=== PATIENT | female | born 1960 | race Caucasian/White ===

== ENCOUNTER 2022-08-25 07:00 | Outpatient (OUT) | payer MEDICARE, OTHER, SELFPAY ==
--- NOTE | 2022-08-25 07:06 | MR_ITS ---
The [address] [address] Patient Name: FEROZ DUTTA MRN: [id number] date: 1960 Sex: F Assigned Patient Location: MRI Current Patient Location: MRI Accession/Order Number: [id number] Exam Date: 08/25/2022 07:15 Report Date: 08/25/2022 12:49 At the request of: EZEKIEL DERAS Procedure: MR hip LT wo/w con HISTORY: Left hip pain since a fall on 07/29/2022. MRI left hip without and with contrast 08/25/2022. COMPARISON: Radiographs of the left hip 07/29/2022, CT scan left hip 07/31/2022 and whole-body bone scan 08/09/2022. TECHNIQUE: Multiple planar, multisequence MR images of the pelvis and left hip were obtained prior to and following the intravenous administration of gadolinium. FINDINGS: The bone marrow signal intensity is age appropriate. There is no MRI evidence of avascular necrosis or fracture of the right hip. The uterus is not visualized compatible with prior hysterectomy. There is a large serpiginous area of abnormal decreased T1 and increased STIR signal intensity within the subchondral bone of the majority of the anterosuperior and superior aspect of the left femoral head and this involves 100% of the weightbearing portion of the left femoral head. There is a large amount of diffuse bone marrow edema-like signal throughout the left femoral head/neck and heterogeneous enhancement in these regions. No significant collapse of the articular surface of the femoral head is seen. There appears to be a probable small nondisplaced tear of the anterior labrum of the left hip. However, no significant chondromalacia of the left hip is seen. There is a small joint effusion of the left hip and there is an enhancing synovitis of this joint effusion. There is a small amount of soft tissue edema and enhancement along the lateral aspect of the left greater trochanter. However, no significant gluteal tendinopathy is seen. No iliopsoas bursitis is identified. IMPRESSION: 1. 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 These findings account for the abnormalities seen on the prior CT scan of the left hip and the recent bone scan of 08/09/2022. However, no significant collapse of the articular surface of the femoral head is seen and there is no significant degenerative change of the left hip joint identified at this time. 2. Possible mild left greater trochanteric bursitis without evidence of significant gluteal tendinopathy. 3. There is no MRI evidence of avascular necrosis or fracture of the right hip. This report was placed in the wet read folder to be faxed and called to the referring clinician's office (Ezekiel Deras) on the afternoon of 08/25/2022 shortly after the study was presented for interpretation. Electronically authenticated by: EZEKIEL DAVIDSON Date: 08/25/2022 12:49
== END 2022-08-25 07:01 ==
LOC: MRI 07:01
PROVIDERS: PCP Family Medicine; Visit Provider Family Medicine
DX: M25.552 Pain in left hip (principal); M87.9 Osteonecrosis, unspecified
CPT/HCPCS: 73723; A9575

== ENCOUNTER 2022-08-29 18:23 | Outpatient (RCR) | payer MEDICARE, OTHER, SELFPAY | END 2022-09-22 23:59 | disposition home or self-care (01) | LOC: MM 18:23 | PROVIDERS: PCP Internal Medicine; Visit Provider Internal Medicine | DX: Z51.81 Encounter for therapeutic drug level monitoring (principal); Z79.01 Long term (current) use of anticoagulants; I82.409 Acute embolism and thrombosis of unspecified deep veins of unspecified lower extremity ==

== ENCOUNTER 2022-09-21 09:21 | Emergency (ER) | payer MEDICARE, OTHER, SELFPAY ==
[2022-09-21 09:24] VITALS: BP 135/91; PULSE 78; RESP 17; TEMP 36.7; O2SAT 98; BMI 21.9
[2022-09-21 09:25] VITALS: BP 135/91; O2SAT 98
--- NOTE | 2022-09-21 10:02 | CT_ITS ---
[address] [address] Patient Name: FEROZ DUTTA MRN: [id number] date: 1960 Sex: F Assigned Patient Location: ER Current Patient Location: ER Accession/Order Number: [id number] Exam Date: 09/21/2022 11:00 Report Date: 09/21/2022 11:37 At the request of: RENATO DOMINGUEZ Procedure: CT cervical spine wo con EXAM: CT cervical spine wo con HISTORY: neck pain, cervical radiculopathy COMPARISON: 02/21/2022 TECHNIQUE: Axial CT images were obtained of the cervical spine without intravenous contrast. Multiplanar reconstructions were performed. FINDINGS: No acute fracture. There is a slight retrolisthesis of C4 on C5, which is stable from the prior exam. Postoperative changes of an anterior cervical fusion present spanning C5-C7. There is severe bilateral neural foraminal stenosis at C5-C6 due to uncovertebral hypertrophy. There is moderate degenerative disc disease at C4-5 with bilateral uncovertebral hypertrophy causing moderate left and mild right neural foraminal stenosis. Unremarkable appearance of the paraspinal soft tissues. IMPRESSION: 1. No acute abnormality. 2. Chronic postoperative changes of an anterior cervical fusion spanning C5-C7. 3. Stable retrolisthesis of C4 on C5. 4. Severe bilateral neural foraminal stenosis at C5-C6, and moderate left and mild right neural foraminal stenosis at C4-C5. Electronically authenticated by: DEBBIE WATTS Date: 09/21/2022 11:37
--- NOTE | 2022-09-21 10:02 | XR_ITS ---
The [address] [address] Patient Name: FEROZ DUTTA MRN: [id number] date: 1960 Sex: F Assigned Patient Location: ER Current Patient Location: ER Accession/Order Number: [id number] Exam Date: 09/21/2022 11:00 Report Date: 09/21/2022 11:34 At the request of: RENATO DOMINGUEZ Procedure: XR acute abdomen series EXAMINATION: XR acute abdomen series 09/21/2022 8:30 AM PDT HISTORY: vomiting COMPARISONS: None. FINDINGS: Chest findings: Lines/tubes/other: None. Heart and mediastinum: Within expected limits. Bones: No acute osseous abnormality. Lungs: Small benign calcified granuloma in the right base. No pulmonary edema or evidence of pneumonia. Pleura: There is no significant pleural effusion or pneumothorax. Other: None. Abdominal findings: Nonobstructive bowel gas pattern. No pneumoperitoneum, pneumatosis, or portal venous gas. There are a view calcifications project over the abdomen. A left upper quadrant calcification may represent a small kidney stone. Stool burden is average. An IVC filter is present. Bilateral iliac stents. There are surgical clips in the right upper quadrant. IMPRESSION: No acute abnormality in the chest or abdomen. Electronically authenticated by: YA ROBLEDO Date: 09/21/2022 11:34
--- NOTE | 2022-09-21 10:40 | ED_ITS ---
HPI - General Adult General Chief complaint: Neck Pain/Injury Stated complaint: neck pain Time Seen by Provider: 09/21/22 09:33 Source: patient Mode of arrival: Wheelchair Limitations: no limitations History of Present Illness HPI narrative: patient complains of both neck/left trapezius pain and my gastroenteritis is acting up . She has chronic neck pain and underwent cervical spine fusion in the past. She had an acute flare and saw Dr viramontes in the office. He gave her IM Toradol and IM Solumedrol and she initially felt better but now the pain is back. She localizes it to the left posterolateral neck and into the left trapezius. No recent injury. No fever, chills or cough. She also complained that she developed nausea, vomiting and diarrhea last night. She said this happens a lot to me . No known ill exposures. No urinary symptoms. No blood in urine or stool. She ate toast this morning and was able to keep it down . Related Data Previous Rx's Medication Instructions Recorded methylprednisolone 4 mg tablets in 4 mg PO DAILY #21 ea 09/21/22 a dose pack (Medrol (Franco)) ondansetron 4 mg disintegrating 4 mg PO Q6H PRN nausea and 09/21/22 tablet vomiting #20 tabs orphenadrine citrate 100 mg 100 mg PO Q12H PRN neck pain #20 09/21/22 tablet,extended release tabs Allergies Allergy/AdvReac Type Severity Reaction Status Date / Time prochlorperazine Allergy Intermediate Unknown Verified 09/21/22 09:32 [From Compazine] ivp Allergy Severe Rash Uncoded 09/21/22 09:[facility] History Smoking status: Never smoker Exam Narrative Exam Narrative: Nurses notes and vital signs reviewed and patient is not hypoxic. afebrile General: Well-appearing and in no apparent distress. Skin: Warm, dry, no pallor noted. No rash. Head: Normocephalic, atraumatic. Neck: Supple, no lymphadenopathy. Diffuse tenderness throughout the left posterolateral neck and left trapezius. Eye: Pupils are equal, round and EOMI. No scleral icterus. Cardiovascular: Regular Rate and Rhythm without murmur, gallop or rub. Respiratory: No accessory muscle use or respiratory distress. Lungs are clear to auscultation, no wheezing, rales or rhonchi Back: No midline thoracic or lumbar vertebral tenderness. Musculoskeletal: normal ROM, no calf or popliteal tenderness, no lower extr emity edema/swelling. Ecchymosis without tenderness noted to the medial right ankle GI: Abdomen is soft, non-distended. Normal bowel sounds. Diffuse tenderness to palpation. No rebound, guarding, or rigidity noted. Neurological: A&O x4. No cranial nerve dysfunction observed. No truncal ataxia. Moves all extremities. Sensation intact. Psychiatric: Cooperative and interactive. Normal mood and affect. Constitutional Vital Signs - 24 hr 09/21/22 09:24 Temperature 98.0 F Pulse Rate [Monitor] 78 Respiratory Rate 17 Blood Pressure [Right Arm] 135/91 H Pulse Oximetry 98 Oxygen Delivery Method Room Air Course Vital Signs Vital signs: Vital Signs Temperature 98.0 F 09/21/22 09:24 Pulse Rate 78 09/21/22 09:24 Respiratory Rate 17 09/21/22 09:24 Blood Pressure 135/91 H 09/21/22 09:24 Pulse Oximetry 98 09/21/22 09:24 Oxygen Delivery Method Room Air 09/21/22 09:24 Temperature 98.0 F 09/21/22 09:24 Pulse Rate 78 09/21/22 09:24 Respiratory Rate 17 09/21/22 09:24 Blood Pressure 135/91 H 09/21/22 09:24 Pulse Oximetry 98 09/21/22 09:24 Oxygen Delivery Method Room Air 09/21/22 09:24 Medical Decision Making MDM Narrative Medical decision making narrative: Patient ordered to undergo CT scan of the cervical spine alone with xrays of the abdomen and chest. Blood and urine testing was also ordered. We got a urine sample but were unable to establish a peripheral IV. She was sent for CT cervical spine and xrays of the abdomen and chest. Phlebotomy once again tried to get blood samples for testing, including INR because of the ankle eccymosis. She received IM Toradol, IM Solu-medrol and ODT Zofran. CT revealed chronic changes and continued foraminal stenosis. Abd XRays were unremarkable. CBC normal. Urine negative. I spoke with Dr viramontes about his patient. He asked that we discharge the patient home and she can come to the office tomorrow if she needs more pain meds. Patient will be prescribed zofran, norflex and medrol dose pack. Discussed clear liquid diet until nausea and abdominal pain resolves. Close follow up with Dr Viramontes discussed. Lab Data Lab results reviewed: Yes I reviewed the patient's lab results Labs: Lab Results 09/21/22 Range/Units 11:34 WBC 8.9 (4.0-11.0) 10^3/uL RBC 3.63 L (4.20-5.40) 10^6/uL Hgb 11.8 L (12.0-16.0) g/dL Hct 35.4 L (36.0-48.0) % MCV 97.5 (81.0-99.0) fL MCH 32.5 (26.7-34.0) pg MCHC 33.3 (29.9-35.2) g/dL RDW 17.7 H (11.0-15.0) % Plt Count 252 (150-450) 10^3/uL MPV 10.8 (9.5-13.5) fL Neut % (Auto) 77.3 H (43.0-75.0) % Lymph % (Auto) 12.4 L (20.5-60.0) % [place] % (Auto) 8.9 (1.7-12.0) % Eos % (Auto) 0.3 L (0.9-7.0) % Baso % (Auto) 0.8 (0.2-2.0) % Neut # (Auto) 6.9 H (1.4-6.5) 10^3/uL Lymph # (Auto) 1.1 L (1.2-3.8) 10^3/uL [place] # (Auto) 0.8 (0.3-0.8) 10^3/uL Eos # (Auto) 0.0 (0.0-0.7) 10^3/uL Baso # (Auto) 0.1 (0.0-0.1) 10^3/uL Abs Immat Gran (auto) 0.03 (0.00-0.03) 10^3/uL Imm/Tot Granulo (auto) 0.3 (0.0-0.5) % PT 16.1 H (9.0-11.6) sec INR 1.56 Sodium 139 (136-145) mmol/L Potassium 4.0 (3.5-5.1) mmol/L Chloride 104 (98-107) mmol/L Carbon Dioxide 26.7 (21.0-32.0) mmol/L Anion Gap 12.3 BUN 22.0 H (7.0-18.0) mg/dL Creatinine 0.75 (0.55-1.02) mg/dL Est GFR ( Amer) >60 (>=60) Est GFR (Non-Af Amer) >60 (>=60) BUN/Creatinine Ratio 29.3 Glucose 85 (74-106) mg/dL Calcium 8.5 (8.5-10.1) mg/dL Total Bilirubin 0.2 (0.2-1.0) mg/dL AST 33 (15-37) U/L ALT 32 (14-59) U/L Alkaline Phosphatase 137 H (46-116) U/L Total Protein 7.2 (6.4-8.2) g/dL Albumin 3.1 L (3.4-5.0) g/dL Globulin 4.1 g/dL Albumin/Globulin Ratio 0.8 Lipase 249.0 (73.0-393.0) U/L Urine Color Lt. yellow (YELLOW) Urine Clarity Clear (CLEAR) Urine pH 6.5 (5.0-9.0) Ur Specific [place] <=1.005 A (1.005-1.025) Urine Protein Negative (NEG/TRACE) mg/dL Urine Glucose (UA) Negative (NEGATIVE) mg/dL Urine Ketones Negative (NEGATIVE) mg/dL Urine Occult Blood Negative (NEGATIVE) Urine Nitrite Negative (NEGATIVE) Urine Bilirubin Negative (NEGATIVE) Urine Urobilinogen 0.2 (0.2-1.0) EU/dL Ur Leukocyte Esterase Negative (NEGATIVE) Imaging Data Abdominal x-ray: Radiologist's impression: Patient Name: FEROZ DUTTA MRN: [id number] date: 1960 Sex: F Assigned Patient Location: ER Current Patient Location: ER Accession/Order Number: [id number] Exam Date: 09/21/2022 11:00 Report Date: 09/21/2022 11:34 At the request of: RENATO DOMINGUEZ Procedure: XR acute abdomen series EXAMINATION: XR acute abdomen series 09/21/2022 8:30 AM PDT HISTORY: vomiting COMPARISONS: None. FINDINGS: Chest findings: Lines/tubes/other: None. Heart and mediastinum: Within expected limits. Bones: No acute osseous abnormality. Lungs: Small benign calcified granuloma in the right base. No pulmonary edema or evidence of pneumonia. Pleura: There is no significant pleural effusion or pneumothorax. Other: None. Abdominal findings: Nonobstructive bowel gas pattern. No pneumoperitoneum, pneumatosis, or portal venous gas. There are a view calcifications project over the abdomen. A left upper quadrant calcification may represent a small kidney stone. Stool burden is average. An IVC filter is present. Bilateral iliac stents. There are surgical clips in the right upper quadrant. IMPRESSION: No acute abnormality in the chest or abdomen. Electronically authenticated by: YA ROBLEDO Date: 09/21/2022 11:34 ct cervical spine: Radiologist's impression: Patient Name: FEROZ DUTTA MRN: [facility]:[id number] date: 1960 Sex: F Assigned Patient Location: ER Current Patient Location: ER Accession/Order Number: [id number] Exam Date: 09/21/2022 11:00 Report Date: 09/21/2022 11:37 At the request of: RENATO DOMINGUEZ Procedure: CT cervical spine wo con EXAM: CT cervical spine wo con HISTORY: neck pain, cervical radiculopathy COMPARISON: 02/21/2022 TECHNIQUE: Axial CT images were obtained of the cervical spine without intravenous contrast. Multiplanar reconstructions were performed. FINDINGS: No acute fracture. There is a slight retrolisthesis of C4 on C5, which is stable from the prior exam. Postoperative changes of an anterior cervical fusion present spanning C5-C7. There is severe bilateral neural foraminal stenosis at C5-C6 due to uncovertebral hypertrophy. There is moderate degenerative disc disease at C4-5 with bilateral uncovertebral hypertrophy causing moderate left and mild right neural foraminal stenosis. Unremarkable appearance of the paraspinal soft tissues. IMPRESSION: 1. No acute abnormality. 2. Chronic postoperative changes of an anterior cervical fusion spanning C5-C7. 3. Stable retrolisthesis of C4 on C5. 4. Severe bilateral neural foraminal stenosis at C5-C6, and moderate left and mild right neural foraminal stenosis at C4-C5. Electronically authenticated by: DEBBIE WATTS Date: 09/21/2022 11:37 Discharge Plan Discharge Chief Complaint: Neck Pain/Injury Clinical Impression: Cervical radiculopathy, Neck pain, Nausea & vomiting Patient Disposition: Home, Self-Care Time of Disposition Decision: 13:01 Prescriptions / Home Meds: New ondansetron 4 mg tablet,disintegrating 4 mg PO Q6H PRN (Reason: nausea and vomiting) Qty: 20 0RF orphenadrine citrate 100 mg tablet extended release 100 mg PO Q12H PRN (Reason: neck pain) Qty: 20 0RF methylprednisolone [Medrol (Franco)] 4 mg tablets,dose pack 4 mg PO DAILY Qty: 21 0RF Rx Instructions: follow directions on the package regarding dosing Instructions: Acute Nausea and Vomiting (ED), Cervical Radiculopathy (ED), Neck Pain (ED) Stand Alone Forms: Portal Instructions Referrals: Travis Viramontes MD [Primary Care Provider] - 1 week
[2022-09-21 11:43] LABS: Basophils Absolute Auto 0.1 10^3/uL (0.0-0.1); Basophils Percent Auto 0.8 % (0.2-2.0); Bilirubin Urine NEGATIVE (NEGATIVE); Blood Urine NEGATIVE (NEGATIVE); Clarity Urine CLEAR (CLEAR); Color Urine LT. YELLOW (YELLOW); Eosinophils Percent Auto 0.3 % (0.9-7.0); Glucose Urine UA NEGATIVE (NEGATIVE); Hematocrit 35.4 % (36.0-48.0); Hemoglobin 11.8 g/dL (12.0-16.0); Immature Granulocytes Abs Auto 0.03 10^3/uL (0.00-0.03); Immature Granulocytes Pct Auto 0.3 % (0.0-0.5); Ketones Urine NEGATIVE (NEGATIVE); Leukocyte Esterase Urine NEGATIVE (NEGATIVE); Lymphocytes Absolute Auto 1.1 10^3/uL (1.2-3.8); Lymphocytes Percent Auto 12.4 % (20.5-60.0); Mean Corpuscular HGB Conc 33.3 g/dL (29.9-35.2); Mean Corpuscular Hemoglobin 32.5 pg (26.7-34.0); Mean Corpuscular Volume 97.5 fL (81.0-99.0); Mean Platelet Volume 10.8 fL (9.5-13.5); Monocytes Absolute Auto 0.8 10^3/uL (0.3-0.8); Monocytes Percent Auto 8.9 % (1.7-12.0); Neutrophils Absolute Auto 6.9 10^3/uL (1.4-6.5); Neutrophils Percent Auto 77.3 % (43.0-75.0); Nitrite Urine NEGATIVE (NEGATIVE); Platelet Count 252 10^3/uL (150-450); Protein Urine NEGATIVE (NEG/TRACE); Red Blood Count 3.63 10^6/uL (4.20-5.40); Red Cell Distribution Width 17.7 % (11.0-15.0); Specific Gravity Urine <=1.005 (1.005-1.025); Urobilinogen Urine 0.2 EU/dL (0.2-1.0); White Blood Count 8.9 10^3/uL (4.0-11.0); pH Urine 6.5 (5.0-9.0)
[2022-09-21 11:44] LABS: Urine Microscopic Indicated NO
[2022-09-21] MEDS: KETOROLAC TROMETHAMINE 60 MG/2 ML VIAL IM (11:48)
[2022-09-21] MEDS: METHYLPREDNISOLONE SOD SUCC PF 125 MG/2 ML VIAL IVP (11:48)
[2022-09-21] MEDS: ONDANSETRON 4 MG RAPDIS TABLET SL (11:48)
[2022-09-21 11:59] LABS: Alanine Aminotransferase 32 U/L (14-59); Albumin Globulin Ratio 0.8; Albumin Level 3.1 g/dL (3.4-5.0); Alkaline Phosphatase 137 U/L (46-116); Anion Gap 12.3; Aspartate Amino Transferase 33 U/L (15-37); BUN Creatinine Ratio 29.3; Bilirubin Total 0.2 mg/dL (0.2-1.0); Calcium 8.5 mg/dL (8.5-10.1); Carbon Dioxide 26.7 mmol/L (21.0-32.0); Chloride 104 mmol/L (98-107); Estimated GFR (African America >60 (>=60); Estimated GFR (Non-African Ame >60 (>=60); Globulin 4.1 g/dL; Glucose 85 mg/dL (74-106); Sodium 139 mmol/L (136-145); Total Protein 7.2 g/dL (6.4-8.2)
[2022-09-21 12:07] LABS: INR 1.56; Prothrombin Time 16.1 sec (9.0-11.6)
[2022-09-21 12:55] VITALS: BP 138/90; O2SAT 100
[2022-09-21] MEDS: HYDROMORPHONE HCL 1 MG/ML CARTRIDGE IM (12:55)
== END 2022-09-21 13:05 | disposition home or self-care (01) ==
PROVIDERS: Emergency Provider Emergency Medicine; PCP Family Medicine
DX: M54.12 Radiculopathy, cervical region (principal); M54.2 Cervicalgia; R11.2 Nausea with vomiting, unspecified; M48.02 Spinal stenosis, cervical region; R53.1 Weakness
CPT/HCPCS: 36415; 72125; 74022; 80053; 81003; 83690; 85025; 85610; 96374; 96375; 99285; J1170; J2930

== ENCOUNTER 2022-09-28 09:22 | Outpatient (RCR) | payer MEDICARE, OTHER, SELFPAY | END 2022-10-23 17:03 | disposition home or self-care (01) | LOC: MM 09:22 | PROVIDERS: PCP Internal Medicine; Visit Provider Internal Medicine | DX: Z51.81 Encounter for therapeutic drug level monitoring (principal); Z79.01 Long term (current) use of anticoagulants ==

== ENCOUNTER 2022-10-09 02:04 | Outpatient (REF) | payer MEDICARE, OTHER, SELFPAY ==
[2022-10-09 08:23] LABS: Estimated GFR (African America >60 (>=60); Estimated GFR (Non-African Ame >60 (>=60)
[2022-10-09 08:54] LABS: INR 1.87; Prothrombin Time 19.1 sec (9.0-11.6)
== END 2022-10-09 02:05 | disposition home or self-care (01) ==
LOC: LAB 02:04
PROVIDERS: PCP Internal Medicine; Visit Provider Family Medicine
DX: I82.409 Acute embolism and thrombosis of unspecified deep veins of unspecified lower extremity (principal); B99.9 Unspecified infectious disease
CPT/HCPCS: 36415; 82565; 84520; 85610

== ENCOUNTER 2022-10-11 01:35 | Outpatient (REF) | payer MEDICARE, OTHER, SELFPAY ==
[2022-10-11 08:13] LABS: INR 2.73; Prothrombin Time 27.3 sec (9.0-11.6)
== END 2022-10-11 01:36 | disposition home or self-care (01) ==
LOC: LAB 01:35
PROVIDERS: PCP Internal Medicine; Visit Provider Family Medicine
DX: I82.409 Acute embolism and thrombosis of unspecified deep veins of unspecified lower extremity (principal)
CPT/HCPCS: 36415; 85610

== ENCOUNTER 2022-10-13 03:32 | Outpatient (REF) | payer MEDICARE, OTHER, SELFPAY ==
[2022-10-13 09:14] LABS: INR 2.11; Prothrombin Time 21.4 sec (9.0-11.6)
== END 2022-10-13 03:33 | disposition home or self-care (01) ==
LOC: LAB 03:32
PROVIDERS: PCP Internal Medicine; Visit Provider Family Medicine
DX: I82.409 Acute embolism and thrombosis of unspecified deep veins of unspecified lower extremity (principal)
CPT/HCPCS: 36415; 85610

== ENCOUNTER 2022-10-16 02:23 | Outpatient (REF) | payer MEDICARE, OTHER, SELFPAY ==
[2022-10-16 11:23] LABS: INR 2.38
== END 2022-10-16 02:24 | disposition home or self-care (01) ==
LOC: LAB 02:23
PROVIDERS: PCP Internal Medicine; Visit Provider Family Medicine
DX: I82.409 Acute embolism and thrombosis of unspecified deep veins of unspecified lower extremity (principal)
CPT/HCPCS: 36415; 85610

== ENCOUNTER 2022-10-17 07:37 | Outpatient (REF) | payer MEDICARE, OTHER, SELFPAY ==
[2022-10-17 09:01] LABS: Basophils Absolute Auto 0.1 10^3/uL (0.0-0.1); Basophils Percent Auto 1.7 % (0.2-2.0); Eosinophils Absolute Auto 0.1 10^3/uL (0.0-0.7); Hematocrit 37.4 % (36.0-48.0); Hemoglobin 12.2 g/dL (12.0-16.0); Immature Granulocytes Abs Auto 0.02 10^3/uL (0.00-0.03); Immature Granulocytes Pct Auto 0.4 % (0.0-0.5); Lymphocytes Absolute Auto 1.6 10^3/uL (1.2-3.8); Lymphocytes Percent Auto 30.4 % (20.5-60.0); Mean Corpuscular HGB Conc 32.6 g/dL (29.9-35.2); Mean Corpuscular Hemoglobin 32.7 pg (26.7-34.0); Mean Corpuscular Volume 100.3 fL (81.0-99.0); Mean Platelet Volume 10.7 fL (9.5-13.5); Monocytes Absolute Auto 0.6 10^3/uL (0.3-0.8); Monocytes Percent Auto 11.9 % (1.7-12.0); Neutrophils Absolute Auto 2.9 10^3/uL (1.4-6.5); Neutrophils Percent Auto 53.6 % (43.0-75.0); Platelet Count 349 10^3/uL (150-450); Red Blood Count 3.73 10^6/uL (4.20-5.40); Red Cell Distribution Width 16.3 % (11.0-15.0); White Blood Count 5.4 10^3/uL (4.0-11.0)
[2022-10-17 11:59] LABS: Estimated GFR (African America >60 (>=60); Estimated GFR (Non-African Ame >60 (>=60)
== END 2022-10-17 07:38 | disposition home or self-care (01) ==
LOC: LAB 07:37
PROVIDERS: PCP Internal Medicine; Visit Provider Family Medicine
DX: B99.9 Unspecified infectious disease (principal)
CPT/HCPCS: 36415; 82565; 84520; 85025

== ENCOUNTER 2022-10-19 07:05 | Outpatient (OUT) | payer MEDICARE, OTHER, SELFPAY ==
[2022-10-19 07:40] LABS: INR 3.27; Prothrombin Time 32.4 sec (9.0-11.6)
== END 2022-10-19 07:06 | disposition home or self-care (01) ==
LOC: LAB 10-20 08:00
PROVIDERS: Visit Provider Family Medicine
DX: I82.409 Acute embolism and thrombosis of unspecified deep veins of unspecified lower extremity (principal)
CPT/HCPCS: 36415; 85610

== ENCOUNTER 2022-10-24 09:30 | Outpatient (RCR) | payer MEDICARE, OTHER, SELFPAY | END 2022-11-23 17:38 | disposition home or self-care (01) | LOC: MM 09:30 | PROVIDERS: Visit Provider Internal Medicine | DX: Z51.81 Encounter for therapeutic drug level monitoring (principal); Z79.01 Long term (current) use of anticoagulants ==

== ENCOUNTER 2022-11-13 11:22 | Outpatient (REF) | payer MEDICARE, OTHER, SELFPAY ==
[2022-11-13 12:20] LABS: Basophils Absolute Auto 0.1 10^3/uL (0.0-0.1); Basophils Percent Auto 0.9 % (0.2-2.0); Eosinophils Absolute Auto 0.5 10^3/uL (0.0-0.7); Eosinophils Percent Auto 7.2 % (0.9-7.0); Hematocrit 30.9 % (36.0-48.0); Hemoglobin 9.7 g/dL (12.0-16.0); Immature Granulocytes Abs Auto 0.04 10^3/uL (0.00-0.03); Immature Granulocytes Pct Auto 0.6 % (0.0-0.5); Lymphocytes Absolute Auto 1.4 10^3/uL (1.2-3.8); Lymphocytes Percent Auto 22.5 % (20.5-60.0); Mean Corpuscular HGB Conc 31.4 g/dL (29.9-35.2); Mean Corpuscular Hemoglobin 32.6 pg (26.7-34.0); Mean Corpuscular Volume 103.7 fL (81.0-99.0); Mean Platelet Volume 10.4 fL (9.5-13.5); Monocytes Absolute Auto 0.6 10^3/uL (0.3-0.8); Monocytes Percent Auto 9.4 % (1.7-12.0); Neutrophils Absolute Auto 3.8 10^3/uL (1.4-6.5); Neutrophils Percent Auto 59.4 % (43.0-75.0); Platelet Count 418 10^3/uL (150-450); Red Blood Count 2.98 10^6/uL (4.20-5.40); Red Cell Distribution Width 15.4 % (11.0-15.0); White Blood Count 6.4 10^3/uL (4.0-11.0)
[2022-11-13 12:24] LABS: INR 1.24
[2022-11-13 12:40] LABS: Alanine Aminotransferase 58 U/L (14-59); Albumin Globulin Ratio 0.5; Albumin Level 2.4 g/dL (3.4-5.0); Alkaline Phosphatase 282 U/L (46-116); Anion Gap 12.8; Aspartate Amino Transferase 31 U/L (15-37); BUN Creatinine Ratio 16.9; Bilirubin Total 0.2 mg/dL (0.2-1.0); Calcium 9.2 mg/dL (8.5-10.1); Carbon Dioxide 22.8 mmol/L (21.0-32.0); Chloride 104 mmol/L (98-107); Estimated GFR (African America >60 (>=60); Estimated GFR (Non-African Ame >60 (>=60); Globulin 4.4 g/dL; Glucose 93 mg/dL (74-106); Potassium 3.6 mmol/L (3.5-5.1); Sodium 136 mmol/L (136-145); Total Protein 6.8 g/dL (6.4-8.2)
== END 2022-11-13 11:23 | disposition home or self-care (01) ==
LOC: LAB 11:22
PROVIDERS: Visit Provider Family Medicine
DX: Z79.01 Long term (current) use of anticoagulants (principal)
CPT/HCPCS: 36415; 80053; 85025; 85610

== ENCOUNTER 2022-11-17 04:18 | Outpatient (REF) | payer MEDICARE, OTHER, SELFPAY ==
[2022-11-17 13:56] LABS: C Reactive Protein 0.9 mg/dL (<=1.0)
[2022-11-17 14:00] LABS: INR 2.62; Prothrombin Time 26.3 sec (9.0-11.6)
== END 2022-11-17 04:19 | disposition home or self-care (01) ==
LOC: LAB 04:18
PROVIDERS: Visit Provider Family Medicine
DX: Z79.01 Long term (current) use of anticoagulants (principal)
CPT/HCPCS: 36415; 85610; 86140

== ENCOUNTER 2022-11-20 09:35 | Outpatient (REF) | payer MEDICARE, OTHER, SELFPAY ==
[2022-11-20 12:14] LABS: Erythrocyte Sedimentation Rate 107 mm/hr (<=30)
== END 2022-11-20 09:36 | disposition home or self-care (01) ==
LOC: LAB 09:35
PROVIDERS: Visit Provider Family Medicine
DX: Z79.01 Long term (current) use of anticoagulants (principal)
CPT/HCPCS: 36415; 85652

== ENCOUNTER 2022-11-22 09:37 | Outpatient (REF) | payer MEDICARE, OTHER, SELFPAY ==
[2022-11-22 10:32] LABS: Erythrocyte Sedimentation Rate 80 mm/hr (<=30)
[2022-11-22 13:05] LABS: C Reactive Protein <0.2 mg/dL (<=1.0)
== END 2022-11-22 09:38 | disposition home or self-care (01) ==
LOC: LAB 09:37
PROVIDERS: Visit Provider Family Medicine
DX: M48.02 Spinal stenosis, cervical region (principal); Z47.89 Encounter for other orthopedic aftercare
CPT/HCPCS: 36415; 85652; 86140

== ENCOUNTER 2022-11-24 10:29 | Outpatient (RCR) | payer MEDICARE, OTHER, SELFPAY | END 2022-12-22 16:56 | disposition home or self-care (01) | LOC: MM 10:29 | PROVIDERS: Visit Provider Internal Medicine | DX: Z51.81 Encounter for therapeutic drug level monitoring (principal); Z79.01 Long term (current) use of anticoagulants ==

== ENCOUNTER 2022-12-14 10:11 | Inpatient (IN) | payer MEDICARE, OTHER, SELFPAY ==
[2022-12-14 11:00] VITALS: BP 146/85; PULSE 89; RESP 18; TEMP 36.8; O2SAT 98; BMI 20.2
[2022-12-14] MEDS: MEPERIDINE HCL/PF 25 MG/ML VIAL 12.5 MG IVP ×3 (12:17→22:08)
[2022-12-14] MEDS: ONDANSETRON PF 4 MG/2 ML VIAL IV ×3 (12:17→22:08)
--- NOTE | 2022-12-14 12:30 | CT_ITS ---
[address] [address] Patient Name: FEORZ DUTTA MRN: [id number] date: 1960 Sex: F Assigned Patient Location: Current Patient Location: Accession/Order Number: [id number] Exam Date: 12/14/2022 12:26 Report Date: 12/14/2022 12:52 At the request of: EZEKIEL CHENEY Procedure: CT abdomen pelvis wo con EXAM: CT abdomen pelvis wo con; [id number] REASON FOR EXAM: flank pain TECHNIQUE: Helical CT images of the abdomen and pelvis were obtained without IV contrast. Multiplanar reformats were generated at the scanner. Dose reduction technique used: Automated exposure control and/or adjustment of the mA and/or kV according to patient size and/or use of iterative reconstruction technique. COMPARISON: CT abdomen/pelvis 06/26/2022 and 05/30/2022. FINDINGS: Note: Compared with a contrast-enhanced CT exam, noncontrast images are relatively insensitive for detection of solid organ and vascular abnormalities. Visualized Chest: No pleural effusion or any significant pulmonary findings. Abdomen: Liver: Within normal limits. Gallbladder: Resected. Bile Ducts: Within expected limits given patient's age and postcholecystectomy Pancreas: No ductal dilatation or inflammatory changes. Spleen: No splenomegaly. Adrenals: No nodules. Kidneys: -Single nonobstructing 4 mm stone in the lower pole of the left kidney. -No right-sided stones or hydronephrosis. Vascular: -An infrarenal IVC filter is present. -IVC/bilateral common iliac vein stent is present. The stent has a similar appearance compared with 05/30/2022. -No aortic aneurysm. Lymph Nodes: No adenopathy. Abdominal Wall: No hernia or mass. Pelvis: No mass or adenopathy. Bowel/Peritoneal Cavity/Mesentery: -No bowel obstruction or significant ileus. -No acute inflammatory changes. -No free air or free fluid. Musculoskeletal: No acute fracture or suspicious osseous lesion. CT/CT abdomen pelvis wo con IMPRESSION: 1. No acute intra-abdominal abnormality demonstrated. 2. Nonobstructing 4 mm stone in the left kidney. Electronically authenticated by: YA ROBLEDO Date: 12/14/2022 12:52
[2022-12-14] MEDS: LACTATED RINGER'S SOLUTION 1,000 ML 100 ML IV (12:58)
[2022-12-14] MEDS: AMPICILLIN SODIUM/SULBACTAM NA 1.5 GM in 0.9 % SODIUM CHLORIDE 50 ML IV ×2 (12:59→19:40)
[2022-12-14 14:34] LABS: Basophils Absolute Auto 0.1 10^3/uL (0.0-0.1); Eosinophils Absolute Auto 0.1 10^3/uL (0.0-0.7); Eosinophils Percent Auto 1.3 % (0.9-7.0); Hematocrit 42.5 % (36.0-48.0); Hemoglobin 13.3 g/dL (12.0-16.0); Immature Granulocytes Abs Auto 0.03 10^3/uL (0.00-0.03); Immature Granulocytes Pct Auto 0.4 % (0.0-0.5); Lymphocytes Absolute Auto 1.6 10^3/uL (1.2-3.8); Lymphocytes Percent Auto 23.4 % (20.5-60.0); Mean Corpuscular HGB Conc 31.3 g/dL (29.9-35.2); Mean Corpuscular Hemoglobin 31.7 pg (26.7-34.0); Mean Corpuscular Volume 101.4 fL (81.0-99.0); Mean Platelet Volume 11.5 fL (9.5-13.5); Monocytes Absolute Auto 0.4 10^3/uL (0.3-0.8); Monocytes Percent Auto 6.2 % (1.7-12.0); Neutrophils Absolute Auto 4.7 10^3/uL (1.4-6.5); Neutrophils Percent Auto 67.7 % (43.0-75.0); Platelet Count 210 10^3/uL (150-450); Red Blood Count 4.19 10^6/uL (4.20-5.40); Red Cell Distribution Width 13.6 % (11.0-15.0); White Blood Count 6.9 10^3/uL (4.0-11.0)
[2022-12-14 14:38] LABS: Ammonia 27 umol/L (11-32)
[2022-12-14 14:56] LABS: INR 1.89; Partial Thromboplastin Time 34.7 sec (22.3-36.2); Prothrombin Time 19.3 sec (9.0-11.6)
[2022-12-14 14:58] LABS: Alanine Aminotransferase 20 U/L (14-59); Albumin Globulin Ratio 0.9; Albumin Level 3.6 g/dL (3.4-5.0); Alkaline Phosphatase 180 U/L (46-116); Amylase 48 U/L (25-115); Anion Gap 14.4; Aspartate Amino Transferase 26 U/L (15-37); BUN Creatinine Ratio 15.2; Bilirubin Total 0.4 mg/dL (0.2-1.0); Carbon Dioxide 24.9 mmol/L (21.0-32.0); Chloride 103 mmol/L (98-107); Estimated GFR (African America >60 (>=60); Estimated GFR (Non-African Ame >60 (>=60); Globulin 3.9 g/dL; Glucose 77 mg/dL (74-106); Potassium 3.3 mmol/L (3.5-5.1); Sodium 139 mmol/L (136-145); Total Protein 7.5 g/dL (6.4-8.2)
[2022-12-14 15:06] LABS: Magnesium 1.5 mg/dL (1.8-2.4)
[2022-12-14 15:42] VITALS: BP 153/93; PULSE 83; RESP 15; TEMP 36.9; O2SAT 96
[2022-12-14] MEDS: HYOSCYAMINE SULFATE 0.125 MG TAB.SUBL SL (16:39)
[2022-12-14 16:47] VITALS: O2SAT 96
[2022-12-14 16:48] VITALS: BP 133/86
[2022-12-14 19:39] LABS: Bilirubin Urine NEGATIVE (NEGATIVE); Blood Urine NEGATIVE (NEGATIVE); Clarity Urine CLEAR (CLEAR); Color Urine LT. YELLOW (YELLOW); Glucose Urine UA NEGATIVE (NEGATIVE); Ketones Urine TRACE mg/dL (NEGATIVE); Leukocyte Esterase Urine NEGATIVE (NEGATIVE); Nitrite Urine NEGATIVE (NEGATIVE); Protein Urine NEGATIVE (NEG/TRACE); Specific Gravity Urine 1.015 (1.005-1.025); Urobilinogen Urine 0.2 EU/dL (0.2-1.0); pH Urine 7.5 (5.0-9.0)
[2022-12-14 19:52] LABS: Bacteria Urine NONE SEEN #/HPF (NONE SEEN); Cast Seen? NONE SEEN #/LPF (NONE SEEN); Crystals Seen? None Seen #/HPF (None Seen); Mucus Urine NONE SEEN (NONE SEEN); RBC Urine 0-2 #/HPF (0-2); Squamous Epithelial Cell Urine RARE #/LPF (NONE/RARE); Urine Culture Indicated NO; WBC Urine NONE SEEN #/HPF (NONE SEEN)
[2022-12-14] MEDS: WARFARIN SODIUM 5 MG TABLET PO (19:54)
[2022-12-14 20:41] VITALS: O2SAT 96
[2022-12-14 20:48] VITALS: BP 137/83; PULSE 80; RESP 18; TEMP 36.7; O2SAT 99
[2022-12-14] MEDS: HYDROXYZINE PAMOATE 25 MG CAPSULE PO (21:05)
[2022-12-14] MEDS: GABAPENTIN 400 MG CAPSULE PO (21:05)
[2022-12-14] MEDS: TEMAZEPAM 15 MG CAPSULE 30 MG PO (21:05)
[2022-12-14] MEDS: CYCLOBENZAPRINE HCL 10 MG TABLET PO (21:06)
[2022-12-14] MEDS: L. ACIDOPHILUS/L.BULGARICUS 1 PACKET GRAN.PACK PO (21:06)
[2022-12-15] VITALS (11 sets, daily range): BP systolic 125–144; BP diastolic 82–86; PULSE 82–91; RESP 18–20; TEMP 36.4–36.8; O2SAT 94–99
[2022-12-15] MEDS: AMPICILLIN SODIUM/SULBACTAM NA 1.5 GM in 0.9 % SODIUM CHLORIDE 50 ML IV ×5 (00:15→23:27)
[2022-12-15] MEDS: LACTATED RINGER'S SOLUTION 1,000 ML 100 ML IV ×3 (00:24→21:38)
[2022-12-15] MEDS: MEPERIDINE HCL/PF 25 MG/ML VIAL 12.5 MG IVP ×5 (03:10→21:10)
[2022-12-15] MEDS: ONDANSETRON PF 4 MG/2 ML VIAL IV ×5 (03:10→21:10)
[2022-12-15 04:49] LABS: Basophils Absolute Auto 0.1 10^3/uL (0.0-0.1); Basophils Percent Auto 1.2 % (0.2-2.0); Eosinophils Absolute Auto 0.2 10^3/uL (0.0-0.7); Eosinophils Percent Auto 2.9 % (0.9-7.0); Hematocrit 37.5 % (36.0-48.0); Hemoglobin 12.1 g/dL (12.0-16.0); Immature Granulocytes Abs Auto 0.01 10^3/uL (0.00-0.03); Immature Granulocytes Pct Auto 0.2 % (0.0-0.5); Lymphocytes Absolute Auto 1.7 10^3/uL (1.2-3.8); Lymphocytes Percent Auto 28.2 % (20.5-60.0); Mean Corpuscular HGB Conc 32.3 g/dL (29.9-35.2); Mean Corpuscular Hemoglobin 31.8 pg (26.7-34.0); Mean Corpuscular Volume 98.7 fL (81.0-99.0); Mean Platelet Volume 11.3 fL (9.5-13.5); Monocytes Absolute Auto 0.7 10^3/uL (0.3-0.8); Monocytes Percent Auto 11.4 % (1.7-12.0); Neutrophils Absolute Auto 3.3 10^3/uL (1.4-6.5); Neutrophils Percent Auto 56.1 % (43.0-75.0); Platelet Count 205 10^3/uL (150-450); Red Cell Distribution Width 13.5 % (11.0-15.0)
[2022-12-15 05:00] LABS: Anion Gap 8.9; BUN Creatinine Ratio 11.5; Calcium 8.1 mg/dL (8.5-10.1); Carbon Dioxide 27.7 mmol/L (21.0-32.0); Chloride 107 mmol/L (98-107); Estimated GFR (African America >60 (>=60); Estimated GFR (Non-African Ame >60 (>=60); Glucose 89 mg/dL (74-106); Potassium 3.6 mmol/L (3.5-5.1); Sodium 140 mmol/L (136-145)
[2022-12-15] MEDS: CYCLOBENZAPRINE HCL 10 MG TABLET PO ×3 (05:26→21:12)
[2022-12-15] MEDS: HYOSCYAMINE SULFATE 0.125 MG TAB.SUBL SL ×3 (07:48→16:46)
[2022-12-15] MEDS: ORPHENADRINE CITRATE 100 MG TABLET.ER PO ×2 (07:48→21:12)
[2022-12-15] MEDS: HYDROXYZINE PAMOATE 25 MG CAPSULE PO ×3 (07:49→21:12)
--- NOTE | 2022-12-15 08:16 | P.PN_ITS ---
Progress Note: Subjective Subjective Interval history: Patient with a history of recurrent diverticulitis. Bow increasing abdominal pain. Hyperemesis at home. Unable to controlled medications. In office yesterday exam consistent with acute diverticulitis. Patient admitted for work- up and treatment of same. Pain persisting today, not progressed but not improved Exam Constitutional Vital Signs, click to edit/add: Last Vital Signs Temp 97.5 F L 12/15/22 05:29 Pulse 82 12/15/22 05:29 Resp 20 12/15/22 05:29 BP 125/82 12/15/22 05:29 Pulse Ox 94 L 12/15/22 07:55 O2 Del Method Room Air 12/15/22 05:29 Common normals: apparent distress Respiratory Common normals: normal respiratory effort Cardio Common normals: regular rate, regular rhythm and no murmurs GI Common normals: soft to palpation and no masses; tender Palpation: tender Progress Note: Objective Labs Labs: Short CBC 12/14/22 12/15/22 Range/Units 14:04 04:39 WBC 6.9 6.0 (4.0-11.0) 10^3/uL Hgb 13.3 12.1 (12.0-16.0) g/dL Hct 42.5 37.5 (36.0-48.0) % Plt Count 210 205 (150-450) 10^3/uL BMP 12/14/22 12/15/22 14:04 04:39 Sodium 139 140 Potassium 3.3 L 3.6 Chloride 103 107 Carbon Dioxide 24.9 27.7 BUN 10.0 7.0 Creatinine 0.66 0.61 Glucose 77 89 Calcium 9.0 8.1 L Liver Function 12/14/22 Range/Units 14:04 Total Bilirubin 0.4 (0.2-1.0) mg/dL AST 26 (15-37) U/L ALT 20 (14-59) U/L Alkaline Phosphatase 180 H (46-116) U/L Albumin 3.6 (3.4-5.0) g/dL Urine 12/14/22 Range/Units 19:30 Urine Color Lt. yellow (YELLOW) Urine Clarity Clear (CLEAR) Urine pH 7.5 (5.0-9.0) Ur Specific [place] 1.015 (1.005-1.025) Urine Protein Negative (NEG/TRACE) mg/dL Urine Glucose (UA) Negative (NEGATIVE) mg/dL Progress Note: A&P Assessment and Plan (1) Diverticulitis: (2) Gastroenteritis: (3) Protein S deficiency: Plan Acute vent diverticulitis with increasing abdominal pain and failed outpatient treatment. Not noted on CT scan but unable to do with contrast secondary to contrast allergy. With significant abdominal tenderness continue with patient on IV antibiotics. If stable between today and tomorrow possible discharge to home tomorrow. Protein S deficiency-monitor INR Recent cervical disc surgery-improved Hypokalemia-improved Hypocalcemia-supplement Hypomagnesemia-supplement Unable to improve abdominal pain and continuing IV antibiotics and adjustment in medications we will change patient to inpatient status
[2022-12-15] MEDS: GABAPENTIN 100 MG CAPSULE PO (08:34)
[2022-12-15] MEDS: GABAPENTIN 400 MG CAPSULE PO ×2 (08:34→21:11)
[2022-12-15] MEDS: MAGNESIUM OXIDE 400 MG TABLET PO ×2 (08:34→21:12)
[2022-12-15] MEDS: L. ACIDOPHILUS/L.BULGARICUS 1 PACKET GRAN.PACK PO ×2 (08:34→21:11)
[2022-12-15 08:53] LABS: INR 1.71; Prothrombin Time 17.6 sec (9.0-11.6)
--- NOTE | 2022-12-15 09:12 | SWNOTE1 ---
Pt has [facility].
--- NOTE | 2022-12-15 11:37 | PT.DAILY ---
Physical Therapy Daily Note PT Daily Note/Assess Start: 12/15/22 11:32 Freq: Status: Active Protocol: Document 12/15/22 11:32 JASON (Rec: 12/15/22 11:34 JASON [id number]) Visit Not Completed Visit Not Completed Visit Not Completed Due to: Other Other Reason Visit Not Completed Pt pleasantly declines PT at this time. Has been up ad miguel ángel in room and halls. Declines any skilled needs at this time . Physical Therapy Daily Note/Assessment Time In/Time Out Time In 10:53 Time Out 10:55 GG. Functional Abilities and Goals-Complete for Swing Bed Patients Only [id number]. Self-Care [id number]. Mobility
--- NOTE | 2022-12-15 12:26 | CM.NOTE ---
Important Message From Medicare discussed with pt, pt verbalizes understanding and signs paper. Original given to pt and copy placed on pt's chart.
[2022-12-15] MEDS: CALCIUM CARBONATE 500 MG (200MG ELEMENTAL) TAB CHEW PO ×2 (14:33→21:12)
[2022-12-15] MEDS: AMLODIPINE BESYLATE 5 MG TABLET PO (14:33)
[2022-12-15] MEDS: WARFARIN SODIUM 5 MG TABLET PO (17:57)
--- NOTE | 2022-12-15 18:34 | DIETREC ---
Recommend 237 mL Ensure HP BID d/t weight loss, reduced PO intakes x >1 week.
[2022-12-15] MEDS: TEMAZEPAM 15 MG CAPSULE 30 MG PO (21:11)
[2022-12-16] VITALS (13 sets, daily range): BP systolic 123–139; BP diastolic 80–91; PULSE 79–87; RESP 16–20; TEMP 36.6–36.8; O2SAT 92–99
[2022-12-16] MEDS: ONDANSETRON PF 4 MG/2 ML VIAL IV ×4 (04:29→19:56)
[2022-12-16] MEDS: MEPERIDINE HCL/PF 25 MG/ML VIAL 12.5 MG IVP ×2 (04:29→08:44)
[2022-12-16] MEDS: AMPICILLIN SODIUM/SULBACTAM NA 1.5 GM in 0.9 % SODIUM CHLORIDE 50 ML IV ×4 (05:42→23:59)
[2022-12-16] MEDS: CALCIUM CARBONATE 500 MG (200MG ELEMENTAL) TAB CHEW PO ×3 (05:42→22:51)
[2022-12-16] MEDS: CYCLOBENZAPRINE HCL 10 MG TABLET PO ×3 (05:42→22:51)
[2022-12-16 05:57] LABS: Basophils Absolute Auto 0.1 10^3/uL (0.0-0.1); Eosinophils Absolute Auto 0.2 10^3/uL (0.0-0.7); Eosinophils Percent Auto 3.8 % (0.9-7.0); Hematocrit 37.5 % (36.0-48.0); Hemoglobin 11.8 g/dL (12.0-16.0); Immature Granulocytes Abs Auto 0.01 10^3/uL (0.00-0.03); Immature Granulocytes Pct Auto 0.2 % (0.0-0.5); Lymphocytes Absolute Auto 1.6 10^3/uL (1.2-3.8); Lymphocytes Percent Auto 27.4 % (20.5-60.0); Mean Corpuscular HGB Conc 31.5 g/dL (29.9-35.2); Mean Corpuscular Hemoglobin 31.7 pg (26.7-34.0); Mean Corpuscular Volume 100.8 fL (81.0-99.0); Mean Platelet Volume 11.4 fL (9.5-13.5); Monocytes Absolute Auto 0.7 10^3/uL (0.3-0.8); Monocytes Percent Auto 12.4 % (1.7-12.0); Neutrophils Absolute Auto 3.2 10^3/uL (1.4-6.5); Neutrophils Percent Auto 55.2 % (43.0-75.0); Platelet Count 199 10^3/uL (150-450); Red Blood Count 3.72 10^6/uL (4.20-5.40); Red Cell Distribution Width 13.4 % (11.0-15.0); White Blood Count 5.7 10^3/uL (4.0-11.0)
[2022-12-16 06:00] LABS: Anion Gap 8.8; Calcium 8.7 mg/dL (8.5-10.1); Carbon Dioxide 29.8 mmol/L (21.0-32.0); Chloride 106 mmol/L (98-107); Estimated GFR (African America >60 (>=60); Estimated GFR (Non-African Ame >60 (>=60); Glucose 86 mg/dL (74-106); Potassium 3.6 mmol/L (3.5-5.1); Sodium 141 mmol/L (136-145)
[2022-12-16 06:10] LABS: INR 1.84; Prothrombin Time 18.8 sec (9.0-11.6)
[2022-12-16] MEDS: LACTATED RINGER'S SOLUTION 1,000 ML 100 ML IV ×2 (08:43→21:41)
[2022-12-16] MEDS: AMLODIPINE BESYLATE 5 MG TABLET PO (08:44)
[2022-12-16] MEDS: GABAPENTIN 400 MG CAPSULE PO ×2 (08:44→22:15)
[2022-12-16] MEDS: HYOSCYAMINE SULFATE 0.125 MG TAB.SUBL SL ×3 (08:44→17:11)
[2022-12-16] MEDS: L. ACIDOPHILUS/L.BULGARICUS 1 PACKET GRAN.PACK PO ×2 (08:44→22:15)
[2022-12-16] MEDS: MAGNESIUM OXIDE 400 MG TABLET PO ×2 (08:44→22:15)
[2022-12-16] MEDS: GABAPENTIN 100 MG CAPSULE PO (08:44)
[2022-12-16] MEDS: HYDROXYZINE PAMOATE 25 MG CAPSULE PO ×3 (08:49→23:59)
--- NOTE | 2022-12-16 11:34 | PM.PN ---
Progress Note: Subjective Subjective Interval history: Patient with a history of recurrent diverticulitis, protein S deficiency. No overnight events. Pain persisting today, not progressed but not improved. Belching and passing gas, had loose BM yesterday. No vomiting. Exam Narrative Exam Narrative: General: Patient is alert, and oriented to person, place and time with normal affect, proper hygiene Head: atraumatic, acephalic Heart: Normal rate and rhythm, no murmurs/rubs/gallops Lungs: no audible wheezes, crackles and normal breath sounds all lung vickers Abdomen: hyperactive bowel sounds, mild distension, No palpable masses, no organomegaly, no rebound/guarding/ or rigidity Musculoskeletal: ROM is limited due to being in hospital bed, no swelling bilateral lower extremities Neuro: CN II-X grossly intact, normal sensation upper and lower extremities Constitutional Vital Signs, click to edit/add: Last Vital Signs Temp 98.0 F 12/16/22 05:46 Pulse 84 12/16/22 05:46 Resp 16 12/16/22 05:46 BP 123/85 12/16/22 05:46 Pulse Ox 98 12/16/22 08:31 O2 Del Method Room Air 12/16/22 05:46 Progress Note: Objective Labs Labs: Short CBC 12/16/22 Range/Units 05:10 WBC 5.7 (4.0-11.0) 10^3/uL Hgb 11.8 L (12.0-16.0) g/dL Hct 37.5 (36.0-48.0) % Plt Count 199 (150-450) 10^3/uL BMP 12/16/22 05:10 Sodium 141 Potassium 3.6 Chloride 106 Carbon Dioxide 29.8 BUN 7.0 Creatinine 0.70 Glucose 86 Calcium 8.7 Progress Note: A&P Assessment and Plan (1) Diverticulitis: Assessment and Plan: continue pain control, IV zosyn, bland diet, advance as tolerated (2) Gastroenteritis: Assessment and Plan: add Protonix 40mg IV daily (3) Protein S deficiency: Assessment and Plan: monitor INR daily, continue coumadin Plan full code continue coumadin likely discharge home tomorrow on oral antibiotics.
[2022-12-16] MEDS: PANTOPRAZOLE SODIUM 40 MG VIAL IV (11:58)
[2022-12-16] MEDS: MEPERIDINE HCL/PF 25 MG/ML VIAL IVP ×2 (12:46→19:56)
[2022-12-16] MEDS: WARFARIN SODIUM 5 MG TABLET PO (17:11)
[2022-12-16] MEDS: TEMAZEPAM 15 MG CAPSULE 30 MG PO (22:51)
[2022-12-17] VITALS: O2SAT 96
[2022-12-17 02:00] VITALS: PULSE 87; O2SAT 96
[2022-12-17 04:45] VITALS: O2SAT 97
[2022-12-17 05:10] LABS: Basophils Absolute Auto 0.1 10^3/uL (0.0-0.1); Basophils Percent Auto 1.1 % (0.2-2.0); Eosinophils Absolute Auto 0.3 10^3/uL (0.0-0.7); Eosinophils Percent Auto 4.3 % (0.9-7.0); Hematocrit 37.7 % (36.0-48.0); Hemoglobin 12.2 g/dL (12.0-16.0); Immature Granulocytes Abs Auto 0.02 10^3/uL (0.00-0.03); Immature Granulocytes Pct Auto 0.3 % (0.0-0.5); Lymphocytes Absolute Auto 1.8 10^3/uL (1.2-3.8); Lymphocytes Percent Auto 27.3 % (20.5-60.0); Mean Corpuscular HGB Conc 32.4 g/dL (29.9-35.2); Mean Corpuscular Hemoglobin 32.4 pg (26.7-34.0); Mean Corpuscular Volume 100.3 fL (81.0-99.0); Mean Platelet Volume 11.2 fL (9.5-13.5); Monocytes Absolute Auto 0.7 10^3/uL (0.3-0.8); Monocytes Percent Auto 10.3 % (1.7-12.0); Neutrophils Absolute Auto 3.7 10^3/uL (1.4-6.5); Neutrophils Percent Auto 56.7 % (43.0-75.0); Platelet Count 249 10^3/uL (150-450); Red Blood Count 3.76 10^6/uL (4.20-5.40); Red Cell Distribution Width 13.5 % (11.0-15.0); White Blood Count 6.5 10^3/uL (4.0-11.0)
[2022-12-17 05:20] LABS: Anion Gap 11.1; BUN Creatinine Ratio 13.7; Calcium 8.8 mg/dL (8.5-10.1); Chloride 104 mmol/L (98-107); Estimated GFR (African America >60 (>=60); Estimated GFR (Non-African Ame >60 (>=60); Glucose 93 mg/dL (74-106); Potassium 4.1 mmol/L (3.5-5.1); Sodium 141 mmol/L (136-145)
[2022-12-17 05:27] LABS: INR 2.02; Prothrombin Time 20.6 sec (9.0-11.6)
[2022-12-17] MEDS: AMPICILLIN SODIUM/SULBACTAM NA 1.5 GM in 0.9 % SODIUM CHLORIDE 50 ML IV (05:34)
[2022-12-17] MEDS: MEPERIDINE HCL/PF 25 MG/ML VIAL IVP (05:34)
[2022-12-17] MEDS: ONDANSETRON PF 4 MG/2 ML VIAL IV (05:34)
[2022-12-17] MEDS: CYCLOBENZAPRINE HCL 10 MG TABLET PO (05:35)
[2022-12-17] MEDS: CALCIUM CARBONATE 500 MG (200MG ELEMENTAL) TAB CHEW PO (05:35)
[2022-12-17 06:00] VITALS: BP 122/83; PULSE 83; RESP 20; TEMP 36.8; O2SAT 92; O2SAT 95
--- NOTE | 2022-12-17 08:21 | P.DS_ITS ---
DS: Providers Provider Date of admission: 12/15/22 08:31 Primary care physician: Travis Deras MD Admitting clinician: Travis Deras Consults: 12/14/22 Consult to Dietitian Routine Reason For Exam: poor nutrition Reason for consultation: poor nutrition 12/14/22 11:52 Physical Therapy Eval and Treat Routine Reason for consultation: strength Has provider been notified: No Attending physician on discharge: Nikki Zhao DS: Diagnosis Discharge Diagnosis (1) Diverticulitis: (2) Gastroenteritis: (3) Protein S deficiency: DS: Summary Hospital Course Hospital Course: Patient was admitted for pain control and antibiotics. She seemed to improve on Zosyn and fluids, Protonix. At the time of discharge she had no vomiting or diarrhea and was tolerating a normal diet. She was still having some belching but discussed with patient going home and moving. She will be discharged home on cipro, omeprazole and has ultram to take at home for pain. She will have close follow up with Dr. Deras and will get INR check this week since cipro has interaction with coumadin. No other changes to home meds. Time spent discussing smoking cessation with patient: more than 10 minutes Status at Discharge Functional status at discharge: independent ambulation Time Spent with Patient Time attestation: Total time spent providing and/or coordinating discharge services: Time spent: greater than 30 minutes Exam Narrative Exam Narrative: General: Patient is alert, and oriented to person, place and time with normal affect, proper hygiene Skin: no visible rashes, or ulcers Head: atraumatic, acephalic Heart: Normal rate and rhythm, no murmurs/rubs/gallops Lungs: no audible wheezes, crackles and normal breath sounds all lung vickers Abdomen:hyperactive/ audible bowel sounds, no distension, No palpable masses, no organomegaly, no rebound/guarding/ or rigidity Musculoskeletal: muscle atrophy noted, ROM is limited due to being in hospital bed, no swelling bilateral lower extremities Vascular: Normal carotid, radial, femoral, posterior tibial, and dorsalis pedis pulses Lymph: no supraclavicular, axillary, or anterior/posterior cervical adenopathy Neuro: CN II-X grossly intact, normal sensation upper and lower extremities Constitutional Vital Signs, click to edit/add: Last Vital Signs Temp 98.2 F 12/17/22 06:00 Pulse 83 12/17/22 06:00 Resp 20 12/17/22 06:00 BP 122/83 12/17/22 06:00 Pulse Ox 92 L 12/17/22 06:00 O2 Del Method Room Air 12/17/22 06:00 DS: Data Data Completed and Pending Labs on day of discharge: Labs from last 24 hours 12/17/22 04:55 WBC 6.5 RBC 3.76 L Hgb 12.2 Hct 37.7 MCV 100.3 H MCH 32.4 MCHC 32.4 RDW 13.5 Plt Count 249 MPV 11.2 Neut % (Auto) 56.7 Lymph % (Auto) 27.3 [place] % (Auto) 10.3 Eos % (Auto) 4.3 Baso % (Auto) 1.1 Neut # (Auto) 3.7 Lymph # (Auto) 1.8 [place] # (Auto) 0.7 Eos # (Auto) 0.3 Baso # (Auto) 0.1 Abs Immat Gran (auto) 0.02 Imm/Tot Granulo (auto) 0.3 PT 20.6 H INR 2.02 Sodium 141 Potassium 4.1 Chloride 104 Carbon Dioxide 30.0 Anion Gap 11.1 BUN 10.0 Creatinine 0.73 Est GFR ( Amer) >60 Est GFR (Non-Af Amer) >60 BUN/Creatinine Ratio 13.7 Glucose 93 Calcium 8.8 Preliminary micro results at discharge 12/14/22 14:04 - Preliminary Blood NO GROWTH AT 36-48 HOURS. FINAL TO FOLLOW. 12/14/22 13:52 Blood Culture Result 1 - Preliminary Blood NO GROWTH AT 36-48 HOURS. FINAL TO FOLLOW. Discharge Plan Discharge Disposition: Home Health Service Discharge Medications: New ciprofloxacin HCl 500 mg Tablet 500 mg PO BID 7 Days Qty: 14 0RF omeprazole 40 mg Capsule,Delayed Release(Dr/Ec) 40 mg PO QD 30 Days Qty: 30 0RF Continued ondansetron 4 mg tablet,disintegrating 4 mg PO Q6H PRN (Reason: nausea and vomiting) Qty: 20 0RF orphenadrine citrate 100 mg tablet extended release 100 mg PO Q12H PRN (Reason: neck pain) Qty: 20 0RF amlodipine 5 mg tablet 5 mg PO DAILY cyclobenzaprine 10 mg tablet 10 mg PO TID doxepin 10 mg capsule 10 mg PO DAILY gabapentin 100 mg capsule 400 mg PO BID gabapentin 400 mg capsule 100 mg PO DAILY hydrocodone-acetaminophen 5-325 mg tablet 1 tab PO Q8H PRN (Reason: pain) hydroxyzine HCl 25 mg tablet 25 mg PO Q6H PRN (Reason: anxiety) hyoscyamine sulfate 0.125 mg tablet, sublingual 0.125 mg sublingual Q6H PRN (Reason: dyspepsia) lidocaine 5 % adhesive patch,medicated 1 patch topical Q24H PRN (Reason: pain) promethazine 25 mg tablet 25 mg PO Q12H PRN (Reason: nausea and vomiting) temazepam 30 mg capsule 30 mg PO DAILY tramadol 50 mg tablet 100 mg PO Q6H PRN (Reason: pain) valacyclovir 1 gram tablet 1,000 mg PO Q12H PRN (Reason: sore) warfarin 5 mg tablet 5 mg PO DAILY Qty: 0 0RF Rx Instructions: 10mg on sunday, 5mg daily on all other days Discontinued warfarin 10 mg tablet 4 mg PO DAILY COUMADIN 5 mg tablet See Rx Instructions .ROUTE .COMPLEX Rx Instructions: PT TAKES 10MG ON SUNDAY; warfarin 5 mg tablet 5 mg PO QWEEK Patient Comments: Pt takes 10mg on Sunday Activity: increase activity as tolerated Diet: other Diet Detail: bland diet and advance as tolerated Patient Instructions: Acute Abdominal Pain (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
[2022-12-17] MEDS: HYDROXYZINE PAMOATE 25 MG CAPSULE PO (09:02)
[2022-12-17] MEDS: AMLODIPINE BESYLATE 5 MG TABLET PO (09:02)
[2022-12-17] MEDS: GABAPENTIN 100 MG CAPSULE PO (09:02)
[2022-12-17] MEDS: HYOSCYAMINE SULFATE 0.125 MG TAB.SUBL SL ×2 (09:02→11:48)
[2022-12-17] MEDS: GABAPENTIN 400 MG CAPSULE PO (09:02)
[2022-12-17] MEDS: L. ACIDOPHILUS/L.BULGARICUS 1 PACKET GRAN.PACK PO (09:02)
[2022-12-17] MEDS: MAGNESIUM OXIDE 400 MG TABLET PO (09:02)
[2022-12-17 11:15] VITALS: O2SAT 97
[2022-12-17] MEDS: TRAMADOL HCL 50 MG TABLET PO (11:48)
[2022-12-17] MEDS: ACETAMINOPHEN 500 MG TABLET 1000 MG PO (11:49)
--- NOTE | 2022-12-19 15:05 | CM.DCFOLLOWU ---
Person spoke with: Kathleen How are you feeling? Much better How is your pain? No pain Did you understand your discharge instructions? Yes Do you have any questions about your discharge instructions? No Were you given any prescriptions at discharge? Yes Were you able to get your prescriptions filled? Yes Do you understand how to take your medications as ordered? Yes Do you have any questions about your follow up appointment and do you plan to keep your follow up appointment? I will call to schedule today. will draw my INR on Is there anything else that you would like to discuss? No Questions/Comments/Concerns/Other:
== END 2022-12-17 12:25 | disposition home health service (06) | DRG 392 ==
PROVIDERS: Admitting Provider Family Medicine; PCP Family Medicine; Visit Provider Family Medicine
DX: K57.92 Diverticulitis of intestine, part unspecified, without perforation or abscess without bleeding (principal); D68.59 Other primary thrombophilia; K52.9 Noninfective gastroenteritis and colitis, unspecified; E87.6 Hypokalemia; E83.51 Hypocalcemia; E83.42 Hypomagnesemia; I10 Essential (primary) hypertension; K21.9 Gastro-esophageal reflux disease without esophagitis; J44.9 Chronic obstructive pulmonary disease, unspecified; G47.33 Obstructive sleep apnea (adult) (pediatric); M54.12 Radiculopathy, cervical region; Z88.5 Allergy status to narcotic agent; Z88.8 Allergy status to other drugs, medicaments and biological substances; Z79.01 Long term (current) use of anticoagulants; Z79.891 Long term (current) use of opiate analgesic; Z79.899 Other long term (current) drug therapy; Z84.1 Family history of disorders of kidney and ureter; Z80.3 Family history of malignant neoplasm of breast
CPT/HCPCS: 36415; 74176; 80048; 80053; 81001; 82140; 82150; 83605; 83690; 83735; 85025; 85610; 85730; 87040; 87086; 87493; 87507; 94667; 94668; 94761; 96365; 96366; 96375; 96376; 97161; G0378

== ENCOUNTER 2022-12-24 09:08 | Inpatient (IN) | payer MEDICARE, OTHER, SELFPAY ==
[2022-12-22 09:29] VITALS: BP 133/92; PULSE 106; RESP 18; TEMP 36.7; O2SAT 98; BMI 19.8
--- NOTE | 2022-12-22 12:20 | SWNOTE1 ---
[facility]
--- NOTE | 2022-12-22 12:46 | CT_ITS ---
The [address] [address] Patient Name: FEROZ DUTTA MRN: [id number] date: 1960 Sex: F Assigned Patient Location: Current Patient Location: Accession/Order Number: [id number] Exam Date: 12/22/2022 16:00 Report Date: 12/22/2022 16:21 At the request of: EZEKIEL CHENEY Procedure: CT abdomen pelvis wo con CT abdomen pelvis wo con, 12/22/2022 4:00 PM EDT, OH001 INDICATION: Abd Pain COMPARISON: CT from 12/14/2022. TECHNIQUE: Helical images were obtained without intravenous contrast. Coronal and sagittal reconstructions were also generated. Dose reduction techniques were achieved by using automated exposure control and/or adjustment of mA and/or kV according to patient size and/or use of iterative reconstruction technique. Oral contrast: Given FINDINGS: The visualized portions of the lower thorax appear unremarkable. The liver is normal in size and attenuation. The gallbladder has been removed. The pancreas is within normal limits. The spleen appears unremarkable. The adrenal glands appear unremarkable. 4 mm nonobstructing calculus is again seen in the inferior pole of the left kidney. No hydronephrosis or perinephric process is noted. Filter is again seen in the infrarenal IVC. Stents are again noted in the common iliac veins bilaterally. There is no pathologic retroperitoneal adenopathy. The urinary bladder appears unremarkable. No pelvic mass is identified. There is no evidence of pathologic pelvic adenopathy. There is no evidence of free air or free fluid. The bowel loops appear unremarkable. The appendix is not definitely visualized. No significant hernia is identified. The osseous structures appear unremarkable. CT/CT abdomen pelvis wo con IMPRESSION: There is no evidence of obstruction, free air or other acute intra-abdominal process. 4 mm nonobstructing left renal calculus is again noted. Electronically authenticated by: IAN VALE Date: 12/22/2022 16:21
[2022-12-22 13:07] VITALS: BP 150/98; PULSE 99; RESP 18; TEMP 37; O2SAT 97
--- NOTE | 2022-12-22 13:56 | SWNOTE1 ---
SW met with pt to discuss dc needs. Pt was having trouble sleeping and pain in her stomach. Pt is independent at home but does have walker if needed. Pt does have [facility] and the nurse did come in to see her this week. Pt's plan is to resume HH at discharge. Physical therapy from will start coming in as well. SW to leave packet on floor for nursing to send dc orders if she is dc over the weekend. SW reviewed [employer] form with pt, pt voiced understanding and did not have any questions at this time. Pt signed form, original given to pt and copy placed on chart.
[2022-12-22 13:59] LABS: Basophils Absolute Auto 0.1 10^3/uL (0.0-0.1); Eosinophils Absolute Auto 0.1 10^3/uL (0.0-0.7); Eosinophils Percent Auto 1.1 % (0.9-7.0); Hematocrit 41.6 % (36.0-48.0); Hemoglobin 13.6 g/dL (12.0-16.0); Immature Granulocytes Abs Auto 0.02 10^3/uL (0.00-0.03); Immature Granulocytes Pct Auto 0.3 % (0.0-0.5); Lymphocytes Absolute Auto 1.7 10^3/uL (1.2-3.8); Lymphocytes Percent Auto 23.8 % (20.5-60.0); Mean Corpuscular HGB Conc 32.7 g/dL (29.9-35.2); Mean Corpuscular Hemoglobin 31.3 pg (26.7-34.0); Mean Corpuscular Volume 95.9 fL (81.0-99.0); Mean Platelet Volume 11.5 fL (9.5-13.5); Monocytes Absolute Auto 0.7 10^3/uL (0.3-0.8); Monocytes Percent Auto 10.3 % (1.7-12.0); Neutrophils Absolute Auto 4.5 10^3/uL (1.4-6.5); Neutrophils Percent Auto 63.5 % (43.0-75.0); Platelet Count 291 10^3/uL (150-450); Red Blood Count 4.34 10^6/uL (4.20-5.40); Red Cell Distribution Width 13.3 % (11.0-15.0); White Blood Count 7.1 10^3/uL (4.0-11.0)
[2022-12-22] MEDS: PROMETHAZINE HCL 25 MG/ML VIAL IM (14:14)
[2022-12-22] MEDS: MEPERIDINE HCL/PF 25 MG/ML VIAL 12.5 MG IM (14:14)
[2022-12-22 14:18] LABS: Alanine Aminotransferase 26 U/L (14-59); Albumin Globulin Ratio 0.9; Albumin Level 3.6 g/dL (3.4-5.0); Alkaline Phosphatase 179 U/L (46-116); Amylase 50 U/L (25-115); Aspartate Amino Transferase 32 U/L (15-37); BUN Creatinine Ratio 24.1; Bilirubin Total 0.4 mg/dL (0.2-1.0); Calcium 9.1 mg/dL (8.5-10.1); Carbon Dioxide 24.3 mmol/L (21.0-32.0); Chloride 103 mmol/L (98-107); Estimated GFR (African America >60 (>=60); Estimated GFR (Non-African Ame >60 (>=60); Glucose 94 mg/dL (74-106); Magnesium 1.7 mg/dL (1.8-2.4); Potassium 3.3 mmol/L (3.5-5.1); Sodium 140 mmol/L (136-145); Total Protein 7.6 g/dL (6.4-8.2)
[2022-12-22] MEDS: GABAPENTIN 100 MG CAPSULE PO (14:33)
[2022-12-22] MEDS: GABAPENTIN 400 MG CAPSULE PO ×2 (14:33→21:30)
[2022-12-22] MEDS: CYCLOBENZAPRINE HCL 10 MG TABLET PO ×2 (14:33→21:30)
[2022-12-22] MEDS: DOXEPIN HCL 10 MG CAPSULE PO (14:33)
[2022-12-22 14:50] LABS: INR 1.74; Prothrombin Time 17.9 sec (9.0-11.6)
[2022-12-22 16:10] VITALS: O2SAT 93
[2022-12-22] MEDS: HYOSCYAMINE SULFATE 0.125 MG TAB.SUBL SL (17:31)
[2022-12-22] MEDS: WARFARIN SODIUM 5 MG TABLET PO (17:31)
[2022-12-22 20:00] VITALS: PULSE 94; O2SAT 98
[2022-12-22] MEDS: ONDANSETRON PF 4 MG/2 ML VIAL IV (20:08)
[2022-12-22] MEDS: MEPERIDINE HCL/PF 25 MG/ML VIAL 12.5 MG IVP (20:08)
[2022-12-22] MEDS: LACTATED RINGER'S SOLUTION 1,000 ML 100 ML IV (20:09)
[2022-12-22 20:40] VITALS: O2SAT 97
[2022-12-22] MEDS: L. ACIDOPHILUS/L.BULGARICUS 1 PACKET GRAN.PACK PO (21:30)
[2022-12-22] MEDS: CEFTAZIDIME 2,000 MG in 0.9 % SODIUM CHLORIDE 100 ML 200 MG IV (21:30)
[2022-12-22] MEDS: PANTOPRAZOLE SODIUM 40 MG VIAL IV (21:30)
[2022-12-22] MEDS: TEMAZEPAM 15 MG CAPSULE 30 MG PO (21:30)
[2022-12-22 22:00] VITALS: BP 115/73; PULSE 92; RESP 20; TEMP 36.6; O2SAT 97
[2022-12-22 22:04] LABS: Adenovirus F 40/41 NOT DETECTED (NOT DETECTE); Astrovirus NOT DETECTED (NOT DETECTE); Campylobacter NOT DETECTED (NOT DETECTE); Cryptosporidium NOT DETECTED (NOT DETECTE); Cyclospora cayetanensis NOT DETECTED (NOT DETECTE); Entamoeba histolytica NOT DETECTED (NOT DETECTE); Enteroaggregative E.coli NOT DETECTED (NOT DETECTE); Enteropathogenic E.coli NOT DETECTED (NOT DETECTE); Enterotoxigenic E. coli NOT DETECTED (NOT DETECTE); Giardia lamblia NOT DETECTED (NOT DETECTE); Norovirus GI/GII NOT DETECTED (NOT DETECTE); Plesiomonas shigelloides NOT DETECTED (NOT DETECTE); Rotavirus A NOT DETECTED (NOT DETECTE); Salmonella NOT DETECTED (NOT DETECTE); Sapovirus NOT DETECTED (NOT DETECTE); Shiga-like toxin-producing E.C NOT DETECTED (NOT DETECTE); Shigella/Enteroinvasive E.coli NOT DETECTED (NOT DETECTE); Vibrio NOT DETECTED (NOT DETECTE); Vibrio cholerae NOT DETECTED (NOT DETECTE); Yersinia enterocolitica NOT DETECTED (NOT DETECTE)
[2022-12-22] MEDS: CLINDAMYCIN PHOSPHATE/D5W 600 MG/50 ML PIGGYBACK 100 MG IV (22:11)
[2022-12-23] VITALS (10 sets, daily range): BP systolic 109–123; BP diastolic 73–82; PULSE 78–97; RESP 16–20; TEMP 36.4–36.8; O2SAT 95–99
[2022-12-23] MEDS: ONDANSETRON PF 4 MG/2 ML VIAL IV ×3 (03:18→20:59)
[2022-12-23] MEDS: CLINDAMYCIN PHOSPHATE/D5W 600 MG/50 ML PIGGYBACK 100 MG IV ×3 (03:18→21:19)
[2022-12-23] MEDS: MEPERIDINE HCL/PF 25 MG/ML VIAL 12.5 MG IVP ×4 (03:19→20:59)
[2022-12-23] MEDS: CEFTAZIDIME 2,000 MG in 0.9 % SODIUM CHLORIDE 100 ML 200 MG IV (03:58)
[2022-12-23 04:50] LABS: Basophils Absolute Auto 0.1 10^3/uL (0.0-0.1); Basophils Percent Auto 1.3 % (0.2-2.0); Eosinophils Absolute Auto 0.1 10^3/uL (0.0-0.7); Eosinophils Percent Auto 2.1 % (0.9-7.0); Hemoglobin 11.5 g/dL (12.0-16.0); Immature Granulocytes Abs Auto 0.01 10^3/uL (0.00-0.03); Immature Granulocytes Pct Auto 0.2 % (0.0-0.5); Lymphocytes Absolute Auto 1.4 10^3/uL (1.2-3.8); Lymphocytes Percent Auto 25.7 % (20.5-60.0); Mean Corpuscular HGB Conc 31.9 g/dL (29.9-35.2); Mean Corpuscular Hemoglobin 31.3 pg (26.7-34.0); Mean Corpuscular Volume 97.8 fL (81.0-99.0); Mean Platelet Volume 11.4 fL (9.5-13.5); Monocytes Absolute Auto 0.7 10^3/uL (0.3-0.8); Neutrophils Percent Auto 57.7 % (43.0-75.0); Platelet Count 239 10^3/uL (150-450); Red Blood Count 3.68 10^6/uL (4.20-5.40); Red Cell Distribution Width 13.2 % (11.0-15.0); White Blood Count 5.3 10^3/uL (4.0-11.0)
[2022-12-23 05:02] LABS: INR 1.89; Prothrombin Time 19.3 sec (9.0-11.6)
[2022-12-23 05:03] LABS: Anion Gap 13.4; BUN Creatinine Ratio 13.2; Calcium 7.9 mg/dL (8.5-10.1); Carbon Dioxide 26.5 mmol/L (21.0-32.0); Chloride 104 mmol/L (98-107); Estimated GFR (African America >60 (>=60); Estimated GFR (Non-African Ame >60 (>=60); Glucose 95 mg/dL (74-106); Sodium 141 mmol/L (136-145)
[2022-12-23] MEDS: CYCLOBENZAPRINE HCL 10 MG TABLET PO ×3 (05:50→21:16)
[2022-12-23 05:59] LABS: Potassium 2.9 mmol/L (3.5-5.1)
[2022-12-23 06:27] LABS: Bilirubin Urine NEGATIVE (NEGATIVE); Blood Urine NEGATIVE (NEGATIVE); Clarity Urine CLEAR (CLEAR); Color Urine LT. YELLOW (YELLOW); Glucose Urine UA NEGATIVE (NEGATIVE); Ketones Urine NEGATIVE (NEGATIVE); Leukocyte Esterase Urine NEGATIVE (NEGATIVE); Nitrite Urine NEGATIVE (NEGATIVE); Protein Urine NEGATIVE (NEG/TRACE); Urobilinogen Urine 0.2 EU/dL (0.2-1.0); pH Urine 5.5 (5.0-9.0)
[2022-12-23 06:45] LABS: Bacteria Urine NONE SEEN #/HPF (NONE SEEN); Cast Seen? SEEN #/LPF (NONE SEEN); Crystals Seen? None Seen #/HPF (None Seen); Hyaline Casts Urine RARE; Mucus Urine NONE SEEN (NONE SEEN); RBC Urine 0-2 #/HPF (0-2); Squamous Epithelial Cell Urine NONE SEEN #/LPF (NONE/RARE); Urine Culture Indicated NO; WBC Urine 0-2 #/HPF (NONE SEEN)
[2022-12-23] MEDS: LACTATED RINGER'S SOLUTION 1,000 ML 100 ML IV ×2 (08:13→21:00)
--- NOTE | 2022-12-23 08:14 | P.PN_ITS ---
Progress Note: Subjective Subjective Interval history: Patient readmitted from the office, she was pain-free for 2 days after discharge, but then her lower abdominal pain recurred. No other change in diet. Does have some looser stools. Stool for C. difficile negative Exam Constitutional Vital Signs, click to edit/add: Last Vital Signs Temp 97.6 F 12/23/22 06:00 Pulse 78 12/23/22 06:00 Resp 20 12/23/22 06:00 BP 123/82 12/23/22 06:00 Pulse Ox 96 12/23/22 08:12 O2 Del Method Room Air 12/23/22 06:00 Common normals: apparent distress Respiratory Common normals: normal respiratory effort Cardio Common normals: regular rate, regular rhythm and no murmurs GI Common normals: soft to palpation and no masses; tender Palpation: tender Progress Note: Objective Labs Labs: Short CBC 12/22/22 12/23/22 Range/Units 13:15 04:33 WBC 7.1 5.3 (4.0-11.0) 10^3/uL Hgb 13.6 11.5 L (12.0-16.0) g/dL Hct 41.6 36.0 (36.0-48.0) % Plt Count 291 239 (150-450) 10^3/uL BMP 12/22/22 12/23/22 13:15 04:33 Sodium 140 141 Potassium 3.3 L 2.9 L* Chloride 103 104 Carbon Dioxide 24.3 26.5 BUN 14.0 10.0 Creatinine 0.58 0.76 Glucose 94 95 Calcium 9.1 7.9 L Liver Function 12/22/22 Range/Units 13:15 Total Bilirubin 0.4 (0.2-1.0) mg/dL AST 32 (15-37) U/L ALT 26 (14-59) U/L Alkaline Phosphatase 179 H (46-116) U/L Albumin 3.6 (3.4-5.0) g/dL Urine 12/22/22 Range/Units 06:00 Urine Color Lt. yellow (YELLOW) Urine Clarity Clear (CLEAR) Urine pH 5.5 (5.0-9.0) Ur Specific [place] 1.010 (1.005-1.025) Urine Protein Negative (NEG/TRACE) mg/dL Urine Glucose (UA) Negative (NEGATIVE) mg/dL Progress Note: A&P Assessment and Plan (1) Diverticulitis: (2) Fibromyalgia syndrome: (3) Gastroenteritis: (4) Protein S deficiency: (5) Stroke: Plan Sinus tachycardia, uncontrolled blood pressure secondary to acute abdominal pain, this has been related to diverticulitis in the past. CT scan with oral contrast only secondary to contrast allergy did not reveal diverticulitis but she is always responded to antibiotics after 2 to 3-day hospital stay. Maintain current antibiotic regiment. Stool test were negative. Acute anemia-possibly related to fluid resuscitation but she did not receive any boluses, check stool for occult blood. Possible acute upper gastrointestinal blood loss anemia versus diverticular bleeding Acute abdominal pain on top of chronic abdominal pain. Will review colonoscopy, need to consider MRA of abdomen to rule out mesenteric ischemia Hypokalemia-supplement Protein S deficiency-INR slightly low on admission but is back to low baseline today. Monitor daily. Hypertension-improved Cervical radiculopathy status post surgical intervention-PT to work with patient Fibromyalgia-continue current medications
[2022-12-23] MEDS: DOXEPIN HCL 10 MG CAPSULE PO (08:15)
[2022-12-23] MEDS: GABAPENTIN 100 MG CAPSULE PO (08:15)
[2022-12-23] MEDS: GABAPENTIN 400 MG CAPSULE PO ×2 (08:15→21:16)
[2022-12-23] MEDS: L. ACIDOPHILUS/L.BULGARICUS 1 PACKET GRAN.PACK PO ×2 (08:15→21:16)
[2022-12-23] MEDS: HYDROXYZINE HCL 25 MG TABLET PO (08:21)
[2022-12-23] MEDS: POTASSIUM CHLORIDE 40 MEQ in 0.9 % SODIUM CHLORIDE 250 ML 67.5 MEQ IV (08:22)
[2022-12-23] MEDS: HYOSCYAMINE SULFATE 0.125 MG TAB.SUBL SL ×3 (08:24→17:14)
[2022-12-23] MEDS: POTASSIUM CHLORIDE 10 MEQ ER TABLET 20 MEQ PO ×2 (08:24→21:16)
[2022-12-23] MEDS: CEFTAZIDIME 2,000 MG in 0.9 % SODIUM CHLORIDE 100 ML 100 MG IV (12:34)
[2022-12-23 13:25] LABS: Potassium 4.6 mmol/L (3.5-5.1)
[2022-12-23] MEDS: AMLODIPINE BESYLATE 5 MG TABLET PO (14:19)
[2022-12-23] MEDS: WARFARIN SODIUM 5 MG TABLET PO (17:15)
[2022-12-23] MEDS: PANTOPRAZOLE SODIUM 40 MG VIAL IV (20:58)
[2022-12-23] MEDS: TEMAZEPAM 15 MG CAPSULE 30 MG PO (21:16)
[2022-12-24] VITALS (12 sets, daily range): BP systolic 104–122; BP diastolic 70–77; PULSE 78–91; RESP 16–18; TEMP 36.6–36.8; O2SAT 93–98
[2022-12-24 00:24] LABS: Occult Blood Negative
[2022-12-24] MEDS: CEFTAZIDIME 2,000 MG in 0.9 % SODIUM CHLORIDE 100 ML 200 MG IV (00:57)
[2022-12-24] MEDS: ONDANSETRON PF 4 MG/2 ML VIAL IV ×6 (01:07→22:37)
[2022-12-24] MEDS: MEPERIDINE HCL/PF 25 MG/ML VIAL 12.5 MG IVP ×6 (01:07→22:37)
[2022-12-24] MEDS: CLINDAMYCIN PHOSPHATE/D5W 600 MG/50 ML PIGGYBACK 100 MG IV ×4 (03:05→21:12)
[2022-12-24 04:36] LABS: Basophils Absolute Auto 0.1 10^3/uL (0.0-0.1); Eosinophils Absolute Auto 0.1 10^3/uL (0.0-0.7); Eosinophils Percent Auto 2.3 % (0.9-7.0); Hematocrit 31.5 % (36.0-48.0); Immature Granulocytes Abs Auto 0.02 10^3/uL (0.00-0.03); Immature Granulocytes Pct Auto 0.4 % (0.0-0.5); Lymphocytes Absolute Auto 1.3 10^3/uL (1.2-3.8); Lymphocytes Percent Auto 27.6 % (20.5-60.0); Mean Corpuscular HGB Conc 31.7 g/dL (29.9-35.2); Mean Corpuscular Hemoglobin 31.6 pg (26.7-34.0); Mean Corpuscular Volume 99.7 fL (81.0-99.0); Mean Platelet Volume 11.5 fL (9.5-13.5); Monocytes Absolute Auto 0.6 10^3/uL (0.3-0.8); Monocytes Percent Auto 12.2 % (1.7-12.0); Neutrophils Absolute Auto 2.7 10^3/uL (1.4-6.5); Neutrophils Percent Auto 56.5 % (43.0-75.0); Platelet Count 217 10^3/uL (150-450); Red Blood Count 3.16 10^6/uL (4.20-5.40); Red Cell Distribution Width 13.5 % (11.0-15.0); White Blood Count 4.8 10^3/uL (4.0-11.0)
[2022-12-24 04:50] LABS: Anion Gap 7.4; BUN Creatinine Ratio 14.7; Calcium 7.5 mg/dL (8.5-10.1); Carbon Dioxide 30.7 mmol/L (21.0-32.0); Chloride 107 mmol/L (98-107); Estimated GFR (African America >60 (>=60); Estimated GFR (Non-African Ame >60 (>=60); Glucose 109 mg/dL (74-106); Potassium 4.1 mmol/L (3.5-5.1); Sodium 141 mmol/L (136-145)
[2022-12-24] MEDS: CYCLOBENZAPRINE HCL 10 MG TABLET PO ×3 (05:59→21:12)
[2022-12-24 07:23] LABS: INR 2.61; Prothrombin Time 26.2 sec (9.0-11.6)
[2022-12-24] MEDS: LACTATED RINGER'S SOLUTION 1,000 ML 100 ML IV ×2 (08:21→21:11)
[2022-12-24] MEDS: HYOSCYAMINE SULFATE 0.125 MG TAB.SUBL SL ×3 (08:24→15:55)
--- NOTE | 2022-12-24 08:58 | P.PN_ITS ---
Progress Note: Subjective Subjective Interval history: Patient states pain is slightly improved today. No fevers. Ambulating better. Nausea better. Exam Constitutional Vital Signs, click to edit/add: Last Vital Signs Temp 97.9 F 12/24/22 05:14 Pulse 78 12/24/22 05:14 Resp 16 12/24/22 08:00 BP 104/70 12/24/22 05:14 Pulse Ox 95 12/24/22 07:53 O2 Del Method Room Air 12/24/22 05:14 Common normals: apparent distress Respiratory Common normals: normal respiratory effort Cardio Common normals: regular rate, regular rhythm and no murmurs GI Common normals: soft to palpation and no masses; tender Palpation: tender Progress Note: Objective Labs Labs: Short CBC 12/24/22 Range/Units 04:09 WBC 4.8 (4.0-11.0) 10^3/uL Hgb 10.0 L (12.0-16.0) g/dL Hct 31.5 L (36.0-48.0) % Plt Count 217 (150-450) 10^3/uL BMP 12/23/22 12/24/22 13:12 04:09 Sodium 141 Potassium 4.6 4.1 Chloride 107 Carbon Dioxide 30.7 BUN 11.0 Creatinine 0.75 Glucose 109 H Calcium 7.5 L Progress Note: A&P Assessment and Plan (1) Diverticulitis: (2) Fibromyalgia syndrome: (3) Gastroenteritis: (4) Protein S deficiency: (5) Stroke: Plan Sinus tachycardia, uncontrolled blood pressure secondary to acute abdominal pain, this has been related to diverticulitis in the past. CT findings again did not confirm the diverticulitis. With her pain out of proportion to physical findings, her pain is slightly better as her INR has improved, history of iliac stents, concern for mesenteric ischemia. We will check MRA tomorrow. Acute anemia-possibly related to fluid resuscitation but she did not receive any boluses, check stool for occult blood. Occult blood is negative Acute abdominal pain on top of chronic abdominal pain. Previous colonoscopy from 3 years ago was unremarkable Hypokalemia-return to normal Protein S deficiency-INR slightly low on admission but is back to low baseline today. Better today Hypertension-improved Cervical radiculopathy status post surgical intervention-PT to work with patient Fibromyalgia-continue current medications Hypocalcemia-supplement Hypomagnesemia-supplement With pain persisting and pain out of proportion to physical findings concerning for intestinal ischemia we will maintain patient as an inpatient status. MRI tomorrow.
[2022-12-24] MEDS: GABAPENTIN 100 MG CAPSULE PO (09:36)
[2022-12-24] MEDS: POTASSIUM CHLORIDE 10 MEQ ER TABLET 20 MEQ PO ×2 (09:36→21:12)
[2022-12-24] MEDS: AMLODIPINE BESYLATE 5 MG TABLET PO (09:36)
[2022-12-24] MEDS: GABAPENTIN 400 MG CAPSULE PO ×2 (09:38→21:12)
[2022-12-24] MEDS: L. ACIDOPHILUS/L.BULGARICUS 1 PACKET GRAN.PACK PO ×2 (09:38→21:12)
[2022-12-24] MEDS: CALCIUM CARBONATE 600 MG TABLET PO ×3 (09:38→21:12)
[2022-12-24] MEDS: HYDROXYZINE HCL 25 MG TABLET PO (09:39)
[2022-12-24] MEDS: DOXEPIN HCL 10 MG CAPSULE PO (09:39)
[2022-12-24] MEDS: MAGNESIUM OXIDE 400 MG TABLET PO ×2 (09:39→21:12)
[2022-12-24] MEDS: CEFTAZIDIME 2,000 MG in 0.9 % SODIUM CHLORIDE 100 ML 100 MG IV (12:18)
[2022-12-24] MEDS: WARFARIN SODIUM 5 MG TABLET PO (16:00)
[2022-12-24] MEDS: TEMAZEPAM 15 MG CAPSULE 30 MG PO (21:12)
[2022-12-24] MEDS: PANTOPRAZOLE SODIUM 40 MG VIAL IV (21:12)
[2022-12-25] VITALS (13 sets, daily range): BP systolic 110–128; BP diastolic 68–77; PULSE 76–95; RESP 16–18; TEMP 36.3–36.6; O2SAT 92–99
[2022-12-25] MEDS: CEFTAZIDIME 2,000 MG in 0.9 % SODIUM CHLORIDE 100 ML 200 MG IV ×2 (00:10→11:07)
[2022-12-25] MEDS: CLINDAMYCIN PHOSPHATE/D5W 600 MG/50 ML PIGGYBACK 100 MG IV ×4 (02:12→21:23)
[2022-12-25] MEDS: ONDANSETRON PF 4 MG/2 ML VIAL IV ×6 (02:57→23:58)
[2022-12-25] MEDS: MEPERIDINE HCL/PF 25 MG/ML VIAL 12.5 MG IVP ×6 (02:57→23:58)
[2022-12-25] MEDS: CALCIUM CARBONATE 600 MG TABLET PO ×3 (05:03→21:23)
[2022-12-25] MEDS: CYCLOBENZAPRINE HCL 10 MG TABLET PO ×3 (05:03→21:23)
[2022-12-25 06:10] LABS: Basophils Absolute Auto 0.1 10^3/uL (0.0-0.1); Basophils Percent Auto 1.3 % (0.2-2.0); Eosinophils Absolute Auto 0.2 10^3/uL (0.0-0.7); Eosinophils Percent Auto 3.4 % (0.9-7.0); Hematocrit 35.9 % (36.0-48.0); Immature Granulocytes Abs Auto 0.01 10^3/uL (0.00-0.03); Immature Granulocytes Pct Auto 0.2 % (0.0-0.5); Lymphocytes Absolute Auto 1.5 10^3/uL (1.2-3.8); Lymphocytes Percent Auto 30.8 % (20.5-60.0); Mean Corpuscular HGB Conc 30.6 g/dL (29.9-35.2); Mean Corpuscular Hemoglobin 31.1 pg (26.7-34.0); Mean Corpuscular Volume 101.4 fL (81.0-99.0); Mean Platelet Volume 11.7 fL (9.5-13.5); Monocytes Absolute Auto 0.7 10^3/uL (0.3-0.8); Monocytes Percent Auto 14.2 % (1.7-12.0); Neutrophils Absolute Auto 2.4 10^3/uL (1.4-6.5); Neutrophils Percent Auto 50.1 % (43.0-75.0); Platelet Count 211 10^3/uL (150-450); Red Blood Count 3.54 10^6/uL (4.20-5.40); Red Cell Distribution Width 13.4 % (11.0-15.0); White Blood Count 4.7 10^3/uL (4.0-11.0)
[2022-12-25 06:27] LABS: Anion Gap 6.9; BUN Creatinine Ratio 10.8; Calcium 8.5 mg/dL (8.5-10.1); Carbon Dioxide 31.6 mmol/L (21.0-32.0); Chloride 105 mmol/L (98-107); Estimated GFR (African America >60 (>=60); Estimated GFR (Non-African Ame >60 (>=60); Glucose 97 mg/dL (74-106); Potassium 4.5 mmol/L (3.5-5.1); Sodium 139 mmol/L (136-145)
[2022-12-25 06:42] LABS: INR 3.38; Prothrombin Time 33.4 sec (9.0-11.6)
[2022-12-25] MEDS: HYOSCYAMINE SULFATE 0.125 MG TAB.SUBL SL ×3 (07:44→16:22)
[2022-12-25] MEDS: LACTATED RINGER'S SOLUTION 1,000 ML 100 ML IV ×2 (07:45→20:10)
--- NOTE | 2022-12-25 08:16 | P.PN_ITS ---
Progress Note: Subjective Subjective Interval history: Is persisting the patient does state it is slightly better today. This is in coordination with her INR being improved Exam Constitutional Vital Signs, click to edit/add: Last Vital Signs Temp 97.9 F 12/25/22 07:00 Pulse 82 12/25/22 07:00 Resp 16 12/25/22 07:00 BP 115/73 12/25/22 07:00 Pulse Ox 95 12/25/22 07:00 O2 Del Method Room Air 12/25/22 07:00 Common normals: apparent distress Respiratory Common normals: normal respiratory effort Cardio Common normals: regular rate, regular rhythm and no murmurs GI Common normals: soft to palpation and no masses; tender Palpation: tender Progress Note: Objective Labs Labs: Short CBC 12/25/22 Range/Units 04:45 WBC 4.7 (4.0-11.0) 10^3/uL Hgb 11.0 L (12.0-16.0) g/dL Hct 35.9 L (36.0-48.0) % Plt Count 211 (150-450) 10^3/uL BMP 12/25/22 04:45 Sodium 139 Potassium 4.5 Chloride 105 Carbon Dioxide 31.6 BUN 8.0 Creatinine 0.74 Glucose 97 Calcium 8.5 Progress Note: A&P Assessment and Plan (1) Diverticulitis: (2) Fibromyalgia syndrome: (3) Gastroenteritis: (4) Protein S deficiency: (5) Stroke: Plan Sinus tachycardia, uncontrolled blood pressure secondary to acute abdominal pain, this has been related to diverticulitis in the past. CT findings again did not confirm the diverticulitis. With her pain out of proportion to physical findings, her pain is slightly better as her INR has improved, history of iliac stents, concern for mesenteric ischemia. MRI planned for today, if that shows no evidence for ischemic pathology, continue antibiotics 1 more day and discharge tomorrow Acute anemia-possibly related to fluid resuscitation but she did not receive any boluses, check stool for occult blood. Improved Acute abdominal pain on top of chronic abdominal pain. Previous colonoscopy from 3 years ago was unremarkable Hypokalemia-return to normal Protein S deficiency-INR slightly low on admission but is back to low baseline today. On high side of normal today Hypertension-improved Cervical radiculopathy status post surgical fusion Fibromyalgia-continue current medications Hypocalcemia-supplement Hypomagnesemia-supplement With pain persisting and pain out of proportion to physical findings concerning for intestinal ischemia we will maintain patient as an inpatient status. MRI today
--- NOTE | 2022-12-25 09:00 | MR_ITS ---
The [address] [address] Patient Name: FEROZ DUTTA MRN: [id number] date: 1960 Sex: F Assigned Patient Location: [place] Current Patient Location: [place] Accession/Order Number: [id number] Exam Date: 12/25/2022 07:30 Report Date: 12/25/2022 10:23 At the request of: EZEKIEL CHENEY Procedure: MR angio abdomen wo con EXAMINATION: MR angio abdomen wo con HISTORY: hx of stents in lower ext, pain out of proportion COMPARISON: No relevant comparison available. TECHNIQUE: A comprehensive examination was performed of the kidneys utilizing a variety of imaging planes and imaging parameters to optimize visualization of suspected pathology. In addition, magnetic resonance imaging of the aorta, renal arteries and renal veins was also performed. FINDINGS: LIVER: No enlargement, atrophy, abnormal density, or significant focal lesion. 1.2 cm area of increased T2 signal inferior right hepatic lobe possibly a small cyst BILIARY: Gallbladder is not definitively seen PANCREAS: No lesion, fluid collection, ductal dilatation, or atrophy. SPLEEN: No enlargement or focal lesion. KIDNEYS: No mass or obstruction. Celiac: No flow significant stenosis occlusion or aneurysm SMA: No flow significant stenosis occlusion or aneurysm SONJA: No flow significant stenosis occlusion or aneurysm IVC: No occlusion observed. Artifact likely representing an IVC filter RENAL ARTERIES: No significant stenosis. Other: Susceptibility artifact consistent with known iliac vein stents MR/MR angio abdomen wo con IMPRESSION: No arterial occlusion, stenosis or aneurysm observed Electronically authenticated by: TATIANA NOBLE Date: 12/25/2022 10:23
[2022-12-25] MEDS: AMLODIPINE BESYLATE 5 MG TABLET PO (10:05)
[2022-12-25] MEDS: POTASSIUM CHLORIDE 10 MEQ ER TABLET 20 MEQ PO ×2 (10:05→21:23)
[2022-12-25] MEDS: GABAPENTIN 100 MG CAPSULE PO (10:06)
[2022-12-25] MEDS: L. ACIDOPHILUS/L.BULGARICUS 1 PACKET GRAN.PACK PO ×2 (10:06→21:23)
[2022-12-25] MEDS: DOXEPIN HCL 10 MG CAPSULE PO (10:06)
[2022-12-25] MEDS: MAGNESIUM OXIDE 400 MG TABLET PO ×2 (10:06→21:23)
[2022-12-25] MEDS: GABAPENTIN 400 MG CAPSULE PO ×2 (10:06→21:23)
[2022-12-25] MEDS: HYDROXYZINE HCL 25 MG TABLET PO (10:20)
--- NOTE | 2022-12-25 10:22 | PC.NURSE ---
pt requested atarax, denies itching, states it is for her mood.
--- NOTE | 2022-12-25 12:45 | SWNOTE1 ---
Pt was switched to inpatient, SW reviewed Important Message from [employer] with pt. She voiced understanding, no questions. Pt signed form, original given to pt and copy placed on chart.
[2022-12-25] MEDS: WARFARIN SODIUM 5 MG TABLET PO (16:22)
[2022-12-25] MEDS: PANTOPRAZOLE SODIUM 40 MG VIAL IV (21:23)
[2022-12-25] MEDS: TEMAZEPAM 15 MG CAPSULE 30 MG PO (21:23)
[2022-12-26] VITALS (9 sets, daily range): BP systolic 114–132; BP diastolic 64–75; PULSE 78–84; RESP 16–18; TEMP 36.7; O2SAT 92–97
[2022-12-26] MEDS: CLINDAMYCIN PHOSPHATE/D5W 600 MG/50 ML PIGGYBACK 100 MG IV ×2 (03:15→09:51)
[2022-12-26] MEDS: ONDANSETRON PF 4 MG/2 ML VIAL IV ×3 (05:11→13:23)
[2022-12-26] MEDS: MEPERIDINE HCL/PF 25 MG/ML VIAL 12.5 MG IVP ×3 (05:11→13:23)
[2022-12-26 06:01] LABS: Basophils Absolute Auto 0.1 10^3/uL (0.0-0.1); Basophils Percent Auto 1.1 % (0.2-2.0); Eosinophils Absolute Auto 0.2 10^3/uL (0.0-0.7); Eosinophils Percent Auto 4.1 % (0.9-7.0); Hematocrit 33.9 % (36.0-48.0); Hemoglobin 10.5 g/dL (12.0-16.0); Immature Granulocytes Abs Auto 0.01 10^3/uL (0.00-0.03); Immature Granulocytes Pct Auto 0.2 % (0.0-0.5); Lymphocytes Absolute Auto 1.5 10^3/uL (1.2-3.8); Lymphocytes Percent Auto 28.4 % (20.5-60.0); Mean Corpuscular Hemoglobin 31.3 pg (26.7-34.0); Mean Corpuscular Volume 100.9 fL (81.0-99.0); Mean Platelet Volume 11.4 fL (9.5-13.5); Monocytes Absolute Auto 0.6 10^3/uL (0.3-0.8); Monocytes Percent Auto 11.8 % (1.7-12.0); Neutrophils Percent Auto 54.4 % (43.0-75.0); Platelet Count 238 10^3/uL (150-450); Red Blood Count 3.36 10^6/uL (4.20-5.40); Red Cell Distribution Width 13.6 % (11.0-15.0); White Blood Count 5.4 10^3/uL (4.0-11.0)
[2022-12-26 06:13] LABS: Anion Gap 9.7; BUN Creatinine Ratio 12.7; Calcium 8.8 mg/dL (8.5-10.1); Carbon Dioxide 28.6 mmol/L (21.0-32.0); Chloride 103 mmol/L (98-107); Estimated GFR (African America >60 (>=60); Estimated GFR (Non-African Ame >60 (>=60); Glucose 96 mg/dL (74-106); Potassium 4.3 mmol/L (3.5-5.1); Sodium 137 mmol/L (136-145)
[2022-12-26] MEDS: LACTATED RINGER'S SOLUTION 1,000 ML 100 ML IV (06:19)
[2022-12-26] MEDS: CALCIUM CARBONATE 600 MG TABLET PO ×2 (06:19→13:23)
[2022-12-26] MEDS: CYCLOBENZAPRINE HCL 10 MG TABLET PO ×2 (06:19→13:23)
[2022-12-26 07:12] LABS: Prothrombin Time 29.9 sec (9.0-11.6)
[2022-12-26] MEDS: HYOSCYAMINE SULFATE 0.125 MG TAB.SUBL SL ×2 (07:28→12:52)
--- NOTE | 2022-12-26 08:39 | P.DS_ITS ---
DS: Providers Provider Date of admission: 12/24/22 09:08 Primary care physician: Travis Deras MD Consults: 12/22/22 12:41 Consult to PICC Line RN Routine Consulting Provider: Travis Deras Reason for consultation: picc or midline Has provider been notified: No 12/22/22 12:42 Physical Therapy Eval and Treat Routine Reason for consultation: rehab Has provider been notified: No DS: Diagnosis Discharge Diagnosis (1) Diverticulitis: (2) Fibromyalgia syndrome: (3) Gastroenteritis: (4) Protein S deficiency: (5) Stroke: Plan Sinus tachycardia, uncontrolled blood pressure secondary to acute abdominal pain, this has been related to diverticulitis in the past. Acute anemia- Acute abdominal pain on top of chronic abdominal pain Hypokalemia Protein S deficiency Hypertension Cervical radiculopathy status post surgical fusion Fibromyalgia Hypocalcemia Hypomagnesemia DS: Summary Hospital Course Hospital Course: Patient with chronic pain recurring episodes of what had been diverticulitis in the past presented to the office with increasing abdominal pain. He was good for about 2 to 3 days after previous discharge and having increasing pain. In hospital evaluation by blood cell count remain normal CT scan with oral contrast did not show any acute process. She did have a history of peripheral artery disease. So MRI a of the abdomen was completed to look for any mesenteric ischemia since pain is out of proportion to physical findings. MRA was unremarkable. Pain is improving. At this point discharge patient to home in improving condition. Medications see list. Follow-up with me in the office more as needed. She has recurrent follow-up as already scheduled Time Spent with Patient Time attestation: Total time spent providing and/or coordinating discharge services: Exam Constitutional Vital Signs, click to edit/add: Last Vital Signs Temp 98.1 F 12/26/22 05:12 Pulse 83 12/26/22 05:12 Resp 16 12/26/22 08:00 BP 114/64 12/26/22 05:12 Pulse Ox 97 12/26/22 05:14 O2 Del Method Room Air 12/26/22 05:14 Common normals: apparent distress Respiratory Common normals: normal respiratory effort Cardio Common normals: regular rate, regular rhythm and no murmurs GI Common normals: soft to palpation and no masses; tender Palpation: tender DS: Data Data Completed and Pending Labs on day of discharge: Labs from last 24 hours 12/26/22 04:59 WBC 5.4 RBC 3.36 L Hgb 10.5 L Hct 33.9 L MCV 100.9 H MCH 31.3 MCHC 31.0 RDW 13.6 Plt Count 238 MPV 11.4 Neut % (Auto) 54.4 Lymph % (Auto) 28.4 [place] % (Auto) 11.8 Eos % (Auto) 4.1 Baso % (Auto) 1.1 Neut # (Auto) 3.0 Lymph # (Auto) 1.5 [place] # (Auto) 0.6 Eos # (Auto) 0.2 Baso # (Auto) 0.1 Abs Immat Gran (auto) 0.01 Imm/Tot Granulo (auto) 0.2 PT 29.9 H INR 3.00 Sodium 137 Potassium 4.3 Chloride 103 Carbon Dioxide 28.6 Anion Gap 9.7 BUN 9.0 Creatinine 0.71 Est GFR ( Amer) >60 Est GFR (Non-Af Amer) >60 BUN/Creatinine Ratio 12.7 Glucose 96 Calcium 8.8 Preliminary micro results at discharge 12/22/22 13:35 - Preliminary Blood NO GROWTH AT 36-48 HOURS. FINAL TO FOLLOW. 12/22/22 13:15 Blood Culture Result 1 - Preliminary Blood NO GROWTH AT 36-48 HOURS. FINAL TO FOLLOW. Discharge Plan Discharge Disposition: Home, Self-Care Discharge Medications: New cefdinir 300 mg capsule 600 mg PO DAILY 10 Days Qty: 20 0RF metronidazole 500 mg tablet 500 mg PO Q6H 10 Days Qty: 40 0RF Continued ondansetron 4 mg tablet,disintegrating 4 mg PO Q6H PRN (Reason: nausea and vomiting) Qty: 20 0RF amlodipine 5 mg tablet 5 mg PO DAILY cyclobenzaprine 10 mg tablet 10 mg PO TID doxepin 10 mg capsule 10 mg PO DAILY gabapentin 100 mg capsule 400 mg PO BID gabapentin 400 mg capsule 100 mg PO DAILY hydroxyzine HCl 25 mg tablet 25 mg PO Q6H PRN (Reason: anxiety) hyoscyamine sulfate 0.125 mg tablet, sublingual 0.125 mg sublingual Q6H PRN (Reason: dyspepsia) lidocaine 5 % adhesive patch,medicated 1 patch topical Q24H PRN (Reason: pain) promethazine 25 mg tablet 25 mg PO Q12H PRN (Reason: nausea and vomiting) temazepam 30 mg capsule 30 mg PO DAILY omeprazole 40 mg Capsule,Delayed Release(Dr/Ec) 40 mg PO QD 30 Days Qty: 30 0RF warfarin 5 mg tablet 5 mg PO DAILY Qty: 0 0RF Rx Instructions: 10mg on sunday, 5mg daily on all other days Discontinued valacyclovir 1 gram tablet 1,000 mg PO Q12H PRN (Reason: sore) Hold Instructions: Only when has a break out ciprofloxacin HCl 500 mg Tablet 500 mg PO BID 7 Days Qty: 14 0RF 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 Deras, patient does not need a follow up appt. regarding this hospital stay. Patient is to continue with previously scheduled appts. with him.
[2022-12-26] MEDS: AMLODIPINE BESYLATE 5 MG TABLET PO (09:38)
[2022-12-26] MEDS: GABAPENTIN 100 MG CAPSULE PO (09:38)
[2022-12-26] MEDS: L. ACIDOPHILUS/L.BULGARICUS 1 PACKET GRAN.PACK PO (09:46)
[2022-12-26] MEDS: POTASSIUM CHLORIDE 10 MEQ ER TABLET 20 MEQ PO (09:46)
[2022-12-26] MEDS: GABAPENTIN 400 MG CAPSULE PO (09:46)
[2022-12-26] MEDS: DOXEPIN HCL 10 MG CAPSULE PO (09:46)
[2022-12-26] MEDS: MAGNESIUM OXIDE 400 MG TABLET PO (09:46)
[2022-12-26] MEDS: HYDROXYZINE HCL 25 MG TABLET PO (09:55)
--- NOTE | 2022-12-26 10:27 | SWNOTE1 ---
Pt is being discharged today. SW sent dc orders to [facility].
[2022-12-26] MEDS: CEFTAZIDIME 2,000 MG in 0.9 % SODIUM CHLORIDE 100 ML 200 MG IV ×2 (12:54)
--- NOTE | 2022-12-27 14:31 | CM.DCFOLLOWU ---
Person spoke with: Kathleen How are you feeling? feeling fine. How is your pain? no complaints Did you understand your discharge instructions? yes I did Do you have any questions about your discharge instructions? No questions. Were you given any prescriptions at discharge? yes a new antibiotic Were you able to get your prescriptions filled? yes I did Do you understand how to take your medications as ordered? yes Do you have any questions about your follow up appointment and do you plan to keep your follow up appointment? Dr. Deras did not think I needed a follow up. Just call if not improving. Is there anything else that you would like to discuss? no. Questions/Comments/Concerns/Other:
== END 2022-12-26 14:03 | disposition home or self-care (01) | DRG 392 ==
PROVIDERS: Admitting Provider Family Medicine; PCP Family Medicine; Visit Provider Family Medicine
DX: R10.9 Unspecified abdominal pain (principal); K57.32 Diverticulitis of large intestine without perforation or abscess without bleeding; D68.59 Other primary thrombophilia; I10 Essential (primary) hypertension; R00.0 Tachycardia, unspecified; D64.9 Anemia, unspecified; G89.29 Other chronic pain; E87.6 Hypokalemia; M79.7 Fibromyalgia; E83.51 Hypocalcemia; E83.42 Hypomagnesemia; M54.12 Radiculopathy, cervical region; J44.9 Chronic obstructive pulmonary disease, unspecified; G47.33 Obstructive sleep apnea (adult) (pediatric); G47.10 Hypersomnia, unspecified; Z88.5 Allergy status to narcotic agent; Z79.01 Long term (current) use of anticoagulants; Z79.899 Other long term (current) drug therapy; Z95.828 Presence of other vascular implants and grafts; Z90.49 Acquired absence of other specified parts of digestive tract; Z90.710 Acquired absence of both cervix and uterus; Z84.1 Family history of disorders of kidney and ureter; Z80.3 Family history of malignant neoplasm of breast
CPT/HCPCS: 36410; 36415; 74176; 80048; 80053; 81001; 82150; 83605; 83690; 83735; 84132; 85025; 85610; 87040; 87086; 87493; 87507; 94761; 96361; 96365; 96366; 96367; 96368; 96372; 96375; 96376; C8901; G0328; G0378; J3480

== ENCOUNTER 2022-12-25 02:48 | Outpatient (RCR) | payer MEDICARE, OTHER, SELFPAY | END 2023-01-23 17:43 | disposition home or self-care (01) | LOC: MM 02:48 | PROVIDERS: PCP Family Medicine; Visit Provider Internal Medicine | DX: Z51.81 Encounter for therapeutic drug level monitoring (principal); Z79.01 Long term (current) use of anticoagulants ==

== ENCOUNTER 2023-01-17 15:49 | Observation (INO) | payer MEDICARE, OTHER, SELFPAY ==
[2023-01-17 16:55] VITALS: BP 154/92; PULSE 94; RESP 20; TEMP 36.8; O2SAT 94; BMI 21.2
--- NOTE | 2023-01-17 18:01 | XR_ITS ---
The [address] [address] Patient Name: FEROZ DUTTA MRN: [id number] date: 1960 Sex: F Assigned Patient Location: MS Current Patient Location: MS Accession/Order Number: [id number] Exam Date: 01/17/2023 19:20 Report Date: 01/17/2023 20:16 At the request of: EZEKIEL CHENEY Procedure: XR acute abdomen series EXAM: XR acute abdomen series , 01/17/2023 HISTORY: Abd Pain COMPARISON: Previous x-ray from 09/21/2022 TECHNIQUE: Acute abdominal x-ray series including chest frontal view, upright and supine views of the abdomen and pelvis. FINDINGS: No dilated bowel loops, air-fluid levels or free air under the diaphragm is seen to suggest bowel obstruction or perforation. Ida filter in the inferior vena cava. Postcholecystectomy clips. Bilateral iliac venous stents. Cardiac silhouette within normal limits. No hilar or mediastinal enlargement. The lungs and costophrenic angles are clear. Calcified granuloma right lower lobe. Fixation hardware in the lower cervical spine. XR/XR acute abdomen series IMPRESSION: No acute findings in the chest, abdomen or pelvis. Electronically authenticated by: ARY OGDEN Date: 01/17/2023 20:16
[2023-01-17] MEDS: ONDANSETRON PF 4 MG/2 ML VIAL IV (18:42)
[2023-01-17] MEDS: LACTATED RINGER'S SOLUTION 1,000 ML 100 ML IV (18:42)
[2023-01-17 19:08] LABS: Basophils Absolute Auto 0.1 10^3/uL (0.0-0.1); Basophils Percent Auto 0.8 % (0.2-2.0); Eosinophils Percent Auto 0.5 % (0.9-7.0); Hematocrit 38.4 % (36.0-48.0); Hemoglobin 12.6 g/dL (12.0-16.0); Immature Granulocytes Abs Auto 0.03 10^3/uL (0.00-0.03); Immature Granulocytes Pct Auto 0.3 % (0.0-0.5); Lymphocytes Absolute Auto 1.7 10^3/uL (1.2-3.8); Lymphocytes Percent Auto 19.3 % (20.5-60.0); Mean Corpuscular HGB Conc 32.8 g/dL (29.9-35.2); Mean Corpuscular Hemoglobin 31.3 pg (26.7-34.0); Mean Corpuscular Volume 95.5 fL (81.0-99.0); Mean Platelet Volume 10.6 fL (9.5-13.5); Monocytes Absolute Auto 0.8 10^3/uL (0.3-0.8); Monocytes Percent Auto 9.7 % (1.7-12.0); Neutrophils Percent Auto 69.4 % (43.0-75.0); Platelet Count 299 10^3/uL (150-450); Red Blood Count 4.02 10^6/uL (4.20-5.40); White Blood Count 8.6 10^3/uL (4.0-11.0)
[2023-01-17 19:24] LABS: Alanine Aminotransferase 36 U/L (14-59); Albumin Globulin Ratio 0.9; Albumin Level 3.5 g/dL (3.4-5.0); Alkaline Phosphatase 189 U/L (46-116); Anion Gap 15.8; Aspartate Amino Transferase 30 U/L (15-37); BUN Creatinine Ratio 23.4; Bilirubin Total 0.2 mg/dL (0.2-1.0); Carbon Dioxide 24.6 mmol/L (21.0-32.0); Chloride 101 mmol/L (98-107); Estimated GFR (African America >60 (>=60); Estimated GFR (Non-African Ame >60 (>=60); Glucose 98 mg/dL (74-106); Potassium 3.4 mmol/L (3.5-5.1); Sodium 138 mmol/L (136-145); Total Protein 7.5 g/dL (6.4-8.2)
[2023-01-17 19:27] LABS: C Reactive Protein <0.2 mg/dL (<=1.0)
[2023-01-17 19:37] LABS: INR 2.83; Prothrombin Time 28.3 sec (9.0-11.6)
[2023-01-17] MEDS: MEPERIDINE HCL/PF 25 MG/ML VIAL 12.5 MG IVP (20:07)
[2023-01-17] MEDS: OMEPRAZOLE 40 MG CAPSULE.DR PO (20:07)
[2023-01-17] MEDS: HYOSCYAMINE SULFATE 0.125 MG TAB.SUBL SL (20:07)
[2023-01-17] MEDS: PROSTAT 15 GM PROTEIN/100 CAL 30 ML LIQUID PACKET PO (20:07)
[2023-01-17] MEDS: AMPICILLIN SODIUM/SULBACTAM NA 1.5 GM in 0.9 % SODIUM CHLORIDE 50 ML IV (20:08)
[2023-01-17 20:09] LABS: Amylase 88 U/L (25-115)
[2023-01-17 20:42] VITALS: BP 143/82; PULSE 91; RESP 18; TEMP 36.8; O2SAT 96
[2023-01-17 20:45] VITALS: O2SAT 96
[2023-01-17] MEDS: TEMAZEPAM 15 MG CAPSULE 30 MG PO (21:09)
[2023-01-17] MEDS: CYCLOBENZAPRINE HCL 10 MG TABLET 20 MG PO (21:10)
[2023-01-17] MEDS: HYDROXYZINE PAMOATE 25 MG CAPSULE PO (21:10)
[2023-01-17] MEDS: GABAPENTIN 100 MG CAPSULE PO (21:49)
[2023-01-17] MEDS: GABAPENTIN 400 MG CAPSULE PO (21:49)
[2023-01-17 21:54] LABS: Bilirubin Urine NEGATIVE (NEGATIVE); Blood Urine NEGATIVE (NEGATIVE); Clarity Urine CLEAR (CLEAR); Color Urine LT. YELLOW (YELLOW); Glucose Urine UA NEGATIVE (NEGATIVE); Ketones Urine NEGATIVE (NEGATIVE); Leukocyte Esterase Urine NEGATIVE (NEGATIVE); Nitrite Urine NEGATIVE (NEGATIVE); Protein Urine NEGATIVE (NEG/TRACE); Urobilinogen Urine 0.2 EU/dL (0.2-1.0); pH Urine 6.5 (5.0-9.0)
[2023-01-18] VITALS (8 sets, daily range): BP systolic 105–143; BP diastolic 64–82; PULSE 73–91; RESP 14–18; TEMP 36.6–37.1; O2SAT 93–98
[2023-01-18] MEDS: AMPICILLIN SODIUM/SULBACTAM NA 1.5 GM in 0.9 % SODIUM CHLORIDE 50 ML IV ×4 (01:37→20:00)
[2023-01-18] MEDS: ONDANSETRON PF 4 MG/2 ML VIAL IV ×6 (01:40→23:52)
[2023-01-18] MEDS: MEPERIDINE HCL/PF 25 MG/ML VIAL 12.5 MG IVP ×6 (01:41→23:53)
[2023-01-18] MEDS: LACTATED RINGER'S SOLUTION 1,000 ML 100 ML IV ×2 (05:17→15:56)
[2023-01-18 05:47] LABS: INR 2.51; Prothrombin Time 25.3 sec (9.0-11.6)
[2023-01-18 05:51] LABS: Alanine Aminotransferase 31 U/L (14-59); Albumin Globulin Ratio 0.8; Albumin Level 2.7 g/dL (3.4-5.0); Alkaline Phosphatase 150 U/L (46-116); Anion Gap 13.1; Aspartate Amino Transferase 24 U/L (15-37); Bilirubin Total 0.3 mg/dL (0.2-1.0); Calcium 8.1 mg/dL (8.5-10.1); Carbon Dioxide 28.7 mmol/L (21.0-32.0); Chloride 104 mmol/L (98-107); Estimated GFR (African America >60 (>=60); Estimated GFR (Non-African Ame >60 (>=60); Globulin 3.3 g/dL; Glucose 89 mg/dL (74-106); Potassium 3.8 mmol/L (3.5-5.1); Sodium 142 mmol/L (136-145)
[2023-01-18] MEDS: HYOSCYAMINE SULFATE 0.125 MG TAB.SUBL SL ×3 (07:43→16:00)
[2023-01-18 08:02] LABS: Bacteria Urine NONE SEEN #/HPF (NONE SEEN); Mucus Urine NONE SEEN (NONE SEEN); RBC Urine NONE SEEN #/HPF (0-2); Squamous Epithelial Cell Urine RARE #/LPF (NONE/RARE); WBC Urine NONE SEEN #/HPF (NONE SEEN)
--- NOTE | 2023-01-18 08:17 | P.PN_ITS ---
Progress Note: Subjective Subjective Interval history: Patient with current upper left lower quadrant pain. She has been unable to complete an outpatient colonoscopy. In the past year she responded well to IV antibiotics. She has had multiple CAT scans we did hold off at this time. She has a severe contrast allergy. Nausea vomiting is improved. Pain persisting. Exam Constitutional Vital Signs, click to edit/add: Last Vital Signs Temp 97.8 F 01/18/23 05:20 Pulse 73 01/18/23 05:20 Resp 18 01/18/23 05:20 BP 106/64 01/18/23 05:20 Pulse Ox 93 L 01/18/23 05:20 O2 Del Method Room Air 01/18/23 05:20 Common normals: apparent distress Respiratory Common normals: normal respiratory effort Cardio Common normals: regular rate, regular rhythm and no murmurs GI Common normals: soft to palpation and no masses; tender Palpation: tender Progress Note: Objective Labs Labs: Short CBC 01/17/23 Range/Units 18:50 WBC 8.6 (4.0-11.0) 10^3/uL Hgb 12.6 (12.0-16.0) g/dL Hct 38.4 (36.0-48.0) % Plt Count 299 (150-450) 10^3/uL BMP 01/17/23 01/18/23 18:50 04:23 Sodium 138 142 Potassium 3.4 L 3.8 Chloride 101 104 Carbon Dioxide 24.6 28.7 BUN 15.0 17.0 Creatinine 0.64 0.68 Glucose 98 89 Calcium 9.0 8.1 L Liver Function 01/17/23 01/18/23 Range/Units 18:50 04:23 Total Bilirubin 0.2 0.3 (0.2-1.0) mg/dL AST 30 24 (15-37) U/L ALT 36 31 (14-59) U/L Alkaline Phosphatase 189 H 150 H (46-116) U/L Albumin 3.5 2.7 L (3.4-5.0) g/dL Urine 01/17/23 Range/Units 21:40 Urine Color Lt. yellow (YELLOW) Urine Clarity Clear (CLEAR) Urine pH 6.5 (5.0-9.0) Ur Specific [place] 1.020 (1.005-1.025) Urine Protein Negative (NEG/TRACE) mg/dL Urine Glucose (UA) Negative (NEGATIVE) mg/dL Progress Note: A&P Assessment and Plan (1) Diverticulitis: (2) Fibromyalgia syndrome: (3) Gastroenteritis: (4) Protein S deficiency: (5) Stroke: Plan Rectal: Recurrent nausea vomiting and significant left lower quadrant pain. Been persisting for the last week and a half. Not improving at home despite oral medications. Admitted for IV antibiotics which have been effective in the past. She is supposed to have an outpatient colonoscopy but this has not been arranged. Recurrent diverticulitis based on previous evaluations. Continue with antibiotics 1 more day. Nausea vomiting is improved. Laboratory evaluation so far is unremarkable. Acute anemia-monitor daily Protein S deficiency-INR slightly low on admission but is back to low baseline today. On high side of normal today Hypertension-improved Cervical radiculopathy status post surgical fusion Fibromyalgia-continue current medications Maintain patient observation 1 additional day. Likely discharge to home tomorrow did need to adjust pain medication frequency this morning.
--- NOTE | 2023-01-18 08:25 | CM.NOTE ---
Rounding with Dr. Deras. Pt. states to Dr. Deras can you change my Demerol from q6 hours to q 4hours? Dr. Deras said he would. Dr. Deras encouraged patient to ambulate. PT eval pending. Continue to follow patient for any anticipated discharge needs.
[2023-01-18] MEDS: GABAPENTIN 400 MG CAPSULE PO ×2 (08:56→21:09)
[2023-01-18] MEDS: OMEPRAZOLE 40 MG CAPSULE.DR PO ×2 (08:56→21:09)
[2023-01-18] MEDS: PROSTAT 15 GM PROTEIN/100 CAL 30 ML LIQUID PACKET PO ×2 (08:56→21:09)
[2023-01-18] MEDS: HYDROXYZINE PAMOATE 25 MG CAPSULE PO ×2 (08:59→21:09)
--- NOTE | 2023-01-18 11:17 | SWNOTE1 ---
SW met with pt to discuss dc needs. Pt lives at home and her son helps her as needed. Pt does have a walker and cane at home and uses as needed as well. Pt is current with [facility] and will resume at discharge. Pt has no other discharge needs at this time. SW to follow as needed. SW reviewed MEDRANO form with pt. Pt voiced understanding and did not have any questions/concerns at this time. Original given to pt and copy placed on chart.
--- NOTE | 2023-01-18 12:06 | SWNOTE1 ---
ROGELIO sent updates to [employer] .
[2023-01-18] MEDS: WARFARIN SODIUM 5 MG TABLET PO (20:00)
[2023-01-18] MEDS: GABAPENTIN 100 MG CAPSULE PO (21:09)
[2023-01-18] MEDS: TEMAZEPAM 15 MG CAPSULE 30 MG PO (21:09)
[2023-01-18] MEDS: CYCLOBENZAPRINE HCL 10 MG TABLET 20 MG PO (21:10)
[2023-01-19] MEDS: LACTATED RINGER'S SOLUTION 1,000 ML 100 ML IV (02:11)
[2023-01-19] MEDS: AMPICILLIN SODIUM/SULBACTAM NA 1.5 GM in 0.9 % SODIUM CHLORIDE 50 ML IV ×2 (02:15→08:51)
[2023-01-19 04:45] VITALS: O2SAT 93
[2023-01-19 05:36] LABS: INR 1.71; Prothrombin Time 17.6 sec (9.0-11.6)
[2023-01-19 05:38] LABS: Alanine Aminotransferase 25 U/L (14-59); Albumin Globulin Ratio 0.8; Albumin Level 2.5 g/dL (3.4-5.0); Alkaline Phosphatase 133 U/L (46-116); Aspartate Amino Transferase 23 U/L (15-37); BUN Creatinine Ratio 19.4; Bilirubin Total 0.2 mg/dL (0.2-1.0); Calcium 8.1 mg/dL (8.5-10.1); Carbon Dioxide 27.8 mmol/L (21.0-32.0); Chloride 104 mmol/L (98-107); Estimated GFR (African America >60 (>=60); Estimated GFR (Non-African Ame >60 (>=60); Globulin 3.1 g/dL; Glucose 96 mg/dL (74-106); Potassium 3.8 mmol/L (3.5-5.1); Sodium 139 mmol/L (136-145); Total Protein 5.6 g/dL (6.4-8.2)
[2023-01-19 05:41] VITALS: BP 130/75; PULSE 89; RESP 18; TEMP 36.4; O2SAT 98
[2023-01-19] MEDS: ONDANSETRON PF 4 MG/2 ML VIAL IV ×2 (05:59→09:56)
[2023-01-19] MEDS: MEPERIDINE HCL/PF 25 MG/ML VIAL 12.5 MG IVP ×2 (06:00→09:56)
[2023-01-19 07:11] LABS: Hematocrit 33.9 % (36.0-48.0); Hemoglobin 10.6 g/dL (12.0-16.0); Mean Corpuscular HGB Conc 31.3 g/dL (29.9-35.2); Mean Corpuscular Hemoglobin 30.7 pg (26.7-34.0); Mean Corpuscular Volume 98.3 fL (81.0-99.0); Mean Platelet Volume 10.7 fL (9.5-13.5); Platelet Count 229 10^3/uL (150-450); Red Blood Count 3.45 10^6/uL (4.20-5.40); White Blood Count 5.5 10^3/uL (4.0-11.0)
[2023-01-19 07:51] LABS: Red Cell Distribution Width 13.8 % (11.0-15.0)
[2023-01-19 08:35] LABS: Lymphocytes Absolute Manual 1.81 10^3/uL (1.20-3.80); Monocytes Absolute Manual 0.44 10^3/uL (0.30-0.80); Segmented Neut Absolute Manual 3.24 10^3/uL (1.4-6.5)
--- NOTE | 2023-01-19 08:45 | CM.NOTE ---
Rounds made with kathe Duong for discharge to home. Pt is current with [facility].
--- NOTE | 2023-01-19 08:46 | PM.DS1 ---
DS: Providers Provider Date of admission: 01/17/23 15:49 Primary care physician: Travis Deras MD Consults: 01/17/23 17:59 Physical Therapy Eval and Treat Routine Reason for consultation: weakness Has provider been notified: No DS: Diagnosis Discharge Diagnosis (1) Diverticulitis: (2) Fibromyalgia syndrome: (3) Gastroenteritis: (4) Protein S deficiency: (5) Stroke: DS: Summary Hospital Course Hospital Course: Patient had been treated as an outpatient for left lower quadrant pain. She has had the same minimally. She was completely resolved after discharge. Positive for about 10 days and the pain gradually started coming back. Extensive work-up done previously. Held off on CT scan due to multiple CT scans. Patient was placed on IV antibiotics. Pain improved slowly. Nausea vomiting resolved at the time of discharge. With dehydration resolved and pain improving she will be discharged to home in improving condition. Medications see list. Follow-up with me next week. Needs set up a colonoscopy. Time Spent with Patient Time attestation: Total time spent providing and/or coordinating discharge services: Exam Constitutional Vital Signs, click to edit/add: Last Vital Signs Temp 97.6 F 01/19/23 05:41 Pulse 89 01/19/23 05:41 Resp 18 01/19/23 05:41 BP 130/75 01/19/23 05:41 Pulse Ox 98 01/19/23 05:41 O2 Del Method Room Air 01/19/23 05:41 Common normals: apparent distress Respiratory Common normals: normal respiratory effort Cardio Common normals: regular rate, regular rhythm and no murmurs GI Common normals: soft to palpation and no masses; tender Palpation: tender DS: Data Data Completed and Pending Labs on day of discharge: Labs from last 24 hours 01/19/23 03:57 WBC 5.5 RBC 3.45 L Hgb 10.6 L Hct 33.9 L MCV 98.3 MCH 30.7 MCHC 31.3 RDW 13.8 Plt Count 229 MPV 10.7 Seg Neuts % (Manual) 59.0 Lymphocytes % (Manual) 33.0 Monocytes % (Manual) 8.0 Eosinophils % (Manual) 0.0 L Basophils % (Manual) 0.0 L Neutrophils # (Manual) 3.24 Lymphocytes # (Manual) 1.81 Monocytes # (Manual) 0.44 Eosinophils # (Manual) 0.00 Basophils # (Manual) 0.00 PT 17.6 H INR 1.71 Sodium 139 Potassium 3.8 Chloride 104 Carbon Dioxide 27.8 Anion Gap 11.0 BUN 14.0 Creatinine 0.72 Est GFR ( Amer) >60 Est GFR (Non-Af Amer) >60 BUN/Creatinine Ratio 19.4 Glucose 96 Calcium 8.1 L Total Bilirubin 0.2 AST 23 ALT 25 Alkaline Phosphatase 133 H Total Protein 5.6 L Albumin 2.5 L Globulin 3.1 Albumin/Globulin Ratio 0.8 Discharge Plan Discharge Disposition: Home, Self-Care Discharge Medications: New amoxicillin-pot clavulanate 875-125 mg tablet 1 tab PO Q12H Qty: 20 0RF ondansetron 4 mg tablet,disintegrating 4 mg PO Q6H PRN (Reason: nausea) Qty: 30 12RF promethazine 25 mg tablet 25 mg PO Q6H PRN (Reason: nausea) Qty: 30 12RF Continued hydroxyzine pamoate [Vistaril] 25 mg capsule 25 mg PO Q6H PRN (Reason: anxiety) cyclobenzaprine 10 mg tablet 20 mg PO BEDTIME hyoscyamine sulfate 0.125 mg tablet, sublingual 0.125 mg sublingual Q6H PRN (Reason: dyspepsia) lidocaine 5 % adhesive patch,medicated 1 patch topical Q24H PRN (Reason: pain) temazepam 30 mg capsule 30 mg PO BEDTIME omeprazole 40 mg Capsule,Delayed Release(Dr/Ec) 40 mg PO QD 30 Days Qty: 30 0RF Activity: resume usual activities as tolerated Diet: advance to your usual diet Patient Instructions: Promethazine (By mouth) (Phenergan, Promacot), Amoxicillin/Clavulanate Potassium (By mouth), Ondansetron (By mouth, Into the mouth), Diverticulitis (DC) Global Marketing Manager/Refrigeration Service Technician Instructions: Resume [facility], phone number is [phone] Forms: Portal Instructions Follow Up Appointments: Follow up appt. with Dr. Deras on Sun. Jan.26 @ 11:15am Office #: [phone] Discharge Date/Time: 01/19/23 10:38
[2023-01-19] MEDS: GABAPENTIN 400 MG CAPSULE PO (08:51)
[2023-01-19] MEDS: HYOSCYAMINE SULFATE 0.125 MG TAB.SUBL SL (08:51)
[2023-01-19] MEDS: PROSTAT 15 GM PROTEIN/100 CAL 30 ML LIQUID PACKET PO (08:52)
[2023-01-19] MEDS: OMEPRAZOLE 40 MG CAPSULE.DR PO (08:52)
--- NOTE | 2023-01-19 10:07 | SWNOTE1 ---
ROGELIO received call from nursing and pt does not have a ride until 7:30pm. ROGELIO called and set up trips and they will be here between 10:00-10:30am. ROGELIO let nursing know. ROGELIO to resume [facility].
[2023-01-19 11:56] LABS: Adenovirus F 40/41 NOT DETECTED (NOT DETECTE); Astrovirus NOT DETECTED (NOT DETECTE); Campylobacter NOT DETECTED (NOT DETECTE); Cryptosporidium NOT DETECTED (NOT DETECTE); Cyclospora cayetanensis NOT DETECTED (NOT DETECTE); Entamoeba histolytica NOT DETECTED (NOT DETECTE); Enteroaggregative E.coli NOT DETECTED (NOT DETECTE); Enteropathogenic E.coli NOT DETECTED (NOT DETECTE); Enterotoxigenic E. coli NOT DETECTED (NOT DETECTE); Giardia lamblia NOT DETECTED (NOT DETECTE); Norovirus GI/GII NOT DETECTED (NOT DETECTE); Plesiomonas shigelloides NOT DETECTED (NOT DETECTE); Rotavirus A NOT DETECTED (NOT DETECTE); Salmonella NOT DETECTED (NOT DETECTE); Sapovirus NOT DETECTED (NOT DETECTE); Shiga-like toxin-producing E.C NOT DETECTED (NOT DETECTE); Shigella/Enteroinvasive E.coli NOT DETECTED (NOT DETECTE); Vibrio NOT DETECTED (NOT DETECTE); Vibrio cholerae NOT DETECTED (NOT DETECTE); Yersinia enterocolitica NOT DETECTED (NOT DETECTE)
[2023-01-19 13:17] LABS: C. Difficile PCR NEGATIVE (NEGATIVE)
--- NOTE | 2023-01-22 13:16 | CM.DCFOLLOWU ---
Person spoke with: Kathleen How are you feeling? Better How is your pain? No pain Did you understand your discharge instructions? Yes Do you have any questions about your discharge instructions? No Were you given any prescriptions at discharge? Yes Were you able to get your prescriptions filled? Yes Do you understand how to take your medications as ordered? Yes Do you have any questions about your follow up appointment and do you plan to keep your follow up appointment? Nov with Dr. Deras Is there anything else that you would like to discuss? No Questions/Comments/Concerns/Other:
== END 2023-01-19 10:38 | disposition home or self-care (01) ==
PROVIDERS: Admitting Provider Family Medicine; PCP Family Medicine; Visit Provider Family Medicine
DX: K57.32 Diverticulitis of large intestine without perforation or abscess without bleeding (principal); D62 Acute posthemorrhagic anemia; D68.59 Other primary thrombophilia; I10 Essential (primary) hypertension; M54.12 Radiculopathy, cervical region; M79.7 Fibromyalgia; K52.9 Noninfective gastroenteritis and colitis, unspecified; E86.0 Dehydration; J44.9 Chronic obstructive pulmonary disease, unspecified; G47.33 Obstructive sleep apnea (adult) (pediatric); R19.7 Diarrhea, unspecified; Z90.710 Acquired absence of both cervix and uterus; Z90.49 Acquired absence of other specified parts of digestive tract; Z79.01 Long term (current) use of anticoagulants; Z79.899 Other long term (current) drug therapy; Z86.73 Personal history of transient ischemic attack (TIA), and cerebral infarction without residual deficits; Z98.1 Arthrodesis status
CPT/HCPCS: 36410; 36415; 36592; 74022; 80053; 81001; 82150; 83605; 83690; 83735; 85025; 85027; 85610; 86140; 87040; 87086; 87493; 87507; 94761; 96361; 96365; 96366; 96375; 96376; 97161; C1887; G0378; G0379

== ENCOUNTER 2023-01-24 00:43 | Outpatient (RCR) | payer MEDICARE, OTHER, SELFPAY | END 2023-02-22 16:50 | disposition home or self-care (01) | LOC: MM 00:43 | PROVIDERS: PCP Family Medicine; Visit Provider Internal Medicine | DX: Z51.81 Encounter for therapeutic drug level monitoring (principal); Z79.01 Long term (current) use of anticoagulants ==

== ENCOUNTER 2023-02-28 10:57 | Emergency (ER) | payer MEDICARE, OTHER, SELFPAY ==
[2023-02-28] VITALS (47 sets, daily range): BP systolic 147–185; BP diastolic 84–107; PULSE 102–121; RESP 15–34; TEMP 37.5; O2SAT 98; BMI 22.1
--- NOTE | 2023-02-28 11:09 | ECG_ITS ---
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
--- NOTE | 2023-02-28 11:10 | CT_ITS ---
The [address] [address] Patient Name: FEROZ DUTTA MRN: [id number] date: 1960 Sex: F Assigned Patient Location: ER Current Patient Location: ER Accession/Order Number: [id number] Exam Date: 02/28/2023 11:46 Report Date: 02/28/2023 12:03 At the request of: JENNIFER BROWN Procedure: CT head/brain wo con CT head/brain wo con, 02/28/2023 11:46 AM EST INDICATION: Headache on coumadin and hx of ICH COMPARISON: Noncontrast CT of the head 01/25/2022, 10/31/2021 TECHNIQUE: Axial CT images of the brain from skull base to vertex, including portions of the face and sinuses, were obtained without contrast. Multiplanar reformatted images were generated and reviewed as needed. FINDINGS: No intracranial mass, hydrocephalus, midline shift or acute hemorrhage. No extra-axial collection. Sadnoval-white matter differentiation is preserved. No sinus or mastoid fluid Orbits are within normal limits. No acute skull fracture. CT/CT head/brain wo con IMPRESSION: No acute intracranial abnormality. Electronically authenticated by: FANY MCKEON Date: 02/28/2023 12:03
--- NOTE | 2023-02-28 11:15 | ED_ITS ---
HPI - General Adult General Chief complaint: Headache Stated complaint: HYPERTENSION Time Seen by Provider: 02/28/23 11:09 Source: patient Mode of arrival: walk-in History of Present Illness HPI narrative: The patient history of intracranial breathing as well as migraine coming to us from the primary care office with a headache that started yesterday causing photosensitivity as well as blurry vision in both eyes, the patient mentioned t hat she has a history of factor V Leyden and she is supposed to take Coumadin daily, the patient also had a history of intracranial bleeding according to her with coiling The patient denies any abdominal pain or chest pain but she did mention having nausea and vomiting and the headache is mostly frontal associated with blurry vision she mentioned that she usually gets blurry vision with her headache but not as bad at this time The patient does not have any fever or chills , she mentioned having chronic left neck pain that sometimes radiates to her left arm Related Data Home Medications Medication Instructions Recorded Confirmed cyclobenzaprine 10 mg tablet 20 mg PO BEDTIME 12/14/22 02/28/23 temazepam 30 mg capsule 30 mg PO BEDTIME 12/14/22 02/28/23 hydroxyzine pamoate 25 mg capsule 25 mg PO Q6H PRN anxiety 01/17/23 02/28/23 (Vistaril) Previous Rx's Medication Instructions Recorded omeprazole 40 mg capsule,delayed 40 mg PO QD 30 days #30 caps 12/17/22 release Allergies Allergy/AdvReac Type Severity Reaction Status Date / Time prochlorperazine Allergy Intermediate Unknown Verified 09/21/22 09:32 [From Compazine] Iodinated Contrast Media AdvReac Severe Verified 02/28/23 13:01 ivp Allergy Severe Rash Uncoded 09/21/22 09:32 Review of Systems ROS Status of ROS 10 or more systems reviewed and unremark able except as noted in history and below [facility] Medical History (Updated 02/28/23 @ 16:57 by Jade Shine MD) [place] filter in place ?Z95.828 - Presence of other vascular implants and grafts (ICD-10) Diverticulitis ?K57.92 - Diverticulitis of intestine, part unspecified, without perforation or abscess without bleeding (ICD-10) Gastroenteritis ?K52.9 - Noninfective gastroenteritis and colitis, unspecified (ICD-10) Stroke ?I63.9 - Cerebral infarction, unspecified (ICD-10) Migraine ?G43.909 - Migraine, unspecified, not intractable, without status migrainosus (ICD-10) Fibromyalgia syndrome ?M79.7 - Fibromyalgia (ICD-10) Thoracic outlet syndrome ?G54.0 - Brachial plexus disorders (ICD-10) Protein S deficiency ?D68.59 - Other primary thrombophilia (ICD-10) Surgical History (Updated 12/14/22 @ 10:46 by Vangie Mason) H/O neck surgery ?Z98.890 - Other specified postprocedural states (ICD-10) H/O: hysterectomy ?Z90.710 - Acquired absence of both cervix and uterus (ICD-10) H/O knee surgery ?Z98.890 - Other specified postprocedural states (ICD-10) History of ankle surgery ?Z98.890 - Other specified postprocedural states (ICD-10) Hx of appendectomy ?Z90.49 - Acquired absence of other specified parts of digestive tract (ICD- 10) Family History (Updated 12/14/22 @ 10:47 by Vangie Mason) Father Family history of cancer Mother Family history of cancer Sister Family history of cancer Brother Family history of diabetes mellitus Social History (Updated 12/14/22 @ 10:49 by Vangie Mason) Within the past year, how often did you have a drink containing alcohol: never Within the past year, how many standard drinks containing alcohol did you have on a typical day: 1 or 2 Within the past year, how often did you have six or more drinks on one occasion: never Total score: 0 Score interpretation: A score less than 3 is consistent with normal alcohol consumption. Smoking status: Never smoker Non-prescribed substance use: denies use Previous occupational history: disabled Highest level of school completed/degree received: high school graduate Are you now , , , , never or living with a partner: In a typical week, how many times do you talk on the telephone with family, friends, or neighbors: twice per week How often do you get together with friends or relatives: once per week How often do you attend protestant or zoroastrian services: 4 or more times per year Do you belong to any clubs or organizations such as protestant groups unions, [employer] or athletic groups, or school groups: no Total score: 2 Score interpretation: A score of greater than or equal to 2 indicates the lowest level of social isolation. Little interest or pleasure in doing things: not at all Feeling down, depressed, or hopeless: not at all Feel stressed/tense/nervous/anxious/difficulty sleeping: only a little Gender Identity: female Exam Narrative Exam Narrative: Nurses notes and vital signs reviewed and patient is not hypoxic. General: Well-appearing and in no apparent distress. Skin: Warm, dry, no pallor noted. No rash. Head: Normocephalic, atraumatic. Neck: Supple, non-tender. Eye: Pupils are equal, round and EOMI. No scleral icterus. Ears, Nose, Mouth, and Throat: TM are clear, no nasal mucosal hypertrophy. Oral mucosa is moist, no posterior oropharynx erythema, uvula is mid-line Cardiovascular: Regular Rate and Rhythm without murmur, gallop or rub. Respiratory: No accessory muscle use or respiratory distress. Lungs are clear to auscultation, no wheezing, rales or rhonchi Chest Wall: no tenderness Back: No midline thoracic or lumbar vertebral tenderness. No CVA tenderness Musculoskeletal: normal ROM, no calf or popliteal tenderness, no lower extremity edema/swelling GI: Abdomen is soft, non-distended. Normal bowel sounds. No masses appreciated. No tenderness to palpation. No rebound, guarding, or rigidity noted. Neurological: A&O x4. No cranial nerve dysfunction observed. No truncal ataxia. Moves all extremities. Sensation intact. Psychiatric: Cooperative and interactive. Normal mood and affect. Constitutional Vital Signs, click to edit/add: Last Vital Signs Temp 99.5 F 02/28/23 11:00 Pulse 108 H 02/28/23 16:45 Resp 17 02/28/23 16:45 BP 179/105 H 02/28/23 16:45 Pulse Ox 98 02/28/23 11:00 Course Vital Signs Vital signs: Vital Signs Temperature 99.5 F 02/28/23 11:00 Pulse Rate 110 H 02/28/23 11:00 Respiratory Rate 20 02/28/23 11:00 Blood Pressure 156/93 H 02/28/23 11:00 Pulse Oximetry 98 02/28/23 11:00 Temperature 99.5 F 02/28/23 11:00 Pulse Rate 108 H 02/28/23 16:45 Respiratory Rate 17 02/28/23 16:45 Blood Pressure 179/105 H 02/28/23 16:45 Pulse Oximetry 98 02/28/23 11:00 Medical Decision Making [facility] Narrative Medical decision making narrative: The patient EKG in the ER was showing sinus rhythm with a heart rate of [address] elevation or depression The patient CT head showed no acute significant pathology CBC and chemistry were within normal The patient was treated already with Phenergan as well as Norflex before arrival in addition to being treated in the ER with morphine Toradol and Solu-Medrol with no effect on her headache With a history of the patient of factor V Leyden and the fact that her INR 0.9 and she is stopped her therapeutic the patient would need CT angio of the head and neck but she have contrast allergy with anaphylaxis The patient case was discussed with Dr. Espinal and teleneurology and she agreed that the patient need in person evaluation by neurology the patient will be transferred to [facility] ER Dr. Beltran accepted the pt Lab Data Labs: Lab Results 02/28/23 Range/Units 11:30 WBC 7.7 (4.0-11.0) 10^3/uL RBC 4.11 L (4.20-5.40) 10^6/uL Hgb 12.5 (12.0-16.0) g/dL Hct 39.3 (36.0-48.0) % MCV 95.6 (81.0-99.0) fL MCH 30.4 (26.7-34.0) pg MCHC 31.8 (29.9-35.2) g/dL RDW 15.1 H (11.0-15.0) % Plt Count 287 (150-450) 10^3/uL MPV 10.4 (9.5-13.5) fL Seg Neuts % (Manual) 82.0 Lymphocytes % (Manual) 4.0 L (20.5-60.0) % Monocytes % (Manual) 14.0 H (1.7-12.0) % Eosinophils % (Manual) 0.0 L (0.9-7.0) % Basophils % (Manual) 0.0 L (0.2-2.0) % Neutrophils # (Manual) 6.31 (1.4-6.5) 10^3/uL Lymphocytes # (Manual) 0.30 L (1.20-3.80) 10^3/uL Monocytes # (Manual) 1.07 H (0.30-0.80) 10^3/uL Eosinophils # (Manual) 0.00 (0.00-0.70) 10^3/uL Basophils # (Manual) 0.00 (0.00-0.10) 10^3/uL PT 10.4 (9.0-11.6) sec INR 0.98 Sodium 136 (136-145) mmol/L Potassium 3.9 (3.5-5.1) mmol/L Chloride 99 (98-107) mmol/L Carbon Dioxide 26.7 (21.0-32.0) mmol/L Anion Gap 14.2 BUN 14.0 (7.0-18.0) mg/dL Creatinine 0.74 (0.55-1.02) mg/dL Est GFR ( Amer) >60 (>=60) Est GFR (Non-Af Amer) >60 (>=60) BUN/Creatinine Ratio 18.9 Glucose 88 (74-106) mg/dL Calcium 9.1 (8.5-10.1) mg/dL Total Bilirubin 0.2 (0.2-1.0) mg/dL AST 44 H (15-37) U/L ALT 54 (14-59) U/L Alkaline Phosphatase 223 H (46-116) U/L Troponin I High Sens 4.6 (4.0-51.3) pg/mL Total Protein 8.0 (6.4-8.2) g/dL Albumin 3.7 (3.4-5.0) g/dL Globulin 4.3 g/dL Albumin/Globulin Ratio 0.9 Discharge Plan Discharge Chief Complaint: Headache Clinical Impression: Subtherapeutic anticoagulation Acute intractable headache Qualifiers: Headache type: unspecified Qualified Code(s): R51.9 - Headache, unspecified Patient Disposition: [facility] Time of Disposition Decision: 16:56 Discharge Location: [facility]
[2023-02-28 11:44] LABS: Hematocrit 39.3 % (36.0-48.0); Hemoglobin 12.5 g/dL (12.0-16.0); Mean Corpuscular HGB Conc 31.8 g/dL (29.9-35.2); Mean Corpuscular Hemoglobin 30.4 pg (26.7-34.0); Mean Corpuscular Volume 95.6 fL (81.0-99.0); Mean Platelet Volume 10.4 fL (9.5-13.5); Platelet Count 287 10^3/uL (150-450); Red Blood Count 4.11 10^6/uL (4.20-5.40); Red Cell Distribution Width 15.1 % (11.0-15.0); White Blood Count 7.7 10^3/uL (4.0-11.0)
[2023-02-28] MEDS: MORPHINE SULFATE 2 MG/ML SYRINGE IV (11:59)
[2023-02-28 12:02] LABS: Alanine Aminotransferase 54 U/L (14-59); Albumin Globulin Ratio 0.9; Albumin Level 3.7 g/dL (3.4-5.0); Alkaline Phosphatase 223 U/L (46-116); Anion Gap 14.2; Aspartate Amino Transferase 44 U/L (15-37); BUN Creatinine Ratio 18.9; Bilirubin Total 0.2 mg/dL (0.2-1.0); Calcium 9.1 mg/dL (8.5-10.1); Carbon Dioxide 26.7 mmol/L (21.0-32.0); Chloride 99 mmol/L (98-107); Estimated GFR (African America >60 (>=60); Estimated GFR (Non-African Ame >60 (>=60); Globulin 4.3 g/dL; Glucose 88 mg/dL (74-106); Potassium 3.9 mmol/L (3.5-5.1); Sodium 136 mmol/L (136-145)
[2023-02-28 12:04] LABS: Troponin I High Sensitivity 4.6 pg/mL (4.0-51.3)
[2023-02-28 12:05] LABS: INR 0.98; Prothrombin Time 10.4 sec (9.0-11.6)
[2023-02-28 12:34] LABS: Segmented Neut Absolute Manual 6.31 10^3/uL (1.4-6.5)
[2023-02-28 12:35] LABS: Monocytes Absolute Manual 1.07 10^3/uL (0.30-0.80)
[2023-02-28] MEDS: METHYLPREDNISOLONE SOD SUCC PF 40 MG/ML VIAL IVP (13:02)
[2023-02-28] MEDS: FAMOTIDINE/PF 20 MG/2 ML VIAL IV (13:02)
[2023-02-28] MEDS: KETOROLAC TROMETHAMINE 30 MG/ML VIAL 15 MG IVP (13:03)
[2023-02-28] MEDS: ONDANSETRON PF 4 MG/2 ML VIAL IV ×2 (15:06→18:08)
[2023-02-28] MEDS: DIPHENHYDRAMINE HCL 50 MG/ML (1ML) VIAL 25 MG IV (16:24)
[2023-02-28] MEDS: HYDRALAZINE HCL 20 MG/ML VIAL 5 MG IVP (17:04)
== END 2023-02-28 18:09 | disposition short-term general hospital (02) ==
PROVIDERS: Emergency Provider Emergency Medicine; PCP Family Medicine
DX: R51.9 Headache, unspecified (principal); R79.1 Abnormal coagulation profile; M79.7 Fibromyalgia; D68.59 Other primary thrombophilia; Z90.710 Acquired absence of both cervix and uterus; Z79.899 Other long term (current) drug therapy; Z95.828 Presence of other vascular implants and grafts; Z86.73 Personal history of transient ischemic attack (TIA), and cerebral infarction without residual deficits; Z98.890 Other specified postprocedural states; Z90.49 Acquired absence of other specified parts of digestive tract
CPT/HCPCS: 36415; 70450; 80053; 84484; 85027; 85610; 93005; 96374; 96375; 96376; 99285; J2920

== ENCOUNTER 2023-04-18 09:40 | Observation (INO) | payer MEDICARE, OTHER, SELFPAY ==
[2023-04-18] VITALS (7 sets, daily range): BP systolic 155–181; BP diastolic 86–108; PULSE 87–95; RESP 16–18; TEMP 36.6–37; O2SAT 94–100; BMI 21.8; BMI 22.4
--- NOTE | 2023-04-18 09:53 | ECG_ITS ---
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
--- NOTE | 2023-04-18 09:54 | CT_ITS ---
[address] [address] Patient Name: FEROZ DUTTA MRN: [id number] date: 1960 Sex: F Assigned Patient Location: ER Current Patient Location: ER Accession/Order Number: [id number] Exam Date: 04/18/2023 10:35 Report Date: 04/18/2023 10:52 At the request of: JENNIFER BROWN Procedure: CT abdomen pelvis wo con EXAMINATION: CT abdomen pelvis wo con HISTORY: abd pain COMPARISON: 12/22/2022 TECHNIQUE: Axial, Coronal, and Sagittal images were created without IV contrast. Dose reduction techniques were achieved by using automated exposure control and/or adjustment of mA and/or kV according to patient size and/or use of iterative reconstruction technique. FINDINGS: LUNG BASES: No visible pulmonary or pleural disease. LIVER: Hyperdensity inferior right hepatic lobe axial image #49, nonspecific but stable BILIARY: Surgical clips from cholecystectomy PANCREAS: No lesion, fluid collection, ductal dilatation, or atrophy. SPLEEN: No enlargement or focal lesion. ADRENALS: No mass or enlargement. KIDNEYS: Nonobstructing 4 mm left nephrolith. No hydronephrosis or hydroureter. Nonobstructing stones BOWEL/MESENTERY: No visible mass, obstruction, or bowel wall thickening. AORTA/VASCULAR: IVC filter. Bilateral common iliac vein stents RETROPERITONEUM: No mass or adenopathy. LYMPH NODES: No adenopathy. URINARY BLADDER: No visible focal wall thickening, lesion, or calculus. PELVIC ORGANS: Hysterectomy ABDOMINAL WALL: No mass or hernia. BONES: No bony lesion or fracture. Left femoral head avascular necrosis OTHER: Negative. CT/CT abdomen pelvis wo con IMPRESSION: No acute intraperitoneal abnormality No obstructive uropathy Electronically authenticated by: TATIANA NOBLE Date: 04/18/2023 10:52
[2023-04-18] MEDS: ONDANSETRON PF 4 MG/2 ML VIAL IV ×2 (10:19→16:54)
[2023-04-18] MEDS: 0.9 % SODIUM CHLORIDE 1,000 ML 1000 ML IV (10:19)
[2023-04-18] MEDS: MORPHINE SULFATE 2 MG/ML SYRINGE IV (10:19)
--- OUTSIDE RECORDS SUMMARY | 2023-04-18 10:24 | XMS_ITS | CCD ---
Author Name Unknown Address [address] [place] [address] Organization [facility] Care Team Providers Care Director Bioinformatics Name Role Phone SHAD, ABDULAZIM Unavailable Unavailable SHAD, ABDULAZIM Unavailable Unavailable HOY, EZEKIEL Unavailable Unavailable HOY, EZEKIEL Unavailable Unavailable OR Unavailable Unavailable SHAD, ABDULAZIM Unavailable Unavailable OR Unavailable Unavailable AGUSTO RON Unavailable Unavailable SHAD, ABDULAZIM Unavailable Unavailable SHAD, ABDULAZIM Unavailable Unavailable SHAD, ABDULAZIM Unavailable Unavailable HOY, EZEKIEL Unavailable Unavailable NAWRAS, ALI T Unavailable Unavailable NAWRAS, ALI T Unavailable Unavailable HOY, EZEKIEL Unavailable Unavailable HOY, EZEKIEL Unavailable Unavailable OR Unavailable Unavailable NAWRAS, ALI T Unavailable Unavailable OR Unavailable Unavailable AGUSTO RON Unavailable Unavailable Ezekiel Deras Primary Care Physician DR EZEKIEL TELLO Attending Unavailable HOY Ciro, DR FALCON Admitting Unavailable DR EZEKIEL TELLO Primary Care Unavailable KOBE CHOUDHARY Attending Unavailable KOBE CHOUDHARY Admitting Unavailable MARLON ARREOLA Consulting Unavailable DR EZEKIEL TELLO Primary Care Unavailable KOBE CHOUDHARY Consulting Unavailable DR BRUCE HILL Consulting Unavailable ZECHARIAH MCDONALD Admitting Unavailable ZECHARIAH MCDONALD Attending Unavailable DR EZEKIEL TELLO Primary Care Unavailable DR RENATO CANO Consulting Unavailable JANNETH, DR SARAH Doyle Admitting UnavailDR SARAH Solis Attending UnavailDR EZEKIEL Crawford Primary Care Unavailable JENIFER SAPP Attending Unavailable JENIFER SAPP Admitting Unavailable JENIFER SAPP Consulting Unavailable DR EZEKIEL TELLO Primary Care Unavailable STEVE BENÍTEZ Consulting Unavailable DR EZEKIEL TELLO Attending Unavailable DR EZEKIEL TELLO Primary Care Unavailable DR EZEKIEL TELLO Admitting Unavailable HOY ., DR FALCON Consulting Unavailable JANNETH, DR SARAH Doyle Consulting Unavailrom HILL, DR BRUCE Lr Consulting Unavailable EZEKIEL DAVIDSON Consulting Unavailable UNLU, SOLO Consulting Unavailable JANIE QUIJANO Consulting Unavailable HOY ., DR FALCON Attending Unavailable HOY ., DR FALCON Admomar Unavailable HOY ., DR FALCON Primary Care Unavailable HOY ., DR FALCON Consulting Unavailable WEST, DR TATIANA Mcdonough Consulting Unavailable RODRICK AYOUB Consulting Unavailable HOY ., DR FALCON Admomar Unavailable HOY ., DR FALCON Attending Unavailable HAY ., DR GROSS Procedure Practitioner Unavailab le HOY ., DR FALCON Consulting Unavailable HOY ., DR FALCON Primary Care Unavailable WEST, DR TATIANA Mcdonough Consulting Unavailable HAY ., DR GROSS Consulting Unavailable NEFCY, STEPHANIE Consulting Unavailable HOY ., DR FALCON Attending Unavailable HOY ., DR FALCON Admomar Unavailable HOY ., DR FALCON Primary Care Unavailable HOY ., DR FALCON Consulting Unavailable WEST, DR TATIANA Mcdonough Consulting Unavailable HOY ., DR FALCON Procedure Practitioner Unavail able SERGIO, DR BRUCE Lr Consulting Unavailable PAY ., DR WHITAKER Consulting Unavailable VICK ., ALICIA Consulting Unavailable JOHN, MARGARITA Consulting Unavailable FILIPPONE, KALEY Consulting Unavailable DARAMOLA, FEROZ Consulting Unavailable HOY ., DR FALCON Attending Unavailable HOY ., DR FALCON Admomar Unavailable HOY ., DR FALCON Primary Care Unavailable HOY ., DR FALCON Consulting Unavailable HAY ., DR GROSS Consulting Unavailable KNABE, STEPHANIE Consulting Unavailable HOY ., DR FALCON Admomar Unavailable HOY ., DR FALCON Attending Unavailable ZAFAR, DR JARVIS Lr Consulting Unavailable HOY ., DR FALCON Primary Care Unavailable HOY ., DR FALCON Consulting Unavailable GONZÁLES ., DR BEVERLY Jain Consulting Unavailable WEST, DR TATIANA Mcdonough Consulting Unavailable PAY ., DR WHITAKER Consulting Unavailable DERROW, TERESA Consulting Unavailable MALCOLM ., DR FELIX Rahman Admitting Unavailable MALCOLM ., DR FELIX Rahman Attending Unavailable MALCOLM ., DR FELIX Rahman Consulting Unavailable HOY ., DR FALCON Primary Care Unavailable HOY ., DR FALCON Attending Unavailable HOY ., DR EZEKIEL Kim Unavailable HOY ., DR FLACON Primary Care Unavailable HOY ., DR FALCON Admomar Unavailable HOY ., DR FALCON Attending Unavailable HOY ., DR FALCON Primary Care Unavailable HOY ., DR FALCON Consulting Unavailable HOY ., DR FLACON Admitting Unavailable HOY ., DR FALCON Attending Unavailable HOY ., DR FALCON Consulting Unavailable HOY ., DR FALCON Primary Care Unavailable WEST, DR TATIANA Mcdonough Consulting Unavailable MALCOLM ., DR FELIX Rahman Admitting Unavailable MALCOLM ., DR FELIX Rahman Attending Unavailable HOY ., DR FALCON Primary Care Unavailable HOY ., DR FALCON Consulting Unavailable MALCOLM ., DR FELIX Rahman Consulting Unavailable NUNES ., REBECCA Consulting Unavailable MALCOLM ., DR FELIX Rahman Admitting Unavailable MALCOLM ., DR FELIX Rahman Attending Unavailable HOY ., DR FALCON Primary Care Unavailable HOY ., DR FALCON Consulting Unavailable MALCOLM ., DR FELIX Rahman Consulting Unavailable KARENA MILLS Consulting Unavailable NUNES ., REBECCA Consulting Unavailable MALCOLM ., DR FELIX Rahman Admitting Unavailable MALCOLM ., DR FELIX Rahman Attending Unavailable HOY ., DR FALCON Primary Care Unavailable MALCOLM ., DR FELIX Rahman Attending Unavailable MALCOLM ., DR FELIX Rahman Admitting Unavailable MALCOLM ., DR FELIX Rahman Consulting Unavailable HOY ., DR FALCON Primary Care Unavailable CESIA JAIME Consulting Unavailable HOY ., DR FALCON Primary Care Unavailable MALCOLM ., DR FELIX Rahman Attending Unavailable MALCOLM ., DR FELIX Rahman Admitting Unavailable MALCOLM ., DR FELIX Rahman Consulting Unavailable POOLE MOSES Consulting Unavailable MALCOLM ., DR FELIX Rahman Attending Unavailable MALCOLM ., DR FELIX Rahman Admitting Unavailable MALCOLM ., DR FELIX Rahman Consulting Unavailable HOY ., DR FALCON Primary Care Unavailable ELVIN RAMON Consulting Unavailable NUNES ., REBECCA Consulting Unavailable MALCOLM ., DR FELIX Rahman Attending Unavailable MALCOLM ., DR FELIX Rahman Admitting Unavailable HOY ., DR FALCON Primary Care Unavailable LAKSHMIPATHY ., NARENDRANATH Admitting Tawny vailable LAKSHMIPATHY ., NARENDRANATH Consulting Tawny vailable LAKSHMIPATHY ., NARENDCASSANDRAATH Attending Tawny vailable HOY ., DR FALCON Primary Care Unavailable LAKSHMIPATHY ., NARENDRANATH Admitting Tawny vailable LAKSHMIPATHY ., NARKERAATH Attending Tawny vailable HOY ., DR FALCON Primary Care Unavailable NUNES ., REBECCA Consulting Unavailable MALCOLM ., DR FELIX Rahman Attending Unavailable MALCOLM ., DR FELIX Rahman Admitting Unavailable HOY ., DR FALCON Primary Care Unavailable FAWWAD, BLANCAS H Admitting Unavailable FAWWAD, BLANCAS H Attending Unavailable HOY ., DR FALCON Primary Care Unavailable FAWWAD, BLANCAS H Attending Unavailable FAWWAD, BLANCAS H Admitting Unavailable HOY ., DR FALCON Primary Care Unavailable FAWWAD, BLANCAS H Admitting Unavailable FAWWAD, BLANCAS H Attending Unavailable HOY ., DR FALCON Primary Care Unavailable FAWWAD, BLANCAS H Attending Unavailable FAWWAD, BLANCAS H Admitting Unavailable HOY ., DR FALCON Primary Care Unavailable FAWWAD, BLANCAS H Attending Unavailable FAWWAD, BLANCAS H Admitting Unavailable HOY ., DR FALCON Primary Care Unavailable FAWWAD, BLANCAS H Attending Unavailable FAWWAD, BLANCAS H Admitting Unavailable HOY ., DR FALCON Primary Care Unavailable FAWWAD, BLANCAS H Attending Unavailable FAWWAD, BLANCAS H Admitting Unavailable HOY ., DR FALCON Primary Care Unavailable FAWWAD, BLANCAS H Admitting Unavailable FAWWAD, BLANCAS H Attending Unavailable HOY ., DR FALCON Primary Care Unavailable FAWWAD, BLANCAS H Attending Unavailable HOY ., DR FALCON Primary Care Unavailable FAWWAD, BLANCAS H Admitting Unavailable FAWWAD, BLANCAS H Attending Unavailable HOY ., DR FALCON Primary Care Unavailable FAWWAD, BLANCAS H Admitting Unavailable MARLON ARREOLA Consulting Unavailable EASTON ., KOBE Attending Unavailable EASTON ., KOBE Admitting Unavailable HOY ., DR FALCON Primary Care Unavailable MARGARITA LOPEZ Consulting Unavailable ARLENE HATCH Consulting Unavailable HAY ., DR GROSS Consulting Unavailable HAY ., DR GROSS Attending Unavailable HAY ., DR GROSS Admitting Unavailable HOY ., DR FALCON Primary Care Unavailable HOY ., DR FALCON Attending Unavailable HOY ., DR FALCON Primary Care Unavailable HOY ., DR FALCON Admitting Unavailable HOY ., DR FALCON Consulting Unavailable ZITERRENCE, DR BRUCE Lr Consulting Unavailable REBECCA FARMER Consulting Unavailable YUN ., DR FELIX Rahman Attending Unavailable MALCOLM ., DR FELIX Rahman Admitting Unavailable HOY ., DR FALCON Primary Care Unavailable MALCOLM ., DR FELIX Rahman Attending Unavailable MALCOLM ., DR FELIX Rahman Admitting Unavailable MALCOLM ., DR FELIX Rahman Consulting Unavailable HOY ., DR FALCON Primary Care Unavailable MARKER ., DR FARNSWORTH Attending Unavailable MARKER ., DR FARNSWORTH Admitting Unavailable HOY ., DR FALCON Primary Care Unavailable MARKER ., DR FARNSWORTH Consulting Unavailable NEWATIA, LISA Consulting Unavailable HOY ., DR FALCON Attending Unavailable HOY ., DR FALCON Admitting Unavailable HOY ., DR FALCON Primary Care Unavailable HOY ., DR FALCON Consulting Unavailable ZIEBER, DR BRUCE Lr Consulting Unavailable FAWWAD, BLANCAS H Consulting Unavailable FAWWAD, BLANCAS H Admitting Unavailable FAWWAD, BLANCAS H Attending Unavailable HOY ., DR FALCON Primary Care Unavailable LAKSHMIPATHY ., NARENDRANATH Consulting Tawny vailable LAKSHMIPATHY ., NARFREDRICK Attending Tawny vailable HOY ., DR FALCON Primary Care Unavailable LAKSHMIPATHY ., NARFREDRICK Admitting Tawny vailable HOY ., DR FALCON Primary Care Unavailable MALCOLM ., DR FELIX Rahman Attending Unavailable MALCOLM ., DR FELIX Rahman Admitting Unavailable MALCOLM ., DR FELIX Rahman Consulting Unavailable MALCOLM ., DR FELIX Rahman Admitting Unavailable MALCOLM ., DR FELIX Rahman Attending Unavailable MALCOLM ., DR FELIX Rahman Consulting Unavailable HOY ., DR FALCON Primary Care Unavailable TENNILLE LARA Referring Unavailable Allergies Allergy Classification Reported Allergen(s) Allergy Type Date of Onset Reaction(s) Facility (4 sources) morphine; Translations: [MORPHINE] Drug Allergy 08-05-19 18 Anaphylaxis (disorder) [facility] (4 sources) prochlorperazine Drug Allergy 02-04-20 [facility] (4 sources) Iodinated Contrast Media - IV Dye Drug allergy (disorder) 02-04-20 [facility] (1 source) Baclofen; Translations: [baclofen] Drug Allergy Anaphylaxis (disorder) [facility] (1 source) cefdinir; Translations: [cefdinir] Drug Allergy Weal (disorder) [facility] (1 source) Contrast media; Translations: [contrast media (iodine-based)] Drug allergy Anaphylaxis (disorder) [facility] (1 source) Prochlorperazine; Translations: [prochlorperazine] Drug Allergy Weal (disorder) [facility] (2 sources) Clindamycin Drug Allergy 10-05-19 17 [facility] (2 sources) Dihydroergotamine Drug Allergy 07-13-19 21 [facility] (1 source) HYDROmorphone Drug Allergy 05-11-19 22 [facility] (1 source) Valproate Drug Allergy [facility] (1 source) ALLERGIES NOT ON FILE; Translations: [ALLERGIES NOT ON FILE] Propensity to adverse reactions (disorder) [facility] Medications Current Medications Medication Drug Class(es) Dates Sig (Normalized) Sig (Original) albuterol 0.83 mg/ml inhalation solution (1 source) beta2-Adrenergic Agonist Start: 09-23-2021 take 2.5 mg by inhalation four times daily albuterol 0.083% Inh Elvira 3 mL 2.5 mg, 3 mL, NEB, QID, Refill(s) 0 Start Date: 09/23/21 Status: Ordered amylase [id number] unt / lipase [id number] unt / protease [id number] unt delayed release oral capsule (1 source) Start: 09-23-2021 take 1 capsule by mouth three times daily Creon 24,000 units oral delayed release capsule = 1 cap(s), Oral, TID, Refills(s) 0 Start Date: 09/23/21 Status: Ordered celecoxib 200 mg oral capsule (1 source) Nonsteroidal Anti-inflammatory Drug Start: 09-23-2021 take 1 capsule by mouth twice daily CeleBREX 200 mg Cap 200 mg = 1 cap(s), Oral, BID, Refills(s) 0 Start Date: 09/23/21 Status: Ordered cyproheptadine hydrochloride 4 mg oral tablet (1 source) Start: 09-23-2021 take 1 tablet by mouth at bedtime cyproheptadine 4 mg Tab 4 mg = 1 tab(s), Oral, Bedtime, Refills(s) 0 Start Date: 09/23/21 Status: Ordered dicyclomine hydrochloride 20 mg oral tablet (1 source) Anticholinergic Start: 09-23-2021 take 1 tablet by mouth three times daily dicyclomine 20 mg Tab 20 mg = 1 tab(s), Oral, TID, Refills(s) 0 Start Date: 09/23/21 Status: Ordered ferrous sulfate 325 mg delayed release oral tablet (1 source) Start: 09-23-2021 take 1 tablet by mouth three times daily ferrous sulfate 325 mg oral enteric coated tablet 325 mg = 1 tab(s), Oral, TID, Refills(s) 0 Start Date: 09/23/21 Status: Ordered gabapentin 100 mg oral capsule (1 source) Anti-epileptic Agent Start: 09-23-2021 take 5 capsules by mouth three times daily gabapentin 100 mg Cap 500 mg = 5 cap(s), Oral, TID, Refills(s) 0 Start Date: 09/23/21 Status: Ordered hydrOXYzine pamoate 25 mg oral capsule (1 source) Antihistamine Start: 09-23-2021 take 1 capsule by mouth four times daily hydrOXYzine pamoate 25 mg Cap 25 mg = 1 cap(s), Oral, QID, Refills(s) 0 Start Date: 09/23/21 Status: Ordered melatonin 10 mg oral capsule (1 source) Start: 09-23-2021 take 1 capsule by mouth once daily at bedtime Melatonin 10 mg oral capsule 10 mg = 1 cap(s), Oral, Once a day (at bedtime), Refills(s) 0 Start Date: 09/23/21 Status: Ordered ondansetron 4 mg disintegrating oral tablet (1 source) Serotonin-3 Receptor Antagonist Start: 09-23-2021 take 1 tablet by mouth four times daily ondansetron 4 mg Dis Tab 4 mg = 1 tab(s), Oral, QID, Refills(s) 0 Start Date: 09/23/21 Status: Ordered Miralax (1 source) Osmotic Laxative Start: 09-23-2021 take 17 g by mouth once daily MiraLax 17 gm, Oral, Daily, Refill(s) 0 Start Date: 09/23/21 Status: Ordered sucralfate 1000 mg oral tablet (1 source) Aluminum Complex Start: 09-23-2021 sucralfate 1 g Tab 1 gm = 1 tab(s), Oral, QIDACHS, Refills(s) 0 Start Date: 09/23/21 Status: Ordered temazepam 30 mg oral capsule (1 source) Benzodiazepine Start: 09-23-2021 take 1 capsule by mouth once daily at bedtime as needed for sleep temazepam 30 mg Cap 30 mg = 1 cap(s), Oral, Once a day (at bedtime), PRN for sleep, Refills(s) 0 Start Date: 09/23/21 Status: Ordered tiZANidine 4 mg oral tablet (1 source) Central alpha-2 Adrenergic Agonist Start: 09-23-2021 take 2 tablets by mouth at bedtime tiZANidine 4 mg Tab 8 mg = 2 tab(s), Oral, Bedtime, Refills(s) 0 Start Date: 09/23/21 Status: Ordered traZODone hydrochloride 50 mg oral tablet (1 source) Serotonin Reuptake Inhibitor Start: 09-23-2021 take 1 tablet by mouth once daily at bedtime traZODONE 50 mg Tab 50 mg = 1 tab(s), Oral, Once a day (at bedtime), Refills(s) 0 Start Date: 09/23/21 Status: Ordered warfarin sodium 5 mg oral tablet (1 source) Vitamin K Antagonist Start: 09-23-2021 warfarin 5 mg Tab as directed, Refills(s) 0 Start Date: 09/23/21 Status: Ordered Completed/Discontinued Medications Medication Drug Class(es) Dates Sig (Normalized) Sig (Original) potassium chloride 20 meq extended release oral tablet (1 source) Start: 09-23-2021 take 1 tablet by mouth three times daily potassium chloride 20 mEq ER Tab 20 mEq = 1 tab(s), Oral, TID, Refills(s) 0 Start Date: 09/23/21 Status: Ordered Problems Active Problems Problem Classification Problem Date Documented Da te Episodic/Chronic Abdominal hernia (1 source) Diaphragmatic hernia without obstruction or gangrene; Translations: [DIAPH HERNIA W/O OBST/GANGRENE] Onset: 3 Episodic Abdominal pain (4 sources) Generalized abdominal pain; Translations: [Unspecified abdominal pain] Onset: 3 Episodic Acute and unspecified renal failure (1 source) Acute kidney failure, unspecified; Translations: [ACUTE KIDNEY FAILURE UNSPECIFIED] Onset: 3 Episodic Acute posthemorrhagic anemia (5 sources) Acute posthemorrhagic anemia; Translations: [ACUTE POSTHEMORRHAGIC ANEMIA] Onset: 2 Episodic Anxiety disorders (1 source) Other specified anxiety disorders; Translations: [OTHER SPECIFIED ANXIETY DISORDERS] Onset: 3 Chronic Asthma (1 source) Unspecified asthma, uncomplicated; Translations: [UNSPECIFIED ASTHMA UNCOMPLICATED] Onset: 3 Chronic Biliary tract disease (1 source) Other specified diseases of biliary tract; Translations: [OTHER SPECIFIED DISEASES OF BILIARY TRACT] Onset: 8 Chronic Calculus of urinary tract (2 sources) History of calculus of kidney; Translations: [Personal history of urinary calculi] Onset: 3 09-23-2021 Episodic Cardiac dysrhythmias (3 sources) Sinus tachycardia; Translations: [Tachycardia, unspecified] Onset: 2 09-23-2021 Episodic Chronic obstructive pulmonary disease and bronchiectasis (1 source) Chronic obstructive lung disease 09-23-2021 Chronic Coagulation and hemorrhagic disorders (2 sources) Protein S deficiency disease; Translations: [Other primary thrombophilia] Onset: 3 09-23-2021 Chronic Coronary atherosclerosis and other heart disease (3 sources) Atherosclerotic heart disease of [place] coronary artery without angina pectoris; Translations: [Coronary atherosclerosis] Onset: 8 09-23-2021 Chronic Deficiency and other anemia (1 source) Iron deficiency anemia 09-23-2021 Episodic Deficiency and other anemia (1 source) Iron deficiency anemia, unspecified; Translations: [IRON DEFICIENCY ANEMIA UNSPECIFIED] Onset: 3 Episodic Diverticulosis and diverticulitis (6 sources) Diverticulitis of large intestine without perforation or abscess without bleeding; Translations: [Diverticulitis of large intestine without perforation or abscess with bleeding] Onset: 2 Chronic E Codes: Fall (1 source) Unspecified fall, initial encounter; Translations: [UNSPECIFIED FALL INITIAL ENCOUNTER] Onset: 3 Episodic Epilepsy; convulsions (1 source) Seizure disorder 09-23-2021 Episodic Esophageal disorders (2 sources) Gastroesophageal reflux disease; Translations: [Gastro-esophageal reflux disease without esophagitis] Onset: 3 09-23-2021 Chronic Essential hypertension (5 sources) Essential (primary) hypertension; Translations: [ESSENTIAL PRIMARY HYPERTENSION] Onset: 2 Chronic Fever of unknown origin (1 source) Fever, unspecified; Translations: [FEVER UNSPECIFIED] Onset: 3 Episodic Fluid and electrolyte disorders (3 sources) Hypo-osmolality and hyponatremia; Translations: [Hypokalemia] Onset: 3 Episodic Genitourinary congenital anomalies (1 source) Polycystic kidney, unspecified; Translations: [POLYCYSTIC KIDNEY UNSPECIFIED] Onset: 3 Chronic Genitourinary symptoms and ill-defined conditions (1 source) Personal history of urinary (tract) infections; Translations: [PERS HX URINARY TRACT INFECTIONS] Onset: 3 Episodic Headache; including migraine (2 sources) Migraine; Translations: [Migraine, unspecified, not intractable, without status migrainosus] Onset: 3 09-23-2021 Chronic Headache; including migraine (5 sources) Headache; including migraine; Translations: [HEADACHE UNSPECIFIED] Onset: 2 Noninfectious gastroenteritis (1 source) Noninfective gastroenteritis and colitis, unspecified; Translations: [NONINFECTIVE GE AND COLITIS UNS] Onset: 3 Episodic Osteoarthritis (1 source) Unspecified osteoarthritis, unspecified site; Translations: [UNSPECIFIED OSTEOARTHRITIS UNS SITE] Onset: 3 Chronic Osteoporosis (3 sources) Age-related osteoporosis without current pathological fracture; Translations: [Osteoporosis] Onset: 8 09-23-2021 Chronic Other aftercare (1 source) Other residential (current) drug therapy; Translations: [OTH CEMETERY MANAGER CURRENT DRUG THERAPY] Onset: 3 Episodic Other aftercare (1 source) nursing home (current) use of anticoagulants; Translations: [CEMETERY MANAGER CURRNT USE ANTICOAGULANTS] Onset: 3 Episodic Other aftercare (5 sources) Encounter for therapeutic drug level monitoring; Translations: [ENC THERAPEUTC DRUG LEVL MONITORING] Onset: 3 Episodic Other circulatory disease (2 sources) Personal history of transient ischemic attack (TIA), and cerebral infarction without residual deficits; Translations: [PRSNL HX OF TIA (TIA), AND CEREB INFRC W/O RESID DEFICITS] Onset: 8 Episodic Other circulatory disease (1 source) Orthostatic hypotension 09-23-2021 Episodic Other connective tissue disease (2 sources) Fibromyalgia; Translations: [FIBROMYALGIA] Onset: 8 Episodic Other gastrointestinal disorders (1 source) Irritable bowel syndrome 09-23-2021 Chronic Other gastrointestinal disorders (1 source) Irritable bowel syndrome without diarrhea; Translations: [IRRITABLE BOWEL SYND W/O DIARRHEA] Onset: 3 Chronic Other gastrointestinal disorders (1 source) History of pancreatitis 09-23-2021 Episodic Other infections; including parasitic (1 source) History of bacterial infection 09-23-2021 Episodic Other infections; including parasitic (1 source) History of viral hepatitis 09-23-2021 Episodic Other lower respiratory disease (1 source) Personal history of pneumonia (recurrent); Translations: [PERSONAL HX OF PNEUMONIA RECURRENT] Onset: 3 Episodic Other nervous system disorders (1 source) Brachial plexus disorders; Translations: [BRACHIAL PLEXUS DISORDERS] Onset: 8 Chronic Other nervous system disorders (1 source) Difficulty in walking, not elsewhere classified; Translations: [DIFFICULTY IN WALKING NEC] Onset: 3 Chronic Other nervous system disorders (1 source) Other chronic pain; Translations: [OTHER CHRONIC PAIN] Onset: 3 Chronic Other nervous system disorders (4 sources) Other specified mononeuropathies; Translations: [OTHER SPECIFIED MONONEUROPATHIES] Onset: 3 Chronic Other non-traumatic joint disorders (3 sources) Pain in left knee; Translations: [PAIN IN LEFT KNEE] Onset: 3 Episodic Other nutritional; endocrine; and metabolic disorders (1 source) Hypocalcemia; Translations: [HYPOCALCEMIA] Onset: 3 Chronic Other screening for suspected conditions (not mental disorders or infectious disease) (1 source) Other specified abnormal findings of blood chemistry; Translations: [OTH SPEC ABNORMAL FINDINGS BLD CHEM] Onset: 3 Episodic Other skin disorders (4 sources) Localized swelling, mass and lump, trunk; Translations: [LOCALIZD SWELLING MASS AND LUMP TRUNK] Onset: 3 Episodic Pancreatic disorders (4 sources) Other chronic pancreatitis; Translations: [OTHER CHRONIC PANCREATITIS] Onset: 8 Chronic Pathological fracture (1 source) Pathological fracture, right hand, initial encounter for fracture; Translations: [PATH FX RT HAND INITIAL ENCOUNTER] Onset: 3 Episodic Peripheral and visceral atherosclerosis (2 sources) Peripheral vascular disease, unspecified; Translations: [Peripheral vascular disease] Onset: 3 09-23-2021 Chronic Phlebitis; thrombophlebitis and thromboembolism (7 sources) H/O: Deep vein thrombosis; Translations: [Personal history of other venous thrombosis and embolism] Onset: 3 09-23-2021 Episodic Residual codes; unclassified (1 source) Obstructive sleep apnea syndrome 09-23-2021 Chronic Residual codes; unclassified (1 source) Insomnia 09-23-2021 Episodic Residual codes; unclassified (1 source) Acquired absence of other specified parts of digestive tract; Translations: [ACQ ABSENCE OTH PART DIGESTV TRACT] Onset: 3 Episodic Residual codes; unclassified (1 source) Acquired absence of both cervix and uterus; Translations: [ACQUIRED ABSENCE BOTH CERVIX AND UTERUS] Onset: 3 Episodic Spondylosis; intervertebral disc disorders; other back problems (13 sources) Cervical spondylosis; Translations: [Spondylosis without myelopathy or radiculopathy, lumbar region] Onset: 2 09-23-2021 Chronic Spondylosis; intervertebral disc disorders; other back problems (17 sources) Cervical radiculopathy; Translations: [Lumbar radiculopathy] Onset: 2 09-23-2021 Episodic Superficial injury; contusion (1 source) Contusion of left hip, initial encounter; Translations: [CONTUSION LEFT HIP INITIAL ENC] Onset: 3 Episodic Unclassified (2 sources) Unknown / UNK(Unknown) Onset: 8 Unclassified (1 source) Body mass index 20-24 - normal 09-27-2021 Unclassified (1 source) Drug therapy finding 09-23-2021 Unclassified (1 source) CONTACT W/AND (SUSP) EXPOS COVID-19; Translations: [CONTACT W/AND (SUSP) EXPOS COVID-19] Onset: 3 Unclassified (4 sources) LOW BACK PAIN, UNSPECIFIED; Translations: [LOW BACK PAIN, UNSPECIFIED] Onset: 2 Varicose veins of lower extremity (1 source) Varicose veins of lower extremity 09-23-2021 Episodic Past or Other Problems Problem Classification Problem Date Documented Da te Episodic/Chronic Conditions associated with dizziness or vertigo (1 source) Dizziness and giddiness; Translations: [DIZZINESS AND GIDDINESS] Onset: 2 Episodic Deficiency and other anemia (4 sources) Anemia, unspecified; Translations: [ANEMIA UNSPECIFIED] Onset: 2 Episodic E Codes: Overexertion (1 source) Slipping, tripping and stumbling without falling due to stepping into hole or opening, initial encounter; Translations: [SLIP STUMBL NO FALL STEP HOLE INIT] Onset: 3 Episodic Gastrointestinal hemorrhage (1 source) Gastrointestinal hemorrhage, unspecified; Translations: [GASTROINTESTINAL HEMORRHAGE UNS] Onset: 2 Episodic Nausea and vomiting (5 sources) Nausea with vomiting, unspecified; Translations: [Vomiting, unspecified] Onset: 2 Episodic Nonspecific chest pain (5 sources) Other chest pain; Translations: [Chest pain, unspecified] Onset: 2 Episodic Other circulatory disease (1 source) Hypotension, unspecified; Translations: [HYPOTENSION UNSPECIFIED] Onset: 2 Episodic Other connective tissue disease (3 sources) Other enthesopathies, not elsewhere classified; Translations: [OTHER ENTHESOPATHIES, NOT ELSEWHERE CLASSIFIED] Onset: 8 Episodic Other connective tissue disease (1 source) Other muscle spasm; Translations: [OTHER MUSCLE SPASM] Onset: 3 Episodic Other connective tissue disease (1 source) Arthrodesis status; Translations: [ARTHRODESIS STATUS] Onset: 2 Episodic Other injuries and conditions due to external causes (4 sources) Unspecified injury of right ankle, initial encounter; Translations: [UNSPECIFIED INJURY RT ANKLE INITIAL] Onset: 3 Episodic Other injuries and conditions due to external causes (1 source) History of falling; Translations: [HISTORY OF FALLING] Onset: 2 Episodic Other lower respiratory disease (1 source) Hyperventilation; Translations: [HYPERVENTILATION] Onset: 3 Episodic Other non-traumatic joint disorders (4 sources) Other instability, left wrist; Translations: [OTHER INSTABILITY, LEFT WRIST] Onset: 8 Episodic Other non-traumatic joint disorders (4 sources) Pain in left hip; Translations: [PAIN IN LEFT HIP] Onset: 2 Episodic Residual codes; unclassified (1 source) Personal history of other specified conditions; Translations: [PERSONAL HISTORY OTH SPEC CONDITION] Onset: 2 Episodic Residual codes; unclassified (4 sources) Procedure and treatment not carried out due to patient leaving prior to being seen by health care provider; Translations: [PROC AND TX NOT CARRIED OUT PT LEAVE] Onset: 2 Episodic Residual codes; unclassified (5 sources) Localized edema; Translations: [LOCALIZED EDEMA] Onset: 2 Episodic Unclassified (1 source) LOW BACK PAIN, UNSPECIFIED; Translations: [LOW BACK PAIN, UNSPECIFIED] Onset: 2 Results Test Name Value Interpretation Reference Range Facility 36on 10-26-2022 36 Call to [place] rené martin pt status and was told she had DC to home 10/19. Couldn't confirm that her line was removed. Call to pt and she verified IV was removed upon discharge from [place]. Normal [facility] 36on 10-10-2022 36 Opat received. Order s confirmed with Analilia at [facility] for meds, labs and EOT. Transferred to [facility] for a follow appt to be scheduled. Normal [facility] CT CHEST WO CONon 08-09-2022 CT CHEST WO CON Normal [facility] NM BONE SC WH BODYon 023 NM BONE SC WH BODY Normal The [facility] CBC AUTO DIFFon 07-31-2022 BASO # 0.1 103/ul Normal 0.0-0.1 The [facility] Comment on above: Performed By: #### C BC ####[facility] [address]xqettw[address] [place] [address]DrCiro Hemphill Basophils/100 WBC (Bld) 1.3 % Normal 0.2-2.0 The [facility] Comment on above: Performed By: #### C BC ####[facility] Vrbulfkczk[address] [place] [address]Dr. Lizandro Hemphill EO # 0.2 103/ul Normal 0.0-0.7 The [facility] Comment on above: Performed By: #### C BC ####[facility] Zyiyjmbnjl6230 [place] [address]Dr. Lizandro Hemphill Eosinophils/100 WBC (Bld) 2.4 % Normal 0.9-7.0 [facility] Comment on above: Performed By: #### C BC ####[facility] Gjopomrhpv[address] [place], [place] [address]Dr. Lizandro Hemphill Erythrocyte distribution width (RBC) [Ratio] 19.4 % Critically high 11.0-15.0 [facility] Comment on above: Performed By: #### C BC ####[facility] Lyxsrwoiyi[address] [place], [place] [address]Dr. Lizandro Hemphill Hematocrit (Bld) [Volume fraction] 39.6 % Normal 36.0-48.0 [facility] Comment on above: Performed By: #### C BC ####[facility] Xdybgunvzn[address] [place], [place] [address]Dr. Lizandro Hemphill Hemoglobin (Bld) [Mass/Vol] 12.4 g/dL Normal 12.0-16.0 The [facility] Comment on above: Performed By: #### C BC ####[facility] Xpuyiwntdx[address] [place], [place] [address]Dr. Lizandro Hemphill IG # 0.02 10e3/ul Normal 0.00-0.03 The [facility] Comment on above: Performed By: #### C BC ####[facility] Dlvsceewwp[address] [place], [place] [address]Dr. Shanikaannie Hemphill IG % 0.3 % Normal 0.0-0.5 The [facility] Comment on above: Performed By: #### C BC ####[facility] Incdfsixhb[address] [place], [place] [address]DrCiro Hemphill LYMPH # 1.1 103/ul Critically low 1.2-3.8 The [facility] Comment on above: Performed By: #### C BC ####[facility] Kgtbuprefi[address] [place] [address]Dr. Lizandro Hemphill Lymphocytes/100 WBC (Bld) 15.3 % Critically low 20.5-60.0 [facility] Comment on above: Performed By: #### C BC ####[facility] Xginlzlnsl[address] [place] [address]DrCiro Hemphill MANUAL DIFF REQ NO Normal [facility] Comment on above: Performed By: #### C BC ####[facility] Ocpzqnbizl[address] [place] [id number]. Lizandro Hemphill MCH (RBC) [Entitic mass] 28.6 pg Normal 26.7-34.0 The [facility] Comment on above: Performed By: #### C BC ####[facility] Onjuxfuwqf[address] [place], [place] [address]Dr. Lizandro Hemphill MCHC (RBC) [Mass/Vol] 31.3 g/dL Normal 29.9-35.2 The [facility] Comment on above: Performed By: #### C BC ####[facility] Bdrktwleza[address] [place], [place] [address]DrCiro Hemphill MCV (RBC) [Entitic vol] 91.5 fL Normal 81.0-99.0 The [facility] Comment on above: Performed By: #### C BC ####[facility] Oietiaqflm8[address] [place] [address]Dr. Lizandro Hemphill MONO # 0.7 103/ul Normal 0.3-0.8 The [facility] Comment on above: Performed By: #### C BC ####[facility] Sdrkbdvemu[address] [place], [place] [id number] Hemphill Monocytes/100 WBC (Bld) 10.5 % Normal 1.7-12.0 The [facility] Comment on above: Performed By: #### C BC ####[facility] Xkjtpbdnls[address] [place], [place] [id number] Hemphill NEUT # 5.0 103/ul Normal 1.4-6.5 [facility] Comment on above: Performed By: #### C BC ####[facility] Kitvliwufe9372 [place] [address]Dr. Lizandro Hemphill Neutrophils/100 WBC (Bld) 70.2 % Normal 43.0-75.0 [facility] Comment on above: Performed By: #### C BC ####[facility] Nhbnefrgzj[address] [place] [id number]. Lizandro Hemphill Platelet mean volume (Bld) [Entitic vol] 10.5 fL Normal 9.5-13.5 [facility] Comment on above: Performed By: #### C BC ####[facility] Ulthuzzqbx6764 [place] [address]Dr. Lizandro Joby PLT 294 103/ul Normal 150-450 The [facility] Comment on above: Performed By: #### C BC ####[facility] Tmxbgfyvhe4030 [place] [address]Dr. Lizandro Hemphill RBC 4.33 106/ul Normal 4.20-5.40 The [facility] Comment on above: Performed By: #### C BC ####[facility] Nzgiyhwktx[address] [place], [place] [id number]. Lizandro Hemphill WBC 7.1 103/ul Normal 4.0-11.0 The [facility] Comment on above: Performed By: #### C BC ####[facility] Luhkfjchfl[address] [place], [place] [id number]. Lizandro Joby CT HIP LT WO CONon 3 CT HIP LT WO CON Normal The [facility] CT KNEE LT WO CONon 08-01-[address] KNEE LT WO CON Normal [facility] PROF 14(COMP METB)on 023 Albumin [Mass/Vol] 3.0 g/dL Critically low 3.4-5.0 Th e [facility] Comment on above: Performed By: #### C MP ####[facility] Beedfbgxav30[address] [place] [address]Dr. Shanikaannie Hemphill Albumin/Globulin [Mass ratio] 0.8 {ratio} Normal The [facility] Comment on above: Performed By: #### C MP ####[facility] Hwsqsxzico6422 [place] [address]Dr. Lizandro Hemphill ALP [Catalytic activity/Vol] 163 U/L Critically high 46-116 [facility] Comment on above: Performed By: #### C MP ####[facility] Tujzvovsqh[address] [place] [address]Dr. Lizandro Hemphill ALT [Catalytic activity/Vol] 76 U/L Critically high 14-59 [facility] Comment on above: Performed By: #### C MP ####[facility] Ryoqrqrmey3993 [place] [address]Dr. Lizandro Hemphill Anion gap [Moles/Vol] 10.8 mmol/L Normal [facility] Comment on above: Performed By: #### C MP ####[facility] Jxtrfcblkd9447 [place] [address]Dr. Lizandro Hemphill AST [Catalytic activity/Vol] 79 U/L Critically high 15-37 [facility] Comment on above: Performed By: #### C MP ####[facility] Egbeogfajm5751 [place] [address]Dr. Lizandro Hemphill Bilirubin [Mass/Vol] 0.1 mg/dL Critically low 0.2-1.0 [facility] Comment on above: Performed By: #### C MP ####[facility] Onpcizypbb9476 [place] [address]Dr. Lizandro Hemphill Calcium [Mass/Vol] 9.2 mg/dL Normal 8.5-10.1 [facility] Comment on above: Performed By: #### C MP ####[facility] Icjkmsifmf1909 [place] [address]Dr. Lizandro Hemphill Chloride [Moles/Vol] 105 mmol/L Normal 98-107 [facility] Comment on above: Performed By: #### C MP ####[facility] Hvysxwsjzy[address] [place], [place] [address]Dr. Lizandro Hemphill CO2 [Moles/Vol] 29.1 mmol/L Normal 21.0-32.0 [facility] Comment on above: Performed By: #### C MP ####[facility] Zkigbdzyep9886 [place] [address]Dr. Lizandro Hemphill Creatinine [Mass/Vol] 0.74 mg/dL Normal 0.55-1.02 The [facility] Comment on above: Performed By: #### C MP ####[facility] Lljwjclmbo9208 [place] [id number]. Lizandro Hemphill EGFR-AF CHADIAN >60 Normal >=60 The [facility] Comment on above: Performed By: #### C MP ####[facility] Qttovefsyr9719 [place] [address]Dr. Lizandro Hemphill EGFR-NON AF CHADIAN >60 Normal >=60 The [facility] Comment on above: Performed By: #### C MP ####[facility] Dnrjecorhw5695 [place] [address]Dr. Lizandro Hemphill Globulin (S) [Mass/Vol] 3.9 g/dL Normal The [facility] Comment on above: Performed By: #### C MP ####[facility] Cxwspevaui[address] [place], [place] [address]Dr. Lizandro Hemphill Glucose [Mass/Vol] 96 mg/dL Normal 74-106 [facility] Comment on above: Performed By: #### C MP ####[facility] Qjhfhpmcbo[address] [place], [place] [address]Dr. Lizandro Hemphill Potassium [Moles/Vol] 3.9 mmol/L Normal 3.5-5.1 The [facility] Comment on above: Performed By: #### C MP ####[facility] Ckgzhciamm[address] [place], [place] [address]Dr. Lizandro Hemphill Protein [Mass/Vol] 6.9 g/dL Normal 6.4-8.2 The [facility] Comment on above: Performed By: #### C MP ####[facility] Fivciasjlh4[address] [place], [place] [address]Dr. Lizandro Hemphill Sodium [Moles/Vol] 141 mmol/L Normal 136-145 The [facility] Comment on above: Performed By: #### C MP ####[facility] Gfwvfwbsty64[address] [place], [place] [address]Dr. Lizandro Hemphill Urea nitrogen [Mass/Vol] 13.0 mg/dL Normal 7.0-18.0 The [facility] Comment on above: Performed By: #### C MP ####[facility] Rgqbanywrm25[address] [place], [place] [address]Dr. Shanikaannie Hemphill Urea nitrogen/Creatinin e [Mass ratio] 17.6 mg/mg Normal The [facility] Comment on above: Performed By: #### C MP ####[facility] Bbyjqkxnuu[address] [place], [place] [address]Dr. Lizandro Hemphill PROTIMEon 07-31-2022 INR Coag (PPP) [Relative time] 1.56 {INR} Normal The [facility] Comment on above: Performed By: #### P T, PTT ####[facility] Ipbjpeidni08[address] [place], [place] [address]Dr. Lizandro Hemphill INR GUIDELINES SEE BELOW Normal [facility] Comment on above: Result Comment: GUEVARA RED INR: 2.0 - 3.0 CONDITIONS NOT LISTED BELOW 2.5 - 3.5 FOR PROSTHETIC HEART VALVE REPLACEMENT 2.5 - 3.5 RECURRENT THROMBOSIS Performed By: #### P T, PTT ####[facility] Qcyhukycij[address] [place], [place] [address]Dr. Lizandro Hemphill PT Coag (PPP) [Time] 16.1 s Critically high 9.0-11.6 The [facility] Comment on above: Performed By: #### P T, PTT ####[facility] Vvzquqqyda[address] [place], [place] [address]Dr. Lizandro Hemphill PTTon 07-31-2022 aPTT Coag (Bld) [Time] 30.4 s Normal 22.3-36.2 The [facility] Comment on above: Performed By: #### P T, PTT ####[facility] Gjqdhjzvpe[address] [place], [place] [address]Dr. Lizandro Hemphill CBC AUTO DIFFon 07-30-2022 BASO # 0.1 103/ul Normal 0.0-0.1 The [facility] Comment on above: Performed By: #### C BC ####[facility] Otlnktxoxd[address] [place] [address]Dr. Lizandro Hemphill Basophils/100 WBC (Bld) 1.1 % Normal 0.2-2.0 The [facility] Comment on above: Performed By: #### C BC ####[facility] Kjxhcnkmue6369 [place] [address]Dr. Lizandro Hemphill EO # 0.1 103/ul Normal 0.0-0.7 The [facility] Comment on above: Performed By: #### C BC ####[facility] Yzkqsedkpl[address] [place], [place] [address]Dr. Lizandro Hemphill Eosinophils/100 WBC (Bld) 2.7 % Normal 0.9-7.0 The [facility] Comment on above: Performed By: #### C BC ####[facility] Tfutmgagjw[address] [place], [place] [address]Dr. Lizandro Hemphill Erythrocyte distribution width (RBC) [Ratio] 19.5 % Critically high 11.0-15.0 The [facility] Comment on above: Performed By: #### C BC ####[facility] Nnwhcatyqs[address] [place], [place] [address]Dr. Lizandro Hemphill Hematocrit (Bld) [Volume fraction] 34.5 % Critically low 36.0-48.0 The [facility] Comment on above: Performed By: #### C BC ####[facility] Ydlayzomug[address] [place], [place] [address]Dr. Lizandro Hemphill Hemoglobin (Bld) [Mass/Vol] 10.8 g/dL Critically low 12.0-16.0 The [facility] Comment on above: Performed By: #### C BC ####[facility] Ciwhdrycwn[address] [place], [place] [address]Dr. Lizandro Hemphill IG # 0.02 10e3/ul Normal 0.00-0.03 The [facility] Comment on above: Performed By: #### C BC ####[facility] Yratrywfqi[address] [place], [place] [address]Dr. Lizandro Hemphill IG % 0.4 % Normal 0.0-0.5 The [facility] Comment on above: Performed By: #### C BC ####[facility] [address]ksah[address] [place], [place] [address]Ab. Lizandro Joby LYMPH # 1.0 103/ul Critically low 1.2-3.8 The [facility] Comment on above: Performed By: #### C BC ####[facility] Fl[address]jlpsfer[address] [place], [place] [address]Nv. Lizandro Joby Lymphocytes/100 WBC (Bld) 19.2 % Critically low 20.5-60.0 The [facility] Comment on above: Performed By: #### C BC ####[facility] Vijxeutxcj[address] [place] [id number]. Shanikaannie Hemphill MANUAL DIFF REQ NO Normal [facility] Comment on above: Performed By: #### C BC ####[facility] Qmyodqcltk0500 [place] [phone]. Lizandro Joby MCH (RBC) [Entitic mass] 28.5 pg Normal 26.7-34.0 The [facility] Comment on above: Performed By: #### C BC ####[facility] Wyoztutpgj8974 [place] [phone]. Lizandro Joby MCHC (RBC) [Mass/Vol] 31.3 g/dL Normal 29.9-35.2 The [facility] Comment on above: Performed By: #### C BC ####[facility] Imahmvfxme6790 [place] [phone]. Lizanrdo Hemphill MCV (RBC) [Entitic vol] 91.0 fL Normal 81.0-99.0 The [facility] Comment on above: Performed By: #### C BC ####[facility] Beeyxxhvra3626 [place] [phone]. Lizandro Hemphill MONO # 0.7 103/ul Normal 0.3-0.8 The [facility] Comment on above: Performed By: #### C BC ####[facility] Umsoannfei4344 [place] [id number]. Lizandro Hemphill Monocytes/100 WBC (Bld) 12.5 % Critically high 1.7-12.0 The [facility] Comment on above: Performed By: #### C BC ####[facility] Yascgmgvdm0819 [place] [phone]. Lizandro Hemphill NEUT # 3.4 103/ul Normal 1.4-6.5 The [facility] Comment on above: Performed By: #### C BC ####[facility] Bhikzgtpkd[address] [place], [place] [address]Db. Lizandro Hemphill Neutrophils/100 WBC (Bld) 64.1 % Normal 43.0-75.0 [facility] Comment on above: Performed By: #### C BC ####[facility] Pikvnttqtn37[address] [place] [phone]. Lizandro Hemphill Platelet mean volume (Bld) [Entitic vol] 10.9 fL Normal 9.5-13.5 [facility] Comment on above: Performed By: #### C BC ####[facility] Bqzcpdliyn75[address] [place] [phone]. Lizandro Hemphill PLT 284 103/ul Normal 150-450 The [facility] Comment on above: Performed By: #### C BC ####[facility] Gqmqwrevgx77[address] [place] [phone]. Lizandro Hemphill RBC 3.79 106/ul Critically low 4.20-5.40 [facility] Comment on above: Performed By: #### C BC ####[facility] Mzpvwbtjfu7373 [place] [phone]. Lizandro Hemphill WBC 5.3 103/ul Normal 4.0-11.0 [facility] Comment on above: Performed By: #### C BC ####[facility] Ksgudrfwps5619 [place] [phone]. Lizandro Hemphill LIVER PROFILEon 07-30-2022 Albumin [Mass/Vol] 2.9 g/dL Critically low 3.4-5.0 [facility] Comment on above: Performed By: #### L IVER ####[facility] Ircprzibph0626 [place] [phone]. Lizandro Hemphill Albumin/Globulin [Mass ratio] 0.8 {ratio} Normal [facility] Comment on above: Performed By: #### L IVER ####[facility] Gjtrstlgsk5676 [place] [phone]. Shanikaannie Joby ALP [Catalytic activity/Vol] 164 U/L Critically high 46-116 [facility] Comment on above: Performed By: #### L IVER ####[facility] Gegytvpmdh9372 [place] [phone]. Lizandro Hemphill ALT [Catalytic activity/Vol] 91 U/L Critically high 14-59 [facility] Comment on above: Performed By: #### L IVER ####[facility] Gfnuaskxnc6661 [place] [phone]. Lizandro Hemphill AST [Catalytic activity/Vol] 113 U/L Critically high 15-37 [facility] Comment on above: Performed By: #### L IVER ####[facility] Rojekqgkaf[address] [place] [id number]. Lizandro Hemphill BILI, CONJUGATED 0.1 mg/dL Normal 0.0-0.2 [facility] Comment on above: Performed By: #### L IVER ####[facility] Ajvbrfiien0635 [place] [id number]. Lizandro Hemphill Bilirubin [Mass/Vol] 0.2 mg/dL Normal 0.2-1.0 [facility] Comment on above: Performed By: #### L IVER ####[facility] Otghsevlgm28[address] [place] [id number]. Lizandro Hemphill Globulin (S) [Mass/Vol] 3.7 g/dL Normal [facility] Comment on above: Performed By: #### L IVER ####[facility] Rumopyafxv3205 [place] [id number]. Lizandro Hemphill Protein [Mass/Vol] 6.6 g/dL Normal 6.4-8.2 [facility] Comment on above: Performed By: #### L IVER ####[facility] Zddphowamx49[address] [place] [id number]. Lizandro Hemphill PROF 14(COMP METB)on 023 Albumin [Mass/Vol] 2.8 g/dL Critically low 3.4-5.0 Th [facility] Comment on above: Performed By: #### C MP ####[facility] Utcpqdcrkt[address] [place] [address]Dr. Lizandro Joby Albumin/Globulin [Mass ratio] 0.8 {ratio} Normal [facility] Comment on above: Performed By: #### C MP ####[facility] Lgybtsdnld57[address] [place] [address]Dr. Lizandro Joby ALP [Catalytic activity/Vol] 157 U/L Critically high 46-116 [facility] Comment on above: Performed By: #### C MP ####[facility] Yavcozrvwo[address] [place], [place] [address]Dr. Lizandro Hemphill ALT [Catalytic activity/Vol] 106 U/L Critically high 14-59 [facility] Comment on above: Performed By: #### C MP ####[facility] Oqgjimvfqg[address] [place], [place] [address]Dr. Lizandro Hemphill Anion gap [Moles/Vol] 10.4 mmol/L Normal [facility] Comment on above: Performed By: #### C MP ####[facility] Trxttsuvww23[address] [place], [place] [address]Dr. Lizandro Joby AST [Catalytic activity/Vol] 171 U/L Critically high 15-37 [facility] Comment on above: Performed By: #### C MP ####[facility] Zkjhodgfkt[address] [place], [place] [address]Dr. Lizandro Hemphill Bilirubin [Mass/Vol] 0.3 mg/dL Normal 0.2-1.0 [facility] Comment on above: Performed By: #### C MP ####[facility] Edzvzgvuim55[address] [place], [place] [address]Dr. Lizandro Hemphill Calcium [Mass/Vol] 8.2 mg/dL Critically low 8.5-10.1 Th [facility] Comment on above: Performed By: #### C MP ####[facility] Wqrebbnpxs8890[address] [place], [place] [address]Dr. Lizandro Hemphill Chloride [Moles/Vol] 107 mmol/L Normal 98-107 [facility] Comment on above: Performed By: #### C MP ####[facility] Zwubalmaay01[address] [place] [address]Dr. Lizandro Hemphill CO2 [Moles/Vol] 27.4 mmol/L Normal 21.0-32.0 [facility] Comment on above: Performed By: #### C MP ####[facility] Chcvyhsmhi77[address] [place] [address]Dr. Lizandro Hemphill Creatinine [Mass/Vol] 0.74 mg/dL Normal 0.55-1.02 [facility] Comment on above: Performed By: #### C MP ####[facility] Iiqkzbtrpj77[address] [place], [place] [address]Dr. Lizandro Hemphill EGFR-AF CHADIAN >60 Normal >=60 [facility] Comment on above: Performed By: #### C MP ####[facility] Vvmebxates2454[address] [place], [place] [address]Dr. Lizandro Hemphill EGFR-NON AF CHADIAN >60 Normal >=60 [facility] Comment on above: Performed By: #### C MP ####[facility] Vozwiwijxw4[address] [place], [place] [address]Dr. Lizandro Hemphill Globulin (S) [Mass/Vol] 3.4 g/dL Normal [facility] Comment on above: Performed By: #### C MP ####[facility] Bqeeslnidx2428[address] [place], [place] [address]Dr. Lizandro Hemphill Glucose [Mass/Vol] 123 mg/dL Critically high 74-106 [facility] Comment on above: Performed By: #### C MP ####[facility] Hggdkrmebi220[address] [place], [place] [address]Dr. Lizandro Hemphill Potassium [Moles/Vol] 3.8 mmol/L Normal 3.5-5.1 The [facility] Comment on above: Performed By: #### C MP ####[facility] Chgvlwjhmh5[address] [place], [place] [address]Dr. Lizandro Hemphill Protein [Mass/Vol] 6.2 g/dL Critically low 6.4-8.2 Th [facility] Comment on above: Performed By: #### C MP ####[facility] Qioorbsmdl18[address] [place] [address]Dr. Lizandro Hemphill Sodium [Moles/Vol] 141 mmol/L Normal 136-145 [facility] Comment on above: Performed By: #### C MP ####[facility] Veiudszaao5497 [place] [address]Dr. Lizandro Hemphill Urea nitrogen [Mass/Vol] 14.0 mg/dL Normal 7.0-18.0 [facility] Comment on above: Performed By: #### C MP ####[facility] Kyvbracxqt26[address] [place], [place] [address]Dr. Lizandro Hemphill Urea nitrogen/Creatinin e [Mass ratio] 18.9 mg/mg Normal The [facility] Comment on above: Performed By: #### C MP ####[facility] Bgaubduvdu8376[address] [place], [place] [address]Dr. Lizandro Hemphill PROTIMEon 07-30-2022 INR Coag (PPP) [Relative time] 1.08 {INR} Normal [facility] Comment on above: Performed By: #### P T, PTT ####[facility] Dtvvwltyci[address] [place], [place] [address]Dr. Lizandro Hemphill INR GUIDELINES SEE BELOW Normal The [facility] Comment on above: Result Comment: GUEVARA RED INR: 2.0 - 3.0 CONDITIONS NOT LISTED BELOW 2.5 - 3.5 FOR PROSTHETIC HEART VALVE REPLACEMENT 2.5 - 3.5 RECURRENT THROMBOSIS Performed By: #### P T, PTT ####[facility] Rtbjwqakfc28[address] [place], [place] [address]Dr. Lizandro Hemphill PT Coag (PPP) [Time] 11.4 s Normal 9.0-11.6 The [facility] Comment on above: Performed By: #### P T, PTT ####[facility] Iezoebifql8157[address] [place], [place] [address]Dr. Lizandro Hemphill PTTon 07-30-2022 aPTT Coag (Bld) [Time] 29.3 s Normal 22.3-36.2 The [facility] Comment on above: Performed By: #### P T, PTT ####[facility] Wqzswrmmta[address] [place], [place] [address]Dr. Lizandro Hemphill UA RANDOM W/MICROSCOPICon BACTERIA NONE SEEN Normal NONE SEEN The [facility] Comment on above: Performed By: #### U AMIC ####[facility] Zybfbtqmxk029[address] [place], [place] [address]Dr. Lizandro Hemphill Bilirubin Ql (U) Negative Normal NEGATIVE The [facility] Comment on above: Performed By: #### U AMIC ####[facility] Lebfztappl04[address] [place], [place] [address]Dr. Lizandro Hemphill CAST NONE SEEN Normal NONE SEEN The [facility] Comment on above: Performed By: #### U AMIC ####[facility] Soboawxdfg[address] [place], [place] [address]Dr. Lizandro Hemphill Clarity (U) CLEAR Normal CLEAR The [facility] Comment on above: Performed By: #### U AMIC ####[facility] Uuhvmenjmj527[address] [place], [place] [address]Dr. Lizandro Hemphill Color (U) LT. YELLOW Normal YELLOW The [facility] Comment on above: Performed By: #### U AMIC ####[facility] Hrtfdlssej1630[address] [place], [place] [address]Dr. Lizandro Hemphill Crystals LM Nom (Urine sed) NONE SEEN Normal NONE SEEN The [facility] Comment on above: Performed By: #### U AMIC ####[facility] Gxlcsvobrl68[address] [place] [address]Dr. Lizandro Hemphill Epithelial cells LM Ql (Urine sed) NONE SEEN Normal NONE SEEN /RARE The [facility] Comment on above: Performed By: #### U AMIC ####[facility] Ooqjtacsuq[address] [place] [address]Dr. Lizandro Hemphill Glucose Ql (U) 100 mg/dl Abnormal NEGATIVE The [facility] Comment on above: Performed By: #### U AMIC ####[facility] Rpvofnsega6460[address] [place], [place] [address]Dr. Lizandro Hemphill Hemoglobin Ql (U) Negative Normal NEGATIVE The [facility] Comment on above: Performed By: #### U AMIC ####[facility] Ippbakzouy215[address] [place], [place] [id number]. Lizandro Hemphill Ketones Ql (U) TRACE Abnormal NEGATIVE The [facility] Comment on above: Performed By: #### U AMIC ####[facility] Juzueievhn378[address] [place], [place] [address]Dr. Lizandro Hemphill LEUKOCYTES Negative Normal NEGATIVE The [facility] Comment on above: Performed By: #### U AMIC ####[facility] Kpyygxcxki[address] [place] [address]Dr. Lizandro Hemphill MUCOUS NONE SEEN Normal NONE SEEN The [facility] Comment on above: Performed By: #### U AMIC ####[facility] Zpiekfgrbv1167[address] [place], [place] [address]Dr. Lizandro Hemphill Nitrite Ql (U) Negative Normal NEGATIVE The [facility] Comment on above: Performed By: #### U AMIC ####[facility] Rxsjmknthz2717[address] [place], [place] [address]Dr. Lizandro Joby pH (U) 7.0 [pH] Normal 5-9 The [facility] Comment on above: Performed By: #### U AMIC ####[facility] Viuonumoix0925[address] [place], [place] [address]Dr. Lizandro Hemphill RBC NONE SEEN Abnormal 0-2 The [facility] Comment on above: Performed By: #### U AMIC ####[facility] Ohapbftria01[address] [place], [place] [address]Dr. Lizandro Hemphill SPEC GRAVITY 1.015 Normal 1.005-<=1.025 [facility] Comment on above: Performed By: #### U AMIC ####[facility] Epwxajvnew4980[address] [place], [place] [address]Dr. Lizandro Hemphill UA PROTEIN Negative Normal NEGATIVE/ TRACE The [facility] Comment on above: Performed By: #### U AMIC ####[facility] Euxhpcjdrj65[address] [place], [place] [address]Dr. Lizandro Joby Urobilinogen Qn (U) 0.2 {Cassy'U}/dL Normal 0.2 - 1.0 The [facility] Comment on above: Performed By: #### U AMIC ####[facility] Xzjhjvnkip5[address] [place] [id number]. Lizandro Hemphill WBC NONE SEEN Normal NONE SEEN The [facility] Comment on above: Performed By: #### U AMIC ####[facility] Oqukqwsiyf[address] [place] [id number]. Lizandro Hemphill CBC AUTO DIFFon 07-29-2022 BASO # 0.1 103/ul Normal 0.0-0.1 The [facility] Comment on above: Performed By: #### C BC ####[facility] Sqpmjgzvqg[address] [place], [place] [address]Dr. Lizandro Hemphill Basophils/100 WBC (Bld) 0.8 % Normal 0.2-2.0 The [facility] Comment on above: Performed By: #### C BC ####[facility] Bpaphsrzmx1023 [place] [address]Dr. Lizandro Hemphill EO # 0.0 103/ul Normal 0.0-0.7 The [facility] Comment on above: Performed By: #### C BC ####[facility] Rdnywwnbpt16[address] [place], [place] [address]Dr. Lizandro Hemphill Eosinophils/100 WBC (Bld) 0.5 % Critically low 0.9-7.0 The [facility] Comment on above: Performed By: #### C BC ####[facility] Dhhqgulvlm[address] [place], [place] [address]Dr. Lizandro Hemphill Erythrocyte distribution width (RBC) [Ratio] 19.2 % Critically high 11.0-15.0 The [facility] Comment on above: Performed By: #### C BC ####[facility] Kyjwfbljed506[address] [place], [place] [address]Dr. Lizandro Hemphill Hematocrit (Bld) [Volume fraction] 40.4 % Normal 36.0-48.0 The [facility] Comment on above: Performed By: #### C BC ####[facility] Wlciizygur[address] [place], [place] [address]Dr. Lizandro Hemphill Hemoglobin (Bld) [Mass/Vol] 12.3 g/dL Normal 12.0-16.0 The [facility] Comment on above: Performed By: #### C BC ####[facility] Dvhihtpvmx8101 [place] [id number]. Lizandro Hemphill IG # 0.02 10e3/ul Normal 0.00-0.03 The [facility] Comment on above: Performed By: #### C BC ####[facility] Bnbckzdrqh49[address] [place] [id number]. iLzandro Hemphill IG % 0.2 % Normal 0.0-0.5 The [facility] Comment on above: Performed By: #### C BC ####[facility] Nnpkkvshzv3410 [place] [id number]. Lizandro Hemphill LYMPH # 1.3 103/ul Normal 1.2-3.8 The [facility] Comment on above: Performed By: #### C BC ####[facility] Ltufnbnjqy7498 [place] [address]Dr. Shanikaannie Hemphill Lymphocytes/100 WBC (Bld) 14.9 % Critically low 20.5-60.0 The [facility] Comment on above: Performed By: #### C BC ####[facility] Qilbjrqrgo13[address] [place] [address]Dr. Lizandro Hemphill MANUAL DIFF REQ NO Normal [facility] Comment on above: Performed By: #### C BC ####[facility] Xmjhecsapl5814 [place] [address]Dr. Lizandro Hemphill MCH (RBC) [Entitic mass] 28.1 pg Normal 26.7-34.0 The [facility] Comment on above: Performed By: #### C BC ####[facility] Cvwpxtcjkk9794 [place] [address]Dr. Lizandro Hemphill MCHC (RBC) [Mass/Vol] 30.4 g/dL Normal 29.9-35.2 The [facility] Comment on above: Performed By: #### C BC ####[facility] Faevtjobcd86[address] [place] [address]Dr. Lizandro Hemphill MCV (RBC) [Entitic vol] 92.2 fL Normal 81.0-99.0 The [facility] Comment on above: Performed By: #### C BC ####[facility] Ugwggqyilc9746 [place] [id number]. Lizandro Hemphill MONO # 0.7 103/ul Normal 0.3-0.8 The [facility] Comment on above: Performed By: #### C BC ####[facility] Wrarqwqqnh6860 [place] [id number]. Lizandro Hemphill Monocytes/100 WBC (Bld) 8.2 % Normal 1.7-12.0 The [facility] Comment on above: Performed By: #### C BC ####[facility] Meanyczpdp2609 [place] [id number]. Lizandro Hemphill NEUT # 6.6 103/ul Critically high 1.4-6.5 [facility] Comment on above: Performed By: #### C BC ####[facility] Rribuusbcc6858 [place] [id number]. Lizandro Hemphill Neutrophils/100 WBC (Bld) 75.4 % Critically high 43.0-75.0 The [facility] Comment on above: Performed By: #### C BC ####[facility] Gonlizkoxx3605 [place] [id number]. Lizandro Hemphill Platelet mean volume (Bld) [Entitic vol] 10.4 fL Normal 9.5-13.5 The [facility] Comment on above: Performed By: #### C BC ####[facility] Rkytlirdlk4742 [place] [id number]. Lizandro Hemphill PLT 316 103/ul Normal 150-450 The [facility] Comment on above: Performed By: #### C BC ####[facility] Tsovieofpi0884 [place] [id number]. Lizandro Hemphill RBC 4.38 106/ul Normal 4.20-5.40 The [facility] Comment on above: Performed By: #### C BC ####[facility] Ycudsptrnz9393 [place] [id number]. Lizandro Hemphill WBC 8.8 103/ul Normal 4.0-11.0 The [facility] Comment on above: Performed By: #### C BC ####[facility] Jajvcjcugs[address] [place], [place] [address]Dr. Lizandro Hemphill LACTATE/LACTIC ACIDon 2022 Lactate [Moles/Vol] 1.0 mmol/L Normal 0.4-2.0 [facility] Comment on above: Performed By: #### L ACT ####[facility] Prrjtbyrzn9850 [place] [address]Dr. Lizandro Hemphill PROF 14(COMP METB)on 023 Albumin [Mass/Vol] 3.6 g/dL Normal 3.4-5.0 [facility] Comment on above: Performed By: #### C MP ####[facility] Jhccblqyem4043 [place] [address]Dr. Lizandro Hemphill Albumin/Globulin [Mass ratio] 0.9 {ratio} Normal [facility] Comment on above: Performed By: #### C MP ####[facility] Qvgfuicbrb8578 [place] [address]Dr. Lizandro Hemphill ALP [Catalytic activity/Vol] 132 U/L Critically high 46-116 [facility] Comment on above: Performed By: #### C MP ####[facility] Tgrpvthztt6193 [place] [address]Dr. Lizandro Hemphill ALT [Catalytic activity/Vol] 26 U/L Normal 14-59 [facility] Comment on above: Performed By: #### C MP ####[facility] Qugowhpetz4398 [place] [address]Dr. Lizandro Hemphill Anion gap [Moles/Vol] 17.7 mmol/L Normal [facility] Comment on above: Performed By: #### C MP ####[facility] Mvzyutupfg4493 [place] [address]Dr. Lizandro Hemphill AST [Catalytic activity/Vol] 36 U/L Normal 15-37 [facility] Comment on above: Performed By: #### C MP ####[facility] Mqvqgqycbb9984 [place] [address]Dr. Lizandro Hemphill Bilirubin [Mass/Vol] 0.4 mg/dL Normal 0.2-1.0 [facility] Comment on above: Performed By: #### C MP ####[facility] Qlkmwkictg0379 [place] [id number]. Lizandro Hemphill Calcium [Mass/Vol] 9.2 mg/dL Normal 8.5-10.1 [facility] Comment on above: Performed By: #### C MP ####[facility] Rxpbdchspz0995 [place] [id number]. Lizandro Hemphill Chloride [Moles/Vol] 102 mmol/L Normal 98-107 The [facility] Comment on above: Performed By: #### C MP ####[facility] Ejxdsrsnzj4413 [place] [address]Dr. Lizandro Hemphill CO2 [Moles/Vol] 20.1 mmol/L Critically low 21.0-32.0 The [facility] Comment on above: Performed By: #### C MP ####[facility] Kwpdhhbeee9967 [place] [address]Dr. Lizandro Hemphill Creatinine [Mass/Vol] 1.00 mg/dL Normal 0.55-1.02 The [facility] Comment on above: Performed By: #### C MP ####[facility] Mgtpvyjfns6977 [place] [address]Dr. Lizandro Hemphill EGFR-AF CHADIAN >60 Normal >=60 The [facility] Comment on above: Performed By: #### C MP ####[facility] Nfnwfzdmqd172[address] [place], [place] [address]Dr. Lizandro Hemphill EGFR-NON AF CHADIAN 57 mL/min/1.73m2 Critically low >=60 The [facility] Comment on above: Performed By: #### C MP ####[facility] Yxtcphongn84[address] [place], [place] [address]Dr. Lizandro Hemphill Globulin (S) [Mass/Vol] 4.1 g/dL Normal The [facility] Comment on above: Performed By: #### C MP ####[facility] Vaplhonxyv5315 [place] [address]Dr. Lizandro Hemphill Glucose [Mass/Vol] 79 mg/dL Normal 74-106 [facility] Comment on above: Performed By: #### C MP ####[facility] Ubrmbghkob50[address] [place], [place] [address]Dr. Lizandro Hemphill Potassium [Moles/Vol] 2.6 mmol/L Critically low 3.5-5.1 [facility] Comment on above: Performed By: #### C MP ####[facility] Tlhxvdmnng7[address] [place], [place] [address]Dr. Lizandro Hemphill Protein [Mass/Vol] 7.7 g/dL Normal 6.4-8.2 [facility] Comment on above: Performed By: #### C MP ####[facility] Pizmpitsxg5[address] [place], [place] [address]Dr. Lizandro Hemphill Sodium [Moles/Vol] 126 mmol/L Critically low 136-145 Th [facility] Comment on above: Performed By: #### C MP ####[facility] Sluwtnoskg[address] [place], [place] [address]Dr. Lizandro Hemphill Urea nitrogen [Mass/Vol] 15.0 mg/dL Normal 7.0-18.0 [facility] Comment on above: Performed By: #### C MP ####[facility] Kdsuagwmji229[address] [place], [place] [address]Dr. Lizandro Hemphill Urea nitrogen/Creatinin e [Mass ratio] 15.0 mg/mg Normal [facility] Comment on above: Performed By: #### C MP ####[facility] Qxxehujots54[address] [place], [place] [address]Dr. Lizandro Hemphill PROTIMEon 07-29-2022 INR Coag (PPP) [Relative time] 0.99 {INR} Normal [facility] Comment on above: Performed By: #### P T, PTT ####[facility] Vavzzhkjct[address] [place], [place] [address]Dr. Lizandro Hemphill INR GUIDELINES SEE BELOW Normal [facility] Comment on above: Result Comment: GUEVARA RED INR: 2.0 - 3.0 CONDITIONS NOT LISTED BELOW 2.5 - 3.5 FOR PROSTHETIC HEART VALVE REPLACEMENT 2.5 - 3.5 RECURRENT THROMBOSIS Performed By: #### P T, PTT ####[facility] Ejbthmlfrn375[address] [place], [place] [address]Dr. Lizandro Hemphill PT Coag (PPP) [Time] 10.5 s Normal 9.0-11.6 The [facility] Comment on above: Performed By: #### P T, PTT ####[facility] Rnltamykze2635[address] [place], [place] [address]Dr. Lizandro Hemphill PTTon 07-29-2022 aPTT Coag (Bld) [Time] 29.1 s Normal 22.3-36.2 The [facility] Comment on above: Performed By: #### P T, PTT ####[facility] Uwrhswgpue34[address] [place], [place] [address]Dr. Lizandro Hemphill XR KNEE LT 4V or >on 023 XR KNEE LT 4V or > Normal The [facility] XR PELVIS 1_2 VIEWSon 2022 XR PELVIS 1_2 VIEWS Normal The [facility] CBC AUTO DIFFon 06-28-2022 BASO # 0.0 103/ul Normal 0.0-0.1 The [facility] Comment on above: Performed By: #### C BC ####[facility] Xqgekjtrge7155[address] [place], [place] [address]Dr. Lizandro Hemphill Basophils/100 WBC (Bld) 0.2 % Normal 0.2-2.0 The [facility] Comment on above: Performed By: #### C BC ####[facility] Qepavnjlqg2530[address] [place], [place] [address]Dr. Lizandro Hemphill EO # 0.0 103/ul Normal 0.0-0.7 The [facility] Comment on above: Performed By: #### C BC ####[facility] Xokkrtajoa2584[address] [place], [place] [address]Dr. Lizandro Hemphill Eosinophils/100 WBC (Bld) 0.0 % Critically low 0.9-7.0 The [facility] Comment on above: Performed By: #### C BC ####[facility] Iwgjhgjhhy6877[address] [place], [place] [address]Dr. Lizandro Hemphill Erythrocyte distribution width (RBC) [Ratio] 19.2 % Critically high 11.0-15.0 The [facility] Comment on above: Performed By: #### C BC ####[facility] Rcnwedbabl[address] [place] [address]Dr. Lizandro Hemphill Hematocrit (Bld) [Volume fraction] 34.1 % Critically low 36.0-48.0 [facility] Comment on above: Performed By: #### C BC ####[facility] Auotjumrnh[address] [place] [address]Dr. Lizandro Hemphill Hemoglobin (Bld) [Mass/Vol] 10.7 g/dL Critically low 12.0-16.0 [facility] Comment on above: Performed By: #### C BC ####[facility] Vaqsqmhkrs07[address] [place] [address]Dr. Lizandro Hemphill IG # 0.02 10e3/ul Normal 0.00-0.03 [facility] Comment on above: Performed By: #### C BC ####[facility] Wwvxxhjafv98[address] [place], [place] [address]Dr. Lizandro Hemphill IG % 0.3 % Normal 0.0-0.5 [facility] Comment on above: Performed By: #### C BC ####[facility] Lystkhytzj9832[address] [place], [place] [address]Dr. Lizandro Hemphill LYMPH # 0.4 103/ul Critically low 1.2-3.8 [facility] Comment on above: Performed By: #### C BC ####[facility] Tvxpvmekbc3513[address] [place], [place] [address]Dr. Lizandro Hemphill Lymphocytes/100 WBC (Bld) 6.5 % Critically low 20.5-60.0 [facility] Comment on above: Performed By: #### C BC ####[facility] Mchgbquido5047[address] [place], [place] [address]Dr. Lizandro Hemphill MANUAL DIFF REQ YES Normal [facility] Comment on above: Result Comment: Prev iously reported as: NO On 06/28/2022 05:01 By KD3 Performed By: #### C BC ####[facility] Shbjtcjznp9357[address] [place], [place] [address]Dr. Lizandro Hemphill MCH (RBC) [Entitic mass] 27.2 pg Normal 26.7-34.0 [facility] Comment on above: Performed By: #### C BC ####[facility] Dzcrqydoyr5[address] [place] [id number]. Lizandro Joby MCHC (RBC) [Mass/Vol] 31.4 g/dL Normal 29.9-35.2 The [facility] Comment on above: Performed By: #### C BC ####[facility] Sczfxxvqjk98[address] [place] [id number] Hemphill MCV (RBC) [Entitic vol] 86.8 fL Normal 81.0-99.0 The [facility] Comment on above: Performed By: #### C BC ####[facility] Xwanlqiaae2[address] [place] [address]DrCiro Hemphill MONO # 0.0 103/ul Critically low 0.3-0.8 [facility] Comment on above: Performed By: #### C BC ####[facility] Hwzelargmy5410[address] [place], [place] [address]DrCiro Hemphill Monocytes/100 WBC (Bld) 0.5 % Critically low 1.7-12.0 The [facility] Comment on above: Performed By: #### C BC ####[facility] Xkqpzuhcvh3432[address] [place], [place] [address]Dr. Lizandro Hemphill NEUT # 5.6 103/ul Normal 1.4-6.5 The [facility] Comment on above: Performed By: #### C BC ####[facility] Dgrtakofnv[address] [place], [place] [address]DrCiro Hemphill Neutrophils/100 WBC (Bld) 92.5 % Critically high 43.0-75.0 The [facility] Comment on above: Performed By: #### C BC ####[facility] Jlysejfspa4098[address] [place], [place] [address]DrCiro Hemphill Platelet mean volume (Bld) [Entitic vol] 10.5 fL Normal 9.5-13.5 The [facility] Comment on above: Performed By: #### C BC ####[facility] Wislumacmv774[address] [place], [place] [address]Dr. Lizandro Hemphill PLT 213 103/ul Normal 150-450 The [facility] Comment on above: Performed By: #### C BC ####[facility] Jtxqsjvqqt0359 [place] [address]Dr. Lizandro Hemphill RBC 3.93 106/ul Critically low 4.20-5.40 [facility] Comment on above: Performed By: #### C BC ####[facility] Ktlseqvjfa0677 [place] [address]Dr. Lizandro Hemphill WBC 6.0 103/ul Normal 4.0-11.0 The [facility] Comment on above: Performed By: #### C BC ####[facility] Galpompvhu[address] [place], [place] [address]Dr. Lizandro Hemphill CBC W MANUAL DIFFon 06-29-19 23 ATYPICAL LYMPH # Normal The [facility] Comment on above: Performed By: #### C BCMAN ####[facility] Twsucaonsc7225[address] [place], [place] [address]Dr. Lizandro Hemphill ATYPICAL LYMPH % Normal The [facility] Comment on above: Performed By: #### C BCMAN ####[facility] Wrbtwwffxn[address] [place], [place] [address]Dr. Lizandro Hemphill BAND # 0.0 103/ul Normal 0.0-0.3 The [facility] Comment on above: Performed By: #### C BCMAN ####[facility] Pojsknalom4[address] [place], [place] [address]Dr. Lizandro Hemphill BAND % 0 % Normal 0-5 The [facility] Comment on above: Performed By: #### C BCMAN ####[facility] Yhcgswarwy4[address] [place] [address]Dr. Lizandro Hemphill BASOM # 0.00 103/ul Normal 0.00-0.10 The [facility] Comment on above: Performed By: #### C BCMAN ####[facility] Sffikfpmjh9259[address] [place], [place] [address]Dr. Lizandro Hemphill BASOM % 0.0 % Critically low 0.2-2.0 The [facility] Comment on above: Performed By: #### C BCMAN ####[facility] Mcuzidbnly33[address] [place] [id number]. Lizandro Hemphill BLAST # Normal [facility] Comment on above: Performed By: #### C BCMARÍA ####[facility] Egquhverwg1420 [place] [id number]. Lizandro Hemphill BLAST % Normal The [facility] Comment on above: Performed By: #### C BCMARÍA ####[facility] Twxqpumamz2432 [place] [address]Dr. Lizandro Hemphill CORRECTED WBC Normal 4.0-11.0 [facility] Comment on above: Performed By: #### C BCMARÍA ####[facility] Ymnctjpkam8824 [place] [address]Dr. Lizandro Hemphill EOS # 0.00 103/ul Normal 0.00-0.70 [facility] Comment on above: Performed By: #### C DERRELL ####[facility] Olochpcgmq[address] [place], [place] [address]Dr. Lizandro Hemphill EOS% 0.0 % Critically low 0.9-7.0 [facility] Comment on above: Performed By: #### C BCMARÍA ####[facility] Tmvfbifnss4812[address] [place], [place] [address]Dr. Lizandro Hemphill HCT 34.1 % Critically low 36.0-48.0 [facility] Comment on above: Performed By: #### C BCMARÍA ####[facility] Khwrpkrqfl16[address] [place] [address]Dr. Lizandro Hemphill HGB 10.7 g/dl Critically low 12.0-16.0 [facility] Comment on above: Performed By: #### C BCMARÍA ####[facility] Mavwpmjfqx0454 [place] [address]Dr. Lizandro Hemphill LYMPHM # 0.54 103/ul Critically low 1.20-3.80 [facility] Comment on above: Performed By: #### C BCMAN ####[facility] Vcfvujndmt6213 [place] [id number]. Lizandro Hemphill LYMPHM% 9.0 % Critically low 20.5-60.0 [facility] Comment on above: Performed By: #### C DERRELL ####[facility] Lvbwwygizy4206 [place] [id number]. Lizandro Hemphill MCH 27.2 pg Normal 26.7-34.0 The [facility] Comment on above: Performed By: #### C DERRELL ####[facility] Jgwtrttbas9924 [place] [id number]. Lizandro Hemphill MCHC 31.4 g/dl Normal 29.9-35.2 The [facility] Comment on above: Performed By: #### C DERRELL ####[facility] Dlxroxajyf1188 [place] [id number]. Lizandro Hemphill MCV 86.8 fL Normal 81.0-99.0 The [facility] Comment on above: Performed By: #### C DERRELL ####[facility] Ykyrbmkmux5597 [place] [address]Dr. Lizandro Hemphill METAMYELOCYTE # Normal [facility] Comment on above: Performed By: #### C DERRELL ####[facility] Tffwrljfsl0521 [place] [id number]. Lizandro Hemphill METAMYELOCYTE % Normal [facility] Comment on above: Performed By: #### C DERRELL ####[facility] Osefwsvroe95[address] [place], [place] [address]Dr. Lizandro Hemphill MONOM# 0.12 103/ul Critically low 0.30-0.80 [facility] Comment on above: Performed By: #### C DERRELL ####[facility] Utxehxnxef[address] [place], [place] [address]Dr. Lizandro Hemphill MONOM% 2.0 % Normal 1.7-12.0 The [facility] Comment on above: Performed By: #### C DERRELL ####[facility] Piytdzbeei67[address] [place], [place] [address]Dr. Lizandro Hemphill MPV 10.5 fL Normal 9.5-13.5 The [facility] Comment on above: Performed By: #### C DERRELL ####[facility] Suwhalclma[address] [place], [place] [address]Dr. Lizandro Hemphill MYELOCYTE # Normal The [facility] Comment on above: Performed By: #### C DERRELL ####[facility] Osecclptat9413 [place] [id number]. Lizandro Hemphill MYELOCYTE % Normal The [facility] Comment on above: Performed By: #### C DERRELL ####[facility] Mgqtctgktl2189 [place], [place] [address]Ep. Lizandro Hemphill NRBC Normal The [facility] Comment on above: Performed By: #### C DERRELL ####[facility] Zhayaxxkfc4724 [place] [phone]. Lizandro Hemphill PLT 213 103/ul Normal 150-450 The [facility] Comment on above: Performed By: #### C DERRELL ####[facility] Ixtdfdyyfp8427 [place] [phone]. Lizandro Hemphill RBC 3.93 106/ul Critically low 4.20-5.40 [facility] Comment on above: Performed By: #### C DERRELL ####[facility] Dbhxfhajku7481 [place] [phone]. Lizandro Hemphill RDW 19.2 % Critically high 11.0-15.0 [facility] Comment on above: Performed By: #### C DERRELL ####[facility] Vbfrvxjtxc7352 [place] [phone]. Lizandro Hemphill SEG # 5.34 103/ul Normal 1.40-6.50 The [facility] Comment on above: Performed By: #### C DERRELL ####[facility] Kybkdxopat8499 [place] [id number]. Lizandro Hemphill SEG % 89.0 % Critically high 43.0-75.0 [facility] Comment on above: Performed By: #### C DERRELL ####[facility] Iisehgrava8432 [place] [phone]. Lizandro Hemphill WBC 6.0 103/ul Normal 4.0-11.0 The [facility] Comment on above: Performed By: #### C DERRELL ####[facility] Jsuazjmyic7996 [place] [phone]. Lizandro Hemphill CRPon 06-28-2022 CRP 0.1 mg/dL Normal <=1.0 [facility] Comment on above: Performed By: #### C RP, CMP ####[facility] Dttsixawmo[address] [place], [place] [address]Dr. Lizandro Hemphill PROF 14(COMP METB)on 023 Albumin [Mass/Vol] 2.8 g/dL Critically low 3.4-5.0 Th e [facility] Comment on above: Performed By: #### C RP, CMP ####[facility] Saoqhihiik[address] [place] [address]Dr. Lizandro Hemphill Albumin/Globulin [Mass ratio] 0.8 {ratio} Normal [facility] Comment on above: Performed By: #### C RP, CMP ####[facility] Ihcyhqcmfg55[address] [place], [place] [address]Dr. Lizandro Hemphill ALP [Catalytic activity/Vol] 129 U/L Critically high 46-116 [facility] Comment on above: Performed By: #### C RP, CMP ####[facility] Khuyjegdok9[address] [place] [address]Dr. Lizandro Hemphill ALT [Catalytic activity/Vol] 47 U/L Normal 14-59 [facility] Comment on above: Performed By: #### C RP, CMP ####[facility] Wcfiqurtoh6566[address] [place], [place] [address]Dr. Lizandro Hemphill Anion gap [Moles/Vol] 11.7 mmol/L Normal [facility] Comment on above: Performed By: #### C RP, CMP ####[facility] Uspcfzirvj12[address] [place], [place] [address]Dr. Lizandro Hemphill AST [Catalytic activity/Vol] 13 U/L Critically low 15-37 [facility] Comment on above: Performed By: #### C RP, CMP ####[facility] Fvyefjuobx6725[address] [place], [place] [address]Dr. Lizandro Hemphill Bilirubin [Mass/Vol] 0.1 mg/dL Critically low 0.2-1.0 [facility] Comment on above: Performed By: #### C RP, CMP ####[facility] Cihwkgcunh1171 [place] [phone]. Lizandro Hemphill Calcium [Mass/Vol] 8.3 mg/dL Critically low 8.5-10.1 Th [facility] Comment on above: Performed By: #### C RP, CMP ####[facility] Ybiusdszby9189 [place] [phone]. Lizandro Hemphill Chloride [Moles/Vol] 106 mmol/L Normal 98-107 The [facility] Comment on above: Performed By: #### C RP, CMP ####[facility] Hrbyraxhbw4258 [place] [address]Dr. Lizandro Hemphill CO2 [Moles/Vol] 26.0 mmol/L Normal 21.0-32.0 [facility] Comment on above: Performed By: #### C RP, CMP ####[facility] Xtunradcvu24[address] [place], [place] [address]Dr. Lizandro Hemphill Creatinine [Mass/Vol] 0.80 mg/dL Normal 0.55-1.02 [facility] Comment on above: Performed By: #### C RP, CMP ####[facility] Zdtwcpmoma3907[address] [place], [place] [address]Dr. Lizandro Hemphill EGFR-AF CHADIAN >60 Normal >=60 [facility] Comment on above: Performed By: #### C RP, CMP ####[facility] Jgmvdrqxvy9[address] [place], [place] [address]Dr. Lizandro Hemphill EGFR-NON AF CHADIAN >60 Normal >=60 [facility] Comment on above: Performed By: #### C RP, CMP ####[facility] Kifhafcnji[address] [place], [place] [address]Dr. Lizandro Hemphill Globulin (S) [Mass/Vol] 3.4 g/dL Normal [facility] Comment on above: Performed By: #### C RP, CMP ####[facility] Eylarygztw1861 [place] [address]Dr. Lizandro Hemphill Glucose [Mass/Vol] 164 mg/dL Critically high 74-106 [facility] Comment on above: Performed By: #### C RP, CMP ####[facility] Dqqwqrdxpk3449 [place] [address]Dr. Lizandro Hemphill Potassium [Moles/Vol] 3.5 mmol/L Normal 3.5-5.1 [facility] Comment on above: Performed By: #### C RP, CMP ####[facility] Wluyvkbygj2505 [place] [address]Dr. Lizandro Hemphill Protein [Mass/Vol] 6.2 g/dL Critically low 6.4-8.2 Th [facility] Comment on above: Performed By: #### C RP, CMP ####[facility] Fmjrliwebg4286 [place] [address]Dr. Lizandro Hemphill Sodium [Moles/Vol] 140 mmol/L Normal 136-145 [facility] Comment on above: Performed By: #### C RP, CMP ####[facility] Xyhfjokcov400[address] [place], [place] [address]Dr. Lizandro Hemphill Urea nitrogen [Mass/Vol] 13.0 mg/dL Normal 7.0-18.0 [facility] Comment on above: Performed By: #### C RP, CMP ####[facility] Ighycdkrcu5648[address] [place], [place] [address]Dr. Lizandro Hemphill Urea nitrogen/Creatinin e [Mass ratio] 16.2 mg/mg Normal [facility] Comment on above: Performed By: #### C RP, CMP ####[facility] Lbbjgzfkle[address] [place], [place] [address]Dr. Lizandro Hemphill PROTIMEon 06-28-2022 INR Coag (PPP) [Relative time] 1.39 {INR} Normal [facility] Comment on above: Performed By: #### P T ####[facility] Pfroavgxvt002[address] [place], [place] [address]Dr. Lizandro Hemphill INR GUIDELINES SEE BELOW Normal [facility] Comment on above: Result Comment: GUEVARA RED INR: 2.0 - 3.0 CONDITIONS NOT LISTED BELOW 2.5 - 3.5 FOR PROSTHETIC HEART VALVE REPLACEMENT 2.5 - 3.5 RECURRENT THROMBOSIS Performed By: #### P T ####[facility] Megaqhrxcr56[address] [place], [place] [address]Dr. Lizandro Hemphill PT Coag (PPP) [Time] 14.5 s Critically high 9.0-11.6 The [facility] Comment on above: Performed By: #### P T ####[facility] Kgaqjygdlb2[address] [place], [place] [address]Dr. Lizandro Hemphill CBC AUTO DIFFon 06-27-2022 BASO # 0.1 103/ul Normal 0.0-0.1 The [facility] Comment on above: Performed By: #### C BC ####[facility] Npkohkqzam026[address] [place], [place] [address]Dr. Lizandro Hemphill Basophils/100 WBC (Bld) 1.1 % Normal 0.2-2.0 The [facility] Comment on above: Performed By: #### C BC ####[facility] Dhzkuqbeyr[address] [place], [place] [address]Dr. Lizandro Hemphill EO # 0.1 103/ul Normal 0.0-0.7 The [facility] Comment on above: Performed By: #### C BC ####[facility] Qibddsaaid4218[address] [place], [place] [address]Dr. Lizandro Hemphill Eosinophils/100 WBC (Bld) 1.3 % Normal 0.9-7.0 The [facility] Comment on above: Performed By: #### C BC ####[facility] Rzanimrcfy85[address] [place], [place] [address]Dr. Lizandro Hemphill Erythrocyte distribution width (RBC) [Ratio] 19.8 % Critically high 11.0-15.0 The [facility] Comment on above: Performed By: #### C BC ####[facility] Tldcicvuke[address] [place], [place] [address]Dr. Lizandro Hemphill Hematocrit (Bld) [Volume fraction] 34.4 % Critically low 36.0-48.0 [facility] Comment on above: Performed By: #### C BC ####[facility] Qjpvbpazre[address] [place], [place] [address]Dr. Lizandro Hemphill Hemoglobin (Bld) [Mass/Vol] 11.1 g/dL Critically low 12.0-16.0 [facility] Comment on above: Performed By: #### C BC ####[facility] [address]dkwoyfdjf49[address] [place] [id number]. Lizandro Hemphill IG # 0.01 10e3/ul Normal 0.00-0.03 [facility] Comment on above: Performed By: #### C BC ####[facility] Ynvajrzqju6793 [place] [id number]. Lizandro Hemphill IG % 0.2 % Normal 0.0-0.5 [facility] Comment on above: Performed By: #### C BC ####[facility] Ilbbsfcidx[address] [place] [address]Dr. Lizandro Hemphill LYMPH # 1.3 103/ul Normal 1.2-3.8 [facility] Comment on above: Performed By: #### C BC ####[facility] Ubnviabeeg6098 [place] [address]Dr. Shanikaannie Hemphill Lymphocytes/100 WBC (Bld) 24.6 % Normal 20.5-60.0 [facility] Comment on above: Performed By: #### C BC ####[facility] Slxjwwzwsz5[address] [place] [address]Dr. Lizandro Hemphill MANUAL DIFF REQ NO Normal [facility] Comment on above: Performed By: #### C BC ####[facility] Ybmbcbqqov2168 [place] [id number]. Lizandro Hemphill MCH (RBC) [Entitic mass] 27.4 pg Normal 26.7-34.0 [facility] Comment on above: Performed By: #### C BC ####[facility] Oroqkdueit[address] [place], [place] [id number]. Lizandro Hemphill MCHC (RBC) [Mass/Vol] 32.3 g/dL Normal 29.9-35.2 [facility] Comment on above: Performed By: #### C BC ####[facility] Habjdlzpti0636 [place] [id number]. Lizandro Hemphill MCV (RBC) [Entitic vol] 84.9 fL Normal 81.0-99.0 The [facility] Comment on above: Performed By: #### C BC ####[facility] Dpbrfyepvs9387 [place] [id number]. Lizandro Hemphill MONO # 0.8 103/ul Normal 0.3-0.8 [facility] Comment on above: Performed By: #### C BC ####[facility] Bbasiqfbkh7297 [place] [id number]. Lizandro Hemphill Monocytes/100 WBC (Bld) 13.9 % Critically high 1.7-12.0 The [facility] Comment on above: Performed By: #### C BC ####[facility] Raxuxrweol3929 [place] [id number]. Lizandro Hemphill NEUT # 3.2 103/ul Normal 1.4-6.5 The [facility] Comment on above: Performed By: #### C BC ####[facility] Jwvjfxcvie[address] [place], [place] [address]Dr. Lizandro Hemphill Neutrophils/100 WBC (Bld) 58.9 % Normal 43.0-75.0 The [facility] Comment on above: Performed By: #### C BC ####[facility] Yjooezknvg7272 [place] [id number]. Lizandro Hemphill Platelet mean volume (Bld) [Entitic vol] 10.6 fL Normal 9.5-13.5 [facility] Comment on above: Performed By: #### C BC ####[facility] Mbnrskkulx3583 [place] [id number]. Lizandro Hemphill PLT 228 103/ul Normal 150-450 [facility] Comment on above: Performed By: #### C BC ####[facility] Mzjvhfmhgm[address] [place], [place] [address]Dr. Lizandro Hemphill RBC 4.05 106/ul Critically low 4.20-5.40 [facility] Comment on above: Performed By: #### C BC ####[facility] Mkopplxpte3536 [place] [id number]. Lizandro Hemphill WBC 5.4 103/ul Normal 4.0-11.0 The [facility] Comment on above: Performed By: #### C BC ####[facility] Hempxzfekg5084 [place] [address]Dr. Lizandro Hemphill CRPon 06-27-2022 CRP [Mass/Vol] mg/L Normal <=1.0 [facility] Comment on above: Performed By: #### C RP, CMP ####[facility] Ycjhaqxxkr3580 [place] [address]Dr. Lizandro Hemphill PROF 14(COMP METB)on 023 Albumin [Mass/Vol] 2.9 g/dL Critically low 3.4-5.0 Th [facility] Comment on above: Performed By: #### C RP, CMP ####[facility] Dibbilacnh8729 [place] [address]Dr. Lizandro Hemphill Albumin/Globulin [Mass ratio] 0.9 {ratio} Normal [facility] Comment on above: Performed By: #### C RP, CMP ####[facility] Tenzohupnk[address] [place], [place] [address]Dr. Lizandro Hemphill ALP [Catalytic activity/Vol] 144 U/L Critically high 46-116 [facility] Comment on above: Performed By: #### C RP, CMP ####[facility] Dmyhpiwzqy6249 [place] [address]Dr. Lizandro Hemphill ALT [Catalytic activity/Vol] 52 U/L Normal 14-59 [facility] Comment on above: Performed By: #### C RP, CMP ####[facility] Wwyotstlaw5450 [place] [address]Dr. Lizandro Hemphill Anion gap [Moles/Vol] 11.5 mmol/L Normal [facility] Comment on above: Performed By: #### C RP, CMP ####[facility] Ezeytpjwqb6300 [place] [address]Dr. Lizandro Hemphill AST [Catalytic activity/Vol] 26 U/L Normal 15-37 [facility] Comment on above: Performed By: #### C RP, CMP ####[facility] Gpfzfnoddp[address] [place], [place] [address]Dr. Lizandro Hemphill Bilirubin [Mass/Vol] 0.3 mg/dL Normal 0.2-1.0 [facility] Comment on above: Performed By: #### C RP, CMP ####[facility] Xjygmnimxq8516 [place] [address]Dr. Lizandro Hemphill Calcium [Mass/Vol] 8.4 mg/dL Critically low 8.5-10.1 Th e [facility] Comment on above: Performed By: #### C RP, CMP ####[facility] Qrmhunozzv5488 [place] [address]Dr. Lizandro Hemphill Chloride [Moles/Vol] 106 mmol/L Normal 98-107 [facility] Comment on above: Performed By: #### C RP, CMP ####[facility] Rlhmmjzmer99[address] [place], [place] [address]Dr. Lizandro Hemphill CO2 [Moles/Vol] 28.2 mmol/L Normal 21.0-32.0 The [facility] Comment on above: Performed By: #### C RP, CMP ####[facility] Jbgaeshyfa[address] [place], [place] [address]Dr. Lizandro Hemphill Creatinine [Mass/Vol] 0.72 mg/dL Normal 0.55-1.02 [facility] Comment on above: Performed By: #### C RP, CMP ####[facility] Cpkbbzcxvj7[address] [place], [place] [address]Dr. Lizandro Hemphill EGFR-AF CHADIAN >60 Normal >=60 [facility] Comment on above: Performed By: #### C RP, CMP ####[facility] Vvjnperzph3174 [place] [address]Dr. Lizandro Hemphill EGFR-NON AF CHADIAN >60 Normal >=60 [facility] Comment on above: Performed By: #### C RP, CMP ####[facility] Zqvsyzwkzd[address] [place], [place] [address]Dr. Lizandro Hemphill Globulin (S) [Mass/Vol] 3.3 g/dL Normal [facility] Comment on above: Performed By: #### C RP, CMP ####[facility] Alsbvgnzbx2687 [place] [address]Dr. Lizandro Hemphill Glucose [Mass/Vol] 89 mg/dL Normal 74-106 [facility] Comment on above: Performed By: #### C RP, CMP ####[facility] Isbwxrbhwd27[address] [place], [place] [address]Dr. Lizandro Hemphill Potassium [Moles/Vol] 3.7 mmol/L Normal 3.5-5.1 [facility] Comment on above: Performed By: #### C RP, CMP ####[facility] Jfkiixxpgl18[address] [place], [place] [address]Dr. Lizandro Hemphill Protein [Mass/Vol] 6.2 g/dL Critically low 6.4-8.2 Th [facility] Comment on above: Performed By: #### C RP, CMP ####[facility] Yrddjdswxc524[address] [place], [place] [address]Dr. Lizandro Hemphill Sodium [Moles/Vol] 142 mmol/L Normal 136-145 [facility] Comment on above: Performed By: #### C RP, CMP ####[facility] Mymwtxsuek[address] [place], [place] [address]Dr. Lizandro Hemphill Urea nitrogen [Mass/Vol] 13.0 mg/dL Normal 7.0-18.0 [facility] Comment on above: Performed By: #### C RP, CMP ####[facility] Bnhrucjggj[address] [place], [place] [address]Dr. Lizandro Hemphill Urea nitrogen/Creatinin e [Mass ratio] 18.1 mg/mg Normal [facility] Comment on above: Performed By: #### C RP, CMP ####[facility] Zuesyhazmm16[address] [place], [place] [address]Dr. Lizandro Hemphill PROTIMEon 06-27-2022 INR Coag (PPP) [Relative time] 1.20 {INR} Normal [facility] Comment on above: Performed By: #### P T ####[facility] Qrnzbnhcok02[address] [place], [place] [address]Dr. Lizandro Hemphill INR GUIDELINES SEE BELOW Normal [facility] Comment on above: Result Comment: GUEVARA RED INR: 2.0 - 3.0 CONDITIONS NOT LISTED BELOW 2.5 - 3.5 FOR PROSTHETIC HEART VALVE REPLACEMENT 2.5 - 3.5 RECURRENT THROMBOSIS Performed By: #### P T ####[facility] Wtssinvpbg5825 [place] [address]Dr. Lizandro Hemphill PT Coag (PPP) [Time] 12.6 s Critically high 9.0-11.6 The [facility] Comment on above: Performed By: #### P T ####[facility] Aovojoubjy[address] [place], [place] [address]Dr. Lizandro Hemphill AMYLASEon 06-26-2022 Amylase [Catalytic activity/Vol] 73 U/L Normal 25-115 [facility] Comment on above: Performed By: #### C MP, ALICIA, LIPA ####[facility] Voiqzwogsq82[address] [place], [place] [address]Dr. Lizandro Hemphill CBC AUTO DIFFon 06-26-2022 BASO # 0.1 103/ul Normal 0.0-0.1 [facility] Comment on above: Performed By: #### C BC ####[facility] Llffixlgux686[address] [place], [place] [address]Dr. Lizandro Hemphill Basophils/100 WBC (Bld) 0.9 % Normal 0.2-2.0 [facility] Comment on above: Performed By: #### C BC ####[facility] Svczaoopws72[address] [place], [place] [address]Dr. Lizandro Hemphill EO # 0.0 103/ul Normal 0.0-0.7 [facility] Comment on above: Performed By: #### C BC ####[facility] Qmsxzkorze37[address] [place], [place] [address]Dr. Lizandro Hemphill Eosinophils/100 WBC (Bld) 0.1 % Critically low 0.9-7.0 [facility] Comment on above: Performed By: #### C BC ####[facility] Xatufrocit[address] [place], [place] [address]Dr. Lizandro Hemphill Erythrocyte distribution width (RBC) [Ratio] 19.8 % Critically high 11.0-15.0 [facility] Comment on above: Performed By: #### C BC ####[facility] Qqhxdfcvrk363[address] [place], [place] [address]Dr. Lizandro Hemphill Hematocrit (Bld) [Volume fraction] 39.1 % Normal 36.0-48.0 [facility] Comment on above: Performed By: #### C BC ####[facility] Zkbareennj3653 [place] [address]DrCiro Hemphill Hemoglobin (Bld) [Mass/Vol] 12.6 g/dL Normal 12.0-16.0 [facility] Comment on above: Performed By: #### C BC ####[facility] Bmvaycihse8188 [place] [address]DrCiro Hemphill IG # 0.04 10e3/ul Critically high 0.00-0.03 [facility] Comment on above: Performed By: #### C BC ####[facility] Gyugyrjqsx0659 [place] [address]DrCiro Hemphill IG % 0.5 % Normal 0.0-0.5 [facility] Comment on above: Performed By: #### C BC ####[facility] Zqvzmnjatk[address] [place], [place] [address]DrCiro Hemphill LYMPH # 1.0 103/ul Critically low 1.2-3.8 [facility] Comment on above: Performed By: #### C BC ####[facility] Nkrwyjkphc6137 [place] [address]DrCiro Hemphill Lymphocytes/100 WBC (Bld) 12.9 % Critically low 20.5-60.0 [facility] Comment on above: Performed By: #### C BC ####[facility] Ffqyyppduq3728 [place] [address]DrCiro Hemphill MANUAL DIFF REQ NO Normal [facility] Comment on above: Performed By: #### C BC ####[facility] Scmrowxjqu0107 [place] [address]DrCiro Hemphill MCH (RBC) [Entitic mass] 27.2 pg Normal 26.7-34.0 [facility] Comment on above: Performed By: #### C BC ####[facility] Uhruzdviym3317 [place] [address]DrCiro Hemphill MCHC (RBC) [Mass/Vol] 32.2 g/dL Normal 29.9-35.2 [facility] Comment on above: Performed By: #### C BC ####[facility] Umoaabgylg6069 [place] [address]DrCiro Hemphill MCV (RBC) [Entitic vol] 84.3 fL Normal 81.0-99.0 [facility] Comment on above: Performed By: #### C BC ####[facility] Bvaejszcpb6745 [place] [address]DrCiro Hemphill MONO # 0.8 103/ul Normal 0.3-0.8 [facility] Comment on above: Performed By: #### C BC ####[facility] Hhcnufsypd6843 [place] [address]DrCiro Hemphill Monocytes/100 WBC (Bld) 10.2 % Normal 1.7-12.0 [facility] Comment on above: Performed By: #### C BC ####[facility] Fmhyxypdho[address] [place], [place] [address]DrCiro Hemphill NEUT # 5.9 103/ul Normal 1.4-6.5 [facility] Comment on above: Performed By: #### C BC ####[facility] Hrbccxbjpc[address] [place], [place] [address]DrCiro Hemphill Neutrophils/100 WBC (Bld) 75.4 % Critically high 43.0-75.0 [facility] Comment on above: Performed By: #### C BC ####[facility] Uoiilnhqvg418[address] [place], [place] [address]DrCiro Hemphill Platelet mean volume (Bld) [Entitic vol] 10.2 fL Normal 9.5-13.5 [facility] Comment on above: Performed By: #### C BC ####[facility] Tizixufaho[address] [place], [place] [address]DrCiro Hemphill PLT 253 103/ul Normal 150-450 [facility] Comment on above: Performed By: #### C BC ####[facility] Cppvmrahir[address] [place], [place] [address]DrCiro Hemphill RBC 4.64 106/ul Normal 4.20-5.40 [facility] Comment on above: Performed By: #### C BC ####[facility] Fjkfrreopm83[address] [place], [place] [address]Jc. Lizandro Hemphill WBC 7.8 103/ul Normal 4.0-11.0 [facility] Comment on above: Performed By: #### C BC ####[facility] Aemrxkgrit[address] [place], [place] [address]Qo. Liz[address] Hem[address] CT ABD/PELVIS WO CONon 06-26 CT ABD/PELVIS WO CON Normal [facility] Covid-19 PCR (CVDTBH)on SARS-CoV-2 (COVID-19) RNA VERITO+probe Ql (Unsp spec) Not detected Normal NOT DETECTED [facility] Comment on above: Result Comment: When diagnostic testing is negative, the possibility of a false negative should be considered inthe context of a patient's recent exposures and the presence of clinical signs and symptomsconsistent with SARS-CoV-2.This test is not yet approved or cleared by the [place] FDA. When there are no FDA-approved or cleared tests available, and other criteria are met, FDA can make tests available under an emergency access mechanism called an Emergency Use Authorization (EUA). The EUA for this test is supported by the Street Vendor of Health and Human Service's declaration that circumstances exist to justify the emergency use of in vitro diagnostics for the detection and/or diagnosis of the virus that causes COVID-19. This EUA will remain in effect for the duration of the COVID-19 declaration justifying emergency of IVDs, unless it is terminated or revoked by the FDA (after which the test may no longer be used). Performed By: #### C VDTBH ####[facility] Fgdnstdkxe4[address] [place], [place] [address]Uq. Lizandro Hemphill ER URINE PROFILEon 3 Bilirubin Ql (U) Negative Normal NEGATIVE The [facility] Comment on above: Performed By: #### E RUR ####[facility] Qwlffwxdjg8608 [place], [place] [address]Ht. Lizandro Hemphill Clarity (U) CLEAR Normal CLEAR [facility] Comment on above: Performed By: #### E RUR ####[facility] Xhlyfwfaww[address] [place], [place] [address]Dr. Shanikaannie Hemphill Color (U) LT. YELLOW Normal YELLOW [facility] Comment on above: Performed By: #### E RUR ####[facility] Kxzlvdpbpc84[address] [place], [place] [address]Dr. Lizandro Hemphill ERUAHD A micrscopic examina tion will be performed if indicated. Normal [facility] Comment on above: Performed By: #### E RUR ####[facility] Jxdzjvnbbs360[address] [place], [place] [address]Dr. Shanikaannie Joby Glucose Ql (U) Negative Normal NEGATIVE [facility] Comment on above: Performed By: #### E RUR ####[facility] Vusrbcicqf2510[address] [place], [place] [address]Dr. Lizandro Hemphill Hemoglobin Ql (U) Negative Normal NEGATIVE [facility] Comment on above: Performed By: #### E RUR ####[facility] Puqgzqthnu911[address] [place], [place] [address]Dr. Lizandro Hemphill Ketones Ql (U) Negative Normal NEGATIVE [facility] Comment on above: Performed By: #### E RUR ####[facility] Zkxsfvzehh027[address] [place], [place] [address]Dr. Lizandro Hemphill LEUKOCYTES Negative Normal NEGATIVE [facility] Comment on above: Performed By: #### E RUR ####[facility] Ihiesvqgap919[address] [place], [place] [address]Dr. Lizandro Hemphill Nitrite Ql (U) Negative Normal NEGATIVE [facility] Comment on above: Performed By: #### E RUR ####[facility] Psmggkwzbs8638[address] [place], [place] [address]Dr. Lizandro Hemphill pH (U) 7.5 [pH] Normal 5-9 [facility] Comment on above: Performed By: #### E RUR ####[facility] Gykeyickhb5226[address] [place], [place] [address]Dr. Lizandro Hemphill SPEC GRAVITY 1.010 Normal 1.005-<=1.025 [facility] Comment on above: Performed By: #### E RUR ####[facility] Avrdnmhfyn4217 [place] [address]Dr. Lizandro Hemphill UA PROTEIN Negative Normal NEGATIVE/ TRACE [facility] Comment on above: Performed By: #### E RUR ####[facility] Dbpcabzaif3804 [place] [address]Dr. Lizandro Hemphill UR MICRO IND NOT INDICATED Normal [facility] Comment on above: Performed By: #### E RUR ####[facility] Csihxodohx2169 [place] [address]Dr. Lizandro Hemphill Urobilinogen Qn (U) 0.2 {Cassy'U}/dL Normal 0.2 - 1.0 [facility] Comment on above: Performed By: #### E RUR ####[facility] Fwcobrocxz5[address] [place], [place] [address]Dr. Liznadro Hemphill LACTATE/LACTIC ACIDon 2022 Lactate [Moles/Vol] 1.3 mmol/L Normal 0.4-2.0 [facility] Comment on above: Performed By: #### L ACT ####[facility] Pvdhvfgxom[address] [place], [place] [address]Dr. Lizandro Hemphill LIPASEon 06-26-2022 Lipase [Catalytic activity/Vol] 161.0 U/L Normal 73.0-393.0 [facility] Comment on above: Performed By: #### C MARGARITA ALICIA, LIPA ####[facility] Rxuylikgeo458[address] [place], [place] [address]Dr. Lizandro Hemphill PROF 14(COMP METB)on 023 Albumin [Mass/Vol] 3.9 g/dL Normal 3.4-5.0 [facility] Comment on above: Performed By: #### C MP ALICIA, LIPA ####[facility] Rccvptrmfn[address] [place], [place] [address]Dr. Lizandro Hemphill Albumin/Globulin [Mass ratio] 1.0 {ratio} Normal [facility] Comment on above: Performed By: #### C MP ALICIA, LIPA ####[facility] Txkcgkxqjd1765 [place] [address]Dr. Lizandro Hemphill ALP [Catalytic activity/Vol] 177 U/L Critically high 46-116 [facility] Comment on above: Performed By: #### C ALICIA AVILA, LIPA ####[facility] Uxfjzmqgng3231 [place] [address]Dr. Lizandro Hemphill ALT [Catalytic activity/Vol] 83 U/L Critically high 14-59 [facility] [facility] Comment on above: Performed By: #### C MARGARITA ALICIA, LIPA ####[facility] Riijwbwndd[address] [place], [place] [address]Dr. Lizandro Hmephill Anion gap [Moles/Vol] 10.7 mmol/L Normal [facility] Comment on above: Performed By: #### C MARGARITA ALICIA, LIPA ####[facility] Sbyqbxkmxp18[address] [place], [place] [address]Dr. Lizandro Hemphill AST [Catalytic activity/Vol] 53 U/L Critically high 15-37 [facility] Comment on above: Performed By: #### C MARGARITA ALICIA, LIPA ####[facility] Zzrpdqiynf37[address] [place], [place] [address]Dr. Lizandro Hemphill Bilirubin [Mass/Vol] 0.4 mg/dL Normal 0.2-1.0 [facility] Comment on above: Performed By: #### C MARGARITA ALICIA, LIPA ####[facility] Myzeucgthz7[address] [place], [place] [address]Dr. Lizandro Hemphill Calcium [Mass/Vol] 11.2 mg/dL Critically high 8.5-10.1 [facility] Comment on above: Performed By: #### C MARGARITA ALICIA, LIPA ####[facility] Optfuivbbs[address] [place] [address]Dr. Lizandro Hemphill Chloride [Moles/Vol] 101 mmol/L Normal 98-107 [facility] Comment on above: Performed By: #### C MP, ALICIA, LIPA ####[facility] Xfssihxyqi[address] [place] [address]Dr. Lizandro Hemphill CO2 [Moles/Vol] 29.5 mmol/L Normal 21.0-32.0 The [facility] Comment on above: Performed By: #### C MP, ALICIA, LIPA ####[facility] Kxjgpkxezq05[address] [place] [address]Dr. Lizandro Hemphill Creatinine [Mass/Vol] 0.79 mg/dL Normal 0.55-1.02 [facility] Comment on above: Performed By: #### C MP, ALICIA, LIPA ####[facility] Xnwkrddybq80[address] [place] [address]Dr. Lizandro Hemphill EGFR-AF CHADIAN >60 Normal >=60 The [facility] Comment on above: Performed By: #### C MP, ALICIA, LIPA ####[facility] Xnitmdrnqd[address] [place], [place] [address]Dr. Lizandro Hemphill EGFR-NON AF CHADIAN >60 Normal >=60 [facility] Comment on above: Performed By: #### C MP, ALICIA, LIPA ####[facility] Sryorqgkui3812[address] [place], [place] [address]Dr. Lizandro Hemphill Globulin (S) [Mass/Vol] 4.0 g/dL Normal [facility] Comment on above: Performed By: #### C MP, ALICIA, LIPA ####[facility] Daqmaahfda08[address] [place], [place] [address]Dr. Lizandro Hemphill Glucose [Mass/Vol] 96 mg/dL Normal 74-106 [facility] Comment on above: Performed By: #### C MP, LAICIA, LIPA ####[facility] Nrrblsiyxo05[address] [place], [place] [address]Dr. Lizandro Hemphill Potassium [Moles/Vol] 4.2 mmol/L Normal 3.5-5.1 [facility] Comment on above: Performed By: #### C MP, ALICIA, LIPA ####[facility] Gqeqndbafv5365[address] [place], [place] [address]Dr. Lizandro Hemphill Protein [Mass/Vol] 7.9 g/dL Normal 6.4-8.2 [facility] Comment on above: Performed By: #### C MP, ALICIA, LIPA ####[facility] Ilvvhvooph6426[address] [place], [place] [address]Dr. Lizandro Hemphill Sodium [Moles/Vol] 137 mmol/L Normal 136-145 [facility] Comment on above: Performed By: #### C ALICIA AVILA LIPA ####[facility] Wwqhjgjawr[address] [place] [address]Dr. Lizandro Hemphill Urea nitrogen [Mass/Vol] 27.0 mg/dL Critically high 7.0-18.0 [facility] Comment on above: Performed By: #### C ALICIA AVILA LIPA ####[facility] Ijygemnscr0975[address] [place], [place] [address]Dr. Lizandro Hemphill Urea nitrogen/Creatinin e [Mass ratio] 34.2 mg/mg Normal [facility] Comment on above: Performed By: #### C ALICIA AVILA LIPA ####[facility] Pqoxxqwypl9384[address] [place], [place] [address]Dr. Lizandro Hemphill PROTIMEon 06-26-2022 INR Coag (PPP) [Relative time] 1.07 {INR} Normal [facility] Comment on above: Performed By: #### P T ####[facility] Zcqadrklpk286[address] [place], [place] [address]Dr. Lizandro Hemphill INR GUIDELINES SEE BELOW Normal [facility] Comment on above: Result Comment: GUEVARA RED INR: 2.0 - 3.0 CONDITIONS NOT LISTED BELOW 2.5 - 3.5 FOR PROSTHETIC HEART VALVE REPLACEMENT 2.5 - 3.5 RECURRENT THROMBOSIS Performed By: #### P T ####[facility] Tnmynckpxi3754[address] [place], [place] [address]Dr. Lizandro Hemphill PT Coag (PPP) [Time] 11.3 s Normal 9.0-11.6 [facility] Comment on above: Performed By: #### P T ####[facility] Cwreipijgu[address]19[address] [place], [place] [address]Dr. Lizandro Hemphill INR Coag (PPP) [Relative time] 0.96 {INR} Normal [facility] Comment on above: Performed By: #### P T ####[facility] Uvkhndfgiu398[address] [place], [place] [address]DrCiro Hemphill INR GUIDELINES SEE BELOW Normal [facility] Comment on above: Result Comment: GUEVARA RED INR: 2.0 - 3.0 CONDITIONS NOT LISTED BELOW 2.5 - 3.5 FOR PROSTHETIC HEART VALVE REPLACEMENT 2.5 - 3.5 RECURRENT THROMBOSIS Performed By: #### P T ####[facility] Urqvccoaqx36[address] [place] [address]Dr. Lizandro Hemphill PT Coag (PPP) [Time] 10.2 s Normal 9.0-11.6 [facility] Comment on above: Performed By: #### P T ####[facility] Nmugiwxeet1870[address] [place], [place] [address]Dr. Lizandro Hemphill C. DIFF PCRon 05-31-2022 C. DIFFICILE PCR Negative Normal NEGATIVE The [facility] Comment on above: Performed By: #### C DIFPOC ####[facility] Iisdgrnlka5994[address] [place], [place] [address]Dr. Lizandro Hemphill CBC AUTO DIFFon 05-31-2022 BASO # 0.0 103/ul Normal 0.0-0.1 [facility] Comment on above: Performed By: #### C BC ####[facility] Pgardzaovb9254[address] [place], [place] [address]Dr. Lizandro Hemphill Basophils/100 WBC (Bld) 0.2 % Normal 0.2-2.0 [facility] Comment on above: Performed By: #### C BC ####[facility] Lbilxsucxa7277[address] [place], [place] [address]Dr. Lizandro Hemphill EO # 0.0 103/ul Normal 0.0-0.7 [facility] Comment on above: Performed By: #### C BC ####[facility] Mjpltwargg7848[address] [place], [place] [address]Dr. Lizandro Hemphill Eosinophils/100 WBC (Bld) 0.1 % Critically low 0.9-7.0 [facility] Comment on above: Performed By: #### C BC ####[facility] Mdtjbztldk6806[address] [place], [place] [address]Dr. Lizandro Hemphill Erythrocyte distribution width (RBC) [Ratio] 19.2 % Critically high 11.0-15.0 [facility] Comment on above: Performed By: #### C BC ####[facility] Anansrqwvi7[address] [place] [address]Dr. Lizandro Hemphill Hematocrit (Bld) [Volume fraction] 31.1 % Critically low 36.0-48.0 [facility] Comment on above: Performed By: #### C BC ####[facility] Xkrlrlonja53[address] [place] [address]Dr. Lizandro Hemphill Hemoglobin (Bld) [Mass/Vol] 10.1 g/dL Critically low 12.0-16.0 [facility] Comment on above: Performed By: #### C BC ####[facility] Jjxuivdsii52[address] [place] [address]Dr. Lizandro Hemphill IG # 0.07 10e3/ul Critically high 0.00-0.03 [facility] Comment on above: Performed By: #### C BC ####[facility] Yqhpbgmreq48[address] [place] [address]Dr. Lizandro Hemphill IG % 0.6 % Critically high 0.0-0.5 [facility] Comment on above: Performed By: #### C BC ####[facility] Emqbxzlxbn6880[address] [place], [place] [address]DrCiro Lizandro Hemphill LYMPH # 0.6 103/ul Critically low 1.2-3.8 [facility] Comment on above: Performed By: #### C BC ####[facility] Saqublhlvu38[address] [place] [address]DrCiro Lizandro Joby Lymphocytes/100 WBC (Bld) 5.1 % Critically low 20.5-60.0 [facility] Comment on above: Performed By: #### C BC ####[facility] Oelwinfizj8[address] [place] [address]DrCiro Shanikaannie Hemphill MANUAL DIFF REQ NO Normal [facility] Comment on above: Performed By: #### C BC ####[facility] Clskbdfcci2885[address] [place], [place] [address]DrCiro Shanikaannie Hemphill MCH (RBC) [Entitic mass] 27.8 pg Normal 26.7-34.0 [facility] Comment on above: Performed By: #### C BC ####[facility] [address]oxqliclg[address] [place] [id number]. Lizandro Hemphill MCHC (RBC) [Mass/Vol] 32.5 g/dL Normal 29.9-35.2 [facility] Comment on above: Performed By: #### C BC ####[facility] Qfueobwwqy1837 [place] [id number] Lizandro Joby MCV (RBC) [Entitic vol] 85.7 fL Normal 81.0-99.0 [facility] Comment on above: Performed By: #### C BC ####[facility] Cvakdseesm[address] [place] [id number] Vossannie Joby MONO # 0.9 103/ul Critically high 0.3-0.8 [facility] Comment on above: Performed By: #### C BC ####[facility] Streqzxtra[address] [place] [address]Dr. Lizandro Hemphill Monocytes/100 WBC (Bld) 7.4 % Normal 1.7-12.0 [facility] Comment on above: Performed By: #### C BC ####[facility] Obbxpplzwx[address] [place], [place] [address]Dr. Lizandro Hemphill NEUT # 10.5 103/ul Critically high 1.4-6.5 The [facility] Comment on above: Performed By: #### C BC ####[facility] Zjltuhewqa75[address] [place] [id number]. Lizandro Hemphill Neutrophils/100 WBC (Bld) 86.6 % Critically high 43.0-75.0 [facility] Comment on above: Performed By: #### C BC ####[facility] Uvftievtwg[address] [place], [place] [id number] Hemphill Platelet mean volume (Bld) [Entitic vol] 10.9 fL Normal 9.5-13.5 [facility] Comment on above: Performed By: #### C BC ####[facility] Pqsuufathm86[address] [place] [id number] Hemphill PLT 230 103/ul Normal 150-450 [facility] Comment on above: Performed By: #### C BC ####[facility] Fbaitwrcnn2735 [place] [id number]. Lizandro Hemphill RBC 3.63 106/ul Critically low 4.20-5.40 [facility] Comment on above: Performed By: #### C BC ####[facility] Zhxtsmurcu3854 [place] [id number]. Lizandro Hemphill WBC 12.1 103/ul Critically high 4.0-11.0 [facility] Comment on above: Performed By: #### C BC ####[facility] Iqdfdafohd47[address] [place] [id number]. Lizandro Hemphill GI PANEL (PCR)on 05-31-2022 Adenovirus F 40/41 Not detected Normal NOT DETECTED [facility] Comment on above: Performed By: #### G IPANEL ####[facility] Davokvvjmq1726[address] [place], [place] [address]Dr. Lizandro Hemphill Astrovirus Not detected Normal NOT DETECTED [facility] Comment on above: Performed By: #### G IPANEL ####[facility] Awxzclsvba54[address] [place] [address]Dr. iLzandro Hemphill C. Diff toxin A/B Not detected Normal NOT DETECTED [facility] Comment on above: Performed By: #### G IPANEL ####[facility] Mtrcutgbpf9[address] [place] [address]Dr. Lizandro Hemphill Campylobacter Not detected Normal NOT DETECTED [facility] Comment on above: Performed By: #### G IPANEL ####[facility] Gdqsqqktln7[address] [place] [address]Dr. Lizandro Hemphill Cryptosporidium Not detected Normal NOT DETECTED [facility] Comment on above: Performed By: #### G IPANEL ####[facility] Ccgoeplula12[address] [place], [place] [address]Dr. Lizandro Hemphill Cyclos. Cayetanensis Not detected Normal NOT DETECTED [facility] Comment on above: Performed By: #### G IPANEL ####[facility] Imebrcxmyx184[address] [place], [place] [address]Dr. Lizandro Hemphill E. Coli O157 Not Applicable Normal Not Applicable [facility] Comment on above: Performed By: #### G IPANEL ####[facility] Xhlphbcciz4[address] [place], [place] [address]Dr. Lizandro Hemphill E. histolytica Not detected Normal NOT DETECTED [facility] Comment on above: Performed By: #### G IPANEL ####[facility] Nikkboxmpp0569[address] [place], [place] [address]Dr. Shanikaannie Hemphill EAEC Not detected Normal NOT DETECTED [facility] Comment on above: Performed By: #### G IPANEL ####[facility] Uacxkrecss4356[address] [place], [place] [address]Dr. [facility] Not detected Normal NOT DETECTED [facility] Comment on above: Performed By: #### G IPANEL ####[facility] Fwtjfmiehi5924[address] [place], [place] [address]Dr. [facility] EPEC Not detected Normal NOT DETECTED [facility] Comment on above: Performed By: #### G IPANEL ####[facility] Jqixfgyxiw499[address] [place], [place] [address]Dr. Lizandro Hemphill ETEC Not detected Normal NOT DETECTED [facility] Comment on above: Performed By: #### G IPANEL ####[facility] Uuzuqmulsm[address] [place], [place] [address]Dr. Shanikaannie Hemphill G. Lamblia Not detected Normal NOT DETECTED [facility] Comment on above: Performed By: #### G IPANEL ####[facility] Pwmdqruyyi6318[address] [place], [place] [address]Dr. Lizandro Hemphill GIPANEL CONTROLS PASSED Normal The [facility] Comment on above: Performed By: #### G IPANEL ####[facility] Hqowrpzfgy2270[address] [place], [place] [address]Dr. Lizandro LEHMANNL CARIE HEADER GI PANEL BACTERIA Normal [facility] Comment on above: Performed By: #### G IPANEL ####[facility] Bdppbahrrm4524[address] [place], [place] [address]Dr. Lizandro LEHMANNLHD ECOLI GI PANEL DIARRHEAGEN IC E.COLI / SHIGELLA Normal [facility] Comment on above: Performed By: #### G IPANEL ####[facility] Oqjyqvdwcl[address] [place], [place] [address]Dr. Lizandro Joby GIPNLHD INFO SEE BELOW Normal [facility] Comment on above: Result Comment: EAEC - Enteroaggregative E. Coli EPEC- Enteropathogenic E. Coli ETEC- Enterotoxigenic E. Coli lt/st STEC- Shigella-like toxin-producing E. Coli stx1/stx2 EIEC- Shigella/Enteroinvasive E. Coli Performed By: #### G IPANEL ####[facility] Wmajgtfura0139[address] [place], [place] [address]Dr. Lizandro Hemphill GIPNLHD PARASITES GI PANEL PARASITES Normal [facility] Comment on above: Performed By: #### G IPANEL ####[facility] Ivwdyxuuwf9847[address] [place], [place] [address]Dr. Lizandro Hemphill GIPNICOLE VIRUS GI PANEL VIRUSES Normal [facility] Comment on above: Performed By: #### G IPANEL ####[facility] Aniuoarlui[address] [place], [place] [address]Dr. Lizandro Hemphill Norovirus GI/GII Not detected Normal NOT DETECTED [facility] Comment on above: Performed By: #### G IPANEL ####[facility] Eidwyfwhje089[address] [place], [place] [address]Dr. Lizandro Hemphill P. Shigelloides Not detected Normal NOT DETECTED [facility] Comment on above: Performed By: #### G IPANEL ####[facility] Ihntqzdhey[address] [place], [place] [address]Dr. Lizandro Hemphill Rotavirus A Not detected Normal NOT DETECTED [facility] Comment on above: Performed By: #### G IPANEL ####[facility] Iwpsfgsfcr7[address] [place], [place] [address]Dr. Lizandro Hemphill Salmonella Not detected Normal NOT DETECTED [facility] Comment on above: Performed By: #### G IPANEL ####[facility] Swadoxmxrx247[address] [place], [place] [address]Dr. Lizandro Hemphill Sapovirus Not detected Normal NOT DETECTED [facility] Comment on above: Performed By: #### G IPANEL ####[facility] Arbpkztvhj8[address] [place] [address]Dr. Lizandro Hemphill STEC Not detected Normal NOT DETECTED [facility] Comment on above: Performed By: #### G IPANEL ####[facility] Kgxeavbtyk7[address] [place] [address]Dr. Lizandro Hemphill Vibrio Not detected Normal NOT DETECTED [facility] Comment on above: Performed By: #### G IPANEL ####[facility] Naaqvhnvmx7976[address] [place], [place] [address]Dr. Lizandro Hemphill Vibrio Cholera Not detected Normal NOT DETECTED The [facility] Comment on above: Performed By: #### G IPANEL ####[facility] Zbvsunhwns[address] [place], [place] [address]Dr. Lizandro Hemphill Y. Enterocolitica Not detected Normal NOT DETECTED [facility] Comment on above: Performed By: #### G IPANEL ####[facility] Tcdmzmnivt0038[address] [place], [place] [address]Dr. Lizandro Hemphill PROF 14(COMP METB)on 023 Albumin [Mass/Vol] 2.4 g/dL Critically low 3.4-5.0 Th [facility] Comment on above: Performed By: #### C MP ####[facility] Bufkjxtxwv6[address] [place], [place] [address]Dr. Lizandro Hemphill Albumin/Globulin [Mass ratio] 0.9 {ratio} Normal [facility] Comment on above: Performed By: #### C MP ####[facility] Ciohbdlmfi3095[address] [place], [place] [address]Dr. Lizandro Hemphill ALP [Catalytic activity/Vol] 77 U/L Normal 46-116 The [facility] Comment on above: Performed By: #### C MP ####[facility] Kwtcigdsxr4696[address] [place], [place] [address]Dr. Lizandro Hemphill ALT [Catalytic activity/Vol] 20 U/L Normal 14-59 [facility] Comment on above: Performed By: #### C MP ####[facility] Vggyekfojm5934[address] [place], [place] [address]Dr. Lizandro Hemphill Anion gap [Moles/Vol] 10.9 mmol/L Normal [facility] Comment on above: Performed By: #### C MP ####[facility] Qwoqjtwjqa4688[address] [place], [place] [address]Dr. Lizandro Hemphill AST [Catalytic activity/Vol] 15 U/L Normal 15-37 [facility] Comment on above: Performed By: #### C MP ####[facility] Wwelrynfuy8154[address] [place], [place] [address]Dr. Lizandro Joby Bilirubin [Mass/Vol] 0.2 mg/dL Normal 0.2-1.0 The [facility] Comment on above: Performed By: #### C MP ####[facility] Cljkvgsvfl9708[address] [place], [place] [address]Dr. Shanikaannie Joby Calcium [Mass/Vol] 7.8 mg/dL Critically low 8.5-10.1 Th [facility] Comment on above: Performed By: #### C MP ####[facility] Fgvfxrgsfg399[address] [place], [place] [address]Dr. Lizandro Hemphill Chloride [Moles/Vol] 106 mmol/L Normal 98-107 The [facility] Comment on above: Performed By: #### C MP ####[facility] Kphxbskzof9[address] [place], [place] [address]Dr. Lizandro Joby CO2 [Moles/Vol] 25.3 mmol/L Normal 21.0-32.0 The [facility] Comment on above: Performed By: #### C MP ####[facility] Lwdofzuphr[address] [place], [place] [address]Dr. Lizandro Joby Creatinine [Mass/Vol] 1.07 mg/dL Critically high 0.55-1.02 [facility] Comment on above: Performed By: #### C MP ####[facility] Dtwjsddceu8[address] [place], [place] [address]Dr. Shanikaannie Joby EGFR-AF CHADIAN >60 Normal >=60 The [facility] Comment on above: Performed By: #### C MP ####[facility] Abhfifyith7456[address] [place], [place] [address]Dr. Lizandro Hemphill EGFR-NON AF CHADIAN 52 mL/min/1.73m2 Critically low >=60 [facility] Comment on above: Performed By: #### C MP ####[facility] Jdjmjrclsd[address] [place] [address]Dr. Shanikaannie Joby Globulin (S) [Mass/Vol] 2.8 g/dL Normal [facility] Comment on above: Performed By: #### C MP ####[facility] Asbkumrwbv30[address] [place] [address]Dr. Lizandro Hemphill Glucose [Mass/Vol] 254 mg/dL Critically high 74-106 [facility] Comment on above: Performed By: #### C MP ####[facility] Uylvqqknmj152[address] [place], [place] [address]Dr. Lizandro Hemphill Potassium [Moles/Vol] 3.2 mmol/L Critically low 3.5-5.1 [facility] Comment on above: Performed By: #### C MP ####[facility] Dablwpaeqg13[address] [place], [place] [address]Dr. Lizandro Hemphill Protein [Mass/Vol] 5.2 g/dL Critically low 6.4-8.2 [facility] Comment on above: Performed By: #### C MP ####[facility] Uivycvlcib738[address] [place], [place] [address]Dr. Lizandro Hemphill Sodium [Moles/Vol] 139 mmol/L Normal 136-145 [facility] Comment on above: Performed By: #### C MP ####[facility] Rsfwjxenyh[address] [place], [place] [address]Dr. Lizandro Hemphill Urea nitrogen [Mass/Vol] 9.0 mg/dL Normal 7.0-18.0 [facility] Comment on above: Performed By: #### C MP ####[facility] Lucuogtmio595[address] [place], [place] [address]Dr. Lizandro Hemphill Urea nitrogen/Creatinin e [Mass ratio] 8.4 mg/mg Normal [facility] Comment on above: Performed By: #### C MP ####[facility] Ckgiwrewqa8050[address] [place], [place] [address]Dr. Lizandro Hemphill PROTIMEon 05-31-2022 INR Coag (PPP) [Relative time] 1.94 {INR} Normal [facility] Comment on above: Performed By: #### P T ####[facility] Jpdmzryqrg14[address] [place], [place] [address]DrCiro Lizandro Hemphill INR GUIDELINES SEE BELOW Normal [facility] Comment on above: Result Comment: GUEVARA RED INR: 2.0 - 3.0 CONDITIONS NOT LISTED BELOW 2.5 - 3.5 FOR PROSTHETIC HEART VALVE REPLACEMENT 2.5 - 3.5 RECURRENT THROMBOSIS Performed By: #### P T ####[facility] Asxjhtibga3878[address] [place], [place] [address]Dr. Lizandro Hemphill PT Coag (PPP) [Time] 19.8 s Critically high 9.0-11.6 [facility] Comment on above: Performed By: #### P T ####[facility] Rbnljqzqvl216[address] [place], [place] [address]Dr. Lizandro Hemphill CBC AUTO DIFFon 05-30-2022 BASO # 0.0 103/ul Normal 0.0-0.1 [facility] Comment on above: Performed By: #### C BC ####[facility] Ihabucslsd6787[address] [place], [place] [address]Dr. Lizandro Hemphill Basophils/100 WBC (Bld) 0.3 % Normal 0.2-2.0 [facility] Comment on above: Performed By: #### C BC ####[facility] Wvhrjtsjad175[address] [place], [place] [address]DrCiro Hemphill EO # 0.0 103/ul Normal 0.0-0.7 [facility] Comment on above: Performed By: #### C BC ####[facility] Qptgkcxvgw000[address] [place], [place] [address]DrCiro Hemphill Eosinophils/100 WBC (Bld) 0.0 % Critically low 0.9-7.0 [facility] Comment on above: Performed By: #### C BC ####[facility] Crptuwwzkf6857[address] [place], [place] [address]DrCiro Hemphill Erythrocyte distribution width (RBC) [Ratio] 19.2 % Critically high 11.0-15.0 [facility] Comment on above: Performed By: #### C BC ####[facility] Ijuiedhrrw6[address] [place] [address]Dr. Lizandro Hemphill Hematocrit (Bld) [Volume fraction] 35.5 % Critically low 36.0-48.0 [facility] Comment on above: Performed By: #### C BC ####[facility] Tznvzcphop50[address] [place] [address]Dr. Lizandro Hemphill Hemoglobin (Bld) [Mass/Vol] 11.3 g/dL Critically low 12.0-16.0 [facility] Comment on above: Performed By: #### C BC ####[facility] Gaiagskjto8625[address] [place], [place] [address]Dr. Lizandro Hemphill IG # 0.03 10e3/ul Normal 0.00-0.03 [facility] Comment on above: Performed By: #### C BC ####[facility] Zfmcmdaqbz3357[address] [place], [place] [address]Dr. Lizandro Hemphill IG % 0.4 % Normal 0.0-0.5 [facility] Comment on above: Performed By: #### C BC ####[facility] Swerxmpggs1045[address] [place], [place] [address]DrCiro Hemphill LYMPH # 0.3 103/ul Critically low 1.2-3.8 [facility] Comment on above: Performed By: #### C BC ####[facility] Pwkjwbruym1967[address] [place], [place] [address]Dr. Lizandro Hemphill Lymphocytes/100 WBC (Bld) 3.9 % Critically low 20.5-60.0 [facility] Comment on above: Performed By: #### C BC ####[facility] Rtikeomqom4974[address] [place], [place] [address]DrCiro Hemphill MANUAL DIFF REQ NO Normal [facility] Comment on above: Performed By: #### C BC ####[facility] Hmaiqotsry353[address] [place], [place] [address]Dr. Lizandro Hemphill MCH (RBC) [Entitic mass] 26.9 pg Normal 26.7-34.0 [facility] Comment on above: Performed By: #### C BC ####[facility] Eudhuyaonw6[address] [place] [address]Dr. Lizandro Hemphill MCHC (RBC) [Mass/Vol] 31.8 g/dL Normal 29.9-35.2 [facility] Comment on above: Performed By: #### C BC ####[facility] Slgrgdzhln9[address] [place] [address]DrCiro Hemphill MCV (RBC) [Entitic vol] 84.5 fL Normal 81.0-99.0 [facility] Comment on above: Performed By: #### C BC ####[facility] Nwsszvkjmb075[address] [place], [place] [address]DrCiro Hemphill MONO # 0.1 103/ul Critically low 0.3-0.8 [facility] Comment on above: Performed By: #### C BC ####[facility] Dfmzwbtaae3048[address] [place], [place] [address]Dr. Lizandro Hemphill Monocytes/100 WBC (Bld) 1.0 % Critically low 1.7-12.0 The [facility] Comment on above: Performed By: #### C BC ####[facility] Udvigbadpc3174[address] [place], [place] [address]DrCiro Hemphill NEUT # 6.5 103/ul Normal 1.4-6.5 [facility] Comment on above: Performed By: #### C BC ####[facility] Nrvktlbrhm12[address] [place], [place] [address]DrCiro Hemphill Neutrophils/100 WBC (Bld) 94.4 % Critically high 43.0-75.0 [facility] Comment on above: Performed By: #### C BC ####[facility] Dhaoougwtw536[address] [place], [place] [address]DrCiro Hemphill Platelet mean volume (Bld) [Entitic vol] 10.3 fL Normal 9.5-13.5 [facility] Comment on above: Performed By: #### C BC ####[facility] Turuluiokt2859[address] [place], [place] [address]Dr. Lizandro Hemphill PLT 248 103/ul Normal 150-450 [facility] Comment on above: Performed By: #### C BC ####[facility] Omdjokcnhx[address] [place] [address]Dr. Lizandro Hemphill RBC 4.20 106/ul Normal 4.20-5.40 [facility] Comment on above: Performed By: #### C BC ####[facility] Szuhvcnsst[address] [place] [id number]. Shanikaannie Joby WBC 6.9 103/ul Normal 4.0-11.0 [facility] Comment on above: Performed By: #### C BC ####[facility] Xzpgxgkghc[address] [place] [address]Dr. Lizandro Hemphill CT ABD/PELV W CONon 05-31-19 CT ABD/PELV W CON Normal [facility] PRBC LEUKOREDUCEDon 05-31-19 23 PRBC LEUKOREDUCED Normal [facility] Comment on above: Performed By: #### P RBC ####[facility] Fqcbzsinux5332[address] [place], [place] [address]Dr. Lizandro Hemphill PROF 14(COMP METB)on 023 Albumin [Mass/Vol] 2.8 g/dL Critically low 3.4-5.0 Th [facility] Comment on above: Performed By: #### C MP ####[facility] Czbndxrexi80[address] [place] [address]Dr. Lizandro Hemphill Albumin/Globulin [Mass ratio] 0.8 {ratio} Normal [facility] Comment on above: Performed By: #### C MP ####[facility] Tjdgwldrcn[address] [place] [address]Dr. Lizandro Hemphill ALP [Catalytic activity/Vol] 100 U/L Normal 46-116 [facility] Comment on above: Performed By: #### C MP ####[facility] Ojocghzzov7[address] [place] [address]Dr. Lizanrdo Hemphill ALT [Catalytic activity/Vol] 28 U/L Normal 14-59 [facility] Comment on above: Performed By: #### C MP ####[facility] Kgtxvncxrh9[address] [place] [address]Dr. Lizandro Hemphill Anion gap [Moles/Vol] 11.5 mmol/L Normal [facility] Comment on above: Performed By: #### C MP ####[facility] Jssrtrzrns1808[address] [place], [place] [address]Dr. Lizandro Hemphill AST [Catalytic activity/Vol] 23 U/L Normal 15-37 [facility] Comment on above: Performed By: #### C MP ####[facility] Kbdorrtwyi8289[address] [place], [place] [address]Dr. Lizandro Joby Bilirubin [Mass/Vol] 0.3 mg/dL Normal 0.2-1.0 [facility] Comment on above: Performed By: #### C MP ####[facility] Kcizzpredd4385[address] [place], [place] [address]Dr. Lizandro Hemphill Calcium [Mass/Vol] 8.4 mg/dL Critically low 8.5-10.1 [facility] Comment on above: Performed By: #### C MP ####[facility] Aeilrxenna36232[address] [place], [place] [address]Dr. Lizandro Joby Chloride [Moles/Vol] 105 mmol/L Normal 98-107 [facility] Comment on above: Performed By: #### C MP ####[facility] Xfstassoft0459[address] [place], [place] [address]Dr. Lizandro Joby CO2 [Moles/Vol] 30.5 mmol/L Normal 21.0-32.0 The [facility] Comment on above: Performed By: #### C MP ####[facility] Lzxjvhnrqw4027[address] [place], [place] [address]Dr. Shanikaannie Joby Creatinine [Mass/Vol] 0.93 mg/dL Normal 0.55-1.02 The [facility] Comment on above: Performed By: #### C MP ####[facility] Ldnwjrgdkp7928[address] [place], [place] [address]Dr. Shanikaannie Joby EGFR-AF CHADIAN >60 Normal >=60 The [facility] Comment on above: Performed By: #### C MP ####[facility] Ivtzoounye5812[address] [place], [place] [address]Dr. Lizandro Joby EGFR-NON AF CHADIAN >60 Normal >=60 [facility] Comment on above: Performed By: #### C MP ####[facility] Ozgpczcnen85[address] [place] [address]Dr. Lizandro Joby Globulin (S) [Mass/Vol] 3.4 g/dL Normal [facility] Comment on above: Performed By: #### C MP ####[facility] Ptyrkpwbhl3966 [place] [address]Dr. Shanikaannie Joby Glucose [Mass/Vol] 177 mg/dL Critically high 74-106 [facility] Comment on above: Performed By: #### C MP ####[facility] Vmntjkxdfd6469[address] [place], [place] [address]Dr. Lizandro Hemphill Potassium [Moles/Vol] 4.0 mmol/L Normal 3.5-5.1 [facility] Comment on above: Performed By: #### C MP ####[facility] Ogfgllpgue4378[address] [place], [place] [address]Dr. Shanikaannie Hemphill Protein [Mass/Vol] 6.2 g/dL Critically low 6.4-8.2 Th [facility] Comment on above: Performed By: #### C MP ####[facility] Jfuiipjwsq2484[address] [place], [place] [address]Dr. Lizandro Hemphill Sodium [Moles/Vol] 143 mmol/L Normal 136-145 [facility] Comment on above: Performed By: #### C MP ####[facility] Zdxxsngtyl8109[address] [place], [place] [address]Dr. Lizandro Hemphill Urea nitrogen [Mass/Vol] 10.0 mg/dL Normal 7.0-18.0 [facility] Comment on above: Performed By: #### C MP ####[facility] Qtqzmdqogo2816[address] [place], [place] [address]Dr. Lizandro Hemphill Urea nitrogen/Creatinin e [Mass ratio] 10.8 mg/mg Normal [facility] Comment on above: Performed By: #### C MP ####[facility] Lkzqmkmhmt9838[address] [place], [place] [address]Dr. Lizandro Hemphill PROTIMEon 05-30-2022 INR Coag (PPP) [Relative time] 1.24 {INR} Normal [facility] Comment on above: Performed By: #### P T ####[facility] Hnfnwftaxu5464[address] [place], [place] [address]Dr. Lizandro Hemphill INR GUIDELINES SEE BELOW Normal [facility] Comment on above: Result Comment: GUEVARA RED INR: 2.0 - 3.0 CONDITIONS NOT LISTED BELOW 2.5 - 3.5 FOR PROSTHETIC HEART VALVE REPLACEMENT 2.5 - 3.5 RECURRENT THROMBOSIS Performed By: #### P T ####[facility] Szhjgxjnek8625[address] [place], [place] [address]Dr. Lizandro Hemphill PT Coag (PPP) [Time] 13.0 s Critically high 9.0-11.6 [facility] Comment on above: Performed By: #### P T ####[facility] Jhvwzalzxd2267[address] [place], [place] [address]Dr. Lizandro Hemphill CBC AUTO DIFFon 05-29-2022 BASO # 0.0 103/ul Normal 0.0-0.1 [facility] Comment on above: Performed By: #### C BC ####[facility] Tqbqsqksan8030[address] [place], [place] [address]Dr. Lizandro Hemphill Basophils/100 WBC (Bld) 0.3 % Normal 0.2-2.0 [facility] Comment on above: Performed By: #### C BC ####[facility] Xhfkjtnwls9187[address] [place], [place] [address]Dr. Lizandro Hemphill EO # 0.1 103/ul Normal 0.0-0.7 [facility] Comment on above: Performed By: #### C BC ####[facility] Whgjuosydt07232[address] [place], [place] [address]DrCiro Hemphill Eosinophils/100 WBC (Bld) 0.6 % Critically low 0.9-7.0 [facility] Comment on above: Performed By: #### C BC ####[facility] Mtsirnaitq0768[address] [place], [place] [address]Dr. Lizandro Hemphill Erythrocyte distribution width (RBC) [Ratio] 19.1 % Critically high 11.0-15.0 [facility] Comment on above: Performed By: #### C BC ####[facility] Vifzowaywo230[address] [place] [address]DrCiro Hemphill Hematocrit (Bld) [Volume fraction] 34.1 % Critically low 36.0-48.0 [facility] Comment on above: Performed By: #### C BC ####[facility] Declltgakn9598 [place] [address]DrCiro Hemphill Hemoglobin (Bld) [Mass/Vol] 10.9 g/dL Critically low 12.0-16.0 [facility] Comment on above: Performed By: #### C BC ####[facility] Nlgecwsijb9550[address] [place], [place] [address]DrCiro Hemphill IG # 0.04 10e3/ul Critically high 0.00-0.03 [facility] Comment on above: Performed By: #### C BC ####[facility] Jyhmotbapg3869[address] [place], [place] [address]DrCiro Hemphill IG % 0.5 % Normal 0.0-0.5 [facility] Comment on above: Performed By: #### C BC ####[facility] Cguvhphnds4844[address] [place], [place] [address]DrCiro Hemphill LYMPH # 0.9 103/ul Critically low 1.2-3.8 [facility] Comment on above: Performed By: #### C BC ####[facility] Ztkygaonxj6644[address] [place], [place] [address]DrCiro Hemphill Lymphocytes/100 WBC (Bld) 10.5 % Critically low 20.5-60.0 [facility] Comment on above: Performed By: #### C BC ####[facility] Ialyxuoiou6479[address] [place], [place] [address]DrCiro Hemphill MANUAL DIFF REQ NO Normal [facility] Comment on above: Performed By: #### C BC ####[facility] Nocdtkdoig6093 [place] [address]DrCiro Hemphill MCH (RBC) [Entitic mass] 26.7 pg Normal 26.7-34.0 [facility] Comment on above: Performed By: #### C BC ####[facility] Cepfztvlzl[address] [place] [address]DrCiro Hemphill MCHC (RBC) [Mass/Vol] 32.0 g/dL Normal 29.9-35.2 [facility] Comment on above: Performed By: #### C BC ####[facility] Ztpiobpdrn7813 [place] [address]DrCiro Hemphill MCV (RBC) [Entitic vol] 83.6 fL Normal 81.0-99.0 [facility] Comment on above: Performed By: #### C BC ####[facility] Nwcrxhkvyl20[address] [place], [place] [address]DrCiro Hemphill MONO # 0.9 103/ul Critically high 0.3-0.8 [facility] Comment on above: Performed By: #### C BC ####[facility] Yzvveaimah3458[address] [place], [place] [address]DrCiro Hemphill Monocytes/100 WBC (Bld) 10.1 % Normal 1.7-12.0 [facility] Comment on above: Performed By: #### C BC ####[facility] Wanzbbvfwg20[address] [place], [place] [address]DrCiro Hemphill NEUT # 6.9 103/ul Critically high 1.4-6.5 [facility] Comment on above: Performed By: #### C BC ####[facility] Jbezgcdtjr115[address] [place], [place] [address]DrCiro Hemphill Neutrophils/100 WBC (Bld) 78.0 % Critically high 43.0-75.0 [facility] Comment on above: Performed By: #### C BC ####[facility] Mupxjvmqzp[address] [place], [place] [address]DrCiro Hemphill Platelet mean volume (Bld) [Entitic vol] 11.3 fL Normal 9.5-13.5 [facility] Comment on above: Performed By: #### C BC ####[facility] Pglbrqouih183[address] [place], [place] [address]DrCiro Hemphill PLT 196 103/ul Normal 150-450 [facility] Comment on above: Performed By: #### C BC ####[facility] Galbbpvuxk[address] [place] [id number]. Lizandro Hemphill RBC 4.08 106/ul Critically low 4.20-5.40 [facility] Comment on above: Performed By: #### C BC ####[facility] Mzclimgrlm25[address] [place] [id number]. Lizandro Hemphill WBC 8.8 103/ul Normal 4.0-11.0 [facility] Comment on above: Performed By: #### C BC ####[facility] Ajecyeoqfq6[address] [place] [id number]. Lizandro Joby CT ABD/PELVIS WO CONon 05-29 CT ABD/PELVIS WO CON Normal [facility] CULTURE URINEon 05-29-2022 CULTURE URINE Culture Observations : NO GROWTH. Normal [facility] Comment on above: Performed By: #### U RCX ####[facility] Wcfivbfsfg[address] [place] [address]Dr. Shanikaannie Joby PROF 14(COMP METB)on 023 Albumin [Mass/Vol] 2.8 g/dL Critically low 3.4-5.0 [facility] Comment on above: Performed By: #### C MP ####[facility] Zirxhcvexc044[address] [place] [address]Dr. Lizandro Hemphill Albumin/Globulin [Mass ratio] 0.9 {ratio} Normal [facility] Comment on above: Performed By: #### C MP ####[facility] Yxcqwfmmhw4942 [place] [id number]. Lizandro Hemphill ALP [Catalytic activity/Vol] 97 U/L Normal 46-116 [facility] Comment on above: Performed By: #### C MP ####[facility] Bbiarpvmei[address] [place] [id number]. Lizandro Hemphill ALT [Catalytic activity/Vol] 32 U/L Normal 14-59 [facility] Comment on above: Performed By: #### C MP ####[facility] Biskwcoioa15[address] [place] [id number]. Lizandro Hemphill Anion gap [Moles/Vol] 10.6 mmol/L Normal [facility] Comment on above: Performed By: #### C MP ####[facility] Njonkqgjeu020[address] [place] [address]Dr. Lizandro Hemphill AST [Catalytic activity/Vol] 32 U/L Normal 15-37 [facility] Comment on above: Performed By: #### C MP ####[facility] Yscjifjylu38[address] [place] [address]Dr. Lizandro Hemphill Bilirubin [Mass/Vol] 0.4 mg/dL Normal 0.2-1.0 [facility] Comment on above: Performed By: #### C MP ####[facility] Oqmthxejaj7[address] [place] [address]Dr. Lizandro Hemphill Calcium [Mass/Vol] 8.3 mg/dL Critically low 8.5-10.1 Th [facility] Comment on above: Performed By: #### C MP ####[facility] Gnxnzllosb40[address] [place], [place] [address]Dr. Lizandro Hemphill Chloride [Moles/Vol] 103 mmol/L Normal 98-107 [facility] Comment on above: Performed By: #### C MP ####[facility] Upaabsdiwu[address] [place], [place] [address]Dr. Lizandro Hemphill CO2 [Moles/Vol] 31.5 mmol/L Normal 21.0-32.0 The [facility] Comment on above: Performed By: #### C MP ####[facility] Btiszwtqae9[address] [place], [place] [address]Dr. Lizandro Joby Creatinine [Mass/Vol] 0.83 mg/dL Normal 0.55-1.02 [facility] Comment on above: Performed By: #### C MP ####[facility] Twupskuusu9[address] [place], [place] [address]Dr. Shanikaannie Joby EGFR-AF CHADIAN >60 Normal >=60 The [facility] Comment on above: Performed By: #### C MP ####[facility] Xegvjjnsjz07[address] [place], [place] [address]Dr. Lizandro Hemphill EGFR-NON AF CHADIAN >60 Normal >=60 [facility] Comment on above: Performed By: #### C MP ####[facility] [address]cgbdtt[address] [place] [address]Dr. Lizandro Hemphill Globulin (S) [Mass/Vol] 3.2 g/dL Normal [facility] Comment on above: Performed By: #### C MP ####[facility] Cyroycxaow[address] [place], [place] [address]Dr. Lizandro Hemphill Glucose [Mass/Vol] 120 mg/dL Critically high 74-106 [facility] Comment on above: Performed By: #### C MP ####[facility] Dzwljghwnc[address] [place], [place] [address]Dr. Lizandro Hemphill Potassium [Moles/Vol] 3.1 mmol/L Critically low 3.5-5.1 [facility] Comment on above: Performed By: #### C MP ####[facility] Izvglicyvg6398[address] [place], [place] [address]Dr. Lizandro Hemphill Protein [Mass/Vol] 6.0 g/dL Critically low 6.4-8.2 Th [facility] Comment on above: Performed By: #### C MP ####[facility] Qxhtixefve6822[address] [place], [place] [address]Dr. Lizandro Hemphill Sodium [Moles/Vol] 142 mmol/L Normal 136-145 [facility] Comment on above: Performed By: #### C MP ####[facility] Ymxxgwafoz4330[address] [place], [place] [address]Dr. Lizandro Hemphill Urea nitrogen [Mass/Vol] 8.0 mg/dL Normal 7.0-18.0 [facility] Comment on above: Performed By: #### C MP ####[facility] Kphtsbdagf2037[address] [place], [place] [address]Dr. Lizandro Hemphill Urea nitrogen/Creatinin e [Mass ratio] 9.6 mg/mg Normal [facility] Comment on above: Performed By: #### C MP ####[facility] Ujyhasexdq27[address] [place], [place] [address]DrCiro Hemphill PROTIMEon 05-29-2022 INR Coag (PPP) [Relative time] 1.11 {INR} Normal [facility] Comment on above: Performed By: #### P T ####[facility] Stfavabsym20[address] [place] [address]Dr. Lizandro Hemphill INR GUIDELINES SEE BELOW Normal The [facility] Comment on above: Result Comment: GUEVARA RED INR: 2.0 - 3.0 CONDITIONS NOT LISTED BELOW 2.5 - 3.5 FOR PROSTHETIC HEART VALVE REPLACEMENT 2.5 - 3.5 RECURRENT THROMBOSIS Performed By: #### P T ####[facility] Dmxeqcvuoq1524[address] [place], [place] [address]DrCiro Hemphill PT Coag (PPP) [Time] 11.7 s Critically high 9.0-11.6 [facility] Comment on above: Performed By: #### P T ####[facility] Kvpkqyskjw5125[address] [place], [place] [address]DrCiro Hemphill UA RANDOM W/MICROSCOPICon BACTERIA NONE SEEN Normal NONE SEEN [facility] Comment on above: Performed By: #### U AMIC ####[facility] Xxnynpwjzu4378[address] [place], [place] [address]DrCiro Hemphill Bilirubin Ql (U) Negative Normal NEGATIVE The [facility] Comment on above: Performed By: #### U AMIC ####[facility] Gfypbnqbhl[address] [place], [place] [address]DrCiro Hemphill CAST NONE SEEN Normal NONE SEEN [facility] Comment on above: Performed By: #### U AMIC ####[facility] Adkhepdwfc7440[address] [place], [place] [address]DrCiro Hemphill Clarity (U) CLEAR Normal CLEAR [facility] Comment on above: Performed By: #### U AMIC ####[facility] Irnrdclnfh27[address] [place], [place] [address]DrCiro Hemphill Color (U) LT. YELLOW Normal YELLOW The [facility] Comment on above: Performed By: #### U AMIC ####[facility] Gtkqprudos3199[address] [place], [place] [address]DrCiro Hemphill Crystals LM Nom (Urine sed) NONE SEEN Normal NONE SEEN The [facility] Comment on above: Performed By: #### U AMIC ####[facility] Rfvsrsniex9[address] [place] [id number]. Lizandro Hemphill Epithelial cells LM Ql (Urine sed) NONE SEEN Normal NONE SEEN /RARE [facility] Comment on above: Performed By: #### U AMIC ####[facility] Tpijwbvqzh9978 [place] [id number]. Lizandro Hemphill Glucose Ql (U) Negative Normal NEGATIVE [facility] Comment on above: Performed By: #### U AMIC ####[facility] Wqfrvgqwvp2389 [place] [id number]. Lizandro Hemphill Hemoglobin Ql (U) Negative Normal NEGATIVE [facility] Comment on above: Performed By: #### U AMIC ####[facility] Cvieotftbv6384 [place] [phone]. Lizandro Hemphill Ketones Ql (U) Negative Normal NEGATIVE [facility] Comment on above: Performed By: #### U AMIC ####[facility] Irtiqjoaat2163 [place] [id number]. Lizandro Hemphill LEUKOCYTES Negative Normal NEGATIVE The [facility] Comment on above: Performed By: #### U AMIC ####[facility] Iypbinrkra1879 [place] [phone]. Lizandro Hemphill MUCOUS NONE SEEN Normal NONE SEEN The [facility] Comment on above: Performed By: #### U AMIC ####[facility] Tjgeqmskoa0969 [place] [phone]. Lizandro Hemphill Nitrite Ql (U) Negative Normal NEGATIVE The [facility] Comment on above: Performed By: #### U AMIC ####[facility] Xoxsyeeivv8517 [place] [id number]. Lizandro Hemphill pH (U) 7.5 [pH] Normal 5-9 [facility] Comment on above: Performed By: #### U AMIC ####[facility] Urstqtibbl1201 [place] [phone]. Lizandro Hemphill RBC NONE SEEN Abnormal 0-2 [facility] Comment on above: Performed By: #### U AMIC ####[facility] Hmuyaweobu7756 [place] [phone]. Lizandro Hemphill SPEC GRAVITY 1.010 Normal 1.005-<=1.025 [facility] Comment on above: Performed By: #### U AMIC ####[facility] Agulkpgpjh2917 [place] [phone]. Lizandro Hemphill UA PROTEIN Negative Normal NEGATIVE/ TRACE The [facility] Comment on above: Performed By: #### U AMIC ####[facility] Pauvyvlkrb0277 [place] [phone]. Lizandro Hemphill Urobilinogen Qn (U) 0.2 {Cassy'U}/dL Normal 0.2 - 1.0 [facility] Comment on above: Performed By: #### U AMIC ####[facility] Augqdzvkjt5376[address] [place], [place] [address]Dr. Lizandro Hemphill WBC NONE SEEN Normal NONE SEEN The [facility] Comment on above: Performed By: #### U AMIC ####[facility] Nhlvrtbado7126 [place] [phone]. Lizandro Joby CBC AUTO DIFFon 05-28-2022 BASO # 0.0 103/ul Normal 0.0-0.1 [facility] Comment on above: Performed By: #### C BC ####[facility] Ohplbifrwe4845[address] [place], [place] [address]Dr. Lizandro Hemphill Basophils/100 WBC (Bld) 0.6 % Normal 0.2-2.0 [facility] Comment on above: Performed By: #### C BC ####[facility] Qidgantdrz8821 [place] [id number]. Lizandro Hemphill EO # 0.0 103/ul Normal 0.0-0.7 [facility] Comment on above: Performed By: #### C BC ####[facility] Nrejfudobp[address] [place] [address]Dr. Lizandro Hemphill Eosinophils/100 WBC (Bld) 0.6 % Critically low 0.9-7.0 [facility] Comment on above: Performed By: #### C BC ####[facility] Vweisgeepf[address] [place] [address]Dr. Lizandro Hemphill Erythrocyte distribution width (RBC) [Ratio] 18.6 % Critically high 11.0-15.0 [facility] Comment on above: Performed By: #### C BC ####[facility] Xzrtyqfdab9034 [place] [address]Dr. Lizandro Hemphill Hematocrit (Bld) [Volume fraction] 31.6 % Critically low 36.0-48.0 [facility] Comment on above: Performed By: #### C BC ####[facility] Egtgmklcsu9839[address] [place], [place] [address]Dr. Lizandro Hemphill Hemoglobin (Bld) [Mass/Vol] 10.2 g/dL Critically low 12.0-16.0 [facility] Comment on above: Performed By: #### C BC ####[facility] Blwwyeriha7508[address] [place], [place] [address]Dr. Lizandro Hemphill IG # 0.03 10e3/ul Normal 0.00-0.03 [facility] Comment on above: Performed By: #### C BC ####[facility] Uwjbcrffum7426[address] [place], [place] [address]DrCiro Lizandro Hemphill IG % 0.4 % Normal 0.0-0.5 [facility] Comment on above: Performed By: #### C BC ####[facility] Tlmqijixhc6839[address] [place], [place] [address]DrCiro Lizandro Hemphill LYMPH # 0.9 103/ul Critically low 1.2-3.8 [facility] Comment on above: Performed By: #### C BC ####[facility] Naugvewbuq8546[address] [place], [place] [address]DrCiro Lizandro Hemphill Lymphocytes/100 WBC (Bld) 12.6 % Critically low 20.5-60.0 [facility] Comment on above: Performed By: #### C BC ####[facility] Caryogqeck0717[address] [place], [place] [address]Dr. Lizandro Joby MANUAL DIFF REQ NO Normal [facility] Comment on above: Performed By: #### C BC ####[facility] Jlqxnzlfth6858 [place] [phone]. Lizandro Joby MCH (RBC) [Entitic mass] 26.7 pg Normal 26.7-34.0 [facility] Comment on above: Performed By: #### C BC ####[facility] Qlztksvpbb2553 [place] [address]Dr. Lizandro Joby MCHC (RBC) [Mass/Vol] 32.3 g/dL Normal 29.9-35.2 [facility] Comment on above: Performed By: #### C BC ####[facility] Vlhyjibpel5766 [place] [address]Dr. Lizandro Hemphill MCV (RBC) [Entitic vol] 82.7 fL Normal 81.0-99.0 [facility] Comment on above: Performed By: #### C BC ####[facility] Hxxrcvhlyl1516[address] [place], [place] [address]Dr. Lizandro Hemphill MONO # 0.7 103/ul Normal 0.3-0.8 [facility] Comment on above: Performed By: #### C BC ####[facility] Ezpkbagqsc8116[address] [place], [place] [address]Dr. Lizandro Hemphill Monocytes/100 WBC (Bld) 10.2 % Normal 1.7-12.0 [facility] Comment on above: Performed By: #### C BC ####[facility] Ooicxtcmiz4237[address] [place], [place] [address]DrCiro Hemphill NEUT # 5.4 103/ul Normal 1.4-6.5 [facility] Comment on above: Performed By: #### C BC ####[facility] Hmqqzoggzt6777[address] [place], [place] [address]DrCiro Hemphill Neutrophils/100 WBC (Bld) 75.6 % Critically high 43.0-75.0 [facility] Comment on above: Performed By: #### C BC ####[facility] Tqlcgqddgi4650[address] [place], [place] [address]DrCiro Hemphill Platelet mean volume (Bld) [Entitic vol] 10.4 fL Normal 9.5-13.5 [facility] Comment on above: Performed By: #### C BC ####[facility] Wwkcxasitz5293 [place] [address]Dr. Lizandro Hemphill PLT 260 103/ul Normal 150-450 [facility] Comment on above: Performed By: #### C BC ####[facility] Yctbcsudrk0399 [place] [address]Dr. Lizandro Hemphill RBC 3.82 106/ul Critically low 4.20-5.40 [facility] Comment on above: Performed By: #### C BC ####[facility] Ajfichbwnl4120 [place] [address]Dr. Lizandro Hemphill WBC 7.2 103/ul Normal 4.0-11.0 [facility] Comment on above: Performed By: #### C BC ####[facility] Zymftiwncz3410[address] [place], [place] [address]Dr. Lizandro Hemphill ER URINE PROFILEon 3 Bilirubin Ql (U) Negative Normal NEGATIVE [facility] Comment on above: Performed By: #### E RUR ####[facility] Cyytnnfayd9726[address] [place], [place] [address]Dr. Lizandro Hemphill Clarity (U) CLEAR Normal CLEAR [facility] Comment on above: Performed By: #### E RUR ####[facility] Jcsaatymqj507[address] [place], [place] [address]Dr. Lizandro Hemphill Color (U) LT. YELLOW Normal YELLOW [facility] Comment on above: Performed By: #### E RUR ####[facility] Mifdwwarkk[address] [place], [place] [id number]. Lizandro Hemphill ERUAHD A micrscopic examina tion will be performed if indicated. Normal The [facility] Comment on above: Performed By: #### E RUR ####[facility] Uzwitnbfji8526 [place] [address]Dr. Lizandro Hemphill Glucose Ql (U) Negative Normal NEGATIVE [facility] Comment on above: Performed By: #### E RUR ####[facility] Gstnezhhtg2358 [place] [address]Dr. Lizandro Hemphill Hemoglobin Ql (U) Negative Normal NEGATIVE [facility] Comment on above: Performed By: #### E RUR ####[facility] Kluyhlgtae8580[address] [place], [place] [address]Dr. Lizandro Hemphill Ketones Ql (U) Negative Normal NEGATIVE [facility] Comment on above: Performed By: #### E RUR ####[facility] Ljktizcufw7[address] [place], [place] [address]Dr. Lizandro Hemphill LEUKOCYTES Negative Normal NEGATIVE The [facility] Comment on above: Performed By: #### E RUR ####[facility] Krrsiktukq177[address] [place], [place] [address]Dr. Lizandro Hemphill Nitrite Ql (U) Negative Normal NEGATIVE [facility] Comment on above: Performed By: #### E RUR ####[facility] Uyyuidlkdu758[address] [place], [place] [address]Dr. Lizandro Hemphill pH (U) 6.5 [pH] Normal 5-9 [facility] Comment on above: Performed By: #### E RUR ####[facility] Ktqharmahm2316[address] [place], [place] [address]Dr. Lizandro Hemphill SPEC GRAVITY <=1.005 Abnormal 1.005-<=1.025 [facility] Comment on above: Performed By: #### E RUR ####[facility] Roqbzrbnst104[address] [place], [place] [address]Dr. Lizandro Joby UA PROTEIN Negative Normal NEGATIVE/ TRACE The [facility] Comment on above: Performed By: #### E RUR ####[facility] Anoxzwnylk0132[address] [place], [place] [address]Dr. Lizandro Joby UR MICRO IND NOT INDICATED Normal [facility] Comment on above: Performed By: #### E RUR ####[facility] Zltltcsdru0[address] [place], [place] [address]Dr. Lizandro Joby Urobilinogen Qn (U) 0.2 {Cassy'U}/dL Normal 0.2 - 1.0 [facility] Comment on above: Performed By: #### E RUR ####[facility] Evqtdepytc3[address] [place] [address]Dr. Shanikaannie Hemphill GI PANEL (PCR)on 05-28-2022 Adenovirus F 40/41 Not detected Normal NOT DETECTED [facility] Comment on above: Performed By: #### G IPANEL ####[facility] Chpexyqckz13[address] [place] [address]Dr. Lizandro Hemphill Astrovirus Not detected Normal NOT DETECTED [facility] Comment on above: Performed By: #### G IPANEL ####[facility] Vtcikoxcpx401[address] [place], [place] [address]Dr. Lizandro Hemphill C. Diff toxin A/B Not detected Normal NOT DETECTED [facility] Comment on above: Performed By: #### G IPANEL ####[facility] Dcugidjowj3397[address] [place], [place] [address]Dr. Lizandro Hemphill Campylobacter Not detected Normal NOT DETECTED [facility] Comment on above: Performed By: #### G IPANEL ####[facility] Wtxeeuthsa1057[address] [place], [place] [address]Dr. Lizandro Hemphill Cryptosporidium Not detected Normal NOT DETECTED [facility] Comment on above: Performed By: #### G IPANEL ####[facility] Qmvrkccdca9857[address] [place], [place] [address]Dr. Shanikaannie Joby Cyclos. Cayetanensis Not detected Normal NOT DETECTED [facility] Comment on above: Performed By: #### G IPANEL ####[facility] Xjdwopjfhc68[address] [place], [place] [address]Dr. Lizandro Hemphill E. Coli O157 Not Applicable Normal Not Applicable [facility] Comment on above: Performed By: #### G IPANEL ####[facility] Rgcdyanyxz7384[address] [place], [place] [address]Dr. Lizandro Hemphill E. histolytica Not detected Normal NOT DETECTED The [facility] Comment on above: Performed By: #### G IPANEL ####[facility] Pkdwpzewbx8876[address] [place], [place] [address]Dr. Lizandro Hemphill EAEC Not detected Normal NOT DETECTED [facility] Comment on above: Performed By: #### G IPANEL ####[facility] Iarunfnxqe5155 [place] [id number]. Lizandro Hemphill EIEC Not detected Normal NOT DETECTED [facility] Comment on above: Performed By: #### G IPANEL ####[facility] Ivwyorgytq8637 [place] [address]Dr. Lizandro Hemphill EPEC Not detected Normal NOT DETECTED [facility] Comment on above: Performed By: #### G IPANEL ####[facility] Vwtyfrfldu3146 [place] [address]Dr. Lizandro Hemphill ETEC Not detected Normal NOT DETECTED [facility] Comment on above: Performed By: #### G IPANEL ####[facility] Ritddrckvz5016[address] [place], [place] [address]Dr. Lizandro Hemphill G. Lamblia Not detected Normal NOT DETECTED [facility] Comment on above: Performed By: #### G IPANEL ####[facility] Dpfhocnosv4446[address] [place], [place] [address]Dr. Shanikaannie [facility] Normal The [facility] Comment on above: Performed By: #### G IPANEL ####[facility] Bmbzsbljhw0256[address] [place], [place] [address]Dr. Lizandro [facility] HEADER GI PANEL BACTERIA Normal [facility] Comment on above: Performed By: #### G IPANEL ####[facility] Hecdzfdmte327[address] [place], [place] [address]Dr. Lizandro [facility] ECOLI GI PANEL DIARRHEAGEN IC E.COLI / SHIGELLA Normal [facility] Comment on above: Performed By: #### G IPANEL ####[facility] Syostkskyb620[address] [place], [place] [address]Dr. [facility]NL[facility] INFO SEE BELOW Normal The [facility] Comment on above: Result Comment: EAEC - Enteroaggregative E. Coli EPEC- Enteropathogenic E. Coli ETEC- Enterotoxigenic E. Coli lt/st STEC- Shigella-like toxin-producing E. Coli stx1/stx2 EIEC- Shigella/Enteroinvasive E. Coli Performed By: #### G IPANEL ####[facility] Vzjmgxxvsj5969 [place] [address]Dr. Lizandro Hemphill GIPNLHD PARASITES GI PANEL PARASITES Normal [facility] Comment on above: Performed By: #### G IPANEL ####[facility] Dsxlxmsdwt7809[address] [place], [place] [address]Dr. Shanikaannie Hemphill GIPNLHD VIRUS GI PANEL VIRUSES Normal The [facility] Comment on above: Performed By: #### G IPANEL ####[facility] Pqzvofeyac40[address] [place], [place] [address]Dr. Lizandro Hemphill Norovirus GI/GII Not detected Normal NOT DETECTED [facility] Comment on above: Performed By: #### G IPANEL ####[facility] Ytsbquehwh8[address] [place], [place] [address]Dr. Lizandro Hemphill P. Shigelloides Not detected Normal NOT DETECTED The [facility] Comment on above: Performed By: #### G IPANEL ####[facility] Yxxgxsdsqi4566[address] [place], [place] [address]Dr. Lizandro Hemphill Rotavirus A Not detected Normal NOT DETECTED [facility] Comment on above: Performed By: #### G IPANEL ####[facility] Lasgplwrxv5814[address] [place], [place] [address]Dr. Lizandro Hemphill Salmonella Not detected Normal NOT DETECTED The [facility] Comment on above: Performed By: #### G IPANEL ####[facility] Vlamiizvcs8387[address] [place], [place] [address]Dr. Lizandro Hemphill Sapovirus Not detected Normal NOT DETECTED [facility] Comment on above: Performed By: #### G IPANEL ####[facility] Ofsakiznlb9334[address] [place], [place] [address]Dr. Lizandro Hemphill STEC Not detected Normal NOT DETECTED [facility] Comment on above: Performed By: #### G IPANEL ####[facility] Nqggbmnjpw374[address] [place], [place] [address]Dr. Lizandro Hemphill Vibrio Not detected Normal NOT DETECTED [facility] Comment on above: Performed By: #### G IPANEL ####[facility] Hoeidxpdrd0057[address] [place], [place] [address]Dr. Lizandro Hemphill Vibrio Cholera Not detected Normal NOT DETECTED The [facility] Comment on above: Performed By: #### G IPANEL ####[facility] Pdccnndgyb[address] [place] [address]Dr. Lizandro Hemphill Y. Enterocolitica Not detected Normal NOT DETECTED [facility] Comment on above: Performed By: #### G IPANEL ####[facility] Magcxyrlzs569[address] [place], [place] [address]Dr. Lizandro Hemphill OCC BLD IMMUNOASSAYon 2022 OCCULT BLOOD Negative Normal NEGATIVE [facility] Comment on above: Performed By: #### O GREGORIO ####[facility] Bexfdgsxgx396[address] [place], [place] [address]DrCiro Hemphill PROF 14(COMP METB)on 023 Albumin [Mass/Vol] 2.7 g/dL Critically low 3.4-5.0 Th [facility] Comment on above: Performed By: #### C MP ####[facility] Oruiaejfnj8798[address] [place], [place] [address]Dr. Lizandro Hemphill Albumin/Globulin [Mass ratio] 1.0 {ratio} Normal [facility] Comment on above: Performed By: #### C MP ####[facility] Syhwnmyznz9480[address] [place], [place] [address]Dr. Lizandro Hemphill ALP [Catalytic activity/Vol] 93 U/L Normal 46-116 [facility] Comment on above: Performed By: #### C MP ####[facility] Dxszilvvik9579[address] [place], [place] [address]Dr. Lizandro Hemphill ALT [Catalytic activity/Vol] 38 U/L Normal 14-59 [facility] Comment on above: Performed By: #### C MP ####[facility] Uqibpyemnv529[address] [place], [place] [address]Dr. Lizandro Hemphill Anion gap [Moles/Vol] 10.9 mmol/L Normal [facility] Comment on above: Performed By: #### C MP ####[facility] Ucrlqkhmrg1436[address] [place], [place] [address]Dr. Lizandro Hemphill AST [Catalytic activity/Vol] 44 U/L Critically high 15-37 [facility] Comment on above: Performed By: #### C MP ####[facility] Xhuyumwmhg1040 [place] [address]Dr. Lizandro Hemphill Bilirubin [Mass/Vol] 0.2 mg/dL Normal 0.2-1.0 [facility] Comment on above: Performed By: #### C MP ####[facility] Vmjvlusugc4959 [place] [address]Dr. Lizandro Hemphill Calcium [Mass/Vol] 8.0 mg/dL Critically low 8.5-10.1 Th e [facility] Comment on above: Performed By: #### C MP ####[facility] Cnivoxqqpt785[address] [place], [place] [address]Dr. Lizandro Hemphill Chloride [Moles/Vol] 107 mmol/L Normal 98-107 [facility] Comment on above: Performed By: #### C MP ####[facility] Ctshiakgne6830[address] [place], [place] [address]Dr. Lizandro Hemphill CO2 [Moles/Vol] 27.4 mmol/L Normal 21.0-32.0 [facility] Comment on above: Performed By: #### C MP ####[facility] Fcdjqgyeub9694[address] [place], [place] [address]Dr. Lizandro Hemphill Creatinine [Mass/Vol] 0.90 mg/dL Normal 0.55-1.02 [facility] Comment on above: Performed By: #### C MP ####[facility] Bnxbgltljk2915[address] [place], [place] [address]Dr. Lizandro Hemphill EGFR-AF CHADIAN >60 Normal >=60 The [facility] Comment on above: Performed By: #### C MP ####[facility] Oumzzcezbf4208[address] [place], [place] [address]Dr. Lizandro Joby EGFR-NON AF CHADIAN >60 Normal >=60 [facility] Comment on above: Performed By: #### C MP ####[facility] Lcagsrqihr228[address] [place], [place] [address]Dr. Shanikaannie Joby Globulin (S) [Mass/Vol] 2.6 g/dL Normal [facility] Comment on above: Performed By: #### C MP ####[facility] Slzwihweex[address] [place] [address]Dr. Lizandro Hemphill Glucose [Mass/Vol] 131 mg/dL Critically high 74-106 [facility] Comment on above: Performed By: #### C MP ####[facility] Rqmqhsmfsx5011 [place] [address]Dr. Lizandro Hemphill Potassium [Moles/Vol] 3.3 mmol/L Critically low 3.5-5.1 [facility] Comment on above: Performed By: #### C MP ####[facility] Ltgdpnotrh9438 [place] [address]Dr. Lizandro Hemphill Protein [Mass/Vol] 5.3 g/dL Critically low 6.4-8.2 [facility] Comment on above: Performed By: #### C MP ####[facility] Nkrmqloarl8277[address] [place], [place] [address]Dr. Lizandro Hemphill Sodium [Moles/Vol] 142 mmol/L Normal 136-145 [facility] Comment on above: Performed By: #### C MP ####[facility] Jdrelrzqqq0769[address] [place], [place] [address]Dr. Lizandro Joby Urea nitrogen [Mass/Vol] 12.0 mg/dL Normal 7.0-18.0 [facility] Comment on above: Performed By: #### C MP ####[facility] Txxopwjbwz4406[address] [place], [place] [address]Dr. Shanikaannie Joby Urea nitrogen/Creatinin e [Mass ratio] 13.3 mg/mg Normal [facility] Comment on above: Performed By: #### C MP ####[facility] Hwccojhici5332[address] [place], [place] [address]Dr. Lizandro Joby PROTIMEon 05-28-2022 INR Coag (PPP) [Relative time] 1.10 {INR} Normal [facility] Comment on above: Performed By: #### P T ####[facility] Yidgouvees[address] [place] [address]Dr. Lizandro Hemphill INR GUIDELINES SEE BELOW Normal [facility] Comment on above: Result Comment: GUEVARA RED INR: 2.0 - 3.0 CONDITIONS NOT LISTED BELOW 2.5 - 3.5 FOR PROSTHETIC HEART VALVE REPLACEMENT 2.5 - 3.5 RECURRENT THROMBOSIS Performed By: #### P T ####[facility] Supeuqdrtk3357[address] [place], [place] [address]Dr. Lizandro Hemphill PT Coag (PPP) [Time] 11.6 s Normal 9.0-11.6 [facility] Comment on above: Performed By: #### P T ####[facility] Iynvitpdmt8367[address] [place], [place] [address]Dr. Lizandro Hemphill XR ABD FLAT UP_PA Allen 05-28 XR ABD FLAT UP_PA CH Normal [facility] CBC AUTO DIFFon 05-27-2022 BASO # 0.1 103/ul Normal 0.0-0.1 [facility] Comment on above: Performed By: #### C BC ####[facility] Yrjfdstjiq1009[address] [place], [place] [address]Dr. Lizandro Hemphill Basophils/100 WBC (Bld) 0.9 % Normal 0.2-2.0 [facility] Comment on above: Performed By: #### C BC ####[facility] Fnigavdvtf4139[address] [place], [place] [address]DrCiro Hemphill EO # 0.0 103/ul Normal 0.0-0.7 [facility] Comment on above: Performed By: #### C BC ####[facility] Rdtqiplyvn594[address] [place], [place] [address]DrCiro Hemphill Eosinophils/100 WBC (Bld) 0.8 % Critically low 0.9-7.0 [facility] Comment on above: Performed By: #### C BC ####[facility] Pbjomeidpd1954[address] [place], [place] [address]DrCiro Hemphill Erythrocyte distribution width (RBC) [Ratio] 18.6 % Critically high 11.0-15.0 [facility] Comment on above: Performed By: #### C BC ####[facility] Crbwyobpgw7868[address] [place], [place] [address]DrCiro Hemphill Hematocrit (Bld) [Volume fraction] 33.0 % Critically low 36.0-48.0 [facility] Comment on above: Performed By: #### C BC ####[facility] Bmsukdionv3505 [place] [address]DrCiro Hemphill Hemoglobin (Bld) [Mass/Vol] 10.8 g/dL Critically low 12.0-16.0 [facility] Comment on above: Performed By: #### C BC ####[facility] Axxecdzpwv3725 [place] [address]DrCiro Hemphill IG # 0.01 10e3/ul Normal 0.00-0.03 [facility] Comment on above: Performed By: #### C BC ####[facility] Kbgoscesug5136[address] [place], [place] [address]DrCiro Hemphill IG % 0.2 % Normal 0.0-0.5 [facility] Comment on above: Performed By: #### C BC ####[facility] Skzzdjeoeh947[address] [place], [place] [address]DrCiro Hemphill LYMPH # 0.9 103/ul Critically low 1.2-3.8 [facility] Comment on above: Performed By: #### C BC ####[facility] Xdtfzaklef5477[address] [place], [place] [address]DrCiro Hemphill Lymphocytes/100 WBC (Bld) 16.5 % Critically low 20.5-60.0 [facility] Comment on above: Performed By: #### C BC ####[facility] Swtnxdmojv1272 [place] [address]DrCiro Hemphill MANUAL DIFF REQ NO Normal [facility] Comment on above: Performed By: #### C BC ####[facility] Ifuwcoijmk3920 [place] [address]DrCiro Hemphill MCH (RBC) [Entitic mass] 27.3 pg Normal 26.7-34.0 [facility] Comment on above: Performed By: #### C BC ####[facility] Tafvekbgrd9857 [place] [address]DrCiro Hemphill MCHC (RBC) [Mass/Vol] 32.7 g/dL Normal 29.9-35.2 [facility] Comment on above: Performed By: #### C BC ####[facility] Kbnexiswki7933 [place] [address]DrCiro Hemphill MCV (RBC) [Entitic vol] 83.5 fL Normal 81.0-99.0 [facility] Comment on above: Performed By: #### C BC ####[facility] Hsylhvyxcf2763 [place] [address]DrCiro Hemphill MONO # 0.7 103/ul Normal 0.3-0.8 [facility] Comment on above: Performed By: #### C BC ####[facility] Zywxypumdl6954 [place] [address]DrCiro Hemphill Monocytes/100 WBC (Bld) 13.7 % Critically high 1.7-12.0 [facility] Comment on above: Performed By: #### C BC ####[facility] Lvnsqyjfze3824[address] [place], [place] [address]DrCiro Hemphill NEUT # 3.6 103/ul Normal 1.4-6.5 [facility] Comment on above: Performed By: #### C BC ####[facility] Erqwtumunm4859[address] [place], [place] [address]DrCiro Hemphill Neutrophils/100 WBC (Bld) 67.9 % Normal 43.0-75.0 [facility] Comment on above: Performed By: #### C BC ####[facility] Wrlagokltt3675[address] [place], [place] [address]DrCiro Hemphill Platelet mean volume (Bld) [Entitic vol] 10.4 fL Normal 9.5-13.5 [facility] Comment on above: Performed By: #### C BC ####[facility] Mhauahlqgv639[address] [place], [place] [address]DrCiro Hemphill PLT 270 103/ul Normal 150-450 [facility] Comment on above: Performed By: #### C BC ####[facility] Htjumvmcai97[address] [place], [place] [address]DrCiro Hemphill RBC 3.95 106/ul Critically low 4.20-5.40 [facility] Comment on above: Performed By: #### C BC ####[facility] Vflspirxjt1726 [place] [id number]. Lizandro Hemphill WBC 5.3 103/ul Normal 4.0-11.0 [facility] Comment on above: Performed By: #### C BC ####[facility] Fcsjmqtgkk2077 [place] [address]Dr. Lizandro Hemphill BASO # 0.1 103/ul Normal 0.0-0.1 [facility] Comment on above: Performed By: #### C BC ####[facility] Qgudygdzad6542 [place] [id number]. Lizandro Hemphill Basophils/100 WBC (Bld) 1.0 % Normal 0.2-2.0 [facility] Comment on above: Performed By: #### C BC ####[facility] Qtthmpkgwt7930[address] [place], [place] [address]Dr. Lizandro Hemphill EO # 0.1 103/ul Normal 0.0-0.7 [facility] Comment on above: Performed By: #### C BC ####[facility] Hcwpsrjull87[address] [place], [place] [address]Dr. Lizandro Hemphill Eosinophils/100 WBC (Bld) 1.0 % Normal 0.9-7.0 [facility] Comment on above: Performed By: #### C BC ####[facility] Yncexqgwyt038[address] [place], [place] [address]Dr. Lizandro Hemphill Erythrocyte distribution width (RBC) [Ratio] 20.0 % Critically high 11.0-15.0 [facility] Comment on above: Performed By: #### C BC ####[facility] Zqxndhsleg27[address] [place], [place] [address]Dr. Lizandro Hemphill Hematocrit (Bld) [Volume fraction] 24.0 % Critically low 36.0-48.0 [facility] Comment on above: Performed By: #### C BC ####[facility] Gdpjvmvuwb2510[address] [place], [place] [address]Dr. Lizandro Hemphill Hemoglobin (Bld) [Mass/Vol] 7.4 g/dL Critically low 12.0-16.0 [facility] Comment on above: Performed By: #### C BC ####[facility] Byhuhbvlua3836 [place] [address]DrCiro Hemphill IG # 0.01 10e3/ul Normal 0.00-0.03 [facility] Comment on above: Performed By: #### C BC ####[facility] Zvriztvvuw7167 [place] [address]DrCiro Hemphill IG % 0.2 % Normal 0.0-0.5 [facility] Comment on above: Performed By: #### C BC ####[facility] Dzaybnzzsm5709 [place] [address]DrCiro Hemphill LYMPH # 1.0 103/ul Critically low 1.2-3.8 [facility] Comment on above: Performed By: #### C BC ####[facility] Thlndombld4825 [place] [address]DrCiro Hemphill Lymphocytes/100 WBC (Bld) 20.3 % Critically low 20.5-60.0 [facility] Comment on above: Performed By: #### C BC ####[facility] Mgfdnbyivz9464 [place] [address]DrCiro Hemphill MANUAL DIFF REQ NO Normal [facility] Comment on above: Performed By: #### C BC ####[facility] Hqrngpebeg8767 [place] [address]DrCiro Hemphill MCH (RBC) [Entitic mass] 25.3 pg Critically low 26.7-34.0 [facility] Comment on above: Performed By: #### C BC ####[facility] Htujvsatwn3146 [place] [address]DrCiro Hemphill MCHC (RBC) [Mass/Vol] 30.8 g/dL Normal 29.9-35.2 [facility] Comment on above: Performed By: #### C BC ####[facility] Zetnwllmyt0248 [place] [address]DrCiro Hemphill MCV (RBC) [Entitic vol] 81.9 fL Normal 81.0-99.0 [facility] Comment on above: Performed By: #### C BC ####[facility] Duuoylpbze8260 [place] [address]DrCiro Lizandro Hemphill MONO # 0.6 103/ul Normal 0.3-0.8 [facility] Comment on above: Performed By: #### C BC ####[facility] Npcovglwqv2814 [place] [address]DrCiro Lizandro Joby Monocytes/100 WBC (Bld) 12.8 % Critically high 1.7-12.0 [facility] Comment on above: Performed By: #### C BC ####[facility] Qcyiafzkez146[address] [place], [place] [address]DrCiro Lizandro Hemphill NEUT # 3.2 103/ul Normal 1.4-6.5 [facility] Comment on above: Performed By: #### C BC ####[facility] Ruhsqveoai1724 [place] [address]Dr. Lizandro Joby Neutrophils/100 WBC (Bld) 64.7 % Normal 43.0-75.0 [facility] Comment on above: Performed By: #### C BC ####[facility] Hnivmalojf2201[address] [place], [place] [address]DrCiro Lizandro Joby Platelet mean volume (Bld) [Entitic vol] 10.2 fL Normal 9.5-13.5 [facility] Comment on above: Performed By: #### C BC ####[facility] Glzypgnhkw5475[address] [place], [place] [address]Dr. Lizandro Joby PLT 301 103/ul Normal 150-450 [facility] Comment on above: Performed By: #### C BC ####[facility] Cgutdatwlt2436 [place] [id number] Hemphill RBC 2.93 106/ul Critically low 4.20-5.40 [facility] Comment on above: Performed By: #### C BC ####[facility] Qvhicefwrt9410 [place] [id number] Hemphill WBC 4.9 103/ul Normal 4.0-11.0 [facility] Comment on above: Performed By: #### C BC ####[facility] Wrqbeacbdg1661 [place] [address]Dr. Lizandro Hemphill BASO # 0.0 103/ul Normal 0.0-0.1 [facility] Comment on above: Performed By: #### C BC ####[facility] Exzlzeflrw4674[address] [place], [place] [address]Dr. Lizandro Hemphill Basophils/100 WBC (Bld) 0.9 % Normal 0.2-2.0 [facility] Comment on above: Performed By: #### C BC ####[facility] Aawmfatpsw7904[address] [place], [place] [address]Dr. Lizandro Hemphill EO # 0.0 103/ul Normal 0.0-0.7 [facility] Comment on above: Performed By: #### C BC ####[facility] Fthegnazrj697[address] [place], [place] [address]Dr. Lizandro Hemphill Eosinophils/100 WBC (Bld) 0.7 % Critically low 0.9-7.0 [facility] Comment on above: Performed By: #### C BC ####[facility] Vukguqdjmm3195[address] [place], [place] [address]Dr. Lizandro Hemphill Erythrocyte distribution width (RBC) [Ratio] 20.1 % Critically high 11.0-15.0 [facility] Comment on above: Performed By: #### C BC ####[facility] Kcdrusvacm2987[address] [place], [place] [address]Dr. Lizandro Hemphill Hematocrit (Bld) [Volume fraction] 23.6 % Critically low 36.0-48.0 [facility] Comment on above: Performed By: #### C BC ####[facility] Vpyaciscil760[address] [place], [place] [address]Dr. Lizandro Hemphill Hemoglobin (Bld) [Mass/Vol] 7.3 g/dL Critically low 12.0-16.0 [facility] Comment on above: Result Comment: Flui ds given Performed By: #### C BC ####[facility] Eajsamqiov3695[address] [place], [place] [address]DrCiro Hemphill IG # 0.01 10e3/ul Normal 0.00-0.03 [facility] Comment on above: Performed By: #### C BC ####[facility] Fkkkpehdnk7130 [place] [address]DrCiro Hemphill IG % 0.2 % Normal 0.0-0.5 [facility] Comment on above: Performed By: #### C BC ####[facility] Yenynrwsfu3581 [place] [address]DrCiro Hemphill LYMPH # 1.0 103/ul Critically low 1.2-3.8 [facility] Comment on above: Performed By: #### C BC ####[facility] Fhwfspjuom1490 [place] [address]DrCiro Hemphill Lymphocytes/100 WBC (Bld) 22.8 % Normal 20.5-60.0 [facility] Comment on above: Performed By: #### C BC ####[facility] Lmdhfbkrak[address] [place], [place] [address]DrCiro Hemphill MANUAL DIFF REQ NO Normal [facility] Comment on above: Performed By: #### C BC ####[facility] Rdeumrfzxo2566 [place] [address]DrCiro Hemphill MCH (RBC) [Entitic mass] 25.3 pg Critically low 26.7-34.0 [facility] Comment on above: Performed By: #### C BC ####[facility] Fraaxusvyk[address] [place] [address]DrCiro Hemphill MCHC (RBC) [Mass/Vol] 30.9 g/dL Normal 29.9-35.2 [facility] Comment on above: Performed By: #### C BC ####[facility] Tmrnrptgpl[address] [place], [place] [address]DrCiro Hemphill MCV (RBC) [Entitic vol] 81.9 fL Normal 81.0-99.0 [facility] Comment on above: Performed By: #### C BC ####[facility] Imwggsqmzf[address] [place], [place] [address]DrCiro Hemphill MONO # 0.6 103/ul Normal 0.3-0.8 [facility] Comment on above: Performed By: #### C BC ####[facility] Xprsxqnnin8[address] [place] [address]Dr. Lizandro Hemphill Monocytes/100 WBC (Bld) 12.3 % Critically high 1.7-12.0 [facility] Comment on above: Performed By: #### C BC ####[facility] Vulzviqevb[address] [place] [address]Dr. Lizandro Hemphill NEUT # 2.9 103/ul Normal 1.4-6.5 [facility] Comment on above: Performed By: #### C BC ####[facility] Fdkjhsczim4[address] [place] [address]Dr. Lizandro Hemphill Neutrophils/100 WBC (Bld) 63.1 % Normal 43.0-75.0 [facility] Comment on above: Performed By: #### C BC ####[facility] Zmlxigpoon54[address] [place], [place] [address]Dr. Lizandro Hemphill Platelet mean volume (Bld) [Entitic vol] 10.6 fL Normal 9.5-13.5 [facility] Comment on above: Performed By: #### C BC ####[facility] Fxhezmomqf96[address] [place], [place] [address]Dr. Lizandro Hemphill PLT 305 103/ul Normal 150-450 [facility] Comment on above: Performed By: #### C BC ####[facility] Jqirccjryy4[address] [place], [place] [address]Dr. Lizandro Hemphill RBC 2.88 106/ul Critically low 4.20-5.40 [facility] Comment on above: Performed By: #### C BC ####[facility] Fizokxrxep027[address] [place], [place] [address]Dr. Lizandro Hemphill WBC 4.6 103/ul Normal 4.0-11.0 [facility] Comment on above: Performed By: #### C BC ####[facility] Rzbumlbeun22[address] [place], [place] [address]DrCiro Lizandro Joby PROF 14(COMP METB)on 023 Albumin [Mass/Vol] 2.7 g/dL Critically low 3.4-5.0 [facility] Comment on above: Performed By: #### C MP ####[facility] Beeusohwso65[address] [place] [address]Dr. Lizandro Hemphill Albumin/Globulin [Mass ratio] 1.0 {ratio} Normal [facility] Comment on above: Performed By: #### C MP ####[facility] Vwjrblnhng67[address] [place] [address]Dr. Lizandro Hemphill ALP [Catalytic activity/Vol] 75 U/L Normal 46-116 [facility] Comment on above: Performed By: #### C MP ####[facility] Kgrprfelqj35[address] [place], [place] [address]Dr. Lizandro Hemphill ALT [Catalytic activity/Vol] 11 U/L Critically low 14-59 [facility] Comment on above: Performed By: #### C MP ####[facility] Tocqjauhdr3527[address] [place], [place] [address]Dr. Lizandro Hemphill Anion gap [Moles/Vol] 13.9 mmol/L Normal [facility] Comment on above: Performed By: #### C MP ####[facility] Cwxbcrlvai9[address] [place], [place] [address]Dr. Lizandro Hemphill AST [Catalytic activity/Vol] 23 U/L Normal 15-37 [facility] Comment on above: Performed By: #### C MP ####[facility] Ekwmpmxnui3120[address] [place], [place] [address]Dr. Lizandro Hemphill Bilirubin [Mass/Vol] 0.5 mg/dL Normal 0.2-1.0 [facility] Comment on above: Performed By: #### C MP ####[facility] Znevvlaami6213[address] [place], [place] [address]Dr. Lizandro Hemphill Calcium [Mass/Vol] 8.3 mg/dL Critically low 8.5-10.1 Th [facility] Comment on above: Performed By: #### C MP ####[facility] Ijhjfzqujj2007[address] [place], [place] [address]Dr. Lizandro Hemphill Chloride [Moles/Vol] 107 mmol/L Normal 98-107 [facility] Comment on above: Performed By: #### C MP ####[facility] Ilmslxqhsm0334 [place] [address]Dr. Lizandro Hemphill CO2 [Moles/Vol] 26.4 mmol/L Normal 21.0-32.0 [facility] Comment on above: Performed By: #### C MP ####[facility] Hnsecagjro5506 [place] [address]Dr. Lizandro Hemphill Creatinine [Mass/Vol] 1.47 mg/dL Critically high 0.55-1.02 [facility] Comment on above: Performed By: #### C MP ####[facility] Bqstkchlgo7835[address] [place], [place] [address]Dr. Lizandro Hemphill EGFR-AF CHADIAN 44 mL/min/1.73m2 Critically low >=60 [facility] Comment on above: Performed By: #### C MP ####[facility] Bucnfcixjc6426[address] [place], [place] [address]Dr. Lizandro Hemphill EGFR-NON AF CHADIAN 36 mL/min/1.73m2 Critically low >=60 [facility] Comment on above: Performed By: #### C MP ####[facility] Ibanestkkr2950[address] [place], [place] [address]Dr. Lizandro Hemphill Globulin (S) [Mass/Vol] 2.8 g/dL Normal [facility] Comment on above: Performed By: #### C MP ####[facility] Vynyeyrgex5[address] [place] [address]Dr. Lizandro Hemphill Glucose [Mass/Vol] 122 mg/dL Critically high 74-106 [facility] Comment on above: Performed By: #### C MP ####[facility] Kztzybjadd3487[address] [place], [place] [address]Dr. Lizandro Hemphill Potassium [Moles/Vol] 3.3 mmol/L Critically low 3.5-5.1 [facility] Comment on above: Performed By: #### C MP ####[facility] Booitnhvzj364[address] [place], [place] [address]Dr. Lizandro Hemphill Protein [Mass/Vol] 5.5 g/dL Critically low 6.4-8.2 Th e [facility] Comment on above: Performed By: #### C MP ####[facility] Jvjtuaytst8814 [place] [address]Dr. Lizandro Hemphill Sodium [Moles/Vol] 144 mmol/L Normal 136-145 [facility] Comment on above: Performed By: #### C MP ####[facility] Wajqospmgd1006[address] [place], [place] [address]Dr. Lizandro Hemphill Urea nitrogen [Mass/Vol] 19.0 mg/dL Critically high 7.0-18.0 [facility] Comment on above: Performed By: #### C MP ####[facility] Zqztvpncfm1864[address] [place], [place] [address]Dr. Lizandro Hemphill Urea nitrogen/Creatinin e [Mass ratio] 12.9 mg/mg Normal [facility] Comment on above: Performed By: #### C MP ####[facility] Ujzxwamebg6[address] [place], [place] [address]Dr. Lizandro Hemphill PROTIMEon 05-27-2022 INR Coag (PPP) [Relative time] 1.18 {INR} Normal [facility] Comment on above: Performed By: #### P T ####[facility] Slppmrdhwe550[address] [place], [place] [address]Dr. Lizandro Hemphill INR GUIDELINES SEE BELOW Normal [facility] Comment on above: Result Comment: GUEVARA RED INR: 2.0 - 3.0 CONDITIONS NOT LISTED BELOW 2.5 - 3.5 FOR PROSTHETIC HEART VALVE REPLACEMENT 2.5 - 3.5 RECURRENT THROMBOSIS Performed By: #### P T ####[facility] Vcuayqrxwy1734[address] [place], [place] [address]Dr. Lizandro Hemphill PT Coag (PPP) [Time] 12.4 s Critically high 9.0-11.6 [facility] Comment on above: Performed By: #### P T ####[facility] Htpbzrjbzc6[address] [place], [place] [address]Dr. Lizandro Hemphill TYPE AND SCREENon 05-27-2022 TYPE AND SCREEN Negative Normal [facility] Comment on above: Performed By: #### T NS ####[facility] Cfmkgnsivg9958 [place] [address]Dr. Lizandro Joby CBC AUTO DIFFon 05-26-2022 BASO # 0.1 103/ul Normal 0.0-0.1 [facility] Comment on above: Performed By: #### C BC ####[facility] Uzkrwyvgew15[address] [place] [address]Dr. Shanikaannie Hemphill Basophils/100 WBC (Bld) 0.6 % Normal 0.2-2.0 [facility] Comment on above: Performed By: #### C BC ####[facility] Xvfridmaxb3525[address] [place], [place] [address]Dr. Shanikaannie Hemphill EO # 0.0 103/ul Normal 0.0-0.7 The [facility] Comment on above: Performed By: #### C BC ####[facility] Jjqtgwefif8128[address] [place], [place] [address]Dr. Shanikaannie Hemphill Eosinophils/100 WBC (Bld) 0.2 % Critically low 0.9-7.0 [facility] Comment on above: Performed By: #### C BC ####[facility] Swktbtzmjw969[address] [place], [place] [address]Dr. Lizandro Joby Erythrocyte distribution width (RBC) [Ratio] 20.1 % Critically high 11.0-15.0 [facility] Comment on above: Performed By: #### C BC ####[facility] Efksxghfth[address] [place], [place] [address]Dr. Lizandro Joby Hematocrit (Bld) [Volume fraction] 31.2 % Critically low 36.0-48.0 The [facility] Comment on above: Performed By: #### C BC ####[facility] Uhmztqsybs[address] [place], [place] [address]Dr. Shanikaannie Hemphill Hemoglobin (Bld) [Mass/Vol] 9.8 g/dL Critically low 12.0-16.0 [facility] Comment on above: Performed By: #### C BC ####[facility] Vcquwsvejf232[address] [place], [place] [address]Dr. Lizandro Hemphill IG # 0.03 10e3/ul Normal 0.00-0.03 [facility] Comment on above: Performed By: #### C BC ####[facility] Nszvchnkzc5455 [place] [address]DrCiro Lizandro Hemphill IG % 0.3 % Normal 0.0-0.5 [facility] Comment on above: Performed By: #### C BC ####[facility] Ymveitvkvy7048 [place] [address]DrCiro Lizandro Joby LYMPH # 1.4 103/ul Normal 1.2-3.8 [facility] Comment on above: Performed By: #### C BC ####[facility] Xctqlcjmob5431 [place] [address]DrCiro Shanikaannie Hemphill Lymphocytes/100 WBC (Bld) 15.1 % Critically low 20.5-60.0 [facility] Comment on above: Performed By: #### C BC ####[facility] Xfiwrptumh6[address] [place] [address]DrCiro Shanikaannie Hemphill MANUAL DIFF REQ NO Normal [facility] Comment on above: Performed By: #### C BC ####[facility] Viylonoqyb2213 [place] [address]DrCiro Lizandro Joby MCH (RBC) [Entitic mass] 25.1 pg Critically low 26.7-34.0 [facility] Comment on above: Performed By: #### C BC ####[facility] Qhnwevupmf4725 [place] [address]DrCiro Lizandro Joby MCHC (RBC) [Mass/Vol] 31.4 g/dL Normal 29.9-35.2 [facility] Comment on above: Performed By: #### C BC ####[facility] Rjmmuoeaqb7[address] [place] [id number] Lizandro Joby MCV (RBC) [Entitic vol] 79.8 fL Critically low 81.0-99.0 [facility] Comment on above: Performed By: #### C BC ####[facility] Ofkdjqahrw3650 [place] [address]DrCiro Hemphill MONO # 1.0 103/ul Critically high 0.3-0.8 [facility] Comment on above: Performed By: #### C BC ####[facility] Qvshjokxed3703 [place] [address]Dr. Lizandro Hemphill Monocytes/100 WBC (Bld) 11.5 % Normal 1.7-12.0 [facility] Comment on above: Performed By: #### C BC ####[facility] Xgwjlxudtr7989 [place] [address]Dr. Lizandro Hemphill NEUT # 6.5 103/ul Normal 1.4-6.5 [facility] Comment on above: Performed By: #### C BC ####[facility] Uqmqiiuxvz0805 [place] [address]Dr. Lizandro Hemphill Neutrophils/100 WBC (Bld) 72.3 % Normal 43.0-75.0 [facility] Comment on above: Performed By: #### C BC ####[facility] Jibgdcypqd7555 [place] [address]Dr. Lizandro Hemphill Platelet mean volume (Bld) [Entitic vol] 10.2 fL Normal 9.5-13.5 [facility] Comment on above: Performed By: #### C BC ####[facility] Myfomzsaqe27[address] [place] [address]Dr. Lizandro Hemphill PLT 395 103/ul Normal 150-450 [facility] Comment on above: Performed By: #### C BC ####[facility] Cspkyoljus4987 [place] [address]Dr. Lizandro Hemphill RBC 3.91 106/ul Critically low 4.20-5.40 [facility] Comment on above: Performed By: #### C BC ####[facility] Ckayclmziv7991 [place] [id number]. Lizandro Hemphill WBC 9.0 103/ul Normal 4.0-11.0 [facility] Comment on above: Performed By: #### C BC ####[facility] S[address]kvhfir[address] [place] [id number]. Lizandro Hemphill CPKon 05-26-2022 CK [Catalytic activity/Vol] 260 U/L Critically high 26-192 [facility] Comment on above: Performed By: #### L IPA, CMP, CK, HSTROPN ####[facility] Acglpzfokn[address] [place] [id number]. Lizandro Hemphill [facility]on SARS-CoV-2 (COVID-19) RNA VERITO+probe Ql (Unsp spec) Not detected Normal NOT DETECTED [facility] Comment on above: Result Comment: When diagnostic testing is negative, the possibility of a false negative should be considered inthe context of a patient's recent exposures and the presence of clinical signs and symptomsconsistent with SARS-CoV-2.This test is not yet approved or cleared by the [place] FDA. When there are no FDA-approved or cleared tests available, and other criteria are met, FDA can make tests available under an emergency access mechanism called an Emergency Use Authorization (EUA). The EUA for this test is supported by the Street Vendor of Health and Human Service's declaration that circumstances exist to justify the emergency use of in vitro diagnostics for the detection and/or diagnosis of the virus that causes COVID-19. This EUA will remain in effect for the duration of the COVID-19 declaration justifying emergency of IVDs, unless it is terminated or revoked by the FDA (after which the test may no longer be used). Performed By: #### C VDTBH ####[facility] Jcgxhjbxyw025[address] [place] [address]Dr. Lizandro Hemphill LIPASEon 05-26-2022 Lipase [Catalytic activity/Vol] 258.0 U/L Normal 73.0-393.0 [facility] Comment on above: Performed By: #### L IPA, CMP, CK, HSTROPN ####[facility] Sfcbknptyi1706 [place] [id number]. Lizandro Hemphill PH VENOUS BLOODon 05-26-2022 PCO2 VENOUS 28.2 mmHg Critically low 40.0-52.0 [facility] Comment on above: Performed By: #### P HVEN ####[facility] Atgsypztfw4[address] [place] [address]Dr. Yilan Hemphill pH VENOUS 7.554 Critically high 7.330-7.430 The [facility] Comment on above: Performed By: #### P HVEN ####[facility] Ajwhmtadib0721 [place] [address]Dr. Lizandro Hemphill PROF 14(COMP METB)on 023 Albumin [Mass/Vol] 3.8 g/dL Normal 3.4-5.0 [facility] Comment on above: Performed By: #### L IPA, CMP, CK, HSTROPN ####[facility] Yhvzwcgzfh8234 [place] [address]Dr. Lizandro Hemphill Albumin/Globulin [Mass ratio] 1.0 {ratio} Normal [facility] Comment on above: Performed By: #### L IPA, CMP, CK, HSTROPN ####[facility] Ssdgteuxpt[address] [place] [address]Dr. Lizandro Hemphill ALP [Catalytic activity/Vol] 115 U/L Normal 46-116 [facility] Comment on above: Performed By: #### L IPA, CMP, CK, HSTROPN ####[facility] Avgsskkvme85[address] [place] [address]Dr. Lizandro Hemphill ALT [Catalytic activity/Vol] 36 U/L Normal 14-59 [facility] Comment on above: Performed By: #### L IPA, CMP, CK, HSTROPN ####[facility] Dhracvtgdj9032 [place] [address]Dr. Lizandro Hemphill Anion gap [Moles/Vol] 15.9 mmol/L Normal [facility] Comment on above: Performed By: #### L IPA, CMP, CK, HSTROPN ####[facility] Ltvufsxhci9425 [place] [address]Dr. Lizandro Hemphlil AST [Catalytic activity/Vol] 46 U/L Critically high 15-37 The [facility] Comment on above: Performed By: #### L IPA, CMP, CK, HSTROPN ####[facility] Uyhooijthc7770 [place] [address]Dr. Lizandro Hemphill Bilirubin [Mass/Vol] 0.4 mg/dL Normal 0.2-1.0 [facility] Comment on above: Performed By: #### L IPA, CMP, CK, HSTROPN ####[facility] Fguaxodmwg7057 [place] [address]Dr. Lizandro Hemphill Calcium [Mass/Vol] 9.5 mg/dL Normal 8.5-10.1 [facility] Comment on above: Performed By: #### L IPA, CMP, CK, HSTROPN ####[facility] Rmnmkmdhye6[address] [place] [address]Dr. Lizandro Hemphill Chloride [Moles/Vol] 104 mmol/L Normal 98-107 [facility] Comment on above: Performed By: #### L IPA, CMP, CK, HSTROPN ####[facility] Qpilokdfia50[address] [place], [place] [address]Dr. Lizandro Hemphill CO2 [Moles/Vol] 24.7 mmol/L Normal 21.0-32.0 [facility] Comment on above: Performed By: #### L IPA, CMP, CK, HSTROPN ####[facility] Uikachfwic[address] [place], [place] [address]Dr. Lizandro Hemphill Creatinine [Mass/Vol] 1.12 mg/dL Critically high 0.55-1.02 [facility] Comment on above: Performed By: #### L IPA, CMP, CK, HSTROPN ####[facility] Zepuvkaihi30[address] [place] [address]Dr. Lizandro Hemphill EGFR-AF CHADIAN 60 mL/min/1.73m2 Normal >=60 [facility] Comment on above: Performed By: #### L IPA, CMP, CK, HSTROPN ####[facility] Zehpgjpfsr4476 [place] [address]Dr. Lizandro Hemphill EGFR-NON AF CHADIAN 50 mL/min/1.73m2 Critically low >=60 [facility] Comment on above: Performed By: #### L IPA, CMP, CK, HSTROPN ####[facility] Vtrkavlhaz2024 [place] [address]Dr. Lizandro Hemphill Globulin (S) [Mass/Vol] 3.8 g/dL Normal [facility] Comment on above: Performed By: #### L IPA, CMP, CK, HSTROPN ####[facility] Yzfnbaswog4843 [place] [address]Dr. Lizandro Hemphill Glucose [Mass/Vol] 92 mg/dL Normal 74-106 [facility] Comment on above: Performed By: #### L IPA, CMP, CK, HSTROPN ####[facility] Ijbarohdcp3179 [place] [address]Dr. Lizandro Hemphill Potassium [Moles/Vol] 3.6 mmol/L Normal 3.5-5.1 [facility] Comment on above: Performed By: #### L IPA, CMP, CK, HSTROPN ####[facility] Nvcljrvaze[address] [place], [place] [address]Dr. Lizandro Hemphill Protein [Mass/Vol] 7.6 g/dL Normal 6.4-8.2 [facility] Comment on above: Performed By: #### L IPA, CMP, CK, HSTROPN ####[facility] Dlmzqqyhzx6[address] [place], [place] [address]Dr. Lizandro Hemphill Sodium [Moles/Vol] 141 mmol/L Normal 136-145 [facility] Comment on above: Performed By: #### L IPA, CMP, CK, HSTROPN ####[facility] Sayrfohrqu[address]3 [place] [address]Dr. Lizandro Hemphill Urea nitrogen [Mass/Vol] 22.0 mg/dL Critically high 7.0-18.0 [facility] Comment on above: Performed By: #### L IPA, CMP, CK, HSTROPN ####[facility] Vdaihdpemp3096 [place] [address]Dr. Lizandro Hemphill Urea nitrogen/Creatinin e [Mass ratio] 19.6 mg/mg Normal [facility] Comment on above: Performed By: #### L IPA, CMP, CK, HSTROPN ####[facility] Irxhoemzba64[address] [place], [place] [address]Dr. Lizandro Hemphill TROPONIN, HIGH SENSITIVITYon 05-26-2022 HSTROP 8.9 pg/mL Normal 4.0-51.3 [facility] Comment on above: Result Comment: CUT- OFF POINTS HAVE BEEN ESTABLISHED BASED ON THE FOURTH UNIVERSAL DEFINITIONS OF MYOCARDIALINFARCTION. THE UPPER REFERENCE LIMIT (URL) OF TROPONIN, DEFINED THE 99TH PERCENTILE OFcTnI DISTRIBUTION IN A REFERENCE POPULATION, HAS BEEN CONFIRMED THE DECISION THRESHOLDFOR [place] DIAGNOSIS. Performed By: #### L IPA, CMP, CK, HSTROPN ####[facility] Kmeacsjgcw[address] [place] [address]Dr. Lizandro Hemphill XR CHEST 1 Von 05-26-2022 XR CHEST 1 V Normal [facility] TROPONIN, HIGH SENSITIVITYon 05-23-2022 HSTROP 9.8 pg/mL Normal 4.0-51.3 [facility] Comment on above: Result Comment: CUT- OFF POINTS HAVE BEEN ESTABLISHED BASED ON THE FOURTH UNIVERSAL DEFINITIONS OF MYOCARDIALINFARCTION. THE UPPER REFERENCE LIMIT (URL) OF TROPONIN, DEFINED THE 99TH PERCENTILE OFcTnI DISTRIBUTION IN A REFERENCE POPULATION, HAS BEEN CONFIRMED THE DECISION THRESHOLDFOR [place] DIAGNOSIS. Performed By: #### H STROPN ####[facility] Znfgcjgtwf[address] [place] [address]Dr. Lizandro Hemphill CBC AUTO DIFFon 05-22-2022 BASO # 0.1 103/ul Normal 0.0-0.1 [facility] Comment on above: Performed By: #### C BC ####[facility] Jcmktbvudh36[address] [place] [address]Dr. Shanikaannie Hemphill Basophils/100 WBC (Bld) 0.9 % Normal 0.2-2.0 [facility] Comment on above: Performed By: #### C BC ####[facility] Vhovutfoas[address] [place] [id number]. Lizandro Hemphill EO # 0.0 103/ul Normal 0.0-0.7 [facility] Comment on above: Performed By: #### C BC ####[facility] Dhczydyzke4[address] [place] [address]Dr. Lizandro Joby Eosinophils/100 WBC (Bld) 0.1 % Critically low 0.9-7.0 [facility] Comment on above: Performed By: #### C BC ####[facility] Xhfslmohit[address] [place] [address]Dr. Lizandro Hemphill Erythrocyte distribution width (RBC) [Ratio] 19.3 % Critically high 11.0-15.0 [facility] Comment on above: Performed By: #### C BC ####[facility] Auewffjhbj5[address] [place] [address]Dr. Lizandro Hemphill Hematocrit (Bld) [Volume fraction] 31.1 % Critically low 36.0-48.0 [facility] Comment on above: Performed By: #### C BC ####[facility] R[address]fqhffgj[address] [place], [place] [address]Dr. Lizandro Hemphill Hemoglobin (Bld) [Mass/Vol] 9.8 g/dL Critically low 12.0-16.0 [facility] Comment on above: Performed By: #### C BC ####[facility] Wrpbuqihbq[address] [place], [place] [address]DrCiro Lizandro Hemphill IG # 0.04 10e3/ul Critically high 0.00-0.03 [facility] Comment on above: Performed By: #### C BC ####[facility] Nphvtgwyty[address] [place], [place] [address]DrCiro Lizandro Hemphill IG % 0.4 % Normal 0.0-0.5 [facility] Comment on above: Performed By: #### C BC ####[facility] Lvtbkzkiys[address] [place], [place] [address]DrCiro Lizandro Hemphill LYMPH # 1.5 103/ul Normal 1.2-3.8 [facility] Comment on above: Performed By: #### C BC ####[facility] Zmdktjkzuw[address] [place], [place] [address]DrCiro Lizandro Hemphill Lymphocytes/100 WBC (Bld) 15.1 % Critically low 20.5-60.0 [facility] Comment on above: Performed By: #### C BC ####[facility] Owhrgowjgu[address] [place], [place] [address]DrCiro Lizandro Joby MANUAL DIFF REQ NO Normal [facility] Comment on above: Performed By: #### C BC ####[facility] Hveoxkvitf0266 [place] [address]Dr. Lizandro Hemphill MCH (RBC) [Entitic mass] 24.7 pg Critically low 26.7-34.0 [facility] Comment on above: Performed By: #### C BC ####[facility] Kfxpyfppce9326 [place] [address]Dr. Lizandro Hemphill MCHC (RBC) [Mass/Vol] 31.5 g/dL Normal 29.9-35.2 [facility] Comment on above: Performed By: #### C BC ####[facility] Grcptywszx3786 [place] [address]DrCiro Hemphill MCV (RBC) [Entitic vol] 78.3 fL Critically low 81.0-99.0 [facility] Comment on above: Performed By: #### C BC ####[facility] Tcgkptiwuk[address] [place], [place] [address]DrCiro Hemphill MONO # 1.1 103/ul Critically high 0.3-0.8 [facility] Comment on above: Performed By: #### C BC ####[facility] Xgzfvrqtwn[address] [place], [place] [address]DrCiro Hemphill Monocytes/100 WBC (Bld) 11.4 % Normal 1.7-12.0 [facility] Comment on above: Performed By: #### C BC ####[facility] Xjzutkhvtu[address] [place], [place] [address]DrCiro Hemphill NEUT # 7.1 103/ul Critically high 1.4-6.5 [facility] Comment on above: Performed By: #### C BC ####[facility] Rnyxorteqn14[address] [place], [place] [address]DrCiro Hemphill Neutrophils/100 WBC (Bld) 72.1 % Normal 43.0-75.0 [facility] Comment on above: Performed By: #### C BC ####[facility] Snjchtdjks[address] [place], [place] [address]DrCiro Hemphill Platelet mean volume (Bld) [Entitic vol] 10.3 fL Normal 9.5-13.5 [facility] Comment on above: Performed By: #### C BC ####[facility] Mvofoamtuj16[address] [place] [address]Dr. Lizandro Hemphill PLT 491 103/ul Critically high 150-450 [facility] Comment on above: Performed By: #### C BC ####[facility] Bvhxrlyykv5[address] [place] [id number]. Lizandro Hemphill RBC 3.97 106/ul Critically low 4.20-5.40 [facility] Comment on above: Performed By: #### C BC ####[facility] Lylyecairh38[address] [place] [address]Dr. Lizandro Hemphill WBC 9.8 103/ul Normal 4.0-11.0 [facility] Comment on above: Performed By: #### C BC ####[facility] Gnwkkzfhfe2732 [place] [address]Dr. Lizandro Hemphill D-DIMERon 05-22-2022 D-DIMER 0.37 mg/L FEU Normal <=0.59 [facility] Comment on above: Performed By: #### D DIM ####[facility] Newfhejxzk76[address] [place] [address]Dr. Lizandro Hemphill D-DIMER COMMENTS SEE BELOW Normal [facility] Comment on above: Result Comment: Incr eases in D-Dimer concentration observed with thromboembolic events can be variable due to localization, size, and age of the thrombus. Therefore, a thromboembolic event cannot be diagnosed with certainty on the basis of the reference range. D-Dimers may also be elevated for a variety of disorders including: advanced age, , coronary disease, cancer, liver disease, infection, inflammation, hematoma, DIC, trauma, post-surgery, diabetes, thrombolytic or anticoagulant therapy, stress, and generalized hospitalization. Performed By: #### D DIM ####[facility] Ojoglzvdaj14[address] [place] [address]Dr. Lizandro Hemphill LACTATE/LACTIC ACIDon 2022 Lactate [Moles/Vol] 2.7 mmol/L Critically high 0.4-1.9 [facility] Comment on above: Performed By: #### L ACT ####[facility] Mvldfkyquy9[address] [place] [address]Dr. Lizandro Hemphill PROF 14(COMP METB)on 023 Albumin [Mass/Vol] 4.1 g/dL Normal 3.4-5.0 [facility] Comment on above: Performed By: #### C MARGARITA HSTROPN ####[facility] Irrxgrdlns30[address] [place] [address]Dr. Lizandro Hemphill Albumin/Globulin [Mass ratio] 1.1 {ratio} Normal [facility] Comment on above: Performed By: #### C MARGARITA HSTROPN ####[facility] Emqjlvwbtp[address] [place], [place] [address]Dr. Lizandro Hemphill ALP [Catalytic activity/Vol] 142 U/L Critically high 46-116 [facility] Comment on above: Performed By: #### C MARGARITA HSTROPN ####[facility] Uvzdfwucaj[address] [place], [place] [address]Dr. Lizandro Hemphill ALT [Catalytic activity/Vol] 37 U/L Normal 14-59 [facility] Comment on above: Performed By: #### C MARGARITA HSTROPN ####[facility] Wobfgdxwqe635[address] [place], [place] [address]Dr. Lizandro Hemphill Anion gap [Moles/Vol] 20.2 mmol/L Normal [facility] Comment on above: Performed By: #### C MARGARITA HSTROPN ####[facility] Ayzrqzhukg90[address] [place] [address]Dr. Lizandro Hemphill AST [Catalytic activity/Vol] 38 U/L Critically high 15-37 [facility] Comment on above: Performed By: #### C MARGARITA HSTROPN ####[facility] Rezpmeeuze[address] [place], [place] [address]Dr. Lizandro Hemphill Bilirubin [Mass/Vol] 0.5 mg/dL Normal 0.2-1.0 [facility] Comment on above: Performed By: #### C MARGARITA HSTROPN ####[facility] Aidxbqwmde1631 [place] [address]Dr. Lizandro Hemphill Calcium [Mass/Vol] 10.0 mg/dL Normal 8.5-10.1 [facility] Comment on above: Performed By: #### C MP, HSTROPN ####[facility] Nwpzwzwegw[address]109 [place] [address]Dr. Lizandro Hemphill Chloride [Moles/Vol] 99 mmol/L Normal 98-107 [facility] Comment on above: Performed By: #### C MP, HSTROPN ####[facility] Hpyzpvnhkp6768 [place] [address]Dr. Lizandro Hemphill CO2 [Moles/Vol] 21.8 mmol/L Normal 21.0-32.0 [facility] Comment on above: Performed By: #### C MP, HSTROPN ####[facility] Hvuidtwhha[address] [place], [place] [address]Dr. Lizandro Hemphill Creatinine [Mass/Vol] 1.19 mg/dL Critically high 0.55-1.02 [facility] Comment on above: Performed By: #### C MP, HSTROPN ####[facility] Oceerqsynl8326 [place] [address]Dr. Lizandro Hemphill EGFR-AF CHADIAN 56 mL/min/1.73m2 Critically low >=60 [facility] Comment on above: Performed By: #### C MP, HSTROPN ####[facility] Klgpbnwqit49[address] [place], [place] [address]Dr. Lizandro Hemphill EGFR-NON AF CHADIAN 46 mL/min/1.73m2 Critically low >=60 [facility] Comment on above: Performed By: #### C MP, HSTROPN ####[facility] Xtwfumreen1771 [place] [address]Dr. Lizandro Hemphill Globulin (S) [Mass/Vol] 3.8 g/dL Normal [facility] Comment on above: Performed By: #### C MP, HSTROPN ####[facility] Wzdkdndtyg6[address] [place] [address]Dr. Lizandro Hemphill Glucose [Mass/Vol] 107 mg/dL Critically high 74-106 [facility] Comment on above: Performed By: #### C MARGARITA, HSTROPN ####[facility] Qihajgvumf1267 [place] [address]Dr. Lizandro Hemphill Potassium [Moles/Vol] 4.0 mmol/L Normal 3.5-5.1 [facility] Comment on above: Performed By: #### C MARGARITA, HSTROPN ####[facility] Zznnleuduv8374 [place] [address]Dr. Lizandro Hemphill Protein [Mass/Vol] 7.9 g/dL Normal 6.4-8.2 [facility] Comment on above: Performed By: #### C MARGARITA, HSTROPN ####[facility] Bcnfvueljp8[address] [place], [place] [address]Dr. Lizandro Hemphill Sodium [Moles/Vol] 137 mmol/L Normal 136-145 [facility] Comment on above: Performed By: #### C MARGARITA, HSTROPN ####[facility] Mnfskxtfvq7[address] [place], [place] [address]Dr. Lizandro Hemphill Urea nitrogen [Mass/Vol] 20.0 mg/dL Critically high 7.0-18.0 [facility] Comment on above: Performed By: #### C MARGARITA, HSTROPN ####[facility] Otcnccvmyh12[address] [place], [place] [address]Dr. Lizandro Hemphill Urea nitrogen/Creatinin e [Mass ratio] 16.8 mg/mg Normal [facility] Comment on above: Performed By: #### C MARGARITA, HSTROPN ####[facility] Nrmvfihiwe02[address] [place], [place] [address]Dr. Lizandro Hemphill TROPONIN, HIGH SENSITIVITYon 05-22-2022 HSTROP 10.2 pg/mL Normal 4.0-51.3 [facility] Comment on above: Result Comment: CUT- OFF POINTS HAVE BEEN ESTABLISHED BASED ON THE FOURTH UNIVERSAL DEFINITIONS OF MYOCARDIALINFARCTION. THE UPPER REFERENCE LIMIT (URL) OF TROPONIN, DEFINED THE 99TH PERCENTILE OFcTnI DISTRIBUTION IN A REFERENCE POPULATION, HAS BEEN CONFIRMED THE DECISION THRESHOLDFOR [place] DIAGNOSIS. Performed By: #### C MP, HSTROPN ####[facility] Btuygagguu[address] [place] [address]Dr. Lizandro Hemphill XR CHEST 1 Von 05-22-2022 XR CHEST 1 V Normal [facility] CBC AUTO DIFFon 05-06-2022 BASO # 0.1 103/ul Normal 0.0-0.1 [facility] Comment on above: Performed By: #### C BC ####[facility] Zewflsrefs4[address] [place] [address]Dr. Lizandro Joby Basophils/100 WBC (Bld) 0.9 % Normal 0.2-2.0 [facility] Comment on above: Performed By: #### C BC ####[facility] Vvwzhrqltg[address] [place], [place] [address]Dr. Lizandro Joby EO # 0.1 103/ul Normal 0.0-0.7 [facility] Comment on above: Performed By: #### C BC ####[facility] Ueyfpcyyxa512[address] [place], [place] [address]Dr. Lizandro Joyb Eosinophils/100 WBC (Bld) 0.9 % Normal 0.9-7.0 [facility] Comment on above: Performed By: #### C BC ####[facility] Rccicqncal[address] [place], [place] [address]Dr. Lizandro Hemphill Erythrocyte distribution width (RBC) [Ratio] 18.9 % Critically high 11.0-15.0 [facility] Comment on above: Performed By: #### C BC ####[facility] Bywdpjdluz[address] [place], [place] [address]Dr. Lizandro Hemphill Hematocrit (Bld) [Volume fraction] 27.0 % Critically low 36.0-48.0 [facility] Comment on above: Performed By: #### C BC ####[facility] Iqzepthynj[address] [place], [place] [address]Dr. Lizandro Hemphill Hemoglobin (Bld) [Mass/Vol] 8.2 g/dL Critically low 12.0-16.0 [facility] Comment on above: Performed By: #### C BC ####[facility] Dkwulmdnrh[address] [place], [place] [address]DrCiro Vossannie Joby IG # 0.01 10e3/ul Normal 0.00-0.03 [facility] Comment on above: Performed By: #### C BC ####[facility] Rwxbmytkgz2636 [place] [address]DrCiro Lizandro Joby IG % 0.2 % Normal 0.0-0.5 [facility] Comment on above: Performed By: #### C BC ####[facility] Ilxmaqowtj6675 [place] [address]DrCiro Hemphill LYMPH # 1.1 103/ul Critically low 1.2-3.8 [facility] Comment on above: Performed By: #### C BC ####[facility] Fdshhisiyb0822 [place] [address]DrCiro Hemphill Lymphocytes/100 WBC (Bld) 17.0 % Critically low 20.5-60.0 [facility] Comment on above: Performed By: #### C BC ####[facility] Vjoegvonsc[address] [place] [address]DrCiro Shanikaannie Hemphill MANUAL DIFF REQ NO Normal [facility] Comment on above: Performed By: #### C BC ####[facility] Ycvmkczpnv6859 [place] [address]DrCiro Lizandro Joby MCH (RBC) [Entitic mass] 25.8 pg Critically low 26.7-34.0 [facility] Comment on above: Performed By: #### C BC ####[facility] Lceqyudilp6914 [place] [address]DrCiro Lizandro Joby MCHC (RBC) [Mass/Vol] 30.4 g/dL Normal 29.9-35.2 [facility] Comment on above: Performed By: #### C BC ####[facility] Wwfhomvdcd2295 [place] [address]DrCiro Hemphill MCV (RBC) [Entitic vol] 84.9 fL Normal 81.0-99.0 [facility] Comment on above: Performed By: #### C BC ####[facility] Wphkrvmdim7941 [place] [address]Dr. Lizandro Hemphill MONO # 0.7 103/ul Normal 0.3-0.8 [facility] Comment on above: Performed By: #### C BC ####[facility] Whteeyxpnp7319 [place] [address]Dr. Lizandro Hemphill Monocytes/100 WBC (Bld) 11.6 % Normal 1.7-12.0 [facility] Comment on above: Performed By: #### C BC ####[facility] Genyvwsfbe0730 [place] [address]Dr. Lizandro Hemphill NEUT # 4.4 103/ul Normal 1.4-6.5 [facility] Comment on above: Performed By: #### C BC ####[facility] Doxairypcb2465 [place] [address]Dr. Lizandro Hemphill Neutrophils/100 WBC (Bld) 69.4 % Normal 43.0-75.0 [facility] Comment on above: Performed By: #### C BC ####[facility] Wuzgdjprzr7252 [place] [address]Dr. Lizandro Hemphill Platelet mean volume (Bld) [Entitic vol] 10.8 fL Normal 9.5-13.5 [facility] Comment on above: Performed By: #### C BC ####[facility] Xkuaibezaj3581 [place] [address]Dr. Lizandro Hemphill PLT 291 103/ul Normal 150-450 [facility] Comment on above: Performed By: #### C BC ####[facility] Yeittftgmo8779 [place] [address]Dr. Lizandro Hemphill RBC 3.18 106/ul Critically low 4.20-5.40 [facility] Comment on above: Performed By: #### C BC ####[facility] Mhlgwfthgk5033 [place] [address]Dr. Lizandro Joby WBC 6.4 103/ul Normal 4.0-11.0 [facility] Comment on above: Performed By: #### C BC ####[facility] Rqbrzvfsuo1908 [place] [address]DrCiro Hemphill PROF 14(COMP METB)on 023 Albumin [Mass/Vol] 2.4 g/dL Critically low 3.4-5.0 [facility] Comment on above: Performed By: #### C MP ####[facility] Grophdhmij100[address] [place], [place] [address]Dr. Lizandro Hemphill Albumin/Globulin [Mass ratio] 0.8 {ratio} Normal [facility] Comment on above: Performed By: #### C MP ####[facility] Zrosaubszr782[address] [place], [place] [address]Dr. Lizandro Hmephill ALP [Catalytic activity/Vol] 121 U/L Critically high 46-116 [facility] Comment on above: Performed By: #### C MP ####[facility] Zceehlhepp[address] [place], [place] [address]Dr. Lizandro Hemphill ALT [Catalytic activity/Vol] 17 U/L Normal 14-59 [facility] Comment on above: Performed By: #### C MP ####[facility] Csaqfyihse3[address] [place], [place] [address]Dr. Lizandro Hemphill Anion gap [Moles/Vol] 10.9 mmol/L Normal [facility] Comment on above: Performed By: #### C MP ####[facility] Hwqjdwrpgc[address] [place], [place] [address]Dr. Lizandro Hemphill AST [Catalytic activity/Vol] 23 U/L Normal 15-37 [facility] Comment on above: Performed By: #### C MP ####[facility] Cgfcqxwzon55[address] [place], [place] [address]Dr. Lizandro Hemphill Bilirubin [Mass/Vol] 0.2 mg/dL Normal 0.2-1.0 [facility] Comment on above: Performed By: #### C MP ####[facility] Wuuujokjzz35[address] [place], [place] [address]Dr. Lizandro Hemphill Calcium [Mass/Vol] 8.3 mg/dL Critically low 8.5-10.1 [facility] Comment on above: Performed By: #### C MP ####[facility] Jcsykloglq1825[address] [place], [place] [address]Dr. Lizandro Hemphill Chloride [Moles/Vol] 106 mmol/L Normal 98-107 [facility] Comment on above: Performed By: #### C MP ####[facility] Omtgsyjcox4163 [place] [address]Dr. Lizandro Hemphill CO2 [Moles/Vol] 26.7 mmol/L Normal 21.0-32.0 [facility] Comment on above: Performed By: #### C MP ####[facility] Sbupwrtorv6822 [place] [address]Dr. Lizandro Hemphill Creatinine [Mass/Vol] 0.88 mg/dL Normal 0.55-1.02 [facility] Comment on above: Performed By: #### C MP ####[facility] Zdozqzoazh4[address] [place], [place] [address]Dr. Lizandro Joby EGFR-AF CHADIAN >60 Normal >=60 [facility] Comment on above: Performed By: #### C MP ####[facility] Mdybmorcjc01[address] [place], [place] [address]Dr. Lizandro Joby EGFR-NON AF CHADIAN >60 Normal >=60 [facility] Comment on above: Performed By: #### C MP ####[facility] Dhcotsmspn38[address] [place], [place] [address]Dr. Lizandro Joby Globulin (S) [Mass/Vol] 3.0 g/dL Normal [facility] Comment on above: Performed By: #### C MP ####[facility] Ppqyebvdlk9714 [place] [address]Dr. Lizandro Joby Glucose [Mass/Vol] 101 mg/dL Normal 74-106 [facility] Comment on above: Performed By: #### C MP ####[facility] Kzyytzcmha[address] [id number]. Lizandro Joby Potassium [Moles/Vol] 3.6 mmol/L Normal 3.5-5.1 [facility] Comment on above: Performed By: #### C MP ####[facility] Wgjsanehow[address] [place] [address]Dr. Lizandro Hemphill Protein [Mass/Vol] 5.4 g/dL Critically low 6.4-8.2 Th e [facility] Comment on above: Performed By: #### C MP ####[facility] Onrybeybhd[address] [place] [address]Dr. Lizandro Hemphill Sodium [Moles/Vol] 140 mmol/L Normal 136-145 [facility] Comment on above: Performed By: #### C MP ####[facility] Epxzolxdsu2[address] [place] [address]Dr. Lizandro Hemphill Urea nitrogen [Mass/Vol] 11.0 mg/dL Normal 7.0-18.0 [facility] Comment on above: Performed By: #### C MP ####[facility] Xgvgtqfnuk[address] [place], [place] [address]Dr. Lizandro Hemphill Urea nitrogen/Creatinin e [Mass ratio] 12.5 mg/mg Normal [facility] Comment on above: Performed By: #### C MP ####[facility] Hktbwmsxag[address] [place], [place] [address]Dr. Lizandro Hemphill PROTIMEon 05-06-2022 INR Coag (PPP) [Relative time] 1.49 {INR} Normal [facility] Comment on above: Performed By: #### P T ####[facility] Cmddkjybrn[address] [place], [place] [address]Dr. Lizandro Hemphill INR GUIDELINES SEE BELOW Normal [facility] Comment on above: Result Comment: GUEVARA RED INR: 2.0 - 3.0 CONDITIONS NOT LISTED BELOW 2.5 - 3.5 FOR PROSTHETIC HEART VALVE REPLACEMENT 2.5 - 3.5 RECURRENT THROMBOSIS Performed By: #### P T ####[facility] Yormoimman[address] [place], [place] [address]Dr. Lizandro Hemphill PT Coag (PPP) [Time] 15.4 s Critically high 9.0-11.6 [facility] Comment on above: Performed By: #### P T ####[facility] Jizxrrgxyw90[address] [place], [place] [address]Dr. Lizandro Hemphill CBC AUTO DIFFon 05-05-2022 BASO # 0.0 103/ul Normal 0.0-0.1 [facility] Comment on above: Performed By: #### C BC ####[facility] Vfqgnxwkut5[address] [place] [id number]. Lizandro Hemphill Basophils/100 WBC (Bld) 0.6 % Normal 0.2-2.0 The [facility] Comment on above: Performed By: #### C BC ####[facility] Jtsxebyaro5[address] [place] [id number]. Lizandro Hemphill EO # 0.0 103/ul Normal 0.0-0.7 The [facility] Comment on above: Performed By: #### C BC ####[facility] Osextvdslf17[address] [place] [id number]. Lizandro Hemphill Eosinophils/100 WBC (Bld) 0.6 % Critically low 0.9-7.0 [facility] Comment on above: Performed By: #### C BC ####[facility] Ztsvsxzvnm7[address] [place], [place] [address]Dr. Lizandro Hemphill Erythrocyte distribution width (RBC) [Ratio] 19.1 % Critically high 11.0-15.0 [facility] Comment on above: Performed By: #### C BC ####[facility] Wmkzaprwdq9[address] [place], [place] [address]Dr. Lizandro Hemphill Hematocrit (Bld) [Volume fraction] 29.6 % Critically low 36.0-48.0 [facility] Comment on above: Performed By: #### C BC ####[facility] Uhnzhridjw[address] [place], [place] [id number]. Lizandro Hemphill Hemoglobin (Bld) [Mass/Vol] 9.1 g/dL Critically low 12.0-16.0 [facility] Comment on above: Performed By: #### C BC ####[facility] Hbopgodvvp7301[address] [place], [place] [address]Dr. Lizandro Hemphill IG # 0.04 10e3/ul Critically high 0.00-0.03 [facility] Comment on above: Performed By: #### C BC ####[facility] Exszfctvsg27[address] [place], [place] [id number]. Lizandro Hemphill IG % 0.6 % Critically high 0.0-0.5 [facility] Comment on above: Performed By: #### C BC ####[facility] Qknhpppcef90[address] [place] [id number]. Lizandro Hemphill LYMPH # 1.1 103/ul Critically low 1.2-3.8 [facility] Comment on above: Performed By: #### C BC ####[facility] Lzmneaayqc549[address] [place] [id number]. Lizandro Hemphill Lymphocytes/100 WBC (Bld) 17.8 % Critically low 20.5-60.0 [facility] Comment on above: Performed By: #### C BC ####[facility] Rxxjflymhx58[address] [place] [id number]. Lizandro Hemphill MANUAL DIFF REQ NO Normal [facility] Comment on above: Performed By: #### C BC ####[facility] Vroixjixws9[address] [place] [phone]. Lizandro Hemphill MCH (RBC) [Entitic mass] 26.7 pg Normal 26.7-34.0 [facility] Comment on above: Performed By: #### C BC ####[facility] Fbblzmxgrf66[address] [place] [phone]. Lizandro Hemphill MCHC (RBC) [Mass/Vol] 30.7 g/dL Normal 29.9-35.2 The [facility] Comment on above: Performed By: #### C BC ####[facility] Oshhndcuxl[address] [place] [phone]. Lizandro Hemphill MCV (RBC) [Entitic vol] 86.8 fL Normal 81.0-99.0 The [facility] Comment on above: Performed By: #### C BC ####[facility] Uevpknydvy8[address] [place] [id number]. Lizandro Hemphill MONO # 0.8 103/ul Normal 0.3-0.8 The [facility] Comment on above: Performed By: #### C BC ####[facility] Smxujobcec59[address] [place] [id number]. Lizandro Hemphill Monocytes/100 WBC (Bld) 12.2 % Critically high 1.7-12.0 The [facility] Comment on above: Performed By: #### C BC ####[facility] Vqtkkfqxrv8426 [place] [phone]. Lizandro Hemphill NEUT # 4.3 103/ul Normal 1.4-6.5 [facility] Comment on above: Performed By: #### C BC ####[facility] Eifdiqzyvb6024 [place] [phone]. Lizandro Hemphill Neutrophils/100 WBC (Bld) 68.2 % Normal 43.0-75.0 [facility] Comment on above: Performed By: #### C BC ####[facility] Usxepnbthu37[address] [place] [phone]. Lizandro Hemphill Platelet mean volume (Bld) [Entitic vol] 10.2 fL Normal 9.5-13.5 [facility] Comment on above: Performed By: #### C BC ####[facility] Timcanoofl1781 [place] [phone]. Lizandro Hemphill PLT 305 103/ul Normal 150-450 [facility] Comment on above: Performed By: #### C BC ####[facility] Otdmljfxgv2670 [place] [phone]. Lizandro Hemphill RBC 3.41 106/ul Critically low 4.20-5.40 [facility] Comment on above: Performed By: #### C BC ####[facility] Ziccvtgfxr0943 [place] [phone]. Lizandro Hemphill WBC 6.3 103/ul Normal 4.0-11.0 [facility] Comment on above: Performed By: #### C BC ####[facility] Pjhrhpfxec[address] [place] [phone] Hemphill PROF 14(COMP METB)on 023 Albumin [Mass/Vol] 2.3 g/dL Critically low 3.4-5.0 [facility] Comment on above: Performed By: #### C MP ####[facility] Irrllwprzl74[address] [place] [phone] Hemphill Albumin/Globulin [Mass ratio] 0.8 {ratio} Normal [facility] Comment on above: Performed By: #### C MP ####[facility] Ahxiyotxdv6[address] [place] [address]Dr. Lizandro Hemphill ALP [Catalytic activity/Vol] 121 U/L Critically high 46-116 [facility] Comment on above: Performed By: #### C MP ####[facility] Edysdqovmq90[address] [place] [address]Dr. Lizandro Joby ALT [Catalytic activity/Vol] 19 U/L Normal 14-59 [facility] Comment on above: Performed By: #### C MP ####[facility] Lqlonqxebr19[address] [place] [address]Dr. Lizandro Joby Anion gap [Moles/Vol] 13.4 mmol/L Normal [facility] Comment on above: Performed By: #### C MP ####[facility] Wjqzldsdvg[address] [place], [place] [address]Dr. Shanikaannie Hemphill AST [Catalytic activity/Vol] 30 U/L Normal 15-37 [facility] Comment on above: Performed By: #### C MP ####[facility] Xnmmbcvmcz39[address] [place], [place] [address]Dr. Shanikaannie Joby Bilirubin [Mass/Vol] 0.1 mg/dL Critically low 0.2-1.0 [facility] Comment on above: Performed By: #### C MP ####[facility] Htbujhvfdz[address] [place], [place] [address]Dr. Shanikaannie Joby Calcium [Mass/Vol] 7.9 mg/dL Critically low 8.5-10.1 Th [facility] Comment on above: Performed By: #### C MP ####[facility] Ygfjxwjebp45[address] [place] [address]Dr. Lizandro Hemphill Chloride [Moles/Vol] 107 mmol/L Normal 98-107 [facility] Comment on above: Performed By: #### C MP ####[facility] Xwfwljxtff1116 [place] [address]Dr. Lizandro Hemphill CO2 [Moles/Vol] 22.7 mmol/L Normal 21.0-32.0 [facility] Comment on above: Performed By: #### C MP ####[facility] Kiwujtnjei[address] [place] [phone]. Lizandro Hemphill Creatinine [Mass/Vol] 1.37 mg/dL Critically high 0.55-1.02 [facility] Comment on above: Performed By: #### C MP ####[facility] Bkdlpfyuwr6956 [place] [phone]. Lizandro Hemphill EGFR-AF CHADIAN 48 mL/min/1.73m2 Critically low >=60 [facility] Comment on above: Performed By: #### C MP ####[facility] Qajvxifnwd0207 [place] [phone]. Lizandro Joby EGFR-NON AF CHADIAN 39 mL/min/1.73m2 Critically low >=60 [facility] Comment on above: Performed By: #### C MP ####[facility] Dyrlbjwlev7271 [place] [phone]. Lizandro Joby Globulin (S) [Mass/Vol] 2.9 g/dL Normal [facility] Comment on above: Performed By: #### C MP ####[facility] Tskpstsuld1984 [place] [phone]. Lizandro Hemphill Glucose [Mass/Vol] 120 mg/dL Critically high 74-106 [facility] Comment on above: Performed By: #### C MP ####[facility] Fiqcrcsbpj0400 [place] [phone]. Lizandro Joby Potassium [Moles/Vol] 4.1 mmol/L Normal 3.5-5.1 [facility] Comment on above: Performed By: #### C MP ####[facility] Ndvtbbbvwg3982 [place] [phone]. Lizandro Hemphill Protein [Mass/Vol] 5.2 g/dL Critically low 6.4-8.2 Th [facility] Comment on above: Performed By: #### C MP ####[facility] Zhrypwowee9200 [place] [phone]. Lizandro Joby Sodium [Moles/Vol] 139 mmol/L Normal 136-145 [facility] Comment on above: Performed By: #### C MP ####[facility] Jldrncryie4[address] [place] [address]Dr. Lizandro Hemphill Urea nitrogen [Mass/Vol] 19.0 mg/dL Critically high 7.0-18.0 [facility] Comment on above: Performed By: #### C MP ####[facility] Auzcksbdgt27[address] [place], [place] [address]Dr. Lizandro Hemphill Urea nitrogen/Creatinin e [Mass ratio] 13.9 mg/mg Normal The [facility] Comment on above: Performed By: #### C MP ####[facility] Flvihuwtuk[address] [place], [place] [address]Dr. Liznadro Hemphill PROTIMEon 05-05-2022 INR Coag (PPP) [Relative time] 1.07 {INR} Normal [facility] Comment on above: Performed By: #### P T ####[facility] Zncsexedts58[address] [place], [place] [address]Dr. Lizandro Hemphill INR GUIDELINES SEE BELOW Normal [facility] Comment on above: Result Comment: GUEVARA RED INR: 2.0 - 3.0 CONDITIONS NOT LISTED BELOW 2.5 - 3.5 FOR PROSTHETIC HEART VALVE REPLACEMENT 2.5 - 3.5 RECURRENT THROMBOSIS Performed By: #### P T ####[facility] Eikkeebkwr01[address] [place], [place] [address]Dr. Lizandro Hemphill PT Coag (PPP) [Time] 11.3 s Normal 9.0-11.6 The [facility] Comment on above: Performed By: #### P T ####[facility] Bqhfjqoxpi[address] [place], [place] [address]Dr. Lizandro Hemphill CBC AUTO DIFFon 05-04-2022 BASO # 0.1 103/ul Normal 0.0-0.1 [facility] Comment on above: Performed By: #### C BC ####[facility] Ixivhqewdt63[address] [place], [place] [address]DrCiro Hemphill Basophils/100 WBC (Bld) 1.2 % Normal 0.2-2.0 [facility] Comment on above: Performed By: #### C BC ####[facility] Oopplojcfs8855 [place] [id number]. Lizandro Hemphill EO # 0.0 103/ul Normal 0.0-0.7 The [facility] Comment on above: Performed By: #### C BC ####[facility] Wtxqyfpvoa1287 [place] [id number]. Lizandro Hemphill Eosinophils/100 WBC (Bld) 0.5 % Critically low 0.9-7.0 The [facility] Comment on above: Performed By: #### C BC ####[facility] Uorbivssts0[address] [place], [place] [address]Dr. Lizandro Hemphill Erythrocyte distribution width (RBC) [Ratio] 18.8 % Critically high 11.0-15.0 [facility] Comment on above: Performed By: #### C BC ####[facility] Nlfvxhmghl2636[address] [place], [place] [address]Dr. Lizandro Hemphill Hematocrit (Bld) [Volume fraction] 26.6 % Critically low 36.0-48.0 [facility] Comment on above: Performed By: #### C BC ####[facility] Jxxmcopeei7899[address] [place], [place] [address]Dr. Lizandro Hemphill Hemoglobin (Bld) [Mass/Vol] 8.2 g/dL Critically low 12.0-16.0 [facility] Comment on above: Performed By: #### C BC ####[facility] Rqnkflcuvo3047[address] [place], [place] [address]Dr. Lizandro Hemphill IG # 0.02 10e3/ul Normal 0.00-0.03 [facility] Comment on above: Performed By: #### C BC ####[facility] Cazgqdzqvp60[address] [place], [place] [address]Dr. Lizandro Hemphill IG % 0.4 % Normal 0.0-0.5 The [facility] Comment on above: Performed By: #### C BC ####[facility] Ixtmtbvpxa877[address] [place], [place] [address]Dr. Lizandro Hemphill LYMPH # 1.4 103/ul Normal 1.2-3.8 The [facility] Comment on above: Performed By: #### C BC ####[facility] Uaazifqrux6405 [place] [id number]. Lizandro Hemphill Lymphocytes/100 WBC (Bld) 24.5 % Normal 20.5-60.0 The [facility] Comment on above: Performed By: #### C BC ####[facility] Pnyicanbtc9578 [place] [phone]. Shanikaannie Hemphill MANUAL DIFF REQ NO Normal [facility] Comment on above: Performed By: #### C BC ####[facility] Ikckupomth5377 [place] [phone]. Lizandro Joby MCH (RBC) [Entitic mass] 26.4 pg Critically low 26.7-34.0 [facility] Comment on above: Performed By: #### C BC ####[facility] Brxoqflgxr70[address] [place], [place] [address]Dr. Lizandro Joby MCHC (RBC) [Mass/Vol] 30.8 g/dL Normal 29.9-35.2 The [facility] Comment on above: Performed By: #### C BC ####[facility] Vqhlhwfzgk4465[address] [place], [place] [address]Dr. Lizandro Hemphill MCV (RBC) [Entitic vol] 85.5 fL Normal 81.0-99.0 The [facility] Comment on above: Performed By: #### C BC ####[facility] Kbrmcqpali475[address] [place], [place] [address]Dr. Shanikaannie Joby MONO # 0.7 103/ul Normal 0.3-0.8 The [facility] Comment on above: Performed By: #### C BC ####[facility] Nzrikluknf1225[address] [place], [place] [address]Dr. Lizandro Joby Monocytes/100 WBC (Bld) 12.1 % Critically high 1.7-12.0 The [facility] Comment on above: Performed By: #### C BC ####[facility] Ojpxopvpkd8224[address] [place], [place] [address]Dr. Lizandro Hemphill NEUT # 3.5 103/ul Normal 1.4-6.5 The [facility] Comment on above: Performed By: #### C BC ####[facility] Qlojucdchw6859 [place] [id number]. Lizandro Hemphill Neutrophils/100 WBC (Bld) 61.3 % Normal 43.0-75.0 [facility] Comment on above: Performed By: #### C BC ####[facility] Lwlhceqbsv6537 [place] [phone]. Lizandro Hemphill Platelet mean volume (Bld) [Entitic vol] 10.8 fL Normal 9.5-13.5 [facility] Comment on above: Performed By: #### C BC ####[facility] Oukagmtcbt9418 [place] [id number]. Lizandro Hemphill PLT 309 103/ul Normal 150-450 [facility] Comment on above: Performed By: #### C BC ####[facility] Pifecshqsu9484 [place] [address]Dr. Lizandro Hemphill RBC 3.11 106/ul Critically low 4.20-5.40 [facility] Comment on above: Performed By: #### C BC ####[facility] Umturokewv[address] [place], [place] [address]Dr. Lizandro Hemphill WBC 5.6 103/ul Normal 4.0-11.0 [facility] Comment on above: Performed By: #### C BC ####[facility] Vwrdtgjimg2955[address] [place], [place] [address]Dr. Lizandro Hemphill CT ABD/PELVIS WO CONon 05-04 CT ABD/PELVIS WO CON Normal [facility] PROF 14(COMP METB)on 023 Albumin [Mass/Vol] 2.7 g/dL Critically low 3.4-5.0 [facility] Comment on above: Performed By: #### C MP ####[facility] Jvzthiydlq01[address] [place], [place] [address]Dr. Lizandro Hemphill Albumin/Globulin [Mass ratio] 0.9 {ratio} Normal [facility] Comment on above: Performed By: #### C MP ####[facility] Pjlbxcubix351[address] [place], [place] [address]Dr. Lizandro Hemphill ALP [Catalytic activity/Vol] 122 U/L Critically high 46-116 [facility] Comment on above: Performed By: #### C MP ####[facility] Uviltkcpof2558 [place] [address]Dr. Lizandro Hemphill ALT [Catalytic activity/Vol] 23 U/L Normal 14-59 [facility] Comment on above: Performed By: #### C MP ####[facility] Jmsyykruog7618[address] [place], [place] [address]Dr. Lizandro Hemphill Anion gap [Moles/Vol] 11.9 mmol/L Normal [facility] Comment on above: Performed By: #### C MP ####[facility] R[address]zpbdrbwz74[address] [place], [place] [address]Dr. Lizandro Hemphill AST [Catalytic activity/Vol] 26 U/L Normal 15-37 [facility] Comment on above: Performed By: #### C MP ####[facility] Gsydfzjhrf[address] [place], [place] [address]Dr. Lizandro Hemphill Bilirubin [Mass/Vol] 0.3 mg/dL Normal 0.2-1.0 [facility] Comment on above: Performed By: #### C MP ####[facility] Ujqnnxsaxh7532[address] [place], [place] [address]Dr. Lizandro Hemphill Calcium [Mass/Vol] 8.4 mg/dL Critically low 8.5-10.1 Th [facility] Comment on above: Performed By: #### C MP ####[facility] Sfqjmfrygk[address] [place], [place] [address]Dr. Lizandro Hemphill Chloride [Moles/Vol] 106 mmol/L Normal 98-107 [facility] Comment on above: Performed By: #### C MP ####[facility] Mrgbzrnavv59[address] [place], [place] [address]Dr. Lizandro Hemphill CO2 [Moles/Vol] 26.2 mmol/L Normal 21.0-32.0 The [facility] Comment on above: Performed By: #### C MP ####[facility] Becdshskok47[address] [place], [place] [address]Dr. Lizandro Hemphill Creatinine [Mass/Vol] 1.43 mg/dL Critically high 0.55-1.02 [facility] Comment on above: Performed By: #### C MP ####[facility] Botrkhxmux9384 [place] [address]Dr. Shanikaannie Joby EGFR-AF CHADIAN 45 mL/min/1.73m2 Critically low >=60 [facility] Comment on above: Performed By: #### C MP ####[facility] Nhjluedtry3090 [place] [address]Dr. Shanikaannie Joby EGFR-NON AF CHADIAN 37 mL/min/1.73m2 Critically low >=60 [facility] Comment on above: Performed By: #### C MP ####[facility] Zoltxjdhfq4088 [place] [address]Dr. Lizandro Hemphill Globulin (S) [Mass/Vol] 2.9 g/dL Normal [facility] Comment on above: Performed By: #### C MP ####[facility] Xfkhdnwayu0057 [place] [address]Dr. Lizandro Hemphill Glucose [Mass/Vol] 101 mg/dL Normal 74-106 [facility] Comment on above: Performed By: #### C MP ####[facility] Jxhbrvzljk[address] [place], [place] [address]Dr. Lizandro Hemphill Protein [Mass/Vol] 5.6 g/dL Critically low 6.4-8.2 Th [facility] Comment on above: Performed By: #### C MP ####[facility] Fpyzpwuljr0326 [place] [address]Dr. Lizandro Hemphill Sodium [Moles/Vol] 140 mmol/L Normal 136-145 [facility] Comment on above: Performed By: #### C MP ####[facility] Mzevpqmkhw87[address] [place], [place] [address]Dr. Lizandro Hemphill Urea nitrogen [Mass/Vol] 14.0 mg/dL Normal 7.0-18.0 [facility] Comment on above: Performed By: #### C MP ####[facility] Bqyuxwdwfa54[address] [place], [place] [address]Dr. Lizandro Hemphill Urea nitrogen/Creatinin e [Mass ratio] 9.8 mg/mg Normal [facility] Comment on above: Performed By: #### C MP ####[facility] Cszhokisnu05[address] [place], [place] [address]Dr. Shanikaannie Hemphill PROTIMEon 05-04-2022 INR Coag (PPP) [Relative time] 1.01 {INR} Normal [facility] Comment on above: Performed By: #### P T ####[facility] Pmopvlltir47[address] [place], [place] [address]Dr. Lizandro Hemphill INR GUIDELINES SEE BELOW Normal [facility] Comment on above: Result Comment: GUEVARA RED INR: 2.0 - 3.0 CONDITIONS NOT LISTED BELOW 2.5 - 3.5 FOR PROSTHETIC HEART VALVE REPLACEMENT 2.5 - 3.5 RECURRENT THROMBOSIS Performed By: #### P T ####[facility] Mdybapbtwg758[address] [place], [place] [address]Dr. Lizandro Hemphill PT Coag (PPP) [Time] 10.7 s Normal 9.0-11.6 The [facility] Comment on above: Performed By: #### P T ####[facility] Vmoxxfbsec7387[address] [place], [place] [address]Dr. Lizandro Hemphill AMMONIAon 05-03-2022 Ammonia (P) [Moles/Vol] 27 umol/L Normal 11-32 The [facility] Comment on above: Performed By: #### A MM ####[facility] Zytwhaggik3337[address] [place], [place] [address]Dr. Lizandro Hemphill AMYLASEon 05-03-2022 Amylase [Catalytic activity/Vol] 68 U/L Normal 25-115 The [facility] Comment on above: Performed By: #### M G, CMP, ALICIA, LIPA ####[facility] Pkensmykzv3834[address] [place], [place] [address]Dr. Lizandro Hemphill CBC AUTO DIFFon 05-03-2022 BASO # 0.1 103/ul Normal 0.0-0.1 [facility] Comment on above: Performed By: #### C BC ####[facility] Fbitvzdtff3694[address] [place], [place] [address]Dr. Lizandro Hemphill Basophils/100 WBC (Bld) 1.1 % Normal 0.2-2.0 The [facility] Comment on above: Performed By: #### C BC ####[facility] Ybnlopqzqp774[address] [place], [place] [address]Dr. Lizandro Hemphill EO # 0.0 103/ul Normal 0.0-0.7 The [facility] Comment on above: Performed By: #### C BC ####[facility] Dbbwqjejfs045[address] [place], [place] [address]Dr. Lizandro Hemphill Eosinophils/100 WBC (Bld) 0.4 % Critically low 0.9-7.0 The [facility] Comment on above: Performed By: #### C BC ####[facility] Yhxgacsmxe036[address] [place], [place] [address]Dr. Lizandro Hemphill Erythrocyte distribution width (RBC) [Ratio] 18.7 % Critically high 11.0-15.0 [facility] Comment on above: Performed By: #### C BC ####[facility] Cbpnsnfrls4916[address] [place], [place] [address]Dr. Lizandro Hemphill Hematocrit (Bld) [Volume fraction] 31.0 % Critically low 36.0-48.0 [facility] Comment on above: Performed By: #### C BC ####[facility] Dieloomzad3280[address] [place], [place] [address]Dr. Lizandro Hemphill Hemoglobin (Bld) [Mass/Vol] 9.4 g/dL Critically low 12.0-16.0 The [facility] Comment on above: Performed By: #### C BC ####[facility] Dgijazanli4448[address] [place], [place] [address]Dr. Lizandro Hemphill IG # 0.02 10e3/ul Normal 0.00-0.03 The [facility] Comment on above: Performed By: #### C BC ####[facility] Mkkgiczlyi1074[address] [place], [place] [address]Dr. Lizandro Hemphill IG % 0.3 % Normal 0.0-0.5 The [facility] Comment on above: Performed By: #### C BC ####[facility] Cxqolgwxrb3440[address] [place], [place] [address]Dr. Lizandro Hemphill LYMPH # 1.6 103/ul Normal 1.2-3.8 The [facility] Comment on above: Performed By: #### C BC ####[facility] Nfvvzkfumg3693 [place] [address]DrCiro Hemphill Lymphocytes/100 WBC (Bld) 21.2 % Normal 20.5-60.0 [facility] Comment on above: Performed By: #### C BC ####[facility] Gihajhkwsd6[address] [place], [place] [address]DrCiro Hemphill MANUAL DIFF REQ NO Normal [facility] Comment on above: Performed By: #### C BC ####[facility] Mkuzzmnigi1476 [place] [address]DrCiro Hemphill MCH (RBC) [Entitic mass] 26.0 pg Critically low 26.7-34.0 [facility] Comment on above: Performed By: #### C BC ####[facility] Vgkqgrgagz8158[address] [place], [place] [address]DrCiro Hemphill MCHC (RBC) [Mass/Vol] 30.3 g/dL Normal 29.9-35.2 The [facility] Comment on above: Performed By: #### C BC ####[facility] Luwxjqhrym350[address] [place], [place] [address]DrCiro Hemphill MCV (RBC) [Entitic vol] 85.9 fL Normal 81.0-99.0 The [facility] Comment on above: Performed By: #### C BC ####[facility] Gezuqhtueo2098[address] [place], [place] [address]DrCiro Hemphill MONO # 0.7 103/ul Normal 0.3-0.8 The [facility] Comment on above: Performed By: #### C BC ####[facility] Neipwcfofc186[address] [place], [place] [address]DrCiro Hemphill Monocytes/100 WBC (Bld) 9.5 % Normal 1.7-12.0 The [facility] Comment on above: Performed By: #### C BC ####[facility] Ajnevkqslw3149[address] [place], [place] [address]DrCiro Hemphill NEUT # 5.1 103/ul Normal 1.4-6.5 The [facility] Comment on above: Performed By: #### C BC ####[facility] Cvcezwaklq3088 [place] [address]Dr. Lizandro Hemphill Neutrophils/100 WBC (Bld) 67.5 % Normal 43.0-75.0 [facility] Comment on above: Performed By: #### C BC ####[facility] Impyndqynu1722 [place] [address]Dr. Lizandro Hemphill Platelet mean volume (Bld) [Entitic vol] 10.1 fL Normal 9.5-13.5 The [facility] Comment on above: Performed By: #### C BC ####[facility] Boebnveusw2919[address] [place], [place] [address]Dr. Lizandro Hemphill PLT 404 103/ul Normal 150-450 The [facility] Comment on above: Performed By: #### C BC ####[facility] Ddtjqznnvh097[address] [place], [place] [address]Dr. Lizandro Hemphill RBC 3.61 106/ul Critically low 4.20-5.40 [facility] Comment on above: Performed By: #### C BC ####[facility] Dfuamggqeg226[address] [place], [place] [address]Dr. Lizandro Hemphill WBC 7.6 103/ul Normal 4.0-11.0 The [facility] Comment on above: Performed By: #### C BC ####[facility] Fqeqalaxuy8134[address] [place], [place] [address]Dr. Lizandro Hemphill CULTURE BLOODon 05-03-2022 Microscopic examination of blood, culture Culture Observations: NO GROWTH AT 5 DAYS. Normal The [facility] Comment on above: Performed By: #### B LDCX2 ####[facility] Zspkrcannm713[address] [place], [place] [address]Dr. Lizandro Hemphill Microscopic examination of blood, culture Culture Observations: NO GROWTH AT 5 DAYS. Normal [facility] Comment on above: Performed By: #### B LDCX1 ####[facility] Rgvwziatup450[address] [place], [place] [address]Dr. Lizandro Hemphill CULTURE URINEon 05-03-2022 CULTURE URINE Culture Observations : NO GROWTH. Normal The [facility] Comment on above: Performed By: #### U RCX ####[facility] Nejqchikck4630[address] [place], [place] [address]Dr. Lizandro Hemphill [facility]on SARS-CoV-2 (COVID-19) RNA VERITO+probe Ql (Unsp spec) Not detected Normal NOT DETECTED The [facility] Comment on above: Result Comment: When diagnostic testing is negative, the possibility of a false negative should be considered inthe context of a patient's recent exposures and the presence of clinical signs and symptomsconsistent with SARS-CoV-2.This test is not yet approved or cleared by the [place] FDA. When there are no FDA-approved or cleared tests available, and other criteria are met, FDA can make tests available under an emergency access mechanism called an Emergency Use Authorization (EUA). The EUA for this test is supported by the Street Vendor of Health and Human Service's declaration that circumstances exist to justify the emergency use of in vitro diagnostics for the detection and/or diagnosis of the virus that causes COVID-19. This EUA will remain in effect for the duration of the COVID-19 declaration justifying emergency of IVDs, unless it is terminated or revoked by the FDA (after which the test may no longer be used). Performed By: #### C VDTBH ####[facility] Lcgtnufoex8565[address] [place], [place] [address]Dr. Lizandro Hemphill LACTATE/LACTIC ACIDon 2022 Lactate [Moles/Vol] 0.9 mmol/L Normal 0.4-1.9 [facility] Comment on above: Performed By: #### L ACT ####[facility] Mtvjalqiid9475[address] [place], [place] [address]Dr. Lizandro Hemphill LIPASEon 05-03-2022 Lipase [Catalytic activity/Vol] 105.0 U/L Normal 73.0-393.0 [facility] Comment on above: Performed By: #### M G, CMP, ALICIA, LIPA ####[facility] Vyminqqvdj4455[address] [place], [place] [address]Dr. Lizandro Hemphill MAGNESIUMon 05-03-2022 Magnesium [Mass/Vol] 1.8 mg/dL Normal 1.8-2.4 [facility] Comment on above: Performed By: #### M G, CMP, ALICIA, LIPA ####[facility] Zzjoaqfkze5061 [place] [address]Dr. Lizandro Hemphill PROF 14(COMP METB)on 023 Albumin [Mass/Vol] 3.4 g/dL Normal 3.4-5.0 [facility] Comment on above: Performed By: #### M G, CMP, ALICIA, LIPA ####[facility] Xfomoqgklh7629 [place] [address]Dr. Lizandro Hemphill Albumin/Globulin [Mass ratio] 1.0 {ratio} Normal [facility] Comment on above: Performed By: #### M G, CMP, ALICIA, LIPA ####[facility] Edxanrsiid4867 [place] [address]Dr. Lizandro Hemphill ALP [Catalytic activity/Vol] 154 U/L Critically high 46-116 [facility] Comment on above: Performed By: #### M G, CMP, ALICIA, LIPA ####[facility] Etmoqefhga3848[address] [place], [place] [address]Dr. Lizandro Hemphill ALT [Catalytic activity/Vol] 25 U/L Normal 14-59 [facility] Comment on above: Performed By: #### M G, CMP, ALICIA, LIPA ####[facility] Rnerbegqjn5088 [place] [address]Dr. Lizandro Hemphill Anion gap [Moles/Vol] 13.2 mmol/L Normal [facility] Comment on above: Performed By: #### M G, CMP, ALICIA, LIPA ####[facility] Cwstjxcvbh3633 [place] [address]Dr. Lizandro Hemphill AST [Catalytic activity/Vol] 28 U/L Normal 15-37 [facility] Comment on above: Performed By: #### M G, CMP, ALICIA, LIPA ####[facility] Heamdqogjp7241 [place] [address]Dr. Lizandro Hemphill Bilirubin [Mass/Vol] 0.4 mg/dL Normal 0.2-1.0 The [facility] Comment on above: Performed By: #### M G, CMP, ALICIA, LIPA ####[facility] Cpuhzsaeux3253 [place] [address]Dr. Lizandro Hemphill Calcium [Mass/Vol] 9.0 mg/dL Normal 8.5-10.1 [facility] Comment on above: Performed By: #### M G, CMP, ALICIA, LIPA ####[facility] Hgkxqteqxr8829 [place] [address]Dr. Lizandro Hemphill Chloride [Moles/Vol] 104 mmol/L Normal 98-107 The [facility] Comment on above: Performed By: #### M G, CMP, ALICIA, LIPA ####[facility] Qvhgjuyybd9[address] [place], [place] [address]Dr. Lizandro Hemphill CO2 [Moles/Vol] 26.3 mmol/L Normal 21.0-32.0 The [facility] Comment on above: Performed By: #### M G, CMP, ALICIA, LIPA ####[facility] Dhvcoaprrd1807[address] [place], [place] [address]Dr. Lizandro Hemphill Creatinine [Mass/Vol] 0.73 mg/dL Normal 0.55-1.02 [facility] Comment on above: Performed By: #### M G, CMP, ALICIA, LIPA ####[facility] Gcjyyytscp6458 [place] [address]Dr. Lizandro Hemphill EGFR-AF CHADIAN >60 Normal >=60 The [facility] Comment on above: Performed By: #### M G, CMP, ALICIA, LIPA ####[facility] Gesuniwoat4117 [place] [address]Dr. Lizandro Hemphill EGFR-NON AF CHADIAN >60 Normal >=60 The [facility] Comment on above: Performed By: #### M G, CMP, ALICIA, LIPA ####[facility] Iavztktatz8643 [place] [address]Dr. Lizandro Hemphill Globulin (S) [Mass/Vol] 3.5 g/dL Normal [facility] Comment on above: Performed By: #### M G, CMP, ALICIA, LIPA ####[facility] Zyvacgyeue9070 [place] [address]Dr. Lizandro Hemphill Glucose [Mass/Vol] 87 mg/dL Normal 74-106 [facility] Comment on above: Performed By: #### M G, CMP, ALICIA, LIPA ####[facility] Fvtntlrsrb7022 [place] [address]Dr. Lizandro Hemphill Potassium [Moles/Vol] 3.5 mmol/L Normal 3.5-5.1 The [facility] Comment on above: Performed By: #### M G, CMP, ALICIA, LIPA ####[facility] Brewssehtc4511 [place] [address]Dr. Lizandro Hemphill Protein [Mass/Vol] 6.9 g/dL Normal 6.4-8.2 [facility] Comment on above: Performed By: #### M G, CMP, ALICIA, LIPA ####[facility] Iwizcgqtgl2704[address] [place], [place] [address]Dr. Lizandro Hemphill Sodium [Moles/Vol] 140 mmol/L Normal 136-145 [facility] Comment on above: Performed By: #### M G, CMP, ALIICA, LIPA ####[facility] Rpxmyaajmc9026 [place] [address]Dr. Lizandro Hemphill Urea nitrogen [Mass/Vol] 12.0 mg/dL Normal 7.0-18.0 The [facility] Comment on above: Performed By: #### M G, CMP, ALICIA, LIPA ####[facility] Jtfcazxjpl1475[address] [place], [place] [address]Dr. Lizandro Hemphill Urea nitrogen/Creatinin e [Mass ratio] 16.4 mg/mg Normal The [facility] Comment on above: Performed By: #### M G, CMP, ALICIA, LIPA ####[facility] Wnbjkkkohj5543 [place] [address]Dr. Lizandro Hemphill PROTIMEon 05-03-2022 INR Coag (PPP) [Relative time] 0.97 {INR} Normal The [facility] Comment on above: Performed By: #### P TT, PT ####[facility] Ntdudcbllw8176[address] [place], [place] [address]Dr. Lizandro Hemphill INR GUIDELINES SEE BELOW Normal [facility] Comment on above: Result Comment: GUEVARA RED INR: 2.0 - 3.0 CONDITIONS NOT LISTED BELOW 2.5 - 3.5 FOR PROSTHETIC HEART VALVE REPLACEMENT 2.5 - 3.5 RECURRENT THROMBOSIS Performed By: #### P TT, PT ####[facility] Pdmpwrehgx4465[address] [place], [place] [address]Dr. Lizandro Hemphill PT Coag (PPP) [Time] 10.3 s Normal 9.0-11.6 The [facility] Comment on above: Performed By: #### P TT, PT ####[facility] Yummmqnyka5045[address] [place], [place] [address]Dr. Lizandro Hemphill PTTon 05-03-2022 aPTT Coag (Bld) [Time] 27.1 s Normal 22.3-36.2 The [facility] Comment on above: Performed By: #### P TT, PT ####[facility] Qzxjcudfzi4656[address] [place], [place] [address]Dr. Lizandro Hemphill UA RANDOM W/MICROSCOPICon BACTERIA NONE SEEN Normal NONE SEEN The [facility] Comment on above: Performed By: #### U AMIC ####[facility] Tagltwqpmg8067[address] [place], [place] [address]Dr. Lizandro Hemphill Bilirubin Ql (U) Negative Normal NEGATIVE The [facility] Comment on above: Performed By: #### U AMIC ####[facility] Yddetqvzcs[address] [place], [place] [address]Dr. Lizandro Hemphill CAST NONE SEEN Normal NONE SEEN The [facility] Comment on above: Performed By: #### U AMIC ####[facility] Ztivphifym7196[address] [place], [place] [address]Dr. Lizandro Hemphill Clarity (U) CLEAR Normal CLEAR The [facility] Comment on above: Performed By: #### U AMIC ####[facility] Wqewihddsi677[address] [place], [place] [address]Dr. Lizandro Hemphill Color (U) LT. YELLOW Normal YELLOW The [facility] Comment on above: Performed By: #### U AMIC ####[facility] Abewnozppt1122 [place] [address]Dr. Lizandro Hemphill Crystals LM Nom (Urine sed) NONE SEEN Normal NONE SEEN [facility] Comment on above: Performed By: #### U AMIC ####[facility] Jthmgbigjf6364 [place] [id number]. Lizandro Hemphill Epithelial cells LM Ql (Urine sed) NONE SEEN Normal NONE SEEN /RARE The [facility] Comment on above: Performed By: #### U AMIC ####[facility] Yaljicbcsz2917 [place] [address]Dr. Lizandro Hemphill Glucose Ql (U) Negative Normal NEGATIVE [facility] Comment on above: Performed By: #### U AMIC ####[facility] Gbiiydzxyd2628 [place] [address]Dr. Lizandro Hemphill Hemoglobin Ql (U) Negative Normal NEGATIVE The [facility] Comment on above: Performed By: #### U AMIC ####[facility] Sixifmlrpz534[address] [place], [place] [address]Dr. Lizandro Hemphill Ketones Ql (U) 15 mg/dl Abnormal NEGATIVE [facility] Comment on above: Performed By: #### U AMIC ####[facility] Ehepxtwtfq[address] [place], [place] [address]Dr. Yilan Hemphill LEUKOCYTES Negative Normal NEGATIVE The [facility] Comment on above: Performed By: #### U AMIC ####[facility] Vvascdcibr9528 [place] [address]Dr. Yilan Hemphill MUCOUS NONE SEEN Normal NONE SEEN The [facility] Comment on above: Performed By: #### U AMIC ####[facility] Sqxhiinbjb4922 [place] [address]Dr. Lizandro Hemphill Nitrite Ql (U) Negative Normal NEGATIVE [facility] Comment on above: Performed By: #### U AMIC ####[facility] Ecrczdmsuq8160 [place] [address]Dr. Lizandro Hemphill pH (U) 7.0 [pH] Normal 5-9 The [facility] Comment on above: Performed By: #### U AMIC ####[facility] Iovtlwoqdu1125 [place] [id number]. Lizandro Hemphill RBC 0-2 Normal 0-2 The [facility] Comment on above: Performed By: #### U AMIC ####[facility] Aphfstivmh7180 [place] [id number]. Shanikaannie Hemphill SPEC GRAVITY 1.010 Normal 1.005-<=1.025 [facility] Comment on above: Performed By: #### U AMIC ####[facility] Gxehkjsqmu6424 [place] [address]Dr. Lizandro Hemphill UA PROTEIN Negative Normal NEGATIVE/ TRACE The [facility] Comment on above: Performed By: #### U AMIC ####[facility] Mcvnogvwci1042 [place] [address]Dr. Lizandro Hemphill Urobilinogen Qn (U) 0.2 {Cassy'U}/dL Normal 0.2 - 1.0 [facility] Comment on above: Performed By: #### U AMIC ####[facility] Tjuwnergdz[address] [place], [place] [address]Dr. Lizandro Hemphill WBC NONE SEEN Normal NONE SEEN [facility] Comment on above: Performed By: #### U AMIC ####[facility] Ksylbgvzjd[address] [place] [address]Dr. Lizandro Hemphill XR ABD FLAT UP_PA Allen 05-03 XR ABD FLAT UP_PA CH Normal [facility] CBC AUTO DIFFon 04-13-2022 BASO # 0.1 103/ul Normal 0.0-0.1 [facility] Comment on above: Performed By: #### C BC ####[facility] Fhwfinpuol0417 [place] [address]Dr. Lizandro Hemphill Basophils/100 WBC (Bld) 0.7 % Normal 0.2-2.0 [facility] Comment on above: Performed By: #### C BC ####[facility] Qspslvtnhs14[address] [place], [place] [address]Dr. Lizandro Hemphill EO # 0.0 103/ul Normal 0.0-0.7 [facility] Comment on above: Performed By: #### C BC ####[facility] Oxnxneoweo06[address] [place] [address]Dr. Lizandro Hemphill Eosinophils/100 WBC (Bld) 0.3 % Critically low 0.9-7.0 [facility] Comment on above: Performed By: #### C BC ####[facility] Chjbojwoam[address] [place], [place] [address]Dr. Lizandro Hemphill Erythrocyte distribution width (RBC) [Ratio] 18.2 % Critically high 11.0-15.0 [facility] Comment on above: Performed By: #### C BC ####[facility] Twtfaidtwk[address] [place], [place] [address]Dr. Lizandro Hemphill Hematocrit (Bld) [Volume fraction] 32.1 % Critically low 36.0-48.0 [facility] Comment on above: Performed By: #### C BC ####[facility] Atakehrkxb1164[address] [place], [place] [address]Dr. Lizandro Hemphill Hemoglobin (Bld) [Mass/Vol] 10.2 g/dL Critically low 12.0-16.0 [facility] Comment on above: Performed By: #### C BC ####[facility] Qjhylphjow9[address] [place], [place] [address]Dr. Lizandro Hemphill IG # 0.03 10e3/ul Normal 0.00-0.03 [facility] Comment on above: Performed By: #### C BC ####[facility] Akiefsqzvr4784[address] [place], [place] [address]Dr. Lizandro Hemphill IG % 0.3 % Normal 0.0-0.5 [facility] Comment on above: Performed By: #### C BC ####[facility] Qlhpxdighs12[address] [place], [place] [address]Dr. Lizandro Hemphill LYMPH # 1.2 103/ul Normal 1.2-3.8 [facility] Comment on above: Performed By: #### C BC ####[facility] Mhgxcefgxz7136[address] [place], [place] [address]Dr. Lizandro Hemphill Lymphocytes/100 WBC (Bld) 10.4 % Critically low 20.5-60.0 [facility] Comment on above: Performed By: #### C BC ####[facility] Fgttiocylb3922 [place] [address]DrCiro Hemphill MANUAL DIFF REQ NO Normal [facility] Comment on above: Performed By: #### C BC ####[facility] Afhdzregzu[address] [place] [id number]. Lizandro Hemphill MCH (RBC) [Entitic mass] 26.4 pg Critically low 26.7-34.0 [facility] Comment on above: Performed By: #### C BC ####[facility] Vnktkjfvzh0340 [place] [address]Dr. Lizandro Hemphill MCHC (RBC) [Mass/Vol] 31.8 g/dL Normal 29.9-35.2 [facility] Comment on above: Performed By: #### C BC ####[facility] Xpolftvrva23[address] [place], [place] [address]DrCiro Hemphill MCV (RBC) [Entitic vol] 83.2 fL Normal 81.0-99.0 [facility] Comment on above: Performed By: #### C BC ####[facility] Zaxqtgchlf[address] [place], [place] [address]Dr. Lizandro Hemphill MONO # 1.0 103/ul Critically high 0.3-0.8 [facility] Comment on above: Performed By: #### C BC ####[facility] Eoxoawifqs8435 [place] [address]Dr. Lizandro Hemphill Monocytes/100 WBC (Bld) 9.0 % Normal 1.7-12.0 [facility] Comment on above: Performed By: #### C BC ####[facility] Iovtfvkkor4[address] [place], [place] [address]DrCiro Hemphill NEUT # 9.0 103/ul Critically high 1.4-6.5 [facility] Comment on above: Performed By: #### C BC ####[facility] Bydxbilyja[address] [place], [place] [address]DrCiro Hemphill Neutrophils/100 WBC (Bld) 79.3 % Critically high 43.0-75.0 [facility] Comment on above: Performed By: #### C BC ####[facility] Yjvkxrugne1755 [place] [address]Dr. Shanikaannie Joby Platelet mean volume (Bld) [Entitic vol] 10.8 fL Normal 9.5-13.5 [facility] Comment on above: Performed By: #### C BC ####[facility] Yyqdzebhgq3967 [place] [address]Dr. Lizandro Hemphill PLT 364 103/ul Normal 150-450 [facility] Comment on above: Performed By: #### C BC ####[facility] Dkvpiuatnq3054 [place] [address]Dr. Lizandro Hemphill RBC 3.86 106/ul Critically low 4.20-5.40 [facility] Comment on above: Performed By: #### C BC ####[facility] Yrhemxavko7852 [place] [address]Dr. Lizandro Hemphill WBC 11.4 103/ul Critically high 4.0-11.0 [facility] Comment on above: Performed By: #### C BC ####[facility] Jkqfeibvho6[address] [place] [address]Dr. Lizandro Hemphill CT ABD/PELVIS WO CONon 04-13 CT ABD/PELVIS WO CON Normal [facility] PROF CHEM 8 (BAS METB)on Anion gap [Moles/Vol] 12.4 mmol/L Normal [facility] Comment on above: Performed By: #### B MP ####[facility] Dkenymtgmh8[address] [place] [id number]. Lizandro Hemphill Calcium [Mass/Vol] 9.1 mg/dL Normal 8.5-10.1 [facility] Comment on above: Performed By: #### B MP ####[facility] Fbkvebfwqx8639 [place] [address]Dr. Lizandro Hemphill Chloride [Moles/Vol] 103 mmol/L Normal 98-107 [facility] Comment on above: Performed By: #### B MP ####[facility] Biybgsvnln1757 [place] [id number]. Lizandro Hemphill CO2 [Moles/Vol] 28.1 mmol/L Normal 21.0-32.0 [facility] Comment on above: Performed By: #### B MP ####[facility] Cssgrogthu3786 [place] [id number]. Lizandro Hemphill Creatinine [Mass/Vol] 1.08 mg/dL Critically high 0.55-1.02 [facility] Comment on above: Performed By: #### B MP ####[facility] Uvilqsjiho0464 [place] [id number]. Lizandro Hemphill EGFR-AF CHADIAN >60 Normal >=60 [facility] Comment on above: Performed By: #### B MP ####[facility] Kabyqqevff[address] [place] [address]Dr. Lizandro Joby EGFR-NON AF CHADIAN 52 mL/min/1.73m2 Critically low >=60 [facility] Comment on above: Performed By: #### B MP ####[facility] Nhfoheexqx2181 [place] [address]Dr. Lizandro Hemphill Glucose [Mass/Vol] 120 mg/dL Critically high 74-106 [facility] Comment on above: Performed By: #### B MP ####[facility] Lrjyyixshv3279 [place] [address]Dr. Lizandro Hemphill Potassium [Moles/Vol] 3.5 mmol/L Normal 3.5-5.1 [facility] Comment on above: Performed By: #### B MP ####[facility] Cuwahfnhdd0564 [place] [address]Dr. Lizandro Hemphill Sodium [Moles/Vol] 140 mmol/L Normal 136-145 [facility] Comment on above: Performed By: #### B MP ####[facility] Byhxpkxvgs9174 [place] [address]Dr. Lizandro Hemphill Urea nitrogen [Mass/Vol] 24.0 mg/dL Critically high 7.0-18.0 [facility] Comment on above: Performed By: #### B MP ####[facility] Eiaezkdwza7077 [place] [address]Dr. Lizandro Hemphill Urea nitrogen/Creatinin e [Mass ratio] 22.2 mg/mg Normal [facility] Comment on above: Performed By: #### B MP ####[facility] Ditbnjulxf[address] [place], [place] [address]Dr. Lizandro Hemphill XR ANKLE RT MIN 3 VIEWSon XR ANKLE RT MIN 3 VIEWS Normal [facility] PRBC LEUKOREDUCEDon 03-23-20 PRBC LEUKOREDUCED Normal [facility] Comment on above: Performed By: #### P RBC ####[facility] Rxgtocoeur0413[address] [place], [place] [address]Dr. Lizandro Hemphill CBC AUTO DIFFon 03-07-2022 BASO # 0.1 103/ul Normal 0.0-0.1 [facility] Comment on above: Performed By: #### C BC ####[facility] Xvqxnvfryg9890[address] [place], [place] [address]Dr. Lizandro Hemphill Basophils/100 WBC (Bld) 1.1 % Normal 0.2-2.0 [facility] Comment on above: Performed By: #### C BC ####[facility] Igbumpdsrs813[address] [place], [place] [address]Dr. Lizandro Hemphill EO # 0.1 103/ul Normal 0.0-0.7 [facility] Comment on above: Performed By: #### C BC ####[facility] Hizkqmiuuz056[address] [place], [place] [address]Dr. Lizandro Hemphill Eosinophils/100 WBC (Bld) 0.8 % Critically low 0.9-7.0 [facility] Comment on above: Performed By: #### C BC ####[facility] Lunhhzkdaq4327[address] [place], [place] [address]Dr. Lizandro Hemphill Erythrocyte distribution width (RBC) [Ratio] 15.9 % Critically high 11.0-15.0 [facility] Comment on above: Performed By: #### C BC ####[facility] Zjmhxkjdhj8006[address] [place], [place] [address]Dr. Lizandro Hemphill Hematocrit (Bld) [Volume fraction] 31.0 % Critically low 36.0-48.0 [facility] Comment on above: Performed By: #### C BC ####[facility] Kzdtqqzzul5611 [place] [address]DrCiro Hemphill Hemoglobin (Bld) [Mass/Vol] 10.1 g/dL Critically low 12.0-16.0 [facility] Comment on above: Performed By: #### C BC ####[facility] Fzzcxqnvmo8[address] [place], [place] [address]DrCiro Hemphill IG # 0.04 10e3/ul Critically high 0.00-0.03 [facility] Comment on above: Performed By: #### C BC ####[facility] Xgfmlexcsj3515[address] [place], [place] [address]DrCiro Hemphill IG % 0.4 % Normal 0.0-0.5 [facility] Comment on above: Performed By: #### C BC ####[facility] Ndgjzhqfxe9357[address] [place], [place] [address]DrCiro Hemphill LYMPH # 1.3 103/ul Normal 1.2-3.8 [facility] Comment on above: Performed By: #### C BC ####[facility] Xhncnxdfps[address] [place], [place] [address]DrCiro Hemphill Lymphocytes/100 WBC (Bld) 13.7 % Critically low 20.5-60.0 [facility] Comment on above: Performed By: #### C BC ####[facility] Sqwwcksydh5646[address] [place], [place] [address]DrCiro Hemphill MANUAL DIFF REQ NO Normal [facility] Comment on above: Performed By: #### C BC ####[facility] Jqdoeznlzy8377 [place] [address]DrCiro Hemphill MCH (RBC) [Entitic mass] 28.6 pg Normal 26.7-34.0 [facility] Comment on above: Performed By: #### C BC ####[facility] Vefvgvinwc7756[address] [place], [place] [address]DrCiro Hemphill MCHC (RBC) [Mass/Vol] 32.6 g/dL Normal 29.9-35.2 [facility] Comment on above: Performed By: #### C BC ####[facility] Uneumywgbt4350 [place] [address]DrCiro Hemphill MCV (RBC) [Entitic vol] 87.8 fL Normal 81.0-99.0 [facility] Comment on above: Performed By: #### C BC ####[facility] Wbtnymysaz1617 [place] [address]DrCiro Hemphill MONO # 0.7 103/ul Normal 0.3-0.8 [facility] Comment on above: Performed By: #### C BC ####[facility] Vidrdwwwiu5121 [place] [address]DrCiro Hemphill Monocytes/100 WBC (Bld) 7.7 % Normal 1.7-12.0 [facility] Comment on above: Performed By: #### C BC ####[facility] Qabjhhjuev3734[address] [place], [place] [address]DrCiro Hemphill NEUT # 7.2 103/ul Critically high 1.4-6.5 [facility] Comment on above: Performed By: #### C BC ####[facility] Kcynwzposz8034[address] [place], [place] [address]DrCiro Hemphill Neutrophils/100 WBC (Bld) 76.3 % Critically high 43.0-75.0 [facility] Comment on above: Performed By: #### C BC ####[facility] Dyzhzndymg7128[address] [place], [place] [address]DrCiro Hemphill Platelet mean volume (Bld) [Entitic vol] 10.3 fL Normal 9.5-13.5 [facility] Comment on above: Performed By: #### C BC ####[facility] Rgagawwcps[address] [place], [place] [id number] Hemphill PLT 382 103/ul Normal 150-450 [facility] Comment on above: Performed By: #### C BC ####[facility] Ktcxxfjhhc[address] [place], [place] [id number] Hemphill RBC 3.53 106/ul Critically low 4.20-5.40 [facility] Comment on above: Performed By: #### C BC ####[facility] Zfpgiollcq5491 [place] [address]Dr. Lizandro Hemphill WBC 9.4 103/ul Normal 4.0-11.0 [facility] Comment on above: Performed By: #### C BC ####[facility] Panivargiw8152 [place] [address]Dr. Lizandro Hemphill LIVER PROFILEon 03-07-2022 Albumin [Mass/Vol] 2.8 g/dL Critically low 3.4-5.0 [facility] Comment on above: Performed By: #### B MP, LIVER ####[facility] Ttwwknckzm6[address] [place], [place] [address]Dr. Lizandro Hemphill Albumin/Globulin [Mass ratio] 0.8 {ratio} Normal [facility] Comment on above: Performed By: #### B MP, LIVER ####[facility] Rrhrhaspjv4822[address] [place], [place] [address]Dr. Lizandro Hemphill ALP [Catalytic activity/Vol] 108 U/L Normal 46-116 [facility] Comment on above: Performed By: #### B MP, LIVER ####[facility] Mlsaxnykln4220[address] [place], [place] [address]Dr. Lizandro Hemphill ALT [Catalytic activity/Vol] 36 U/L Normal 14-59 [facility] Comment on above: Performed By: #### B MP, LIVER ####[facility] Oaaltayzqi4[address] [place], [place] [address]Dr. Lizandro Hemphill AST [Catalytic activity/Vol] 29 U/L Normal 15-37 [facility] Comment on above: Performed By: #### B MP, LIVER ####[facility] Ijzhnkzksd046[address] [place], [place] [address]Dr. Lizandro Hemphill BILI, CONJUGATED 0.1 mg/dL Normal 0.0-0.2 [facility] Comment on above: Performed By: #### B MP, LIVER ####[facility] Qeablpuykc686[address] [place], [place] [address]Dr. Lizandro Hemphill Bilirubin [Mass/Vol] 0.2 mg/dL Normal 0.2-1.0 [facility] Comment on above: Performed By: #### B MP, LIVER ####[facility] Mezcfslmqv9983 [place] [address]Dr. Lizandro Hemphill Globulin (S) [Mass/Vol] 3.6 g/dL Normal [facility] Comment on above: Performed By: #### B MP, LIVER ####[facility] Whnslqwfdn332[address] [place], [place] [address]Dr. Lizandro Hemphill Protein [Mass/Vol] 6.4 g/dL Normal 6.4-8.2 [facility] Comment on above: Performed By: #### B MP, LIVER ####[facility] Grzquauesb4[address] [place], [place] [address]Dr. Lizandro Hemphill PROF CHEM 8 (BAS METB)on Anion gap [Moles/Vol] 10.2 mmol/L Normal [facility] Comment on above: Performed By: #### B MP, LIVER ####[facility] Dgamjgsisw94[address] [place], [place] [address]Dr. Lizandro Hemphill Calcium [Mass/Vol] 8.7 mg/dL Normal 8.5-10.1 [facility] Comment on above: Performed By: #### B MP, LIVER ####[facility] Ginwaetoit7[address] [place], [place] [address]Dr. Lizandro Hemphill Chloride [Moles/Vol] 104 mmol/L Normal 98-107 [facility] Comment on above: Performed By: #### B MP, LIVER ####[facility] Ykfjzmmngy64[address] [place], [place] [address]Dr. Lizandro Hemphill CO2 [Moles/Vol] 27.8 mmol/L Normal 21.0-32.0 [facility] Comment on above: Performed By: #### B MP, LIVER ####[facility] Gftitaqsje2544 [place] [address]Dr. Lizandro Hemphill Creatinine [Mass/Vol] 0.72 mg/dL Normal 0.55-1.02 [facility] Comment on above: Performed By: #### B MP, LIVER ####[facility] Ngviqetwxq7859 [place] [id number]. Lizandro Hemphill EGFR-AF CHADIAN >60 Normal >=60 [facility] Comment on above: Performed By: #### B MP, LIVER ####[facility] Gipncxwjsa9206 [place] [id number]. Lizandro Hemphill EGFR-NON AF CHADIAN >60 Normal >=60 [facility] Comment on above: Performed By: #### B MP, LIVER ####[facility] Rsbgqvlxiw7010 [place] [id number]. Lizandro Hemphill Glucose [Mass/Vol] 97 mg/dL Normal 74-106 [facility] Comment on above: Performed By: #### B MP, LIVER ####[facility] Oluoophcve3272 [place] [address]Dr. Lizandro Hemphill Potassium [Moles/Vol] 4.0 mmol/L Normal 3.5-5.1 [facility] Comment on above: Performed By: #### B MP, LIVER ####[facility] Qvcjbcduoa6092 [place] [address]Dr. Lizandro Hemphill Sodium [Moles/Vol] 138 mmol/L Normal 136-145 [facility] Comment on above: Performed By: #### B MP, LIVER ####[facility] Ofbxmwxanc3096 [place] [id number]. Lizandro Hemphill Urea nitrogen [Mass/Vol] 13.0 mg/dL Normal 7.0-18.0 [facility] Comment on above: Performed By: #### B MP, LIVER ####[facility] Ssxtxjyvge4797 [place] [id number]. Lizandro Hemphill Urea nitrogen/Creatinin e [Mass ratio] 18.1 mg/mg Normal [facility] Comment on above: Performed By: #### B MP, LIVER ####[facility] V[address]fzvfzhx10[address] [place], [place] [address]Dr. Lizandro Hemphill PROTIMEon 03-07-2022 INR Coag (PPP) [Relative time] 0.94 {INR} Normal [facility] Comment on above: Performed By: #### P T ####[facility] Eudwyvjnom5548 [place] [address]Dr. Lizandro Hemphill INR GUIDELINES SEE BELOW Normal [facility] Comment on above: Result Comment: GUEVARA RED INR: 2.0 - 3.0 CONDITIONS NOT LISTED BELOW 2.5 - 3.5 FOR PROSTHETIC HEART VALVE REPLACEMENT 2.5 - 3.5 RECURRENT THROMBOSIS Performed By: #### P T ####[facility] Jtgmtmxkry455[address] [place], [place] [address]Dr. Lizandro Hemphill PT Coag (PPP) [Time] 10.2 s Normal 9.0-11.6 [facility] Comment on above: Performed By: #### P T ####[facility] Amcfqjhdat65[address] [place], [place] [address]Dr. Lizandro Hemphill CBC AUTO DIFFon 03-06-2022 BASO # 0.1 103/ul Normal 0.0-0.1 [facility] Comment on above: Performed By: #### C BC ####[facility] Perlpdenqx4460[address] [place], [place] [address]Dr. Lizandro Hemphill Basophils/100 WBC (Bld) 0.6 % Normal 0.2-2.0 [facility] Comment on above: Performed By: #### C BC ####[facility] Slqunanipv7140[address] [place], [place] [address]Dr. Lizandro Hemphill EO # 0.2 103/ul Normal 0.0-0.7 [facility] Comment on above: Performed By: #### C BC ####[facility] Fzcwbovowl[address] [place], [place] [address]Dr. Lizandro eHmphill Eosinophils/100 WBC (Bld) 1.4 % Normal 0.9-7.0 [facility] Comment on above: Performed By: #### C BC ####[facility] [facility] C[address]tysxljzw[address] [place], [place] [address]Dr. Lizandro Hemphill Erythrocyte distribution width (RBC) [Ratio] 16.1 % Critically high 11.0-15.0 [facility] Comment on above: Performed By: #### C BC ####[facility] Lizngzcclk[address] [place] [address]Dr. Lizandro Hemphill Hematocrit (Bld) [Volume fraction] 28.7 % Critically low 36.0-48.0 [facility] Comment on above: Performed By: #### C BC ####[facility] Grgmhlrpgp32[address] [place] [address]Dr. Lizandro Hemphill Hemoglobin (Bld) [Mass/Vol] 9.3 g/dL Critically low 12.0-16.0 [facility] Comment on above: Performed By: #### C BC ####[facility] Bggwxcugob[address] [place], [place] [address]Dr. Lizandro Joby IG # 0.03 10e3/ul Normal 0.00-0.03 [facility] Comment on above: Performed By: #### C BC ####[facility] Sfitduhfej[address] [place], [place] [address]Dr. Lizandro Hemphill IG % 0.3 % Normal 0.0-0.5 [facility] Comment on above: Performed By: #### C BC ####[facility] Xknofdnpow[address] [place], [place] [address]Dr. Lizandro Joby LYMPH # 1.5 103/ul Normal 1.2-3.8 [facility] Comment on above: Performed By: #### C BC ####[facility] Lmnmgtooqz7[address] [place], [place] [address]DrCiro Lizandro Joby Lymphocytes/100 WBC (Bld) 13.4 % Critically low 20.5-60.0 [facility] Comment on above: Performed By: #### C BC ####[facility] Gtjewqzwyw7[address] [place] [address]DrCiro Shanikaannie Hemphill MANUAL DIFF REQ NO Normal [facility] Comment on above: Performed By: #### C BC ####[facility] Jxyyjhirbe[address] [place], [place] [address]DrCiro Lizandro Joby MCH (RBC) [Entitic mass] 28.5 pg Normal 26.7-34.0 [facility] Comment on above: Performed By: #### C BC ####[facility] Otdsfyydup[address] [place], [place] [address]Dr. Lizandro Hemphill MCHC (RBC) [Mass/Vol] 32.4 g/dL Normal 29.9-35.2 [facility] Comment on above: Performed By: #### C BC ####[facility] Rnzsppotih2[address] [place] [id number]. Lizandro Hemphill MCV (RBC) [Entitic vol] 88.0 fL Normal 81.0-99.0 [facility] Comment on above: Performed By: #### C BC ####[facility] Ukvzrijrje79[address] [place] [id number]. Lizandro Hemphill MONO # 0.9 103/ul Critically high 0.3-0.8 [facility] Comment on above: Performed By: #### C BC ####[facility] Gqwytawusl58[address] [place] [address]Dr. Shanikaannie Hemphill Monocytes/100 WBC (Bld) 8.7 % Normal 1.7-12.0 [facility] Comment on above: Performed By: #### C BC ####[facility] Lycuvpfhmr5[address] [place] [address]Dr. Lizandro Joby NEUT # 8.2 103/ul Critically high 1.4-6.5 [facility] Comment on above: Performed By: #### C BC ####[facility] Vlodnekdcx8035 [place] [address]Dr. Lizandro Hemphill Neutrophils/100 WBC (Bld) 75.6 % Critically high 43.0-75.0 [facility] Comment on above: Performed By: #### C BC ####[facility] Fnvutnoifo4914 [place] [id number]. Lizandro Hemphill Platelet mean volume (Bld) [Entitic vol] 10.4 fL Normal 9.5-13.5 [facility] Comment on above: Performed By: #### C BC ####[facility] Baqkoogfzd74[address] [place] [phone]. Lizandro Joby PLT 351 103/ul Normal 150-450 [facility] Comment on above: Performed By: #### C BC ####[facility] Vfhvqxspui5655 [place] [id number]. Shanikaannie Joby RBC 3.26 106/ul Critically low 4.20-5.40 [facility] Comment on above: Performed By: #### C BC ####[facility] Stmkkzzzdl37[address] [place] [id number]. Shanikaannie Joby WBC 10.9 103/ul Normal 4.0-11.0 [facility] Comment on above: Performed By: #### C BC ####[facility] Iidezmfoam[address] [place] [address]Dr. Shanikaannie Joby CT HIP LT WO CONon CT HIP LT WO CON Normal The [facility] LIVER PROFILEon 03-06-2022 Albumin [Mass/Vol] 2.6 g/dL Critically low 3.4-5.0 [facility] Comment on above: Performed By: #### L ROXANA BMP ####[facility] Rzxfcafkgg[address] [place], [place] [address]Dr. Lizandro Hemphill Albumin/Globulin [Mass ratio] 0.8 {ratio} Normal [facility] Comment on above: Performed By: #### L ROXANA BMP ####[facility] Vqqqxrlsfr0153 [place] [address]Dr. Lizandro Hemphill ALP [Catalytic activity/Vol] 99 U/L Normal 46-116 [facility] Comment on above: Performed By: #### L ROXANA BMP ####[facility] Svupjuxyqo31[address] [place] [address]Dr. Lizandro Hemphill ALT [Catalytic activity/Vol] 36 U/L Normal 14-59 [facility] Comment on above: Performed By: #### L IVRAUL, BMP ####[facility] Hesqosihjf74[address] [place] [address]Dr. Lizandro Hemphill AST [Catalytic activity/Vol] 38 U/L Critically high 15-37 [facility] Comment on above: Performed By: #### L IVRAUL, BMP ####[facility] Zohlfioihv0633 [place] [address]Dr. Lizandro Hemphill BILI, CONJUGATED 0.0 mg/dL Normal 0.0-0.2 [facility] Comment on above: Performed By: #### L IVER, BMP ####[facility] Hgssyigizi[address] [place], [place] [address]Dr. Lizandro Hemphill Bilirubin [Mass/Vol] 0.1 mg/dL Critically low 0.2-1.0 [facility] Comment on above: Performed By: #### L IVER, BMP ####[facility] Ezlgdvyihv50[address] [place], [place] [address]Dr. Lizandro Hemphill Globulin (S) [Mass/Vol] 3.4 g/dL Normal [facility] Comment on above: Performed By: #### L IVER, BMP ####[facility] Gbstknpbdf[address] [place], [place] [address]Dr. Lizandro Hemphill Protein [Mass/Vol] 6.0 g/dL Critically low 6.4-8.2 [facility] Comment on above: Performed By: #### L IVRAUL, BMP ####[facility] Neqhhhhrge[address] [place], [place] [address]Dr. Lizandro Hemphill PROF CHEM 8 (BAS METB)on Anion gap [Moles/Vol] 11.1 mmol/L Normal [facility] Comment on above: Performed By: #### L IVRAUL, BMP ####[facility] Qekggtiyiw[address] [place], [place] [address]Dr. Lizandro Hemphill Calcium [Mass/Vol] 8.4 mg/dL Critically low 8.5-10.1 [facility] Comment on above: Performed By: #### L IVER, BMP ####[facility] Nhmogomzpf[address] [place], [place] [address]Dr. Lizandro Hemphill Chloride [Moles/Vol] 105 mmol/L Normal 98-107 [facility] Comment on above: Performed By: #### L IVER, BMP ####[facility] Rkevhvowvf[address] [place], [place] [address]Dr. Lizandro Hemphill CO2 [Moles/Vol] 26.6 mmol/L Normal 21.0-32.0 [facility] Comment on above: Performed By: #### L IVER, BMP ####[facility] Xlmigragud4606 [place] [phone]. Lizandro Hemphill Creatinine [Mass/Vol] 0.74 mg/dL Normal 0.55-1.02 [facility] Comment on above: Performed By: #### Diana SCHMIDT, BMP ####[facility] Lzfuhycsoy5583 [place] [phone]. Lizandro Hemphill EGFR-AF CHADIAN >60 Normal >=60 [facility] Comment on above: Performed By: #### Diana SCHMIDT, BMP ####[facility] Sacuivhhzg15[address] [place] [phone]. Lizandro Hemphill EGFR-NON AF CHADIAN >60 Normal >=60 [facility] Comment on above: Performed By: #### Diana SCHMIDT BMP ####[facility] Wkovjxzchp5617 [place] [phone]. Lizandro Hemphill Glucose [Mass/Vol] 104 mg/dL Normal 74-106 [facility] Comment on above: Performed By: #### Diana SCHMIDT BMP ####[facility] Tdksaukkcc0673 [place] [phone]. Lizandro Hemphill Potassium [Moles/Vol] 3.7 mmol/L Normal 3.5-5.1 [facility] Comment on above: Performed By: #### Diana SCHMIDT BMP ####[facility] Ffxcfxcjbl9943 [place] [phone]. Lizandro Hemphill Sodium [Moles/Vol] 139 mmol/L Normal 136-145 [facility] Comment on above: Performed By: #### Diana SCHMIDT, BMP ####[facility] Jpifrrjwkf4458 [place] [phone]. Lizandro Hemphill Urea nitrogen [Mass/Vol] 13.0 mg/dL Normal 7.0-18.0 [facility] Comment on above: Performed By: #### Diana SCHMIDT BMP ####[facility] Xhlcvleirx9218 [place] [phone]. Lizandro Hemphill Urea nitrogen/Creatinin e [Mass ratio] 17.6 mg/mg Normal [facility] Comment on above: Performed By: #### ELSA VERA ####[facility] Tqkiefotau[address] [place], [place] [address]Dr. Lizandro Hemphill PROTIMEon 03-06-2022 INR Coag (PPP) [Relative time] {INR} Normal [facility] Comment on above: Performed By: #### P T ####[facility] Hwkywbabtx[address] [place], [place] [address]Dr. Lizandro Hemphill INR GUIDELINES SEE BELOW Normal [facility] Comment on above: Result Comment: GUEVARA RED INR: 2.0 - 3.0 CONDITIONS NOT LISTED BELOW 2.5 - 3.5 FOR PROSTHETIC HEART VALVE REPLACEMENT 2.5 - 3.5 RECURRENT THROMBOSIS Performed By: #### P T ####[facility] Ozqcdvirzv689[address] [place], [place] [address]Dr. Lizandro Joby PT Coag (PPP) [Time] 9.7 s Normal 9.0-11.6 [facility] Comment on above: Performed By: #### P T ####[facility] Mbksqlspnz8460[address] [place], [place] [address]Dr. Lizandro Joby CBC AUTO DIFFon 03-05-2022 BASO # 0.1 103/ul Normal 0.0-0.1 [facility] Comment on above: Performed By: #### C BC ####[facility] Dugxhhbvhz4[address] [place], [place] [address]Dr. Lizandro Hemphill Basophils/100 WBC (Bld) 0.8 % Normal 0.2-2.0 [facility] Comment on above: Performed By: #### C BC ####[facility] Mdgagvpumi[address] [place], [place] [address]Dr. Lizandro Hemphill EO # 0.1 103/ul Normal 0.0-0.7 [facility] Comment on above: Performed By: #### C BC ####[facility] Wjisfvzdly[address] [place], [place] [address]Dr. Lizandro Hemphill Eosinophils/100 WBC (Bld) 1.1 % Normal 0.9-7.0 [facility] Comment on above: Performed By: #### C BC ####[facility] Qfyxjmyolf4926 [place] [address]Dr. Lizandro Hemphill Erythrocyte distribution width (RBC) [Ratio] 15.8 % Critically high 11.0-15.0 [facility] Comment on above: Performed By: #### C BC ####[facility] Sfgszsrhli8[address] [place], [place] [address]Dr. Lizandro Hemphill Hematocrit (Bld) [Volume fraction] 25.6 % Critically low 36.0-48.0 [facility] Comment on above: Performed By: #### C BC ####[facility] Fwaatisdvx73[address] [place], [place] [address]Dr. Shanikaannie Hemphill Hemoglobin (Bld) [Mass/Vol] 8.6 g/dL Critically low 12.0-16.0 [facility] Comment on above: Performed By: #### C BC ####[facility] Zlhbjsfqdz67[address] [place], [place] [address]Dr. Lizandro Hemphill IG # 0.05 10e3/ul Critically high 0.00-0.03 [facility] Comment on above: Performed By: #### C BC ####[facility] Aprwunfszj4339[address] [place], [place] [address]Dr. Lizandro Hemphill IG % 0.6 % Critically high 0.0-0.5 [facility] Comment on above: Performed By: #### C BC ####[facility] Pjmovvdbkc[address] [place], [place] [address]Dr. Lizandro Hemphill LYMPH # 1.2 103/ul Normal 1.2-3.8 [facility] Comment on above: Performed By: #### C BC ####[facility] Ftwqyrjwcq[address] [place], [place] [address]Dr. Lizandro Hemphill Lymphocytes/100 WBC (Bld) 14.4 % Critically low 20.5-60.0 [facility] Comment on above: Performed By: #### C BC ####[facility] Sqzhiidded8[address] [place], [place] [address]Dr. Lizandro Hemphill MANUAL DIFF REQ NO Normal [facility] Comment on above: Performed By: #### C BC ####[facility] Pqqtlaecoi[address] [place], [place] [address]Dr. Lizandro Hemphill MCH (RBC) [Entitic mass] 29.1 pg Normal 26.7-34.0 [facility] Comment on above: Performed By: #### C BC ####[facility] Vpleyztmvo72[address] [place] [address]Dr. Lizandro Hemphill MCHC (RBC) [Mass/Vol] 33.6 g/dL Normal 29.9-35.2 [facility] Comment on above: Performed By: #### C BC ####[facility] Bwxhelcjox0624 [place] [address]Dr. Lizandro Hemphill MCV (RBC) [Entitic vol] 86.5 fL Normal 81.0-99.0 [facility] Comment on above: Performed By: #### C BC ####[facility] Yywqfwqcbw[address] [place], [place] [address]Dr. Lizandro Joby MONO # 0.7 103/ul Normal 0.3-0.8 [facility] Comment on above: Performed By: #### C BC ####[facility] Hwuafukhrj[address] [place], [place] [address]Dr. Shanikaannie Hemphill Monocytes/100 WBC (Bld) 8.2 % Normal 1.7-12.0 [facility] Comment on above: Performed By: #### C BC ####[facility] Ffxpfmilef87[address] [place], [place] [address]Dr. Lizandro Hemphill NEUT # 6.3 103/ul Normal 1.4-6.5 [facility] Comment on above: Performed By: #### C BC ####[facility] Trsmwrsxie9[address] [place], [place] [address]Dr. Shanikaannie Hemphill Neutrophils/100 WBC (Bld) 74.9 % Normal 43.0-75.0 [facility] Comment on above: Performed By: #### C BC ####[facility] Nhhhehkzrq18[address] [place], [place] [address]Dr. Lizandro Joby Platelet mean volume (Bld) [Entitic vol] 9.8 fL Normal 9.5-13.5 [facility] Comment on above: Performed By: #### C BC ####[facility] Ntoufkzpst50[address] [place], [place] [address]Xe. Lizandro Hemphill PLT 331 103/ul Normal 150-450 [facility] Comment on above: Performed By: #### C BC ####[facility] Lkzrxkubbe5659 [place] [id number]. Lizandro Hemphill RBC 2.96 106/ul Critically low 4.20-5.40 [facility] Comment on above: Performed By: #### C BC ####[facility] Juxsvsjyaz9019 [place] [phone]. Lizandro Hemphill WBC 8.5 103/ul Normal 4.0-11.0 [facility] Comment on above: Performed By: #### C BC ####[facility] Syviwotdio26[address] [place] [phone]. Lizandro Hemphill LIVER PROFILEon 03-05-2022 Albumin [Mass/Vol] 2.4 g/dL Critically low 3.4-5.0 [facility] Comment on above: Performed By: #### Diana SCHMIDT BMP ####[facility] Cwmvkrfagj6698 [place] [phone]. Lizandro Hemphill Albumin/Globulin [Mass ratio] 0.8 {ratio} Normal [facility] Comment on above: Performed By: #### Diana SCHMIDT BMP ####[facility] Uemnjarfdi0072 [place] [phone]. Lizandro Hemphill ALP [Catalytic activity/Vol] 88 U/L Normal 46-116 [facility] Comment on above: Performed By: #### Diana SCHMIDT BMP ####[facility] Xdcxanltfh9565 [place] [phone]. Lizandro Hemphill ALT [Catalytic activity/Vol] 35 U/L Normal 14-59 [facility] Comment on above: Performed By: #### Diana SCHMIDT BMP ####[facility] Assydkhtvp2491 [place] [phone]. Lizandro Hemphill AST [Catalytic activity/Vol] 41 U/L Critically high 15-37 [facility] Comment on above: Performed By: #### L IVER, BMP ####[facility] Ujrdwzdkuq20[address] [place] [address]Dr. Lizandro Hemphill BILI, CONJUGATED 0.1 mg/dL Normal 0.0-0.2 [facility] Comment on above: Performed By: #### L IVER, BMP ####[facility] Zrimmncpgp0346 [place] [address]Dr. Lizandro Hemphill Bilirubin [Mass/Vol] 0.1 mg/dL Critically low 0.2-1.0 [facility] Comment on above: Performed By: #### L IVER, BMP ####[facility] Nkybztpfvn8358 [place] [address]Dr. Lizandro Hemphill Globulin (S) [Mass/Vol] 3.1 g/dL Normal [facility] Comment on above: Performed By: #### L IVRAUL, BMP ####[facility] Moraoziodw[address] [place], [place] [address]Dr. Lizandro Hemphill Protein [Mass/Vol] 5.5 g/dL Critically low 6.4-8.2 [facility] Comment on above: Performed By: #### L IVRAUL, BMP ####[facility] Xwqnspzrbk[address] [place], [place] [address]Dr. Lizandro Hemphill OCC BLD IMMUNOASSAYon 2021 OCCULT BLOOD Positive Abnormal NEGATIVE [facility] Comment on above: Performed By: #### O GREGORIO ####[facility] Djpsvmeswa[address] [place], [place] [address]Dr. Lizandro Hemphill PROF CHEM 8 (BAS METB)on Anion gap [Moles/Vol] 11.2 mmol/L Normal [facility] Comment on above: Performed By: #### L IVER, BMP ####[facility] Kfskdilpou4[address] [place], [place] [address]Dr. Lizandro Hemphill Calcium [Mass/Vol] 7.7 mg/dL Critically low 8.5-10.1 Th [facility] Comment on above: Performed By: #### L IVER, BMP ####[facility] Jgnnjemokc13[address] [place], [place] [address]Dr. Lizandro Hemphill Chloride [Moles/Vol] 108 mmol/L Critically high 98-107 [facility] Comment on above: Performed By: #### Diana SCHMIDT, BMP ####[facility] Drmvfhyfvw1868 [place] [address]Dr. Lizandro Hemphill CO2 [Moles/Vol] 25.4 mmol/L Normal 21.0-32.0 [facility] Comment on above: Performed By: #### Diana SCHMIDT, BMP ####[facility] Tznmkjzrpp1462 [place] [address]Dr. Lizandro Hemphill Creatinine [Mass/Vol] 0.62 mg/dL Normal 0.55-1.02 [facility] Comment on above: Performed By: #### Diana SCHMIDT BMP ####[facility] Hpmyobwrrz26[address] [place] [address]Dr. Lizandro Hemphill EGFR-AF CHADIAN >60 Normal >=60 [facility] Comment on above: Performed By: #### Diana SCHMIDT BMP ####[facility] H[address]nbcyjhqe[address] [place], [place] [address]Dr. Lizandro Hemphill EGFR-NON AF CHADIAN >60 Normal >=60 [facility] Comment on above: Performed By: #### Diana SCHMIDT BMP ####[facility] Omlddhnbyv[address] [place], [place] [address]Dr. Lizandro Hemphill Glucose [Mass/Vol] 115 mg/dL Critically high 74-106 [facility] Comment on above: Performed By: #### Diana SCHMIDT BMP ####[facility] Eldtjozsil60[address] [place], [place] [address]Dr. Lizandro Hemphill Potassium [Moles/Vol] 3.6 mmol/L Normal 3.5-5.1 [facility] Comment on above: Performed By: #### L ROXANA, BMP ####[facility] Berkugjvzx40[address] [place] [address]Dr. Lizandro Hemphill Sodium [Moles/Vol] 141 mmol/L Normal 136-145 [facility] Comment on above: Performed By: #### L ROXANA BMP ####[facility] Xwxuybokki8937 [place] [address]Dr. Lizandro Hemphill Urea nitrogen [Mass/Vol] 9.0 mg/dL Normal 7.0-18.0 [facility] Comment on above: Performed By: #### L ELSA SCHMIDT ####[facility] Fllulvkgcr08[address] [place] [address]Dr. Lizandro Hemphill Urea nitrogen/Creatinin e [Mass ratio] 14.5 mg/mg Normal [facility] Comment on above: Performed By: #### L ELSA SCHMIDT ####[facility] [facility] Twbukpnbdb[address] [place] [address]DrCiro Hemphill PROTIMEon 03-05-2022 INR Coag (PPP) [Relative time] 0.93 {INR} Normal [facility] Comment on above: Performed By: #### P T ####[facility] Qepoivqzoz[address] [place], [place] [address]DrCiro Hemphill INR GUIDELINES SEE BELOW Normal [facility] Comment on above: Result Comment: GUEVARA RED INR: 2.0 - 3.0 CONDITIONS NOT LISTED BELOW 2.5 - 3.5 FOR PROSTHETIC HEART VALVE REPLACEMENT 2.5 - 3.5 RECURRENT THROMBOSIS Performed By: #### P T ####[facility] Gzjfoucavg92[address] [place], [place] [address]DrCiro Hemphill PT Coag (PPP) [Time] 10.1 s Normal 9.0-11.6 [facility] Comment on above: Performed By: #### P T ####[facility] Jxpigokduq104[address] [place], [place] [address]DrCiro Hemphill CBC AUTO DIFFon 03-04-2022 BASO # 0.1 103/ul Normal 0.0-0.1 [facility] Comment on above: Performed By: #### C BC ####[facility] Qjmltxgujs5636[address] [place], [place] [address]DrCiro Hemphill Basophils/100 WBC (Bld) 0.8 % Normal 0.2-2.0 [facility] Comment on above: Performed By: #### C BC ####[facility] Xzvrndrxhn653[address] [place], [place] [address]DrCiro Hemphill EO # 0.1 103/ul Normal 0.0-0.7 [facility] Comment on above: Performed By: #### C BC ####[facility] Fjfttrzdfy24[address] [place] [address]Dr. Shanikaannie Hemphill Eosinophils/100 WBC (Bld) 0.6 % Critically low 0.9-7.0 [facility] Comment on above: Performed By: #### C BC ####[facility] Fiancnoxyz398[address] [place], [place] [address]Dr. Lizandro Hemphill Erythrocyte distribution width (RBC) [Ratio] 15.3 % Critically high 11.0-15.0 [facility] Comment on above: Performed By: #### C BC ####[facility] Iixbnlmdzg4355[address] [place], [place] [address]Dr. Lizandro Hemphill Hematocrit (Bld) [Volume fraction] 30.5 % Critically low 36.0-48.0 [facility] Comment on above: Performed By: #### C BC ####[facility] Bebmuwzkgu3388[address] [place], [place] [address]Dr. Lizandro Hemphill Hemoglobin (Bld) [Mass/Vol] 10.3 g/dL Critically low 12.0-16.0 [facility] Comment on above: Performed By: #### C BC ####[facility] Zwezkdoyhs2790[address] [place], [place] [address]Dr. Lizandro Hemphill IG # 0.05 10e3/ul Critically high 0.00-0.03 [facility] Comment on above: Performed By: #### C BC ####[facility] Lyqzlxamnt1868[address] [place], [place] [address]Dr. Lizandro Hemphill IG % 0.5 % Normal 0.0-0.5 [facility] Comment on above: Performed By: #### C BC ####[facility] Jtflidyjtq9125[address] [place], [place] [address]Dr. Lizandro Hemphill LYMPH # 1.7 103/ul Normal 1.2-3.8 [facility] Comment on above: Performed By: #### C BC ####[facility] Wxjboilxnk8689[address] [place], [place] [address]DrCiro Hemphill Lymphocytes/100 WBC (Bld) 16.1 % Critically low 20.5-60.0 [facility] Comment on above: Performed By: #### C BC ####[facility] Wssxfmltii6261 [place] [address]DrCiro Hemphill MANUAL DIFF REQ NO Normal [facility] Comment on above: Performed By: #### C BC ####[facility] Cuxxaodrqm9274 [place] [address]DrCiro Hemphill MCH (RBC) [Entitic mass] 28.5 pg Normal 26.7-34.0 [facility] Comment on above: Performed By: #### C BC ####[facility] Nilqwdmqhp8207 [place] [address]DrCiro Hemphill MCHC (RBC) [Mass/Vol] 33.8 g/dL Normal 29.9-35.2 [facility] Comment on above: Performed By: #### C BC ####[facility] Fmhasjbfzl326[address] [place], [place] [address]DrCiro Hemphill MCV (RBC) [Entitic vol] 84.5 fL Normal 81.0-99.0 [facility] Comment on above: Performed By: #### C BC ####[facility] Hpcaykacks7058[address] [place], [place] [address]DrCiro Hemphill MONO # 0.7 103/ul Normal 0.3-0.8 [facility] Comment on above: Performed By: #### C BC ####[facility] Cimfvjlzye1218 [place] [address]DrCiro Hemphill Monocytes/100 WBC (Bld) 7.1 % Normal 1.7-12.0 The [facility] Comment on above: Performed By: #### C BC ####[facility] Vwdghztvig9229[address] [place], [place] [address]DrCiro Hemphill NEUT # 7.8 103/ul Critically high 1.4-6.5 [facility] Comment on above: Performed By: #### C BC ####[facility] Ujzcayjhum2332[address] [place], [place] [address]DrCiro Hemphill Neutrophils/100 WBC (Bld) 74.9 % Normal 43.0-75.0 [facility] Comment on above: Performed By: #### C BC ####[facility] [address]ragwdk[address] [place] [id number]. Lizandro Hemphill Platelet mean volume (Bld) [Entitic vol] 9.6 fL Normal 9.5-13.5 [facility] Comment on above: Performed By: #### C BC ####[facility] Ehrtanzmlg5959 [place] [address]Dr. Lizandro Hemphill PLT 374 103/ul Normal 150-450 [facility] Comment on above: Performed By: #### C BC ####[facility] Bwajcalyig7912[address] [place], [place] [address]Dr. Lizandro Hemphill RBC 3.61 106/ul Critically low 4.20-5.40 [facility] Comment on above: Performed By: #### C BC ####[facility] Fnsnwrhlqg451[address] [place], [place] [address]Dr. Lizandro Hemphill WBC 10.4 103/ul Normal 4.0-11.0 The [facility] Comment on above: Performed By: #### C BC ####[facility] Ibqhnivkpy7575[address] [place], [place] [address]Dr. Lizandro Hemphill BASO # 0.1 103/ul Normal 0.0-0.1 The [facility] Comment on above: Performed By: #### C BC ####[facility] Olxpyxqmbm301[address] [place], [place] [id number]. Lizandro Hemphill Basophils/100 WBC (Bld) 0.8 % Normal 0.2-2.0 The [facility] Comment on above: Performed By: #### C BC ####[facility] Vbsptntppq600[address] [place], [place] [id number]. Lizandro Hemphill EO # 0.1 103/ul Normal 0.0-0.7 The [facility] Comment on above: Performed By: #### C BC ####[facility] Deyezibqgj16[address] [place], [place] [id number]. Lizandro Hemphill Eosinophils/100 WBC (Bld) 0.6 % Critically low 0.9-7.0 The [facility] Comment on above: Performed By: #### C BC ####[facility] Otrbdailxa0843 [place] [address]Dr. Lizandro Hemphill Erythrocyte distribution width (RBC) [Ratio] 15.1 % Critically high 11.0-15.0 The [facility] Comment on above: Performed By: #### C BC ####[facility] Rmfgcmxcfq261[address] [place], [place] [address]Dr. Lizandro Hemphill Hematocrit (Bld) [Volume fraction] 25.7 % Critically low 36.0-48.0 The [facility] Comment on above: Performed By: #### C BC ####[facility] Rcxayspukf996[address] [place], [place] [address]Dr. Shanikaannie Joby Hemoglobin (Bld) [Mass/Vol] 8.4 g/dL Critically low 12.0-16.0 The [facility] Comment on above: Result Comment: aurora mcclendon given Performed By: #### C BC ####[facility] Wpdxttavaj7616[address] [place], [place] [address]Dr. Shanikaannie Joby IG # 0.07 10e3/ul Critically high 0.00-0.03 [facility] Comment on above: Performed By: #### C BC ####[facility] Xdlaboocnx135128 [address] [place], [place] [address]Dr. Shanikaannie Joby IG % 0.6 % Critically high 0.0-0.5 [facility] Comment on above: Performed By: #### C BC ####[facility] Tstwswyogw2158[address] [place], [place] [address]Dr. Lizandro Hemphill LYMPH # 1.5 103/ul Normal 1.2-3.8 The [facility] Comment on above: Performed By: #### C BC ####[facility] Ujrcredtdb8807[address] [place], [place] [address]Dr. Shanikaannie Joby Lymphocytes/100 WBC (Bld) 13.3 % Critically low 20.5-60.0 The [facility] Comment on above: Performed By: #### C BC ####[facility] Vysztjmiyr933[address] [place], [place] [address]Dr. Shanikaannie Hemphill MANUAL DIFF REQ NO Normal [facility] Comment on above: Performed By: #### C BC ####[facility] Indhatvcgy9476 [place] [address]Dr. Lizandro Hemphill MCH (RBC) [Entitic mass] 28.4 pg Normal 26.7-34.0 The [facility] Comment on above: Performed By: #### C BC ####[facility] Gvuhryhkgz5558[address] [place], [place] [address]Dr. Lizandro Joby MCHC (RBC) [Mass/Vol] 32.7 g/dL Normal 29.9-35.2 The [facility] Comment on above: Performed By: #### C BC ####[facility] Xitvtkqiyy7114[address] [place], [place] [address]Dr. Lizandro Joby MCV (RBC) [Entitic vol] 86.8 fL Normal 81.0-99.0 The [facility] Comment on above: Performed By: #### C BC ####[facility] Hwwicztxaz128[address] [place], [place] [address]Dr. Lizandro Joby MONO # 0.9 103/ul Critically high 0.3-0.8 [facility] Comment on above: Performed By: #### C BC ####[facility] Baurprtxcd253[address] [place], [place] [address]Dr. Lizandro Hemphill Monocytes/100 WBC (Bld) 8.2 % Normal 1.7-12.0 The [facility] Comment on above: Performed By: #### C BC ####[facility] Xzmfvqyjit1469[address] [place], [place] [address]Dr. Shanikaannie Joby NEUT # 8.7 103/ul Critically high 1.4-6.5 [facility] Comment on above: Performed By: #### C BC ####[facility] Kqnufhvmii6479[address] [place], [place] [address]Dr. Lizandro Hemphill Neutrophils/100 WBC (Bld) 76.5 % Critically high 43.0-75.0 The [facility] Comment on above: Performed By: #### C BC ####[facility] Otonplspcm9683 [place] [address]Dr. Lizandro Hemphill Platelet mean volume (Bld) [Entitic vol] 10.2 fL Normal 9.5-13.5 The [facility] Comment on above: Performed By: #### C BC ####[facility] Rbskrntaol5024 [place] [address]Dr. Shanikaannie Joby PLT 287 103/ul Normal 150-450 The [facility] Comment on above: Performed By: #### C BC ####[facility] Tdgtjwnxgh2519 [place] [address]Dr. Lizandro Hemphill RBC 2.96 106/ul Critically low 4.20-5.40 [facility] Comment on above: Performed By: #### C BC ####[facility] Bbjqxdbzvc7030[address] [place], [place] [address]Dr. Lizandro Hemphill WBC 11.4 103/ul Critically high 4.0-11.0 The [facility] Comment on above: Performed By: #### C BC ####[facility] Uqwoukkyko469[address] [place], [place] [address]Dr. Lizandro Hemphill CT ABD/PELVIS WO CONon 03-04 CT ABD/PELVIS WO CON Normal [facility] PROF CHEM 8 (BAS METB)on Anion gap [Moles/Vol] 12.4 mmol/L Normal The [facility] Comment on above: Performed By: #### B MP ####[facility] Lqdpphhhmw504[address] [place], [place] [address]Dr. Lizandro Hemphill Calcium [Mass/Vol] 8.0 mg/dL Critically low 8.5-10.1 Th [facility] Comment on above: Performed By: #### B MP ####[facility] Lkztfkxkcx4040 [place] [address]Dr. Lizandro Hemphill Chloride [Moles/Vol] 106 mmol/L Normal 98-107 The [facility] Comment on above: Performed By: #### B MP ####[facility] Piuzphfopn7377[address] [place], [place] [address]Dr. Lizandro Hemphill CO2 [Moles/Vol] 24.3 mmol/L Normal 21.0-32.0 The [facility] Comment on above: Performed By: #### B MP ####[facility] Lwpocrzgak4061 [place] [address]Dr. Lizandro Hemphill Creatinine [Mass/Vol] 0.85 mg/dL Normal 0.55-1.02 [facility] Comment on above: Performed By: #### B MP ####[facility] Zbfpwezwfx8243 [place] [address]Dr. Lizandro Hemphill EGFR-AF CHADIAN >60 Normal >=60 The [facility] Comment on above: Performed By: #### B MP ####[facility] Luhjamodzy6723 [place] [address]Dr. Lizandro Hemphill EGFR-NON AF CHADIAN >60 Normal >=60 [facility] Comment on above: Performed By: #### B MP ####[facility] Zjklasgzax214[address] [place], [place] [address]Dr. Lizandro Hemphill Glucose [Mass/Vol] 91 mg/dL Normal 74-106 [facility] Comment on above: Performed By: #### B MP ####[facility] Zjxeoxyblf3096[address] [place], [place] [address]Dr. Lizandro Hemphill Potassium [Moles/Vol] 3.7 mmol/L Normal 3.5-5.1 The [facility] Comment on above: Performed By: #### B MP ####[facility] Zfnrbrtkob6272 [place] [address]Dr. Lizandro Joby Sodium [Moles/Vol] 139 mmol/L Normal 136-145 [facility] Comment on above: Performed By: #### B MP ####[facility] Bcoemlnpuw0921 [place] [address]Dr. Lizandro Hemphill Urea nitrogen [Mass/Vol] 24.0 mg/dL Critically high 7.0-18.0 The [facility] Comment on above: Performed By: #### B MP ####[facility] Dpnzskjtgy7711 [place] [address]Dr. Shanikaannie Joby Urea nitrogen/Creatinin e [Mass ratio] 28.2 mg/mg Normal The [facility] Comment on above: Performed By: #### B MP ####[facility] Myzktaiigo9940 [place] [address]Dr. Lizandro Hemphill PROTIMEon 03-04-2022 INR Coag (PPP) [Relative time] 1.08 {INR} Normal The [facility] Comment on above: Performed By: #### P T ####[facility] Vuolmyiorq8543 [place] [address]Dr. Lizandro Hemphill INR GUIDELINES SEE BELOW Normal [facility] Comment on above: Result Comment: GUEVARA RED INR: 2.0 - 3.0 CONDITIONS NOT LISTED BELOW 2.5 - 3.5 FOR PROSTHETIC HEART VALVE REPLACEMENT 2.5 - 3.5 RECURRENT THROMBOSIS Performed By: #### P T ####[facility] Djrcrgdjwf5736[address] [place], [place] [address]Dr. Lizandro Hemphill PT Coag (PPP) [Time] 11.6 s Normal 9.0-11.6 The [facility] Comment on above: Performed By: #### P T ####[facility] Eegdpoymnv1601[address] [place], [place] [address]Dr. Shanikaannie Hemphill BNPon 03-03-2022 Natriuretic peptide B (Bld) [Mass/Vol] 71.0 pg/mL Normal <=900.0 The [facility] Comment on above: Performed By: #### H STROPN, LIPA, BNP, CMP ####[facility] Yxctgrprtp961[address] [place], [place] [address]Dr. Lizandro Hemphill CBC AUTO DIFFon 03-03-2022 BASO # 0.1 103/ul Normal 0.0-0.1 The [facility] Comment on above: Performed By: #### C BC ####[facility] Qzalpyuxop3210[address] [place], [place] [address]Dr. Lizandro Hemphill Basophils/100 WBC (Bld) 0.7 % Normal 0.2-2.0 The [facility] Comment on above: Performed By: #### C BC ####[facility] Zlrqerjlsx176[address] [place], [place] [address]Dr. Lizandro Hemphill EO # 0.0 103/ul Normal 0.0-0.7 The [facility] Comment on above: Performed By: #### C BC ####[facility] Azvbnauzai1081 [place] [address]Dr. Lizandro Hemphill Eosinophils/100 WBC (Bld) 0.2 % Critically low 0.9-7.0 [facility] Comment on above: Performed By: #### C BC ####[facility] Hgpcpbjsdm3809 [place] [address]Dr. Lizandro Hemphill Erythrocyte distribution width (RBC) [Ratio] 16.3 % Critically high 11.0-15.0 [facility] Comment on above: Performed By: #### C BC ####[facility] Xpcjsfjqtr660[address] [place], [place] [address]Dr. Lizandro Hemphill Hematocrit (Bld) [Volume fraction] 17.3 % Critically low 36.0-48.0 [facility] Comment on above: Performed By: #### C BC ####[facility] Ntrfsltaso4627[address] [place], [place] [address]Dr. Lizandro Hemphill Hemoglobin (Bld) [Mass/Vol] 6.2 g/dL Critically low 12.0-16.0 [facility] Comment on above: Performed By: #### C BC ####[facility] Tlhllkmbwv3964[address] [place], [place] [address]Dr. Lizandro Hemphill IG # 0.09 10e3/ul Critically high 0.00-0.03 [facility] Comment on above: Performed By: #### C BC ####[facility] Dxeqrfvnim5925[address] [place], [place] [address]Dr. Lizandro Hemphill IG % 0.7 % Critically high 0.0-0.5 [facility] Comment on above: Performed By: #### C BC ####[facility] Exgcrdskrq9248[address] [place], [place] [address]Dr. Lizandro Hemphill LYMPH # 2.2 103/ul Normal 1.2-3.8 The [facility] Comment on above: Performed By: #### C BC ####[facility] Tumttfphfr0470[address] [place], [place] [address]Dr. Lizandro Hemphill Lymphocytes/100 WBC (Bld) 16.1 % Critically low 20.5-60.0 [facility] Comment on above: Performed By: #### C BC ####[facility] Edukbhcyti4[address] [place] [address]Dr. Lizandro Hemphill MANUAL DIFF REQ NO Normal [facility] Comment on above: Performed By: #### C BC ####[facility] Wnzjfmigjh8509 [place] [id number]. Lizandro Hemphill MCH (RBC) [Entitic mass] 30.0 pg Normal 26.7-34.0 The [facility] Comment on above: Performed By: #### C BC ####[facility] Rxpnzcynjl4118 [place] [address]Dr. Lizandro Hemphill MCHC (RBC) [Mass/Vol] 35.8 g/dL Critically high 29.9-35.2 The [facility] Comment on above: Performed By: #### C BC ####[facility] Nnrjzxxfkl930[address] [place], [place] [address]Dr. Lizandro Hemphill MCV (RBC) [Entitic vol] 83.6 fL Normal 81.0-99.0 [facility] Comment on above: Performed By: #### C BC ####[facility] Ieywqnvgiy9034[address] [place], [place] [address]Dr. Lizandro Hemphill MONO # 1.0 103/ul Critically high 0.3-0.8 [facility] Comment on above: Performed By: #### C BC ####[facility] Cxgflxopcw1586[address] [place], [place] [address]Dr. Lizandro Hemphill Monocytes/100 WBC (Bld) 7.2 % Normal 1.7-12.0 The [facility] Comment on above: Performed By: #### C BC ####[facility] Gkklktghat59[address] [place], [place] [address]DrCiro Hemphill NEUT # 10.3 103/ul Critically high 1.4-6.5 The [facility] Comment on above: Performed By: #### C BC ####[facility] Kxjlbjpfdw714[address] [place], [place] [address]DrCiro Hemphill Neutrophils/100 WBC (Bld) 75.1 % Critically high 43.0-75.0 [facility] Comment on above: Performed By: #### C BC ####[facility] Uccqgzmsdr2930 [place] [id number]. Lizandro Hemphill Platelet mean volume (Bld) [Entitic vol] 10.0 fL Normal 9.5-13.5 [facility] Comment on above: Performed By: #### C BC ####[facility] Pjdcovxpcb9256 [place] [address]Dr. Lizandro Hemphill PLT 412 103/ul Normal 150-450 The [facility] Comment on above: Performed By: #### C BC ####[facility] Jynsjkfzfg6375 [place] [id number]. Lizandro Hemphill RBC 2.07 106/ul Critically low 4.20-5.40 [facility] Comment on above: Performed By: #### C BC ####[facility] Bcvyzburaz7136 [place] [address]Dr. Lizandro Hemphill WBC 13.7 103/ul Critically high 4.0-11.0 The [facility] Comment on above: Performed By: #### C BC ####[facility] Xxxadgcwlz4136 [place] [address]Dr. Lizandro Hemphill BASO # 0.1 103/ul Normal 0.0-0.1 The [facility] Comment on above: Performed By: #### C BC ####[facility] [address]lxowndwq7[address] [place] [address]Dr. Lizandro Hemphill Basophils/100 WBC (Bld) 0.6 % Normal 0.2-2.0 [facility] Comment on above: Performed By: #### C BC ####[facility] Uutmtokkta0592 [place] [id number]. Lizandro Hemphill EO # 0.0 103/ul Normal 0.0-0.7 [facility] Comment on above: Performed By: #### C BC ####[facility] Lxseiorhmj9914 [place] [id number]. Lizandro Hemphill Eosinophils/100 WBC (Bld) 0.2 % Critically low 0.9-7.0 [facility] Comment on above: Performed By: #### C BC ####[facility] Hilvyytauy2295 [place] [address]Dr. Lizandro Hemphill Erythrocyte distribution width (RBC) [Ratio] 16.4 % Critically high 11.0-15.0 [facility] Comment on above: Performed By: #### C BC ####[facility] Kgjzpkxjkv3125 [place] [address]Dr. Lizandro Hemphill Hematocrit (Bld) [Volume fraction] 19.1 % Critically low 36.0-48.0 [facility] Comment on above: Performed By: #### C BC ####[facility] Omrwbmzggy[address] [place], [place] [address]Dr. Lizandro Hemphill Hemoglobin (Bld) [Mass/Vol] 6.3 g/dL Critically low 12.0-16.0 [facility] Comment on above: Performed By: #### C BC ####[facility] Vwsglgvpkz26[address] [place], [place] [address]Dr. Lizandro Hemphill IG # 0.09 10e3/ul Critically high 0.00-0.03 [facility] Comment on above: Performed By: #### C BC ####[facility] Zzxwnclldp[address] [place], [place] [address]Dr. Lizandro Hemphill IG % 0.6 % Critically high 0.0-0.5 [facility] Comment on above: Performed By: #### C BC ####[facility] Pektplseqm[address] [place], [place] [address]DrCiro Lizandro Hemphill LYMPH # 1.7 103/ul Normal 1.2-3.8 [facility] Comment on above: Performed By: #### C BC ####[facility] Tldgvzouyv[address] [place], [place] [address]DrCiro Lizandro Hemphill Lymphocytes/100 WBC (Bld) 11.9 % Critically low 20.5-60.0 [facility] Comment on above: Performed By: #### C BC ####[facility] Kcaeupxtwj00[address] [place], [place] [address]DrCiro Lizandro Hemphill MANUAL DIFF REQ NO Normal [facility] Comment on above: Performed By: #### C BC ####[facility] Jdkfwfqqvn0280 [place] [id number]. Lizandro Joby MCH (RBC) [Entitic mass] 28.4 pg Normal 26.7-34.0 [facility] Comment on above: Performed By: #### C BC ####[facility] Cjkfatpvub2369 [place] [address]Dr. Shanikaannie Joby MCHC (RBC) [Mass/Vol] 33.0 g/dL Normal 29.9-35.2 [facility] Comment on above: Performed By: #### C BC ####[facility] Fwrlqqdyhe2380 [place] [address]Dr. Lizandro Hemphill MCV (RBC) [Entitic vol] 86.0 fL Normal 81.0-99.0 [facility] Comment on above: Performed By: #### C BC ####[facility] Njnuyhxcvv[address] [place], [place] [address]Dr. Lizandro Hemphill MONO # 0.9 103/ul Critically high 0.3-0.8 [facility] Comment on above: Performed By: #### C BC ####[facility] Lmrwrccuef2[address] [place], [place] [address]Dr. Lizandro Hemphill Monocytes/100 WBC (Bld) 6.1 % Normal 1.7-12.0 [facility] Comment on above: Performed By: #### C BC ####[facility] Xqxtbvujeq0940[address] [place], [place] [address]Dr. Lizandro Hemphill NEUT # 11.7 103/ul Critically high 1.4-6.5 [facility] Comment on above: Performed By: #### C BC ####[facility] Echxsgjiag[address] [place], [place] [id number] Hemphill Neutrophils/100 WBC (Bld) 80.6 % Critically high 43.0-75.0 [facility] Comment on above: Performed By: #### C BC ####[facility] Ieldzczrwj33[address] [place], [place] [address]DrCiro Hemphill Platelet mean volume (Bld) [Entitic vol] 10.1 fL Normal 9.5-13.5 [facility] Comment on above: Performed By: #### C BC ####[facility] Cypsmghjfx[address] [place], [place] [address]Fu. Lizandro Hemphill PLT 449 103/ul Normal 150-450 [facility] Comment on above: Performed By: #### C BC ####[facility] Mwoyawgsya0522 [place], [place] [address]Xb. Lizandro Hemphill RBC 2.22 106/ul Critically low 4.20-5.40 [facility] Comment on above: Performed By: #### C BC ####[facility] Iixskoimge6867 [place], [place] [address]Lb. Lizandro Hemphill WBC 14.6 103/ul Critically high 4.0-11.0 [facility] Comment on above: Performed By: #### C BC ####[facility] Trzvgwdrsa9586 [place], [place] [address]Jk. Lizandro Hemphill Covid-19 PCR (CVDTB)on SARS-CoV-2 (COVID-19) RNA VERIOT+probe Ql (Unsp spec) Not detected Normal NOT DETECTED [facility] Comment on above: Result Comment: When diagnostic testing is negative, the possibility of a false negative should be considered inthe context of a patient's recent exposures and the presence of clinical signs and symptomsconsistent with SARS-CoV-2.This test is not yet approved or cleared by the [place] FDA. When there are no FDA-approved or cleared tests available, and other criteria are met, FDA can make tests available under an emergency access mechanism called an Emergency Use Authorization (EUA). The EUA for this test is supported by the Street Vendor of Health and Human Service's declaration that circumstances exist to justify the emergency use of in vitro diagnostics for the detection and/or diagnosis of the virus that causes COVID-19. This EUA will remain in effect for the duration of the COVID-19 declaration justifying emergency of IVDs, unless it is terminated or revoked by the FDA (after which the test may no longer be used). Performed By: #### C VDTBH ####[facility] Chuqyejexx57[address] [place] [address]Dr. Lizandro Hemphill LACTATE/LACTIC ACIDon 2021 Lactate [Moles/Vol] 1.4 mmol/L Normal 0.4-1.9 [facility] Comment on above: Performed By: #### L ACT ####[facility] Ewuatdxybj6516 [place] [address]Dr. Lizandro Hemphill Lactate [Moles/Vol] 2.0 mmol/L Critically high 0.4-1.9 [facility] Comment on above: Performed By: #### L ACT ####[facility] Mgywmnllzl7373 [place] [address]Dr. Lizandro Hemphill LIPASEon 03-03-2022 Lipase [Catalytic activity/Vol] 135.0 U/L Normal 73.0-393.0 [facility] Comment on above: Performed By: #### H STROPN, LIPA, BNP, CMP ####[facility] Grprbpjhgw7579 [place] [address]Dr. Lizandro Hemphill PROF 14(COMP METB)on 022 Albumin [Mass/Vol] 2.8 g/dL Critically low 3.4-5.0 [facility] Comment on above: Performed By: #### H STROPN, LIPA, BNP, CMP ####[facility] Qfdnbbfcju2047 [place] [address]Dr. Lizandro Hemphill Albumin/Globulin [Mass ratio] 0.9 {ratio} Normal [facility] Comment on above: Performed By: #### H STROPN, LIPA, BNP, CMP ####[facility] Jzlpkncvzv3615 [place] [address]Dr. Lizandro Hemphill ALP [Catalytic activity/Vol] 96 U/L Normal 46-116 [facility] Comment on above: Performed By: #### H STROPN, LIPA, BNP, CMP ####[facility] Juebwapnbv3406 [place] [address]Dr. Lizandro Hemphill ALT [Catalytic activity/Vol] 44 U/L Normal 14-59 [facility] Comment on above: Performed By: #### H STROPN, LIPA, BNP, CMP ####[facility] Knffkqqhro5010 [place] [address]Dr. Lizandro Hemphill Anion gap [Moles/Vol] 14.6 mmol/L Normal [facility] Comment on above: Performed By: #### H STROPN, LIPA, BNP, CMP ####[facility] Uckqnipivo4850 [place] [address]Dr. Lizandro Hemphill AST [Catalytic activity/Vol] 46 U/L Critically high 15-37 [facility] Comment on above: Performed By: #### H STROPN, LIPA, BNP, CMP ####[facility] Eeqpapkood5499 [place] [address]Dr. Lizandro Hemphill Bilirubin [Mass/Vol] 0.2 mg/dL Normal 0.2-1.0 [facility] Comment on above: Performed By: #### H STROPN, LIPA, BNP, CMP ####[facility] Owkjpjbvom[address] [place], [place] [address]Dr. Lizandro Hemphill Calcium [Mass/Vol] 8.8 mg/dL Normal 8.5-10.1 [facility] Comment on above: Performed By: #### H STROPN, LIPA, BNP, CMP ####[facility] Hdhhozmpch[address] [place], [place] [address]Dr. Lizandro Hemphill Chloride [Moles/Vol] 105 mmol/L Normal 98-107 [facility] Comment on above: Performed By: #### H STROPN, LIPA, BNP, CMP ####[facility] Zeoxvsjljj[address] [place], [place] [address]Dr. Lizandro Hemphill CO2 [Moles/Vol] 22.9 mmol/L Normal 21.0-32.0 [facility] Comment on above: Performed By: #### H STROPN, LIPA, BNP, CMP ####[facility] Xwtusmuzje9[address] [place], [place] [address]Dr. Lizandro Hemphill Creatinine [Mass/Vol] 1.07 mg/dL Critically high 0.55-1.02 [facility] Comment on above: Performed By: #### H STROPN, LIPA, BNP, CMP ####[facility] Fidcjygceo59[address] [place] [address]Dr. Lizandro Hemphill EGFR-AF CHADIAN 63 mL/min/1.73m2 Normal >=60 Th [facility] Comment on above: Performed By: #### H STROPN, LIPA, BNP, CMP ####[facility] Azsppkppcd0930 [place] [address]Dr. Lizandro Hemphill EGFR-NON AF CHADIAN 52 mL/min/1.73m2 Critically low >=60 [facility] Comment on above: Performed By: #### H STROPN, LIPA, BNP, CMP ####[facility] Dxlahwzvle6372 [place] [address]Dr. Lizandro Hemphill Globulin (S) [Mass/Vol] 3.1 g/dL Normal [facility] Comment on above: Performed By: #### H STROPN, LIPA, BNP, CMP ####[facility] Ydozfdpfeo1208 [place] [address]Dr. Lizandro Hemphill Glucose [Mass/Vol] 123 mg/dL Critically high 74-106 [facility] Comment on above: Performed By: #### H STROPN, LIPA, BNP, CMP ####[facility] Dmnavtcqly4799 [place] [address]Dr. Lizandro Hemphill Potassium [Moles/Vol] 3.5 mmol/L Normal 3.5-5.1 [facility] Comment on above: Performed By: #### H STROPN, LIPA, BNP, CMP ####[facility] Yjedzmwcls6451 [place] [address]Dr. Lizandro Hemphill Protein [Mass/Vol] 5.9 g/dL Critically low 6.4-8.2 Th [facility] Comment on above: Performed By: #### H STROPN, LIPA, BNP, CMP ####[facility] Akoljtdimr4318 [place] [address]Dr. Lizandro Hemphill Sodium [Moles/Vol] 139 mmol/L Normal 136-145 [facility] Comment on above: Result Comment: kennedy sly lipemic sample Performed By: #### H STROPN, LIPA, BNP, CMP ####[facility] Addkomhxic4887 [place] [address]Dr. Lizandro Hemphill Urea nitrogen [Mass/Vol] 37.0 mg/dL Critically high 7.0-18.0 [facility] Comment on above: Performed By: #### H STROPN, LIPA, BNP, CMP ####[facility] Ndlfohonmm3427 [place] [address]Dr. Lizandro Hemphill Urea nitrogen/Creatinin e [Mass ratio] 34.6 mg/mg Normal [facility] Comment on above: Performed By: #### H STROPN, LIPA, BNP, CMP ####[facility] Iaxqzrxtvn[address] [place], [place] [address]Dr. Lizandro Hemphill PROTIMEon 03-03-2022 INR Coag (PPP) [Relative time] 1.18 {INR} Normal [facility] Comment on above: Performed By: #### P T ####[facility] Uaexiattxy47[address] [place], [place] [address]Dr. Lizandro Hemphill INR GUIDELINES SEE BELOW Normal [facility] Comment on above: Result Comment: GUEVARA RED INR: 2.0 - 3.0 CONDITIONS NOT LISTED BELOW 2.5 - 3.5 FOR PROSTHETIC HEART VALVE REPLACEMENT 2.5 - 3.5 RECURRENT THROMBOSIS Performed By: #### P T ####[facility] Uaqqzldqcy16[address] [place], [place] [address]Dr. Lizandro Hemphill PT Coag (PPP) [Time] 12.6 s Critically high 9.0-11.6 [facility] Comment on above: Performed By: #### P T ####[facility] Ptgxdxjnxi4[address] [place], [place] [address]Dr. Lizandro Hemphill INR Coag (PPP) [Relative time] 1.22 {INR} Normal [facility] Comment on above: Performed By: #### P T, PTT ####[facility] Mbzhxtagme7[address] [place], [place] [address]Dr. Lizandro Hemphill INR GUIDELINES SEE BELOW Normal [facility] Comment on above: Result Comment: GUEVARA RED INR: 2.0 - 3.0 CONDITIONS NOT LISTED BELOW 2.5 - 3.5 FOR PROSTHETIC HEART VALVE REPLACEMENT 2.5 - 3.5 RECURRENT THROMBOSIS Performed By: #### P T, PTT ####[facility] Czxgurinzn2091 [place] [id number]. Lizandro Hemphill PT Coag (PPP) [Time] 13.0 s Critically high 9.0-11.6 [facility] Comment on above: Performed By: #### P T, PTT ####[facility] Pctesafgas8200 [place] [id number]. Lizandro Hemphill PTTon 03-03-2022 aPTT Coag (Bld) [Time] 23.1 s Normal 22.3-36.2 [facility] Comment on above: Performed By: #### P T, PTT ####[facility] Qpdbwgqqev8386 [place] [address]Dr. Lizandro Hemphill TROPONIN, HIGH SENSITIVITYon 03-03-2022 HSTROP 7.5 pg/mL Normal 4.0-51.3 [facility] Comment on above: Result Comment: CUT- OFF POINTS HAVE BEEN ESTABLISHED BASED ON THE FOURTH UNIVERSAL DEFINITIONS OF MYOCARDIALINFARCTION. THE UPPER REFERENCE LIMIT (URL) OF TROPONIN, DEFINED THE 99TH PERCENTILE OFcTnI DISTRIBUTION IN A REFERENCE POPULATION, HAS BEEN CONFIRMED THE DECISION THRESHOLDFOR [place] DIAGNOSIS. Performed By: #### H STROPN, LIPA, BNP, CMP ####[facility] Riexqgbhxm7076 [place] [address]Dr. Lizandro Hemphill TYPE AND SCREENon 03-03-2022 TYPE AND SCREEN Negative Normal [facility] Comment on above: Performed By: #### T NS ####[facility] Xykyvjxjxf8961 [place] [address]Dr. Lizandro Hemphill CT HIP LT WO CONon 2 CT HIP LT WO CON Normal [facility] XR HIP LT 2 3V W PELVISon XR HIP LT 2 3V W PELVIS Normal [facility] CT CSPINE WO CONon 2 CT CSPINE WO CON Normal [facility] PRBC LEUKOREDUCEDon 02-03-20 22 PRBC LEUKOREDUCED Normal [facility] Comment on above: Performed By: #### P RBC ####[facility] Tzfkdcqckj2641 [place] [id number]. Lizandro Hemphill US VENOUS DOPPLER L Monty US VENOUS DOPPLER L ARM Normal [facility] CBC AUTO DIFFon 01-27-2022 BASO # 0.1 103/ul Normal 0.0-0.1 [facility] Comment on above: Performed By: #### C BC ####[facility] Rlcbakxlns5421 [place] [address]Dr. Lizandro Hemphill Basophils/100 WBC (Bld) 0.5 % Normal 0.2-2.0 [facility] Comment on above: Performed By: #### C BC ####[facility] Mjbgsvodxh[address] [place], [place] [address]Dr. Lizandro Hemphill EO # 0.1 103/ul Normal 0.0-0.7 [facility] Comment on above: Performed By: #### C BC ####[facility] Aedngrznuh050[address] [place], [place] [address]Dr. Lizandro Hemphill Eosinophils/100 WBC (Bld) 1.1 % Normal 0.9-7.0 [facility] Comment on above: Performed By: #### C BC ####[facility] Yquzewrfev[address] [place], [place] [address]Dr. Lizandro Hemphill Erythrocyte distribution width (RBC) [Ratio] 16.9 % Critically high 11.0-15.0 [facility] Comment on above: Performed By: #### C BC ####[facility] Vuowmkbxog7[address] [place], [place] [address]Dr. Lizandro Hemphill Hematocrit (Bld) [Volume fraction] 27.9 % Critically low 36.0-48.0 [facility] Comment on above: Performed By: #### C BC ####[facility] Qanxiveait2819[address] [place], [place] [address]Dr. Lizandro Hemphill Hemoglobin (Bld) [Mass/Vol] 9.1 g/dL Critically low 12.0-16.0 [facility] Comment on above: Performed By: #### C BC ####[facility] Rhkrlxrojk27[address] [place], [place] [address]DrCiro Hemphill IG # 0.05 10e3/ul Critically high 0.00-0.03 [facility] Comment on above: Performed By: #### C BC ####[facility] Bqcraknxje4445 [place] [address]DrCiro Hemphill IG % 0.5 % Normal 0.0-0.5 [facility] Comment on above: Performed By: #### C BC ####[facility] Tzdtcdylpc0566 [place] [address]DrCiro Hemphill LYMPH # 1.9 103/ul Normal 1.2-3.8 [facility] Comment on above: Performed By: #### C BC ####[facility] Dlhwfmwhrq8055 [place] [address]DrCiro Hemphill Lymphocytes/100 WBC (Bld) 20.2 % Critically low 20.5-60.0 [facility] Comment on above: Performed By: #### C BC ####[facility] Swrwmxiihe[address] [place], [place] [address]DrCiro Hemphill MANUAL DIFF REQ NO Normal [facility] Comment on above: Performed By: #### C BC ####[facility] Vyvrbjeeiz5[address] [place], [place] [address]DrCiro Hemphill MCH (RBC) [Entitic mass] 29.7 pg Normal 26.7-34.0 [facility] Comment on above: Performed By: #### C BC ####[facility] Uznfqqwfka23[address] [place], [place] [address]DrCiro Hemphill MCHC (RBC) [Mass/Vol] 32.6 g/dL Normal 29.9-35.2 [facility] Comment on above: Performed By: #### C BC ####[facility] Ofqyxkzyop267[address] [place], [place] [address]DrCiro Hemphill MCV (RBC) [Entitic vol] 91.2 fL Normal 81.0-99.0 [facility] Comment on above: Performed By: #### C BC ####[facility] Gbsfqcuogp[address]01[address] [place], [place] [address]DrCiro Hemphill MONO # 1.0 103/ul Critically high 0.3-0.8 [facility] Comment on above: Performed By: #### C BC ####[facility] Gpistnlvgi7860 [place] [id number]. Lizandro Hemphill Monocytes/100 WBC (Bld) 10.9 % Normal 1.7-12.0 [facility] Comment on above: Performed By: #### C BC ####[facility] Gxaoottqxo1609 [place] [address]Dr. Lizandro Hemphill NEUT # 6.2 103/ul Normal 1.4-6.5 [facility] Comment on above: Performed By: #### C BC ####[facility] Rpjledhbiq6338 [place] [address]DrCiro Lizandro Hemphill Neutrophils/100 WBC (Bld) 66.8 % Normal 43.0-75.0 [facility] Comment on above: Performed By: #### C BC ####[facility] Pskspvojou989[address] [place], [place] [address]Dr. Lizandro Hemphill Platelet mean volume (Bld) [Entitic vol] 11.0 fL Normal 9.5-13.5 [facility] Comment on above: Performed By: #### C BC ####[facility] Mpixcvrkqk[address] [place], [place] [address]Dr. Lizandro Hemphill PLT 189 103/ul Normal 150-450 [facility] Comment on above: Performed By: #### C BC ####[facility] Fquvhszojx8833 [place] [id number]. Lizandro Hemphill RBC 3.06 106/ul Critically low 4.20-5.40 [facility] Comment on above: Performed By: #### C BC ####[facility] Ucssyymxqi4228 [place] [id number] Lizandro Hemphill WBC 9.3 103/ul Normal 4.0-11.0 [facility] Comment on above: Performed By: #### C BC ####[facility] Slnuwpeqna[address] [place], [place] [address]DrCiro Hemphill PROF 14(COMP METB)on 022 Albumin [Mass/Vol] 2.7 g/dL Critically low 3.4-5.0 [facility] Comment on above: Performed By: #### C MP ####[facility] Viucolcwke9037 [place] [address]Dr. Lizandro Hemphill Albumin/Globulin [Mass ratio] 0.9 {ratio} Normal [facility] Comment on above: Performed By: #### C MP ####[facility] Fmthvtgqwq8[address] [place], [place] [address]Dr. Lizandro Hemphill ALP [Catalytic activity/Vol] 63 U/L Normal 46-116 [facility] Comment on above: Performed By: #### C MP ####[facility] Avtaxoarwm33[address] [place], [place] [address]Dr. Lizandro Hemphill ALT [Catalytic activity/Vol] 27 U/L Normal 14-59 [facility] Comment on above: Performed By: #### C MP ####[facility] Bivwceexyc[address] [place], [place] [address]Dr. Lizandro Hemphill Anion gap [Moles/Vol] 8.5 mmol/L Normal [facility] Comment on above: Performed By: #### C MP ####[facility] Inecghbbqi2139[address] [place], [place] [address]Dr. Lizandro Hemphill AST [Catalytic activity/Vol] 33 U/L Normal 15-37 [facility] Comment on above: Performed By: #### C MP ####[facility] Bbbjwkohlm[address] [place], [place] [address]Dr. Lizandro Hemphill Bilirubin [Mass/Vol] 0.2 mg/dL Normal 0.2-1.0 [facility] Comment on above: Performed By: #### C MP ####[facility] Iylmgcdhxz59[address] [place], [place] [address]Dr. Lizandro Hemphill Calcium [Mass/Vol] 7.9 mg/dL Critically low 8.5-10.1 Th [facility] Comment on above: Performed By: #### C MP ####[facility] Ahpzdjezbu37[address] [place], [place] [address]Dr. Lizandro Hemphill Chloride [Moles/Vol] 102 mmol/L Normal 98-107 The [facility] Comment on above: Performed By: #### C MP ####[facility] Kgosbysvze[address] [place] [address]Dr. Lizandro Hemphill CO2 [Moles/Vol] 26.5 mmol/L Normal 21.0-32.0 [facility] Comment on above: Performed By: #### C MP ####[facility] Zdmfhlblpq0391 [place] [address]Dr. Lizandro Joby Creatinine [Mass/Vol] 0.99 mg/dL Normal 0.55-1.02 [facility] Comment on above: Performed By: #### C MP ####[facility] Qwxvdfqiwp2012 [place] [address]Dr. Lizandro Joby EGFR-AF CHADIAN >60 Normal >=60 [facility] Comment on above: Performed By: #### C MP ####[facility] Kgxohwndph6563 [place] [address]Dr. Lizandro Joby EGFR-NON AF CHADIAN 57 mL/min/1.73m2 Critically low >=60 [facility] Comment on above: Performed By: #### C MP ####[facility] Drzawijlxy1207 [place] [address]Dr. Lizandro Joby Globulin (S) [Mass/Vol] 2.9 g/dL Normal [facility] Comment on above: Performed By: #### C MP ####[facility] Oeuqvutbvr80[address] [place] [id number]. Lizandro Joby Glucose [Mass/Vol] 86 mg/dL Normal 74-106 [facility] Comment on above: Performed By: #### C MP ####[facility] Oorjetbkri6745 [place] [id number]. Lizandro Joby Potassium [Moles/Vol] 4.0 mmol/L Normal 3.5-5.1 The [facility] Comment on above: Performed By: #### C MP ####[facility] Lenzxccvbv2979 [place] [id number]. Shanikaannie Hemphill Protein [Mass/Vol] 5.6 g/dL Critically low 6.4-8.2 Th [facility] Comment on above: Performed By: #### C MP ####[facility] Uhhnrdjtcp907[address] [place], [place] [address]Dr. Lizandro Hemphill Sodium [Moles/Vol] 133 mmol/L Critically low 136-145 Th [facility] Comment on above: Performed By: #### C MP ####[facility] Xlvmojzjfm669[address] [place], [place] [address]Dr. Lizandro Hemphill Urea nitrogen [Mass/Vol] 23.0 mg/dL Critically high 7.0-18.0 [facility] Comment on above: Performed By: #### C MP ####[facility] Uhtqiwnaqi5545[address] [place], [place] [address]Dr. Lizandro Hemphill Urea nitrogen/Creatinin e [Mass ratio] 23.2 mg/mg Normal The [facility] Comment on above: Performed By: #### C MP ####[facility] Jzkzsfaxqx5717[address] [place], [place] [address]Dr. Lizandro Hemphill PROTIMEon 01-27-2022 INR Coag (PPP) [Relative time] 1.23 {INR} Normal The [facility] Comment on above: Performed By: #### P T, PTT ####[facility] Isopddkxxk9836[address] [place], [place] [address]Dr. Lizandro Hemphill INR GUIDELINES SEE BELOW Normal The [facility] Comment on above: Result Comment: GUEVARA RED INR: 2.0 - 3.0 CONDITIONS NOT LISTED BELOW 2.5 - 3.5 FOR PROSTHETIC HEART VALVE REPLACEMENT 2.5 - 3.5 RECURRENT THROMBOSIS Performed By: #### P T, PTT ####[facility] Qntlnkwalj5465[address] [place], [place] [address]Dr. Lizandro Hemphill PT Coag (PPP) [Time] 13.1 s Critically high 9.0-11.6 The [facility] Comment on above: Performed By: #### P T, PTT ####[facility] Pnorkrhhlc[address] [place], [place] [address]Dr. Lizandro Hemphill PTTon 01-27-2022 aPTT Coag (Bld) [Time] 22.9 s Normal 22.3-36.2 The [facility] Comment on above: Performed By: #### P T, PTT ####[facility] Wuskvfochn3569[address] [place], [place] [address]Dr. Lizandro Hemphill CBC AUTO DIFFon 01-26-2022 BASO # 0.1 103/ul Normal 0.0-0.1 The [facility] Comment on above: Performed By: #### C BC ####[facility] Febvtqjxej480[address] [place], [place] [address]Dr. Lizandro Joby Basophils/100 WBC (Bld) 0.4 % Normal 0.2-2.0 The [facility] Comment on above: Performed By: #### C BC ####[facility] Fuevtiqvpf7875[address] [place], [place] [address]Dr. Lizandro Hemphill EO # 0.0 103/ul Normal 0.0-0.7 The [facility] Comment on above: Performed By: #### C BC ####[facility] Errweoyian1047[address] [place], [place] [address]Dr. Lizandro Joby Eosinophils/100 WBC (Bld) 0.2 % Critically low 0.9-7.0 The [facility] Comment on above: Performed By: #### C BC ####[facility] Mbnhugxxpa044[address] [place], [place] [address]Dr. Lizandro Hemphill Erythrocyte distribution width (RBC) [Ratio] 16.7 % Critically high 11.0-15.0 The [facility] Comment on above: Performed By: #### C BC ####[facility] Julpofqdpf032[address] [place], [place] [address]Dr. Lizandro Joby Hematocrit (Bld) [Volume fraction] 28.9 % Critically low 36.0-48.0 The [facility] Comment on above: Performed By: #### C BC ####[facility] Hvwhwvnqto764[address] [place], [place] [address]Dr. Lizandro Joby Hemoglobin (Bld) [Mass/Vol] 9.5 g/dL Critically low 12.0-16.0 The [facility] Comment on above: Performed By: #### C BC ####[facility] Czfjwcvohd75[address] [place], [place] [address]Dr. Lizandro Hemphill IG # 0.06 10e3/ul Critically high 0.00-0.03 [facility] Comment on above: Performed By: #### C BC ####[facility] Rcngkacjqg9409 [place] [address]Dr. Lizandro Hemphill IG % 0.5 % Normal 0.0-0.5 [facility] Comment on above: Performed By: #### C BC ####[facility] Hwyzplfpyl6161 [place] [address]DrCiro Hemphill LYMPH # 1.7 103/ul Normal 1.2-3.8 The [facility] Comment on above: Performed By: #### C BC ####[facility] Cnyherlhmz0866 [place] [address]DrCiro Hemphill Lymphocytes/100 WBC (Bld) 13.4 % Critically low 20.5-60.0 [facility] Comment on above: Performed By: #### C BC ####[facility] Jyngazsvyq6629 [place] [address]DrCiro Hemphill MANUAL DIFF REQ NO Normal [facility] Comment on above: Performed By: #### C BC ####[facility] Skelkkdwio7557 [place] [address]DrCiro Hemphill MCH (RBC) [Entitic mass] 29.5 pg Normal 26.7-34.0 The [facility] Comment on above: Performed By: #### C BC ####[facility] Shuxvhtfuz4019 [place] [address]DrCiro Hemphill MCHC (RBC) [Mass/Vol] 32.9 g/dL Normal 29.9-35.2 The [facility] Comment on above: Performed By: #### C BC ####[facility] Fnsszbwsua8672 [place] [address]DrCiro Hemphill MCV (RBC) [Entitic vol] 89.8 fL Normal 81.0-99.0 The [facility] Comment on above: Performed By: #### C BC ####[facility] Arifjalasa8261 [place] [address]DrCiro Hemphill MONO # 1.3 103/ul Critically high 0.3-0.8 [facility] Comment on above: Performed By: #### C BC ####[facility] Agflvjetum3355 [place] [address]Dr. Lizandro Hemphill Monocytes/100 WBC (Bld) 10.5 % Normal 1.7-12.0 The [facility] Comment on above: Performed By: #### C BC ####[facility] Nhnzhkynvj8794 [place] [address]Dr. Lizandro Hemphill NEUT # 9.4 103/ul Critically high 1.4-6.5 [facility] Comment on above: Performed By: #### C BC ####[facility] Jwhxcxwtxx147[address] [place], [place] [address]Dr. Lizandro Hemphill Neutrophils/100 WBC (Bld) 75.0 % Normal 43.0-75.0 The [facility] Comment on above: Performed By: #### C BC ####[facility] Ujqjhtkqyd224[address] [place], [place] [address]Dr. Lizandro Hemphill Platelet mean volume (Bld) [Entitic vol] 10.4 fL Normal 9.5-13.5 The [facility] Comment on above: Performed By: #### C BC ####[facility] Mcgsnoxrsb3153 [place] [address]Dr. Lizandro Hemphill PLT 211 103/ul Normal 150-450 The [facility] Comment on above: Performed By: #### C BC ####[facility] Vfzibujdvd303[address] [place], [place] [address]Dr. Lizandro Hemphill RBC 3.22 106/ul Critically low 4.20-5.40 [facility] Comment on above: Performed By: #### C BC ####[facility] Ryvdakxrzj733[address] [place], [place] [address]Dr. Lizandro Hemphill WBC 12.5 103/ul Critically high 4.0-11.0 The [facility] Comment on above: Performed By: #### C BC ####[facility] Klgozqhoni24[address] [place], [place] [address]Dr. Lizandro Hempihll BASO # 0.0 103/ul Normal 0.0-0.1 [facility] Comment on above: Performed By: #### C BC ####[facility] Humsfsbbal3617 [place] [address]Dr. Lizandro Hemphill Basophils/100 WBC (Bld) 0.2 % Normal 0.2-2.0 The [facility] Comment on above: Performed By: #### C BC ####[facility] Rletjdbfzq269[address] [place], [place] [address]Dr. Lizandro Hemphill EO # 0.0 103/ul Normal 0.0-0.7 The [facility] Comment on above: Performed By: #### C BC ####[facility] Rcubvlcmez0520[address] [place], [place] [address]Dr. Shanikaannie Hemphill Eosinophils/100 WBC (Bld) 0.0 % Critically low 0.9-7.0 [facility] Comment on above: Performed By: #### C BC ####[facility] Fuvyabkdhb4413[address] [place], [place] [address]Dr. Lizandro Hemphill Erythrocyte distribution width (RBC) [Ratio] 16.2 % Critically high 11.0-15.0 [facility] Comment on above: Performed By: #### C BC ####[facility] Ehfknyuexq3469[address] [place], [place] [address]Dr. Lizandro Hemphill Hematocrit (Bld) [Volume fraction] 26.3 % Critically low 36.0-48.0 [facility] Comment on above: Performed By: #### C BC ####[facility] Gmguiokmdp5919[address] [place], [place] [address]Dr. Lizandro Hemphill Hemoglobin (Bld) [Mass/Vol] 8.9 g/dL Critically low 12.0-16.0 The [facility] Comment on above: Performed By: #### C BC ####[facility] Ntyilazofc9645[address] [place], [place] [address]Dr. Lizandro Hemphill IG # 0.08 10e3/ul Critically high 0.00-0.03 [facility] Comment on above: Performed By: #### C BC ####[facility] Vinkvjihca[address] [place], [place] [address]Dr. Lizandro Hemphill IG % 0.8 % Critically high 0.0-0.5 [facility] Comment on above: Performed By: #### C BC ####[facility] Mmznkrkmjl9520 [place] [address]Dr. Lizandro Hemphill LYMPH # 0.9 103/ul Critically low 1.2-3.8 The [facility] Comment on above: Performed By: #### C BC ####[facility] Jligzdaifr9293 [place] [address]Dr. Lizandro Hemphill Lymphocytes/100 WBC (Bld) 8.8 % Critically low 20.5-60.0 The [facility] Comment on above: Performed By: #### C BC ####[facility] Yopghzofnq0652 [place] [address]Dr. Lizandro Hemphill MANUAL DIFF REQ NO Normal [facility] Comment on above: Performed By: #### C BC ####[facility] Yrsdpeohgl3862 [place] [address]Dr. Lizandro Joby MCH (RBC) [Entitic mass] 30.1 pg Normal 26.7-34.0 The [facility] Comment on above: Performed By: #### C BC ####[facility] Tztkkcbjej3707[address] [place], [place] [address]Dr. Lizandro Joby MCHC (RBC) [Mass/Vol] 33.8 g/dL Normal 29.9-35.2 The [facility] Comment on above: Performed By: #### C BC ####[facility] Qqetxunhji5636 [place] [address]Dr. Lizandro Hemphill MCV (RBC) [Entitic vol] 88.9 fL Normal 81.0-99.0 The [facility] Comment on above: Performed By: #### C BC ####[facility] Kzklmpfzmu40[address] [place], [place] [address]Dr. Lizandro Hemphill MONO # 1.0 103/ul Critically high 0.3-0.8 [facility] Comment on above: Performed By: #### C BC ####[facility] Xjuukpxsxf4227[address] [place], [place] [address]Dr. Lizandro Hemphill Monocytes/100 WBC (Bld) 10.1 % Normal 1.7-12.0 The [facility] Comment on above: Performed By: #### C BC ####[facility] Wxpodtnroh9262 [place] [address]Dr. Lizandro Hemphill NEUT # 8.1 103/ul Critically high 1.4-6.5 [facility] Comment on above: Performed By: #### C BC ####[facility] Cbqqnxzfwu6564 [place] [address]Dr. Lizandro Hemphill Neutrophils/100 WBC (Bld) 80.1 % Critically high 43.0-75.0 [facility] Comment on above: Performed By: #### C BC ####[facility] Woarrsahdv4873 [place] [address]Dr. Lizandro Hemphill Platelet mean volume (Bld) [Entitic vol] 10.5 fL Normal 9.5-13.5 The [facility] Comment on above: Performed By: #### C BC ####[facility] Hqezjlvdbq1236 [place] [address]Dr. Lizandro Hemphill PLT 189 103/ul Normal 150-450 [facility] Comment on above: Performed By: #### C BC ####[facility] Jcvrknlfwu1450 [place] [address]Dr. Lizandro Hemphill RBC 2.96 106/ul Critically low 4.20-5.40 [facility] Comment on above: Performed By: #### C BC ####[facility] Aantfezivg5252 [place] [address]Dr. Lizandro Hemphill WBC 10.1 103/ul Normal 4.0-11.0 [facility] Comment on above: Performed By: #### C BC ####[facility] Ztsehhpvbs5300 [place] [address]Dr. Lizandro Joby PROF 14(COMP METB)on 022 Albumin [Mass/Vol] 2.6 g/dL Critically low 3.4-5.0 Th [facility] Comment on above: Performed By: #### C MP ####[facility] Ngatnmbuad4835 [place] [address]Dr. Lizandro Joby Albumin/Globulin [Mass ratio] 0.9 {ratio} Normal [facility] Comment on above: Performed By: #### C MP ####[facility] Jihffujebh2967 [place] [address]Dr. Lizandro Joby ALP [Catalytic activity/Vol] 62 U/L Normal 46-116 [facility] Comment on above: Performed By: #### C MP ####[facility] Bdgwmsrtuv19[address] [place], [place] [address]Dr. Lizandro Joby ALT [Catalytic activity/Vol] 22 U/L Normal 14-59 [facility] Comment on above: Performed By: #### C MP ####[facility] Wonkjbbulv0213[address] [place], [place] [address]Dr. Lizandro Hemphill Anion gap [Moles/Vol] 10.7 mmol/L Normal [facility] Comment on above: Performed By: #### C MP ####[facility] Uozukhllud7648[address] [place], [place] [address]Dr. Shanikaannie Hemphill AST [Catalytic activity/Vol] 26 U/L Normal 15-37 The [facility] Comment on above: Performed By: #### C MP ####[facility] Ltjigbqrxm437[address] [place], [place] [address]Dr. Lizandro Hemphill Bilirubin [Mass/Vol] 0.2 mg/dL Normal 0.2-1.0 [facility] Comment on above: Performed By: #### C MP ####[facility] Inhdeahlmm750[address] [place], [place] [address]Dr. Lizandro Hemphill Calcium [Mass/Vol] 7.6 mg/dL Critically low 8.5-10.1 Th e [facility] Comment on above: Performed By: #### C MP ####[facility] Wcskpjozlb9208[address] [place], [place] [address]Dr. Lizandro Hemphill Chloride [Moles/Vol] 109 mmol/L Critically high 98-107 The [facility] Comment on above: Performed By: #### C MP ####[facility] Crrarqlhij7440[address] [place], [place] [address]Dr. Lizandro Hemphill CO2 [Moles/Vol] 25.0 mmol/L Normal 21.0-32.0 [facility] Comment on above: Performed By: #### C MP ####[facility] Czilkydtwr7976 [place] [address]Dr. Lizandro Hemphill Creatinine [Mass/Vol] 0.75 mg/dL Normal 0.55-1.02 [facility] Comment on above: Performed By: #### C MP ####[facility] Oouhxpvzrg0131 [place] [address]Dr. Lizandro Joby EGFR-AF CHADIAN >60 Normal >=60 [facility] Comment on above: Performed By: #### C MP ####[facility] Dpnpwgywmv5615 [place] [address]Dr. Lizandro Hemphill EGFR-NON AF CHADIAN >60 Normal >=60 [facility] Comment on above: Performed By: #### C MP ####[facility] Lalgyijeaq6215[address] [place], [place] [address]Dr. Lizandro Hemphill Globulin (S) [Mass/Vol] 2.8 g/dL Normal [facility] Comment on above: Performed By: #### C MP ####[facility] Axjcztgfdj9530[address] [place], [place] [address]Dr. Lizandro Hemphill Glucose [Mass/Vol] 121 mg/dL Critically high 74-106 [facility] Comment on above: Performed By: #### C MP ####[facility] Vrlylhymax8068[address] [place], [place] [address]Dr. Lizandro Hemphill Potassium [Moles/Vol] 3.7 mmol/L Normal 3.5-5.1 [facility] Comment on above: Performed By: #### C MP ####[facility] Bgxinssmvv354[address] [place], [place] [address]Dr. Lizandro Hemphill Protein [Mass/Vol] 5.4 g/dL Critically low 6.4-8.2 Th e [facility] Comment on above: Performed By: #### C MP ####[facility] Ezocbrlxtp0194[address] [place], [place] [address]Dr. Lizandro Hemphill Sodium [Moles/Vol] 141 mmol/L Normal 136-145 [facility] Comment on above: Performed By: #### C MP ####[facility] Trvhifqejx1169[address] [place], [place] [address]Dr. Lizandro Hemphill Urea nitrogen [Mass/Vol] 18.0 mg/dL Normal 7.0-18.0 [facility] Comment on above: Performed By: #### C MP ####[facility] Vukobeyesn866[address] [place], [place] [address]Dr. Lizandro Hemphill Urea nitrogen/Creatinin e [Mass ratio] 24.0 mg/mg Normal [facility] Comment on above: Performed By: #### C MP ####[facility] Ylcikawiga7[address] [place], [place] [address]Dr. Lizandro Hemphill PROTIMEon 01-26-2022 INR Coag (PPP) [Relative time] 1.91 {INR} Normal [facility] Comment on above: Performed By: #### P TT, PT ####[facility] Ilhdevbpwi722[address] [place], [place] [address]Dr. Lizandro Hemphill INR GUIDELINES SEE BELOW Normal [facility] Comment on above: Result Comment: GUEVARA RED INR: 2.0 - 3.0 CONDITIONS NOT LISTED BELOW 2.5 - 3.5 FOR PROSTHETIC HEART VALVE REPLACEMENT 2.5 - 3.5 RECURRENT THROMBOSIS Performed By: #### P TT, PT ####[facility] Etaxebagpt[address] [place], [place] [address]Dr. Lizandro Hemphill PT Coag (PPP) [Time] 19.8 s Critically high 9.0-11.6 [facility] [facility] Comment on above: Performed By: #### P TT, PT ####[facility] Dqqsxhnnwl[address] [place], [place] [address]Dr. Lizandro Hemphill PTTon 01-26-2022 aPTT Coag (Bld) [Time] 27.9 s Normal 22.3-36.2 [facility] Comment on above: Performed By: #### P TT, PT ####[facility] Bdhmktnuhc88[address] [place], [place] [address]Dr. Lizandro Hemphill AMYLASEon 01-25-2022 Amylase [Catalytic activity/Vol] 82 U/L Normal 25-115 [facility] Comment on above: Performed By: #### A MY, LIPA, BNP, HSTROPN, CMP ####[facility] Tzckhznfav[address] [place], [place] [address]Dr. Lizandro Hemphill BNPon 01-25-2022 Natriuretic peptide B (Bld) [Mass/Vol] 152.0 pg/mL Normal <=900.0 [facility] Comment on above: Performed By: #### A MY, LIPA, BNP, HSTROPN, CMP ####[facility] Siegvyheoh[address] [place], [place] [address]Dr. Lizandro Hemphill CBC AUTO DIFFon 01-25-2022 BASO # 0.0 103/ul Normal 0.0-0.1 [facility] Comment on above: Performed By: #### C BC ####[facility] Zuddgdvxql14[address] [place], [place] [address]Dr. Lizandro Hemphill Basophils/100 WBC (Bld) 0.3 % Normal 0.2-2.0 [facility] Comment on above: Performed By: #### C BC ####[facility] Tyzeiuplgh[address] [place], [place] [address]Dr. Lizandro Hemphill EO # 0.0 103/ul Normal 0.0-0.7 [facility] Comment on above: Performed By: #### C BC ####[facility] Annhaqtnsj[address] [place], [place] [address]Dr. Lizandro Hemphill Eosinophils/100 WBC (Bld) 0.0 % Critically low 0.9-7.0 [facility] Comment on above: Performed By: #### C BC ####[facility] Rfgjsqttpz5[address] [place], [place] [address]Dr. Lizandro Hemphill Erythrocyte distribution width (RBC) [Ratio] 17.6 % Critically high 11.0-15.0 [facility] Comment on above: Performed By: #### C BC ####[facility] Muovssqjlf[address] [place], [place] [address]Dr. Lizandro Hemphill Hematocrit (Bld) [Volume fraction] 16.8 % Critically low 36.0-48.0 [facility] Comment on above: Performed By: #### C BC ####[facility] Xnchhwewvp[address] [place] [address]DrCiro Lizandro Hemphill Hemoglobin (Bld) [Mass/Vol] 5.7 g/dL Critically low 12.0-16.0 [facility] Comment on above: Performed By: #### C BC ####[facility] Hy[address]hdhsps[address] [place] [address]DrCiro Lizandro Hemphill IG # 0.11 10e3/ul Critically high 0.00-0.03 [facility] Comment on above: Performed By: #### C BC ####[facility] Fmufikorgp9494 [place] [address]DrCiro Lizandro Joby IG % 0.9 % Critically high 0.0-0.5 [facility] Comment on above: Performed By: #### C BC ####[facility] Ijocaxppce9906 [place] [address]DrCiro Vossannie Joby LYMPH # 0.7 103/ul Critically low 1.2-3.8 [facility] Comment on above: Performed By: #### C BC ####[facility] Fiywvxkkfc0327 [place] [address]DrCiro Lizandro Joby Lymphocytes/100 WBC (Bld) 5.7 % Critically low 20.5-60.0 [facility] Comment on above: Performed By: #### C BC ####[facility] Bpzhfmiopw26[address] [place] [address]DrCiro Shanikaannie Hemphill MANUAL DIFF REQ NO Normal [facility] Comment on above: Performed By: #### C BC ####[facility] Etclrbaqqo2439 [place] [id number] Lizandro Joby MCH (RBC) [Entitic mass] 29.5 pg Normal 26.7-34.0 [facility] Comment on above: Performed By: #### C BC ####[facility] Myopkpmoxh9261 [place] [phone] Lizandro Joby MCHC (RBC) [Mass/Vol] 33.9 g/dL Normal 29.9-35.2 [facility] Comment on above: Performed By: #### C BC ####[facility] Wwoxpvaimy9986 [place] [phone] Lizandro Joby MCV (RBC) [Entitic vol] 87.0 fL Normal 81.0-99.0 [facility] Comment on above: Performed By: #### C BC ####[facility] Jcaoksgksb7210 [place] [id number] Hemphill MONO # 0.1 103/ul Critically low 0.3-0.8 [facility] Comment on above: Performed By: #### C BC ####[facility] Ejqpgkyagv5813 [place] [address]DrCiro Hemphill Monocytes/100 WBC (Bld) 0.9 % Critically low 1.7-12.0 [facility] Comment on above: Performed By: #### C BC ####[facility] Ocurbmshqy[address] [place], [place] [address]DrCiro Hemphill NEUT # 10.7 103/ul Critically high 1.4-6.5 The [facility] Comment on above: Performed By: #### C BC ####[facility] Ibrwwvsrpm4[address] [place], [place] [address]DrCiro Hemphill Neutrophils/100 WBC (Bld) 92.2 % Critically high 43.0-75.0 The [facility] Comment on above: Performed By: #### C BC ####[facility] Cxfwsafime1135[address] [place], [place] [address]DrCiro Hemphill Platelet mean volume (Bld) [Entitic vol] 10.7 fL Normal 9.5-13.5 [facility] Comment on above: Performed By: #### C BC ####[facility] Lihuactizd09[address] [place], [place] [address]DrCiro Hemphill PLT 217 103/ul Normal 150-450 [facility] Comment on above: Performed By: #### C BC ####[facility] Mnlfkvkwoq[address] [place], [place] [id number] Hemphill RBC 1.93 106/ul Critically low 4.20-5.40 [facility] Comment on above: Performed By: #### C BC ####[facility] Cwmpoaejfe0798 [place] [phone]. Lizandro Hemphill WBC 11.6 103/ul Critically high 4.0-11.0 The [facility] Comment on above: Performed By: #### C BC ####[facility] Obnafiyvni0778 [place] [phone]. Lizandro Hemphill BASO # 0.1 103/ul Normal 0.0-0.1 [facility] Comment on above: Performed By: #### C BC ####[facility] Erdagqezga2396 [place] [phone]. Lizandro Hemphill Basophils/100 WBC (Bld) 0.6 % Normal 0.2-2.0 [facility] Comment on above: Performed By: #### C BC ####[facility] Whobemfcak69[address] [place], [place] [address]Dr. Lizandro Hemphill EO # 0.0 103/ul Normal 0.0-0.7 [facility] Comment on above: Performed By: #### C BC ####[facility] Tcfyxwbpap189[address] [place], [place] [id number]. Lizandro Hemphill Eosinophils/100 WBC (Bld) 0.3 % Critically low 0.9-7.0 [facility] Comment on above: Performed By: #### C BC ####[facility] Huatkvoaoo6349 [place] [phone]. Lizandro Hemphill Erythrocyte distribution width (RBC) [Ratio] 17.4 % Critically high 11.0-15.0 [facility] Comment on above: Performed By: #### C BC ####[facility] Ujripmqwnt[address] [place], [place] [id number]. Lizandro Hemphill Hematocrit (Bld) [Volume fraction] 17.1 % Critically low 36.0-48.0 [facility] Comment on above: Performed By: #### C BC ####[facility] Nzsfuswdan74[address] [place], [place] [phone]. Lizandro Hemphill Hemoglobin (Bld) [Mass/Vol] 5.7 g/dL Critically low 12.0-16.0 [facility] Comment on above: Performed By: #### C BC ####[facility] Jhghidpeso8799 [place] [address]DrCiro Hemphill IG # 0.10 10e3/ul Critically high 0.00-0.03 [facility] Comment on above: Performed By: #### C BC ####[facility] Prprpyfuwz9842 [place] [address]DrCiro Hemphill IG % 0.9 % Critically high 0.0-0.5 [facility] Comment on above: Performed By: #### C BC ####[facility] Rbvusipjeu7[address] [place], [place] [address]DrCiro Hemphill LYMPH # 1.6 103/ul Normal 1.2-3.8 [facility] Comment on above: Performed By: #### C BC ####[facility] Yuxgitqqww7[address] [place], [place] [address]DrCiro Hemphill Lymphocytes/100 WBC (Bld) 14.4 % Critically low 20.5-60.0 [facility] Comment on above: Performed By: #### C BC ####[facility] Zdsvudfhkk5528 [place] [address]DrCiro Hemphill MANUAL DIFF REQ NO Normal [facility] Comment on above: Performed By: #### C BC ####[facility] Tbijoxpoxb6016 [place] [address]DrCiro Hemphill MCH (RBC) [Entitic mass] 29.2 pg Normal 26.7-34.0 [facility] Comment on above: Performed By: #### C BC ####[facility] Xonmzmdegh7837 [place] [address]DrCiro Hemphill MCHC (RBC) [Mass/Vol] 33.3 g/dL Normal 29.9-35.2 [facility] Comment on above: Performed By: #### C BC ####[facility] Ivjurwqjge2809 [place] [address]DrCiro Hemphill MCV (RBC) [Entitic vol] 87.7 fL Normal 81.0-99.0 [facility] Comment on above: Performed By: #### C BC ####[facility] Ipblgduxkx9794 [place] [phone] Hemphill MONO # 0.9 103/ul Critically high 0.3-0.8 [facility] Comment on above: Performed By: #### C BC ####[facility] Vnzjswqams9192 [place] [address]DrCiro Hemphill Monocytes/100 WBC (Bld) 8.1 % Normal 1.7-12.0 [facility] Comment on above: Performed By: #### C BC ####[facility] Xecfcsoabk[address] [place], [place] [address]Dr. Lizandro Hemphill NEUT # 8.5 103/ul Critically high 1.4-6.5 [facility] Comment on above: Performed By: #### C BC ####[facility] Hrgmphactb4[address] [place], [place] [address]Dr. Lizandro Hemphill Neutrophils/100 WBC (Bld) 75.7 % Critically high 43.0-75.0 The [facility] Comment on above: Performed By: #### C BC ####[facility] Xyyjnieuqg[address] [place], [place] [address]DrCiro Hemphill Platelet mean volume (Bld) [Entitic vol] 10.9 fL Normal 9.5-13.5 [facility] Comment on above: Performed By: #### C BC ####[facility] Aptgrpmirp1864 [place] [phone]. Lizandro Hemphill PLT 232 103/ul Normal 150-450 [facility] Comment on above: Performed By: #### C BC ####[facility] Nxavxlvyrc7663 [place] [phone] Hemphill RBC 1.95 106/ul Critically low 4.20-5.40 [facility] Comment on above: Performed By: #### C BC ####[facility] Kgwjhxixnj3172 [place] [phone] Hemphill WBC 11.3 103/ul Critically high 4.0-11.0 The [facility] Comment on above: Performed By: #### C BC ####[facility] Rvvtrjtkgg6637 [place] [address]Dr. Lizandro Hemphill CBC W MANUAL DIFFon 01-26-20 22 ANISOCYTOSIS SLIGHT Normal [facility] Comment on above: Performed By: #### C BCMAN ####[facility] Bfxovojdjv4595 [place] [address]Dr. Yiannie Hemphill ATYPICAL LYMPH # Normal [facility] Comment on above: Performed By: #### C BCMAN ####[facility] Uucfczlfwy[address] [place], [place] [address]Dr. Lizandro Hemphill ATYPICAL LYMPH % Normal [facility] Comment on above: Performed By: #### C BCMAN ####[facility] Tulnhdbkwl3[address] [place], [place] [address]Dr. Lizandro Hemphill BAND # 0.1 103/ul Normal 0.0-0.3 [facility] Comment on above: Performed By: #### C BCMAN ####[facility] Krwtzhovdq3984[address] [place], [place] [address]Dr. Lizandro Hemphill BAND % 1 % Normal 0-5 [facility] Comment on above: Performed By: #### C BCMAN ####[facility] Gkenffcjgr[address] [place], [place] [address]Dr. Lizandro Hemphill BASOM # 0.00 103/ul Normal 0.00-0.10 [facility] Comment on above: Performed By: #### C BCMAN ####[facility] Maqzfzcymn[address] [place], [place] [address]Dr. Lizandro Hemphill BASOM % 0.0 % Critically low 0.2-2.0 [facility] Comment on above: Performed By: #### C BCMAN ####[facility] Nfffdgcqpx[address] [place], [place] [address]Dr. Shanikalan Hemphill BLAST # Normal [facility] Comment on above: Performed By: #### C BCMAN ####[facility] Jkkhnzhybe26[address] [place], [place] [address]Dr. Yilan Hemphill BLAST % Normal [facility] Comment on above: Performed By: #### C DERRELL ####[facility] Jmkopphkur4385 [place] [phone]. Lizandro Hemphill CORRECTED WBC Normal 4.0-11.0 [facility] Comment on above: Performed By: #### C DERRELL ####[facility] Fuxnxkofwy7700 [place] [phone]. Lizandro Hemphill EOS # 0.00 103/ul Normal 0.00-0.70 [facility] Comment on above: Performed By: #### C DERRELL ####[facility] Nqmpczirvl4826 [place] [phone]. Lizandro Hemphill EOS% 0.0 % Critically low 0.9-7.0 [facility] Comment on above: Performed By: #### C DERRELL ####[facility] Fleuochbyj6569 [place] [phone]. Lizandro Hemphill HCT 28.0 % Critically low 36.0-48.0 [facility] Comment on above: Performed By: #### C DERRELL ####[facility] Egizfddcjh6973 [place] [phone]. Lizandro Hemphill HGB 9.6 g/dl Critically low 12.0-16.0 [facility] Comment on above: Performed By: #### C DERRELL ####[facility] Upbcfcvhdc8578 [place] [phone]. Lizandro Hemphill LYMPHM # 0.77 103/ul Critically low 1.20-3.80 [facility] Comment on above: Performed By: #### C DERRELL ####[facility] Lrsmouydkc6396 [place] [phone]. Lizandro Hemphill LYMPHM% 8.0 % Critically low 20.5-60.0 [facility] Comment on above: Performed By: #### C DERRELL ####[facility] Jjhojkbome0218 [place] [phone]. Lizandro Hemphill MCH 30.3 pg Normal 26.7-34.0 The [facility] Comment on above: Performed By: #### C DERRELL ####[facility] Cflwtvctoa4509 [place] [phone]. Lizandro Hemphill MCHC 34.3 g/dl Normal 29.9-35.2 The [facility] Comment on above: Performed By: #### C DERRELL ####[facility] Cogmgqyykz7129 [place] [phone]. Lizandro Hemphill MCV 88.3 fL Normal 81.0-99.0 The [facility] Comment on above: Performed By: #### C DERRELL ####[facility] Vzjpvqrnxm7367 [place] [phone]. Lizandro Hemphill METAMYELOCYTE # Normal [facility] Comment on above: Performed By: #### C DERRELL ####[facility] Exankhntgh3424[address] [place], [place] [address]Dr. Lizandro Hemphill METAMYELOCYTE % Normal [facility] Comment on above: Performed By: #### Tracy DOVE ####[facility] Twievxgnat[address] [place], [place] [address]Dr. Lizandro Hemphill MONOM# 0.10 103/ul Critically low 0.30-0.80 [facility] Comment on above: Performed By: #### C DERRELL ####[facility] Lxwiczfzdo69[address] [place], [place] [address]Dr. Lizandro Hemphill MONOM% 1.0 % Critically low 1.7-12.0 [facility] Comment on above: Performed By: #### C DERRELL ####[facility] Gvrmkdgeof[address] [place], [place] [address]Dr. Lizandro Hemphill MPV 10.7 fL Normal 9.5-13.5 The [facility] Comment on above: Performed By: #### C DERRELL ####[facility] Nokevqzcfj[address] [place], [place] [address]Dr. Lizandro Hemphill MYELOCYTE # Normal [facility] Comment on above: Performed By: #### C DERRELL ####[facility] Eqevdaeltp30[address] [place], [place] [address]Dr. Lizandro Hemphill MYELOCYTE % Normal [facility] Comment on above: Performed By: #### C BCMAN ####[facility] Qhqjmkihgk5590 [place] [phone]. Lizandro Hemphill NRBC Normal [facility] Comment on above: Performed By: #### Tracy DOVE ####[facility] Rqecbefjwr0240 [place] [phone]. Lizandro Hemphill PLT 196 103/ul Normal 150-450 [facility] Comment on above: Performed By: #### Tracy DOVE ####[facility] Cidfdgxxsh5079 [place] [phone]. Lizandro Hemphill RBC 3.17 106/ul Critically low 4.20-5.40 [facility] Comment on above: Performed By: #### Tracy DOVE ####[facility] Uflwwhgzsb0266 [place] [phone]. Lizandro Hemphill RDW 16.0 % Critically high 11.0-15.0 [facility] Comment on above: Performed By: #### Tracy DOVE ####[facility] Uriwfkfdic2672 [place] [phone]. Lizandro Hemphill SEG # 8.64 103/ul Critically high 1.40-6.50 [facility] Comment on above: Performed By: #### Tracy DOVE ####[facility] Flyrhnvxvd8388 [place] [phone]. Lizandro Hemphill SEG % 90.0 % Critically high 43.0-75.0 [facility] Comment on above: Performed By: #### Tracy DOVE ####[facility] Uedyhcfhfa6258 [place] [phone]. Lizandro Hemphill WBC 9.6 103/ul Normal 4.0-11.0 The [facility] Comment on above: Performed By: #### Tracy DOVE ####[facility] Xrksehvosz8568 [place] [phone]. Lizandro Hemphill CT HEAD WO CONon 01-25-2022 CT HEAD WO CON Normal [facility] CULTURE URINEon 01-25-2022 CULTURE URINE Culture Observations : NO GROWTH. Normal The [facility] Comment on above: Performed By: #### U RCX ####[facility] Iomslptehi9412 [place] [phone]. Lizandro Hemphill Covid-19 PCR (CVDTBH)on SARS-CoV-2 (COVID-19) RNA VERITO+probe Ql (Unsp spec) Not detected Normal NOT DETECTED The [facility] Comment on above: Result Comment: When diagnostic testing is negative, the possibility of a false negative should be considered inthe context of a patient's recent exposures and the presence of clinical signs and symptomsconsistent with SARS-CoV-2.This test is not yet approved or cleared by the [place] FDA. When there are no FDA-approved or cleared tests available, and other criteria are met, FDA can make tests available under an emergency access mechanism called an Emergency Use Authorization (EUA). The EUA for this test is supported by the Street Vendor of Health and Human Service's declaration that circumstances exist to justify the emergency use of in vitro diagnostics for the detection and/or diagnosis of the virus that causes COVID-19. This EUA will remain in effect for the duration of the COVID-19 declaration justifying emergency of IVDs, unless it is terminated or revoked by the FDA (after which the test may no longer be used). Performed By: #### C VDTBH ####[facility] Iafjmyqaeb[address] [place] [address]Dr. Lizandro Hemphill FERRITINon 01-25-2022 Ferritin [Mass/Vol] 26.0 ng/mL Normal 8.0-252.0 [facility] Comment on above: Performed By: #### F ETIBC, FERR, B12FOL ####[facility] Vfilpiytlb6639 [place] [phone]. Lizandro Hemphill IRON AND TIBCon 01-25-2022 % SATURATION 2.5 % Normal The [facility] Comment on above: Performed By: #### F ETIBC, FERR, B12FOL ####[facility] Wpamaszrnk4091 [place] [phone]. Lizandro Hemphill Iron [Mass/Vol] 9.0 ug/dL Critically low 50.0-170.0 [facility] Comment on above: Performed By: #### F ETIBC, FERR, B12FOL ####[facility] Oddspsgual2368 [place] [phone]. Lizandro Hemphill TIBC DIRECT 356.0 ug/dL Normal 250.0-450.0 [facility] Comment on above: Performed By: #### F ETIBC, FERR, B12FOL ####[facility] Drqremyrcq6546 [place] [phone]. Lizandro Hemphill LIPASEon 01-25-2022 Lipase [Catalytic activity/Vol] 129.0 U/L Normal 73.0-393.0 [facility] Comment on above: Performed By: #### A MY, LIPA, BNP, HSTROPN, CMP ####[facility] Cyeyssjmir[address] [place] [address]Dr. Lizandro Hemphill PROF 14(COMP METB)on 022 Albumin [Mass/Vol] 3.1 g/dL Critically low 3.4-5.0 [facility] Comment on above: Performed By: #### A MY, LIPA, BNP, HSTROPN, CMP ####[facility] Hpcpneelrb[address] [place] [address]Dr. Lizandro Hemphill Albumin/Globulin [Mass ratio] 1.1 {ratio} Normal [facility] Comment on above: Performed By: #### A MY, LIPA, BNP, HSTROPN, CMP ####[facility] Ozlzrtwbju[address] [place] [address]Dr. Lizandro Hemphill ALP [Catalytic activity/Vol] 69 U/L Normal 46-116 [facility] Comment on above: Performed By: #### A MY, LIPA, BNP, HSTROPN, CMP ####[facility] Mvfjkakyto[address] [place] [address]Dr. Lizandro Hemphill ALT [Catalytic activity/Vol] 24 U/L Normal 14-59 [facility] Comment on above: Performed By: #### A MY, LIPA, BNP, HSTROPN, CMP ####[facility] Xbjipreznd80[address] [place] [address]Dr. Lizandro Hemphill Anion gap [Moles/Vol] 15.6 mmol/L Normal [facility] Comment on above: Performed By: #### A MY, LIPA, BNP, HSTROPN, CMP ####[facility] Yjjezcjtej[address] [place] [address]Dr. Lizandro Hemphill AST [Catalytic activity/Vol] 23 U/L Normal 15-37 [facility] Comment on above: Performed By: #### A MY, LIPA, BNP, HSTROPN, CMP ####[facility] Awfyrfyddo[address] [place] [address]Dr. Lizandro Hemphill Bilirubin [Mass/Vol] 0.2 mg/dL Normal 0.2-1.0 [facility] Comment on above: Performed By: #### A MY, LIPA, BNP, HSTROPN, CMP ####[facility] X[address]tjtkok[address] [place], [place] [address]Dr. Lizandro Hemphill Calcium [Mass/Vol] 9.2 mg/dL Normal 8.5-10.1 [facility] Comment on above: Performed By: #### A MY, LIPA, BNP, HSTROPN, CMP ####[facility] Fuydmdcvsz05[address] [place] [address]Dr. Lizandro Hemphill Chloride [Moles/Vol] 104 mmol/L Normal 98-107 [facility] Comment on above: Performed By: #### A MY, LIPA, BNP, HSTROPN, CMP ####[facility] Jtompdcopw0444 [place] [address]Dr. Lizandro Hemphill CO2 [Moles/Vol] 22.9 mmol/L Normal 21.0-32.0 [facility] Comment on above: Performed By: #### A MY, LIPA, BNP, HSTROPN, CMP ####[facility] Wmmcnakfcz2585 [place] [address]Dr. Lizandro Hemphill Creatinine [Mass/Vol] 1.09 mg/dL Critically high 0.55-1.02 [facility] Comment on above: Performed By: #### A MY, LIPA, BNP, HSTROPN, CMP ####[facility] Sadbfzjngj[address] [place], [place] [address]Dr. Lizandro Hemphill EGFR-AF CHADIAN >60 Normal >=60 [facility] Comment on above: Performed By: #### A MY, LIPA, BNP, HSTROPN, CMP ####[facility] Mlhcfajpuy32[address] [place] [address]Dr. Lizandro Hemphill EGFR-NON AF CHADIAN 51 mL/min/1.73m2 Critically low >=60 [facility] Comment on above: Performed By: #### A MY, LIPA, BNP, HSTROPN, CMP ####[facility] Hrncbbuxfx3369 [place] [address]Dr. Lizandro Hemphill Globulin (S) [Mass/Vol] 2.9 g/dL Normal [facility] Comment on above: Performed By: #### A MY, LIPA, BNP, HSTROPN, CMP ####[facility] Ifnbxhizzi6911 [place] [address]Dr. Lizandro Hemphill Glucose [Mass/Vol] 112 mg/dL Critically high 74-106 [facility] Comment on above: Performed By: #### A MY, LIPA, BNP, HSTROPN, CMP ####[facility] Zdzcjsnahj0092 [place] [address]Dr. Lizandro Hemphill Potassium [Moles/Vol] 3.5 mmol/L Normal 3.5-5.1 [facility] Comment on above: Performed By: #### A MY, LIPA, BNP, HSTROPN, CMP ####[facility] Xqfgzalpdg5902 [place] [address]Dr. Lizandro Hemphill Protein [Mass/Vol] 6.0 g/dL Critically low 6.4-8.2 [facility] Comment on above: Performed By: #### A MY, LIPA, BNP, HSTROPN, CMP ####[facility] Whktsyvlbe4026 [place] [address]Dr. Lizandro Hemphill Sodium [Moles/Vol] 139 mmol/L Normal 136-145 [facility] Comment on above: Performed By: #### A MY, LIPA, BNP, HSTROPN, CMP ####[facility] Vbffqwkjle7[address] [place] [address]Dr. Lizandro Hemphill Urea nitrogen [Mass/Vol] 30.0 mg/dL Critically high 7.0-18.0 [facility] Comment on above: Performed By: #### A MY, LIPA, BNP, HSTROPN, CMP ####[facility] Xaeflsiesv[address] [place], [place] [address]Dr. Lizandro Hemphill Urea nitrogen/Creatinin e [Mass ratio] 27.5 mg/mg Normal The [facility] Comment on above: Performed By: #### A MY, LIPA, BNP, HSTROPN, CMP ####[facility] Weuathoifz[address] [place], [place] [address]Dr. Lizandro Hemphill PROTIMEon 01-25-2022 INR Coag (PPP) [Relative time] 1.48 {INR} Normal The [facility] Comment on above: Performed By: #### P TT, PT ####[facility] Ftnahuadcx[address] [place], [place] [address]Dr. Lizandro Hemphill INR GUIDELINES SEE BELOW Normal [facility] Comment on above: Result Comment: GUEVARA RED INR: 2.0 - 3.0 CONDITIONS NOT LISTED BELOW 2.5 - 3.5 FOR PROSTHETIC HEART VALVE REPLACEMENT 2.5 - 3.5 RECURRENT THROMBOSIS Performed By: #### P TT, PT ####[facility] Kqcnttxfsw[address] [place], [place] [address]Dr. Lizandro Hemphill PT Coag (PPP) [Time] 15.6 s Critically high 9.0-11.6 The [facility] Comment on above: Performed By: #### P TT, PT ####[facility] Ngiardsroi[address] [place], [place] [address]Dr. Lizandro Hemphill PTTon 01-25-2022 aPTT Coag (Bld) [Time] 24.9 s Normal 22.3-36.2 [facility] Comment on above: Performed By: #### P TT, PT ####[facility] Pactcdiwsj[address] [place], [place] [address]Dr. Lizandro Hemphill TROPONIN, HIGH SENSITIVITYon 01-25-2022 HSTROP 8.4 pg/mL Normal 4.0-51.3 The [facility] Comment on above: Result Comment: CUT- OFF POINTS HAVE BEEN ESTABLISHED BASED ON THE FOURTH UNIVERSAL DEFINITIONS OF MYOCARDIALINFARCTION. THE UPPER REFERENCE LIMIT (URL) OF TROPONIN, DEFINED THE 99TH PERCENTILE OFcTnI DISTRIBUTION IN A REFERENCE POPULATION, HAS BEEN CONFIRMED THE DECISION THRESHOLDFOR [place] DIAGNOSIS. Performed By: #### A MY, LIPA, BNP, HSTROPN, CMP ####[facility] Mnouejrgox[address] [place] [address]Dr. Lizandro Hemphill TYPE AND SCREENon 01-25-2022 TYPE AND SCREEN Negative Normal [facility] Comment on above: Performed By: #### T NS ####[facility] Nkqorwlcrd0475 [place] [address]Dr. Lizandro Hemphill VIT B12 AND FOLATEon 022 Cobalamin (Vitamin B12) [Mass/Vol] 394.0 pg/mL Normal 193.0-986.0 [facility] Comment on above: Performed By: #### F ETIBC, FERR, B12FOL ####[facility] Prhigcqenv9713 [place] [address]Dr. annie Hemphill FOLATE 18.00 ng/mL Normal 8.60-58.90 The [facility] Comment on above: Performed By: #### F ETIBC, FERR, B12FOL ####[facility] Befwyvzcdq34[address] [place] [address]Dr. Lizandro Hemphill XR CHEST 1 Von 01-25-2022 XR CHEST 1 V Normal [facility] PROTIMEon 01-17-2022 INR Coag (PPP) [Relative time] {INR} Normal The [facility] Comment on above: Performed By: #### P T ####[facility] Xtmecjxfez33[address] [place] [address]Dr. Lizandro Hemphill INR GUIDELINES SEE BELOW Normal [facility] Comment on above: Result Comment: GUEVARA RED INR: 2.0 - 3.0 CONDITIONS NOT LISTED BELOW 2.5 - 3.5 FOR PROSTHETIC HEART VALVE REPLACEMENT 2.5 - 3.5 RECURRENT THROMBOSIS Performed By: #### P T ####[facility] Syhxewaoor[address] [place] [id number]. Lizandro Hemphill PT Coag (PPP) [Time] 9.6 s Normal 9.0-11.6 [facility] Comment on above: Performed By: #### P T ####[facility] Irshdnekzm6[address] [place] [id number]. Lizandro Hemphill Covid-19 PCR ([facility])on 12-25 SARS-CoV-2 (COVID-19) RNA VERITO+probe Ql (Unsp spec) Not detected Normal NOT DETECTED The [facility] Comment on above: Result Comment: This test is not yet approved or cleared by the [place] FDA. When there are no FDA-approved or cleared tests available, and other criteria are met, FDA can make tests available under an emergency access mechanism called an Emergency Use Authorization (EUA). The EUA for this test is supported by the [employer] of Health and Human Service's (HHS's) declaration that circumstances exist to justify the emergency use of in vitro diagnostics for the detection and/or diagnosis of the virus that causes COVID-19. This EUA will remain in effect (meaning this test can be used) for the duration of the COVID-19 declaration justifying emergency of IVDs, unless it is terminated or revoked by FDA (after which the test may no longer be used).When diagnostic testing is negative, the possibility of a false negative should be considered inthe context of a patient's recent exposures and the presence of clinical signs and symptomsconsistent with SARS-CoV-2. Performed By: #### C VDTB ####[facility] Mvowrkajbj[address]146 [place] [address]DrCiro Lizandro Hemphill PROTIMEon 12-06-2021 INR Coag (PPP) [Relative time] {INR} Normal The [facility] Comment on above: Performed By: #### P T ####[facility] Izcvhrsqnx0783 [place] [id number] Lizandro Hemphill INR GUIDELINES SEE BELOW Normal [facility] Comment on above: Result Comment: GUEVARA RED INR: 2.0 - 3.0 CONDITIONS NOT LISTED BELOW 2.5 - 3.5 FOR PROSTHETIC HEART VALVE REPLACEMENT 2.5 - 3.5 RECURRENT THROMBOSIS Performed By: #### P T ####[facility] Rfr[address]dlqjf[address] [place], [place] [address]Ea. Lizandro Hemphill PT Coag (PPP) [Time] 9.5 s Normal 9.0-11.6 [facility] Comment on above: Performed By: #### P T ####[facility] Wywmyspghs[address] [place], [place] [address]Qh. Lizandro Hemphill [facility]on SARS-CoV-2 (COVID-19) RNA VERITO+probe Ql (Unsp spec) Not detected Normal NOT DETECTED The [facility] Comment on above: Result Comment: This test is not yet approved or cleared by the [place] FDA. When there are no FDA-approved or cleared tests available, and other criteria are met, FDA can make tests available under an emergency access mechanism called an Emergency Use Authorization (EUA). The EUA for this test is supported by the [place] of Health and Human Service's (HHS's) declaration that circumstances exist to justify the emergency use of in vitro diagnostics for the detection and/or diagnosis of the virus that causes COVID-19. This EUA will remain in effect (meaning this test can be used) for the duration of the COVID-19 declaration justifying emergency of IVDs, unless it is terminated or revoked by FDA (after which the test may no longer be used).When diagnostic testing is negative, the possibility of a false negative should be considered inthe context of a patient's recent exposures and the presence of clinical signs and symptomsconsistent with SARS-CoV-2. Performed By: #### C VDTB ####[facility] Njexfbcgxf[address] [place], [place] [address]Ga. Lizandro Hemphill CBC AUTO DIFFon 10-31-2021 BASO # 0.1 103/ul Normal 0.0-0.1 [facility] Comment on above: Performed By: #### C BC ####[facility] Cnekrhlmuu8[address] [place], [place] [address]Rn. Lizandro Hemphill Basophils/100 WBC (Bld) 0.7 % Normal 0.2-2.0 The [facility] Comment on above: Performed By: #### C BC ####[facility] Xycslweqdo4013 [place] [id number]. Lizandro Hemphill EO # 0.1 103/ul Normal 0.0-0.7 [facility] Comment on above: Performed By: #### C BC ####[facility] Vsnqzyatov9878 [place] [address]Dr. Lizandro Hemphill Eosinophils/100 WBC (Bld) 0.7 % Critically low 0.9-7.0 [facility] Comment on above: Performed By: #### C BC ####[facility] Nuqacqgbzl[address] [place], [place] [address]Dr. Lizandro Hemphill Erythrocyte distribution width (RBC) [Ratio] 17.5 % Critically high 11.0-15.0 [facility] Comment on above: Performed By: #### C BC ####[facility] Jtxjfvxkbe[address] [place], [place] [address]Dr. Lizandro Hemphill Hematocrit (Bld) [Volume fraction] 39.6 % Normal 36.0-48.0 [facility] Comment on above: Performed By: #### C BC ####[facility] Yeppafvehp[address] [place], [place] [address]Dr. Lizandro Hemphill Hemoglobin (Bld) [Mass/Vol] 12.6 g/dL Normal 12.0-16.0 [facility] Comment on above: Performed By: #### C BC ####[facility] Wievmvofcq[address] [place], [place] [address]Dr. Lizandro Hemphill IG # 0.04 10e3/ul Critically high 0.00-0.03 [facility] Comment on above: Performed By: #### C BC ####[facility] Hkddfogezx2[address] [place], [place] [address]Dr. Lizandro Hemphill IG % 0.4 % Normal 0.0-0.5 [facility] Comment on above: Performed By: #### C BC ####[facility] Gxcogykwaf4[address] [place], [place] [address]Dr. Lizandro Hemphill LYMPH # 1.8 103/ul Normal 1.2-3.8 The [facility] Comment on above: Performed By: #### C BC ####[facility] Bocjcixffi12[address] [place] [id number]. Shanikaannie Hemphill Lymphocytes/100 WBC (Bld) 17.4 % Critically low 20.5-60.0 [facility] Comment on above: Performed By: #### C BC ####[facility] Bnbyogwkvf3155 [place] [phone]. Lizandro Hemphill MANUAL DIFF REQ NO Normal [facility] Comment on above: Performed By: #### C BC ####[facility] Awoejizlst9590 [place] [phone]. Lizandro Hemphill MCH (RBC) [Entitic mass] 26.9 pg Normal 26.7-34.0 [facility] Comment on above: Performed By: #### C BC ####[facility] Z[address]zjgublp[address] [place], [place] [address]Dr. Lizandro Hemphill MCHC (RBC) [Mass/Vol] 31.8 g/dL Normal 29.9-35.2 [facility] Comment on above: Performed By: #### C BC ####[facility] Bfdrtltxjd[address] [place], [place] [address]Dr. Lizandro Hemphill MCV (RBC) [Entitic vol] 84.6 fL Normal 81.0-99.0 [facility] Comment on above: Performed By: #### C BC ####[facility] Tqvnddltvm[address] [place], [place] [address]Dr. Lizandro Hemphill MONO # 0.9 103/ul Critically high 0.3-0.8 [facility] Comment on above: Performed By: #### C BC ####[facility] Itnvvoyntb[address] [place], [place] [address]Dr. Lizandro Hemphill Monocytes/100 WBC (Bld) 8.5 % Normal 1.7-12.0 The [facility] Comment on above: Performed By: #### C BC ####[facility] Vcgefjeouj[address] [place], [place] [address]Dr. Lizandro Hemphill NEUT # 7.5 103/ul Critically high 1.4-6.5 [facility] Comment on above: Performed By: #### C BC ####[facility] Muvkyogibf3334 [place] [id number]. Lizandro Hemphill Neutrophils/100 WBC (Bld) 72.3 % Normal 43.0-75.0 [facility] Comment on above: Performed By: #### C BC ####[facility] Clytzdkaix3983 [place] [phone]. Lizandro Hemphill Platelet mean volume (Bld) [Entitic vol] 10.6 fL Normal 9.5-13.5 [facility] Comment on above: Performed By: #### C BC ####[facility] Mxujuiuvlj6760 [place] [id number]. Lizandro Hemphill PLT 356 103/ul Normal 150-450 [facility] Comment on above: Performed By: #### C BC ####[facility] Lwvvcpsviv5602 [place] [address]Dr. Lizandro Joby RBC 4.68 106/ul Normal 4.20-5.40 [facility] Comment on above: Performed By: #### C BC ####[facility] Nawkqxoztn6759 [place] [phone]. Lizandro Hemphill WBC 10.4 103/ul Normal 4.0-11.0 The [facility] Comment on above: Performed By: #### C BC ####[facility] Olmhzinevq[address]99 [place] [phone]. Lizandro Joby CT HEAD WO CONon 10-31-2021 CT HEAD WO CON Normal [facility] PROF CHEM 8 (BAS METB)on Anion gap [Moles/Vol] 13.0 mmol/L Normal [facility] Comment on above: Performed By: #### H RICARDO, BMP ####[facility] Spgglmsong[address] [place] [phone]. Lizandro Joby Calcium [Mass/Vol] 9.4 mg/dL Normal 8.5-10.1 [facility] Comment on above: Performed By: #### H RICARDO, BMP ####[facility] Rf[address]yojsysc[address] [place], [place] [address]Dr. Lizandro Hemphill Chloride [Moles/Vol] 104 mmol/L Normal 98-107 [facility] Comment on above: Performed By: #### Alistair SILVA, BMP ####[facility] Sfhoxzmakh1454 [place] [address]Dr. Lizandro Hemphill CO2 [Moles/Vol] 25.7 mmol/L Normal 21.0-32.0 [facility] Comment on above: Performed By: #### Alistair SILVA, BMP ####[facility] Jejdefolzt9916 [place] [address]Dr. Lizandro Hemphill Creatinine [Mass/Vol] 0.82 mg/dL Normal 0.55-1.02 The [facility] Comment on above: Performed By: #### Alistair SILVA, BMP ####[facility] Kzqqsdwmsl3158 [place] [address]Dr. Lizandro Hemphill EGFR-AF CHADIAN >60 Normal >=60 [facility] Comment on above: Performed By: #### Alistair SILVA, BMP ####[facility] Flljiqnnyw5765 [place] [address]Dr. Lizandro Hemphill EGFR-NON AF CHADIAN >60 Normal >=60 The [facility] Comment on above: Performed By: #### Alistair SILVA, BMP ####[facility] [address]mxviocajh[address] [place], [place] [address]Dr. Lizandro Hemphill Glucose [Mass/Vol] 105 mg/dL Normal 74-106 [facility] Comment on above: Performed By: #### Alistair SILVA, BMP ####[facility] Przebepnmj72[address] [place] [address]Dr. Lizandro Hemphill Potassium [Moles/Vol] 3.7 mmol/L Normal 3.5-5.1 The [facility] Comment on above: Performed By: #### Alistair SILVA, BMP ####[facility] Eqkulikxmo4267 [place] [address]Dr. Lizandro Hemphill Sodium [Moles/Vol] 139 mmol/L Normal 136-145 [facility] Comment on above: Performed By: #### Alistair SILVA, BMP ####[facility] Wnqxosfwyx5357 [place] [address]Dr. Lizandro Hemphill Urea nitrogen [Mass/Vol] 15.0 mg/dL Normal 7.0-18.0 The [facility] Comment on above: Performed By: #### H ELSA SILVA ####[facility] Xxpqgaecia2529 [place] [address]Dr. Lizandro Hemphill Urea nitrogen/Creatinin e [Mass ratio] 18.3 mg/mg Normal [facility] Comment on above: Performed By: #### H RICARDO, ELSA ####[facility] Adnsdhyqzr[address] [place] [address]Dr. Lizandro Hemphill PROTIMEon 10-31-2021 INR Coag (PPP) [Relative time] 1.35 {INR} Normal [facility] Comment on above: Performed By: #### P T ####[facility] [address]zmjotbf[address] [place], [place] [address]Dr. Lizandro Hemphill INR GUIDELINES SEE BELOW Normal [facility] Comment on above: Result Comment: GUEVARA RED INR: 2.0 - 3.0 CONDITIONS NOT LISTED BELOW 2.5 - 3.5 FOR PROSTHETIC HEART VALVE REPLACEMENT 2.5 - 3.5 RECURRENT THROMBOSIS Performed By: #### P T ####[facility] Arfpwbjhvw[address] [place], [place] [address]Dr. Lizandro Hemphill PT Coag (PPP) [Time] 14.3 s Critically high 9.0-11.6 The [facility] Comment on above: Performed By: #### P T ####[facility] Nmtohofmef[address] [place], [place] [address]Dr. Lizandro Hemphill TROPONIN, HIGH SENSITIVITYon 10-31-2021 HSTROP 4.9 pg/mL Normal 4.0-51.3 The [facility] Comment on above: Result Comment: CUT- OFF POINTS HAVE BEEN ESTABLISHED BASED ON THE FOURTH UNIVERSAL DEFINITIONS OF MYOCARDIALINFARCTION. THE UPPER REFERENCE LIMIT (URL) OF TROPONIN, DEFINED THE 99TH PERCENTILE OFcTnI DISTRIBUTION IN A REFERENCE POPULATION, HAS BEEN CONFIRMED THE DECISION THRESHOLDFOR [place] DIAGNOSIS. Performed By: #### H RICARDO, ELSA ####[facility] Ejwltdmxqc4[address] [place], [place] [address]Dr. Lizandro Hemphill CBC AUTO DIFFon 10-30-2021 BASO # 0.1 103/ul Normal 0.0-0.1 [facility] Comment on above: Performed By: #### C BC ####[facility] Wkvycqhchu[address] [place] [address]Dr. Lizandro Hemphill Basophils/100 WBC (Bld) 0.8 % Normal 0.2-2.0 The [facility] Comment on above: Performed By: #### C BC ####[facility] Icykwmshqc9245 [place] [address]Dr. Lizandro Hemphill EO # 0.0 103/ul Normal 0.0-0.7 [facility] Comment on above: Performed By: #### C BC ####[facility] Gtbfljotlo[address] [place], [place] [address]Dr. Lizandro Hemphill Eosinophils/100 WBC (Bld) 0.4 % Critically low 0.9-7.0 The [facility] Comment on above: Performed By: #### C BC ####[facility] Ricdocowdr8[address] [place], [place] [address]Dr. Lizandro Hempihll Erythrocyte distribution width (RBC) [Ratio] 17.4 % Critically high 11.0-15.0 The [facility] Comment on above: Performed By: #### C BC ####[facility] Jflrvnljgb68[address] [place], [place] [address]Dr. Lizandro Hemphill Hematocrit (Bld) [Volume fraction] 39.7 % Normal 36.0-48.0 The [facility] Comment on above: Performed By: #### C BC ####[facility] Ivxexprkhm8046[address] [place], [place] [address]Dr. Lizandro Hemphill Hemoglobin (Bld) [Mass/Vol] 12.7 g/dL Normal 12.0-16.0 The [facility] Comment on above: Performed By: #### C BC ####[facility] Xyaghbdcsk237[address] [place], [place] [address]Dr. Lizandro Joby IG # 0.06 10e3/ul Critically high 0.00-0.03 [facility] Comment on above: Performed By: #### C BC ####[facility] Wamxyknyav7[address] [place] [id number]. Lizandro Hemphill IG % 0.5 % Normal 0.0-0.5 The [facility] Comment on above: Performed By: #### C BC ####[facility] Skvwrxbrpn9874 [place] [id number]. Lizandro Hemphill LYMPH # 1.8 103/ul Normal 1.2-3.8 The [facility] Comment on above: Performed By: #### C BC ####[facility] Adbbwqkjoi4380 [place] [id number]. Lizandro Joby Lymphocytes/100 WBC (Bld) 16.1 % Critically low 20.5-60.0 The [facility] Comment on above: Performed By: #### C BC ####[facility] Jbayewmadv[address] [place] [id number]. Lizandro Joby MANUAL DIFF REQ NO Normal [facility] Comment on above: Performed By: #### C BC ####[facility] Cdgztydyjr8925 [place] [id number]. Lizandro Joby MCH (RBC) [Entitic mass] 27.3 pg Normal 26.7-34.0 The [facility] Comment on above: Performed By: #### C BC ####[facility] Fftbennoey4323 [place] [id number]. Lizandro Hemphill MCHC (RBC) [Mass/Vol] 32.0 g/dL Normal 29.9-35.2 The [facility] Comment on above: Performed By: #### C BC ####[facility] Fhodsfamza3472 [place] [id number]. Lizandro Hemphill MCV (RBC) [Entitic vol] 85.4 fL Normal 81.0-99.0 The [facility] Comment on above: Performed By: #### C BC ####[facility] Zzzmwvgcyy3383 [place] [id number]. Shanikaannie Hemphill MONO # 1.2 103/ul Critically high 0.3-0.8 [facility] Comment on above: Performed By: #### C BC ####[facility] Qsjylwsqfe1432 [place] [id number]. Lizandro Hemphill Monocytes/100 WBC (Bld) 10.9 % Normal 1.7-12.0 The [facility] Comment on above: Performed By: #### C BC ####[facility] Xivuozblke9058 [place] [phone]. Lizandro Hemphill NEUT # 7.8 103/ul Critically high 1.4-6.5 [facility] Comment on above: Performed By: #### C BC ####[facility] Nhhswilcjx8094 [place] [id number]. Lizandro Hemphill Neutrophils/100 WBC (Bld) 71.3 % Normal 43.0-75.0 The [facility] Comment on above: Performed By: #### C BC ####[facility] Lsjupslooo0838 [place] [address]Dr. Lizandro Hemphill Platelet mean volume (Bld) [Entitic vol] 10.4 fL Normal 9.5-13.5 The [facility] Comment on above: Performed By: #### C BC ####[facility] Rahyplbrcl8508 [place] [phone]. Lizandro Hemphill PLT 324 103/ul Normal 150-450 The [facility] Comment on above: Performed By: #### C BC ####[facility] Cadychmohn3712 [place] [phone]. Lizandro Hemphill RBC 4.65 106/ul Normal 4.20-5.40 The [facility] Comment on above: Performed By: #### C BC ####[facility] Zvbkxnowxv5066 [place] [id number]. Lizandro Hemphill WBC 11.0 103/ul Normal 4.0-11.0 The [facility] Comment on above: Performed By: #### C BC ####[facility] Clxdldqixx72[address] [place] [address]Dr. Lizandro Hemphill PROF CHEM 8 (BAS METB)on Anion gap [Moles/Vol] 14.3 mmol/L Normal The [facility] Comment on above: Performed By: #### B MP ####[facility] Qiqggymbaq0077 [place] [phone]. Lizandro Hemphill Calcium [Mass/Vol] 9.1 mg/dL Normal 8.5-10.1 The [facility] Comment on above: Performed By: #### B MP ####[facility] Bdqufuvfan6420 [place] [phone]. Lizandro Hemphill Chloride [Moles/Vol] 104 mmol/L Normal 98-107 [facility] Comment on above: Performed By: #### B MP ####[facility] Cdbtccvpvw3842 [place] [phone]. Lizandro Hemphill CO2 [Moles/Vol] 26.7 mmol/L Normal 21.0-32.0 The [facility] Comment on above: Performed By: #### B MP ####[facility] Xlwahzxagz[address] [place], [place] [address]Dr. Lizandro Hemphill Creatinine [Mass/Vol] 0.91 mg/dL Normal 0.55-1.02 [facility] Comment on above: Performed By: #### B MP ####[facility] Mifrnlyzoq8257 [place] [address]Dr. Lizandro Hemphill EGFR-AF CHADIAN >60 Normal >=60 The [facility] Comment on above: Performed By: #### B MP ####[facility] Eoisdcrctc2718[address] [place], [place] [address]Dr. Lizandro Hemphill EGFR-NON AF CHADIAN >60 Normal >=60 [facility] Comment on above: Performed By: #### B MP ####[facility] Syqzaraepf0334 [place] [address]Dr. Lizandro Hemphill Glucose [Mass/Vol] 119 mg/dL Critically high 74-106 [facility] Comment on above: Performed By: #### B MP ####[facility] Bnzdqskigd7567[address] [place], [place] [address]Dr. Lizandro Hemphill Potassium [Moles/Vol] 4.0 mmol/L Normal 3.5-5.1 The [facility] Comment on above: Performed By: #### B MP ####[facility] Sgsofjpvlh21[address] [place], [place] [address]Dr. Lizandro Hemphill Sodium [Moles/Vol] 141 mmol/L Normal 136-145 [facility] Comment on above: Performed By: #### B MP ####[facility] Ymsexodnfv2692 [place] [address]Dr. Lizandro Hemphill Urea nitrogen [Mass/Vol] 18.0 mg/dL Normal 7.0-18.0 [facility] Comment on above: Performed By: #### B MP ####[facility] Amqdjhuinz6937[address] [place], [place] [address]Dr. Lizandro Hemphill Urea nitrogen/Creatinin e [Mass ratio] 19.8 mg/mg Normal [facility] Comment on above: Performed By: #### B MP ####[facility] Okmlxeoctm120[address] [place], [place] [address]Dr. Lizandro Hemphill CULTURE URINEon 10-27-2021 CULTURE URINE Normal [facility] Comment on above: Performed By: #### U RCX ####[facility] Ylfyvtuarw[address] [place], [place] [address]Dr. Lizandro Hemphill PROTIMEon 10-25-2021 INR Coag (PPP) [Relative time] 1.09 {INR} Normal The [facility] Comment on above: Performed By: #### P T ####[facility] Ipcimnhqdn35[address] [place], [place] [address]Dr. Lizandro Hemphill INR GUIDELINES SEE BELOW Normal [facility] Comment on above: Result Comment: GUEVARA RED INR: 2.0 - 3.0 CONDITIONS NOT LISTED BELOW 2.5 - 3.5 FOR PROSTHETIC HEART VALVE REPLACEMENT 2.5 - 3.5 RECURRENT THROMBOSIS Performed By: #### P T ####[facility] Kyqzjucekq8617[address] [place], [place] [address]Dr. Lizandro Hemphill PT Coag (PPP) [Time] 11.7 s Critically high 9.0-11.6 The [facility] Comment on above: Performed By: #### P T ####[facility] Aqleaisxgz5937[address] [place], [place] [address]Dr. Lizandro Hemphill CBC AUTO DIFFon 10-21-2021 BASO # 0.1 103/ul Normal 0.0-0.1 [facility] Comment on above: Performed By: #### C BC ####[facility] Nohjohmaep4[address] [place], [place] [address]Dr. Lizandro Hemphill Basophils/100 WBC (Bld) 1.2 % Normal 0.2-2.0 The [facility] Comment on above: Performed By: #### C BC ####[facility] Svvjzqesdz029[address] [place], [place] [address]Dr. Lizandro Hemphill EO # 0.2 103/ul Normal 0.0-0.7 The [facility] Comment on above: Performed By: #### C BC ####[facility] Kvrfomgrip0034[address] [place], [place] [address]Dr. Lizandro Hemphill Eosinophils/100 WBC (Bld) 4.5 % Normal 0.9-7.0 The [facility] Comment on above: Performed By: #### C BC ####[facility] Hozwruwdmr2047[address] [place], [place] [address]Dr. Lizandro Hemphill Erythrocyte distribution width (RBC) [Ratio] 17.0 % Critically high 11.0-15.0 The [facility] Comment on above: Performed By: #### C BC ####[facility] Ymyrhryjyt20[address] [place], [place] [address]Dr. Lizandro Hemphill Hematocrit (Bld) [Volume fraction] 34.8 % Critically low 36.0-48.0 The [facility] Comment on above: Performed By: #### C BC ####[facility] Nlkczgftcy66[address] [place], [place] [address]Dr. Lizandro Hemphill Hemoglobin (Bld) [Mass/Vol] 11.3 g/dL Critically low 12.0-16.0 The [facility] Comment on above: Performed By: #### C BC ####[facility] Jqopqkokmf7964[address] [place], [place] [address]Dr. Lizandro Hemphill IG # 0.01 10e3/ul Normal 0.00-0.03 The [facility] Comment on above: Performed By: #### C BC ####[facility] Ajsmmsczoj7375[address] [place], [place] [address]Dr. Lizandro Hemphill IG % 0.2 % Normal 0.0-0.5 [facility] Comment on above: Performed By: #### C BC ####[facility] Xhrtawqwsu5923 [place] [address]DrCiro Shanikaannie Hemphill LYMPH # 1.6 103/ul Normal 1.2-3.8 The [facility] Comment on above: Performed By: #### C BC ####[facility] Syjzwwanks7746 [place] [address]DrCiro Hemphill Lymphocytes/100 WBC (Bld) 33.1 % Normal 20.5-60.0 [facility] Comment on above: Performed By: #### C BC ####[facility] Jbycevyukx260[address] [place], [place] [address]DrCiro Hemphill MANUAL DIFF REQ NO Normal [facility] Comment on above: Performed By: #### C BC ####[facility] Xstcmrxtpa6[address] [place], [place] [address]Dr. Shanikaannie Hemphill MCH (RBC) [Entitic mass] 28.0 pg Normal 26.7-34.0 [facility] Comment on above: Performed By: #### C BC ####[facility] Kfusmptqkk[address] [place], [place] [address]Dr. Lizandro Joby MCHC (RBC) [Mass/Vol] 32.5 g/dL Normal 29.9-35.2 The [facility] Comment on above: Performed By: #### C BC ####[facility] Qbxeuxmcwd3836[address] [place], [place] [address]DrCiro Hemphill MCV (RBC) [Entitic vol] 86.4 fL Normal 81.0-99.0 The [facility] Comment on above: Performed By: #### C BC ####[facility] Ctbfegfykh[address] [place], [place] [address]DrCiro Hemphill MONO # 0.7 103/ul Normal 0.3-0.8 The [facility] Comment on above: Performed By: #### C BC ####[facility] Xmalslfzhe[address] [place], [place] [id number] Hemphill Monocytes/100 WBC (Bld) 14.3 % Critically high 1.7-12.0 The [facility] Comment on above: Performed By: #### C BC ####[facility] Usjrmitkxy37[address] [place] [address]Dr. Lizandro Hemphill NEUT # 2.3 103/ul Normal 1.4-6.5 The [facility] Comment on above: Performed By: #### C BC ####[facility] Bhxrurfaip8738 [place] [address]Dr. Lizandro Hemphill Neutrophils/100 WBC (Bld) 46.7 % Normal 43.0-75.0 The [facility] Comment on above: Performed By: #### C BC ####[facility] Sqverqtiio5671 [place] [address]Dr. Lizandro Hemphill Platelet mean volume (Bld) [Entitic vol] 10.9 fL Normal 9.5-13.5 The [facility] Comment on above: Performed By: #### C BC ####[facility] Aqtauvrxox0976 [place] [address]Dr. Lizandro Hemphill PLT 213 103/ul Normal 150-450 The [facility] Comment on above: Performed By: #### C BC ####[facility] Jxqztunyqa725[address] [place], [place] [address]Dr. Lizandro Hemphill RBC 4.03 106/ul Critically low 4.20-5.40 [facility] Comment on above: Performed By: #### C BC ####[facility] Ctfqeshkzy1809 [place] [address]Dr. Lizandro Hemphill WBC 4.9 103/ul Normal 4.0-11.0 The [facility] Comment on above: Performed By: #### C BC ####[facility] Ztyjetfqmq6467 [place] [id number]. Lizandro Hemphill CRPon 10-21-2021 CRP [Mass/Vol] mg/L Normal <=1.0 [facility] Comment on above: Performed By: #### C RP, CMP ####[facility] Rmxarjthcr4166 [place] [address]Dr. Lizandro Joby Covid-19 PCR (CVDTBH)on 09-24 SARS-CoV-2 (COVID-19) RNA VERITO+probe Ql (Unsp spec) Not detected Normal NOT DETECTED The [facility] Comment on above: Result Comment: This test is not yet approved or cleared by the [place] FDA. When there are no FDA-approved or cleared tests available, and other criteria are met, FDA can make tests available under an emergency access mechanism called an Emergency Use Authorization (EUA). The EUA for this test is supported by the [place] of Health and Human Service's (HHS's) declaration that circumstances exist to justify the emergency use of in vitro diagnostics for the detection and/or diagnosis of the virus that causes COVID-19. This EUA will remain in effect (meaning this test can be used) for the duration of the COVID-19 declaration justifying emergency of IVDs, unless it is terminated or revoked by FDA (after which the test may no longer be used).When diagnostic testing is negative, the possibility of a false negative should be considered inthe context of a patient's recent exposures and the presence of clinical signs and symptomsconsistent with SARS-CoV-2. Performed By: #### C VDTBH ####[facility] Jlamwmugpg[address] [place], [place] [address]Dr. Lizandro Hemphill PROF 14(COMP METB)on 022 Albumin [Mass/Vol] 2.7 g/dL Critically low 3.4-5.0 Th [facility] Comment on above: Performed By: #### C RP, CMP ####[facility] Jqxtfwkyad5917[address] [place], [place] [address]DrCiro Hemphill Albumin/Globulin [Mass ratio] 0.8 {ratio} Normal [facility] Comment on above: Performed By: #### C RP, CMP ####[facility] Lxzbudralv33[address] [place], [place] [address]Dr. Lizandro Hemphill ALP [Catalytic activity/Vol] 86 U/L Normal 46-116 [facility] Comment on above: Performed By: #### C RP, CMP ####[facility] Gfilqicjxc937[address] [place], [place] [address]Dr. Lizandro Hemphill ALT [Catalytic activity/Vol] 23 U/L Normal 14-59 [facility] Comment on above: Performed By: #### C RP, CMP ####[facility] Bhbdyeysxe2289 [place] [address]Dr. Lizandro Hemphill Anion gap [Moles/Vol] 10.8 mmol/L Normal [facility] Comment on above: Performed By: #### C RP, CMP ####[facility] Pibmnvikmm6119 [place] [address]Dr. Lizandro Joby AST [Catalytic activity/Vol] 25 U/L Normal 15-37 [facility] Comment on above: Performed By: #### C RP, CMP ####[facility] Iluzuoxibu7025[address] [place], [place] [address]Dr. Lizandro Hemphill Bilirubin [Mass/Vol] 0.1 mg/dL Critically low 0.2-1.0 [facility] Comment on above: Performed By: #### C RP, CMP ####[facility] Ymrjxxzrfr2745[address] [place], [place] [address]Dr. Lizandro Hemphill Calcium [Mass/Vol] 8.0 mg/dL Critically low 8.5-10.1 [facility] Comment on above: Performed By: #### C RP, CMP ####[facility] Oetzjnowwv33[address] [place], [place] [address]Dr. Lizandro Hemphill Chloride [Moles/Vol] 107 mmol/L Normal 98-107 [facility] Comment on above: Performed By: #### C RP, CMP ####[facility] Nnofnvsybg021[address] [place], [place] [address]Dr. Lizandro Hemphill CO2 [Moles/Vol] 26.7 mmol/L Normal 21.0-32.0 The [facility] Comment on above: Performed By: #### C RP, CMP ####[facility] Jmyybphjsg80[address] [place], [place] [address]Dr. Lizandro Hemphill Creatinine [Mass/Vol] 0.80 mg/dL Normal 0.55-1.02 [facility] Comment on above: Performed By: #### C RP, CMP ####[facility] Bemfmgtuem3576[address] [place], [place] [address]Dr. Lizandro Hemphill EGFR-AF CHADIAN >60 Normal >=60 [facility] Comment on above: Performed By: #### C RP, CMP ####[facility] Tpoytleipn3785 [place] [id number]. Lizandro Hemphill EGFR-NON AF CHADIAN >60 Normal >=60 [facility] Comment on above: Performed By: #### C RP, CMP ####[facility] Onzrtvzxfk4392 [place] [id number]. Lizandro Hemphill Globulin (S) [Mass/Vol] 3.2 g/dL Normal [facility] Comment on above: Performed By: #### C RP, CMP ####[facility] Zuhykqfaov12[address] [place], [place] [address]Dr. Lizandro Joby Glucose [Mass/Vol] 108 mg/dL Critically high 74-106 [facility] Comment on above: Performed By: #### C RP, CMP ####[facility] Ydzqyypzzc0343 [place] [address]Dr. Lizandro Hemphill Potassium [Moles/Vol] 3.5 mmol/L Normal 3.5-5.1 [facility] Comment on above: Performed By: #### C RP, CMP ####[facility] Iwdpgzfwax7164[address] [place], [place] [address]Dr. Lizandro Joby Protein [Mass/Vol] 5.9 g/dL Critically low 6.4-8.2 Th [facility] Comment on above: Performed By: #### C RP, CMP ####[facility] Mvwltxxdee08[address] [place], [place] [address]Dr. Lizandro Hemphill Sodium [Moles/Vol] 141 mmol/L Normal 136-145 [facility] Comment on above: Performed By: #### C RP, CMP ####[facility] Atwhvaehzk1722[address] [place], [place] [address]Dr. Lizandro Hemphill Urea nitrogen [Mass/Vol] 9.0 mg/dL Normal 7.0-18.0 [facility] Comment on above: Performed By: #### C RP, CMP ####[facility] Avctemotos[address] [place], [place] [address]DrCiro Hemphill Urea nitrogen/Creatinin e [Mass ratio] 11.2 mg/mg Normal [facility] Comment on above: Performed By: #### C RP, CMP ####[facility] Frotrwswmn[address] [place], [place] [address]DrCiro Lizandro Hemphill PROTIMEon 10-21-2021 INR Coag (PPP) [Relative time] 2.13 {INR} Normal [facility] Comment on above: Performed By: #### P T ####[facility] Lxbdvpzhvi[address] [place], [place] [address]DrCiro Hemphill INR GUIDELINES SEE BELOW Normal [facility] Comment on above: Result Comment: GUEVARA RED INR: 2.0 - 3.0 CONDITIONS NOT LISTED BELOW 2.5 - 3.5 FOR PROSTHETIC HEART VALVE REPLACEMENT 2.5 - 3.5 RECURRENT THROMBOSIS Performed By: #### P T ####[facility] Vnfviksehm[address] [place], [place] [address]DrCiro Hemphill PT Coag (PPP) [Time] 21.9 s Critically high 9.0-11.6 [facility] Comment on above: Performed By: #### P T ####[facility] Fzgdmgidzu[address] [place], [place] [address]DrCiro Hemphill CBC AUTO DIFFon 10-20-2021 BASO # 0.1 103/ul Normal 0.0-0.1 [facility] Comment on above: Performed By: #### C BC ####[facility] Tcsgmjheln[address] [place], [place] [address]DrCiro Hemphill Basophils/100 WBC (Bld) 1.3 % Normal 0.2-2.0 The [facility] Comment on above: Performed By: #### C BC ####[facility] Udoxydhpgp[address] [place], [place] [address]DrCiro Hemphill EO # 0.2 103/ul Normal 0.0-0.7 The [facility] Comment on above: Performed By: #### C BC ####[facility] Voskepxhrf[address] [place], [place] [address]DrCiro Hemphill Eosinophils/100 WBC (Bld) 3.3 % Normal 0.9-7.0 The [facility] Comment on above: Performed By: #### C BC ####[facility] Vpjrabmakh0890[address] [place], [place] [address]Dr. Lizandro Hemphill Erythrocyte distribution width (RBC) [Ratio] 17.1 % Critically high 11.0-15.0 [facility] Comment on above: Performed By: #### C BC ####[facility] Obpxyfizaw488[address] [place], [place] [address]Dr. Lizandro Hemphill Hematocrit (Bld) [Volume fraction] 35.4 % Critically low 36.0-48.0 [facility] Comment on above: Performed By: #### C BC ####[facility] Pcpjfbkmje3738[address] [place], [place] [address]DrCiro Lizandro Joby Hemoglobin (Bld) [Mass/Vol] 11.1 g/dL Critically low 12.0-16.0 [facility] Comment on above: Result Comment: Repe ated to verify result Performed By: #### C BC ####[facility] Gfolulhyir836[address] [place], [place] [address]Dr. Lizandro Hemphill IG # 0.01 10e3/ul Normal 0.00-0.03 [facility] Comment on above: Performed By: #### C BC ####[facility] Kezyznjtpf9318[address] [place], [place] [address]Dr. Lizandro Hemphill IG % 0.2 % Normal 0.0-0.5 The [facility] Comment on above: Performed By: #### C BC ####[facility] Cxcrorivtk[address] [place], [place] [address]DrCiro Hemphill LYMPH # 1.1 103/ul Critically low 1.2-3.8 [facility] Comment on above: Performed By: #### C BC ####[facility] Bcvrdlkeou234[address] [place], [place] [address]DrCiro Hemphill Lymphocytes/100 WBC (Bld) 25.1 % Normal 20.5-60.0 The [facility] Comment on above: Performed By: #### C BC ####[facility] Sykhxzpigq1610[address] [place], [place] [address]Dr. Lizandro Hemphill MANUAL DIFF REQ NO Normal [facility] Comment on above: Performed By: #### C BC ####[facility] Pwvpgaivla[address] [place] [address]Dr. Lizandro Joby MCH (RBC) [Entitic mass] 27.3 pg Normal 26.7-34.0 The [facility] Comment on above: Performed By: #### C BC ####[facility] Xpgpdahfeo2918[address] [place], [place] [address]Dr. Lizandro Joby MCHC (RBC) [Mass/Vol] 31.4 g/dL Normal 29.9-35.2 The [facility] Comment on above: Performed By: #### C BC ####[facility] Arxvtzghub097[address] [place], [place] [address]Dr. Lizandro Hemphill MCV (RBC) [Entitic vol] 87.0 fL Normal 81.0-99.0 The [facility] Comment on above: Performed By: #### C BC ####[facility] Qscslpiaha6286[address] [place], [place] [address]Dr. Lizandro Hemphill MONO # 0.7 103/ul Normal 0.3-0.8 The [facility] Comment on above: Performed By: #### C BC ####[facility] Dwihqpsrvk8506[address] [place], [place] [address]Dr. Lizandro Hemphill Monocytes/100 WBC (Bld) 16.0 % Critically high 1.7-12.0 The [facility] Comment on above: Performed By: #### C BC ####[facility] Eqxexmetcr0145[address] [place], [place] [address]DrCiro Hemphill NEUT # 2.4 103/ul Normal 1.4-6.5 The [facility] Comment on above: Performed By: #### C BC ####[facility] Nozccxconm50[address] [place], [place] [address]DrCiro Hemphill Neutrophils/100 WBC (Bld) 54.1 % Normal 43.0-75.0 The [facility] Comment on above: Performed By: #### C BC ####[facility] Wlebhnpwax240[address] [place], [place] [address]Dr. Lizandro Hemphill Platelet mean volume (Bld) [Entitic vol] 10.4 fL Normal 9.5-13.5 The [facility] Comment on above: Performed By: #### C BC ####[facility] Dzpiwkzbhn64[address] [place] [address]Dr. Lizandro Hemphill PLT 202 103/ul Normal 150-450 The [facility] Comment on above: Performed By: #### C BC ####[facility] Nhxhxsotpt6[address] [place] [address]Dr. Lizandro Hemphill RBC 4.07 106/ul Critically low 4.20-5.40 [facility] Comment on above: Performed By: #### C BC ####[facility] Xtdtukrfda37[address] [place], [place] [address]Dr. Lizandro Hemphill WBC 4.5 103/ul Normal 4.0-11.0 The [facility] Comment on above: Performed By: #### C BC ####[facility] Diycismwif9169[address] [place], [place] [address]Dr. Lizandro Hemphill BASO # 0.1 103/ul Normal 0.0-0.1 The [facility] Comment on above: Performed By: #### C BC ####[facility] Nlfhaxuitc9740[address] [place], [place] [address]Dr. Lizandro Joby Basophils/100 WBC (Bld) 1.3 % Normal 0.2-2.0 The [facility] Comment on above: Performed By: #### C BC ####[facility] Vmpelwfvie6106[address] [place], [place] [address]Dr. Lizandro Hemphill EO # 0.1 103/ul Normal 0.0-0.7 The [facility] Comment on above: Performed By: #### C BC ####[facility] Ufvkeaxqjy1557[address] [place], [place] [address]Dr. Lizandro Joby Eosinophils/100 WBC (Bld) 2.6 % Normal 0.9-7.0 The [facility] Comment on above: Performed By: #### C BC ####[facility] Mbkfxylmph5164[address] [place], [place] [address]Dr. Lizandro Joby Erythrocyte distribution width (RBC) [Ratio] 17.1 % Critically high 11.0-15.0 The [facility] Comment on above: Performed By: #### C BC ####[facility] Rznzwsrtsd6[address] [place] [address]Dr. Lizandro Hemphill Hematocrit (Bld) [Volume fraction] 27.6 % Critically low 36.0-48.0 The [facility] Comment on above: Performed By: #### C BC ####[facility] Rgibcqlhvp0360[address] [place], [place] [address]Dr. Lizandro Hemphill Hemoglobin (Bld) [Mass/Vol] 8.9 g/dL Critically low 12.0-16.0 The [facility] Comment on above: Result Comment: joann carrizales notified Performed By: #### C BC ####[facility] Tynryjornb[address] [place], [place] [address]Dr. Lizandro Hemphill IG # 0.01 10e3/ul Normal 0.00-0.03 The [facility] Comment on above: Performed By: #### C BC ####[facility] Saugffkzal4538[address] [place], [place] [address]Dr. Lizandro Hemphill IG % 0.2 % Normal 0.0-0.5 The [facility] Comment on above: Performed By: #### C BC ####[facility] Jstffrvfmz9249[address] [place], [place] [address]Dr. Lizandro Hemphill LYMPH # 1.8 103/ul Normal 1.2-3.8 The [facility] Comment on above: Performed By: #### C BC ####[facility] Wqakdeukxc2635[address] [place], [place] [address]Dr. Lizandro Hemphill Lymphocytes/100 WBC (Bld) 32.2 % Normal 20.5-60.0 The [facility] Comment on above: Performed By: #### C BC ####[facility] Retvuxkzeq264[address] [place], [place] [address]DrCiro Hemphill MANUAL DIFF REQ NO Normal [facility] Comment on above: Performed By: #### C BC ####[facility] Jfcyaoclbd2927[address] [place], [place] [address]DrCiro Hemphill MCH (RBC) [Entitic mass] 27.8 pg Normal 26.7-34.0 The [facility] Comment on above: Performed By: #### C BC ####[facility] Nf[address]zlrtgj18[address] [place] [address]Dr. Lizandro Hemphill MCHC (RBC) [Mass/Vol] 32.2 g/dL Normal 29.9-35.2 The [facility] Comment on above: Performed By: #### C BC ####[facility] Gspdfuppav[address] [place] [address]Dr. Lizandro Hemphill MCV (RBC) [Entitic vol] 86.3 fL Normal 81.0-99.0 The [facility] Comment on above: Performed By: #### C BC ####[facility] Xjhuzmhawv9524[address] [place], [place] [address]Dr. Lizandro Joby MONO # 0.7 103/ul Normal 0.3-0.8 The [facility] Comment on above: Performed By: #### C BC ####[facility] Wcskaqhnba267[address] [place], [place] [address]Dr. Lizandro Joby Monocytes/100 WBC (Bld) 13.0 % Critically high 1.7-12.0 The [facility] Comment on above: Performed By: #### C BC ####[facility] Sslhjactjr014[address] [place], [place] [address]Dr. Lizandro Hemphill NEUT # 2.8 103/ul Normal 1.4-6.5 The [facility] Comment on above: Performed By: #### C BC ####[facility] Gtuxnjzmeh74[address] [place], [place] [address]Dr. Shanikaannie Hemphill Neutrophils/100 WBC (Bld) 50.7 % Normal 43.0-75.0 The [facility] Comment on above: Performed By: #### C BC ####[facility] Gmsxuqvjub48[address] [place], [place] [address]Dr. Lizandro Hemphill Platelet mean volume (Bld) [Entitic vol] 11.0 fL Normal 9.5-13.5 The [facility] Comment on above: Performed By: #### C BC ####[facility] Kxiwbojdoe[address] [place] [id number]. Lizandro Hemphill PLT 241 103/ul Normal 150-450 The [facility] Comment on above: Performed By: #### C BC ####[facility] Tidoucvqec27[address] [place] [id number]. Lizandro Hemphill RBC 3.20 106/ul Critically low 4.20-5.40 [facility] Comment on above: Performed By: #### C BC ####[facility] Ucojofrpaa5[address] [place] [id number]. Lizandro Hemphill WBC 5.5 103/ul Normal 4.0-11.0 [facility] Comment on above: Performed By: #### C BC ####[facility] Hfdqgfcufg8[address] [place] [address]Dr. Lizandro Hemphill CRPon 10-20-2021 CRP [Mass/Vol] mg/L Normal <=1.0 [facility] Comment on above: Performed By: #### C RP, CMP ####[facility] Guwxidhwvz67[address] [place] [address]Dr. Lizandro Joby PROF 14(COMP METB)on 022 Albumin [Mass/Vol] 2.5 g/dL Critically low 3.4-5.0 [facility] Comment on above: Performed By: #### C RP, CMP ####[facility] Asjglahtfn[address] [place] [address]Dr. Lizandro Hemphill Albumin/Globulin [Mass ratio] 0.9 {ratio} Normal [facility] Comment on above: Performed By: #### C RP, CMP ####[facility] Gxokbhzega[address] [place] [address]Dr. Lizandro Joby ALP [Catalytic activity/Vol] 85 U/L Normal 46-116 The [facility] Comment on above: Performed By: #### C RP, CMP ####[facility] Tlbonoozrw68[address] [place] [address]Dr. Lizandro Hemphill ALT [Catalytic activity/Vol] 26 U/L Normal 14-59 [facility] Comment on above: Performed By: #### C RP, CMP ####[facility] Xuigeiusdg0321 [place] [id number]. Lizandro Hemphill Anion gap [Moles/Vol] 10.8 mmol/L Normal [facility] Comment on above: Performed By: #### C RP, CMP ####[facility] Rztqleohsi6797[address] [place], [place] [address]Dr. Lizandro Hemphill AST [Catalytic activity/Vol] 39 U/L Critically high 15-37 The [facility] Comment on above: Performed By: #### C RP, CMP ####[facility] Rbucdchuuv0256[address] [place], [place] [address]Dr. Lizandro Hemphill Bilirubin [Mass/Vol] 0.2 mg/dL Normal 0.2-1.0 The [facility] Comment on above: Performed By: #### C RP, CMP ####[facility] Zymuskaemm717[address] [place], [place] [address]Dr. Lizandro Hemphill Calcium [Mass/Vol] 7.6 mg/dL Critically low 8.5-10.1 Th [facility] Comment on above: Performed By: #### C RP, CMP ####[facility] Anqmehqqas2689[address] [place], [place] [address]Dr. Lizandro Hemphill Chloride [Moles/Vol] 111 mmol/L Critically high 98-107 [facility] Comment on above: Performed By: #### C RP, CMP ####[facility] Uivvdcxwpo1719[address] [place], [place] [address]Dr. Lizandro Hemphill CO2 [Moles/Vol] 24.6 mmol/L Normal 21.0-32.0 The [facility] Comment on above: Performed By: #### C RP, CMP ####[facility] Ohslcyrcey1264[address] [place], [place] [address]Dr. Lizandro Hemphill Creatinine [Mass/Vol] 0.72 mg/dL Normal 0.55-1.02 The [facility] Comment on above: Performed By: #### C RP, CMP ####[facility] Wrtguamwar5436[address] [place], [place] [address]Dr. Lizandro Joby EGFR-AF CHADIAN >60 Normal >=60 The [facility] Comment on above: Performed By: #### C RP, CMP ####[facility] Hvoqpestul64[address] [place] [address]Dr. Lizandro Hemphill EGFR-NON AF CHADIAN >60 Normal >=60 [facility] Comment on above: Performed By: #### C RP, CMP ####[facility] Qjgcqsqzde8451 [place] [address]Dr. Lizandro Hemphill Globulin (S) [Mass/Vol] 2.9 g/dL Normal [facility] Comment on above: Performed By: #### C RP, CMP ####[facility] Kczbzhifny879[address] [place], [place] [address]Dr. Lizandro Hemphill Glucose [Mass/Vol] 99 mg/dL Normal 74-106 [facility] Comment on above: Performed By: #### C RP, CMP ####[facility] Zgpsbkkxfd9[address] [place], [place] [address]Dr. Lizandro Hemphill Potassium [Moles/Vol] 3.4 mmol/L Critically low 3.5-5.1 [facility] Comment on above: Performed By: #### C RP, CMP ####[facility] Zkzltnyxaf9974[address] [place], [place] [address]Dr. Lizandro Hemphill Protein [Mass/Vol] 5.4 g/dL Critically low 6.4-8.2 Th [facility] Comment on above: Performed By: #### C RP, CMP ####[facility] Lphnkfvxhz7622[address] [place], [place] [address]Dr. Lizandro Hemphill Sodium [Moles/Vol] 143 mmol/L Normal 136-145 [facility] Comment on above: Performed By: #### C RP, CMP ####[facility] Nbykrigcwt5606 [place] [address]Dr. Lizandro Hemphill Urea nitrogen [Mass/Vol] 9.0 mg/dL Normal 7.0-18.0 [facility] Comment on above: Performed By: #### C RP, CMP ####[facility] Otaeducpla0730[address] [place], [place] [address]Dr. Lizandro Hemphill Urea nitrogen/Creatinin e [Mass ratio] 12.5 mg/mg Normal [facility] Comment on above: Performed By: #### C RP, CMP ####[facility] Pgfguumfmv18[address] [place] [id number]. Lizandro Hemphill PROTIMEon 10-20-2021 INR Coag (PPP) [Relative time] 1.94 {INR} Normal [facility] Comment on above: Performed By: #### P T ####[facility] Cjhtyzivhv[address] [place] [address]Dr. Lizandro Hemphill INR GUIDELINES SEE BELOW Normal [facility] Comment on above: Result Comment: GUEVARA RED INR: 2.0 - 3.0 CONDITIONS NOT LISTED BELOW 2.5 - 3.5 FOR PROSTHETIC HEART VALVE REPLACEMENT 2.5 - 3.5 RECURRENT THROMBOSIS Performed By: #### P T ####[facility] Ldbxowonyt3778[address] [place], [place] [address]Dr. Lizandro Hemphill PT Coag (PPP) [Time] 20.1 s Critically high 9.0-11.6 The [facility] Comment on above: Performed By: #### P T ####[facility] Odoyefvvjh6027[address] [place], [place] [address]Dr. Lizandro Hemphill US NEEL DOP LEG BILon 022 US NEEL DOP LEG CROW Normal The [facility] CBC AUTO DIFFon 10-19-2021 BASO # 0.1 103/ul Normal 0.0-0.1 The [facility] Comment on above: Performed By: #### C BC ####[facility] Yebrbbrrli067[address] [place], [place] [address]Dr. Lizandro Hemphill Basophils/100 WBC (Bld) 1.4 % Normal 0.2-2.0 The [facility] Comment on above: Performed By: #### C BC ####[facility] Jssyopjrop8436[address] [place], [place] [address]DrCiro Hemphill EO # 0.2 103/ul Normal 0.0-0.7 The [facility] Comment on above: Performed By: #### C BC ####[facility] Oipxgyxohb1465[address] [place], [place] [address]DrCiro Hemphill Eosinophils/100 WBC (Bld) 3.3 % Normal 0.9-7.0 [facility] Comment on above: Performed By: #### C BC ####[facility] Thqrkngkbe[address] [place] [address]Dr. Lizandro Hemphill Erythrocyte distribution width (RBC) [Ratio] 17.0 % Critically high 11.0-15.0 [facility] Comment on above: Performed By: #### C BC ####[facility] Kiminfjwwm2530[address] [place], [place] [address]Dr. Lizandro Hemphill Hematocrit (Bld) [Volume fraction] 38.2 % Normal 36.0-48.0 [facility] Comment on above: Performed By: #### C BC ####[facility] Adyhvovhfm2148[address] [place], [place] [address]Dr. Lizandro Hemphill Hemoglobin (Bld) [Mass/Vol] 12.2 g/dL Normal 12.0-16.0 [facility] Comment on above: Performed By: #### C BC ####[facility] Zitncvejgt7018[address] [place], [place] [address]Dr. Lizandro Hemphill IG # 0.01 10e3/ul Normal 0.00-0.03 The [facility] Comment on above: Performed By: #### C BC ####[facility] Priditbgxy9495[address] [place], [place] [address]Dr. Lizandro Hemphill IG % 0.2 % Normal 0.0-0.5 [facility] Comment on above: Performed By: #### C BC ####[facility] Cyedqopvcc8665[address] [place], [place] [address]Dr. Lizandro Hemphill LYMPH # 1.7 103/ul Normal 1.2-3.8 The [facility] Comment on above: Performed By: #### C BC ####[facility] Xepreqypjo0729[address] [place], [place] [address]Dr. Lizandro Hemphill Lymphocytes/100 WBC (Bld) 32.2 % Normal 20.5-60.0 [facility] Comment on above: Performed By: #### C BC ####[facility] Ookxvphmuo7988[address] [place], [place] [address]Dr. Lizandro Hemphill MANUAL DIFF REQ NO Normal [facility] Comment on above: Performed By: #### C BC ####[facility] Ynhixisyzd[address] [place] [id number]. Lizandro Joby MCH (RBC) [Entitic mass] 27.4 pg Normal 26.7-34.0 [facility] Comment on above: Performed By: #### C BC ####[facility] Icqnychblr9688 [place] [id number]. Lizandro Joby MCHC (RBC) [Mass/Vol] 31.9 g/dL Normal 29.9-35.2 The [facility] Comment on above: Performed By: #### C BC ####[facility] Pqqzdmioiv0983 [place] [address]Dr. Lizandro Hemphill MCV (RBC) [Entitic vol] 85.7 fL Normal 81.0-99.0 [facility] Comment on above: Performed By: #### C BC ####[facility] L[address]pjxizjr[address] [place], [place] [address]Dr. Lizandro Hemphill MONO # 0.6 103/ul Normal 0.3-0.8 The [facility] Comment on above: Performed By: #### C BC ####[facility] [facility] Edswbzyxvl[address] [place], [place] [address]Dr. Lizandro Hemphill Monocytes/100 WBC (Bld) 12.5 % Critically high 1.7-12.0 [facility] Comment on above: Performed By: #### C BC ####[facility] Rehkxzexjz[address] [place], [place] [address]Dr. Lizandro Hemphill NEUT # 2.6 103/ul Normal 1.4-6.5 [facility] Comment on above: Performed By: #### C BC ####[facility] C[address] [place], [place] [id number] Hemphill Neutrophils/100 WBC (Bld) 50.4 % Normal 43.0-75.0 [facility] Comment on above: Performed By: #### C BC ####[facility] Jmfdlvqode[address] [place], [place] [id number] Hemphill Platelet mean volume (Bld) [Entitic vol] 10.4 fL Normal 9.5-13.5 [facility] Comment on above: Performed By: #### C BC ####[facility] Clqclaafeg[address] [place] [address]Dr. Lizandro Hemphill PLT 238 103/ul Normal 150-450 [facility] Comment on above: Performed By: #### C BC ####[facility] Cghzxelayq9[address] [place] [id number]. Lizandro Hemphill RBC 4.46 106/ul Normal 4.20-5.40 [facility] Comment on above: Performed By: #### C BC ####[facility] Mhohcjvsju84[address] [place] [address]Dr. Lizandro Hemphill WBC 5.1 103/ul Normal 4.0-11.0 [facility] Comment on above: Performed By: #### C BC ####[facility] Lefucacqrs7[address] [place] [address]Dr. Lizandro Hemphill CRPon 10-19-2021 CRP [Mass/Vol] mg/L Normal <=1.0 [facility] Comment on above: Performed By: #### C MP, CRP ####[facility] Auppmtwwxp[address] [place], [place] [address]Dr. Lizandro Hemphill H PYLORI ANTIBODY IGGon 09-24 H. PYLORI IGG ABS 0.24 Index Value Normal 0.00-0.79 [facility] Comment on above: Result Comment: Nega tive <0.80 Equivocal 0.80 - 0.89 Positive >0.89 Performed By: #### H PYLLC ####[facility] Vmkikzrezr64[address] [place] [address]DrCiro Hemphill PROF 14(COMP METB)on 022 Albumin [Mass/Vol] 2.9 g/dL Critically low 3.4-5.0 [facility] Comment on above: Performed By: #### C MP, CRP ####[facility] Whngsdwsgw2546 [place] [address]Dr. Lizandro Hemphill Albumin/Globulin [Mass ratio] 0.9 {ratio} Normal [facility] Comment on above: Performed By: #### C MP, CRP ####[facility] Bwuomgoesc[address] [place] [address]Dr. Lizandro Hemphill ALP [Catalytic activity/Vol] 100 U/L Normal 46-116 [facility] Comment on above: Performed By: #### C MP, CRP ####[facility] Zldmpkpojw7954 [place] [address]Dr. Lizandro Hemphill ALT [Catalytic activity/Vol] 24 U/L Normal 14-59 [facility] Comment on above: Performed By: #### C MP, CRP ####[facility] Medioltpsx3243 [place] [address]Dr. Shanikaannie Joby Anion gap [Moles/Vol] 11.6 mmol/L Normal [facility] Comment on above: Performed By: #### C MP, CRP ####[facility] Opwrxvrsac2549 [place] [address]Dr. Lizandro Hemphill AST [Catalytic activity/Vol] 29 U/L Normal 15-37 [facility] Comment on above: Performed By: #### C MP, CRP ####[facility] Syggwmffvy6[address] [place] [address]Dr. Lizandro Hemphill Bilirubin [Mass/Vol] 0.3 mg/dL Normal 0.2-1.0 [facility] Comment on above: Performed By: #### C MP, CRP ####[facility] Jjuowzrcpp0458 [place] [address]Dr. Lizandro Hemphill Calcium [Mass/Vol] 8.0 mg/dL Critically low 8.5-10.1 Th [facility] Comment on above: Performed By: #### C MP, CRP ####[facility] Ycylusgbun9482 [place] [address]Dr. Lizandro Hemphill Chloride [Moles/Vol] 107 mmol/L Normal 98-107 [facility] Comment on above: Performed By: #### C MP, CRP ####[facility] Pjjntbnagl4266 [place] [address]Dr. Lizandro Hemphill CO2 [Moles/Vol] 22.9 mmol/L Normal 21.0-32.0 [facility] Comment on above: Performed By: #### C MP, CRP ####[facility] Xvwpotjkcn7059 [place] [id number]. Lizandro Hemphill Creatinine [Mass/Vol] 0.65 mg/dL Normal 0.55-1.02 [facility] Comment on above: Performed By: #### C MP, CRP ####[facility] Rutkuxekpr8057 [place] [id number]. Lizandro Hemphill EGFR-AF CHADIAN >60 Normal >=60 [facility] Comment on above: Performed By: #### C MP, CRP ####[facility] Entwknhvak2268 [place] [phone]. Lizandro Hemphill EGFR-NON AF CHADIAN >60 Normal >=60 [facility] Comment on above: Performed By: #### C MP, CRP ####[facility] Xzkkxsippj7032 [place] [address]Dr. Lizandro Joby Globulin (S) [Mass/Vol] 3.4 g/dL Normal [facility] Comment on above: Performed By: #### C MP, CRP ####[facility] Gngcbybedi3375 [place] [id number]. Lizandro Hemphill Glucose [Mass/Vol] 93 mg/dL Normal 74-106 [facility] Comment on above: Performed By: #### C MP, CRP ####[facility] Vyngutvbgf4658 [place] [phone]. Lizandro Hemphill Potassium [Moles/Vol] 3.5 mmol/L Normal 3.5-5.1 [facility] Comment on above: Performed By: #### C MP, CRP ####[facility] Pfnaoearwp2852 [place] [phone]. Lizandro Hemphill Protein [Mass/Vol] 6.3 g/dL Critically low 6.4-8.2 Th [facility] Comment on above: Performed By: #### C MP, CRP ####[facility] Etqrrppxhr8941 [place] [address]Dr. Shanikaannie Hemphill Sodium [Moles/Vol] 138 mmol/L Normal 136-145 [facility] Comment on above: Performed By: #### C MP, CRP ####[facility] Nrfinjgzha2297 [place] [address]Dr. Lizandro Hemphill Urea nitrogen [Mass/Vol] 10.0 mg/dL Normal 7.0-18.0 [facility] Comment on above: Performed By: #### C MP, CRP ####[facility] Pteklxlrnf8968 [place] [address]Dr. Lizandro Hemphill Urea nitrogen/Creatinin e [Mass ratio] 15.4 mg/mg Normal [facility] Comment on above: Performed By: #### C MP, CRP ####[facility] Wgrqoqgivx[address] [place], [place] [address]Dr. Lizandro Hemphill PROTIMEon 10-19-2021 INR Coag (PPP) [Relative time] 2.03 {INR} Normal [facility] Comment on above: Performed By: #### P T ####[facility] Ayqvasvmqk[address] [place], [place] [address]Dr. Lizandro Hemphill INR GUIDELINES SEE BELOW Normal [facility] Comment on above: Result Comment: GUEVARA RED INR: 2.0 - 3.0 CONDITIONS NOT LISTED BELOW 2.5 - 3.5 FOR PROSTHETIC HEART VALVE REPLACEMENT 2.5 - 3.5 RECURRENT THROMBOSIS Performed By: #### P T ####[facility] Fvjcfefugm[address] [place], [place] [address]Dr. Lizandro Hemphill PT Coag (PPP) [Time] 20.9 s Critically high 9.0-11.6 [facility] Comment on above: Performed By: #### P T ####[facility] Olzkxhqmbt[address] [place], [place] [address]Dr. Lizandro Hemphill AMMONIAon 10-18-2021 Ammonia (P) [Moles/Vol] 21 umol/L Normal 11-32 [facility] Comment on above: Performed By: #### A MM ####[facility] Fcehrfvkpn[address] [place], [place] [address]Dr. Lizandro Hemphill AMYLASEon 10-18-2021 Amylase [Catalytic activity/Vol] 86 U/L Normal 25-115 [facility] Comment on above: Performed By: #### A MY, CMP, LIPA, BNP, CRP ####[facility] Pmtqzmccxu0116 [place] [address]Dr. Lizandro Hemphill BNPon 10-18-2021 Natriuretic peptide B (Bld) [Mass/Vol] 157.0 pg/mL Normal <=900.0 [facility] Comment on above: Performed By: #### A MY, CMP, LIPA, BNP, CRP ####[facility] Ajkafvbwzx2060 [place] [address]Dr. Lizandro Joby CBC AUTO DIFFon 10-18-2021 BASO # 0.1 103/ul Normal 0.0-0.1 [facility] Comment on above: Performed By: #### C BC ####[facility] Eibngqkyqp[address] [place], [place] [address]Dr. Lizandro Hemphill Basophils/100 WBC (Bld) 1.0 % Normal 0.2-2.0 [facility] Comment on above: Performed By: #### C BC ####[facility] Vfqpzpnxyu[address] [place], [place] [address]Dr. Lizandro Hemphill EO # 0.1 103/ul Normal 0.0-0.7 [facility] Comment on above: Performed By: #### C BC ####[facility] Wfpeeprmhg[address] [place], [place] [address]Dr. Lizandro Hemphill Eosinophils/100 WBC (Bld) 1.0 % Normal 0.9-7.0 [facility] Comment on above: Performed By: #### C BC ####[facility] Qgfjqxyqzz9978 [place] [address]Dr. Lizandro Hemphill Erythrocyte distribution width (RBC) [Ratio] 16.8 % Critically high 11.0-15.0 [facility] Comment on above: Performed By: #### C BC ####[facility] Rukrprutla[address] [place], [place] [address]Dr. Lizandro Hemphill Hematocrit (Bld) [Volume fraction] 42.3 % Normal 36.0-48.0 [facility] Comment on above: Performed By: #### C BC ####[facility] Nxamqstlwn3950 [place] [id number]. Lizandro Hemphill Hemoglobin (Bld) [Mass/Vol] 13.4 g/dL Normal 12.0-16.0 [facility] Comment on above: Performed By: #### C BC ####[facility] Gzmiixvija2412 [place] [id number]. Lizandro Hemphill IG # 0.02 10e3/ul Normal 0.00-0.03 [facility] Comment on above: Performed By: #### C BC ####[facility] Ifospbydka0048 [place] [address]Dr. Lizandro Hemphill IG % 0.3 % Normal 0.0-0.5 [facility] Comment on above: Performed By: #### C BC ####[facility] Hulrrvcpxd6653 [place] [address]Dr. Lizandro Hemphill LYMPH # 1.5 103/ul Normal 1.2-3.8 [facility] Comment on above: Performed By: #### C BC ####[facility] Lbrsfdnzvg[address] [place], [place] [address]Dr. Lizandro Hemphill Lymphocytes/100 WBC (Bld) 19.0 % Critically low 20.5-60.0 [facility] Comment on above: Performed By: #### C BC ####[facility] Vjzcyulpvd7928 [place] [address]Dr. Lizandro Hemphill MANUAL DIFF REQ NO Normal [facility] Comment on above: Performed By: #### C BC ####[facility] Svptbxqiax9059 [place] [address]Dr. Lizandro Hemphill MCH (RBC) [Entitic mass] 27.2 pg Normal 26.7-34.0 [facility] Comment on above: Performed By: #### C BC ####[facility] Vachfawkbc[address] [place], [place] [address]Dr. Lizandro Hemphill MCHC (RBC) [Mass/Vol] 31.7 g/dL Normal 29.9-35.2 [facility] Comment on above: Performed By: #### C BC ####[facility] Khubaihaal3563 [place] [phone]. Lizandro Hemphill MCV (RBC) [Entitic vol] 85.8 fL Normal 81.0-99.0 [facility] Comment on above: Performed By: #### C BC ####[facility] Fbvxshbjkx3341 [place] [id number]. Lizandro Hemphill MONO # 0.8 103/ul Normal 0.3-0.8 [facility] Comment on above: Performed By: #### C BC ####[facility] Ydfxddendn2905 [place] [id number]. Lizandro Hemphill Monocytes/100 WBC (Bld) 9.9 % Normal 1.7-12.0 [facility] Comment on above: Performed By: #### C BC ####[facility] Ishrhfvpbx8833 [place] [phone]. Lizandro Hemphill NEUT # 5.4 103/ul Normal 1.4-6.5 [facility] Comment on above: Performed By: #### C BC ####[facility] Jijycnbhoq6164 [place] [id number]. Lizandro Hemphill Neutrophils/100 WBC (Bld) 68.8 % Normal 43.0-75.0 [facility] Comment on above: Performed By: #### C BC ####[facility] Mjfsvmyzhw3367 [place] [phone]. Lizandro Hemphill Platelet mean volume (Bld) [Entitic vol] 10.5 fL Normal 9.5-13.5 [facility] Comment on above: Performed By: #### C BC ####[facility] Vsweedlqwh5093 [place] [phone]. Lizandro Hemphill PLT 254 103/ul Normal 150-450 [facility] Comment on above: Performed By: #### C BC ####[facility] Yeiahepnnw3966 [place] [phone]. Lizandro Hemphill RBC 4.93 106/ul Normal 4.20-5.40 [facility] Comment on above: Performed By: #### C BC ####[facility] Ptbrbeldnp[address] [place], [place] [address]Dr. Lizandro Hemphill WBC 7.8 103/ul Normal 4.0-11.0 [facility] Comment on above: Performed By: #### C BC ####[facility] Vdnwpqpkyc9906 [place] [address]Dr. Lizandro Hemphill CRPon 10-18-2021 CRP [Mass/Vol] mg/L Normal <=1.0 [facility] Comment on above: Performed By: #### A MY, CMP, LIPA, BNP, CRP ####[facility] Fyhbimecxj3489 [place] [phone]. Lizandro Hemphill CT ABD/PELVIS WO CONon 10-18 CT ABD/PELVIS WO CON Normal [facility] CULTURE BLOODon 10-18-2021 Microscopic examination of blood, culture Culture Observations: NO GROWTH AT 5 DAYS. Normal [facility] Comment on above: Performed By: #### B LDCX2 ####[facility] Azaztobidr1781 [place] [address]Dr. Lizandro Hemphill Microscopic examination of blood, culture Culture Observations: NO GROWTH AT 5 DAYS. Normal The [facility] Comment on above: Performed By: #### B LDCX1 ####[facility] Yqffgitwcc2617 [place] [address]Dr. Lizandro Hemphill Covid-19 PCR (CVDTB)on 09-24 SARS-CoV-2 (COVID-19) RNA VERITO+probe Ql (Unsp spec) Not detected Normal NOT DETECTED The [facility] Comment on above: Result Comment: When diagnostic testing is negative, the possibility of a false negative should be considered inthe context of a patient's recent exposures and the presence of clinical signs and symptomsconsistent with SARS-CoV-2.This test is not yet approved or cleared by the [place] FDA. When there are no FDA-approved or cleared tests available, and other criteria are met, FDA can make tests available under an emergency access mechanism called an Emergency Use Authorization (EUA). The EUA for this test is supported by the Street Vendor of Health and Human Service's declaration that circumstances exist to justify the emergency use of in vitro diagnostics for the detection and/or diagnosis of the virus that causes COVID-19. This EUA will remain in effect for the duration of the COVID-19 declaration justifying emergency of IVDs, unless it is terminated or revoked by the FDA (after which the test may no longer be used). Performed By: #### C VDTBH ####[facility] Hpmkdzxlgn[address] [place], [place] [address]Dr. Lizandro Hemphill GI PANEL (PCR)on 10-18-2021 Adenovirus F 40/41 Not detected Normal NOT DETECTED [facility] Comment on above: Performed By: #### G IPANEL ####[facility] Qcjkbtflep[address] [place], [place] [address]Dr. Lizandro Hemphill Astrovirus Not detected Normal NOT DETECTED [facility] Comment on above: Performed By: #### G IPANEL ####[facility] Tnrmcxmmlj[address] [place], [place] [address]Dr. Lizandro Hemphill C. Diff toxin A/B Not detected Normal NOT DETECTED [facility] Comment on above: Performed By: #### G IPANEL ####[facility] Ifwuojaadq68[address] [place], [place] [address]Dr. Lizandro Hemphill Campylobacter Not detected Normal NOT DETECTED [facility] Comment on above: Performed By: #### G IPANEL ####[facility] Qlnuihrhiu5664[address] [place], [place] [address]Dr. Lizandro Hemphill Cryptosporidium Not detected Normal NOT DETECTED [facility] Comment on above: Performed By: #### G IPANEL ####[facility] Qrkwarwlvk059[address] [place], [place] [address]Dr. Lizandro Hemphill Cyclos. Cayetanensis Not detected Normal NOT DETECTED The [facility] Comment on above: Performed By: #### G IPANEL ####[facility] Ejjciagloe2007[address] [place], [place] [address]Dr. Lizandro Hemphill E. Coli O157 Not Applicable Normal Not Applicable [facility] Comment on above: Performed By: #### G IPANEL ####[facility] Ajuczmjszb7458[address] [place], [place] [address]Dr. Lizandro Hemphill E. histolytica Not detected Normal NOT DETECTED [facility] Comment on above: Performed By: #### G IPANEL ####[facility] Zrlexyvnpm4567 [place] [address]Dr. Lizandro Hemphill EAEC Not detected Normal NOT DETECTED [facility] Comment on above: Performed By: #### G IPANEL ####[facility] Ivskitlxib6433 [place] [address]Dr. Lizandro Hemphill EIEC Not detected Normal NOT DETECTED [facility] Comment on above: Performed By: #### G IPANEL ####[facility] Rnedugddxi9[address] [place], [place] [address]Dr. Lizandro Hemphill EPEC Not detected Normal NOT DETECTED [facility] Comment on above: Performed By: #### G IPANEL ####[facility] Jaxopliahx716[address] [place], [place] [address]Dr. Lizandro Hemphill ETEC Not detected Normal NOT DETECTED [facility] Comment on above: Performed By: #### G IPANEL ####[facility] Jqvpsokkfh7[address] [place], [place] [address]Dr. Shanikaannie Joby G. Lamblia Not detected Normal NOT DETECTED [facility] Comment on above: Performed By: #### G IPANEL ####[facility] Oulpwuetoy[address] [place], [place] [address]Dr. Lizandro Hemphill GIPANEL CONTROLS PASSED Normal The [facility] Comment on above: Performed By: #### G IPANEL ####[facility] Wxfdvvrzqs4406[address] [place], [place] [address]Dr. Lizandro LEHMANNL CARIE HEADER GI PANEL BACTERIA Normal [facility] Comment on above: Performed By: #### G IPANEL ####[facility] Wmomjmdojp7764 [place] [address]Dr. Lizandro LEHMANNLHD ECOLI GI PANEL DIARRHEAGEN IC E.COLI / SHIGELLA Normal [facility] Comment on above: Performed By: #### G IPANEL ####[facility] Kkspxzoxhh287[address] [place], [place] [address]Dr. Lizandro LEHMANNLHD INFO SEE BELOW Normal [facility] Comment on above: Result Comment: EAEC - Enteroaggregative E. Coli EPEC- Enteropathogenic E. Coli ETEC- Enterotoxigenic E. Coli lt/st STEC- Shigella-like toxin-producing E. Coli stx1/stx2 EIEC- Shigella/Enteroinvasive E. Coli Performed By: #### G IPANEL ####[facility] Anttdcvjkj[address] [place], [place] [address]Dr. Shanikaannie Hemphill GIPNLHD PARASITES GI PANEL PARASITES Normal [facility] Comment on above: Performed By: #### G IPANEL ####[facility] Ttalzfytxq374[address] [place], [place] [address]Dr. Shanikaannie Hemphill GIPNLHD VIRUS GI PANEL VIRUSES Normal [facility] [place] Comment on above: Performed By: #### G IPANEL ####[facility] Patrnumqdk[address] [place], [place] [address]Dr. Shanikaannie Hemphill Norovirus GI/GII Not detected Normal NOT DETECTED [facility] Comment on above: Performed By: #### G IPANEL ####[facility] Tailumhcnv3[address] [place], [place] [address]Dr. Lizandro Hemphill P. Shigelloides Not detected Normal NOT DETECTED [facility] [place] Comment on above: Performed By: #### G IPANEL ####[facility] Aecwdvfasm01[address] [place], [place] [address]Dr. Lizandro Hemphill Rotavirus A Not detected Normal NOT DETECTED [facility] Comment on above: Performed By: #### G IPANEL ####[facility] Wtpuxspdgx69[address] [place], [place] [address]Dr. Lizandro Hemphill Salmonella Not detected Normal NOT DETECTED [facility] Comment on above: Performed By: #### G IPANEL ####[facility] Krsykqitqi[address] [place], [place] [address]Dr. Lizandro Hemphill Sapovirus Not detected Normal NOT DETECTED [facility] Comment on above: Performed By: #### G IPANEL ####[facility] Gnsxunolvh[address] [place], [place] [address]Dr. Lizandro Hemphill STEC Not detected Normal NOT DETECTED [facility] Comment on above: Performed By: #### G IPANEL ####[facility] Sodpfqqtua[address] [place], [place] [address]Dr. Lizandro Hemphill Vibrio Not detected Normal NOT DETECTED [facility] Comment on above: Performed By: #### G IPANEL ####[facility] Ohwxzaroaj06[address] [place], [place] [address]Dr. Lizandro Hemphill Vibrio Cholera Not detected Normal NOT DETECTED [facility] Comment on above: Performed By: #### G IPANEL ####[facility] Hsuxrlsykh[address] [place], [place] [address]Dr. Lizandro Hemphill Y. Enterocolitica Not detected Normal NOT DETECTED The [facility] Comment on above: Performed By: #### G IPANEL ####[facility] Vnjkftax[address] [place], [place] [address]Dr. Lizandro Hemphill LACTATE/LACTIC ACIDon 2021 Lactate [Moles/Vol] 1.1 mmol/L Normal 0.4-1.9 The [facility] Comment on above: Performed By: #### L ACT ####[facility] Mghbuwnfxd[address] [place], [place] [address]Dr. Lizandro Hemphill LIPASEon 10-18-2021 Lipase [Catalytic activity/Vol] 151.0 U/L Normal 73.0-393.0 The [facility] Comment on above: Performed By: #### A MY, CMP, LIPA, BNP, CRP ####[facility] Tozcavzgtb[address] [place], [place] [address]Dr. Lizandro Hemphill PROF 14(COMP METB)on 022 Albumin [Mass/Vol] 3.7 g/dL Normal 3.4-5.0 [facility] Comment on above: Performed By: #### A MY, CMP, LIPA, BNP, CRP ####[facility] Tbuxtdhveh[address] [place], [place] [address]Dr. Lizandro Hemphill Albumin/Globulin [Mass ratio] 0.9 {ratio} Normal The [facility] Comment on above: Performed By: #### A MY, CMP, LIPA, BNP, CRP ####[facility] Fkulhuinwy[address] [place], [place] [address]Dr. Lizandro Hemphill ALP [Catalytic activity/Vol] 114 U/L Normal 46-116 [facility] Comment on above: Performed By: #### A MY, CMP, LIPA, BNP, CRP ####[facility] [address] [place] [address]Dr. Lizandro Hemphill ALT [Catalytic activity/Vol] 26 U/L Normal 14-59 [facility] Comment on above: Performed By: #### A MY, CMP, LIPA, BNP, CRP ####[facility] [address] [place] [address]Dr. Lizandro Hemphill Anion gap [Moles/Vol] 13.7 mmol/L Normal [facility] Comment on above: Performed By: #### A MY, CMP, LIPA, BNP, CRP ####[facility] Awaasiurna[address] [place], [place] [address]Dr. Lizandro Hemphill AST [Catalytic activity/Vol] 30 U/L Normal 15-37 The [facility] Comment on above: Performed By: #### A MY, CMP, LIPA, BNP, CRP ####[facility] Sexhawpdqj[address] [place], [place] [address]Dr. Lizandro Hemphill Bilirubin [Mass/Vol] 0.3 mg/dL Normal 0.2-1.0 [facility] Comment on above: Performed By: #### A MY, CMP, LIPA, BNP, CRP ####[facility] [address] [place] [address]Dr. Lizandro Hemphill Calcium [Mass/Vol] 9.1 mg/dL Normal 8.5-10.1 [facility] Comment on above: Performed By: #### A MY, CMP, LIPA, BNP, CRP ####[facility] [address]stl[address] [place] [address]Dr. Lizandro Hemphill Chloride [Moles/Vol] 102 mmol/L Normal 98-107 The [facility] Comment on above: Performed By: #### A MY, CMP, LIPA, BNP, CRP ####[facility] R[address]vkemahl[address] [place] [address]Dr. Lizandro Hemphill CO2 [Moles/Vol] 26.9 mmol/L Normal 21.0-32.0 The [facility] Comment on above: Performed By: #### A MY, CMP, LIPA, BNP, CRP ####[facility] [address] [place] [address]Dr. Lizandro Hemphill Creatinine [Mass/Vol] 0.79 mg/dL Normal 0.55-1.02 The [facility] Comment on above: Performed By: #### A MY, CMP, LIPA, BNP, CRP ####[facility] Exuwrrpyty[address] [place], [place] [address]Dr. Lizandro Hemphill EGFR-AF CHADIAN >60 Normal >=60 The [facility] Comment on above: Performed By: #### A MY, CMP, LIPA, BNP, CRP ####[facility] Hutqwlqvkj[address] [place], [place] [address]Dr. Lizandro Hemphill EGFR-NON AF CHADIAN >60 Normal >=60 The [facility] Comment on above: Performed By: #### A MY, CMP, LIPA, BNP, CRP ####[facility] Grzogkrlha[address] [place], [place] [address]Dr. Lizandro Hemphill Globulin (S) [Mass/Vol] 4.0 g/dL Normal The [facility] Comment on above: Performed By: #### A MY, CMP, LIPA, BNP, CRP ####[facility] Ttahuzuhqj[address] [place], [place] [address]Dr. Shanikaannie Hemphill Glucose [Mass/Vol] 96 mg/dL Normal 74-106 [facility] Comment on above: Performed By: #### A MY, CMP, LIPA, BNP, CRP ####[facility] [address]xwhd[address] [place] [address]Dr. Lizandro Hemphill Potassium [Moles/Vol] 3.6 mmol/L Normal 3.5-5.1 The [facility] Comment on above: Performed By: #### A MY, CMP, LIPA, BNP, CRP ####[facility] [address]dedk[address] [place] [address]Dr. Shanikaannie Hemphill Protein [Mass/Vol] 7.7 g/dL Normal 6.4-8.2 [facility] Comment on above: Performed By: #### A MY, CMP, LIPA, BNP, CRP ####[facility] Er[address]kblo[address] [place] [address]Dr. Lizandro Hemphill Sodium [Moles/Vol] 139 mmol/L Normal 136-145 [facility] Comment on above: Performed By: #### A MY, CMP, LIPA, BNP, CRP ####[facility] S[address]jty[address] [place] [address]Dr. Lizandro Hmephill Urea nitrogen [Mass/Vol] 15.0 mg/dL Normal 7.0-18.0 [facility] Comment on above: Performed By: #### A MY, CMP, LIPA, BNP, CRP ####[facility] [address]jcewl[address] [place] [address]Dr. Lizandro Hemphill Urea nitrogen/Creatinin e [Mass ratio] 19.0 mg/mg Normal [facility] Comment on above: Performed By: #### A MY, CMP, LIPA, BNP, CRP ####[facility] Spemevezze[address] [place], [place] [address]Dr. Lizandro Hemphill PROTIMEon 10-18-2021 INR Coag (PPP) [Relative time] 1.66 {INR} Normal [facility] Comment on above: Performed By: #### P T, PTT ####[facility] Hajfnyvzxd[address] [place], [place] [address]Dr. Lizandro Hemphill INR GUIDELINES SEE BELOW Normal [facility] Comment on above: Result Comment: GUEVARA RED INR: 2.0 - 3.0 CONDITIONS NOT LISTED BELOW 2.5 - 3.5 FOR PROSTHETIC HEART VALVE REPLACEMENT 2.5 - 3.5 RECURRENT THROMBOSIS Performed By: #### P T, PTT ####[facility] Nwomxgnvvz[address] [place], [place] [address]Dr. Lizandro Hemphill PT Coag (PPP) [Time] 17.3 s Critically high 9.0-11.6 [facility] Comment on above: Performed By: #### P T, PTT ####[facility] Cmxiolsgeb25[address] [place], [place] [address]Dr. Lizandro Hemphill PTTon 10-18-2021 aPTT Coag (Bld) [Time] 38.3 s Critically high 22.3-36.2 The [facility] Comment on above: Performed By: #### P T, PTT ####[facility] Flkvoaotaz[address] [place], [place] [address]Dr. Lizandro Hemphill UA RANDOM W/MICROSCOPICon BACTERIA TRACE Abnormal NONE SEEN The [facility] Comment on above: Performed By: #### U AMIC ####[facility] Fksqvzhlyx85[address] [place], [place] [address]Dr. Lizandro Hemphill Bilirubin Ql (U) Negative Normal NEGATIVE The [facility] Comment on above: Performed By: #### U AMIC ####[facility] Yytejvibjn[address] [place], [place] [address]Dr. Lizandro Hemphill CAST NONE SEEN Normal NONE SEEN The [facility] Comment on above: Performed By: #### U AMIC ####[facility] Agbqdzpwpb8[address] [place], [place] [address]Dr. Lizandro Hemphill Clarity (U) CLEAR Normal CLEAR The [facility] Comment on above: Performed By: #### U AMIC ####[facility] Otrmrxjqxl1787[address] [place], [place] [address]Dr. Lizandro Hemphill Color (U) LT. YELLOW Normal YELLOW The [facility] Comment on above: Performed By: #### U AMIC ####[facility] Gwrkzcjpjp[address] [place], [place] [address]Dr. Lizandro Hemphill Crystals LM Nom (Urine sed) NONE SEEN Normal NONE SEEN The [facility] Comment on above: Performed By: #### U AMIC ####[facility] Dtdyghdlqz[address] [place], [place] [address]Dr. Lizandro Hemphill Epithelial cells LM Ql (Urine sed) RARE Normal NONE SEEN /RARE The [facility] Comment on above: Performed By: #### U AMIC ####[facility] Icptnuglgd[address] [place], [place] [address]Dr. Lizandro Hemphill Glucose Ql (U) Negative Normal NEGATIVE [facility] Comment on above: Performed By: #### U AMIC ####[facility] Dqrmrcszto[address] [place], [place] [address]Dr. Lizandro Hemphill Hemoglobin Ql (U) Negative Normal NEGATIVE [facility] Comment on above: Performed By: #### U AMIC ####[facility] [address]vyhcdt[address] [place] [address]Dr. Lizandro Hemphill Ketones Ql (U) Negative Normal NEGATIVE [facility] Comment on above: Performed By: #### U AMIC ####[facility] Ozucinxahj[address] [place], [place] [address]Dr. Lizandro Joby LEUKOCYTES Negative Normal NEGATIVE The [facility] Comment on above: Performed By: #### U AMIC ####[facility] Qkpkzbdrfe[address] [place] [address]Dr. Lizandro Hemphill MUCOUS NONE SEEN Normal NONE SEEN The [facility] Comment on above: Performed By: #### U AMIC ####[facility] Isurdxlsyk6399[address] [place], [place] [address]Dr. Lizandro Hemphill Nitrite Ql (U) Negative Normal NEGATIVE [facility] Comment on above: Performed By: #### U AMIC ####[facility] Mwxqjhphdd13[address] [place], [place] [address]Dr. Lizandro Hemphill pH (U) 6.5 [pH] Normal 5-9 The [facility] Comment on above: Performed By: #### U AMIC ####[facility] K[address]ewpjlxp[address] [place], [place] [address]Dr. Lizandro Hemphill RBC NONE SEEN Abnormal 0-2 The [facility] Comment on above: Performed By: #### U AMIC ####[facility] Odenexsfav[address] [place], [place] [address]Dr. Lizandro Hemphill SPEC GRAVITY <=1.005 Abnormal 1.005-<=1.025 [facility] Comment on above: Performed By: #### U AMIC ####[facility] Yhhflyqrhu[address] [place], [place] [address]Dr. Lizandro Hemphill UA PROTEIN Negative Normal NEGATIVE/ TRACE The [facility] Comment on above: Performed By: #### U AMIC ####[facility] Gxogscaosn[address] [place], [place] [address]Dr. Lizandro Hemphill Urobilinogen Qn (U) 0.2 {Cassy'U}/dL Normal 0.2 - 1.0 The [facility] Comment on above: Performed By: #### U AMIC ####[facility] [address] [place], [place] [address]DbCiro Hemphill WBC 0-2 Abnormal NONE SEEN The [facility] Comment on above: Performed By: #### U AMIC ####[facility] [address] [place], [place] [address]Qp. Lizandro Hemphill Ambulatory Visit Summaryon 0 09-27-2021 Ambulatory Visit Summary FEROZ POWER :1960 Visit Date:09/27/2021 Ambulatory Visit Instructions Your Care Team Attending Physician - KARYN COE, Isael Lr Primary Care Physician - Braeden COE, Ezekiel This Is Your Medications List albuterol (albuterol 0.083% Inh Elvira 3 mL) celecoxib (CeleBREX 200 mg Cap) cyproheptadine (cyproheptadine 4 mg Tab) dicyclomine (dicyclomine 20 mg Tab) ferrous sulfate (ferrous sulfate 325 mg oral enteric coated tablet) gabapentin (gabapentin 100 mg Cap) hydrOXYzine (hydrOXYzine pamoate 25 mg Cap) melatonin (Melatonin 10 mg oral capsule) ondansetron (ondansetron 4 mg Dis Tab) pancrelipase (Creon 24,000 units oral delayed release capsule) polyethylene glycol 3350 (MiraLax) potassium chloride (potassium chloride 20 mEq ER Tab) sucralfate (sucralfate 1 g Tab) temazepam (temazepam 30 mg Cap) tizanidine (tiZANidine 4 mg Tab) trazodone (traZODONE 50 mg Tab) warfarin (warfarin 5 mg Tab) Procedures Performed Appendectomy, Cervical spinal fusion, Cholecystectomy, History of knee surgery, Ligament of ankle joint, SUGAR BSO - Total abdominal hysterectomy and bilateral salpingo-oophorectomy. Discharge Vitals Heart Rate (Peripheral) 68 Respiratory Rate 16 Blood Pressure 116/76 Height 157.5 cm Height 157.48 cm Weight 53.7 kg Weight 53.7 kg BMI 21.65 Medications What How Much When Instructions Unchanged albuterol (albuterol 0.083% Inh Elvira 3 mL) 3 Milliliter Nebulized inhalation (aerosol) 4 times a day Unchanged celecoxib (CeleBREX 200 mg Cap) 1 Capsules By Mouth 2 times a day Unchanged cyproheptadine (cyproheptadine 4 mg Tab) 1 Tablets By Mouth At bedtime Unchanged dicyclomine (dicyclomine 20 mg Tab) 1 Tablets By Mouth 3 times a day Unchanged ferrous sulfate (ferrous sulfate 325 mg oral enteric coated tablet) 1 Tablets By Mouth 3 times a day Unchanged gabapentin (gabapentin 100 mg Cap) 5 Capsules By Mouth 3 times a day Unchanged hydrOXYzine (hydrOXYzine pamoate 25 mg Cap) 1 Capsules By Mouth 4 times a day Unchanged melatonin (Melatonin 10 mg oral capsule) 1 Capsules By Mouth Once a day (at bedtime) Unchanged ondansetron (ondansetron 4 mg Dis Tab) 1 Tablets By Mouth 4 times a day Unchanged pancrelipase (Creon 24,000 units oral delayed release capsule) 1 Capsules By Mouth 3 times a day Unchanged polyethylene glycol 3350 (MiraLax) 17 Gram By Mouth Every day Unchanged potassium chloride (potassium chloride 20 mEq ER Tab) 1 Tablets By Mouth 3 times a day Unchanged sucralfate (sucralfate 1 g Tab) 1 Tablets By Mouth Four times a day (before meals and at bedtime) Unchanged temazepam (temazepam 30 mg Cap) 1 Capsules By Mouth Once a day (at bedtime) as needed for for sleep Unchanged tizanidine (tiZANidine 4 mg Tab) 2 Tablets By Mouth At bedtime Unchanged trazodone (traZODONE 50 mg Tab) 1 Tablets By Mouth Once a day (at bedtime) Unchanged warfarin (warfarin 5 mg Tab) as directed Allergies Compazine (Hives) baclofen (Anaphylaxis) cefdinir (Hives) contrast media (iodine-based) (Anaphylaxis) morphine (Anaphylaxis) Problems Ongoing - Any problem that you are currently receiving treatment for. Anticoagulated Atherosclerotic heart disease BMI 21.0-21.9, adult Cervical radiculopathy Cervical spondylosis with myelopathy Chronic obstructive pulmonary disease GERD (gastroesophageal reflux disease) History of Clostridium difficile infection History of DVT (deep vein thrombosis) History of nephrolithiasis History of pancreatitis History of viral hepatitis IBS (irritable bowel syndrome) Insomnia Iron deficiency anemia Lumbar radiculopathy Migraines Orthostatic hypotension GUILLERMO (obstructive sleep apnea) Osteoporosis Peripheral vascular disease Protein S deficiency Seizure disorder Sinus tachycardia Varicose veins of legs Normal [facility] PROTIMEon 09-20-2021 INR Coag (PPP) [Relative time] {INR} Normal The [facility] Comment on above: Performed By: #### P T ####[facility] [address] [place] [id number] Lizandro Hemphill INR GUIDELINES SEE BELOW Normal [facility] Comment on above: Result Comment: GUEVARA RED INR: 2.0 - 3.0 CONDITIONS NOT LISTED BELOW 2.5 - 3.5 FOR PROSTHETIC HEART VALVE REPLACEMENT 2.5 - 3.5 RECURRENT THROMBOSIS Performed By: #### P T ####[facility] [address] [place] [address]DrCiro Hemphill PT Coag (PPP) [Time] 9.7 s Normal 9.0-11.6 The [facility] Comment on above: Performed By: #### P T ####[facility] [address] [place] [address]DrCiro Hemphill Covid-19 PCR (CVDTB)on 08-25 SARS-CoV-2 (COVID-19) RNA VERITO+probe Ql (Unsp spec) Not detected Normal NOT DETECTED The [facility] Comment on above: Result Comment: When diagnostic testing is negative, the possibility of a false negative should be considered inthe context of a patient's recent exposures and the presence of clinical signs and symptomsconsistent with SARS-CoV-2.This test is not yet approved or cleared by the [place] FDA. When there are no FDA-approved or cleared tests available, and other criteria are met, FDA can make tests available under an emergency access mechanism called an Emergency Use Authorization (EUA). The EUA for this test is supported by the [place] of Health and Human Service's declaration that circumstances exist to justify the emergency use of in vitro diagnostics for the detection and/or diagnosis of the virus that causes COVID-19. This EUA will remain in effect for the duration of the COVID-19 declaration justifying emergency of IVDs, unless it is terminated or revoked by the FDA (after which the test may no longer be used). Performed By: #### C VDTBH ####[facility] [address] [place], [place] [address]Ca. Liznadro Hemphill Physician Referralon 022 Physician Referral [phone] [id number] Normal [facility] GI Letteron 12-31-2017 GI Letter [facility] Academic [facility] Academic Fax:Division of [phone] gy Clinic Phone:[facility] [phone] [facility] Fax:[place] [phone] [place], [place] [address]OW: Patient Name: Feroz Power MR #: [id number] Date of : 1960 Date of Service:12/28/2017Tatiana Murphy Jr, D.O.[id number] Dr. Murphy:I had the pleasure of seeing your patient, Feroz Power in our endoscopyunit for history of recurrent pancreatitis and history of epigastricabdominal pain.PROCEDURE PERFORMEDEndoscopic ultrasound with biopsy.INDICATIONSDilated common bile duct with history of pancreatitis, rule out common bileduct stone, rule out malignancy.MEDICATIONSGene ral anesthesia administered by Anesthesia team.PROCEDURE PERFORMEDEndoscopic ultrasound with biopsy.PROCEDURE IN DETAILAfter obtaining the informed consent, which include the risks, benefits,alternatives, and complications, complications include bleeding,perforation, and reaction to medications, the patient was placed in theleft lateral decubitus position. After receiving general anesthesiaadministered by Anesthesia team after which the Olympus video GIF-180gastroscope was introduced through the mouth down to the esophagus,stomach, then to the 1st and 2nd part of the duodenum with no difficulties.The examination of the esophagus looked unremarkable as well as theexamination of the stomach. The examination of the duodenum lookedunremarkable. Biopsies were obtained to rule out the celiac disease. Otherbiopsies were obtained from the stomach to rule out H. pylori infection.The gastroscope was then withdrawn and the Olympus video radialechoendoscope was introduced through the mouth down to the esophagus,stomach, then to the 1st and 2nd part of the duodenum with no difficulties.The endosonographic examination of the abdominal aorta and the celiac axiswas unremarkable. No celiac lymphadenopathy was noted.The examination of the pancreatic parenchyma at the body and the tail ofthe pancreas was unremarkable. No pancreatic masses were identified. Thepancreatic duct measured 2.7 mm and 1.6 mm at the body and the tail of thepancreas respectively. The examination of the head of the pancreas wasunremarkable and the pancreatic duct measured 3.1 mm in size. A significantamount of bile was noted retained within the stomach and duodenum. Thecommon bile duct was examined and was noted to be dilated, measured to 9.6mm in size. No choledocholithiasis was noted. The major papilla lookedsmall, but unremarkable.IMPRESSION 1. A significant amount of bile noted within the stomach, likely causing bile reflux gastropathy. Biopsies were obtained to rule out H. pylori infection and to rule out chemical gastropathy. 2. Unremarkable examination of the duodenum. Biopsies were obtained to rule out celiac disease. 3. Unremarkable examination of the pancreas. 4. A dilated common bile duct with no choledocholithiasis noted. No pancreatic head mass was identified.The patient's symptoms could be related to bile reflux gastropathy due tolarge amount of bile noted retained within the stomach, which has likelyoccurred after performing a cholecystectomy. The patient had no recurrentepisodes of pancreatitis since she had cholecystectomy.PLAN 1. Continue Reglan 10 mg before meals and at bedtime. 2. Take Carafate three times a day between meals. 3. Follow biopsy results. 4. If the patient develops any new episodes of pancreatitis, consider ERCP with biliary sphincterotomy. The ERCP with biliary sphincterotomy was not done at this time due to the presence of large amount of bile noted within the stomach, which could be worsened by sphincterotomy.Thank you very much, Dr. Murphy for allowing me to participate in the careof this very pleasant patient.Sincerely,Electron ically Signed by:Christopher Valencia M.D. 01/11/2018 04:41 P Christopher Valencia M.D.Date Dict: 12/29/2017/02:03 P/Christopher Valencia M.D.Date Trans: 12/30/2017 04:04 A/mmoRevised: 12/31/2017 07:52 A/paCcyril/rachelDN_[id number]: Ezekiel Deras M.D. [address] [facility] [place] [address] Tatiana Murphy Jr, D.O. [address] [address] [facility] Operative Reporton 8 Operative Report MR#: [id number] [facility] Pt. Name: Feroz Power Room #: 0C Discharge Date: Birthdate: 1960 OPERATIVE REPORTDATE OF SURGERY: 09/17/2017SURGEON: Jermaine Hernández M.D.FOUNDRY TENDER: Sussy Prince M.D.PREOPERATIVE DIAGNOSIS: Left wrist extensor carpi ulnaris (ECU)instability.POSTOPERA TIVE DIAGNOSIS: Left wrist extensor carpi ulnaris (ECU)instability.OPERATIVE PROCEDURE:1. Left wrist arthrotomy.2. Left ECU stabilization.OPERATIVE PROCEDURE IN DETAIL: Under regional anesthetic, the patient'sleft upper extremity was prepped and draped for the proposed procedure.Tourniquet applied to left proximal humerus was inflated 250 mmHg followingexsanguination of the limb by application of an Esmarch bandage. Acurvilinear incision was made along the ulnar aspect of the left wrist.Dissection performed under 3.5 times loupe magnification. The dorsal ulnarsensory nerve was identified and preserved throughout the operativeprocedure.At this time, intraoperative findings revealed that there was no grosssubluxation of the extensor carpi ulnaris tendon. However, was that therewas essentially no ulnar sulcus or groove for the tendon. The tendonitself also once it was visualized did not appear to have any inflammationor tearing within the subsheath. Evaluation of the joint revealed that theTFCC was preserved.At this time, a radial based retinacular flap was created. Once this hadbeen elevated, the subsheath of the ECU was incised allowing the ECU to beretracted. Arthrotomy performed whereby the TFCC was visualized and notedto be intact. As documented above, there was no significant groove orosseous ridge. Once the periosteum was incised, the residual ridge wasdebrided with a rongeur and then co-planed with a rasp.Wound irrigated with normal saline solution and the overlying periosteumrepaired with a 3-0 Vicryl thus serving as a base for the tendon. Theretinaculum was then placed deep to the ECU and secured to the sheath ofthe EDM, repaired with a 3-0 and 2-0 Vicryl. The wrist was placed througha gentle range of motion noting that there was no restriction with regardto its gliding and noted as well was that the tendon was well stabilized.Wound irrigated with normal saline solution. The arthrotomy closed with3-0 Vicryl. Overlying subcutaneous tissues repaired with 3-0 Vicrylfollowed by closure of the skin with a 4-0 Novafil established in amattress fashion.A sterile bulky hand dressing was applied and the wrist was protected withapplication of a sugar-tong splint. There were no complications. Thepatient was sent to recovery room in stable condition.Electronically Signed by:Jermaine Hernández M.D. 09/18/2017 09:03 A Jermaine Hernández M.D.Date Dict: 09/17/2017/10:36 Ruiz/Jermaine Hernández M.D.Date Trans: 09/17/2017 01:02 P/Devante_JN:[id number] c: Ezeikel Deras M.D. [facility] [address] [facility] [place] [address] Normal [facility] POC GLUCOSE LABon 09-17-2017 Glucose mass conc 74 mg/dL Normal 70-100 [facility] Comment on above: Performed By: #### [id number] ####[facility], [place] [id number] [place] [address] Vital Signs Date Time Vital Sign Value Performing Clinician Ghazal cardona 09-27-2021 15:12-0400 Blood Pressure Location [employer] [place] 09-27-2021 15:12-0400 Diastolic blood pressure 76 mm[Hg] Isael NILL [facility] [place] 09-27-2021 15:12-0400 Heart rate 68 /min Isael NILL [facility] [place] 09-27-2021 15:12-0400 Respiratory rate 16 /min Isael NILL [facility] [place] 09-27-2021 15:12-0400 Systolic blood pressure 116 mm[Hg] Isael NILL [facility] Encounters Encounter Date Encounter Type Care Provider Facility Start: 09-29-2022 End: 09-30-2022 ambulatory [facility] Start: 08-09-2022 End: 08-10-[address] EZEKIEL DERAS . Facility: Start: 07-30-2022 End: 07-31-2022 Evaluation and management of inpatient DR EZEKIEL DERAS . Facility:[facility]1 Start: 07-24-2022 End: 08-23-2022 ambulatory SHAIKH Alistair SINGH Facility:[facility]1 Start: 07-13-2022 ambulatory NARFREDRICK BRUNOMIPATHY . Facility:[facility]1 Start: 06-27-2022 End: 06-28-2022 Evaluation and management of inpatient DR EZEKIEL DERAS . Facility:[facility] Start: 06-27-2022 ambulatory NARFREDRICK BRUONMIPATHY . Facility:H1 Start: 06-26-2022 End: 07-21-2022 ambulatory SHAIKH Alistair SINGH Facility:[facility]1 Start: 06-13-2022 End: 06-14-2022 ambulatory NARENDRANATH LAKSHMIPATHY . Facility:[facility]1 Start: 05-29-2022 End: 05-31-2022 Evaluation and management of inpatient DR EZEKIEL DERAS . Facility:[facility]1 Start: 05-24-2022 End: 06-23-2022 ambulatory SHAIKH Alistair SINGH Facility:[facility]1 Start: 05-22-2022 End: 05-23-[address] DAJA GÓMEZ . Facility:[facility]1 Start: 05-03-2022 End: 05-06-[address] EZEKIEL DERAS . Facility:[facility] Start: 04-27-2022 ambulatory REBECCA NUNES . Facility:H 1 Start: 04-26-2022 End: 05-24-2022 ambulatory SHAIKH Alistair SINGH Facility:H1 Start: 04-13-2022 End: 04-13-2022 ambulatory MARLON ARREOLA Facility:[facility]1 Start: 03-27-2022 End: 04-26-2022 ambulatory SHAIKH Alistair SINGH Facility:[facility]1 Start: 03-09-2022 ambulatory REBECCA NUNES . Facility:H 1 Start: 03-03-2022 End: 03-07-[address] EZEKIEL DERAS . Facility:[facility]1 Start: 03-01-2022 End: 03-01-2022 ambulatory KOBE MCCORMACK . Facility:[facility]1 Start: 02-23-2022 End: 03-26-2022 ambulatory SHAIKH Alistair SINGH Facility:H1 Start: 02-21-2022 End: 02-21-[address] BRUCE HILL Facility:[facility]1 Start: 02-20-2022 End: 02-20-[address] SARAH LAGUNAS Facility:[facility]1 Start: 02-01-2022 End: 02-02-[address] EZEKIEL DERAS . Facility:[facility]1 Start: 01-25-2022 End: 01-27-2022 Evaluation and management of inpatient DR EZEKIEL DERAS . Facility:[facility]1 Start: 01-24-2022 End: 02-22-2022 ambulatory SHAIKH Alistair SINGH Facility:[facility]1 Start: 01-18-2022 Encounter for preprocedural laboratory examination DR FELIX MALCOLM . [facility] Start: 01-17-2022 End: 01-17-[address] FELIX MALCOLM . Facility:H1 Start: 01-13-2022 End: 01-14-[address] FELIX MALCOLM . Facility:[facility]1 Start: 01-13-2022 End: 01-14-2022 Encounter for preprocedural laboratory examination DR FELIX MALCOLM . Facility:[facility]1 Start: 01-05-2022 End: 01-06-[address] FELIX MALCOLM . Facility:[facility]1 Start: 12-25-2021 End: 01-23-2022 ambulatory SHAIKH Alistair SINGH Facility:H1 Start: 12-06-2021 End: 12-06-[address] FELIX MALCOLM . Facility:[facility]1 Start: 12-02-2021 End: 12-03-[address] FELIX MALCOLM . Facility:[facility]1 Start: 11-24-2021 End: 12-24-2021 ambulatory SHAIKH Alistair SINGH Facility:[facility]1 Start: 11-19-[address] EZEKIEL DERAS . Facili ty:H1 Start: 11-17-2021 End: 11-18-2021 ambulatory REBECCA NUNES . Facility:[facility]1 Start: 10-31-2021 End: 10-31-2021 ambulatory JENIFER SAPP Facility:H1 Start: 10-30-2021 End: 10-30-[address] RENATO DOMINGUEZ . Facility:[facility]1 Start: 10-26-2021 Encounter for preprocedural laboratory examination DR EZEKIEL DERAS . [facility] Start: 10-25-2021 End: 10-25-[address] FELIX MALCOLM . Facility:H1 Start: 10-24-2021 End: 11-23-2021 ambulatory SHAIKH Alistair SINGH Facility:H1 Start: 10-21-2021 End: 10-22-[address] FELIX MALCOLM . Facility:[facility]1 Start: 10-20-2021 End: 10-21-2021 Evaluation and management of inpatient DR EZEKIEL DERAS . Facility:[facility]1 Start: 10-06-2021 End: 10-07-2021 ambulatory REBECCA NUNES . Facility:[facility]1 Start: 09-27-2021 End: 09-27-2021 Patient encounter procedure Isael BOSS [facility] [place] Start: 09-23-2021 End: 10-21-2021 ambulatory SHAIKH Alistair ARORAFely Facility: Start: 09-20-2021 End: 09-20-[address] EZEKIEL DERAS . Facility: Start: 09-16-2021 End: 09-17-[address] EZEKIEL DERAS . Facility: Start: 09-15-[address] EZEKIEL DERAS . Facili ty:H1 Start: 12-28-2017 End: 12-29-2017 Patient encounter CHRISTOPHER VALENCIA Facility:[facility] Start: 10-25-2017 End: 11-24-2017 Patient encounter MICHAEL LANDA Facility:[facility] Start: 09-17-2017 End: 09-18-2017 Patient encounter MICHAEL HERNÁNDEZ Facility:[facility] Procedures Date Procedure Procedure Detail Performing Clinician Start: 05-29-2022 Insertion of Infusion Device into Upper Vein, Percutaneous Approach DR EZEKIEL DERAS . Start: 05-27-2022 Insertion of Infusion Device into Right Basilic Vein, Percutaneous Approach DR EZEKIEL DERAS . Start: 05-27-2022 Transfusion of Nonautologous Red Blood Cells into Central Vein, Percutaneous Approach DR EZEKIEL DERAS . Start: 01-25-2022 Transfusion of Nonautologous Red Blood Cells into Peripheral Vein, Percutaneous Approach DR EZEKIEL DERAS . Start: 12-28-2017 ANES UPR GI NDSC PX NOS AGUSTO RON Start: 12-28-2017 Esophagogastroduodenoscopy [EGD] with closed biopsy CHRISTOPHER VALENCIA Start: 09-17-2017 ANESTH LOWER ARM SURGERY AGUSTO RON Start: 09-17-2017 REPAIR FOREARM TENDON/MUSCLE ABDULAZIM M USTAPHA Appendectomy Isael ZoodlesL Cervical arthrodesis Isael NILL Comment on above: C5-C8 Cholecystectomy Isael NILL History of operative procedure on knee Isael NILL Structure of ligamen t of ankle joint (body structure) Isael NILL Total abdominal hyst erectomy with bilateral salpingo-oophorectomy Isael NILL Payers Date Payer Category Payer [facility] of [facility] ( and others) [id number] 1960 Unknown [id number] 2.16.840.1.735354.3.579.2.647 1960 Unknown [id number] 2.16.840.1.450360.3.579.2.647 1960 Unknown [id number] 2.16.840.1.682702.3.579.2.647 1960 Unknown [id number] 2.16.840.1.005911.3.579.2.593 1960 Unknown [id number] 2.16.840.1.277539.3.579.2.593 1961 Unknown [id number] 2.16.840.1.796453.3.579.2.593 1961 Unknown [id number] 2.16.840.1.268686.3.579.2.593 1961 Unknown [id number] 2.16.840.1.449524.3.579.2.593 1961 Unknown [id number] 2.16.840.1.121778.3.579.2.593 1961 Unknown [id number] 2.16.840.1.500774.3.579.2.593 1961 Unknown [id number] 2.16.840.1.280343.3.579.2.593 1961 Unknown [id number] 2.16.840.1.786341.3.579.2.593 1961 Unknown [id number] 2.16.840.1.221749.3.579.2.593 1961 Unknown [id number] 2.16.840.1.977294.3.579.2.593 1961 Unknown [id number] 2.16.840.1.184908.3.579.2.593 1961 Unknown [id number] 2.16.840.1.806351.3.579.2.593 1961 Unknown [id number] 2.16.840.1.595310.3.579.2.593 1961 Unknown [id number] 2.16.840.1.297346.3.579.2.593 1961 Unknown [id number] 2.16.840.1.163256.3.579.2.593 1961 Unknown [id number] 2.16.840.1.094006.3.579.2.593 1961 Unknown [id number] 2.16.840.1.423423.3.579.2.593 1961 Unknown [id number] 2.16.840.1.487837.3.579.2.593 1961 Unknown [id number] 2.16.840.1.052015.3.579.2.593 1961 Unknown [id number] 2.16.840.1.364769.3.579.2.593 1961 Unknown [id number] 2.16.840.1.143190.3.579.2.593 1961 Unknown [id number] 2.16.840.1.167443.3.579.2.593 1961 Unknown [id number] 2.16.840.1.298244.3.579.2.593 1961 Unknown [id number] 2.16.840.1.863670.3.579.2.593 1961 Unknown [id number] 2.16.840.1.514045.3.579.2.593 1961 Unknown [id number] 2.16.840.1.316511.3.579.2.593 1961 Unknown [id number] 2.16.840.1.261638.3.579.2.593 1961 Unknown [id number] 2.16.840.1.093505.3.579.2.593 1961 Unknown [id number] 2.16.840.1.703370.3.579.2.593 1961 Unknown [id number] 2.16.840.1.313894.3.579.2.593 1961 Unknown [id number] 2.16.840.1.621902.3.579.2.593 1961 Unknown [id number] 2.16.840.1.728917.3.579.2.593 1961 Unknown [id number] 2.16.840.1.807872.3.579.2.593 1961 Unknown [id number] 2.16.840.1.441553.3.579.2.593 1961 Unknown [id number] 2.16.840.1.850745.3.579.2.593 1961 Unknown [id number] 2.16.840.1.864922.3.579.2.593 1961 Unknown [id number] 2.16.840.1.576195.3.579.2.593 1961 Unknown [id number] 2.16.840.1.066188.3.579.2.593 1961 Unknown [id number] 2.16.840.1.397604.3.579.2.593 1961 Unknown [id number] 2.16.840.1.277081.3.579.2.593 1961 Unknown [id number] 2.16.840.1.335168.3.579.2.593 1961 Unknown [id number] 2.16.840.1.882179.3.579.2.593 1961 Unknown [id number] 2.16.840.1.258832.3.579.2.593 1961 Unknown [id number] 2.16.840.1.170092.3.579.2.593 1961 Unknown [id number] 2.16.840.1.765852.3.579.2.593 1958 [employer] ( and others) [id number] 1958 Medicare [id number] 1958 Self-pay [id number] Social History Date Type Detail Facility Start: 09-27-2021 Tobacco smoking status Never s moked tobacco (finding) [facility] [place] Tobacco smoking status Never [facility] Sex Assigned At Female Genera [facility] Functional Status Date Assessment Result Facility 09-27-2021 Functional Status N/A [facility] Clinical Note 09-29-2022 Note Date & Type Note Facility 09-29-2022 Note Called pt to schedul e consultation for Cervical Stenosis. Pt states that she was seen in the ED on 09/27 and is scheduled for surgery on 10/[address] Valenzuela. [facility] Consultation note 06-13-2022 Note Date & Type Note Facility 06-13-2022 Note [facility] Consultation note 01-05-2022 Note Date & Type Note Facility 01-05-2022 Note [facility] Consultation note 11-17-2021 Note Date & Type Note Facility 11-17-2021 Note [facility] Clinical Note 10-10-2021 Note Date & Type Note Facility 10-10-2021 Note Chief Complaint consultation for thigh mass HPI Staff 60 year old female presents on consultation from Dr. Deras for right thigh mass. Reports 6 month history of stated mass that significantly grew in a short period of time and continues to grow. States she has intermittent pain in this area. CT femur completed 08/25 without appreciable mass. History of Present Illness 60 yo female with h/o CAD, COPD, h/o DVT on Coumadin, seizure d/o, PVD, protein S deficiency, chronic back pain, referred for possible right thigh mass, patient reports 6 month h/o swelling in right lateral thigh, some intermittent soreness, no injury to area, no skin changes; recent ct scan of area wnl, no mass noted; images personally reviewed; small granuloma in subcutaneous fat noted, likely from old trauma/injection. Review of Systems PHQ Score Initial Depression Screen Score: 0 ROS - Provider Constitutional: no fever, no sweats, no weight loss. Eyes: yes glasses, no blurred vision, no visual loss. ENMT: no dentures, no hoarseness, no swallowing difficulties, no hearing loss, no ear infection(s), no nose bleeds. Cardiovascular: normal blood pressure, no chest pain, regular heartbeat, no heart murmur. Respiratory: no shortness of breath, no cough, no asthma, no wheezing. Gastrointestinal: no nausea, no vomiting, no diarrhea, no constipation, no blood in stool, no change in bowel habits, no abdominal pain, no hepatitis. Genitourinary: no kidney stones, no urine infection, no dysuria. Musculoskeletal: yes pain, yes weakness. Skin: no changing moles, no rash, yes skin lumps. Neurologic: no seizures, no epilepsy, no headache. Psychiatric: no emotional or psychiatric problem. Heme/Lymph: no bleeding problems, no anemia, no blood clots, no transfusions. Allergy/Immunologic: no swollen lymph nodes/glands, no IV drug abuse. Other: Additional ROS info: Except as noted in the above Review of Systems and in the History of Present Illness, all other systems have been reviewed and are negative or noncontributory. Physical Exam Vitals & Measurements HR: 68(Peripheral) RR: 16 BP: 116/76 HT: 157.5 cm HT: 157.48 cm WT: 53.7 kg WT: 53.7 kg BMI: 21.65 HEENT: normal conjunctiva, sclera clear, no scleral icterus, EOM intact, PERRLA, oral mucosa moist without lesions. Neck: trachea midline, no mass, symmetric, no thyromegaly or nodules, no adenopathy Lymphatic: no cervical adenopathy, Musculoskeletal: normal gait, digits and nails without infection, nodes, cyanosis, clubbing. Skin: no rashes, no lesions, no ulcers, asymmetry of subcutaneous fat right thigh more prominent that left side, nontender, no masses or nodules appreciated. Psychiatric/Neuro: oriented to time, place, person, judgement normal, affect appropriate for age, insight intact, no focal deficits. Tests: , x-rays reviewed, review of old records completed, Assessment/Plan 1. Lump of right thigh (R22.41: Localized swelling, mass and lump, right lower limb) asymmetry of subcutaneous fat and small granuloma;no indication for surgical intervention; call with problems/questions. Follow-up No qualifying data available Problem List/Past Medical History Ongoing Anticoagulated Atherosclerotic heart disease BMI 21.0-21.9, adult Cervical radiculopathy Cervical spondylosis with myelopathy Chronic obstructive pulmonary disease GERD (gastroesophageal reflux disease) History of Clostridium difficile infection History of DVT (deep vein thrombosis) History of nephrolithiasis History of pancreatitis History of viral hepatitis IBS (irritable bowel syndrome) Insomnia Iron deficiency anemia Lumbar radiculopathy Lump of right thigh Migraines Orthostatic hypotension GUILLERMO (obstructive sleep apnea) Osteoporosis Peripheral vascular disease Protein S deficiency Seizure disorder Sinus tachycardia Varicose veins of legs Historical No qualifying data Procedure/Surgical History Appendectomy, Cervical spinal fusion, Cholecystectomy, History of knee surgery, Ligament of ankle joint, SUGAR BSO - Total abdominal hysterectomy and bilateral salpingo-oophorectomy. Medications albuterol 0.083% Inh Elvira 3 mL, 2.5 mg= 3 mL, NEB, QID CeleBREX 200 mg Cap, 200 mg= 1 cap(s), Oral, BID Creon 24,000 units oral delayed release capsule, 1 cap(s), Oral, TID cyproheptadine 4 mg Tab, 4 mg= 1 tab(s), Oral, Bedtime dicyclomine 20 mg Tab, 20 mg= 1 tab(s), Oral, TID ferrous sulfate 325 mg oral enteric coated tablet, 325 mg= 1 tab(s), Oral, TID gabapentin 100 mg Cap, 500 mg= 5 cap(s), Oral, TID hydrOXYzine pamoate 25 mg Cap, 25 mg= 1 cap(s), Oral, QID Melatonin 10 mg oral capsule, 10 mg= 1 cap(s), Oral, Once a day (at bedtime) MiraLax, 17 gm, Oral, Daily ondansetron 4 mg Dis Tab, 4 mg= 1 tab(s), Oral, QID potassium chloride 20 mEq ER Tab, 20 mEq= 1 tab(s), Oral, TID sucralfate 1 g Tab, 1 gm= 1 tab(s), Oral, QIDACHS temazepam 30 mg Cap, 30 mg= 1 cap(s), Oral, Once a day (at bedtime), PRN (more content not included)... [facility] Comment on above: Result Comment: Elec tronically Signed By: KARYN COE, Isael Silverman\Date and Time Signed: 10/10/21 10:36 EDT Consultation note 10-06-2021 Note Date & Type Note Facility 10-06-2021 [facility] note Note Date & Type Note Facility Evaluation + Plan note No data available for this section [facility] Discharge instructions Note Date & Type Note Facility Hospital Discharge instructions No data available for this section [facility] [place] Progress note Note Date & Type Note Facility Progress note No data available for this section [facility] [place] Summary Purpose Family History No Family History Records FoundNo Family History Records FoundNo Family History Records FoundNo Family History Records Found Advance Directives No Advanced Directives Records FoundNo Advanced Directives Records FoundNo Advanced Directives Records FoundNo Advanced Directives Records Found Procedure Findings Note MR#: [id number] Pt. Name: Feroz Power Surgery Date: 12/28/2017 Room #: 0C Date of : 1960 PROCEDURE NOTEATTENDING: Christopher Valencia M.D.PROCEDURE PERFORMED: Endoscopic ultrasound with biopsy.INDICATIONS: Dilated common bile duct with history of pancreatitis, ruleout common bile duct stone, rule out malignancy.MEDICATIONS: General anesthesia administered by Anesthesia team.PROCEDURE PERFORMED: Endoscopic ultrasound with biopsy.PROCEDURE IN DETAIL: After obtaining the informed consent, which includethe risks, benefits, alternatives, and complications, complications includebleeding, perforation, and reaction to medications, the patient was placedin the left lateral decubitus position. After receiving general anesthesiaadministered by Anesthesia team after which the Olympus video GIF-180gastroscope was introduced through the mouth down to the esophagus,stomach, then to the 1st and 2nd part of the duodenum with no difficulties.The examination (more content not included)... Additional Source Comments INFORMATION SOURCE (unrecogn ized section and content) DATE CREATED AUTHOR 01/27/2018 [facility] DATE CREATED AUTHOR AUTHOR'S ORGANIZ ATION 10/14/2021 [facility] DATE CREATED AUTHOR AUTHOR'S ORGANIZ ATION 09/01/2022 [facility] DATE CREATED AUTHOR AUTHOR'S ORGANIZ ATION 10/27/2022 [facility] Care Team (unrecognized sect ion and content) Personnel Name: Ezekiel Deras MD Address: [address] [place] [address] FOR RECORDS PERTAINING TO PATIENTS WHO ARE OR HAVE BEEN ENROLLED IN A CHEMICAL DEPENDENCY/SUBSTANCEABUSE PROGRAM, SOME INFORMATION MAY BE OMITTED. This clinical summary was aggregated from multiple sources. Caution should be exercised in using it in the provision of clinical care. This summary normalizes information from multiple sources, and as a consequence, information in this document may materially change the coding, format and clinical context of patient data. In addition, data may be omitted in some cases. CLINICAL DECISIONS SHOULD BE BASED ON THE PRIMARY CLINICAL RECORDS. [facility]. provides no warranty or guarantee of the accuracy or completeness of information in this document.
[2023-04-18 10:30] LABS: Basophils Absolute Auto 0.1 10^3/uL (0.0-0.1); Basophils Percent Auto 0.9 % (0.2-2.0); Eosinophils Absolute Auto 0.1 10^3/uL (0.0-0.7); Eosinophils Percent Auto 1.5 % (0.9-7.0); Hematocrit 40.1 % (36.0-48.0); Hemoglobin 13.1 g/dL (12.0-16.0); Immature Granulocytes Abs Auto 0.03 10^3/uL (0.00-0.03); Immature Granulocytes Pct Auto 0.3 % (0.0-0.5); Lymphocytes Absolute Auto 1.3 10^3/uL (1.2-3.8); Lymphocytes Percent Auto 15.3 % (20.5-60.0); Mean Corpuscular HGB Conc 32.7 g/dL (29.9-35.2); Mean Corpuscular Hemoglobin 31.3 pg (26.7-34.0); Mean Corpuscular Volume 95.7 fL (81.0-99.0); Mean Platelet Volume 10.5 fL (9.5-13.5); Monocytes Absolute Auto 0.8 10^3/uL (0.3-0.8); Monocytes Percent Auto 8.6 % (1.7-12.0); Neutrophils Absolute Auto 6.4 10^3/uL (1.4-6.5); Neutrophils Percent Auto 73.4 % (43.0-75.0); Platelet Count 303 10^3/uL (150-450); Red Blood Count 4.19 10^6/uL (4.20-5.40); White Blood Count 8.7 10^3/uL (4.0-11.0)
[2023-04-18 10:40] LABS: Anion Gap 19.4; BUN Creatinine Ratio 31.8; Bilirubin Total 0.4 mg/dL (0.2-1.0); Calcium 9.3 mg/dL (8.5-10.1); Carbon Dioxide 27.2 mmol/L (21.0-32.0); Chloride 98 mmol/L (98-107); Estimated GFR (African America >60 (>=60); Estimated GFR (Non-African Ame >60 (>=60); Glucose 93 mg/dL (74-106); Potassium 3.6 mmol/L (3.5-5.1); Sodium 141 mmol/L (136-145)
[2023-04-18 10:41] LABS: Alanine Aminotransferase 95 U/L (14-59); Albumin Globulin Ratio 0.8; Albumin Level 3.7 g/dL (3.4-5.0); Alkaline Phosphatase 197 U/L (46-116); Aspartate Amino Transferase 98 U/L (15-37); Globulin 4.4 g/dL; Total Protein 8.1 g/dL (6.4-8.2); Troponin I High Sensitivity 6.9 pg/mL (4.0-51.3)
[2023-04-18] MEDS: FAMOTIDINE/PF 20 MG/2 ML VIAL IV (11:04)
[2023-04-18] MEDS: KETOROLAC TROMETHAMINE 30 MG/ML VIAL 15 MG IVP (11:04)
[2023-04-18 11:19] LABS: INR 1.67; Prothrombin Time 17.2 sec (9.0-11.6)
--- NOTE | 2023-04-18 12:20 | ED.ABDPAIN1 ---
HPI - Abdominal Pain General Chief Complaint: Abdominal Pain Stated Complaint: HIGH BLOOD PRESSURE/ ABDOMINAL PAIN Time Seen by Provider: 04/18/23 09:53 Source: patient Mode of arrival: walk-in Limitations: no limitations History of Present Illness HPI narrative: The patient presenting to us with 2 days history of right upper quadrant pain associated with nausea vomiting and not tolerating any p.o.. The patient sent to us from her primary care office and. she usually apparently get admitted for dehydration and the patient mentioned that she have diarrhea too. The patient right upper quadrant does not radiate associated with no other complaint other than the nausea and vomiting Related Data Home Medications Medication Instructions Recorded Confirmed cyclobenzaprine 10 mg tablet 20 mg PO BEDTIME 12/14/22 04/18/23 temazepam 30 mg capsule 30 mg PO BEDTIME 12/14/22 04/18/23 hydroxyzine pamoate 25 mg capsule 25 mg PO Q6H PRN anxiety 01/17/23 04/18/23 (Vistaril) gabapentin 400 mg capsule 400 mg PO Q8H 04/18/23 04/18/23 Previous Rx's Medication Instructions Recorded omeprazole 40 mg capsule,delayed 40 mg PO QD 30 days #30 caps 12/17/22 release Allergies Allergy/AdvReac Type Severity Reaction Status Date / Time prochlorperazine Allergy Intermediate Unknown Verified 09/21/22 09:32 [From Compazine] Iodinated Contrast Media AdvReac Severe Verified 02/28/23 13:01 ivp Allergy Severe Rash Uncoded 09/21/22 09:32 Review of Systems ROS Status of ROS 10 or more systems reviewed and unremarkable except as noted in history and below [facility] Medical History (Updated 04/18/23 @ 14:02 by Jade Shine MD) [place] filter in place ?Z95.828 - Presence of other vascular implants and grafts (ICD-10) Diverticulitis ?K57.92 - Diverticulitis of intestine, part unspecified, without perforation or abscess without bleeding (ICD-10) Gastroenteritis ?K52.9 - Noninfective gastroenteritis and colitis, unspecified (ICD-10) Stroke ?I63.9 - Cerebral infarction, unspecified (ICD-10) Migraine ?G43.909 - Migraine, unspecified, not intractable, without status migrainosus (ICD-10) Fibromyalgia syndrome ?M79.7 - Fibromyalgia (ICD-10) Thoracic outlet syndrome ?G54.0 - Brachial plexus disorders (ICD-10) Protein S deficiency ?D68.59 - Other primary thrombophilia (ICD-10) Surgical History (Updated 12/14/22 @ 10:46 by Vangie Mason) H/O neck surgery ?Z98.890 - Other specified postprocedural states (ICD-10) H/O: hysterectomy ?Z90.710 - Acquired absence of both cervix and uterus (ICD-10) H/O knee surgery ?Z98.890 - Other specified postprocedural states (ICD-10) History of ankle surgery ?Z98.890 - Other specified postprocedural states (ICD-10) Hx of appendectomy ?Z90.49 - Acquired absence of other specified parts of digestive tract (ICD-10) Family History (Updated 12/14/22 @ 10:47 by Vangie Mason) Father Family history of cancer Mother Family history of cancer Sister Family history of cancer Brother Family history of diabetes mellitus Social History (Updated 12/14/22 @ 10:49 by Vangie Mason) Within the past year, how often did you have a drink containing alcohol: never Within the past year, how many standard drinks containing alcohol did you have on a typical day: 1 or 2 Within the past year, how often did you have six or more drinks on one occasion: never Total score: 0 Score interpretation: A score less than 3 is consistent with normal alcohol consumption. Smoking status: Never smoker Non-prescribed substance use: denies use Previous occupational history: disabled Highest level of school completed/degree received: high school graduate Are you now , , , , never or living with a partner: In a typical week, how many times do you talk on the telephone with family, friends, or neighbors: twice per week How often do you get together with friends or relatives: once per week How often do you attend jewish or yarsani services: 4 or more times per year Do you belong to any clubs or organizations such as jewish groups unions, fraternal or athletic groups, or school groups: no Total score: 2 Score interpretation: A score of greater than or equal to 2 indicates the lowest level of social isolation. Little interest or pleasure in doing things: not at all Feeling down, depressed, or hopeless: not at all Feel stressed/tense/nervous/anxious/difficulty sleeping: only a little Gender Identity: female Exam Narrative Exam Narrative: Nurses notes and vital signs reviewed and patient is not hypoxic. General: Well-appearing and in no apparent distress. Skin: Warm, dry, no pallor noted. No rash. Head: Normocephalic, atraumatic. Neck: Supple, non-tender. Eye: Pupils are equal, round and EOMI. No scleral icterus. Ears, Nose, Mouth, and Throat: TM are clear, no nasal mucosal hypertrophy. Oral mucosa is moist, no posterior oropharynx erythema, uvula is mid-line Cardiovascular: Regular Rate and Rhythm without murmur, gallop or rub. Respiratory: No accessory muscle use or respiratory distress. Lungs are clear to auscultation, no wheezing, rales or rhonchi Chest Wall: no tenderness Back: No midline thoracic or lumbar vertebral tenderness. No CVA tenderness Musculoskeletal: normal ROM, no calf or popliteal tenderness, no lower extremity edema/swelling GI: Right upper quadrant tenderness negative Potter Neurological: A&O x4. No cranial nerve dysfunction observed. No truncal ataxia. Moves all extremities. Sensation intact. Psychiatric: Cooperative and interactive. Normal mood and affect. Constitutional Vital Signs, click to edit/add: Last Vital Signs Temp 97.8 F 04/18/23 09:49 Pulse 93 H 04/18/23 12:38 Resp 18 04/18/23 12:38 BP 178/105 H 04/18/23 12:38 Pulse Ox 99 04/18/23 12:38 O2 Del Method Room Air 04/18/23 09:49 Course Vital Signs Vital signs: Vital Signs Temperature 97.8 F 04/18/23 09:49 Pulse Rate 95 H 04/18/23 09:49 Respiratory Rate 18 04/18/23 09:49 Blood Pressure 181/108 H 04/18/23 09:49 Pulse Oximetry 100 04/18/23 09:49 Oxygen Delivery Method Room Air 04/18/23 09:49 Temperature 97.8 F 04/18/23 09:49 Pulse Rate 93 H 04/18/23 12:38 Respiratory Rate 18 04/18/23 12:38 Blood Pressure 178/105 H 04/18/23 12:38 Pulse Oximetry 99 04/18/23 12:38 Oxygen Delivery Method Room Air 04/18/23 09:49 MDM - Abdominal Pain MDM Narrative Medical decision making narrative: The patient EKG showing sinus rhythm with a heart rate of [address] elevation or depression CBC and chemistry showed no acute significant pathology CAT scan of the abdomen pelvis showed no acute significant pathology as well but the patient still have intractable nausea and vomiting and pain and should be admitted for observation Spoke with Dr. Deras who is the primary care doctor and he is agreeable with the plan Lab Data Labs: Lab Results 04/18/23 04/18/23 Range/Units 10:13 13:16 WBC 8.7 (4.0-11.0) 10^3/uL RBC 4.19 L (4.20-5.40) 10^6/uL Hgb 13.1 (12.0-16.0) g/dL Hct 40.1 (36.0-48.0) % MCV 95.7 (81.0-99.0) fL MCH 31.3 (26.7-34.0) pg MCHC 32.7 (29.9-35.2) g/dL RDW 15.0 (11.0-15.0) % Plt Count 303 (150-450) 10^3/uL MPV 10.5 (9.5-13.5) fL Neut % (Auto) 73.4 (43.0-75.0) % Lymph % (Auto) 15.3 L (20.5-60.0) % Rankin % (Auto) 8.6 (1.7-12.0) % Eos % (Auto) 1.5 (0.9-7.0) % Baso % (Auto) 0.9 (0.2-2.0) % Neut # (Auto) 6.4 (1.4-6.5) 10^3/uL Lymph # (Auto) 1.3 (1.2-3.8) 10^3/uL Rankin # (Auto) 0.8 (0.3-0.8) 10^3/uL Eos # (Auto) 0.1 (0.0-0.7) 10^3/uL Baso # (Auto) 0.1 (0.0-0.1) 10^3/uL Abs Immat Gran (auto) 0.03 (0.00-0.03) 10^3/uL Imm/Tot Granulo (auto) 0.3 (0.0-0.5) % PT 17.2 H (9.0-11.6) sec INR 1.67 Sodium 141 (136-145) mmol/L Potassium 3.6 (3.5-5.1) mmol/L Chloride 98 (98-107) mmol/L Carbon Dioxide 27.2 (21.0-32.0) mmol/L Anion Gap 19.4 BUN 21.0 H (7.0-18.0) mg/dL Creatinine 0.66 (0.55-1.02) mg/dL Est GFR ( Amer) >60 (>=60) Est GFR (Non-Af Amer) >60 (>=60) BUN/Creatinine Ratio 31.8 Glucose 93 (74-106) mg/dL Calcium 9.3 (8.5-10.1) mg/dL Total Bilirubin 0.4 (0.2-1.0) mg/dL AST 98 H (15-37) U/L ALT 95 H (14-59) U/L Alkaline Phosphatase 197 H (46-116) U/L Ammonia 18 (11-32) umol/L Troponin I High Sens 6.9 (4.0-51.3) pg/mL Total Protein 8.1 (6.4-8.2) g/dL Albumin 3.7 (3.4-5.0) g/dL Globulin 4.4 g/dL Albumin/Globulin Ratio 0.8 Discharge Plan Discharge Chief Complaint: Abdominal Pain Clinical Impression: Intractable abdominal pain Gastritis Qualifiers: Gastritis type: unspecified gastritis Chronicity: unspecified Gastritis bleeding: without bleeding Qualified Code(s): K29.70 - Gastritis, unspecified, without bleeding Patient Disposition: Admitted as Observation Time of Disposition Decision: 14:02
[2023-04-18] MEDS: MORPHINE SULFATE 2 MG/ML SYRINGE 1 MG IV (13:17)
[2023-04-18] MEDS: PANTOPRAZOLE SODIUM 40 MG VIAL IV (13:17)
[2023-04-18 13:33] LABS: Ammonia 18 umol/L (11-32)
[2023-04-18 13:37] LABS: Magnesium 1.8 mg/dL (1.8-2.4)
[2023-04-18 14:05] LABS: Amylase 401 U/L (25-115)
--- NOTE | 2023-04-18 14:40 | PC.NURSE ---
Patient refused OLIVER foley. Educated the importance. Patient agreed in understanding of Education. Continues to refuse
[2023-04-18] MEDS: ACETAMINOPHEN 500 MG TABLET 1000 MG PO (15:30)
[2023-04-18] MEDS: HYDROXYZINE PAMOATE 25 MG CAPSULE PO ×2 (15:30→21:57)
[2023-04-18] MEDS: GABAPENTIN 400 MG CAPSULE PO ×3 (15:30→22:42)
[2023-04-18] MEDS: HYOSCYAMINE SULFATE 0.125 MG TAB.SUBL 0.25 MG SL (16:10)
[2023-04-18] MEDS: MEPERIDINE HCL/PF 25 MG/ML VIAL 12.5 MG IVP ×2 (16:10→20:26)
[2023-04-18] MEDS: LACTATED RINGER'S SOLUTION 1,000 ML 100 ML IV (16:10)
[2023-04-18] MEDS: WARFARIN SODIUM 5 MG TABLET PO (16:54)
[2023-04-18 17:38] LABS: Bilirubin Urine NEGATIVE (NEGATIVE); Blood Urine NEGATIVE (NEGATIVE); Clarity Urine CLEAR (CLEAR); Color Urine YELLOW (YELLOW); Glucose Urine UA NEGATIVE (NEGATIVE); Ketones Urine NEGATIVE (NEGATIVE); Leukocyte Esterase Urine NEGATIVE (NEGATIVE); Nitrite Urine NEGATIVE (NEGATIVE); Protein Urine NEGATIVE (NEG/TRACE); Specific Gravity Urine 1.015 (1.005-1.025); Urobilinogen Urine 0.2 EU/dL (0.2-1.0); pH Urine 6.5 (5.0-9.0)
[2023-04-18 17:40] LABS: Urine Microscopic Indicated NO
[2023-04-18 17:55] LABS: Amylase 93 U/L (25-115)
[2023-04-18] MEDS: ERTAPENEM SODIUM 1 GM in 0.9 % SODIUM CHLORIDE 50 ML IV (20:25)
[2023-04-18] MEDS: CYCLOBENZAPRINE HCL 10 MG TABLET 20 MG PO (21:57)
[2023-04-18] MEDS: TEMAZEPAM 15 MG CAPSULE 30 MG PO (21:57)
[2023-04-19] MEDS: MEPERIDINE HCL/PF 25 MG/ML VIAL 12.5 MG IVP ×6 (02:22→21:00)
[2023-04-19] MEDS: LACTATED RINGER'S SOLUTION 1,000 ML 100 ML IV ×3 (02:22→22:25)
[2023-04-19 04:56] VITALS: BP 136/78; PULSE 92; RESP 16; TEMP 36.6; O2SAT 95
[2023-04-19] MEDS: HYOSCYAMINE SULFATE 0.125 MG TAB.SUBL 0.25 MG SL ×3 (06:30→16:35)
[2023-04-19] MEDS: GABAPENTIN 400 MG CAPSULE PO ×3 (06:30→22:25)
[2023-04-19] MEDS: ONDANSETRON PF 4 MG/2 ML VIAL IV ×4 (06:32→22:25)
[2023-04-19 07:17] LABS: Alanine Aminotransferase 189 U/L (14-59); Albumin Globulin Ratio 0.8; Albumin Level 3.1 g/dL (3.4-5.0); Alkaline Phosphatase 209 U/L (46-116); Amylase 109 U/L (25-115); Anion Gap 11.6; Aspartate Amino Transferase 188 U/L (15-37); BUN Creatinine Ratio 11.9; Bilirubin Total 0.4 mg/dL (0.2-1.0); Calcium 8.8 mg/dL (8.5-10.1); Carbon Dioxide 30.5 mmol/L (21.0-32.0); Chloride 103 mmol/L (98-107); Estimated GFR (African America >60 (>=60); Estimated GFR (Non-African Ame >60 (>=60); Glucose 79 mg/dL (74-106); Magnesium 1.9 mg/dL (1.8-2.4); Potassium 4.1 mmol/L (3.5-5.1); Sodium 141 mmol/L (136-145); Total Protein 7.1 g/dL (6.4-8.2)
[2023-04-19 07:30] LABS: Basophils Absolute Auto 0.1 10^3/uL (0.0-0.1); Basophils Percent Auto 1.7 % (0.2-2.0); Eosinophils Absolute Auto 0.3 10^3/uL (0.0-0.7); Eosinophils Percent Auto 4.6 % (0.9-7.0); Hematocrit 37.6 % (36.0-48.0); Hemoglobin 12.2 g/dL (12.0-16.0); Immature Granulocytes Abs Auto 0.01 10^3/uL (0.00-0.03); Immature Granulocytes Pct Auto 0.2 % (0.0-0.5); Lymphocytes Absolute Auto 1.6 10^3/uL (1.2-3.8); Lymphocytes Percent Auto 27.2 % (20.5-60.0); Mean Corpuscular HGB Conc 32.4 g/dL (29.9-35.2); Mean Corpuscular Hemoglobin 31.6 pg (26.7-34.0); Mean Corpuscular Volume 97.4 fL (81.0-99.0); Mean Platelet Volume 10.8 fL (9.5-13.5); Monocytes Absolute Auto 0.8 10^3/uL (0.3-0.8); Monocytes Percent Auto 14.3 % (1.7-12.0); Neutrophils Absolute Auto 3.1 10^3/uL (1.4-6.5); Platelet Count 265 10^3/uL (150-450); Red Blood Count 3.86 10^6/uL (4.20-5.40); Red Cell Distribution Width 15.4 % (11.0-15.0); White Blood Count 5.9 10^3/uL (4.0-11.0)
[2023-04-19 07:56] LABS: INR 2.21; Prothrombin Time 22.4 sec (9.0-11.6)
--- NOTE | 2023-04-19 08:05 | US_ITS ---
The [address] [address] Patient Name: FEROZ DUTTA MRN: [id number] date: 1960 Sex: F Assigned Patient Location: [place] Current Patient Location: Accession/Order Number: [id number] Exam Date: 04/19/2023 09:58 Report Date: 04/19/2023 10:33 At the request of: EZEKIEL CHENEY Procedure: US right upper quadrant EXAM: US right upper quadrant HISTORY: pancreatitis COMPARISON: 04/18/2023 CT exam. TECHNIQUE: Grayscale, color and Doppler ultrasound FINDINGS: The liver is normal in size, contour and echotexture. A 1.1 cm area of hyperechogenicity is identified in the right hepatic lobe, nonspecific. Possibly a hemangioma. Hepatopedal flow in the main portal vein. The gallbladder is surgically absent. Negative sonographic Potter sign. The common bile duct measures 1.8 mm, normal The visualized pancreas is normal. The right kidney measures 9.2 x 3.6 x 4.3 cm. Area of soft tissue echogenicity in the mid pole cortex measuring 1.3 x 1.3 x 1.4 cm is indeterminate. No ascites US/US right upper quadrant IMPRESSION: 1.4 cm right renal midpole cortical mass, even in retrospect not seen on the CT exam. Consider thin section pre and postcontrast CT for further evaluation Normal appearance of the pancreas Electronically authenticated by: TATIANA NOBLE Date: 04/19/2023 10:33
--- NOTE | 2023-04-19 08:05 | P.PN_ITS ---
Progress Note: Subjective Subjective Interval history: Patient with increasing abdominal pain at home and was admitted. Found to have acute pancreatitis. Place patient n.p.o. overnight. Labs are pending currently. Will also check ultrasound of abdomen for evaluation of gallbladder liver and pancreas Exam Constitutional Vital Signs, click to edit/add: Last Vital Signs Temp 97.8 F 04/19/23 04:56 Pulse 92 H 04/19/23 04:56 Resp 16 04/19/23 04:56 BP 136/78 04/19/23 04:56 Pulse Ox 95 04/19/23 04:56 O2 Del Method Room Air 04/19/23 04:56 Common normals: apparent distress Respiratory Common normals: normal respiratory effort Cardio Common normals: regular rate, regular rhythm and no murmurs GI Common normals: soft to palpation and no masses; tender Palpation: tender Progress Note: Objective Labs Labs: Short CBC 04/18/23 04/19/23 Range/Units 10:13 06:51 WBC 8.7 5.9 (4.0-11.0) 10^3/uL Hgb 13.1 12.2 (12.0-16.0) g/dL Hct 40.1 37.6 (36.0-48.0) % Plt Count 303 265 (150-450) 10^3/uL BMP 04/18/23 04/19/23 10:13 06:51 Sodium 141 141 Potassium 3.6 4.1 Chloride 98 103 Carbon Dioxide 27.2 30.5 BUN 21.0 H 8.0 Creatinine 0.66 0.67 Glucose 93 79 Calcium 9.3 8.8 Liver Function 04/18/23 04/19/23 Range/Units 10:13 06:51 Total Bilirubin 0.4 0.4 (0.2-1.0) mg/dL AST 98 H 188 H (15-37) U/L ALT 95 H 189 H (14-59) U/L Alkaline Phosphatase 197 H 209 H (46-116) U/L Albumin 3.7 3.1 L (3.4-5.0) g/dL Urine 04/18/23 Range/Units 10:45 Urine Color Yellow (YELLOW) Urine Clarity Clear (CLEAR) Urine pH 6.5 (5.0-9.0) Ur Specific [place] 1.015 (1.005-1.025) Urine Protein Negative (NEG/TRACE) mg/dL Urine Glucose (UA) Negative (NEGATIVE) mg/dL Progress Note: A&P Assessment and Plan (1) Acute pancreatitis: Qualifiers: Acute pancreatitis complication: unspecified Pancreatitis type: unspecified pancreatitis type Qualified Code(s): K85.90 - Acute pancreatitis without necrosis or infection, unspecified (2) Gastritis: Qualifiers: Chronicity: unspecified Gastritis bleeding: without bleeding Gastritis type: unspecified gastritis Qualified Code(s): K29.70 - Gastritis, unspecified, without bleeding Plan Uncontrolled hypertension, sinus tachycardia, elevated liver function test with elevated amylase and lipase consistent with pancreatitis. Continue with current antibiotic regiment, check ultrasound, continue with IV fluids. Pain control. Will advance diet if amylase and lipase have returned to normal Protein S deficiency-check INR GERD-continue with Protonix Will see how the day progresses today 50% chance she could go home later today. Likely to stay till tomorrow otherwise well. Will maintain observation status
[2023-04-19 11:37] VITALS: O2SAT 95
--- NOTE | 2023-04-19 12:49 | SWNOTE1 ---
ROGELIO met with pt to discuss dc needs. Pt lives at home and has help from her son. Pt has walker at home if needed, does not always use. Pt does not have home health at this time. Pt voices she does not anticipate discharge needs at this time. ROGELIO reviewed [facility] form with pt. Pt voiced understanding and had no questions at this time. Pt signed form, copy placed on chart and original given to pt.
[2023-04-19 14:32] VITALS: O2SAT 91
[2023-04-19] MEDS: HYDROXYZINE PAMOATE 25 MG CAPSULE PO (16:35)
[2023-04-19 16:56] VITALS: O2SAT 96
[2023-04-19] MEDS: WARFARIN SODIUM 5 MG TABLET PO (17:30)
[2023-04-19 20:40] VITALS: O2SAT 98
[2023-04-19] MEDS: ERTAPENEM SODIUM 1 GM in 0.9 % SODIUM CHLORIDE 50 ML IV (21:00)
[2023-04-19 21:11] VITALS: BP 155/91; PULSE 96; RESP 16; TEMP 36.8; O2SAT 95
[2023-04-19] MEDS: TEMAZEPAM 15 MG CAPSULE 30 MG PO (22:25)
[2023-04-19] MEDS: CYCLOBENZAPRINE HCL 10 MG TABLET 20 MG PO (22:25)
[2023-04-20] VITALS (7 sets, daily range): BP systolic 159; BP diastolic 94; PULSE 78–87; RESP 16–18; TEMP 36.6; O2SAT 85–98
[2023-04-20] MEDS: MEPERIDINE HCL/PF 25 MG/ML VIAL 12.5 MG IVP ×5 (00:28→14:55)
[2023-04-20] MEDS: ONDANSETRON PF 4 MG/2 ML VIAL IV ×3 (05:02→13:09)
[2023-04-20 05:51] LABS: Basophils Absolute Auto 0.1 10^3/uL (0.0-0.1); Basophils Percent Auto 1.1 % (0.2-2.0); Eosinophils Absolute Auto 0.3 10^3/uL (0.0-0.7); Eosinophils Percent Auto 5.1 % (0.9-7.0); Hematocrit 38.6 % (36.0-48.0); Hemoglobin 11.7 g/dL (12.0-16.0); Immature Granulocytes Abs Auto 0.01 10^3/uL (0.00-0.03); Immature Granulocytes Pct Auto 0.2 % (0.0-0.5); Lymphocytes Absolute Auto 1.6 10^3/uL (1.2-3.8); Lymphocytes Percent Auto 28.3 % (20.5-60.0); Mean Corpuscular HGB Conc 30.3 g/dL (29.9-35.2); Mean Corpuscular Hemoglobin 31.6 pg (26.7-34.0); Mean Corpuscular Volume 104.3 fL (81.0-99.0); Mean Platelet Volume 10.3 fL (9.5-13.5); Monocytes Absolute Auto 0.8 10^3/uL (0.3-0.8); Monocytes Percent Auto 14.1 % (1.7-12.0); Neutrophils Absolute Auto 2.9 10^3/uL (1.4-6.5); Neutrophils Percent Auto 51.2 % (43.0-75.0); Platelet Count 247 10^3/uL (150-450); Red Cell Distribution Width 15.3 % (11.0-15.0); White Blood Count 5.7 10^3/uL (4.0-11.0)
[2023-04-20 06:04] LABS: Alanine Aminotransferase 61 U/L (14-59); Albumin Globulin Ratio 0.7; Albumin Level 2.6 g/dL (3.4-5.0); Alkaline Phosphatase 185 U/L (46-116); Amylase 80 U/L (25-115); Anion Gap 10.2; Aspartate Amino Transferase 87 U/L (15-37); BUN Creatinine Ratio 12.9; Bilirubin Total 0.1 mg/dL (0.2-1.0); Calcium 8.4 mg/dL (8.5-10.1); Carbon Dioxide 24.8 mmol/L (21.0-32.0); Chloride 106 mmol/L (98-107); Estimated GFR (African America >60 (>=60); Estimated GFR (Non-African Ame >60 (>=60); Globulin 3.8 g/dL; Glucose 94 mg/dL (74-106); Magnesium 1.8 mg/dL (1.8-2.4); Sodium 137 mmol/L (136-145); Total Protein 6.4 g/dL (6.4-8.2)
[2023-04-20] MEDS: GABAPENTIN 400 MG CAPSULE PO ×2 (06:13→14:55)
[2023-04-20 06:24] LABS: INR 2.47; Prothrombin Time 24.9 sec (9.0-11.6)
--- NOTE | 2023-04-20 08:00 | P.DS_ITS ---
DS: Providers Provider Date of admission: 04/18/23 14:05 Primary care physician: Travis Deras MD Consults: 04/18/23 Consult to Dietitian Routine Reason For Exam: weight loss Reason for consultation: weight loss DS: Diagnosis Discharge Diagnosis (1) Acute pancreatitis: Qualifiers: Acute pancreatitis complication: unspecified Pancreatitis type: unspecified pancreatitis type Qualified Code(s): K85.90 - Acute pancreatitis without necrosis or infection, unspecified (2) Gastritis: Assessment and plan: Uncontrolled hypertension, sinus tachycardia, elevated liver function test with elevated amylase and lipase consistent with pancreatitis. Protein S deficiency GERD Qualifiers: Chronicity: unspecified Gastritis bleeding: without bleeding Gastritis type: unspecified gastritis Qualified Code(s): K29.70 - Gastritis, unspecified, without bleeding DS: Summary Hospital Course Hospital Course: Patient was seen and evaluated in the office with increasing abdominal pain. Tried multiple medications including nausea medication and Levsin, pain persisting. Nausea vomiting persisting. So patient was admitted. Patient found to have acute pancreatitis. He was placed n.p.o. overnight. Amylase and lipase improved. Patient has somewhat persistent pain. So she was kept an additional day to prevent her readmission. The following morning she did still have some slight pain. But overall is been eating the previous day. So she tolerates breakfast and lunch should be discharged home in improving condition. Medications see list. Follow-up with me in the office next week. Time Spent with Patient Time attestation: Total time spent providing and/or coordinating discharge services: Exam Constitutional Vital Signs, click to edit/add: Last Vital Signs Temp 97.8 F 04/20/23 05:08 Pulse 87 04/20/23 08:00 Resp 18 04/20/23 08:00 BP 159/94 H 04/20/23 05:08 Pulse Ox 93 L 04/20/23 12:19 O2 Del Method Room Air 04/20/23 11:21 O2 Flow Rate 2 04/20/23 01:22 Common normals: apparent distress Respiratory Common normals: normal respiratory effort Cardio Common normals: regular rate, regular rhythm and no murmurs GI Common normals: soft to palpation and no masses; tender Palpation: tender Discharge Plan Discharge Disposition: Home, Self-Care Condition: Good Discharge Medications: Continued hydroxyzine pamoate [Vistaril] 25 mg capsule 25 mg PO Q6H PRN (Reason: anxiety) cyclobenzaprine 10 mg tablet 20 mg PO BEDTIME temazepam 30 mg capsule 30 mg PO BEDTIME omeprazole 40 mg Capsule,Delayed Release(Dr/Ec) 40 mg PO QD 30 Days Qty: 30 0RF gabapentin 400 mg capsule 400 mg PO Q8H Patient Instructions: Pancreatitis (DC) Forms: Portal Instructions Follow Up Appointments: @ 9:[address] Deras [phone] Discharge Date/Time: 04/20/23 15:13
[2023-04-20] MEDS: HYOSCYAMINE SULFATE 0.125 MG TAB.SUBL 0.25 MG SL ×2 (08:55→12:02)
--- NOTE | 2023-04-20 12:02 | SWNOTE1 ---
Pt is discharging today, her ride could not get here until 6:30. SW spoke with pt and she is alright with SW setting up trips. SW called trips and they will be here between 3:00-3:30. Pt will not need wheelchair for transport. SW notified nursing of time.
--- NOTE | 2023-04-23 15:30 | CM.DCFOLLOWU ---
1st attempt. No answer
--- NOTE | 2023-04-24 15:58 | CM.DCFOLLOWU ---
Person spoke with: Kathleen How are you feeling? Much better How is your pain? Still having some abdominal pain- I went to f/u appt today with Dr. Deras Did you understand your discharge instructions? Yes Do you have any questions about your discharge instructions? No Were you given any prescriptions at discharge? no Were you able to get your prescriptions filled? N/A Do you understand how to take your medications as ordered? yes Do you have any questions about your follow up appointment and do you plan to keep your follow up appointment? No I had it today Is there anything else that you would like to discuss? No Questions/Comments/Concerns/Other:
== END 2023-04-20 15:13 | disposition home or self-care (01) ==
LOC: ER 14:02 → MS 14:10
PROVIDERS: Admitting Provider Family Medicine; Emergency Provider Emergency Medicine; PCP Family Medicine; Visit Provider Family Medicine
DX: K85.90 Acute pancreatitis without necrosis or infection, unspecified (principal); I10 Essential (primary) hypertension; R00.0 Tachycardia, unspecified; R79.89 Other specified abnormal findings of blood chemistry; D68.59 Other primary thrombophilia; K21.9 Gastro-esophageal reflux disease without esophagitis; K29.70 Gastritis, unspecified, without bleeding; Z90.710 Acquired absence of both cervix and uterus; M79.7 Fibromyalgia; Z98.890 Other specified postprocedural states; Z90.49 Acquired absence of other specified parts of digestive tract; Z79.899 Other long term (current) drug therapy; Z95.828 Presence of other vascular implants and grafts; Z86.73 Personal history of transient ischemic attack (TIA), and cerebral infarction without residual deficits
CPT/HCPCS: 36415; 74176; 76705; 80053; 81003; 82140; 82150; 83690; 83735; 84484; 85025; 85610; 93005; 94667; 94668; 94761; 96361; 96365; 96366; 96375; 96376; 99285; G0378; J1335; J1885; J2175; J2270; J2405; Q0177

== ENCOUNTER 2023-06-01 13:45 | Emergency (ER) | payer MEDICARE, OTHER, SELFPAY ==
[2023-06-01 13:49] VITALS: BP 174/107; PULSE 109; RESP 18; TEMP 36.8; O2SAT 98; BMI 22.1
--- NOTE | 2023-06-01 13:54 | ED_ITS ---
HPI - Abdominal Pain General Chief Complaint: Abdominal Pain Stated Complaint: ABDOMINAL PAIN Time Seen by Provider: 06/01/23 13:51 Source: patient Mode of arrival: walk-in Limitations: no limitations History of Present Illness HPI narrative: patient with chronic, recurrent abdominal pain presents with acute flare - complains of non focal abdominal pain. No fever, chills, diarrhea, flank pain or urinary symptoms. I got a call from her PCP, who she saw in the office. Dr Deras told me that he had offered direct admission and also offered out patient labs. They decided she would come to the ED for evaluation. She has previously undergone multiple CT scans, multiple endoscopic procedures and even MRI/MRA abdomen. No cause of her recurrent abdominal pain has been identified. Related Data Home Medications Medication Instructions Recorded Confirmed cyclobenzaprine 10 mg tablet 20 mg PO BEDTIME 12/14/22 06/01/23 temazepam 30 mg capsule 30 mg PO BEDTIME 12/14/22 06/01/23 hydroxyzine pamoate 25 mg capsule 25 mg PO Q6H PRN anxiety 01/17/23 06/01/23 (Vistaril) amlodipine 5 mg tablet 5 mg PO DAILY 06/01/23 06/01/23 warfarin 4 mg tablet 4 mg PO DAILY 06/01/23 06/01/23 Previous Rx's Medication Instructions Recorded omeprazole 40 mg capsule,delayed 40 mg PO QD 30 days #30 caps 12/17/22 release hyoscyamine sulfate 0.125 mg 0.125 mg PO Q6H PRN abdominal pain 06/01/23 sublingual tablet (Levsin/SL) #20 tabs nabumetone 750 mg tablet 750 mg PO BID PRN pain #8 tabs 06/01/23 promethazine 25 mg tablet 25 mg PO Q6H PRN nausea and 06/01/23 vomiting #14 tabs Allergies Allergy/AdvReac Type Severity Reaction Status Date / Time prochlorperazine Allergy Intermediate Unknown Verified 09/21/22 09:32 [From Compazine] Iodinated Contrast Media AdvReac Severe Verified 02/28/23 13:01 ivp Allergy Severe Rash Uncoded 09/21/22 09:32 [facility] Medical History (Updated 06/01/23 @ 16:02 by Reuben Briseno) Acute pancreatitis ?K85.90 - Acute pancreatitis without necrosis or infection, unspecified (ICD- 10) Gastritis ?K29.70 - Gastritis, unspecified, without bleeding (ICD-10) Intractable abdominal pain ?R10.9 - Unspecified abdominal pain (ICD-10) Starbuck filter in place ?Z95.828 - Presence of other vascular implants and grafts (ICD-10) Diverticulitis ?K57.92 - Diverticulitis of intestine, part unspecified, without perforation or abscess without bleeding (ICD-10) Gastroenteritis ?K52.9 - Noninfective gastroenteritis and colitis, unspecified (ICD-10) Stroke ?I63.9 - Cerebral infarction, unspecified (ICD-10) Migraine ?G43.909 - Migraine, unspecified, not intractable, without status migrainosus (ICD-10) Fibromyalgia syndrome ?M79.7 - Fibromyalgia (ICD-10) Thoracic outlet syndrome ?G54.0 - Brachial plexus disorders (ICD-10) Protein S deficiency ?D68.59 - Other primary thrombophilia (ICD-10) Surgical History (Updated 12/14/22 @ 10:46 by Vangie Mason) H/O neck surgery ?Z98.890 - Other specified postprocedural states (ICD-10) H/O: hysterectomy ?Z90.710 - Acquired absence of both cervix and uterus (ICD-10) H/O knee surgery ?Z98.890 - Other specified postprocedural states (ICD-10) History of ankle surgery ?Z98.890 - Other specified postprocedural states (ICD-10) Hx of appendectomy ?Z90.49 - Acquired absence of other specified parts of digestive tract (ICD- 10) Family History (Updated 12/14/22 @ 10:47 by Vangie Mason) Father Family history of cancer Mother Family history of cancer Sister Family history of cancer Brother Family history of diabetes mellitus Social History (Updated 12/14/22 @ 10:49 by Vangie Mason) Within the past year, how often did you have a drink containing alcohol: never Within the past year, how many standard drinks containing alcohol did you have on a typical day: 1 or 2 Within the past year, how often did you have six or more drinks on one occasion: never Total score: 0 Score interpretation: A score less than 3 is consistent with normal alcohol consumption. Smoking status: Never smoker Non-prescribed substance use: denies use Previous occupational history: disabled Highest level of school completed/degree received: Associate degree: occupational, technical, vocational program Are you now , , , , never or living with a partner: In a typical week, how many times do you talk on the telephone with family, friends, or neighbors: twice per week How often do you get together with friends or relatives: once per week How often do you attend latter-day or sabianism services: 4 or more times per year Do you belong to any clubs or organizations such as latter-day groups unions, [employer] or athletic groups, or school groups: no Total score: 2 Score interpretation: A score of greater than or equal to 2 indicates the lowest level of social isolation. Little interest or pleasure in doing things: not at all Feeling down, depressed, or hopeless: not at all Feel stressed/tense/nervous/anxious/difficulty sleeping: only a little Gender Identity: female Exam Constitutional Vital Signs, click to edit/add: Last Vital Signs Temp 98.2 F 06/01/23 13:49 Pulse 88 06/01/23 15:48 Resp 16 06/01/23 15:48 BP 141/92 H 06/01/23 15:27 Pulse Ox 98 06/01/23 15:48 O2 Del Method Room Air 06/01/23 14:27 Course Vital Signs Vital signs: Vital Signs Temperature 98.2 F 06/01/23 13:49 Pulse Rate 109 H 06/01/23 13:49 Respiratory Rate 18 06/01/23 13:49 Blood Pressure 174/107 H 06/01/23 13:49 Pulse Oximetry 98 06/01/23 13:49 Oxygen Delivery Method Room Air 06/01/23 13:49 Temperature 98.2 F 06/01/23 13:49 Pulse Rate 88 06/01/23 15:48 Respiratory Rate 16 06/01/23 15:48 Blood Pressure 141/92 H 06/01/23 15:27 Pulse Oximetry 98 06/01/23 15:48 Oxygen Delivery Method Room Air 06/01/23 14:27 MDM - Abdominal Pain MDM Narrative Medical decision making narrative: Peripheral IV established and blood drawn and sent for testing. She received NS IVF and IV Zofran. She also received ODT Levsin. Blood testing notable only for mild elevation in hepatic enzymes. Normal bilirubin. Abd xrays with findings suggesting ileus or gastroenteritis. No obsrtuction r free air. Patient no better after Ed treatment - risks and benefits of CT scan discussed especially in light of recent CT abd/pelvis 04/18/23. possible right renal mass noted on US 04/19/23 but not seen on CT 04/18/23. Patient given low dose morphine for pain. CT does not reveal any worrisome pathology. Results discussed with the patient. She requested phenergan, which I prescribed. She also was given prescriptions for Levsin. She can see Dr Deras for follow up. Lab Data Attestation: I reviewed the patient's lab results. Labs: Lab Results 06/01/23 06/01/23 Range/Units 14:19 15:07 WBC 5.5 (4.0-11.0) 10^3/uL RBC 4.02 L (4.20-5.40) 10^6/uL Hgb 12.4 (12.0-16.0) g/dL Hct 38.9 (36.0-48.0) % MCV 96.8 (81.0-99.0) fL MCH 30.8 (26.7-34.0) pg MCHC 31.9 (29.9-35.2) g/dL RDW 14.4 (11.0-15.0) % Plt Count 277 (150-450) 10^3/uL MPV 10.4 (9.5-13.5) fL Neut % (Auto) 63.0 (43.0-75.0) % Lymph % (Auto) 22.2 (20.5-60.0) % Bureau % (Auto) 13.4 H (1.7-12.0) % Eos % (Auto) 0.5 L (0.9-7.0) % Baso % (Auto) 0.7 (0.2-2.0) % Neut # (Auto) 3.5 (1.4-6.5) 10^3/uL Lymph # (Auto) 1.2 (1.2-3.8) 10^3/uL Bureau # (Auto) 0.7 (0.3-0.8) 10^3/uL Eos # (Auto) 0.0 (0.0-0.7) 10^3/uL Baso # (Auto) 0.0 (0.0-0.1) 10^3/uL Abs Immat Gran (auto) 0.01 (0.00-0.03) 10^3/uL Imm/Tot Granulo (auto) 0.2 (0.0-0.5) % Sodium 139 (136-145) mmol/L Potassium 3.6 (3.5-5.1) mmol/L Chloride 103 (98-107) mmol/L Carbon Dioxide 25.0 (21.0-32.0) mmol/L Anion Gap 14.6 BUN 19.0 H (7.0-18.0) mg/dL Creatinine 0.72 (0.55-1.02) mg/dL Est GFR ( Amer) >60 (>=60) Est GFR (Non-Af Amer) >60 (>=60) BUN/Creatinine Ratio 26.4 Glucose 96 (74-106) mg/dL Calcium 8.8 (8.5-10.1) mg/dL Total Bilirubin 0.3 (0.2-1.0) mg/dL AST 54 H (15-37) U/L ALT 73 H (14-59) U/L Alkaline Phosphatase 181 H (46-116) U/L Total Protein 7.6 (6.4-8.2) g/dL Albumin 3.4 (3.4-5.0) g/dL Globulin 4.2 g/dL Albumin/Globulin Ratio 0.8 Lipase 30.0 (16.0-77.0) U/L Urine Color Yellow (YELLOW) Urine Clarity Clear (CLEAR) Urine pH 5.5 (5.0-9.0) Ur Specific [place] 1.025 (1.005-1.025) Urine Protein Negative (NEG/TRACE) mg/dL Urine Glucose (UA) Negative (NEGATIVE) mg/dL Urine Ketones 15 A (NEGATIVE) mg/dL Urine Occult Blood Negative (NEGATIVE) Urine Nitrite Negative (NEGATIVE) Urine Bilirubin Negative (NEGATIVE) Urine Urobilinogen 0.2 (0.2-1.0) EU/dL Ur Leukocyte Esterase Negative (NEGATIVE) Imaging Data xr abd & ct abd/pelvis: Radiologist's impression: ITS Impressions Chest/Abdomen X-ray 06/01/23 14:41 IMPRESSION: No acute process seen in the chest. Consider mild ileus or gastroenteritis in the abdomen. No obvious bowel obstruction or free intraperitoneal air. Electronically authenticated by: LAMAR ANTHONY Date: 06/01/2023 14:59 Abdomen/Pelvis CT 06/01/23 15:05 IMPRESSION: No acute findings. 3 mm nonobstructive left renal calculus. Electronically authenticated by: JAX GAYTAN Date: 06/01/2023 15:44 Discharge Plan Discharge Stand Alone Forms: Portal Instructions Chief Complaint: Abdominal Pain Clinical Impression: Abdominal pain Patient Disposition: Home, Self-Care Time of Disposition Decision: 16:02 Prescriptions / Home Meds: New promethazine 25 mg tablet 25 mg PO Q6H PRN (Reason: nausea and vomiting) Qty: 14 0RF nabumetone 750 mg tablet 750 mg PO BID PRN (Reason: pain) Qty: 8 0RF hyoscyamine sulfate [Levsin/SL] 0.125 mg tablet, sublingual 0.125 mg PO Q6H PRN (Reason: abdominal pain) Qty: 20 0RF No Action hydroxyzine pamoate [Vistaril] 25 mg capsule 25 mg PO Q6H PRN (Reason: anxiety) amlodipine 5 mg tablet 5 mg PO DAILY warfarin 4 mg tablet 4 mg PO DAILY cyclobenzaprine 10 mg tablet 20 mg PO BEDTIME temazepam 30 mg capsule 30 mg PO BEDTIME omeprazole 40 mg Capsule,Delayed Release(Dr/Ec) 40 mg PO QD 30 Days Qty: 30 0RF Instructions: Abdominal Pain (ED) Referrals: Travis Deras MD [Primary Care Provider] - 1 week
[2023-06-01] MEDS: HYOSCYAMINE SULFATE 0.125 MG TAB.SUBL SL (14:07)
--- OUTSIDE RECORDS SUMMARY | 2023-06-01 14:07 | XMS_ITS | CCD ---
Author Name Unknown Address [address] [place] [address] Organization [facility] Care Team Providers Care Digital Content Producer Name Role Phone SHAD, ABDULAZIM Unavailable Unavailable SHAD, ABDULAZIM Unavailable Unavailable HOY, EZEKIEL Unavailable Unavailable HOY, EZEKIEL Unavailable Unavailable NE Unavailable Unavailable SHAD, ABDULAZIM Unavailable Unavailable NE Unavailable Unavailable AGUSTO RON Unavailable Unavailable SHAD, ABDULAZIM Unavailable Unavailable SHAD, ABDULAZIM Unavailable Unavailable SHAD, ABDULAZIM Unavailable Unavailable HOY, EZEKIEL Unavailable Unavailable NAWRAS, ALI T Unavailable Unavailable NAWRAS, ALI T Unavailable Unavailable HOY, EZEKIEL Unavailable Unavailable HOY, EZEKIEL Unavailable Unavailable NE Unavailable Unavailable NAWRAS, ALI T Unavailable Unavailable NE Unavailable Unavailable AGUSTO RON Unavailable Unavailable Ezekiel Deras Primary Care Physician [phone] DR EZEKIEL TELLO Attending Unavailable HOY Ciro, [...] Attending UnavailDR EZEKIEL Crawford Primary Care Unavailable EJNIFER SAPP Attending Unavailable JENIFER SAPP Admitting Unavailable [...] STEPHANIE Consulting Unavailable HOY ., DR FALCON Admoamr Unavailable HOY ., DR FALCON Attending Unavailable [...] DR EZEKIEL Kim Unavailable HOY ., DR FALCON Primary Care Unavailable HOY ., DR FALCON Admomar Unavailable HOY ., DR FALCON Attending Unavailable HOY ., DR FALCON Primary Care Unavailable HOY ., DR FALCON Consulting Unavailable HOY ., DR FALCON Admitting Unavailable HOY ., DR FALCON Attending [...] Drug Allergy 08-05-19 18 Anaphylaxis (disorder) [facility] Repository (4 sources) prochlorperazine Drug Allergy 02-04-20 AOF [facility] Repository (4 sources) Iodinated Contrast Media - IV Dye Drug allergy (disorder) 02-04-20 AOF [facility] Repository (1 source) Baclofen; Translations: [baclofen] Drug Allergy Anaphylaxis (disorder) [facility] [place] (1 source) cefdinir; Translations: [cefdinir] Drug Allergy Weal (disorder) [facility] [place] (1 source) Contrast media; Translations: [contrast media (iodine-based)] Drug allergy Anaphylaxis (disorder) [facility] [place] (1 source) Prochlorperazine; Translations: [prochlorperazine] Drug Allergy Weal (disorder) [facility] [place] (2 sources) Clindamycin Drug Allergy 10-05-19 17 [facility] Repository (2 sources) Dihydroergotamine Drug Allergy 07-13-19 21 [facility] Repository (1 source) HYDROmorphone Drug Allergy 05-11-19 22 [facility] Repository (1 source) Valproate Drug Allergy [facility] Repository (1 source) ALLERGIES NOT ON FILE; Translations: [ALLERGIES NOT ON FILE] Propensity to adverse reactions (disorder) 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 Couldn't confirm that her line was removed. Call to pt and she verified IV was removed upon discharge from [place]. Normal [facility] 36on 10-10-2022 36 Opat received. Order s confirmed with [facility] at [facility] for meds, labs and EOT. Transferred to [facility] for a follow appt to be scheduled. Normal [facility] CT CHEST WO CONon 08-09-2022 CT CHEST WO CON Normal The [facility] NM BONE SC WH BODYon 023 NM BONE SC WH BODY Normal The [facility] CBC AUTO DIFFon 07-31-2022 BASO # 0.1 103/ul Normal 0.0-0.1 [facility] Comment on above: Performed By: #### C BC ####[facility] [address] [place] [address]DrCiro Hemphill Basophils/100 WBC (Bld) 1.3 % Normal 0.2-2.0 [facility] Comment on above: Performed By: #### C BC ####[facility] Pxqurkytut[address] [place] [address]Dr. Lizandro Hemphill EO # 0.2 103/ul Normal 0.0-0.7 [facility] Comment on above: Performed By: #### C BC ####[facility] Iqfrfaqehe4286 [place] [address]Dr. Lizandro Hemphill Eosinophils/100 WBC (Bld) 2.4 % Normal 0.9-7.0 [facility] Comment on above: Performed By: #### C BC ####[facility] [address]vq[address] [place], [place] [address]Dr. Lizandro Hemphill Erythrocyte distribution width (RBC) [Ratio] 19.4 % Critically high 11.0-15.0 [facility] Comment on above: Performed By: #### C BC ####[facility] Ltspanwsxf[address] [place], [place] [address]Dr. Lizandro Hemphill Hematocrit (Bld) [Volume fraction] 39.6 % Normal 36.0-48.0 [facility] Comment on above: Performed By: #### C BC ####[facility] Siystmtoxw[address] [place], [place] [address]Dr. Lizandro Hemphill Hemoglobin (Bld) [Mass/Vol] 12.4 g/dL Normal 12.0-16.0 [facility] Comment on above: Performed By: #### C BC ####[facility] Dpwpzfrtng[address] [place], [place] [address]Dr. Lizandro Hemphill IG # 0.02 10e3/ul Normal 0.00-0.03 [facility] Comment on above: Performed By: #### C BC ####[facility] Qpeegpuwvq170[address] [place], [place] [address]Dr. Shanikaannie Hemphill IG % 0.3 % Normal 0.0-0.5 [facility] Comment on above: Performed By: #### C BC ####[facility] Qwevhgokgx32[address] [place], [place] [address]DrCiro Hemphill LYMPH # 1.1 103/ul Critically low 1.2-3.8 [facility] Comment on above: Performed By: #### C BC ####[facility] Clnlndfqwl7538 [place] [address]Dr. Lizandro Hemphill Lymphocytes/100 WBC (Bld) 15.3 % Critically low 20.5-60.0 [facility] Comment on above: Performed By: #### C BC ####[facility] Ghrvzgpdds9744 [place] [address]DrCiro Hemphill MANUAL DIFF REQ NO Normal [facility] Comment on above: Performed By: #### C BC ####[facility] Fnuqlkrcfr7316 [place] [id number]. Lizandro Hemphill MCH (RBC) [Entitic mass] 28.6 pg Normal 26.7-34.0 [facility] Comment on above: Performed By: #### C BC ####[facility] Bjddhcnzmb5[address] [place], [place] [address]Dr. Lizandro Hemphill MCHC (RBC) [Mass/Vol] 31.3 g/dL Normal 29.9-35.2 [facility] Comment on above: Performed By: #### C BC ####[facility] Aflhqhikwt[address] [place], [place] [address]DrCiro Hemphill MCV (RBC) [Entitic vol] 91.5 fL Normal 81.0-99.0 [facility] Comment on above: Performed By: #### C BC ####[facility] Rlouoipufj8983 [place] [address]Dr. Lizandro Hemphill MONO # 0.7 103/ul Normal 0.3-0.8 [facility] Comment on above: Performed By: #### C BC ####[facility] Welk[address]xdbd[address] [place], [place] [address]DrCiro Hemphill Monocytes/100 WBC (Bld) 10.5 % Normal 1.7-12.0 [facility] Comment on above: Performed By: #### C BC ####[facility] Sgemhklebu[address] [place], [place] [address]DrCiro Hemphill NEUT # 5.0 103/ul Normal 1.4-6.5 [facility] Comment on above: Performed By: #### C BC ####[facility] Gnctifhgbm3828 [place] [address]Dr. Lizandro Hemphill Neutrophils/100 WBC (Bld) 70.2 % Normal 43.0-75.0 [facility] Comment on above: Performed By: #### C BC ####[facility] Qjzgloxytd2032 [place] [phone]. Lizandro Hemphill Platelet mean volume (Bld) [Entitic vol] 10.5 fL Normal 9.5-13.5 [facility] Comment on above: Performed By: #### C BC ####[facility] Rfvbfwufir4587 [place] [address]Dr. Lizandro Joby PLT 294 103/ul Normal 150-450 [facility] Comment on above: Performed By: #### C BC ####[facility] Fhjpwvuyuo5391 [place] [address]Dr. Lizandro Hemphill RBC 4.33 106/ul Normal 4.20-5.40 [facility] Comment on above: Performed By: #### C BC ####[facility] Trnhg[address]au[address] [place], [place] [address]Dr. Lizandro Hemphill WBC 7.1 103/ul Normal 4.0-11.0 [facility] Comment on above: Performed By: #### C BC ####[facility] Aipjzptrnw[address] [place], [place] [address]Dr. Lizandro Joby CT HIP LT WO CONon 3 CT HIP LT WO CON Normal [facility] CT KNEE LT WO CONon 08-01-[address] KNEE LT WO CON Normal [facility] PROF 14(COMP METB)on 023 Albumin [Mass/Vol] 3.0 g/dL Critically low 3.4-5.0 Th e [facility] Comment on above: Performed By: #### C MP ####[facility] Xtrylfltcr8728 [place] [address]Dr. Shanikaannie Hemphill Albumin/Globulin [Mass ratio] 0.8 {ratio} Normal [facility] Comment on above: Performed By: #### C MP ####[facility] Fdoqzwaxfx0361 [place] [address]Dr. Lizandro Hemphill ALP [Catalytic activity/Vol] 163 U/L Critically high 46-116 [facility] Comment on above: Performed By: #### C MP ####[facility] Hkhxolhbma5478 [place] [address]Dr. Lizandro Hemphill ALT [Catalytic activity/Vol] 76 U/L Critically high 14-59 [facility] Comment on above: Performed By: #### C MP ####[facility] Jolgukmdop4541 [place] [address]Dr. Lizandro Hemphill Anion gap [Moles/Vol] 10.8 mmol/L Normal [facility] Comment on above: Performed By: #### C MP ####[facility] Mvxktnmbqb9745 [place] [address]Dr. Lizandro Hemphill AST [Catalytic activity/Vol] 79 U/L Critically high 15-37 [facility] Comment on above: Performed By: #### C MP ####[facility] Zmqxhkxldx1772 [place] [address]Dr. Lizandro Hemphill Bilirubin [Mass/Vol] 0.1 mg/dL Critically low 0.2-1.0 [facility] Comment on above: Performed By: #### C MP ####[facility] Grfvzzgags4064 [place] [address]Dr. Lizandro Hemphill Calcium [Mass/Vol] 9.2 mg/dL Normal 8.5-10.1 [facility] Comment on above: Performed By: #### C MP ####[facility] Kvyqolhjji1755 [place] [address]Dr. Lizandro Hemphill Chloride [Moles/Vol] 105 mmol/L Normal 98-107 [facility] Comment on above: Performed By: #### C MP ####[facility] Tdctinckxi[address] [place], [place] [address]Dr. Lizandro Hemphill CO2 [Moles/Vol] 29.1 mmol/L Normal 21.0-32.0 [facility] Comment on above: Performed By: #### C MP ####[facility] Jvtlwrbfrh2702 [place] [address]Dr. Lizandro Hemphill Creatinine [Mass/Vol] 0.74 mg/dL Normal 0.55-1.02 [facility] Comment on above: Performed By: #### C MP ####[facility] Lmujqvuman7363 [place] [phone]. Lizandro Hemphill EGFR-AF CYMRAES >60 Normal >=60 [facility] Comment on above: Performed By: #### C MP ####[facility] Osqesbttnc1517 [place] [address]Dr. Lizandro Hemphill EGFR-NON AF CYMRAES >60 Normal >=60 [facility] Comment on above: Performed By: #### C MP ####[facility] Uxzeposaes4733 [place] [address]Dr. Lizandro Hemphill Globulin (S) [Mass/Vol] 3.9 g/dL Normal [facility] Comment on above: Performed By: #### C MP ####[facility] Lljgbmyjcn9[address] [place], [place] [address]Dr. Lizandro Hemphill Glucose [Mass/Vol] 96 mg/dL Normal 74-106 [facility] Comment on above: Performed By: #### C MP ####[facility] Ndbvorgamh8[address] [place], [place] [address]Dr. Lizandro Hemphill Potassium [Moles/Vol] 3.9 mmol/L Normal 3.5-5.1 [facility] Comment on above: Performed By: #### C MP ####[facility] Jyqomsgeqm39[address] [place], [place] [address]Dr. Lizandro Hemphill Protein [Mass/Vol] 6.9 g/dL Normal 6.4-8.2 [facility] Comment on above: Performed By: #### C MP ####[facility] Akhjoikase298[address] [place], [place] [address]Dr. Lizandro Hemphill Sodium [Moles/Vol] 141 mmol/L Normal 136-145 [facility] Comment on above: Performed By: #### C MP ####[facility] Dxvmquuknx4837[address] [place], [place] [address]Dr. Lizandro Hemphill Urea nitrogen [Mass/Vol] 13.0 mg/dL Normal 7.0-18.0 [facility] Comment on above: Performed By: #### C MP ####[facility] Owvgbboesm[address] [place], [place] [address]Dr. Shanikaannie Hemphill Urea nitrogen/Creatinin e [Mass ratio] 17.6 mg/mg Normal [facility] Comment on above: Performed By: #### C MP ####[facility] Mbvevimohk4029[address] [place], [place] [address]Dr. Lizandro Hemphill PROTIMEon 07-31-2022 INR Coag (PPP) [Relative time] 1.56 {INR} Normal [facility] Comment on above: Performed By: #### P T, PTT ####[facility] Ednvhvkurb5[address] [place], [place] [address]Dr. Lizandro Hemphill INR GUIDELINES SEE BELOW Normal [facility] Comment on above: Result Comment: GUEVARA RED INR: 2.0 - 3.0 CONDITIONS NOT LISTED BELOW 2.5 - 3.5 FOR PROSTHETIC HEART VALVE REPLACEMENT 2.5 - 3.5 RECURRENT THROMBOSIS Performed By: #### P T, PTT ####[facility] Tylddhckcw7[address] [place], [place] [address]Dr. Lizandro Hemphill PT Coag (PPP) [Time] 16.1 s Critically high 9.0-11.6 [facility] Comment on above: Performed By: #### P T, PTT ####[facility] Gxncrrmrmu[address] [place], [place] [address]Dr. Lizandro Hemphill PTTon 07-31-2022 aPTT Coag (Bld) [Time] 30.4 s Normal 22.3-36.2 [facility] Comment on above: Performed By: #### P T, PTT ####[facility] Buxlvjhqht34[address] [place], [place] [address]Dr. Lizandro Hemphill CBC AUTO DIFFon 07-30-2022 BASO # 0.1 103/ul Normal 0.0-0.1 [facility] Comment on above: Performed By: #### C BC ####[facility] Qiuwnbzlyh1751 [place] [address]Dr. Lizandro Hemphill Basophils/100 WBC (Bld) 1.1 % Normal 0.2-2.0 [facility] Comment on above: Performed By: #### C BC ####[facility] Qkodkmhzoc7143 [place] [address]Dr. Lizandro Hemphill EO # 0.1 103/ul Normal 0.0-0.7 [facility] Comment on above: Performed By: #### C BC ####[facility] Xyykvratpw74[address] [place], [place] [address]Dr. Lizandro Hemphill Eosinophils/100 WBC (Bld) 2.7 % Normal 0.9-7.0 [facility] Comment on above: Performed By: #### C BC ####[facility] Nmfytafqfe[address] [place], [place] [address]Dr. Lizandro Hemphill Erythrocyte distribution width (RBC) [Ratio] 19.5 % Critically high 11.0-15.0 [facility] Comment on above: Performed By: #### C BC ####[facility] Skgjciiayh[address] [place], [place] [address]Dr. Lizandro Hemphill Hematocrit (Bld) [Volume fraction] 34.5 % Critically low 36.0-48.0 [facility] Comment on above: Performed By: #### C BC ####[facility] Yvtctcczuw[address] [place], [place] [address]Dr. Lizandro Hemphill Hemoglobin (Bld) [Mass/Vol] 10.8 g/dL Critically low 12.0-16.0 [facility] Comment on above: Performed By: #### C BC ####[facility] Ofrtgmtuie[address] [place], [place] [address]Dr. Lizandro Hemphill IG # 0.02 10e3/ul Normal 0.00-0.03 [facility] Comment on above: Performed By: #### C BC ####[facility] Aihlxlfiab18[address] [place], [place] [address]Dr. Lizandro Hemphill IG % 0.4 % Normal 0.0-0.5 [facility] Comment on above: Performed By: #### C BC ####[facility] T[address]xyzyzks80[address] [place], [place] [address]Qd. Lizandro Joby LYMPH # 1.0 103/ul Critically low 1.2-3.8 [facility] Comment on above: Performed By: #### C BC ####[facility] Faqcxchkee2380 [place], [place] [address]Re. Lizandro Joby Lymphocytes/100 WBC (Bld) 19.2 % Critically low 20.5-60.0 [facility] Comment on above: Performed By: #### C BC ####[facility] Uftzyfxjsn7480 [place] [id number]. Shanikaannie Hemphill MANUAL DIFF REQ NO Normal [facility] Comment on above: Performed By: #### C BC ####[facility] Xldzhlybki4270 [place] [id number]. Lizandro Joby MCH (RBC) [Entitic mass] 28.5 pg Normal 26.7-34.0 [facility] Comment on above: Performed By: #### C BC ####[facility] Yteiypiqvm5818 [place] [id number]. Lizandro Joby MCHC (RBC) [Mass/Vol] 31.3 g/dL Normal 29.9-35.2 [facility] Comment on above: Performed By: #### C BC ####[facility] Mourkahpij7703 [place] [id number]. Lizandro Hemphill MCV (RBC) [Entitic vol] 91.0 fL Normal 81.0-99.0 [facility] Comment on above: Performed By: #### C BC ####[facility] Dtsrtiwatq2401 [place] [id number]. Lizandro Hemphill MONO # 0.7 103/ul Normal 0.3-0.8 [facility] Comment on above: Performed By: #### C BC ####[facility] Hbzkztpmax0769 [place] [id number]. Lizandro Hemphill Monocytes/100 WBC (Bld) 12.5 % Critically high 1.7-12.0 [facility] Comment on above: Performed By: #### C BC ####[facility] Hctcyghrkv8822 [place] [id number]. Lizandro Hemphill NEUT # 3.4 103/ul Normal 1.4-6.5 [facility] Comment on above: Performed By: #### C BC ####[facility] Ew[address]hgkzl0606 [place], [place] [address]Wi. Lizandro Hemphill Neutrophils/100 WBC (Bld) 64.1 % Normal 43.0-75.0 [facility] Comment on above: Performed By: #### C BC ####[facility] Xuthnwwtky0792 [place] [id number]. Lizandro Hemphill Platelet mean volume (Bld) [Entitic vol] 10.9 fL Normal 9.5-13.5 [facility] Comment on above: Performed By: #### C BC ####[facility] Zsljvqyssl1997 [place] [id number]. Lizandro Hemphill PLT 284 103/ul Normal 150-450 [facility] Comment on above: Performed By: #### C BC ####[facility] Wuztaphkte8418 [place] [phone]. Lizandro Hemphill RBC 3.79 106/ul Critically low 4.20-5.40 [facility] Comment on above: Performed By: #### C BC ####[facility] Wahxmnejhc0754 [place] [phone]. Lizandro Hemphill WBC 5.3 103/ul Normal 4.0-11.0 [facility] Comment on above: Performed By: #### C BC ####[facility] Cikqjztanm8692 [place] [id number]. Lizandro Hemphill LIVER PROFILEon 07-30-2022 Albumin [Mass/Vol] 2.9 g/dL Critically low 3.4-5.0 [facility] Comment on above: Performed By: #### L IVER ####[facility] Deczebugvw3515 [place] [phone]. Lizandro Hemphill Albumin/Globulin [Mass ratio] 0.8 {ratio} Normal [facility] Comment on above: Performed By: #### L IVER ####[facility] Gvlrrczcik5038 [place] [phone]. Shanikaannie Joby ALP [Catalytic activity/Vol] 164 U/L Critically high 46-116 [facility] Comment on above: Performed By: #### L IVER ####[facility] Sgqcaocjgb0950 [place] [phone]. Lizandro Hemphill ALT [Catalytic activity/Vol] 91 U/L Critically high 14-59 [facility] Comment on above: Performed By: #### L IVER ####[facility] Iinwnswakm7001 [place] [phone]. Lizandro Hemphill AST [Catalytic activity/Vol] 113 U/L Critically high 15-37 [facility] Comment on above: Performed By: #### L IVER ####[facility] Aorewbrkxr3741 [place] [phone]. Lizandro Hemphill BILI, CONJUGATED 0.1 mg/dL Normal 0.0-0.2 [facility] Comment on above: Performed By: #### L IVER ####[facility] Fydkmtpibr0313 [place] [phone]. Lizandro Hemphill Bilirubin [Mass/Vol] 0.2 mg/dL Normal 0.2-1.0 [facility] Comment on above: Performed By: #### L IVER ####[facility] Jmpgbxaoiz6250 [place] [phone]. Lizandro Hemphill Globulin (S) [Mass/Vol] 3.7 g/dL Normal [facility] Comment on above: Performed By: #### L IVER ####[facility] Sgjfbjnyvr8949 [place] [phone]. Lizandro Hemphill Protein [Mass/Vol] 6.6 g/dL Normal 6.4-8.2 [facility] Comment on above: Performed By: #### L IVER ####[facility] Nizpcaaetx0210 [place] [phone]. Lizandro Hemphill PROF 14(COMP METB)on 023 Albumin [Mass/Vol] 2.8 g/dL Critically low 3.4-5.0 [facility] Comment on above: Performed By: #### C MP ####[facility] Vtbtpopnqx6592 [place] [address]Dr. Lizandro Joby Albumin/Globulin [Mass ratio] 0.8 {ratio} Normal [facility] Comment on above: Performed By: #### C MP ####[facility] Uvtismapws0876 [place] [address]Dr. Lizandro Joby ALP [Catalytic activity/Vol] 157 U/L Critically high 46-116 [facility] Comment on above: Performed By: #### C MP ####[facility] [address]fkmbulmvs[address] [place], [place] [address]Dr. Lizandro Hemphill ALT [Catalytic activity/Vol] 106 U/L Critically high 14-59 [facility] Comment on above: Performed By: #### C MP ####[facility] Qfxwwnutoq7[address] [place], [place] [address]Dr. Lizandro Hemphill Anion gap [Moles/Vol] 10.4 mmol/L Normal [facility] Comment on above: Performed By: #### C MP ####[facility] Lkbmyoztvm7[address] [place], [place] [address]Dr. Lizandro Joby AST [Catalytic activity/Vol] 171 U/L Critically high 15-37 [facility] Comment on above: Performed By: #### C MP ####[facility] Qwbsptfusj[address] [place], [place] [address]Dr. Lizandro Hemphill Bilirubin [Mass/Vol] 0.3 mg/dL Normal 0.2-1.0 [facility] Comment on above: Performed By: #### C MP ####[facility] Zcgvlbxyqq053[address] [place], [place] [address]Dr. Lizandro Hemphill Calcium [Mass/Vol] 8.2 mg/dL Critically low 8.5-10.1 [facility] Comment on above: Performed By: #### C MP ####[facility] Icqljjphnv[address] [place], [place] [address]Dr. Lizandro Hemphill Chloride [Moles/Vol] 107 mmol/L Normal 98-107 [facility] [facility] Comment on above: Performed By: #### C MP ####[facility] Fkpmsxxyxu[address] [place] [address]Dr. Lizandro Hemphill CO2 [Moles/Vol] 27.4 mmol/L Normal 21.0-32.0 [facility] Comment on above: Performed By: #### C MP ####[facility] Bzalykkmpw87[address] [place] [address]Dr. Lizandro Hemphill Creatinine [Mass/Vol] 0.74 mg/dL Normal 0.55-1.02 [facility] Comment on above: Performed By: #### C MP ####[facility] Krdrjmepsd4623[address] [place], [place] [address]Dr. Lizandro Hemphill EGFR-AF CYMRAES >60 Normal >=60 [facility] Comment on above: Performed By: #### C MP ####[facility] Qqlsufzekm0707[address] [place], [place] [address]Dr. Lizandro Hemphill EGFR-NON AF CYMRAES >60 Normal >=60 [facility] Comment on above: Performed By: #### C MP ####[facility] Pmufwwdxur7634[address] [place], [place] [address]Dr. Lizandro Hemphill Globulin (S) [Mass/Vol] 3.4 g/dL Normal [facility] Comment on above: Performed By: #### C MP ####[facility] Hujrhgghwn9[address] [place], [place] [address]Dr. Lizandro Hemphill Glucose [Mass/Vol] 123 mg/dL Critically high 74-106 T [facility] Comment on above: Performed By: #### C MP ####[facility] Pensvxpdwj130467 [address] [place], [place] [address]Dr. Lizandro Hemphill Potassium [Moles/Vol] 3.8 mmol/L Normal 3.5-5.1 [facility] Comment on above: Performed By: #### C MP ####[facility] Eprelcvrtb737967 [address] [place], [place] [address]Dr. Lizandro Hemphill Protein [Mass/Vol] 6.2 g/dL Critically low 6.4-8.2 [facility] Comment on above: Performed By: #### C MP ####[facility] Mqlixgraur[address] [place] [address]Dr. Lizandro Hemphill Sodium [Moles/Vol] 141 mmol/L Normal 136-145 [facility] Comment on above: Performed By: #### C MP ####[facility] Uaybtoipon9311 [place] [address]Dr. Lizandro Hemphill Urea nitrogen [Mass/Vol] 14.0 mg/dL Normal 7.0-18.0 [facility] Comment on above: Performed By: #### C MP ####[facility] Qiyhzlcald5[address] [place], [place] [address]Dr. Lizandro Hemphill Urea nitrogen/Creatinin e [Mass ratio] 18.9 mg/mg Normal [facility] Comment on above: Performed By: #### C MP ####[facility] Pgfjpfihep064267 [address] [place], [place] [address]Dr. Lizandro Hemphill PROTIMEon 07-30-2022 INR Coag (PPP) [Relative time] 1.08 {INR} Normal [facility] Comment on above: Performed By: #### P T, PTT ####[facility] Kcukvdzsor256[address] [place], [place] [address]Dr. Lizandro Hemphill INR GUIDELINES SEE BELOW Normal [facility] Comment on above: Result Comment: GUEVARA RED INR: 2.0 - 3.0 CONDITIONS NOT LISTED BELOW 2.5 - 3.5 FOR PROSTHETIC HEART VALVE REPLACEMENT 2.5 - 3.5 RECURRENT THROMBOSIS Performed By: #### P T, PTT ####[facility] Jrozucfdad1435[address] [place], [place] [address]Dr. Lizandro Hemphill PT Coag (PPP) [Time] 11.4 s Normal 9.0-11.6 [facility] Comment on above: Performed By: #### P T, PTT ####[facility] Kzwuduobzq154[address] [place], [place] [address]Dr. Lizandro Hemphill PTTon 07-30-2022 aPTT Coag (Bld) [Time] 29.3 s Normal 22.3-36.2 [facility] Comment on above: Performed By: #### P T, PTT ####[facility] Mipekchmwl[address] [place], [place] [address]Dr. Lizandro Hemphill UA RANDOM W/MICROSCOPICon BACTERIA NONE SEEN Normal NONE SEEN [facility] Comment on above: Performed By: #### U AMIC ####[facility] Tvrlalrmfg319367 [address] [place], [place] [address]Dr. Lizandro Hemphill Bilirubin Ql (U) Negative Normal NEGATIVE [facility] Comment on above: Performed By: #### U AMIC ####[facility] Jtbzhoarky935[address] [place], [place] [address]Dr. Lizandro Hemphill CAST NONE SEEN Normal NONE SEEN [facility] Comment on above: Performed By: #### U AMIC ####[facility] Mjqvwnabeh656867 [address] [place], [place] [address]Dr. Lizandro Hemphill Clarity (U) CLEAR Normal CLEAR [facility] Comment on above: Performed By: #### U AMIC ####[facility] Qvxjesnmht417367 [address] [place], [place] [address]Dr. Lizandro Hemphill Color (U) LT. YELLOW Normal YELLOW [facility] Comment on above: Performed By: #### U AMIC ####[facility] Fbigajzmyh647267 [address] [place], [place] [address]Dr. Lizandro Hemphill Crystals LM Nom (Urine sed) NONE SEEN Normal NONE SEEN [facility] Comment on above: Performed By: #### U AMIC ####[facility] Fuyvgjpkfh9[address] [place] [address]Dr. Lizandro Hemphill Epithelial cells LM Ql (Urine sed) NONE SEEN Normal NONE SEEN /RARE [facility] Comment on above: Performed By: #### U AMIC ####[facility] Jrzzmtpwde9634 [place] [address]Dr. Lizandro Hemphill Glucose Ql (U) 100 mg/dl Abnormal NEGATIVE [facility] Comment on above: Performed By: #### U AMIC ####[facility] Ropixfgckg865267 [address] [place], [place] [address]Dr. Lizandro Hemphill Hemoglobin Ql (U) Negative Normal NEGATIVE [facility] Comment on above: Performed By: #### U AMIC ####[facility] Fzwejedkuv47[address] [place], [place] [address]Dr. Lizandro Hemphill Ketones Ql (U) TRACE Abnormal NEGATIVE [facility] Comment on above: Performed By: #### U AMIC ####[facility] Dgmtnhezqt040867 [address] [place], [place] [address]Dr. Lizandro Hemphill LEUKOCYTES Negative Normal NEGATIVE [facility] Comment on above: Performed By: #### U AMIC ####[facility] Efcdshscig5[address] [place] [address]Dr. Lizandro Hemphill MUCOUS NONE SEEN Normal NONE SEEN [facility] Comment on above: Performed By: #### U AMIC ####[facility] Rrctnjcqlu492367 [address] [place], [place] [address]Dr. Lizandro Hemphill Nitrite Ql (U) Negative Normal NEGATIVE [facility] Comment on above: Performed By: #### U AMIC ####[facility] Iekcwguing288467 [address] [place], [place] [address]Dr. Lizandro Joby pH (U) 7.0 [pH] Normal 5-9 [facility] Comment on above: Performed By: #### U AMIC ####[facility] Wzhpjrcqsv205767 [address] [place], [place] [address]Dr. Lizandro Hemphill RBC NONE SEEN Abnormal 0-2 [facility] Comment on above: Performed By: #### U AMIC ####[facility] Samdmfrjxc102567 [address] [place], [place] [address]Dr. Lizandro Hemphill SPEC GRAVITY 1.015 Normal 1.005-<=1.025 [facility] Comment on above: Performed By: #### U AMIC ####[facility] Lquvsnmfnr288367 [address] [place], [place] [address]Dr. Lizandro Hemphill UA PROTEIN Negative Normal NEGATIVE/ TRACE [facility] Comment on above: Performed By: #### U AMIC ####[facility] Vrrzbtfhck444067 [address] [place], [place] [address]Dr. Lizandro Joby Urobilinogen Qn (U) 0.2 {Cassy'U}/dL Normal 0.2 - 1.0 [facility] Comment on above: Performed By: #### U AMIC ####[facility] Bvxpjnzgww[address] [place] [id number]. Lizandro Hemphill WBC NONE SEEN Normal NONE SEEN [facility] Comment on above: Performed By: #### U AMIC ####[facility] Asryftmwel0685 [place] [phone]. Lizandro Hemphill CBC AUTO DIFFon 07-29-2022 BASO # 0.1 103/ul Normal 0.0-0.1 [facility] Comment on above: Performed By: #### C BC ####[facility] Tnwuosewqn69[address] [place], [place] [address]Dr. Lizandro Hemphill Basophils/100 WBC (Bld) 0.8 % Normal 0.2-2.0 [facility] Comment on above: Performed By: #### C BC ####[facility] Swkcuponcb5[address] [place] [address]Dr. Lizandro Hemphill EO # 0.0 103/ul Normal 0.0-0.7 [facility] Comment on above: Performed By: #### C BC ####[facility] Flhygdnkji639867 [address] [place], [place] [address]Dr. Lizandro Hemphill Eosinophils/100 WBC (Bld) 0.5 % Critically low 0.9-7.0 [facility] Comment on above: Performed By: #### C BC ####[facility] Vpavdgurzq3899[address] [place], [place] [address]Dr. Lizandro Hemphill Erythrocyte distribution width (RBC) [Ratio] 19.2 % Critically high 11.0-15.0 [facility] Comment on above: Performed By: #### C BC ####[facility] Rkmjsflnvm627367 [address] [place], [place] [address]Dr. Lizandro Hemphill Hematocrit (Bld) [Volume fraction] 40.4 % Normal 36.0-48.0 [facility] Comment on above: Performed By: #### C BC ####[facility] Beioqjnqde564367 [address] [place], [place] [address]Dr. Lizandro Hemphill Hemoglobin (Bld) [Mass/Vol] 12.3 g/dL Normal 12.0-16.0 [facility] Comment on above: Performed By: #### C BC ####[facility] Ytglbtreid8[address] [place] [id number]. Lizandro Hemphill IG # 0.02 10e3/ul Normal 0.00-0.03 [facility] Comment on above: Performed By: #### C BC ####[facility] Zakafbnzem5415 [place] [id number]. Lizandro Hemphill IG % 0.2 % Normal 0.0-0.5 [facility] Comment on above: Performed By: #### C BC ####[facility] Wogflzmlwq8256 [place] [id number]. Lizandro Hemphill LYMPH # 1.3 103/ul Normal 1.2-3.8 [facility] Comment on above: Performed By: #### C BC ####[facility] Wswryfqfmb6303 [place] [address]Dr. Shanikaannie Hemphill Lymphocytes/100 WBC (Bld) 14.9 % Critically low 20.5-60.0 [facility] Comment on above: Performed By: #### C BC ####[facility] Pdqqjxnjkf9197 [place] [address]Dr. Lizandro Hemphill MANUAL DIFF REQ NO Normal [facility] Comment on above: Performed By: #### C BC ####[facility] Entnivlrzk6188 [place] [address]Dr. Lizandro Hemphill MCH (RBC) [Entitic mass] 28.1 pg Normal 26.7-34.0 [facility] Comment on above: Performed By: #### C BC ####[facility] Pjejryarss8108 [place] [address]Dr. Lizandro Hemphill MCHC (RBC) [Mass/Vol] 30.4 g/dL Normal 29.9-35.2 [facility] Comment on above: Performed By: #### C BC ####[facility] Kgfhzwvbrf7279 [place] [address]Dr. Lizandro Hemphill MCV (RBC) [Entitic vol] 92.2 fL Normal 81.0-99.0 [facility] Comment on above: Performed By: #### C BC ####[facility] Qqtuhjynhp5307 [place] [phone]. Lizandro Hemphill MONO # 0.7 103/ul Normal 0.3-0.8 [facility] Comment on above: Performed By: #### C BC ####[facility] Kieyqlgntc3815 [place] [phone]. Lizandro Hemphill Monocytes/100 WBC (Bld) 8.2 % Normal 1.7-12.0 [facility] Comment on above: Performed By: #### C BC ####[facility] Pcucsnggqt5237 [place] [phone]. Lizandro Hemphill NEUT # 6.6 103/ul Critically high 1.4-6.5 [facility] Comment on above: Performed By: #### C BC ####[facility] Aksuwekzkb4385 [place] [phone]. Lizandro Hemphill Neutrophils/100 WBC (Bld) 75.4 % Critically high 43.0-75.0 [facility] Comment on above: Performed By: #### C BC ####[facility] Fpkdgistxr4629 [place] [phone]. Lizandro Hemphill Platelet mean volume (Bld) [Entitic vol] 10.4 fL Normal 9.5-13.5 [facility] Comment on above: Performed By: #### C BC ####[facility] Cdjublpljt3250 [place] [phone]. Lizandro Hemphill PLT 316 103/ul Normal 150-450 [facility] Comment on above: Performed By: #### C BC ####[facility] Xbqwwjjmiv2862 [place] [phone]. Lizandro Hemphill RBC 4.38 106/ul Normal 4.20-5.40 [facility] Comment on above: Performed By: #### C BC ####[facility] Hriqsoazwp9080 [place] [phone]. Lizandro Hemphill WBC 8.8 103/ul Normal 4.0-11.0 [facility] Comment on above: Performed By: #### C BC ####[facility] Csumkqfbqc7357[address] [place], [place] [address]Dr. Lizandro Hemphill LACTATE/LACTIC ACIDon 2022 Lactate [Moles/Vol] 1.0 mmol/L Normal 0.4-2.0 [facility] Comment on above: Performed By: #### L ACT ####[facility] Garxfoyryx6038 [place] [address]Dr. Lizandro Hemphill PROF 14(COMP METB)on 023 Albumin [Mass/Vol] 3.6 g/dL Normal 3.4-5.0 [facility] Comment on above: Performed By: #### C MP ####[facility] Iwbanlyreo1547 [place] [address]Dr. Lizandro Hemphill Albumin/Globulin [Mass ratio] 0.9 {ratio} Normal [facility] Comment on above: Performed By: #### C MP ####[facility] Vfavnplpxa4787 [place] [address]Dr. Lizandro Hemphill ALP [Catalytic activity/Vol] 132 U/L Critically high 46-116 [facility] Comment on above: Performed By: #### C MP ####[facility] Dyteprtidy5669 [place] [address]Dr. Lizandro Hemphill ALT [Catalytic activity/Vol] 26 U/L Normal 14-59 [facility] Comment on above: Performed By: #### C MP ####[facility] Mkpexxclbr8743 [place] [address]Dr. Lizandro Hemphill Anion gap [Moles/Vol] 17.7 mmol/L Normal [facility] Comment on above: Performed By: #### C MP ####[facility] Rbnjefjwsc1933 [place] [address]Dr. Lizandro Hemphill AST [Catalytic activity/Vol] 36 U/L Normal 15-37 [facility] Comment on above: Performed By: #### C MP ####[facility] Uyokafitfj4230 [place] [address]Dr. Lizandro Hemphill Bilirubin [Mass/Vol] 0.4 mg/dL Normal 0.2-1.0 [facility] Comment on above: Performed By: #### C MP ####[facility] Gfwnbuqasp5638 [place] [phone]. Lizandro Hemphill Calcium [Mass/Vol] 9.2 mg/dL Normal 8.5-10.1 [facility] Comment on above: Performed By: #### C MP ####[facility] Pjrvmqddil5265 [place] [phone]. Lizandro Hemphill Chloride [Moles/Vol] 102 mmol/L Normal 98-107 [facility] Comment on above: Performed By: #### C MP ####[facility] Gfwgrtqkuk4880 [place] [address]Dr. Lizandro Hemphill CO2 [Moles/Vol] 20.1 mmol/L Critically low 21.0-32.0 [facility] Comment on above: Performed By: #### C MP ####[facility] Vtbslhqclz5016 [place] [address]Dr. Lizandro Hemphill Creatinine [Mass/Vol] 1.00 mg/dL Normal 0.55-1.02 [facility] Comment on above: Performed By: #### C MP ####[facility] Vinuhhzkne1832 [place] [address]Dr. Lizandro Hemphill EGFR-AF CYMRAES >60 Normal >=60 [facility] Comment on above: Performed By: #### C MP ####[facility] Plptlgppxg273567 [address] [place], [place] [address]Dr. Lizandro Hemphill EGFR-NON AF CYMRAES 57 mL/min/1.73m2 Critically low >=60 [facility] Comment on above: Performed By: #### C MP ####[facility] Dnfwpqucvy062367 [address] [place], [place] [address]Dr. Lizandro Hemphill Globulin (S) [Mass/Vol] 4.1 g/dL Normal [facility] Comment on above: Performed By: #### C MP ####[facility] Wixeihxzah0275 [place] [address]Dr. Lizandro Hemphill Glucose [Mass/Vol] 79 mg/dL Normal 74-106 [facility] Comment on above: Performed By: #### C MP ####[facility] Yluklizbzq648367 [address] [place], [place] [address]Dr. Lizandro Hemphill Potassium [Moles/Vol] 2.6 mmol/L Critically low 3.5-5.1 [facility] Comment on above: Performed By: #### C MP ####[facility] Toyxkorthk9626[address] [place], [place] [address]Dr. Lizandro Hemphill Protein [Mass/Vol] 7.7 g/dL Normal 6.4-8.2 [facility] Comment on above: Performed By: #### C MP ####[facility] Fdufgqvvah194[address] [place], [place] [address]Dr. Lizandro Hemphill Sodium [Moles/Vol] 126 mmol/L Critically low 136-145 [facility] Comment on above: Performed By: #### C MP ####[facility] Tsjnhscoxn239167 [address] [place], [place] [address]Dr. Lizandro Hemphill Urea nitrogen [Mass/Vol] 15.0 mg/dL Normal 7.0-18.0 [facility] Comment on above: Performed By: #### C MP ####[facility] Whivhgekyr2976[address] [place], [place] [address]Dr. Lizandro Hemphill Urea nitrogen/Creatinin e [Mass ratio] 15.0 mg/mg Normal [facility] Comment on above: Performed By: #### C MP ####[facility] Ivgkmrouui805367 [address] [place], [place] [address]Dr. Lizandro Hemphill PROTIMEon 07-29-2022 INR Coag (PPP) [Relative time] 0.99 {INR} Normal [facility] Comment on above: Performed By: #### P T, PTT ####[facility] Vnomippswc909567 [address] [place], [place] [address]Dr. Lizandro Hemphill INR GUIDELINES SEE BELOW Normal [facility] Comment on above: Result Comment: GUEVARA RED INR: 2.0 - 3.0 CONDITIONS NOT LISTED BELOW 2.5 - 3.5 FOR PROSTHETIC HEART VALVE REPLACEMENT 2.5 - 3.5 RECURRENT THROMBOSIS Performed By: #### P T, PTT ####[facility] Ecwjtnpdup6849[address] [place], [place] [address]Dr. Lizandro Hemphill PT Coag (PPP) [Time] 10.5 s Normal 9.0-11.6 [facility] Comment on above: Performed By: #### P T, PTT ####[facility] Gtnrlzjzos9014[address] [place], [place] [address]Dr. Lizandro Hemphill PTTon 07-29-2022 aPTT Coag (Bld) [Time] 29.1 s Normal 22.3-36.2 [facility] Comment on above: Performed By: #### P T, PTT ####[facility] Vmjhuyxhei1484[address] [place], [place] [address]Dr. Lizandro Hemphill XR KNEE LT 4V or >on 023 XR KNEE LT 4V or > Normal [facility] XR PELVIS 1_2 VIEWSon 2022 XR PELVIS 1_2 VIEWS Normal [facility] CBC AUTO DIFFon 06-28-2022 BASO # 0.0 103/ul Normal 0.0-0.1 [facility] Comment on above: Performed By: #### C BC ####[facility] Cvzqukguxo68[address] [place], [place] [address]Dr. Lizandro Hemphill Basophils/100 WBC (Bld) 0.2 % Normal 0.2-2.0 [facility] Comment on above: Performed By: #### C BC ####[facility] Kejnackuya324[address] [place], [place] [address]Dr. Lizandro Hemphill EO # 0.0 103/ul Normal 0.0-0.7 [facility] Comment on above: Performed By: #### C BC ####[facility] Anodcegtor654667 [address] [place], [place] [address]Dr. Lizandro Hemphill Eosinophils/100 WBC (Bld) 0.0 % Critically low 0.9-7.0 [facility] Comment on above: Performed By: #### C BC ####[facility] Syclgyugqq517167 [address] [place], [place] [address]Dr. Lizandro Hemphill Erythrocyte distribution width (RBC) [Ratio] 19.2 % Critically high 11.0-15.0 [facility] Comment on above: Performed By: #### C BC ####[facility] Owhqvfmyfr1852 [place] [address]Dr. Lizandro Hemphill Hematocrit (Bld) [Volume fraction] 34.1 % Critically low 36.0-48.0 [facility] Comment on above: Performed By: #### C BC ####[facility] Iboxmxopkk5482 [place] [address]Dr. Lizandro Hemphill Hemoglobin (Bld) [Mass/Vol] 10.7 g/dL Critically low 12.0-16.0 [facility] Comment on above: Performed By: #### C BC ####[facility] Rqirtwitse7928 [place] [address]Dr. Lizandro Hemphill IG # 0.02 10e3/ul Normal 0.00-0.03 [facility] Comment on above: Performed By: #### C BC ####[facility] Zffijbxpyy644167 [address] [place], [place] [address]Dr. Lizandro Hemphill IG % 0.3 % Normal 0.0-0.5 [facility] Comment on above: Performed By: #### C BC ####[facility] Kbucmjidqu[address] [place], [place] [address]Dr. Lizandro Hemphill LYMPH # 0.4 103/ul Critically low 1.2-3.8 [facility] Comment on above: Performed By: #### C BC ####[facility] Gqwdxejvlg1912[address] [place], [place] [address]Dr. Lizandro Hemphill Lymphocytes/100 WBC (Bld) 6.5 % Critically low 20.5-60.0 [facility] Comment on above: Performed By: #### C BC ####[facility] Mjpndnmtyo8570[address] [place], [place] [address]Dr. Lizandro Hemphill MANUAL DIFF REQ YES Normal [facility] Comment on above: Result Comment: Prev iously reported as: NO On 06/28/2022 05:01 By KD3 Performed By: #### C BC ####[facility] Ostuxjlpso0200[address] [place], [place] [address]Dr. Lizandro Hemphill MCH (RBC) [Entitic mass] 27.2 pg Normal 26.7-34.0 [facility] Comment on above: Performed By: #### C BC ####[facility] Hmrjamwqkl4488 [place] [phone]. Lizandro Joby MCHC (RBC) [Mass/Vol] 31.4 g/dL Normal 29.9-35.2 [facility] Comment on above: Performed By: #### C BC ####[facility] Myoxwlidmc4181 [place] [phone] Hemphill MCV (RBC) [Entitic vol] 86.8 fL Normal 81.0-99.0 [facility] Comment on above: Performed By: #### C BC ####[facility] Qlbfbytwbb0859 [place] [address]DrCiro Hemphill MONO # 0.0 103/ul Critically low 0.3-0.8 [facility] Comment on above: Performed By: #### C BC ####[facility] Mxvxppjjek9345[address] [place], [place] [address]DrCiro Hemphill Monocytes/100 WBC (Bld) 0.5 % Critically low 1.7-12.0 [facility] Comment on above: Performed By: #### C BC ####[facility] Hxbdlpirce4930[address] [place], [place] [address]Dr. Lizandro Hemphill NEUT # 5.6 103/ul Normal 1.4-6.5 [facility] Comment on above: Performed By: #### C BC ####[facility] Iyfzgirftk5394[address] [place], [place] [address]DrCiro Hemphill Neutrophils/100 WBC (Bld) 92.5 % Critically high 43.0-75.0 [facility] Comment on above: Performed By: #### C BC ####[facility] Pjyhetbiuo10[address] [place], [place] [address]DrCiro Hemphill Platelet mean volume (Bld) [Entitic vol] 10.5 fL Normal 9.5-13.5 [facility] Comment on above: Performed By: #### C BC ####[facility] Crsdijulbi480[address] [place], [place] [address]Dr. Lizandro Hemphill PLT 213 103/ul Normal 150-450 [facility] Comment on above: Performed By: #### C BC ####[facility] Ibicufkuhw5811 [place] [address]Dr. Lizandro Hemphill RBC 3.93 106/ul Critically low 4.20-5.40 [facility] Comment on above: Performed By: #### C BC ####[facility] Pcqusbcvkb4264 [place] [address]Dr. Lizandro Hemphill WBC 6.0 103/ul Normal 4.0-11.0 [facility] Comment on above: Performed By: #### C BC ####[facility] Gcsloafxjh1425[address] [place], [place] [address]Dr. Lizandro Hemphill CBC W MANUAL DIFFon 06-29-19 23 ATYPICAL LYMPH # Normal [facility] Comment on above: Performed By: #### C BCMAN ####[facility] Osthdvqdvo[address] [place], [place] [address]Dr. Lizandro Hemphill ATYPICAL LYMPH % Normal [facility] Comment on above: Performed By: #### C BCMAN ####[facility] Tukdmcsawv[address] [place], [place] [address]Dr. Lizandro Hemphill BAND # 0.0 103/ul Normal 0.0-0.3 [facility] Comment on above: Performed By: #### C BCMAN ####[facility] Chuqcvonno8[address] [place], [place] [address]Dr. Lizandro Hemphill BAND % 0 % Normal 0-5 [facility] Comment on above: Performed By: #### C BCMAN ####[facility] Kjvirdxiym[address] [place] [address]Dr. Lizandro Hemphill BASOM # 0.00 103/ul Normal 0.00-0.10 [facility] Comment on above: Performed By: #### C BCMAN ####[facility] Rpcwogsszh[address] [place], [place] [address]Dr. Lizandro Hemphill BASOM % 0.0 % Critically low 0.2-2.0 The [facility] Comment on above: Performed By: #### C BCMAN ####[facility] Vqarptpnfu3830 [place] [id number]. Lizandro Hemphill BLAST # Normal [facility] Comment on above: Performed By: #### C BCMARÍA ####[facility] Mpszvftwfr5911 [place] [phone]. Lizandro Hemphill BLAST % Normal [facility] Comment on above: Performed By: #### C BCMARÍA ####[facility] Ouftmvwcdc35[address] [place] [address]Dr. Lizandro Hemphill CORRECTED WBC Normal 4.0-11.0 [facility] Comment on above: Performed By: #### C BCMARÍA ####[facility] Ifkenrmcpx7680 [place] [address]Dr. Lizandro Hemphill EOS # 0.00 103/ul Normal 0.00-0.70 [facility] Comment on above: Performed By: #### C DERRELL ####[facility] Aebmnwmzof20[address] [place], [place] [address]Dr. Lizandro Hemphill EOS% 0.0 % Critically low 0.9-7.0 [facility] Comment on above: Performed By: #### C BCMARÍA ####[facility] Fqczkatuut7[address] [place], [place] [address]Dr. Lizandro Hemphill HCT 34.1 % Critically low 36.0-48.0 [facility] Comment on above: Performed By: #### C BCMARÍA ####[facility] Wgzjzjsaev3[address] [place] [address]Dr. Lizandro Hemphill HGB 10.7 g/dl Critically low 12.0-16.0 [facility] Comment on above: Performed By: #### C BCMARÍA ####[facility] Czbqegbmyw8936 [place] [address]Dr. Lizandro Hemphill LYMPHM # 0.54 103/ul Critically low 1.20-3.80 The [facility] Comment on above: Performed By: #### C BCMAN ####[facility] Twjczeuffh5578 [place] [id number]. Lizandro Hemphill LYMPHM% 9.0 % Critically low 20.5-60.0 [facility] Comment on above: Performed By: #### C DERRELL ####[facility] Eemvxkwvxa0143 [place] [phone]. Lizandro Hemphill MCH 27.2 pg Normal 26.7-34.0 [facility] Comment on above: Performed By: #### C DERRELL ####[facility] Bqiiyiexpl3372 [place] [phone]. Lizandro Hemphill MCHC 31.4 g/dl Normal 29.9-35.2 [facility] Comment on above: Performed By: #### C DERRELL ####[facility] Foxsxobebn7875 [place] [phone]. Lizandro Hemphill MCV 86.8 fL Normal 81.0-99.0 [facility] Comment on above: Performed By: #### C DERRELL ####[facility] Pjtrfnzhcu0892 [place] [address]Dr. Lizandro Hemphill METAMYELOCYTE # Normal The [facility] Comment on above: Performed By: #### C DERRELL ####[facility] Iiefcmcyum8852 [place] [phone]. Lizandro Hemphill METAMYELOCYTE % Normal [facility] Comment on above: Performed By: #### C DERRELL ####[facility] Mviinyulpb3832[address] [place], [place] [address]Dr. Lizandro Hemphill MONOM# 0.12 103/ul Critically low 0.30-0.80 The [facility] Comment on above: Performed By: #### C DERRELL ####[facility] P[address]qrqrlwu[address] [place], [place] [address]Dr. Lizandro Hemphill MONOM% 2.0 % Normal 1.7-12.0 [facility] Comment on above: Performed By: #### C DERRELL ####[facility] Ehmrxerboh44[address] [place], [place] [address]Dr. Lizandro Hemphill MPV 10.5 fL Normal 9.5-13.5 [facility] Comment on above: Performed By: #### C DERRELL ####[facility] Jiizqtuuhx8598[address] [place], [place] [address]Dr. Lizandro Hemphill MYELOCYTE # Normal [facility] Comment on above: Performed By: #### C DERRELL ####[facility] Ippcriovys1666 [place] [phone]. Lizandro Hemphill MYELOCYTE % Normal [facility] Comment on above: Performed By: #### C DERRELL ####[facility] Vegapkehnj6324 [place], [place] [address]Lk. Lizandro Hemphill NRBC Normal [facility] Comment on above: Performed By: #### C DERRELL ####[facility] Whrjyypaed3588 [place] [phone]. Lizandro Hemphill PLT 213 103/ul Normal 150-450 [facility] Comment on above: Performed By: #### C DERRELL ####[facility] Gfjeucejyb8377 [place] [phone]. Lizandro Hemphill RBC 3.93 106/ul Critically low 4.20-5.40 [facility] Comment on above: Performed By: #### C DERRELL ####[facility] Fzsjjlnjvu1952 [place] [phone]. Lizandro Hemphill RDW 19.2 % Critically high 11.0-15.0 The [facility] Comment on above: Performed By: #### C DERRELL ####[facility] Aornrwhtcd4138 [place] [phone]. Lizandro Hemphill SEG # 5.34 103/ul Normal 1.40-6.50 [facility] Comment on above: Performed By: #### C DERRELL ####[facility] Iyyssfjqex9942 [place] [phone]. Lizandro Hemphill SEG % 89.0 % Critically high 43.0-75.0 The [facility] Comment on above: Performed By: #### C DERRELL ####[facility] Jpbtokquew8317 [place] [phone]. Lizandro Hemphill WBC 6.0 103/ul Normal 4.0-11.0 [facility] Comment on above: Performed By: #### C DERRELL ####[facility] Relxmjygkb3412 [place] [phone]. Lizandro Hemphill CRPon 06-28-2022 CRP 0.1 mg/dL Normal <=1.0 [facility] Comment on above: Performed By: #### C RP, CMP ####[facility] Sthwseninb96[address] [place], [place] [address]Dr. Lizandro Hemphill PROF 14(COMP METB)on 023 Albumin [Mass/Vol] 2.8 g/dL Critically low 3.4-5.0 Th e [facility] Comment on above: Performed By: #### C RP, CMP ####[facility] Cdrqdncypb0609 [place] [address]Dr. Lizandro Hemphill Albumin/Globulin [Mass ratio] 0.8 {ratio} Normal [facility] Comment on above: Performed By: #### C RP, CMP ####[facility] Fmbeqtizwa1909[address] [place], [place] [address]Dr. Lizandro Hemphill ALP [Catalytic activity/Vol] 129 U/L Critically high 46-116 [facility] Comment on above: Performed By: #### C RP, CMP ####[facility] Oeednkcmei5076 [place] [address]Dr. Lizandro Hemphill ALT [Catalytic activity/Vol] 47 U/L Normal 14-59 [facility] Comment on above: Performed By: #### C RP, CMP ####[facility] Wiuignkbsq45[address] [place], [place] [address]Dr. Lizandro Hemphill Anion gap [Moles/Vol] 11.7 mmol/L Normal [facility] Comment on above: Performed By: #### C RP, CMP ####[facility] Cpnwezhlwb3433[address] [place], [place] [address]Dr. Lizandro Hemphill AST [Catalytic activity/Vol] 13 U/L Critically low 15-37 [facility] Comment on above: Performed By: #### C RP, CMP ####[facility] Aobvnshoro498967 [address] [place], [place] [address]Dr. Lizandro Hemphill Bilirubin [Mass/Vol] 0.1 mg/dL Critically low 0.2-1.0 [facility] Comment on above: Performed By: #### C RP, CMP ####[facility] Mlawbceaqh2719 [place] [phone]. Lizandro Hemphill Calcium [Mass/Vol] 8.3 mg/dL Critically low 8.5-10.1 [facility] Comment on above: Performed By: #### C RP, CMP ####[facility] Mjznrzgscc6825 [place] [phone]. Lizandro Hemphill Chloride [Moles/Vol] 106 mmol/L Normal 98-107 [facility] Comment on above: Performed By: #### C RP, CMP ####[facility] Ndhiznhcwm3384 [place] [address]Dr. Lizandro Hemphill CO2 [Moles/Vol] 26.0 mmol/L Normal 21.0-32.0 [facility] Comment on above: Performed By: #### C RP, CMP ####[facility] Dlkidbgsfu11[address] [place], [place] [address]Dr. Lizandro Hemphill Creatinine [Mass/Vol] 0.80 mg/dL Normal 0.55-1.02 [facility] Comment on above: Performed By: #### C RP, CMP ####[facility] Xwbhgzljns68[address] [place], [place] [address]Dr. Lizandro Hemphill EGFR-AF CYMRAES >60 Normal >=60 [facility] Comment on above: Performed By: #### C RP, CMP ####[facility] Pvooubqxrg7[address] [place], [place] [address]Dr. Lizandro Hemphill EGFR-NON AF CYMRAES >60 Normal >=60 [facility] Comment on above: Performed By: #### C RP, CMP ####[facility] Saughpxmns[address] [place], [place] [address]Dr. Lizandro Hemphill Globulin (S) [Mass/Vol] 3.4 g/dL Normal [facility] Comment on above: Performed By: #### C RP, CMP ####[facility] Vlrdwpvdec3054 [place] [address]Dr. Lizandro Hemphill Glucose [Mass/Vol] 164 mg/dL Critically high 74-106 [facility] Comment on above: Performed By: #### C RP, CMP ####[facility] Iyxvocvzbu8352 [place] [address]Dr. Lizandro Hemphill Potassium [Moles/Vol] 3.5 mmol/L Normal 3.5-5.1 [facility] Comment on above: Performed By: #### C RP, CMP ####[facility] Ssevvdrtfq4886 [place] [address]Dr. Lizandro Hemphill Protein [Mass/Vol] 6.2 g/dL Critically low 6.4-8.2 [facility] Comment on above: Performed By: #### C RP, CMP ####[facility] Zymfdxhnaq7129 [place] [address]Dr. Lizandro Hemphill Sodium [Moles/Vol] 140 mmol/L Normal 136-145 [facility] Comment on above: Performed By: #### C RP, CMP ####[facility] Xmydlcjgsk124[address] [place], [place] [address]Dr. Lizandro Hemphill Urea nitrogen [Mass/Vol] 13.0 mg/dL Normal 7.0-18.0 [facility] Comment on above: Performed By: #### C RP, CMP ####[facility] Tolixtmhek037[address] [place], [place] [address]Dr. iLzandro Hemphill Urea nitrogen/Creatinin e [Mass ratio] 16.2 mg/mg Normal [facility] Comment on above: Performed By: #### C RP, CMP ####[facility] Kahhnugbki7[address] [place], [place] [address]Dr. Lizandro Hemphill PROTIMEon 06-28-2022 INR Coag (PPP) [Relative time] 1.39 {INR} Normal [facility] Comment on above: Performed By: #### P T ####[facility] Ylxmtgajdb8277[address] [place], [place] [address]Dr. Lizandro Hemphill INR GUIDELINES SEE BELOW Normal [facility] Comment on above: Result Comment: GUEVARA RED INR: 2.0 - 3.0 CONDITIONS NOT LISTED BELOW 2.5 - 3.5 FOR PROSTHETIC HEART VALVE REPLACEMENT 2.5 - 3.5 RECURRENT THROMBOSIS Performed By: #### P T ####[facility] Blcoetpeaw[address] [place], [place] [address]Dr. Lizandro Hemphill PT Coag (PPP) [Time] 14.5 s Critically high 9.0-11.6 [facility] Comment on above: Performed By: #### P T ####[facility] Ofvzjqxsnf2146[address] [place], [place] [address]Dr. Lizandro Hemphill CBC AUTO DIFFon 06-27-2022 BASO # 0.1 103/ul Normal 0.0-0.1 [facility] Comment on above: Performed By: #### C BC ####[facility] Wasjiziztx[address] [place], [place] [address]Dr. Lizandro Hemphill Basophils/100 WBC (Bld) 1.1 % Normal 0.2-2.0 [facility] Comment on above: Performed By: #### C BC ####[facility] Gsvepoufyc[address] [place], [place] [address]Dr. Lizandro Hemphill EO # 0.1 103/ul Normal 0.0-0.7 [facility] Comment on above: Performed By: #### C BC ####[facility] Umfqfpvfrq55[address] [place], [place] [address]Dr. Lizandro Hemphill Eosinophils/100 WBC (Bld) 1.3 % Normal 0.9-7.0 [facility] Comment on above: Performed By: #### C BC ####[facility] [address]ziivjuky[address] [place], [place] [address]Dr. Lizandro Hemphill Erythrocyte distribution width (RBC) [Ratio] 19.8 % Critically high 11.0-15.0 [facility] Comment on above: Performed By: #### C BC ####[facility] Sfxctxwnkm6[address] [place], [place] [address]Dr. Lizandro Hemphill Hematocrit (Bld) [Volume fraction] 34.4 % Critically low 36.0-48.0 [facility] Comment on above: Performed By: #### C BC ####[facility] Znlezeyynd9[address] [place], [place] [address]Dr. Lizandro Hemphill Hemoglobin (Bld) [Mass/Vol] 11.1 g/dL Critically low 12.0-16.0 [facility] Comment on above: Performed By: #### C BC ####[facility] Amubfnrzdc9369 [place] [phone]. Lizandro Hemphill IG # 0.01 10e3/ul Normal 0.00-0.03 [facility] Comment on above: Performed By: #### C BC ####[facility] Qtznfgxlnr6542 [place] [phone]. Lizandro Hemphill IG % 0.2 % Normal 0.0-0.5 [facility] Comment on above: Performed By: #### C BC ####[facility] Xasfhlqgcu8625 [place] [address]Dr. Lizandro Hemphill LYMPH # 1.3 103/ul Normal 1.2-3.8 [facility] Comment on above: Performed By: #### C BC ####[facility] Cgqfmwyjyg9821 [place] [address]Dr. Shanikaannie Hemphill Lymphocytes/100 WBC (Bld) 24.6 % Normal 20.5-60.0 [facility] Comment on above: Performed By: #### C BC ####[facility] Huhxxhbzqy7224 [place] [address]Dr. Lizandro Hemphill MANUAL DIFF REQ NO Normal [facility] Comment on above: Performed By: #### C BC ####[facility] Eiizecfhwk0637 [place] [phone]. Lizandro Hemphill MCH (RBC) [Entitic mass] 27.4 pg Normal 26.7-34.0 [facility] Comment on above: Performed By: #### C BC ####[facility] Ieoblwvzgx[address] [place], [place] [address]Dr. Lizandro Hemphill MCHC (RBC) [Mass/Vol] 32.3 g/dL Normal 29.9-35.2 [facility] Comment on above: Performed By: #### C BC ####[facility] Xhlehbdcvc5228 [place] [phone]. Lizandro Hemphill MCV (RBC) [Entitic vol] 84.9 fL Normal 81.0-99.0 [facility] Comment on above: Performed By: #### C BC ####[facility] Gtcomuhlxj7932 [place] [phone]. Lizandro Hemphill MONO # 0.8 103/ul Normal 0.3-0.8 [facility] Comment on above: Performed By: #### C BC ####[facility] Qklncmrbha2286 [place] [phone]. Lizandro Hemphill Monocytes/100 WBC (Bld) 13.9 % Critically high 1.7-12.0 [facility] Comment on above: Performed By: #### C BC ####[facility] Uaetyxtoji1467 [place] [phone]. Lizandro Hemphill NEUT # 3.2 103/ul Normal 1.4-6.5 [facility] Comment on above: Performed By: #### C BC ####[facility] Mzvxcmyvkd[address] [place], [place] [address]Dr. Lizandro Hemphill Neutrophils/100 WBC (Bld) 58.9 % Normal 43.0-75.0 [facility] Comment on above: Performed By: #### C BC ####[facility] Ixyyasbkkh6943 [place] [phone]. Lizandro Hemphill Platelet mean volume (Bld) [Entitic vol] 10.6 fL Normal 9.5-13.5 [facility] Comment on above: Performed By: #### C BC ####[facility] Flohkkbdqd0714 [place] [phone]. Lizadnro Hemphill PLT 228 103/ul Normal 150-450 [facility] Comment on above: Performed By: #### C BC ####[facility] Rsjkdtaddf[address] [place], [place] [address]Dr. Lizandro Hemphill RBC 4.05 106/ul Critically low 4.20-5.40 [facility] Comment on above: Performed By: #### C BC ####[facility] Vwenflhfva2131 [place] [phone]. Lizandro Hemphill WBC 5.4 103/ul Normal 4.0-11.0 [facility] Comment on above: Performed By: #### C BC ####[facility] Lduvwccvtj2885 [place] [address]Dr. Lizandro Hemphill CRPon 06-27-2022 CRP [Mass/Vol] mg/L Normal <=1.0 [facility] Comment on above: Performed By: #### C RP, CMP ####[facility] Kvrsejfpck6526 [place] [address]Dr. Lizandro Hemphill PROF 14(COMP METB)on 023 Albumin [Mass/Vol] 2.9 g/dL Critically low 3.4-5.0 [facility] Comment on above: Performed By: #### C RP, CMP ####[facility] Mzserjcuje8475 [place] [address]Dr. Lizandro Hemphill Albumin/Globulin [Mass ratio] 0.9 {ratio} Normal [facility] Comment on above: Performed By: #### C RP, CMP ####[facility] Ekrlenyevf[address] [place], [place] [address]Dr. Lizandro Hemphill ALP [Catalytic activity/Vol] 144 U/L Critically high 46-116 [facility] Comment on above: Performed By: #### C RP, CMP ####[facility] Imvwgivibx6221 [place] [address]Dr. Lizandro Hemphill ALT [Catalytic activity/Vol] 52 U/L Normal 14-59 [facility] Comment on above: Performed By: #### C RP, CMP ####[facility] Rwyzesethf5769 [place] [address]Dr. Lizandro Hemphill Anion gap [Moles/Vol] 11.5 mmol/L Normal [facility] Comment on above: Performed By: #### C RP, CMP ####[facility] Josxsexvey5103 [place] [address]Dr. Lizandro Hemphill AST [Catalytic activity/Vol] 26 U/L Normal 15-37 [facility] Comment on above: Performed By: #### C RP, CMP ####[facility] Rxivikbfsg2417[address] [place], [place] [address]Dr. Lizandro Hemphill Bilirubin [Mass/Vol] 0.3 mg/dL Normal 0.2-1.0 [facility] Comment on above: Performed By: #### C RP, CMP ####[facility] Facexzfdki9849 [place] [address]Dr. Lizandro Hemphill Calcium [Mass/Vol] 8.4 mg/dL Critically low 8.5-10.1 Th [facility] Comment on above: Performed By: #### C RP, CMP ####[facility] Udrkdkohzg8587 [place] [address]Dr. Lizandro Hemphill Chloride [Moles/Vol] 106 mmol/L Normal 98-107 [facility] Comment on above: Performed By: #### C RP, CMP ####[facility] Dgsspwvoht12[address] [place], [place] [address]Dr. Lizandro Hemphill CO2 [Moles/Vol] 28.2 mmol/L Normal 21.0-32.0 [facility] Comment on above: Performed By: #### C RP, CMP ####[facility] Sstgcgkktt6[address] [place], [place] [address]Dr. Lizandro Hemphill Creatinine [Mass/Vol] 0.72 mg/dL Normal 0.55-1.02 [facility] Comment on above: Performed By: #### C RP, CMP ####[facility] Ubalgpxuyi8[address] [place], [place] [address]Dr. Lizandro Hemphill EGFR-AF CYMRAES >60 Normal >=60 [facility] Comment on above: Performed By: #### C RP, CMP ####[facility] Tbsxzmumpr6498 [place] [address]Dr. Lizandro Hemphill EGFR-NON AF CYMRAES >60 Normal >=60 [facility] Comment on above: Performed By: #### C RP, CMP ####[facility] Wvrvbletdf74[address] [place], [place] [address]Dr. Lizandro Hemphill Globulin (S) [Mass/Vol] 3.3 g/dL Normal [facility] Comment on above: Performed By: #### C RP, CMP ####[facility] Bytrgahnsn2471 [place] [address]Dr. Lizandro Hemphill Glucose [Mass/Vol] 89 mg/dL Normal 74-106 [facility] Comment on above: Performed By: #### C RP, CMP ####[facility] Rqhrrxrcks33[address] [place], [place] [address]Dr. Lizandro Hemphill Potassium [Moles/Vol] 3.7 mmol/L Normal 3.5-5.1 [facility] Comment on above: Performed By: #### C RP, CMP ####[facility] Itoygncppw05[address] [place], [place] [address]Dr. Lizandro Hemphill Protein [Mass/Vol] 6.2 g/dL Critically low 6.4-8.2 Th [facility] Comment on above: Performed By: #### C RP, CMP ####[facility] Uklkwhbhmi39[address] [place], [place] [address]Dr. Lizandro Hemphill Sodium [Moles/Vol] 142 mmol/L Normal 136-145 [facility] Comment on above: Performed By: #### C RP, CMP ####[facility] Gkpxwblzyz3[address] [place], [place] [address]Dr. Lizandro Hemphill Urea nitrogen [Mass/Vol] 13.0 mg/dL Normal 7.0-18.0 [facility] Comment on above: Performed By: #### C RP, CMP ####[facility] Ihkpyghlyx488[address] [place], [place] [address]Dr. Lizandro Hemphill Urea nitrogen/Creatinin e [Mass ratio] 18.1 mg/mg Normal [facility] Comment on above: Performed By: #### C RP, CMP ####[facility] Qalxrpydfg01[address] [place], [place] [address]Dr. Lizandro Hemphill PROTIMEon 06-27-2022 INR Coag (PPP) [Relative time] 1.20 {INR} Normal [facility] Comment on above: Performed By: #### P T ####[facility] Ffriacpjej[address] [place], [place] [address]Dr. Lizandro Hemphill INR GUIDELINES SEE BELOW Normal [facility] Comment on above: Result Comment: GUEVARA RED INR: 2.0 - 3.0 CONDITIONS NOT LISTED BELOW 2.5 - 3.5 FOR PROSTHETIC HEART VALVE REPLACEMENT 2.5 - 3.5 RECURRENT THROMBOSIS Performed By: #### P T ####[facility] Lxusijmqmt2905 [place] [address]Dr. Lizandro Hemphill PT Coag (PPP) [Time] 12.6 s Critically high 9.0-11.6 [facility] Comment on above: Performed By: #### P T ####[facility] Cwunydplga[address] [place], [place] [address]Dr. Lizandro Hemphill AMYLASEon 06-26-2022 Amylase [Catalytic activity/Vol] 73 U/L Normal 25-115 [facility] Comment on above: Performed By: #### C MP, ALICIA, LIPA ####[facility] Zjtswgfawj[address] [place], [place] [address]Dr. Lizandro Hemphlil CBC AUTO DIFFon 06-26-2022 BASO # 0.1 103/ul Normal 0.0-0.1 [facility] Comment on above: Performed By: #### C BC ####[facility] Npppyecwts[address] [place], [place] [address]Dr. Lizandro Hemphill Basophils/100 WBC (Bld) 0.9 % Normal 0.2-2.0 [facility] Comment on above: Performed By: #### C BC ####[facility] Gdzekoothk97[address] [place], [place] [address]Dr. Lizandro Hemphill EO # 0.0 103/ul Normal 0.0-0.7 [facility] Comment on above: Performed By: #### C BC ####[facility] Zprxbfefio12[address] [place], [place] [address]Dr. Lizandro Hemphill Eosinophils/100 WBC (Bld) 0.1 % Critically low 0.9-7.0 [facility] Comment on above: Performed By: #### C BC ####[facility] Cqtxbrxcgl83[address] [place], [place] [address]Dr. Lizandro Hemphill Erythrocyte distribution width (RBC) [Ratio] 19.8 % Critically high 11.0-15.0 [facility] Comment on above: Performed By: #### C BC ####[facility] Zshisogcse4[address] [place], [place] [address]Dr. Lizandro Hemphill Hematocrit (Bld) [Volume fraction] 39.1 % Normal 36.0-48.0 [facility] Comment on above: Performed By: #### C BC ####[facility] Hnagtdmnkw8[address] [place] [address]DrCiro Hemphill Hemoglobin (Bld) [Mass/Vol] 12.6 g/dL Normal 12.0-16.0 [facility] Comment on above: Performed By: #### C BC ####[facility] Ybqmphrygm2496 [place] [address]DrCiro Hemphill IG # 0.04 10e3/ul Critically high 0.00-0.03 [facility] Comment on above: Performed By: #### C BC ####[facility] Gyfjmycnru0557 [place] [address]DrCiro Hemphill IG % 0.5 % Normal 0.0-0.5 [facility] Comment on above: Performed By: #### C BC ####[facility] Vkhkorgyxy3433[address] [place], [place] [address]DrCiro Hemphill LYMPH # 1.0 103/ul Critically low 1.2-3.8 [facility] Comment on above: Performed By: #### C BC ####[facility] Ktrcnjpebh4689 [place] [address]DrCiro Hemphill Lymphocytes/100 WBC (Bld) 12.9 % Critically low 20.5-60.0 [facility] Comment on above: Performed By: #### C BC ####[facility] Grylqcuprp9212 [place] [address]DrCiro Hemphill MANUAL DIFF REQ NO Normal [facility] Comment on above: Performed By: #### C BC ####[facility] Gthzkfyaok4206 [place] [address]DrCiro Hemphill MCH (RBC) [Entitic mass] 27.2 pg Normal 26.7-34.0 [facility] Comment on above: Performed By: #### C BC ####[facility] Cpndxjzqxb3870 [place] [address]DrCiro Hemphill MCHC (RBC) [Mass/Vol] 32.2 g/dL Normal 29.9-35.2 [facility] Comment on above: Performed By: #### C BC ####[facility] Vxqkugqrky8942 [place] [address]DrCiro Hemphill MCV (RBC) [Entitic vol] 84.3 fL Normal 81.0-99.0 [facility] Comment on above: Performed By: #### C BC ####[facility] Jjnxhugpcm0206 [place] [address]DrCiro Hemphill MONO # 0.8 103/ul Normal 0.3-0.8 [facility] Comment on above: Performed By: #### C BC ####[facility] Pzkejjjctf7238 [place] [address]DrCiro Hemphill Monocytes/100 WBC (Bld) 10.2 % Normal 1.7-12.0 [facility] Comment on above: Performed By: #### C BC ####[facility] Ltchaduigh9677[address] [place], [place] [address]DrCiro Hemphill NEUT # 5.9 103/ul Normal 1.4-6.5 [facility] Comment on above: Performed By: #### C BC ####[facility] Bdyjzabgqg2586[address] [place], [place] [address]DrCiro Hemphill Neutrophils/100 WBC (Bld) 75.4 % Critically high 43.0-75.0 [facility] Comment on above: Performed By: #### C BC ####[facility] Qqnefojsrr328367 [address] [place], [place] [address]DrCiro Hemphill Platelet mean volume (Bld) [Entitic vol] 10.2 fL Normal 9.5-13.5 [facility] Comment on above: Performed By: #### C BC ####[facility] Yrtnncxzdu795067 [address] [place], [place] [address]DrCiro Hemphill PLT 253 103/ul Normal 150-450 [facility] Comment on above: Performed By: #### C BC ####[facility] Vvzymatssz[address] [place], [place] [address]DrCiro Hemphill RBC 4.64 106/ul Normal 4.20-5.40 [facility] Comment on above: Performed By: #### C BC ####[facility] Syuubeopdx0688 [place], [place] [address]Pj. Lizandro Hemphill WBC 7.8 103/ul Normal 4.0-11.0 [facility] Comment on above: Performed By: #### C BC ####[facility] Lnfnetiyke2132 [place], [place] [address]Fe. Lizandro Hemphill CT ABD/PELVIS WO CONon 06-26 CT ABD/PELVIS WO CON Normal [facility] Covid-19 PCR (CVDTBH)on SARS-CoV-2 (COVID-19) RNA VERITO+probe Ql (Unsp spec) Not detected Normal NOT DETECTED [facility] Comment on above: Result Comment: When [...] for this test is supported by the Editor In Chief of Health and Human Service's declaration that [...] be used). Performed By: #### C VDTBH ####[facility] Arjzkpwpan3826 [place], [place] [address]Ca. Lizandro Hemphill ER URINE PROFILEon 3 Bilirubin Ql (U) Negative Normal NEGATIVE [facility] Comment on above: Performed By: #### E RUR ####[facility] Gweombhysi7369 [place], [place] [address]Vx. Lizandro Hemphill Clarity (U) CLEAR Normal CLEAR [facility] Comment on above: Performed By: #### E RUR ####[facility] Mobexjcsku040267 [address] [place], [place] [address]Dr. Shanikaannie Hemphill Color (U) LT. YELLOW Normal YELLOW [facility] Comment on above: Performed By: #### E RUR ####[facility] Mwvymelekq9220[address] [place], [place] [address]Dr. Lizandro Hemphill ERUAHD A micrscopic examina tion will be performed if indicated. Normal [facility] Comment on above: Performed By: #### E RUR ####[facility] Tgylwreisn079067 [address] [place], [place] [address]Dr. Shanikaannie Joby Glucose Ql (U) Negative Normal NEGATIVE [facility] Comment on above: Performed By: #### E RUR ####[facility] Evilfmysll348067 [address] [place], [place] [address]Dr. Lizandro Hemphill Hemoglobin Ql (U) Negative Normal NEGATIVE [facility] Comment on above: Performed By: #### E RUR ####[facility] Qricxiqsfk251667 [address] [place], [place] [address]Dr. Lizandro Hemphill Ketones Ql (U) Negative Normal NEGATIVE [facility] Comment on above: Performed By: #### E RUR ####[facility] Sqwxqlznoy286267 [address] [place], [place] [address]Dr. Lizandro Hemphill LEUKOCYTES Negative Normal NEGATIVE [facility] Comment on above: Performed By: #### E RUR ####[facility] Hkleuawxbl174767 [address] [place], [place] [address]Dr. Lizandro Hemphill Nitrite Ql (U) Negative Normal NEGATIVE [facility] Comment on above: Performed By: #### E RUR ####[facility] Epqpiikjgn870667 [address] [place], [place] [address]Dr. Lizandro Hemphill pH (U) 7.5 [pH] Normal 5-9 [facility] Comment on above: Performed By: #### E RUR ####[facility] Qhnexabsdu126967 [address] [place], [place] [address]Dr. Lizandro Hemphill SPEC GRAVITY 1.010 Normal 1.005-<=1.025 [facility] Comment on above: Performed By: #### E RUR ####[facility] Pkjbzksynw2617 [place] [address]Dr. Lizandro Hemphill UA PROTEIN Negative Normal NEGATIVE/ TRACE [facility] Comment on above: Performed By: #### E RUR ####[facility] Ldvgggmyxf0138 [place] [address]Dr. Lizandro Hemphill UR MICRO IND NOT INDICATED Normal [facility] Comment on above: Performed By: #### E RUR ####[facility] Ucukjrncbf7187 [place] [address]Dr. Lizandro Hemphill Urobilinogen Qn (U) 0.2 {Cassy'U}/dL Normal 0.2 - 1.0 [facility] Comment on above: Performed By: #### E RUR ####[facility] Pvbvlfuqxq027067 [address] [place], [place] [address]Dr. Lizandro Hemphill LACTATE/LACTIC ACIDon 2022 Lactate [Moles/Vol] 1.3 mmol/L Normal 0.4-2.0 [facility] Comment on above: Performed By: #### L ACT ####[facility] Mhukclxfpq7[address] [place], [place] [address]Dr. Lizandro Hemphill LIPASEon 06-26-2022 Lipase [Catalytic activity/Vol] 161.0 U/L Normal 73.0-393.0 [facility] Comment on above: Performed By: #### C MARGARITA ALICIA, LIPA ####[facility] Ywxumgkjvo384[address] [place], [place] [address]Dr. Lizandro Hemphill PROF 14(COMP METB)on 023 Albumin [Mass/Vol] 3.9 g/dL Normal 3.4-5.0 [facility] Comment on above: Performed By: #### C MP ALICIA, LIPA ####[facility] Dlhpddckvg604367 [address] [place], [place] [address]Dr. Lizandro Hemphill Albumin/Globulin [Mass ratio] 1.0 {ratio} Normal [facility] Comment on above: Performed By: #### C MP ALICIA, LIPA ####[facility] Eylyadrizy2114 [place] [address]Dr. Lizandro Hemphill ALP [Catalytic activity/Vol] 177 U/L Critically high 46-116 [facility] Comment on above: Performed By: #### C ALICIA AVILA, LIPA ####[facility] Zuzxbhbmlv4560 [place] [address]Dr. Lizandro Hemphill ALT [Catalytic activity/Vol] 83 U/L Critically high 14-59 [facility] Comment on above: Performed By: #### C MARGARITA ALICIA, LIPA ####[facility] Zfgtchlalz199[address] [place], [place] [address]Dr. Lizandro Hemphill Anion gap [Moles/Vol] 10.7 mmol/L Normal [facility] Comment on above: Performed By: #### C MARGARITA ALICIA, LIPA ####[facility] Gpfltzsenf869967 [address] [place], [place] [address]Dr. Lizandro Hemphill AST [Catalytic activity/Vol] 53 U/L Critically high 15-37 [facility] Comment on above: Performed By: #### C MARGARITA ALICIA, LIPA ####[facility] Abhuhmufpd359067 [address] [place], [place] [address]Dr. Lizandro Hemphill Bilirubin [Mass/Vol] 0.4 mg/dL Normal 0.2-1.0 [facility] Comment on above: Performed By: #### C MARGARITA ALICIA, LIPA ####[facility] Omlsraokqe431167 [address] [place], [place] [address]Dr. Lizandro Hemphill Calcium [Mass/Vol] 11.2 mg/dL Critically high 8.5-10.1 [facility] Comment on above: Performed By: #### C MARGARITA ALICIA, LIPA ####[facility] Azzxxollgb7482 [place] [address]Dr. Lizandro Hemphill Chloride [Moles/Vol] 101 mmol/L Normal 98-107 [facility] Comment on above: Performed By: #### C MP, ALICIA, LIPA ####[facility] Pndsqwbmvf6640 [place] [address]Dr. Lizandro Hemphill CO2 [Moles/Vol] 29.5 mmol/L Normal 21.0-32.0 [facility] Comment on above: Performed By: #### C MP, ALICIA, LIPA ####[facility] Tlhuxdlrsj2173 [place] [address]Dr. Lizandro Hemphill Creatinine [Mass/Vol] 0.79 mg/dL Normal 0.55-1.02 [facility] Comment on above: Performed By: #### C MP, ALICIA, LIPA ####[facility] Uhgtgccqla0362 [place] [address]Dr. Lizandro Hemphill EGFR-AF CYMRAES >60 Normal >=60 [facility] Comment on above: Performed By: #### C MP, ALICIA, LIPA ####[facility] Iyzibynwfp202267 [address] [place], [place] [address]Dr. Lizandro Hemphill EGFR-NON AF CYMRAES >60 Normal >=60 [facility] Comment on above: Performed By: #### C MP, ALICIA, LIPA ####[facility] Oxpeotktvg631967 [address] [place], [place] [address]Dr. Lizandro Hemphill Globulin (S) [Mass/Vol] 4.0 g/dL Normal [facility] Comment on above: Performed By: #### C MP, ALICIA, LIPA ####[facility] Pppmdogmqp273967 [address] [place], [place] [address]Dr. Lizandro Hemphill Glucose [Mass/Vol] 96 mg/dL Normal 74-106 [facility] Comment on above: Performed By: #### C MP, ALICIA, LIPA ####[facility] Nzusiaxlat743967 [address] [place], [place] [address]Dr. Lizandro Hemphill Potassium [Moles/Vol] 4.2 mmol/L Normal 3.5-5.1 [facility] Comment on above: Performed By: #### C MP, ALICIA, LIPA ####[facility] Rqnypczfed050967 [address] [place], [place] [address]Dr. Lizandro Hemphill Protein [Mass/Vol] 7.9 g/dL Normal 6.4-8.2 [facility] Comment on above: Performed By: #### C MP, ALICIA, LIPA ####[facility] Upnwtfvsvz738967 [address] [place], [place] [address]Dr. Lizandro Hemphill Sodium [Moles/Vol] 137 mmol/L Normal 136-145 [facility] Comment on above: Performed By: #### C ALICIA AVILA LIPA ####[facility] Twedjhtgjh9038 [place] [address]Dr. Lizandro Hemphill Urea nitrogen [Mass/Vol] 27.0 mg/dL Critically high 7.0-18.0 [facility] Comment on above: Performed By: #### C ALICIA AVILA LIPA ####[facility] Ymgxcekqfx425367 [address] [place], [place] [address]Dr. Lizandro Hemphill Urea nitrogen/Creatinin e [Mass ratio] 34.2 mg/mg Normal [facility] Comment on above: Performed By: #### C ALICIA AVILA LIPA ####[facility] Zjpyaicryt368367 [address] [place], [place] [address]Dr. Lizandro Hemphill PROTIMEon 06-26-2022 INR Coag (PPP) [Relative time] 1.07 {INR} Normal [facility] Comment on above: Performed By: #### P T ####[facility] Cgneuuthqp220967 [address] [place], [place] [address]Dr. Lizandro Hemphill INR GUIDELINES SEE BELOW Normal [facility] Comment on above: Result Comment: GUEVARA RED INR: 2.0 - 3.0 CONDITIONS NOT LISTED BELOW 2.5 - 3.5 FOR PROSTHETIC HEART VALVE REPLACEMENT 2.5 - 3.5 RECURRENT THROMBOSIS Performed By: #### P T ####[facility] Hjzukyfgrn9[address] [place], [place] [address]Dr. Lizandro Hemphill PT Coag (PPP) [Time] 11.3 s Normal 9.0-11.6 [facility] Comment on above: Performed By: #### P T ####[facility] Gdejgzqzxz856267 [address] [place], [place] [address]Dr. Lizandro Hemphill INR Coag (PPP) [Relative time] 0.96 {INR} Normal [facility] Comment on above: Performed By: #### P T ####[facility] Pogevpgaqj583467 [address] [place], [place] [address]DrCiro Hemphill INR GUIDELINES SEE BELOW Normal [facility] Comment on above: Result Comment: GUEVARA RED INR: 2.0 - 3.0 CONDITIONS NOT LISTED BELOW 2.5 - 3.5 FOR PROSTHETIC HEART VALVE REPLACEMENT 2.5 - 3.5 RECURRENT THROMBOSIS Performed By: #### P T ####[facility] Nrwkpjafap7858 [place] [address]Dr. Lizandro Hemphill PT Coag (PPP) [Time] 10.2 s Normal 9.0-11.6 [facility] Comment on above: Performed By: #### P T ####[facility] Ttrpcnuegm877267 [address] [place], [place] [address]Dr. Lizandro Hemphill C. DIFF PCRon 05-31-2022 C. DIFFICILE PCR Negative Normal NEGATIVE [facility] Comment on above: Performed By: #### C DIFPOC ####[facility] Kfhjsxihrl197167 [address] [place], [place] [address]Dr. Lizandro Hemphill CBC AUTO DIFFon 05-31-2022 BASO # 0.0 103/ul Normal 0.0-0.1 [facility] Comment on above: Performed By: #### C BC ####[facility] Acifyeqloc907567 [address] [place], [place] [address]Dr. Lizandro Hemphill Basophils/100 WBC (Bld) 0.2 % Normal 0.2-2.0 [facility] Comment on above: Performed By: #### C BC ####[facility] Bpvdmzbzyu434167 [address] [place], [place] [address]Dr. Lizandro Hemphill EO # 0.0 103/ul Normal 0.0-0.7 [facility] Comment on above: Performed By: #### C BC ####[facility] Xaprzpzlnx997367 [address] [place], [place] [address]Dr. Lizandro Hemphill Eosinophils/100 WBC (Bld) 0.1 % Critically low 0.9-7.0 [facility] Comment on above: Performed By: #### C BC ####[facility] Ybedrrvhio912367 [address] [place], [place] [address]Dr. Lizandro Hemphill Erythrocyte distribution width (RBC) [Ratio] 19.2 % Critically high 11.0-15.0 [facility] Comment on above: Performed By: #### C BC ####[facility] Mvxbtxaiqw7505 [place] [address]Dr. Lizandro Hemphill Hematocrit (Bld) [Volume fraction] 31.1 % Critically low 36.0-48.0 [facility] Comment on above: Performed By: #### C BC ####[facility] Rhovktqavt8754 [place] [address]Dr. Lizandro Hemphill Hemoglobin (Bld) [Mass/Vol] 10.1 g/dL Critically low 12.0-16.0 [facility] Comment on above: Performed By: #### C BC ####[facility] Mipwxxhsmc9964 [place] [address]Dr. Lizandro Hemphill IG # 0.07 10e3/ul Critically high 0.00-0.03 [facility] Comment on above: Performed By: #### C BC ####[facility] Btpngejben0916 [place] [address]Dr. Lizandro Hemphill IG % 0.6 % Critically high 0.0-0.5 [facility] Comment on above: Performed By: #### C BC ####[facility] Hedxoqfimb893[address] [place], [place] [address]DrCiro Lizandro Hemphill LYMPH # 0.6 103/ul Critically low 1.2-3.8 [facility] Comment on above: Performed By: #### C BC ####[facility] Xvdqkglbsz0656 [place] [address]DrCiro Lizandro Joby Lymphocytes/100 WBC (Bld) 5.1 % Critically low 20.5-60.0 [facility] Comment on above: Performed By: #### C BC ####[facility] Ywvnjackxu7070 [place] [address]DrCiro Shanikaannie Hemphill MANUAL DIFF REQ NO Normal [facility] Comment on above: Performed By: #### C BC ####[facility] Elgnuamlxx383567 [address] [place], [place] [address]DrCiro Shanikaannie Hemphill MCH (RBC) [Entitic mass] 27.8 pg Normal 26.7-34.0 [facility] Comment on above: Performed By: #### C BC ####[facility] Lkalbgikwt8902 [place] [id number]. Lizandro Hemphill MCHC (RBC) [Mass/Vol] 32.5 g/dL Normal 29.9-35.2 [facility] Comment on above: Performed By: #### C BC ####[facility] Utligsscok5836 [place] [phone] Lizandro Joby MCV (RBC) [Entitic vol] 85.7 fL Normal 81.0-99.0 [facility] Comment on above: Performed By: #### C BC ####[facility] Etjjqoczgn7923 [place] [phone] Vossannie Joby MONO # 0.9 103/ul Critically high 0.3-0.8 [facility] Comment on above: Performed By: #### C BC ####[facility] Qiitbrkchr7971 [place] [address]Dr. Lizandro Hemphill Monocytes/100 WBC (Bld) 7.4 % Normal 1.7-12.0 [facility] Comment on above: Performed By: #### C BC ####[facility] Ofsufdkajj[address] [place], [place] [address]Dr. Lizandro Hemphill NEUT # 10.5 103/ul Critically high 1.4-6.5 [facility] Comment on above: Performed By: #### C BC ####[facility] Qunmkkpnjw0642 [place] [phone]. Lizandro Hemphill Neutrophils/100 WBC (Bld) 86.6 % Critically high 43.0-75.0 [facility] Comment on above: Performed By: #### C BC ####[facility] Lumzmvpwna638[address] [place], [place] [address]DrCiro Hemphill Platelet mean volume (Bld) [Entitic vol] 10.9 fL Normal 9.5-13.5 [facility] Comment on above: Performed By: #### C BC ####[facility] Padrlwxybv2931 [place] [phone] Hemphill PLT 230 103/ul Normal 150-450 [facility] Comment on above: Performed By: #### C BC ####[facility] Deuibyefpo7394 [place] [phone]. Lizandro Hemphill RBC 3.63 106/ul Critically low 4.20-5.40 [facility] Comment on above: Performed By: #### C BC ####[facility] Edabynehet5839 [place] [phone]. Lizandro Hemphill WBC 12.1 103/ul Critically high 4.0-11.0 [facility] Comment on above: Performed By: #### C BC ####[facility] Svzytznzma8911 [place] [phone]. Lizandro Hemphill GI PANEL (PCR)on 05-31-2022 Adenovirus F 40/41 Not detected Normal NOT DETECTED [facility] Comment on above: Performed By: #### G IPANEL ####[facility] Vmrgmlvulj1635[address] [place], [place] [address]Dr. Lizandro Hemphill Astrovirus Not detected Normal NOT DETECTED [facility] Comment on above: Performed By: #### G IPANEL ####[facility] Msymipqwhr7540 [place] [address]Dr. Lizandro Hemphill C. Diff toxin A/B Not detected Normal NOT DETECTED [facility] Comment on above: Performed By: #### G IPANEL ####[facility] Cffvnzzske8513 [place] [address]Dr. Lizandro Hemphill Campylobacter Not detected Normal NOT DETECTED [facility] Comment on above: Performed By: #### G IPANEL ####[facility] Ruehxnlovt6314 [place] [address]Dr. Lizandro Hemphill Cryptosporidium Not detected Normal NOT DETECTED [facility] Comment on above: Performed By: #### G IPANEL ####[facility] Eelfcuulll015267 [address] [place], [place] [address]Dr. Lizandro Hemphill Cyclos. Cayetanensis Not detected Normal NOT DETECTED [facility] Comment on above: Performed By: #### G IPANEL ####[facility] Qmuanqnenj319867 [address] [place], [place] [address]Dr. Lizandro Hemphill E. Coli O157 Not Applicable Normal Not Applicable [facility] Comment on above: Performed By: #### G IPANEL ####[facility] Fxaundaxeg132867 [address] [place], [place] [address]Dr. Lizandro Hemphill E. histolytica Not detected Normal NOT DETECTED [facility] Comment on above: Performed By: #### G IPANEL ####[facility] Jdlhvllzoh180767 [address] [place], [place] [address]Dr. Shanikaannie Hemphill EAEC Not detected Normal NOT DETECTED [facility] Comment on above: Performed By: #### G IPANEL ####[facility] Csbzdfnifg147267 [address] [place], [place] [address]Dr. [facility] EIEC Not detected Normal NOT DETECTED [facility] Comment on above: Performed By: #### G IPANEL ####[facility] Kakmeazxtk3422[address] [place], [place] [address]Dr. [facility] EPEC Not detected Normal NOT DETECTED [facility] Comment on above: Performed By: #### G IPANEL ####[facility] Acicamgifj221467 [address] [place], [place] [address]Dr. Lizandro Hemphill ETEC Not detected Normal NOT DETECTED [facility] Comment on above: Performed By: #### G IPANEL ####[facility] Kekutdrlav416[address] [place], [place] [address]Dr. Shanikaannie Hemphill G. Lamblia Not detected Normal NOT DETECTED [facility] Comment on above: Performed By: #### G IPANEL ####[facility] Vwvleemvyy0[address] [place], [place] [address]Dr. Lizandro Hemphill GIPANEL CONTROLS PASSED Normal [facility] Comment on above: Performed By: #### G IPANEL ####[facility] Ujaolxysvi69[address] [place], [place] [address]Dr. Lizandro LEHMANNL CARIE HEADER GI PANEL BACTERIA Normal [facility] Comment on above: Performed By: #### G IPANEL ####[facility] Jbfolzyzsj8426[address] [place], [place] [address]Dr. Lizandro LEHMANNLHD ECOLI GI PANEL DIARRHEAGEN IC E.COLI / SHIGELLA Normal [facility] Comment on above: Performed By: #### G IPANEL ####[facility] Rbhesbbelr7[address] [place], [place] [address]Dr. Lizandro Joby GIPNLHD INFO SEE BELOW Normal [facility] Comment on above: Result Comment: EAEC - Enteroaggregative E. Coli EPEC- Enteropathogenic E. Coli ETEC- Enterotoxigenic E. Coli lt/st STEC- Shigella-like toxin-producing E. Coli stx1/stx2 EIEC- Shigella/Enteroinvasive E. Coli Performed By: #### G IPANEL ####[facility] [id number] [place], [place] [address]Dr. Lizandro Hemphill GIPNLHD PARASITES GI PANEL PARASITES Normal [facility] Comment on above: Performed By: #### G IPANEL ####[facility] [id number] [place], [place] [address]Dr. Lizandro Hemphill GIPNICOLE VIRUS GI PANEL VIRUSES Normal [facility] Comment on above: Performed By: #### G IPANEL ####[facility] [id number] [address] [place], [place] [address]Dr. Lizandro Hemphill Norovirus GI/GII Not detected Normal NOT DETECTED [facility] Comment on above: Performed By: #### G IPANEL ####[facility] [id number] [address] [place], [place] [address]Dr. Lizandro Hemphill P. Shigelloides Not detected Normal NOT DETECTED [facility] Comment on above: Performed By: #### G IPANEL ####[facility] [id number] [address] [place], [place] [address]Dr. Lizandro Hemphill Rotavirus A Not detected Normal NOT DETECTED The [facility] Comment on above: Performed By: #### G IPANEL ####[facility] [id number] [address] [place], [place] [address]Dr. Lizandro Hemphill Salmonella Not detected Normal NOT DETECTED [facility] Comment on above: Performed By: #### G IPANEL ####[facility] [id number] [address] [place], [place] [address]Dr. Lizandro Hemphill Sapovirus Not detected Normal NOT DETECTED [facility] Comment on above: Performed By: #### G IPANEL ####[facility] [address]cfjy[address] [place] [address]Dr. Lizandro Hemphill STEC Not detected Normal NOT DETECTED [facility] Comment on above: Performed By: #### G IPANEL ####[facility] Bksarxqrkm9183 [place] [address]Dr. Lizandro Hemphill Vibrio Not detected Normal NOT DETECTED [facility] Comment on above: Performed By: #### G IPANEL ####[facility] [id number] [place], [place] [address]Dr. Lizandro Hemphill Vibrio Cholera Not detected Normal NOT DETECTED The [facility] Comment on above: Performed By: #### G IPANEL ####[facility] Eteszlfyxn524667 [address] [place], [place] [address]Dr. Lizandro Hemphill Y. Enterocolitica Not detected Normal NOT DETECTED [facility] Comment on above: Performed By: #### G IPANEL ####[facility] [id number] [address] [place], [place] [address]Dr. Lizandro Hemphill PROF 14(COMP METB)on 023 Albumin [Mass/Vol] 2.4 g/dL Critically low 3.4-5.0 [facility] Comment on above: Performed By: #### C MP ####[facility] Ofkhqqazhq083267 [address] [place], [place] [address]Dr. Lizandro Hemphill Albumin/Globulin [Mass ratio] 0.9 {ratio} Normal [facility] Comment on above: Performed By: #### C MP ####[facility] Oevnwdpwta478367 [address] [place], [place] [address]Dr. Lizandro Hemphill ALP [Catalytic activity/Vol] 77 U/L Normal 46-116 [facility] Comment on above: Performed By: #### C MP ####[facility] Kpclmpebku214867 [address] [place], [place] [address]Dr. Lizandro Hemphill ALT [Catalytic activity/Vol] 20 U/L Normal 14-59 [facility] Comment on above: Performed By: #### C MP ####[facility] Hixphckrnh773667 [address] [place], [place] [address]Dr. Lizandro Hemphill Anion gap [Moles/Vol] 10.9 mmol/L Normal [facility] Comment on above: Performed By: #### C MP ####[facility] Jcomnhdivb042767 [address] [place], [place] [address]Dr. Lizandro Hemphill AST [Catalytic activity/Vol] 15 U/L Normal 15-37 [facility] Comment on above: Performed By: #### C MP ####[facility] [id number] [address] [place], [place] [address]Dr. Lizandro Joby Bilirubin [Mass/Vol] 0.2 mg/dL Normal 0.2-1.0 [facility] Comment on above: Performed By: #### C MP ####[facility] Isifwsykpx053667 [address] [place], [place] [address]Dr. Shanikaannie Joby Calcium [Mass/Vol] 7.8 mg/dL Critically low 8.5-10.1 Th [facility] Comment on above: Performed By: #### C MP ####[facility] Wluxadkadv790967 [address] [place], [place] [address]Dr. Lizandro Hemphill Chloride [Moles/Vol] 106 mmol/L Normal 98-107 [facility] Comment on above: Performed By: #### C MP ####[facility] Zmrbyhhsfj472367 [address] [place], [place] [address]Dr. Lizandro Joby CO2 [Moles/Vol] 25.3 mmol/L Normal 21.0-32.0 [facility] Comment on above: Performed By: #### C MP ####[facility] Fqejxjnsvz710567 [address] [place], [place] [address]Dr. Lizandro Joby Creatinine [Mass/Vol] 1.07 mg/dL Critically high 0.55-1.02 [facility] Comment on above: Performed By: #### C MP ####[facility] Eulkroqocr183667 [address] [place], [place] [address]Dr. Shanikaannie Joby EGFR-AF CYMRAES >60 Normal >=60 [facility] Comment on above: Performed By: #### C MP ####[facility] Ftkubbdjlj568967 [address] [place], [place] [address]Dr. Lizandro Hemphill EGFR-NON AF CYMRAES 52 mL/min/1.73m2 Critically low >=60 [facility] Comment on above: Performed By: #### C MP ####[facility] Qhmmgxhqyf8164 [place] [address]Dr. Shanikaannie Joby Globulin (S) [Mass/Vol] 2.8 g/dL Normal [facility] Comment on above: Performed By: #### C MP ####[facility] Dnyoryswwu8818 [place] [address]Dr. Lizandro Hemphill Glucose [Mass/Vol] 254 mg/dL Critically high 74-106 T [facility] Comment on above: Performed By: #### C MP ####[facility] Ukkjhwvhgk409467 [address] [place], [place] [address]Dr. Lizandro Hemphill Potassium [Moles/Vol] 3.2 mmol/L Critically low 3.5-5.1 [facility] Comment on above: Performed By: #### C MP ####[facility] Mzxqtwuesg338067 [address] [place], [place] [address]Dr. Lizandro Hemphill Protein [Mass/Vol] 5.2 g/dL Critically low 6.4-8.2 [facility] Comment on above: Performed By: #### C MP ####[facility] Hkhzuexslz122267 [address] [place], [place] [address]Dr. Lizandro Hemphill Sodium [Moles/Vol] 139 mmol/L Normal 136-145 [facility] Comment on above: Performed By: #### C MP ####[facility] Osizrifrdt756667 [address] [place], [place] [address]Dr. Lizandro Hemphill Urea nitrogen [Mass/Vol] 9.0 mg/dL Normal 7.0-18.0 [facility] Comment on above: Performed By: #### C MP ####[facility] Bipqwmwhje500467 [address] [place], [place] [address]Dr. Lizandro Hemphill Urea nitrogen/Creatinin e [Mass ratio] 8.4 mg/mg Normal [facility] Comment on above: Performed By: #### C MP ####[facility] [id number] [place], [place] [address]Dr. Lizandro Hemphill PROTIMEon 05-31-2022 INR Coag (PPP) [Relative time] 1.94 {INR} Normal [facility] Comment on above: Performed By: #### P T ####[facility] Ahoyywfeix976167 [address] [place], [place] [address]DrCiro Lizandro Hemphill INR GUIDELINES SEE BELOW Normal [facility] Comment on above: Result Comment: GUEVARA RED INR: 2.0 - 3.0 CONDITIONS NOT LISTED BELOW 2.5 - 3.5 FOR PROSTHETIC HEART VALVE REPLACEMENT 2.5 - 3.5 RECURRENT THROMBOSIS Performed By: #### P T ####[facility] Mxuloswyxo457567 [address] [place], [place] [address]Dr. Lizandro Hemphill PT Coag (PPP) [Time] 19.8 s Critically high 9.0-11.6 [facility] Comment on above: Performed By: #### P T ####[facility] Hbphglovpy069267 [address] [place], [place] [address]Dr. Lizandro Hemphill CBC AUTO DIFFon 05-30-2022 BASO # 0.0 103/ul Normal 0.0-0.1 [facility] Comment on above: Performed By: #### C BC ####[facility] Vehnxjebsq039067 [address] [place], [place] [address]Dr. Lizandro Hemphill Basophils/100 WBC (Bld) 0.3 % Normal 0.2-2.0 [facility] Comment on above: Performed By: #### C BC ####[facility] Htlibqoiih6495[address] [place], [place] [address]DrCiro Hemphill EO # 0.0 103/ul Normal 0.0-0.7 [facility] Comment on above: Performed By: #### C BC ####[facility] Kwruoohqtc132367 [address] [place], [place] [address]DrCiro Hemphill Eosinophils/100 WBC (Bld) 0.0 % Critically low 0.9-7.0 [facility] Comment on above: Performed By: #### C BC ####[facility] Uaxigwxzln647467 [address] [place], [place] [address]DrCiro Hemphill Erythrocyte distribution width (RBC) [Ratio] 19.2 % Critically high 11.0-15.0 [facility] Comment on above: Performed By: #### C BC ####[facility] [address]ph[address]wqyo12[address] [place] [address]Dr. Lizandro Hemphill Hematocrit (Bld) [Volume fraction] 35.5 % Critically low 36.0-48.0 [facility] Comment on above: Performed By: #### C BC ####[facility] N[address]hqofler2383 [place] [address]Dr. Lizandro Hemphill Hemoglobin (Bld) [Mass/Vol] 11.3 g/dL Critically low 12.0-16.0 [facility] Comment on above: Performed By: #### C BC ####[facility] Lonkhovpft438967 [address] [place], [place] [address]Dr. Lizandro Hemphill IG # 0.03 10e3/ul Normal 0.00-0.03 [facility] Comment on above: Performed By: #### C BC ####[facility] Gkuqjzudgt250067 [address] [place], [place] [address]Dr. Lizandro Hemphill IG % 0.4 % Normal 0.0-0.5 [facility] Comment on above: Performed By: #### C BC ####[facility] Vlchbposhr589967 [address] [place], [place] [address]DrCiro Hemphill LYMPH # 0.3 103/ul Critically low 1.2-3.8 [facility] Comment on above: Performed By: #### C BC ####[facility] Uvinmffnsu857967 [address] [place], [place] [address]Dr. Lizandro Hemphill Lymphocytes/100 WBC (Bld) 3.9 % Critically low 20.5-60.0 [facility] Comment on above: Performed By: #### C BC ####[facility] Eoejmupjsq768367 [address] [place], [place] [address]DrCiro Hemphill MANUAL DIFF REQ NO Normal [facility] Comment on above: Performed By: #### C BC ####[facility] Ahfnaxvpru740067 [address] [place], [place] [address]Dr. Lizandro Hemphill MCH (RBC) [Entitic mass] 26.9 pg Normal 26.7-34.0 [facility] Comment on above: Performed By: #### C BC ####[facility] [address]zjnuutphq2288 [place] [address]Dr. Lizandro Hemphill MCHC (RBC) [Mass/Vol] 31.8 g/dL Normal 29.9-35.2 [facility] Comment on above: Performed By: #### C BC ####[facility] Vjvyvwantm0191 [place] [address]DrCiro Hemphill MCV (RBC) [Entitic vol] 84.5 fL Normal 81.0-99.0 [facility] Comment on above: Performed By: #### C BC ####[facility] Ibkierfrgy148167 [address] [place], [place] [address]DrCiro Hemphill MONO # 0.1 103/ul Critically low 0.3-0.8 [facility] Comment on above: Performed By: #### C BC ####[facility] Ygfrealhbl266667 [address] [place], [place] [address]Dr. Lizandro Hemphill Monocytes/100 WBC (Bld) 1.0 % Critically low 1.7-12.0 [facility] Comment on above: Performed By: #### C BC ####[facility] Qlwxaqxytr388167 [address] [place], [place] [address]DrCiro Hemphill NEUT # 6.5 103/ul Normal 1.4-6.5 [facility] Comment on above: Performed By: #### C BC ####[facility] Kxxyglbohk7827[address] [place], [place] [address]DrCiro Hemphill Neutrophils/100 WBC (Bld) 94.4 % Critically high 43.0-75.0 [facility] Comment on above: Performed By: #### C BC ####[facility] Trxxtcgyfd835867 [address] [place], [place] [address]DrCiro Hemphill Platelet mean volume (Bld) [Entitic vol] 10.3 fL Normal 9.5-13.5 [facility] Comment on above: Performed By: #### C BC ####[facility] Pvqukgeyxi885467 [address] [place], [place] [address]Dr. Lizandro Hemphill PLT 248 103/ul Normal 150-450 [facility] Comment on above: Performed By: #### C BC ####[facility] Ymeuhzlvbv2721 [place] [address]Dr. Lizandro Hemphill RBC 4.20 106/ul Normal 4.20-5.40 [facility] Comment on above: Performed By: #### C BC ####[facility] Vfqxfkrvlc8219 [place] [id number]. Shanikaannie Joby WBC 6.9 103/ul Normal 4.0-11.0 [facility] Comment on above: Performed By: #### C BC ####[facility] Akjqekaynr2[address] [place] [address]Dr. Lizandro Hemph[address] CT ABD/PELV W CONon 05-31-19 CT ABD/PELV W CON Normal [facility] PRBC LEUKOREDUCEDon 05-31-19 23 PRBC LEUKOREDUCED Normal [facility] Comment on above: Performed By: #### P RBC ####[facility] Swcwdymiet926567 [address] [place], [place] [address]Dr. Lizandro Hemphill PROF 14(COMP METB)on 023 Albumin [Mass/Vol] 2.8 g/dL Critically low 3.4-5.0 Th [facility] Comment on above: Performed By: #### C MP ####[facility] Oeeyyfhftr3641 [place] [address]Dr. Lizandro Hemphill Albumin/Globulin [Mass ratio] 0.8 {ratio} Normal [facility] Comment on above: Performed By: #### C MP ####[facility] Ofvmkabdkl7018 [place] [address]Dr. Lizandro Hemphill ALP [Catalytic activity/Vol] 100 U/L Normal 46-116 [facility] Comment on above: Performed By: #### C MP ####[facility] Yjnhysyyil2572 [place] [address]Dr. Lizandro Hemphill ALT [Catalytic activity/Vol] 28 U/L Normal 14-59 [facility] Comment on above: Performed By: #### C MP ####[facility] Ketfdcedlf2197 [place] [address]Dr. Lizandro Hemphill Anion gap [Moles/Vol] 11.5 mmol/L Normal [facility] Comment on above: Performed By: #### C MP ####[facility] Hylmfvkwty744[address] [place], [place] [address]Dr. Lizandro Hemphill AST [Catalytic activity/Vol] 23 U/L Normal 15-37 [facility] Comment on above: Performed By: #### C MP ####[facility] Iikrogfdrv321667 [address] [place], [place] [address]Dr. Lizandro Joby Bilirubin [Mass/Vol] 0.3 mg/dL Normal 0.2-1.0 [facility] Comment on above: Performed By: #### C MP ####[facility] Kthdohxjey610967 [address] [place], [place] [address]Dr. Lizandro Hemphill Calcium [Mass/Vol] 8.4 mg/dL Critically low 8.5-10.1 [facility] Comment on above: Performed By: #### C MP ####[facility] Hkciwciqvi368667 [address] [place], [place] [address]Dr. Lizandro Joby Chloride [Moles/Vol] 105 mmol/L Normal 98-107 [facility] Comment on above: Performed By: #### C MP ####[facility] Hvvgdqlbuh878567 [address] [place], [place] [address]Dr. Lizandro Joby CO2 [Moles/Vol] 30.5 mmol/L Normal 21.0-32.0 [facility] Comment on above: Performed By: #### C MP ####[facility] Kxnibuixmh869367 [address] [place], [place] [address]Dr. Shanikaannie Joby Creatinine [Mass/Vol] 0.93 mg/dL Normal 0.55-1.02 [facility] Comment on above: Performed By: #### C MP ####[facility] Huzocizgkx007167 [address] [place], [place] [address]Dr. Shanikaannie Joby EGFR-AF CYMRAES >60 Normal >=60 [facility] Comment on above: Performed By: #### C MP ####[facility] Tepprpcwit380267 [address] [place], [place] [address]Dr. Lizandro Joby EGFR-NON AF CYMRAES >60 Normal >=60 [facility] Comment on above: Performed By: #### C MP ####[facility] Qcwrviakbg5167 [place] [address]Dr. Lizandro Joby Globulin (S) [Mass/Vol] 3.4 g/dL Normal [facility] Comment on above: Performed By: #### C MP ####[facility] Izbnmzqmmb5000 [place] [address]Dr. Shanikaannie Joby Glucose [Mass/Vol] 177 mg/dL Critically high 74-106 T [facility] Comment on above: Performed By: #### C MP ####[facility] Oobnhjpyet633267 [address] [place], [place] [address]Dr. Lizandro Hemphill Potassium [Moles/Vol] 4.0 mmol/L Normal 3.5-5.1 [facility] Comment on above: Performed By: #### C MP ####[facility] Mweclxwjju833167 [address] [place], [place] [address]Dr. Shanikaannie Hemphill Protein [Mass/Vol] 6.2 g/dL Critically low 6.4-8.2 [facility] Comment on above: Performed By: #### C MP ####[facility] Wxlqbsrsqz677167 [address] [place], [place] [address]Dr. Lizandro Hemphill Sodium [Moles/Vol] 143 mmol/L Normal 136-145 [facility] Comment on above: Performed By: #### C MP ####[facility] Hehdndbqny961467 [address] [place], [place] [address]Dr. Lizandro Hemphill Urea nitrogen [Mass/Vol] 10.0 mg/dL Normal 7.0-18.0 [facility] Comment on above: Performed By: #### C MP ####[facility] Imcmqxepko3915[address] [place], [place] [address]Dr. Lizandro Hemphill Urea nitrogen/Creatinin e [Mass ratio] 10.8 mg/mg Normal [facility] Comment on above: Performed By: #### C MP ####[facility] Wgicfjkpnn155167 [address] [place], [place] [address]Dr. Lizandro Hemphill PROTIMEon 05-30-2022 INR Coag (PPP) [Relative time] 1.24 {INR} Normal [facility] Comment on above: Performed By: #### P T ####[facility] Rrkdipkgtt69036[address] [place], [place] [address]Dr. Lizandro Hemphill INR GUIDELINES SEE BELOW Normal [facility] Comment on above: Result Comment: GUEVARA RED INR: 2.0 - 3.0 CONDITIONS NOT LISTED BELOW 2.5 - 3.5 FOR PROSTHETIC HEART VALVE REPLACEMENT 2.5 - 3.5 RECURRENT THROMBOSIS Performed By: #### P T ####[facility] Xrblrpmysy758267 [address] [place], [place] [address]Dr. Lizandro Hemphill PT Coag (PPP) [Time] 13.0 s Critically high 9.0-11.6 [facility] Comment on above: Performed By: #### P T ####[facility] Xgixvfkcvv870867 [address] [place], [place] [address]Dr. Lizandro Hemphill CBC AUTO DIFFon 05-29-2022 BASO # 0.0 103/ul Normal 0.0-0.1 [facility] Comment on above: Performed By: #### C BC ####[facility] Rcyjvzhkhf6905[address] [place], [place] [address]Dr. Lizandro Hemphill Basophils/100 WBC (Bld) 0.3 % Normal 0.2-2.0 [facility] Comment on above: Performed By: #### C BC ####[facility] Rganuyslqa886067 [address] [place], [place] [address]Dr. Lizandro Hemphill EO # 0.1 103/ul Normal 0.0-0.7 [facility] Comment on above: Performed By: #### C BC ####[facility] Uqicfzaauz723[address] [place], [place] [address]DrCiro Hemphill Eosinophils/100 WBC (Bld) 0.6 % Critically low 0.9-7.0 [facility] Comment on above: Performed By: #### C BC ####[facility] Pgesanndno187267 [address] [place], [place] [address]Dr. Lizandro Hemphill Erythrocyte distribution width (RBC) [Ratio] 19.1 % Critically high 11.0-15.0 [facility] Comment on above: Performed By: #### C BC ####[facility] Gdaejbdkjg2738 [place] [address]DrCiro Hemphill Hematocrit (Bld) [Volume fraction] 34.1 % Critically low 36.0-48.0 [facility] Comment on above: Performed By: #### C BC ####[facility] Edhjjegoat6393 [place] [address]DrCiro Hemphill Hemoglobin (Bld) [Mass/Vol] 10.9 g/dL Critically low 12.0-16.0 [facility] Comment on above: Performed By: #### C BC ####[facility] Dowsvlvkwd831167 [address] [place], [place] [address]DrCiro Hemphill IG # 0.04 10e3/ul Critically high 0.00-0.03 [facility] Comment on above: Performed By: #### C BC ####[facility] Qfeqdgbufk357867 [address] [place], [place] [address]DrCiro Hemphill IG % 0.5 % Normal 0.0-0.5 [facility] Comment on above: Performed By: #### C BC ####[facility] Ebmojbegvc969767 [address] [place], [place] [address]DrCiro Hemphill LYMPH # 0.9 103/ul Critically low 1.2-3.8 [facility] Comment on above: Performed By: #### C BC ####[facility] Zubtfitydv641567 [address] [place], [place] [address]DrCiro Hemphill Lymphocytes/100 WBC (Bld) 10.5 % Critically low 20.5-60.0 [facility] Comment on above: Performed By: #### C BC ####[facility] Ookrutgqfj784[address] [place], [place] [address]DrCiro Hemphill MANUAL DIFF REQ NO Normal [facility] Comment on above: Performed By: #### C BC ####[facility] Nakeorsxgw0095 [place] [address]DrCiro Hemphill MCH (RBC) [Entitic mass] 26.7 pg Normal 26.7-34.0 [facility] Comment on above: Performed By: #### C BC ####[facility] Xkohfmydwp8923 [place] [address]DrCiro Hemphill MCHC (RBC) [Mass/Vol] 32.0 g/dL Normal 29.9-35.2 [facility] Comment on above: Performed By: #### C BC ####[facility] Neebahypoa3597 [place] [address]DrCiro Hemphill MCV (RBC) [Entitic vol] 83.6 fL Normal 81.0-99.0 [facility] Comment on above: Performed By: #### C BC ####[facility] Dmhsdzfxav109067 [address] [place], [place] [address]DrCiro Hemphill MONO # 0.9 103/ul Critically high 0.3-0.8 [facility] Comment on above: Performed By: #### C BC ####[facility] Vtjfwrwvvz3759[address] [place], [place] [address]DrCiro Hemphill Monocytes/100 WBC (Bld) 10.1 % Normal 1.7-12.0 [facility] Comment on above: Performed By: #### C BC ####[facility] Gxogkmexry7978[address] [place], [place] [address]DrCiro Hemphill NEUT # 6.9 103/ul Critically high 1.4-6.5 [facility] Comment on above: Performed By: #### C BC ####[facility] Bixxpdtypv753[address] [place], [place] [address]DrCiro Hemphill Neutrophils/100 WBC (Bld) 78.0 % Critically high 43.0-75.0 [facility] Comment on above: Performed By: #### C BC ####[facility] Jqtbtyljsn034[address] [place], [place] [address]DrCiro Hemphill Platelet mean volume (Bld) [Entitic vol] 11.3 fL Normal 9.5-13.5 [facility] Comment on above: Performed By: #### C BC ####[facility] Ktatoafgzz319[address] [place], [place] [address]DrCiro Hemphill PLT 196 103/ul Normal 150-450 [facility] Comment on above: Performed By: #### C BC ####[facility] Ordruudbxl7745 [place] [id number]. Lizandro Hemphill RBC 4.08 106/ul Critically low 4.20-5.40 [facility] Comment on above: Performed By: #### C BC ####[facility] Kjktdqfffi3346 [place] [id number]. Lizandro Hemphill WBC 8.8 103/ul Normal 4.0-11.0 [facility] Comment on above: Performed By: #### C BC ####[facility] Axwmmtqlyd3025 [place] [id number]. Lizandro Joby CT ABD/PELVIS WO CONon 05-29 CT ABD/PELVIS WO CON Normal [facility] CULTURE URINEon 05-29-2022 CULTURE URINE Culture Observations : NO GROWTH. Normal [facility] Comment on above: Performed By: #### U RCX ####[facility] Salcdtyqkr6[address] [place] [address]Dr. Shanikaannie Joby PROF 14(COMP METB)on 023 Albumin [Mass/Vol] 2.8 g/dL Critically low 3.4-5.0 [facility] Comment on above: Performed By: #### C MP ####[facility] Bqbdbfxdtp500[address] [place] [address]Dr. Lizandro Hemphill Albumin/Globulin [Mass ratio] 0.9 {ratio} Normal [facility] Comment on above: Performed By: #### C MP ####[facility] Tbpqlplmml0442 [place] [id number]. Lizandro Hemphill ALP [Catalytic activity/Vol] 97 U/L Normal 46-116 [facility] Comment on above: Performed By: #### C MP ####[facility] Dnmxqyncyy1182 [place] [id number]. Lizandro Hemphill ALT [Catalytic activity/Vol] 32 U/L Normal 14-59 [facility] Comment on above: Performed By: #### C MP ####[facility] Wdpaarxcoj6325 [place] [phone]. Lizandro Hemphill Anion gap [Moles/Vol] 10.6 mmol/L Normal [facility] Comment on above: Performed By: #### C MP ####[facility] Lafaplbsup0834 [place] [address]Dr. Lizandro Hemphill AST [Catalytic activity/Vol] 32 U/L Normal 15-37 [facility] Comment on above: Performed By: #### C MP ####[facility] Wpzxpveyhd5099 [place] [address]Dr. Lizandro Hemphill Bilirubin [Mass/Vol] 0.4 mg/dL Normal 0.2-1.0 [facility] Comment on above: Performed By: #### C MP ####[facility] Ascpmhcxzi1431 [place] [address]Dr. Lizandro Hemphill Calcium [Mass/Vol] 8.3 mg/dL Critically low 8.5-10.1 [facility] Comment on above: Performed By: #### C MP ####[facility] Zqeemthlnk59[address] [place], [place] [address]Dr. Lizandro Hemphill Chloride [Moles/Vol] 103 mmol/L Normal 98-107 [facility] Comment on above: Performed By: #### C MP ####[facility] Zzxgxkfqjj145167 [address] [place], [place] [address]Dr. Lizandro Hemphill CO2 [Moles/Vol] 31.5 mmol/L Normal 21.0-32.0 [facility] Comment on above: Performed By: #### C MP ####[facility] Xpdsdmasxs354[address] [place], [place] [address]Dr. Lizandro Joby Creatinine [Mass/Vol] 0.83 mg/dL Normal 0.55-1.02 [facility] Comment on above: Performed By: #### C MP ####[facility] Znnwhopmem464167 [address] [place], [place] [address]Dr. Shanikaannie Joby EGFR-AF CYMRAES >60 Normal >=60 [facility] Comment on above: Performed By: #### C MP ####[facility] Nckugnvyth727767 [address] [place], [place] [address]Dr. Lizandro Hemphill EGFR-NON AF CYMRAES >60 Normal >=60 [facility] Comment on above: Performed By: #### C MP ####[facility] Htbhuxjhua9969 [place] [address]Dr. Lizandro Hemphill Globulin (S) [Mass/Vol] 3.2 g/dL Normal [facility] Comment on above: Performed By: #### C MP ####[facility] Tbyutdrytm558167 [address] [place], [place] [address]Dr. Lizandro Hemphill Glucose [Mass/Vol] 120 mg/dL Critically high 74-106 [facility] Comment on above: Performed By: #### C MP ####[facility] Opgbyxdouj522467 [address] [place], [place] [address]Dr. Lizandro Hemphill Potassium [Moles/Vol] 3.1 mmol/L Critically low 3.5-5.1 [facility] Comment on above: Performed By: #### C MP ####[facility] Jbrzqprney712767 [address] [place], [place] [address]Dr. Lizandro Hemphill Protein [Mass/Vol] 6.0 g/dL Critically low 6.4-8.2 [facility] Comment on above: Performed By: #### C MP ####[facility] Gwzeexbiro080[address] [place], [place] [address]Dr. Lizandro Hemphill Sodium [Moles/Vol] 142 mmol/L Normal 136-145 [facility] Comment on above: Performed By: #### C MP ####[facility] Cnexotburo144667 [address] [place], [place] [address]Dr. Lizandro Hemphill Urea nitrogen [Mass/Vol] 8.0 mg/dL Normal 7.0-18.0 [facility] Comment on above: Performed By: #### C MP ####[facility] Cqygshuliz406567 [address] [place], [place] [address]Dr. Lizandro Hemphill Urea nitrogen/Creatinin e [Mass ratio] 9.6 mg/mg Normal [facility] Comment on above: Performed By: #### C MP ####[facility] Ebksnovzbx165567 [address] [place], [place] [address]DrCiro Hemphill PROTIMEon 05-29-2022 INR Coag (PPP) [Relative time] 1.11 {INR} Normal [facility] Comment on above: Performed By: #### P T ####[facility] Kmujwljqvk5919 [place] [address]Dr. Lizandro Hemphill INR GUIDELINES SEE BELOW Normal [facility] Comment on above: Result Comment: GUEVARA RED INR: 2.0 - 3.0 CONDITIONS NOT LISTED BELOW 2.5 - 3.5 FOR PROSTHETIC HEART VALVE REPLACEMENT 2.5 - 3.5 RECURRENT THROMBOSIS Performed By: #### P T ####[facility] Fvzgvafhky280[address] [place], [place] [address]DrCiro Hemphill PT Coag (PPP) [Time] 11.7 s Critically high 9.0-11.6 [facility] Comment on above: Performed By: #### P T ####[facility] Gloedvriai315867 [address] [place], [place] [address]DrCiro Hemphill UA RANDOM W/MICROSCOPICon BACTERIA NONE SEEN Normal NONE SEEN [facility] Comment on above: Performed By: #### U AMIC ####[facility] Rlhjpsedjk056167 [address] [place], [place] [address]DrCiro Hemphill Bilirubin Ql (U) Negative Normal NEGATIVE [facility] Comment on above: Performed By: #### U AMIC ####[facility] Msdftrubdg413167 [address] [place], [place] [address]DrCiro Hemphill CAST NONE SEEN Normal NONE SEEN [facility] Comment on above: Performed By: #### U AMIC ####[facility] Pwecwsiovo704467 [address] [place], [place] [address]DrCiro Hemphill Clarity (U) CLEAR Normal CLEAR [facility] Comment on above: Performed By: #### U AMIC ####[facility] Fxbdazfcmi491167 [address] [place], [place] [address]DrCiro Hemphill Color (U) LT. YELLOW Normal YELLOW [facility] Comment on above: Performed By: #### U AMIC ####[facility] Qrilbdgyrl323067 [address] [place], [place] [address]DrCiro Hemphill Crystals LM Nom (Urine sed) NONE SEEN Normal NONE SEEN [facility] Comment on above: Performed By: #### U AMIC ####[facility] Sqdmzpdewv7540 [place] [phone]. Lizandro Hemphill Epithelial cells LM Ql (Urine sed) NONE SEEN Normal NONE SEEN /RARE [facility] Comment on above: Performed By: #### U AMIC ####[facility] Wpqcajurba5582 [place] [phone]. Lizandro Hemphill Glucose Ql (U) Negative Normal NEGATIVE [facility] Comment on above: Performed By: #### U AMIC ####[facility] Nlqyveifuj9357 [place] [phone]. Lizandro Hemphill Hemoglobin Ql (U) Negative Normal NEGATIVE [facility] Comment on above: Performed By: #### U AMIC ####[facility] Xjpdetaqkb3238 [place] [phone]. Lizandro Hemphill Ketones Ql (U) Negative Normal NEGATIVE [facility] Comment on above: Performed By: #### U AMIC ####[facility] Stvynnvcxh1083 [place] [phone]. Lizandro Hemphill LEUKOCYTES Negative Normal NEGATIVE [facility] Comment on above: Performed By: #### U AMIC ####[facility] Wmuiavmltq6245 [place] [phone]. Lizandro Hemphill MUCOUS NONE SEEN Normal NONE SEEN [facility] Comment on above: Performed By: #### U AMIC ####[facility] Nxkfjxfzjm0886 [place] [phone]. Lizandro Hemphill Nitrite Ql (U) Negative Normal NEGATIVE [facility] Comment on above: Performed By: #### U AMIC ####[facility] Gskfmfegrj6440 [place] [phone]. Lizandro Hemphill pH (U) 7.5 [pH] Normal 5-9 [facility] Comment on above: Performed By: #### U AMIC ####[facility] Pytoaryokm4338 [place] [phone]. Lizandro Hemphill RBC NONE SEEN Abnormal 0-2 [facility] Comment on above: Performed By: #### U AMIC ####[facility] Llqevqxaei8241 [place] [phone]. Lizandro Hemphill SPEC GRAVITY 1.010 Normal 1.005-<=1.025 [facility] Comment on above: Performed By: #### U AMIC ####[facility] Zpayuwopco6410 [place] [phone]. Lizandro Hemphill UA PROTEIN Negative Normal NEGATIVE/ TRACE [facility] Comment on above: Performed By: #### U AMIC ####[facility] Beizpfugeg7709 [place] [phone]. Lizandro Hemphill Urobilinogen Qn (U) 0.2 {Cassy'U}/dL Normal 0.2 - 1.0 [facility] Comment on above: Performed By: #### U AMIC ####[facility] Qbbypqamri159767 [address] [place], [place] [address]Dr. Lizandro Hemphill WBC NONE SEEN Normal NONE SEEN [facility] Comment on above: Performed By: #### U AMIC ####[facility] Bkikwjkwki8633 [place] [phone]. Lizandro Joby CBC AUTO DIFFon 05-28-2022 BASO # 0.0 103/ul Normal 0.0-0.1 [facility] Comment on above: Performed By: #### C BC ####[facility] Udtbmwwkka547267 [address] [place], [place] [address]Dr. Lizandro Hemphill Basophils/100 WBC (Bld) 0.6 % Normal 0.2-2.0 [facility] Comment on above: Performed By: #### C BC ####[facility] Qdcdhxqybs7458 [place] [phone]. Lizandro Hemphill EO # 0.0 103/ul Normal 0.0-0.7 [facility] Comment on above: Performed By: #### C BC ####[facility] Lajfjvghbd5240 [place] [address]Dr. Lizandro Hemphill Eosinophils/100 WBC (Bld) 0.6 % Critically low 0.9-7.0 [facility] Comment on above: Performed By: #### C BC ####[facility] Guicrmlyin1130 [place] [address]Dr. Lizandro Hemphill Erythrocyte distribution width (RBC) [Ratio] 18.6 % Critically high 11.0-15.0 [facility] Comment on above: Performed By: #### C BC ####[facility] Ofpiejjmne5106 [place] [address]Dr. Lizandro Hemphill Hematocrit (Bld) [Volume fraction] 31.6 % Critically low 36.0-48.0 [facility] Comment on above: Performed By: #### C BC ####[facility] Tydighcrxj052567 [address] [place], [place] [address]Dr. Lizandro Hemphill Hemoglobin (Bld) [Mass/Vol] 10.2 g/dL Critically low 12.0-16.0 [facility] Comment on above: Performed By: #### C BC ####[facility] Psemhkhcpw984967 [address] [place], [place] [address]Dr. Lizandro Hemphill IG # 0.03 10e3/ul Normal 0.00-0.03 [facility] Comment on above: Performed By: #### C BC ####[facility] Xavndtkneo172767 [address] [place], [place] [address]DrCiro Lizandro Hemphill IG % 0.4 % Normal 0.0-0.5 [facility] Comment on above: Performed By: #### C BC ####[facility] Dptirpzrql713367 [address] [place], [place] [address]DrCiro Lizandro Hemphill LYMPH # 0.9 103/ul Critically low 1.2-3.8 [facility] Comment on above: Performed By: #### C BC ####[facility] Hdnrkmrfct2904[address] [place], [place] [address]DrCiro Lizandro Hemphill Lymphocytes/100 WBC (Bld) 12.6 % Critically low 20.5-60.0 [facility] Comment on above: Performed By: #### C BC ####[facility] Qleuvgcrug952367 [address] [place], [place] [address]Dr. Lizandro Joby MANUAL DIFF REQ NO Normal [facility] Comment on above: Performed By: #### C BC ####[facility] Bmfmzenubf2037 [place] [phone]. Lizandro Joby MCH (RBC) [Entitic mass] 26.7 pg Normal 26.7-34.0 [facility] Comment on above: Performed By: #### C BC ####[facility] Tasugynmez7003 [place] [address]Dr. Lizandro Joby MCHC (RBC) [Mass/Vol] 32.3 g/dL Normal 29.9-35.2 [facility] Comment on above: Performed By: #### C BC ####[facility] Wuglwwejdd1412 [place] [address]Dr. Lizandro Hemphill MCV (RBC) [Entitic vol] 82.7 fL Normal 81.0-99.0 [facility] Comment on above: Performed By: #### C BC ####[facility] Nckfrtroyh512567 [address] [place], [place] [address]Dr. Lizandro Hemphill MONO # 0.7 103/ul Normal 0.3-0.8 [facility] Comment on above: Performed By: #### C BC ####[facility] Pwwuytnepq6250[address] [place], [place] [address]Dr. Lizandro Hemphill Monocytes/100 WBC (Bld) 10.2 % Normal 1.7-12.0 [facility] Comment on above: Performed By: #### C BC ####[facility] Ksiplryztw522367 [address] [place], [place] [address]DrCiro Hemphill NEUT # 5.4 103/ul Normal 1.4-6.5 [facility] Comment on above: Performed By: #### C BC ####[facility] Xjlyxgouqm954767 [address] [place], [place] [address]DrCiro Hemphill Neutrophils/100 WBC (Bld) 75.6 % Critically high 43.0-75.0 [facility] Comment on above: Performed By: #### C BC ####[facility] Alrehsaaoc544967 [address] [place], [place] [address]DrCiro Hemphill Platelet mean volume (Bld) [Entitic vol] 10.4 fL Normal 9.5-13.5 [facility] Comment on above: Performed By: #### C BC ####[facility] Wordimuogq6066 [place] [address]Dr. Lizandro Hemphill PLT 260 103/ul Normal 150-450 [facility] Comment on above: Performed By: #### C BC ####[facility] Rdumkbhbne4087 [place] [address]Dr. Lizandro Hemphill RBC 3.82 106/ul Critically low 4.20-5.40 [facility] Comment on above: Performed By: #### C BC ####[facility] Twhwdlxaqw2548 [place] [address]Dr. Lizandro Hemphill WBC 7.2 103/ul Normal 4.0-11.0 [facility] Comment on above: Performed By: #### C BC ####[facility] Rzsisisygt774167 [address] [place], [place] [address]Dr. Lizandro Hemphill ER URINE PROFILEon 3 Bilirubin Ql (U) Negative Normal NEGATIVE [facility] Comment on above: Performed By: #### E RUR ####[facility] Qsgnvsfpgx414567 [address] [place], [place] [address]Dr. Lizandro Hemphill Clarity (U) CLEAR Normal CLEAR [facility] Comment on above: Performed By: #### E RUR ####[facility] Pvijqllyct364267 [address] [place], [place] [address]Dr. Lizandro Hemphill Color (U) LT. YELLOW Normal YELLOW [facility] Comment on above: Performed By: #### E RUR ####[facility] Nsxfypzroj24[address] [place], [place] [address]Dr. Lizandro Hemphill ERUAHD A micrscopic examina tion will be performed if indicated. Normal [facility] Comment on above: Performed By: #### E RUR ####[facility] Kggqirwqam3439 [place] [address]Dr. Lizandro Hemphill Glucose Ql (U) Negative Normal NEGATIVE [facility] Comment on above: Performed By: #### E RUR ####[facility] Payrzdvydb4430 [place] [address]Dr. Lizandro Hemphill Hemoglobin Ql (U) Negative Normal NEGATIVE [facility] Comment on above: Performed By: #### E RUR ####[facility] Xmbbrfoums957267 [address] [place], [place] [address]Dr. Lizandro Hemphill Ketones Ql (U) Negative Normal NEGATIVE [facility] Comment on above: Performed By: #### E RUR ####[facility] Tjmfvjfshq668267 [address] [place], [place] [address]Dr. Lizandro Hemphill LEUKOCYTES Negative Normal NEGATIVE [facility] Comment on above: Performed By: #### E RUR ####[facility] Acotqqqpch986967 [address] [place], [place] [address]Dr. Lizandro Hemphill Nitrite Ql (U) Negative Normal NEGATIVE [facility] Comment on above: Performed By: #### E RUR ####[facility] Dqtwqvgcfq037367 [address] [place], [place] [address]Dr. Lizandro Hemphill pH (U) 6.5 [pH] Normal 5-9 [facility] Comment on above: Performed By: #### E RUR ####[facility] Fleusxggqs283267 [address] [place], [place] [address]Dr. Lizandro Hemphill SPEC GRAVITY <=1.005 Abnormal 1.005-<=1.025 [facility] Comment on above: Performed By: #### E RUR ####[facility] Fmewoisffm705867 [address] [place], [place] [address]Dr. Lizandro Joby UA PROTEIN Negative Normal NEGATIVE/ TRACE [facility] Comment on above: Performed By: #### E RUR ####[facility] Barkpsrqeb263067 [address] [place], [place] [address]Dr. Lizandro Joby UR MICRO IND NOT INDICATED Normal [facility] Comment on above: Performed By: #### E RUR ####[facility] Rudhplboft2411[address] [place], [place] [address]Dr. Lizandro Joby Urobilinogen Qn (U) 0.2 {Cassy'U}/dL Normal 0.2 - 1.0 [facility] Comment on above: Performed By: #### E RUR ####[facility] Kjvizbffxk2450 [place] [address]Dr. Shanikaannie Hemphill GI PANEL (PCR)on 05-28-2022 Adenovirus F 40/41 Not detected Normal NOT DETECTED [facility] Comment on above: Performed By: #### G IPANEL ####[facility] Vnppwuiqgx6513 [place] [address]Dr. Lizandro Hemphill Astrovirus Not detected Normal NOT DETECTED [facility] Comment on above: Performed By: #### G IPANEL ####[facility] Lgxngiccof8637[address] [place], [place] [address]Dr. Lizandro Hemphill C. Diff toxin A/B Not detected Normal NOT DETECTED [facility] Comment on above: Performed By: #### G IPANEL ####[facility] Ljvknqpuzl5174[address] [place], [place] [address]Dr. Lizandro Hemphill Campylobacter Not detected Normal NOT DETECTED [facility] Comment on above: Performed By: #### G IPANEL ####[facility] Ngtkvpvgvr606167 [address] [place], [place] [address]Dr. Lizandro Hempihll Cryptosporidium Not detected Normal NOT DETECTED [facility] Comment on above: Performed By: #### G IPANEL ####[facility] Xcypevjizq409967 [address] [place], [place] [address]Dr. Shanikaannie Joby Cyclos. Cayetanensis Not detected Normal NOT DETECTED [facility] Comment on above: Performed By: #### G IPANEL ####[facility] Nixukorjpi858267 [address] [place], [place] [address]Dr. Lizandro Hemphill E. Coli O157 Not Applicable Normal Not Applicable [facility] Comment on above: Performed By: #### G IPANEL ####[facility] Lllhranqit704767 [address] [place], [place] [address]Dr. Lizandro Hemphill E. histolytica Not detected Normal NOT DETECTED [facility] Comment on above: Performed By: #### G IPANEL ####[facility] Pyszgivelh400467 [address] [place], [place] [address]Dr. Lizandro Hemphill EAEC Not detected Normal NOT DETECTED [facility] Comment on above: Performed By: #### G IPANEL ####[facility] Vicaloqtoe3560 [place] [phone]. Lizandro Hemphill EIEC Not detected Normal NOT DETECTED [facility] Comment on above: Performed By: #### G IPANEL ####[facility] Yykupsqofr2578 [place] [address]Dr. Lizandro Hemphill EPEC Not detected Normal NOT DETECTED [facility] Comment on above: Performed By: #### G IPANEL ####[facility] Nmdsumyovs8347 [place] [address]Dr. Lizandro Hemphill ETEC Not detected Normal NOT DETECTED [facility] Comment on above: Performed By: #### G IPANEL ####[facility] Icfyioxnio085467 [address] [place], [place] [address]Dr. Lizandro Hemphill G. Lamblia Not detected Normal NOT DETECTED [facility] Comment on above: Performed By: #### G IPANEL ####[facility] Scwzznjsps1887[address] [place], [place] [address]Dr. Shanikaannie [facility]ED Normal [facility] Comment on above: Performed By: #### G IPANEL ####[facility] Phtizolphe503167 [address] [place], [place] [address]Dr. Lizandro [facility] HEADER GI PANEL BACTERIA Normal T [facility] Comment on above: Performed By: #### G IPANEL ####[facility] Vozcdsisud6604[address] [place], [place] [address]Dr. Lizandro [facility] ECOLI GI PANEL DIARRHEAGEN IC E.COLI / SHIGELLA Normal [facility] Comment on above: Performed By: #### G IPANEL ####[facility] Yjvkhrekkb3237[address] [place], [place] [address]Dr. [facility] HospitalNLHD INFO SEE BELOW Normal [facility] Comment on above: Result Comment: EAEC - Enteroaggregative E. Coli EPEC- Enteropathogenic E. Coli ETEC- Enterotoxigenic E. Coli lt/st STEC- Shigella-like toxin-producing E. Coli stx1/stx2 EIEC- Shigella/Enteroinvasive E. Coli Performed By: #### G IPANEL ####[facility] Kwofrmwiuq7781 [place] [address]Dr. Lizandro Hemphill GIPNLHD PARASITES GI PANEL PARASITES Normal [facility] Comment on above: Performed By: #### G IPANEL ####[facility] Athmxazgyk401667 [address] [place], [place] [address]Dr. Shanikaannie Hemphill GIPNLHD VIRUS GI PANEL VIRUSES Normal [facility] Comment on above: Performed By: #### G IPANEL ####[facility] Kyyigyrnpt6107[address] [place], [place] [address]Dr. Lizandro Hemphill Norovirus GI/GII Not detected Normal NOT DETECTED [facility] Comment on above: Performed By: #### G IPANEL ####[facility] Dangzlgefe8105[address] [place], [place] [address]Dr. Lizandro Hemphill P. Shigelloides Not detected Normal NOT DETECTED [facility] Comment on above: Performed By: #### G IPANEL ####[facility] Vrqwmhwquc9855[address] [place], [place] [address]Dr. Lizandro Hemphill Rotavirus A Not detected Normal NOT DETECTED [facility] Comment on above: Performed By: #### G IPANEL ####[facility] Rpbvyfagtj008167 [address] [place], [place] [address]Dr. Lizandro Hemphill Salmonella Not detected Normal NOT DETECTED [facility] Comment on above: Performed By: #### G IPANEL ####[facility] Hnffbvzncq0527[address] [place], [place] [address]Dr. Lizandro Hemphill Sapovirus Not detected Normal NOT DETECTED [facility] Comment on above: Performed By: #### G IPANEL ####[facility] Wurgcslpuf4212[address] [place], [place] [address]Dr. Lizandro Hemphill STEC Not detected Normal NOT DETECTED [facility] Comment on above: Performed By: #### G IPANEL ####[facility] Cwcigppwne950[address] [place], [place] [address]Dr. Lizandro Hemphill Vibrio Not detected Normal NOT DETECTED [facility] Comment on above: Performed By: #### G IPANEL ####[facility] Caywlpnwld6600[address] [place], [place] [address]Dr. Lizandro Hemphill Vibrio Cholera Not detected Normal NOT DETECTED [facility] Comment on above: Performed By: #### G IPANEL ####[facility] Ncteikiblx1366 [place] [address]Dr. Lizandro Hemphill Y. Enterocolitica Not detected Normal NOT DETECTED [facility] Comment on above: Performed By: #### G IPANEL ####[facility] [id number] [place], [place] [address]Dr. Lizandro Hemphill OCC BLD IMMUNOASSAYon 2022 OCCULT BLOOD Negative Normal NEGATIVE [facility] Comment on above: Performed By: #### O GREGORIO ####[facility] Dbwamalyiz509[address] [place], [place] [address]DrCiro Hemphill PROF 14(COMP METB)on 023 Albumin [Mass/Vol] 2.7 g/dL Critically low 3.4-5.0 [facility] Comment on above: Performed By: #### C MP ####[facility] Nkkyemiyrf519[address] [place], [place] [address]Dr. Lizandro Hemphill Albumin/Globulin [Mass ratio] 1.0 {ratio} Normal [facility] Comment on above: Performed By: #### C MP ####[facility] Rwurgzrlws5522[address] [place], [place] [address]Dr. Lizandro Hemphill ALP [Catalytic activity/Vol] 93 U/L Normal 46-116 [facility] Comment on above: Performed By: #### C MP ####[facility] Gskhzvsztc094[address] [place], [place] [address]Dr. Lizandro Hemphill ALT [Catalytic activity/Vol] 38 U/L Normal 14-59 [facility] Comment on above: Performed By: #### C MP ####[facility] Axqhbsaule7760[address] [place], [place] [address]Dr. Lizandro Hemphill Anion gap [Moles/Vol] 10.9 mmol/L Normal [facility] Comment on above: Performed By: #### C MP ####[facility] Ryojblzioa5501[address] [place], [place] [address]Dr. Lizandro Hemphill AST [Catalytic activity/Vol] 44 U/L Critically high 15-37 [facility] Comment on above: Performed By: #### C MP ####[facility] [address]peychugw[address] [place] [address]Dr. Lizandro Hemphill Bilirubin [Mass/Vol] 0.2 mg/dL Normal 0.2-1.0 [facility] Comment on above: Performed By: #### C MP ####[facility] [address]purhj[address] [place] [address]Dr. Lizandro Hemphill Calcium [Mass/Vol] 8.0 mg/dL Critically low 8.5-10.1 Th e [facility] Comment on above: Performed By: #### C MP ####[facility] Qapcndywsn2420[address] [place], [place] [address]Dr. Lizandro Hemphill Chloride [Moles/Vol] 107 mmol/L Normal 98-107 [facility] Comment on above: Performed By: #### C MP ####[facility] Huwvncgjys612967 [address] [place], [place] [address]Dr. Lizandro Hemphill CO2 [Moles/Vol] 27.4 mmol/L Normal 21.0-32.0 [facility] Comment on above: Performed By: #### C MP ####[facility] Xlkwwxttfr667[address] [place], [place] [address]Dr. Lizandro Hemphill Creatinine [Mass/Vol] 0.90 mg/dL Normal 0.55-1.02 [facility] Comment on above: Performed By: #### C MP ####[facility] Vmdaubiljf0165[address] [place], [place] [address]Dr. Lizandro Hemphill EGFR-AF CYMRAES >60 Normal >=60 [facility] Comment on above: Performed By: #### C MP ####[facility] Fqncdqsbig400767 [address] [place], [place] [address]Dr. Lizandro Joby EGFR-NON AF CYMRAES >60 Normal >=60 [facility] Comment on above: Performed By: #### C MP ####[facility] Tapuuilvbg405367 [address] [place], [place] [address]Dr. Shanikaannie Joby Globulin (S) [Mass/Vol] 2.6 g/dL Normal [facility] Comment on above: Performed By: #### C MP ####[facility] Lzzyircpau6085 [place] [address]Dr. Lizandro Hemphill Glucose [Mass/Vol] 131 mg/dL Critically high 74-106 [facility] Comment on above: Performed By: #### C MP ####[facility] Ebtxbttekr0172 [place] [address]Dr. Lizandro Hemphill Potassium [Moles/Vol] 3.3 mmol/L Critically low 3.5-5.1 [facility] Comment on above: Performed By: #### C MP ####[facility] Zfchgbxiat9114 [place] [address]Dr. Lizandro Hemphill Protein [Mass/Vol] 5.3 g/dL Critically low 6.4-8.2 [facility] Comment on above: Performed By: #### C MP ####[facility] Gizkzpmpxy567067 [address] [place], [place] [address]Dr. Lizandro Hemphill Sodium [Moles/Vol] 142 mmol/L Normal 136-145 [facility] Comment on above: Performed By: #### C MP ####[facility] Grkmawhcvb065167 [address] [place], [place] [address]Dr. Lizandro Joby Urea nitrogen [Mass/Vol] 12.0 mg/dL Normal 7.0-18.0 [facility] Comment on above: Performed By: #### C MP ####[facility] Qpplhzqakn516667 [address] [place], [place] [address]Dr. Shanikaannie Joby Urea nitrogen/Creatinin e [Mass ratio] 13.3 mg/mg Normal [facility] Comment on above: Performed By: #### C MP ####[facility] Fogrizxgpm462367 [address] [place], [place] [address]Dr. Lizandro Joby PROTIMEon 05-28-2022 INR Coag (PPP) [Relative time] 1.10 {INR} Normal [facility] Comment on above: Performed By: #### P T ####[facility] Slzinvmtip[address] [place] [address]Dr. Lizandro Hemphill INR GUIDELINES SEE BELOW Normal [facility] Comment on above: Result Comment: GUEVARA RED INR: 2.0 - 3.0 CONDITIONS NOT LISTED BELOW 2.5 - 3.5 FOR PROSTHETIC HEART VALVE REPLACEMENT 2.5 - 3.5 RECURRENT THROMBOSIS Performed By: #### P T ####[facility] Pbhgqjlgcg779367 [address] [place], [place] [address]Dr. Lizandro Hemphill PT Coag (PPP) [Time] 11.6 s Normal 9.0-11.6 [facility] Comment on above: Performed By: #### P T ####[facility] Fmpoydtltd0837[address] [place], [place] [address]Dr. Lizandro Hemphill XR ABD FLAT UP_PA Allen 05-28 XR ABD FLAT UP_PA CH Normal [facility] CBC AUTO DIFFon 05-27-2022 BASO # 0.1 103/ul Normal 0.0-0.1 [facility] Comment on above: Performed By: #### C BC ####[facility] Yqervkvemy356567 [address] [place], [place] [address]Dr. Lizandro Hemphill Basophils/100 WBC (Bld) 0.9 % Normal 0.2-2.0 [facility] Comment on above: Performed By: #### C BC ####[facility] Gpvtahbaob126767 [address] [place], [place] [address]DrCiro Hemphill EO # 0.0 103/ul Normal 0.0-0.7 [facility] Comment on above: Performed By: #### C BC ####[facility] Djmeropaxi288467 [address] [place], [place] [address]DrCiro Hemphill Eosinophils/100 WBC (Bld) 0.8 % Critically low 0.9-7.0 [facility] Comment on above: Performed By: #### C BC ####[facility] Itghpyvhuw102967 [address] [place], [place] [address]DrCiro Hemphill Erythrocyte distribution width (RBC) [Ratio] 18.6 % Critically high 11.0-15.0 [facility] Comment on above: Performed By: #### C BC ####[facility] Tvpyyvokll142567 [address] [place], [place] [address]DrCiro Hemphill Hematocrit (Bld) [Volume fraction] 33.0 % Critically low 36.0-48.0 [facility] Comment on above: Performed By: #### C BC ####[facility] Ziwzswlwzc2518 [place] [address]DrCiro Hemphill Hemoglobin (Bld) [Mass/Vol] 10.8 g/dL Critically low 12.0-16.0 [facility] Comment on above: Performed By: #### C BC ####[facility] Xaiowwnfyv4293 [place] [address]DrCiro Hemphill IG # 0.01 10e3/ul Normal 0.00-0.03 [facility] Comment on above: Performed By: #### C BC ####[facility] Ougfkovlww0147[address] [place], [place] [address]DrCiro Hemphill IG % 0.2 % Normal 0.0-0.5 [facility] Comment on above: Performed By: #### C BC ####[facility] Dpwseeocff812367 [address] [place], [place] [address]DrCiro Hemphill LYMPH # 0.9 103/ul Critically low 1.2-3.8 [facility] Comment on above: Performed By: #### C BC ####[facility] Najcrdcbck183[address] [place], [place] [address]DrCiro Hemphill Lymphocytes/100 WBC (Bld) 16.5 % Critically low 20.5-60.0 [facility] Comment on above: Performed By: #### C BC ####[facility] Ji[address]wcckls[address] [place] [address]DrCiro Hemphill MANUAL DIFF REQ NO Normal [facility] Comment on above: Performed By: #### C BC ####[facility] Wixxubtsil16[address] [place] [address]DrCiro Hemphill MCH (RBC) [Entitic mass] 27.3 pg Normal 26.7-34.0 [facility] Comment on above: Performed By: #### C BC ####[facility] Siuimfnziy1158 [place] [address]DrCiro Hemphill MCHC (RBC) [Mass/Vol] 32.7 g/dL Normal 29.9-35.2 [facility] Comment on above: Performed By: #### C BC ####[facility] Wfjudoadpn9898 [place] [address]DrCiro Hemphill MCV (RBC) [Entitic vol] 83.5 fL Normal 81.0-99.0 [facility] Comment on above: Performed By: #### C BC ####[facility] Lpgqyvdurt0862 [place] [address]DrCiro Hemphill MONO # 0.7 103/ul Normal 0.3-0.8 [facility] Comment on above: Performed By: #### C BC ####[facility] Ykbcmjlihq0508 [place] [address]DrCiro Hemphill Monocytes/100 WBC (Bld) 13.7 % Critically high 1.7-12.0 [facility] Comment on above: Performed By: #### C BC ####[facility] Jnvqwhkoae026067 [address] [place], [place] [address]DrCiro Hemphill NEUT # 3.6 103/ul Normal 1.4-6.5 [facility] Comment on above: Performed By: #### C BC ####[facility] Vlnqqvqfyf096867 [address] [place], [place] [address]DrCiro Hemphill Neutrophils/100 WBC (Bld) 67.9 % Normal 43.0-75.0 [facility] Comment on above: Performed By: #### C BC ####[facility] Ucolislaef4576[address] [place], [place] [address]DrCiro Hemphill Platelet mean volume (Bld) [Entitic vol] 10.4 fL Normal 9.5-13.5 [facility] Comment on above: Performed By: #### C BC ####[facility] Ohvoisptst620667 [address] [place], [place] [address]DrCiro Hemphill PLT 270 103/ul Normal 150-450 [facility] Comment on above: Performed By: #### C BC ####[facility] Iznvsedeeh[address] [place], [place] [address]DrCiro Hemphill RBC 3.95 106/ul Critically low 4.20-5.40 [facility] Comment on above: Performed By: #### C BC ####[facility] Gksseuswog[address] [place] [id number]. Lizandro Hemphill WBC 5.3 103/ul Normal 4.0-11.0 [facility] Comment on above: Performed By: #### C BC ####[facility] Bkanhdzqra5434 [place] [id number]. Lizandro Hemphill BASO # 0.1 103/ul Normal 0.0-0.1 [facility] Comment on above: Performed By: #### C BC ####[facility] Lfdzvwynxx7249 [place] [id number]. Lizandro Hemphill Basophils/100 WBC (Bld) 1.0 % Normal 0.2-2.0 [facility] Comment on above: Performed By: #### C BC ####[facility] Eisconyavi7236[address] [place], [place] [address]Dr. Lizandro Hemphill EO # 0.1 103/ul Normal 0.0-0.7 [facility] Comment on above: Performed By: #### C BC ####[facility] Usyvvjgans[address] [place], [place] [address]Dr. Lizandro Hemphill Eosinophils/100 WBC (Bld) 1.0 % Normal 0.9-7.0 [facility] Comment on above: Performed By: #### C BC ####[facility] Eohewidtvh959[address] [place], [place] [address]Dr. Lizandro Hemphill Erythrocyte distribution width (RBC) [Ratio] 20.0 % Critically high 11.0-15.0 [facility] Comment on above: Performed By: #### C BC ####[facility] Iuoboazvci[address] [place], [place] [address]Dr. Lizandro Hemphill Hematocrit (Bld) [Volume fraction] 24.0 % Critically low 36.0-48.0 [facility] Comment on above: Performed By: #### C BC ####[facility] Xdfrkiobqr86[address] [place], [place] [address]Dr. Lizandro Hemphill Hemoglobin (Bld) [Mass/Vol] 7.4 g/dL Critically low 12.0-16.0 [facility] Comment on above: Performed By: #### C BC ####[facility] Uiutfifmka5236 [place] [address]DrCiro Hemphill IG # 0.01 10e3/ul Normal 0.00-0.03 [facility] Comment on above: Performed By: #### C BC ####[facility] Cegvlbreer9066 [place] [address]DrCiro Hemphill IG % 0.2 % Normal 0.0-0.5 [facility] Comment on above: Performed By: #### C BC ####[facility] Deffzyuwvk3918 [place] [address]DrCiro Hemphill LYMPH # 1.0 103/ul Critically low 1.2-3.8 [facility] Comment on above: Performed By: #### C BC ####[facility] Wijgnitdux8096 [place] [address]DrCiro Hemphill Lymphocytes/100 WBC (Bld) 20.3 % Critically low 20.5-60.0 [facility] Comment on above: Performed By: #### C BC ####[facility] Rxnuctltzp3333 [place] [address]DrCiro Hemphill MANUAL DIFF REQ NO Normal [facility] Comment on above: Performed By: #### C BC ####[facility] Igqakwpnwb8305 [place] [address]DrCiro Hemphill MCH (RBC) [Entitic mass] 25.3 pg Critically low 26.7-34.0 [facility] Comment on above: Performed By: #### C BC ####[facility] Xedmbwgfwd1917 [place] [address]DrCiro Hemphill MCHC (RBC) [Mass/Vol] 30.8 g/dL Normal 29.9-35.2 [facility] Comment on above: Performed By: #### C BC ####[facility] Asfvihxdio3139 [place] [address]DrCiro Hemphill MCV (RBC) [Entitic vol] 81.9 fL Normal 81.0-99.0 [facility] Comment on above: Performed By: #### C BC ####[facility] Xjnwhzmegn9540 [place] [address]DrCiro Lizandro Hemphill MONO # 0.6 103/ul Normal 0.3-0.8 [facility] Comment on above: Performed By: #### C BC ####[facility] Sebobqxevg0535 [place] [address]DrCiro Lizandro Joby Monocytes/100 WBC (Bld) 12.8 % Critically high 1.7-12.0 [facility] Comment on above: Performed By: #### C BC ####[facility] Kznvarixrm017167 [address] [place], [place] [address]DrCiro Lizandro Hemphill NEUT # 3.2 103/ul Normal 1.4-6.5 [facility] Comment on above: Performed By: #### C BC ####[facility] Jycdqugzft2989 [place] [address]Dr. Lizandro Joby Neutrophils/100 WBC (Bld) 64.7 % Normal 43.0-75.0 [facility] Comment on above: Performed By: #### C BC ####[facility] Eesxeewgwa889667 [address] [place], [place] [address]DrCiro Lizandro Joby Platelet mean volume (Bld) [Entitic vol] 10.2 fL Normal 9.5-13.5 [facility] Comment on above: Performed By: #### C BC ####[facility] Fbfkxqwneu418967 [address] [place], [place] [address]Dr. Lizandro Joby PLT 301 103/ul Normal 150-450 [facility] Comment on above: Performed By: #### C BC ####[facility] Wetcrkmrvc8275 [place] [phone] Hemphill RBC 2.93 106/ul Critically low 4.20-5.40 [facility] Comment on above: Performed By: #### C BC ####[facility] Synkxdbhar7382 [place] [phone] Hemphill WBC 4.9 103/ul Normal 4.0-11.0 [facility] Comment on above: Performed By: #### C BC ####[facility] Zhjyvlhfbb6671 [place] [address]Dr. Lizandro Hemphill BASO # 0.0 103/ul Normal 0.0-0.1 [facility] Comment on above: Performed By: #### C BC ####[facility] Ogxxoclqad063367 [address] [place], [place] [address]Dr. Lizandro Hemphill Basophils/100 WBC (Bld) 0.9 % Normal 0.2-2.0 [facility] Comment on above: Performed By: #### C BC ####[facility] Ymqfflshvl868367 [address] [place], [place] [address]Dr. Lizandro Hemphill EO # 0.0 103/ul Normal 0.0-0.7 [facility] Comment on above: Performed By: #### C BC ####[facility] Wqarirugiz8632[address] [place], [place] [address]Dr. Lizandro Hemphill Eosinophils/100 WBC (Bld) 0.7 % Critically low 0.9-7.0 [facility] Comment on above: Performed By: #### C BC ####[facility] Vdyvlvgwbm498267 [address] [place], [place] [address]Dr. Lizandro Hemphill Erythrocyte distribution width (RBC) [Ratio] 20.1 % Critically high 11.0-15.0 [facility] Comment on above: Performed By: #### C BC ####[facility] Pbvqgkeltd069267 [address] [place], [place] [address]Dr. Lizandro Hemphill Hematocrit (Bld) [Volume fraction] 23.6 % Critically low 36.0-48.0 [facility] Comment on above: Performed By: #### C BC ####[facility] Sanbqqmadt926367 [address] [place], [place] [address]Dr. Lizandro Hemphill Hemoglobin (Bld) [Mass/Vol] 7.3 g/dL Critically low 12.0-16.0 [facility] Comment on above: Result Comment: Flui ds given Performed By: #### C BC ####[facility] Vmjeirfkvz6548[address] [place], [place] [address]DrCiro Hemphill IG # 0.01 10e3/ul Normal 0.00-0.03 [facility] Comment on above: Performed By: #### C BC ####[facility] Fpllcsxyex0003 [place] [address]DrCiro Hemphill IG % 0.2 % Normal 0.0-0.5 [facility] Comment on above: Performed By: #### C BC ####[facility] Hseadzqiuc4887 [place] [address]DrCiro Hemphill LYMPH # 1.0 103/ul Critically low 1.2-3.8 [facility] Comment on above: Performed By: #### C BC ####[facility] Ffxhjcuher7264 [place] [address]DrCiro Hemphill Lymphocytes/100 WBC (Bld) 22.8 % Normal 20.5-60.0 [facility] Comment on above: Performed By: #### C BC ####[facility] Qontxahcex696867 [address] [place], [place] [address]DrCiro Hemphill MANUAL DIFF REQ NO Normal [facility] Comment on above: Performed By: #### C BC ####[facility] Xwsmpifjpa9690 [place] [address]DrCiro Hemphill MCH (RBC) [Entitic mass] 25.3 pg Critically low 26.7-34.0 [facility] Comment on above: Performed By: #### C BC ####[facility] Vsbqaszrgm5009 [place] [address]DrCiro Hemphill MCHC (RBC) [Mass/Vol] 30.9 g/dL Normal 29.9-35.2 [facility] Comment on above: Performed By: #### C BC ####[facility] Hiuyhyzeew213167 [address] [place], [place] [address]DrCiro Hemphill MCV (RBC) [Entitic vol] 81.9 fL Normal 81.0-99.0 [facility] Comment on above: Performed By: #### C BC ####[facility] Ynrxemilne407367 [address] [place], [place] [address]DrCiro Hemphill MONO # 0.6 103/ul Normal 0.3-0.8 [facility] Comment on above: Performed By: #### C BC ####[facility] Fkuqmftlwx1882 [place] [address]Dr. Lizandro Hemphill Monocytes/100 WBC (Bld) 12.3 % Critically high 1.7-12.0 [facility] Comment on above: Performed By: #### C BC ####[facility] Kaiscdrmai0866 [place] [address]Dr. Lizandro Hemphill NEUT # 2.9 103/ul Normal 1.4-6.5 [facility] Comment on above: Performed By: #### C BC ####[facility] Wufbnvjywm7306 [place] [address]Dr. Lizandro Hemphill Neutrophils/100 WBC (Bld) 63.1 % Normal 43.0-75.0 [facility] Comment on above: Performed By: #### C BC ####[facility] Wjikebseux3923[address] [place], [place] [address]Dr. Lizandro Hemphill Platelet mean volume (Bld) [Entitic vol] 10.6 fL Normal 9.5-13.5 [facility] Comment on above: Performed By: #### C BC ####[facility] Lktzdaqsyc9[address] [place], [place] [address]Dr. Lizandro Hemphill PLT 305 103/ul Normal 150-450 [facility] Comment on above: Performed By: #### C BC ####[facility] Kiunhkbibk495[address] [place], [place] [address]Dr. Lizandro Hemphill RBC 2.88 106/ul Critically low 4.20-5.40 [facility] Comment on above: Performed By: #### C BC ####[facility] Hedymeaplh001467 [address] [place], [place] [address]Dr. Lizandro Hemphill WBC 4.6 103/ul Normal 4.0-11.0 [facility] Comment on above: Performed By: #### C BC ####[facility] Uoqobtawdo3539[address] [place], [place] [address]DrCiro Lizandro Joby PROF 14(COMP METB)on 023 Albumin [Mass/Vol] 2.7 g/dL Critically low 3.4-5.0 [facility] Comment on above: Performed By: #### C MP ####[facility] Midgybklzf3161 [place] [address]Dr. Lizandro Hemphill Albumin/Globulin [Mass ratio] 1.0 {ratio} Normal [facility] Comment on above: Performed By: #### C MP ####[facility] Xrugaiosnp3588 [place] [address]Dr. Lizandro Hemphill ALP [Catalytic activity/Vol] 75 U/L Normal 46-116 [facility] Comment on above: Performed By: #### C MP ####[facility] Qlmxgacvqz1035[address] [place], [place] [address]Dr. Lizandro Hemphill ALT [Catalytic activity/Vol] 11 U/L Critically low 14-59 [facility] Comment on above: Performed By: #### C MP ####[facility] Clbwvyayuh588267 [address] [place], [place] [address]Dr. Lizandro Hemphill Anion gap [Moles/Vol] 13.9 mmol/L Normal [facility] Comment on above: Performed By: #### C MP ####[facility] Fjrgxgbgkm675367 [address] [place], [place] [address]Dr. Lizandro Hemphill AST [Catalytic activity/Vol] 23 U/L Normal 15-37 [facility] Comment on above: Performed By: #### C MP ####[facility] Lboxjgjcfg449[address] [place], [place] [address]Dr. Lizandro Hemphill Bilirubin [Mass/Vol] 0.5 mg/dL Normal 0.2-1.0 [facility] Comment on above: Performed By: #### C MP ####[facility] Qephbyonxy3277[address] [place], [place] [address]Dr. Lizandro Hemphill Calcium [Mass/Vol] 8.3 mg/dL Critically low 8.5-10.1 [facility] Comment on above: Performed By: #### C MP ####[facility] Nztqxvrzha083367 [address] [place], [place] [address]Dr. Lizandro Hemphill Chloride [Moles/Vol] 107 mmol/L Normal 98-107 [facility] Comment on above: Performed By: #### C MP ####[facility] Wxegrsmvpx0006 [place] [address]Dr. Lizandro Hemphill CO2 [Moles/Vol] 26.4 mmol/L Normal 21.0-32.0 [facility] Comment on above: Performed By: #### C MP ####[facility] Sczvjphshn2601 [place] [address]Dr. Lizandro Hemphill Creatinine [Mass/Vol] 1.47 mg/dL Critically high 0.55-1.02 [facility] Comment on above: Performed By: #### C MP ####[facility] Jgjenjbfsd836167 [address] [place], [place] [address]Dr. Lizandro Hemphill EGFR-AF CYMRAES 44 mL/min/1.73m2 Critically low >=60 [facility] Comment on above: Performed By: #### C MP ####[facility] Rosqqtppdh739[address] [place], [place] [address]Dr. Lizandro Hemphill EGFR-NON AF CYMRAES 36 mL/min/1.73m2 Critically low >=60 [facility] Comment on above: Performed By: #### C MP ####[facility] Nqylifoxqf050[address] [place], [place] [address]Dr. Lizandro Hemphill Globulin (S) [Mass/Vol] 2.8 g/dL Normal [facility] Comment on above: Performed By: #### C MP ####[facility] Pfmvvozgyh5180 [place] [address]Dr. Lizandro Hemphill Glucose [Mass/Vol] 122 mg/dL Critically high 74-106 [facility] Comment on above: Performed By: #### C MP ####[facility] Qksvkcweke6[address] [place], [place] [address]Dr. Lizandro Hemphill Potassium [Moles/Vol] 3.3 mmol/L Critically low 3.5-5.1 [facility] Comment on above: Performed By: #### C MP ####[facility] Mzezglflws9[address] [place], [place] [address]Dr. Lizandro Hemphill Protein [Mass/Vol] 5.5 g/dL Critically low 6.4-8.2 [facility] Comment on above: Performed By: #### C MP ####[facility] [address]uksjowxqo[address] [place] [address]Dr. Lizandro Hemphill Sodium [Moles/Vol] 144 mmol/L Normal 136-145 [facility] Comment on above: Performed By: #### C MP ####[facility] Vivbwznoea017[address] [place], [place] [address]Dr. Lizandro Hemphill Urea nitrogen [Mass/Vol] 19.0 mg/dL Critically high 7.0-18.0 [facility] Comment on above: Performed By: #### C MP ####[facility] Didlhmhrox675667 [address] [place], [place] [address]Dr. Lizandro Hemphill Urea nitrogen/Creatinin e [Mass ratio] 12.9 mg/mg Normal [facility] Comment on above: Performed By: #### C MP ####[facility] Zznflzndlh35[address] [place], [place] [address]Dr. Lizandro Hemphill PROTIMEon 05-27-2022 INR Coag (PPP) [Relative time] 1.18 {INR} Normal [facility] Comment on above: Performed By: #### P T ####[facility] Uvltsqkatv4[address] [place], [place] [address]Dr. Lizandro Hemphill INR GUIDELINES SEE BELOW Normal [facility] Comment on above: Result Comment: GUEVARA RED INR: 2.0 - 3.0 CONDITIONS NOT LISTED BELOW 2.5 - 3.5 FOR PROSTHETIC HEART VALVE REPLACEMENT 2.5 - 3.5 RECURRENT THROMBOSIS Performed By: #### P T ####[facility] Azrlmmkkye1054[address] [place], [place] [address]Dr. Lizandro Hemphill PT Coag (PPP) [Time] 12.4 s Critically high 9.0-11.6 [facility] Comment on above: Performed By: #### P T ####[facility] Okfvfypuqh769[address] [place], [place] [address]Dr. Lizandro Hemphill TYPE AND SCREENon 05-27-2022 TYPE AND SCREEN Negative Normal [facility] Comment on above: Performed By: #### T NS ####[facility] Subkckzgdg[address] [place] [address]Dr. Lizandro Joby CBC AUTO DIFFon 05-26-2022 BASO # 0.1 103/ul Normal 0.0-0.1 [facility] Comment on above: Performed By: #### C BC ####[facility] Vskpmpkqaq4711 [place] [address]Dr. Shanikaannie Hemphill Basophils/100 WBC (Bld) 0.6 % Normal 0.2-2.0 [facility] Comment on above: Performed By: #### C BC ####[facility] Hekmdirtkd923067 [address] [place], [place] [address]Dr. Shanikaannie Hemphill EO # 0.0 103/ul Normal 0.0-0.7 [facility] Comment on above: Performed By: #### C BC ####[facility] Lpnazcztks50[address] [place], [place] [address]Dr. Shanikaannie Hemphill Eosinophils/100 WBC (Bld) 0.2 % Critically low 0.9-7.0 [facility] Comment on above: Performed By: #### C BC ####[facility] Hdinjnlsnv037367 [address] [place], [place] [address]Dr. Lizandro Joby Erythrocyte distribution width (RBC) [Ratio] 20.1 % Critically high 11.0-15.0 [facility] Comment on above: Performed By: #### C BC ####[facility] Wawlhwjofp[address] [place], [place] [address]Dr. Lizandro Joby Hematocrit (Bld) [Volume fraction] 31.2 % Critically low 36.0-48.0 [facility] Comment on above: Performed By: #### C BC ####[facility] Rpzpskcjmh78[address] [place], [place] [address]Dr. Shanikaannie Hemphill Hemoglobin (Bld) [Mass/Vol] 9.8 g/dL Critically low 12.0-16.0 [facility] Comment on above: Performed By: #### C BC ####[facility] Imnplygzua4836[address] [place], [place] [address]Dr. Lizandro Hemphill IG # 0.03 10e3/ul Normal 0.00-0.03 [facility] Comment on above: Performed By: #### C BC ####[facility] Ffgujvygsn8345 [place] [address]DrCiro Lizandro Hemphill IG % 0.3 % Normal 0.0-0.5 [facility] Comment on above: Performed By: #### C BC ####[facility] Cxnxcyzony9700 [place] [address]DrCiro Lizandro Joby LYMPH # 1.4 103/ul Normal 1.2-3.8 [facility] Comment on above: Performed By: #### C BC ####[facility] Jaebazfnjz9614 [place] [address]DrCiro Shanikaannie Hemphill Lymphocytes/100 WBC (Bld) 15.1 % Critically low 20.5-60.0 [facility] Comment on above: Performed By: #### C BC ####[facility] Fpqwhiwbre0482 [place] [address]DrCiro Shanikaannie Hemphill MANUAL DIFF REQ NO Normal [facility] Comment on above: Performed By: #### C BC ####[facility] Besfqldrmn1374 [place] [address]DrCiro Lizandro Joby MCH (RBC) [Entitic mass] 25.1 pg Critically low 26.7-34.0 [facility] Comment on above: Performed By: #### C BC ####[facility] Ybbxykopop7520 [place] [address]DrCiro Lizandro Joby MCHC (RBC) [Mass/Vol] 31.4 g/dL Normal 29.9-35.2 [facility] Comment on above: Performed By: #### C BC ####[facility] Angwrgssti9507 [place] [id number] Lizandro Joby MCV (RBC) [Entitic vol] 79.8 fL Critically low 81.0-99.0 [facility] Comment on above: Performed By: #### C BC ####[facility] Xmkpcrupzo4406 [place] [address]DrCiro Hemphill MONO # 1.0 103/ul Critically high 0.3-0.8 [facility] Comment on above: Performed By: #### C BC ####[facility] Tublmhvoob0943 [place] [address]Dr. Lizandro Hemphill Monocytes/100 WBC (Bld) 11.5 % Normal 1.7-12.0 [facility] Comment on above: Performed By: #### C BC ####[facility] Veigaynqjp6264 [place] [address]Dr. Lizandro Hemphill NEUT # 6.5 103/ul Normal 1.4-6.5 [facility] Comment on above: Performed By: #### C BC ####[facility] Hqlfnnknuy8469 [place] [address]Dr. Lizandro Hemphill Neutrophils/100 WBC (Bld) 72.3 % Normal 43.0-75.0 [facility] Comment on above: Performed By: #### C BC ####[facility] Uirgpdfurp4105 [place] [address]Dr. iLzandro Hemphill Platelet mean volume (Bld) [Entitic vol] 10.2 fL Normal 9.5-13.5 [facility] Comment on above: Performed By: #### C BC ####[facility] Jtjeoqsets9026 [place] [address]Dr. Lizandro Hemphill PLT 395 103/ul Normal 150-450 [facility] Comment on above: Performed By: #### C BC ####[facility] Hpufhuyjjm5245 [place] [address]Dr. Lizandro Hemphill RBC 3.91 106/ul Critically low 4.20-5.40 [facility] Comment on above: Performed By: #### C BC ####[facility] Bsfgxspjgo6223 [place] [id number]. Lizandro Hemphill WBC 9.0 103/ul Normal 4.0-11.0 [facility] Comment on above: Performed By: #### C BC ####[facility] Jsnvshbxoi5530 [place] [phone]. Lizandro Hemphill CPKon 05-26-2022 CK [Catalytic activity/Vol] 260 U/L Critically high 26-192 [facility] Comment on above: Performed By: #### L IPA, CMP, CK, HSTROPN ####[facility] Cqlsabyeep3994 [place] [id number]. Lizandro Hemphill Covid-19 PCR ([facility])on SARS-CoV-2 (COVID-19) RNA VERITO+probe Ql (Unsp spec) Not detected Normal NOT DETECTED [facility] Comment on above: Result Comment: When [...] for this test is supported by the Editor In Chief of Health and Human Service's declaration that [...] be used). Performed By: #### C VDTBH ####[facility] Tmewkqyeql7[address] [place] [address]Dr. Lizandro Hemphill LIPASEon 05-26-2022 Lipase [Catalytic activity/Vol] 258.0 U/L Normal 73.0-393.0 [facility] Comment on above: Performed By: #### L IPA, CMP, CK, HSTROPN ####[facility] Zkjidcflvl2820 [place] [phone]. Lizandro Hemphill PH VENOUS BLOODon 05-26-2022 PCO2 VENOUS 28.2 mmHg Critically low 40.0-52.0 [facility] Comment on above: Performed By: #### P HVEN ####[facility] Lnzhzutmpb8996 [place] [address]Dr. Yilan Hemphill pH VENOUS 7.554 Critically high 7.330-7.430 [facility] Comment on above: Performed By: #### P HVEN ####[facility] Wkxkbnpxph3656 [place] [address]Dr. Lizandro Hemphill PROF 14(COMP METB)on 023 Albumin [Mass/Vol] 3.8 g/dL Normal 3.4-5.0 [facility] Comment on above: Performed By: #### L IPA, CMP, CK, HSTROPN ####[facility] Zkbgmxmowf5255 [place] [address]Dr. Lizandro Hemphill Albumin/Globulin [Mass ratio] 1.0 {ratio} Normal [facility] Comment on above: Performed By: #### L IPA, CMP, CK, HSTROPN ####[facility] Gfmrzhvvtt0169 [place] [address]Dr. Lizandro Hemphill ALP [Catalytic activity/Vol] 115 U/L Normal 46-116 [facility] Comment on above: Performed By: #### L IPA, CMP, CK, HSTROPN ####[facility] Baucfgohxx7229 [place] [address]Dr. Lizandro Hemphill ALT [Catalytic activity/Vol] 36 U/L Normal 14-59 [facility] Comment on above: Performed By: #### L IPA, CMP, CK, HSTROPN ####[facility] Ezmfcrrcsh0214 [place] [address]Dr. Lizandro Hemphill Anion gap [Moles/Vol] 15.9 mmol/L Normal [facility] Comment on above: Performed By: #### L IPA, CMP, CK, HSTROPN ####[facility] Dlukvzdjky5401 [place] [address]Dr. Lizandro Hemphill AST [Catalytic activity/Vol] 46 U/L Critically high 15-37 [facility] Comment on above: Performed By: #### L IPA, CMP, CK, HSTROPN ####[facility] Jjjuujigqy0258 [place] [address]Dr. Lizandro Hemphill Bilirubin [Mass/Vol] 0.4 mg/dL Normal 0.2-1.0 [facility] Comment on above: Performed By: #### L IPA, CMP, CK, HSTROPN ####[facility] Uarrqzmich6051 [place] [address]Dr. Lizandro Hemphill Calcium [Mass/Vol] 9.5 mg/dL Normal 8.5-10.1 [facility] Comment on above: Performed By: #### L IPA, CMP, CK, HSTROPN ####[facility] Doboitucfe2426 [place] [address]Dr. Lizandro Hemphill Chloride [Moles/Vol] 104 mmol/L Normal 98-107 [facility] Comment on above: Performed By: #### L IPA, CMP, CK, HSTROPN ####[facility] Ywaplttryx[address] [place], [place] [address]Dr. Lizandro Hemphill CO2 [Moles/Vol] 24.7 mmol/L Normal 21.0-32.0 [facility] Comment on above: Performed By: #### L IPA, CMP, CK, HSTROPN ####[facility] Mzgczmgtcr[address] [place], [place] [address]Dr. Lizandro Hemphill Creatinine [Mass/Vol] 1.12 mg/dL Critically high 0.55-1.02 [facility] Comment on above: Performed By: #### L IPA, CMP, CK, HSTROPN ####[facility] Kkwhmgxodg2502 [place] [address]Dr. Lizandro Hemphill EGFR-AF CYMRAES 60 mL/min/1.73m2 Normal >=60 [facility] Comment on above: Performed By: #### L IPA, CMP, CK, HSTROPN ####[facility] Spouykwjbx9425 [place] [address]Dr. Lizandro Hemphill EGFR-NON AF CYMRAES 50 mL/min/1.73m2 Critically low >=60 [facility] Comment on above: Performed By: #### L IPA, CMP, CK, HSTROPN ####[facility] Swpdfklidf9743 [place] [address]Dr. Lizandro Hemphill Globulin (S) [Mass/Vol] 3.8 g/dL Normal [facility] Comment on above: Performed By: #### L IPA, CMP, CK, HSTROPN ####[facility] Rmsuqtvwfm3591 [place] [address]Dr. Lizandro Hemphill Glucose [Mass/Vol] 92 mg/dL Normal 74-106 [facility] Comment on above: Performed By: #### L IPA, CMP, CK, HSTROPN ####[facility] Ylwjnrzfxu5220 [place] [address]Dr. Lizandro Hemphill Potassium [Moles/Vol] 3.6 mmol/L Normal 3.5-5.1 [facility] Comment on above: Performed By: #### L IPA, CMP, CK, HSTROPN ####[facility] Nfnelessmd70[address] [place], [place] [address]Dr. Lizandro Hemphill Protein [Mass/Vol] 7.6 g/dL Normal 6.4-8.2 [facility] Comment on above: Performed By: #### L IPA, CMP, CK, HSTROPN ####[facility] [address]fifyavqgd08[address] [place], [place] [address]Dr. Lizandro Hemphill Sodium [Moles/Vol] 141 mmol/L Normal 136-145 [facility] Comment on above: Performed By: #### L IPA, CMP, CK, HSTROPN ####[facility] Wicoyfftwy1026 [place] [address]Dr. Lizandro Hemphill Urea nitrogen [Mass/Vol] 22.0 mg/dL Critically high 7.0-18.0 [facility] Comment on above: Performed By: #### L IPA, CMP, CK, HSTROPN ####[facility] Xpleitxahz3684 [place] [address]Dr. Lizandro Hemphill Urea nitrogen/Creatinin e [Mass ratio] 19.6 mg/mg Normal [facility] Comment on above: Performed By: #### L IPA, CMP, CK, HSTROPN ####[facility] Sgnfoovajg74[address] [place], [place] [address]Dr. Lizandro Hemphill TROPONIN, HIGH SENSITIVITYon 05-26-2022 HSTROP 8.9 pg/mL Normal 4.0-51.3 [facility] Comment on above: Result Comment: CUT- OFF POINTS HAVE BEEN ESTABLISHED BASED ON THE FOURTH UNIVERSAL DEFINITIONS OF MYOCARDIALINFARCTION. THE UPPER REFERENCE LIMIT (URL) OF TROPONIN, DEFINED THE 99TH PERCENTILE OFcTnI DISTRIBUTION IN A REFERENCE POPULATION, HAS BEEN CONFIRMED THE DECISION THRESHOLDFOR ND DIAGNOSIS. Performed By: #### L IPA, CMP, CK, HSTROPN ####[facility] Vhitopggdh2962 [place] [address]Dr. Lizandro Hemphill XR CHEST 1 Von 05-26-2022 XR CHEST 1 V Normal [facility] TROPONIN, HIGH SENSITIVITYon 05-23-2022 HSTROP 9.8 pg/mL Normal 4.0-51.3 [facility] Comment on above: Result Comment: CUT- OFF POINTS HAVE BEEN ESTABLISHED BASED ON THE FOURTH UNIVERSAL DEFINITIONS OF MYOCARDIALINFARCTION. THE UPPER REFERENCE LIMIT (URL) OF TROPONIN, DEFINED THE 99TH PERCENTILE OFcTnI DISTRIBUTION IN A REFERENCE POPULATION, HAS BEEN CONFIRMED THE DECISION THRESHOLDFOR ND DIAGNOSIS. Performed By: #### H STROPN ####[facility] Xrcczydkst0652 [place] [address]Dr. Lizandro Hemphill CBC AUTO DIFFon 05-22-2022 BASO # 0.1 103/ul Normal 0.0-0.1 [facility] Comment on above: Performed By: #### C BC ####[facility] Riigxkrkmz4490 [place] [address]Dr. Shanikaannie Hemphill Basophils/100 WBC (Bld) 0.9 % Normal 0.2-2.0 [facility] Comment on above: Performed By: #### C BC ####[facility] Cslxfnkrma3765 [place] [phone]. Lizandro Hemphill EO # 0.0 103/ul Normal 0.0-0.7 [facility] Comment on above: Performed By: #### C BC ####[facility] Guirhhzdyy7553 [place] [address]Dr. Lizandro Joby Eosinophils/100 WBC (Bld) 0.1 % Critically low 0.9-7.0 [facility] Comment on above: Performed By: #### C BC ####[facility] Idnstfhhpc5133 [place] [address]Dr. Lizandro Hemphill Erythrocyte distribution width (RBC) [Ratio] 19.3 % Critically high 11.0-15.0 [facility] Comment on above: Performed By: #### C BC ####[facility] Kjatsmhjld1949 [place] [address]Dr. Lizandro Hemphill Hematocrit (Bld) [Volume fraction] 31.1 % Critically low 36.0-48.0 [facility] Comment on above: Performed By: #### C BC ####[facility] Dbpvibetpj60[address] [place], [place] [address]Dr. Lizandro Hemphill Hemoglobin (Bld) [Mass/Vol] 9.8 g/dL Critically low 12.0-16.0 [facility] Comment on above: Performed By: #### C BC ####[facility] Qgonucfczz001867 [address] [place], [place] [address]DrCiro Lizandro Hemphill IG # 0.04 10e3/ul Critically high 0.00-0.03 [facility] Comment on above: Performed By: #### C BC ####[facility] Unwfmibymj099[address] [place], [place] [address]DrCiro Lizandro Hemphill IG % 0.4 % Normal 0.0-0.5 [facility] Comment on above: Performed By: #### C BC ####[facility] Zlaozzrmvs48[address] [place], [place] [address]DrCiro Lizandro Hemphill LYMPH # 1.5 103/ul Normal 1.2-3.8 [facility] Comment on above: Performed By: #### C BC ####[facility] Gyzunwpbgq6274[address] [place], [place] [address]DrCiro Lizandro Hemphill Lymphocytes/100 WBC (Bld) 15.1 % Critically low 20.5-60.0 [facility] Comment on above: Performed By: #### C BC ####[facility] Txtexepzmy8723[address] [place], [place] [address]DrCiro Lizandro Joby MANUAL DIFF REQ NO Normal [facility] Comment on above: Performed By: #### C BC ####[facility] Drsoovwfgy0937 [place] [address]Dr. Lizandro Hemphill MCH (RBC) [Entitic mass] 24.7 pg Critically low 26.7-34.0 [facility] Comment on above: Performed By: #### C BC ####[facility] Goxzsbjiyh7820 [place] [address]Dr. Lizandro Hemphill MCHC (RBC) [Mass/Vol] 31.5 g/dL Normal 29.9-35.2 [facility] Comment on above: Performed By: #### C BC ####[facility] Ddgljernfj0633 [place] [address]DrCiro Hemphill MCV (RBC) [Entitic vol] 78.3 fL Critically low 81.0-99.0 [facility] Comment on above: Performed By: #### C BC ####[facility] Yzmgstmxvc740[address] [place], [place] [address]DrCiro Hemphill MONO # 1.1 103/ul Critically high 0.3-0.8 [facility] Comment on above: Performed By: #### C BC ####[facility] Rhmskoehia46[address] [place], [place] [address]DrCiro Hemphill Monocytes/100 WBC (Bld) 11.4 % Normal 1.7-12.0 [facility] Comment on above: Performed By: #### C BC ####[facility] Wciuaotqre5[address] [place], [place] [address]DrCiro Hemphill NEUT # 7.1 103/ul Critically high 1.4-6.5 [facility] Comment on above: Performed By: #### C BC ####[facility] Ohpjxaqxyx16[address] [place], [place] [address]DrCiro Hemphill Neutrophils/100 WBC (Bld) 72.1 % Normal 43.0-75.0 [facility] Comment on above: Performed By: #### C BC ####[facility] Mjzlogscyq1830[address] [place], [place] [address]DrCiro Hemphill Platelet mean volume (Bld) [Entitic vol] 10.3 fL Normal 9.5-13.5 [facility] Comment on above: Performed By: #### C BC ####[facility] Iycfvgxxhq7418 [place] [address]Dr. Lizandro Hemphill PLT 491 103/ul Critically high 150-450 [facility] Comment on above: Performed By: #### C BC ####[facility] Ibkgbipetg6196 [place] [phone]. Lizandro Hemphill RBC 3.97 106/ul Critically low 4.20-5.40 [facility] Comment on above: Performed By: #### C BC ####[facility] Frzqgpvuey4243 [place] [address]Dr. Lizandro Hemphill WBC 9.8 103/ul Normal 4.0-11.0 [facility] Comment on above: Performed By: #### C BC ####[facility] Dtptxlxkoo1420 [place] [address]Dr. Lizandro Hemphill D-DIMERon 05-22-2022 D-DIMER 0.37 mg/L FEU Normal <=0.59 [facility] Comment on above: Performed By: #### D DIM ####[facility] Gllpayjfrw9217 [place] [address]Dr. Lizandro Hemphill D-DIMER COMMENTS SEE BELOW Normal [facility] Comment on above: Result Comment: Incr eases [...] generalized hospitalization. Performed By: #### D DIM ####[facility] Ijczgmyisj4704 [place] [address]Dr. Lizandro Hemphill LACTATE/LACTIC ACIDon 2022 Lactate [Moles/Vol] 2.7 mmol/L Critically high 0.4-1.9 [facility] Comment on above: Performed By: #### L ACT ####[facility] Pirnlbwmcj7100 [place] [address]Dr. Lizandro Hemphill PROF 14(COMP METB)on 023 Albumin [Mass/Vol] 4.1 g/dL Normal 3.4-5.0 [facility] Comment on above: Performed By: #### C MARGARITA HSTROPN ####[facility] Bgkjzwlpbg0536 [place] [address]Dr. Lizandro Hemphill Albumin/Globulin [Mass ratio] 1.1 {ratio} Normal [facility] Comment on above: Performed By: #### C MARGARITA HSTROPN ####[facility] Gupnwzinas[address] [place], [place] [address]Dr. Lizandro Hemphill ALP [Catalytic activity/Vol] 142 U/L Critically high 46-116 [facility] Comment on above: Performed By: #### C MARGARITA HSTROPN ####[facility] Fkoiwtipxm257[address] [place], [place] [address]Dr. Lizandro Hemphill ALT [Catalytic activity/Vol] 37 U/L Normal 14-59 [facility] Comment on above: Performed By: #### C MARGARITA HSTROPN ####[facility] Ceifttfrpy[address] [place], [place] [address]Dr. Lizandro Hemphill Anion gap [Moles/Vol] 20.2 mmol/L Normal [facility] Comment on above: Performed By: #### C MARGARITA HSTROPN ####[facility] Qrjkmwyyhv5044 [place] [address]Dr. Lizandro Hemphill AST [Catalytic activity/Vol] 38 U/L Critically high 15-37 [facility] Comment on above: Performed By: #### C MARGARITA HSTROPN ####[facility] Armczisyea5[address] [place], [place] [address]Dr. Lizandro Hemphill Bilirubin [Mass/Vol] 0.5 mg/dL Normal 0.2-1.0 [facility] Comment on above: Performed By: #### C MARGARITA HSTROPN ####[facility] Gcbgmaabtt6647 [place] [address]Dr. Lizandro Hemphill Calcium [Mass/Vol] 10.0 mg/dL Normal 8.5-10.1 [facility] Comment on above: Performed By: #### C MP, HSTROPN ####[facility] Tmxzeyysvi9112 [place] [address]Dr. Lizandro Hemphill Chloride [Moles/Vol] 99 mmol/L Normal 98-107 [facility] Comment on above: Performed By: #### C MP, HSTROPN ####[facility] Uxhcgonggq6104 [place] [address]Dr. Lizandro Hemphill CO2 [Moles/Vol] 21.8 mmol/L Normal 21.0-32.0 [facility] Comment on above: Performed By: #### C MP, HSTROPN ####[facility] [address]qzdsbyu2[address] [place], [place] [address]Dr. Lizandro Hemphill Creatinine [Mass/Vol] 1.19 mg/dL Critically high 0.55-1.02 [facility] Comment on above: Performed By: #### C MP, HSTROPN ####[facility] Xckemfvnru9281 [place] [address]Dr. Lizandro Hemphill EGFR-AF CYMRAES 56 mL/min/1.73m2 Critically low >=60 [facility] Comment on above: Performed By: #### C MP, HSTROPN ####[facility] [address]qvwyyjkjt[address] [place], [place] [address]Dr. Lizandro Hemphill EGFR-NON AF CYMRAES 46 mL/min/1.73m2 Critically low >=60 [facility] Comment on above: Performed By: #### C MP, HSTROPN ####[facility] Qifdvmluta1109 [place] [address]Dr. Lizandro Hemphill Globulin (S) [Mass/Vol] 3.8 g/dL Normal [facility] Comment on above: Performed By: #### C MP, HSTROPN ####[facility] Efdlfzprdu4390 [place] [address]Dr. Lizandro Hemphill Glucose [Mass/Vol] 107 mg/dL Critically high 74-106 [facility] Comment on above: Performed By: #### C MARGARITA, HSTROPN ####[facility] [facility] [address]azgcbv[address] [place] [address]Dr. Lizandro Hemphill Potassium [Moles/Vol] 4.0 mmol/L Normal 3.5-5.1 [facility] Comment on above: Performed By: #### C MARGARITA, HSTROPN ####[facility] Qyirlmcrxi[address] [place] [address]Dr. Lizandro Hemphill Protein [Mass/Vol] 7.9 g/dL Normal 6.4-8.2 [facility] Comment on above: Performed By: #### C MARGARITA, HSTROPN ####[facility] [address]zq[address]jv[address] [place], [place] [address]Dr. Lizandro Hemphill Sodium [Moles/Vol] 137 mmol/L Normal 136-145 [facility] Comment on above: Performed By: #### C MARGARITA, HSTROPN ####[facility] Xmbkvafdyo9[address] [place], [place] [address]Dr. Lizandro Hemphill Urea nitrogen [Mass/Vol] 20.0 mg/dL Critically high 7.0-18.0 [facility] Comment on above: Performed By: #### C MARGARITA, HSTROPN ####[facility] [address]yypopvgye[address] [place], [place] [address]Dr. Lizandro Hemphill Urea nitrogen/Creatinin e [Mass ratio] 16.8 mg/mg Normal [facility] Comment on above: Performed By: #### C MARGARITA, HSTROPN ####[facility] Izivmqxvvp[address] [place], [place] [address]Dr. Lizandro Hemphill TROPONIN, HIGH SENSITIVITYon 05-22-2022 HSTROP 10.2 pg/mL Normal 4.0-51.3 [facility] Comment on above: Result Comment: CUT- OFF POINTS HAVE BEEN ESTABLISHED BASED ON THE FOURTH UNIVERSAL DEFINITIONS OF MYOCARDIALINFARCTION. THE UPPER REFERENCE LIMIT (URL) OF TROPONIN, DEFINED THE 99TH PERCENTILE OFcTnI DISTRIBUTION IN A REFERENCE POPULATION, HAS BEEN CONFIRMED THE DECISION THRESHOLDFOR ND DIAGNOSIS. Performed By: #### C MP, HSTROPN ####[facility] Tnprumqist[address] [place] [address]Dr. Lizandro Hemphill XR CHEST 1 Von 05-22-2022 XR CHEST 1 V Normal [facility] CBC AUTO DIFFon 05-06-2022 BASO # 0.1 103/ul Normal 0.0-0.1 [facility] Comment on above: Performed By: #### C BC ####[facility] Qgfodmzbjb16[address] [place] [address]Dr. Lizandro Joby Basophils/100 WBC (Bld) 0.9 % Normal 0.2-2.0 [facility] Comment on above: Performed By: #### C BC ####[facility] Cfxfykpxct2144[address] [place], [place] [address]Dr. Lizandro Joby EO # 0.1 103/ul Normal 0.0-0.7 [facility] Comment on above: Performed By: #### C BC ####[facility] Ujdaijmnii46[address] [place], [place] [address]Dr. Lizandro Joby Eosinophils/100 WBC (Bld) 0.9 % Normal 0.9-7.0 [facility] Comment on above: Performed By: #### C BC ####[facility] Edxxukhywt1415[address] [place], [place] [address]Dr. Lizandro Hemphill Erythrocyte distribution width (RBC) [Ratio] 18.9 % Critically high 11.0-15.0 [facility] Comment on above: Performed By: #### C BC ####[facility] Fdjsisbnow7[address] [place], [place] [address]Dr. Lizandro Hemphill Hematocrit (Bld) [Volume fraction] 27.0 % Critically low 36.0-48.0 [facility] Comment on above: Performed By: #### C BC ####[facility] Zamfndxpxa4030[address] [place], [place] [address]Dr. Lizandro Hemphill Hemoglobin (Bld) [Mass/Vol] 8.2 g/dL Critically low 12.0-16.0 [facility] Comment on above: Performed By: #### C BC ####[facility] Faaercecee6289[address] [place], [place] [address]DrCiro Vossannie Joby IG # 0.01 10e3/ul Normal 0.00-0.03 [facility] Comment on above: Performed By: #### C BC ####[facility] Otlmvhobym[address] [place] [address]DrCiro Lizandro Joby IG % 0.2 % Normal 0.0-0.5 [facility] Comment on above: Performed By: #### C BC ####[facility] Vkppnwmeej4136 [place] [address]DrCiro Hemphill LYMPH # 1.1 103/ul Critically low 1.2-3.8 The [facility] Comment on above: Performed By: #### C BC ####[facility] Ycjmpvidfe4399 [place] [address]DrCiro Hemphill Lymphocytes/100 WBC (Bld) 17.0 % Critically low 20.5-60.0 [facility] Comment on above: Performed By: #### C BC ####[facility] Cmnkmcthqt[address] [place] [address]DrCiro Shanikaannie Hemphill MANUAL DIFF REQ NO Normal [facility] Comment on above: Performed By: #### C BC ####[facility] Bihndcrdto8[address] [place] [address]DrCiro Lizandro Joby MCH (RBC) [Entitic mass] 25.8 pg Critically low 26.7-34.0 [facility] Comment on above: Performed By: #### C BC ####[facility] Sauzhipmqb5701 [place] [address]DrCiro Lizandro Joby MCHC (RBC) [Mass/Vol] 30.4 g/dL Normal 29.9-35.2 [facility] Comment on above: Performed By: #### C BC ####[facility] Unhidpeffo87[address] [place] [address]DrCiro Hemphill MCV (RBC) [Entitic vol] 84.9 fL Normal 81.0-99.0 [facility] Comment on above: Performed By: #### C BC ####[facility] Jqjkwqzipm20[address] [place] [address]Dr. Lizandro Hemphill MONO # 0.7 103/ul Normal 0.3-0.8 [facility] Comment on above: Performed By: #### C BC ####[facility] Omkszkofcq48[address] [place] [address]Dr. Lizandro Hemphill Monocytes/100 WBC (Bld) 11.6 % Normal 1.7-12.0 [facility] Comment on above: Performed By: #### C BC ####[facility] Mqjhduvrhy4874 [place] [address]Dr. Lizandro Hemphill NEUT # 4.4 103/ul Normal 1.4-6.5 [facility] Comment on above: Performed By: #### C BC ####[facility] Sdbonddtgm7626 [place] [address]Dr. Lizandro Hemphill Neutrophils/100 WBC (Bld) 69.4 % Normal 43.0-75.0 [facility] Comment on above: Performed By: #### C BC ####[facility] Kvyyelowyw1370 [place] [address]Dr. Lizandro Hemphill Platelet mean volume (Bld) [Entitic vol] 10.8 fL Normal 9.5-13.5 [facility] Comment on above: Performed By: #### C BC ####[facility] Llgyhuqmbj0442 [place] [address]Dr. Lizandro Hemphill PLT 291 103/ul Normal 150-450 [facility] Comment on above: Performed By: #### C BC ####[facility] Zioatlborr[address] [place] [address]Dr. Lizandro Hemphill RBC 3.18 106/ul Critically low 4.20-5.40 The [facility] Comment on above: Performed By: #### C BC ####[facility] Idltbkrjfk3065 [place] [address]Dr. Lizandro Joby WBC 6.4 103/ul Normal 4.0-11.0 [facility] Comment on above: Performed By: #### C BC ####[facility] Msxrkejumb7207 [place] [address]DrCiro Hemphill PROF 14(COMP METB)on 023 Albumin [Mass/Vol] 2.4 g/dL Critically low 3.4-5.0 [facility] Comment on above: Performed By: #### C MP ####[facility] Dtjvnkpryr18[address] [place], [place] [address]Dr. Lizandro Hemphill Albumin/Globulin [Mass ratio] 0.8 {ratio} Normal [facility] Comment on above: Performed By: #### C MP ####[facility] Gzvvkfwzaa811767 [address] [place], [place] [address]Dr. Lizandro Hemphill ALP [Catalytic activity/Vol] 121 U/L Critically high 46-116 [facility] Comment on above: Performed By: #### C MP ####[facility] Jxujdgynae613267 [address] [place], [place] [address]Dr. Lizandro Hemphill ALT [Catalytic activity/Vol] 17 U/L Normal 14-59 [facility] Comment on above: Performed By: #### C MP ####[facility] Rmqxoncwqe428967 [address] [place], [place] [address]Dr. Lizandro Hemphill Anion gap [Moles/Vol] 10.9 mmol/L Normal [facility] Comment on above: Performed By: #### C MP ####[facility] Pbefszsblq629067 [address] [place], [place] [address]Dr. Lizandro Hemphill AST [Catalytic activity/Vol] 23 U/L Normal 15-37 [facility] Comment on above: Performed By: #### C MP ####[facility] Ipwiiaodww647167 [address] [place], [place] [address]Dr. Lizandro Hemphill Bilirubin [Mass/Vol] 0.2 mg/dL Normal 0.2-1.0 [facility] Comment on above: Performed By: #### C MP ####[facility] Mvqhoqfgxu405567 [address] [place], [place] [address]Dr. Lizandro Hemphill Calcium [Mass/Vol] 8.3 mg/dL Critically low 8.5-10.1 [facility] Comment on above: Performed By: #### C MP ####[facility] Ijuuzdzhyh071367 [address] [place], [place] [address]Dr. Lizandro Hemphill Chloride [Moles/Vol] 106 mmol/L Normal 98-107 [facility] Comment on above: Performed By: #### C MP ####[facility] Vzoghvyrld8860 [place] [address]Dr. Lizandro Hemphill CO2 [Moles/Vol] 26.7 mmol/L Normal 21.0-32.0 [facility] Comment on above: Performed By: #### C MP ####[facility] Pqapugiqrv3566 [place] [address]Dr. Lizandro Hemphill Creatinine [Mass/Vol] 0.88 mg/dL Normal 0.55-1.02 [facility] Comment on above: Performed By: #### C MP ####[facility] Sytnxekhzo188467 [address] [place], [place] [address]Dr. Lizandro Joby EGFR-AF CYMRAES >60 Normal >=60 [facility] Comment on above: Performed By: #### C MP ####[facility] Qrfbqcnpsi783367 [address] [place], [place] [address]Dr. Lizandro Joby EGFR-NON AF CYMRAES >60 Normal >=60 [facility] Comment on above: Performed By: #### C MP ####[facility] Jlkqlqllxf341567 [address] [place], [place] [address]Dr. Lizandro Joby Globulin (S) [Mass/Vol] 3.0 g/dL Normal [facility] Comment on above: Performed By: #### C MP ####[facility] Srzoipaixt1283 [place] [address]Dr. Lizandro Joby Glucose [Mass/Vol] 101 mg/dL Normal 74-106 [facility] Comment on above: Performed By: #### C MP ####[facility] Wpeiatbjvd4476 [place] [id number]. Lizandro Joby Potassium [Moles/Vol] 3.6 mmol/L Normal 3.5-5.1 [facility] Comment on above: Performed By: #### C MP ####[facility] Bsqcbviwxb0507 [place] [address]Dr. Lizandro Hemphill Protein [Mass/Vol] 5.4 g/dL Critically low 6.4-8.2 Th e [facility] Comment on above: Performed By: #### C MP ####[facility] Kuxvpnfahw1233 [place] [address]Dr. Lizandro Hemphill Sodium [Moles/Vol] 140 mmol/L Normal 136-145 [facility] Comment on above: Performed By: #### C MP ####[facility] Pfmfeexqzw6032 [place] [address]Dr. Lizandro Hemphill Urea nitrogen [Mass/Vol] 11.0 mg/dL Normal 7.0-18.0 [facility] Comment on above: Performed By: #### C MP ####[facility] Xukhmsbqhi4[address] [place], [place] [address]Dr. Lizandro Hemphill Urea nitrogen/Creatinin e [Mass ratio] 12.5 mg/mg Normal [facility] Comment on above: Performed By: #### C MP ####[facility] Wvenjvoand621867 [address] [place], [place] [address]Dr. Lizandro Hemphill PROTIMEon 05-06-2022 INR Coag (PPP) [Relative time] 1.49 {INR} Normal [facility] Comment on above: Performed By: #### P T ####[facility] Kyejmqcpgj935467 [address] [place], [place] [address]Dr. Lizandro Hemphill INR GUIDELINES SEE BELOW Normal [facility] Comment on above: Result Comment: GUEVARA RED INR: 2.0 - 3.0 CONDITIONS NOT LISTED BELOW 2.5 - 3.5 FOR PROSTHETIC HEART VALVE REPLACEMENT 2.5 - 3.5 RECURRENT THROMBOSIS Performed By: #### P T ####[facility] Mioeihpkhd8035[address] [place], [place] [address]Dr. Lizandro Hemphill PT Coag (PPP) [Time] 15.4 s Critically high 9.0-11.6 [facility] Comment on above: Performed By: #### P T ####[facility] Ipqbusdfut775167 [address] [place], [place] [address]Dr. Lizandro Hemphill CBC AUTO DIFFon 05-05-2022 BASO # 0.0 103/ul Normal 0.0-0.1 [facility] Comment on above: Performed By: #### C BC ####[facility] Sleshgacvl8008 [place] [id number]. Lizandro Hemphill Basophils/100 WBC (Bld) 0.6 % Normal 0.2-2.0 [facility] Comment on above: Performed By: #### C BC ####[facility] Tueiqrgjea2295 [place] [id number]. Lizandro Hemphill EO # 0.0 103/ul Normal 0.0-0.7 [facility] Comment on above: Performed By: #### C BC ####[facility] Tuixublavl7709 [place] [phone]. Lizandro Hemphill Eosinophils/100 WBC (Bld) 0.6 % Critically low 0.9-7.0 [facility] Comment on above: Performed By: #### C BC ####[facility] Rxwxxruikw628[address] [place], [place] [address]Dr. Lizandro Hemphill Erythrocyte distribution width (RBC) [Ratio] 19.1 % Critically high 11.0-15.0 [facility] Comment on above: Performed By: #### C BC ####[facility] Fktkwnnomc05[address] [place], [place] [address]Dr. Lizandro Hemphill Hematocrit (Bld) [Volume fraction] 29.6 % Critically low 36.0-48.0 [facility] Comment on above: Performed By: #### C BC ####[facility] Cdwoaglrfc[address] [place], [place] [address]Dr. Lizandro Hemphill Hemoglobin (Bld) [Mass/Vol] 9.1 g/dL Critically low 12.0-16.0 [facility] Comment on above: Performed By: #### C BC ####[facility] Noqdctprur27[address] [place], [place] [address]Dr. Lizandro Hemphill IG # 0.04 10e3/ul Critically high 0.00-0.03 [facility] Comment on above: Performed By: #### C BC ####[facility] Jigsnuovkm[address] [place], [place] [address]Dr. Lizandro Hemphill IG % 0.6 % Critically high 0.0-0.5 [facility] Comment on above: Performed By: #### C BC ####[facility] Ccvnliepbm0495 [place] [phone]. Lizandro Hemphill LYMPH # 1.1 103/ul Critically low 1.2-3.8 [facility] Comment on above: Performed By: #### C BC ####[facility] Onyipbpmhr0166 [place] [phone]. Lizandro Hemphill Lymphocytes/100 WBC (Bld) 17.8 % Critically low 20.5-60.0 [facility] Comment on above: Performed By: #### C BC ####[facility] Igsafyrwku7426 [place] [phone]. Lizandro Hemphill MANUAL DIFF REQ NO Normal [facility] Comment on above: Performed By: #### C BC ####[facility] Asqgoifnti6263 [place] [phone]. Lizandro Hemphill MCH (RBC) [Entitic mass] 26.7 pg Normal 26.7-34.0 [facility] Comment on above: Performed By: #### C BC ####[facility] Dgqrplyzho9045 [place] [phone]. Lizandro Hemphill MCHC (RBC) [Mass/Vol] 30.7 g/dL Normal 29.9-35.2 [facility] Comment on above: Performed By: #### C BC ####[facility] Xaojsceqkp4258 [place] [phone]. Lizandro Hemphill MCV (RBC) [Entitic vol] 86.8 fL Normal 81.0-99.0 [facility] Comment on above: Performed By: #### C BC ####[facility] Cfgheicyve8839 [place] [phone]. Lizandro Hemphill MONO # 0.8 103/ul Normal 0.3-0.8 [facility] Comment on above: Performed By: #### C BC ####[facility] Etiqxcsldc4574 [place] [phone]. Lizandro Hemphill Monocytes/100 WBC (Bld) 12.2 % Critically high 1.7-12.0 [facility] Comment on above: Performed By: #### C BC ####[facility] Ufvubieckp5253 [place] [phone]. Lizandro Hemphill NEUT # 4.3 103/ul Normal 1.4-6.5 [facility] Comment on above: Performed By: #### C BC ####[facility] Ucnkoxsana5704 [place] [phone]. Lizandro Hemphill Neutrophils/100 WBC (Bld) 68.2 % Normal 43.0-75.0 [facility] Comment on above: Performed By: #### C BC ####[facility] Ddqpjlnwjf3918 [place] [phone]. Lizandro Hemphill Platelet mean volume (Bld) [Entitic vol] 10.2 fL Normal 9.5-13.5 [facility] Comment on above: Performed By: #### C BC ####[facility] Tlumbzutdl6655 [place] [phone]. Lizandro Hemphill PLT 305 103/ul Normal 150-450 [facility] Comment on above: Performed By: #### C BC ####[facility] Nlodvmfgpt9839 [place] [phone]. Lizandro Hemphill RBC 3.41 106/ul Critically low 4.20-5.40 [facility] Comment on above: Performed By: #### C BC ####[facility] Qznphcprdn7889 [place] [phone]. Lizandro Hemphill WBC 6.3 103/ul Normal 4.0-11.0 [facility] Comment on above: Performed By: #### C BC ####[facility] Wvsaepqfse8114 [place] [phone] Hemphill PROF 14(COMP METB)on 023 Albumin [Mass/Vol] 2.3 g/dL Critically low 3.4-5.0 [facility] Comment on above: Performed By: #### C MP ####[facility] Yeqtlyynrn7850 [place] [phone] Hemphill Albumin/Globulin [Mass ratio] 0.8 {ratio} Normal [facility] Comment on above: Performed By: #### C MP ####[facility] Olnhqambpg0810 [place] [address]Dr. Lizandro Hemphill ALP [Catalytic activity/Vol] 121 U/L Critically high 46-116 [facility] Comment on above: Performed By: #### C MP ####[facility] Nmhjbwbukw2765 [place] [address]Dr. Lizandro Joby ALT [Catalytic activity/Vol] 19 U/L Normal 14-59 [facility] Comment on above: Performed By: #### C MP ####[facility] Eltaibgjzm8941 [place] [address]Dr. Lizandro Joby Anion gap [Moles/Vol] 13.4 mmol/L Normal [facility] Comment on above: Performed By: #### C MP ####[facility] Svyaqraabh[address] [place], [place] [address]Dr. Shanikaannie Hemphill AST [Catalytic activity/Vol] 30 U/L Normal 15-37 [facility] Comment on above: Performed By: #### C MP ####[facility] Idllqtmsua48[address] [place], [place] [address]Dr. Shanikaannie Joby Bilirubin [Mass/Vol] 0.1 mg/dL Critically low 0.2-1.0 [facility] Comment on above: Performed By: #### C MP ####[facility] Mrswqoudha3785[address] [place], [place] [address]Dr. Shanikaannie Joby Calcium [Mass/Vol] 7.9 mg/dL Critically low 8.5-10.1 [facility] Comment on above: Performed By: #### C MP ####[facility] Htpuhdnxqr6532 [place] [address]Dr. Lizandro Hemphill Chloride [Moles/Vol] 107 mmol/L Normal 98-107 [facility] Comment on above: Performed By: #### C MP ####[facility] Ubrjuekxuy3652 [place] [address]Dr. Lizandro Hemphill CO2 [Moles/Vol] 22.7 mmol/L Normal 21.0-32.0 [facility] Comment on above: Performed By: #### C MP ####[facility] Cmcglpyxnw7240 [place] [phone]. Lizandro Hemphill Creatinine [Mass/Vol] 1.37 mg/dL Critically high 0.55-1.02 [facility] Comment on above: Performed By: #### C MP ####[facility] Nmqeuyywya0156 [place] [phone]. Lizandro Hemphill EGFR-AF CYMRAES 48 mL/min/1.73m2 Critically low >=60 [facility] Comment on above: Performed By: #### C MP ####[facility] Mjcgglswwz9939 [place] [phone]. Lizandro Joby EGFR-NON AF CYMRAES 39 mL/min/1.73m2 Critically low >=60 [facility] Comment on above: Performed By: #### C MP ####[facility] Rbqyylxeml9249 [place] [phone]. Lizandro Joby Globulin (S) [Mass/Vol] 2.9 g/dL Normal [facility] Comment on above: Performed By: #### C MP ####[facility] Fdolncfvgn8941 [place] [phone]. Lizandro Hemphill Glucose [Mass/Vol] 120 mg/dL Critically high 74-106 [facility] Comment on above: Performed By: #### C MP ####[facility] Alwzrjvuqd2458 [place] [phone]. Lizandro Joby Potassium [Moles/Vol] 4.1 mmol/L Normal 3.5-5.1 [facility] Comment on above: Performed By: #### C MP ####[facility] Tmjurukpmc1100 [place] [phone]. Lizandro Hemphill Protein [Mass/Vol] 5.2 g/dL Critically low 6.4-8.2 [facility] Comment on above: Performed By: #### C MP ####[facility] Vhrwhosfas6154 [place] [phone]. Lizandro Joby Sodium [Moles/Vol] 139 mmol/L Normal 136-145 [facility] Comment on above: Performed By: #### C MP ####[facility] Mczgykjjtk2772 [place] [address]Dr. Lizandro Hemphill Urea nitrogen [Mass/Vol] 19.0 mg/dL Critically high 7.0-18.0 [facility] Comment on above: Performed By: #### C MP ####[facility] Uojnyzwiju1240[address] [place], [place] [address]Dr. Lizandro Hemphill Urea nitrogen/Creatinin e [Mass ratio] 13.9 mg/mg Normal [facility] Comment on above: Performed By: #### C MP ####[facility] Njfivjldkl188[address] [place], [place] [address]Dr. Lizandro Hemphill PROTIMEon 05-05-2022 INR Coag (PPP) [Relative time] 1.07 {INR} Normal [facility] Comment on above: Performed By: #### P T ####[facility] Sgqgqgazho22[address] [place], [place] [address]Dr. Lizandro Hemphill INR GUIDELINES SEE BELOW Normal [facility] Comment on above: Result Comment: GUEVARA RED INR: 2.0 - 3.0 CONDITIONS NOT LISTED BELOW 2.5 - 3.5 FOR PROSTHETIC HEART VALVE REPLACEMENT 2.5 - 3.5 RECURRENT THROMBOSIS Performed By: #### P T ####[facility] Wzpjxflpqd9[address] [place], [place] [address]Dr. Lizandro Hemphill PT Coag (PPP) [Time] 11.3 s Normal 9.0-11.6 [facility] Comment on above: Performed By: #### P T ####[facility] Dwpmmhvorn8865[address] [place], [place] [address]Dr. Lizandro Hemphill CBC AUTO DIFFon 05-04-2022 BASO # 0.1 103/ul Normal 0.0-0.1 [facility] Comment on above: Performed By: #### C BC ####[facility] Xdjdobldnf[address] [place], [place] [address]DrCiro Hemphill Basophils/100 WBC (Bld) 1.2 % Normal 0.2-2.0 [facility] Comment on above: Performed By: #### C BC ####[facility] Pwcudgqxsm2302 [place] [phone]. Lizandro Hemphill EO # 0.0 103/ul Normal 0.0-0.7 [facility] Comment on above: Performed By: #### C BC ####[facility] Ibqumjyvff0959 [place] [phone]. Lizandro Hemphill Eosinophils/100 WBC (Bld) 0.5 % Critically low 0.9-7.0 [facility] Comment on above: Performed By: #### C BC ####[facility] [address]ujgefssvm[address] [place], [place] [address]Dr. Lizandro Hemphill Erythrocyte distribution width (RBC) [Ratio] 18.8 % Critically high 11.0-15.0 [facility] Comment on above: Performed By: #### C BC ####[facility] Bmdweyivef5[address] [place], [place] [address]Dr. Lizandro Hemphill Hematocrit (Bld) [Volume fraction] 26.6 % Critically low 36.0-48.0 [facility] Comment on above: Performed By: #### C BC ####[facility] Kevwnewsio30[address] [place], [place] [address]Dr. Lizandro Hemphill Hemoglobin (Bld) [Mass/Vol] 8.2 g/dL Critically low 12.0-16.0 [facility] Comment on above: Performed By: #### C BC ####[facility] Ezjplgitkv39[address] [place], [place] [address]Dr. Lizandro Hemphill IG # 0.02 10e3/ul Normal 0.00-0.03 [facility] Comment on above: Performed By: #### C BC ####[facility] Sswvcmcrin[address] [place], [place] [address]Dr. Lizandro Hemphill IG % 0.4 % Normal 0.0-0.5 [facility] Comment on above: Performed By: #### C BC ####[facility] Qnmzszpqvj27[address] [place], [place] [address]Dr. Lizandro Hemphill LYMPH # 1.4 103/ul Normal 1.2-3.8 [facility] Comment on above: Performed By: #### C BC ####[facility] Cfuvxrxzio[address] [place] [id number]. Lizandro Hemphill Lymphocytes/100 WBC (Bld) 24.5 % Normal 20.5-60.0 [facility] Comment on above: Performed By: #### C BC ####[facility] Auxoddzijl[address] [place] [id number]. Shanikaannie Hemphill MANUAL DIFF REQ NO Normal [facility] Comment on above: Performed By: #### C BC ####[facility] Fadmxkxkdk37[address] [place] [phone]. Lizandro Joby MCH (RBC) [Entitic mass] 26.4 pg Critically low 26.7-34.0 [facility] Comment on above: Performed By: #### C BC ####[facility] Jeakjwytfq[address] [place], [place] [address]Dr. Lizandro Joby MCHC (RBC) [Mass/Vol] 30.8 g/dL Normal 29.9-35.2 [facility] Comment on above: Performed By: #### C BC ####[facility] Zrsf[address]aivy[address] [place], [place] [address]Dr. Lizandro Hemphill MCV (RBC) [Entitic vol] 85.5 fL Normal 81.0-99.0 [facility] Comment on above: Performed By: #### C BC ####[facility] Hkovacnhkz05[address] [place], [place] [address]Dr. Shanikaannie Joby MONO # 0.7 103/ul Normal 0.3-0.8 [facility] Comment on above: Performed By: #### C BC ####[facility] Hidurotvfj3377[address] [place], [place] [address]Dr. Lizandro Joby Monocytes/100 WBC (Bld) 12.1 % Critically high 1.7-12.0 [facility] Comment on above: Performed By: #### C BC ####[facility] Wcnixiitaa7564[address] [place], [place] [address]Dr. Lizandro Hemphill NEUT # 3.5 103/ul Normal 1.4-6.5 [facility] Comment on above: Performed By: #### C BC ####[facility] Osftintinr24[address] [place] [phone]. Lizandro Hemphill Neutrophils/100 WBC (Bld) 61.3 % Normal 43.0-75.0 [facility] Comment on above: Performed By: #### C BC ####[facility] Ozswgwsjfu3[address] [place] [phone]. Lizandro Hemphill Platelet mean volume (Bld) [Entitic vol] 10.8 fL Normal 9.5-13.5 [facility] Comment on above: Performed By: #### C BC ####[facility] Jeafhbhmgy264[address] [place] [phone]. Lizandro Hemphill PLT 309 103/ul Normal 150-450 [facility] Comment on above: Performed By: #### C BC ####[facility] Vlzpjpmoes[address] [place] [address]Dr. Lizandro Hemphill RBC 3.11 106/ul Critically low 4.20-5.40 [facility] Comment on above: Performed By: #### C BC ####[facility] Jauicambof374[address] [place], [place] [address]Dr. Lizandro Hemphill WBC 5.6 103/ul Normal 4.0-11.0 [facility] Comment on above: Performed By: #### C BC ####[facility] Cwuhcviblo2159[address] [place], [place] [address]Dr. Lizandro Hemphill CT ABD/PELVIS WO CONon 05-04 CT ABD/PELVIS WO CON Normal [facility] PROF 14(COMP METB)on 023 Albumin [Mass/Vol] 2.7 g/dL Critically low 3.4-5.0 [facility] Comment on above: Performed By: #### C MP ####[facility] Yitrltmmfj7346[address] [place], [place] [address]Dr. Lizandro Hemphill Albumin/Globulin [Mass ratio] 0.9 {ratio} Normal [facility] Comment on above: Performed By: #### C MP ####[facility] Yfnbmhuujf413367 [address] [place], [place] [address]Dr. Lizandro Hemphill ALP [Catalytic activity/Vol] 122 U/L Critically high 46-116 [facility] Comment on above: Performed By: #### C MP ####[facility] Vhvzfgkylv7[address] [place] [address]Dr. Lizandro Hemhpill ALT [Catalytic activity/Vol] 23 U/L Normal 14-59 [facility] Comment on above: Performed By: #### C MP ####[facility] Xirfskqmdy5714[address] [place], [place] [address]Dr. Lizandro Hemphill Anion gap [Moles/Vol] 11.9 mmol/L Normal [facility] Comment on above: Performed By: #### C MP ####[facility] Cnmolkqlwu225367 [address] [place], [place] [address]Dr. Lizandro Hemphill AST [Catalytic activity/Vol] 26 U/L Normal 15-37 [facility] Comment on above: Performed By: #### C MP ####[facility] Ujdzivsjga474[address] [place], [place] [address]Dr. Lizandro Hemphill Bilirubin [Mass/Vol] 0.3 mg/dL Normal 0.2-1.0 [facility] Comment on above: Performed By: #### C MP ####[facility] Kvmmnhlpsn654[address] [place], [place] [address]Dr. Lizandro Hemphill Calcium [Mass/Vol] 8.4 mg/dL Critically low 8.5-10.1 [facility] Comment on above: Performed By: #### C MP ####[facility] Ztrrpsgfzw907[address] [place], [place] [address]Dr. Lizandro Hemphill Chloride [Moles/Vol] 106 mmol/L Normal 98-107 [facility] Comment on above: Performed By: #### C MP ####[facility] Okjnjjytza802867 [address] [place], [place] [address]Dr. Lizandro Hemphill CO2 [Moles/Vol] 26.2 mmol/L Normal 21.0-32.0 [facility] Comment on above: Performed By: #### C MP ####[facility] Vogfldxqnv2226[address] [place], [place] [address]Dr. Lizandro Hemphill Creatinine [Mass/Vol] 1.43 mg/dL Critically high 0.55-1.02 [facility] Comment on above: Performed By: #### C MP ####[facility] Mgpovmtdbx350[address] [place] [address]Dr. Shanikaannie Joby EGFR-AF CYMRAES 45 mL/min/1.73m2 Critically low >=60 [facility] Comment on above: Performed By: #### C MP ####[facility] Pspprdcmwy[address] [place] [address]Dr. Shanikaannie Joby EGFR-NON AF CYMRAES 37 mL/min/1.73m2 Critically low >=60 [facility] Comment on above: Performed By: #### C MP ####[facility] Nbarvryijj6739 [place] [address]Dr. Lizandro Hemphill Globulin (S) [Mass/Vol] 2.9 g/dL Normal [facility] Comment on above: Performed By: #### C MP ####[facility] Zbisrxnxor5981 [place] [address]Dr. Lizandro Hemphill Glucose [Mass/Vol] 101 mg/dL Normal 74-106 [facility] Comment on above: Performed By: #### C MP ####[facility] Ixnnifrvpr060367 [address] [place], [place] [address]Dr. Lizandro Hemphill Protein [Mass/Vol] 5.6 g/dL Critically low 6.4-8.2 [facility] Comment on above: Performed By: #### C MP ####[facility] Fqkjodnxxs2858 [place] [address]Dr. Lizandro Hemphill Sodium [Moles/Vol] 140 mmol/L Normal 136-145 [facility] Comment on above: Performed By: #### C MP ####[facility] Usjihrwfip149067 [address] [place], [place] [address]Dr. Lizandro Hemphill Urea nitrogen [Mass/Vol] 14.0 mg/dL Normal 7.0-18.0 [facility] Comment on above: Performed By: #### C MP ####[facility] Zovzfkngag3387[address] [place], [place] [address]Dr. Lizandro Hemphill Urea nitrogen/Creatinin e [Mass ratio] 9.8 mg/mg Normal [facility] Comment on above: Performed By: #### C MP ####[facility] Ijdyouaclh003567 [address] [place], [place] [address]Dr. Shanikaannie Hemphill PROTIMEon 05-04-2022 INR Coag (PPP) [Relative time] 1.01 {INR} Normal [facility] Comment on above: Performed By: #### P T ####[facility] Qsnvogeqms4475[address] [place], [place] [address]Dr. Lizandro Hemphill INR GUIDELINES SEE BELOW Normal [facility] Comment on above: Result Comment: GUEVARA RED INR: 2.0 - 3.0 CONDITIONS NOT LISTED BELOW 2.5 - 3.5 FOR PROSTHETIC HEART VALVE REPLACEMENT 2.5 - 3.5 RECURRENT THROMBOSIS Performed By: #### P T ####[facility] Axpfzfstyw455367 [address] [place], [place] [address]Dr. Lizandro Hemphill PT Coag (PPP) [Time] 10.7 s Normal 9.0-11.6 [facility] Comment on above: Performed By: #### P T ####[facility] Xqftnnwsjr246367 [address] [place], [place] [address]Dr. Lizandro Hemphill AMMONIAon 05-03-2022 Ammonia (P) [Moles/Vol] 27 umol/L Normal 11-32 [facility] Comment on above: Performed By: #### A MM ####[facility] Snvhqtglxa686767 [address] [place], [place] [address]Dr. Lizandro Hemphill AMYLASEon 05-03-2022 Amylase [Catalytic activity/Vol] 68 U/L Normal 25-115 [facility] Comment on above: Performed By: #### M G, CMP, ALICIA, LIPA ####[facility] Zkukzvggca77[address] [place], [place] [address]Dr. Lizandro Hemphill CBC AUTO DIFFon 05-03-2022 BASO # 0.1 103/ul Normal 0.0-0.1 [facility] Comment on above: Performed By: #### C BC ####[facility] Wvzcjmiayb9[address] [place], [place] [address]Dr. Lizandro Hemphill Basophils/100 WBC (Bld) 1.1 % Normal 0.2-2.0 [facility] Comment on above: Performed By: #### C BC ####[facility] Gylqwwiize3426[address] [place], [place] [address]Dr. Lizandro Hemphill EO # 0.0 103/ul Normal 0.0-0.7 [facility] Comment on above: Performed By: #### C BC ####[facility] Pvzjpxmolp5746[address] [place], [place] [address]Dr. Lizandro Hemphill Eosinophils/100 WBC (Bld) 0.4 % Critically low 0.9-7.0 [facility] Comment on above: Performed By: #### C BC ####[facility] Jiejzypgcb541867 [address] [place], [place] [address]Dr. Lizandro Hemphill Erythrocyte distribution width (RBC) [Ratio] 18.7 % Critically high 11.0-15.0 [facility] Comment on above: Performed By: #### C BC ####[facility] Rxvhrtymnh913067 [address] [place], [place] [address]Dr. Lizandro Hemphill Hematocrit (Bld) [Volume fraction] 31.0 % Critically low 36.0-48.0 [facility] Comment on above: Performed By: #### C BC ####[facility] Ighioiriea425267 [address] [place], [place] [address]Dr. Lizandro Hemphill Hemoglobin (Bld) [Mass/Vol] 9.4 g/dL Critically low 12.0-16.0 [facility] Comment on above: Performed By: #### C BC ####[facility] Rskqvclbga099867 [address] [place], [place] [address]Dr. Lizandro Hemphill IG # 0.02 10e3/ul Normal 0.00-0.03 [facility] Comment on above: Performed By: #### C BC ####[facility] Ndgjzxzdjr045[address] [place], [place] [address]Dr. Lizandro Hemphill IG % 0.3 % Normal 0.0-0.5 [facility] Comment on above: Performed By: #### C BC ####[facility] Ujyjpurvfs8967[address] [place], [place] [address]Dr. Lizandro Hemphill LYMPH # 1.6 103/ul Normal 1.2-3.8 [facility] Comment on above: Performed By: #### C BC ####[facility] Lqsxjisozw50[address] [place] [address]DrCiro Hemphill Lymphocytes/100 WBC (Bld) 21.2 % Normal 20.5-60.0 [facility] Comment on above: Performed By: #### C BC ####[facility] Xymemmrsnp425367 [address] [place], [place] [address]DrCiro Hemphill MANUAL DIFF REQ NO Normal [facility] Comment on above: Performed By: #### C BC ####[facility] Jdoknqrowi1976 [place] [address]DrCiro Hemphill MCH (RBC) [Entitic mass] 26.0 pg Critically low 26.7-34.0 [facility] Comment on above: Performed By: #### C BC ####[facility] Ldouhofqgr453067 [address] [place], [place] [address]DrCiro Hemphill MCHC (RBC) [Mass/Vol] 30.3 g/dL Normal 29.9-35.2 [facility] Comment on above: Performed By: #### C BC ####[facility] Vhyffmjozq8787[address] [place], [place] [address]DrCiro Hemphill MCV (RBC) [Entitic vol] 85.9 fL Normal 81.0-99.0 [facility] Comment on above: Performed By: #### C BC ####[facility] Caoffpzijj8365[address] [place], [place] [address]DrCiro Hemphill MONO # 0.7 103/ul Normal 0.3-0.8 [facility] Comment on above: Performed By: #### C BC ####[facility] Notuciwflg795867 [address] [place], [place] [address]DrCiro Hemphill Monocytes/100 WBC (Bld) 9.5 % Normal 1.7-12.0 [facility] Comment on above: Performed By: #### C BC ####[facility] Esqwsbwaup368367 [address] [place], [place] [address]DrCiro Hemphill NEUT # 5.1 103/ul Normal 1.4-6.5 [facility] Comment on above: Performed By: #### C BC ####[facility] Yircrvmklu33[address] [place] [address]Dr. Lizandro Hemphill Neutrophils/100 WBC (Bld) 67.5 % Normal 43.0-75.0 [facility] Comment on above: Performed By: #### C BC ####[facility] Zeiylztwus8[address] [place] [address]Dr. Lizandro Hemphill Platelet mean volume (Bld) [Entitic vol] 10.1 fL Normal 9.5-13.5 [facility] Comment on above: Performed By: #### C BC ####[facility] Krmaxlqclo524167 [address] [place], [place] [address]Dr. Lizandro Hemphill PLT 404 103/ul Normal 150-450 [facility] Comment on above: Performed By: #### C BC ####[facility] Rubgqrmyhi197267 [address] [place], [place] [address]Dr. Lizandro Hemphill RBC 3.61 106/ul Critically low 4.20-5.40 [facility] Comment on above: Performed By: #### C BC ####[facility] Ozqznxtsex411767 [address] [place], [place] [address]Dr. Lizandro Hemphill WBC 7.6 103/ul Normal 4.0-11.0 [facility] Comment on above: Performed By: #### C BC ####[facility] Fgofhdghcc22[address] [place], [place] [address]Dr. Lizandro Hemphill CULTURE BLOODon 05-03-2022 Microscopic examination of blood, culture Culture Observations: NO GROWTH AT 5 DAYS. Normal [facility] Comment on above: Performed By: #### B LDCX2 ####[facility] Yhfjzfuxqu[address] [place], [place] [address]Dr. Lizandro Hemphill Microscopic examination of blood, culture Culture Observations: NO GROWTH AT 5 DAYS. Normal [facility] Comment on above: Performed By: #### B LDCX1 ####[facility] Ihwwtssrrs436[address] [place], [place] [address]Dr. Lizandro Hemphill CULTURE URINEon 05-03-2022 CULTURE URINE Culture Observations : NO GROWTH. Normal [facility] Comment on above: Performed By: #### U RCX ####[facility] Tqgfwrqkbr5875[address] [place], [place] [address]Dr. Lizandro Hemphill Covid-19 PCR ([facility])on SARS-CoV-2 (COVID-19) RNA VERITO+probe Ql (Unsp spec) Not detected Normal NOT DETECTED [facility] Comment on above: Result Comment: When [...] for this test is supported by the Editor In Chief of Health and Human Service's declaration that [...] be used). Performed By: #### C VDTBH ####[facility] Awjdoadpaz8197[address] [place], [place] [address]Dr. Lizandro Hemphill LACTATE/LACTIC ACIDon 2022 Lactate [Moles/Vol] 0.9 mmol/L Normal 0.4-1.9 [facility] Comment on above: Performed By: #### L ACT ####[facility] Bijykexqer9475[address] [place], [place] [address]Dr. Lizandro Hemphill LIPASEon 05-03-2022 Lipase [Catalytic activity/Vol] 105.0 U/L Normal 73.0-393.0 [facility] Comment on above: Performed By: #### M G, CMP, ALICIA, LIPA ####[facility] Gvqsdbqxng832[address] [place], [place] [address]Dr. Lizandro Hemphill MAGNESIUMon 05-03-2022 Magnesium [Mass/Vol] 1.8 mg/dL Normal 1.8-2.4 [facility] Comment on above: Performed By: #### M G, CMP, ALICIA, LIPA ####[facility] Ncoicijaoz[address] [place] [address]Dr. Lizandro Hemphill PROF 14(COMP METB)on 023 Albumin [Mass/Vol] 3.4 g/dL Normal 3.4-5.0 [facility] Comment on above: Performed By: #### M G, CMP, ALICIA, LIPA ####[facility] Cdttoftklz7202 [place] [address]Dr. Lizandro Hemphill Albumin/Globulin [Mass ratio] 1.0 {ratio} Normal [facility] Comment on above: Performed By: #### M G, CMP, ALICIA, LIPA ####[facility] Jjpelcfrgk[address] [place] [address]Dr. Lizandro Hemphill ALP [Catalytic activity/Vol] 154 U/L Critically high 46-116 [facility] Comment on above: Performed By: #### M G, CMP, ALICIA, LIPA ####[facility] Pzlmrmgrdi16[address] [place], [place] [address]Dr. Lizandro Hemphill ALT [Catalytic activity/Vol] 25 U/L Normal 14-59 [facility] Comment on above: Performed By: #### M G, CMP, ALICIA, LIPA ####[facility] Ftmuqvsuso80[address] [place] [address]Dr. Lizandro Hemphill Anion gap [Moles/Vol] 13.2 mmol/L Normal [facility] Comment on above: Performed By: #### M G, CMP, ALICIA, LIPA ####[facility] Animctuken[address] [place] [address]Dr. Lizandro Hemphill AST [Catalytic activity/Vol] 28 U/L Normal 15-37 [facility] Comment on above: Performed By: #### M G, CMP, ALICIA, LIPA ####[facility] Qtbfxhrssk5[address] [place] [address]Dr. Lizandro Hemphill Bilirubin [Mass/Vol] 0.4 mg/dL Normal 0.2-1.0 [facility] Comment on above: Performed By: #### M G, CMP, ALICIA, LIPA ####[facility] Zgenrfipqp5614 [place] [address]Dr. Lizandro Hemphill Calcium [Mass/Vol] 9.0 mg/dL Normal 8.5-10.1 [facility] Comment on above: Performed By: #### M G, CMP, ALICIA, LIPA ####[facility] Pgoauewezu[address] [place] [address]Dr. Lizandro Hemphill Chloride [Moles/Vol] 104 mmol/L Normal 98-107 [facility] Comment on above: Performed By: #### M G, CMP, ALICIA, LIPA ####[facility] Lqkessurdj8[address] [place], [place] [address]Dr. Lizandro Hemphill CO2 [Moles/Vol] 26.3 mmol/L Normal 21.0-32.0 [facility] Comment on above: Performed By: #### M G, CMP, ALICIA, LIPA ####[facility] Fovcaignun9[address] [place], [place] [address]Dr. Lizandro Hemphill Creatinine [Mass/Vol] 0.73 mg/dL Normal 0.55-1.02 [facility] Comment on above: Performed By: #### M G, CMP, ALICIA, LIPA ####[facility] [address]qwbvttmfl15[address] [place] [address]Dr. Lizandro Hemphill EGFR-AF CYMRAES >60 Normal >=60 [facility] Comment on above: Performed By: #### M G, CMP, ALICIA, LIPA ####[facility] Rupcpkhhac[address] [place] [address]Dr. Lizandro Hemphill EGFR-NON AF CYMRAES >60 Normal >=60 [facility] Comment on above: Performed By: #### M G, CMP, ALICIA, LIPA ####[facility] Fnpuugfhim54[address] [place] [address]Dr. Lizandro Hemphill Globulin (S) [Mass/Vol] 3.5 g/dL Normal [facility] Comment on above: Performed By: #### M G, CMP, ALICIA, LIPA ####[facility] Nwyhwykevy[address] [place] [address]Dr. Lizandro Hemphill Glucose [Mass/Vol] 87 mg/dL Normal 74-106 [facility] Comment on above: Performed By: #### M G, CMP, ALICIA, LIPA ####[facility] Kaklhnkkaj7[address] [place] [address]Dr. Lizandro Hemphill Potassium [Moles/Vol] 3.5 mmol/L Normal 3.5-5.1 [facility] Comment on above: Performed By: #### M G, CMP, ALICIA, LIPA ####[facility] Ymxycqimzq1797 [place] [address]Dr. Lizandro Hemphill Protein [Mass/Vol] 6.9 g/dL Normal 6.4-8.2 [facility] Comment on above: Performed By: #### M G, CMP, ALICIA, LIPA ####[facility] Zdejcqtrzq76[address] [place], [place] [address]Dr. Lizandro Hemphill Sodium [Moles/Vol] 140 mmol/L Normal 136-145 [facility] Comment on above: Performed By: #### M G, CMP, ALICIA, LIPA ####[facility] Kzldnvbact1434 [place] [address]Dr. Lizandro Hemphill Urea nitrogen [Mass/Vol] 12.0 mg/dL Normal 7.0-18.0 [facility] Comment on above: Performed By: #### M G, CMP, ALICIA, LIPA ####[facility] Iqvqgenvol78[address] [place], [place] [address]Dr. Lizandro Hemphill Urea nitrogen/Creatinin e [Mass ratio] 16.4 mg/mg Normal [facility] Comment on above: Performed By: #### M G, CMP, ALICIA, LIPA ####[facility] Xjuqqddtsw3[address] [place] [address]Dr. Lizandro Hemphill PROTIMEon 05-03-2022 INR Coag (PPP) [Relative time] 0.97 {INR} Normal [facility] Comment on above: Performed By: #### P TT, PT ####[facility] Fbpbmzxsgf1275[address] [place], [place] [address]Dr. Lizandro Hemphill INR GUIDELINES SEE BELOW Normal [facility] Comment on above: Result Comment: GUEVARA RED INR: 2.0 - 3.0 CONDITIONS NOT LISTED BELOW 2.5 - 3.5 FOR PROSTHETIC HEART VALVE REPLACEMENT 2.5 - 3.5 RECURRENT THROMBOSIS Performed By: #### P TT, PT ####[facility] Espoxrngjd225[address] [place], [place] [address]Dr. Lizandro Hemphill PT Coag (PPP) [Time] 10.3 s Normal 9.0-11.6 [facility] Comment on above: Performed By: #### P TT, PT ####[facility] Ikgfifajkw435[address] [place], [place] [address]Dr. Lizandro Hemphill PTTon 05-03-2022 aPTT Coag (Bld) [Time] 27.1 s Normal 22.3-36.2 [facility] Comment on above: Performed By: #### P TT, PT ####[facility] Cnrghifesw8[address] [place], [place] [address]Dr. Lizandro Hemphill UA RANDOM W/MICROSCOPICon BACTERIA NONE SEEN Normal NONE SEEN [facility] Comment on above: Performed By: #### U AMIC ####[facility] Mcxulqezzs49[address] [place], [place] [address]Dr. Lizandro Hemphill Bilirubin Ql (U) Negative Normal NEGATIVE [facility] Comment on above: Performed By: #### U AMIC ####[facility] Rauumtymqz9[address] [place], [place] [address]Dr. Lizandro Hemphill CAST NONE SEEN Normal NONE SEEN [facility] Comment on above: Performed By: #### U AMIC ####[facility] Deoaxiljgt224[address] [place], [place] [address]Dr. Lizandro Hemphill Clarity (U) CLEAR Normal CLEAR [facility] Comment on above: Performed By: #### U AMIC ####[facility] [address]kwonyyvng16[address] [place], [place] [address]Dr. Lizandro Hemphill Color (U) LT. YELLOW Normal YELLOW [facility] Comment on above: Performed By: #### U AMIC ####[facility] Ohqddkysak[address] [place] [address]Dr. Lizandro Hemphill Crystals LM Nom (Urine sed) NONE SEEN Normal NONE SEEN [facility] Comment on above: Performed By: #### U AMIC ####[facility] Jfrpqfhtbt9[address] [place] [id number]. Lizandro Hemphill Epithelial cells LM Ql (Urine sed) NONE SEEN Normal NONE SEEN /RARE [facility] Comment on above: Performed By: #### U AMIC ####[facility] Eraawvgduh[address] [place] [address]Dr. Lizandro Hemphill Glucose Ql (U) Negative Normal NEGATIVE [facility] Comment on above: Performed By: #### U AMIC ####[facility] Esqldlpqbt28[address] [place] [address]Dr. Lizandro Hemphill Hemoglobin Ql (U) Negative Normal NEGATIVE [facility] Comment on above: Performed By: #### U AMIC ####[facility] [address]tjtvfeazd[address] [place], [place] [address]Dr. Lizandro Hemphill Ketones Ql (U) 15 mg/dl Abnormal NEGATIVE [facility] Comment on above: Performed By: #### U AMIC ####[facility] Exvibxuarq[address] [place], [place] [address]Dr. Yilan Hemphill LEUKOCYTES Negative Normal NEGATIVE [facility] Comment on above: Performed By: #### U AMIC ####[facility] Zglxurzouz[address] [place] [address]Dr. Yilan Hemphill MUCOUS NONE SEEN Normal NONE SEEN [facility] Comment on above: Performed By: #### U AMIC ####[facility] Yppcooycoo69[address] [place] [address]Dr. Lizandro Hemphill Nitrite Ql (U) Negative Normal NEGATIVE [facility] Comment on above: Performed By: #### U AMIC ####[facility] Ztbgqmgsxs5076 [place] [address]Dr. Lizandro Hemphill pH (U) 7.0 [pH] Normal 5-9 [facility] Comment on above: Performed By: #### U AMIC ####[facility] Vglryovnhh2288 [place] [id number]. Lizandro Hemphill RBC 0-2 Normal 0-2 [facility] Comment on above: Performed By: #### U AMIC ####[facility] Yztkwngqlu0027 [place] [id number]. Shanikaannie Hemphill SPEC GRAVITY 1.010 Normal 1.005-<=1.025 [facility] Comment on above: Performed By: #### U AMIC ####[facility] Mtgffepfyb1324 [place] [address]Dr. Lizandro Hemphill UA PROTEIN Negative Normal NEGATIVE/ TRACE [facility] Comment on above: Performed By: #### U AMIC ####[facility] Gyyvqkzuml3557 [place] [address]Dr. Lizandro Hemphill Urobilinogen Qn (U) 0.2 {Cassy'U}/dL Normal 0.2 - 1.0 [facility] Comment on above: Performed By: #### U AMIC ####[facility] Qalqrrhqpn95[address] [place], [place] [address]Dr. Lizandro Hemphill WBC NONE SEEN Normal NONE SEEN [facility] Comment on above: Performed By: #### U AMIC ####[facility] Aaffgisonb1566 [place] [address]Dr. Lizandro Hemphill XR ABD FLAT UP_PA Allen 05-03 XR ABD FLAT UP_PA CH Normal [facility] CBC AUTO DIFFon 04-13-2022 BASO # 0.1 103/ul Normal 0.0-0.1 [facility] Comment on above: Performed By: #### C BC ####[facility] Rftuqgyvwz5865 [place] [address]Dr. Lizandro Hemphill Basophils/100 WBC (Bld) 0.7 % Normal 0.2-2.0 [facility] Comment on above: Performed By: #### C BC ####[facility] Yxglreqcij[address] [place], [place] [address]Dr. Lizandro Hemphill EO # 0.0 103/ul Normal 0.0-0.7 [facility] Comment on above: Performed By: #### C BC ####[facility] Moogmyfspi5969 [place] [address]Dr. Lizandro Hemphill Eosinophils/100 WBC (Bld) 0.3 % Critically low 0.9-7.0 [facility] Comment on above: Performed By: #### C BC ####[facility] Kxfxpheegn05[address] [place], [place] [address]Dr. Lizandro Hemphill Erythrocyte distribution width (RBC) [Ratio] 18.2 % Critically high 11.0-15.0 [facility] Comment on above: Performed By: #### C BC ####[facility] Xlzekqyzxx694[address] [place], [place] [address]Dr. Lizandro Hemphill Hematocrit (Bld) [Volume fraction] 32.1 % Critically low 36.0-48.0 [facility] Comment on above: Performed By: #### C BC ####[facility] Cjbeozewdv12[address] [place], [place] [address]Dr. Lizandro Hemphill Hemoglobin (Bld) [Mass/Vol] 10.2 g/dL Critically low 12.0-16.0 [facility] Comment on above: Performed By: #### C BC ####[facility] Bleyykdpnv6539[address] [place], [place] [address]Dr. Lizandro Hemphill IG # 0.03 10e3/ul Normal 0.00-0.03 [facility] Comment on above: Performed By: #### C BC ####[facility] Vyfhvpobae95[address] [place], [place] [address]Dr. Lizandro Hemphill IG % 0.3 % Normal 0.0-0.5 [facility] Comment on above: Performed By: #### C BC ####[facility] Bycaegghnv652467 [address] [place], [place] [address]Dr. Lizandro Hemphill LYMPH # 1.2 103/ul Normal 1.2-3.8 [facility] Comment on above: Performed By: #### C BC ####[facility] Tdqivfmuoa993167 [address] [place], [place] [address]Dr. Lizandro Hemphill Lymphocytes/100 WBC (Bld) 10.4 % Critically low 20.5-60.0 [facility] Comment on above: Performed By: #### C BC ####[facility] Dswqwrcpsk8201 [place] [address]DrCiro Hemphill MANUAL DIFF REQ NO Normal [facility] Comment on above: Performed By: #### C BC ####[facility] Ndttplschn9981 [place] [phone]. Lizandro Hemphill MCH (RBC) [Entitic mass] 26.4 pg Critically low 26.7-34.0 [facility] Comment on above: Performed By: #### C BC ####[facility] Bmjuffrfkf3588 [place] [address]Dr. Lizandro Hemphill MCHC (RBC) [Mass/Vol] 31.8 g/dL Normal 29.9-35.2 [facility] Comment on above: Performed By: #### C BC ####[facility] Rjlnwdcwbr46[address] [place], [place] [address]DrCiro Hemphill MCV (RBC) [Entitic vol] 83.2 fL Normal 81.0-99.0 [facility] Comment on above: Performed By: #### C BC ####[facility] Szowodpzbu59[address] [place], [place] [address]Dr. Lizandro Hemphill MONO # 1.0 103/ul Critically high 0.3-0.8 [facility] Comment on above: Performed By: #### C BC ####[facility] Ogtviaeekh8690 [place] [address]Dr. Lizandro Hemphill Monocytes/100 WBC (Bld) 9.0 % Normal 1.7-12.0 [facility] Comment on above: Performed By: #### C BC ####[facility] Uomzllkaes717667 [address] [place], [place] [address]DrCiro Hemphill NEUT # 9.0 103/ul Critically high 1.4-6.5 [facility] Comment on above: Performed By: #### C BC ####[facility] Bbcddgdgtm5144[address] [place], [place] [address]DrCiro Hemphill Neutrophils/100 WBC (Bld) 79.3 % Critically high 43.0-75.0 [facility] Comment on above: Performed By: #### C BC ####[facility] Onanzgjjzg1098 [place] [address]Dr. Shanikaannie Joby Platelet mean volume (Bld) [Entitic vol] 10.8 fL Normal 9.5-13.5 [facility] Comment on above: Performed By: #### C BC ####[facility] Qzqvaewvko5394 [place] [address]Dr. Lizandro Hemphill PLT 364 103/ul Normal 150-450 [facility] Comment on above: Performed By: #### C BC ####[facility] Mvkvgprzet6711 [place] [address]Dr. Lizandro Hemphill RBC 3.86 106/ul Critically low 4.20-5.40 [facility] Comment on above: Performed By: #### C BC ####[facility] Kaiakvzyjn2577 [place] [address]Dr. Lizandro Hemphill WBC 11.4 103/ul Critically high 4.0-11.0 [facility] Comment on above: Performed By: #### C BC ####[facility] Igklxwobzp3531 [place] [address]Dr. Lizandro Hemphill CT ABD/PELVIS WO CONon 04-13 CT ABD/PELVIS WO CON Normal [facility] PROF CHEM 8 (BAS METB)on Anion gap [Moles/Vol] 12.4 mmol/L Normal [facility] Comment on above: Performed By: #### B MP ####[facility] Qlyrrxjpzp0286 [place] [phone]. Lizandro Hemphill Calcium [Mass/Vol] 9.1 mg/dL Normal 8.5-10.1 [facility] Comment on above: Performed By: #### B MP ####[facility] Xnkpmeqehq8269 [place] [address]Dr. Lizandro Hemphill Chloride [Moles/Vol] 103 mmol/L Normal 98-107 [facility] Comment on above: Performed By: #### B MP ####[facility] Uezadfmcvh4364 [place] [phone]. Lizandro Hemphill CO2 [Moles/Vol] 28.1 mmol/L Normal 21.0-32.0 [facility] Comment on above: Performed By: #### B MP ####[facility] Ngzhrofvuz8758 [place] [phone]. Lizandro Hemphill Creatinine [Mass/Vol] 1.08 mg/dL Critically high 0.55-1.02 [facility] Comment on above: Performed By: #### B MP ####[facility] Xhyeriyias7349 [place] [phone]. Lizandro Hemphill EGFR-AF CYMRAES >60 Normal >=60 [facility] Comment on above: Performed By: #### B MP ####[facility] Oedwdvwbdh2652 [place] [address]Dr. Lizandro Joby EGFR-NON AF CYMRAES 52 mL/min/1.73m2 Critically low >=60 [facility] Comment on above: Performed By: #### B MP ####[facility] Klbxskactq5638 [place] [address]Dr. Lizandro Hemphill Glucose [Mass/Vol] 120 mg/dL Critically high 74-106 [facility] Comment on above: Performed By: #### B MP ####[facility] Fecqygqwte8511 [place] [address]Dr. Lizandro Hemphill Potassium [Moles/Vol] 3.5 mmol/L Normal 3.5-5.1 [facility] Comment on above: Performed By: #### B MP ####[facility] Udfuubbdqa9497 [place] [address]Dr. Lizandro Hemphill Sodium [Moles/Vol] 140 mmol/L Normal 136-145 [facility] Comment on above: Performed By: #### B MP ####[facility] Qwhjxkpewb1708 [place] [address]Dr. Lizandro Hemphill Urea nitrogen [Mass/Vol] 24.0 mg/dL Critically high 7.0-18.0 [facility] Comment on above: Performed By: #### B MP ####[facility] Xucmkrrwes5322 [place] [address]Dr. Lizandro Hemphill Urea nitrogen/Creatinin e [Mass ratio] 22.2 mg/mg Normal [facility] Comment on above: Performed By: #### B MP ####[facility] Zkmbyzkdqr34[address] [place], [place] [address]Dr. Lizandro Hemphill XR ANKLE RT MIN 3 VIEWSon XR ANKLE RT MIN 3 VIEWS Normal [facility] PRBC LEUKOREDUCEDon 03-23-20 PRBC LEUKOREDUCED Normal [facility] Comment on above: Performed By: #### P RBC ####[facility] Abpzqioqsb4[address] [place], [place] [address]Dr. Lizandro Hemphill CBC AUTO DIFFon 03-07-2022 BASO # 0.1 103/ul Normal 0.0-0.1 [facility] Comment on above: Performed By: #### C BC ####[facility] Ibsoascrne997267 [address] [place], [place] [address]Dr. Lizandro Hemphill Basophils/100 WBC (Bld) 1.1 % Normal 0.2-2.0 [facility] Comment on above: Performed By: #### C BC ####[facility] Olasvtrbwj405367 [address] [place], [place] [address]Dr. Lizandro Hemphill EO # 0.1 103/ul Normal 0.0-0.7 [facility] Comment on above: Performed By: #### C BC ####[facility] Vzwyxgmiyb603267 [address] [place], [place] [address]Dr. Lizandro Hemphill Eosinophils/100 WBC (Bld) 0.8 % Critically low 0.9-7.0 [facility] Comment on above: Performed By: #### C BC ####[facility] Htyaomqiip5536[address] [place], [place] [address]Dr. Lizandro Hemphill Erythrocyte distribution width (RBC) [Ratio] 15.9 % Critically high 11.0-15.0 [facility] Comment on above: Performed By: #### C BC ####[facility] Mbuykmorlv907967 [address] [place], [place] [address]Dr. Lizandro Hemphill Hematocrit (Bld) [Volume fraction] 31.0 % Critically low 36.0-48.0 [facility] Comment on above: Performed By: #### C BC ####[facility] Spbtpvfhyk7951 [place] [address]DrCiro Hemphill Hemoglobin (Bld) [Mass/Vol] 10.1 g/dL Critically low 12.0-16.0 [facility] Comment on above: Performed By: #### C BC ####[facility] Rniusdkden0570[address] [place], [place] [address]DrCiro Hemphill IG # 0.04 10e3/ul Critically high 0.00-0.03 [facility] Comment on above: Performed By: #### C BC ####[facility] Ypcbzgdylo99216[address] [place], [place] [address]DrCiro Hemphill IG % 0.4 % Normal 0.0-0.5 [facility] Comment on above: Performed By: #### C BC ####[facility] Rtvkyrkjvx421667 [address] [place], [place] [address]DrCiro Hemphill LYMPH # 1.3 103/ul Normal 1.2-3.8 [facility] Comment on above: Performed By: #### C BC ####[facility] Kuxgtjkhkk8815[address] [place], [place] [address]DrCiro Hemphill Lymphocytes/100 WBC (Bld) 13.7 % Critically low 20.5-60.0 [facility] Comment on above: Performed By: #### C BC ####[facility] Rtludedtwx194767 [address] [place], [place] [address]DrCiro Hemphill MANUAL DIFF REQ NO Normal [facility] Comment on above: Performed By: #### C BC ####[facility] Eewhwilbnb7889 [place] [address]DrCiro Hemphill MCH (RBC) [Entitic mass] 28.6 pg Normal 26.7-34.0 [facility] Comment on above: Performed By: #### C BC ####[facility] Clvoewvgra453767 [address] [place], [place] [address]DrCiro Hemphill MCHC (RBC) [Mass/Vol] 32.6 g/dL Normal 29.9-35.2 [facility] Comment on above: Performed By: #### C BC ####[facility] Dkvmxgcgtx9679 [place] [address]DrCiro Hemphill MCV (RBC) [Entitic vol] 87.8 fL Normal 81.0-99.0 [facility] Comment on above: Performed By: #### C BC ####[facility] Xddktpljag6612 [place] [address]DrCiro Hemphill MONO # 0.7 103/ul Normal 0.3-0.8 [facility] Comment on above: Performed By: #### C BC ####[facility] Mrygshdkkw3496 [place] [address]DrCiro Hemphill Monocytes/100 WBC (Bld) 7.7 % Normal 1.7-12.0 [facility] Comment on above: Performed By: #### C BC ####[facility] Osrqnullwk884867 [address] [place], [place] [address]DrCiro Hemphill NEUT # 7.2 103/ul Critically high 1.4-6.5 [facility] Comment on above: Performed By: #### C BC ####[facility] Aeaxepbqsc1650[address] [place], [place] [address]DrCiro Hemphill Neutrophils/100 WBC (Bld) 76.3 % Critically high 43.0-75.0 [facility] Comment on above: Performed By: #### C BC ####[facility] Cxrgswkmbt400067 [address] [place], [place] [address]DrCiro Hemphill Platelet mean volume (Bld) [Entitic vol] 10.3 fL Normal 9.5-13.5 [facility] Comment on above: Performed By: #### C BC ####[facility] Tvgceyuuhw[address] [place], [place] [address]DrCiro Hemphill PLT 382 103/ul Normal 150-450 [facility] Comment on above: Performed By: #### C BC ####[facility] Ryjsgbxazl[address] [place], [place] [address]DrCiro Hemphill RBC 3.53 106/ul Critically low 4.20-5.40 [facility] Comment on above: Performed By: #### C BC ####[facility] Ypzwuilsch0587 [place] [address]Dr. Lizandro Hemphill WBC 9.4 103/ul Normal 4.0-11.0 [facility] Comment on above: Performed By: #### C BC ####[facility] Jaynlwagpf8381 [place] [address]Dr. Lizandro Hemphill LIVER PROFILEon 03-07-2022 Albumin [Mass/Vol] 2.8 g/dL Critically low 3.4-5.0 [facility] Comment on above: Performed By: #### B MP, LIVER ####[facility] Lqsjebgyky4[address] [place], [place] [address]Dr. Lizandro Hemphill Albumin/Globulin [Mass ratio] 0.8 {ratio} Normal [facility] Comment on above: Performed By: #### B MP, LIVER ####[facility] Znlfnjnwba676567 [address] [place], [place] [address]Dr. Lizandro Hemphill ALP [Catalytic activity/Vol] 108 U/L Normal 46-116 [facility] Comment on above: Performed By: #### B MP, LIVER ####[facility] Ynikkvcasr5390[address] [place], [place] [address]Dr. Lizandro Hemphill ALT [Catalytic activity/Vol] 36 U/L Normal 14-59 [facility] Comment on above: Performed By: #### B MP, LIVER ####[facility] Mhhbrljbzl9023[address] [place], [place] [address]Dr. Lizandro Hemphill AST [Catalytic activity/Vol] 29 U/L Normal 15-37 [facility] Comment on above: Performed By: #### B MP, LIVER ####[facility] Ufkraowsad019[address] [place], [place] [address]Dr. Lizandro Hemphill BILI, CONJUGATED 0.1 mg/dL Normal 0.0-0.2 [facility] Comment on above: Performed By: #### B MP, LIVER ####[facility] Wpuagrtxme134[address] [place], [place] [address]Dr. Lizandro Hemphill Bilirubin [Mass/Vol] 0.2 mg/dL Normal 0.2-1.0 [facility] Comment on above: Performed By: #### B MP, LIVER ####[facility] Shkqfnstxj2945 [place] [address]Dr. Lizandro Hemphill Globulin (S) [Mass/Vol] 3.6 g/dL Normal [facility] Comment on above: Performed By: #### B MP, LIVER ####[facility] Hveombygzq982767 [address] [place], [place] [address]Dr. Lizandro Hemphill Protein [Mass/Vol] 6.4 g/dL Normal 6.4-8.2 [facility] Comment on above: Performed By: #### B MP, LIVER ####[facility] Npeemdpvrs1187[address] [place], [place] [address]Dr. Lizandro Hemphill PROF CHEM 8 (BAS METB)on Anion gap [Moles/Vol] 10.2 mmol/L Normal [facility] Comment on above: Performed By: #### B MP, LIVER ####[facility] Hxhhyayekz7315[address] [place], [place] [address]Dr. Lizandro Hemphill Calcium [Mass/Vol] 8.7 mg/dL Normal 8.5-10.1 [facility] Comment on above: Performed By: #### B MP, LIVER ####[facility] Dxtaeeecca301[address] [place], [place] [address]Dr. Lizandro Hemphill Chloride [Moles/Vol] 104 mmol/L Normal 98-107 [facility] Comment on above: Performed By: #### B MP, LIVER ####[facility] Tjgzodmxjn040367 [address] [place], [place] [address]Dr. Lizandro Hemphill CO2 [Moles/Vol] 27.8 mmol/L Normal 21.0-32.0 [facility] Comment on above: Performed By: #### B MP, LIVER ####[facility] Wzekguzivi7554 [place] [address]Dr. Lizandro Hemphill Creatinine [Mass/Vol] 0.72 mg/dL Normal 0.55-1.02 [facility] Comment on above: Performed By: #### B MP, LIVER ####[facility] Pogxpvuhui6038 [place] [phone]. Lizandro Hemphill EGFR-AF CYMRAES >60 Normal >=60 [facility] Comment on above: Performed By: #### B MP, LIVER ####[facility] Awdlhsgnse8593 [place] [id number]. Lizandro Hemphill EGFR-NON AF CYMRAES >60 Normal >=60 [facility] Comment on above: Performed By: #### B MP, LIVER ####[facility] Zvcjlsdxlq4690 [place] [id number]. Lizandro Hemphill Glucose [Mass/Vol] 97 mg/dL Normal 74-106 [facility] Comment on above: Performed By: #### B MP, LIVER ####[facility] Eilgfhcoch3018 [place] [address]Dr. Lizandro Hemphill Potassium [Moles/Vol] 4.0 mmol/L Normal 3.5-5.1 [facility] Comment on above: Performed By: #### B MP, LIVER ####[facility] Qwxhplkwvl4117 [place] [address]Dr. Lizandro Hemphill Sodium [Moles/Vol] 138 mmol/L Normal 136-145 [facility] Comment on above: Performed By: #### B MP, LIVER ####[facility] Byygrajsps9942 [place] [id number]. Lizandro Hemphill Urea nitrogen [Mass/Vol] 13.0 mg/dL Normal 7.0-18.0 [facility] Comment on above: Performed By: #### B MP, LIVER ####[facility] Kwwmulkvoe7237 [place] [id number]. Lizandro Hemphill Urea nitrogen/Creatinin e [Mass ratio] 18.1 mg/mg Normal [facility] Comment on above: Performed By: #### B MP, LIVER ####[facility] Chwkvfrenb5334[address] [place], [place] [address]Dr. Lizandro Hemphill PROTIMEon 03-07-2022 INR Coag (PPP) [Relative time] 0.94 {INR} Normal [facility] Comment on above: Performed By: #### P T ####[facility] Oaeylaufty6643 [place] [address]Dr. Lizandro Hemphill INR GUIDELINES SEE BELOW Normal [facility] Comment on above: Result Comment: GUEVARA RED INR: 2.0 - 3.0 CONDITIONS NOT LISTED BELOW 2.5 - 3.5 FOR PROSTHETIC HEART VALVE REPLACEMENT 2.5 - 3.5 RECURRENT THROMBOSIS Performed By: #### P T ####[facility] Bryquzgqti9[address] [place], [place] [address]Dr. Lizandro Hemphill PT Coag (PPP) [Time] 10.2 s Normal 9.0-11.6 [facility] Comment on above: Performed By: #### P T ####[facility] Olmbgllncm77[address] [place], [place] [address]Dr. Lizandro Hemphill CBC AUTO DIFFon 03-06-2022 BASO # 0.1 103/ul Normal 0.0-0.1 [facility] Comment on above: Performed By: #### C BC ####[facility] Hxbpdgekyc4611[address] [place], [place] [address]Dr. Lizandro Hemphill Basophils/100 WBC (Bld) 0.6 % Normal 0.2-2.0 [facility] Comment on above: Performed By: #### C BC ####[facility] Iruwwpbhsk0380[address] [place], [place] [address]Dr. Lizandro Hemphill EO # 0.2 103/ul Normal 0.0-0.7 [facility] Comment on above: Performed By: #### C BC ####[facility] Lyskbsgohq8037[address] [place], [place] [address]Dr. Lizandro Hemphill Eosinophils/100 WBC (Bld) 1.4 % Normal 0.9-7.0 [facility] Comment on above: Performed By: #### C BC ####[facility] Hvomvbrebm5[address] [place], [place] [address]Dr. Lizandro Hemphill Erythrocyte distribution width (RBC) [Ratio] 16.1 % Critically high 11.0-15.0 [facility] Comment on above: Performed By: #### C BC ####[facility] Qpmaldhkvp6916 [place] [address]Dr. Lizandro Hemphill Hematocrit (Bld) [Volume fraction] 28.7 % Critically low 36.0-48.0 [facility] Comment on above: Performed By: #### C BC ####[facility] Kbganqskxm0896 [place] [address]Dr. Lizandro Hemphill Hemoglobin (Bld) [Mass/Vol] 9.3 g/dL Critically low 12.0-16.0 [facility] Comment on above: Performed By: #### C BC ####[facility] Lseqiyjhfz4549[address] [place], [place] [address]Dr. Lizandro Joby IG # 0.03 10e3/ul Normal 0.00-0.03 [facility] Comment on above: Performed By: #### C BC ####[facility] Ayznzejcpa657367 [address] [place], [place] [address]Dr. Lizandro Hemphill IG % 0.3 % Normal 0.0-0.5 [facility] Comment on above: Performed By: #### C BC ####[facility] Bcocouiegn080[address] [place], [place] [address]Dr. Lizandro Joby LYMPH # 1.5 103/ul Normal 1.2-3.8 [facility] Comment on above: Performed By: #### C BC ####[facility] Bycmlwuqzp180[address] [place], [place] [address]DrCiro Lizandro Joby Lymphocytes/100 WBC (Bld) 13.4 % Critically low 20.5-60.0 [facility] Comment on above: Performed By: #### C BC ####[facility] Ixydrzumaq6174 [place] [address]DrCiro Shanikaannie Hemphill MANUAL DIFF REQ NO Normal [facility] Comment on above: Performed By: #### C BC ####[facility] Pysxnelxmi14[address] [place], [place] [address]DrCiro Lizandro Joby MCH (RBC) [Entitic mass] 28.5 pg Normal 26.7-34.0 [facility] Comment on above: Performed By: #### C BC ####[facility] Bfuhqjxpjp0[address] [place], [place] [address]Dr. Lizandro Hemphill MCHC (RBC) [Mass/Vol] 32.4 g/dL Normal 29.9-35.2 [facility] Comment on above: Performed By: #### C BC ####[facility] Vvjihfjswu94[address] [place] [id number]. Lziandro Hemphill MCV (RBC) [Entitic vol] 88.0 fL Normal 81.0-99.0 [facility] Comment on above: Performed By: #### C BC ####[facility] Eprkgobsgd2465 [place] [phone]. Lizandro Hemphill MONO # 0.9 103/ul Critically high 0.3-0.8 [facility] Comment on above: Performed By: #### C BC ####[facility] Ijcharpiqt8[address] [place] [address]Dr. Shanikaannie Hemphill Monocytes/100 WBC (Bld) 8.7 % Normal 1.7-12.0 [facility] Comment on above: Performed By: #### C BC ####[facility] Fqnzdhprna17[address] [place] [address]Dr. Lizandro Joby NEUT # 8.2 103/ul Critically high 1.4-6.5 [facility] Comment on above: Performed By: #### C BC ####[facility] Kvyeqmrzud[address] [place] [address]Dr. Lizandro Hemphill Neutrophils/100 WBC (Bld) 75.6 % Critically high 43.0-75.0 [facility] Comment on above: Performed By: #### C BC ####[facility] Ymdoamezoc5810 [place] [phone]. Lizandro Hemphill Platelet mean volume (Bld) [Entitic vol] 10.4 fL Normal 9.5-13.5 [facility] Comment on above: Performed By: #### C BC ####[facility] Uvdjgxonlu2013 [place] [phone]. Lizandro Joby PLT 351 103/ul Normal 150-450 [facility] Comment on above: Performed By: #### C BC ####[facility] Focuvfsnja0676 [place] [phone]. Shanikaannie Joby RBC 3.26 106/ul Critically low 4.20-5.40 [facility] Comment on above: Performed By: #### C BC ####[facility] Ykshsmuszr1467 [place] [phone]. Shanikaannie Joby WBC 10.9 103/ul Normal 4.0-11.0 [facility] Comment on above: Performed By: #### C BC ####[facility] Ghaqmvitpv7[address] [place] [address]Dr. Shanikaannie Joby CT HIP LT WO CONon CT HIP LT WO CON Normal [facility] LIVER PROFILEon 03-06-2022 Albumin [Mass/Vol] 2.6 g/dL Critically low 3.4-5.0 [facility] Comment on above: Performed By: #### L ROXANA BMP ####[facility] Arxlgnkpb[address] [place], [place] [address]Dr. Lizandro Hemphill Albumin/Globulin [Mass ratio] 0.8 {ratio} Normal [facility] Comment on above: Performed By: #### L ROXANA BMP ####[facility] Vwmsfkudex24[address] [place] [address]Dr. Lizandro Hemphill ALP [Catalytic activity/Vol] 99 U/L Normal 46-116 [facility] Comment on above: Performed By: #### L ROXANA BMP ####[facility] Vipjphctat4009 [place] [address]Dr. Lizandro Hemphill ALT [Catalytic activity/Vol] 36 U/L Normal 14-59 [facility] Comment on above: Performed By: #### L IVRAUL, BMP ####[facility] Meuoacllck5[address] [place] [address]Dr. Lizandro Hemphill AST [Catalytic activity/Vol] 38 U/L Critically high 15-37 [facility] Comment on above: Performed By: #### L IVRAUL, BMP ####[facility] Ndtxroidmu7219 [place] [address]Dr. Lizandro Hemphill BILI, CONJUGATED 0.0 mg/dL Normal 0.0-0.2 [facility] Comment on above: Performed By: #### L IVER, BMP ####[facility] Wvwlukfdfc230[address] [place], [place] [address]Dr. Lizandro Hemphill Bilirubin [Mass/Vol] 0.1 mg/dL Critically low 0.2-1.0 [facility] Comment on above: Performed By: #### L IVER, BMP ####[facility] Zqtxksqykd727[address] [place], [place] [address]Dr. Lizandro Hemphill Globulin (S) [Mass/Vol] 3.4 g/dL Normal [facility] Comment on above: Performed By: #### L IVER, BMP ####[facility] Dopjdlnwvp7256[address] [place], [place] [address]Dr. Lizandro Hemphill Protein [Mass/Vol] 6.0 g/dL Critically low 6.4-8.2 [facility] Comment on above: Performed By: #### L IVRAUL, BMP ####[facility] Vopgzmtzqt732[address] [place], [place] [address]Dr. Lizandro Hemphill PROF CHEM 8 (BAS METB)on Anion gap [Moles/Vol] 11.1 mmol/L Normal [facility] Comment on above: Performed By: #### L IVRAUL, BMP ####[facility] Cepfrnzxzp212[address] [place], [place] [address]Dr. Lizandro Hemphill Calcium [Mass/Vol] 8.4 mg/dL Critically low 8.5-10.1 [facility] Comment on above: Performed By: #### L IVER, BMP ####[facility] Ayphqarqwn577[address] [place], [place] [address]Dr. Lizandro Hemphill Chloride [Moles/Vol] 105 mmol/L Normal 98-107 [facility] Comment on above: Performed By: #### L IVER, BMP ####[facility] Eryanhgsua326167 [address] [place], [place] [address]Dr. Lizandro Hemphill CO2 [Moles/Vol] 26.6 mmol/L Normal 21.0-32.0 [facility] Comment on above: Performed By: #### L IVER, BMP ####[facility] Phrfdjlbvq1585 [place] [phone]. Lizandro Hemphill Creatinine [Mass/Vol] 0.74 mg/dL Normal 0.55-1.02 [facility] Comment on above: Performed By: #### Diana SCHMIDT, BMP ####[facility] Onkrmdofol9337 [place] [phone]. Lizandro Hemphill EGFR-AF CYMRAES >60 Normal >=60 [facility] Comment on above: Performed By: #### Diana SCHMIDT, BMP ####[facility] Ibaxpovsxd2067 [place] [phone]. Lizandro Hemphill EGFR-NON AF CYMRAES >60 Normal >=60 [facility] Comment on above: Performed By: #### Diana SCHMIDT BMP ####[facility] Uodcwvxvxd2608 [place] [phone]. Lizandro Hemphill Glucose [Mass/Vol] 104 mg/dL Normal 74-106 [facility] Comment on above: Performed By: #### Diana SCHMIDT BMP ####[facility] Oijzhltqqa0889 [place] [phone]. Lizandro Hemphill Potassium [Moles/Vol] 3.7 mmol/L Normal 3.5-5.1 [facility] Comment on above: Performed By: #### Diana SCHMIDT BMP ####[facility] Qffynzunqr8516 [place] [phone]. Lizandro Hemphill Sodium [Moles/Vol] 139 mmol/L Normal 136-145 [facility] Comment on above: Performed By: #### Diana SCHMIDT, BMP ####[facility] Tgqgqtpgzy2986 [place] [phone]. Lizandro Hemphill Urea nitrogen [Mass/Vol] 13.0 mg/dL Normal 7.0-18.0 [facility] Comment on above: Performed By: #### Diana SCHMIDT BMP ####[facility] Mibocvqnpe2767 [place] [phone]. Lizandro Hemphill Urea nitrogen/Creatinin e [Mass ratio] 17.6 mg/mg Normal [facility] Comment on above: Performed By: #### ELSA VERA ####[facility] Jsmuedtitp07[address] [place], [place] [address]Dr. Lizandro Hemphill PROTIMEon 03-06-2022 INR Coag (PPP) [Relative time] {INR} Normal [facility] Comment on above: Performed By: #### P T ####[facility] Efboucpjfx0386[address] [place], [place] [address]Dr. Lizandro Hemphill INR GUIDELINES SEE BELOW Normal [facility] Comment on above: Result Comment: GUEVARA RED INR: 2.0 - 3.0 CONDITIONS NOT LISTED BELOW 2.5 - 3.5 FOR PROSTHETIC HEART VALVE REPLACEMENT 2.5 - 3.5 RECURRENT THROMBOSIS Performed By: #### P T ####[facility] Rkddhjdqvy16[address] [place], [place] [address]Dr. Lizandro Joby PT Coag (PPP) [Time] 9.7 s Normal 9.0-11.6 [facility] Comment on above: Performed By: #### P T ####[facility] Opmblmlcqm018367 [address] [place], [place] [address]Dr. Lizandro Joby CBC AUTO DIFFon 03-05-2022 BASO # 0.1 103/ul Normal 0.0-0.1 [facility] Comment on above: Performed By: #### C BC ####[facility] Basmcdezdu4046[address] [place], [place] [address]Dr. Lizandro Hemphill Basophils/100 WBC (Bld) 0.8 % Normal 0.2-2.0 [facility] Comment on above: Performed By: #### C BC ####[facility] Gqdyyvzrmk024[address] [place], [place] [address]Dr. Lizandro Hemphill EO # 0.1 103/ul Normal 0.0-0.7 [facility] Comment on above: Performed By: #### C BC ####[facility] Jjonkhfbpp287167 [address] [place], [place] [address]Dr. Lizandro Hemphill Eosinophils/100 WBC (Bld) 1.1 % Normal 0.9-7.0 [facility] Comment on above: Performed By: #### C BC ####[facility] Lvdkxsguag23[address] [place] [address]Dr. Lizandro Hemphill Erythrocyte distribution width (RBC) [Ratio] 15.8 % Critically high 11.0-15.0 [facility] Comment on above: Performed By: #### C BC ####[facility] Ybjutjajkw25[address] [place], [place] [address]Dr. Lizandro Hemphill Hematocrit (Bld) [Volume fraction] 25.6 % Critically low 36.0-48.0 [facility] Comment on above: Performed By: #### C BC ####[facility] Pjpfkjmhmm920767 [address] [place], [place] [address]Dr. Shanikaannie Hemphill Hemoglobin (Bld) [Mass/Vol] 8.6 g/dL Critically low 12.0-16.0 [facility] Comment on above: Performed By: #### C BC ####[facility] Suzqzxgtrs108367 [address] [place], [place] [address]Dr. Lizandro Hemphill IG # 0.05 10e3/ul Critically high 0.00-0.03 [facility] Comment on above: Performed By: #### C BC ####[facility] Erxxrbzaid470967 [address] [place], [place] [address]Dr. Lizandro Hemphill IG % 0.6 % Critically high 0.0-0.5 [facility] Comment on above: Performed By: #### C BC ####[facility] Ckzletneuv34[address] [place], [place] [address]Dr. Lizandro Hemphill LYMPH # 1.2 103/ul Normal 1.2-3.8 [facility] Comment on above: Performed By: #### C BC ####[facility] Danxlvencf282267 [address] [place], [place] [address]Dr. Lizandro Hemphill Lymphocytes/100 WBC (Bld) 14.4 % Critically low 20.5-60.0 [facility] Comment on above: Performed By: #### C BC ####[facility] Xjrdcpngnt489367 [address] [place], [place] [address]Dr. Lizandro Hemphill MANUAL DIFF REQ NO Normal [facility] Comment on above: Performed By: #### C BC ####[facility] Ofwntsfszk[address] [place], [place] [address]Dr. Lizandro Hemphill MCH (RBC) [Entitic mass] 29.1 pg Normal 26.7-34.0 [facility] Comment on above: Performed By: #### C BC ####[facility] Vxhaeeinfx4784 [place] [address]Dr. Lizandro Hemphill MCHC (RBC) [Mass/Vol] 33.6 g/dL Normal 29.9-35.2 [facility] Comment on above: Performed By: #### C BC ####[facility] Xlnrdxayap9660 [place] [address]Dr. Lizandro Hemphill MCV (RBC) [Entitic vol] 86.5 fL Normal 81.0-99.0 [facility] Comment on above: Performed By: #### C BC ####[facility] Uqllshzkfc107[address] [place], [place] [address]Dr. Lizandro Joby MONO # 0.7 103/ul Normal 0.3-0.8 [facility] Comment on above: Performed By: #### C BC ####[facility] Rpbqjayycd5[address] [place], [place] [address]Dr. Shanikaannie Hemphill Monocytes/100 WBC (Bld) 8.2 % Normal 1.7-12.0 [facility] Comment on above: Performed By: #### C BC ####[facility] Famgadbppx076[address] [place], [place] [address]Dr. Lizandro Hemphill NEUT # 6.3 103/ul Normal 1.4-6.5 [facility] Comment on above: Performed By: #### C BC ####[facility] Tjlvcsgkss9[address] [place], [place] [address]Dr. Shanikaannie Hemphill Neutrophils/100 WBC (Bld) 74.9 % Normal 43.0-75.0 [facility] Comment on above: Performed By: #### C BC ####[facility] Oemfegonny4[address] [place], [place] [address]Dr. Lizandro Joby Platelet mean volume (Bld) [Entitic vol] 9.8 fL Normal 9.5-13.5 [facility] Comment on above: Performed By: #### C BC ####[facility] Jxavyspzpj8[address] [place], [place] [address]Bh. Lizandro Hemphill PLT 331 103/ul Normal 150-450 [facility] Comment on above: Performed By: #### C BC ####[facility] Jstwsicfdj8718 [place] [phone]. Lizandro Hemphill RBC 2.96 106/ul Critically low 4.20-5.40 [facility] Comment on above: Performed By: #### C BC ####[facility] Sijsrgolva6954 [place] [phone]. Lizandro Hemphill WBC 8.5 103/ul Normal 4.0-11.0 [facility] Comment on above: Performed By: #### C BC ####[facility] Fbtkclmmza0908 [place] [phone]. Lizandro Hemphill LIVER PROFILEon 03-05-2022 Albumin [Mass/Vol] 2.4 g/dL Critically low 3.4-5.0 [facility] Comment on above: Performed By: #### Diana SCHMIDT BMP ####[facility] Kldtscsvtc0014 [place] [phone]. Lizandro Hemphill Albumin/Globulin [Mass ratio] 0.8 {ratio} Normal [facility] Comment on above: Performed By: #### Diana SCHMIDT BMP ####[facility] Nxkfnpupnx0770 [place] [phone]. Lizandro Hemphill ALP [Catalytic activity/Vol] 88 U/L Normal 46-116 [facility] Comment on above: Performed By: #### Diana SCHMIDT BMP ####[facility] Jaifpgxwtm3209 [place] [phone]. Lizandro Hemphill ALT [Catalytic activity/Vol] 35 U/L Normal 14-59 [facility] Comment on above: Performed By: #### Diana SCHMIDT BMP ####[facility] Igcgwaxdej8138 [place] [phone]. Lizandro Hemphill AST [Catalytic activity/Vol] 41 U/L Critically high 15-37 [facility] Comment on above: Performed By: #### L IVER, BMP ####[facility] Mmkwqzgaoe9820 [place] [address]Dr. Lizandro Hemphill BILI, CONJUGATED 0.1 mg/dL Normal 0.0-0.2 [facility] Comment on above: Performed By: #### L IVER, BMP ####[facility] Dquxytkqaf5672 [place] [address]Dr. Lizandro Hemphill Bilirubin [Mass/Vol] 0.1 mg/dL Critically low 0.2-1.0 [facility] Comment on above: Performed By: #### L IVER, BMP ####[facility] Ifyravsrsq8385 [place] [address]Dr. Lizandro Hemphill Globulin (S) [Mass/Vol] 3.1 g/dL Normal [facility] Comment on above: Performed By: #### L IVRAUL, BMP ####[facility] Ycimuatfts56[address] [place], [place] [address]Dr. Lizandro Hemphill Protein [Mass/Vol] 5.5 g/dL Critically low 6.4-8.2 [facility] Comment on above: Performed By: #### L IVRAUL, BMP ####[facility] Upulqrcbti5[address] [place], [place] [address]Dr. Lizandro Hemphill OCC BLD IMMUNOASSAYon 2021 OCCULT BLOOD Positive Abnormal NEGATIVE [facility] Comment on above: Performed By: #### O GREGORIO ####[facility] Aphmynjyec8[address] [place], [place] [address]Dr. Lizandro Hemphill PROF CHEM 8 (BAS METB)on Anion gap [Moles/Vol] 11.2 mmol/L Normal [facility] Comment on above: Performed By: #### L IVER, BMP ####[facility] Ovifuukotn06[address] [place], [place] [address]Dr. Lizandro Hemphill Calcium [Mass/Vol] 7.7 mg/dL Critically low 8.5-10.1 [facility] Comment on above: Performed By: #### L IVER, BMP ####[facility] Uafyyrzpzr024[address] [place], [place] [address]Dr. Lizandro Hemphill Chloride [Moles/Vol] 108 mmol/L Critically high 98-107 [facility] Comment on above: Performed By: #### Diana SCHMIDT, BMP ####[facility] Znzdhkuudr4494 [place] [address]Dr. Lizandro Hemphill CO2 [Moles/Vol] 25.4 mmol/L Normal 21.0-32.0 [facility] Comment on above: Performed By: #### Diana SCHMIDT, BMP ####[facility] Eqoxdslcyt6746 [place] [address]Dr. Lizandro Hemphill Creatinine [Mass/Vol] 0.62 mg/dL Normal 0.55-1.02 [facility] Comment on above: Performed By: #### Diana SCHMIDT BMP ####[facility] Jxgzthkexg3195 [place] [address]Dr. Lizandro Hemphill EGFR-AF CYMRAES >60 Normal >=60 [facility] Comment on above: Performed By: #### Diana SCHMIDT BMP ####[facility] Cvktkshylw23[address] [place], [place] [address]Dr. Lizandro Hemphill EGFR-NON AF CYMRAES >60 Normal >=60 [facility] Comment on above: Performed By: #### Diana SCHMIDT BMP ####[facility] Hqltyawnkl05[address] [place], [place] [address]Dr. Lizandro Hemphill Glucose [Mass/Vol] 115 mg/dL Critically high 74-106 [facility] Comment on above: Performed By: #### Diana SCHMIDT BMP ####[facility] Qkcpbjetiq6388[address] [place], [place] [address]Dr. Lizandro Hemphill Potassium [Moles/Vol] 3.6 mmol/L Normal 3.5-5.1 [facility] Comment on above: Performed By: #### L ROXANA, BMP ####[facility] Lahweufkhq3784 [place] [address]Dr. Lizandro Hemphill Sodium [Moles/Vol] 141 mmol/L Normal 136-145 [facility] Comment on above: Performed By: #### L ROXANA BMP ####[facility] Hmtganyuho8712 [place] [address]Dr. Lizandro Hemphill Urea nitrogen [Mass/Vol] 9.0 mg/dL Normal 7.0-18.0 [facility] Comment on above: Performed By: #### L ELSA SCHMIDT ####[facility] Busfjzbhpy4669 [place] [address]Dr. Lizandro Hemphill Urea nitrogen/Creatinin e [Mass ratio] 14.5 mg/mg Normal [facility] Comment on above: Performed By: #### L ELSA SCHMIDT ####[facility] Clgrzfwdcc3687 [place] [address]DrCiro Hemphill PROTIMEon 03-05-2022 INR Coag (PPP) [Relative time] 0.93 {INR} Normal [facility] Comment on above: Performed By: #### P T ####[facility] Vbanzvdfid9[address] [place], [place] [address]DrCiro Hemphill INR GUIDELINES SEE BELOW Normal [facility] Comment on above: Result Comment: GUEVARA RED INR: 2.0 - 3.0 CONDITIONS NOT LISTED BELOW 2.5 - 3.5 FOR PROSTHETIC HEART VALVE REPLACEMENT 2.5 - 3.5 RECURRENT THROMBOSIS Performed By: #### P T ####[facility] Cypcidereu7[address] [place], [place] [address]DrCiro Hemphill PT Coag (PPP) [Time] 10.1 s Normal 9.0-11.6 [facility] Comment on above: Performed By: #### P T ####[facility] Pevepfzxdb2165[address] [place], [place] [address]DrCiro Hemphill CBC AUTO DIFFon 03-04-2022 BASO # 0.1 103/ul Normal 0.0-0.1 [facility] Comment on above: Performed By: #### C BC ####[facility] Hxdmeksszx1970[address] [place], [place] [address]DrCiro Hemphill Basophils/100 WBC (Bld) 0.8 % Normal 0.2-2.0 [facility] Comment on above: Performed By: #### C BC ####[facility] Iosbnsmxue0[address] [place], [place] [address]DrCiro Hemphill EO # 0.1 103/ul Normal 0.0-0.7 [facility] Comment on above: Performed By: #### C BC ####[facility] Rugeujnrwt9160 [place] [address]Dr. Shanikaannie Hemphill Eosinophils/100 WBC (Bld) 0.6 % Critically low 0.9-7.0 [facility] Comment on above: Performed By: #### C BC ####[facility] Tuxyymaqhj5147[address] [place], [place] [address]Dr. Lizandro Hemphill Erythrocyte distribution width (RBC) [Ratio] 15.3 % Critically high 11.0-15.0 [facility] Comment on above: Performed By: #### C BC ####[facility] Nkrgnzffcp8299[address] [place], [place] [address]Dr. Lizandro Hemphill Hematocrit (Bld) [Volume fraction] 30.5 % Critically low 36.0-48.0 [facility] Comment on above: Performed By: #### C BC ####[facility] Tmosbztulq2598[address] [place], [place] [address]Dr. Lizandro Hemphill Hemoglobin (Bld) [Mass/Vol] 10.3 g/dL Critically low 12.0-16.0 [facility] Comment on above: Performed By: #### C BC ####[facility] Hnvvhhatsp594[address] [place], [place] [address]Dr. Lizandro Hemphill IG # 0.05 10e3/ul Critically high 0.00-0.03 [facility] Comment on above: Performed By: #### C BC ####[facility] Dwlydhcjpd129167 [address] [place], [place] [address]Dr. Lizandro Hemphill IG % 0.5 % Normal 0.0-0.5 [facility] Comment on above: Performed By: #### C BC ####[facility] Ezuhvovjyw265[address] [place], [place] [address]Dr. Lizandro Hemphill LYMPH # 1.7 103/ul Normal 1.2-3.8 [facility] Comment on above: Performed By: #### C BC ####[facility] Imfieeqopq637367 [address] [place], [place] [address]DrCiro Hemphill Lymphocytes/100 WBC (Bld) 16.1 % Critically low 20.5-60.0 [facility] Comment on above: Performed By: #### C BC ####[facility] Hszavvisyj2901 [place] [address]DrCiro Hemphill MANUAL DIFF REQ NO Normal [facility] Comment on above: Performed By: #### C BC ####[facility] Syawsfirkh5475 [place] [address]DrCiro Hemphill MCH (RBC) [Entitic mass] 28.5 pg Normal 26.7-34.0 [facility] Comment on above: Performed By: #### C BC ####[facility] Utguunlcam7713 [place] [address]DrCiro Hemphill MCHC (RBC) [Mass/Vol] 33.8 g/dL Normal 29.9-35.2 [facility] Comment on above: Performed By: #### C BC ####[facility] Tcyffdcnhi799[address] [place], [place] [address]DrCiro Hemphill MCV (RBC) [Entitic vol] 84.5 fL Normal 81.0-99.0 [facility] Comment on above: Performed By: #### C BC ####[facility] Wujejdcgnw05[address] [place], [place] [address]DrCiro Hemphill MONO # 0.7 103/ul Normal 0.3-0.8 [facility] Comment on above: Performed By: #### C BC ####[facility] Xtdhvosjqx9128 [place] [address]DrCiro Hemphill Monocytes/100 WBC (Bld) 7.1 % Normal 1.7-12.0 [facility] Comment on above: Performed By: #### C BC ####[facility] Midzlutgel15[address] [place], [place] [address]DrCiro Hemphill NEUT # 7.8 103/ul Critically high 1.4-6.5 [facility] Comment on above: Performed By: #### C BC ####[facility] Tmzhdmdirc07[address] [place], [place] [address]DrCiro Hemphill Neutrophils/100 WBC (Bld) 74.9 % Normal 43.0-75.0 [facility] Comment on above: Performed By: #### C BC ####[facility] Opgasfptov2662 [place] [id number]. Lizandro Hemphill Platelet mean volume (Bld) [Entitic vol] 9.6 fL Normal 9.5-13.5 [facility] Comment on above: Performed By: #### C BC ####[facility] Khfmkfogvt0341 [place] [address]Dr. Lizandro Hemphill PLT 374 103/ul Normal 150-450 [facility] Comment on above: Performed By: #### C BC ####[facility] Ttmzvzyadw7[address] [place], [place] [address]Dr. Lizandro Hemphill RBC 3.61 106/ul Critically low 4.20-5.40 [facility] Comment on above: Performed By: #### C BC ####[facility] Qxgwbsultm12[address] [place], [place] [address]Dr. Lizandro Hemphill WBC 10.4 103/ul Normal 4.0-11.0 [facility] Comment on above: Performed By: #### C BC ####[facility] Pxgbtrcwfz319[address] [place], [place] [address]Dr. Lizandro Hemphill BASO # 0.1 103/ul Normal 0.0-0.1 [facility] [facility] Comment on above: Performed By: #### C BC ####[facility] Dpggiygoyz[address] [place], [place] [id number]. Lizandro Hemphill Basophils/100 WBC (Bld) 0.8 % Normal 0.2-2.0 [facility] Comment on above: Performed By: #### C BC ####[facility] Jnioqybpzj[address] [place], [place] [address]Dr. Lizandro Hemphill EO # 0.1 103/ul Normal 0.0-0.7 [facility] Comment on above: Performed By: #### C BC ####[facility] Iwsufrmhap[address] [place], [place] [address]Dr. Lizandro Hemphill Eosinophils/100 WBC (Bld) 0.6 % Critically low 0.9-7.0 [facility] Comment on above: Performed By: #### C BC ####[facility] Lxzvqntzjn75[address] [place] [address]Dr. Lizandro Hemphill Erythrocyte distribution width (RBC) [Ratio] 15.1 % Critically high 11.0-15.0 [facility] Comment on above: Performed By: #### C BC ####[facility] Kgdyeejmhe[address] [place], [place] [address]Dr. Lizandro Hemphill Hematocrit (Bld) [Volume fraction] 25.7 % Critically low 36.0-48.0 [facility] Comment on above: Performed By: #### C BC ####[facility] Aptepaoqly07[address] [place], [place] [address]Dr. Shanikaannie Joby Hemoglobin (Bld) [Mass/Vol] 8.4 g/dL Critically low 12.0-16.0 [facility] Comment on above: Result Comment: aurora mcclendon given Performed By: #### C BC ####[facility] Gdhtalnqst26[address] [place], [place] [address]Dr. Shanikaannie Joby IG # 0.07 10e3/ul Critically high 0.00-0.03 [facility] Comment on above: Performed By: #### C BC ####[facility] Zxhykzmwcf[address] [place], [place] [address]Dr. Shanikaannie Joby IG % 0.6 % Critically high 0.0-0.5 [facility] Comment on above: Performed By: #### C BC ####[facility] Odiexbidir1116[address] [place], [place] [address]Dr. Lizandro Hemphill LYMPH # 1.5 103/ul Normal 1.2-3.8 [facility] Comment on above: Performed By: #### C BC ####[facility] Zqjfaklkui4[address] [place], [place] [address]Dr. Shanikaannie Joby Lymphocytes/100 WBC (Bld) 13.3 % Critically low 20.5-60.0 [facility] Comment on above: Performed By: #### C BC ####[facility] Jnowlizezz[address] [place], [place] [address]Dr. Shanikaannie Hemphill MANUAL DIFF REQ NO Normal [facility] Comment on above: Performed By: #### C BC ####[facility] Rvkmntlsan[address] [place] [address]Dr. Lizandro Hemphill MCH (RBC) [Entitic mass] 28.4 pg Normal 26.7-34.0 [facility] Comment on above: Performed By: #### C BC ####[facility] Aaeanstrux2476[address] [place], [place] [address]Dr. Lizandro Joby MCHC (RBC) [Mass/Vol] 32.7 g/dL Normal 29.9-35.2 [facility] Comment on above: Performed By: #### C BC ####[facility] Yhpaqkrlbf[address] [place], [place] [address]Dr. Lizandro Joby MCV (RBC) [Entitic vol] 86.8 fL Normal 81.0-99.0 [facility] Comment on above: Performed By: #### C BC ####[facility] Qpydvtycli5175[address] [place], [place] [address]Dr. Lizandro Joby MONO # 0.9 103/ul Critically high 0.3-0.8 [facility] Comment on above: Performed By: #### C BC ####[facility] Nwmussyswz8[address] [place], [place] [address]Dr. Lizandro Hemphill Monocytes/100 WBC (Bld) 8.2 % Normal 1.7-12.0 [facility] Comment on above: Performed By: #### C BC ####[facility] Fssjunrlot3[address] [place], [place] [address]Dr. Shanikaannie Joby NEUT # 8.7 103/ul Critically high 1.4-6.5 [facility] Comment on above: Performed By: #### C BC ####[facility] Wfhzcrwnhm194[address] [place], [place] [address]Dr. Lizandro Hemphill Neutrophils/100 WBC (Bld) 76.5 % Critically high 43.0-75.0 [facility] Comment on above: Performed By: #### C BC ####[facility] Nbhddfkxap84[address] [place] [address]Dr. Lizandro Hemphill Platelet mean volume (Bld) [Entitic vol] 10.2 fL Normal 9.5-13.5 [facility] Comment on above: Performed By: #### C BC ####[facility] Jahyavrgpj9649 [place] [address]Dr. Shanikaannie Joby PLT 287 103/ul Normal 150-450 [facility] Comment on above: Performed By: #### C BC ####[facility] Mittsivubi[address] [place] [address]Dr. Lizandro Hemphill RBC 2.96 106/ul Critically low 4.20-5.40 [facility] Comment on above: Performed By: #### C BC ####[facility] Gciuweloqy2035[address] [place], [place] [address]Dr. Lizandro Hemphill WBC 11.4 103/ul Critically high 4.0-11.0 [facility] Comment on above: Performed By: #### C BC ####[facility] Ozkusfogpg495[address] [place], [place] [address]Dr. Lizandro Hemphill CT ABD/PELVIS WO CONon 03-04 CT ABD/PELVIS WO CON Normal [facility] PROF CHEM 8 (BAS METB)on Anion gap [Moles/Vol] 12.4 mmol/L Normal [facility] Comment on above: Performed By: #### B MP ####[facility] Urbwmtlxew[address] [place], [place] [address]Dr. Lizandro Hemphill Calcium [Mass/Vol] 8.0 mg/dL Critically low 8.5-10.1 [facility] Comment on above: Performed By: #### B MP ####[facility] Alycyurdul4328 [place] [address]Dr. Lizandro Hemphill Chloride [Moles/Vol] 106 mmol/L Normal 98-107 [facility] Comment on above: Performed By: #### B MP ####[facility] Ziwyqmspwz706[address] [place], [place] [address]Dr. Lizandro Hemphill CO2 [Moles/Vol] 24.3 mmol/L Normal 21.0-32.0 [facility] Comment on above: Performed By: #### B MP ####[facility] Jbfshdzcgv4316 [place] [address]Dr. Lizandro Hemphill Creatinine [Mass/Vol] 0.85 mg/dL Normal 0.55-1.02 [facility] Comment on above: Performed By: #### B MP ####[facility] Yuarxrypib2644 [place] [address]Dr. Lizandro Hemphill EGFR-AF CYMRAES >60 Normal >=60 [facility] Comment on above: Performed By: #### B MP ####[facility] Tshgazvxle8[address] [place] [address]Dr. Lizandro Hemphill EGFR-NON AF CYMRAES >60 Normal >=60 [facility] Comment on above: Performed By: #### B MP ####[facility] Bidvbpftqp014367 [address] [place], [place] [address]Dr. Lizandro Hemphill Glucose [Mass/Vol] 91 mg/dL Normal 74-106 [facility] Comment on above: Performed By: #### B MP ####[facility] Ldpdkxwvah4401[address] [place], [place] [address]Dr. Lizandro Hemphill Potassium [Moles/Vol] 3.7 mmol/L Normal 3.5-5.1 [facility] Comment on above: Performed By: #### B MP ####[facility] Izvnwxusiw3610 [place] [address]Dr. Lizandro Joby Sodium [Moles/Vol] 139 mmol/L Normal 136-145 [facility] Comment on above: Performed By: #### B MP ####[facility] Iemxorrpba9263 [place] [address]Dr. Lizandro Hemphill Urea nitrogen [Mass/Vol] 24.0 mg/dL Critically high 7.0-18.0 [facility] Comment on above: Performed By: #### B MP ####[facility] Fqwnejcjuo0222 [place] [address]Dr. Shanikaannie Joby Urea nitrogen/Creatinin e [Mass ratio] 28.2 mg/mg Normal [facility] Comment on above: Performed By: #### B MP ####[facility] Esxgokgejx8357 [place] [address]Dr. Lizandro Hemphill PROTIMEon 03-04-2022 INR Coag (PPP) [Relative time] 1.08 {INR} Normal [facility] Comment on above: Performed By: #### P T ####[facility] Vnbisbeuln68[address] [place] [address]Dr. Lizandro Hemphill INR GUIDELINES SEE BELOW Normal [facility] Comment on above: Result Comment: GUEVARA RED INR: 2.0 - 3.0 CONDITIONS NOT LISTED BELOW 2.5 - 3.5 FOR PROSTHETIC HEART VALVE REPLACEMENT 2.5 - 3.5 RECURRENT THROMBOSIS Performed By: #### P T ####[facility] Zxavlnfwgy[address] [place], [place] [address]Dr. Lizandro Hemphill PT Coag (PPP) [Time] 11.6 s Normal 9.0-11.6 [facility] Comment on above: Performed By: #### P T ####[facility] Bvxgqpsylr039[address] [place], [place] [address]Dr. Shanikaannie Hemphill BNPon 03-03-2022 Natriuretic peptide B (Bld) [Mass/Vol] 71.0 pg/mL Normal <=900.0 [facility] Comment on above: Performed By: #### H STROPN, LIPA, BNP, CMP ####[facility] Hlnhxnlvgc85[address] [place], [place] [address]Dr. Lizandro Hemphill CBC AUTO DIFFon 03-03-2022 BASO # 0.1 103/ul Normal 0.0-0.1 [facility] Comment on above: Performed By: #### C BC ####[facility] Gkplklllmw[address] [place], [place] [address]Dr. Lizandro Hemphill Basophils/100 WBC (Bld) 0.7 % Normal 0.2-2.0 [facility] Comment on above: Performed By: #### C BC ####[facility] Wqzhjyrkcu698[address] [place], [place] [address]Dr. Lizandro Hemphill EO # 0.0 103/ul Normal 0.0-0.7 [facility] Comment on above: Performed By: #### C BC ####[facility] Xnshopbwhw0212 [place] [address]Dr. Lizandro Hemphill Eosinophils/100 WBC (Bld) 0.2 % Critically low 0.9-7.0 [facility] Comment on above: Performed By: #### C BC ####[facility] Keyyjoghff6121 [place] [address]Dr. Lizandro Hemphill Erythrocyte distribution width (RBC) [Ratio] 16.3 % Critically high 11.0-15.0 [facility] Comment on above: Performed By: #### C BC ####[facility] Poqyrwsaqd69[address] [place], [place] [address]Dr. Lizandro Hemphill Hematocrit (Bld) [Volume fraction] 17.3 % Critically low 36.0-48.0 [facility] Comment on above: Performed By: #### C BC ####[facility] Ltxqriiawt7622[address] [place], [place] [address]Dr. Lizandro Hemphill Hemoglobin (Bld) [Mass/Vol] 6.2 g/dL Critically low 12.0-16.0 [facility] Comment on above: Performed By: #### C BC ####[facility] Erhljictzg4939[address] [place], [place] [address]Dr. Lizandro Hemphill IG # 0.09 10e3/ul Critically high 0.00-0.03 [facility] Comment on above: Performed By: #### C BC ####[facility] Lgasrnmsji151267 [address] [place], [place] [address]Dr. Lizandro Hemphill IG % 0.7 % Critically high 0.0-0.5 [facility] Comment on above: Performed By: #### C BC ####[facility] Idzvlghdmz70[address] [place], [place] [address]Dr. Lizandro Hemphill LYMPH # 2.2 103/ul Normal 1.2-3.8 [facility] Comment on above: Performed By: #### C BC ####[facility] Jqlqmgezru1640[address] [place], [place] [address]Dr. Lizandro Hemphill Lymphocytes/100 WBC (Bld) 16.1 % Critically low 20.5-60.0 [facility] Comment on above: Performed By: #### C BC ####[facility] Lwecipumzb1638 [place] [address]Dr. Lizandro Hemphill MANUAL DIFF REQ NO Normal [facility] Comment on above: Performed By: #### C BC ####[facility] Xoqlmsbxov2828 [place] [id number]. Lizandro Hemphill MCH (RBC) [Entitic mass] 30.0 pg Normal 26.7-34.0 [facility] Comment on above: Performed By: #### C BC ####[facility] Fzwupzbfoh9515 [place] [address]Dr. Lizandro Hemphill MCHC (RBC) [Mass/Vol] 35.8 g/dL Critically high 29.9-35.2 [facility] Comment on above: Performed By: #### C BC ####[facility] Knueamiejx1714[address] [place], [place] [address]Dr. Lizandro Hemphill MCV (RBC) [Entitic vol] 83.6 fL Normal 81.0-99.0 [facility] Comment on above: Performed By: #### C BC ####[facility] Phzuioxkvt1146[address] [place], [place] [address]Dr. Lizandro Hemphill MONO # 1.0 103/ul Critically high 0.3-0.8 [facility] Comment on above: Performed By: #### C BC ####[facility] Wxnvnqvmqs8[address] [place], [place] [address]Dr. Lizandro Hemphill Monocytes/100 WBC (Bld) 7.2 % Normal 1.7-12.0 [facility] Comment on above: Performed By: #### C BC ####[facility] Ihvnbjlwhb[address] [place], [place] [address]DrCiro Hemphill NEUT # 10.3 103/ul Critically high 1.4-6.5 [facility] Comment on above: Performed By: #### C BC ####[facility] Tarosqzmvn7134[address] [place], [place] [address]DrCiro Hemphill Neutrophils/100 WBC (Bld) 75.1 % Critically high 43.0-75.0 [facility] Comment on above: Performed By: #### C BC ####[facility] Valtsfxksd1509 [place] [id number]. Lizandro Hemphill Platelet mean volume (Bld) [Entitic vol] 10.0 fL Normal 9.5-13.5 [facility] Comment on above: Performed By: #### C BC ####[facility] Jberaldkwu7535 [place] [address]Dr. Lizandro Hemphill PLT 412 103/ul Normal 150-450 [facility] Comment on above: Performed By: #### C BC ####[facility] Jncoixfmcv4274 [place] [id number]. Lizandro Hemphill RBC 2.07 106/ul Critically low 4.20-5.40 [facility] Comment on above: Performed By: #### C BC ####[facility] Vsbaoeouom6949 [place] [address]Dr. Lizandro Hemphill WBC 13.7 103/ul Critically high 4.0-11.0 [facility] Comment on above: Performed By: #### C BC ####[facility] Gfvphkovkf7961 [place] [address]Dr. Lizandro Hemphill BASO # 0.1 103/ul Normal 0.0-0.1 [facility] Comment on above: Performed By: #### C BC ####[facility] Xmcsuhfvuw7812 [place] [address]Dr. Lizandro Hemphill Basophils/100 WBC (Bld) 0.6 % Normal 0.2-2.0 [facility] Comment on above: Performed By: #### C BC ####[facility] Jxxgsulyaj5693 [place] [id number]. Lizandro Hemphill EO # 0.0 103/ul Normal 0.0-0.7 [facility] Comment on above: Performed By: #### C BC ####[facility] Winzjocrii3597 [place] [id number]. Lizandro Hemphill Eosinophils/100 WBC (Bld) 0.2 % Critically low 0.9-7.0 [facility] Comment on above: Performed By: #### C BC ####[facility] Rzyxwnmibe0767 [place] [address]Dr. Lizandro Hemphill Erythrocyte distribution width (RBC) [Ratio] 16.4 % Critically high 11.0-15.0 [facility] Comment on above: Performed By: #### C BC ####[facility] Brzdrctknw6362 [place] [address]Dr. Lizandro Hemphill Hematocrit (Bld) [Volume fraction] 19.1 % Critically low 36.0-48.0 [facility] Comment on above: Performed By: #### C BC ####[facility] Rlczhsrtjk6[address] [place], [place] [address]Dr. Lizandro Hemphill Hemoglobin (Bld) [Mass/Vol] 6.3 g/dL Critically low 12.0-16.0 [facility] Comment on above: Performed By: #### C BC ####[facility] Qqvrvkczmc698[address] [place], [place] [address]Dr. Lizandro Hemphill IG # 0.09 10e3/ul Critically high 0.00-0.03 [facility] Comment on above: Performed By: #### C BC ####[facility] Byzhxoalwd24[address] [place], [place] [address]Dr. Lizandro Hemphill IG % 0.6 % Critically high 0.0-0.5 [facility] Comment on above: Performed By: #### C BC ####[facility] Vsyxnqjovp[address] [place], [place] [address]DrCiro Lizandro Hemphill LYMPH # 1.7 103/ul Normal 1.2-3.8 [facility] Comment on above: Performed By: #### C BC ####[facility] Dzlyfsacqc2[address] [place], [place] [address]DrCiro Lizandro Hemphill Lymphocytes/100 WBC (Bld) 11.9 % Critically low 20.5-60.0 [facility] Comment on above: Performed By: #### C BC ####[facility] Twxkxgvaet287[address] [place], [place] [address]DrCiro Lizandro Hemphill MANUAL DIFF REQ NO Normal [facility] Comment on above: Performed By: #### C BC ####[facility] Yuiycmhbpp4489 [place] [phone]. Lizandro Joby MCH (RBC) [Entitic mass] 28.4 pg Normal 26.7-34.0 [facility] Comment on above: Performed By: #### C BC ####[facility] Tppparesab3667 [place] [address]Dr. Shanikaannie Joby MCHC (RBC) [Mass/Vol] 33.0 g/dL Normal 29.9-35.2 [facility] Comment on above: Performed By: #### C BC ####[facility] Edzcmgbyrg0951 [place] [address]Dr. Lizandro Hemphill MCV (RBC) [Entitic vol] 86.0 fL Normal 81.0-99.0 [facility] Comment on above: Performed By: #### C BC ####[facility] Dmjptggrbl7860[address] [place], [place] [address]Dr. Lizandro Hemphill MONO # 0.9 103/ul Critically high 0.3-0.8 [facility] Comment on above: Performed By: #### C BC ####[facility] Sxhoncenay2664[address] [place], [place] [address]Dr. Lizandro Hemphill Monocytes/100 WBC (Bld) 6.1 % Normal 1.7-12.0 [facility] Comment on above: Performed By: #### C BC ####[facility] Lbpmplslfs19[address] [place], [place] [address]Dr. Lizandro Hemphill NEUT # 11.7 103/ul Critically high 1.4-6.5 [facility] Comment on above: Performed By: #### C BC ####[facility] Deikgpsfcr64[address] [place], [place] [address]DrCiro Hemphill Neutrophils/100 WBC (Bld) 80.6 % Critically high 43.0-75.0 [facility] Comment on above: Performed By: #### C BC ####[facility] Zoqrbwdnrm[address] [place], [place] [address]DrCiro Hemphill Platelet mean volume (Bld) [Entitic vol] 10.1 fL Normal 9.5-13.5 [facility] Comment on above: Performed By: #### C BC ####[facility] Kpysf[address]cd[address] [place], [place] [address]Uu. Lizandro Hemphill PLT 449 103/ul Normal 150-450 [facility] Comment on above: Performed By: #### C BC ####[facility] Wrzqdwpizd5335 [place], [place] [address]Oe. Lizandro Hemphill RBC 2.22 106/ul Critically low 4.20-5.40 [facility] Comment on above: Performed By: #### C BC ####[facility] Qpxmrhwkma1074 [place], [place] [address]Bs. Lizandro Hemphill WBC 14.6 103/ul Critically high 4.0-11.0 [facility] Comment on above: Performed By: #### C BC ####[facility] Miavhepbbv4935 [place], [place] [address]Mz. Lizandro Hemphill Covid-19 PCR (CVDTB)on SARS-CoV-2 (COVID-19) RNA VERITO+probe Ql (Unsp spec) Not detected Normal NOT DETECTED [facility] Comment on above: Result Comment: When [...] for this test is supported by the Speed of Health and Human Service's declaration that [...] be used). Performed By: #### C VDTBH ####[facility] Uzzlgtmkez3343 [place] [address]Dr. Lizandro Hemphill LACTATE/LACTIC ACIDon 2021 Lactate [Moles/Vol] 1.4 mmol/L Normal 0.4-1.9 [facility] Comment on above: Performed By: #### L ACT ####[facility] Ocnlaausrq3534 [place] [address]Dr. Lizandro Hemphill Lactate [Moles/Vol] 2.0 mmol/L Critically high 0.4-1.9 [facility] Comment on above: Performed By: #### L ACT ####[facility] Tlujfgryey0787 [place] [address]Dr. Lizandro Hemphill LIPASEon 03-03-2022 Lipase [Catalytic activity/Vol] 135.0 U/L Normal 73.0-393.0 [facility] Comment on above: Performed By: #### H STROPN, LIPA, BNP, CMP ####[facility] Klxqpouvsh6228 [place] [address]Dr. Lizandro Hemphill PROF 14(COMP METB)on 022 Albumin [Mass/Vol] 2.8 g/dL Critically low 3.4-5.0 [facility] Comment on above: Performed By: #### H STROPN, LIPA, BNP, CMP ####[facility] Dsaumqomgm4947 [place] [address]Dr. Lizandro Hemphill Albumin/Globulin [Mass ratio] 0.9 {ratio} Normal [facility] Comment on above: Performed By: #### H STROPN, LIPA, BNP, CMP ####[facility] Hzovrqdsel5328 [place] [address]Dr. Lizandro Hemphill ALP [Catalytic activity/Vol] 96 U/L Normal 46-116 [facility] Comment on above: Performed By: #### H STROPN, LIPA, BNP, CMP ####[facility] Dwvhxxdrok9892 [place] [address]Dr. Lizandro Hemphill ALT [Catalytic activity/Vol] 44 U/L Normal 14-59 [facility] Comment on above: Performed By: #### H STROPN, LIPA, BNP, CMP ####[facility] Ycvbshkfjv8453 [place] [address]Dr. Lizandro Hemphill Anion gap [Moles/Vol] 14.6 mmol/L Normal [facility] Comment on above: Performed By: #### H STROPN, LIPA, BNP, CMP ####[facility] Dufvegezps5179 [place] [address]Dr. Lizandro Hemphill AST [Catalytic activity/Vol] 46 U/L Critically high 15-37 [facility] Comment on above: Performed By: #### H STROPN, LIPA, BNP, CMP ####[facility] Yhktxnmggg0417 [place] [address]Dr. Lizandro Hemphill Bilirubin [Mass/Vol] 0.2 mg/dL Normal 0.2-1.0 [facility] Comment on above: Performed By: #### H STROPN, LIPA, BNP, CMP ####[facility] Xnfvnwjnmg[address] [place], [place] [address]Dr. Lizandro Hemphill Calcium [Mass/Vol] 8.8 mg/dL Normal 8.5-10.1 [facility] Comment on above: Performed By: #### H STROPN, LIPA, BNP, CMP ####[facility] Ktglwogsrb[address] [place], [place] [address]Dr. Lizandro Hemphill Chloride [Moles/Vol] 105 mmol/L Normal 98-107 [facility] Comment on above: Performed By: #### H STROPN, LIPA, BNP, CMP ####[facility] [address]bftvmdeti08[address] [place], [place] [address]Dr. Lizandro Hemphill CO2 [Moles/Vol] 22.9 mmol/L Normal 21.0-32.0 [facility] Comment on above: Performed By: #### H STROPN, LIPA, BNP, CMP ####[facility] Heovnktbps20[address] [place], [place] [address]Dr. Lizandro Hemphill Creatinine [Mass/Vol] 1.07 mg/dL Critically high 0.55-1.02 [facility] Comment on above: Performed By: #### H STROPN, LIPA, BNP, CMP ####[facility] Asiyscmfds5448 [place] [address]Dr. Lizandro Hemphill EGFR-AF CYMRAES 63 mL/min/1.73m2 Normal >=60 [facility] Comment on above: Performed By: #### H STROPN, LIPA, BNP, CMP ####[facility] Rhnawoalzi1433 [place] [address]Dr. Lizandro Hemphill EGFR-NON AF CYMRAES 52 mL/min/1.73m2 Critically low >=60 [facility] Comment on above: Performed By: #### H STROPN, LIPA, BNP, CMP ####[facility] Oduqmcoxkb7624 [place] [address]Dr. Lizandro Hemphill Globulin (S) [Mass/Vol] 3.1 g/dL Normal [facility] Comment on above: Performed By: #### H STROPN, LIPA, BNP, CMP ####[facility] Mxarkbqmli0490 [place] [address]Dr. Lizandro Hemphill Glucose [Mass/Vol] 123 mg/dL Critically high 74-106 [facility] Comment on above: Performed By: #### H STROPN, LIPA, BNP, CMP ####[facility] Afvbzlykaj7178 [place] [address]Dr. Lizandro Hemphill Potassium [Moles/Vol] 3.5 mmol/L Normal 3.5-5.1 [facility] Comment on above: Performed By: #### H STROPN, LIPA, BNP, CMP ####[facility] [address] [place] [address]Dr. Lizandro Hemphill Protein [Mass/Vol] 5.9 g/dL Critically low 6.4-8.2 [facility] Comment on above: Performed By: #### H STROPN, LIPA, BNP, CMP ####[facility] Cijvprhfuz[address] [place] [address]Dr. Lizandro Hemphill Sodium [Moles/Vol] 139 mmol/L Normal 136-145 [facility] Comment on above: Result Comment: kennedy sly lipemic sample Performed By: #### H STROPN, LIPA, BNP, CMP ####[facility] Dcdqckjchy[address] [place] [address]Dr. Lizandro Hemphill Urea nitrogen [Mass/Vol] 37.0 mg/dL Critically high 7.0-18.0 [facility] Comment on above: Performed By: #### H STROPN, LIPA, BNP, CMP ####[facility] Gmfedflwwl4[address] [place] [address]Dr. Lizandro Hemphill Urea nitrogen/Creatinin e [Mass ratio] 34.6 mg/mg Normal [facility] Comment on above: Performed By: #### H STROPN, LIPA, BNP, CMP ####[facility] Orxcvhucsv[address] [place], [place] [address]Dr. Lizandro Hemphill PROTIMEon 03-03-2022 INR Coag (PPP) [Relative time] 1.18 {INR} Normal [facility] Comment on above: Performed By: #### P T ####[facility] Dbkdkxprfr169[address] [place], [place] [address]Dr. Lizandro Hemphill INR GUIDELINES SEE BELOW Normal [facility] Comment on above: Result Comment: GUEVARA RED INR: 2.0 - 3.0 CONDITIONS NOT LISTED BELOW 2.5 - 3.5 FOR PROSTHETIC HEART VALVE REPLACEMENT 2.5 - 3.5 RECURRENT THROMBOSIS Performed By: #### P T ####[facility] E[address]vqsmdnb23[address] [place], [place] [address]Dr. Lizandro Hemphill PT Coag (PPP) [Time] 12.6 s Critically high 9.0-11.6 [facility] Comment on above: Performed By: #### P T ####[facility] Tubxjxusdx[address] [place], [place] [address]Dr. Lizandro Hemphill INR Coag (PPP) [Relative time] 1.22 {INR} Normal [facility] Comment on above: Performed By: #### P T, PTT ####[facility] Sgvpifwxky34[address] [place], [place] [address]Dr. Lizandro Hemphill INR GUIDELINES SEE BELOW Normal [facility] Comment on above: Result Comment: GUEVARA RED INR: 2.0 - 3.0 CONDITIONS NOT LISTED BELOW 2.5 - 3.5 FOR PROSTHETIC HEART VALVE REPLACEMENT 2.5 - 3.5 RECURRENT THROMBOSIS Performed By: #### P T, PTT ####[facility] Ttcpxtuywc[address] [place] [phone]. Lizandro Hemphill PT Coag (PPP) [Time] 13.0 s Critically high 9.0-11.6 [facility] Comment on above: Performed By: #### P T, PTT ####[facility] Sggfivxghc[address] [place] [phone]. Lizandro Hemphill PTTon 03-03-2022 aPTT Coag (Bld) [Time] 23.1 s Normal 22.3-36.2 [facility] Comment on above: Performed By: #### P T, PTT ####[facility] Zsnmdsidea6[address] [place] [address]Dr. Lizandro Hemphill TROPONIN, HIGH SENSITIVITYon 03-03-2022 HSTROP 7.5 pg/mL Normal 4.0-51.3 [facility] Comment on above: Result Comment: CUT- OFF POINTS HAVE BEEN ESTABLISHED BASED ON THE FOURTH UNIVERSAL DEFINITIONS OF MYOCARDIALINFARCTION. THE UPPER REFERENCE LIMIT (URL) OF TROPONIN, DEFINED THE 99TH PERCENTILE OFcTnI DISTRIBUTION IN A REFERENCE POPULATION, HAS BEEN CONFIRMED THE DECISION THRESHOLDFOR ND DIAGNOSIS. Performed By: #### H STROPN, LIPA, BNP, CMP ####[facility] Tzl[address]qzowt[address] [place] [address]Dr. Lizandro Hemphill TYPE AND SCREENon 03-03-2022 TYPE AND SCREEN Negative Normal [facility] Comment on above: Performed By: #### T NS ####[facility] Crvqzmymba[address] [place] [address]Dr. Lizandro Hemphill CT HIP LT WO CONon 2 CT HIP LT WO CON Normal [facility] XR HIP LT 2 3V W PELVISon XR HIP LT 2 3V W PELVIS Normal [facility] CT CSPINE WO CONon 2 CT CSPINE WO CON Normal [facility] PRBC LEUKOREDUCEDon 02-03-20 22 PRBC LEUKOREDUCED Normal [facility] Comment on above: Performed By: #### P RBC ####[facility] Yltcuvirna[address] [place] [phone]. Lizandro Hemphill US VENOUS DOPPLER L Monty US VENOUS DOPPLER L ARM Normal [facility] CBC AUTO DIFFon 01-27-2022 BASO # 0.1 103/ul Normal 0.0-0.1 [facility] Comment on above: Performed By: #### C BC ####[facility] Hpwzgtlmke4[address] [place] [address]Dr. Lizandro Hemphill Basophils/100 WBC (Bld) 0.5 % Normal 0.2-2.0 [facility] Comment on above: Performed By: #### C BC ####[facility] Fdfakpbejv309[address] [place], [place] [address]Dr. Lizandro Hemphill EO # 0.1 103/ul Normal 0.0-0.7 [facility] Comment on above: Performed By: #### C BC ####[facility] Mreegqzoyf35[address] [place], [place] [address]Dr. Lizandro Hemphill Eosinophils/100 WBC (Bld) 1.1 % Normal 0.9-7.0 [facility] Comment on above: Performed By: #### C BC ####[facility] Qkcpthucnc35[address] [place], [place] [address]Dr. Lizandro Hemphill Erythrocyte distribution width (RBC) [Ratio] 16.9 % Critically high 11.0-15.0 [facility] Comment on above: Performed By: #### C BC ####[facility] Pzsjxjwrgx32[address] [place], [place] [address]Dr. Lizandro Hemphill Hematocrit (Bld) [Volume fraction] 27.9 % Critically low 36.0-48.0 [facility] Comment on above: Performed By: #### C BC ####[facility] Fpyqzolcno0[address] [place], [place] [address]Dr. Lizandro Hemphill Hemoglobin (Bld) [Mass/Vol] 9.1 g/dL Critically low 12.0-16.0 [facility] Comment on above: Performed By: #### C BC ####[facility] Dzhgldcqni750[address] [place], [place] [address]DrCiro Hemphill IG # 0.05 10e3/ul Critically high 0.00-0.03 [facility] Comment on above: Performed By: #### C BC ####[facility] Bvtmcobsnl14[address] [place] [address]DrCiro Hemphill IG % 0.5 % Normal 0.0-0.5 [facility] Comment on above: Performed By: #### C BC ####[facility] Jrwfurlhso2769 [place] [address]DrCiro Hemphill LYMPH # 1.9 103/ul Normal 1.2-3.8 [facility] Comment on above: Performed By: #### C BC ####[facility] Uiqjzryvht2785 [place] [address]DrCiro Hemphill Lymphocytes/100 WBC (Bld) 20.2 % Critically low 20.5-60.0 [facility] Comment on above: Performed By: #### C BC ####[facility] Kzenebiuui99[address] [place], [place] [address]DrCiro Hemphill MANUAL DIFF REQ NO Normal [facility] Comment on above: Performed By: #### C BC ####[facility] Kwjefbmnpx75[address] [place], [place] [address]DrCiro Hemphill MCH (RBC) [Entitic mass] 29.7 pg Normal 26.7-34.0 [facility] Comment on above: Performed By: #### C BC ####[facility] Godjxytgaz8[address] [place], [place] [address]DrCiro Hemphill MCHC (RBC) [Mass/Vol] 32.6 g/dL Normal 29.9-35.2 [facility] Comment on above: Performed By: #### C BC ####[facility] Jfhajnottc2276[address] [place], [place] [address]DrCiro Hemphill MCV (RBC) [Entitic vol] 91.2 fL Normal 81.0-99.0 [facility] Comment on above: Performed By: #### C BC ####[facility] Ogpnauoewb8[address] [place], [place] [address]DrCiro Hemphill MONO # 1.0 103/ul Critically high 0.3-0.8 [facility] Comment on above: Performed By: #### C BC ####[facility] Uhjogdgine9560 [place] [phone]. Lizandro Hemphill Monocytes/100 WBC (Bld) 10.9 % Normal 1.7-12.0 [facility] Comment on above: Performed By: #### C BC ####[facility] Kictsjvdwc7336 [place] [address]Dr. Lizandro Hemphill NEUT # 6.2 103/ul Normal 1.4-6.5 [facility] Comment on above: Performed By: #### C BC ####[facility] Ajhcwdphvr5371 [place] [address]DrCiro Lizandro Hemphill Neutrophils/100 WBC (Bld) 66.8 % Normal 43.0-75.0 [facility] Comment on above: Performed By: #### C BC ####[facility] Efnxjztlbr[address] [place], [place] [address]Dr. Lizandro Hemphill Platelet mean volume (Bld) [Entitic vol] 11.0 fL Normal 9.5-13.5 [facility] Comment on above: Performed By: #### C BC ####[facility] Xohlolieyw54[address] [place], [place] [address]Dr. Lizandro Hemphill PLT 189 103/ul Normal 150-450 [facility] Comment on above: Performed By: #### C BC ####[facility] Nnjavgtcrx0899 [place] [phone]. Lizandro Hemphill RBC 3.06 106/ul Critically low 4.20-5.40 [facility] Comment on above: Performed By: #### C BC ####[facility] Fmiqqwonmd4549 [place] [phone] Lizandro Hemphill WBC 9.3 103/ul Normal 4.0-11.0 [facility] Comment on above: Performed By: #### C BC ####[facility] Mdcadkotze9[address] [place], [place] [address]DrCiro Hemphill PROF 14(COMP METB)on 022 Albumin [Mass/Vol] 2.7 g/dL Critically low 3.4-5.0 [facility] Comment on above: Performed By: #### C MP ####[facility] Uypqwtluyf40[address] [place] [address]Dr. Lizandro Hemphill Albumin/Globulin [Mass ratio] 0.9 {ratio} Normal [facility] Comment on above: Performed By: #### C MP ####[facility] Zztnullfjq648167 [address] [place], [place] [address]Dr. Lizandro Hemphill ALP [Catalytic activity/Vol] 63 U/L Normal 46-116 [facility] Comment on above: Performed By: #### C MP ####[facility] Axefekhghl81[address] [place], [place] [address]Dr. Lizandro Hemphill ALT [Catalytic activity/Vol] 27 U/L Normal 14-59 [facility] Comment on above: Performed By: #### C MP ####[facility] Lscedwuqoc666[address] [place], [place] [address]Dr. Lizandro Hemphill Anion gap [Moles/Vol] 8.5 mmol/L Normal [facility] Comment on above: Performed By: #### C MP ####[facility] Gletneoibj236167 [address] [place], [place] [address]Dr. Lizandro Hemphill AST [Catalytic activity/Vol] 33 U/L Normal 15-37 [facility] Comment on above: Performed By: #### C MP ####[facility] Ixffluilyv4635[address] [place], [place] [address]Dr. Lizandro Hemphill Bilirubin [Mass/Vol] 0.2 mg/dL Normal 0.2-1.0 [facility] Comment on above: Performed By: #### C MP ####[facility] Hmjadddsnz2827[address] [place], [place] [address]Dr. Lizandro Hemphill Calcium [Mass/Vol] 7.9 mg/dL Critically low 8.5-10.1 [facility] Comment on above: Performed By: #### C MP ####[facility] Zpungafczl0124[address] [place], [place] [address]Dr. Lizandro Hemphill Chloride [Moles/Vol] 102 mmol/L Normal 98-107 [facility] Comment on above: Performed By: #### C MP ####[facility] Zelfzqfskt7[address] [place] [address]Dr. Lizandro Hemphill CO2 [Moles/Vol] 26.5 mmol/L Normal 21.0-32.0 [facility] Comment on above: Performed By: #### C MP ####[facility] Qkovccmgqj9507 [place] [address]Dr. Lizandro Joby Creatinine [Mass/Vol] 0.99 mg/dL Normal 0.55-1.02 [facility] Comment on above: Performed By: #### C MP ####[facility] Prrmdbxhwy3936 [place] [address]Dr. Lizandro Joby EGFR-AF CYMRAES >60 Normal >=60 [facility] Comment on above: Performed By: #### C MP ####[facility] Sfbplifukh0954 [place] [address]Dr. Lizandro Joby EGFR-NON AF CYMRAES 57 mL/min/1.73m2 Critically low >=60 [facility] Comment on above: Performed By: #### C MP ####[facility] Xhwrzwdrsd9123 [place] [address]Dr. Lizandro Joby Globulin (S) [Mass/Vol] 2.9 g/dL Normal [facility] Comment on above: Performed By: #### C MP ####[facility] Qssgfiefqg5444 [place] [phone]. Lizandro Joby Glucose [Mass/Vol] 86 mg/dL Normal 74-106 [facility] Comment on above: Performed By: #### C MP ####[facility] Rrpqhnlfuw3175 [place] [phone]. Lizandro Joby Potassium [Moles/Vol] 4.0 mmol/L Normal 3.5-5.1 [facility] Comment on above: Performed By: #### C MP ####[facility] Kuecxzvxgh9834 [place] [phone]. Shanikaannie Hemphill Protein [Mass/Vol] 5.6 g/dL Critically low 6.4-8.2 [facility] Comment on above: Performed By: #### C MP ####[facility] Oophatdnrw9[address] [place], [place] [address]Dr. Lizandro Hemphill Sodium [Moles/Vol] 133 mmol/L Critically low 136-145 [facility] Comment on above: Performed By: #### C MP ####[facility] Lhsnldurww1920[address] [place], [place] [address]Dr. Lizandro Hemphill Urea nitrogen [Mass/Vol] 23.0 mg/dL Critically high 7.0-18.0 [facility] Comment on above: Performed By: #### C MP ####[facility] Ahiyxzrdrk291267 [address] [place], [place] [address]Dr. Lizandro Hemphill Urea nitrogen/Creatinin e [Mass ratio] 23.2 mg/mg Normal [facility] Comment on above: Performed By: #### C MP ####[facility] Bklfzkrsdg2554[address] [place], [place] [address]Dr. Lizandro Hemphill PROTIMEon 01-27-2022 INR Coag (PPP) [Relative time] 1.23 {INR} Normal [facility] Comment on above: Performed By: #### P T, PTT ####[facility] Rjpwbluepg418967 [address] [place], [place] [address]Dr. Lizandro Hemphill INR GUIDELINES SEE BELOW Normal [facility] Comment on above: Result Comment: GUEVARA RED INR: 2.0 - 3.0 CONDITIONS NOT LISTED BELOW 2.5 - 3.5 FOR PROSTHETIC HEART VALVE REPLACEMENT 2.5 - 3.5 RECURRENT THROMBOSIS Performed By: #### P T, PTT ####[facility] Njlvdlgtyj7[address] [place], [place] [address]Dr. Lizandro Hemphill PT Coag (PPP) [Time] 13.1 s Critically high 9.0-11.6 [facility] Comment on above: Performed By: #### P T, PTT ####[facility] Blawdwvscr27[address] [place], [place] [address]Dr. Lizandro Hemphill PTTon 01-27-2022 aPTT Coag (Bld) [Time] 22.9 s Normal 22.3-36.2 [facility] Comment on above: Performed By: #### P T, PTT ####[facility] Bnootogmng4628[address] [place], [place] [address]Dr. Lizandro Hemphill CBC AUTO DIFFon 01-26-2022 BASO # 0.1 103/ul Normal 0.0-0.1 [facility] Comment on above: Performed By: #### C BC ####[facility] Eevevbxqya0316[address] [place], [place] [address]Dr. Lizandro Joby Basophils/100 WBC (Bld) 0.4 % Normal 0.2-2.0 [facility] Comment on above: Performed By: #### C BC ####[facility] Qewlhhauqk6[address] [place], [place] [address]Dr. Lizandro Hemphill EO # 0.0 103/ul Normal 0.0-0.7 [facility] Comment on above: Performed By: #### C BC ####[facility] Xbdbhvuwgl466[address] [place], [place] [address]Dr. Lizandro Joby Eosinophils/100 WBC (Bld) 0.2 % Critically low 0.9-7.0 [facility] Comment on above: Performed By: #### C BC ####[facility] Xyidszchmp65[address] [place], [place] [address]Dr. Lizandro Hemphill Erythrocyte distribution width (RBC) [Ratio] 16.7 % Critically high 11.0-15.0 [facility] Comment on above: Performed By: #### C BC ####[facility] Jmcqjkyuvb604[address] [place], [place] [address]Dr. Lizandro Joby Hematocrit (Bld) [Volume fraction] 28.9 % Critically low 36.0-48.0 [facility] Comment on above: Performed By: #### C BC ####[facility] Cfyyplstai2268[address] [place], [place] [address]Dr. Lizandro Joby Hemoglobin (Bld) [Mass/Vol] 9.5 g/dL Critically low 12.0-16.0 [facility] Comment on above: Performed By: #### C BC ####[facility] Bsmarjzhzo15[address] [place], [place] [address]Dr. Lizandro Hemphill IG # 0.06 10e3/ul Critically high 0.00-0.03 [facility] Comment on above: Performed By: #### C BC ####[facility] Ejqmlcyjlw43[address] [place] [address]Dr. Lizandro Hemphill IG % 0.5 % Normal 0.0-0.5 [facility] Comment on above: Performed By: #### C BC ####[facility] Ynjkltzeik3324 [place] [address]DrCiro Hemphill LYMPH # 1.7 103/ul Normal 1.2-3.8 [facility] Comment on above: Performed By: #### C BC ####[facility] Imzijyhcfr3404 [place] [address]DrCiro Hemphill Lymphocytes/100 WBC (Bld) 13.4 % Critically low 20.5-60.0 [facility] Comment on above: Performed By: #### C BC ####[facility] Egxqprvmbz9331 [place] [address]DrCiro Hemphill MANUAL DIFF REQ NO Normal [facility] Comment on above: Performed By: #### C BC ####[facility] Eylikklyrg7252 [place] [address]DrCiro Hemphill MCH (RBC) [Entitic mass] 29.5 pg Normal 26.7-34.0 [facility] Comment on above: Performed By: #### C BC ####[facility] Awyrsvyqht2721 [place] [address]DrCiro Hemphill MCHC (RBC) [Mass/Vol] 32.9 g/dL Normal 29.9-35.2 [facility] Comment on above: Performed By: #### C BC ####[facility] Ogvvhybhfg3641 [place] [address]DrCiro Hemphill MCV (RBC) [Entitic vol] 89.8 fL Normal 81.0-99.0 [facility] Comment on above: Performed By: #### C BC ####[facility] Hnlwugmwya6054 [place] [address]DrCiro Hemphill MONO # 1.3 103/ul Critically high 0.3-0.8 [facility] Comment on above: Performed By: #### C BC ####[facility] Wcrzndiycf2884 [place] [address]Dr. Lizandro Hemphill Monocytes/100 WBC (Bld) 10.5 % Normal 1.7-12.0 [facility] Comment on above: Performed By: #### C BC ####[facility] Eeemxetikq1241 [place] [address]Dr. Lizandro Hemphill NEUT # 9.4 103/ul Critically high 1.4-6.5 [facility] Comment on above: Performed By: #### C BC ####[facility] Fdtvgntxfu9[address] [place], [place] [address]Dr. Lizandro Hemphill Neutrophils/100 WBC (Bld) 75.0 % Normal 43.0-75.0 [facility] Comment on above: Performed By: #### C BC ####[facility] Bxqcwgeyvv256[address] [place], [place] [address]Dr. Lizandro Hemphill Platelet mean volume (Bld) [Entitic vol] 10.4 fL Normal 9.5-13.5 [facility] Comment on above: Performed By: #### C BC ####[facility] Zhfimszqxr1491 [place] [address]Dr. Lizandro Hemphill PLT 211 103/ul Normal 150-450 [facility] Comment on above: Performed By: #### C BC ####[facility] Vywuqxqwvi0996[address] [place], [place] [address]Dr. Lizandro Hemphill RBC 3.22 106/ul Critically low 4.20-5.40 [facility] Comment on above: Performed By: #### C BC ####[facility] Khtktpcqda755367 [address] [place], [place] [address]Dr. Lizandro Hemphill WBC 12.5 103/ul Critically high 4.0-11.0 [facility] Comment on above: Performed By: #### C BC ####[facility] Nivhqhwvsb[address] [place], [place] [address]Dr. Lizandro Hemphill BASO # 0.0 103/ul Normal 0.0-0.1 [facility] Comment on above: Performed By: #### C BC ####[facility] Ygamflolgi1286 [place] [address]Dr. Lizandro Hemphill Basophils/100 WBC (Bld) 0.2 % Normal 0.2-2.0 [facility] Comment on above: Performed By: #### C BC ####[facility] Nkuaovwbqa197167 [address] [place], [place] [address]Dr. Lizandro Hemphill EO # 0.0 103/ul Normal 0.0-0.7 [facility] Comment on above: Performed By: #### C BC ####[facility] Ibpkrphccy8275[address] [place], [place] [address]Dr. Shanikaannie Hemphill Eosinophils/100 WBC (Bld) 0.0 % Critically low 0.9-7.0 [facility] Comment on above: Performed By: #### C BC ####[facility] Kcpbeomvrk028[address] [place], [place] [address]Dr. Lizandro Hemphill Erythrocyte distribution width (RBC) [Ratio] 16.2 % Critically high 11.0-15.0 [facility] Comment on above: Performed By: #### C BC ####[facility] Sqcqmuvobi2374[address] [place], [place] [address]Dr. Lizandro Hemphill Hematocrit (Bld) [Volume fraction] 26.3 % Critically low 36.0-48.0 [facility] Comment on above: Performed By: #### C BC ####[facility] Wapxkbtbdw[address] [place], [place] [address]Dr. Lizandro Hemphill Hemoglobin (Bld) [Mass/Vol] 8.9 g/dL Critically low 12.0-16.0 [facility] Comment on above: Performed By: #### C BC ####[facility] Vocvhqsydr48[address] [place], [place] [address]Dr. Lizandro Hemphill IG # 0.08 10e3/ul Critically high 0.00-0.03 [facility] Comment on above: Performed By: #### C BC ####[facility] Nmufqxnydr[address] [place], [place] [address]Dr. Lizandro Hemphill IG % 0.8 % Critically high 0.0-0.5 [facility] Comment on above: Performed By: #### C BC ####[facility] Fljlcuhkhq1563 [place] [address]Dr. Lizandro Hemphill LYMPH # 0.9 103/ul Critically low 1.2-3.8 [facility] Comment on above: Performed By: #### C BC ####[facility] Izjafapjgf5426 [place] [address]Dr. Lizandro Hemphill Lymphocytes/100 WBC (Bld) 8.8 % Critically low 20.5-60.0 [facility] Comment on above: Performed By: #### C BC ####[facility] Apruqojkcu7645 [place] [address]Dr. Lizandro Hemphill MANUAL DIFF REQ NO Normal [facility] Comment on above: Performed By: #### C BC ####[facility] Uxrkvmfodd8476 [place] [address]Dr. Lizandro Joby MCH (RBC) [Entitic mass] 30.1 pg Normal 26.7-34.0 [facility] Comment on above: Performed By: #### C BC ####[facility] [address]nkpjwbssa0[address] [place], [place] [address]Dr. Lizandro Joby MCHC (RBC) [Mass/Vol] 33.8 g/dL Normal 29.9-35.2 [facility] Comment on above: Performed By: #### C BC ####[facility] Wybpdcxyqh4224 [place] [address]Dr. Lizandro Hemphill MCV (RBC) [Entitic vol] 88.9 fL Normal 81.0-99.0 [facility] Comment on above: Performed By: #### C BC ####[facility] W[address]xqgtwlin7[address] [place], [place] [address]Dr. Lizandro Hemphill MONO # 1.0 103/ul Critically high 0.3-0.8 [facility] Comment on above: Performed By: #### C BC ####[facility] Waabfqpcpr47[address] [place], [place] [address]Dr. Lizandro Hemphill Monocytes/100 WBC (Bld) 10.1 % Normal 1.7-12.0 [facility] Comment on above: Performed By: #### C BC ####[facility] Iqqwlyynyn9990 [place] [address]Dr. Lizandro Hemphill NEUT # 8.1 103/ul Critically high 1.4-6.5 [facility] Comment on above: Performed By: #### C BC ####[facility] Oxeygtueqv9332 [place] [address]Dr. Lizandro Hemphill Neutrophils/100 WBC (Bld) 80.1 % Critically high 43.0-75.0 [facility] [facility] Comment on above: Performed By: #### C BC ####[facility] Mdfnyjeshe[address] [place] [address]Dr. Lizandro Hemphill Platelet mean volume (Bld) [Entitic vol] 10.5 fL Normal 9.5-13.5 [facility] Comment on above: Performed By: #### C BC ####[facility] Vmlevnmlrg8[address] [place] [address]Dr. Lizandro Hemphill PLT 189 103/ul Normal 150-450 [facility] Comment on above: Performed By: #### C BC ####[facility] Igdxerzasc9[address] [place] [address]Dr. Lizandro Hemphill RBC 2.96 106/ul Critically low 4.20-5.40 [facility] Comment on above: Performed By: #### C BC ####[facility] Zevklrogmy9[address] [place] [address]Dr. Lizandro Hemphill WBC 10.1 103/ul Normal 4.0-11.0 [facility] Comment on above: Performed By: #### C BC ####[facility] Fitjvipqow34[address] [place] [address]Dr. Lizandro Joby PROF 14(COMP METB)on 022 Albumin [Mass/Vol] 2.6 g/dL Critically low 3.4-5.0 [facility] Comment on above: Performed By: #### C MP ####[facility] Afjspicomz8333 [place] [address]Dr. Lizandro Joby Albumin/Globulin [Mass ratio] 0.9 {ratio} Normal [facility] Comment on above: Performed By: #### C MP ####[facility] Dxhzawcdak89[address] [place] [address]Dr. Lizandro Joby ALP [Catalytic activity/Vol] 62 U/L Normal 46-116 [facility] Comment on above: Performed By: #### C MP ####[facility] Cexnznrcyx4820[address] [place], [place] [address]Dr. Lizandro Joby ALT [Catalytic activity/Vol] 22 U/L Normal 14-59 [facility] Comment on above: Performed By: #### C MP ####[facility] Xxzxcqnmtm364[address] [place], [place] [address]Dr. Lizandro Hemphill Anion gap [Moles/Vol] 10.7 mmol/L Normal [facility] Comment on above: Performed By: #### C MP ####[facility] Xlthmlppua856167 [address] [place], [place] [address]Dr. Shanikaannie Hemphill AST [Catalytic activity/Vol] 26 U/L Normal 15-37 [facility] Comment on above: Performed By: #### C MP ####[facility] Scfigkjekb912167 [address] [place], [place] [address]Dr. Lizandro Hemphill Bilirubin [Mass/Vol] 0.2 mg/dL Normal 0.2-1.0 [facility] Comment on above: Performed By: #### C MP ####[facility] Hyfimhpkmx277967 [address] [place], [place] [address]Dr. Lizandro Hemphill Calcium [Mass/Vol] 7.6 mg/dL Critically low 8.5-10.1 Th [facility] Comment on above: Performed By: #### C MP ####[facility] Doiqnzyfea9210[address] [place], [place] [address]Dr. Lizandro Hemphill Chloride [Moles/Vol] 109 mmol/L Critically high 98-107 [facility] Comment on above: Performed By: #### C MP ####[facility] Yhzggnmagy8423[address] [place], [place] [address]Dr. Lizandro Hemphill CO2 [Moles/Vol] 25.0 mmol/L Normal 21.0-32.0 [facility] Comment on above: Performed By: #### C MP ####[facility] Umvvdgaeus3846 [place] [address]Dr. Lizandro Hemphill Creatinine [Mass/Vol] 0.75 mg/dL Normal 0.55-1.02 [facility] Comment on above: Performed By: #### C MP ####[facility] Hsmacftgqo5006 [place] [address]Dr. Lizandro Joby EGFR-AF CYMRAES >60 Normal >=60 [facility] Comment on above: Performed By: #### C MP ####[facility] Hgvftdpcea9986 [place] [address]Dr. Lizandro Hemphill EGFR-NON AF CYMRAES >60 Normal >=60 [facility] Comment on above: Performed By: #### C MP ####[facility] Aqoqswoxqy7413[address] [place], [place] [address]Dr. Lizandro Hemphill Globulin (S) [Mass/Vol] 2.8 g/dL Normal [facility] Comment on above: Performed By: #### C MP ####[facility] Klfwhvchfl855267 [address] [place], [place] [address]Dr. Lizandro Hemphill Glucose [Mass/Vol] 121 mg/dL Critically high 74-106 T [facility] Comment on above: Performed By: #### C MP ####[facility] Rflfviasbw610967 [address] [place], [place] [address]Dr. Lizandro Hemphill Potassium [Moles/Vol] 3.7 mmol/L Normal 3.5-5.1 [facility] Comment on above: Performed By: #### C MP ####[facility] Dgsmoxbgty696967 [address] [place], [place] [address]Dr. Lizandro Hemphill Protein [Mass/Vol] 5.4 g/dL Critically low 6.4-8.2 Th e [facility] Comment on above: Performed By: #### C MP ####[facility] Ddkenbftmg016767 [address] [place], [place] [address]Dr. Lizandro Hemphill Sodium [Moles/Vol] 141 mmol/L Normal 136-145 [facility] Comment on above: Performed By: #### C MP ####[facility] Kkakuvfxqh934167 [address] [place], [place] [address]Dr. Lizandro Hemphill Urea nitrogen [Mass/Vol] 18.0 mg/dL Normal 7.0-18.0 [facility] Comment on above: Performed By: #### C MP ####[facility] Hnxqdukbfu179367 [address] [place], [place] [address]Dr. Lizandro Hemphill Urea nitrogen/Creatinin e [Mass ratio] 24.0 mg/mg Normal [facility] Comment on above: Performed By: #### C MP ####[facility] Elqvlxwlol066667 [address] [place], [place] [address]Dr. Lizandro Hemphill PROTIMEon 01-26-2022 INR Coag (PPP) [Relative time] 1.91 {INR} Normal [facility] Comment on above: Performed By: #### P TT, PT ####[facility] Ftcoolxgbn611767 [address] [place], [place] [address]Dr. Lizandro Hemphill INR GUIDELINES SEE BELOW Normal [facility] Comment on above: Result Comment: GUEVARA RED INR: 2.0 - 3.0 CONDITIONS NOT LISTED BELOW 2.5 - 3.5 FOR PROSTHETIC HEART VALVE REPLACEMENT 2.5 - 3.5 RECURRENT THROMBOSIS Performed By: #### P TT, PT ####[facility] Rjiftymtmp4487[address] [place], [place] [address]Dr. Lizandro Hemphill PT Coag (PPP) [Time] 19.8 s Critically high 9.0-11.6 [facility] Comment on above: Performed By: #### P TT, PT ####[facility] Feoznhdhwl4799[address] [place], [place] [address]Dr. Lizandro Hemphill PTTon 01-26-2022 aPTT Coag (Bld) [Time] 27.9 s Normal 22.3-36.2 [facility] Comment on above: Performed By: #### P TT, PT ####[facility] Guvlqefzbl446067 [address] [place], [place] [address]Dr. Lizandro Hemphill AMYLASEon 01-25-2022 Amylase [Catalytic activity/Vol] 82 U/L Normal 25-115 [facility] Comment on above: Performed By: #### A MY, LIPA, BNP, HSTROPN, CMP ####[facility] Wqqhuxsnjl399767 [address] [place], [place] [address]Dr. Lizandro Hemphill BNPon 01-25-2022 Natriuretic peptide B (Bld) [Mass/Vol] 152.0 pg/mL Normal <=900.0 [facility] Comment on above: Performed By: #### A MY, LIPA, BNP, HSTROPN, CMP ####[facility] Ybrzglpsqi2026[address] [place], [place] [address]Dr. Lizandro Hemphill CBC AUTO DIFFon 01-25-2022 BASO # 0.0 103/ul Normal 0.0-0.1 [facility] Comment on above: Performed By: #### C BC ####[facility] Azzjmundvb491067 [address] [place], [place] [address]Dr. Lizandro Hemphill Basophils/100 WBC (Bld) 0.3 % Normal 0.2-2.0 [facility] Comment on above: Performed By: #### C BC ####[facility] Zxzlfryfcd937267 [address] [place], [place] [address]Dr. Lizandro Hemphill EO # 0.0 103/ul Normal 0.0-0.7 [facility] Comment on above: Performed By: #### C BC ####[facility] Mxidjjhhzn524067 [address] [place], [place] [address]Dr. Lizandro Hemphill Eosinophils/100 WBC (Bld) 0.0 % Critically low 0.9-7.0 [facility] Comment on above: Performed By: #### C BC ####[facility] Jsoejeouvr7845[address] [place], [place] [address]Dr. Lizandro Hemphill Erythrocyte distribution width (RBC) [Ratio] 17.6 % Critically high 11.0-15.0 [facility] Comment on above: Performed By: #### C BC ####[facility] Paodgpppnx692767 [address] [place], [place] [address]Dr. Lizandro Hemphill Hematocrit (Bld) [Volume fraction] 16.8 % Critically low 36.0-48.0 [facility] Comment on above: Performed By: #### C BC ####[facility] Ivdupllvdi4367 [place] [address]DrCiro Lizandro Hemphill Hemoglobin (Bld) [Mass/Vol] 5.7 g/dL Critically low 12.0-16.0 [facility] Comment on above: Performed By: #### C BC ####[facility] Tispuhvqla8153 [place] [address]DrCiro Lizandro Hemphill IG # 0.11 10e3/ul Critically high 0.00-0.03 [facility] Comment on above: Performed By: #### C BC ####[facility] Ggabzaovpl0486 [place] [address]DrCiro Lizandro Joby IG % 0.9 % Critically high 0.0-0.5 [facility] Comment on above: Performed By: #### C BC ####[facility] Lgormswbkq7580 [place] [address]DrCiro Vossannie Joby LYMPH # 0.7 103/ul Critically low 1.2-3.8 [facility] Comment on above: Performed By: #### C BC ####[facility] Zwfjnaihtx0545 [place] [address]DrCiro Lizandro Joby Lymphocytes/100 WBC (Bld) 5.7 % Critically low 20.5-60.0 [facility] Comment on above: Performed By: #### C BC ####[facility] Ffscusssrv8068 [place] [address]DrCiro Shanikaannie Hemphill MANUAL DIFF REQ NO Normal [facility] Comment on above: Performed By: #### C BC ####[facility] Egjurhhycx8942 [place] [phone] Lizandro Joby MCH (RBC) [Entitic mass] 29.5 pg Normal 26.7-34.0 [facility] Comment on above: Performed By: #### C BC ####[facility] Ugphxfzndm8159 [place] [phone] Lizandro Joby MCHC (RBC) [Mass/Vol] 33.9 g/dL Normal 29.9-35.2 [facility] Comment on above: Performed By: #### C BC ####[facility] Lplvswybii5320 [place] [phone] Lizandro Joby MCV (RBC) [Entitic vol] 87.0 fL Normal 81.0-99.0 [facility] Comment on above: Performed By: #### C BC ####[facility] Dlgreiktfc7125 [place] [phone] Hemphill MONO # 0.1 103/ul Critically low 0.3-0.8 [facility] Comment on above: Performed By: #### C BC ####[facility] Buumzdtpjh0201 [place] [address]DrCiro Hemphill Monocytes/100 WBC (Bld) 0.9 % Critically low 1.7-12.0 [facility] Comment on above: Performed By: #### C BC ####[facility] Ldcynyxqgm7538[address] [place], [place] [address]DrCiro Hemphill NEUT # 10.7 103/ul Critically high 1.4-6.5 [facility] Comment on above: Performed By: #### C BC ####[facility] Amtkxhpyww750[address] [place], [place] [address]DrCiro Hemphill Neutrophils/100 WBC (Bld) 92.2 % Critically high 43.0-75.0 [facility] Comment on above: Performed By: #### C BC ####[facility] Ggevcnehpg706767 [address] [place], [place] [address]DrCiro Hemphill Platelet mean volume (Bld) [Entitic vol] 10.7 fL Normal 9.5-13.5 [facility] Comment on above: Performed By: #### C BC ####[facility] Rmzygwnkhx936067 [address] [place], [place] [address]DrCiro Hemphill PLT 217 103/ul Normal 150-450 [facility] Comment on above: Performed By: #### C BC ####[facility] Nfqdywasvx[address] [place], [place] [address]DrCiro Hemphill RBC 1.93 106/ul Critically low 4.20-5.40 [facility] Comment on above: Performed By: #### C BC ####[facility] Lumwibxfcc7748 [place] [phone]. Lizandro Hemphill WBC 11.6 103/ul Critically high 4.0-11.0 [facility] Comment on above: Performed By: #### C BC ####[facility] Szakqakzaz5606 [place] [phone]. Lizandro Hemphill BASO # 0.1 103/ul Normal 0.0-0.1 [facility] Comment on above: Performed By: #### C BC ####[facility] Lieosdvtad9493 [place] [phone]. Lizandro Hemphill Basophils/100 WBC (Bld) 0.6 % Normal 0.2-2.0 [facility] Comment on above: Performed By: #### C BC ####[facility] Lupybhpmxn4106[address] [place], [place] [address]Dr. Lizandro Hemphill EO # 0.0 103/ul Normal 0.0-0.7 [facility] Comment on above: Performed By: #### C BC ####[facility] Olvjznrpki22[address] [place], [place] [address]Dr. Lizandro Hemphill Eosinophils/100 WBC (Bld) 0.3 % Critically low 0.9-7.0 [facility] Comment on above: Performed By: #### C BC ####[facility] Mbjxecpuym0784 [place] [phone]. Lizandro Hemphill Erythrocyte distribution width (RBC) [Ratio] 17.4 % Critically high 11.0-15.0 [facility] Comment on above: Performed By: #### C BC ####[facility] Hqfobwuxxn1969[address] [place], [place] [address]Dr. Lizandro Hemphill Hematocrit (Bld) [Volume fraction] 17.1 % Critically low 36.0-48.0 [facility] Comment on above: Performed By: #### C BC ####[facility] Nimhcwekku753[address] [place], [place] [address]Dr. Lizandro Hemphill Hemoglobin (Bld) [Mass/Vol] 5.7 g/dL Critically low 12.0-16.0 [facility] Comment on above: Performed By: #### C BC ####[facility] Shppzmesrg7947 [place] [address]DrCiro Hemphill IG # 0.10 10e3/ul Critically high 0.00-0.03 [facility] Comment on above: Performed By: #### C BC ####[facility] Nooytrtrhb0061 [place] [address]DrCiro Hemphill IG % 0.9 % Critically high 0.0-0.5 [facility] Comment on above: Performed By: #### C BC ####[facility] Uecmtsyvdx9280[address] [place], [place] [address]DrCiro Hemphill LYMPH # 1.6 103/ul Normal 1.2-3.8 [facility] Comment on above: Performed By: #### C BC ####[facility] Kxuieziogy096467 [address] [place], [place] [address]DrCiro Hemphill Lymphocytes/100 WBC (Bld) 14.4 % Critically low 20.5-60.0 [facility] Comment on above: Performed By: #### C BC ####[facility] Pkizppspos6566 [place] [address]DrCiro Hemphill MANUAL DIFF REQ NO Normal [facility] Comment on above: Performed By: #### C BC ####[facility] Ucmfomcbjl1928 [place] [address]DrCiro Hemphill MCH (RBC) [Entitic mass] 29.2 pg Normal 26.7-34.0 [facility] Comment on above: Performed By: #### C BC ####[facility] Diqhnvdyyi1932 [place] [address]DrCiro Hemphill MCHC (RBC) [Mass/Vol] 33.3 g/dL Normal 29.9-35.2 [facility] Comment on above: Performed By: #### C BC ####[facility] Twdxfiwlaz3206 [place] [address]DrCiro Hemphill MCV (RBC) [Entitic vol] 87.7 fL Normal 81.0-99.0 [facility] Comment on above: Performed By: #### C BC ####[facility] Ljtcoodzwd4627 [place] [phone] Hemphill MONO # 0.9 103/ul Critically high 0.3-0.8 [facility] Comment on above: Performed By: #### C BC ####[facility] Mrdfcxkglb1306 [place] [address]DrCiro Hemphill Monocytes/100 WBC (Bld) 8.1 % Normal 1.7-12.0 [facility] Comment on above: Performed By: #### C BC ####[facility] Blawejrwtg5265[address] [place], [place] [address]Dr. Lizandro Hemphill NEUT # 8.5 103/ul Critically high 1.4-6.5 [facility] Comment on above: Performed By: #### C BC ####[facility] Kspcnnxwgc20[address] [place], [place] [address]Dr. Lizandro Hemphill Neutrophils/100 WBC (Bld) 75.7 % Critically high 43.0-75.0 [facility] Comment on above: Performed By: #### C BC ####[facility] Awkzmytdew4474[address] [place], [place] [address]DrCiro Hemphill Platelet mean volume (Bld) [Entitic vol] 10.9 fL Normal 9.5-13.5 [facility] Comment on above: Performed By: #### C BC ####[facility] Nuhsxiwmlu8772 [place] [phone]. Lizandro Hemphill PLT 232 103/ul Normal 150-450 [facility] Comment on above: Performed By: #### C BC ####[facility] Vawniwsmkg5091 [place] [phone] Hemphill RBC 1.95 106/ul Critically low 4.20-5.40 [facility] Comment on above: Performed By: #### C BC ####[facility] Qjthngdmqh9760 [place] [phone] Hemphill WBC 11.3 103/ul Critically high 4.0-11.0 [facility] Comment on above: Performed By: #### C BC ####[facility] Ovlgotqxvb9976 [place] [address]Dr. Lizandro Hemphill CBC W MANUAL DIFFon 01-26-20 22 ANISOCYTOSIS SLIGHT Normal [facility] Comment on above: Performed By: #### C BCMAN ####[facility] Ilsbwnkxgz2745 [place] [address]Dr. Yiannie Hemphill ATYPICAL LYMPH # Normal [facility] Comment on above: Performed By: #### C BCMAN ####[facility] Xueqaorikx8887[address] [place], [place] [address]Dr. Lizandro Hemphill ATYPICAL LYMPH % Normal [facility] Comment on above: Performed By: #### C BCMAN ####[facility] Seoxbjqxlg8227[address] [place], [place] [address]Dr. Lizandro Hemphill BAND # 0.1 103/ul Normal 0.0-0.3 [facility] Comment on above: Performed By: #### C BCMAN ####[facility] Amzuyvjstk8[address] [place], [place] [address]Dr. Lizandro Hemphill BAND % 1 % Normal 0-5 [facility] Comment on above: Performed By: #### C BCMAN ####[facility] Qcohdvnnct274167 [address] [place], [place] [address]Dr. Lizandro Hemphill BASOM # 0.00 103/ul Normal 0.00-0.10 [facility] Comment on above: Performed By: #### C BCMAN ####[facility] Upvjphtjxo6548[address] [place], [place] [address]Dr. Lizandro Hemphill BASOM % 0.0 % Critically low 0.2-2.0 [facility] Comment on above: Performed By: #### C BCMAN ####[facility] Zbquleduwt208167 [address] [place], [place] [address]Dr. Shanikalan Hemphill BLAST # Normal [facility] Comment on above: Performed By: #### C BCMAN ####[facility] Rcdyfrfiod8710[address] [place], [place] [address]Dr. Yilan Hemphill BLAST % Normal [facility] Comment on above: Performed By: #### C DERRELL ####[facility] Liyehlfefc0329 [place] [phone]. Lizandro Hemphill CORRECTED WBC Normal 4.0-11.0 [facility] Comment on above: Performed By: #### C DERRELL ####[facility] Cddbaoktra7577 [place] [phone]. Lizandro Hemphill EOS # 0.00 103/ul Normal 0.00-0.70 [facility] Comment on above: Performed By: #### C DERRELL ####[facility] Yuziakosui8656 [place] [phone]. Lizandro Hemphill EOS% 0.0 % Critically low 0.9-7.0 [facility] Comment on above: Performed By: #### C DERRELL ####[facility] Eiiuekmyhf5781 [place] [phone]. Lizandro Hemphill HCT 28.0 % Critically low 36.0-48.0 [facility] Comment on above: Performed By: #### C DERRELL ####[facility] Dlqbbzmmha7434 [place] [phone]. Lizandro Hemphill HGB 9.6 g/dl Critically low 12.0-16.0 [facility] Comment on above: Performed By: #### C DERRELL ####[facility] Zfurwidxjg6352 [place] [phone]. Lizandro Hemphill LYMPHM # 0.77 103/ul Critically low 1.20-3.80 [facility] Comment on above: Performed By: #### C DERRELL ####[facility] Csewdwtypx8007 [place] [phone]. Lizandro Hemphill LYMPHM% 8.0 % Critically low 20.5-60.0 [facility] Comment on above: Performed By: #### C DERRELL ####[facility] Dgtpsczill9265 [place] [phone]. Lizandro Hemphill MCH 30.3 pg Normal 26.7-34.0 [facility] Comment on above: Performed By: #### C DERRELL ####[facility] Idzuxfpvzw0104 [place] [phone]. Lizandro Hemphill MCHC 34.3 g/dl Normal 29.9-35.2 [facility] Comment on above: Performed By: #### C DERRELL ####[facility] Keeidgdolk7310 [place] [phone]. Lizandro Hemphill MCV 88.3 fL Normal 81.0-99.0 [facility] Comment on above: Performed By: #### C DERRELL ####[facility] Xqjsauzozu8651 [place] [phone]. Lizandro Hemphill METAMYELOCYTE # Normal [facility] Comment on above: Performed By: #### C DERRELL ####[facility] Yxivtjjudn[address] [place], [place] [address]Dr. Lizandro Hemphill METAMYELOCYTE % Normal [facility] Comment on above: Performed By: #### Tracy DOVE ####[facility] Ojssfjokqc48[address] [place], [place] [address]Dr. Lizandro Hemphill MONOM# 0.10 103/ul Critically low 0.30-0.80 [facility] Comment on above: Performed By: #### C DERRELL ####[facility] Qjdkgiodrk7289[address] [place], [place] [address]Dr. Lizandro Hemphill MONOM% 1.0 % Critically low 1.7-12.0 [facility] Comment on above: Performed By: #### C DERRELL ####[facility] Vwzrobuglg7[address] [place], [place] [address]Dr. Lizandro Hemphill MPV 10.7 fL Normal 9.5-13.5 [facility] Comment on above: Performed By: #### C DERRELL ####[facility] Mxvsecbfne357[address] [place], [place] [address]Dr. Lizandro Hemphill MYELOCYTE # Normal [facility] Comment on above: Performed By: #### C DERRELL ####[facility] Vmfvqurcwp83[address] [place], [place] [address]Dr. Lizandro Hemphill MYELOCYTE % Normal [facility] Comment on above: Performed By: #### C BCMAN ####[facility] Pczrpvifjc4358 [place] [phone]. Lizandro Hemphill NRBC Normal [facility] Comment on above: Performed By: #### Tracy DOVE ####[facility] Gksaffihxi1815 [place] [phone]. Lizandro Hemphill PLT 196 103/ul Normal 150-450 [facility] Comment on above: Performed By: #### Tracy DOVE ####[facility] Snyakklugs7915 [place] [phone]. Lizandro Hemphill RBC 3.17 106/ul Critically low 4.20-5.40 [facility] Comment on above: Performed By: #### Tracy DOVE ####[facility] Ovbhujhiln4993 [place] [phone]. Lizandro Hemphill RDW 16.0 % Critically high 11.0-15.0 [facility] Comment on above: Performed By: #### Tracy DOVE ####[facility] Omxqvesgce2430 [place] [phone]. Lizandro Hemphill SEG # 8.64 103/ul Critically high 1.40-6.50 [facility] Comment on above: Performed By: #### Tracy DOVE ####[facility] Joxzwgzinr3977 [place] [phone]. Lizandro Hemphill SEG % 90.0 % Critically high 43.0-75.0 [facility] Comment on above: Performed By: #### Tracy DOVE ####[facility] Dzfffmafpv6021 [place] [phone]. Lizandro Hemphill WBC 9.6 103/ul Normal 4.0-11.0 [facility] Comment on above: Performed By: #### Tracy DOVE ####[facility] Dvwaoextnz1524 [place] [phone]. Lizandro [place] CT HEAD WO CONon 01-25-2022 CT HEAD WO CON Normal [facility] CULTURE URINEon 01-25-2022 CULTURE URINE Culture Observations : NO GROWTH. Normal [facility] Comment on above: Performed By: #### U RCX ####[facility] Qstxmdkdbl9535 [place] [id number]. Lizandro Hemphill Covid-19 PCR (CVDTBH)on SARS-CoV-2 (COVID-19) RNA VERITO+probe Ql (Unsp spec) Not detected Normal NOT DETECTED [facility] Comment on above: Result Comment: When [...] for this test is supported by the Editor In Chief of Health and Human Service's declaration that [...] be used). Performed By: #### C VDTBH ####[facility] Ftsagskdhz[address] [place] [address]Dr. Lizandro Hemphill FERRITINon 01-25-2022 Ferritin [Mass/Vol] 26.0 ng/mL Normal 8.0-252.0 [facility] Comment on above: Performed By: #### F ETIBC, FERR, B12FOL ####[facility] Uwsazfpmti[address] [place] [id number]. Lizandro Hemphill IRON AND TIBCon 01-25-2022 % SATURATION 2.5 % Normal [facility] Comment on above: Performed By: #### F ETIBC, FERR, B12FOL ####[facility] Nygcirgcyv23[address] [place] [id number]. Lizandro Hemphill Iron [Mass/Vol] 9.0 ug/dL Critically low 50.0-170.0 [facility] Comment on above: Performed By: #### F ETIBC, FERR, B12FOL ####[facility] Lfvoremtqj7177 [place] [phone]. Lizandro Hemphill TIBC DIRECT 356.0 ug/dL Normal 250.0-450.0 [facility] Comment on above: Performed By: #### F ETIBC, FERR, B12FOL ####[facility] Tahmvrdvct[address] [place] [phone]. Lizandro Hemphill LIPASEon 01-25-2022 Lipase [Catalytic activity/Vol] 129.0 U/L Normal 73.0-393.0 [facility] Comment on above: Performed By: #### A MY, LIPA, BNP, HSTROPN, CMP ####[facility] Csfczidata[address] [place] [address]Dr. Lizandro Hemphill PROF 14(COMP METB)on 022 Albumin [Mass/Vol] 3.1 g/dL Critically low 3.4-5.0 [facility] Comment on above: Performed By: #### A MY, LIPA, BNP, HSTROPN, CMP ####[facility] Togagjurex[address] [place] [address]Dr. Lizandro Hemphill Albumin/Globulin [Mass ratio] 1.1 {ratio} Normal [facility] Comment on above: Performed By: #### A MY, LIPA, BNP, HSTROPN, CMP ####[facility] Hbgeearctz2493 [place] [address]Dr. Lizandro Hemphill ALP [Catalytic activity/Vol] 69 U/L Normal 46-116 [facility] Comment on above: Performed By: #### A MY, LIPA, BNP, HSTROPN, CMP ####[facility] Rvsbzhbeyi[address] [place] [address]Dr. Lizandro Hemphill ALT [Catalytic activity/Vol] 24 U/L Normal 14-59 [facility] Comment on above: Performed By: #### A MY, LIPA, BNP, HSTROPN, CMP ####[facility] Whywhulntt7366 [place] [address]Dr. Lizandro Hemphill Anion gap [Moles/Vol] 15.6 mmol/L Normal [facility] Comment on above: Performed By: #### A MY, LIPA, BNP, HSTROPN, CMP ####[facility] Oauoqrlhfm64[address] [place] [address]Dr. Lizandro Hemphill AST [Catalytic activity/Vol] 23 U/L Normal 15-37 [facility] Comment on above: Performed By: #### A MY, LIPA, BNP, HSTROPN, CMP ####[facility] Ighhyaricn8745 [place] [address]Dr. Lizandro Hemphill Bilirubin [Mass/Vol] 0.2 mg/dL Normal 0.2-1.0 [facility] Comment on above: Performed By: #### A MY, LIPA, BNP, HSTROPN, CMP ####[facility] Zgomnxkyes[address] [place], [place] [address]Dr. Lizandro Hemphill Calcium [Mass/Vol] 9.2 mg/dL Normal 8.5-10.1 [facility] Comment on above: Performed By: #### A MY, LIPA, BNP, HSTROPN, CMP ####[facility] Ddybqxukuj12[address] [place] [address]Dr. Lizandro Hemphill Chloride [Moles/Vol] 104 mmol/L Normal 98-107 [facility] Comment on above: Performed By: #### A MY, LIPA, BNP, HSTROPN, CMP ####[facility] Cfhgylrpbw7409 [place] [address]Dr. Lizandro Hemphill CO2 [Moles/Vol] 22.9 mmol/L Normal 21.0-32.0 [facility] Comment on above: Performed By: #### A MY, LIPA, BNP, HSTROPN, CMP ####[facility] Gisfclidmf6877 [place] [address]Dr. Lizandro Hemphill Creatinine [Mass/Vol] 1.09 mg/dL Critically high 0.55-1.02 [facility] Comment on above: Performed By: #### A MY, LIPA, BNP, HSTROPN, CMP ####[facility] Ybfflkjuvf[address] [place], [place] [address]Dr. Lizandro Hemphill EGFR-AF CYMRAES >60 Normal >=60 [facility] Comment on above: Performed By: #### A MY, LIPA, BNP, HSTROPN, CMP ####[facility] Tsxskcgyzk5572 [place] [address]Dr. Lizandro Hemphill EGFR-NON AF CYMRAES 51 mL/min/1.73m2 Critically low >=60 [facility] Comment on above: Performed By: #### A MY, LIPA, BNP, HSTROPN, CMP ####[facility] Yfrbahwnua8531 [place] [address]Dr. iLzandro Hemphill Globulin (S) [Mass/Vol] 2.9 g/dL Normal [facility] Comment on above: Performed By: #### A MY, LIPA, BNP, HSTROPN, CMP ####[facility] Hmkeiddttc8598 [place] [address]Dr. Lizandro Hemphill Glucose [Mass/Vol] 112 mg/dL Critically high 74-106 [facility] Comment on above: Performed By: #### A MY, LIPA, BNP, HSTROPN, CMP ####[facility] Nohgunzios[address] [place] [address]Dr. Lizandro Hemphill Potassium [Moles/Vol] 3.5 mmol/L Normal 3.5-5.1 [facility] Comment on above: Performed By: #### A MY, LIPA, BNP, HSTROPN, CMP ####[facility] Zfeukogffd8704 [place] [address]Dr. Lizandro Hemphill Protein [Mass/Vol] 6.0 g/dL Critically low 6.4-8.2 [facility] Comment on above: Performed By: #### A MY, LIPA, BNP, HSTROPN, CMP ####[facility] Owfianewpl7871 [place] [address]Dr. Lizandro Hemphill Sodium [Moles/Vol] 139 mmol/L Normal 136-145 [facility] Comment on above: Performed By: #### A MY, LIPA, BNP, HSTROPN, CMP ####[facility] Jysiauaakw6[address] [place] [address]Dr. Lizandro Hemphill Urea nitrogen [Mass/Vol] 30.0 mg/dL Critically high 7.0-18.0 [facility] Comment on above: Performed By: #### A MY, LIPA, BNP, HSTROPN, CMP ####[facility] Lxpznwrowd6[address] [place], [place] [address]Dr. Lizandro Hemphill Urea nitrogen/Creatinin e [Mass ratio] 27.5 mg/mg Normal [facility] Comment on above: Performed By: #### A MY, LIPA, BNP, HSTROPN, CMP ####[facility] Ucttkunzaa[address] [place], [place] [address]Dr. Lizandro Hemphill PROTIMEon 01-25-2022 INR Coag (PPP) [Relative time] 1.48 {INR} Normal [facility] Comment on above: Performed By: #### P TT, PT ####[facility] Offwlfqoid225[address] [place], [place] [address]Dr. Lizandro Hemphill INR GUIDELINES SEE BELOW Normal [facility] Comment on above: Result Comment: GUEVARA RED INR: 2.0 - 3.0 CONDITIONS NOT LISTED BELOW 2.5 - 3.5 FOR PROSTHETIC HEART VALVE REPLACEMENT 2.5 - 3.5 RECURRENT THROMBOSIS Performed By: #### P TT, PT ####[facility] Aofyepscat[address] [place], [place] [address]Dr. Lizandro Hemphill PT Coag (PPP) [Time] 15.6 s Critically high 9.0-11.6 [facility] Comment on above: Performed By: #### P TT, PT ####[facility] Wlygcbchro12[address] [place], [place] [address]Dr. Lizandro Hemphill PTTon 01-25-2022 aPTT Coag (Bld) [Time] 24.9 s Normal 22.3-36.2 [facility] Comment on above: Performed By: #### P TT, PT ####[facility] Bkivmf[address]zn[address] [place], [place] [address]Dr. Lizandro Hemphill TROPONIN, HIGH SENSITIVITYon 01-25-2022 HSTROP 8.4 pg/mL Normal 4.0-51.3 [facility] Comment on above: Result Comment: CUT- OFF POINTS HAVE BEEN ESTABLISHED BASED ON THE FOURTH UNIVERSAL DEFINITIONS OF MYOCARDIALINFARCTION. THE UPPER REFERENCE LIMIT (URL) OF TROPONIN, DEFINED THE 99TH PERCENTILE OFcTnI DISTRIBUTION IN A REFERENCE POPULATION, HAS BEEN CONFIRMED THE DECISION THRESHOLDFOR ND DIAGNOSIS. Performed By: #### A MY, LIPA, BNP, HSTROPN, CMP ####[facility] Ukqefvcker48[address] [place] [address]Dr. Lizandro Hemphill TYPE AND SCREENon 01-25-2022 TYPE AND SCREEN Negative Normal [facility] Comment on above: Performed By: #### T NS ####[facility] Urorpqdpsf6395 [place] [address]Dr. Lizandro Hemphill VIT B12 AND FOLATEon 022 Cobalamin (Vitamin B12) [Mass/Vol] 394.0 pg/mL Normal 193.0-986.0 [facility] Comment on above: Performed By: #### F ETIBC, FERR, B12FOL ####[facility] Ntrrktamhw4864 [place] [address]Dr. annie Hemphill FOLATE 18.00 ng/mL Normal 8.60-58.90 [facility] Comment on above: Performed By: #### F ETIBC, FERR, B12FOL ####[facility] Ynnvsnjvzh1782 [place] [address]Dr. Lizandro Hemphill XR CHEST 1 Von 01-25-2022 XR CHEST 1 V Normal [facility] PROTIMEon 01-17-2022 INR Coag (PPP) [Relative time] {INR} Normal [facility] Comment on above: Performed By: #### P T ####[facility] Efrgpafpbe48[address] [place] [address]Dr. Lizandro Hemphill INR GUIDELINES SEE BELOW Normal [facility] Comment on above: Result Comment: GUEVARA RED INR: 2.0 - 3.0 CONDITIONS NOT LISTED BELOW 2.5 - 3.5 FOR PROSTHETIC HEART VALVE REPLACEMENT 2.5 - 3.5 RECURRENT THROMBOSIS Performed By: #### P T ####[facility] Teaeombkyn[address] [place] [phone]. Lizandro Hemphill PT Coag (PPP) [Time] 9.6 s Normal 9.0-11.6 [facility] Comment on above: Performed By: #### P T ####[facility] Ciavpwlfpb6726 [place] [phone]. Lizandro Hmephill Covid-19 PCR ([facility])on 12-25 SARS-CoV-2 (COVID-19) RNA VERITO+probe Ql (Unsp spec) Not detected Normal NOT DETECTED [facility] Comment on above: Result Comment: This test is not yet approved or cleared by the [place] FDA. When there are no FDA-approved or cleared tests available, and other criteria are met, FDA can make tests available under an emergency access mechanism called an Emergency Use Authorization (EUA). The EUA for this test is supported by the Speed of Health and Human Service's (HHS's) declaration [...] with SARS-CoV-2. Performed By: #### C VDTB ####[facility] Enwbcnkzkb6438 [place] [address]DrCiro Lizandro Hemphill PROTIMEon 12-06-2021 INR Coag (PPP) [Relative time] {INR} Normal [facility] Comment on above: Performed By: #### P T ####[facility] Ciwkxschzx8278 [place] [phone] Lizandro Hemphill INR GUIDELINES SEE BELOW Normal [facility] Comment on above: Result Comment: GUEVARA RED INR: 2.0 - 3.0 CONDITIONS NOT LISTED BELOW 2.5 - 3.5 FOR PROSTHETIC HEART VALVE REPLACEMENT 2.5 - 3.5 RECURRENT THROMBOSIS Performed By: #### P T ####[facility] [address] [place], [place] [address]Mt. Lizandro Hemphill PT Coag (PPP) [Time] 9.5 s Normal 9.0-11.6 [facility] Comment on above: Performed By: #### P T ####[facility] Lisbmfwohf[address] [place], [place] [address]Ka. Lizandro Hemphill [facility]19 PCR [facility]on SARS-CoV-2 (COVID-19) RNA VERITO+probe Ql (Unsp spec) Not detected Normal NOT DETECTED [facility] Comment on above: Result Comment: This test is not yet approved or cleared by the [place] FDA. When there are no FDA-approved or cleared tests available, and other criteria are met, FDA can make tests available under an emergency access mechanism called an Emergency Use Authorization (EUA). The EUA for this test is supported by the Editor In Chief of Health and Human Service's (HHS's) declaration [...] with SARS-CoV-2. Performed By: #### C VDTB ####[facility] Jyjcilbmpg77[address] [place], [place] [address]Lt. Lizandro Hemphill CBC AUTO DIFFon 10-31-2021 BASO # 0.1 103/ul Normal 0.0-0.1 [facility] Comment on above: Performed By: #### C BC ####[facility] Nswaemhmxg3374 [place], [place] [address]Im. Lizandro Hemphill Basophils/100 WBC (Bld) 0.7 % Normal 0.2-2.0 [facility] Comment on above: Performed By: #### C BC ####[facility] Kejeuuauoe[address]61 [place] [phone]. Lizandro Hemphill EO # 0.1 103/ul Normal 0.0-0.7 [facility] Comment on above: Performed By: #### C BC ####[facility] Vbqybbhwah8834 [place] [address]Dr. Lizandro Hemphill Eosinophils/100 WBC (Bld) 0.7 % Critically low 0.9-7.0 [facility] Comment on above: Performed By: #### C BC ####[facility] V[address]cxyehl[address] [place], [place] [address]Dr. Lizandro Hemphill Erythrocyte distribution width (RBC) [Ratio] 17.5 % Critically high 11.0-15.0 [facility] Comment on above: Performed By: #### C BC ####[facility] Hictzdhypv[address] [place], [place] [address]Dr. Lizandro Hemphill Hematocrit (Bld) [Volume fraction] 39.6 % Normal 36.0-48.0 [facility] Comment on above: Performed By: #### C BC ####[facility] Pvxwgzprpx[address] [place], [place] [address]Dr. Lizandro Hemphill Hemoglobin (Bld) [Mass/Vol] 12.6 g/dL Normal 12.0-16.0 [facility] Comment on above: Performed By: #### C BC ####[facility] Lnjsuwygib[address] [place], [place] [address]Dr. Lizandro Hemphill IG # 0.04 10e3/ul Critically high 0.00-0.03 [facility] Comment on above: Performed By: #### C BC ####[facility] Ysujthydfb[address] [place], [place] [address]Dr. Lizandro Hemphill IG % 0.4 % Normal 0.0-0.5 [facility] Comment on above: Performed By: #### C BC ####[facility] Zkdgcfiece[address] [place], [place] [address]Dr. Lizandro Hemphill LYMPH # 1.8 103/ul Normal 1.2-3.8 [facility] Comment on above: Performed By: #### C BC ####[facility] Ahneecdivz1431 [place] [phone]. Shanikaannie Hemphill Lymphocytes/100 WBC (Bld) 17.4 % Critically low 20.5-60.0 [facility] Comment on above: Performed By: #### C BC ####[facility] Vflbzhypqc4824 [place] [phone]. Lizandro Hemphill MANUAL DIFF REQ NO Normal [facility] Comment on above: Performed By: #### C BC ####[facility] Zaveyunmai8288 [place] [phone]. Lizandro Hemphill MCH (RBC) [Entitic mass] 26.9 pg Normal 26.7-34.0 [facility] Comment on above: Performed By: #### C BC ####[facility] [address]kticnvqdp[address] [place], [place] [address]Dr. Lizandro Hemphill MCHC (RBC) [Mass/Vol] 31.8 g/dL Normal 29.9-35.2 [facility] Comment on above: Performed By: #### C BC ####[facility] Jxmsr[address]ax[address] [place], [place] [address]Dr. Lizandro Hemphill MCV (RBC) [Entitic vol] 84.6 fL Normal 81.0-99.0 [facility] Comment on above: Performed By: #### C BC ####[facility] Lrpbsjwogk[address] [place], [place] [address]Dr. Lizandro Hemphill MONO # 0.9 103/ul Critically high 0.3-0.8 [facility] Comment on above: Performed By: #### C BC ####[facility] [address]jrlzqrj[address] [place], [place] [address]Dr. Lizandro Hemphill Monocytes/100 WBC (Bld) 8.5 % Normal 1.7-12.0 [facility] Comment on above: Performed By: #### C BC ####[facility] Yeqnpigaep[address] [place], [place] [address]Dr. Lizandro Hemphill NEUT # 7.5 103/ul Critically high 1.4-6.5 [facility] Comment on above: Performed By: #### C BC ####[facility] Pjtnodmeot8082 [place] [phone]. Lizandro Hemphill Neutrophils/100 WBC (Bld) 72.3 % Normal 43.0-75.0 [facility] Comment on above: Performed By: #### C BC ####[facility] Iczvbhxjpx1977 [place] [phone]. Lizandro Hemphill Platelet mean volume (Bld) [Entitic vol] 10.6 fL Normal 9.5-13.5 [facility] Comment on above: Performed By: #### C BC ####[facility] Bgfnlsshgl9259 [place] [phone]. Lizandro Hemphill PLT 356 103/ul Normal 150-450 [facility] Comment on above: Performed By: #### C BC ####[facility] Mwzexkuacg6737 [place] [address]Dr. Lizandro Joby RBC 4.68 106/ul Normal 4.20-5.40 [facility] Comment on above: Performed By: #### C BC ####[facility] Zkzalqnsgh7898 [place] [phone]. Lizandro Hemphill WBC 10.4 103/ul Normal 4.0-11.0 [facility] Comment on above: Performed By: #### C BC ####[facility] Jcwiaurkyx8221 [place] [phone]. Lizandro Joby CT HEAD WO CONon 10-31-2021 CT HEAD WO CON Normal [facility] PROF CHEM 8 (BAS METB)on Anion gap [Moles/Vol] 13.0 mmol/L Normal [facility] Comment on above: Performed By: #### H RICARDO, BMP ####[facility] Icuxldtldr8931 [place] [phone]. Lizandro Joby Calcium [Mass/Vol] 9.4 mg/dL Normal 8.5-10.1 [facility] Comment on above: Performed By: #### H RICARDO, BMP ####[facility] [address] [place], [place] [address]Dr. Lizandro Hemphill Chloride [Moles/Vol] 104 mmol/L Normal 98-107 [facility] Comment on above: Performed By: #### Alistair SILVA, BMP ####[facility] Ijjpgdcwsx8829 [place] [address]Dr. Lizandro Hemphill CO2 [Moles/Vol] 25.7 mmol/L Normal 21.0-32.0 [facility] Comment on above: Performed By: #### Alistair SILVA, BMP ####[facility] Byqvcpgsbi7876 [place] [address]Dr. Lizandro Hemphill Creatinine [Mass/Vol] 0.82 mg/dL Normal 0.55-1.02 [facility] Comment on above: Performed By: #### Alistair SILVA, BMP ####[facility] Vgodvzdusg6090 [place] [address]Dr. Lizandro Hemphill EGFR-AF CYMRAES >60 Normal >=60 [facility] Comment on above: Performed By: #### Alistair SILVA, BMP ####[facility] Ugmeuhwndc2189 [place] [address]Dr. Lizandro Hemphill EGFR-NON AF CYMRAES >60 Normal >=60 [facility] Comment on above: Performed By: #### Alistair SILVA, BMP ####[facility] [address]mfxuq[address] [place], [place] [address]Dr. Lizandro Hemphill Glucose [Mass/Vol] 105 mg/dL Normal 74-106 [facility] Comment on above: Performed By: #### Alistair SILVA, BMP ####[facility] Pcyyuzrgri4808 [place] [address]Dr. Lizandro Hemphill Potassium [Moles/Vol] 3.7 mmol/L Normal 3.5-5.1 [facility] Comment on above: Performed By: #### Alistair SILVA, BMP ####[facility] Tivfwwqyxz5825 [place] [address]Dr. Lizandro Hemphill Sodium [Moles/Vol] 139 mmol/L Normal 136-145 [facility] Comment on above: Performed By: #### Alistair SILVA, BMP ####[facility] Dgyelvghsv7662 [place] [address]Dr. Lizandro Hemphill Urea nitrogen [Mass/Vol] 15.0 mg/dL Normal 7.0-18.0 [facility] Comment on above: Performed By: #### H ELSA SILVA ####[facility] Zqsodmxcrf6240 [place] [address]Dr. Lizandro Hemphill Urea nitrogen/Creatinin e [Mass ratio] 18.3 mg/mg Normal [facility] Comment on above: Performed By: #### H RICARDO, ELSA ####[facility] Jppeksjvky0940 [place] [address]Dr. Lizandro Hemphill PROTIMEon 10-31-2021 INR Coag (PPP) [Relative time] 1.35 {INR} Normal [facility] Comment on above: Performed By: #### P T ####[facility] Fdiprhoygi[address] [place], [place] [address]Dr. Lizandro Hemphill INR GUIDELINES SEE BELOW Normal [facility] Comment on above: Result Comment: GUEVARA RED INR: 2.0 - 3.0 CONDITIONS NOT LISTED BELOW 2.5 - 3.5 FOR PROSTHETIC HEART VALVE REPLACEMENT 2.5 - 3.5 RECURRENT THROMBOSIS Performed By: #### P T ####[facility] Ncccnkcbgk[address] [place], [place] [address]Dr. Lizandro Hemphill PT Coag (PPP) [Time] 14.3 s Critically high 9.0-11.6 [facility] Comment on above: Performed By: #### P T ####[facility] [address]jdsrbknzz[address] [place], [place] [address]Dr. Lizandro Hemphill TROPONIN, HIGH SENSITIVITYon 10-31-2021 HSTROP 4.9 pg/mL Normal 4.0-51.3 [facility] Comment on above: Result Comment: CUT- OFF POINTS HAVE BEEN ESTABLISHED BASED ON THE FOURTH UNIVERSAL DEFINITIONS OF MYOCARDIALINFARCTION. THE UPPER REFERENCE LIMIT (URL) OF TROPONIN, DEFINED THE 99TH PERCENTILE OFcTnI DISTRIBUTION IN A REFERENCE POPULATION, HAS BEEN CONFIRMED THE DECISION THRESHOLDFOR ND DIAGNOSIS. Performed By: #### H RICARDO, ELSA ####[facility] [address]mswajisw[address] [place], [place] [address]Dr. Lizandro Hemphill CBC AUTO DIFFon 10-30-2021 BASO # 0.1 103/ul Normal 0.0-0.1 [facility] Comment on above: Performed By: #### C BC ####[facility] Pcnoclnuux4109 [place] [address]Dr. Lizandro Hemphill Basophils/100 WBC (Bld) 0.8 % Normal 0.2-2.0 [facility] Comment on above: Performed By: #### C BC ####[facility] Lcvkediqqn1593 [place] [address]Dr. Lizandro Hemphill EO # 0.0 103/ul Normal 0.0-0.7 [facility] Comment on above: Performed By: #### C BC ####[facility] Nqhiuncerv[address] [place], [place] [address]Dr. Lizandro Hemphill Eosinophils/100 WBC (Bld) 0.4 % Critically low 0.9-7.0 [facility] Comment on above: Performed By: #### C BC ####[facility] Rumlmtutwo[address] [place], [place] [address]Dr. Lizandro Hemphill Erythrocyte distribution width (RBC) [Ratio] 17.4 % Critically high 11.0-15.0 [facility] Comment on above: Performed By: #### C BC ####[facility] Vjltypmmvn[address] [place], [place] [address]Dr. Lizandro Hemphill Hematocrit (Bld) [Volume fraction] 39.7 % Normal 36.0-48.0 [facility] Comment on above: Performed By: #### C BC ####[facility] [address]ubnzzlc[address] [place], [place] [address]Dr. Lizandro Hemphill Hemoglobin (Bld) [Mass/Vol] 12.7 g/dL Normal 12.0-16.0 [facility] Comment on above: Performed By: #### C BC ####[facility] Xdwbbfczso[address] [place], [place] [address]Dr. Lizandro Joby IG # 0.06 10e3/ul Critically high 0.00-0.03 [facility] Comment on above: Performed By: #### C BC ####[facility] Myffqwlwoc3525 [place] [id number]. Lizandro Hemphill IG % 0.5 % Normal 0.0-0.5 [facility] Comment on above: Performed By: #### C BC ####[facility] Jwqyxnufcj6392 [place] [id number]. Lizandro Hemphill LYMPH # 1.8 103/ul Normal 1.2-3.8 [facility] Comment on above: Performed By: #### C BC ####[facility] Dijtlnxcod7197 [place] [phone]. Lizandro Joby Lymphocytes/100 WBC (Bld) 16.1 % Critically low 20.5-60.0 [facility] Comment on above: Performed By: #### C BC ####[facility] Ichtravhxz2617 [place] [phone]. Lizandro Joby MANUAL DIFF REQ NO Normal [facility] [place] Comment on above: Performed By: #### C BC ####[facility] Ypkcsdpozc1103 [place] [id number]. Lizandro Joby MCH (RBC) [Entitic mass] 27.3 pg Normal 26.7-34.0 [facility] Comment on above: Performed By: #### C BC ####[facility] Expmvwctkz0334 [place] [phone]. Lizandro Hemphill MCHC (RBC) [Mass/Vol] 32.0 g/dL Normal 29.9-35.2 [facility] Comment on above: Performed By: #### C BC ####[facility] Phkvcjsbyk0557 [place] [phone]. Lizandro Hemphill MCV (RBC) [Entitic vol] 85.4 fL Normal 81.0-99.0 [facility] Comment on above: Performed By: #### C BC ####[facility] Bwuvtzgrqr6655 [place] [phone]. Shanikaannie Hemphill MONO # 1.2 103/ul Critically high 0.3-0.8 [facility] [place] Comment on above: Performed By: #### C BC ####[facility] Zusfbjocsy9913 [place] [phone]. Lizandro Hemphill Monocytes/100 WBC (Bld) 10.9 % Normal 1.7-12.0 [facility] Comment on above: Performed By: #### C BC ####[facility] Cilpsleuuq9240 [place] [phone]. Lizandro Hemphill NEUT # 7.8 103/ul Critically high 1.4-6.5 [facility] [place] Comment on above: Performed By: #### C BC ####[facility] Qpwqjuvmhf3943 [place] [phone]. Lizandro Hemphill Neutrophils/100 WBC (Bld) 71.3 % Normal 43.0-75.0 [facility] Comment on above: Performed By: #### C BC ####[facility] [address]fskrm[address] [place] [address]Dr. Lizandro Hemphill Platelet mean volume (Bld) [Entitic vol] 10.4 fL Normal 9.5-13.5 [facility] Comment on above: Performed By: #### C BC ####[facility] Qjrxxkddch5976 [place] [phone]. Lizandro Hemphill PLT 324 103/ul Normal 150-450 [facility] Comment on above: Performed By: #### C BC ####[facility] Brgxnthnby5127 [place] [phone]. Lizandro Hemphill RBC 4.65 106/ul Normal 4.20-5.40 [facility] Comment on above: Performed By: #### C BC ####[facility] Vsejtzpoai8588 [place] [phone]. Lizandro Hemphill WBC 11.0 103/ul Normal 4.0-11.0 [facility] Comment on above: Performed By: #### C BC ####[facility] Vveyrguyxt5370 [place] [address]Dr. Lizandro Hemphill PROF CHEM 8 (BAS METB)on Anion gap [Moles/Vol] 14.3 mmol/L Normal [facility] Comment on above: Performed By: #### B MP ####[facility] Mnhjdebbkx9973 [place] [phone]. Lizandro Hemphill Calcium [Mass/Vol] 9.1 mg/dL Normal 8.5-10.1 [facility] Comment on above: Performed By: #### B MP ####[facility] Jcfhwmwwzt5602 [place] [phone]. Lizandro Hemphill Chloride [Moles/Vol] 104 mmol/L Normal 98-107 [facility] Comment on above: Performed By: #### B MP ####[facility] Ojlqttkhbz1746 [place] [phone]. Lizandro Hemphill CO2 [Moles/Vol] 26.7 mmol/L Normal 21.0-32.0 [facility] Comment on above: Performed By: #### B MP ####[facility] Hsepxyrarp8[address] [place], [place] [address]Dr. Lizandro Hemphill Creatinine [Mass/Vol] 0.91 mg/dL Normal 0.55-1.02 [facility] Comment on above: Performed By: #### B MP ####[facility] Skrwsdwlpy3328 [place] [address]Dr. Lizandro Hemphill EGFR-AF CYMRAES >60 Normal >=60 [facility] Comment on above: Performed By: #### B MP ####[facility] Wnfrkqllte889467 [address] [place], [place] [address]Dr. Lizandro Hemphill EGFR-NON AF CYMRAES >60 Normal >=60 [facility] Comment on above: Performed By: #### B MP ####[facility] Lxgmvoauws1859 [place] [address]Dr. Lizandro Hemphill Glucose [Mass/Vol] 119 mg/dL Critically high 74-106 [facility] Comment on above: Performed By: #### B MP ####[facility] Jevegiwqkm090267 [address] [place], [place] [address]Dr. Lizandro Hemphill Potassium [Moles/Vol] 4.0 mmol/L Normal 3.5-5.1 [facility] Comment on above: Performed By: #### B MP ####[facility] Axebrxnvoq730767 [address] [place], [place] [address]Dr. Lizandro Hemphill Sodium [Moles/Vol] 141 mmol/L Normal 136-145 [facility] Comment on above: Performed By: #### B MP ####[facility] Pgabesfnzi2415 [place] [address]Dr. Lizandro Hemphill Urea nitrogen [Mass/Vol] 18.0 mg/dL Normal 7.0-18.0 [facility] Comment on above: Performed By: #### B MP ####[facility] Swpsrmgeur645867 [address] [place], [place] [address]Dr. Lizandro Hemphill Urea nitrogen/Creatinin e [Mass ratio] 19.8 mg/mg Normal [facility] Comment on above: Performed By: #### B MP ####[facility] Cuqoqekhxn356067 [address] [place], [place] [address]Dr. Lizandro Hemphill CULTURE URINEon 10-27-2021 CULTURE URINE Normal [facility] Comment on above: Performed By: #### U RCX ####[facility] Ynqvqhdyje877[address] [place], [place] [address]Dr. Lizandro Hemphill PROTIMEon 10-25-2021 INR Coag (PPP) [Relative time] 1.09 {INR} Normal [facility] Comment on above: Performed By: #### P T ####[facility] Apaxrdainx164167 [address] [place], [place] [address]Dr. Lizandro Hemphill INR GUIDELINES SEE BELOW Normal [facility] Comment on above: Result Comment: GUEVARA RED INR: 2.0 - 3.0 CONDITIONS NOT LISTED BELOW 2.5 - 3.5 FOR PROSTHETIC HEART VALVE REPLACEMENT 2.5 - 3.5 RECURRENT THROMBOSIS Performed By: #### P T ####[facility] Ufddfvuwlh358667 [address] [place], [place] [address]Dr. Lizandro Hemphill PT Coag (PPP) [Time] 11.7 s Critically high 9.0-11.6 [facility] Comment on above: Performed By: #### P T ####[facility] Qqajqbdlmz600767 [address] [place], [place] [address]Dr. Lizandro Hemphill CBC AUTO DIFFon 10-21-2021 BASO # 0.1 103/ul Normal 0.0-0.1 [facility] Comment on above: Performed By: #### C BC ####[facility] Gebuhonbih702367 [address] [place], [place] [address]Dr. Lizandro Hemphill Basophils/100 WBC (Bld) 1.2 % Normal 0.2-2.0 [facility] Comment on above: Performed By: #### C BC ####[facility] Mqcnnmdrgx734967 [address] [place], [place] [address]Dr. Lizandro Hemphill EO # 0.2 103/ul Normal 0.0-0.7 [facility] Comment on above: Performed By: #### C BC ####[facility] Vkukxpzasy180467 [address] [place], [place] [address]Dr. Lizandro Hemphill Eosinophils/100 WBC (Bld) 4.5 % Normal 0.9-7.0 [facility] Comment on above: Performed By: #### C BC ####[facility] Zcqmgiswdh593067 [address] [place], [place] [address]Dr. Lizandro Hemphill Erythrocyte distribution width (RBC) [Ratio] 17.0 % Critically high 11.0-15.0 [facility] Comment on above: Performed By: #### C BC ####[facility] Zaemxjnmkn027867 [address] [place], [place] [address]Dr. Lizandro Hemphill Hematocrit (Bld) [Volume fraction] 34.8 % Critically low 36.0-48.0 [facility] Comment on above: Performed By: #### C BC ####[facility] Iqdkuysouo63[address] [place], [place] [address]Dr. Lizandro Hemphill Hemoglobin (Bld) [Mass/Vol] 11.3 g/dL Critically low 12.0-16.0 [facility] Comment on above: Performed By: #### C BC ####[facility] Cpwluxaniq464667 [address] [place], [place] [address]Dr. Lizandro Hemphill IG # 0.01 10e3/ul Normal 0.00-0.03 [facility] Comment on above: Performed By: #### C BC ####[facility] Ctqrxoxeig610467 [address] [place], [place] [address]Dr. Lizandro Hemphill IG % 0.2 % Normal 0.0-0.5 [facility] Comment on above: Performed By: #### C BC ####[facility] Dgugmwphnh6761 [place] [address]DrCiro Shanikaannie Hemphill LYMPH # 1.6 103/ul Normal 1.2-3.8 [facility] Comment on above: Performed By: #### C BC ####[facility] Ismobvczcc2450 [place] [address]DrCiro Hemphill Lymphocytes/100 WBC (Bld) 33.1 % Normal 20.5-60.0 [facility] Comment on above: Performed By: #### C BC ####[facility] Pfhhrtwbsv603967 [address] [place], [place] [address]DrCiro Hemphill MANUAL DIFF REQ NO Normal [facility] Comment on above: Performed By: #### C BC ####[facility] Nnubiwsczk748467 [address] [place], [place] [address]Dr. Shanikaannie Hemphill MCH (RBC) [Entitic mass] 28.0 pg Normal 26.7-34.0 [facility] Comment on above: Performed By: #### C BC ####[facility] Bbwkrzzuxa177467 [address] [place], [place] [address]Dr. Lizandro Joby MCHC (RBC) [Mass/Vol] 32.5 g/dL Normal 29.9-35.2 [facility] Comment on above: Performed By: #### C BC ####[facility] Rgkjflnqob761767 [address] [place], [place] [address]DrCiro Hemphill MCV (RBC) [Entitic vol] 86.4 fL Normal 81.0-99.0 [facility] Comment on above: Performed By: #### C BC ####[facility] Cmpkuoxeeo553467 [address] [place], [place] [address]DrCiro Hemphill MONO # 0.7 103/ul Normal 0.3-0.8 [facility] Comment on above: Performed By: #### C BC ####[facility] Szfnipafrp[address] [place], [place] [address]DrCiro Hemphill Monocytes/100 WBC (Bld) 14.3 % Critically high 1.7-12.0 [facility] Comment on above: Performed By: #### C BC ####[facility] Jeaytpmeey6752 [place] [address]Dr. Lizandro Hemphill NEUT # 2.3 103/ul Normal 1.4-6.5 [facility] Comment on above: Performed By: #### C BC ####[facility] Vwzhumwldp7771 [place] [address]Dr. Lizandro Hemphill Neutrophils/100 WBC (Bld) 46.7 % Normal 43.0-75.0 [facility] Comment on above: Performed By: #### C BC ####[facility] Xwscekaxwy6614 [place] [address]Dr. Lizandro Hemphill Platelet mean volume (Bld) [Entitic vol] 10.9 fL Normal 9.5-13.5 [facility] Comment on above: Performed By: #### C BC ####[facility] Mzsvkjrqks2176 [place] [address]Dr. Lizandro Hemphill PLT 213 103/ul Normal 150-450 [facility] Comment on above: Performed By: #### C BC ####[facility] Yndypeuvfq556767 [address] [place], [place] [address]Dr. Lizandro Hemphill RBC 4.03 106/ul Critically low 4.20-5.40 [facility] [place] Comment on above: Performed By: #### C BC ####[facility] Zhylpmflms6889 [place] [address]Dr. Lizandro Hemphill WBC 4.9 103/ul Normal 4.0-11.0 [facility] Comment on above: Performed By: #### C BC ####[facility] Axqdjnjldw1336 [place] [phone]. Lizandro Hemphill CRPon 10-21-2021 CRP [Mass/Vol] mg/L Normal <=1.0 [facility] Comment on above: Performed By: #### C RP, CMP ####[facility] Usdkpnclfj2782 [place] [address]Dr. Lizandro Joby Covid-19 PCR (CVDTBH)on 09-24 SARS-CoV-2 (COVID-19) RNA VERITO+probe Ql (Unsp spec) Not detected Normal NOT DETECTED [facility] Comment on above: Result Comment: This test is not yet approved or cleared by the [place] FDA. When there are no FDA-approved or cleared tests available, and other criteria are met, FDA can make tests available under an emergency access mechanism called an Emergency Use Authorization (EUA). The EUA for this test is supported by the Editor In Chief of Health and Human Service's (HHS's) declaration [...] with SARS-CoV-2. Performed By: #### C VDTBH ####[facility] Zuurhirpng156167 [address] [place], [place] [address]Dr. Lizandro Hemphill PROF 14(COMP METB)on 022 Albumin [Mass/Vol] 2.7 g/dL Critically low 3.4-5.0 [facility] Comment on above: Performed By: #### C RP, CMP ####[facility] Crncbvlvkp445367 [address] [place], [place] [address]DrCiro Hemphill Albumin/Globulin [Mass ratio] 0.8 {ratio} Normal [facility] Comment on above: Performed By: #### C RP, CMP ####[facility] Qkmsndqswr187567 [address] [place], [place] [address]Dr. Lizandro Hemphill ALP [Catalytic activity/Vol] 86 U/L Normal 46-116 [facility] Comment on above: Performed By: #### C RP, CMP ####[facility] Cukktxlbrg978467 [address] [place], [place] [address]Dr. Lizandro Hemphill ALT [Catalytic activity/Vol] 23 U/L Normal 14-59 [facility] Comment on above: Performed By: #### C RP, CMP ####[facility] Rkzuxsszoj6745 [place] [address]Dr. Lizandro Hemphill Anion gap [Moles/Vol] 10.8 mmol/L Normal [facility] Comment on above: Performed By: #### C RP, CMP ####[facility] Rhylorharm3162 [place] [address]Dr. Lizandro Joby AST [Catalytic activity/Vol] 25 U/L Normal 15-37 [facility] Comment on above: Performed By: #### C RP, CMP ####[facility] Cqebnwuizu750[address] [place], [place] [address]Dr. Lizandro Hemphill Bilirubin [Mass/Vol] 0.1 mg/dL Critically low 0.2-1.0 [facility] Comment on above: Performed By: #### C RP, CMP ####[facility] Nobgmkmvbi229267 [address] [place], [place] [address]Dr. Lizandro Hemphill Calcium [Mass/Vol] 8.0 mg/dL Critically low 8.5-10.1 [facility] Comment on above: Performed By: #### C RP, CMP ####[facility] Fmtpmzkmev129267 [address] [place], [place] [address]Dr. Lizandro Hemphill Chloride [Moles/Vol] 107 mmol/L Normal 98-107 [facility] Comment on above: Performed By: #### C RP, CMP ####[facility] Zjvibdaaog679967 [address] [place], [place] [address]Dr. Lizandro Hemphill CO2 [Moles/Vol] 26.7 mmol/L Normal 21.0-32.0 [facility] Comment on above: Performed By: #### C RP, CMP ####[facility] Njnavjgkvk373367 [address] [place], [place] [address]Dr. Lizandro Hemphill Creatinine [Mass/Vol] 0.80 mg/dL Normal 0.55-1.02 [facility] Comment on above: Performed By: #### C RP, CMP ####[facility] Tucbuuvgkm174167 [address] [place], [place] [address]Dr. Lizandro Hemphill EGFR-AF CYMRAES >60 Normal >=60 [facility] Comment on above: Performed By: #### C RP, CMP ####[facility] Hwizyggqlv9746 [place] [phone]. Lizandro Hemphill EGFR-NON AF CYMRAES >60 Normal >=60 [facility] Comment on above: Performed By: #### C RP, CMP ####[facility] Qhnkdwnefc2498 [place] [phone]. Lizandro Hemphill Globulin (S) [Mass/Vol] 3.2 g/dL Normal [facility] Comment on above: Performed By: #### C RP, CMP ####[facility] Xksmcsdckt485867 [address] [place], [place] [address]Dr. Lizandro Joby Glucose [Mass/Vol] 108 mg/dL Critically high 74-106 [facility] Comment on above: Performed By: #### C RP, CMP ####[facility] Nkttloaxfl4973 [place] [address]Dr. Lizandro Hemphill Potassium [Moles/Vol] 3.5 mmol/L Normal 3.5-5.1 [facility] Comment on above: Performed By: #### C RP, CMP ####[facility] Ddrloydbwm070267 [address] [place], [place] [address]Dr. Lizandro Joby Protein [Mass/Vol] 5.9 g/dL Critically low 6.4-8.2 [facility] Comment on above: Performed By: #### C RP, CMP ####[facility] Klxveiwzsa548667 [address] [place], [place] [address]Dr. Lizandro Hemphill Sodium [Moles/Vol] 141 mmol/L Normal 136-145 [facility] Comment on above: Performed By: #### C RP, CMP ####[facility] Xwwcdwyueq691267 [address] [place], [place] [address]Dr. Lizandro Hemphill Urea nitrogen [Mass/Vol] 9.0 mg/dL Normal 7.0-18.0 [facility] Comment on above: Performed By: #### C RP, CMP ####[facility] Gmkyiogjfw522[address] [place], [place] [address]DrCiro eHmphill Urea nitrogen/Creatinin e [Mass ratio] 11.2 mg/mg Normal [facility] Comment on above: Performed By: #### C RP, CMP ####[facility] Uviurslhfr0232[address] [place], [place] [address]DrCiro Lizandro Hemphill PROTIMEon 10-21-2021 INR Coag (PPP) [Relative time] 2.13 {INR} Normal [facility] Comment on above: Performed By: #### P T ####[facility] Ajhffwyybn9928[address] [place], [place] [address]DrCiro Hemphill INR GUIDELINES SEE BELOW Normal [facility] Comment on above: Result Comment: GUEVARA RED INR: 2.0 - 3.0 CONDITIONS NOT LISTED BELOW 2.5 - 3.5 FOR PROSTHETIC HEART VALVE REPLACEMENT 2.5 - 3.5 RECURRENT THROMBOSIS Performed By: #### P T ####[facility] Whrfcjbsar679467 [address] [place], [place] [address]DrCiro Hemphill PT Coag (PPP) [Time] 21.9 s Critically high 9.0-11.6 [facility] Comment on above: Performed By: #### P T ####[facility] Rccftbrtpn6827[address] [place], [place] [address]DrCiro Hemphill CBC AUTO DIFFon 10-20-2021 BASO # 0.1 103/ul Normal 0.0-0.1 [facility] Comment on above: Performed By: #### C BC ####[facility] Klhregeocg193067 [address] [place], [place] [address]DrCiro Hemphill Basophils/100 WBC (Bld) 1.3 % Normal 0.2-2.0 [facility] Comment on above: Performed By: #### C BC ####[facility] Fyjfrandys064367 [address] [place], [place] [address]DrCiro Hemphill EO # 0.2 103/ul Normal 0.0-0.7 [facility] Comment on above: Performed By: #### C BC ####[facility] Iuortzcuyc292567 [address] [place], [place] [address]DrCiro Hemphill Eosinophils/100 WBC (Bld) 3.3 % Normal 0.9-7.0 [facility] Comment on above: Performed By: #### C BC ####[facility] Olgfbpuojq791567 [address] [place], [place] [address]Dr. Lizandro Hemphill Erythrocyte distribution width (RBC) [Ratio] 17.1 % Critically high 11.0-15.0 [facility] Comment on above: Performed By: #### C BC ####[facility] Tntumyfydp127667 [address] [place], [place] [address]Dr. Lizandro Hemphill Hematocrit (Bld) [Volume fraction] 35.4 % Critically low 36.0-48.0 [facility] Comment on above: Performed By: #### C BC ####[facility] Pxsfgajoub269267 [address] [place], [place] [address]DrCiro Lizandro Joby Hemoglobin (Bld) [Mass/Vol] 11.1 g/dL Critically low 12.0-16.0 [facility] Comment on above: Result Comment: Repe ated to verify result Performed By: #### C BC ####[facility] Swqohgdezq005567 [address] [place], [place] [address]Dr. Lizandro Hemphill IG # 0.01 10e3/ul Normal 0.00-0.03 [facility] Comment on above: Performed By: #### C BC ####[facility] Fjotzfapqg905767 [address] [place], [place] [address]Dr. Lizandro Hemphill IG % 0.2 % Normal 0.0-0.5 [facility] Comment on above: Performed By: #### C BC ####[facility] Xbocrspulh706767 [address] [place], [place] [address]DrCiro Hemphill LYMPH # 1.1 103/ul Critically low 1.2-3.8 [facility] Comment on above: Performed By: #### C BC ####[facility] Gkakbcfjps104[address] [place], [place] [address]DrCiro Hemphill Lymphocytes/100 WBC (Bld) 25.1 % Normal 20.5-60.0 [facility] Comment on above: Performed By: #### C BC ####[facility] Vqzafnowjt834867 [address] [place], [place] [address]Dr. Lizandro Hemphill MANUAL DIFF REQ NO Normal [facility] [place] Comment on above: Performed By: #### C BC ####[facility] Reacpjrhpt4417 [place] [address]Dr. Lizandro Joby MCH (RBC) [Entitic mass] 27.3 pg Normal 26.7-34.0 [facility] Comment on above: Performed By: #### C BC ####[facility] Tbnujsmubs296667 [address] [place], [place] [address]Dr. Lizandro Joby MCHC (RBC) [Mass/Vol] 31.4 g/dL Normal 29.9-35.2 [facility] Comment on above: Performed By: #### C BC ####[facility] Ylghzdlvnx345367 [address] [place], [place] [address]Dr. Lizandro Hemphill MCV (RBC) [Entitic vol] 87.0 fL Normal 81.0-99.0 [facility] Comment on above: Performed By: #### C BC ####[facility] Zdggzmsnng208067 [address] [place], [place] [address]Dr. Lizandro Hemphill MONO # 0.7 103/ul Normal 0.3-0.8 [facility] Comment on above: Performed By: #### C BC ####[facility] Xnqzvncjfh6220[address] [place], [place] [address]Dr. Lizandro Hemphill Monocytes/100 WBC (Bld) 16.0 % Critically high 1.7-12.0 [facility] Comment on above: Performed By: #### C BC ####[facility] Jiyohnrdxs698967 [address] [place], [place] [address]DrCiro Hemphill NEUT # 2.4 103/ul Normal 1.4-6.5 [facility] Comment on above: Performed By: #### C BC ####[facility] Xabmdvbgbv418367 [address] [place], [place] [address]DrCiro Hemphill Neutrophils/100 WBC (Bld) 54.1 % Normal 43.0-75.0 [facility] Comment on above: Performed By: #### C BC ####[facility] Leaabospnb437067 [address] [place], [place] [address]Dr. Lizandro Hemphill Platelet mean volume (Bld) [Entitic vol] 10.4 fL Normal 9.5-13.5 [facility] Comment on above: Performed By: #### C BC ####[facility] Wozzbtzpvf6060 [place] [address]Dr. Lizandro Hemphill PLT 202 103/ul Normal 150-450 [facility] Comment on above: Performed By: #### C BC ####[facility] Kyvivqlsei1241 [place] [address]Dr. Lizandro Hemphill RBC 4.07 106/ul Critically low 4.20-5.40 [facility] [place] Comment on above: Performed By: #### C BC ####[facility] Venftawlke340[address] [place], [place] [address]Dr. Lizandro Hemphill WBC 4.5 103/ul Normal 4.0-11.0 [facility] Comment on above: Performed By: #### C BC ####[facility] Zswpqbkahg963767 [address] [place], [place] [address]Dr. Lizandro Hemphill BASO # 0.1 103/ul Normal 0.0-0.1 [facility] Comment on above: Performed By: #### C BC ####[facility] Qgyumezsfz331267 [address] [place], [place] [address]Dr. Lizandro Joby Basophils/100 WBC (Bld) 1.3 % Normal 0.2-2.0 [facility] Comment on above: Performed By: #### C BC ####[facility] Fvsmrlsvoa65[address] [place], [place] [address]Dr. Lizandro Hemphill EO # 0.1 103/ul Normal 0.0-0.7 [facility] Comment on above: Performed By: #### C BC ####[facility] Khhqdbfkgf2344[address] [place], [place] [address]Dr. Lizandro Joby Eosinophils/100 WBC (Bld) 2.6 % Normal 0.9-7.0 [facility] Comment on above: Performed By: #### C BC ####[facility] Lybrgdcjlo7738[address] [place], [place] [address]Dr. Lizandro Joby Erythrocyte distribution width (RBC) [Ratio] 17.1 % Critically high 11.0-15.0 [facility] Comment on above: Performed By: #### C BC ####[facility] Qqiyulttev2542 [place] [address]Dr. Lizandro Hemphill Hematocrit (Bld) [Volume fraction] 27.6 % Critically low 36.0-48.0 [facility] Comment on above: Performed By: #### C BC ####[facility] [address]ocemyfsfe[address] [place], [place] [address]Dr. Lizandro Hemphill Hemoglobin (Bld) [Mass/Vol] 8.9 g/dL Critically low 12.0-16.0 [facility] Comment on above: Result Comment: joann carrizales notified Performed By: #### C BC ####[facility] Hmxamfyrbr5[address] [place], [place] [address]Dr. Lizandro Hemphill IG # 0.01 10e3/ul Normal 0.00-0.03 [facility] Comment on above: Performed By: #### C BC ####[facility] [id number] [place], [place] [address]Dr. Lizandro Hemphill IG % 0.2 % Normal 0.0-0.5 [facility] Comment on above: Performed By: #### C BC ####[facility] Evwcebyfns75[address] [place], [place] [address]Dr. Lizandro Hemphill LYMPH # 1.8 103/ul Normal 1.2-3.8 [facility] Comment on above: Performed By: #### C BC ####[facility] Qgrndrracx8[address] [place], [place] [address]Dr. Lizandro Hemphill Lymphocytes/100 WBC (Bld) 32.2 % Normal 20.5-60.0 [facility] Comment on above: Performed By: #### C BC ####[facility] Alhihufbxl5757[address] [place], [place] [address]DrCiro Hemphill MANUAL DIFF REQ NO Normal [facility] Comment on above: Performed By: #### C BC ####[facility] Urohfbqpha6627[address] [place], [place] [address]DrCiro Hemphill MCH (RBC) [Entitic mass] 27.8 pg Normal 26.7-34.0 [facility] Comment on above: Performed By: #### C BC ####[facility] [address]ub[address] [place] [address]Dr. Lizandro Hemphill MCHC (RBC) [Mass/Vol] 32.2 g/dL Normal 29.9-35.2 [facility] Comment on above: Performed By: #### C BC ####[facility] P[address]ftaexj[address] [place] [address]Dr. Lizandro Hemphill MCV (RBC) [Entitic vol] 86.3 fL Normal 81.0-99.0 [facility] Comment on above: Performed By: #### C BC ####[facility] Fwrimjvslv26[address] [place], [place] [address]Dr. Lizandro Joby MONO # 0.7 103/ul Normal 0.3-0.8 [facility] Comment on above: Performed By: #### C BC ####[facility] Gwngctiwpo029[address] [place], [place] [address]Dr. Lizandro Joby Monocytes/100 WBC (Bld) 13.0 % Critically high 1.7-12.0 [facility] Comment on above: Performed By: #### C BC ####[facility] Tbdodhylrm17[address] [place], [place] [address]Dr. Lizandro Hemphill NEUT # 2.8 103/ul Normal 1.4-6.5 [facility] Comment on above: Performed By: #### C BC ####[facility] Fdxtqflvon829567 [address] [place], [place] [address]Dr. Shanikaannie Hemphill Neutrophils/100 WBC (Bld) 50.7 % Normal 43.0-75.0 [facility] Comment on above: Performed By: #### C BC ####[facility] Fqdamimgry000767 [address] [place], [place] [address]Dr. Lizandro Hemphill Platelet mean volume (Bld) [Entitic vol] 11.0 fL Normal 9.5-13.5 [facility] Comment on above: Performed By: #### C BC ####[facility] Qecddmnztf[address] [place] [id number]. Lizandro Hemphill PLT 241 103/ul Normal 150-450 [facility] Comment on above: Performed By: #### C BC ####[facility] Qbsknvfsoc97[address] [place] [id number]. Lizandro Hemphill RBC 3.20 106/ul Critically low 4.20-5.40 [facility] Comment on above: Performed By: #### C BC ####[facility] Sxfklwwrpz4517 [place] [id number]. Lizandro Hemphill WBC 5.5 103/ul Normal 4.0-11.0 [facility] Comment on above: Performed By: #### C BC ####[facility] G[address]qrqqehk[address] [place] [address]Dr. Lizandro Hemphill CRPon 10-20-2021 CRP [Mass/Vol] mg/L Normal <=1.0 [facility] Comment on above: Performed By: #### C RP, CMP ####[facility] C[address]ohvhdyrx[address] [place] [address]Dr. Lizandro Joby PROF 14(COMP METB)on 022 Albumin [Mass/Vol] 2.5 g/dL Critically low 3.4-5.0 [facility] Comment on above: Performed By: #### C RP, CMP ####[facility] [address]qobojvhu[address] [place] [address]Dr. Lizandro Hemphill Albumin/Globulin [Mass ratio] 0.9 {ratio} Normal [facility] Comment on above: Performed By: #### C RP, CMP ####[facility] Xhmvjvefdm5116 [place] [address]Dr. Lizandro Joby ALP [Catalytic activity/Vol] 85 U/L Normal 46-116 [facility] Comment on above: Performed By: #### C RP, CMP ####[facility] Vpzgmamira12[address] [place] [address]Dr. Lizandro Hemphill ALT [Catalytic activity/Vol] 26 U/L Normal 14-59 [facility] Comment on above: Performed By: #### C RP, CMP ####[facility] Qslerxxmis3214 [place] [phone]. Lizandro Hemphill Anion gap [Moles/Vol] 10.8 mmol/L Normal [facility] Comment on above: Performed By: #### C RP, CMP ####[facility] Vjxncyjwly06[address] [place], [place] [address]Dr. Lizandro Hemphill AST [Catalytic activity/Vol] 39 U/L Critically high 15-37 [facility] Comment on above: Performed By: #### C RP, CMP ####[facility] Hmcvjbqgpf283967 [address] [place], [place] [address]Dr. Lizandro Hemphill Bilirubin [Mass/Vol] 0.2 mg/dL Normal 0.2-1.0 [facility] Comment on above: Performed By: #### C RP, CMP ####[facility] Rpidagdovf127567 [address] [place], [place] [address]Dr. Lizandro Hemphill Calcium [Mass/Vol] 7.6 mg/dL Critically low 8.5-10.1 [facility] Comment on above: Performed By: #### C RP, CMP ####[facility] Vbitblmljn464867 [address] [place], [place] [address]Dr. Lizandro Hemphill Chloride [Moles/Vol] 111 mmol/L Critically high 98-107 [facility] Comment on above: Performed By: #### C RP, CMP ####[facility] Qcuzslmhaw105[address] [place], [place] [address]Dr. Lizandro Hemphill CO2 [Moles/Vol] 24.6 mmol/L Normal 21.0-32.0 [facility] Comment on above: Performed By: #### C RP, CMP ####[facility] Yvsnbibqqq515467 [address] [place], [place] [address]Dr. Lizandro Hemphill Creatinine [Mass/Vol] 0.72 mg/dL Normal 0.55-1.02 [facility] Comment on above: Performed By: #### C RP, CMP ####[facility] Lslpunmjja305667 [address] [place], [place] [address]Dr. Lizandro Joby EGFR-AF CYMRAES >60 Normal >=60 [facility] Comment on above: Performed By: #### C RP, CMP ####[facility] Xeabquwbcr[address] [place] [address]Dr. Lizandro Hemphill EGFR-NON AF CYMRAES >60 Normal >=60 [facility] Comment on above: Performed By: #### C RP, CMP ####[facility] Laqjqsxrca7237 [place] [address]Dr. Lizandro Hemphill Globulin (S) [Mass/Vol] 2.9 g/dL Normal [facility] Comment on above: Performed By: #### C RP, CMP ####[facility] Myaslqibmd8732[address] [place], [place] [address]Dr. Lizandro Hemphill Glucose [Mass/Vol] 99 mg/dL Normal 74-106 [facility] Comment on above: Performed By: #### C RP, CMP ####[facility] Buovctwyji747367 [address] [place], [place] [address]Dr. Lizandro Hemphill Potassium [Moles/Vol] 3.4 mmol/L Critically low 3.5-5.1 [facility] Comment on above: Performed By: #### C RP, CMP ####[facility] Blvqzodpnk7787[address] [place], [place] [address]Dr. Lizandro Hemphill Protein [Mass/Vol] 5.4 g/dL Critically low 6.4-8.2 [facility] Comment on above: Performed By: #### C RP, CMP ####[facility] Wcgwxoafuj4835[address] [place], [place] [address]Dr. Lizandro Hemphill Sodium [Moles/Vol] 143 mmol/L Normal 136-145 [facility] Comment on above: Performed By: #### C RP, CMP ####[facility] Udwnghrcqd37[address] [place] [address]Dr. Lizandro Hemphill Urea nitrogen [Mass/Vol] 9.0 mg/dL Normal 7.0-18.0 [facility] Comment on above: Performed By: #### C RP, CMP ####[facility] Ffukezuvdh571267 [address] [place], [place] [address]Dr. Lizandro Hemphill Urea nitrogen/Creatinin e [Mass ratio] 12.5 mg/mg Normal [facility] Comment on above: Performed By: #### C RP, CMP ####[facility] [address]ahjqtaj[address] [place] [phone]. Lizandro Hemphill PROTIMEon 10-20-2021 INR Coag (PPP) [Relative time] 1.94 {INR} Normal [facility] Comment on above: Performed By: #### P T ####[facility] Iwnjgdobtt[address] [place] [address]Dr. Lizandro Hemphill INR GUIDELINES SEE BELOW Normal [facility] Comment on above: Result Comment: GUEVARA RED INR: 2.0 - 3.0 CONDITIONS NOT LISTED BELOW 2.5 - 3.5 FOR PROSTHETIC HEART VALVE REPLACEMENT 2.5 - 3.5 RECURRENT THROMBOSIS Performed By: #### P T ####[facility] Cdbkqqscmr8512[address] [place], [place] [address]Dr. Lizandro Hemphill PT Coag (PPP) [Time] 20.1 s Critically high 9.0-11.6 [facility] Comment on above: Performed By: #### P T ####[facility] Rvmijlbkzu779667 [address] [place], [place] [address]Dr. Lizandro Hemphill US NEEL DOP LEG BILon 022 US NEEL DOP LEG CROW Normal [facility] CBC AUTO DIFFon 10-19-2021 BASO # 0.1 103/ul Normal 0.0-0.1 [facility] Comment on above: Performed By: #### C BC ####[facility] Fohffpeyjh354467 [address] [place], [place] [address]Dr. Lizandro Hemphill Basophils/100 WBC (Bld) 1.4 % Normal 0.2-2.0 [facility] Comment on above: Performed By: #### C BC ####[facility] Beftlcmtmj9674[address] [place], [place] [address]DrCiro Hemphill EO # 0.2 103/ul Normal 0.0-0.7 [facility] Comment on above: Performed By: #### C BC ####[facility] Hapdydayjp614467 [address] [place], [place] [address]DrCiro Hemphill Eosinophils/100 WBC (Bld) 3.3 % Normal 0.9-7.0 [facility] Comment on above: Performed By: #### C BC ####[facility] Oykicgkjwg[address] [place] [address]Dr. Lizandro Hemphill Erythrocyte distribution width (RBC) [Ratio] 17.0 % Critically high 11.0-15.0 [facility] Comment on above: Performed By: #### C BC ####[facility] Zzzsnmzaur8116[address] [place], [place] [address]Dr. Lizandro Hemphill Hematocrit (Bld) [Volume fraction] 38.2 % Normal 36.0-48.0 [facility] Comment on above: Performed By: #### C BC ####[facility] Qsmpxdzqwb607367 [address] [place], [place] [address]Dr. Lizandro Hemphill Hemoglobin (Bld) [Mass/Vol] 12.2 g/dL Normal 12.0-16.0 [facility] Comment on above: Performed By: #### C BC ####[facility] Klwqdqlyqx1164[address] [place], [place] [address]Dr. Lizandro Hemphill IG # 0.01 10e3/ul Normal 0.00-0.03 [facility] Comment on above: Performed By: #### C BC ####[facility] Byjwkedcfn092767 [address] [place], [place] [address]Dr. Lizandro Hemphill IG % 0.2 % Normal 0.0-0.5 [facility] Comment on above: Performed By: #### C BC ####[facility] Wplxdynyhn[address] [place], [place] [address]Dr. Lizandro Hemphill LYMPH # 1.7 103/ul Normal 1.2-3.8 [facility] Comment on above: Performed By: #### C BC ####[facility] Mlnafmcxai[address] [place], [place] [address]Dr. Lziandro Hemphill Lymphocytes/100 WBC (Bld) 32.2 % Normal 20.5-60.0 [facility] Comment on above: Performed By: #### C BC ####[facility] Ooiyftthho265367 [address] [place], [place] [address]Dr. Lizandro Hemphill MANUAL DIFF REQ NO Normal [facility] Comment on above: Performed By: #### C BC ####[facility] Grmsmbnkyg[address]22 [place] [phone]. Lizandro Joby MCH (RBC) [Entitic mass] 27.4 pg Normal 26.7-34.0 [facility] Comment on above: Performed By: #### C BC ####[facility] Hfedccihkb9526 [place] [phone]. Lizandro Joby MCHC (RBC) [Mass/Vol] 31.9 g/dL Normal 29.9-35.2 [facility] Comment on above: Performed By: #### C BC ####[facility] Txndjcemst63[address] [place] [address]Dr. Lizandro Hemphill MCV (RBC) [Entitic vol] 85.7 fL Normal 81.0-99.0 [facility] Comment on above: Performed By: #### C BC ####[facility] Hemekmhnrb112[address] [place], [place] [address]Dr. Lizandro Hemphill MONO # 0.6 103/ul Normal 0.3-0.8 [facility] Comment on above: Performed By: #### C BC ####[facility] Qvwlboyzrr4313[address] [place], [place] [address]Dr. Lizandro Hemphill Monocytes/100 WBC (Bld) 12.5 % Critically high 1.7-12.0 [facility] Comment on above: Performed By: #### C BC ####[facility] Ipspqroihy095[address] [place], [place] [address]Dr. Lizandro Hemphill NEUT # 2.6 103/ul Normal 1.4-6.5 [facility] Comment on above: Performed By: #### C BC ####[facility] Cgsvd[address]vte[address] [place], [place] [address]DrCiro Hemphill Neutrophils/100 WBC (Bld) 50.4 % Normal 43.0-75.0 [facility] Comment on above: Performed By: #### C BC ####[facility] Gugsiragjn[address] [place], [place] [address]DrCiro Hemphill Platelet mean volume (Bld) [Entitic vol] 10.4 fL Normal 9.5-13.5 [facility] Comment on above: Performed By: #### C BC ####[facility] Rovvdhglwu9[address] [place] [address]Dr. Lizandro Hemphill PLT 238 103/ul Normal 150-450 [facility] Comment on above: Performed By: #### C BC ####[facility] Jmylobepyg2785 [place] [phone]. Lizandro Hemphill RBC 4.46 106/ul Normal 4.20-5.40 [facility] Comment on above: Performed By: #### C BC ####[facility] Qlketttpkw1811 [place] [address]Dr. Lizandro Hemphill WBC 5.1 103/ul Normal 4.0-11.0 [facility] Comment on above: Performed By: #### C BC ####[facility] Zesjxgbmsv7841 [place] [address]Dr. Lizandro Hemphill CRPon 10-19-2021 CRP [Mass/Vol] mg/L Normal <=1.0 [facility] Comment on above: Performed By: #### C MP, CRP ####[facility] Jossjemekt5[address] [place], [place] [address]Dr. Lizandro Hemphill H PYLORI ANTIBODY IGGon 09-24 H. PYLORI IGG ABS 0.24 Index Value Normal 0.00-0.79 [facility] Comment on above: Result Comment: Nega tive <0.80 Equivocal 0.80 - 0.89 Positive >0.89 Performed By: #### H PYLLC ####[facility] Alydgzsuhh4[address] [place] [address]DrCior Hemphill PROF 14(COMP METB)on 022 Albumin [Mass/Vol] 2.9 g/dL Critically low 3.4-5.0 [facility] Comment on above: Performed By: #### C MP, CRP ####[facility] Tzjufetchl4240 [place] [address]Dr. Lizandro Hemphill Albumin/Globulin [Mass ratio] 0.9 {ratio} Normal [facility] Comment on above: Performed By: #### C MP, CRP ####[facility] Swxtsuljvm9116 [place] [address]Dr. Lizandro Hemphill ALP [Catalytic activity/Vol] 100 U/L Normal 46-116 [facility] Comment on above: Performed By: #### C MP, CRP ####[facility] Qzlaaprahp5620 [place] [address]Dr. Lizandro Hemphill ALT [Catalytic activity/Vol] 24 U/L Normal 14-59 [facility] Comment on above: Performed By: #### C MP, CRP ####[facility] Uuvsprglhj3259 [place] [address]Dr. Shanikaannie Joby Anion gap [Moles/Vol] 11.6 mmol/L Normal [facility] Comment on above: Performed By: #### C MP, CRP ####[facility] Nofultpxcq3913 [place] [address]Dr. Lizandro Hemphill AST [Catalytic activity/Vol] 29 U/L Normal 15-37 [facility] Comment on above: Performed By: #### C MP, CRP ####[facility] Aarqnakbri035[address] [place] [address]Dr. Lizandro Hemphill Bilirubin [Mass/Vol] 0.3 mg/dL Normal 0.2-1.0 [facility] Comment on above: Performed By: #### C MP, CRP ####[facility] Pnsssztjmr8667 [place] [address]Dr. Lizandro Hemphill Calcium [Mass/Vol] 8.0 mg/dL Critically low 8.5-10.1 [facility] Comment on above: Performed By: #### C MP, CRP ####[facility] Gfsdoamifg8715 [place] [address]Dr. Lizandro Hemphill Chloride [Moles/Vol] 107 mmol/L Normal 98-107 [facility] Comment on above: Performed By: #### C MP, CRP ####[facility] Twdujeenwz5188 [place] [address]Dr. Lizandro Hemphill CO2 [Moles/Vol] 22.9 mmol/L Normal 21.0-32.0 [facility] Comment on above: Performed By: #### C MP, CRP ####[facility] Vkvebmqvqu0531 [place] [phone]. Lizandro Hemphill Creatinine [Mass/Vol] 0.65 mg/dL Normal 0.55-1.02 [facility] Comment on above: Performed By: #### C MP, CRP ####[facility] Zscfrogvbp1182 [place] [phone]. Lizandro Hemphill EGFR-AF CYMRAES >60 Normal >=60 [facility] Comment on above: Performed By: #### C MP, CRP ####[facility] Xgdnepddyd8728 [place] [phone]. Lizandro Hemphill EGFR-NON AF CYMRAES >60 Normal >=60 [facility] Comment on above: Performed By: #### C MP, CRP ####[facility] Cmwgyjbmwg0060 [place] [address]Dr. Lizandro Joby Globulin (S) [Mass/Vol] 3.4 g/dL Normal [facility] Comment on above: Performed By: #### C MP, CRP ####[facility] Awybydqvtr6704 [place] [phone]. Lizandro Hemphill Glucose [Mass/Vol] 93 mg/dL Normal 74-106 [facility] Comment on above: Performed By: #### C MP, CRP ####[facility] Ctnvmkaiar3576 [place] [phone]. Lizandro Hemphill Potassium [Moles/Vol] 3.5 mmol/L Normal 3.5-5.1 [facility] Comment on above: Performed By: #### C MP, CRP ####[facility] Brtmbkexan4093 [place] [phone]. Lizandro Hemphill Protein [Mass/Vol] 6.3 g/dL Critically low 6.4-8.2 [facility] Comment on above: Performed By: #### C MP, CRP ####[facility] Yrlygiybgl6582 [place] [address]Dr. Shanikaannie Hemphill Sodium [Moles/Vol] 138 mmol/L Normal 136-145 [facility] Comment on above: Performed By: #### C MP, CRP ####[facility] Hsufcfcofj8286 [place] [address]Dr. Lizandro Hemphill Urea nitrogen [Mass/Vol] 10.0 mg/dL Normal 7.0-18.0 [facility] Comment on above: Performed By: #### C MP, CRP ####[facility] Dhaftzenyr9512 [place] [address]Dr. Lizandro Hemphill Urea nitrogen/Creatinin e [Mass ratio] 15.4 mg/mg Normal [facility] Comment on above: Performed By: #### C MP, CRP ####[facility] Jetplhvwam9[address] [place], [place] [address]Dr. Lizandro Hemphill PROTIMEon 10-19-2021 INR Coag (PPP) [Relative time] 2.03 {INR} Normal [facility] Comment on above: Performed By: #### P T ####[facility] Llwhiaayts022[address] [place], [place] [address]Dr. Lizandro Hemphill INR GUIDELINES SEE BELOW Normal [facility] Comment on above: Result Comment: GUEVARA RED INR: 2.0 - 3.0 CONDITIONS NOT LISTED BELOW 2.5 - 3.5 FOR PROSTHETIC HEART VALVE REPLACEMENT 2.5 - 3.5 RECURRENT THROMBOSIS Performed By: #### P T ####[facility] Dqsxsgnxkt4786[address] [place], [place] [address]Dr. Lizandro Hemphill PT Coag (PPP) [Time] 20.9 s Critically high 9.0-11.6 [facility] Comment on above: Performed By: #### P T ####[facility] Bytmsfijmo[address] [place], [place] [address]Dr. Lizandro Hemphill AMMONIAon 10-18-2021 Ammonia (P) [Moles/Vol] 21 umol/L Normal 11-32 [facility] Comment on above: Performed By: #### A MM ####[facility] Kscunjpfzg[address] [place], [place] [address]Dr. Lizandro Hemphill AMYLASEon 10-18-2021 Amylase [Catalytic activity/Vol] 86 U/L Normal 25-115 [facility] Comment on above: Performed By: #### A MY, CMP, LIPA, BNP, CRP ####[facility] Bihnlkrgia[address] [place] [address]Dr. Lizandro Hemphill BNPon 10-18-2021 Natriuretic peptide B (Bld) [Mass/Vol] 157.0 pg/mL Normal <=900.0 [facility] Comment on above: Performed By: #### A MY, CMP, LIPA, BNP, CRP ####[facility] Ehjkpwdehg5373 [place] [address]Dr. Lizandro Joby CBC AUTO DIFFon 10-18-2021 BASO # 0.1 103/ul Normal 0.0-0.1 [facility] Comment on above: Performed By: #### C BC ####[facility] Lilmfrskht100[address] [place], [place] [address]Dr. Lizandro Hemphill Basophils/100 WBC (Bld) 1.0 % Normal 0.2-2.0 [facility] Comment on above: Performed By: #### C BC ####[facility] Xnpqulkrmx9[address] [place], [place] [address]Dr. Lizandro Hemphill EO # 0.1 103/ul Normal 0.0-0.7 [facility] Comment on above: Performed By: #### C BC ####[facility] Xtaawxuomd04[address] [place], [place] [address]Dr. Lizandro Hemphill Eosinophils/100 WBC (Bld) 1.0 % Normal 0.9-7.0 [facility] Comment on above: Performed By: #### C BC ####[facility] Wukyhohrga27[address] [place] [address]Dr. Lizandro Hemphill Erythrocyte distribution width (RBC) [Ratio] 16.8 % Critically high 11.0-15.0 [facility] Comment on above: Performed By: #### C BC ####[facility] Wwojzdofbv[address] [place], [place] [address]Dr. Lizandro Hemphill Hematocrit (Bld) [Volume fraction] 42.3 % Normal 36.0-48.0 [facility] Comment on above: Performed By: #### C BC ####[facility] Wjgdcrffcq9262 [place] [phone]. Lizandro Hemphill Hemoglobin (Bld) [Mass/Vol] 13.4 g/dL Normal 12.0-16.0 [facility] Comment on above: Performed By: #### C BC ####[facility] Dcireusykg7948 [place] [phone]. Lizandro Hemphill IG # 0.02 10e3/ul Normal 0.00-0.03 [facility] Comment on above: Performed By: #### C BC ####[facility] Qjsyudzown0986 [place] [address]Dr. Lizandro Hemphill IG % 0.3 % Normal 0.0-0.5 [facility] Comment on above: Performed By: #### C BC ####[facility] Lscrlwdgst7920 [place] [address]Dr. Lizandro Hemphill LYMPH # 1.5 103/ul Normal 1.2-3.8 [facility] Comment on above: Performed By: #### C BC ####[facility] [address]ibrsdfbwp[address] [place], [place] [address]Dr. Lizandro Hemphill Lymphocytes/100 WBC (Bld) 19.0 % Critically low 20.5-60.0 [facility] Comment on above: Performed By: #### C BC ####[facility] Sdtwxzmlue[address] [place] [address]Dr. Lizandro Hemphill MANUAL DIFF REQ NO Normal [facility] Comment on above: Performed By: #### C BC ####[facility] Wurzctqmsb4537 [place] [address]Dr. Lizandro Hemphill MCH (RBC) [Entitic mass] 27.2 pg Normal 26.7-34.0 [facility] Comment on above: Performed By: #### C BC ####[facility] [facility] [address]enkf[address] [place], [place] [address]Dr. Lizandro Hemphill MCHC (RBC) [Mass/Vol] 31.7 g/dL Normal 29.9-35.2 [facility] Comment on above: Performed By: #### C BC ####[facility] Kdhudukkxq[address] [place] [id number]. Lizandro Hemphill MCV (RBC) [Entitic vol] 85.8 fL Normal 81.0-99.0 [facility] Comment on above: Performed By: #### C BC ####[facility] Lmbniypvra[address] [place] [phone]. Lizandro Hemphill MONO # 0.8 103/ul Normal 0.3-0.8 [facility] Comment on above: Performed By: #### C BC ####[facility] Wzurwhibaq86[address] [place] [id number]. Lizandro Hemphill Monocytes/100 WBC (Bld) 9.9 % Normal 1.7-12.0 [facility] Comment on above: Performed By: #### C BC ####[facility] Rhisztixdq0948 [place] [phone]. Lizandro Hemphill NEUT # 5.4 103/ul Normal 1.4-6.5 [facility] Comment on above: Performed By: #### C BC ####[facility] Czxujlxugy[address] [place] [phone]. Lizandro Hemphill Neutrophils/100 WBC (Bld) 68.8 % Normal 43.0-75.0 [facility] Comment on above: Performed By: #### C BC ####[facility] Zbxkaybvdq1770 [place] [phone]. Lizandro Hemphill Platelet mean volume (Bld) [Entitic vol] 10.5 fL Normal 9.5-13.5 [facility] Comment on above: Performed By: #### C BC ####[facility] Ljxoblletp22[address] [place] [phone]. Lizandro Hemphill PLT 254 103/ul Normal 150-450 [facility] Comment on above: Performed By: #### C BC ####[facility] Thhkotlfqh7[address] [place] [phone]. Lizandro Hepmhill RBC 4.93 106/ul Normal 4.20-5.40 [facility] Comment on above: Performed By: #### C BC ####[facility] [address]eypss[address] [place], [place] [address]Dr. Lizandro Hemphill WBC 7.8 103/ul Normal 4.0-11.0 [facility] Comment on above: Performed By: #### C BC ####[facility] [address]ixe[address] [place] [address]Dr. Lizandro Hemphill CRPon 10-18-2021 CRP [Mass/Vol] mg/L Normal <=1.0 [facility] Comment on above: Performed By: #### A MY, CMP, LIPA, BNP, CRP ####[facility] Kqjcdqzwkf[address] [place] [phone]. Lizandro Hemphill CT ABD/PELVIS WO CONon 10-18 CT ABD/PELVIS WO CON Normal [facility] CULTURE BLOODon 10-18-2021 Microscopic examination of blood, culture Culture Observations: NO GROWTH AT 5 DAYS. Normal [facility] Comment on above: Performed By: #### B LDCX2 ####[facility] Fdaviwrskz[address] [place] [address]Dr. Lizandro Hemphill Microscopic examination of blood, culture Culture Observations: NO GROWTH AT 5 DAYS. Normal [facility] Comment on above: Performed By: #### B LDCX1 ####[facility] Fwpkewbawt4[address] [place] [address]Dr. Lizandro Hemphill Covid-19 PCR (CVDTB)on 09-24 SARS-CoV-2 (COVID-19) RNA VERITO+probe Ql (Unsp spec) Not detected Normal NOT DETECTED [facility] Comment on above: Result Comment: When [...] for this test is supported by the Editor In Chief of Health and Human Service's declaration that [...] be used). Performed By: #### C VDTBH ####[facility] Jramxhhjky8[address] [place], [place] [address]Dr. Lizandro Hemphill GI PANEL (PCR)on 10-18-2021 Adenovirus F 40/41 Not detected Normal NOT DETECTED [facility] Comment on above: Performed By: #### G IPANEL ####[facility] Oodtvwusgh[address] [place], [place] [address]Dr. Lizandro Hemphill Astrovirus Not detected Normal NOT DETECTED [facility] Comment on above: Performed By: #### G IPANEL ####[facility] Ouwbxoxzse[address] [place], [place] [address]Dr. Lizandro Hemphill C. Diff toxin A/B Not detected Normal NOT DETECTED [facility] Comment on above: Performed By: #### G IPANEL ####[facility] Vad[address]ikfxv[address] [place], [place] [address]Dr. Lizandro Hemphill Campylobacter Not detected Normal NOT DETECTED [facility] Comment on above: Performed By: #### G IPANEL ####[facility] Jxyiqfsxkt[address] [place], [place] [address]Dr. Lizandro Hemphill Cryptosporidium Not detected Normal NOT DETECTED [facility] Comment on above: Performed By: #### G IPANEL ####[facility] Hebxruqcka97[address] [place], [place] [address]Dr. Lizandro Hemphill Cyclos. Cayetanensis Not detected Normal NOT DETECTED [facility] Comment on above: Performed By: #### G IPANEL ####[facility] Edjvtggzvb[address] [place], [place] [address]Dr. Lizandro Hemphill E. Coli O157 Not Applicable Normal Not Applicable [facility] Comment on above: Performed By: #### G IPANEL ####[facility] [address]qiavesvhf[address] [place], [place] [address]Dr. Lizandro Hemphill E. histolytica Not detected Normal NOT DETECTED [facility] Comment on above: Performed By: #### G IPANEL ####[facility] Zfsytgevkz74[address] [place] [address]Dr. Lizandro Hemphill EAEC Not detected Normal NOT DETECTED [facility] Comment on above: Performed By: #### G IPANEL ####[facility] Bisxzgczjg0939 [place] [address]Dr. Lizandro Hemphill EIEC Not detected Normal NOT DETECTED [facility] Comment on above: Performed By: #### G IPANEL ####[facility] Suetdr[address]kd[address] [place], [place] [address]Dr. Lizandro Hemphill EPEC Not detected Normal NOT DETECTED [facility] Comment on above: Performed By: #### G IPANEL ####[facility] Nqrosyoj[address] [place], [place] [address]Dr. Lizandro Hemphill ETEC Not detected Normal NOT DETECTED [facility] Comment on above: Performed By: #### G IPANEL ####[facility] Xlmfywdeyq86[address] [place], [place] [address]Dr. Shanikaannie Joby G. Lamblia Not detected Normal NOT DETECTED [facility] Comment on above: Performed By: #### G IPANEL ####[facility] Dscxogpijd64[address] [place], [place] [address]Dr. Lizandro Hemphill GIPANEL CONTROLS PASSED Normal [facility] Comment on above: Performed By: #### G IPANEL ####[facility] Cqwlzyflvc[address] [place], [place] [address]Dr. Lizandro LEHMANNL CARIE HEADER GI PANEL BACTERIA Normal [facility] Comment on above: Performed By: #### G IPANEL ####[facility] Zfqvvwgosm90[address] [place] [address]Dr. Lizandro LEHMANNLHD ECOLI GI PANEL DIARRHEAGEN IC E.COLI / SHIGELLA Normal [facility] Comment on above: Performed By: #### G IPANEL ####[facility] [address]qarqwzzx7[address] [place], [place] [address]Dr. Lizandro LEHMANNLHD INFO SEE BELOW Normal [facility] Comment on above: Result Comment: EAEC - Enteroaggregative E. Coli EPEC- Enteropathogenic E. Coli ETEC- Enterotoxigenic E. Coli lt/st STEC- Shigella-like toxin-producing E. Coli stx1/stx2 EIEC- Shigella/Enteroinvasive E. Coli Performed By: #### G IPANEL ####[facility] Hzenlmohdk[address] [place], [place] [address]Dr. Shanikaannie Hemphill GIPNLHD PARASITES GI PANEL PARASITES Normal [facility] Comment on above: Performed By: #### G IPANEL ####[facility] Jxcujnzyab[address] [place], [place] [address]Dr. Shanikaannie Hemphill GIPNLHD VIRUS GI PANEL VIRUSES Normal [facility] Comment on above: Performed By: #### G IPANEL ####[facility] Jwubwlqqtc[address] [place], [place] [address]Dr. Shanikaannie Hemphill Norovirus GI/GII Not detected Normal NOT DETECTED [facility] Comment on above: Performed By: #### G IPANEL ####[facility] Sepxcnpbjl2[address] [place], [place] [address]Dr. Lizandro Hemphill P. Shigelloides Not detected Normal NOT DETECTED [facility] Comment on above: Performed By: #### G IPANEL ####[facility] Drhduqtwmg[address] [place], [place] [address]Dr. Lizandro Hemphill Rotavirus A Not detected Normal NOT DETECTED [facility] Comment on above: Performed By: #### G IPANEL ####[facility] Kcwtxaykmb6[address] [place], [place] [address]Dr. Lizandro Hemphill Salmonella Not detected Normal NOT DETECTED [facility] Comment on above: Performed By: #### G IPANEL ####[facility] Wmtpudjegn[address] [place], [place] [address]Dr. Lizandro Hemphill Sapovirus Not detected Normal NOT DETECTED [facility] Comment on above: Performed By: #### G IPANEL ####[facility] Degnkpoxuh4[address] [place], [place] [address]Dr. Lizandro Hemphill STEC Not detected Normal NOT DETECTED [facility] Comment on above: Performed By: #### G IPANEL ####[facility] Zyylxrxxyo[address] [place], [place] [address]Dr. Lizandro Hemphill Vibrio Not detected Normal NOT DETECTED [facility] Comment on above: Performed By: #### G IPANEL ####[facility] Mzgpbmktjb164[address] [place], [place] [address]Dr. Lizandro Hemphill Vibrio Cholera Not detected Normal NOT DETECTED [facility] Comment on above: Performed By: #### G IPANEL ####[facility] Cesineuwkx148[address] [place], [place] [address]Dr. Lizandro Hemphill Y. Enterocolitica Not detected Normal NOT DETECTED [facility] Comment on above: Performed By: #### G IPANEL ####[facility] Wjrndpzrgg[address] [place], [place] [address]Dr. Lizandro Hemphill LACTATE/LACTIC ACIDon 2021 Lactate [Moles/Vol] 1.1 mmol/L Normal 0.4-1.9 [facility] Comment on above: Performed By: #### L ACT ####[facility] Qgeprlyydy[address] [place], [place] [address]Dr. Lizandro Hemphill LIPASEon 10-18-2021 Lipase [Catalytic activity/Vol] 151.0 U/L Normal 73.0-393.0 [facility] Comment on above: Performed By: #### A MY, CMP, LIPA, BNP, CRP ####[facility] [address]idtiowp[address] [place], [place] [address]Dr. Lizandro Hemphill PROF 14(COMP METB)on 022 Albumin [Mass/Vol] 3.7 g/dL Normal 3.4-5.0 [facility] Comment on above: Performed By: #### A MY, CMP, LIPA, BNP, CRP ####[facility] Lqsvwnuwat[address] [place], [place] [address]Dr. Lizandro Hemphill Albumin/Globulin [Mass ratio] 0.9 {ratio} Normal [facility] Comment on above: Performed By: #### A MY, CMP, LIPA, BNP, CRP ####[facility] Bnuwwmxlap[address] [place], [place] [address]Dr. Lizandro Hemphill ALP [Catalytic activity/Vol] 114 U/L Normal 46-116 [facility] Comment on above: Performed By: #### A MY, CMP, LIPA, BNP, CRP ####[facility] [address]irn[address] [place] [address]Dr. Lizandro Hemphill ALT [Catalytic activity/Vol] 26 U/L Normal 14-59 [facility] Comment on above: Performed By: #### A MY, CMP, LIPA, BNP, CRP ####[facility] Osg[address]untf[address] [place] [address]Dr. Lizandro Hemphill Anion gap [Moles/Vol] 13.7 mmol/L Normal [facility] Comment on above: Performed By: #### A MY, CMP, LIPA, BNP, CRP ####[facility] [address]ldpf[address] [place], [place] [address]Dr. Lizandro Hemphill AST [Catalytic activity/Vol] 30 U/L Normal 15-37 [facility] Comment on above: Performed By: #### A MY, CMP, LIPA, BNP, CRP ####[facility] Ytvdpqakkt[address] [place], [place] [address]Dr. Lizandro Hemphill Bilirubin [Mass/Vol] 0.3 mg/dL Normal 0.2-1.0 [facility] Comment on above: Performed By: #### A MY, CMP, LIPA, BNP, CRP ####[facility] Apcduythnt64[address] [place] [address]Dr. Lizandro Hemphill Calcium [Mass/Vol] 9.1 mg/dL Normal 8.5-10.1 [facility] Comment on above: Performed By: #### A MY, CMP, LIPA, BNP, CRP ####[facility] Znhvzfnhob9[address] [place] [address]Dr. Lizandro Hemphill Chloride [Moles/Vol] 102 mmol/L Normal 98-107 [facility] Comment on above: Performed By: #### A MY, CMP, LIPA, BNP, CRP ####[facility] Ipskgjbnmx2724 [place] [address]Dr. Lizandro Hemphill CO2 [Moles/Vol] 26.9 mmol/L Normal 21.0-32.0 [facility] Comment on above: Performed By: #### A MY, CMP, LIPA, BNP, CRP ####[facility] Uhkwqkrgqd044[address] [place] [address]Dr. Lizandro Hemphill Creatinine [Mass/Vol] 0.79 mg/dL Normal 0.55-1.02 [facility] Comment on above: Performed By: #### A MY, CMP, LIPA, BNP, CRP ####[facility] Obtznykdxe[address] [place], [place] [address]Dr. Lizandro Hemphill EGFR-AF CYMRAES >60 Normal >=60 [facility] Comment on above: Performed By: #### A MY, CMP, LIPA, BNP, CRP ####[facility] G[address]umzjlkb[address] [place], [place] [address]Dr. Lizandro Hemphill EGFR-NON AF CYMRAES >60 Normal >=60 [facility] Comment on above: Performed By: #### A MY, CMP, LIPA, BNP, CRP ####[facility] Zeukdvaryy[address] [place], [place] [address]Dr. Lizandro Hemphill Globulin (S) [Mass/Vol] 4.0 g/dL Normal [facility] Comment on above: Performed By: #### A MY, CMP, LIPA, BNP, CRP ####[facility] Iulyufkyzl[address] [place], [place] [address]Dr. Shanikaannie Hemphill Glucose [Mass/Vol] 96 mg/dL Normal 74-106 [facility] Comment on above: Performed By: #### A MY, CMP, LIPA, BNP, CRP ####[facility] Jtwevndgrf[address] [place] [address]Dr. Lizandro Hemphill Potassium [Moles/Vol] 3.6 mmol/L Normal 3.5-5.1 [facility] Comment on above: Performed By: #### A MY, CMP, LIPA, BNP, CRP ####[facility] Lefwukcizp[address] [place] [address]Dr. Shanikaannie Hemphill Protein [Mass/Vol] 7.7 g/dL Normal 6.4-8.2 [facility] Comment on above: Performed By: #### A MY, CMP, LIPA, BNP, CRP ####[facility] Qcfwvhcnjc1255 [place] [address]Dr. Lizandro Hemphill Sodium [Moles/Vol] 139 mmol/L Normal 136-145 [facility] Comment on above: Performed By: #### A MY, CMP, LIPA, BNP, CRP ####[facility] Rjxksokord37[address] [place] [address]Dr. Lizandro Hemphill Urea nitrogen [Mass/Vol] 15.0 mg/dL Normal 7.0-18.0 [facility] Comment on above: Performed By: #### A MY, CMP, LIPA, BNP, CRP ####[facility] Srdubnlmqx0816 [place] [address]Dr. Lizandro Hemphill Urea nitrogen/Creatinin e [Mass ratio] 19.0 mg/mg Normal [facility] Comment on above: Performed By: #### A MY, CMP, LIPA, BNP, CRP ####[facility] [address]duxrceyhw[address] [place], [place] [address]Dr. Lizandro Hemphill PROTIMEon 10-18-2021 INR Coag (PPP) [Relative time] 1.66 {INR} Normal [facility] Comment on above: Performed By: #### P T, PTT ####[facility] Kavcoysmfa[address] [place], [place] [address]Dr. Lizandro Hemphill INR GUIDELINES SEE BELOW Normal [facility] Comment on above: Result Comment: GUEVARA RED INR: 2.0 - 3.0 CONDITIONS NOT LISTED BELOW 2.5 - 3.5 FOR PROSTHETIC HEART VALVE REPLACEMENT 2.5 - 3.5 RECURRENT THROMBOSIS Performed By: #### P T, PTT ####[facility] [address]zfgyuzzgt[address] [place], [place] [address]Dr. Lizandro Hemphill PT Coag (PPP) [Time] 17.3 s Critically high 9.0-11.6 [facility] Comment on above: Performed By: #### P T, PTT ####[facility] Zelseswrbf[address] [place], [place] [address]Dr. Lizandro Hemphill PTTon 10-18-2021 aPTT Coag (Bld) [Time] 38.3 s Critically high 22.3-36.2 [facility] Comment on above: Performed By: #### P T, PTT ####[facility] Tultvkxxfr[address] [place], [place] [address]Dr. Lizandro Hemphill UA RANDOM W/MICROSCOPICon BACTERIA TRACE Abnormal NONE SEEN [facility] Comment on above: Performed By: #### U AMIC ####[facility] Gibvnnzkeu[address] [place], [place] [address]Dr. Lizandro Hemphill Bilirubin Ql (U) Negative Normal NEGATIVE [facility] Comment on above: Performed By: #### U AMIC ####[facility] Tugtkgwqeq670[address] [place], [place] [address]Dr. Lizandro Hemphill CAST NONE SEEN Normal NONE SEEN [facility] Comment on above: Performed By: #### U AMIC ####[facility] Njcavmhyrz[address] [place], [place] [address]Dr. Lizandro Hemphill Clarity (U) CLEAR Normal CLEAR [facility] Comment on above: Performed By: #### U AMIC ####[facility] Gfhijeudio[address] [place], [place] [address]Dr. Lizandro Hemphill Color (U) LT. YELLOW Normal YELLOW [facility] Comment on above: Performed By: #### U AMIC ####[facility] Obsoeeyphw366[address] [place], [place] [address]Dr. Lizandro Hemphill Crystals LM Nom (Urine sed) NONE SEEN Normal NONE SEEN [facility] Comment on above: Performed By: #### U AMIC ####[facility] Xugsoudgxg36[address] [place], [place] [address]Dr. Lizandro Hemphill Epithelial cells LM Ql (Urine sed) RARE Normal NONE SEEN /RARE [facility] Comment on above: Performed By: #### U AMIC ####[facility] Oovwhggqoh8[address] [place], [place] [address]Dr. Lizandro Hemphill Glucose Ql (U) Negative Normal NEGATIVE [facility] Comment on above: Performed By: #### U AMIC ####[facility] Yihkkbjvfv6869[address] [place], [place] [address]Dr. Lizandro Hemphill Hemoglobin Ql (U) Negative Normal NEGATIVE [facility] Comment on above: Performed By: #### U AMIC ####[facility] Dsarhbvyzo7515 [place] [address]Dr. Lizandro Hemphill Ketones Ql (U) Negative Normal NEGATIVE [facility] Comment on above: Performed By: #### U AMIC ####[facility] Ededqgwhkl13[address] [place], [place] [address]Dr. Lizandro Joby LEUKOCYTES Negative Normal NEGATIVE [facility] Comment on above: Performed By: #### U AMIC ####[facility] Qgmzteimjy8320 [place] [address]Dr. Lizandro Hemphill MUCOUS NONE SEEN Normal NONE SEEN [facility] Comment on above: Performed By: #### U AMIC ####[facility] Fcvpopnlqd[address] [place], [place] [address]Dr. Lizandro Hemphill Nitrite Ql (U) Negative Normal NEGATIVE [facility] Comment on above: Performed By: #### U AMIC ####[facility] Wwsutpadwp108[address] [place], [place] [address]Dr. Lizandro Hemphill pH (U) 6.5 [pH] Normal 5-9 [facility] Comment on above: Performed By: #### U AMIC ####[facility] Tacvbrsjcr216[address] [place], [place] [address]Dr. Lizandro Hemphill RBC NONE SEEN Abnormal 0-2 [facility] Comment on above: Performed By: #### U AMIC ####[facility] Xquaajelho25[address] [place], [place] [address]Dr. Lizandro Hemphill SPEC GRAVITY <=1.005 Abnormal 1.005-<=1.025 [facility] Comment on above: Performed By: #### U AMIC ####[facility] Rhwsfrdcwe[address] [place], [place] [address]Dr. Lizandro Hemphill UA PROTEIN Negative Normal NEGATIVE/ TRACE [facility] Comment on above: Performed By: #### U AMIC ####[facility] Dytjsaunzn[address] [place], [place] [address]Dr. Lizandro Hemphill Urobilinogen Qn (U) 0.2 {Cassy'U}/dL Normal 0.2 - 1.0 [facility] Comment on above: Performed By: #### U AMIC ####[facility] [address]so[address]ms[address]wh[address] [place], [place] [address]PfCiro Hemphill WBC 0-2 Abnormal NONE SEEN [facility] Comment on above: Performed By: #### U AMIC ####[facility] [address]qyz[address]xp48[address] [place], [place] [address]Bc. Lizandro Hemphill Ambulatory Visit Summaryon 0 09-27-2021 [...] tachycardia Varicose veins of legs Normal [facility] PROTIMEon 09-20-2021 INR Coag (PPP) [Relative time] {INR} Normal [facility] Comment on above: Performed By: #### P T ####[facility] Imv[address]wmexw[address] [place] [id number] Lizandro Hemphill INR GUIDELINES SEE BELOW Normal [facility] Comment on above: Result Comment: GUEVARA RED INR: 2.0 - 3.0 CONDITIONS NOT LISTED BELOW 2.5 - 3.5 FOR PROSTHETIC HEART VALVE REPLACEMENT 2.5 - 3.5 RECURRENT THROMBOSIS Performed By: #### P T ####[facility] Vqmprptvyu036[address] [place] [address]DrCiro Hemphill PT Coag (PPP) [Time] 9.7 s Normal 9.0-11.6 [facility] Comment on above: Performed By: #### P T ####[facility] Iuxnxkcphd6885 [place] [address]DrCiro Hepmhill Covid-19 PCR (CVDTB)on 08-25 SARS-CoV-2 (COVID-19) RNA VERITO+probe Ql (Unsp spec) Not detected Normal NOT DETECTED [facility] Comment on above: Result Comment: When [...] for this test is supported by the Editor In Chief of Health and Human Service's declaration that [...] be used). Performed By: #### C VDTBH ####[facility] [address]ajx[address] [place], [place] [address]Iy. Lizandro Hemphill Physician Referralon 022 Physician Referral [phone] [id number]:[id number] Normal [facility] GI Letteron 12-31-2017 GI Letter [facility] Fax:Division of [phone] gy Clinic Phone:[facility] [phone] [facility] Fax:[place] [phone] [place], [place] [address]NA: Patient Name: Feroz Power MR #: [id number] Date of : 1960 Date of Service:12/28/2017Tatiana Murphy Jr, D.O.[phone]. Murphy:I had the pleasure of seeing [...] M.D.Date Trans: 12/30/2017 04:04 A/mmoRevised: 12/31/2017 07:52 A/paCcyril/rachelDN_JN:[id number]: Ezekiel Deras M.D. [address] [facility] [place] [address] Tatiana Murphy Jr, D.O. [address] [address] [facility] Operative Reporton 8 Operative Report MR#: [id number] [facility] Pt. 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 [facility] [address] [facility] [place] [address] [facility] POC GLUCOSE LABon 09-17-2017 Glucose mass conc 74 mg/dL Normal 70-[address] [facility] Comment on above: Performed By: #### 8 [id number] ####[facility], [place] [address] [place] [address] Vital Signs Date Time Vital Sign Value Performing Clinician Ghazal cardona 09-27-2021 15:12-0400 Blood Pressure Location [facility] [place] 09-27-2021 15:12-0400 Diastolic blood pressure 76 mm[Hg] Isael NILL [facility] [place] 09-27-2021 15:12-0400 Heart rate 68 /min Isael NILL [facility] [place] 09-27-2021 15:12-0400 Respiratory rate 16 /min Isael NILL [facility] [place] 09-27-2021 15:12-0400 Systolic blood pressure 116 mm[Hg] Isael NILL [facility] Encounters Encounter Date Encounter Type Care Provider Facility Start: 09-29-2022 End: 09-30-2022 ambulatory [facility] Start: 08-09-2022 End: 08-10-[address] EZEKIEL DERAS . Facility: Start: 07-30-2022 End: 07-31-2022 Evaluation and management of inpatient DR EZEKIEL DERAS . Facility:[facility] Start: 07-24-2022 End: 08-23-2022 ambulatory SHAIKH Alistair SINGH Facility:[facility] Start: 07-13-2022 ambulatory NARFREDRICK BRUNOMIPATHY . Facility:[facility] Start: 06-27-2022 End: 06-28-2022 Evaluation and management of inpatient DR EZEKIEL DERAS . Facility:[facility] Start: 06-27-2022 ambulatory NARFREDRICK BRUNOMIPATHY . Facility:[facility] Start: 06-26-2022 End: 07-21-2022 ambulatory [...] SINGH Facility:[facility] Start: 04-13-2022 End: 04-13-2022 ambulatory MARLNO ARREOLA Facility:[facility] Start: 03-27-2022 End: 04-26-2022 ambulatory [...] laboratory examination DR FELIX MALCOLM . [facility] Start: 01-17-2022 End: 01-17-[address] [...] laboratory examination DR EZEKIEL DERAS . [facility] Start: 10-25-2021 End: 10-25-[address] [...] 12-28-2017 End: 12-29-2017 Patient encounter CHRISTOPHER VALENCIA Facility:[facility] Start: 10-25-2017 End: 11-24-2017 Patient encounter MICHAEL LANDA Facility:[facility] Start: 09-17-2017 End: 09-18-2017 Patient encounter MICHAEL HERNÁNDEZ Facility:[facility] Procedures Date Procedure Procedure Detail Performing Clinician [...] FOREARM TENDON/MUSCLE ABDULAZIM M USTAPHA Appendectomy Isael TheCommentorL Cervical arthrodesis Isael NILL Comment on above: C5-C8 Cholecystectomy Isael NILL History of operative procedure on knee Isael NILL Structure of ligamen t of ankle joint (body structure) Isael NILL Total abdominal hyst erectomy with bilateral salpingo-oophorectomy Isael NILL Payers Date Payer Category Payer Department of [facility] [address] ( and others) [id number] 1960 Unknown [id number] 2.16.840.1.799236.3.579.2.647 1961 Unknown [id number] 2.16.840.1.246270.3.579.2.647 1961 Unknown [id number] 2.16.840.1.821280.3.579.2.647 1961 Unknown [id number] 2.16.840.1.154500.3.579.2.593 1961 Unknown [id number] 2.16.840.1.812585.3.579.2.593 1961 Unknown [id number] 2.16.840.1.980343.3.579.2.593 1961 Unknown [id number] 2.16.840.1.980085.3.579.2.593 1961 Unknown [id number] 2.16.840.1.679550.3.579.2.593 1961 Unknown [id number] 2.16.840.1.586561.3.579.2.593 1961 Unknown [id number] 2.16.840.1.258791.3.579.2.593 1961 Unknown [id number] 2.16.840.1.197506.3.579.2.593 1961 Unknown [id number] 2.16.840.1.221654.3.579.2.593 1961 Unknown [id number] 2.16.840.1.672218.3.579.2.593 1961 Unknown [id number] 2.16.840.1.156500.3.579.2.593 1961 Unknown [id number] 2.16.840.1.428050.3.579.2.593 1961 Unknown [id number] 2.16.840.1.840716.3.579.2.593 1961 Unknown [id number] 2.16.840.1.508055.3.579.2.593 1961 Unknown [id number] 2.16.840.1.183693.3.579.2.593 1961 Unknown [id number] 2.16.840.1.579847.3.579.2.593 1961 Unknown [id number] 2.16.840.1.341946.3.579.2.593 1961 Unknown [id number] 2.16.840.1.603258.3.579.2.593 1961 Unknown [id number] 2.16.840.1.210330.3.579.2.593 1961 Unknown [id number] 2.16.840.1.381332.3.579.2.593 1961 Unknown [id number] 2.16.840.1.457582.3.579.2.593 1961 Unknown [id number] 2.16.840.1.438725.3.579.2.593 1961 Unknown [id number] 2.16.840.1.444219.3.579.2.593 1961 Unknown [id number] 2.16.840.1.480189.3.579.2.593 1961 Unknown [id number] 2.16.840.1.249273.3.579.2.593 1961 Unknown [id number] 2.16.840.1.911496.3.579.2.593 1961 Unknown [id number] 2.16.840.1.925208.3.579.2.593 1961 Unknown [id number] 2.16.840.1.804454.3.579.2.593 1961 Unknown [id number] 2.16.840.1.370283.3.579.2.593 1961 Unknown [id number] 2.16.840.1.455390.3.579.2.593 1961 Unknown [id number] 2.16.840.1.243250.3.579.2.593 1961 Unknown [id number] 2.16.840.1.527143.3.579.2.593 1961 Unknown [id number] 2.16.840.1.597260.3.579.2.593 1961 Unknown [id number] 2.16.840.1.020550.3.579.2.593 1961 Unknown [id number] 2.16.840.1.976993.3.579.2.593 1961 Unknown [id number] 2.16.840.1.033545.3.579.2.593 1961 Unknown [id number] 2.16.840.1.341037.3.579.2.593 1961 Unknown [id number] 2.16.840.1.183783.3.579.2.593 1961 Unknown [id number] 2.16.840.1.117222.3.579.2.593 1961 Unknown [id number] 2.16.840.1.735415.3.579.2.593 1961 Unknown [id number] 2.16.840.1.565201.3.579.2.593 1961 Unknown [id number] 2.16.840.1.208676.3.579.2.593 1961 Unknown [id number] 2.16.840.1.606562.3.579.2.593 1961 Unknown [id number] 2.16.840.1.340385.3.579.2.593 1961 Unknown [id number] 2.16.840.1.427303.3.579.2.593 1961 Unknown [id number] 2.16.840.1.425268.3.579.2.593 1958 [employer] [place] [employer] ( and others) [id number] 1958 Medicare [id number] 1958 Self-pay [id number] Social History Date Type Detail Facility Start: 09-27-2021 Tobacco smoking status Never s moked tobacco (finding) [facility] [place] Tobacco smoking status Never Gener al Surgery [facility] Sex Assigned At Female Genera l Surgery [facility] Functional Status Date Assessment Result Facility 09-27-2021 Functional Status N/A [facility] Clinical Note 09-29-2022 Note Date & Type Note Facility 09-29-2022 Note Called pt to schedul e consultation for Cervical Stenosis. Pt states that she was seen in the ED on 09/27 and is scheduled for surgery on 10/[address] Valenzuela. [facility] Consultation note 06-13-2022 Note Date & Type Note Facility 06-13-2022 Note [facility] Consultation note 01-05-2022 Note Date & Type Note Facility 01-05-2022 Note [facility] Consultation note 11-17-2021 Note Date [...] (at bedtime), PRN (more content not included)... [facility] Comment on above: Result Comment: Elec tronically Signed By: KARYN COE, Isael Silverman\Date and Time Signed: 10/10/21 10:36 EDT Consultation note 10-06-2021 Note Date & Type Note Facility 10-06-2021 [facility] note Note Date & Type Note Facility Evaluation + Plan note No data available for this section [facility] [place] [facility] Discharge instructions Note Date & Type Note Facility Hospital Discharge instructions No data available for this section [facility] [place] Progress note Note Date & Type Note Facility Progress note No data available for this section [facility] [place] Summary Purpose Family History No Family History Records FoundNo Family History Records FoundNo Family History Records FoundNo Family History Records Found Advance Directives No Advanced Directives Records FoundNo Advanced Directives Records FoundNo Advanced Directives Records FoundNo Advanced Directives Records Found Procedure Findings Note MR#: [id number] Pt. Name: [employer] [facility] Date: 12/28/2017 [...] and content) DATE CREATED AUTHOR 01/27/2018 [facility] [place] DATE CREATED AUTHOR AUTHOR'S ORGANIZ ATION 10/14/2021 [facility] DATE CREATED AUTHOR AUTHOR'S ORGANIZ ATION 09/01/2022 [facility] DATE CREATED AUTHOR AUTHOR'S ORGANIZ ATION 10/27/2022 [facility] Care Team (unrecognized sect ion and content) Personnel Name: Ezekiel Deras MD Address: [address] [place] [address] FOR RECORDS PERTAINING TO PATIENTS WHO ARE [...] BE BASED ON THE PRIMARY CLINICAL RECORDS. [facility]. provides no warranty or guarantee of the accuracy or completeness of information in this document.
[2023-06-01] MEDS: 0.9 % SODIUM CHLORIDE 1,000 ML 999 ML IV (14:19)
[2023-06-01] MEDS: ONDANSETRON PF 4 MG/2 ML VIAL IV (14:20)
[2023-06-01 14:27] VITALS: BP 135/90; PULSE 94; RESP 20; O2SAT 100
[2023-06-01 14:33] LABS: Basophils Percent Auto 0.7 % (0.2-2.0); Eosinophils Percent Auto 0.5 % (0.9-7.0); Hematocrit 38.9 % (36.0-48.0); Hemoglobin 12.4 g/dL (12.0-16.0); Immature Granulocytes Abs Auto 0.01 10^3/uL (0.00-0.03); Immature Granulocytes Pct Auto 0.2 % (0.0-0.5); Lymphocytes Absolute Auto 1.2 10^3/uL (1.2-3.8); Lymphocytes Percent Auto 22.2 % (20.5-60.0); Mean Corpuscular HGB Conc 31.9 g/dL (29.9-35.2); Mean Corpuscular Hemoglobin 30.8 pg (26.7-34.0); Mean Corpuscular Volume 96.8 fL (81.0-99.0); Mean Platelet Volume 10.4 fL (9.5-13.5); Monocytes Absolute Auto 0.7 10^3/uL (0.3-0.8); Monocytes Percent Auto 13.4 % (1.7-12.0); Neutrophils Absolute Auto 3.5 10^3/uL (1.4-6.5); Platelet Count 277 10^3/uL (150-450); Red Blood Count 4.02 10^6/uL (4.20-5.40); Red Cell Distribution Width 14.4 % (11.0-15.0); White Blood Count 5.5 10^3/uL (4.0-11.0)
--- NOTE | 2023-06-01 14:41 | XR_ITS ---
The [address] [address] Patient Name: FEROZ DUTTA MRN: [id number] date: 1960 Sex: F Assigned Patient Location: ER Current Patient Location: ER Accession/Order Number: [id number] Exam Date: 06/01/2023 14:29 Report Date: 06/01/2023 14:59 At the request of: RENATO DOMINGUEZ Procedure: XR acute abdomen series EXAM: XR acute abdomen series HISTORY: abd pain COMPARISON: Acute abdominal series dated 01/17/2023 TECHNIQUE: PA view of the chest was obtained. Supine and upright views of the abdomen were obtained. FINDINGS: Heart and mediastinal contours are unremarkable in appearance. No acute infiltrate or consolidations are seen. No obvious pneumothorax. Stabilizing opacities in the cervical region. There is are seen in large and small bowel loops. Mildly dilated small bowel loops on the left which are nonspecific, correlate for mild ileus or gastroenteritis. No obvious bowel obstruction. No evidence of free intraperitoneal air. Retained feces in the colon without significantly increased fecal load. Inferior vena cava filter is noted postoperative clips on the right. Findings compatible with iliac vein stent grafts. Mild degenerative changes in the lumbar spine. XR/XR acute abdomen series IMPRESSION: No acute process seen in the chest. Consider mild ileus or gastroenteritis in the abdomen. No obvious bowel obstruction or free intraperitoneal air. Electronically authenticated by: LAMAR ANTHONY Date: 06/01/2023 14:59
[2023-06-01 14:42] LABS: Alanine Aminotransferase 73 U/L (14-59); Albumin Globulin Ratio 0.8; Albumin Level 3.4 g/dL (3.4-5.0); Alkaline Phosphatase 181 U/L (46-116); Anion Gap 14.6; Aspartate Amino Transferase 54 U/L (15-37); BUN Creatinine Ratio 26.4; Bilirubin Total 0.3 mg/dL (0.2-1.0); Calcium 8.8 mg/dL (8.5-10.1); Chloride 103 mmol/L (98-107); Estimated GFR (African America >60 (>=60); Estimated GFR (Non-African Ame >60 (>=60); Globulin 4.2 g/dL; Glucose 96 mg/dL (74-106); Potassium 3.6 mmol/L (3.5-5.1); Sodium 139 mmol/L (136-145); Total Protein 7.6 g/dL (6.4-8.2)
--- NOTE | 2023-06-01 15:05 | CT_ITS ---
The [address] [address] Patient Name: FEROZ DUTTA MRN: [id number] date: 1960 Sex: F Assigned Patient Location: ER Current Patient Location: ER Accession/Order Number: [id number] Exam Date: 06/01/2023 15:27 Report Date: 06/01/2023 15:44 At the request of: RENATO DOMINGUEZ Procedure: CT abdomen pelvis wo con EXAMINATION: CT abdomen pelvis wo con, 06/01/2023 12:27 PM PST HISTORY: right sided abd pain, ?right renal mass COMPARISON: None. TECHNIQUE: CT scan of the abdomen and pelvis was performed without IV contrast. CT dose reduction technique was used, including Automated Exposure Control. FINDINGS: Lung: No significant finding. Liver: No significant finding. Gallbladder: Absent. Spleen: No significant finding. Pancreas: No significant finding. Adrenal glands: No significant finding. Kidneys, ureters and bladder: 3 mm nonobstructive left renal calculus. Bladder is unremarkable. Bowel: No evidence of bowel obstruction. No focal inflammatory changes. Colonic diverticulosis without diverticulitis. Peritoneum/retroperitoneum: No significant finding. Lymph nodes: No significant finding. Vessels: Infrarenal IVC filter. Bilateral iliac vein stents. Body wall: No significant finding. Reproductive: No significant finding. Bones: No significant finding. CT/CT abdomen pelvis wo con IMPRESSION: No acute findings. 3 mm nonobstructive left renal calculus. Electronically authenticated by: JAX GAYTAN Date: 06/01/2023 15:44
[2023-06-01 15:15] LABS: Bilirubin Urine NEGATIVE (NEGATIVE); Blood Urine NEGATIVE (NEGATIVE); Clarity Urine CLEAR (CLEAR); Color Urine YELLOW (YELLOW); Glucose Urine UA NEGATIVE (NEGATIVE); Ketones Urine 15 mg/dL (NEGATIVE); Leukocyte Esterase Urine NEGATIVE (NEGATIVE); Nitrite Urine NEGATIVE (NEGATIVE); Protein Urine NEGATIVE (NEG/TRACE); Specific Gravity Urine 1.025 (1.005-1.025); Urobilinogen Urine 0.2 EU/dL (0.2-1.0); pH Urine 5.5 (5.0-9.0)
[2023-06-01 15:17] LABS: Urine Microscopic Indicated NO
[2023-06-01] MEDS: KETOROLAC TROMETHAMINE 30 MG/ML VIAL IVP (15:18)
[2023-06-01] MEDS: MORPHINE SULFATE 2 MG/ML SYRINGE IV (15:18)
[2023-06-01 15:27] VITALS: BP 141/92
[2023-06-01 15:48] VITALS: PULSE 88; RESP 16; O2SAT 98
[2023-06-01 16:04] VITALS: BP 150/92; PULSE 90; RESP 16; O2SAT 99
== END 2023-06-01 16:46 | disposition home or self-care (01) ==
PROVIDERS: Emergency Provider Emergency Medicine; PCP Family Medicine
DX: R10.9 Unspecified abdominal pain (principal); M79.7 Fibromyalgia; D68.59 Other primary thrombophilia; Z86.73 Personal history of transient ischemic attack (TIA), and cerebral infarction without residual deficits; Z79.899 Other long term (current) drug therapy; Z79.01 Long term (current) use of anticoagulants; Z95.828 Presence of other vascular implants and grafts; Z98.890 Other specified postprocedural states; Z90.710 Acquired absence of both cervix and uterus; Z90.49 Acquired absence of other specified parts of digestive tract
CPT/HCPCS: 36415; 74022; 74176; 80053; 81003; 83690; 85025; 96374; 96375; 99285

== ENCOUNTER 2023-08-02 12:59 | Outpatient (OUT) | payer MEDICARE, OTHER, SELFPAY ==
--- NOTE | 2023-08-02 13:06 | US_ITS ---
[place] [id number] Patient Name: FEROZ DUTTA MRN: [id number] date: 1960 Sex: F Assigned Patient Location: [facility] Current Patient Location: Accession/Order Number: [id number] Exam Date: 08/02/2023 13:10 Report Date: 08/03/2023 08:12 At the request of: EZEKIEL CHENEY Procedure: US arterial duplex UE BI EXAMINATION: US arterial duplex UE BI HISTORY: Arm Edema R60.0 COMPARISON: No relevant comparison available. TECHNIQUE: Color duplex Doppler ultrasound evaluation analysis was performed in the usual manner. FINDINGS: LEFT UPPER EXTREMITY ARTERIAL Subclavian Proximal PSV: 90.8 cm/s Subclavian Proximal EDV: 0.0 cm/s Axillary PSV: 82.7 cm/s Axillary EDV: 0.0 cm/s Brachial Proximal PSV: 69.8 cm/s Proximal EDV: 0.0 cm/s Distal PSV: 48.8 cm/s Distal EDV: 0.0 cm/s Radial Proximal PSV: 22.9 cm/s Proximal PSV: 0.0 cm/s Distal PSV: 22.9 cm/s Distal EDV: 0.0 cm/s Ulnar Proximal PSV: 45.5 cm/s Proximal PSV: 0.0 cm/s Distal PSV: 21.1 cm/s Distal EDV: 0.0 cm/s RIGHT UPPER EXTREMITY ARTERIAL Subclavian Proximal PSV: 91 cm/s Subclavian Proximal EDV: 0 cm/s Axillary PSV: 83 cm/s Axillary EDV: 0 cm/s Brachial Proximal PSV: 70 cm/s Proximal EDV: 0 cm/s Distal PSV: 49 cm/s Distal EDV: 0 cm/s Radial Proximal PSV:23 cm/s Proximal EDV: 0 cm/s Distal PSV: 23 cm/s Distal EDV: 0 cm/s Ulnar Proximal PSV: 46 cm/s Proximal EDV: 0 cm/s Distal PSV: 21 cm/s Distal EDV: 0 cm/s WAVE FORM: Abnormal biphasic waveform throughout both upper extremities. VESSEL LUMEN: Narrowed without appreciable significant atherosclerotic disease. FLOW VELOCITY: No significantly increased or decreased flow velocity. US/US arterial duplex UE BI IMPRESSION: 1. Narrow vessels without appreciable significant atherosclerotic disease. 2. Abnormal biphasic waveform throughout both upper extremities. Electronically authenticated by: BRUCE HILL Date: 08/03/2023 08:12
--- NOTE | 2023-08-02 13:06 | US_ITS ---
The [address] [address] Patient Name: FEROZ DUTTA MRN: [id number] date: 1960 Sex: F Assigned Patient Location: [facility] Current Patient Location: [facility] Accession/Order Number: [id number] Exam Date: 08/02/2023 13:10 Report Date: 08/02/2023 15:46 At the request of: EZEKIEL CHENEY Procedure: US venous doppler UE RT EXAMINATION: US venous doppler UE RT HISTORY: Arm Edema R60.0 COMPARISON: No relevant comparison available. FINDINGS: REGION: Right upper extremity THROMBI: None. COMPRESSIBILITY: Normal compressibility. FLOW: Normal waveform and antegrade flow between 5 and 20 cm/s. OTHER: None. US/US venous doppler UE RT IMPRESSION: 1. Slightly limited examination due to small size of veins. 2. No deep vein thrombus within the right upper extremity. Electronically authenticated by: BRUCE HILL Date: 08/02/2023 15:46
[2023-08-02 14:17] LABS: Basophils Absolute Auto 0.1 10^3/uL (0.0-0.1); Basophils Percent Auto 0.7 % (0.2-2.0); Eosinophils Absolute Auto 0.1 10^3/uL (0.0-0.7); Eosinophils Percent Auto 0.9 % (0.9-7.0); Hematocrit 39.8 % (36.0-48.0); Hemoglobin 12.8 g/dL (12.0-16.0); Immature Granulocytes Abs Auto 0.04 10^3/uL (0.00-0.03); Immature Granulocytes Pct Auto 0.5 % (0.0-0.5); Lymphocytes Absolute Auto 2.2 10^3/uL (1.2-3.8); Lymphocytes Percent Auto 25.4 % (20.5-60.0); Mean Corpuscular HGB Conc 32.2 g/dL (29.9-35.2); Mean Corpuscular Hemoglobin 30.3 pg (26.7-34.0); Mean Corpuscular Volume 94.1 fL (81.0-99.0); Mean Platelet Volume 10.7 fL (9.5-13.5); Monocytes Absolute Auto 0.8 10^3/uL (0.3-0.8); Monocytes Percent Auto 9.4 % (1.7-12.0); Neutrophils Absolute Auto 5.5 10^3/uL (1.4-6.5); Neutrophils Percent Auto 63.1 % (43.0-75.0); Platelet Count 279 10^3/uL (150-450); Red Blood Count 4.23 10^6/uL (4.20-5.40); Red Cell Distribution Width 14.7 % (11.0-15.0); White Blood Count 8.8 10^3/uL (4.0-11.0)
[2023-08-02 14:40] LABS: Free T4 1.07 ng/dL (0.76-1.46)
[2023-08-02 14:44] LABS: Alanine Aminotransferase 22 U/L (14-59); Albumin Globulin Ratio 0.9; Albumin Level 3.5 g/dL (3.4-5.0); Alkaline Phosphatase 164 U/L (46-116); Anion Gap 13.3; Aspartate Amino Transferase 27 U/L (15-37); BUN Creatinine Ratio 19.7; Bilirubin Total 0.3 mg/dL (0.2-1.0); Calcium 9.2 mg/dL (8.5-10.1); Carbon Dioxide 27.6 mmol/L (21.0-32.0); Chloride 102 mmol/L (98-107); Estimated GFR (African America >60 (>=60); Estimated GFR (Non-African Ame >60 (>=60); Globulin 4.1 g/dL; Glucose 98 mg/dL (74-106); Potassium 3.9 mmol/L (3.5-5.1); Sodium 139 mmol/L (136-145); Thyroid Stimulating Hormone 1.167 uIU/mL (0.358-3.740); Total Protein 7.6 g/dL (6.4-8.2)
== END 2023-08-02 13:00 | disposition home or self-care (01) ==
LOC: RAD 13:01
PROVIDERS: PCP Family Medicine; Visit Provider Family Medicine
DX: R60.0 Localized edema (principal); I50.30 Unspecified diastolic (congestive) heart failure; I11.0 Hypertensive heart disease with heart failure; I77.1 Stricture of artery
CPT/HCPCS: 36415; 80053; 83880; 84439; 84443; 85025; 93930; 93971

== ENCOUNTER 2023-09-06 07:34 | Outpatient (OUT) | payer MEDICARE, OTHER, SELFPAY ==
--- OUTSIDE RECORDS SUMMARY | 2023-09-06 07:38 | XMS_ITS | CCD ---
Author Organization [facility] CliniSynh Care Team Providers Care Cloth Beamer Name Role Phone SHAD, ABDULAZIM Unavailable Unavailable SHAD, ABDULAZIM Unavailable Unavailable HOY, EZEKIEL Unavailable Unavailable HOY, EZEKIEL Unavailable Unavailable WA Unavailable Unavailable SHAD, ABDULAZIM Unavailable Unavailable WA Unavailable Unavailable AGUSTO RON Unavailable Unavailable SHAD, ABDULAZIM Unavailable Unavailable SHAD, ABDULAZIM Unavailable Unavailable SHAD, ABDULAZIM Unavailable Unavailable HOY, EZEKIEL Unavailable Unavailable NAWRAS, ALI T Unavailable Unavailable NAWRAS, ALI T Unavailable Unavailable HOY, EZEKIEL Unavailable Unavailable HOY, EZEKIEL Unavailable Unavailable WA Unavailable Unavailable NAWRAS, ALI T Unavailable Unavailable [place] Unavailable Unavailable AGUSTO RON Unavailable Unavailable Ezekiel Deras Primary Care Physician DR EZEKIEL TELLO Attending Unavailable NONI Tanner, DR FALCON Admitting Unavailable NONI Tanner, DR FALCON Primary Care Unavailable KOBE CHOUDHARY Attending Unavailable KOBE CHOUDHARY Admitting Unavailable MARLON ARREOLA Consulting Unavailable DR EZEKIEL TELLO Primary Care Unavailable KOBE CHOUDHARY Consulting Unavailable DR BRUCE HILL Consulting Unavailable ZECHARIAH MCDONALD Admitting Unavailable ZECHARIAH MCDONALD Attending Unavailable DR EZEKIEL TELLO Primary Care Unavailable DR RENATO CANO Consulting Unavailable DR SARAH LAGUNAS Admitting Unavailrom LAGUNAS, DR SARAH Doyle Attending Unavailrom e DR EZEKIEL TELLO Primary Care Unavailable JENIFER SAPP Attending Unavailable JENIFER SAPP Admitting Unavailable JENIFER SAPP Consulting Unavailable DR EZEKIEL TELLO Primary Care Unavailable STEVE BENÍTEZ Consulting Unavailable DR EZEKIEL TELLO Attending Unavailable DR EZEKIEL TELLO Primary Care Unavailable DR EZEKIEL TELLO Admitting Unavailable DR EZEKIEL TELLO Consulting Unavailable JANNETH, DR SARAH Doyle Consulting Unavailrom HILL, DR BRUCE Lr Consulting Unavailable EZEKIEL DAVIDSON Consulting Unavailable UNLU, SOLO Consulting Unavailable HEMYLES, JANIE Consulting Unavailable HOY ., DR FALCON Attending Unavailable HOY ., DR FALCON Admitting Unavailable HOY ., DR FALCON Primary Care Unavailable HOY ., DR FALCON Consulting Unavailable WEST, DR TATIANA Mcdonough Consulting Unavailable RODRICK AYOUB Consulting Unavailable HOY ., DR FALCON Admitting Unavailable HOY ., DR FALCON Attending Unavailable HAY ., DR GROSS Procedure Practitioner Unavailab le HOY ., DR FALCON Consulting Unavailable HOY ., DR FALCON Primary Care Unavailable WEST, DR TATIANA Mcdonough Consulting Unavailable HAY ., DR GROSS Consulting Unavailable STEPHANIE BILLS Consulting Unavailable HOY ., DR FALCON Attending [...] Unavailable HAY ., DR GROSS Consulting Unavailable COSMEABESTEPHANIE Consulting Unavailable HOY ., DR FALCON Admomar Unavailable HOY ., DR FALCON Attending Unavailable STEPHEN, DR JARVIS Lr Consulting Unavailable HOY ., DR FALCON Primary Care Unavailable HOY ., DR FALCON Consulting Unavailable GONZÁLES ., DR BEVERLY Jain Consulting Unavailable WEST, DR TATIANA Mcdonough Consulting Unavailable PAY ., DR WHITAKER Consulting Unavailable TERESA COTTON Consulting Unavailable MALCOLM ., DR FELIX Rahman [...] MALCOLM ., DR FELIX Rahman Consulting Unavailable JUNGERMANN KARENA Consulting Unavailable NUNES ., REBECCA Consulting Unavailable MALCOLM ., DR FELIX Rahman Admitting Unavailable MALCOLM ., DR FELIX Rahamn Attending Unavailable HOY ., DR FALCON Primary Care Unavailable MALCOLM ., DR FELIX Rahman Attending Unavailable MALCOLM ., DR FELIX Rahman Admitting Unavailable MALCOLM ., DR FELIX Rahman Consulting Unavailable HOY ., DR FALCON Primary Care Unavailable CESIA JAIME Consulting Unavailable HOY ., DR FALCON Primary Care Unavailable MALCOLM ., DR FELIX Rahman Attending Unavailable AMLCOLM ., DR FELIX Rahman Admitting Unavailable MALCOLM ., DR FELIX Rahman Consulting Unavailable POOLE, MOSES Consulting Unavailable MALCOLM ., DR FELIX [...] ., NARENDRANATH Consulting Tawny vailable LAKSHMIPATHY ., NARENDRANATH Attending Tawny vailable HOY ., DR FALCON Primary Care Unavailable LAKSHMIPATHY ., NARENDRANATH Admitting Tawny vailable LAKSHMIPATHY ., NARENDRANATH Attending Tawny vailable HOY ., DR FALCON [...] Unavailable ZITERRENCE, DR BRUCE Lr Consulting Unavailable DES .REBECCA Consulting Unavailable YUN ., DR FELIX Rahman Attending Unavailable MALCOLM ., DR FELIX Rahman Admitting Unavailable HOY ., DR FALCON Primary Care Unavailable YUN ., DR FELIX Rahman Attending [...] DR FALCON Primary Care Unavailable LAKSHMIPATHY ., NARENDCASSANDRAATH Consulting Tawny vailable LAKSHMIPATHY ., NARFREDRICK Attending Tawny vailable HOY ., DR FALCON Primary Care Unavailable LAKSHMIPATHY ., NARFREDRICK Admitting Tawny vailable HOY ., DR FALCON Primary Care Unavailable MACLOLM ., DR FELIX Rahman Attending Unavailable MALCOLM ., DR FELIX Rahman Admitting Unavailable MALCOLM ., DR FELIX Rahman Consulting Unavailable MALCOLM ., DR FELIX Rahman Admitting Unavailable MALCOLM ., DR FELIX Rahman Attending Unavailable MALCOLM ., DR FELIX Rahman Consulting Unavailable HOY ., DR FALCON Primary Care Unavailable TENNILLE LARA Referring Unavailable ALESSIA WHITE Attending Unavailable ANURAGYEZEKIEL M Referring Unavailable EZEKIEL DERAS M Primary Care Unavailable Allergies Allergy Classification Reported Allergen(s) Allergy Type Date of Onset Reaction(s) Facility (5 sources) morphine; Translations: [MORPHINE] Drug Allergy 08-05-19 18 Anaphylaxis (disorder) [facility] Repository (4 sources) prochlorperazine Drug Allergy 02-04-20 AOF [facility] Repository (4 sources) Iodinated Contrast Media - IV Dye Drug allergy (disorder) 02-04-20 AOF [facility] Repository (2 sources) Baclofen; Translations: [baclofen] Drug Allergy 08-29-19 23 Anaphylaxis (disorder) [facility] [place] (2 sources) cefdinir; Translations: [cefdinir] Drug Allergy 08-29-19 23 Weal (disorder) [facility] [place] (1 source) Contrast media; Translations: [contrast media (iodine-based)] Drug allergy Anaphylaxis (disorder) [facility] [place] (2 sources) Prochlorperazine; Translations: [prochlorperazine] Drug Allergy 10-14-19 18 Weal (disorder) [facility] [place] (2 sources) Clindamycin Drug Allergy 10-05-19 17 [facility] Repository (2 sources) Dihydroergotamine Drug Allergy 07-13-19 21 [facility] Repository (1 source) HYDROmorphone Drug Allergy 05-11-19 22 [facility] Rep[facility] (1 source) Valproate Drug Allergy [facility] Repository (1 source) ALLERGIES NOT ON FILE; Translations: [ALLERGIES NOT ON FILE] Propensity to adverse reactions (disorder) [facility] Repository (1 source) Clindamycin; Translations: [CLINDAMYCIN] Drug Allergy 08-29-19 23 [facility] Repository (1 source) IODINATED CONTRAST MEDIA; Translations: [IODINATED CONTRAST MEDIA] Propensity to adverse reactions to drug (disorder) 10-14-19 18 [facility] Repository Medications Current Medications Medication Drug Class(es) Dates Sig (Normalized) Sig (Original) albuterol 0.83 mg/ml inhalation solution (1 source) beta2-Adrenergic Agonist Start: 09-23-2021 take 2.5 mg by inhalation four times daily albuterol 0.083% Inh Elvira 3 mL 2.5 mg, 3 mL, NEB, QID, Refill(s) 0 Start Date: 09/23/21 Status: Ordered amylase 397539 unt / lipase 76299 unt / protease 95594 unt delayed release oral capsule (1 source) [...] disease (3 sources) Atherosclerotic heart disease of [place] coronary artery without angina pectoris; Translations: [Coronary [...] Translations: [POLYCYSTIC KIDNEY UNSPECIFIED] Onset: 3 Chronic Headache; including migraine (2 sources) Migraine; Translations: [...] 09-23-2021 Chronic Other aftercare (1 source) 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; Translations: [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] Onset: 3 Episodic Other aftercare (1 source) 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; Translations: [FCI CURRNT USE ANTICOAGULANTS] Onset: 3 Episodic Other [...] Translations: [LOW BACK PAIN, UNSPECIFIED] Onset: 2 Unclassified (1 source) Error Onset: 3 Varicose veins of lower extremity (1 source) [...] Translations: [GASTROINTESTINAL HEMORRHAGE UNS] Onset: 2 Episodic Genitourinary symptoms and ill-defined conditions (2 sources) Personal history of urinary (tract) infections; Translations: [Disorder of urinary system, unspecified] Onset: 3 Episodic Nausea and vomiting (5 sources) Nausea [...] Range Facility 36on 10-26-2022 36 Call to [place] rené martin pt status and was told she had DC to home 10/19. Couldn't confirm that her line was removed. Call to pt and she verified IV was removed upon discharge from [place]. [facility] 36on 10-10-2022 36 Opat received. Order s confirmed with Analilia at [facility] for meds, labs and EOT. Transferred to [facility] for a follow appt to be scheduled. Normal [facility] CT CHEST WO CONon 08-09-2022 CT CHEST WO CON Normal [facility] NM BONE SC WH BODYon 023 NM BONE SC WH BODY Normal [facility] CBC AUTO DIFFon 07-31-2022 BASO # 0.1 103/ul Normal 0.0-0.1 [facility] Comment on above: Performed By: #### C BC ####[facility] Jeakq[address] [place], [place] [address]Dr. Lizandro Hemphill Basophils/100 WBC (Bld) 1.3 % Normal 0.2-2.0 [facility] Comment on above: Performed By: #### C BC ####[facility] Sqsi[address]ardr[address] [place], [place] [address]Dr. Lizandro Hemphill EO # 0.2 103/ul Normal 0.0-0.7 [facility] Comment on above: Performed By: #### C BC ####[facility] Ogixyuo[address] [place], [place] [address]Dr. Lizandro Hemphill Eosinophils/100 WBC (Bld) 2.4 % Normal 0.9-7.0 [facility] Comment on above: Performed By: #### C BC ####[facility] [address]uyq[address] [place], [place] [address]Dr. Lizandro Hemphill Erythrocyte distribution width (RBC) [Ratio] 19.4 % Critically high 11.0-15.0 [facility] Comment on above: Performed By: #### C BC ####[facility] [address]ysx[address] [place], [place] [address]Dr. Lizandro Hemphill Hematocrit (Bld) [Volume fraction] 39.6 % Normal 36.0-48.0 [facility] Comment on above: Performed By: #### C BC ####[facility] Hsyasulpfd[address] [place], [place] [address]Dr. Lizandro Hemphill Hemoglobin (Bld) [Mass/Vol] 12.4 g/dL Normal 12.0-16.0 [facility] Comment on above: Performed By: #### C BC ####[facility] L[address]uw[address] [place], [place] [address]Dr. Lizandro Hemphill IG # 0.02 10e3/ul Normal 0.00-0.03 [facility] Comment on above: Performed By: #### C BC ####[facility] Bzvwjizfvq[address] [place] [id number]. Lizandro Hemphill IG % 0.3 % Normal 0.0-0.5 [facility] Comment on above: Performed By: #### C BC ####[facility] Rmepjvygrq6696 [place] [id number]. Lizandro Joby LYMPH # 1.1 103/ul Critically low 1.2-3.8 [facility] Comment on above: Performed By: #### C BC ####[facility] Fqwrhhxhbv6100 [place] [id number]. Shanikaannie Hemphill Lymphocytes/100 WBC (Bld) 15.3 % Critically low 20.5-60.0 [facility] Comment on above: Performed By: #### C BC ####[facility] Ezzfvgkntx[address] [place] [address]Dr. Lizandro Hemphill MANUAL DIFF REQ NO Normal [facility] Comment on above: Performed By: #### C BC ####[facility] Wjpqqytesn7295 [place] [id number]. Lizandro Hemphill MCH (RBC) [Entitic mass] 28.6 pg Normal 26.7-34.0 [facility] Comment on above: Performed By: #### C BC ####[facility] Pflazvkmvi1503 [place] [id number]. Lizandro Hemphill MCHC (RBC) [Mass/Vol] 31.3 g/dL Normal 29.9-35.2 [facility] Comment on above: Performed By: #### C BC ####[facility] Cfgbsadogw4718 [place] [id number]. Lizandro Hemphill MCV (RBC) [Entitic vol] 91.5 fL Normal 81.0-99.0 [facility] Comment on above: Performed By: #### C BC ####[facility] Wzlsfkgetv1717 [place] [id number]. Lizandro Hemphill MONO # 0.7 103/ul Normal 0.3-0.8 [facility] Comment on above: Performed By: #### C BC ####[facility] Qpedpybtgm8797 [place] [id number]. Lizandro Hemphill Monocytes/100 WBC (Bld) 10.5 % Normal 1.7-12.0 [facility] Comment on above: Performed By: #### C BC ####[facility] Immowkxuvz5675 [place] [id number]. Lizandro Hemphill NEUT # 5.0 103/ul Normal 1.4-6.5 [facility] Comment on above: Performed By: #### C BC ####[facility] Klhuzosqza3520 [place] [id number]. Lizandro Hemphill Neutrophils/100 WBC (Bld) 70.2 % Normal 43.0-75.0 [facility] Comment on above: Performed By: #### C BC ####[facility] Pelxygjelt3230 [place] [id number]. Lizandro Hemphill Platelet mean volume (Bld) [Entitic vol] 10.5 fL Normal 9.5-13.5 [facility] Comment on above: Performed By: #### C BC ####[facility] Dmvuzyujcx4587 [place] [id number]. Lizandro Hemphill PLT 294 103/ul Normal 150-450 [facility] Comment on above: Performed By: #### C BC ####[facility] Wmhjvzzosu2295 [place] [id number]. Shanikaannie Hemphill RBC 4.33 106/ul Normal 4.20-5.40 [facility] Comment on above: Performed By: #### C BC ####[facility] Ohlfsfmdwu4694 [place] [id number]. Lizandro Hemphill WBC 7.1 103/ul Normal 4.0-11.0 [facility] Comment on above: Performed By: #### C BC ####[facility] Qgwnuyrgxf4573 [place] [id number]. Lizandro Joby CT HIP LT WO CONon 3 CT HIP LT WO CON Normal The [facility] CT KNEE LT WO CONon 08-01-[address] KNEE LT WO CON Normal The [facility] PROF 14(COMP METB)on 023 Albumin [Mass/Vol] 3.0 g/dL Critically low 3.4-5.0 [facility] Comment on above: Performed By: #### C MP ####[facility] Xvfiuscokp4227 [place] [address]Dr. Lizandro Hemphill Albumin/Globulin [Mass ratio] 0.8 {ratio} Normal [facility] Comment on above: Performed By: #### C MP ####[facility] Nnktumwdjq9504 [place] [address]Dr. Lizandro Hemphill ALP [Catalytic activity/Vol] 163 U/L Critically high 46-116 [facility] Comment on above: Performed By: #### C MP ####[facility] Qwlubmrylu9281 [place] [address]Dr. Lizandro Hemphill ALT [Catalytic activity/Vol] 76 U/L Critically high 14-59 [facility] Comment on above: Performed By: #### C MP ####[facility] Mbmsccarte7280 [place] [address]Dr. Lizandro Hemphill Anion gap [Moles/Vol] 10.8 mmol/L Normal [facility] Comment on above: Performed By: #### C MP ####[facility] Majxefxihe169[address] [place], [place] [address]Dr. Lizandro Hemphill AST [Catalytic activity/Vol] 79 U/L Critically high 15-37 [facility] Comment on above: Performed By: #### C MP ####[facility] Ojmidjdoki3155 [place] [address]Dr. Lizandro Hemphill Bilirubin [Mass/Vol] 0.1 mg/dL Critically low 0.2-1.0 [facility] Comment on above: Performed By: #### C MP ####[facility] Tsjomaqork[address] [place], [place] [address]Dr. Lizandro Hemphill Calcium [Mass/Vol] 9.2 mg/dL Normal 8.5-10.1 [facility] Comment on above: Performed By: #### C MP ####[facility] Jyyaiymubz1303 [place] [address]Dr. Lizandro Hemphill Chloride [Moles/Vol] 105 mmol/L Normal 98-107 [facility] Comment on above: Performed By: #### C MP ####[facility] Ssboxvpskm3554 [place] [address]Dr. Lizandro Hemphill CO2 [Moles/Vol] 29.1 mmol/L Normal 21.0-32.0 The [facility] Comment on above: Performed By: #### C MP ####[facility] Isewynktwi[address] [place], [place] [address]Dr. Lizandro Hemphill Creatinine [Mass/Vol] 0.74 mg/dL Normal 0.55-1.02 [facility] Comment on above: Performed By: #### C MP ####[facility] Cjszjlwily75[address] [place], [place] [address]Dr. Lizandro Hemphill EGFR-AF SOMALI >60 Normal >=60 The [facility] Comment on above: Performed By: #### C MP ####[facility] Aisgxogulb8[address] [place], [place] [address]Dr. Lizandro Hemphill EGFR-NON AF SOMALI >60 Normal >=60 [facility] Comment on above: Performed By: #### C MP ####[facility] Ydiivuzvyi25[address] [place], [place] [address]Dr. Lizandro Hemphill Globulin (S) [Mass/Vol] 3.9 g/dL Normal [facility] Comment on above: Performed By: #### C MP ####[facility] Owekabqbfh[address] [place], [place] [address]Dr. Lizandro Hemphill Glucose [Mass/Vol] 96 mg/dL Normal 74-106 [facility] Comment on above: Performed By: #### C MP ####[facility] Jgnlzkxjzt[address] [place], [place] [address]Dr. Lizandro Hemphill Potassium [Moles/Vol] 3.9 mmol/L Normal 3.5-5.1 [facility] Comment on above: Performed By: #### C MP ####[facility] Ysgyiotmnp0[address] [place], [place] [address]Dr. Lizandro Hemphill Protein [Mass/Vol] 6.9 g/dL Normal 6.4-8.2 [facility] Comment on above: Performed By: #### C MP ####[facility] Wlvdgaxggy[address] [place], [place] [address]Dr. Lizandro Hemphill Sodium [Moles/Vol] 141 mmol/L Normal 136-145 [facility] Comment on above: Performed By: #### C MP ####[facility] Mhkuxykndr[address] [place], [place] [address]Dr. Lizandro Hemphill Urea nitrogen [Mass/Vol] 13.0 mg/dL Normal 7.0-18.0 [facility] Comment on above: Performed By: #### C MP ####[facility] Uhtnbowlsq[address] [place], [place] [address]Dr. Lizandro Hemphill Urea nitrogen/Creatinin e [Mass ratio] 17.6 mg/mg Normal [facility] Comment on above: Performed By: #### C MP ####[facility] Jkvtqavdke[address] [place], [place] [address]Dr. Lizandro Hemphill PROTIMEon 07-31-2022 INR Coag (PPP) [Relative time] 1.56 {INR} Normal [facility] Comment on above: Performed By: #### P T, PTT ####[facility] Zzoqvokbew[address] [place], [place] [address]Dr. Lizandro Hemphill INR GUIDELINES SEE BELOW Normal [facility] Comment on above: Result Comment: GUEVARA RED INR: 2.0 - 3.0 CONDITIONS NOT LISTED BELOW 2.5 - 3.5 FOR PROSTHETIC HEART VALVE REPLACEMENT 2.5 - 3.5 RECURRENT THROMBOSIS Performed By: #### P T, PTT ####[facility] Ratxqsoggf[address] [place], [place] [address]Dr. Lizandro Hemphill PT Coag (PPP) [Time] 16.1 s Critically high 9.0-11.6 [facility] Comment on above: Performed By: #### P T, PTT ####[facility] Xumfevavcy[address] [place], [place] [address]Dr. Lizandro Hemphill PTTon 07-31-2022 aPTT Coag (Bld) [Time] 30.4 s Normal 22.3-36.2 [facility] Comment on above: Performed By: #### P T, PTT ####[facility] Shooeclkmu[address] [place], [place] [address]Dr. Lizandro Hemphill CBC AUTO DIFFon 07-30-2022 BASO # 0.1 103/ul Normal 0.0-0.1 [facility] Comment on above: Performed By: #### C BC ####[facility] Dyauobirgy[address] [place], [place] [address]Dr. Shanikaannie Hemphill Basophils/100 WBC (Bld) 1.1 % Normal 0.2-2.0 [facility] Comment on above: Performed By: #### C BC ####[facility] Yrxutzyian[address] [place], [place] [address]Dr. Lizandro Hemphill EO # 0.1 103/ul Normal 0.0-0.7 [facility] Comment on above: Performed By: #### C BC ####[facility] Wjijhfvpww[address] [place], [place] [address]Dr. Shankiaannie Hemphill Eosinophils/100 WBC (Bld) 2.7 % Normal 0.9-7.0 [facility] Comment on above: Performed By: #### C BC ####[facility] Chinibascp[address] [place], [place] [address]Dr. Lizandro Hemphill Erythrocyte distribution width (RBC) [Ratio] 19.5 % Critically high 11.0-15.0 [facility] Comment on above: Performed By: #### C BC ####[facility] Ckzzsujvii[address] [place], [place] [address]Dr. Lizandro Hemphill Hematocrit (Bld) [Volume fraction] 34.5 % Critically low 36.0-48.0 [facility] Comment on above: Performed By: #### C BC ####[facility] Maovargxbd[address] [place], [place] [address]Dr. Lizandro Hemphill Hemoglobin (Bld) [Mass/Vol] 10.8 g/dL Critically low 12.0-16.0 [facility] Comment on above: Performed By: #### C BC ####[facility] Kofmstcvze[address] [place] [address]Dr. Lizandro Joby IG # 0.02 10e3/ul Normal 0.00-0.03 [facility] Comment on above: Performed By: #### C BC ####[facility] Kotzafayty[address] [place] [address]Dr. Lizandro Joby IG % 0.4 % Normal 0.0-0.5 [facility] Comment on above: Performed By: #### C BC ####[facility] Ttjuxbradc[address] [place], [place] [address]Dr. Lizandro Hemphill LYMPH # 1.0 103/ul Critically low 1.2-3.8 [facility] Comment on above: Performed By: #### C BC ####[facility] Xufdzbfjrs[address] [place], [place] [address]Dr. Lizandro Hemphill Lymphocytes/100 WBC (Bld) 19.2 % Critically low 20.5-60.0 [facility] Comment on above: Performed By: #### C BC ####[facility] Epjsxdnvze[address] [place], [place] [address]DrCiro Shanikaannie Hemphill MANUAL DIFF REQ NO Normal [facility] Comment on above: Performed By: #### C BC ####[facility] Xdnxspioms[address] [place], [place] [address]DrCiro Lizandro Hemphill MCH (RBC) [Entitic mass] 28.5 pg Normal 26.7-34.0 [facility] Comment on above: Performed By: #### C BC ####[facility] Sdzhxrfnvl[address] [place], [place] [address]DrCiro Lizandro Joby MCHC (RBC) [Mass/Vol] 31.3 g/dL Normal 29.9-35.2 [facility] Comment on above: Performed By: #### C BC ####[facility] Ebadadouhm[address] [place], [place] [address]DrCiro Lizandro Joby MCV (RBC) [Entitic vol] 91.0 fL Normal 81.0-99.0 [facility] Comment on above: Performed By: #### C BC ####[facility] Xywxndfsgz[address] [place], [place] [address]Dr. Lizandro Hemphill MONO # 0.7 103/ul Normal 0.3-0.8 [facility] Comment on above: Performed By: #### C BC ####[facility] Kfvqcdxdwk1710 [place] [address]Dr. Lizandro Hemphill Monocytes/100 WBC (Bld) 12.5 % Critically high 1.7-12.0 [facility] Comment on above: Performed By: #### C BC ####[facility] Cewwuztciu8982 [place] [address]Dr. Lizandro Hemphill NEUT # 3.4 103/ul Normal 1.4-6.5 [facility] Comment on above: Performed By: #### C BC ####[facility] Ysytiocsvs4376 [place] [address]Dr. Lizandro Hemphill Neutrophils/100 WBC (Bld) 64.1 % Normal 43.0-75.0 [facility] Comment on above: Performed By: #### C BC ####[facility] Niquifgdqv6[address] [place], [place] [address]Dr. Lizandro Hemphill Platelet mean volume (Bld) [Entitic vol] 10.9 fL Normal 9.5-13.5 [facility] Comment on above: Performed By: #### C BC ####[facility] Xsldwfvuqy[address] [place], [place] [address]Dr. Lizandro Hemphill PLT 284 103/ul Normal 150-450 [facility] Comment on above: Performed By: #### C BC ####[facility] Ezcojbrhpw9629 [place] [address]Dr. Lizandro Hemphill RBC 3.79 106/ul Critically low 4.20-5.40 [facility] Comment on above: Performed By: #### C BC ####[facility] [address]sjxyrf[address] [place], [place] [id number]. Lizandro Hemphill WBC 5.3 103/ul Normal 4.0-11.0 [facility] Comment on above: Performed By: #### C BC ####[facility] Siayiyexvn[address] [place], [place] [address]Dr. Lizandro Hemphill LIVER PROFILEon 07-30-2022 Albumin [Mass/Vol] 2.9 g/dL Critically low 3.4-5.0 [facility] Comment on above: Performed By: #### L IVER ####[facility] Crlnzzdhyj4527 [place] [address]Dr. Lizandro Hemphill Albumin/Globulin [Mass ratio] 0.8 {ratio} Normal [facility] Comment on above: Performed By: #### L IVER ####[facility] Lnzsyhclii[address] [place], [place] [address]Dr. Lizandro Hemphill ALP [Catalytic activity/Vol] 164 U/L Critically high 46-116 [facility] Comment on above: Performed By: #### L IVER ####[facility] Uqvhtrrbgy[address] [place], [place] [address]Dr. Lizandro Hemphill ALT [Catalytic activity/Vol] 91 U/L Critically high 14-59 [facility] Comment on above: Performed By: #### L IVER ####[facility] Tjfgtnrmqw[address] [place], [place] [address]Dr. Lizandro Hemphill AST [Catalytic activity/Vol] 113 U/L Critically high 15-37 [facility] Comment on above: Performed By: #### L IVER ####[facility] Jighwkcjaf[address] [place], [place] [address]Dr. Lizandro Hempihll BILI, CONJUGATED 0.1 mg/dL Normal 0.0-0.2 [facility] Comment on above: Performed By: #### L IVER ####[facility] Pvlciukmlz7[address] [place], [place] [address]Dr. Lizandro Hemphill Bilirubin [Mass/Vol] 0.2 mg/dL Normal 0.2-1.0 [facility] Comment on above: Performed By: #### L IVER ####[facility] Wudboycygx688[address] [place], [place] [address]Dr. Lizandro Hemphill Globulin (S) [Mass/Vol] 3.7 g/dL Normal [facility] Comment on above: Performed By: #### L IVER ####[facility] Hlpcgixzpq5077[address] [place], [place] [address]Dr. Lizandro Hemphill Protein [Mass/Vol] 6.6 g/dL Normal 6.4-8.2 [facility] Comment on above: Performed By: #### L ROXANA ####[facility] [address] [place] [address]Dr. Lizandro Hemphill PROF 14(COMP METB)on 023 Albumin [Mass/Vol] 2.8 g/dL Critically low 3.4-5.0 [facility] Comment on above: Performed By: #### C MP ####[facility] [address] [place] [address]Dr. Lizandro Hemphill Albumin/Globulin [Mass ratio] 0.8 {ratio} Normal [facility] Comment on above: Performed By: #### C MP ####[facility] Bbyocmvnmr[address] [place], [place] [address]Dr. Lizandro Hemphill ALP [Catalytic activity/Vol] 157 U/L Critically high 46-116 [facility] Comment on above: Performed By: #### C MP ####[facility] Rtzcspkrjp676[address] [place], [place] [address]Dr. Lizandro Hemphill ALT [Catalytic activity/Vol] 106 U/L Critically high 14-59 [facility] Comment on above: Performed By: #### C MP ####[facility] Vqbibdafuv9067[address] [place], [place] [address]Dr. Lizandro Hemphill Anion gap [Moles/Vol] 10.4 mmol/L Normal [facility] Comment on above: Performed By: #### C MP ####[facility] Pmkvzxtmkb0667[address] [place], [place] [address]Dr. Lizandro Hemphill AST [Catalytic activity/Vol] 171 U/L Critically high 15-37 [facility] Comment on above: Performed By: #### C MP ####[facility] Vcgnowjuln0127[address] [place], [place] [address]Dr. Lizandro Hemphill Bilirubin [Mass/Vol] 0.3 mg/dL Normal 0.2-1.0 [facility] Comment on above: Performed By: #### C MP ####[facility] [address]xuuk[address] [place] [address]Dr. Lizandro Hemphill Calcium [Mass/Vol] 8.2 mg/dL Critically low 8.5-10.1 [facility] Comment on above: Performed By: #### C MP ####[facility] Zadjmceubt2587[address] [place], [place] [address]Dr. Lizandro Joby Chloride [Moles/Vol] 107 mmol/L Normal 98-107 [facility] Comment on above: Performed By: #### C MP ####[facility] Tcslfkcgwy9723[address] [place], [place] [address]Dr. Lizandro Joby CO2 [Moles/Vol] 27.4 mmol/L Normal 21.0-32.0 [facility] Comment on above: Performed By: #### C MP ####[facility] Hbexjvdlsu010186 [address] [place], [place] [address]Dr. Lizandro Joby Creatinine [Mass/Vol] 0.74 mg/dL Normal 0.55-1.02 [facility] Comment on above: Performed By: #### C MP ####[facility] Ytrcymwrzn300[address] [place], [place] [address]Dr. Lizandro Joby EGFR-AF SOMALI >60 Normal >=60 [facility] Comment on above: Performed By: #### C MP ####[facility] Mgjcygqytq724[address] [place], [place] [address]Dr. Lizandro Joby EGFR-NON AF SOMALI >60 Normal >=60 [facility] Comment on above: Performed By: #### C MP ####[facility] Mzfvuoxdsj3019[address] [place], [place] [address]Dr. Lizandro Joby Globulin (S) [Mass/Vol] 3.4 g/dL Normal [facility] Comment on above: Performed By: #### C MP ####[facility] Ibzparkrdi4195[address] [place], [place] [address]Dr. Shanikaannie Joby Glucose [Mass/Vol] 123 mg/dL Critically high 74-106 [facility] Comment on above: Performed By: #### C MP ####[facility] Rhhvyllpbo8010[address] [place], [place] [address]Dr. Lizandro Hemphill Potassium [Moles/Vol] 3.8 mmol/L Normal 3.5-5.1 [facility] Comment on above: Performed By: #### C MP ####[facility] Kcwfvwpnoe4050[address] [place], [place] [address]Dr. Lizandro Hemphill Protein [Mass/Vol] 6.2 g/dL Critically low 6.4-8.2 [facility] Comment on above: Performed By: #### C MP ####[facility] Cwctgzvrgn210[address] [place], [place] [address]Dr. Lizandro Hemphill Sodium [Moles/Vol] 141 mmol/L Normal 136-145 [facility] Comment on above: Performed By: #### C MP ####[facility] Fnrtwqzhsi3780[address] [place], [place] [address]Dr. Lizandro Hemphill Urea nitrogen [Mass/Vol] 14.0 mg/dL Normal 7.0-18.0 [facility] Comment on above: Performed By: #### C MP ####[facility] Ynvwufxntu3712[address] [place], [place] [address]Dr. Lizandro Hemphill Urea nitrogen/Creatinin e [Mass ratio] 18.9 mg/mg Normal [facility] Comment on above: Performed By: #### C MP ####[facility] Kgzohsxjdc744[address] [place], [place] [address]Dr. Lizandro Hemphill PROTIMEon 07-30-2022 INR Coag (PPP) [Relative time] 1.08 {INR} Normal [facility] Comment on above: Performed By: #### P T, PTT ####[facility] Gcmppkncdc434[address] [place], [place] [address]Dr. Lizandro Hemphill INR GUIDELINES SEE BELOW Normal [facility] Comment on above: Result Comment: GEUVARA RED INR: 2.0 - 3.0 CONDITIONS NOT LISTED BELOW 2.5 - 3.5 FOR PROSTHETIC HEART VALVE REPLACEMENT 2.5 - 3.5 RECURRENT THROMBOSIS Performed By: #### P T, PTT ####[facility] Xktbelphuj966186 [address] [place], [place] [address]Dr. Lizandro Hemphill PT Coag (PPP) [Time] 11.4 s Normal 9.0-11.6 [facility] Comment on above: Performed By: #### P T, PTT ####[facility] Jzcihxgxkv507[address] [place], [place] [address]Dr. Lizandro Hemphill PTTon 07-30-2022 aPTT Coag (Bld) [Time] 29.3 s Normal 22.3-36.2 [facility] Comment on above: Performed By: #### P T, PTT ####[facility] Aeyveuqpfk9832[address] [place], [place] [address]Dr. Lizandro Hemphill UA RANDOM W/MICROSCOPICon BACTERIA NONE SEEN Normal NONE SEEN [facility] Comment on above: Performed By: #### U AMIC ####[facility] Kgxkkcxhwc433[address] [place], [place] [address]Dr. Lizandro Hemphill Bilirubin Ql (U) Negative Normal NEGATIVE The [facility] Comment on above: Performed By: #### U AMIC ####[facility] Wdsihpppdy580[address] [place], [place] [address]Dr. Lizandro Hemphill CAST NONE SEEN Normal NONE SEEN [facility] Comment on above: Performed By: #### U AMIC ####[facility] Rtosrkfubg818[address] [place], [place] [address]Dr. Lizandro Hemphill Clarity (U) CLEAR Normal CLEAR [facility] Comment on above: Performed By: #### U AMIC ####[facility] Zjcrigalrm184[address] [place], [place] [address]Dr. Lizandro Hemphill Color (U) LT. YELLOW Normal YELLOW [facility] Comment on above: Performed By: #### U AMIC ####[facility] Tcldmhclqz4840[address] [place], [place] [address]Dr. Lizandro Hemphill Crystals LM Nom (Urine sed) NONE SEEN Normal NONE SEEN [facility] Comment on above: Performed By: #### U AMIC ####[facility] Zmupfmhtyz286[address] [place], [place] [address]Dr. Lizandro Hemphill Epithelial cells LM Ql (Urine sed) NONE SEEN Normal NONE SEEN /RARE [facility] Comment on above: Performed By: #### U AMIC ####[facility] Saxzliurjd6[address] [place], [place] [id number]. Lizandro Hemphill Glucose Ql (U) 100 mg/dl Abnormal NEGATIVE [facility] Comment on above: Performed By: #### U AMIC ####[facility] Zmtbaztrxb45[address] [place] [address]Dr. Lizandro eHmphill Hemoglobin Ql (U) Negative Normal NEGATIVE The [facility] Comment on above: Performed By: #### U AMIC ####[facility] Skwzusamuz5015[address] [place], [place] [address]Dr. Shanikaannie Hemphill Ketones Ql (U) TRACE Abnormal NEGATIVE [facility] Comment on above: Performed By: #### U AMIC ####[facility] Wltyokxlxg070[address] [place], [place] [address]Dr. Lizandro Hemphill LEUKOCYTES Negative Normal NEGATIVE [facility] Comment on above: Performed By: #### U AMIC ####[facility] Ivdzsrpics8755[address] [place], [place] [address]Dr. Lizandro Hemphill MUCOUS NONE SEEN Normal NONE SEEN [facility] Comment on above: Performed By: #### U AMIC ####[facility] Qvwyyzsuyo3713[address] [place], [place] [address]Dr. Lizandro Hemphill Nitrite Ql (U) Negative Normal NEGATIVE [facility] Comment on above: Performed By: #### U AMIC ####[facility] Truvshpkae7170[address] [place], [place] [address]Dr. Lizandro Hemphill pH (U) 7.0 [pH] Normal 5-9 [facility] Comment on above: Performed By: #### U AMIC ####[facility] Kbbkgpzpeo2579[address] [place], [place] [address]Dr. Lizandro Hemphill RBC NONE SEEN Abnormal 0-2 [facility] Comment on above: Performed By: #### U AMIC ####[facility] Mwichicajq9497[address] [place], [place] [address]Dr. Lizandro Hemphill SPEC GRAVITY 1.015 Normal 1.005-<=1.025 [facility] Comment on above: Performed By: #### U AMIC ####[facility] Atnwzupdtb5212[address] [place], [place] [address]Dr. Lizandro Hemphill UA PROTEIN Negative Normal NEGATIVE/ TRACE [facility] Comment on above: Performed By: #### U AMIC ####[facility] [address]sca[address] [place] [address]Dr. Lizandro Hemphill Urobilinogen Qn (U) 0.2 {Cassy'U}/dL Normal 0.2 - 1.0 [facility] Comment on above: Performed By: #### U AMIC ####[facility] Gvwvfgwkka5797[address] [place], [place] [address]Dr. Lizandro Hemphill WBC NONE SEEN Normal NONE SEEN [facility] Comment on above: Performed By: #### U AMIC ####[facility] Qngprfxpsb774[address] [place], [place] [address]Dr. Lizandro Hemphill CBC AUTO DIFFon 07-29-2022 BASO # 0.1 103/ul Normal 0.0-0.1 [facility] Comment on above: Performed By: #### C BC ####[facility] Krkpontwyj662[address] [place], [place] [address]Dr. Lizandro Hemphill Basophils/100 WBC (Bld) 0.8 % Normal 0.2-2.0 [facility] Comment on above: Performed By: #### C BC ####[facility] Halkfbhyok889[address] [place], [place] [address]DrCiro Hemphill EO # 0.0 103/ul Normal 0.0-0.7 [facility] Comment on above: Performed By: #### C BC ####[facility] Wurkgwuuyg5489[address] [place], [place] [address]DrCiro Hemphill Eosinophils/100 WBC (Bld) 0.5 % Critically low 0.9-7.0 [facility] Comment on above: Performed By: #### C BC ####[facility] Xbqkopamcr7225[address] [place], [place] [address]DrCiro Hemphill Erythrocyte distribution width (RBC) [Ratio] 19.2 % Critically high 11.0-15.0 [facility] Comment on above: Performed By: #### C BC ####[facility] Wrpttqtfjy0825[address] [place], [place] [address]DrCiro Hemphill Hematocrit (Bld) [Volume fraction] 40.4 % Normal 36.0-48.0 [facility] Comment on above: Performed By: #### C BC ####[facility] [address]qodr[address] [place] [address]Dr. Lizandro Hemphill Hemoglobin (Bld) [Mass/Vol] 12.3 g/dL Normal 12.0-16.0 [facility] Comment on above: Performed By: #### C BC ####[facility] Eifjkckcnl3818[address] [place], [place] [address]Dr. Lizandro Hemphill IG # 0.02 10e3/ul Normal 0.00-0.03 [facility] Comment on above: Performed By: #### C BC ####[facility] Egpmvwyifg778186 [address] [place], [place] [address]Dr. Lizandro Hemphill IG % 0.2 % Normal 0.0-0.5 [facility] Comment on above: Performed By: #### C BC ####[facility] Qdzzgoddni827[address] [place], [place] [address]Dr. Lizandro Hemphill LYMPH # 1.3 103/ul Normal 1.2-3.8 [facility] Comment on above: Performed By: #### C BC ####[facility] Oenbvazgsn560[address] [place], [place] [address]Dr. Lizandro Hemphill Lymphocytes/100 WBC (Bld) 14.9 % Critically low 20.5-60.0 [facility] Comment on above: Performed By: #### C BC ####[facility] Ptcxqmdocs708[address] [place], [place] [address]Dr. Lizandro Hemphill MANUAL DIFF REQ NO Normal [facility] Comment on above: Performed By: #### C BC ####[facility] Swsnrbejto719186 [address] [place], [place] [address]Dr. Lizandro Hemphill MCH (RBC) [Entitic mass] 28.1 pg Normal 26.7-34.0 [facility] Comment on above: Performed By: #### C BC ####[facility] Fzsfzdqpib7710[address] [place], [place] [address]Dr. Lizandro Hemphill MCHC (RBC) [Mass/Vol] 30.4 g/dL Normal 29.9-35.2 [facility] Comment on above: Performed By: #### C BC ####[facility] [address]awi[address] [place] [address]Dr. Lizandro Hemphill MCV (RBC) [Entitic vol] 92.2 fL Normal 81.0-99.0 [facility] Comment on above: Performed By: #### C BC ####[facility] Odyccpnhiw4059[address] [place], [place] [address]DrCiro Hemphill MONO # 0.7 103/ul Normal 0.3-0.8 [facility] Comment on above: Performed By: #### C BC ####[facility] Elrinhcktc405[address] [place], [place] [address]DrCiro Hemphill Monocytes/100 WBC (Bld) 8.2 % Normal 1.7-12.0 [facility] Comment on above: Performed By: #### C BC ####[facility] Sdqymurrwf369[address] [place], [place] [address]Dr. Lizandro Hemphill NEUT # 6.6 103/ul Critically high 1.4-6.5 [facility] Comment on above: Performed By: #### C BC ####[facility] Ulwszqyezx777[address] [place], [place] [address]Dr. Lizandro Hemphill Neutrophils/100 WBC (Bld) 75.4 % Critically high 43.0-75.0 [facility] Comment on above: Performed By: #### C BC ####[facility] Pnmkomfacv519[address] [place], [place] [address]Dr. Lizandro Hemphill Platelet mean volume (Bld) [Entitic vol] 10.4 fL Normal 9.5-13.5 [facility] Comment on above: Performed By: #### C BC ####[facility] Nwhtfezhqe549[address] [place], [place] [address]Dr. Lizandro Hemphill PLT 316 103/ul Normal 150-450 [facility] Comment on above: Performed By: #### C BC ####[facility] Ovznsjpwsm256[address] [place], [place] [address]Dr. Lizandro Hemphill RBC 4.38 106/ul Normal 4.20-5.40 [facility] Comment on above: Performed By: #### C BC ####[facility] Gcmwvarjiy2189[address] [place], [place] [address]Dr. Lizandro Joby WBC 8.8 103/ul Normal 4.0-11.0 [facility] Comment on above: Performed By: #### C BC ####[facility] Rshomhypja6630[address] [place], [place] [address]Dr. Shanikaannie Joby LACTATE/LACTIC ACIDon 2022 Lactate [Moles/Vol] 1.0 mmol/L Normal 0.4-2.0 [facility] Comment on above: Performed By: #### L ACT ####[facility] Isevxgkjwu285[address] [place], [place] [address]Dr. Lizandro Hemphill PROF 14(COMP METB)on 023 Albumin [Mass/Vol] 3.6 g/dL Normal 3.4-5.0 [facility] Comment on above: Performed By: #### C MP ####[facility] Jtckpjjzfm3549[address] [place], [place] [address]Dr. Lizandro Hemphill Albumin/Globulin [Mass ratio] 0.9 {ratio} Normal [facility] Comment on above: Performed By: #### C MP ####[facility] Dpupecyacr8380[address] [place], [place] [address]Dr. Lizandro Hemphill ALP [Catalytic activity/Vol] 132 U/L Critically high 46-116 [facility] Comment on above: Performed By: #### C MP ####[facility] Zuquubpsld4832[address] [place], [place] [address]Dr. Lizandro Hemphill ALT [Catalytic activity/Vol] 26 U/L Normal 14-59 [facility] Comment on above: Performed By: #### C MP ####[facility] Inblxztdva015486 [address] [place], [place] [address]Dr. Lizandro Hemphill Anion gap [Moles/Vol] 17.7 mmol/L Normal [facility] Comment on above: Performed By: #### C MP ####[facility] Tysymwgcod8144[address] [place], [place] [id number]. Lizandro Hemphill AST [Catalytic activity/Vol] 36 U/L Normal 15-37 [facility] Comment on above: Performed By: #### C MP ####[facility] Enaelbfaad[address] [place] [address]Dr. Lizandro Hemphill Bilirubin [Mass/Vol] 0.4 mg/dL Normal 0.2-1.0 [facility] Comment on above: Performed By: #### C MP ####[facility] Qoskwnfmdw168[address] [place], [place] [address]Dr. Lizandro Hemphill Calcium [Mass/Vol] 9.2 mg/dL Normal 8.5-10.1 [facility] Comment on above: Performed By: #### C MP ####[facility] Wdxgrzuxnw6412[address] [place], [place] [address]Dr. Lizandro Joby Chloride [Moles/Vol] 102 mmol/L Normal 98-107 [facility] Comment on above: Performed By: #### C MP ####[facility] Vlugvsrjie7285[address] [place], [place] [address]Dr. Lizandro Hemphill CO2 [Moles/Vol] 20.1 mmol/L Critically low 21.0-32.0 [facility] Comment on above: Performed By: #### C MP ####[facility] Bljvbirqcu3088[address] [place], [place] [address]Dr. Lizandro Joby Creatinine [Mass/Vol] 1.00 mg/dL Normal 0.55-1.02 [facility] Comment on above: Performed By: #### C MP ####[facility] Ahbltfrotg658[address] [place], [place] [address]Dr. Lizandro Joby EGFR-AF SOMALI >60 Normal >=60 The [facility] Comment on above: Performed By: #### C MP ####[facility] Vbdlajmrnk3015[address] [place], [place] [address]Dr. Shanikaannie Joby EGFR-NON AF SOMALI 57 mL/min/1.73m2 Critically low >=60 [facility] Comment on above: Performed By: #### C MP ####[facility] Mscyubvpku550[address] [place], [place] [address]Dr. Lizandro Hemphill Globulin (S) [Mass/Vol] 4.1 g/dL Normal [facility] Comment on above: Performed By: #### C MP ####[facility] Njdnftuswk3639[address] [place], [place] [address]Dr. Lizandro Hemphill Glucose [Mass/Vol] 79 mg/dL Normal 74-106 [facility] Comment on above: Performed By: #### C MP ####[facility] Jropaustwl114[address] [place], [place] [address]Dr. Lizandro Hemphill Potassium [Moles/Vol] 2.6 mmol/L Critically low 3.5-5.1 [facility] Comment on above: Performed By: #### C MP ####[facility] Ousczzkxfg108[address] [place], [place] [address]Dr. Lizandro Hemphill Protein [Mass/Vol] 7.7 g/dL Normal 6.4-8.2 [facility] Comment on above: Performed By: #### C MP ####[facility] Tfebshpzxa6385[address] [place], [place] [address]Dr. Lizandro Hemphill Sodium [Moles/Vol] 126 mmol/L Critically low 136-145 [facility] Comment on above: Performed By: #### C MP ####[facility] Gphricxbkv0430[address] [place], [place] [address]Dr. Lizandro Hemphill Urea nitrogen [Mass/Vol] 15.0 mg/dL Normal 7.0-18.0 [facility] Comment on above: Performed By: #### C MP ####[facility] Muuqkhtubk014[address] [place], [place] [address]Dr. Lizandro Hemphill Urea nitrogen/Creatinin e [Mass ratio] 15.0 mg/mg Normal [facility] Comment on above: Performed By: #### C MP ####[facility] Kusgpmlspo397[address] [place], [place] [address]Dr. Lizandro Hemphill PROTIMEon 07-29-2022 INR Coag (PPP) [Relative time] 0.99 {INR} Normal [facility] Comment on above: Performed By: #### P T, PTT ####[facility] Tmzezqcsxr974[address] [place], [place] [address]DrCiro Hemphill INR GUIDELINES SEE BELOW Normal [facility] Comment on above: Result Comment: GUEVARA RED INR: 2.0 - 3.0 CONDITIONS NOT LISTED BELOW 2.5 - 3.5 FOR PROSTHETIC HEART VALVE REPLACEMENT 2.5 - 3.5 RECURRENT THROMBOSIS Performed By: #### P T, PTT ####[facility] Giemtqpudq0057[address] [place], [place] [address]Dr. Lizandro Hemphill PT Coag (PPP) [Time] 10.5 s Normal 9.0-11.6 [facility] Comment on above: Performed By: #### P T, PTT ####[facility] Pmpsucafly9630[address] [place], [place] [address]DrCiro Hemphill PTTon 07-29-2022 aPTT Coag (Bld) [Time] 29.1 s Normal 22.3-36.2 [facility] Comment on above: Performed By: #### P T, PTT ####[facility] Tygdtoaugy[address] [place], [place] [address]DrCiro Hemphill XR KNEE LT 4V or >on 023 XR KNEE LT 4V or > Normal [facility] XR PELVIS 1_2 VIEWSon 2022 XR PELVIS 1_2 VIEWS Normal [facility] CBC AUTO DIFFon 06-28-2022 BASO # 0.0 103/ul Normal 0.0-0.1 [facility] Comment on above: Performed By: #### C BC ####[facility] Iosowgvkio2412[address] [place], [place] [address]DrCiro Hemphill Basophils/100 WBC (Bld) 0.2 % Normal 0.2-2.0 [facility] Comment on above: Performed By: #### C BC ####[facility] Qggbczgntk9717[address] [place], [place] [address]DrCiro Hemphill EO # 0.0 103/ul Normal 0.0-0.7 [facility] Comment on above: Performed By: #### C BC ####[facility] Axxcvbptmz9112[address] [place], [place] [address]DrCiro Hemphill Eosinophils/100 WBC (Bld) 0.0 % Critically low 0.9-7.0 [facility] Comment on above: Performed By: #### C BC ####[facility] Hgszsyjwfv6085[address] [place], [place] [address]Dr. Lizandro Hemphill Erythrocyte distribution width (RBC) [Ratio] 19.2 % Critically high 11.0-15.0 [facility] Comment on above: Performed By: #### C BC ####[facility] Xndeygkdbz255[address] [place], [place] [address]Dr. Lizandro Hemphill Hematocrit (Bld) [Volume fraction] 34.1 % Critically low 36.0-48.0 [facility] Comment on above: Performed By: #### C BC ####[facility] Rkcdvrqcip8534[address] [place], [place] [address]Dr. Lizandro Hemphill Hemoglobin (Bld) [Mass/Vol] 10.7 g/dL Critically low 12.0-16.0 [facility] Comment on above: Performed By: #### C BC ####[facility] Ztxpwlbzsa0900[address] [place], [place] [address]Dr. Lizandro Hemphill IG # 0.02 10e3/ul Normal 0.00-0.03 [facility] Comment on above: Performed By: #### C BC ####[facility] Opqzeavimz906[address] [place], [place] [address]Dr. Lizandro Hemphill IG % 0.3 % Normal 0.0-0.5 [facility] Comment on above: Performed By: #### C BC ####[facility] Iyvbamfqdh097[address] [place], [place] [address]Dr. Lizandro Hemphill LYMPH # 0.4 103/ul Critically low 1.2-3.8 [facility] Comment on above: Performed By: #### C BC ####[facility] Vqbeyggngd604[address] [place], [place] [address]Dr. Lizandro Hemphill Lymphocytes/100 WBC (Bld) 6.5 % Critically low 20.5-60.0 [facility] Comment on above: Performed By: #### C BC ####[facility] Ahunrmpnby67[address] [place], [place] [address]Dr. Lizandro Hemphill MANUAL DIFF REQ YES Normal [facility] Comment on above: Result Comment: Prev iously reported as: NO On 06/28/2022 05:01 By KD3 Performed By: #### C BC ####[facility] [address] [place] [address]Dr. Lizandro Hemphill MCH (RBC) [Entitic mass] 27.2 pg Normal 26.7-34.0 [facility] Comment on above: Performed By: #### C BC ####[facility] Kgjllcgfqb[address] [place] [address]Dr. Lizandro Hemphill MCHC (RBC) [Mass/Vol] 31.4 g/dL Normal 29.9-35.2 [facility] Comment on above: Performed By: #### C BC ####[facility] Oow[address]rhxvdq[address] [place] [address]Dr. Lizandro Hemphill MCV (RBC) [Entitic vol] 86.8 fL Normal 81.0-99.0 [facility] Comment on above: Performed By: #### C BC ####[facility] [address]owju[address] [place] [address]Dr. Lizandro Hemphill MONO # 0.0 103/ul Critically low 0.3-0.8 [facility] Comment on above: Performed By: #### C BC ####[facility] Qemwimpkdr[address] [place] [address]Dr. Lizandro Hemphill Monocytes/100 WBC (Bld) 0.5 % Critically low 1.7-12.0 [facility] Comment on above: Performed By: #### C BC ####[facility] Gykznqxvfx[address] [place] [address]Dr. Lizandro Hemphill NEUT # 5.6 103/ul Normal 1.4-6.5 [facility] Comment on above: Performed By: #### C BC ####[facility] Jlitecmofp[address] [place] [address]Dr. Lizandro Hemphill Neutrophils/100 WBC (Bld) 92.5 % Critically high 43.0-75.0 [facility] Comment on above: Performed By: #### C BC ####[facility] Ifzsrnxdte25[address] [place] [address]Dr. Lizandro Hemphill Platelet mean volume (Bld) [Entitic vol] 10.5 fL Normal 9.5-13.5 [facility] Comment on above: Performed By: #### C BC ####[facility] Frlfslglil[address] [place] [address]Dr. Lizandro Hemphill PLT 213 103/ul Normal 150-450 [facility] Comment on above: Performed By: #### C BC ####[facility] Pegxlvpxpe[address] [place], [place] [address]Dr. Lizandro Hemphill RBC 3.93 106/ul Critically low 4.20-5.40 [facility] Comment on above: Performed By: #### C BC ####[facility] Ujvkzdgsgp75[address] [place], [place] [address]Dr. Lizandro Joby WBC 6.0 103/ul Normal 4.0-11.0 [facility] Comment on above: Performed By: #### C BC ####[facility] Gdnmhirstk8[address] [place], [place] [address]Dr. Lizandro Hemphill CBC W MANUAL DIFFon 06-29-19 23 ATYPICAL LYMPH # Normal The [facility] Comment on above: Performed By: #### C BCMAN ####[facility] [address]bfhbefj[address] [place], [place] [address]Dr. Lizandro Hemphill ATYPICAL LYMPH % Normal The [facility] Comment on above: Performed By: #### C BCMAN ####[facility] Ntyhbhudwm[address] [place], [place] [address]Dr. Lizandro Hemphill BAND # 0.0 103/ul Normal 0.0-0.3 [facility] Comment on above: Performed By: #### C BCMAN ####[facility] Lpglhxevhn88[address] [place], [place] [address]Dr. Shanikaannie Joby BAND % 0 % Normal 0-5 [facility] Comment on above: Performed By: #### C BCMAN ####[facility] Cdqzofkfkx[address] [place], [place] [address]Dr. Lizandro Hemphill BASOM # 0.00 103/ul Normal 0.00-0.10 [facility] Comment on above: Performed By: #### C BCMAN ####[facility] Szbquzauod70[address] [place] [address]Dr. Lizandro Hemphill BASOM % 0.0 % Critically low 0.2-2.0 The [facility] Comment on above: Performed By: #### C BCMAN ####[facility] Ixyueperfm4930 [place] [address]Dr. Lizandro Hemphill BLAST # Normal [facility] Comment on above: Performed By: #### C BCMAN ####[facility] Izhcxslzco06[address] [place], [place] [address]Dr. Lizandro Hemphill BLAST % Normal [facility] Comment on above: Performed By: #### C BCMARÍA ####[facility] Apsxlbqaxl[address] [place], [place] [address]Dr. Lizandro Hemphill CORRECTED WBC Normal 4.0-11.0 [facility] Comment on above: Performed By: #### C BCMAN ####[facility] Vdijrbdxdt10[address] [place], [place] [address]Dr. Lizandro Hemphill EOS # 0.00 103/ul Normal 0.00-0.70 [facility] Comment on above: Performed By: #### C BCMAN ####[facility] Gajckzjpjd28[address] [place], [place] [address]Dr. Lizandro Hemphill EOS% 0.0 % Critically low 0.9-7.0 The [facility] Comment on above: Performed By: #### C BCMAN ####[facility] Dzpqneenjc[address] [place], [place] [address]Dr. Lizandro Hemphill HCT 34.1 % Critically low 36.0-48.0 [facility] Comment on above: Performed By: #### C BCMAN ####[facility] Vwrwxwbgho95[address] [place], [place] [address]Dr. Lizandro Hemphill HGB 10.7 g/dl Critically low 12.0-16.0 [facility] Comment on above: Performed By: #### C BCMAN ####[facility] Qmjsxzrgfs8624 [place], [place] [address]Gz. Lizandro Hemphill LYMPHM # 0.54 103/ul Critically low 1.20-3.80 The [facility] Comment on above: Performed By: #### C DERRELL ####[facility] Ivfpdgfoqa0862 [place], [place] [address]Pk. Lizandro Hemphill LYMPHM% 9.0 % Critically low 20.5-60.0 [facility] Comment on above: Performed By: #### C DERRELL ####[facility] Wvzwxkitzr1489 [place], [place] [address]Yi. Lizandro Hemphill MCH 27.2 pg Normal 26.7-34.0 [facility] Comment on above: Performed By: #### C DERRELL ####[facility] Awhgheuibw5685 [place], [place] [address]Ht. Lizandro Hemphill MCHC 31.4 g/dl Normal 29.9-35.2 [facility] Comment on above: Performed By: #### C DERRELL ####[facility] Ccslfgwrzv2556 [place] [id number]. Lizandro Hemphill MCV 86.8 fL Normal 81.0-99.0 [facility] Comment on above: Performed By: #### C DERRELL ####[facility] Hjlprwmizv2293 [place], [place] [address]Xs. Lizandro Hemphill METAMYELOCYTE # Normal [facility] Comment on above: Performed By: #### C DERRELL ####[facility] Ukzfdkdjtm4372 [place], [place] [address]Qi. Lizandro Hemphill METAMYELOCYTE % Normal [facility] Comment on above: Performed By: #### C DERRELL ####[facility] Gchjavincr3810 [place] [id number]. Lizandro Hemphill MONOM# 0.12 103/ul Critically low 0.30-0.80 [facility] Comment on above: Performed By: #### C DERRELL ####[facility] Nyzyohefen1675 [place] [id number]. Lizandro Hemphill MONOM% 2.0 % Normal 1.7-12.0 [facility] Comment on above: Performed By: #### C DERRELL ####[facility] Rktkcjdttu9975 [place] [id number]. Lizandro Hemphill MPV 10.5 fL Normal 9.5-13.5 [facility] Comment on above: Performed By: #### C DERRELL ####[facility] Hydvchevsh6155 [place] [id number]. Lizandro Hemphill MYELOCYTE # Normal [facility] Comment on above: Performed By: #### C DERRELL ####[facility] Pkshqumsgi1325 [place], [place] [address]Fm. Lizandro Hemphill MYELOCYTE % Normal [facility] Comment on above: Performed By: #### C DERRELL ####[facility] Nkmssndeha8102 [place] [id number]. Lizandro Hemphill NRBC Normal [facility] Comment on above: Performed By: #### C DERRELL ####[facility] Ifemcptwby2524 [place] [id number]. Lizandro Hemphill PLT 213 103/ul Normal 150-450 [facility] Comment on above: Performed By: #### C DERRELL ####[facility] Jgfgzxfcph1904 [place] [id number]. Lizandro Hemphill RBC 3.93 106/ul Critically low 4.20-5.40 [facility] Comment on above: Performed By: #### C DERRELL ####[facility] Kyzdrlpcfp7923 [place] [id number]. Lizandro Hemphill RDW 19.2 % Critically high 11.0-15.0 The [facility] Comment on above: Performed By: #### C DERRLEL ####[facility] Jaffdgnuqg7501 [place] [id number]. Lizandro Hemphill SEG # 5.34 103/ul Normal 1.40-6.50 [facility] Comment on above: Performed By: #### C DERRELL ####[facility] Xjcctedehr2625 [place] [id number]. Lizandro Hemphill SEG % 89.0 % Critically high 43.0-75.0 [facility] Comment on above: Performed By: #### C BCMAN ####[facility] Ntduuwlijy8973 [place] [address]Dr. Lizandro Hemphill WBC 6.0 103/ul Normal 4.0-11.0 [facility] Comment on above: Performed By: #### C BCMAN ####[facility] Aspmjgmawd0544 [place] [address]Dr. Lizandro Hemphill CRPon 06-28-2022 CRP 0.1 mg/dL Normal <=1.0 [facility] Comment on above: Performed By: #### C RP, CMP ####[facility] Qlrtpmqmxm0341 [place] [address]Dr. Lizandro Hemphill PROF 14(COMP METB)on 023 Albumin [Mass/Vol] 2.8 g/dL Critically low 3.4-5.0 [facility] Comment on above: Performed By: #### C RP, CMP ####[facility] Totbdolvnq6443 [place] [address]Dr. Lizandro Hemphill Albumin/Globulin [Mass ratio] 0.8 {ratio} Normal [facility] Comment on above: Performed By: #### C RP, CMP ####[facility] Ipxqcfwnaj9983 [place] [address]Dr. Lizandro Hemphill ALP [Catalytic activity/Vol] 129 U/L Critically high 46-116 [facility] Comment on above: Performed By: #### C RP, CMP ####[facility] Dnitddhcsf3605 [place] [address]Dr. Lizandro Hemphill ALT [Catalytic activity/Vol] 47 U/L Normal 14-59 [facility] Comment on above: Performed By: #### C RP, CMP ####[facility] Rpmfonuogv2961 [place] [address]Dr. Lizandro Hemphill Anion gap [Moles/Vol] 11.7 mmol/L Normal [facility] Comment on above: Performed By: #### C RP, CMP ####[facility] Tennzrylcd823[address] [place], [place] [address]Dr. Lizandro Hemphill AST [Catalytic activity/Vol] 13 U/L Critically low 15-37 [facility] Comment on above: Performed By: #### C RP, CMP ####[facility] Loyhnrchhl8071 [place] [address]Dr. Lizandro Hemphill Bilirubin [Mass/Vol] 0.1 mg/dL Critically low 0.2-1.0 [facility] Comment on above: Performed By: #### C RP, CMP ####[facility] Xckxvmtqxs109[address] [place], [place] [address]Dr. Lizandro Hemphill Calcium [Mass/Vol] 8.3 mg/dL Critically low 8.5-10.1 [facility] Comment on above: Performed By: #### C RP, CMP ####[facility] Lghzbmvgjg24[address] [place], [place] [address]Dr. Lizandro Hemphill Chloride [Moles/Vol] 106 mmol/L Normal 98-107 [facility] Comment on above: Performed By: #### C RP, CMP ####[facility] Zlywkggfis0136[address] [place], [place] [address]Dr. Lizandro Hemphill CO2 [Moles/Vol] 26.0 mmol/L Normal 21.0-32.0 The [facility] Comment on above: Performed By: #### C RP, CMP ####[facility] Xnqjtxsaey412[address] [place], [place] [address]Dr. Lizandro Hemphill Creatinine [Mass/Vol] 0.80 mg/dL Normal 0.55-1.02 [facility] Comment on above: Performed By: #### C RP, CMP ####[facility] Wokcibrxrz9264[address] [place], [place] [address]Dr. Lizandro Hemphill EGFR-AF SOMALI >60 Normal >=60 The [facility] Comment on above: Performed By: #### C RP, CMP ####[facility] Zcncscjydz67[address] [place], [place] [address]Dr. Lizandro Hemphill EGFR-NON AF SOMALI >60 Normal >=60 [facility] Comment on above: Performed By: #### C RP, CMP ####[facility] Hehzbflndh3904[address] [place], [place] [address]Dr. Lizandro Hemphill Globulin (S) [Mass/Vol] 3.4 g/dL Normal [facility] Comment on above: Performed By: #### C RP, CMP ####[facility] Gkactqapvk7024 [place] [address]Dr. Lizandro Hemphill Glucose [Mass/Vol] 164 mg/dL Critically high 74-106 [facility] Comment on above: Performed By: #### C RP, CMP ####[facility] Ncjmxbkqdb0903 [place] [address]Dr. Lizandro Hemphill Potassium [Moles/Vol] 3.5 mmol/L Normal 3.5-5.1 [facility] Comment on above: Performed By: #### C RP, CMP ####[facility] Csnnhkdtsp2910 [place] [address]Dr. Lizandro Hemphill Protein [Mass/Vol] 6.2 g/dL Critically low 6.4-8.2 [facility] Comment on above: Performed By: #### C RP, CMP ####[facility] Fxhmfrpeir9942 [place] [address]Dr. Lizandro Hemphill Sodium [Moles/Vol] 140 mmol/L Normal 136-145 [facility] Comment on above: Performed By: #### C RP, CMP ####[facility] Yappmefmqo0186 [place] [address]Dr. Lizandro Hemphill Urea nitrogen [Mass/Vol] 13.0 mg/dL Normal 7.0-18.0 [facility] Comment on above: Performed By: #### C RP, CMP ####[facility] Cjsnelauxb0793 [place] [address]Dr. Lizandro Hemphill Urea nitrogen/Creatinin e [Mass ratio] 16.2 mg/mg Normal [facility] Comment on above: Performed By: #### C RP, CMP ####[facility] Mouilffuwa3088 [place] [address]Dr. Lizandro Hemphill PROTIMEon 06-28-2022 INR Coag (PPP) [Relative time] 1.39 {INR} Normal [facility] Comment on above: Performed By: #### P T ####[facility] Zbtvyqrkri5218 [place] [address]Dr. Lizandro Hemphill INR GUIDELINES SEE BELOW Normal [facility] Comment on above: Result Comment: GUEVARA RED INR: 2.0 - 3.0 CONDITIONS NOT LISTED BELOW 2.5 - 3.5 FOR PROSTHETIC HEART VALVE REPLACEMENT 2.5 - 3.5 RECURRENT THROMBOSIS Performed By: #### P T ####[facility] Ruviqslqjc74[address] [place], [place] [address]Dr. Lizandro Hemphill PT Coag (PPP) [Time] 14.5 s Critically high 9.0-11.6 [facility] Comment on above: Performed By: #### P T ####[facility] Bncbdgzkav1418[address] [place], [place] [address]Dr. Lizandro Hemphill CBC AUTO DIFFon 06-27-2022 BASO # 0.1 103/ul Normal 0.0-0.1 [facility] Comment on above: Performed By: #### C BC ####[facility] Fbdnrknofl916[address] [place], [place] [address]Dr. Lizandro Hemphill Basophils/100 WBC (Bld) 1.1 % Normal 0.2-2.0 [facility] Comment on above: Performed By: #### C BC ####[facility] Nvsiezbprr9895[address] [place], [place] [address]Dr. Lizandro Hemphill EO # 0.1 103/ul Normal 0.0-0.7 [facility] Comment on above: Performed By: #### C BC ####[facility] Xsulfjmwcs0430[address] [place], [place] [address]Dr. Lizandro Hemphill Eosinophils/100 WBC (Bld) 1.3 % Normal 0.9-7.0 [facility] Comment on above: Performed By: #### C BC ####[facility] Howsuvdvse620[address] [place], [place] [address]Dr. Lizandro Hemphill Erythrocyte distribution width (RBC) [Ratio] 19.8 % Critically high 11.0-15.0 [facility] Comment on above: Performed By: #### C BC ####[facility] Ucixehfrpz4794 [place] [address]Dr. Lizandro Hemphill Hematocrit (Bld) [Volume fraction] 34.4 % Critically low 36.0-48.0 [facility] Comment on above: Performed By: #### C BC ####[facility] Oydjcuiqkw1292 [place] [address]Dr. Shanikaannie Hemphill Hemoglobin (Bld) [Mass/Vol] 11.1 g/dL Critically low 12.0-16.0 [facility] Comment on above: Performed By: #### C BC ####[facility] Ssrxqhjbcy4922[address] [place], [place] [address]Dr. Lizandro Hemphill IG # 0.01 10e3/ul Normal 0.00-0.03 [facility] Comment on above: Performed By: #### C BC ####[facility] Wxpxltrqki958[address] [place], [place] [address]Dr. Lizandro Hemphill IG % 0.2 % Normal 0.0-0.5 [facility] Comment on above: Performed By: #### C BC ####[facility] Xmnrrjlcyn3769[address] [place], [place] [address]Dr. Shanikaannie Hemphill LYMPH # 1.3 103/ul Normal 1.2-3.8 [facility] Comment on above: Performed By: #### C BC ####[facility] Flhjtmjmxc9449[address] [place], [place] [address]Dr. Lizandro Hemphill Lymphocytes/100 WBC (Bld) 24.6 % Normal 20.5-60.0 [facility] Comment on above: Performed By: #### C BC ####[facility] Asibrwmtau0855[address] [place], [place] [address]Dr. Lizandro Hemphill MANUAL DIFF REQ NO Normal [facility] Comment on above: Performed By: #### C BC ####[facility] Kgtaqpdkav344[address] [place], [place] [address]DrCiro Hemphill MCH (RBC) [Entitic mass] 27.4 pg Normal 26.7-34.0 [facility] Comment on above: Performed By: #### C BC ####[facility] Biitaisjsb354186 [address] [place], [place] [address]Dr. Lizandro Hemphill MCHC (RBC) [Mass/Vol] 32.3 g/dL Normal 29.9-35.2 [facility] Comment on above: Performed By: #### C BC ####[facility] Frrzpddple6593 [place] [id number]. Lizandro Hemphill MCV (RBC) [Entitic vol] 84.9 fL Normal 81.0-99.0 [facility] Comment on above: Performed By: #### C BC ####[facility] Fchkxselho9934 [place] [address]Dr. Lizandro Joby MONO # 0.8 103/ul Normal 0.3-0.8 [facility] Comment on above: Performed By: #### C BC ####[facility] Aziuatbtfx9201 [place] [address]Dr. Lizandro Hemphill Monocytes/100 WBC (Bld) 13.9 % Critically high 1.7-12.0 [facility] Comment on above: Performed By: #### C BC ####[facility] Utaltauxnp8932[address] [place], [place] [address]Dr. Shanikaannie Joby NEUT # 3.2 103/ul Normal 1.4-6.5 [facility] Comment on above: Performed By: #### C BC ####[facility] Hmoegiszqd4307 [place] [address]Dr. Lizandro Joby Neutrophils/100 WBC (Bld) 58.9 % Normal 43.0-75.0 [facility] Comment on above: Performed By: #### C BC ####[facility] Hxcybmonoa1894 [place] [address]Dr. Lizandro Joby Platelet mean volume (Bld) [Entitic vol] 10.6 fL Normal 9.5-13.5 [facility] Comment on above: Performed By: #### C BC ####[facility] Aqhjagdppw8626 [place] [address]Dr. Shanikaannie Joby PLT 228 103/ul Normal 150-450 [facility] Comment on above: Performed By: #### C BC ####[facility] Yvkcgmglfp0007 [place] [address]Dr. Shanikaannie Hemphill RBC 4.05 106/ul Critically low 4.20-5.40 [facility] Comment on above: Performed By: #### C BC ####[facility] Xswmcxlzvd4161 [place] [address]Dr. Shanikaannie Hemphill WBC 5.4 103/ul Normal 4.0-11.0 [facility] Comment on above: Performed By: #### C BC ####[facility] Kbvozvhign9354 [place] [address]Dr. Shanikaannie Joby CRPon 06-27-2022 CRP [Mass/Vol] mg/L Normal <=1.0 [facility] [place] Comment on above: Performed By: #### C RP, CMP ####[facility] Zmnqvyuyol4470 [place] [address]Dr. Lizandro Hemphill PROF 14(COMP METB)on 023 Albumin [Mass/Vol] 2.9 g/dL Critically low 3.4-5.0 [facility] Comment on above: Performed By: #### C RP, CMP ####[facility] Nqtkiwbgha8316 [place] [address]Dr. Lizandro Hemphill Albumin/Globulin [Mass ratio] 0.9 {ratio} Normal [facility] Comment on above: Performed By: #### C RP, CMP ####[facility] Qewnuhgohp4838 [place] [address]Dr. Lizandro Hemphill ALP [Catalytic activity/Vol] 144 U/L Critically high 46-116 [facility] Comment on above: Performed By: #### C RP, CMP ####[facility] Todqoaymhm3771 [place] [address]Dr. Lizandro Hemphill ALT [Catalytic activity/Vol] 52 U/L Normal 14-59 [facility] Comment on above: Performed By: #### C RP, CMP ####[facility] Wqogigppqa7293 [place] [address]Dr. Lizandro Hemphill Anion gap [Moles/Vol] 11.5 mmol/L Normal [facility] Comment on above: Performed By: #### C RP, CMP ####[facility] Dsvpcmlybj5393 [place] [id number]. Lizandro Hemphill AST [Catalytic activity/Vol] 26 U/L Normal 15-37 [facility] Comment on above: Performed By: #### C RP, CMP ####[facility] Ruuqpafvcr1773 [place] [id number]. Lizandro Hemphill Bilirubin [Mass/Vol] 0.3 mg/dL Normal 0.2-1.0 [facility] Comment on above: Performed By: #### C RP, CMP ####[facility] Yulyrwslhv5216 [place] [address]Dr. Lizandro Hemphill Calcium [Mass/Vol] 8.4 mg/dL Critically low 8.5-10.1 [facility] Comment on above: Performed By: #### C RP, CMP ####[facility] Dpaizrxkko6[address] [place], [place] [address]Dr. Lizandro Hemphill Chloride [Moles/Vol] 106 mmol/L Normal 98-107 [facility] Comment on above: Performed By: #### C RP, CMP ####[facility] Tixxngbakw75[address] [place], [place] [address]Dr. Lizandro Hemphill CO2 [Moles/Vol] 28.2 mmol/L Normal 21.0-32.0 The [facility] Comment on above: Performed By: #### C RP, CMP ####[facility] Vicalzwqcv0645[address] [place], [place] [address]Dr. Lizandro Hemphill Creatinine [Mass/Vol] 0.72 mg/dL Normal 0.55-1.02 [facility] Comment on above: Performed By: #### C RP, CMP ####[facility] Cdsmeknowb7303 [place] [address]Dr. Lizandro Hemphill EGFR-AF SOMALI >60 Normal >=60 The [facility] Comment on above: Performed By: #### C RP, CMP ####[facility] Paqmojcmyr3[address] [place], [place] [id number]. Lizandro Hemphill EGFR-NON AF SOMALI >60 Normal >=60 [facility] Comment on above: Performed By: #### C RP, CMP ####[facility] Vmdkqncmfz565[address] [place], [place] [address]Dr. Lizandro Hemphill Globulin (S) [Mass/Vol] 3.3 g/dL Normal [facility] Comment on above: Performed By: #### C RP, CMP ####[facility] Qawpxvbfbb2336[address] [place], [place] [address]Dr. Lizandro Hemphill Glucose [Mass/Vol] 89 mg/dL Normal 74-106 [facility] Comment on above: Performed By: #### C RP, CMP ####[facility] Ocpokxcdqq185986 [address] [place], [place] [address]Dr. Lizandro Hemphill Potassium [Moles/Vol] 3.7 mmol/L Normal 3.5-5.1 [facility] Comment on above: Performed By: #### C RP, CMP ####[facility] Durliwdkqu112[address] [place], [place] [address]Dr. Lizandro Hemphill Protein [Mass/Vol] 6.2 g/dL Critically low 6.4-8.2 [facility] Comment on above: Performed By: #### C RP, CMP ####[facility] Npetckaxzk1467[address] [place], [place] [address]Dr. Lizandro Hemphill Sodium [Moles/Vol] 142 mmol/L Normal 136-145 [facility] Comment on above: Performed By: #### C RP, CMP ####[facility] Yuypblxbyy297186 [address] [place], [place] [address]Dr. Lizandro Hemphill Urea nitrogen [Mass/Vol] 13.0 mg/dL Normal 7.0-18.0 [facility] Comment on above: Performed By: #### C RP, CMP ####[facility] Zubfxdolih7127[address] [place], [place] [address]Dr. Lizandro Hemphill Urea nitrogen/Creatinin e [Mass ratio] 18.1 mg/mg Normal [facility] Comment on above: Performed By: #### C RP, CMP ####[facility] Kblzdkfmdz9529[address] [place], [place] [address]Dr. Lizandro Hemphill PROTIMEon 06-27-2022 INR Coag (PPP) [Relative time] 1.20 {INR} Normal [facility] Comment on above: Performed By: #### P T ####[facility] Kitwbcdxjb7768 [place] [address]Dr. Lizandro Hemphill INR GUIDELINES SEE BELOW Normal [facility] Comment on above: Result Comment: GUEVARA RED INR: 2.0 - 3.0 CONDITIONS NOT LISTED BELOW 2.5 - 3.5 FOR PROSTHETIC HEART VALVE REPLACEMENT 2.5 - 3.5 RECURRENT THROMBOSIS Performed By: #### P T ####[facility] Swrdqrxael116[address] [place], [place] [address]Dr. Lizandro Hemphill PT Coag (PPP) [Time] 12.6 s Critically high 9.0-11.6 [facility] Comment on above: Performed By: #### P T ####[facility] Qlfltbvssk5409[address] [place], [place] [address]Dr. Lizandro Hemphill AMYLASEon 06-26-2022 Amylase [Catalytic activity/Vol] 73 U/L Normal 25-115 [facility] Comment on above: Performed By: #### C MP, ALICIA, LIPA ####[facility] Rofmentxbv226[address] [place], [place] [address]Dr. Lizandro Hemphill CBC AUTO DIFFon 06-26-2022 BASO # 0.1 103/ul Normal 0.0-0.1 [facility] Comment on above: Performed By: #### C BC ####[facility] Woayytools768[address] [place], [place] [address]Dr. Lizandro Hemphill Basophils/100 WBC (Bld) 0.9 % Normal 0.2-2.0 [facility] Comment on above: Performed By: #### C BC ####[facility] Exrmlxhqhd4311[address] [place], [place] [address]Dr. Lizandro Hemphill EO # 0.0 103/ul Normal 0.0-0.7 [facility] Comment on above: Performed By: #### C BC ####[facility] Rkkujfmewx748[address] [place], [place] [address]Dr. Lizandro Hemphill Eosinophils/100 WBC (Bld) 0.1 % Critically low 0.9-7.0 [facility] Comment on above: Performed By: #### C BC ####[facility] Zkrvsajtnn8643 [place] [address]Dr. Lizandro Hemphill Erythrocyte distribution width (RBC) [Ratio] 19.8 % Critically high 11.0-15.0 [facility] Comment on above: Performed By: #### C BC ####[facility] Uxzqxovxyt7648 [place] [address]Dr. Lizandro Hemphill Hematocrit (Bld) [Volume fraction] 39.1 % Normal 36.0-48.0 [facility] Comment on above: Performed By: #### C BC ####[facility] Xcowjkogpk6101[address] [place], [place] [address]Dr. Lizandro Hemphill Hemoglobin (Bld) [Mass/Vol] 12.6 g/dL Normal 12.0-16.0 [facility] Comment on above: Performed By: #### C BC ####[facility] Atrexzevfk175[address] [place], [place] [address]Dr. Lizandro Hemphill IG # 0.04 10e3/ul Critically high 0.00-0.03 [facility] Comment on above: Performed By: #### C BC ####[facility] Lvcqoppswp6744[address] [place], [place] [address]Dr. Lizandro Hemphill IG % 0.5 % Normal 0.0-0.5 [facility] Comment on above: Performed By: #### C BC ####[facility] Vvxmcwpesg4214[address] [place], [place] [address]Dr. Lizandro Hemphill LYMPH # 1.0 103/ul Critically low 1.2-3.8 [facility] [place] Comment on above: Performed By: #### C BC ####[facility] Ttvfpixixo8427[address] [place], [place] [address]Dr. Lizandro Hemphill Lymphocytes/100 WBC (Bld) 12.9 % Critically low 20.5-60.0 [facility] Comment on above: Performed By: #### C BC ####[facility] Lsehqfpugl[address] [place], [place] [address]Dr. Lizandro Hemphill MANUAL DIFF REQ NO Normal [facility] Comment on above: Performed By: #### C BC ####[facility] Bgnzccjwip8179 [place] [id number]. Lizandro Hemphill MCH (RBC) [Entitic mass] 27.2 pg Normal 26.7-34.0 [facility] Comment on above: Performed By: #### C BC ####[facility] Hydxbtseik6383 [place] [address]Dr. Lizandro Hemphill MCHC (RBC) [Mass/Vol] 32.2 g/dL Normal 29.9-35.2 [facility] Comment on above: Performed By: #### C BC ####[facility] Ksrwhfwubn6[address] [place], [place] [address]Dr. Lizandro Joby MCV (RBC) [Entitic vol] 84.3 fL Normal 81.0-99.0 [facility] Comment on above: Performed By: #### C BC ####[facility] Mqhnuncyxl5[address] [place], [place] [address]Dr. Shanikaannie Hemphill MONO # 0.8 103/ul Normal 0.3-0.8 [facility] Comment on above: Performed By: #### C BC ####[facility] Eqeagpvoxq5864[address] [place], [place] [address]Dr. Shanikaannie Hemphill Monocytes/100 WBC (Bld) 10.2 % Normal 1.7-12.0 [facility] Comment on above: Performed By: #### C BC ####[facility] Djdbbufamj042[address] [place], [place] [address]Dr. Lizandro Hemphill NEUT # 5.9 103/ul Normal 1.4-6.5 [facility] Comment on above: Performed By: #### C BC ####[facility] Yufzuxuuvb06[address] [place], [place] [address]Dr. Shanikaannie Hemphill Neutrophils/100 WBC (Bld) 75.4 % Critically high 43.0-75.0 [facility] Comment on above: Performed By: #### C BC ####[facility] Zbpfdymkwf[address] [place], [place] [address]Dr. Lizandro Hemphill Platelet mean volume (Bld) [Entitic vol] 10.2 fL Normal 9.5-13.5 [facility] Comment on above: Performed By: #### C BC ####[facility] Uuscpjuoud7230 [place], [place] [address]No. Lizandro Hemphill PLT 253 103/ul Normal 150-450 [facility] Comment on above: Performed By: #### C BC ####[facility] Uqpqhwzmvx4197 [place], [place] [address]By. Lizandro Hemphill RBC 4.64 106/ul Normal 4.20-5.40 [facility] Comment on above: Performed By: #### C BC ####[facility] Flgasqojzf8522 [place], [place] [address]Db. Lizandro Hemphill WBC 7.8 103/ul Normal 4.0-11.0 [facility] Comment on above: Performed By: #### C BC ####[facility] Zpzcglhhfh2194 [place], [place] [address]Ms. Lizandro Hemphill CT ABD/PELVIS WO CONon 06-26 CT ABD/PELVIS WO CON Normal [facility] Covid-19 PCR (CVDTB)on SARS-CoV-2 (COVID-19) RNA VERITO+probe Ql (Unsp spec) Not detected Normal NOT DETECTED [facility] Comment on above: Result Comment: When diagnostic [...] for this test is supported by the [place] of Health and Human Service's declaration that [...] be used). Performed By: #### C VDTBH ####[facility] Dnhwbleyap[address] [place], [place] [address]Dr. Lizandro Hemphill ER URINE PROFILEon 3 Bilirubin Ql (U) Negative Normal NEGATIVE The [facility] Comment on above: Performed By: #### E RUR ####[facility] Cdvzlnjrnl[address] [place], [place] [address]Dr. Lizandro Hemphill Clarity (U) CLEAR Normal CLEAR [facility] Comment on above: Performed By: #### E RUR ####[facility] Frispqfhvj369[address] [place], [place] [address]Dr. Lizandro Hemphill Color (U) LT. YELLOW Normal YELLOW [facility] Comment on above: Performed By: #### E RUR ####[facility] Uefcanxunp546[address] [place], [place] [address]Dr. Lizandro Hemphill ERUAHD A micrscopic examina tion will be performed if indicated. Normal [facility] Comment on above: Performed By: #### E RUR ####[facility] Ikcmbcentt35[address] [place], [place] [address]Dr. Lizandro Hemphill Glucose Ql (U) Negative Normal NEGATIVE The [facility] Comment on above: Performed By: #### E RUR ####[facility] Tystebiqqr864[address] [place], [place] [address]Dr. Lizandro Hemphill Hemoglobin Ql (U) Negative Normal NEGATIVE The [facility] Comment on above: Performed By: #### E RUR ####[facility] Cidfrdhnlb384[address] [place], [place] [address]Dr. Yilan Hemphill Ketones Ql (U) Negative Normal NEGATIVE The [facility] Comment on above: Performed By: #### E RUR ####[facility] Dlurdghzuf7899[address] [place], [place] [address]Dr. Shanikalan Hemphill LEUKOCYTES Negative Normal NEGATIVE [facility] Comment on above: Performed By: #### E RUR ####[facility] Mztxjkntar026[address] [place], [place] [address]Dr. Yilan Hemphill Nitrite Ql (U) Negative Normal NEGATIVE The [facility] Comment on above: Performed By: #### E RUR ####[facility] Lzyaveewwo22[address] [place] [address]Dr. Lizandro Hemphill pH (U) 7.5 [pH] Normal 5-9 [facility] Comment on above: Performed By: #### E RUR ####[facility] Jwwecrwply5227 [place] [address]Dr. Lizandro Hemphill SPEC GRAVITY 1.010 Normal 1.005-<=1.025 The [facility] Comment on above: Performed By: #### E RUR ####[facility] Spqaugzxml6545[address] [place], [place] [address]Dr. Lizandro Hemphill UA PROTEIN Negative Normal NEGATIVE/ TRACE [facility] Comment on above: Performed By: #### E RUR ####[facility] Ycvsmpwqyp876[address] [place], [place] [address]Dr. Lizandro Hemphill UR MICRO IND NOT INDICATED Normal The [facility] Comment on above: Performed By: #### E RUR ####[facility] Xqpdzjarjx4560[address] [place], [place] [address]Dr. Lizandro Hemphill Urobilinogen Qn (U) 0.2 {Cassy'U}/dL Normal 0.2 - 1.0 [facility] Comment on above: Performed By: #### E RUR ####[facility] Gsqszgrycc520[address] [place], [place] [address]Dr. Lizandro Hemphill LACTATE/LACTIC ACIDon 2022 Lactate [Moles/Vol] 1.3 mmol/L Normal 0.4-2.0 [facility] Comment on above: Performed By: #### L ACT ####[facility] Fbwnutuzje6520[address] [place], [place] [address]Dr. Lizandro Hemphill LIPASEon 06-26-2022 Lipase [Catalytic activity/Vol] 161.0 U/L Normal 73.0-393.0 [facility] Comment on above: Performed By: #### C MP, ALICIA, LIPA ####[facility] Clzpwdwyrn0384 [place] [address]Dr. Lizandro Hemphill PROF 14(COMP METB)on 023 Albumin [Mass/Vol] 3.9 g/dL Normal 3.4-5.0 [facility] Comment on above: Performed By: #### C ALICIA AVILA LIPA ####[facility] Xszfwqoxtg3216 [place] [address]Dr. Lizandro Hemphill Albumin/Globulin [Mass ratio] 1.0 {ratio} Normal [facility] Comment on above: Performed By: #### C MARGARITA ALICIA, LIPA ####[facility] Zukazjneix1487[address] [place], [place] [address]Dr. Lizandro Hemphill ALP [Catalytic activity/Vol] 177 U/L Critically high 46-116 [facility] Comment on above: Performed By: #### C ALICIA AVILA LIPA ####[facility] Odtwebojmm8339[address] [place], [place] [address]Dr. Lizandro Hemphill ALT [Catalytic activity/Vol] 83 U/L Critically high 14-59 [facility] Comment on above: Performed By: #### C ALICIA AVILA LIPA ####[facility] Emqpreplbq6129[address] [place], [place] [address]Dr. Shanikaannie Hemphill Anion gap [Moles/Vol] 10.7 mmol/L [facility] Comment on above: Performed By: #### C ALICIA AVILA LIPA ####[facility] Jczlrwpava625[address] [place], [place] [address]Dr. Lizandro Joby AST [Catalytic activity/Vol] 53 U/L Critically high 15-37 [facility] Comment on above: Performed By: #### C ALICIA AVILA, LIPA ####[facility] Ockfbcdail8488[address] [place], [place] [address]Dr. Lizandro Hemphill Bilirubin [Mass/Vol] 0.4 mg/dL Normal 0.2-1.0 [facility] Comment on above: Performed By: #### C ALICIA AVILA, LIPA ####[facility] Zfadwuobhj588[address] [place], [place] [address]Dr. Lizandro Hemphill Calcium [Mass/Vol] 11.2 mg/dL Critically high 8.5-10.1 [facility] Comment on above: Performed By: #### C MARGARITA ALICIA LIPA ####[facility] Vvunziwmlw58[address] [place] [address]Dr. Lizandro Hemphill Chloride [Moles/Vol] 101 mmol/L Normal 98-107 [facility] Comment on above: Performed By: #### C MARGARITA, ALICIA, LIPA ####[facility] Qeozvxbedd4565 [place] [address]Dr. Lizandro Hemphill CO2 [Moles/Vol] 29.5 mmol/L Normal 21.0-32.0 The [facility] Comment on above: Performed By: #### C MP, ALICIA, LIPA ####[facility] Cgsijycbxu3345 [place] [address]Dr. Lizandro Hemphill Creatinine [Mass/Vol] 0.79 mg/dL Normal 0.55-1.02 [facility] Comment on above: Performed By: #### C MARGARITA, ALICIA, LIPA ####[facility] Vuieesjnxe300[address] [place], [place] [address]Dr. Lizandro Hemphill EGFR-AF SOMALI >60 Normal >=60 The [facility] Comment on above: Performed By: #### C MARGARITA, ALICIA, LIPA ####[facility] Qeigvqeqxp8050[address] [place], [place] [address]Dr. Lizandro Hemphill EGFR-NON AF SOMALI >60 Normal >=60 [facility] Comment on above: Performed By: #### C MP, ALICAI, LIPA ####[facility] Sunblqvfqa3868 [place] [address]Dr. Lizandro Hemphill Globulin (S) [Mass/Vol] 4.0 g/dL Normal [facility] Comment on above: Performed By: #### C MP, ALICIA, LIPA ####[facility] Syojrhmlxk1937 [place] [address]Dr. Lizandro Hemphill Glucose [Mass/Vol] 96 mg/dL Normal 74-106 [facility] Comment on above: Performed By: #### C MP, ALICIA, LIPA ####[facility] Bdrcmdwvnz1296 [place] [address]Dr. Lizandro Hemphill Potassium [Moles/Vol] 4.2 mmol/L Normal 3.5-5.1 [facility] Comment on above: Performed By: #### C ALICIA AVILA LIPA ####[facility] Weucwysvpt1907 [place] [address]Dr. Lizandro Hemphill Protein [Mass/Vol] 7.9 g/dL Normal 6.4-8.2 [facility] Comment on above: Performed By: #### C ALICIA AVILA, LIPA ####[facility] Tcmlbfkkru3909 [place] [address]Dr. Lizandro Hemphill Sodium [Moles/Vol] 137 mmol/L Normal 136-145 [facility] Comment on above: Performed By: #### C ALICIA AVILA LIPA ####[facility] Cstgqanckk6244 [place] [address]Dr. Lizandro Hemphill Urea nitrogen [Mass/Vol] 27.0 mg/dL Critically high 7.0-18.0 [facility] Comment on above: Performed By: #### C ALICIA AVILA LIPA ####[facility] Vntlqyesad9[address] [place], [place] [address]Dr. Lizandro Hemphill Urea nitrogen/Creatinin e [Mass ratio] 34.2 mg/mg Normal [facility] Comment on above: Performed By: #### C ALICIA AVILA LIPA ####[facility] Aulxraqcel6[address] [place], [place] [address]Dr. Lizandro Hemphill PROTIMEon 06-26-2022 INR Coag (PPP) [Relative time] 1.07 {INR} Normal [facility] Comment on above: Performed By: #### P T ####[facility] Rqvqzqarhj5970[address] [place], [place] [address]Dr. Lizandro Hemphill INR GUIDELINES SEE BELOW Normal The [facility] Comment on above: Result Comment: GUEVARA RED INR: 2.0 - 3.0 CONDITIONS NOT LISTED BELOW 2.5 - 3.5 FOR PROSTHETIC HEART VALVE REPLACEMENT 2.5 - 3.5 RECURRENT THROMBOSIS Performed By: #### P T ####[facility] Xpvooffcbx6650[address] [place], [place] [address]Dr. Lizandro Hemphill PT Coag (PPP) [Time] 11.3 s Normal 9.0-11.6 [facility] Comment on above: Performed By: #### P T ####[facility] Arccmtfmov8026[address] [place], [place] [address]Dr. Lizandro Hemphill INR Coag (PPP) [Relative time] 0.96 {INR} Normal [facility] Comment on above: Performed By: #### P T ####[facility] Crselstdbm999[address] [place], [place] [address]Dr. Lizandro Hemphill INR GUIDELINES SEE BELOW Normal The [facility] Comment on above: Result Comment: GUEVARA RED INR: 2.0 - 3.0 CONDITIONS NOT LISTED BELOW 2.5 - 3.5 FOR PROSTHETIC HEART VALVE REPLACEMENT 2.5 - 3.5 RECURRENT THROMBOSIS Performed By: #### P T ####[facility] Nyrnjultic117[address] [place], [place] [address]Dr. Lizandro Hemphill PT Coag (PPP) [Time] 10.2 s Normal 9.0-11.6 [facility] Comment on above: Performed By: #### P T ####[facility] Jbgdofxdny6738[address] [place], [place] [address]Dr. Lizandro Hemphill C. DIFF PCRon 05-31-2022 C. DIFFICILE PCR Negative Normal NEGATIVE The [facility] Comment on above: Performed By: #### C DIFPOC ####[facility] Awuarrvidg6059[address] [place], [place] [address]Dr. Lizandro Hemphill CBC AUTO DIFFon 05-31-2022 BASO # 0.0 103/ul Normal 0.0-0.1 [facility] Comment on above: Performed By: #### C BC ####[facility] Lydhjbefpz29[address] [place], [place] [address]Dr. Lizandro Hemphill Basophils/100 WBC (Bld) 0.2 % Normal 0.2-2.0 [facility] Comment on above: Performed By: #### C BC ####[facility] Ryjpetiflu3745[address] [place], [place] [address]DrCiro Hemphill EO # 0.0 103/ul Normal 0.0-0.7 [facility] Comment on above: Performed By: #### C BC ####[facility] Bgyqynswzu5717 [place] [address]Dr. Lizandro Hemphill Eosinophils/100 WBC (Bld) 0.1 % Critically low 0.9-7.0 [facility] Comment on above: Performed By: #### C BC ####[facility] Kztkvmpsyk1995[address] [place], [place] [address]Dr. Lizandro Hemphill Erythrocyte distribution width (RBC) [Ratio] 19.2 % Critically high 11.0-15.0 [facility] Comment on above: Performed By: #### C BC ####[facility] Tdkcqfngme1828[address] [place], [place] [address]Dr. Lizandro Hemphill Hematocrit (Bld) [Volume fraction] 31.1 % Critically low 36.0-48.0 [facility] Comment on above: Performed By: #### C BC ####[facility] Byzupfrbdu0437[address] [place], [place] [address]Dr. Lizandro Hemphill Hemoglobin (Bld) [Mass/Vol] 10.1 g/dL Critically low 12.0-16.0 [facility] Comment on above: Performed By: #### C BC ####[facility] Dweubavbkz420[address] [place], [place] [address]Dr. Lizandro Hemphill IG # 0.07 10e3/ul Critically high 0.00-0.03 [facility] Comment on above: Performed By: #### C BC ####[facility] Tepbnyefql1338[address] [place], [place] [address]Dr. Lizandro Hemphill IG % 0.6 % Critically high 0.0-0.5 [facility] Comment on above: Performed By: #### C BC ####[facility] Ohkujoqhcn[address] [place], [place] [address]Dr. Lizandro Hemphill LYMPH # 0.6 103/ul Critically low 1.2-3.8 The [facility] Comment on above: Performed By: #### C BC ####[facility] Negpskuchx583486 [address] [place], [place] [address]Dr. Lizandro Hemphill Lymphocytes/100 WBC (Bld) 5.1 % Critically low 20.5-60.0 [facility] Comment on above: Performed By: #### C BC ####[facility] Yzvkmlephh4510 [place] [id number]. Lizandro Hemphill MANUAL DIFF REQ NO Normal The [facility] Comment on above: Performed By: #### C BC ####[facility] Mtdindpslt6125 [place] [id number]. Shanikaannie Joby MCH (RBC) [Entitic mass] 27.8 pg Normal 26.7-34.0 [facility] Comment on above: Performed By: #### C BC ####[facility] Pmporfmagu74[address] [place], [place] [id number]. Shanikaannie Joby MCHC (RBC) [Mass/Vol] 32.5 g/dL Normal 29.9-35.2 [facility] Comment on above: Performed By: #### C BC ####[facility] Ogsendrjbv7345[address] [place], [place] [address]Dr. Lizandro Hemphill MCV (RBC) [Entitic vol] 85.7 fL Normal 81.0-99.0 [facility] Comment on above: Performed By: #### C BC ####[facility] Bulzxnrayv2965[address] [place], [place] [address]Dr. Lizandro Hemphill MONO # 0.9 103/ul Critically high 0.3-0.8 [facility] Comment on above: Performed By: #### C BC ####[facility] Mordkzfhbr026[address] [place], [place] [address]Dr. Lizandro Hemphill Monocytes/100 WBC (Bld) 7.4 % Normal 1.7-12.0 [facility] Comment on above: Performed By: #### C BC ####[facility] Apdxgybbaf6376[address] [place], [place] [id number]. Lizandro Hemphill NEUT # 10.5 103/ul Critically high 1.4-6.5 The [facility] Comment on above: Performed By: #### C BC ####[facility] Ghwlxcfzul2366[address] [place], [place] [address]Dr. Lizandro Hemphill Neutrophils/100 WBC (Bld) 86.6 % Critically high 43.0-75.0 [facility] Comment on above: Performed By: #### C BC ####[facility] Fpjaofbkjn0625 [place] [address]Dr. Shanikaannie Hemphill Platelet mean volume (Bld) [Entitic vol] 10.9 fL Normal 9.5-13.5 [facility] Comment on above: Performed By: #### C BC ####[facility] Lzxfeabhwe6351 [place] [address]Dr. Shanikaannie Hemphill PLT 230 103/ul Normal 150-450 [facility] Comment on above: Performed By: #### C BC ####[facility] Gwlcjmlarp0330[address] [place], [place] [address]Dr. Shanikaannie Hemphill RBC 3.63 106/ul Critically low 4.20-5.40 [facility] Comment on above: Performed By: #### C BC ####[facility] Cbwreanlwx433[address] [place], [place] [address]Dr. Lizandro Hemphill WBC 12.1 103/ul Critically high 4.0-11.0 The [facility] Comment on above: Performed By: #### C BC ####[facility] Uehgtulfni405[address] [place], [place] [address]Dr. Lizandro Hemphill GI PANEL (PCR)on 05-31-2022 Adenovirus F 40/41 Not detected Normal NOT DETECTED [facility] Comment on above: Performed By: #### G IPANEL ####[facility] Czhobblhal3664[address] [place], [place] [address]Dr. Lizandro Hemphill Astrovirus Not detected Normal NOT DETECTED The [facility] Comment on above: Performed By: #### G IPANEL ####[facility] Jiwjwclwtg1647[address] [place], [place] [address]Dr. Lizandro Hemphill C. Diff toxin A/B Not detected Normal NOT DETECTED [facility] Comment on above: Performed By: #### G IPANEL ####[facility] Tuvstraang2275[address] [place], [place] [address]Dr. Lizandro Hemphill Campylobacter Not detected Normal NOT DETECTED The [facility] Comment on above: Performed By: #### G IPANEL ####[facility] Zofdauaows6749[address] [place], [place] [address]Dr. Lizandro Hemphill Cryptosporidium Not detected Normal NOT DETECTED The [facility] Comment on above: Performed By: #### G IPANEL ####[facility] Amspbowzrd715[address] [place], [place] [address]Dr. Lizandro Hemphill Cyclos. Cayetanensis Not detected Normal NOT DETECTED [facility] Comment on above: Performed By: #### G IPANEL ####[facility] Oogqqclcni5528[address] [place], [place] [address]Dr. Lizandro Hemphill E. Coli O157 Not Applicable Normal Not Applicable [facility] Comment on above: Performed By: #### G IPANEL ####[facility] Qqswytuehx95668[address] [place], [place] [address]Dr. Lizandro Hemphill E. histolytica Not detected Normal NOT DETECTED The [facility] Comment on above: Performed By: #### G IPANEL ####[facility] Pslqlnrkbd785[address] [place], [place] [address]Dr. Lizandro Hemphill EAEC Not detected Normal NOT DETECTED The [facility] Comment on above: Performed By: #### G IPANEL ####[facility] Iuyzaoawrx456[address] [place], [place] [address]Dr. Lizandro Hemphill EIEC Not detected Normal NOT DETECTED The [facility] Comment on above: Performed By: #### G IPANEL ####[facility] Qglbzodbbb5612[address] [place], [place] [address]Dr. Lizandro Hemphill EPEC Not detected Normal NOT DETECTED The [facility] Comment on above: Performed By: #### G IPANEL ####[facility] Vuyaqhvfdb354[address] [place], [place] [address]Dr. Lizandro Hemphill ETEC Not detected Normal NOT DETECTED The [facility] Comment on above: Performed By: #### G IPANEL ####[facility] Kmitgomhoy044[address] [place], [place] [address]Dr. Lizandro Hemphill G. Lamblia Not detected Normal NOT DETECTED The [facility] Comment on above: Performed By: #### G IPANEL ####[facility] Vloxnikyil487[address] [place], [place] [address]Dr. Lizandro Hemphill GIPANEL CONTROLS PASSED Normal The [facility] Comment on above: Performed By: #### G IPANEL ####[facility] Mwlokocbis9552 [place] [id number]. Lizandro Hemphill GIPNL CARIE HEADER GI PANEL BACTERIA Normal T [facility] Comment on above: Performed By: #### G IPANEL ####[facility] Lnwvwjfoid8048 [place] [id number]. Lizandro Hemphill GIPFRANCESHD ECOLI GI PANEL DIARRHEAGEN IC E.COLI / SHIGELLA Normal [facility] Comment on above: Performed By: #### G IPANEL ####[facility] Dakqxfbvej2476 [place] [address]Dr. Lizandro Hemphill GIPNLHD INFO SEE BELOW Normal [facility] Comment on above: Result Comment: EAEC - Enteroaggregative E. Coli EPEC- Enteropathogenic E. Coli ETEC- Enterotoxigenic E. Coli lt/st STEC- Shigella-like toxin-producing E. Coli stx1/stx2 EIEC- Shigella/Enteroinvasive E. Coli Performed By: #### G IPANEL ####[facility] Ybewxyflid444[address] [place], [place] [address]Dr. Lizandro Hemphill GIPNLHD PARASITES GI PANEL PARASITES Normal [facility] Comment on above: Performed By: #### G IPANEL ####[facility] Bqtejxqwhr608[address] [place], [place] [address]Dr. Lizandro Hemphill GIPNLHD VIRUS GI PANEL VIRUSES Normal The [facility] Comment on above: Performed By: #### G IPANEL ####[facility] Txaudfeyzm2747[address] [place], [place] [address]Dr. Lizandro Hemphill Norovirus GI/GII Not detected Normal NOT DETECTED [facility] Comment on above: Performed By: #### G IPANEL ####[facility] Nbrbuzdnhh654[address] [place], [place] [address]Dr. Lizandro Hemphill P. Shigelloides Not detected Normal NOT DETECTED [facility] Comment on above: Performed By: #### G IPANEL ####[facility] Fpcgzhdxds0511[address] [place], [place] [address]Dr. Lizandro Hemphill Rotavirus A Not detected Normal NOT DETECTED The [facility] Comment on above: Performed By: #### G IPANEL ####[facility] Lgqxucubnm314[address] [place], [place] [address]Dr. Lizandro Hemphill Salmonella Not detected Normal NOT DETECTED The [facility] Comment on above: Performed By: #### G IPANEL ####[facility] Tdqwfkkpsd2501[address] [place], [place] [address]Dr. Lizandro Hemphill Sapovirus Not detected Normal NOT DETECTED The [facility] Comment on above: Performed By: #### G IPANEL ####[facility] Nvdxjuslai6[address] [place], [place] [address]Dr. Lizandro Hemphill STEC Not detected Normal NOT DETECTED The [facility] Comment on above: Performed By: #### G IPANEL ####[facility] Jlnonjeanu725[address] [place], [place] [address]Dr. Lizandro Hemphill Vibrio Not detected Normal NOT DETECTED The [facility] Comment on above: Performed By: #### G IPANEL ####[facility] Olezfbgrnp6379[address] [place], [place] [address]Dr. Lizandro Hemphill Vibrio Cholera Not detected Normal NOT DETECTED The [facility] Comment on above: Performed By: #### G IPANEL ####[facility] Fgcuuzenvs449[address] [place], [place] [address]Dr. Lizandro Hemphill Y. Enterocolitica Not detected Normal NOT DETECTED [facility] Comment on above: Performed By: #### G IPANEL ####[facility] Feujvjhdwk512[address] [place], [place] [address]Dr. Lizandro Hemphill PROF 14(COMP METB)on 023 Albumin [Mass/Vol] 2.4 g/dL Critically low 3.4-5.0 [facility] Comment on above: Performed By: #### C MP ####[facility] Ordbfxuqsq685[address] [place], [place] [address]Dr. Lizandro Hemphill Albumin/Globulin [Mass ratio] 0.9 {ratio} Normal [facility] Comment on above: Performed By: #### C MP ####[facility] Kcuykemsqu6245[address] [place], [place] [address]Dr. Lizandro Hemphill ALP [Catalytic activity/Vol] 77 U/L Normal 46-116 [facility] Comment on above: Performed By: #### C MP ####[facility] Guatsdfowv6488 [place] [address]Dr. Lizandro Hemphill ALT [Catalytic activity/Vol] 20 U/L Normal 14-59 [facility] Comment on above: Performed By: #### C MP ####[facility] Aijosucaok9317[address] [place], [place] [address]Dr. Lizandro Hemphill Anion gap [Moles/Vol] 10.9 mmol/L Normal [facility] Comment on above: Performed By: #### C MP ####[facility] Rqkwdspyfv6667[address] [place], [place] [address]Dr. Lizandro Hemphill AST [Catalytic activity/Vol] 15 U/L Normal 15-37 [facility] Comment on above: Performed By: #### C MP ####[facility] Yjduraqyvx33[address] [place], [place] [address]Dr. Lizandro Hemphill Bilirubin [Mass/Vol] 0.2 mg/dL Normal 0.2-1.0 [facility] Comment on above: Performed By: #### C MP ####[facility] Smyfkmdrsb67[address] [place], [place] [address]Dr. Lizandro Hemphill Calcium [Mass/Vol] 7.8 mg/dL Critically low 8.5-10.1 Th [facility] Comment on above: Performed By: #### C MP ####[facility] Gvfgzmohaf75[address] [place], [place] [address]Dr. Lizandro Hemphill Chloride [Moles/Vol] 106 mmol/L Normal 98-107 [facility] Comment on above: Performed By: #### C MP ####[facility] Cqtljueuye12[address] [place], [place] [address]Dr. Lizandro Hemphill CO2 [Moles/Vol] 25.3 mmol/L Normal 21.0-32.0 The [facility] Comment on above: Performed By: #### C MP ####[facility] Uzaccbtsag708[address] [place], [place] [address]Dr. Lizandro Hemphill Creatinine [Mass/Vol] 1.07 mg/dL Critically high 0.55-1.02 [facility] Comment on above: Performed By: #### C MP ####[facility] Yrcacfbnix5[address] [place] [id number]. Lizandro Hemphill EGFR-AF SOMALI >60 Normal >=60 [facility] Comment on above: Performed By: #### C MP ####[facility] Fkeyxpelnl1314 [place] [id number]. Lizandro Joby EGFR-NON AF SOMALI 52 mL/min/1.73m2 Critically low >=60 [facility] Comment on above: Performed By: #### C MP ####[facility] Ocsaxyyhty3117 [place] [id number]. Lizandro Joby Globulin (S) [Mass/Vol] 2.8 g/dL Normal [facility] Comment on above: Performed By: #### C MP ####[facility] Zmfghixrsm2707 [place] [address]Dr. Shanikaannie Joby Glucose [Mass/Vol] 254 mg/dL Critically high 74-106 [facility] Comment on above: Performed By: #### C MP ####[facility] Ooxzksbeif2197 [place] [id number]. Shanikaannie Joby Potassium [Moles/Vol] 3.2 mmol/L Critically low 3.5-5.1 [facility] Comment on above: Performed By: #### C MP ####[facility] Njeusboxgu5348 [place] [id number]. Shanikaannie Joby Protein [Mass/Vol] 5.2 g/dL Critically low 6.4-8.2 Th [facility] Comment on above: Performed By: #### C MP ####[facility] Dyfyr[address]ixi[address] [place] [id number]. Shanikaannie Joby Sodium [Moles/Vol] 139 mmol/L Normal 136-145 [facility] Comment on above: Performed By: #### C MP ####[facility] Jbucyjijzw28[address] [place] [id number]. Shanikaannie Joby Urea nitrogen [Mass/Vol] 9.0 mg/dL Normal 7.0-18.0 [facility] Comment on above: Performed By: #### C MP ####[facility] Ztzsqtdwpe[address] [place], [place] [address]Dr. Lizandro Hemphill Urea nitrogen/Creatinin e [Mass ratio] 8.4 mg/mg Normal [facility] Comment on above: Performed By: #### C MP ####[facility] Wsuadodipk67[address] [place], [place] [address]Dr. Lizandro Hemphill PROTIMEon 05-31-2022 INR Coag (PPP) [Relative time] 1.94 {INR} Normal [facility] Comment on above: Performed By: #### P T ####[facility] Gjsvfnlbcc59[address] [place], [place] [address]Dr. Lizandro Hemphill INR GUIDELINES SEE BELOW Normal [facility] Comment on above: Result Comment: GUEVARA RED INR: 2.0 - 3.0 CONDITIONS NOT LISTED BELOW 2.5 - 3.5 FOR PROSTHETIC HEART VALVE REPLACEMENT 2.5 - 3.5 RECURRENT THROMBOSIS Performed By: #### P T ####[facility] Txhjttveai555[address] [place], [place] [address]Dr. Lizandro Hemphill PT Coag (PPP) [Time] 19.8 s Critically high 9.0-11.6 [facility] Comment on above: Performed By: #### P T ####[facility] Ldzasszwnt628[address] [place], [place] [address]Dr. Lizandro Hemphill CBC AUTO DIFFon 05-30-2022 BASO # 0.0 103/ul Normal 0.0-0.1 [facility] Comment on above: Performed By: #### C BC ####[facility] Thqnvjuqwz8559[address] [place], [place] [address]Dr. Lizandro Hemphill Basophils/100 WBC (Bld) 0.3 % Normal 0.2-2.0 [facility] Comment on above: Performed By: #### C BC ####[facility] Beiohekzej4913[address] [place], [place] [address]Dr. Lizandro Hemphill EO # 0.0 103/ul Normal 0.0-0.7 [facility] Comment on above: Performed By: #### C BC ####[facility] Gphnqeusdd9[address] [place] [id number]. Lizandro Hemphill Eosinophils/100 WBC (Bld) 0.0 % Critically low 0.9-7.0 [facility] Comment on above: Performed By: #### C BC ####[facility] Mtnmsljutc0[address] [place] [address]Dr. Lizandro Hemphill Erythrocyte distribution width (RBC) [Ratio] 19.2 % Critically high 11.0-15.0 [facility] Comment on above: Performed By: #### C BC ####[facility] Kxkvqnoqmb799[address] [place], [place] [address]Dr. Lizandro Hemphill Hematocrit (Bld) [Volume fraction] 35.5 % Critically low 36.0-48.0 [facility] Comment on above: Performed By: #### C BC ####[facility] Gsdvdxuccu930[address] [place], [place] [address]Dr. Lizandro Hemphill Hemoglobin (Bld) [Mass/Vol] 11.3 g/dL Critically low 12.0-16.0 [facility] Comment on above: Performed By: #### C BC ####[facility] Nastazdoje[address] [place], [place] [address]Dr. Lizandro Hemphill IG # 0.03 10e3/ul Normal 0.00-0.03 [facility] Comment on above: Performed By: #### C BC ####[facility] Envibzrikj4749[address] [place], [place] [address]Dr. Lizandro Hemphill IG % 0.4 % Normal 0.0-0.5 [facility] Comment on above: Performed By: #### C BC ####[facility] Yzcrciklyn415[address] [place], [place] [address]Dr. Lizandro Hemphill LYMPH # 0.3 103/ul Critically low 1.2-3.8 [facility] Comment on above: Performed By: #### C BC ####[facility] Sqdxkcivnk019[address] [place], [place] [address]Dr. Lizandro Hemphill Lymphocytes/100 WBC (Bld) 3.9 % Critically low 20.5-60.0 [facility] Comment on above: Performed By: #### C BC ####[facility] Rvsxaqftmo[address] [place] [phone]. Lizandro Hemphill MANUAL DIFF REQ NO Normal [facility] Comment on above: Performed By: #### C BC ####[facility] Nmnrkakgyf55[address] [place] [phone]. Lizandro Hemphill MCH (RBC) [Entitic mass] 26.9 pg Normal 26.7-34.0 [facility] Comment on above: Performed By: #### C BC ####[facility] Ofllfexvct4[address] [place] [phone]. Lizandro Hemphill MCHC (RBC) [Mass/Vol] 31.8 g/dL Normal 29.9-35.2 [facility] Comment on above: Performed By: #### C BC ####[facility] Egbcnlygnx88[address] [place] [address]Dr. Lizandro Hemphill MCV (RBC) [Entitic vol] 84.5 fL Normal 81.0-99.0 [facility] Comment on above: Performed By: #### C BC ####[facility] Lxltbdslow3[address] [place], [place] [id number]. Lizandro Hemphill MONO # 0.1 103/ul Critically low 0.3-0.8 [facility] Comment on above: Performed By: #### C BC ####[facility] Lrfrikrylt7985[address] [place], [place] [address]Dr. Lizandro Hemphill Monocytes/100 WBC (Bld) 1.0 % Critically low 1.7-12.0 [facility] Comment on above: Performed By: #### C BC ####[facility] Lqshezrdbk110[address] [place] [phone]. Lizandro Hemphill NEUT # 6.5 103/ul Normal 1.4-6.5 [facility] Comment on above: Performed By: #### C BC ####[facility] Ucrvwrzane6553 [place] [phone]. Lizandro Hemphill Neutrophils/100 WBC (Bld) 94.4 % Critically high 43.0-75.0 [facility] Comment on above: Performed By: #### C BC ####[facility] Wjduyvvqlo6[address] [place] [address]Dr. Lizandro Hemphill Platelet mean volume (Bld) [Entitic vol] 10.3 fL Normal 9.5-13.5 [facility] Comment on above: Performed By: #### C BC ####[facility] Zlusyfbahr[address] [place] [address]Dr. Lizandro Hemphill PLT 248 103/ul Normal 150-450 [facility] Comment on above: Performed By: #### C BC ####[facility] Aprkdkukmx6817 [place] [address]Dr. Lizandro Hemphill RBC 4.20 106/ul Normal 4.20-5.40 [facility] Comment on above: Performed By: #### C BC ####[facility] Elyvraivqo7727[address] [place], [place] [address]Dr. Lizandro Hemphill WBC 6.9 103/ul Normal 4.0-11.0 [facility] Comment on above: Performed By: #### C BC ####[facility] Oavarfmpir9507[address] [place], [place] [address]Dr. Lizandro Hemphill CT ABD/PELV W CONon 05-31-[address] ABD/PELV W CON Normal [facility] PRBC LEUKOREDUCEDon 05-31-19 23 PRBC LEUKOREDUCED Normal [facility] Comment on above: Performed By: #### P RBC ####[facility] Duqnwebfnp2347[address] [place], [place] [address]DrCiro Hemphill PROF 14(COMP METB)on 023 Albumin [Mass/Vol] 2.8 g/dL Critically low 3.4-5.0 [facility] Comment on above: Performed By: #### C MP ####[facility] Wdcbtgxyse[address] [place], [place] [address]DrCiro Hemphill Albumin/Globulin [Mass ratio] 0.8 {ratio} Normal [facility] Comment on above: Performed By: #### C MP ####[facility] Rpzyecqfwu8814[address] [place], [place] [address]Dr. Lizandro Hemphill ALP [Catalytic activity/Vol] 100 U/L Normal 46-116 [facility] Comment on above: Performed By: #### C MP ####[facility] Ixvklcncke6[address] [place] [address]Dr. Lizandro Hemphill ALT [Catalytic activity/Vol] 28 U/L Normal 14-59 [facility] Comment on above: Performed By: #### C MP ####[facility] Zdxwegxfls757[address] [place], [place] [address]Dr. Lizandro Joby Anion gap [Moles/Vol] 11.5 mmol/L Normal [facility] Comment on above: Performed By: #### C MP ####[facility] Nuimgftjhz7314[address] [place], [place] [address]Dr. Lizandro Joby AST [Catalytic activity/Vol] 23 U/L Normal 15-37 [facility] Comment on above: Performed By: #### C MP ####[facility] Fekfrwlave639[address] [place], [place] [address]Dr. Lizandro Joby Bilirubin [Mass/Vol] 0.3 mg/dL Normal 0.2-1.0 [facility] Comment on above: Performed By: #### C MP ####[facility] Szrgvqzdwh6[address] [place], [place] [address]Dr. Lizandro Joby Calcium [Mass/Vol] 8.4 mg/dL Critically low 8.5-10.1 [facility] Comment on above: Performed By: #### C MP ####[facility] Hvhawhzbgg0280[address] [place], [place] [address]Dr. Lizandro Joby Chloride [Moles/Vol] 105 mmol/L Normal 98-107 [facility] Comment on above: Performed By: #### C MP ####[facility] Hvxqofofvi275[address] [place], [place] [address]Dr. Lizandro Joby CO2 [Moles/Vol] 30.5 mmol/L Normal 21.0-32.0 The [facility] Comment on above: Performed By: #### C MP ####[facility] Ajjujddrwc5900[address] [place], [place] [address]Dr. Lizandro Hemphill Creatinine [Mass/Vol] 0.93 mg/dL Normal 0.55-1.02 [facility] Comment on above: Performed By: #### C MP ####[facility] Oldwyrzowl[address] [place] [address]Dr. Lizandro Hemphill EGFR-AF SOMALI >60 Normal >=60 [facility] Comment on above: Performed By: #### C MP ####[facility] Ajgibkpdpr5[address] [place] [phone]. Lizandro Joby EGFR-NON AF SOMALI >60 Normal >=60 [facility] Comment on above: Performed By: #### C MP ####[facility] Nzojyzetmi8[address] [place] [address]Dr. Lizandro Joby Globulin (S) [Mass/Vol] 3.4 g/dL Normal [facility] Comment on above: Performed By: #### C MP ####[facility] Ycbkcpgckt8354 [place] [address]Dr. Lizandro Hemphill Glucose [Mass/Vol] 177 mg/dL Critically high 74-106 [facility] Comment on above: Performed By: #### C MP ####[facility] Eyevyuobie57[address] [place] [address]Dr. Lizandro Joby Potassium [Moles/Vol] 4.0 mmol/L Normal 3.5-5.1 [facility] Comment on above: Performed By: #### C MP ####[facility] Odbfgpzyqo4857 [place] [address]Dr. Lizandro Hemphill Protein [Mass/Vol] 6.2 g/dL Critically low 6.4-8.2 [facility] Comment on above: Performed By: #### C MP ####[facility] Odtdlsjsfn1415 [place] [address]Dr. Lizandro Hemphill Sodium [Moles/Vol] 143 mmol/L Normal 136-145 [facility] Comment on above: Performed By: #### C MP ####[facility] Fnxygpdorp3304 [place] [phone]. Lizandro Joby Urea nitrogen [Mass/Vol] 10.0 mg/dL Normal 7.0-18.0 [facility] Comment on above: Performed By: #### C MP ####[facility] Gtktiiulsh462[address] [place], [place] [address]Dr. Lizandro Hemphill Urea nitrogen/Creatinin e [Mass ratio] 10.8 mg/mg Normal [facility] Comment on above: Performed By: #### C MP ####[facility] Rqiuubvrry4588[address] [place], [place] [address]Dr. Lizandro Hemphill PROTIMEon 05-30-2022 INR Coag (PPP) [Relative time] 1.24 {INR} Normal [facility] Comment on above: Performed By: #### P T ####[facility] Boqyopsnoc5[address] [place], [place] [address]Dr. Lizandro Hemphill INR GUIDELINES SEE BELOW Normal [facility] Comment on above: Result Comment: GUEVARA RED INR: 2.0 - 3.0 CONDITIONS NOT LISTED BELOW 2.5 - 3.5 FOR PROSTHETIC HEART VALVE REPLACEMENT 2.5 - 3.5 RECURRENT THROMBOSIS Performed By: #### P T ####[facility] Nrtcvfijxh0689[address] [place], [place] [address]Dr. Lizandro Hemphill PT Coag (PPP) [Time] 13.0 s Critically high 9.0-11.6 [facility] Comment on above: Performed By: #### P T ####[facility] Zeacwmvcer19[address] [place], [place] [address]Dr. Lizandro Hemphill CBC AUTO DIFFon 05-29-2022 BASO # 0.0 103/ul Normal 0.0-0.1 [facility] Comment on above: Performed By: #### C BC ####[facility] Iggbuuxmfm601[address] [place], [place] [address]Dr. Lizandro Hemphill Basophils/100 WBC (Bld) 0.3 % Normal 0.2-2.0 [facility] Comment on above: Performed By: #### C BC ####[facility] Rwbqqwvoki513[address] [place], [place] [address]Dr. Lizandro Hemphill EO # 0.1 103/ul Normal 0.0-0.7 [facility] Comment on above: Performed By: #### C BC ####[facility] Hzdvcadkkw7204 [place] [phone]. Lizandro Hemphill Eosinophils/100 WBC (Bld) 0.6 % Critically low 0.9-7.0 [facility] Comment on above: Performed By: #### C BC ####[facility] Uqemsjwvhx7[address] [place] [address]Dr. Lizandro Hemphill Erythrocyte distribution width (RBC) [Ratio] 19.1 % Critically high 11.0-15.0 [facility] Comment on above: Performed By: #### C BC ####[facility] Bocnpstthj397[address] [place], [place] [address]Dr. Lizandro Hemphill Hematocrit (Bld) [Volume fraction] 34.1 % Critically low 36.0-48.0 [facility] Comment on above: Performed By: #### C BC ####[facility] Xloyaodcaa716[address] [place], [place] [address]Dr. Lizandro Hemphill Hemoglobin (Bld) [Mass/Vol] 10.9 g/dL Critically low 12.0-16.0 [facility] Comment on above: Performed By: #### C BC ####[facility] Drghjrmszq7267[address] [place], [place] [address]Dr. Lizandro Hemphill IG # 0.04 10e3/ul Critically high 0.00-0.03 [facility] Comment on above: Performed By: #### C BC ####[facility] Creubzvtrg2589[address] [place], [place] [address]Dr. Lizandro Hemphill IG % 0.5 % Normal 0.0-0.5 [facility] Comment on above: Performed By: #### C BC ####[facility] Hhmazdhycy4457[address] [place], [place] [address]Dr. Lizandro Hemphill LYMPH # 0.9 103/ul Critically low 1.2-3.8 [facility] Comment on above: Performed By: #### C BC ####[facility] Vchfwkrhhf317[address] [place], [place] [address]Dr. Lizandro Hemphill Lymphocytes/100 WBC (Bld) 10.5 % Critically low 20.5-60.0 [facility] Comment on above: Performed By: #### C BC ####[facility] Abquwwqhfl4325 [place] [phone]. Lizandro Hemphill MANUAL DIFF REQ NO Normal [facility] Comment on above: Performed By: #### C BC ####[facility] Melyvalkqu0020 [place] [phone]. Lizandro Hemphill MCH (RBC) [Entitic mass] 26.7 pg Normal 26.7-34.0 [facility] Comment on above: Performed By: #### C BC ####[facility] Fyhpgndeii5224 [place] [phone]. Lizandro Hemphill MCHC (RBC) [Mass/Vol] 32.0 g/dL Normal 29.9-35.2 [facility] Comment on above: Performed By: #### C BC ####[facility] Usvsefafhv3609[address] [place], [place] [address]Dr. Lizandro Hemphill MCV (RBC) [Entitic vol] 83.6 fL Normal 81.0-99.0 [facility] Comment on above: Performed By: #### C BC ####[facility] Xvoshnclfq047[address] [place], [place] [id number]. Lizandro Hemphill MONO # 0.9 103/ul Critically high 0.3-0.8 [facility] Comment on above: Performed By: #### C BC ####[facility] Ejygbhdkkb1300[address] [place], [place] [address]Dr. Lizandro Hemphill Monocytes/100 WBC (Bld) 10.1 % Normal 1.7-12.0 [facility] Comment on above: Performed By: #### C BC ####[facility] Bjjjorqqdy9[address] [place], [place] [id number] Hemphill NEUT # 6.9 103/ul Critically high 1.4-6.5 [facility] Comment on above: Performed By: #### C BC ####[facility] Qrwvefdvlx799264 [address] [place], [place] [id number]. Lizandro Hemphill Neutrophils/100 WBC (Bld) 78.0 % Critically high 43.0-75.0 [facility] Comment on above: Performed By: #### C BC ####[facility] Fpuslgngld2646 [place] [address]Dr. Shanikaannie oJby Platelet mean volume (Bld) [Entitic vol] 11.3 fL Normal 9.5-13.5 [facility] Comment on above: Performed By: #### C BC ####[facility] Dhnpetryfx1968 [place] [address]Dr. Lizandro Hemphill PLT 196 103/ul Normal 150-450 [facility] Comment on above: Performed By: #### C BC ####[facility] Ncjypipyrq3711 [place] [address]Dr. Lizandro Hemphill RBC 4.08 106/ul Critically low 4.20-5.40 [facility] Comment on above: Performed By: #### C BC ####[facility] Xseqijmurh610[address] [place], [place] [address]Dr. Lizandro Hemphill WBC 8.8 103/ul Normal 4.0-11.0 [facility] Comment on above: Performed By: #### C BC ####[facility] Yxjupkrpyz332[address] [place], [place] [address]DrCiro Hemphill CT ABD/PELVIS WO CONon 05-29 CT ABD/PELVIS WO CON Normal [facility] CULTURE URINEon 05-29-2022 CULTURE URINE Culture Observations : NO GROWTH. Normal [facility] Comment on above: Performed By: #### U RCX ####[facility] Qxkzestbau0711[address] [place], [place] [address]DrCiro Hemphill PROF 14(COMP METB)on 023 Albumin [Mass/Vol] 2.8 g/dL Critically low 3.4-5.0 [facility] Comment on above: Performed By: #### C MP ####[facility] Zudaiamcvo4139[address] [place], [place] [address]DrCiro Hemphill Albumin/Globulin [Mass ratio] 0.9 {ratio} Normal [facility] Comment on above: Performed By: #### C MP ####[facility] Mesuccuwhl24[address] [place], [place] [id number]. Lizandro Hemphill ALP [Catalytic activity/Vol] 97 U/L Normal 46-116 [facility] Comment on above: Performed By: #### C MP ####[facility] Opvmpmfwln7805 [place] [address]Dr. Lizandro Hemphill ALT [Catalytic activity/Vol] 32 U/L Normal 14-59 [facility] Comment on above: Performed By: #### C MP ####[facility] Lnugfhahek793[address] [place], [place] [address]Dr. Lizandro Joby Anion gap [Moles/Vol] 10.6 mmol/L Normal [facility] Comment on above: Performed By: #### C MP ####[facility] Tbaebqqavq020[address] [place], [place] [address]Dr. Lizandro Joby AST [Catalytic activity/Vol] 32 U/L Normal 15-37 [facility] Comment on above: Performed By: #### C MP ####[facility] Kzhvlqeqhi0555[address] [place], [place] [address]Dr. Lizandro Joby Bilirubin [Mass/Vol] 0.4 mg/dL Normal 0.2-1.0 [facility] Comment on above: Performed By: #### C MP ####[facility] Kiukirdkya889[address] [place], [place] [address]Dr. Lizandro Joby Calcium [Mass/Vol] 8.3 mg/dL Critically low 8.5-10.1 [facility] Comment on above: Performed By: #### C MP ####[facility] Glbmsudkuu1614[address] [place], [place] [address]Dr. Lizandro Joby Chloride [Moles/Vol] 103 mmol/L Normal 98-107 [facility] Comment on above: Performed By: #### C MP ####[facility] Oduybeqznb004[address] [place], [place] [address]Dr. Lizandro Hemphill CO2 [Moles/Vol] 31.5 mmol/L Normal 21.0-32.0 The [facility] Comment on above: Performed By: #### C MP ####[facility] Bkgvkrcgah372[address] [place], [place] [address]Dr. Lizandro Hemphill Creatinine [Mass/Vol] 0.83 mg/dL Normal 0.55-1.02 [facility] Comment on above: Performed By: #### C MP ####[facility] Glfofwxyqz9433 [place] [phone]. Lizandro Hemphill EGFR-AF SOMALI >60 Normal >=60 [facility] Comment on above: Performed By: #### C MP ####[facility] Vrefpqurqw0225 [place] [phone]. Lizandro Hemphill EGFR-NON AF SOMALI >60 Normal >=60 [facility] Comment on above: Performed By: #### C MP ####[facility] Ipppramodh9596 [place] [phone]. Lizandro Hemphill Globulin (S) [Mass/Vol] 3.2 g/dL Normal [facility] Comment on above: Performed By: #### C MP ####[facility] Qajratixxs3306 [place] [address]Dr. Lizandro Hemphill Glucose [Mass/Vol] 120 mg/dL Critically high 74-106 [facility] Comment on above: Performed By: #### C MP ####[facility] Ijlwlostjt2791 [place] [phone]. Lizandro Hemphill Potassium [Moles/Vol] 3.1 mmol/L Critically low 3.5-5.1 [facility] Comment on above: Performed By: #### C MP ####[facility] Ahokphewfd8239 [place] [phone]. Lizandro Joby Protein [Mass/Vol] 6.0 g/dL Critically low 6.4-8.2 [facility] Comment on above: Performed By: #### C MP ####[facility] Rcahohblxj0288 [place] [phone]. Lizandro Hemphill Sodium [Moles/Vol] 142 mmol/L Normal 136-145 [facility] Comment on above: Performed By: #### C MP ####[facility] Cgvjxyjsbi9684 [place] [phone]. Lizandro Joby Urea nitrogen [Mass/Vol] 8.0 mg/dL Normal 7.0-18.0 [facility] Comment on above: Performed By: #### C MP ####[facility] Khlqwnhgfq328[address] [place], [place] [address]DrCiro Hemphill Urea nitrogen/Creatinin e [Mass ratio] 9.6 mg/mg Normal [facility] Comment on above: Performed By: #### C MP ####[facility] Pnunhivndi32[address] [place], [place] [address]DrCiro Hemphill PROTIMEon 05-29-2022 INR Coag (PPP) [Relative time] 1.11 {INR} Normal [facility] Comment on above: Performed By: #### P T ####[facility] Oqgjqsnbvp8469[address] [place], [place] [address]DrCiro Hemphill INR GUIDELINES SEE BELOW Normal [facility] Comment on above: Result Comment: GUEVARA RED INR: 2.0 - 3.0 CONDITIONS NOT LISTED BELOW 2.5 - 3.5 FOR PROSTHETIC HEART VALVE REPLACEMENT 2.5 - 3.5 RECURRENT THROMBOSIS Performed By: #### P T ####[facility] Hqrdoqmkwx8[address] [place], [place] [address]Dr. Lizandro Hemphill PT Coag (PPP) [Time] 11.7 s Critically high 9.0-11.6 [facility] Comment on above: Performed By: #### P T ####[facility] Nxovrbsqkg2010[address] [place], [place] [address]Dr. Lizandro Hemphill UA RANDOM W/MICROSCOPICon BACTERIA NONE SEEN Normal NONE SEEN [facility] Comment on above: Performed By: #### U AMIC ####[facility] Zxwvscotgj505[address] [place], [place] [address]Dr. Lizandro Hemphill Bilirubin Ql (U) Negative Normal NEGATIVE The [facility] Comment on above: Performed By: #### U AMIC ####[facility] Snqgoueqhx717[address] [place], [place] [address]DrCiro Hemphill CAST NONE SEEN Normal NONE SEEN [facility] Comment on above: Performed By: #### U AMIC ####[facility] Yjqhmudgmc514[address] [place], [place] [address]DrCiro Hemphill Clarity (U) CLEAR Normal CLEAR [facility] Comment on above: Performed By: #### U AMIC ####[facility] Uhdjpiqxmf2117 [place] [address]Dr. Lizandro Hemphill Color (U) LT. YELLOW Normal YELLOW [facility] Comment on above: Performed By: #### U AMIC ####[facility] Goibpnqdvj0950 [place] [address]Dr. Lizandro Hemphill Crystals LM Nom (Urine sed) NONE SEEN Normal NONE SEEN [facility] Comment on above: Performed By: #### U AMIC ####[facility] Oukoochqwh2867 [place] [address]Dr. Lizandro Hemphill Epithelial cells LM Ql (Urine sed) NONE SEEN Normal NONE SEEN /RARE [facility] Comment on above: Performed By: #### U AMIC ####[facility] Vfofvnfyuz2824 [place] [address]Dr. Lizandro Hemphill Glucose Ql (U) Negative Normal NEGATIVE [facility] Comment on above: Performed By: #### U AMIC ####[facility] Bryxviycfx099[address] [place], [place] [address]Dr. Lizandro Hemphill Hemoglobin Ql (U) Negative Normal NEGATIVE The [facility] Comment on above: Performed By: #### U AMIC ####[facility] Exlayrmsyr3990 [place] [address]Dr. Lizandro Hemphill Ketones Ql (U) Negative Normal NEGATIVE [facility] Comment on above: Performed By: #### U AMIC ####[facility] Lhdphvoose7013 [place] [address]Dr. Lizandro Hemphill LEUKOCYTES Negative Normal NEGATIVE [facility] Comment on above: Performed By: #### U AMIC ####[facility] Embqzsnszz464[address] [place], [place] [address]Dr. Lizandro Hemphill MUCOUS NONE SEEN Normal NONE SEEN [facility] Comment on above: Performed By: #### U AMIC ####[facility] Udygscmgms8258 [place] [address]Dr. Lizandro Hemphill Nitrite Ql (U) Negative Normal NEGATIVE [facility] Comment on above: Performed By: #### U AMIC ####[facility] Rnkqofsiln8208 [place] [address]Dr. Lizandro Hemphill pH (U) 7.5 [pH] Normal 5-9 [facility] Comment on above: Performed By: #### U AMIC ####[facility] Dwvftjvino1069 [place] [address]Dr. Lizandro Joby RBC NONE SEEN Abnormal 0-2 [facility] Comment on above: Performed By: #### U AMIC ####[facility] Djfwckmfqy5154 [place] [address]Dr. Lizandro Hemphill SPEC GRAVITY 1.010 Normal 1.005-<=1.025 [facility] Comment on above: Performed By: #### U AMIC ####[facility] Szhhzcyuyl[address] [place], [place] [address]Dr. Lizandro Hemphill UA PROTEIN Negative Normal NEGATIVE/ TRACE [facility] Comment on above: Performed By: #### U AMIC ####[facility] Ipgbhshhlm569[address] [place], [place] [address]Dr. Lizandro Joby Urobilinogen Qn (U) 0.2 {Cassy'U}/dL Normal 0.2 - 1.0 [facility] Comment on above: Performed By: #### U AMIC ####[facility] Nkkoxeshge2280 [place] [address]Dr. Lizandro Hemphill WBC NONE SEEN Normal NONE SEEN [facility] Comment on above: Performed By: #### U AMIC ####[facility] Lwokwxmtmd[address] [place], [place] [address]Dr. Lizandro Joby CBC AUTO DIFFon 05-28-2022 BASO # 0.0 103/ul Normal 0.0-0.1 [facility] Comment on above: Performed By: #### C BC ####[facility] [facility] Llsap[address] [place], [place] [address]Dr. Shanikaannie Hemphill Basophils/100 WBC (Bld) 0.6 % Normal 0.2-2.0 [facility] Comment on above: Performed By: #### C BC ####[facility] Qrzapyfbkc[address] [place] [id number]. Lizandro Hemphill EO # 0.0 103/ul Normal 0.0-0.7 [facility] Comment on above: Performed By: #### C BC ####[facility] Ijgqovpvnt8639 [place] [id number]. Lizandro Hemphill Eosinophils/100 WBC (Bld) 0.6 % Critically low 0.9-7.0 [facility] Comment on above: Performed By: #### C BC ####[facility] Iqefirfdnl7[address] [place], [place] [address]Dr. Lizandro Hemphill Erythrocyte distribution width (RBC) [Ratio] 18.6 % Critically high 11.0-15.0 [facility] Comment on above: Performed By: #### C BC ####[facility] Pznbnbdtlf8[address] [place], [place] [address]Dr. Lizandro Hemphill Hematocrit (Bld) [Volume fraction] 31.6 % Critically low 36.0-48.0 [facility] Comment on above: Performed By: #### C BC ####[facility] Cwqnffprrk8064[address] [place], [place] [address]Dr. Lizandro Hemphill Hemoglobin (Bld) [Mass/Vol] 10.2 g/dL Critically low 12.0-16.0 [facility] Comment on above: Performed By: #### C BC ####[facility] Rvidavqkvt628[address] [place], [place] [address]Dr. Lizandro Hemphill IG # 0.03 10e3/ul Normal 0.00-0.03 [facility] Comment on above: Performed By: #### C BC ####[facility] Cfvqhhwgcb244[address] [place], [place] [address]Dr. Lizandro Hemphill IG % 0.4 % Normal 0.0-0.5 [facility] Comment on above: Performed By: #### C BC ####[facility] Uxeovkxnyq5516[address] [place], [place] [address]Dr. Lizandro Hemphill LYMPH # 0.9 103/ul Critically low 1.2-3.8 The [facility] Comment on above: Performed By: #### C BC ####[facility] Ezshvywpup6843 [place] [id number]. Lizandro Hemphill Lymphocytes/100 WBC (Bld) 12.6 % Critically low 20.5-60.0 [facility] Comment on above: Performed By: #### C BC ####[facility] Jfuohslxyr4898 [place] [id number]. Shanikaannie Hemphill MANUAL DIFF REQ NO Normal [facility] Comment on above: Performed By: #### C BC ####[facility] Uoqixopvii5188 [place] [id number]. Lizandro Joby MCH (RBC) [Entitic mass] 26.7 pg Normal 26.7-34.0 [facility] Comment on above: Performed By: #### C BC ####[facility] Bhlbyaarfw575[address] [place], [place] [address]Dr. Lizandro Joby MCHC (RBC) [Mass/Vol] 32.3 g/dL Normal 29.9-35.2 [facility] Comment on above: Performed By: #### C BC ####[facility] Bfovhhbsoa73[address] [place], [place] [id number]. Lizandro Joby MCV (RBC) [Entitic vol] 82.7 fL Normal 81.0-99.0 [facility] Comment on above: Performed By: #### C BC ####[facility] Cgiurfaukb7567[address] [place], [place] [address]Dr. Lizandro Joby MONO # 0.7 103/ul Normal 0.3-0.8 [facility] Comment on above: Performed By: #### C BC ####[facility] Ayocbvszau7550[address] [place], [place] [id number]. Shanikaannie Hemphill Monocytes/100 WBC (Bld) 10.2 % Normal 1.7-12.0 [facility] Comment on above: Performed By: #### C BC ####[facility] Atbkuidxel[address] [place], [place] [id number]. Lizandro Hemphill NEUT # 5.4 103/ul Normal 1.4-6.5 [facility] Comment on above: Performed By: #### C BC ####[facility] Eepizpmtln84[address] [place] [address]Dr. Lizandro Hemphill Neutrophils/100 WBC (Bld) 75.6 % Critically high 43.0-75.0 [facility] Comment on above: Performed By: #### C BC ####[facility] Rbtobqycdw7439[address] [place], [place] [address]Dr. Lizandro Hemphill Platelet mean volume (Bld) [Entitic vol] 10.4 fL Normal 9.5-13.5 [facility] Comment on above: Performed By: #### C BC ####[facility] Rypkshogcw916[address] [place], [place] [address]Dr. Lizandro Hemphill PLT 260 103/ul Normal 150-450 [facility] Comment on above: Performed By: #### C BC ####[facility] Jogfithaao347[address] [place], [place] [address]Dr. Lizandro Hemphill RBC 3.82 106/ul Critically low 4.20-5.40 [facility] Comment on above: Performed By: #### C BC ####[facility] Iuldlubsvm0933[address] [place], [place] [address]Dr. Lizandro Hemphill WBC 7.2 103/ul Normal 4.0-11.0 [facility] Comment on above: Performed By: #### C BC ####[facility] Zzioswewtq2329[address] [place], [place] [address]Dr. Lizandro Joby ER URINE PROFILEon 3 Bilirubin Ql (U) Negative Normal NEGATIVE The [facility] Comment on above: Performed By: #### E RUR ####[facility] Gwllmadmkx125[address] [place], [place] [address]Dr. Lizandro Hemphill Clarity (U) CLEAR Normal CLEAR [facility] Comment on above: Performed By: #### E RUR ####[facility] Nzlwjyzlyv6924[address] [place], [place] [address]Dr. Lizandro Hemphill Color (U) LT. YELLOW Normal YELLOW [facility] Comment on above: Performed By: #### E RUR ####[facility] Hxnpttqxsc4537[address] [place], [place] [address]Dr. Lizandro CARRIONAHD A micrscopic examina tion will be performed if indicated. Normal [facility] Comment on above: Performed By: #### E RUR ####[facility] Ouowmxihxl18[address] [place] [address]Dr. Lizandro Hemphill Glucose Ql (U) Negative Normal NEGATIVE The [facility] Comment on above: Performed By: #### E RUR ####[facility] Gfxxtokgtk0665[address] [place], [place] [address]Dr. Lizandro Hemphill Hemoglobin Ql (U) Negative Normal NEGATIVE [facility] Comment on above: Performed By: #### E RUR ####[facility] Iemdxlnreq556[address] [place], [place] [address]Dr. Lizandro Joby Ketones Ql (U) Negative Normal NEGATIVE The [facility] Comment on above: Performed By: #### E RUR ####[facility] Xycfgcyfav595186 [address] [place], [place] [address]Dr. Shanikaannie Joby LEUKOCYTES Negative Normal NEGATIVE [facility] Comment on above: Performed By: #### E RUR ####[facility] Gddialvwsd901[address] [place], [place] [address]Dr. Lizandro Hemphill Nitrite Ql (U) Negative Normal NEGATIVE The [facility] Comment on above: Performed By: #### E RUR ####[facility] Fhskbdqcze5930[address] [place], [place] [address]Dr. Shanikaannie Joby pH (U) 6.5 [pH] Normal 5-9 [facility] Comment on above: Performed By: #### E RUR ####[facility] Atwosubzcd199[address] [place], [place] [address]Dr. Lizandro Hemphill SPEC GRAVITY <=1.005 Abnormal 1.005-<=1.025 The [facility] Comment on above: Performed By: #### E RUR ####[facility] Lisngvormx5015[address] [place], [place] [address]Dr. Lizandro Hemphill UA PROTEIN Negative Normal NEGATIVE/ TRACE [facility] Comment on above: Performed By: #### E RUR ####[facility] Ybnfpcwjwp624[address] [place], [place] [address]Dr. Lizandro Hemphill UR MICRO IND NOT INDICATED Normal [facility] Comment on above: Performed By: #### E RUR ####[facility] Woimahocdw8335[address] [place], [place] [address]Dr. Lizandro Hemphill Urobilinogen Qn (U) 0.2 {Cassy'U}/dL Normal 0.2 - 1.0 [facility] Comment on above: Performed By: #### E RUR ####[facility] Dbiauysizw9889[address] [place], [place] [address]Dr. Lizandro Hemphill GI PANEL (PCR)on 05-28-2022 Adenovirus F 40/41 Not detected Normal NOT DETECTED [facility] Comment on above: Performed By: #### G IPANEL ####[facility] Hafuotjxrm195[address] [place], [place] [address]Dr. Lizandro Hemphill Astrovirus Not detected Normal NOT DETECTED [facility] Comment on above: Performed By: #### G IPANEL ####[facility] Yfzrczikkq0424[address] [place], [place] [address]Dr. Lizandro Hemphill C. Diff toxin A/B Not detected Normal NOT DETECTED [facility] Comment on above: Performed By: #### G IPANEL ####[facility] Txwkblbeso510[address] [place], [place] [address]Dr. Lizandro Hemphill Campylobacter Not detected Normal NOT DETECTED The [facility] Comment on above: Performed By: #### G IPANEL ####[facility] Hpgqwketwk322[address] [place], [place] [address]Dr. Lizandro Hemphill Cryptosporidium Not detected Normal NOT DETECTED [facility] Comment on above: Performed By: #### G IPANEL ####[facility] Gajlyeivfu4515[address] [place], [place] [address]Dr. Lizandro Hemphill Cyclos. Cayetanensis Not detected Normal NOT DETECTED [facility] Comment on above: Performed By: #### G IPANEL ####[facility] Byqiwnbvon3059[address] [place], [place] [address]Dr. Lizandro Hemphill E. Coli O157 Not Applicable Normal Not Applicable [facility] Comment on above: Performed By: #### G IPANEL ####[facility] Zsjpcylyur240[address] [place], [place] [address]Dr. Lizandro Hemphill E. histolytica Not detected Normal NOT DETECTED [facility] Comment on above: Performed By: #### G IPANEL ####[facility] Ytzqywsszq9270[address] [place], [place] [address]Dr. Lizandro Hemphill EAEC Not detected Normal NOT DETECTED [facility] Comment on above: Performed By: #### G IPANEL ####[facility] Uliihuotip7389[address] [place], [place] [address]Dr. Lizandro Hemphill EIEC Not detected Normal NOT DETECTED The [facility] Comment on above: Performed By: #### G IPANEL ####[facility] Mzkqrplvad018[address] [place], [place] [address]Dr. Lizandro Hemphill EPEC Not detected Normal NOT DETECTED [facility] Comment on above: Performed By: #### G IPANEL ####[facility] Feydpmlatx6910[address] [place], [place] [address]Dr. Lizandro Hemphill ETEC Not detected Normal NOT DETECTED [facility] Comment on above: Performed By: #### G IPANEL ####[facility] Yudqkbivei8467[address] [place], [place] [address]Dr. Lizandro Hemphill G. Lamblia Not detected Normal NOT DETECTED The [facility] Comment on above: Performed By: #### G IPANEL ####[facility] Liskljfubv104[address] [place], [place] [address]Dr. Lizandro Hemphill GIPANEL CONTROLS PASSED Normal The [facility] Comment on above: Performed By: #### G IPANEL ####[facility] Krqirhudjj6400[address] [place], [place] [address]Dr. Lizandro LEHMANNL CARIE HEADER GI PANEL BACTERIA Normal T [facility] Comment on above: Performed By: #### G IPANEL ####[facility] Howmdidayb025[address] [place], [place] [address]Dr. Lizandro LEHMANNLHD ECOLI GI PANEL DIARRHEAGEN IC E.COLI / SHIGELLA Normal [facility] Comment on above: Performed By: #### G IPANEL ####[facility] Jayzfbwkub038[address] [place], [place] [address]Dr. Shanikaannie Hemphill GIPHD INFO SEE BELOW Normal [facility] Comment on above: Result Comment: EAEC - Enteroaggregative E. Coli EPEC- Enteropathogenic E. Coli ETEC- Enterotoxigenic E. Coli lt/st STEC- Shigella-like toxin-producing E. Coli stx1/stx2 EIEC- Shigella/Enteroinvasive E. Coli Performed By: #### G IPANEL ####[facility] Hllmasddzk7926[address] [place], [place] [address]Dr. Lizandro Hemphill GIPNLHD PARASITES GI PANEL PARASITES Normal [facility] Comment on above: Performed By: #### G IPANEL ####[facility] Ueoibqcuxq3350[address] [place], [place] [address]Dr. Lizandro Hemphill [facility] VIRUS GI PANEL VIRUSES Normal [facility] Comment on above: Performed By: #### G IPANEL ####[facility] Czxadrqjax626[address] [place], [place] [address]Dr. Lizandro Hemphill Norovirus GI/GII Not detected Normal NOT DETECTED [facility] Comment on above: Performed By: #### G IPANEL ####[facility] Efnxwjdebp916[address] [place], [place] [address]Dr. Lizandro Hemphill P. Shigelloides Not detected Normal NOT DETECTED [facility] Comment on above: Performed By: #### G IPANEL ####[facility] Vdzjvqdcry688[address] [place], [place] [address]Dr. Lizandro Hemphill Rotavirus A Not detected Normal NOT DETECTED [facility] Comment on above: Performed By: #### G IPANEL ####[facility] Ocfsyseqhf6817[address] [place], [place] [address]Dr. Lizandro Hemphill Salmonella Not detected Normal NOT DETECTED [facility] Comment on above: Performed By: #### G IPANEL ####[facility] Nrxjyhyupi7200[address] [place], [place] [address]Dr. Lizandro Hemphill Sapovirus Not detected Normal NOT DETECTED [facility] Comment on above: Performed By: #### G IPANEL ####[facility] Jjqaojuewb5300[address] [place], [place] [address]Dr. Lizandro Hemphill STEC Not detected Normal NOT DETECTED [facility] Comment on above: Performed By: #### G IPANEL ####[facility] Pomdfjvbon6417[address] [place], [place] [address]Dr. Lizandro Hemphill Vibrio Not detected Normal NOT DETECTED [facility] Comment on above: Performed By: #### G IPANEL ####[facility] Rvkkncdxng2828[address] [place], [place] [address]Dr. Lizandro Hemphill Vibrio Cholera Not detected Normal NOT DETECTED [facility] Comment on above: Performed By: #### G IPANEL ####[facility] Xgczshzple612[address] [place], [place] [address]Dr. Lizandro Hemphill Y. Enterocolitica Not detected Normal NOT DETECTED [facility] Comment on above: Performed By: #### G IPANEL ####[facility] Sbqlakegcq1612[address] [place], [place] [address]Dr. Lizandro Hemphill OCC BLD IMMUNOASSAYon 2022 OCCULT BLOOD Negative Normal NEGATIVE [facility] Comment on above: Performed By: #### O GREGORIO ####[facility] Prdwmymrsy297[address] [place], [place] [address]Dr. Lizandro Hemphill PROF 14(COMP METB)on 023 Albumin [Mass/Vol] 2.7 g/dL Critically low 3.4-5.0 Th [facility] Comment on above: Performed By: #### C MP ####[facility] Jlivqwmgvf926[address] [place], [place] [address]Dr. Lizandro Hemphill Albumin/Globulin [Mass ratio] 1.0 {ratio} Normal [facility] Comment on above: Performed By: #### C MP ####[facility] Rrbxtjodrs1137[address] [place], [place] [address]Dr. Lizandro Hemphill ALP [Catalytic activity/Vol] 93 U/L Normal 46-116 [facility] Comment on above: Performed By: #### C MP ####[facility] Ytofsijbtn3587[address] [place], [place] [address]Dr. Lizandro Hemphill ALT [Catalytic activity/Vol] 38 U/L Normal 14-59 [facility] Comment on above: Performed By: #### C MP ####[facility] Rbokolkwzw[address] [place] [address]Dr. Lizandro Hemphill Anion gap [Moles/Vol] 10.9 mmol/L Normal [facility] Comment on above: Performed By: #### C MP ####[facility] Gmxhbvbncf5680[address] [place], [place] [address]Dr. Lizandro Hemphill AST [Catalytic activity/Vol] 44 U/L Critically high 15-37 [facility] Comment on above: Performed By: #### C MP ####[facility] Hodjxtipqr856[address] [place], [place] [address]Dr. Lizandro Hemphill Bilirubin [Mass/Vol] 0.2 mg/dL Normal 0.2-1.0 [facility] Comment on above: Performed By: #### C MP ####[facility] Vovwgxfzpf7212[address] [place], [place] [address]Dr. Lizandro Joby Calcium [Mass/Vol] 8.0 mg/dL Critically low 8.5-10.1 Th [facility] Comment on above: Performed By: #### C MP ####[facility] Kfzurhhfor878[address] [place], [place] [address]Dr. Lizandro Joby Chloride [Moles/Vol] 107 mmol/L Normal 98-107 [facility] Comment on above: Performed By: #### C MP ####[facility] Objzukitjp768[address] [place], [place] [address]Dr. Lizandro Joby CO2 [Moles/Vol] 27.4 mmol/L Normal 21.0-32.0 The [facility] Comment on above: Performed By: #### C MP ####[facility] Aefoqaklge2069[address] [place], [place] [address]Dr. Lizandro Hemphill Creatinine [Mass/Vol] 0.90 mg/dL Normal 0.55-1.02 [facility] Comment on above: Performed By: #### C MP ####[facility] Iessqdtsca0001[address] [place], [place] [address]Dr. Lizandro Hemphill EGFR-AF SOMALI >60 Normal >=60 The [facility] Comment on above: Performed By: #### C MP ####[facility] Hkzdamivyz4[address] [place] [id number]. Lizandro Hemphill EGFR-NON AF SOMALI >60 Normal >=60 [facility] Comment on above: Performed By: #### C MP ####[facility] Lkhzglrhqd1767 [place] [id number]. Lizandro Hemphill Globulin (S) [Mass/Vol] 2.6 g/dL Normal [facility] Comment on above: Performed By: #### C MP ####[facility] Lymxlzfjfu8[address] [place] [address]Dr. Lizandro Hemphill Glucose [Mass/Vol] 131 mg/dL Critically high 74-106 [facility] Comment on above: Performed By: #### C MP ####[facility] Xgxhqtuutx6307 [place] [address]Dr. Lizandro Hemphill Potassium [Moles/Vol] 3.3 mmol/L Critically low 3.5-5.1 [facility] Comment on above: Performed By: #### C MP ####[facility] Jovgqrhvcz026[address] [place], [place] [address]Dr. Lizandro Hemphill Protein [Mass/Vol] 5.3 g/dL Critically low 6.4-8.2 [facility] Comment on above: Performed By: #### C MP ####[facility] Oszkjnvbqw07[address] [place] [address]Dr. Lizandro Hemphill Sodium [Moles/Vol] 142 mmol/L Normal 136-145 [facility] Comment on above: Performed By: #### C MP ####[facility] Nzvzfvltvw7728 [place] [address]Dr. Lizandro Hemphill Urea nitrogen [Mass/Vol] 12.0 mg/dL Normal 7.0-18.0 [facility] Comment on above: Performed By: #### C MP ####[facility] Aahyhwxgkd2740 [place] [address]Dr. Lizandro Hemphill Urea nitrogen/Creatinin e [Mass ratio] 13.3 mg/mg Normal [facility] Comment on above: Performed By: #### C MP ####[facility] Behemequtu67[address] [place] [address]Dr. Lizandro Hemphill PROTIMEon 05-28-2022 INR Coag (PPP) [Relative time] 1.10 {INR} Normal [facility] Comment on above: Performed By: #### P T ####[facility] Iukxikuocx299[address] [place] [address]Dr. Lizandro Hemphill INR GUIDELINES SEE BELOW Normal [facility] Comment on above: Result Comment: GUEVARA RED INR: 2.0 - 3.0 CONDITIONS NOT LISTED BELOW 2.5 - 3.5 FOR PROSTHETIC HEART VALVE REPLACEMENT 2.5 - 3.5 RECURRENT THROMBOSIS Performed By: #### P T ####[facility] Eavuhfjdlb160[address] [place], [place] [address]Dr. Lizandro Hemphill PT Coag (PPP) [Time] 11.6 s Normal 9.0-11.6 [facility] Comment on above: Performed By: #### P T ####[facility] Cufehekzkp315[address] [place], [place] [address]Dr. Lizandro Hemphill XR ABD FLAT UP_PA Allen 05-28 XR ABD FLAT UP_PA CH Normal [facility] CBC AUTO DIFFon 05-27-2022 BASO # 0.1 103/ul Normal 0.0-0.1 [facility] Comment on above: Performed By: #### C BC ####[facility] Cmwwhzimqh7844[address] [place], [place] [address]Dr. Lizandro Hemphill Basophils/100 WBC (Bld) 0.9 % Normal 0.2-2.0 [facility] Comment on above: Performed By: #### C BC ####[facility] Ggubaqffkk4417[address] [place], [place] [address]Dr. Lizandro Hemphill EO # 0.0 103/ul Normal 0.0-0.7 [facility] Comment on above: Performed By: #### C BC ####[facility] Drlikrjzkp268[address] [place], [place] [address]Dr. Lizandro Hemphill Eosinophils/100 WBC (Bld) 0.8 % Critically low 0.9-7.0 [facility] Comment on above: Performed By: #### C BC ####[facility] Roxauclsqv24[address] [place] [address]Dr. Lizandro Hemphill Erythrocyte distribution width (RBC) [Ratio] 18.6 % Critically high 11.0-15.0 [facility] Comment on above: Performed By: #### C BC ####[facility] Yiictwtdil975[address] [place], [place] [address]Dr. Lizandro Hemphill Hematocrit (Bld) [Volume fraction] 33.0 % Critically low 36.0-48.0 [facility] Comment on above: Performed By: #### C BC ####[facility] Lktwbrnmri6913[address] [place], [place] [address]Dr. Lizandro Hemphill Hemoglobin (Bld) [Mass/Vol] 10.8 g/dL Critically low 12.0-16.0 [facility] Comment on above: Performed By: #### C BC ####[facility] Xrikbfddof0524[address] [place], [place] [address]Dr. Lizandro Hemphill IG # 0.01 10e3/ul Normal 0.00-0.03 [facility] Comment on above: Performed By: #### C BC ####[facility] Uamhcrgolv301[address] [place], [place] [address]Dr. Lizandro Hemphill IG % 0.2 % Normal 0.0-0.5 [facility] Comment on above: Performed By: #### C BC ####[facility] Atdspaosao9213[address] [place], [place] [address]Dr. Lizandro Hemphill LYMPH # 0.9 103/ul Critically low 1.2-3.8 [facility] Comment on above: Performed By: #### C BC ####[facility] Mjhpddctnn087[address] [place], [place] [address]Dr. Lizandro Hemphill Lymphocytes/100 WBC (Bld) 16.5 % Critically low 20.5-60.0 [facility] Comment on above: Performed By: #### C BC ####[facility] Jzipyqppac938[address] [place], [place] [address]Dr. Lizandro Hemphill MANUAL DIFF REQ NO Normal [facility] Comment on above: Performed By: #### C BC ####[facility] Ltxahypqxb3009 [place] [id number]. Lizandro Hemphill MCH (RBC) [Entitic mass] 27.3 pg Normal 26.7-34.0 [facility] Comment on above: Performed By: #### C BC ####[facility] Ifwmnmbsvj1746 [place] [id number]. Lizandro Hemphill MCHC (RBC) [Mass/Vol] 32.7 g/dL Normal 29.9-35.2 [facility] Comment on above: Performed By: #### C BC ####[facility] Cwqxhngxsf45[address] [place] [address]Dr. Lizandro Joby MCV (RBC) [Entitic vol] 83.5 fL Normal 81.0-99.0 [facility] Comment on above: Performed By: #### C BC ####[facility] Gpwvagnout5387[address] [place], [place] [address]Dr. Shanikaannie Hemphill MONO # 0.7 103/ul Normal 0.3-0.8 [facility] Comment on above: Performed By: #### C BC ####[facility] Llprlvbote287[address] [place], [place] [address]Dr. Lizandro Joby Monocytes/100 WBC (Bld) 13.7 % Critically high 1.7-12.0 [facility] Comment on above: Performed By: #### C BC ####[facility] Tbpiezzkuw8527[address] [place], [place] [address]Dr. Lizandro Hemphill NEUT # 3.6 103/ul Normal 1.4-6.5 [facility] Comment on above: Performed By: #### C BC ####[facility] Hvlrpmeiiu750[address] [place], [place] [address]Dr. Shanikaannie Hemphill Neutrophils/100 WBC (Bld) 67.9 % Normal 43.0-75.0 [facility] Comment on above: Performed By: #### C BC ####[facility] Ljwvtzkncx526[address] [place], [place] [address]Dr. Lizandro Hemphill Platelet mean volume (Bld) [Entitic vol] 10.4 fL Normal 9.5-13.5 [facility] Comment on above: Performed By: #### C BC ####[facility] Tgybmwuhdb0588 [place] [id number]. Lizandro Hemphill PLT 270 103/ul Normal 150-450 [facility] Comment on above: Performed By: #### C BC ####[facility] Uokpjaxqqa4509 [place] [id number]. Lizandro Hemphill RBC 3.95 106/ul Critically low 4.20-5.40 [facility] Comment on above: Performed By: #### C BC ####[facility] Upeehxdgsg4589 [place] [id number]. Liazndro Hemphill WBC 5.3 103/ul Normal 4.0-11.0 [facility] Comment on above: Performed By: #### C BC ####[facility] [address]azllwaqu[address] [place], [place] [id number]. Lizandro Hemphill BASO # 0.1 103/ul Normal 0.0-0.1 [facility] Comment on above: Performed By: #### C BC ####[facility] Dklegmqxub7712 [place] [id number]. Lizandro Hemphill Basophils/100 WBC (Bld) 1.0 % Normal 0.2-2.0 [facility] Comment on above: Performed By: #### C BC ####[facility] Fhsysrwdud05[address] [place], [place] [id number]. Lizandro Hemphill EO # 0.1 103/ul Normal 0.0-0.7 [facility] Comment on above: Performed By: #### C BC ####[facility] Oeyiqeuqtf74[address] [place], [place] [id number]. Lizandro Hemphill Eosinophils/100 WBC (Bld) 1.0 % Normal 0.9-7.0 [facility] Comment on above: Performed By: #### C BC ####[facility] Crlmvbxebz3979 [place] [phone]. Lizandro Hemphill Erythrocyte distribution width (RBC) [Ratio] 20.0 % Critically high 11.0-15.0 [facility] Comment on above: Performed By: #### C BC ####[facility] Hzbthgjarv3840 [place] [address]Dr. Lizandro Hemphill Hematocrit (Bld) [Volume fraction] 24.0 % Critically low 36.0-48.0 [facility] Comment on above: Performed By: #### C BC ####[facility] Hwhvdslezy2782 [place] [address]DrCiro Hemphill Hemoglobin (Bld) [Mass/Vol] 7.4 g/dL Critically low 12.0-16.0 [facility] Comment on above: Performed By: #### C BC ####[facility] Lgufxdsxym[address] [place], [place] [address]DrCiro Hemphill IG # 0.01 10e3/ul Normal 0.00-0.03 [facility] Comment on above: Performed By: #### C BC ####[facility] [address] [place], [place] [address]DrCiro Hemphill IG % 0.2 % Normal 0.0-0.5 [facility] Comment on above: Performed By: #### C BC ####[facility] Lawiqizsbi50[address] [place], [place] [address]DrCiro Hemphill LYMPH # 1.0 103/ul Critically low 1.2-3.8 [facility] Comment on above: Performed By: #### C BC ####[facility] Ginexirdpo6[address] [place], [place] [address]DrCiro Hemphill Lymphocytes/100 WBC (Bld) 20.3 % Critically low 20.5-60.0 [facility] Comment on above: Performed By: #### C BC ####[facility] Sadlhluxmd05[address] [place], [place] [address]DrCiro Hemphill MANUAL DIFF REQ NO Normal [facility] Comment on above: Performed By: #### C BC ####[facility] Cpactkjkws9570[address] [place], [place] [address]DrCiro Hemphill MCH (RBC) [Entitic mass] 25.3 pg Critically low 26.7-34.0 [facility] Comment on above: Performed By: #### C BC ####[facility] Nruscdwvxj7423 [place] [id number]. Lizandro Joby MCHC (RBC) [Mass/Vol] 30.8 g/dL Normal 29.9-35.2 [facility] Comment on above: Performed By: #### C BC ####[facility] Nvyyfcojgz8741 [place] [id number]. Lizandro Hemphill MCV (RBC) [Entitic vol] 81.9 fL Normal 81.0-99.0 [facility] Comment on above: Performed By: #### C BC ####[facility] Ftpftephfy046[address] [place], [place] [address]Dr. Lizandro Hemphill MONO # 0.6 103/ul Normal 0.3-0.8 [facility] Comment on above: Performed By: #### C BC ####[facility] Kizhwnxtvd0435[address] [place], [place] [address]Dr. Lizandro Hemphill Monocytes/100 WBC (Bld) 12.8 % Critically high 1.7-12.0 [facility] Comment on above: Performed By: #### C BC ####[facility] Bzutkalnxf325[address] [place], [place] [address]Dr. Lizandro Hemphill NEUT # 3.2 103/ul Normal 1.4-6.5 [facility] Comment on above: Performed By: #### C BC ####[facility] Kxtorvfgih1210[address] [place], [place] [address]DrCiro Hemphill Neutrophils/100 WBC (Bld) 64.7 % Normal 43.0-75.0 [facility] Comment on above: Performed By: #### C BC ####[facility] Bzryvndjiw37[address] [place], [place] [id number] Hemphill Platelet mean volume (Bld) [Entitic vol] 10.2 fL Normal 9.5-13.5 [facility] Comment on above: Performed By: #### C BC ####[facility] Wrljpbxvtq1987[address] [place], [place] [address]Dr. Lizandro Hemphill PLT 301 103/ul Normal 150-450 [facility] Comment on above: Performed By: #### C BC ####[facility] Cipwksrmkl2656 [place] [id number]. Lizandro Hemphill RBC 2.93 106/ul Critically low 4.20-5.40 [facility] Comment on above: Performed By: #### C BC ####[facility] Tbdxknnjyu9947 [place] [id number]. Lizandro Hemphill WBC 4.9 103/ul Normal 4.0-11.0 [facility] Comment on above: Performed By: #### C BC ####[facility] Tblwamlswn4145 [place] [id number]. Lizandro Hemphill BASO # 0.0 103/ul Normal 0.0-0.1 [facility] Comment on above: Performed By: #### C BC ####[facility] Hhxiupbxdd3559[address] [place], [place] [address]Dr. Lizandro Hemphill Basophils/100 WBC (Bld) 0.9 % Normal 0.2-2.0 [facility] Comment on above: Performed By: #### C BC ####[facility] Xzzczobqvi5169[address] [place], [place] [id number]. Lizandro Hemphill EO # 0.0 103/ul Normal 0.0-0.7 [facility] Comment on above: Performed By: #### C BC ####[facility] Mvujycnfjx3051 [place] [id number]. Lizandro Hemphill Eosinophils/100 WBC (Bld) 0.7 % Critically low 0.9-7.0 [facility] Comment on above: Performed By: #### C BC ####[facility] Icluciqlsr436364 [address] [place], [place] [id number]. Shanikaannie Hemphill Erythrocyte distribution width (RBC) [Ratio] 20.1 % Critically high 11.0-15.0 [facility] Comment on above: Performed By: #### C BC ####[facility] Ysxnfjtbfd006[address] [place], [place] [id number]. Lizandro Hemphill Hematocrit (Bld) [Volume fraction] 23.6 % Critically low 36.0-48.0 [facility] Comment on above: Performed By: #### C BC ####[facility] Khsvnpzdgq3472 [place] [address]Dr. Lizandro Hemphill Hemoglobin (Bld) [Mass/Vol] 7.3 g/dL Critically low 12.0-16.0 [facility] Comment on above: Result Comment: Flui ds given Performed By: #### C BC ####[facility] Szcnxrrhrz5835 [place] [address]Dr. Lizandro Hemphill IG # 0.01 10e3/ul Normal 0.00-0.03 [facility] Comment on above: Performed By: #### C BC ####[facility] Ekjfawyiey544[address] [place], [place] [address]Dr. Lizandro Hemphill IG % 0.2 % Normal 0.0-0.5 [facility] Comment on above: Performed By: #### C BC ####[facility] Bsskhujrjm640[address] [place], [place] [address]Dr. Lizandro Joby LYMPH # 1.0 103/ul Critically low 1.2-3.8 [facility] Comment on above: Performed By: #### C BC ####[facility] Pvctghvitd109[address] [place], [place] [address]Dr. Lizandro Hemphill Lymphocytes/100 WBC (Bld) 22.8 % Normal 20.5-60.0 [facility] Comment on above: Performed By: #### C BC ####[facility] Lembrdrgcf4355[address] [place], [place] [address]Dr. Shanikaannie Hemphill MANUAL DIFF REQ NO Normal [facility] Comment on above: Performed By: #### C BC ####[facility] Hcjsuhunoj769[address] [place], [place] [address]Dr. Lizandro Hemphill MCH (RBC) [Entitic mass] 25.3 pg Critically low 26.7-34.0 [facility] Comment on above: Performed By: #### C BC ####[facility] Hwkkbzchgb8095[address] [place], [place] [address]Dr. Lizandro Joby MCHC (RBC) [Mass/Vol] 30.9 g/dL Normal 29.9-35.2 [facility] Comment on above: Performed By: #### C BC ####[facility] Nxdldlinco5175 [place] [id number]. Lizandro Hemphill MCV (RBC) [Entitic vol] 81.9 fL Normal 81.0-99.0 [facility] Comment on above: Performed By: #### C BC ####[facility] Njazmyrtyp0906 [place] [id number]. Lizandro Hemphill MONO # 0.6 103/ul Normal 0.3-0.8 [facility] Comment on above: Performed By: #### C BC ####[facility] Powxsckkgb5540 [place] [address]Dr. Lizandro Hemphill Monocytes/100 WBC (Bld) 12.3 % Critically high 1.7-12.0 [facility] Comment on above: Performed By: #### C BC ####[facility] Butwqfdblo2120[address] [place], [place] [address]Dr. Lizandro Hemphill NEUT # 2.9 103/ul Normal 1.4-6.5 [facility] Comment on above: Performed By: #### C BC ####[facility] Hxkrafqlly10[address] [place], [place] [id number]. Lizandro Hemphill Neutrophils/100 WBC (Bld) 63.1 % Normal 43.0-75.0 [facility] Comment on above: Performed By: #### C BC ####[facility] Sjxrwyujbi1342 [place] [phone]. Lizandro Hemphill Platelet mean volume (Bld) [Entitic vol] 10.6 fL Normal 9.5-13.5 [facility] Comment on above: Performed By: #### C BC ####[facility] Dxffgtbwyz65[address] [place], [place] [id number]. Lizandro Hemphill PLT 305 103/ul Normal 150-450 [facility] Comment on above: Performed By: #### C BC ####[facility] Ylcdbwllgw4163 [place] [id number]. Lizandro Hemphill RBC 2.88 106/ul Critically low 4.20-5.40 [facility] Comment on above: Performed By: #### C BC ####[facility] Kkwoaptikh6218 [place] [address]Dr. Lizandro Hemphill WBC 4.6 103/ul Normal 4.0-11.0 [facility] Comment on above: Performed By: #### C BC ####[facility] Wlqdfvfmnv6171 [place] [address]Dr. Lizandro eHmphill PROF 14(COMP METB)on 023 Albumin [Mass/Vol] 2.7 g/dL Critically low 3.4-5.0 [facility] Comment on above: Performed By: #### C MP ####[facility] Glfqhtkgtq1118 [place] [address]Dr. Lizandro Hemphill Albumin/Globulin [Mass ratio] 1.0 {ratio} Normal [facility] Comment on above: Performed By: #### C MP ####[facility] Yoomrvvnxx8870 [place] [address]Dr. Lizandro Hemphill ALP [Catalytic activity/Vol] 75 U/L Normal 46-116 [facility] Comment on above: Performed By: #### C MP ####[facility] Bulonshhcd045[address] [place], [place] [address]Dr. Lizandro Hemphill ALT [Catalytic activity/Vol] 11 U/L Critically low 14-59 [facility] Comment on above: Performed By: #### C MP ####[facility] Wxbyohywjy7929 [place] [address]Dr. Lizandro Hemphill Anion gap [Moles/Vol] 13.9 mmol/L Normal [facility] Comment on above: Performed By: #### C MP ####[facility] Jubuavumuj9778 [place] [address]Dr. Lizandro Hemphill AST [Catalytic activity/Vol] 23 U/L Normal 15-37 [facility] Comment on above: Performed By: #### C MP ####[facility] Gygujflvee5923 [place] [address]Dr. Lizandro Hemphill Bilirubin [Mass/Vol] 0.5 mg/dL Normal 0.2-1.0 [facility] Comment on above: Performed By: #### C MP ####[facility] Sntieckhvk8513 [place] [id number]. Lizandro Hemphill Calcium [Mass/Vol] 8.3 mg/dL Critically low 8.5-10.1 [facility] Comment on above: Performed By: #### C MP ####[facility] Lotckzhcbs6316 [place] [phone]. Lizandro Hemphill Chloride [Moles/Vol] 107 mmol/L Normal 98-107 [facility] Comment on above: Performed By: #### C MP ####[facility] Hvtncmwnfs6087 [place] [phone]. Lizandro Hemphill CO2 [Moles/Vol] 26.4 mmol/L Normal 21.0-32.0 [facility] Comment on above: Performed By: #### C MP ####[facility] Zcfgygxdgs8427[address] [place], [place] [address]Dr. Lizandro Joby Creatinine [Mass/Vol] 1.47 mg/dL Critically high 0.55-1.02 [facility] Comment on above: Performed By: #### C MP ####[facility] Fektjsmfpx0516[address] [place], [place] [address]Dr. Lizandro Hemphill EGFR-AF SOMALI 44 mL/min/1.73m2 Critically low >=60 [facility] Comment on above: Performed By: #### C MP ####[facility] Kosrixqnvy2264 [place] [address]Dr. Lizandro Joby EGFR-NON AF SOMALI 36 mL/min/1.73m2 Critically low >=60 [facility] Comment on above: Performed By: #### C MP ####[facility] Uuidihjhyi8621 [place] [phone]. Lizandro Joby Globulin (S) [Mass/Vol] 2.8 g/dL Normal [facility] Comment on above: Performed By: #### C MP ####[facility] Xuvbfozmrk0331 [place] [address]Dr. Lizandro Hemphill Glucose [Mass/Vol] 122 mg/dL Critically high 74-106 [facility] Comment on above: Performed By: #### C MP ####[facility] Kbwtnykcir4539 [place] [address]Dr. Lizandro Joby Potassium [Moles/Vol] 3.3 mmol/L Critically low 3.5-5.1 [facility] Comment on above: Performed By: #### C MP ####[facility] Sesmaocrqf0528[address] [place], [place] [address]Dr. Lizandro Hemphill Protein [Mass/Vol] 5.5 g/dL Critically low 6.4-8.2 [facility] Comment on above: Performed By: #### C MP ####[facility] Mrpfibzpfj106[address] [place], [place] [address]Dr. Lizandro Hemphill Sodium [Moles/Vol] 144 mmol/L Normal 136-145 [facility] Comment on above: Performed By: #### C MP ####[facility] Fgyulbiigo2413[address] [place], [place] [address]Dr. Lizandro Hemphill Urea nitrogen [Mass/Vol] 19.0 mg/dL Critically high 7.0-18.0 [facility] Comment on above: Performed By: #### C MP ####[facility] Trgiazhpyg109486 [address] [place], [place] [address]Dr. Shanikaannie Joby Urea nitrogen/Creatinin e [Mass ratio] 12.9 mg/mg Normal [facility] Comment on above: Performed By: #### C MP ####[facility] Qpaithfsgd027[address] [place], [place] [address]Dr. Lizandro Hemphill PROTIMEon 05-27-2022 INR Coag (PPP) [Relative time] 1.18 {INR} Normal [facility] Comment on above: Performed By: #### P T ####[facility] Cdtvfihfyg535[address] [place], [place] [address]Dr. Lizandro Hemphill INR GUIDELINES SEE BELOW Normal [facility] Comment on above: Result Comment: GUEVARA RED INR: 2.0 - 3.0 CONDITIONS NOT LISTED BELOW 2.5 - 3.5 FOR PROSTHETIC HEART VALVE REPLACEMENT 2.5 - 3.5 RECURRENT THROMBOSIS Performed By: #### P T ####[facility] Udjupeorcb8945[address] [place], [place] [address]Dr. Lizandro Hemphill PT Coag (PPP) [Time] 12.4 s Critically high 9.0-11.6 [facility] Comment on above: Performed By: #### P T ####[facility] Wnueoyxrxz613[address] [place], [place] [address]Dr. Lizandro Hemphill TYPE AND SCREENon 05-27-2022 TYPE AND SCREEN Negative Normal [facility] Comment on above: Performed By: #### T NS ####[facility] Vlipzhiyax507[address] [place], [place] [address]Dr. Lizandro Hemphill CBC AUTO DIFFon 05-26-2022 BASO # 0.1 103/ul Normal 0.0-0.1 [facility] Comment on above: Performed By: #### C BC ####[facility] Whsiyigfbk3513[address] [place], [place] [address]Dr. Lizandro Hemphill Basophils/100 WBC (Bld) 0.6 % Normal 0.2-2.0 [facility] Comment on above: Performed By: #### C BC ####[facility] Mawlhjlvlu62[address] [place], [place] [address]Dr. Lizandro Hemphill EO # 0.0 103/ul Normal 0.0-0.7 [facility] Comment on above: Performed By: #### C BC ####[facility] Dkkgkfvjcw5904[address] [place], [place] [address]Dr. Lizandro Hemphill Eosinophils/100 WBC (Bld) 0.2 % Critically low 0.9-7.0 [facility] Comment on above: Performed By: #### C BC ####[facility] Iblmxdembx564[address] [place], [place] [address]Dr. Lizandro Hemphill Erythrocyte distribution width (RBC) [Ratio] 20.1 % Critically high 11.0-15.0 [facility] Comment on above: Performed By: #### C BC ####[facility] Hzbvypejgx400[address] [place], [place] [address]Dr. Lizandro Hemphill Hematocrit (Bld) [Volume fraction] 31.2 % Critically low 36.0-48.0 [facility] Comment on above: Performed By: #### C BC ####[facility] Jlytzvjvue1830 [place] [phone]. Lizandro Hemphill Hemoglobin (Bld) [Mass/Vol] 9.8 g/dL Critically low 12.0-16.0 [facility] Comment on above: Performed By: #### C BC ####[facility] Fuywncswon6657 [place] [id number]. Lizandro Hemphill IG # 0.03 10e3/ul Normal 0.00-0.03 [facility] Comment on above: Performed By: #### C BC ####[facility] Zyizngsiep0757 [place] [address]Dr. Lizandro Hemphill IG % 0.3 % Normal 0.0-0.5 [facility] Comment on above: Performed By: #### C BC ####[facility] Velpsjrgxz8110[address] [place], [place] [address]Dr. Lizandro Hemphill LYMPH # 1.4 103/ul Normal 1.2-3.8 [facility] Comment on above: Performed By: #### C BC ####[facility] Hagsotqqos9413 [place] [address]Dr. Lizandro Hemphill Lymphocytes/100 WBC (Bld) 15.1 % Critically low 20.5-60.0 [facility] Comment on above: Performed By: #### C BC ####[facility] Gffvxgrkyk5622 [place] [address]Dr. Lizandro Hemphill MANUAL DIFF REQ NO Normal [facility] Comment on above: Performed By: #### C BC ####[facility] Ixmivbydka1137 [place] [phone]. Lizandro Hemphill MCH (RBC) [Entitic mass] 25.1 pg Critically low 26.7-34.0 [facility] Comment on above: Performed By: #### C BC ####[facility] Wdrhkzftbc5468 [place] [phone]. Lizandro Hemphill MCHC (RBC) [Mass/Vol] 31.4 g/dL Normal 29.9-35.2 [facility] Comment on above: Performed By: #### C BC ####[facility] Qgcoyrxaah8293 [place] [phone]. Lizandro Hemphill MCV (RBC) [Entitic vol] 79.8 fL Critically low 81.0-99.0 [facility] Comment on above: Performed By: #### C BC ####[facility] Gdqxtqiwnz6293 [place] [id number]. Lizandro Hemphill MONO # 1.0 103/ul Critically high 0.3-0.8 [facility] Comment on above: Performed By: #### C BC ####[facility] Jpykhmsqii3041 [place] [id number]. Lizandro Hemphill Monocytes/100 WBC (Bld) 11.5 % Normal 1.7-12.0 [facility] Comment on above: Performed By: #### C BC ####[facility] Ytkcgljzxc027[address] [place], [place] [address]Dr. Lizandro Hemphill NEUT # 6.5 103/ul Normal 1.4-6.5 [facility] Comment on above: Performed By: #### C BC ####[facility] Rarzbphras6[address] [place], [place] [id number]. Lizandro Hemphill Neutrophils/100 WBC (Bld) 72.3 % Normal 43.0-75.0 [facility] Comment on above: Performed By: #### C BC ####[facility] Dhlvakqxvl18[address] [place], [place] [address]Dr. Lizandro Hemphill Platelet mean volume (Bld) [Entitic vol] 10.2 fL Normal 9.5-13.5 [facility] Comment on above: Performed By: #### C BC ####[facility] Yesmhyjidv7170 [place] [phone]. Lizandro Joby PLT 395 103/ul Normal 150-450 [facility] Comment on above: Performed By: #### C BC ####[facility] Pbpdhiydqi7907 [place] [id number]. Shanikaannie Joby RBC 3.91 106/ul Critically low 4.20-5.40 [facility] Comment on above: Performed By: #### C BC ####[facility] Btfkutcxik4269 [place] [id number]. Lizandro Hemphill WBC 9.0 103/ul Normal 4.0-11.0 [facility] Comment on above: Performed By: #### C BC ####[facility] Kszsnxxqvo9244 [place] [id number]. Lizandro Hemphill CPKon 05-26-2022 CK [Catalytic activity/Vol] 260 U/L Critically high 26-192 [facility] Comment on above: Performed By: #### L IPA, CMP, CK, HSTROPN ####[facility] Lwtpdniiqd9185 [place] [address]Dr. Lizandro Hemphill [facility]on SARS-CoV-2 (COVID-19) RNA VERITO+probe Ql (Unsp spec) Not detected Normal NOT DETECTED [facility] Comment on above: Result Comment: When diagnostic [...] for this test is supported by the [place] of Health and Human Service's declaration that [...] be used). Performed By: #### C VDTBH ####[facility] Ezgwmpdohx1812 [place] [address]Dr. Lizandro Hemphill LIPASEon 05-26-2022 Lipase [Catalytic activity/Vol] 258.0 U/L Normal 73.0-393.0 [facility] Comment on above: Performed By: #### L IPA, CMP, CK, HSTROPN ####[facility] Lwrnwyqkez3700 [place] [address]Dr. Lizandro Hemphill PH VENOUS BLOODon 05-26-2022 PCO2 VENOUS 28.2 mmHg Critically low 40.0-52.0 [facility] Comment on above: Performed By: #### P HVEN ####[facility] Sfnqgegrqh9789 [place] [address]Dr. Lizandro Hemphill pH VENOUS 7.554 Critically high 7.330-7.430 The [facility] Comment on above: Performed By: #### P HVEN ####[facility] Pafbuaflqm0906 [place] [address]Dr. Lizandro Hemphill PROF 14(COMP METB)on 023 Albumin [Mass/Vol] 3.8 g/dL Normal 3.4-5.0 [facility] Comment on above: Performed By: #### L IPA, CMP, CK, HSTROPN ####[facility] Royhdlzczd5574 [place] [address]Dr. Lizandro Hemphill Albumin/Globulin [Mass ratio] 1.0 {ratio} Normal [facility] Comment on above: Performed By: #### L IPA, CMP, CK, HSTROPN ####[facility] Uovshkwphm4072 [place] [address]Dr. Lizandro Hemphill ALP [Catalytic activity/Vol] 115 U/L Normal 46-116 [facility] Comment on above: Performed By: #### L IPA, CMP, CK, HSTROPN ####[facility] Sgoakalwpu0711 [place] [address]Dr. Lizandro Hemphill ALT [Catalytic activity/Vol] 36 U/L Normal 14-59 [facility] Comment on above: Performed By: #### L IPA, CMP, CK, HSTROPN ####[facility] Gomlwpekqe3299 [place] [address]Dr. Lizandro Hemphill Anion gap [Moles/Vol] 15.9 mmol/L Normal [facility] Comment on above: Performed By: #### L IPA, CMP, CK, HSTROPN ####[facility] Xbyppfvivr6336 [place] [address]Dr. Lizandro Hemphill AST [Catalytic activity/Vol] 46 U/L Critically high 15-37 [facility] Comment on above: Performed By: #### L IPA, CMP, CK, HSTROPN ####[facility] Xyrqpakquo0129 [place] [address]Dr. Lizandro Hemphill Bilirubin [Mass/Vol] 0.4 mg/dL Normal 0.2-1.0 [facility] Comment on above: Performed By: #### L IPA, CMP, CK, HSTROPN ####[facility] Ycpmaiyvzj0265 [place] [address]Dr. Lizandro Hemphill Calcium [Mass/Vol] 9.5 mg/dL Normal 8.5-10.1 [facility] Comment on above: Performed By: #### L IPA, CMP, CK, HSTROPN ####[facility] Nlxtywmisa9469 [place] [address]Dr. Lizandro Hemphill Chloride [Moles/Vol] 104 mmol/L Normal 98-107 [facility] Comment on above: Performed By: #### L IPA, CMP, CK, HSTROPN ####[facility] Gprykjksyy4[address] [place], [place] [address]Dr. Lizandro Hemphill CO2 [Moles/Vol] 24.7 mmol/L Normal 21.0-32.0 The [facility] Comment on above: Performed By: #### L IPA, CMP, CK, HSTROPN ####[facility] Xpbzjufljx2107 [place] [address]Dr. Lizandro Hemphill Creatinine [Mass/Vol] 1.12 mg/dL Critically high 0.55-1.02 [facility] Comment on above: Performed By: #### L IPA, CMP, CK, HSTROPN ####[facility] Nikylzlonq6881 [place] [address]Dr. Lizandro Hemphill EGFR-AF SOMALI 60 mL/min/1.73m2 Normal >=60 [facility] Comment on above: Performed By: #### L IPA, CMP, CK, HSTROPN ####[facility] Feflpbvtcr9541 [place] [address]Dr. Lizandro Hemphill EGFR-NON AF SOMALI 50 mL/min/1.73m2 Critically low >=60 [facility] Comment on above: Performed By: #### L IPA, CMP, CK, HSTROPN ####[facility] Tyifrulxcr3497 [place] [address]Dr. Lizandro Hemphill Globulin (S) [Mass/Vol] 3.8 g/dL Normal [facility] Comment on above: Performed By: #### L IPA, CMP, CK, HSTROPN ####[facility] Xzoxdfjkqu8178 [place] [address]Dr. Lizandro Hemphill Glucose [Mass/Vol] 92 mg/dL Normal 74-106 [facility] Comment on above: Performed By: #### L IPA, CMP, CK, HSTROPN ####[facility] Tswjxbipan8477 [place] [address]Dr. Lizandro eHmphill Potassium [Moles/Vol] 3.6 mmol/L Normal 3.5-5.1 [facility] Comment on above: Performed By: #### L IPA, CMP, CK, HSTROPN ####[facility] Fhbqrhnrwb[address] [place], [place] [address]Dr. Lizandro Hemphill Protein [Mass/Vol] 7.6 g/dL Normal 6.4-8.2 [facility] Comment on above: Performed By: #### L IPA, CMP, CK, HSTROPN ####[facility] Mgrnqjreyr57[address] [place], [place] [address]Dr. Lizandro Hemphill Sodium [Moles/Vol] 141 mmol/L Normal 136-145 [facility] Comment on above: Performed By: #### L IPA, CMP, CK, HSTROPN ####[facility] Slfscnxwfl[address] [place], [place] [address]Dr. Lizandro Hemphill Urea nitrogen [Mass/Vol] 22.0 mg/dL Critically high 7.0-18.0 [facility] Comment on above: Performed By: #### L IPA, CMP, CK, HSTROPN ####[facility] Rktsaddmkq3144 [place] [id number]. Lizandro Hemphill Urea nitrogen/Creatinin e [Mass ratio] 19.6 mg/mg Normal [facility] Comment on above: Performed By: #### L IPA, CMP, CK, HSTROPN ####[facility] Lpfsopweod7375 [place] [id number]. Lizandro Hemphill TROPONIN, HIGH SENSITIVITYon 05-26-2022 HSTROP 8.9 pg/mL Normal 4.0-51.3 [facility] Comment on above: Result Comment: CUT- OFF POINTS HAVE BEEN ESTABLISHED BASED ON THE FOURTH UNIVERSAL DEFINITIONS OF MYOCARDIALINFARCTION. THE UPPER REFERENCE LIMIT (URL) OF TROPONIN, DEFINED THE 99TH PERCENTILE OFcTnI DISTRIBUTION IN A REFERENCE POPULATION, HAS BEEN CONFIRMED THE DECISION THRESHOLDFOR [place] DIAGNOSIS. Performed By: #### L IPA, CMP, CK, HSTROPN ####[facility] Gyqetlsqkz0750 [place] [address]Dr. Lizandro Hemphill XR CHEST 1 Von 05-26-2022 XR CHEST 1 V Normal [facility] TROPONIN, HIGH SENSITIVITYon 05-23-2022 HSTROP 9.8 pg/mL Normal 4.0-51.3 [facility] Comment on above: Result Comment: CUT- OFF POINTS HAVE BEEN ESTABLISHED BASED ON THE FOURTH UNIVERSAL DEFINITIONS OF MYOCARDIALINFARCTION. THE UPPER REFERENCE LIMIT (URL) OF TROPONIN, DEFINED THE 99TH PERCENTILE OFcTnI DISTRIBUTION IN A REFERENCE POPULATION, HAS BEEN CONFIRMED THE DECISION THRESHOLDFOR [place] DIAGNOSIS. Performed By: #### H STROPN ####[facility] Ppvcxvhcjo8913 [place] [phone]. Lizandro Hemphill CBC AUTO DIFFon 05-22-2022 BASO # 0.1 103/ul Normal 0.0-0.1 [facility] Comment on above: Performed By: #### C BC ####[facility] Ocwrluxsid3476 [place] [id number]. Lizandro Joby Basophils/100 WBC (Bld) 0.9 % Normal 0.2-2.0 [facility] Comment on above: Performed By: #### C BC ####[facility] [id number] [place] [id number]. Lizandro Hemphill EO # 0.0 103/ul Normal 0.0-0.7 [facility] Comment on above: Performed By: #### C BC ####[facility] [id number] [place] [id number]. Lizandro Hemphill Eosinophils/100 WBC (Bld) 0.1 % Critically low 0.9-7.0 [facility] Comment on above: Performed By: #### C BC ####[facility] Kkfvoyjhbj[address] [place], [place] [address]Dr. Lizandro Hemphill Erythrocyte distribution width (RBC) [Ratio] 19.3 % Critically high 11.0-15.0 [facility] Comment on above: Performed By: #### C BC ####[facility] Cbvdbwhcbi75[address] [place], [place] [address]Dr. Lizandro Hemphill Hematocrit (Bld) [Volume fraction] 31.1 % Critically low 36.0-48.0 [facility] Comment on above: Performed By: #### C BC ####[facility] Fvchahrxhg[address] [place], [place] [address]Dr. Lizandro Hemphill Hemoglobin (Bld) [Mass/Vol] 9.8 g/dL Critically low 12.0-16.0 [facility] Comment on above: Performed By: #### C BC ####[facility] Gewjvkygra[address] [place], [place] [address]Dr. Lizandro Hemphill IG # 0.04 10e3/ul Critically high 0.00-0.03 [facility] Comment on above: Performed By: #### C BC ####[facility] Ddehyjirah216[address] [place], [place] [address]Dr. Lizandro Hemphill IG % 0.4 % Normal 0.0-0.5 [facility] Comment on above: Performed By: #### C BC ####[facility] Sequnlertl[address] [place], [place] [address]Dr. Lizandro Hemphill LYMPH # 1.5 103/ul Normal 1.2-3.8 [facility] Comment on above: Performed By: #### C BC ####[facility] Epyrsvdira08[address] [place] [address]Dr. Lizandro Hemphill Lymphocytes/100 WBC (Bld) 15.1 % Critically low 20.5-60.0 [facility] Comment on above: Performed By: #### C BC ####[facility] Bdgjlxoked5340 [place] [address]Dr. Lizandro Hemphill MANUAL DIFF REQ NO Normal [facility] Comment on above: Performed By: #### C BC ####[facility] Klmeiafowo5345 [place] [address]Dr. Lizandro Hemphill MCH (RBC) [Entitic mass] 24.7 pg Critically low 26.7-34.0 [facility] Comment on above: Performed By: #### C BC ####[facility] Cxtakpdhwz212[address] [place], [place] [address]Dr. Lizandro Hemphill MCHC (RBC) [Mass/Vol] 31.5 g/dL Normal 29.9-35.2 [facility] Comment on above: Performed By: #### C BC ####[facility] Dymseetghp039[address] [place], [place] [address]Dr. Lizandro Hemphill MCV (RBC) [Entitic vol] 78.3 fL Critically low 81.0-99.0 [facility] Comment on above: Performed By: #### C BC ####[facility] Zftcxnlpcp0[address] [place], [place] [address]Dr. Lizandro Hemphill MONO # 1.1 103/ul Critically high 0.3-0.8 [facility] Comment on above: Performed By: #### C BC ####[facility] Igjrkfsxng206[address] [place], [place] [address]Dr. Lizandro Hemphill Monocytes/100 WBC (Bld) 11.4 % Normal 1.7-12.0 [facility] Comment on above: Performed By: #### C BC ####[facility] Hztgbfjqxk973686 [address] [place], [place] [address]Dr. Lizandro Hemphill NEUT # 7.1 103/ul Critically high 1.4-6.5 [facility] Comment on above: Performed By: #### C BC ####[facility] Nzkuynsjnr7473 [place] [id number]. Lizandro Hemphill Neutrophils/100 WBC (Bld) 72.1 % Normal 43.0-75.0 [facility] Comment on above: Performed By: #### C BC ####[facility] Tatpnvfeki6886 [place], [place] [address]Wh. Lizandro Hemphill Platelet mean volume (Bld) [Entitic vol] 10.3 fL Normal 9.5-13.5 [facility] Comment on above: Performed By: #### C BC ####[facility] Jvndmhhmaw0250 [place] [id number]. Lizandro Hemphill PLT 491 103/ul Critically high 150-450 [facility] Comment on above: Performed By: #### C BC ####[facility] Jgoaalqkaw5601 [place] [id number]. Lizandro Hemphill RBC 3.97 106/ul Critically low 4.20-5.40 [facility] Comment on above: Performed By: #### C BC ####[facility] Becggysxaw8047 [place] [id number]. Lizandro Hemphill WBC 9.8 103/ul Normal 4.0-11.0 [facility] Comment on above: Performed By: #### C BC ####[facility] Ixgvjzsepe6629 [place] [id number]. Lizandro Hemphill D-DIMERon 05-22-2022 D-DIMER 0.37 mg/L FEU Normal <=0.59 [facility] Comment on above: Performed By: #### D DIM ####[facility] Pqssfvrsvv9560 [place] [id number]. Lizandro Hemphill D-DIMER COMMENTS SEE BELOW Normal The [facility] Comment on above: Result Comment: Incr [...] generalized hospitalization. Performed By: #### D DIM ####[facility] Ycltgakubl87[address] [place], [place] [address]Dr. Lizandro Hemphill LACTATE/LACTIC ACIDon 2022 Lactate [Moles/Vol] 2.7 mmol/L Critically high 0.4-1.9 [facility] Comment on above: Performed By: #### L ACT ####[facility] Azchopaytc6380[address] [place], [place] [address]Dr. Lizandro Hemphill PROF 14(COMP METB)on 023 Albumin [Mass/Vol] 4.1 g/dL Normal 3.4-5.0 [facility] Comment on above: Performed By: #### C MARGARITA, HSTROPN ####[facility] Poefosmvbm924[address] [place], [place] [address]Dr. Lizandro Hemphill Albumin/Globulin [Mass ratio] 1.1 {ratio} Normal [facility] Comment on above: Performed By: #### C MARGARITA, HSTROPN ####[facility] Ndnbxjygaq025[address] [place], [place] [address]Dr. Lizandro Hemphill ALP [Catalytic activity/Vol] 142 U/L Critically high 46-116 [facility] Comment on above: Performed By: #### C MP, HSTROPN ####[facility] Ewxnnzzxop5893 [place] [address]Dr. Lizandro Hemphill ALT [Catalytic activity/Vol] 37 U/L Normal 14-59 [facility] Comment on above: Performed By: #### C MP, HSTROPN ####[facility] Bfeipgkhqk642[address] [place], [place] [address]Dr. Lizandro Hemphill Anion gap [Moles/Vol] 20.2 mmol/L Normal [facility] Comment on above: Performed By: #### C MP, HSTROPN ####[facility] Dfuszdfuxd9200 [place] [address]Dr. Lizandro Hemphill AST [Catalytic activity/Vol] 38 U/L Critically high 15-37 [facility] Comment on above: Performed By: #### C MARGARITA, HSTROPN ####[facility] Kmoannebhk7384 [place] [address]Dr. Lizandro Hemphill Bilirubin [Mass/Vol] 0.5 mg/dL Normal 0.2-1.0 [facility] Comment on above: Performed By: #### C MARGARITA, HSTROPN ####[facility] Omymtkigxo144[address] [place], [place] [address]Dr. Lizandro Hemphill Calcium [Mass/Vol] 10.0 mg/dL Normal 8.5-10.1 [facility] Comment on above: Performed By: #### C MARGARITA, HSTROPN ####[facility] Qtwvclikzr507[address] [place], [place] [address]Dr. Lizandro Hemphill Chloride [Moles/Vol] 99 mmol/L Normal 98-107 [facility] Comment on above: Performed By: #### C MARGARITA, HSTROPN ####[facility] Cgbsnzqdyo0630[address] [place], [place] [address]Dr. Lizandro Hemphill CO2 [Moles/Vol] 21.8 mmol/L Normal 21.0-32.0 The [facility] Comment on above: Performed By: #### C MARGARITA, HSTROPN ####[facility] Ycumqotsel811[address] [place], [place] [address]Dr. Lizandro Hemphill Creatinine [Mass/Vol] 1.19 mg/dL Critically high 0.55-1.02 [facility] Comment on above: Performed By: #### C MARGARITA, HSTROPN ####[facility] Vzolrhnttp244[address] [place], [place] [address]Dr. Lizandro Hemphill EGFR-AF SOMALI 56 mL/min/1.73m2 Critically low >=60 [facility] Comment on above: Performed By: #### C MARGARITA, HSTROPN ####[facility] Tjlszoauyy9887 [place] [address]Dr. Lizandro Hemphill EGFR-NON AF SOMALI 46 mL/min/1.73m2 Critically low >=60 [facility] Comment on above: Performed By: #### C MARGARITA, HSTROPN ####[facility] Feznttmzcn8131 [place] [address]Dr. Lizandro Hemphill Globulin (S) [Mass/Vol] 3.8 g/dL Normal [facility] Comment on above: Performed By: #### C MP, HSTROPN ####[facility] Cvduwmdyxh0825 [place] [address]Dr. Shanikaannie Hemphill Glucose [Mass/Vol] 107 mg/dL Critically high 74-106 [facility] Comment on above: Performed By: #### C MP, HSTROPN ####[facility] Djfnbtswcq9366 [place] [address]Dr. Lizandro Hemphill Potassium [Moles/Vol] 4.0 mmol/L Normal 3.5-5.1 [facility] Comment on above: Performed By: #### C MP, HSTROPN ####[facility] Vtanfyaqvk9063 [place] [address]Dr. Shanikaannie Hemphill Protein [Mass/Vol] 7.9 g/dL Normal 6.4-8.2 [facility] Comment on above: Performed By: #### C MP, HSTROPN ####[facility] Vlbonsuuoo8534[address] [place], [place] [address]Dr. Lizandro Hemphill Sodium [Moles/Vol] 137 mmol/L Normal 136-145 [facility] Comment on above: Performed By: #### C MP, HSTROPN ####[facility] Qoxxxcveiq7788 [place] [address]Dr. Lizandro Hemphill Urea nitrogen [Mass/Vol] 20.0 mg/dL Critically high 7.0-18.0 [facility] Comment on above: Performed By: #### C MP, HSTROPN ####[facility] Oarvuprlox8050[address] [place], [place] [address]Dr. Lizandro Hemphill Urea nitrogen/Creatinin e [Mass ratio] 16.8 mg/mg Normal [facility] Comment on above: Performed By: #### C MP, HSTROPN ####[facility] Wdzhqtiges9157 [place] [address]Dr. Lizandro Hemphill TROPONIN, HIGH SENSITIVITYon 05-22-2022 HSTROP 10.2 pg/mL Normal 4.0-51.3 [facility] Comment on above: Result Comment: CUT- OFF POINTS HAVE BEEN ESTABLISHED BASED ON THE FOURTH UNIVERSAL DEFINITIONS OF MYOCARDIALINFARCTION. THE UPPER REFERENCE LIMIT (URL) OF TROPONIN, DEFINED THE 99TH PERCENTILE OFcTnI DISTRIBUTION IN A REFERENCE POPULATION, HAS BEEN CONFIRMED THE DECISION THRESHOLDFOR W[place] DIAGNOSIS. Performed By: #### C MP, HSTROPN ####[facility] Jsghaqcobz2844 [place] [address]Dr. Lizandro Hemphill XR CHEST 1 Von 05-22-2022 XR CHEST 1 V Normal [facility] CBC AUTO DIFFon 05-06-2022 BASO # 0.1 103/ul Normal 0.0-0.1 [facility] Comment on above: Performed By: #### C BC ####[facility] Jpvlrjjjds89[address] [place], [place] [address]Dr. Lizandro Hemphill Basophils/100 WBC (Bld) 0.9 % Normal 0.2-2.0 [facility] Comment on above: Performed By: #### C BC ####[facility] Snaxxudjip95[address] [place], [place] [address]Dr. Lizandro Hemphill EO # 0.1 103/ul Normal 0.0-0.7 [facility] Comment on above: Performed By: #### C BC ####[facility] Uumhwjevzq4463 [place] [address]Dr. Lizandro Hemphill Eosinophils/100 WBC (Bld) 0.9 % Normal 0.9-7.0 [facility] Comment on above: Performed By: #### C BC ####[facility] Vjmdfqmgxe616[address] [place], [place] [address]Dr. Lizandro Hemphill Erythrocyte distribution width (RBC) [Ratio] 18.9 % Critically high 11.0-15.0 [facility] Comment on above: Performed By: #### C BC ####[facility] Yoshdywahz32[address] [place], [place] [address]Dr. Lizandro Hemphill Hematocrit (Bld) [Volume fraction] 27.0 % Critically low 36.0-48.0 [facility] Comment on above: Performed By: #### C BC ####[facility] Sasoxcmetw8757 [place] [address]DrCiro Hemphill Hemoglobin (Bld) [Mass/Vol] 8.2 g/dL Critically low 12.0-16.0 [facility] Comment on above: Performed By: #### C BC ####[facility] Gxmtickemc3833 [place] [address]DrCiro Hemphill IG # 0.01 10e3/ul Normal 0.00-0.03 [facility] Comment on above: Performed By: #### C BC ####[facility] Xkkcpumtmo7197 [place] [address]DrCiro Hemphill IG % 0.2 % Normal 0.0-0.5 [facility] Comment on above: Performed By: #### C BC ####[facility] Czbbhupahj539[address] [place], [place] [address]DrCiro Hemphill LYMPH # 1.1 103/ul Critically low 1.2-3.8 [facility] [place] Comment on above: Performed By: #### C BC ####[facility] Fzgvwdaveu2600 [place] [address]DrCiro Hemphill Lymphocytes/100 WBC (Bld) 17.0 % Critically low 20.5-60.0 [facility] Comment on above: Performed By: #### C BC ####[facility] Byzqrdcndh4502 [place] [address]DrCiro Hemphill MANUAL DIFF REQ NO Normal [facility] Comment on above: Performed By: #### C BC ####[facility] Cthzmjoubd9916 [place] [id number] Hemphill MCH (RBC) [Entitic mass] 25.8 pg Critically low 26.7-34.0 [facility] Comment on above: Performed By: #### C BC ####[facility] Yiljcmkhuj5706 [place] [address]DrCiro Hemphill MCHC (RBC) [Mass/Vol] 30.4 g/dL Normal 29.9-35.2 [facility] Comment on above: Performed By: #### C BC ####[facility] Gzlmvzesjf2532 [place] [address]Dr. Lizandro Hemphill MCV (RBC) [Entitic vol] 84.9 fL Normal 81.0-99.0 [facility] Comment on above: Performed By: #### C BC ####[facility] Csxvepynpo0027 [place] [address]Dr. Lizandro Hemphill MONO # 0.7 103/ul Normal 0.3-0.8 [facility] Comment on above: Performed By: #### C BC ####[facility] Knlusgqznr8431 [place] [address]Dr. Lizandro Joby Monocytes/100 WBC (Bld) 11.6 % Normal 1.7-12.0 [facility] Comment on above: Performed By: #### C BC ####[facility] Dctjdedxzd[address] [place], [place] [address]Dr. Lizandro Hemphill NEUT # 4.4 103/ul Normal 1.4-6.5 [facility] Comment on above: Performed By: #### C BC ####[facility] Cgynoaiffq805[address] [place], [place] [address]Dr. Lizandro Joby Neutrophils/100 WBC (Bld) 69.4 % Normal 43.0-75.0 [facility] Comment on above: Performed By: #### C BC ####[facility] Clrvhuygic370[address] [place], [place] [address]Dr. Lizandro Joby Platelet mean volume (Bld) [Entitic vol] 10.8 fL Normal 9.5-13.5 [facility] Comment on above: Performed By: #### C BC ####[facility] Bggenfvrvj[address] [place], [place] [id number]. Lizandro Hemphill PLT 291 103/ul Normal 150-450 [facility] Comment on above: Performed By: #### C BC ####[facility] Nuanykzoyq3024 [place] [id number]. Lizandro Hemphill RBC 3.18 106/ul Critically low 4.20-5.40 [facility] Comment on above: Performed By: #### C BC ####[facility] Imxlfjagmj0397 [place] [address]Dr. Lizandro Hemphill WBC 6.4 103/ul Normal 4.0-11.0 [facility] Comment on above: Performed By: #### C BC ####[facility] Eufjmhabav8695 [place] [address]Dr. Lizandro Hemphill PROF 14(COMP METB)on 023 Albumin [Mass/Vol] 2.4 g/dL Critically low 3.4-5.0 [facility] Comment on above: Performed By: #### C MP ####[facility] Hhwgjjswyl9926 [place] [address]Dr. Lizandro Hemphill Albumin/Globulin [Mass ratio] 0.8 {ratio} Normal [facility] Comment on above: Performed By: #### C MP ####[facility] Paosgptwvv5336 [place] [address]Dr. Lizandro Hemphill ALP [Catalytic activity/Vol] 121 U/L Critically high 46-116 [facility] Comment on above: Performed By: #### C MP ####[facility] Preggdgijo6214 [place] [address]Dr. Lizandro Hemphill ALT [Catalytic activity/Vol] 17 U/L Normal 14-59 [facility] Comment on above: Performed By: #### C MP ####[facility] Ormfitnsoq4073 [place] [address]Dr. Lizandro Hemphill Anion gap [Moles/Vol] 10.9 mmol/L Normal [facility] Comment on above: Performed By: #### C MP ####[facility] Idvudgmlee1157 [place] [address]Dr. Lizandro Hemphill AST [Catalytic activity/Vol] 23 U/L Normal 15-37 [facility] Comment on above: Performed By: #### C MP ####[facility] Hatyjajipj1280 [place] [address]Dr. Lizandro Hepmhill Bilirubin [Mass/Vol] 0.2 mg/dL Normal 0.2-1.0 [facility] Comment on above: Performed By: #### C MP ####[facility] Kckzdmfpmz2752 [place] [address]Dr. Lizandro Hemphill Calcium [Mass/Vol] 8.3 mg/dL Critically low 8.5-10.1 [facility] Comment on above: Performed By: #### C MP ####[facility] Qygqtgycif1011 [place] [address]Dr. Lizandro Hepmhill Chloride [Moles/Vol] 106 mmol/L Normal 98-107 [facility] Comment on above: Performed By: #### C MP ####[facility] Ntjfsxbldu9719 [place] [address]Dr. Lizandro Hemphill CO2 [Moles/Vol] 26.7 mmol/L Normal 21.0-32.0 The [facility] Comment on above: Performed By: #### C MP ####[facility] Tjecujjddo15[address] [place], [place] [address]Dr. Lizandro Hemphill Creatinine [Mass/Vol] 0.88 mg/dL Normal 0.55-1.02 [facility] Comment on above: Performed By: #### C MP ####[facility] Rulngbglce9932[address] [place], [place] [address]Dr. Lizandro Hemphill EGFR-AF SOMALI >60 Normal >=60 [facility] Comment on above: Performed By: #### C MP ####[facility] Uclvjduwfv3392 [place] [address]Dr. Lizandro Hemphill EGFR-NON AF SOMALI >60 Normal >=60 [facility] Comment on above: Performed By: #### C MP ####[facility] Hhhzxthvcc1188 [place] [address]Dr. Lizandro Hemphill Globulin (S) [Mass/Vol] 3.0 g/dL Normal [facility] Comment on above: Performed By: #### C MP ####[facility] Gamilpisag3286 [place] [address]Dr. Lizandro Hemphill Glucose [Mass/Vol] 101 mg/dL Normal 74-106 [facility] Comment on above: Performed By: #### C MP ####[facility] Kiuybbjycf5724 [place] [address]Dr. Lizandro Hemphill Potassium [Moles/Vol] 3.6 mmol/L Normal 3.5-5.1 [facility] Comment on above: Performed By: #### C MP ####[facility] Xpupaswtpr0020 [place] [address]Dr. Lizandro Hemphill Protein [Mass/Vol] 5.4 g/dL Critically low 6.4-8.2 [facility] Comment on above: Performed By: #### C MP ####[facility] Wiihgpalet3035[address] [place], [place] [address]Dr. Lizandro Hemphill Sodium [Moles/Vol] 140 mmol/L Normal 136-145 [facility] Comment on above: Performed By: #### C MP ####[facility] Xhnornthhs577[address] [place], [place] [address]Dr. Lizandro Hemphill Urea nitrogen [Mass/Vol] 11.0 mg/dL Normal 7.0-18.0 [facility] Comment on above: Performed By: #### C MP ####[facility] Xistsioamt289[address] [place], [place] [address]Dr. Lizandro Hemphill Urea nitrogen/Creatinin e [Mass ratio] 12.5 mg/mg Normal [facility] Comment on above: Performed By: #### C MP ####[facility] Bqbdmkovoj2447[address] [place], [place] [address]Dr. Lizandro Hemphill PROTIMEon 05-06-2022 INR Coag (PPP) [Relative time] 1.49 {INR} Normal [facility] Comment on above: Performed By: #### P T ####[facility] Wkglrvspra23[address] [place], [place] [address]Dr. Lizandro Hemphill INR GUIDELINES SEE BELOW Normal [facility] Comment on above: Result Comment: GUEVARA RED INR: 2.0 - 3.0 CONDITIONS NOT LISTED BELOW 2.5 - 3.5 FOR PROSTHETIC HEART VALVE REPLACEMENT 2.5 - 3.5 RECURRENT THROMBOSIS Performed By: #### P T ####[facility] Cokwkazcvi4444[address] [place], [place] [address]Dr. Lizandro Hemphill PT Coag (PPP) [Time] 15.4 s Critically high 9.0-11.6 [facility] Comment on above: Performed By: #### P T ####[facility] Krkjteglxx2395[address] [place], [place] [address]Dr. Lizandro Hemphill CBC AUTO DIFFon 05-05-2022 BASO # 0.0 103/ul Normal 0.0-0.1 [facility] Comment on above: Performed By: #### C BC ####[facility] Dtcktxltrx310[address] [place], [place] [address]Dr. Lizandro Hemphill Basophils/100 WBC (Bld) 0.6 % Normal 0.2-2.0 [facility] Comment on above: Performed By: #### C BC ####[facility] Kfgwalpahq2512[address] [place], [place] [address]Dr. Lizandro Hemphill EO # 0.0 103/ul Normal 0.0-0.7 [facility] Comment on above: Performed By: #### C BC ####[facility] Ohfdrynezo6535[address] [place], [place] [address]Dr. Lizandro Hemphill Eosinophils/100 WBC (Bld) 0.6 % Critically low 0.9-7.0 [facility] Comment on above: Performed By: #### C BC ####[facility] Qqagefmfcs9823[address] [place], [place] [address]Dr. Lizandro Hemphill Erythrocyte distribution width (RBC) [Ratio] 19.1 % Critically high 11.0-15.0 [facility] Comment on above: Performed By: #### C BC ####[facility] Bzaegiorvs6760[address] [place], [place] [address]Dr. Lizandro Hemphill Hematocrit (Bld) [Volume fraction] 29.6 % Critically low 36.0-48.0 [facility] Comment on above: Performed By: #### C BC ####[facility] Bewmgiojzd764[address] [place], [place] [address]Dr. Lizandro Hemphill Hemoglobin (Bld) [Mass/Vol] 9.1 g/dL Critically low 12.0-16.0 [facility] Comment on above: Performed By: #### C BC ####[facility] Mqrjdpffso4472 [place] [id number]. Lizandro Hemphill IG # 0.04 10e3/ul Critically high 0.00-0.03 [facility] Comment on above: Performed By: #### C BC ####[facility] Nlsncpmgwo4676 [place] [id number]. Lizandro Hemphill IG % 0.6 % Critically high 0.0-0.5 [facility] Comment on above: Performed By: #### C BC ####[facility] Xbqgrpghot424[address] [place], [place] [address]Dr. Lizandro Hemphill LYMPH # 1.1 103/ul Critically low 1.2-3.8 [facility] [place] Comment on above: Performed By: #### C BC ####[facility] Zkjuhiqjlb1941 [place] [address]Dr. Lizandro Hemphill Lymphocytes/100 WBC (Bld) 17.8 % Critically low 20.5-60.0 [facility] Comment on above: Performed By: #### C BC ####[facility] Osrhxpzzun4134 [place] [address]Dr. Lizandro Hemphill MANUAL DIFF REQ NO Normal [facility] Comment on above: Performed By: #### C BC ####[facility] Yreagfjdpv64[address] [place], [place] [address]Dr. Lizandro Hemphill MCH (RBC) [Entitic mass] 26.7 pg Normal 26.7-34.0 [facility] Comment on above: Performed By: #### C BC ####[facility] Hkxsnwxvcf819[address] [place], [place] [address]Dr. Lizandro Hemphill MCHC (RBC) [Mass/Vol] 30.7 g/dL Normal 29.9-35.2 [facility] Comment on above: Performed By: #### C BC ####[facility] Vuoxbhzgma7487[address] [place], [place] [address]Dr. Lizandro Hemphill MCV (RBC) [Entitic vol] 86.8 fL Normal 81.0-99.0 [facility] Comment on above: Performed By: #### C BC ####[facility] Qaighlumrv0228 [place] [id number]. Lizandro Hemphill MONO # 0.8 103/ul Normal 0.3-0.8 [facility] Comment on above: Performed By: #### C BC ####[facility] Ztyjsfdyrt6299 [place] [id number]. Lizandro Hemphill Monocytes/100 WBC (Bld) 12.2 % Critically high 1.7-12.0 [facility] Comment on above: Performed By: #### C BC ####[facility] Gorpwevkvp6937 [place] [phone]. Lizandro Hemphill NEUT # 4.3 103/ul Normal 1.4-6.5 [facility] Comment on above: Performed By: #### C BC ####[facility] Xlibzzjllw7721 [place] [id number]. Lizandro Hemphill Neutrophils/100 WBC (Bld) 68.2 % Normal 43.0-75.0 [facility] Comment on above: Performed By: #### C BC ####[facility] Ffgmkpocsp0706 [place] [phone]. Lizandro Hemphill Platelet mean volume (Bld) [Entitic vol] 10.2 fL Normal 9.5-13.5 [facility] Comment on above: Performed By: #### C BC ####[facility] Jtwutzvqvz0124 [place] [id number]. Lizandro Hemphill PLT 305 103/ul Normal 150-450 [facility] Comment on above: Performed By: #### C BC ####[facility] Bjrxbmgioq9459 [place] [phone]. Lizandro Hemphill RBC 3.41 106/ul Critically low 4.20-5.40 [facility] Comment on above: Performed By: #### C BC ####[facility] Wirpjebmux0916 [place] [id number]. Lizandro Hemphill WBC 6.3 103/ul Normal 4.0-11.0 [facility] Comment on above: Performed By: #### C BC ####[facility] Sseutlvvxs[address] [place], [place] [address]Dr. Lizandro Hemphill PROF 14(COMP METB)on 023 Albumin [Mass/Vol] 2.3 g/dL Critically low 3.4-5.0 [facility] Comment on above: Performed By: #### C MP ####[facility] Stlbxyktqm3671 [place] [address]Dr. Lizandro Hemphill Albumin/Globulin [Mass ratio] 0.8 {ratio} Normal [facility] Comment on above: Performed By: #### C MP ####[facility] Ejltkwgbyp637[address] [place], [place] [address]Dr. Lizandro Hemphill ALP [Catalytic activity/Vol] 121 U/L Critically high 46-116 [facility] Comment on above: Performed By: #### C MP ####[facility] Tyxalrcnjc7747[address] [place], [place] [address]Dr. Lizandro Hemphill ALT [Catalytic activity/Vol] 19 U/L Normal 14-59 [facility] Comment on above: Performed By: #### C MP ####[facility] Jyoxfirapd86[address] [place], [place] [address]Dr. Lizandro Hemphill Anion gap [Moles/Vol] 13.4 mmol/L Normal [facility] Comment on above: Performed By: #### C MP ####[facility] Wtbtibiyil7950[address] [place], [place] [address]Dr. Lizandro Hemphill AST [Catalytic activity/Vol] 30 U/L Normal 15-37 [facility] Comment on above: Performed By: #### C MP ####[facility] Okdkkycpmi237[address] [place], [place] [address]Dr. Lizandro Hemphill Bilirubin [Mass/Vol] 0.1 mg/dL Critically low 0.2-1.0 [facility] Comment on above: Performed By: #### C MP ####[facility] Kspjiuidub[address] [place], [place] [address]Dr. Lizandro Hemphill Calcium [Mass/Vol] 7.9 mg/dL Critically low 8.5-10.1 [facility] Comment on above: Performed By: #### C MP ####[facility] Mvxwjeemaz8331 [place] [id number]. Lizandro Hemphill Chloride [Moles/Vol] 107 mmol/L Normal 98-107 [facility] Comment on above: Performed By: #### C MP ####[facility] Uipqzxyqin4862 [place] [id number]. Lizandro Hemphill CO2 [Moles/Vol] 22.7 mmol/L Normal 21.0-32.0 The [facility] Comment on above: Performed By: #### C MP ####[facility] Ezuifbadzi3942 [place] [address]Dr. Lizandro Hemphill Creatinine [Mass/Vol] 1.37 mg/dL Critically high 0.55-1.02 [facility] Comment on above: Performed By: #### C MP ####[facility] Cxfhxeovgo40[address] [place], [place] [address]Dr. Lizandro Joby EGFR-AF SOMALI 48 mL/min/1.73m2 Critically low >=60 [facility] Comment on above: Performed By: #### C MP ####[facility] Wvzevijwed7536 [place] [address]Dr. Lizandro Hemphill EGFR-NON AF SOMALI 39 mL/min/1.73m2 Critically low >=60 [facility] Comment on above: Performed By: #### C MP ####[facility] Wjeymcfwmu6898 [place] [address]Dr. Lizandro Hemphill Globulin (S) [Mass/Vol] 2.9 g/dL Normal [facility] Comment on above: Performed By: #### C MP ####[facility] Xaxqceaahm8998 [place] [address]Dr. Lizandro Hemphill Glucose [Mass/Vol] 120 mg/dL Critically high 74-106 [facility] Comment on above: Performed By: #### C MP ####[facility] Lnsrcbpgvf4136 [place] [address]Dr. Lizandro Hemphill Potassium [Moles/Vol] 4.1 mmol/L Normal 3.5-5.1 [facility] Comment on above: Performed By: #### C MP ####[facility] Xupgufjses9486 [place] [address]Dr. Lizandro Hemphill Protein [Mass/Vol] 5.2 g/dL Critically low 6.4-8.2 [facility] Comment on above: Performed By: #### C MP ####[facility] Qbjpckzsxw[address] [place], [place] [address]Dr. Lizandro Hemphill Sodium [Moles/Vol] 139 mmol/L Normal 136-145 [facility] Comment on above: Performed By: #### C MP ####[facility] Cpfktlfdoe[address] [place], [place] [address]Dr. Lizandro Hemphill Urea nitrogen [Mass/Vol] 19.0 mg/dL Critically high 7.0-18.0 [facility] Comment on above: Performed By: #### C MP ####[facility] Yxtdjesadl472[address] [place], [place] [address]Dr. Lizandro Hemphill Urea nitrogen/Creatinin e [Mass ratio] 13.9 mg/mg Normal [facility] Comment on above: Performed By: #### C MP ####[facility] Yckwhhprth1[address] [place], [place] [address]Dr. Lizandro Hemphill PROTIMEon 05-05-2022 INR Coag (PPP) [Relative time] 1.07 {INR} Normal [facility] Comment on above: Performed By: #### P T ####[facility] Eiprbsoprb54[address] [place], [place] [address]Dr. Lizandro Hemphill INR GUIDELINES SEE BELOW Normal [facility] Comment on above: Result Comment: GUEVARA RED INR: 2.0 - 3.0 CONDITIONS NOT LISTED BELOW 2.5 - 3.5 FOR PROSTHETIC HEART VALVE REPLACEMENT 2.5 - 3.5 RECURRENT THROMBOSIS Performed By: #### P T ####[facility] Loddihzfda66[address] [place], [place] [address]Dr. Lizandro Hemphill PT Coag (PPP) [Time] 11.3 s Normal 9.0-11.6 [facility] Comment on above: Performed By: #### P T ####[facility] Gnxoospnpi027[address] [place], [place] [address]Dr. Lizandro Hemphill CBC AUTO DIFFon 05-04-2022 BASO # 0.1 103/ul Normal 0.0-0.1 [facility] Comment on above: Performed By: #### C BC ####[facility] Hvytkoicsj7650 [place] [id number]. Lizandro Hemphill Basophils/100 WBC (Bld) 1.2 % Normal 0.2-2.0 [facility] Comment on above: Performed By: #### C BC ####[facility] Ivnntjqoek8190 [place] [phone]. Lizandro Hemphill EO # 0.0 103/ul Normal 0.0-0.7 [facility] Comment on above: Performed By: #### C BC ####[facility] Dxajhmyiqb36[address] [place], [place] [address]Dr. Lizandro Hemphill Eosinophils/100 WBC (Bld) 0.5 % Critically low 0.9-7.0 [facility] Comment on above: Performed By: #### C BC ####[facility] Buhrlsapab09[address] [place], [place] [address]Dr. Lizandro Hemphill Erythrocyte distribution width (RBC) [Ratio] 18.8 % Critically high 11.0-15.0 [facility] Comment on above: Performed By: #### C BC ####[facility] Bwwsfqyqjj13[address] [place], [place] [id number]. Lizandro Hemphill Hematocrit (Bld) [Volume fraction] 26.6 % Critically low 36.0-48.0 [facility] Comment on above: Performed By: #### C BC ####[facility] Yqwckqqwkl09[address] [place], [place] [id number]. Lizandro Hemphill Hemoglobin (Bld) [Mass/Vol] 8.2 g/dL Critically low 12.0-16.0 [facility] Comment on above: Performed By: #### C BC ####[facility] Phatipmjuf9137 [place] [phone]. Lizandro Joby IG # 0.02 10e3/ul Normal 0.00-0.03 [facility] Comment on above: Performed By: #### C BC ####[facility] Vusjfzrxip1870 [place] [phone]. Lizandro Joby IG % 0.4 % Normal 0.0-0.5 [facility] Comment on above: Performed By: #### C BC ####[facility] Lrcrawwsis8637 [place] [phone]. Lizandro Hemphill LYMPH # 1.4 103/ul Normal 1.2-3.8 [facility] Comment on above: Performed By: #### C BC ####[facility] Vqpnwdzfnd2025 [place] [phone]. Lizandro Joby Lymphocytes/100 WBC (Bld) 24.5 % Normal 20.5-60.0 [facility] Comment on above: Performed By: #### C BC ####[facility] Uygpfkowpe3154 [place] [address]Dr. Lizandro Joby MANUAL DIFF REQ NO Normal [facility] Comment on above: Performed By: #### C BC ####[facility] Lroeeeqbxw9897 [place] [phone]. Lizandro Hemphill MCH (RBC) [Entitic mass] 26.4 pg Critically low 26.7-34.0 [facility] Comment on above: Performed By: #### C BC ####[facility] Jsjftulsrt8967 [place] [address]Dr. Lizandro Hemphill MCHC (RBC) [Mass/Vol] 30.8 g/dL Normal 29.9-35.2 [facility] Comment on above: Performed By: #### C BC ####[facility] Xinjbopliv3429 [place] [phone]. Lizandro Hemphill MCV (RBC) [Entitic vol] 85.5 fL Normal 81.0-99.0 [facility] Comment on above: Performed By: #### C BC ####[facility] Bdljarlwou47[address] [place], [place] [address]Dr. Shanikaannie Hemphill MONO # 0.7 103/ul Normal 0.3-0.8 [facility] Comment on above: Performed By: #### C BC ####[facility] Qjgxmijuub5937 [place] [phone]. Lizandro Hemphill Monocytes/100 WBC (Bld) 12.1 % Critically high 1.7-12.0 [facility] Comment on above: Performed By: #### C BC ####[facility] Xvmkanselo6573 [place] [phone]. Lizandro Hemphill NEUT # 3.5 103/ul Normal 1.4-6.5 [facility] Comment on above: Performed By: #### C BC ####[facility] Vxcrpbrafz1760 [place] [phone]. Lizandro Hemphill Neutrophils/100 WBC (Bld) 61.3 % Normal 43.0-75.0 [facility] Comment on above: Performed By: #### C BC ####[facility] Embbnzydrv0994 [place] [address]Dr. Lizandro Hemphill Platelet mean volume (Bld) [Entitic vol] 10.8 fL Normal 9.5-13.5 [facility] Comment on above: Performed By: #### C BC ####[facility] Jxglohykdf8662 [place] [phone]. Lizandro Hemphill PLT 309 103/ul Normal 150-450 [facility] Comment on above: Performed By: #### C BC ####[facility] Naigjqsjgf7153 [place] [phone]. Lizandro Hemphill RBC 3.11 106/ul Critically low 4.20-5.40 [facility] Comment on above: Performed By: #### C BC ####[facility] Cqzrfyrtkc5461 [place] [id number]. Lizandro Hemphill WBC 5.6 103/ul Normal 4.0-11.0 [facility] Comment on above: Performed By: #### C BC ####[facility] Clccvftobf9418 [place] [address]Dr. Lizandro Hem[address] CT ABD/PELVIS WO CONon 05-04 CT ABD/PELVIS WO CON Normal [facility] PROF 14(COMP METB)on 023 Albumin [Mass/Vol] 2.7 g/dL Critically low 3.4-5.0 Th [facility] Comment on above: Performed By: #### C MP ####[facility] Tlqyorprux2395 [place] [address]Dr. Lizandro Hemphill Albumin/Globulin [Mass ratio] 0.9 {ratio} Normal [facility] Comment on above: Performed By: #### C MP ####[facility] Sazhbehfjs3745 [place] [address]Dr. Lizandro Hemphill ALP [Catalytic activity/Vol] 122 U/L Critically high 46-116 [facility] Comment on above: Performed By: #### C MP ####[facility] Yinqitwwvd22[address] [place], [place] [address]Dr. Lizandro Hemphill ALT [Catalytic activity/Vol] 23 U/L Normal 14-59 [facility] Comment on above: Performed By: #### C MP ####[facility] Tftgdgqgff501[address] [place], [place] [address]Dr. Lizandro Hemphill Anion gap [Moles/Vol] 11.9 mmol/L Normal [facility] Comment on above: Performed By: #### C MP ####[facility] Tewvjzsxlj[address] [place], [place] [address]Dr. Lizandro Hemphill AST [Catalytic activity/Vol] 26 U/L Normal 15-37 [facility] Comment on above: Performed By: #### C MP ####[facility] Ickhnykxhz55[address] [place], [place] [address]Dr. Lizandro Hemphill Bilirubin [Mass/Vol] 0.3 mg/dL Normal 0.2-1.0 [facility] Comment on above: Performed By: #### C MP ####[facility] Bwkrllizhm[address] [place], [place] [address]Dr. Lizandro Hemphill Calcium [Mass/Vol] 8.4 mg/dL Critically low 8.5-10.1 Th [facility] Comment on above: Performed By: #### C MP ####[facility] Kplvqniude13[address] [place], [place] [address]Dr. Lizandro Hemphill Chloride [Moles/Vol] 106 mmol/L Normal 98-107 [facility] Comment on above: Performed By: #### C MP ####[facility] Axyqxiumpq1860 [place] [phone]. Lizandro Hemphill CO2 [Moles/Vol] 26.2 mmol/L Normal 21.0-32.0 [facility] Comment on above: Performed By: #### C MP ####[facility] Ndrfkqvrbg8261 [place] [phone]. Lizandro Hemphill Creatinine [Mass/Vol] 1.43 mg/dL Critically high 0.55-1.02 [facility] Comment on above: Performed By: #### C MP ####[facility] Txkpgfrxeh6505 [place] [phone]. Lizandro Hemphill EGFR-AF SOMALI 45 mL/min/1.73m2 Critically low >=60 [facility] Comment on above: Performed By: #### C MP ####[facility] Cytkgakjyx7313 [place] [address]Dr. Lizandro Hemphill EGFR-NON AF SOMALI 37 mL/min/1.73m2 Critically low >=60 [facility] Comment on above: Performed By: #### C MP ####[facility] Xjuvrmwbst0567 [place] [address]Dr. Lizandro Hemphill Globulin (S) [Mass/Vol] 2.9 g/dL Normal [facility] Comment on above: Performed By: #### C MP ####[facility] Hwtddmrivy8489 [place] [address]Dr. Lizandro Hemphill Glucose [Mass/Vol] 101 mg/dL Normal 74-106 [facility] Comment on above: Performed By: #### C MP ####[facility] Vjyovvpvlx6198 [place] [phone]. Lizandro Hemphill Protein [Mass/Vol] 5.6 g/dL Critically low 6.4-8.2 Th [facility] Comment on above: Performed By: #### C MP ####[facility] Qevwnpiirp6399 [place] [address]Dr. Lizandro Hemphill Sodium [Moles/Vol] 140 mmol/L Normal 136-145 [facility] Comment on above: Performed By: #### C MP ####[facility] Ypceplbpcu[address] [place], [place] [address]Dr. Lizandro Hemphill Urea nitrogen [Mass/Vol] 14.0 mg/dL Normal 7.0-18.0 [facility] Comment on above: Performed By: #### C MP ####[facility] Icnheluorv[address] [place], [place] [address]Dr. Shanikaannie Hemphill Urea nitrogen/Creatinin e [Mass ratio] 9.8 mg/mg Normal [facility] Comment on above: Performed By: #### C MP ####[facility] Loypvilvgj55[address] [place], [place] [address]Dr. Lizandro Joby PROTIMEon 05-04-2022 INR Coag (PPP) [Relative time] 1.01 {INR} Normal [facility] Comment on above: Performed By: #### P T ####[facility] Dbsphngjso[address] [place], [place] [address]Dr. Shanikaannie Hemphill INR GUIDELINES SEE BELOW Normal [facility] Comment on above: Result Comment: GUEVARA RED INR: 2.0 - 3.0 CONDITIONS NOT LISTED BELOW 2.5 - 3.5 FOR PROSTHETIC HEART VALVE REPLACEMENT 2.5 - 3.5 RECURRENT THROMBOSIS Performed By: #### P T ####[facility] Lerdxvrswp[address] [place], [place] [address]Dr. Shanikaannie Hemphill PT Coag (PPP) [Time] 10.7 s Normal 9.0-11.6 [facility] Comment on above: Performed By: #### P T ####[facility] Tjykqlpuwk[address] [place], [place] [address]Dr. Lizandro Hemphill AMMONIAon 05-03-2022 Ammonia (P) [Moles/Vol] 27 umol/L Normal 11-32 [facility] Comment on above: Performed By: #### A MM ####[facility] Splvtfevmn5314[address] [place], [place] [address]Dr. Lizandro Hemphill AMYLASEon 05-03-2022 Amylase [Catalytic activity/Vol] 68 U/L Normal 25-115 [facility] Comment on above: Performed By: #### M G, CMP, ALICIA, LIPA ####[facility] Lihktipquy4615 [place] [phone]. Lizandro Joby CBC AUTO DIFFon 05-03-2022 BASO # 0.1 103/ul Normal 0.0-0.1 [facility] Comment on above: Performed By: #### C BC ####[facility] Uokqzmlwtj8021 [place] [phone]. Lizandro Hemphill Basophils/100 WBC (Bld) 1.1 % Normal 0.2-2.0 [facility] Comment on above: Performed By: #### C BC ####[facility] Vldfsibzsf3568 [place] [address]Dr. Lizandro Hemphill EO # 0.0 103/ul Normal 0.0-0.7 [facility] Comment on above: Performed By: #### C BC ####[facility] Bxcnrzxpqm2707 [place] [address]Dr. Lizandro Hemphill Eosinophils/100 WBC (Bld) 0.4 % Critically low 0.9-7.0 [facility] Comment on above: Performed By: #### C BC ####[facility] Ewvrwjqgqd1420 [place] [address]Dr. Shanikaannie Hemphill Erythrocyte distribution width (RBC) [Ratio] 18.7 % Critically high 11.0-15.0 [facility] Comment on above: Performed By: #### C BC ####[facility] Mpjnabczbc2994 [place] [address]Dr. Lizandro Hemphill Hematocrit (Bld) [Volume fraction] 31.0 % Critically low 36.0-48.0 [facility] Comment on above: Performed By: #### C BC ####[facility] Ibpzjfrdyv3037 [place] [address]Dr. Lizandro Hemphill Hemoglobin (Bld) [Mass/Vol] 9.4 g/dL Critically low 12.0-16.0 [facility] Comment on above: Performed By: #### C BC ####[facility] Pqgzsoyzcz4622 [place] [address]Dr. Lizandro Hemphill IG # 0.02 10e3/ul Normal 0.00-0.03 [facility] Comment on above: Performed By: #### C BC ####[facility] Bkuitzluiu0210 [place] [address]DrCiro Shanikaannie Hemphill IG % 0.3 % Normal 0.0-0.5 [facility] Comment on above: Performed By: #### C BC ####[facility] Iizlgyjweu2654 [place] [phone] Shanikaannie Hemphill LYMPH # 1.6 103/ul Normal 1.2-3.8 [facility] Comment on above: Performed By: #### C BC ####[facility] Xrcpfepxzy0598 [place] [address]DrCiro Shanikaannie Hemphill Lymphocytes/100 WBC (Bld) 21.2 % Normal 20.5-60.0 [facility] Comment on above: Performed By: #### C BC ####[facility] Pahgypnhqq9985 [place] [address]DrCiro Hemphill MANUAL DIFF REQ NO Normal [facility] Comment on above: Performed By: #### C BC ####[facility] Horzkyrcxy3655 [place] [phone] Lizandro Joby MCH (RBC) [Entitic mass] 26.0 pg Critically low 26.7-34.0 [facility] Comment on above: Performed By: #### C BC ####[facility] Vbvesdgezu4816 [place] [phone] Lizandro Joby MCHC (RBC) [Mass/Vol] 30.3 g/dL Normal 29.9-35.2 [facility] Comment on above: Performed By: #### C BC ####[facility] Vrrbvmshtg9692 [place] [phone] Shanikaannie Hemphill MCV (RBC) [Entitic vol] 85.9 fL Normal 81.0-99.0 [facility] Comment on above: Performed By: #### C BC ####[facility] Plkacxruts4375 [place] [phone] Hemphill MONO # 0.7 103/ul Normal 0.3-0.8 [facility] Comment on above: Performed By: #### C BC ####[facility] Pupzqfmyjn4450 [place] [phone]. Lizandro Hemphill Monocytes/100 WBC (Bld) 9.5 % Normal 1.7-12.0 [facility] Comment on above: Performed By: #### C BC ####[facility] Jkblbrjrtb9506 [place] [phone]. Lizandro Hemphill NEUT # 5.1 103/ul Normal 1.4-6.5 [facility] Comment on above: Performed By: #### C BC ####[facility] Gjokhlaapv8800 [place] [phone]. Lizandro Hemphill Neutrophils/100 WBC (Bld) 67.5 % Normal 43.0-75.0 [facility] Comment on above: Performed By: #### C BC ####[facility] Uvsttnvcoi1905 [place] [phone]. Lizandro Hemphill Platelet mean volume (Bld) [Entitic vol] 10.1 fL Normal 9.5-13.5 [facility] Comment on above: Performed By: #### C BC ####[facility] Vvyenckfdg7421 [place] [phone]. Lizandro Hemphill PLT 404 103/ul Normal 150-450 [facility] Comment on above: Performed By: #### C BC ####[facility] Leumtsolxp2144 [place] [phone]. Lizandro Hemphill RBC 3.61 106/ul Critically low 4.20-5.40 [facility] Comment on above: Performed By: #### C BC ####[facility] Elsmetypcn3623 [place] [phone]. Lizandro Hemphill WBC 7.6 103/ul Normal 4.0-11.0 [facility] Comment on above: Performed By: #### C BC ####[facility] Ozlatyxijr7921 [place] [phone]. Lizandro Hemphill CULTURE BLOODon 05-03-2022 Microscopic examination of blood, culture Culture Observations: NO GROWTH AT 5 DAYS. Normal [facility] Comment on above: Performed By: #### B LDCX2 ####[facility] Posxtzqvpa7663 [place] [phone]. Lizandro Hemphill Microscopic examination of blood, culture Culture Observations: NO GROWTH AT [address] [facility] Comment on above: Performed By: #### B LDCX1 ####[facility] Sejtafghft9691 [place] [phone]. Lizandro Hemphill CULTURE URINEon 05-03-2022 CULTURE URINE Culture Observations : NO GROWTH. Normal [facility] Comment on above: Performed By: #### U RCX ####[facility] Rnwsnzqput5207 [place] [id number]. Lizandro Hemphill Covid-19 PCR (CVDTB)on SARS-CoV-2 (COVID-19) RNA VERITO+probe Ql (Unsp spec) Not detected Normal NOT DETECTED [facility] Comment on above: Result Comment: When diagnostic [...] for this test is supported by the Final [employer] of Health and Human Service's declaration that [...] be used). Performed By: #### C VDTBH ####[facility] Rmdhmgloqz9432 [place] [phone]. Lizandro Hemphill LACTATE/LACTIC ACIDon 2022 Lactate [Moles/Vol] 0.9 mmol/L Normal 0.4-1.9 [facility] Comment on above: Performed By: #### L ACT ####[facility] Htyuctzvms8390 [place] [address]Dr. Lizandro Hemphill LIPASEon 05-03-2022 Lipase [Catalytic activity/Vol] 105.0 U/L Normal 73.0-393.0 [facility] Comment on above: Performed By: #### M G, CMP, ALICIA, LIPA ####[facility] Unmxrvszvm7299 [place] [address]Dr. Lizandro Hemphill MAGNESIUMon 05-03-2022 Magnesium [Mass/Vol] 1.8 mg/dL Normal 1.8-2.4 [facility] Comment on above: Performed By: #### M G, CMP, ALICIA, LIPA ####[facility] Hqdwjcjtsq7[address] [place], [place] [address]Dr. Lizandro Hemphill PROF 14(COMP METB)on 023 Albumin [Mass/Vol] 3.4 g/dL Normal 3.4-5.0 [facility] Comment on above: Performed By: #### M G, CMP, ALICIA, LIPA ####[facility] Dsefamjfac6986 [place] [address]Dr. Lizandro Hemphill Albumin/Globulin [Mass ratio] 1.0 {ratio} Normal [facility] Comment on above: Performed By: #### M G, CMP, ALICIA, LIPA ####[facility] Tkgmxummro3809 [place] [address]Dr. Lizandro Hemphill ALP [Catalytic activity/Vol] 154 U/L Critically high 46-116 [facility] Comment on above: Performed By: #### M G, CMP, ALICIA, LIPA ####[facility] Hmjqzjihbq6331 [place] [address]Dr. Lizandro Hemphill ALT [Catalytic activity/Vol] 25 U/L Normal 14-59 [facility] Comment on above: Performed By: #### M G, CMP, ALICIA, LIPA ####[facility] Nidbonydvu5251 [place] [address]Dr. Lizandro Hemphill Anion gap [Moles/Vol] 13.2 mmol/L Normal [facility] Comment on above: Performed By: #### M G, CMP, ALICIA, LIPA ####[facility] Vrrgbrortw2337 [place] [address]Dr. Lizandro Hemphill AST [Catalytic activity/Vol] 28 U/L Normal 15-37 [facility] Comment on above: Performed By: #### M G, CMP, ALICIA, LIPA ####[facility] Zrbvphixwy5617 [place] [address]Dr. Lizandro Hemphill Bilirubin [Mass/Vol] 0.4 mg/dL Normal 0.2-1.0 [facility] Comment on above: Performed By: #### M G, CMP, ALICIA, LIPA ####[facility] Sfzirhnyfr6383 [place] [address]Dr. Lizandro Hemphill Calcium [Mass/Vol] 9.0 mg/dL Normal 8.5-10.1 [facility] Comment on above: Performed By: #### M G, CMP, ALICIA, LIPA ####[facility] Zoccbbyjoo[address] [place], [place] [address]Dr. Lizandro Hemphill Chloride [Moles/Vol] 104 mmol/L Normal 98-107 [facility] Comment on above: Performed By: #### M G, CMP, ALICIA, LIPA ####[facility] Grmvumvcul[address] [place], [place] [address]Dr. Lizandro Hemphill CO2 [Moles/Vol] 26.3 mmol/L Normal 21.0-32.0 The [facility] Comment on above: Performed By: #### M G, CMP, ALICIA, LIPA ####[facility] Cdjvakixrr76[address] [place], [place] [address]Dr. Lizandro Hemphill Creatinine [Mass/Vol] 0.73 mg/dL Normal 0.55-1.02 [facility] Comment on above: Performed By: #### M G, CMP, ALICIA, LIPA ####[facility] Ftkirwfsas2274 [place] [address]Dr. Lizandro Hemphill EGFR-AF SOMALI >60 Normal >=60 The [facility] Comment on above: Performed By: #### M G, CMP, ALICIA, LIPA ####[facility] Hbxngpwfww2844 [place] [address]Dr. Lizandro Hemphill EGFR-NON AF SOMALI >60 Normal >=60 [facility] Comment on above: Performed By: #### M G, CMP, ALICIA, LIPA ####[facility] Sivyjixinq5748 [place] [address]Dr. Lizandro Hemphill Globulin (S) [Mass/Vol] 3.5 g/dL Normal [facility] Comment on above: Performed By: #### M G, CMP, ALICIA, LIPA ####[facility] Tyebsyvkuo5897 [place] [address]Dr. Lizandro Hemphill Glucose [Mass/Vol] 87 mg/dL Normal 74-106 [facility] Comment on above: Performed By: #### M G, CMP, ALICIA, LIPA ####[facility] Jvlqegeral5862 [place] [address]Dr. Lizandro Hemphill Potassium [Moles/Vol] 3.5 mmol/L Normal 3.5-5.1 [facility] Comment on above: Performed By: #### M G, CMP, ALICIA, LIPA ####[facility] Sdgpoohmra3340 [place] [address]Dr. Lizandro Hemphill Protein [Mass/Vol] 6.9 g/dL Normal 6.4-8.2 [facility] Comment on above: Performed By: #### M G, CMP, ALICIA, LIPA ####[facility] Cgpmweqddz1921 [place] [address]Dr. Lizandro Hemphill Sodium [Moles/Vol] 140 mmol/L Normal 136-145 [facility] Comment on above: Performed By: #### M G, CMP, ALICIA, LIPA ####[facility] Yyuunaabpc6910 [place] [address]Dr. Lizandro Hemphill Urea nitrogen [Mass/Vol] 12.0 mg/dL Normal 7.0-18.0 [facility] Comment on above: Performed By: #### M G, CMP, ALICIA, LIPA ####[facility] Ezgvbzzcga8922 [place] [address]Dr. Lizandro Hemphill Urea nitrogen/Creatinin e [Mass ratio] 16.4 mg/mg Normal [facility] Comment on above: Performed By: #### M G, CMP, ALICIA, LIPA ####[facility] Lgslrdnzod758[address] [place], [place] [address]DrCiro Hemphill PROTIMEon 05-03-2022 INR Coag (PPP) [Relative time] 0.97 {INR} Normal [facility] Comment on above: Performed By: #### P TT, PT ####[facility] Nwmqscdhbw415[address] [place], [place] [address]DrCiro Hemphill INR GUIDELINES SEE BELOW Normal [facility] Comment on above: Result Comment: GUEVARA RED INR: 2.0 - 3.0 CONDITIONS NOT LISTED BELOW 2.5 - 3.5 FOR PROSTHETIC HEART VALVE REPLACEMENT 2.5 - 3.5 RECURRENT THROMBOSIS Performed By: #### P TT, PT ####[facility] [id number] [place], [place] [address]Dr. Lizandro Hemphill PT Coag (PPP) [Time] 10.3 s Normal 9.0-11.6 [facility] Comment on above: Performed By: #### P TT, PT ####[facility] [id number] [place], [place] [address]Dr. Lizandro Hemphill PTTon 05-03-2022 aPTT Coag (Bld) [Time] 27.1 s Normal 22.3-36.2 [facility] Comment on above: Performed By: #### P TT, PT ####[facility] [id number] [place], [place] [address]Dr. Lizandro Hemphill UA RANDOM W/MICROSCOPICon BACTERIA NONE SEEN Normal NONE SEEN [facility] Comment on above: Performed By: #### U AMIC ####[facility] Jgckyrehlu[address] [place], [place] [address]DrCiro Hemphill Bilirubin Ql (U) Negative Normal NEGATIVE The [facility] Comment on above: Performed By: #### U AMIC ####[facility] Pzgprsctkc00[address] [place], [place] [address]DrCiro Hemphill CAST NONE SEEN Normal NONE SEEN [facility] Comment on above: Performed By: #### U AMIC ####[facility] Dekrricepr[address] [place] [address]Dr. Shanikaannie Hemphill Clarity (U) CLEAR Normal CLEAR [facility] Comment on above: Performed By: #### U AMIC ####[facility] Cvivldzgpn60[address] [place] [address]Dr. Shanikaannie Hemphill Color (U) LT. YELLOW Normal YELLOW [facility] Comment on above: Performed By: #### U AMIC ####[facility] Pcbszgsisi458[address] [place], [place] [address]Dr. Shanikaannie Hemphill Crystals LM Nom (Urine sed) NONE SEEN Normal NONE SEEN [facility] Comment on above: Performed By: #### U AMIC ####[facility] Mbqoghqthr155[address] [place], [place] [address]Dr. Lizandro Hemphill Epithelial cells LM Ql (Urine sed) NONE SEEN Normal NONE SEEN /RARE [facility] Comment on above: Performed By: #### U AMIC ####[facility] Rtadarpght[address] [place], [place] [address]Dr. Lizandro Hemphill Glucose Ql (U) Negative Normal NEGATIVE The [facility] Comment on above: Performed By: #### U AMIC ####[facility] Ssleqfxxke[address] [place], [place] [address]Dr. Shanikaannie Hemphill Hemoglobin Ql (U) Negative Normal NEGATIVE The [facility] Comment on above: Performed By: #### U AMIC ####[facility] Djoomxckau508[address] [place], [place] [address]Dr. Lizandro Hemphill Ketones Ql (U) 15 mg/dl Abnormal NEGATIVE [facility] Comment on above: Performed By: #### U AMIC ####[facility] Bvdfgoutxq903[address] [place], [place] [address]Dr. Lizandro Hemphill LEUKOCYTES Negative Normal NEGATIVE [facility] Comment on above: Performed By: #### U AMIC ####[facility] Vnlelbrgod5[address] [place], [place] [address]Dr. Yilan Hemphill MUCOUS NONE SEEN Normal NONE SEEN [facility] Comment on above: Performed By: #### U AMIC ####[facility] Iixsiibmgi44[address] [place] [address]Dr. Lizandro Hemphill Nitrite Ql (U) Negative Normal NEGATIVE The [facility] Comment on above: Performed By: #### U AMIC ####[facility] Obnlzbbdus38[address] [place] [address]Dr. Lizandro Hemphill pH (U) 7.0 [pH] Normal 5-9 [facility] Comment on above: Performed By: #### U AMIC ####[facility] Mvrdnjcfat13[address] [place] [address]Dr. Shanikaannie Hemphill RBC 0-2 Normal 0-2 [facility] Comment on above: Performed By: #### U AMIC ####[facility] Nnautrpwvv9834[address] [place], [place] [address]Dr. Lizandro Hemphill SPEC GRAVITY 1.010 Normal 1.005-<=1.025 [facility] Comment on above: Performed By: #### U AMIC ####[facility] Jdoxghfvws429[address] [place], [place] [address]Dr. Shanikaannie Hemphill UA PROTEIN Negative Normal NEGATIVE/ TRACE [facility] Comment on above: Performed By: #### U AMIC ####[facility] Oiviramyok905[address] [place], [place] [address]Dr. Lizandro Hemphill Urobilinogen Qn (U) 0.2 {Cassy'U}/dL Normal 0.2 - 1.0 [facility] Comment on above: Performed By: #### U AMIC ####[facility] Wzakinpeab1725[address] [place], [place] [address]Dr. Shanikaannie Hemphill WBC NONE SEEN Normal NONE SEEN [facility] Comment on above: Performed By: #### U AMIC ####[facility] Ezmuxiusue0711[address] [place], [place] [address]Dr. Lizandro Hemphill XR ABD FLAT UP_PA Allen 05-03 XR ABD FLAT UP_PA CH Normal [facility] CBC AUTO DIFFon 04-13-2022 BASO # 0.1 103/ul Normal 0.0-0.1 [facility] Comment on above: Performed By: #### C BC ####[facility] Btulhwchnl[address] [place] [id number]. Lizandro Hemphill Basophils/100 WBC (Bld) 0.7 % Normal 0.2-2.0 [facility] Comment on above: Performed By: #### C BC ####[facility] Nhcgbgnbjp25[address] [place], [place] [id number]. Lizandro Hemphill EO # 0.0 103/ul Normal 0.0-0.7 [facility] Comment on above: Performed By: #### C BC ####[facility] Izjasfypfx3[address] [place], [place] [address]Dr. Lizandro Hemphill Eosinophils/100 WBC (Bld) 0.3 % Critically low 0.9-7.0 [facility] Comment on above: Performed By: #### C BC ####[facility] Kwojyantav8660[address] [place], [place] [address]Dr. Lizandro Hemphill Erythrocyte distribution width (RBC) [Ratio] 18.2 % Critically high 11.0-15.0 [facility] Comment on above: Performed By: #### C BC ####[facility] Oaihrcyaie833[address] [place], [place] [address]Dr. Lizandro Hemphill Hematocrit (Bld) [Volume fraction] 32.1 % Critically low 36.0-48.0 [facility] Comment on above: Performed By: #### C BC ####[facility] Kfjyepnydr018[address] [place], [place] [address]Dr. Lizandro Hemphill Hemoglobin (Bld) [Mass/Vol] 10.2 g/dL Critically low 12.0-16.0 [facility] Comment on above: Performed By: #### C BC ####[facility] Wqsanbmuvg117[address] [place], [place] [address]Dr. Lizandro Hemphill IG # 0.03 10e3/ul Normal 0.00-0.03 [facility] Comment on above: Performed By: #### C BC ####[facility] Jcrxwdbdpv67[address] [place], [place] [address]Dr. Lizandro Hemphill IG % 0.3 % Normal 0.0-0.5 [facility] Comment on above: Performed By: #### C BC ####[facility] Ludhitgvji[address] [place] [phone]. Lizandro Joby LYMPH # 1.2 103/ul Normal 1.2-3.8 [facility] Comment on above: Performed By: #### C BC ####[facility] Objirvjsmi6904 [place] [phone]. Lizandro Hemphill Lymphocytes/100 WBC (Bld) 10.4 % Critically low 20.5-60.0 [facility] Comment on above: Performed By: #### C BC ####[facility] Xhkyshjggm3721 [place] [phone]. Lizandro Hemphill MANUAL DIFF REQ NO Normal [facility] Comment on above: Performed By: #### C BC ####[facility] Vyidofgwyz4747 [place] [phone]. Lizandro Hemphill MCH (RBC) [Entitic mass] 26.4 pg Critically low 26.7-34.0 [facility] Comment on above: Performed By: #### C BC ####[facility] Mhafimerjv2542 [place] [phone]. Lizandro Hemphill MCHC (RBC) [Mass/Vol] 31.8 g/dL Normal 29.9-35.2 [facility] Comment on above: Performed By: #### C BC ####[facility] Bxtmafoglw4827 [place] [phone]. Lizandro Hemphill MCV (RBC) [Entitic vol] 83.2 fL Normal 81.0-99.0 [facility] Comment on above: Performed By: #### C BC ####[facility] Bhnugfbxtn39[address] [place] [address]Dr. Lizandro Hemphill MONO # 1.0 103/ul Critically high 0.3-0.8 [facility] Comment on above: Performed By: #### C BC ####[facility] Pmdhzjyfak4754 [place] [phone]. Lizandro Hemphill Monocytes/100 WBC (Bld) 9.0 % Normal 1.7-12.0 [facility] Comment on above: Performed By: #### C BC ####[facility] Rezjezkwnz4287 [place] [phone]. Lizandro Hemphill NEUT # 9.0 103/ul Critically high 1.4-6.5 [facility] Comment on above: Performed By: #### C BC ####[facility] Sonoebvvnm5789 [place] [phone]. Lizandro Hemphill Neutrophils/100 WBC (Bld) 79.3 % Critically high 43.0-75.0 [facility] Comment on above: Performed By: #### C BC ####[facility] Ypeboawoqi0202 [place] [phone]. Lizandro Hemphill Platelet mean volume (Bld) [Entitic vol] 10.8 fL Normal 9.5-13.5 [facility] Comment on above: Performed By: #### C BC ####[facility] Pvdflxnppv0240 [place] [address]Dr. Lizandro Hemphill PLT 364 103/ul Normal 150-450 [facility] Comment on above: Performed By: #### C BC ####[facility] Cthelnsziz3415 [place] [phone]. Lizandro Hemphill RBC 3.86 106/ul Critically low 4.20-5.40 [facility] Comment on above: Performed By: #### C BC ####[facility] Ffwlnxfdcn0340 [place] [phone]. Lizandro Hemphill WBC 11.4 103/ul Critically high 4.0-11.0 The [facility] Comment on above: Performed By: #### C BC ####[facility] Oemrnsuwus1623 [place] [phone]. Lizandro Hemphill CT ABD/PELVIS WO CONon 04-13 CT ABD/PELVIS WO CON Normal [facility] PROF CHEM 8 (BAS METB)on Anion gap [Moles/Vol] 12.4 mmol/L Normal [facility] Comment on above: Performed By: #### B MP ####[facility] Zehoonqdwg9526 [place] [phone]. Lizandro Hemphill Calcium [Mass/Vol] 9.1 mg/dL Normal 8.5-10.1 [facility] Comment on above: Performed By: #### B MP ####[facility] Bswdiiflxe8[address] [place] [address]Dr. Shanikaannie Joby Chloride [Moles/Vol] 103 mmol/L Normal 98-107 [facility] Comment on above: Performed By: #### B MP ####[facility] Xjcqatvzqn9[address] [place], [place] [address]Dr. Shanikaannie Joby CO2 [Moles/Vol] 28.1 mmol/L Normal 21.0-32.0 The [facility] Comment on above: Performed By: #### B MP ####[facility] Gxgfqychjm744[address] [place], [place] [address]Dr. Lizandro Hemphill Creatinine [Mass/Vol] 1.08 mg/dL Critically high 0.55-1.02 [facility] Comment on above: Performed By: #### B MP ####[facility] Duifhxtotj582[address] [place], [place] [address]Dr. Lizandro Hemphill EGFR-AF SOMALI >60 Normal >=60 The [facility] Comment on above: Performed By: #### B MP ####[facility] Dqonhgfuyv3413[address] [place], [place] [address]Dr. Shanikaannie Joby EGFR-NON AF SOMALI 52 mL/min/1.73m2 Critically low >=60 [facility] Comment on above: Performed By: #### B MP ####[facility] Xdtzcmdsrr7597[address] [place], [place] [address]Dr. Lizandro Hemphill Glucose [Mass/Vol] 120 mg/dL Critically high 74-106 [facility] Comment on above: Performed By: #### B MP ####[facility] Qzbvbsoctd529[address] [place], [place] [address]Dr. Lizandro Hemphill Potassium [Moles/Vol] 3.5 mmol/L Normal 3.5-5.1 [facility] Comment on above: Performed By: #### B MP ####[facility] Mhcdcltuxv913[address] [place], [place] [address]Dr. Lizandro Hemphill Sodium [Moles/Vol] 140 mmol/L Normal 136-145 [facility] Comment on above: Performed By: #### B MP ####[facility] Tbqsbfzfxl414[address] [place], [place] [address]Dr. Lizandro Hemphill Urea nitrogen [Mass/Vol] 24.0 mg/dL Critically high 7.0-18.0 [facility] Comment on above: Performed By: #### B MP ####[facility] Lhbrlipktm4257[address] [place], [place] [address]Dr. Lizandro Hemphill Urea nitrogen/Creatinin e [Mass ratio] 22.2 mg/mg Normal [facility] Comment on above: Performed By: #### B MP ####[facility] Ytpqwukjpf236[address] [place], [place] [address]Dr. Lizandro Joby XR ANKLE RT MIN 3 VIEWSon XR ANKLE RT MIN 3 VIEWS Normal [facility] PRBC LEUKOREDUCEDon 03-23-20 PRBC LEUKOREDUCED Normal [facility] Comment on above: Performed By: #### P RBC ####[facility] Kayyaiczpf16[address] [place], [place] [address]Dr. Lizandro Joby CBC AUTO DIFFon 03-07-2022 BASO # 0.1 103/ul Normal 0.0-0.1 [facility] Comment on above: Performed By: #### C BC ####[facility] Nmlrgutoxy8[address] [place], [place] [address]Dr. Lizandro Hemphill Basophils/100 WBC (Bld) 1.1 % Normal 0.2-2.0 [facility] Comment on above: Performed By: #### C BC ####[facility] Jihnkdiwgn164186 [address] [place], [place] [address]Dr. Lizandro Hemphill EO # 0.1 103/ul Normal 0.0-0.7 [facility] Comment on above: Performed By: #### C BC ####[facility] Awpuoexuuq143186 [address] [place], [place] [address]Dr. Lizandro Hemphill Eosinophils/100 WBC (Bld) 0.8 % Critically low 0.9-7.0 [facility] Comment on above: Performed By: #### C BC ####[facility] Sdfuglvxjl5933 [place] [address]Dr. Lizandro Hemphill Erythrocyte distribution width (RBC) [Ratio] 15.9 % Critically high 11.0-15.0 [facility] Comment on above: Performed By: #### C BC ####[facility] Gagyuzsjnz6414[address] [place], [place] [address]Dr. Lizandro Hemphill Hematocrit (Bld) [Volume fraction] 31.0 % Critically low 36.0-48.0 [facility] Comment on above: Performed By: #### C BC ####[facility] Osdgpawvet2740[address] [place], [place] [address]Dr. Lizandro Hemphill Hemoglobin (Bld) [Mass/Vol] 10.1 g/dL Critically low 12.0-16.0 [facility] Comment on above: Performed By: #### C BC ####[facility] Yuizhmpxhz213[address] [place], [place] [address]Dr. Lizandro Hemphill IG # 0.04 10e3/ul Critically high 0.00-0.03 [facility] Comment on above: Performed By: #### C BC ####[facility] Osibvfvozz832[address] [place], [place] [address]Dr. Lizandro Hemphill IG % 0.4 % Normal 0.0-0.5 [facility] Comment on above: Performed By: #### C BC ####[facility] Hhqbzdszjm0736[address] [place], [place] [address]Dr. Lizandro Hemphill LYMPH # 1.3 103/ul Normal 1.2-3.8 [facility] Comment on above: Performed By: #### C BC ####[facility] Efaqnkfsjf460[address] [place], [place] [address]Dr. Lizandro Hemphill Lymphocytes/100 WBC (Bld) 13.7 % Critically low 20.5-60.0 [facility] Comment on above: Performed By: #### C BC ####[facility] Brypdoobor419[address] [place], [place] [address]Dr. Lizandro Hemphill MANUAL DIFF REQ NO Normal [facility] Comment on above: Performed By: #### C BC ####[facility] Fnivcoysxm7084 [place] [phone]. Lizandro Hemphill MCH (RBC) [Entitic mass] 28.6 pg Normal 26.7-34.0 [facility] Comment on above: Performed By: #### C BC ####[facility] Vpyadtscdb6331 [place] [phone]. Lizandro Hemphill MCHC (RBC) [Mass/Vol] 32.6 g/dL Normal 29.9-35.2 [facility] Comment on above: Performed By: #### C BC ####[facility] Jvmitvlfnb6122 [place] [address]Dr. Lizandro Joby MCV (RBC) [Entitic vol] 87.8 fL Normal 81.0-99.0 [facility] Comment on above: Performed By: #### C BC ####[facility] Wndayfcwpl07[address] [place], [place] [address]Dr. Shanikaannie Hemphill MONO # 0.7 103/ul Normal 0.3-0.8 [facility] Comment on above: Performed By: #### C BC ####[facility] Qfubxnbguz0999 [place] [address]Dr. Shanikaannie Hemphill Monocytes/100 WBC (Bld) 7.7 % Normal 1.7-12.0 [facility] Comment on above: Performed By: #### C BC ####[facility] Nstkxlmbfc4968 [place] [address]Dr. Lizandro Joby NEUT # 7.2 103/ul Critically high 1.4-6.5 [facility] Comment on above: Performed By: #### C BC ####[facility] Slarsynsez[address] [place], [place] [id number] Shanikaannie Hemphill Neutrophils/100 WBC (Bld) 76.3 % Critically high 43.0-75.0 [facility] Comment on above: Performed By: #### C BC ####[facility] Tavhkiemig3595 [place] [address]Dr. Lizandro Hemphill Platelet mean volume (Bld) [Entitic vol] 10.3 fL Normal 9.5-13.5 [facility] Comment on above: Performed By: #### C BC ####[facility] Akryvymfrh1496 [place] [phone]. Lizandro Hemphill PLT 382 103/ul Normal 150-450 [facility] Comment on above: Performed By: #### C BC ####[facility] Awvrrdcwwh3589 [place], [place] [address]An. Lizandro Hemphill RBC 3.53 106/ul Critically low 4.20-5.40 [facility] Comment on above: Performed By: #### C BC ####[facility] Fzdpdakfro4618 [place], [place] [address]Zc. Lizandro Hemphill WBC 9.4 103/ul Normal 4.0-11.0 [facility] Comment on above: Performed By: #### C BC ####[facility] Zdnlhwbqkz7622 [place] [phone]. Shanikaannie Joby LIVER PROFILEon 03-07-2022 Albumin [Mass/Vol] 2.8 g/dL Critically low 3.4-5.0 [facility] Comment on above: Performed By: #### B MP, LIVER ####[facility] Tfergffsbd8430 [place] [phone]. Lizandro Hemphill Albumin/Globulin [Mass ratio] 0.8 {ratio} Normal [facility] Comment on above: Performed By: #### B MP, LIVER ####[facility] Rtyewtoyky3564 [place] [phone]. Lizandro Hemphill ALP [Catalytic activity/Vol] 108 U/L Normal 46-116 [facility] Comment on above: Performed By: #### B MP, LIVER ####[facility] Sykxdpnpqc7990 [place] [phone]. Shanikaannie Joby ALT [Catalytic activity/Vol] 36 U/L Normal 14-59 [facility] Comment on above: Performed By: #### B MP, LIVER ####[facility] Usihwwreyj0355 [place] [phone]. Lizandro Hemphill AST [Catalytic activity/Vol] 29 U/L Normal 15-37 [facility] Comment on above: Performed By: #### B MP, LIVER ####[facility] Bhhindoxfu9[address] [place] [address]Dr. Lizandro Hemphill BILI, CONJUGATED 0.1 mg/dL Normal 0.0-0.2 [facility] Comment on above: Performed By: #### B MP, LIVER ####[facility] Szwgpleujr2357 [place] [address]Dr. Lizandro Hemphill Bilirubin [Mass/Vol] 0.2 mg/dL Normal 0.2-1.0 [facility] Comment on above: Performed By: #### B MP, LIVER ####[facility] Symgedjerb9765[address] [place], [place] [address]Dr. Lizandro Hemphill Globulin (S) [Mass/Vol] 3.6 g/dL Normal [facility] Comment on above: Performed By: #### B MP, LIVER ####[facility] Iodcpwxkkb390[address] [place], [place] [address]Dr. Lizandro Hemphill Protein [Mass/Vol] 6.4 g/dL Normal 6.4-8.2 [facility] Comment on above: Performed By: #### B MP, LIVER ####[facility] Sjargbcwwk0116[address] [place], [place] [address]Dr. Lizandro Hemphill PROF CHEM 8 (BAS METB)on Anion gap [Moles/Vol] 10.2 mmol/L Normal [facility] Comment on above: Performed By: #### B MP, LIVER ####[facility] Gymgonkshs224[address] [place], [place] [address]Dr. Lizandro Hemphill Calcium [Mass/Vol] 8.7 mg/dL Normal 8.5-10.1 [facility] Comment on above: Performed By: #### B MP, LIVER ####[facility] Cptyqvecon016[address] [place], [place] [address]Dr. Lizandro Hemphill Chloride [Moles/Vol] 104 mmol/L Normal 98-107 [facility] Comment on above: Performed By: #### B MP, LIVER ####[facility] Tidjwlbeme0188[address] [place], [place] [address]Dr. Lizandro Hemphill CO2 [Moles/Vol] 27.8 mmol/L Normal 21.0-32.0 The [facility] Comment on above: Performed By: #### B MP, LIVER ####[facility] Denjqzwkiv7315 [place] [address]Dr. Lizandro Hemphill Creatinine [Mass/Vol] 0.72 mg/dL Normal 0.55-1.02 [facility] Comment on above: Performed By: #### B MP, LIVER ####[facility] Kbuvhvljwe7683 [place] [phone]. Lizandro Hemphill EGFR-AF SOMALI >60 Normal >=60 The [facility] Comment on above: Performed By: #### B MP, LIVER ####[facility] Lxfazqhjgi0667 [place] [address]Dr. Lizandro Hemphill EGFR-NON AF SOMALI >60 Normal >=60 [facility] Comment on above: Performed By: #### B MP, LIVER ####[facility] Ouejqnntex5598 [place] [address]Dr. Lizandro Hemphill Glucose [Mass/Vol] 97 mg/dL Normal 74-106 [facility] Comment on above: Performed By: #### B MP, LIVER ####[facility] Rmuzwfpffr7075 [place] [address]Dr. Lizandro Hemphill Potassium [Moles/Vol] 4.0 mmol/L Normal 3.5-5.1 [facility] Comment on above: Performed By: #### B MP, LIVER ####[facility] Ofkndyiqyk9523 [place] [address]Dr. Lizandro Hemphill Sodium [Moles/Vol] 138 mmol/L Normal 136-145 [facility] Comment on above: Performed By: #### B MP, LIVER ####[facility] Wmosoicrkz8463 [place] [address]Dr. Lizandro Hemphill Urea nitrogen [Mass/Vol] 13.0 mg/dL Normal 7.0-18.0 [facility] Comment on above: Performed By: #### B MP, LIVER ####[facility] Fjgtxmlaxb3155[address] [place], [place] [address]Dr. Lizandro Hemphill Urea nitrogen/Creatinin e [Mass ratio] 18.1 mg/mg Normal [facility] Comment on above: Performed By: #### B MP, LIVER ####[facility] Jglcyeejql5828[address] [place], [place] [address]DrCiro Hemphill PROTIMEon 03-07-2022 INR Coag (PPP) [Relative time] 0.94 {INR} Normal [facility] Comment on above: Performed By: #### P T ####[facility] Eqnkixvcox0812[address] [place], [place] [address]DrCiro Hemphill INR GUIDELINES SEE BELOW Normal [facility] Comment on above: Result Comment: GUEVARA RED INR: 2.0 - 3.0 CONDITIONS NOT LISTED BELOW 2.5 - 3.5 FOR PROSTHETIC HEART VALVE REPLACEMENT 2.5 - 3.5 RECURRENT THROMBOSIS Performed By: #### P T ####[facility] Pkxuyweueo060[address] [place], [place] [address]DrCiro Hemphill PT Coag (PPP) [Time] 10.2 s Normal 9.0-11.6 [facility] Comment on above: Performed By: #### P T ####[facility] Wxpstmugpm9940[address] [place], [place] [address]Dr. Lizandro Hemphill CBC AUTO DIFFon 03-06-2022 BASO # 0.1 103/ul Normal 0.0-0.1 [facility] Comment on above: Performed By: #### C BC ####[facility] Zefdwcwaro150[address] [place], [place] [address]DrCiro Hemphill Basophils/100 WBC (Bld) 0.6 % Normal 0.2-2.0 [facility] Comment on above: Performed By: #### C BC ####[facility] Nxmzydeeuf618[address] [place], [place] [address]DrCiro Hemphill EO # 0.2 103/ul Normal 0.0-0.7 [facility] Comment on above: Performed By: #### C BC ####[facility] Hmbfmmmnfo[address] [place], [place] [address]DrCiro Hemphill Eosinophils/100 WBC (Bld) 1.4 % Normal 0.9-7.0 [facility] Comment on above: Performed By: #### C BC ####[facility] Hpaebypbqn228[address] [place], [place] [address]Dr. Lizandro Hemphill Erythrocyte distribution width (RBC) [Ratio] 16.1 % Critically high 11.0-15.0 [facility] Comment on above: Performed By: #### C BC ####[facility] Wfbzokhuyo115[address] [place], [place] [address]DrCiro Hemphill Hematocrit (Bld) [Volume fraction] 28.7 % Critically low 36.0-48.0 [facility] Comment on above: Performed By: #### C BC ####[facility] Tgjxxqxcqr7679[address] [place], [place] [address]Dr. Lizandro Hemphill Hemoglobin (Bld) [Mass/Vol] 9.3 g/dL Critically low 12.0-16.0 [facility] Comment on above: Performed By: #### C BC ####[facility] Ehijsdyblg9717[address] [place], [place] [address]Dr. Lizandro Hemphill IG # 0.03 10e3/ul Normal 0.00-0.03 [facility] Comment on above: Performed By: #### C BC ####[facility] Fvbatshdkw2507[address] [place], [place] [address]DrCiro Hemphill IG % 0.3 % Normal 0.0-0.5 [facility] Comment on above: Performed By: #### C BC ####[facility] Mhyqwvefhu54[address] [place], [place] [address]DrCiro Hemphill LYMPH # 1.5 103/ul Normal 1.2-3.8 [facility] Comment on above: Performed By: #### C BC ####[facility] Wujotbzxvj0947[address] [place], [place] [address]Dr. Lizandro Hemphill Lymphocytes/100 WBC (Bld) 13.4 % Critically low 20.5-60.0 [facility] Comment on above: Performed By: #### C BC ####[facility] Wpegkgpwso012[address] [place], [place] [address]DrCiro Hemphill MANUAL DIFF REQ NO Normal [facility] Comment on above: Performed By: #### C BC ####[facility] Fkinlvqens6544 [place] [id number] Hemphill MCH (RBC) [Entitic mass] 28.5 pg Normal 26.7-34.0 [facility] Comment on above: Performed By: #### C BC ####[facility] Ircldrvikp7594 [place] [address]DrCiro Hemphill MCHC (RBC) [Mass/Vol] 32.4 g/dL Normal 29.9-35.2 [facility] Comment on above: Performed By: #### C BC ####[facility] Gqumasyyxd609[address] [place], [place] [address]DrCiro Hemphill MCV (RBC) [Entitic vol] 88.0 fL Normal 81.0-99.0 [facility] Comment on above: Performed By: #### C BC ####[facility] Rqyrugbhrh808[address] [place], [place] [address]DrCiro Hemphill MONO # 0.9 103/ul Critically high 0.3-0.8 [facility] Comment on above: Performed By: #### C BC ####[facility] Auprdsjpoo050[address] [place], [place] [address]DrCiro Hemphill Monocytes/100 WBC (Bld) 8.7 % Normal 1.7-12.0 [facility] Comment on above: Performed By: #### C BC ####[facility] Rmyhzkfyvz375[address] [place], [place] [address]DrCiro Hemphill NEUT # 8.2 103/ul Critically high 1.4-6.5 [facility] Comment on above: Performed By: #### C BC ####[facility] Yjtcjtlkdp566[address] [place], [place] [address]DrCiro Hemphill Neutrophils/100 WBC (Bld) 75.6 % Critically high 43.0-75.0 [facility] Comment on above: Performed By: #### C BC ####[facility] Mqxghtuncn25[address] [place], [place] [address]DrCiro Hemphill Platelet mean volume (Bld) [Entitic vol] 10.4 fL Normal 9.5-13.5 [facility] Comment on above: Performed By: #### C BC ####[facility] Aodmywmztm[address] [place] [id number]. Lizandro Hemphill PLT 351 103/ul Normal 150-450 [facility] Comment on above: Performed By: #### C BC ####[facility] Swfmnmaona2506 [place] [id number]. Lizandro Hemphill RBC 3.26 106/ul Critically low 4.20-5.40 [facility] Comment on above: Performed By: #### C BC ####[facility] Lzqveybhpy80[address] [place] [address]Dr. Lizandro Hemphill WBC 10.9 103/ul Normal 4.0-11.0 [facility] Comment on above: Performed By: #### C BC ####[facility] Wwvsvceevw[address] [place], [place] [address]Dr. Lizandro Hemphill CT HIP LT WO CONon 2 CT HIP LT WO CON Normal The [facility] LIVER PROFILEon 03-06-2022 Albumin [Mass/Vol] 2.6 g/dL Critically low 3.4-5.0 Th [facility] Comment on above: Performed By: #### Diana SCHMIDT BMP ####[facility] Ppkpnqucfn[address] [place] [address]Dr. Lizandro Hemphill Albumin/Globulin [Mass ratio] 0.8 {ratio} Normal [facility] Comment on above: Performed By: #### Diana SCHMIDT BMP ####[facility] Fyblrsyfdb35[address] [place] [address]Dr. Shanikaannie Hemphill ALP [Catalytic activity/Vol] 99 U/L Normal 46-116 [facility] Comment on above: Performed By: #### Diana SCHMIDT BMP ####[facility] Dvcilamsho[address] [place] [address]Dr. Shanikaannie Hemphill ALT [Catalytic activity/Vol] 36 U/L Normal 14-59 [facility] Comment on above: Performed By: #### Diana SCHMIDT BMP ####[facility] Ccfkpwgzxe79[address] [place] [address]Dr. Lizandro Hemphill AST [Catalytic activity/Vol] 38 U/L Critically high 15-37 [facility] Comment on above: Performed By: #### L IVER, BMP ####[facility] Iusssmxczo[address] [place] [address]Dr. Lizandro Hemphill BILI, CONJUGATED 0.0 mg/dL Normal 0.0-0.2 [facility] Comment on above: Performed By: #### L IVER, BMP ####[facility] Lnrknvsuzi[address] [place], [place] [address]Dr. Lizandro Hemphill Bilirubin [Mass/Vol] 0.1 mg/dL Critically low 0.2-1.0 [facility] Comment on above: Performed By: #### L IVER, BMP ####[facility] Lvgiknalgr67[address] [place], [place] [address]Dr. Lizandro Hemphill Globulin (S) [Mass/Vol] 3.4 g/dL Normal [facility] Comment on above: Performed By: #### L IVER, BMP ####[facility] Viqoezccqm[address] [place], [place] [address]Dr. Lizandro Hemphill Protein [Mass/Vol] 6.0 g/dL Critically low 6.4-8.2 [facility] Comment on above: Performed By: #### L IVER, BMP ####[facility] Klkyeawcai37[address] [place], [place] [address]Dr. Lizandro Hemphill PROF CHEM 8 (BAS METB)on Anion gap [Moles/Vol] 11.1 mmol/L Normal [facility] Comment on above: Performed By: #### L IVER, BMP ####[facility] Ikjxudicvd4039[address] [place], [place] [address]Dr. Lizandro Hemphill Calcium [Mass/Vol] 8.4 mg/dL Critically low 8.5-10.1 [facility] Comment on above: Performed By: #### L IVER, BMP ####[facility] Xhxeolvhyi969[address] [place], [place] [address]Dr. Lizandro Hemphill Chloride [Moles/Vol] 105 mmol/L Normal 98-107 [facility] Comment on above: Performed By: #### Diana SCHMIDT, BMP ####[facility] Hilpluqwkg31[address] [place] [address]Dr. Lizandro Hemphill CO2 [Moles/Vol] 26.6 mmol/L Normal 21.0-32.0 The [facility] Comment on above: Performed By: #### Diana SCHMIDT, BMP ####[facility] Lefrqprykl5[address] [place] [address]Dr. Lizandro Hemphill Creatinine [Mass/Vol] 0.74 mg/dL Normal 0.55-1.02 [facility] Comment on above: Performed By: #### Diana SCHMIDT BMP ####[facility] Qzgtxyrvsc7750[address] [place], [place] [address]Dr. Shanikaannie Hemphill EGFR-AF SOMALI >60 Normal >=60 The [facility] Comment on above: Performed By: #### Diana SCHMIDT BMP ####[facility] Qjftuqynro397[address] [place], [place] [address]Dr. Lizandro Hemphill EGFR-NON AF SOMALI >60 Normal >=60 [facility] Comment on above: Performed By: #### Diana SCHMIDT BMP ####[facility] Smdjrmtxfa316[address] [place], [place] [address]Dr. Lizandro Hemphill Glucose [Mass/Vol] 104 mg/dL Normal 74-106 [facility] Comment on above: Performed By: #### Diana SCHMIDT BMP ####[facility] Dzosjuqwlu5867[address] [place], [place] [address]Dr. Shanikaannie Hemphill Potassium [Moles/Vol] 3.7 mmol/L Normal 3.5-5.1 [facility] Comment on above: Performed By: #### Diana SCHMIDT BMP ####[facility] Dkfnzfbpel220[address] [place], [place] [address]Dr. Shanikaannie Hemphill Sodium [Moles/Vol] 139 mmol/L Normal 136-145 [facility] Comment on above: Performed By: #### Diana SCHMIDT BMP ####[facility] Xvuozjlbri035[address] [place], [place] [address]Dr. Lizandro Hemphill Urea nitrogen [Mass/Vol] 13.0 mg/dL Normal 7.0-18.0 [facility] Comment on above: Performed By: #### ELSA VERA ####[facility] Yjjieclsnd6057[address] [place], [place] [address]Dr. Lizandro Hemphill Urea nitrogen/Creatinin e [Mass ratio] 17.6 mg/mg Normal [facility] Comment on above: Performed By: #### ELSA VERA ####[facility] Hwlhlleofz[address] [place], [place] [address]Dr. Lizandro Hemphill PROTIMEon 03-06-2022 INR Coag (PPP) [Relative time] {INR} Normal [facility] Comment on above: Performed By: #### P T ####[facility] Scehmkxiee758[address] [place], [place] [address]Dr. Lizandro Hemphill INR GUIDELINES SEE BELOW Normal The [facility] Comment on above: Result Comment: GUEVARA RED INR: 2.0 - 3.0 CONDITIONS NOT LISTED BELOW 2.5 - 3.5 FOR PROSTHETIC HEART VALVE REPLACEMENT 2.5 - 3.5 RECURRENT THROMBOSIS Performed By: #### P T ####[facility] Pkvhfjxasj319[address] [place], [place] [address]Dr. Lizandro Hemphill PT Coag (PPP) [Time] 9.7 s Normal 9.0-11.6 [facility] Comment on above: Performed By: #### P T ####[facility] Eetlzthxqp5669[address] [place], [place] [address]DrCiro Hemphill CBC AUTO DIFFon 03-05-2022 BASO # 0.1 103/ul Normal 0.0-0.1 [facility] Comment on above: Performed By: #### C BC ####[facility] Zsrikbyqxi297[address] [place], [place] [address]DrCiro Hemphill Basophils/100 WBC (Bld) 0.8 % Normal 0.2-2.0 [facility] Comment on above: Performed By: #### C BC ####[facility] Skvjnpowoi6688[address] [place], [place] [address]DrCiro Hemphill EO # 0.1 103/ul Normal 0.0-0.7 [facility] Comment on above: Performed By: #### C BC ####[facility] Yzozkkpvwb74[address] [place] [address]Dr. Lizandro Hemphill Eosinophils/100 WBC (Bld) 1.1 % Normal 0.9-7.0 [facility] Comment on above: Performed By: #### C BC ####[facility] Okslwiqyjk3418[address] [place], [place] [address]Dr. Lizandro Hemphill Erythrocyte distribution width (RBC) [Ratio] 15.8 % Critically high 11.0-15.0 [facility] Comment on above: Performed By: #### C BC ####[facility] Fyzlaegaez1933[address] [place], [place] [address]Dr. Lizandro Hemphill Hematocrit (Bld) [Volume fraction] 25.6 % Critically low 36.0-48.0 [facility] Comment on above: Performed By: #### C BC ####[facility] Eayaarseeg994[address] [place], [place] [address]Dr. Lizandro Hemphill Hemoglobin (Bld) [Mass/Vol] 8.6 g/dL Critically low 12.0-16.0 [facility] Comment on above: Performed By: #### C BC ####[facility] Mmtkydbaqd4611[address] [place], [place] [address]Dr. Shanikaannie Joby IG # 0.05 10e3/ul Critically high 0.00-0.[address] [facility] Comment on above: Performed By: #### C BC ####[facility] Kgxjrsnpob934[address] [place], [place] [address]Dr. Shanikaannie Joby IG % 0.6 % Critically high 0.0-0.5 The [facility] Comment on above: Performed By: #### C BC ####[facility] Vwgvdtwbwn484[address] [place], [place] [address]Dr. Lizandro Hemphill LYMPH # 1.2 103/ul Normal 1.2-3.8 [facility] Comment on above: Performed By: #### C BC ####[facility] Hugdsonbew311[address] [place], [place] [address]Dr. Lizandro Hemphill Lymphocytes/100 WBC (Bld) 14.4 % Critically low 20.5-60.0 [facility] Comment on above: Performed By: #### C BC ####[facility] Lwutabdmkf12[address] [place] [address]DrCiro Hemphill MANUAL DIFF REQ NO Normal [facility] Comment on above: Performed By: #### C BC ####[facility] Qvcmjrsmzc3830 [place] [address]Dr. Lizandro Hemphill MCH (RBC) [Entitic mass] 29.1 pg Normal 26.7-34.0 [facility] Comment on above: Performed By: #### C BC ####[facility] Zskwhrmkdp795[address] [place], [place] [address]Dr. Lizandro Hemphill MCHC (RBC) [Mass/Vol] 33.6 g/dL Normal 29.9-35.2 [facility] Comment on above: Performed By: #### C BC ####[facility] Twiqotkzdq4659[address] [place], [place] [address]Dr. Lizandro Hemphill MCV (RBC) [Entitic vol] 86.5 fL Normal 81.0-99.0 [facility] Comment on above: Performed By: #### C BC ####[facility] Iedgudrife[address] [place], [place] [address]Dr. Lizandro Hemphill MONO # 0.7 103/ul Normal 0.3-0.8 [facility] Comment on above: Performed By: #### C BC ####[facility] Nhkkdkynyc75[address] [place], [place] [address]Dr. Lizandro Hemphill Monocytes/100 WBC (Bld) 8.2 % Normal 1.7-12.0 [facility] Comment on above: Performed By: #### C BC ####[facility] Irmcgqguqz3987[address] [place], [place] [address]DrCiro Hemphill NEUT # 6.3 103/ul Normal 1.4-6.5 [facility] Comment on above: Performed By: #### C BC ####[facility] Iogmkzhzvv923[address] [place], [place] [address]DrCiro Hemphill Neutrophils/100 WBC (Bld) 74.9 % Normal 43.0-75.0 [facility] Comment on above: Performed By: #### C BC ####[facility] Yaqanqbeee7[address] [place] [address]Dr. Lizandro Hemphill Platelet mean volume (Bld) [Entitic vol] 9.8 fL Normal 9.5-13.5 [facility] Comment on above: Performed By: #### C BC ####[facility] Fezfnuetkr94[address] [place] [id number]. Lizandro Hemphill PLT 331 103/ul Normal 150-450 [facility] Comment on above: Performed By: #### C BC ####[facility] Cazbhewknb1791 [place] [address]Dr. Lizandro Hemphill RBC 2.96 106/ul Critically low 4.20-5.40 [facility] Comment on above: Performed By: #### C BC ####[facility] Wcgwwrowzu890[address] [place], [place] [address]Dr. Lizandro Hemphill WBC 8.5 103/ul Normal 4.0-11.0 [facility] Comment on above: Performed By: #### C BC ####[facility] Txythdudzz156[address] [place], [place] [address]Dr. Lizandro Hemphill LIVER PROFILEon 03-05-2022 Albumin [Mass/Vol] 2.4 g/dL Critically low 3.4-5.0 [facility] Comment on above: Performed By: #### ELSA VERA ####[facility] Gmaqgyaspi8[address] [place] [address]Dr. Lizandro Hemphill Albumin/Globulin [Mass ratio] 0.8 {ratio} Normal [facility] Comment on above: Performed By: #### Diana SCHMIDT BMP ####[facility] Uriohkuirx899[address] [place], [place] [address]Dr. Lziandro Hemphill ALP [Catalytic activity/Vol] 88 U/L Normal 46-116 [facility] Comment on above: Performed By: #### ELSA VERA ####[facility] Bqknuqcwuv[address] [place], [place] [address]Dr. Lizandro Hemphill ALT [Catalytic activity/Vol] 35 U/L Normal 14-59 [facility] Comment on above: Performed By: #### Diana SCHMIDT BMP ####[facility] Kvpfflazpd584[address] [place], [place] [address]Dr. Lizandro Hemphill AST [Catalytic activity/Vol] 41 U/L Critically high 15-37 [facility] Comment on above: Performed By: #### Diana SCHMIDT BMP ####[facility] Nbupwnwfzk9525[address] [place], [place] [address]Dr. Lizandro Hemphill BILI, CONJUGATED 0.1 mg/dL Normal 0.0-0.2 [facility] Comment on above: Performed By: #### Diana SCHMIDT BMP ####[facility] Cbewdtkmqa149[address] [place], [place] [address]Dr. Lizandro Hemphill Bilirubin [Mass/Vol] 0.1 mg/dL Critically low 0.2-1.0 [facility] Comment on above: Performed By: #### Diana SCHMIDT BMP ####[facility] Pcjjxlrgpz066[address] [place], [place] [address]Dr. Lizandro Hemphill Globulin (S) [Mass/Vol] 3.1 g/dL Normal [facility] Comment on above: Performed By: #### Diana SCHMIDT BMP ####[facility] Chuexlcwjf298[address] [place], [place] [address]Dr. Lizandro Hemphill Protein [Mass/Vol] 5.5 g/dL Critically low 6.4-8.2 [facility] Comment on above: Performed By: #### Diana SCHMIDT BMP ####[facility] Xubhnckydf413[address] [place], [place] [address]Dr. Lizandro Hemphill OCC BLD IMMUNOASSAYon 2021 OCCULT BLOOD Positive Abnormal NEGATIVE [facility] Comment on above: Performed By: #### O GREGORIO ####[facility] Uemouhinrs8087[address] [place], [place] [address]Dr. Lizandro Hemphill PROF CHEM 8 (BAS METB)on Anion gap [Moles/Vol] 11.2 mmol/L Normal [facility] Comment on above: Performed By: #### L IVER, BMP ####[facility] Yrkgenmldm5272 [place] [id number]. Lizandro Hemphill Calcium [Mass/Vol] 7.7 mg/dL Critically low 8.5-10.1 [facility] Comment on above: Performed By: #### L IVER, BMP ####[facility] Xwkwwjvijo5340 [place] [id number]. Lizandro Hemphill Chloride [Moles/Vol] 108 mmol/L Critically high 98-107 [facility] Comment on above: Performed By: #### L IVER, BMP ####[facility] Kmdghfccrc8618 [place] [address]Dr. Lizandro Hemphill CO2 [Moles/Vol] 25.4 mmol/L Normal 21.0-32.0 The [facility] Comment on above: Performed By: #### L IVER, BMP ####[facility] Ohbvvxifyc827[address] [place], [place] [address]Dr. Lizandro Hemphill Creatinine [Mass/Vol] 0.62 mg/dL Normal 0.55-1.02 [facility] Comment on above: Performed By: #### L IVER, BMP ####[facility] Dceopppuyv05[address] [place], [place] [address]Dr. Lizandro Hemphill EGFR-AF SOMALI >60 Normal >=60 [facility] Comment on above: Performed By: #### L IVER, BMP ####[facility] Crqsilsatn30[address] [place], [place] [address]Dr. Lizandro Hemphill EGFR-NON AF SOMALI >60 Normal >=60 [facility] Comment on above: Performed By: #### L IVER, BMP ####[facility] Xafasappqj8612 [place] [phone]. Lizandro Hemphill Glucose [Mass/Vol] 115 mg/dL Critically high 74-106 [facility] Comment on above: Performed By: #### L IVER, BMP ####[facility] Kefjcvnjcv2982 [place] [address]Dr. Lizandro Hemphill Potassium [Moles/Vol] 3.6 mmol/L Normal 3.5-5.1 [facility] Comment on above: Performed By: #### L ROXANA, BMP ####[facility] Dvqhowygqc2940 [place] [address]Dr. Lizandro Hemphill Sodium [Moles/Vol] 141 mmol/L Normal 136-145 [facility] Comment on above: Performed By: #### L ROXANA, ELSA ####[facility] Tgwkevflmr2309 [place] [address]Dr. Lizandro Hemphill Urea nitrogen [Mass/Vol] 9.0 mg/dL Normal 7.0-18.0 [facility] Comment on above: Performed By: #### L ELSA SCHMIDT ####[facility] Pgdkiantul8[address] [place], [place] [address]Dr. Lizandro Hemphill Urea nitrogen/Creatinin e [Mass ratio] 14.5 mg/mg Normal [facility] Comment on above: Performed By: #### L ELSA SCHMIDT ####[facility] Kzqndskrcl6935[address] [place], [place] [address]Dr. Lizandro Hemphill PROTIMEon 03-05-2022 INR Coag (PPP) [Relative time] 0.93 {INR} Normal [facility] Comment on above: Performed By: #### P T ####[facility] Eaxwizzyas5359[address] [place], [place] [address]Dr. Lizandro Hemphill INR GUIDELINES SEE BELOW Normal [facility] Comment on above: Result Comment: GUEVARA RED INR: 2.0 - 3.0 CONDITIONS NOT LISTED BELOW 2.5 - 3.5 FOR PROSTHETIC HEART VALVE REPLACEMENT 2.5 - 3.5 RECURRENT THROMBOSIS Performed By: #### P T ####[facility] Owexmnnlki5899[address] [place], [place] [address]Dr. Lizandro Hemphill PT Coag (PPP) [Time] 10.1 s Normal 9.0-11.6 [facility] Comment on above: Performed By: #### P T ####[facility] Ikibiaszrx[address] [place], [place] [address]Dr. Lizandro Hemphill CBC AUTO DIFFon 03-04-2022 BASO # 0.1 103/ul Normal 0.0-0.1 [facility] Comment on above: Performed By: #### C BC ####[facility] Dbaqfjbgxu97[address] [place] [address]Dr. Lizandro Hemphill Basophils/100 WBC (Bld) 0.8 % Normal 0.2-2.0 [facility] Comment on above: Performed By: #### C BC ####[facility] Ediyaxmdbt098[address] [place], [place] [address]Dr. Lizandro Hemphill EO # 0.1 103/ul Normal 0.0-0.7 [facility] Comment on above: Performed By: #### C BC ####[facility] Gnlouvweoz[address] [place], [place] [address]Dr. Lizandro Hemphill Eosinophils/100 WBC (Bld) 0.6 % Critically low 0.9-7.0 [facility] Comment on above: Performed By: #### C BC ####[facility] Qmbtoxtpsx337[address] [place], [place] [address]Dr. Lizandro Hemphill Erythrocyte distribution width (RBC) [Ratio] 15.3 % Critically high 11.0-15.0 [facility] Comment on above: Performed By: #### C BC ####[facility] Ansogyalkj309[address] [place], [place] [address]Dr. Lizandro Hemphill Hematocrit (Bld) [Volume fraction] 30.5 % Critically low 36.0-48.0 [facility] Comment on above: Performed By: #### C BC ####[facility] Ptwikbfzbj65[address] [place], [place] [address]Dr. Lizandro Hemphill Hemoglobin (Bld) [Mass/Vol] 10.3 g/dL Critically low 12.0-16.0 [facility] Comment on above: Performed By: #### C BC ####[facility] Rzofpftfth[address] [place], [place] [address]Dr. Lizandro Hemphill IG # 0.05 10e3/ul Critically high 0.00-0.03 [facility] Comment on above: Performed By: #### C BC ####[facility] Slxrefayoe173[address] [place], [place] [address]Dr. Lizandro Hemphill IG % 0.5 % Normal 0.0-0.5 [facility] Comment on above: Performed By: #### C BC ####[facility] Nsybfkgpdk1826 [place] [id number]. Lizandro Joby LYMPH # 1.7 103/ul Normal 1.2-3.8 [facility] Comment on above: Performed By: #### C BC ####[facility] Nuawukelri1612 [place] [id number]. Shanikaannie Hemphill Lymphocytes/100 WBC (Bld) 16.1 % Critically low 20.5-60.0 [facility] Comment on above: Performed By: #### C BC ####[facility] Duxeopqjgn0098 [place] [address]DrCiro Hemphill MANUAL DIFF REQ NO Normal [facility] Comment on above: Performed By: #### C BC ####[facility] Eunkagusjo2362 [place] [phone]. Lizandro Hemphill MCH (RBC) [Entitic mass] 28.5 pg Normal 26.7-34.0 [facility] Comment on above: Performed By: #### C BC ####[facility] Ubuzyeeara6406 [place] [id number]. Lizandro Joby MCHC (RBC) [Mass/Vol] 33.8 g/dL Normal 29.9-35.2 [facility] Comment on above: Performed By: #### C BC ####[facility] Kgthldecxo8801 [place] [phone] Hemphill MCV (RBC) [Entitic vol] 84.5 fL Normal 81.0-99.0 [facility] Comment on above: Performed By: #### C BC ####[facility] Skostmhxdt1034 [place] [phone] Hemphill MONO # 0.7 103/ul Normal 0.3-0.8 [facility] Comment on above: Performed By: #### C BC ####[facility] Bruucmpoyx0424 [place] [phone]. Lizandro Hemphill Monocytes/100 WBC (Bld) 7.1 % Normal 1.7-12.0 [facility] Comment on above: Performed By: #### C BC ####[facility] Rtomzncbvg3939 [place] [id number]. Lizandro Hemphill NEUT # 7.8 103/ul Critically high 1.4-6.5 [facility] Comment on above: Performed By: #### C BC ####[facility] Ejnsljdkuz3015 [place] [address]Dr. Lizandro Hemphill Neutrophils/100 WBC (Bld) 74.9 % Normal 43.0-75.0 [facility] Comment on above: Performed By: #### C BC ####[facility] Dbuvzhiqyv6075 [place] [address]Dr. Lizandro Hemphill Platelet mean volume (Bld) [Entitic vol] 9.6 fL Normal 9.5-13.5 [facility] Comment on above: Performed By: #### C BC ####[facility] Kiilkrwisq9950 [place] [address]Dr. Lizandro Hemphill PLT 374 103/ul Normal 150-450 [facility] Comment on above: Performed By: #### C BC ####[facility] Nkntlfxfud6122 [place] [address]Dr. Lizandro Hemphill RBC 3.61 106/ul Critically low 4.20-5.40 [facility] Comment on above: Performed By: #### C BC ####[facility] Jgzrjgvckt3821 [place] [address]Dr. Lizandro Hemphill WBC 10.4 103/ul Normal 4.0-11.0 [facility] Comment on above: Performed By: #### C BC ####[facility] Xyvcmrmdfl2832 [place] [id number]. Lizandro Hemphill BASO # 0.1 103/ul Normal 0.0-0.1 [facility] Comment on above: Performed By: #### C BC ####[facility] Wiumvptijb8715 [place] [address]Dr. Lizandro Hemphill Basophils/100 WBC (Bld) 0.8 % Normal 0.2-2.0 [facility] Comment on above: Performed By: #### C BC ####[facility] Afuyoufehf7418 [place] [address]Dr. Lizandro Hemphill EO # 0.1 103/ul Normal 0.0-0.7 [facility] Comment on above: Performed By: #### C BC ####[facility] Qmmexykqeg2373 [place] [address]Dr. Lizandro Joby Eosinophils/100 WBC (Bld) 0.6 % Critically low 0.9-7.0 [facility] Comment on above: Performed By: #### C BC ####[facility] Jvhcvmgpms240[address] [place], [place] [address]Dr. Lizandro Joby Erythrocyte distribution width (RBC) [Ratio] 15.1 % Critically high 11.0-15.0 [facility] Comment on above: Performed By: #### C BC ####[facility] Biavtrtmng377[address] [place], [place] [address]Dr. Lizandro Joby Hematocrit (Bld) [Volume fraction] 25.7 % Critically low 36.0-48.0 [facility] Comment on above: Performed By: #### C BC ####[facility] Eamolbmdfd80[address] [place], [place] [address]Dr. Lizandro Joby Hemoglobin (Bld) [Mass/Vol] 8.4 g/dL Critically low 12.0-16.0 [facility] Comment on above: Result Comment: aurora garcia Performed By: #### C BC ####[facility] Pusdzxyhrs24[address] [place], [place] [address]Dr. Lizandro Joby IG # 0.07 10e3/ul Critically high 0.00-0.03 [facility] Comment on above: Performed By: #### C BC ####[facility] Flzyzyjxoa26[address] [place], [place] [address]Dr. Shanikaannie Joby IG % 0.6 % Critically high 0.0-0.5 [facility] Comment on above: Performed By: #### C BC ####[facility] Uzyyvcmtls5422[address] [place], [place] [address]Dr. Lizandro Hemphill LYMPH # 1.5 103/ul Normal 1.2-3.8 [facility] Comment on above: Performed By: #### C BC ####[facility] Yejvcqucyu9539 [place] [address]Dr. Lizandro Hemphill Lymphocytes/100 WBC (Bld) 13.3 % Critically low 20.5-60.0 [facility] Comment on above: Performed By: #### C BC ####[facility] Wxertwtiwb8085 [place] [address]Dr. Lizandro Hemphill MANUAL DIFF REQ NO Normal [facility] Comment on above: Performed By: #### C BC ####[facility] Sinppsshie7193 [place] [address]Dr. Lizandro Hemphill MCH (RBC) [Entitic mass] 28.4 pg Normal 26.7-34.0 [facility] Comment on above: Performed By: #### C BC ####[facility] Yqmjyxvwxm3[address] [place], [place] [address]Dr. Lizandro Hemphill MCHC (RBC) [Mass/Vol] 32.7 g/dL Normal 29.9-35.2 [facility] Comment on above: Performed By: #### C BC ####[facility] Sjzanrqhio[address] [place], [place] [address]DrCiro Hemphill MCV (RBC) [Entitic vol] 86.8 fL Normal 81.0-99.0 [facility] Comment on above: Performed By: #### C BC ####[facility] Wprljjzxzs04[address] [place], [place] [address]Dr. Lizandro Hemphill MONO # 0.9 103/ul Critically high 0.3-0.8 [facility] Comment on above: Performed By: #### C BC ####[facility] Mquzzepmpv[address] [place], [place] [address]Dr. Lizandro Hemphill Monocytes/100 WBC (Bld) 8.2 % Normal 1.7-12.0 [facility] Comment on above: Performed By: #### C BC ####[facility] Gsmovoltqb45[address] [place], [place] [address]DrCiro Hemphill NEUT # 8.7 103/ul Critically high 1.4-6.5 [facility] Comment on above: Performed By: #### C BC ####[facility] Fmfgnbgrpd4455 [place] [address]Dr. Lizandro Hemphill Neutrophils/100 WBC (Bld) 76.5 % Critically high 43.0-75.0 [facility] Comment on above: Performed By: #### C BC ####[facility] Hwiusxbgwf5602 [place] [address]Dr. Lizandro Hemphill Platelet mean volume (Bld) [Entitic vol] 10.2 fL Normal 9.5-13.5 [facility] Comment on above: Performed By: #### C BC ####[facility] Tkfoqlqvfm[address] [place], [place] [address]Dr. Lizandro Hemphill PLT 287 103/ul Normal 150-450 [facility] Comment on above: Performed By: #### C BC ####[facility] Jsqldzldmn437486 [address] [place], [place] [address]Dr. Lizandro Hemphill RBC 2.96 106/ul Critically low 4.20-5.40 [facility] Comment on above: Performed By: #### C BC ####[facility] M[address]vtfsgnzt[address] [place], [place] [address]Dr. Lizandro Hemphill WBC 11.4 103/ul Critically high 4.0-11.0 The [facility] Comment on above: Performed By: #### C BC ####[facility] Vhufskagnh2[address] [place], [place] [address]Dr. Lizandro Joby CT ABD/PELVIS WO CONon 03-04 CT ABD/PELVIS WO CON Normal [facility] PROF CHEM 8 (BAS METB)on Anion gap [Moles/Vol] 12.4 mmol/L Normal [facility] Comment on above: Performed By: #### B MP ####[facility] Bpfglqanga8[address] [place] [address]DrCiro Hemphill Calcium [Mass/Vol] 8.0 mg/dL Critically low 8.5-10.1 Th [facility] Comment on above: Performed By: #### B MP ####[facility] Mvskllqbba6[address] [place] [address]Dr. Lizandro Hemphill Chloride [Moles/Vol] 106 mmol/L Normal 98-107 [facility] Comment on above: Performed By: #### B MP ####[facility] Hympkyxdjd8628 [place] [address]Dr. Lizandro Hemphill CO2 [Moles/Vol] 24.3 mmol/L Normal 21.0-32.0 The [facility] Comment on above: Performed By: #### B MP ####[facility] Lpejzlagnz9[address] [place] [address]Dr. Lizandro Hemphill Creatinine [Mass/Vol] 0.85 mg/dL Normal 0.55-1.02 [facility] Comment on above: Performed By: #### B MP ####[facility] Njhfxqmnll33[address] [place], [place] [address]Dr. Lizandro Hemphill EGFR-AF SOMALI >60 Normal >=60 The [facility] Comment on above: Performed By: #### B MP ####[facility] Feuryduenz[address] [place], [place] [address]Dr. Lizandro Hemphill EGFR-NON AF SOMALI >60 Normal >=60 [facility] Comment on above: Performed By: #### B MP ####[facility] Vsfddlcexp6465[address] [place], [place] [address]Dr. Lizandro Hemphill Glucose [Mass/Vol] 91 mg/dL Normal 74-106 [facility] Comment on above: Performed By: #### B MP ####[facility] Ozxbbcgkde4437[address] [place], [place] [address]Dr. Lizandro Hemphill Potassium [Moles/Vol] 3.7 mmol/L Normal 3.5-5.1 [facility] Comment on above: Performed By: #### B MP ####[facility] Uknnbssbii364[address] [place], [place] [address]Dr. Shanikaannie Hemphill Sodium [Moles/Vol] 139 mmol/L Normal 136-145 [facility] Comment on above: Performed By: #### B MP ####[facility] Rejryqzgtp4[address] [place], [place] [id number]. Lizandro Hemphill Urea nitrogen [Mass/Vol] 24.0 mg/dL Critically high 7.0-18.0 [facility] Comment on above: Performed By: #### B MP ####[facility] Vkmehdzuzp54[address] [place], [place] [address]Dr. Shanikaannie Hemphill Urea nitrogen/Creatinin e [Mass ratio] 28.2 mg/mg Normal [facility] Comment on above: Performed By: #### B MP ####[facility] Gxxdncuiql832[address] [place], [place] [address]Dr. Shanikaannie Joby PROTIMEon 03-04-2022 INR Coag (PPP) [Relative time] 1.08 {INR} Normal [facility] Comment on above: Performed By: #### P T ####[facility] Gmgzaizotk5924[address] [place], [place] [address]Dr. Lizandro Hemphill INR GUIDELINES SEE BELOW Normal The [facility] Comment on above: Result Comment: GUEVARA RED INR: 2.0 - 3.0 CONDITIONS NOT LISTED BELOW 2.5 - 3.5 FOR PROSTHETIC HEART VALVE REPLACEMENT 2.5 - 3.5 RECURRENT THROMBOSIS Performed By: #### P T ####[facility] Vmeaeayuwv893[address] [place], [place] [address]Dr. Lizandro Hemphill PT Coag (PPP) [Time] 11.6 s Normal 9.0-11.6 [facility] Comment on above: Performed By: #### P T ####[facility] Vpgkapmetr0039[address] [place], [place] [address]Dr. Lizandro Joby BNPon 03-03-2022 Natriuretic peptide B (Bld) [Mass/Vol] 71.0 pg/mL Normal <=900.0 [facility] Comment on above: Performed By: #### H STROPN, LIPA, BNP, CMP ####[facility] Yhrxotdltd309[address] [place], [place] [address]Dr. Lizandro Hemphill CBC AUTO DIFFon 03-03-2022 BASO # 0.1 103/ul Normal 0.0-0.1 [facility] Comment on above: Performed By: #### C BC ####[facility] Jqqgoywqgw[address] [place] [id number]. Lizandro Hemphill Basophils/100 WBC (Bld) 0.7 % Normal 0.2-2.0 [facility] Comment on above: Performed By: #### C BC ####[facility] Cgtzeyiqqb2460 [place] [id number]. Lizandro Hemphill EO # 0.0 103/ul Normal 0.0-0.7 [facility] Comment on above: Performed By: #### C BC ####[facility] Alepxjzbkn4647[address] [place], [place] [address]Dr. Lizandro Hemphill Eosinophils/100 WBC (Bld) 0.2 % Critically low 0.9-7.0 [facility] Comment on above: Performed By: #### C BC ####[facility] Hvixsowdzu8[address] [place], [place] [address]Dr. Lizandro Hemphill Erythrocyte distribution width (RBC) [Ratio] 16.3 % Critically high 11.0-15.0 [facility] Comment on above: Performed By: #### C BC ####[facility] Hkqzhkwclr8364[address] [place], [place] [address]Dr. Lizandro Hemphill Hematocrit (Bld) [Volume fraction] 17.3 % Critically low 36.0-48.0 [facility] Comment on above: Performed By: #### C BC ####[facility] Cydeotwats4922 [place] [id number]. Lizandro Hemphill Hemoglobin (Bld) [Mass/Vol] 6.2 g/dL Critically low 12.0-16.0 [facility] Comment on above: Performed By: #### C BC ####[facility] Ymrgumzumc4781 [place] [id number]. Lizandro Hemphill IG # 0.09 10e3/ul Critically high 0.00-0.03 [facility] Comment on above: Performed By: #### C BC ####[facility] Ktgphprjhg7[address] [place], [place] [address]Dr. Lizandro Hemphill IG % 0.7 % Critically high 0.0-0.5 [facility] Comment on above: Performed By: #### C BC ####[facility] Iqkhooiqwd6570 [place] [id number]. Lizandro Hemphill LYMPH # 2.2 103/ul Normal 1.2-3.8 [facility] Comment on above: Performed By: #### C BC ####[facility] Laaimxehgg3899 [place] [id number]. Lizandro Joby Lymphocytes/100 WBC (Bld) 16.1 % Critically low 20.5-60.0 [facility] Comment on above: Performed By: #### C BC ####[facility] Xtexojqxpg4128 [place] [id number]. Shanikaannie Hemphill MANUAL DIFF REQ NO Normal [facility] Comment on above: Performed By: #### C BC ####[facility] Rzpdxzscei7808 [place] [id number]. Lizandro Joby MCH (RBC) [Entitic mass] 30.0 pg Normal 26.7-34.0 [facility] Comment on above: Performed By: #### C BC ####[facility] Cirhoqvtwo8247 [place] [phone]. Lizandro Hemphill MCHC (RBC) [Mass/Vol] 35.8 g/dL Critically high 29.9-35.2 [facility] Comment on above: Performed By: #### C BC ####[facility] Rhmklqqbqb6373 [place] [id number]. Lizandro Hemphill MCV (RBC) [Entitic vol] 83.6 fL Normal 81.0-99.0 [facility] Comment on above: Performed By: #### C BC ####[facility] Mctououqjg4766 [place] [id number]. Lizandro Joby MONO # 1.0 103/ul Critically high 0.3-0.8 [facility] Comment on above: Performed By: #### C BC ####[facility] Gjcxgfbrha2254 [place] [phone]. Lizandro Hemphill Monocytes/100 WBC (Bld) 7.2 % Normal 1.7-12.0 [facility] Comment on above: Performed By: #### C BC ####[facility] Lsaeapmjok0326 [place] [id number]. Lizandro Hemphill NEUT # 10.3 103/ul Critically high 1.4-6.5 The [facility] Comment on above: Performed By: #### C BC ####[facility] Httxrjrlpi0665 [place] [id number]. Lizandro Hemphill Neutrophils/100 WBC (Bld) 75.1 % Critically high 43.0-75.0 [facility] Comment on above: Performed By: #### C BC ####[facility] Jslrtojqgw4703 [place] [address]Dr. Lizandro Hemphill Platelet mean volume (Bld) [Entitic vol] 10.0 fL Normal 9.5-13.5 [facility] Comment on above: Performed By: #### C BC ####[facility] Nvbvxyuhht3076 [place] [address]Dr. Lizandro Hemphill PLT 412 103/ul Normal 150-450 [facility] Comment on above: Performed By: #### C BC ####[facility] Xvvlzpaznl7150 [place] [address]Dr. Lizandro Hemphill RBC 2.07 106/ul Critically low 4.20-5.40 [facility] Comment on above: Performed By: #### C BC ####[facility] Foipzhbmpe7969 [place] [address]Dr. Lizandro Hemphill WBC 13.7 103/ul Critically high 4.0-11.0 The [facility] Comment on above: Performed By: #### C BC ####[facility] Idphvheyru[address] [place], [place] [id number]. Lizandro Hemphill BASO # 0.1 103/ul Normal 0.0-0.1 [facility] Comment on above: Performed By: #### C BC ####[facility] Wqkvojjvch9544 [place] [address]Dr. Lizandro Hemphill Basophils/100 WBC (Bld) 0.6 % Normal 0.2-2.0 [facility] Comment on above: Performed By: #### C BC ####[facility] Vroauindef5957 [place] [id number]. Lizandro Hemphill EO # 0.0 103/ul Normal 0.0-0.7 [facility] Comment on above: Performed By: #### C BC ####[facility] Crdoqtfgan6500 [place] [id number]. Lizandro Hemphill Eosinophils/100 WBC (Bld) 0.2 % Critically low 0.9-7.0 [facility] Comment on above: Performed By: #### C BC ####[facility] Vxkqfczlxo5889 [place] [address]Dr. Lizandro Hemphill Erythrocyte distribution width (RBC) [Ratio] 16.4 % Critically high 11.0-15.0 [facility] Comment on above: Performed By: #### C BC ####[facility] Khkpgeneia650[address] [place], [place] [address]Dr. Lizandro Hemphill Hematocrit (Bld) [Volume fraction] 19.1 % Critically low 36.0-48.0 [facility] Comment on above: Performed By: #### C BC ####[facility] Mjjwxmhrkh0286 [place] [phone]. Lizandro Hemphill Hemoglobin (Bld) [Mass/Vol] 6.3 g/dL Critically low 12.0-16.0 [facility] Comment on above: Performed By: #### C BC ####[facility] Jvgjtpiwew308[address] [place], [place] [address]Dr. Lizandro Hemphill IG # 0.09 10e3/ul Critically high 0.00-0.03 [facility] Comment on above: Performed By: #### C BC ####[facility] Skzrondahl6576 [place] [address]Dr. Lizandro Hemphill IG % 0.6 % Critically high 0.0-0.5 [facility] Comment on above: Performed By: #### C BC ####[facility] Wshcbojioe1924[address] [place], [place] [address]Dr. Lizandro Hemphill LYMPH # 1.7 103/ul Normal 1.2-3.8 [facility] Comment on above: Performed By: #### C BC ####[facility] Hiszwlisra3388 [place] [address]Dr. Shanikaannie Hemphill Lymphocytes/100 WBC (Bld) 11.9 % Critically low 20.5-60.0 [facility] Comment on above: Performed By: #### C BC ####[facility] Qfyttpqvvw6216 [place] [id number]. Lizandro Hemphill MANUAL DIFF REQ NO Normal [facility] Comment on above: Performed By: #### C BC ####[facility] Fnufpfqbui24[address] [place], [place] [id number]. Shanikaannie Hemphill MCH (RBC) [Entitic mass] 28.4 pg Normal 26.7-34.0 [facility] Comment on above: Performed By: #### C BC ####[facility] Tzlohsfysi557[address] [place], [place] [address]Dr. Lizandro Hemphill MCHC (RBC) [Mass/Vol] 33.0 g/dL Normal 29.9-35.2 [facility] Comment on above: Performed By: #### C BC ####[facility] Thmtnfgnjt099[address] [place], [place] [address]Dr. Lizandro Hemphill MCV (RBC) [Entitic vol] 86.0 fL Normal 81.0-99.0 [facility] Comment on above: Performed By: #### C BC ####[facility] Tdwmalgnna988[address] [place], [place] [address]Dr. Lizandro Hemphill MONO # 0.9 103/ul Critically high 0.3-0.8 [facility] Comment on above: Performed By: #### C BC ####[facility] Fkwxupsglc6464[address] [place], [place] [address]Dr. Lizandro Hemphill Monocytes/100 WBC (Bld) 6.1 % Normal 1.7-12.0 [facility] Comment on above: Performed By: #### C BC ####[facility] Dnmtptolit27[address] [place], [place] [address]Dr. Lizandro Hemphill NEUT # 11.7 103/ul Critically high 1.4-6.5 The [facility] Comment on above: Performed By: #### C BC ####[facility] Qpppowownd2748 [place], [place] [address]Tk. Lizandro Hemphill Neutrophils/100 WBC (Bld) 80.6 % Critically high 43.0-75.0 [facility] Comment on above: Performed By: #### C BC ####[facility] Kuvmlacvtw2809 [place], [place] [address]Iq. Lizandro Hemphill Platelet mean volume (Bld) [Entitic vol] 10.1 fL Normal 9.5-13.5 [facility] Comment on above: Performed By: #### C BC ####[facility] Uuigvzrxdi4505 [place], [place] [address]Bw. Lizandro Hemphill PLT 449 103/ul Normal 150-450 [facility] Comment on above: Performed By: #### C BC ####[facility] Cqmtnnnaum9770 [place], [place] [address]Oq. Lizandro Hemphill RBC 2.22 106/ul Critically low 4.20-5.40 [facility] Comment on above: Performed By: #### C BC ####[facility] Ydttuckwbv1688 [place], [place] [address]Xe. Lizandro Hemphill WBC 14.6 103/ul Critically high 4.0-11.0 The [facility] Comment on above: Performed By: #### C BC ####[facility] Tndmtvyqpb3350 [place], [place] [address]Oo. Lizandro Hemphill [facility]on SARS-CoV-2 (COVID-19) RNA VERITO+probe Ql (Unsp spec) Not detected Normal NOT DETECTED [facility] Comment on above: Result Comment: When diagnostic [...] for this test is supported by the [place] of Health and Human Service's declaration that [...] be used). Performed By: #### C VDTBH ####[facility] Tewvdkqlqo164[address] [place], [place] [address]Dr. Lizandro Hemphill LACTATE/LACTIC ACIDon 2021 Lactate [Moles/Vol] 1.4 mmol/L Normal 0.4-1.9 [facility] Comment on above: Performed By: #### L ACT ####[facility] Uueccgcahc[address] [place], [place] [address]Dr. Lizandro Hemphill Lactate [Moles/Vol] 2.0 mmol/L Critically high 0.4-1.9 [facility] Comment on above: Performed By: #### L ACT ####[facility] Dyqtdwfwfh12[address] [place], [place] [address]Dr. Lizandro Hemphill LIPASEon 03-03-2022 Lipase [Catalytic activity/Vol] 135.0 U/L Normal 73.0-393.0 [facility] Comment on above: Performed By: #### H STROPN, LIPA, BNP, CMP ####[facility] Yxfkntkmbj1167[address] [place], [place] [address]DrCiro Hemphill PROF 14(COMP METB)on 022 Albumin [Mass/Vol] 2.8 g/dL Critically low 3.4-5.0 [facility] Comment on above: Performed By: #### H STROPN, LIPA, BNP, CMP ####[facility] Bwbnnsmfmb265[address] [place], [place] [address]DrCiro Hemphill Albumin/Globulin [Mass ratio] 0.9 {ratio} Normal [facility] Comment on above: Performed By: #### H STROPN, LIPA, BNP, CMP ####[facility] Vjmiddpcsy42[address] [place], [place] [address]DrCiro eHmphill ALP [Catalytic activity/Vol] 96 U/L Normal 46-116 [facility] Comment on above: Performed By: #### H STROPN, LIPA, BNP, CMP ####[facility] Rsxjqokahy9603 [place] [address]Dr. Lizandro Hemphill ALT [Catalytic activity/Vol] 44 U/L Normal 14-59 [facility] Comment on above: Performed By: #### H STROPN, LIPA, BNP, CMP ####[facility] Mgkpsmadfm1106 [place] [address]Dr. Lizandro Hemphill Anion gap [Moles/Vol] 14.6 mmol/L Normal [facility] Comment on above: Performed By: #### H STROPN, LIPA, BNP, CMP ####[facility] Dtzbgfmaip2927 [place] [address]Dr. Lizandro Hemphill AST [Catalytic activity/Vol] 46 U/L Critically high 15-37 [facility] Comment on above: Performed By: #### H STROPN, LIPA, BNP, CMP ####[facility] Fchbhgwhgk0764[address] [place], [place] [address]Dr. Lizandro Hemphill Bilirubin [Mass/Vol] 0.2 mg/dL Normal 0.2-1.0 [facility] Comment on above: Performed By: #### H STROPN, LIPA, BNP, CMP ####[facility] Ojdynfdtug8236 [place] [address]Dr. Lizandro Hemphill Calcium [Mass/Vol] 8.8 mg/dL Normal 8.5-10.1 [facility] Comment on above: Performed By: #### H STROPN, LIPA, BNP, CMP ####[facility] Yulbbbzhbr6840 [place] [address]Dr. Lizandro Hemphill Chloride [Moles/Vol] 105 mmol/L Normal 98-107 [facility] Comment on above: Performed By: #### H STROPN, LIPA, BNP, CMP ####[facility] Ifsrwvzlqo1088 [place] [address]Dr. Lizandro Hemphill CO2 [Moles/Vol] 22.9 mmol/L Normal 21.0-32.0 [facility] Comment on above: Performed By: #### H STROPN, LIPA, BNP, CMP ####[facility] Fvfyhiphxk2255[address] [place], [place] [address]Dr. Lizandro Hemphill Creatinine [Mass/Vol] 1.07 mg/dL Critically high 0.55-1.02 [facility] Comment on above: Performed By: #### H STROPN, LIPA, BNP, CMP ####[facility] Iafkchrbfw7664[address] [place], [place] [address]Dr. Lizandro Hemphill EGFR-AF SOMALI 63 mL/min/1.73m2 Normal >=60 [facility] Comment on above: Performed By: #### H STROPN, LIPA, BNP, CMP ####[facility] Xlwwzjuttg304[address] [place], [place] [address]Dr. Shanikaannie Hemphill EGFR-NON AF SOMALI 52 mL/min/1.73m2 Critically low >=60 [facility] Comment on above: Performed By: #### H STROPN, LIPA, BNP, CMP ####[facility] Wcqhblqydy33[address] [place], [place] [address]Dr. Lizandro Hemphill Globulin (S) [Mass/Vol] 3.1 g/dL Normal [facility] Comment on above: Performed By: #### H STROPN, LIPA, BNP, CMP ####[facility] Ucoqucigak6557[address] [place], [place] [address]Dr. Lizandro Hemphill Glucose [Mass/Vol] 123 mg/dL Critically high 74-106 [facility] Comment on above: Performed By: #### H STROPN, LIPA, BNP, CMP ####[facility] Knjgzkijvl3466 [place] [address]Dr. Lizandro Hemphill Potassium [Moles/Vol] 3.5 mmol/L Normal 3.5-5.1 [facility] Comment on above: Performed By: #### H STROPN, LIPA, BNP, CMP ####[facility] Opzactuuhm822[address] [place], [place] [address]Dr. Lizandro Hemphill Protein [Mass/Vol] 5.9 g/dL Critically low 6.4-8.2 [facility] Comment on above: Performed By: #### H STROPN, LIPA, BNP, CMP ####[facility] Vuwglqboqo4789 [place] [address]Dr. Lizandro Hemphill Sodium [Moles/Vol] 139 mmol/L Normal 136-145 [facility] Comment on above: Result Comment: kennedy sly lipemic sample Performed By: #### H STROPN, LIPA, BNP, CMP ####[facility] Tuiwjhriul8978 [place] [address]Dr. Lizandro Hemphill Urea nitrogen [Mass/Vol] 37.0 mg/dL Critically high 7.0-18.0 [facility] Comment on above: Performed By: #### H STROPN, LIPA, BNP, CMP ####[facility] Urwpczlwnd6227[address] [place], [place] [address]Dr. Lizandro Hemphill Urea nitrogen/Creatinin e [Mass ratio] 34.6 mg/mg Normal [facility] Comment on above: Performed By: #### H STROPN, LIPA, BNP, CMP ####[facility] Crqkjbrynj047[address] [place], [place] [address]Dr. Lizandro Hemphill PROTIMEon 03-03-2022 INR Coag (PPP) [Relative time] 1.18 {INR} Normal [facility] Comment on above: Performed By: #### P T ####[facility] Xyngkegwwl9860[address] [place], [place] [address]Dr. Lizandro Hemphill INR GUIDELINES SEE BELOW Normal [facility] Comment on above: Result Comment: GUEVARA RED INR: 2.0 - 3.0 CONDITIONS NOT LISTED BELOW 2.5 - 3.5 FOR PROSTHETIC HEART VALVE REPLACEMENT 2.5 - 3.5 RECURRENT THROMBOSIS Performed By: #### P T ####[facility] Gwdworqdfm[address] [place], [place] [address]Dr. Lizandro Hemphill PT Coag (PPP) [Time] 12.6 s Critically high 9.0-11.6 [facility] Comment on above: Performed By: #### P T ####[facility] Alwnurpczi730[address] [place], [place] [address]DrCiro Hemphill INR Coag (PPP) [Relative time] 1.22 {INR} Normal [facility] Comment on above: Performed By: #### P T, PTT ####[facility] Cievnihsps8150 [place] [id number] Hemphill INR GUIDELINES SEE BELOW Normal [facility] Comment on above: Result Comment: GUEVARA RED INR: 2.0 - 3.0 CONDITIONS NOT LISTED BELOW 2.5 - 3.5 FOR PROSTHETIC HEART VALVE REPLACEMENT 2.5 - 3.5 RECURRENT THROMBOSIS Performed By: #### P T, PTT ####[facility] Yumgowqwni3635 [place] [id number]. Lizandro Hemphill PT Coag (PPP) [Time] 13.0 s Critically high 9.0-11.6 [facility] Comment on above: Performed By: #### P T, PTT ####[facility] Hpwsqybdcn2655 [place] [address]DrCiro Hemphill PTTon 03-03-2022 aPTT Coag (Bld) [Time] 23.1 s Normal 22.3-36.2 [facility] Comment on above: Performed By: #### P T, PTT ####[facility] Vcqiltsanb8[address] [place], [place] [address]DrCiro Hemphill TROPONIN, HIGH SENSITIVITYon 03-03-2022 HSTROP 7.5 pg/mL Normal 4.0-51.3 [facility] Comment on above: Result Comment: CUT- OFF POINTS HAVE BEEN ESTABLISHED BASED ON THE FOURTH UNIVERSAL DEFINITIONS OF MYOCARDIALINFARCTION. THE UPPER REFERENCE LIMIT (URL) OF TROPONIN, DEFINED THE 99TH PERCENTILE OFcTnI DISTRIBUTION IN A REFERENCE POPULATION, HAS BEEN CONFIRMED THE DECISION THRESHOLDFOR [place] DIAGNOSIS. Performed By: #### H STROPN, LIPA, BNP, CMP ####[facility] Xqvthrkbip566[address] [place], [place] [address]DrCiro Hemphill TYPE AND SCREENon 03-03-2022 TYPE AND SCREEN Negative Normal [facility] Comment on above: Performed By: #### T NS ####[facility] Szycclqcws79[address] [place], [place] [address]DrCiro Hemphill CT HIP LT WO CONon 2 CT HIP LT WO CON Normal The [facility] XR HIP LT 2 3V W PELVISon XR HIP LT 2 3V W PELVIS Normal [facility] CT CSPINE WO CONon 2 CT CSPINE WO CON Normal The [facility] PRBC LEUKOREDUCEDon 02-03-20 22 PRBC LEUKOREDUCED Normal The [facility] Comment on above: Performed By: #### P RBC ####[facility] Ujocddirlx3002 [place] [address]Dr. Lizandro Hemphill US VENOUS DOPPLER L Monty US VENOUS DOPPLER L ARM Normal [facility] CBC AUTO DIFFon 01-27-2022 BASO # 0.1 103/ul Normal 0.0-0.1 [facility] Comment on above: Performed By: #### C BC ####[facility] Zecbuerpkw6173 [place] [address]Dr. Lizandro Hemphill Basophils/100 WBC (Bld) 0.5 % Normal 0.2-2.0 [facility] Comment on above: Performed By: #### C BC ####[facility] Lvocxwnxdq2870 [place] [address]Dr. Lizandro Hemphill EO # 0.1 103/ul Normal 0.0-0.7 [facility] Comment on above: Performed By: #### C BC ####[facility] Gaghtbzzeu9020 [place] [address]Dr. Lizandro Hemphill Eosinophils/100 WBC (Bld) 1.1 % Normal 0.9-7.0 [facility] Comment on above: Performed By: #### C BC ####[facility] Opwwwtwohe8420 [place] [address]Dr. Lizandro Hemphill Erythrocyte distribution width (RBC) [Ratio] 16.9 % Critically high 11.0-15.0 [facility] Comment on above: Performed By: #### C BC ####[facility] Vhrmcyylni9709 [place] [address]Dr. Lizandro Hemphill Hematocrit (Bld) [Volume fraction] 27.9 % Critically low 36.0-48.0 [facility] Comment on above: Performed By: #### C BC ####[facility] Knrfbtfbgt4344 [place] [address]Dr. Lizandro Hemphill Hemoglobin (Bld) [Mass/Vol] 9.1 g/dL Critically low 12.0-16.0 [facility] Comment on above: Performed By: #### C BC ####[facility] Fxuhbbhcyi6061 [place] [address]Dr. Shanikaannie Joby IG # 0.05 10e3/ul Critically high 0.00-0.03 [facility] Comment on above: Performed By: #### C BC ####[facility] Ibzwusuaoc9299 [place] [address]Dr. Lizandro Hemphill IG % 0.5 % Normal 0.0-0.5 [facility] Comment on above: Performed By: #### C BC ####[facility] Gjikwjcbrl[address] [place], [place] [address]Dr. Lizandro Hemphill LYMPH # 1.9 103/ul Normal 1.2-3.8 [facility] Comment on above: Performed By: #### C BC ####[facility] Ttwszpphds[address] [place], [place] [address]Dr. Lizandro Hemphill Lymphocytes/100 WBC (Bld) 20.2 % Critically low 20.5-60.0 [facility] Comment on above: Performed By: #### C BC ####[facility] Bwyyublpnw7424 [place] [address]Dr. Lizandro Hemphill MANUAL DIFF REQ NO Normal [facility] Comment on above: Performed By: #### C BC ####[facility] Fzlpxewipg6175 [place] [id number]. Lizandro Hemphill MCH (RBC) [Entitic mass] 29.7 pg Normal 26.7-34.0 [facility] Comment on above: Performed By: #### C BC ####[facility] [id number] [place] [id number]. Lizandro Hemphill MCHC (RBC) [Mass/Vol] 32.6 g/dL Normal 29.9-35.2 [facility] Comment on above: Performed By: #### C BC ####[facility] [id number] [place] [id number]. Lizandro Hemphill MCV (RBC) [Entitic vol] 91.2 fL Normal 81.0-99.0 [facility] Comment on above: Performed By: #### C BC ####[facility] [id number] [place] [id number]. Lizandro Hemphill MONO # 1.0 103/ul Critically high 0.3-0.8 [facility] Comment on above: Performed By: #### C BC ####[facility] Hrsraxlhph14[address] [place] [address]Dr. Lizandro Joby Monocytes/100 WBC (Bld) 10.9 % Normal 1.7-12.0 [facility] Comment on above: Performed By: #### C BC ####[facility] Qwjmwwlxey[address] [place], [place] [address]Dr. Lizandro Hemphill NEUT # 6.2 103/ul Normal 1.4-6.5 [facility] Comment on above: Performed By: #### C BC ####[facility] Oygvesjlel[address] [place], [place] [address]Dr. Lizandro Joby Neutrophils/100 WBC (Bld) 66.8 % Normal 43.0-75.0 [facility] Comment on above: Performed By: #### C BC ####[facility] Hgstqmsygx53[address] [place], [place] [address]Dr. Lizandro Joby Platelet mean volume (Bld) [Entitic vol] 11.0 fL Normal 9.5-13.5 [facility] Comment on above: Performed By: #### C BC ####[facility] Rqgugqnuoh[address] [place], [place] [address]Dr. Lizandro Joby PLT 189 103/ul Normal 150-450 [facility] Comment on above: Performed By: #### C BC ####[facility] Agwokvkmbb53[address] [place] [id number]. Lizandro Hemphill RBC 3.06 106/ul Critically low 4.20-5.40 [facility] Comment on above: Performed By: #### C BC ####[facility] Mwjailjcqq8619 [place] [address]Dr. Lizandro Hemphill WBC 9.3 103/ul Normal 4.0-11.0 [facility] Comment on above: Performed By: #### C BC ####[facility] Dhwtdzmylz8[address] [place] [address]Dr. Lizandro Hemphill PROF 14(COMP METB)on 022 Albumin [Mass/Vol] 2.7 g/dL Critically low 3.4-5.0 [facility] Comment on above: Performed By: #### C MP ####[facility] Lmzrycfvje0688 [place] [address]Dr. Lizandro Hemphill Albumin/Globulin [Mass ratio] 0.9 {ratio} Normal [facility] Comment on above: Performed By: #### C MP ####[facility] Cuhnnhziti508[address] [place], [place] [address]Dr. Lizandro Hemphill ALP [Catalytic activity/Vol] 63 U/L Normal 46-116 [facility] Comment on above: Performed By: #### C MP ####[facility] Yhgzsblaof57[address] [place], [place] [address]Dr. Lizandro Hemphill ALT [Catalytic activity/Vol] 27 U/L Normal 14-59 [facility] Comment on above: Performed By: #### C MP ####[facility] Nhtvavhvqk8[address] [place] [address]Dr. Lizandro Hemphill Anion gap [Moles/Vol] 8.5 mmol/L Normal [facility] Comment on above: Performed By: #### C MP ####[facility] Bpylrreaac5135 [place] [address]Dr. Lizandro Hemphill AST [Catalytic activity/Vol] 33 U/L Normal 15-37 [facility] Comment on above: Performed By: #### C MP ####[facility] Yiodiethtk4117 [place] [address]Dr. Lizandro Hemphill Bilirubin [Mass/Vol] 0.2 mg/dL Normal 0.2-1.0 [facility] Comment on above: Performed By: #### C MP ####[facility] Pimfdndxrn3869 [place] [phone]. Lizandro Hemphill Calcium [Mass/Vol] 7.9 mg/dL Critically low 8.5-10.1 [facility] Comment on above: Performed By: #### C MP ####[facility] Byubtlhndh1183 [place] [phone]. Lizandro Hemphill Chloride [Moles/Vol] 102 mmol/L Normal 98-107 [facility] Comment on above: Performed By: #### C MP ####[facility] Wscwophwze0428 [place] [address]Dr. Lizandro Hemphill CO2 [Moles/Vol] 26.5 mmol/L Normal 21.0-32.0 The [facility] Comment on above: Performed By: #### C MP ####[facility] Iowdgiblqn1847[address] [place], [place] [address]Dr. Lizandro Hemphill Creatinine [Mass/Vol] 0.99 mg/dL Normal 0.55-1.02 [facility] Comment on above: Performed By: #### C MP ####[facility] Ktoljzfvxm304186 [address] [place], [place] [address]Dr. Lizandro Hemphill EGFR-AF SOMALI >60 Normal >=60 [facility] Comment on above: Performed By: #### C MP ####[facility] Fegigmbnsq5[address] [place] [address]Dr. Lizandro Hemphill EGFR-NON AF SOMALI 57 mL/min/1.73m2 Critically low >=60 [facility] Comment on above: Performed By: #### C MP ####[facility] Eozwrovshy4235 [place] [address]Dr. Lizandro Hemphill Globulin (S) [Mass/Vol] 2.9 g/dL Normal [facility] Comment on above: Performed By: #### C MP ####[facility] Aienmdyfev4826 [place] [phone]. Lizandro Hemphill Glucose [Mass/Vol] 86 mg/dL Normal 74-106 [facility] Comment on above: Performed By: #### C MP ####[facility] Axomksrprw8953 [place] [address]Dr. Lizandro Hemphill Potassium [Moles/Vol] 4.0 mmol/L Normal 3.5-5.1 [facility] Comment on above: Performed By: #### C MP ####[facility] Qadkdxzrcv3868 [place] [address]Dr. Lizandro Hemphill Protein [Mass/Vol] 5.6 g/dL Critically low 6.4-8.2 [facility] Comment on above: Performed By: #### C MP ####[facility] Jbkcponvml9623[address] [place], [place] [address]Dr. Lizandro Hemphill Sodium [Moles/Vol] 133 mmol/L Critically low 136-145 [facility] Comment on above: Performed By: #### C MP ####[facility] Moxlaujhym45[address] [place], [place] [address]Dr. Lizandro Hemphill Urea nitrogen [Mass/Vol] 23.0 mg/dL Critically high 7.0-18.0 [facility] Comment on above: Performed By: #### C MP ####[facility] Qoxhwzbnzc769[address] [place], [place] [address]Dr. Lizandro Hemphill Urea nitrogen/Creatinin e [Mass ratio] 23.2 mg/mg Normal [facility] Comment on above: Performed By: #### C MP ####[facility] Vpjtmdntpg0277[address] [place], [place] [address]Dr. Lizandro Hemphill PROTIMEon 01-27-2022 INR Coag (PPP) [Relative time] 1.23 {INR} Normal [facility] Comment on above: Performed By: #### P T, PTT ####[facility] Ynrkhlbkxb740[address] [place], [place] [address]Dr. Lizandro Hemphill INR GUIDELINES SEE BELOW Normal [facility] Comment on above: Result Comment: GUEVARA RED INR: 2.0 - 3.0 CONDITIONS NOT LISTED BELOW 2.5 - 3.5 FOR PROSTHETIC HEART VALVE REPLACEMENT 2.5 - 3.5 RECURRENT THROMBOSIS Performed By: #### P T, PTT ####[facility] Fmbebhlyrp29028[address] [place], [place] [address]Dr. Lizandro Hemphill PT Coag (PPP) [Time] 13.1 s Critically high 9.0-11.6 [facility] Comment on above: Performed By: #### P T, PTT ####[facility] Otlvdepwhb4140[address] [place], [place] [address]Dr. Lizandro Hemphill PTTon 01-27-2022 aPTT Coag (Bld) [Time] 22.9 s Normal 22.3-36.2 [facility] Comment on above: Performed By: #### P T, PTT ####[facility] Yniddhmscr355[address] [place], [place] [address]Dr. Shanikaannie Hemphill CBC AUTO DIFFon 01-26-2022 BASO # 0.1 103/ul Normal 0.0-0.1 [facility] Comment on above: Performed By: #### C BC ####[facility] Rckibdkrwl9187[address] [place], [place] [address]Dr. Lizandro Hemphill Basophils/100 WBC (Bld) 0.4 % Normal 0.2-2.0 [facility] Comment on above: Performed By: #### C BC ####[facility] Xqkhamkbwn039[address] [place], [place] [address]Dr. Lizandro Hemphill EO # 0.0 103/ul Normal 0.0-0.7 [facility] Comment on above: Performed By: #### C BC ####[facility] Ngvbglznia944[address] [place], [place] [address]Dr. Lizandro Hemphill Eosinophils/100 WBC (Bld) 0.2 % Critically low 0.9-7.0 [facility] Comment on above: Performed By: #### C BC ####[facility] Cidnclklck679[address] [place], [place] [address]Dr. Lizandro Hemphill Erythrocyte distribution width (RBC) [Ratio] 16.7 % Critically high 11.0-15.0 [facility] Comment on above: Performed By: #### C BC ####[facility] Winoyupozp2327[address] [place], [place] [address]DrCiro Hemphill Hematocrit (Bld) [Volume fraction] 28.9 % Critically low 36.0-48.0 [facility] Comment on above: Performed By: #### C BC ####[facility] Aebyjzbmwm4[address] [place] [address]Dr. Lizandro Joby Hemoglobin (Bld) [Mass/Vol] 9.5 g/dL Critically low 12.0-16.0 [facility] Comment on above: Performed By: #### C BC ####[facility] Yvnkwbdxvy4135 [place] [address]DrCiro Vossannie Joby IG # 0.06 10e3/ul Critically high 0.00-0.03 [facility] Comment on above: Performed By: #### C BC ####[facility] Vzalzaxkgg3191 [place] [address]Dr. Lizandro Hemphill IG % 0.5 % Normal 0.0-0.5 [facility] Comment on above: Performed By: #### C BC ####[facility] Yktlldtqsl0944 [place] [address]Dr. Lizandro Hemphill LYMPH # 1.7 103/ul Normal 1.2-3.8 [facility] Comment on above: Performed By: #### C BC ####[facility] Sajlcqurze1537 [place] [address]Dr. Lizandro Hemphill Lymphocytes/100 WBC (Bld) 13.4 % Critically low 20.5-60.0 [facility] Comment on above: Performed By: #### C BC ####[facility] Toccwnhobw7943 [place] [address]Dr. Lizandro Hemphill MANUAL DIFF REQ NO Normal [facility] Comment on above: Performed By: #### C BC ####[facility] Lrxbresugr3623 [place] [phone]. Lizandro Hemphill MCH (RBC) [Entitic mass] 29.5 pg Normal 26.7-34.0 [facility] Comment on above: Performed By: #### C BC ####[facility] Xucgnspkdz7556 [place] [phone]. Lizandro Hemphill MCHC (RBC) [Mass/Vol] 32.9 g/dL Normal 29.9-35.2 [facility] Comment on above: Performed By: #### C BC ####[facility] Ildoktteqn2392 [place] [phone] Lizandro Hemphill MCV (RBC) [Entitic vol] 89.8 fL Normal 81.0-99.0 [facility] Comment on above: Performed By: #### C BC ####[facility] Hvhfodzpqm1346 [place] [phone] Lizandro Hemphill MONO # 1.3 103/ul Critically high 0.3-0.8 [facility] Comment on above: Performed By: #### C BC ####[facility] Sxyjfosfyp4644 [place] [address]Dr. Lizandro Joby Monocytes/100 WBC (Bld) 10.5 % Normal 1.7-12.0 [facility] Comment on above: Performed By: #### C BC ####[facility] Ukbejfkgte2035 [place] [address]Dr. Lizandro Hemphill NEUT # 9.4 103/ul Critically high 1.4-6.5 [facility] Comment on above: Performed By: #### C BC ####[facility] Bnjrfgqpcc[address] [place], [place] [id number]. Lizandro Joby Neutrophils/100 WBC (Bld) 75.0 % Normal 43.0-75.0 [facility] Comment on above: Performed By: #### C BC ####[facility] Ubzanmirse5983 [place] [phone]. Lizandro Joby Platelet mean volume (Bld) [Entitic vol] 10.4 fL Normal 9.5-13.5 [facility] Comment on above: Performed By: #### C BC ####[facility] Slqomgbwhc8948 [place] [phone]. Shanikaannie Joby PLT 211 103/ul Normal 150-450 [facility] Comment on above: Performed By: #### C BC ####[facility] Bjjtholpir8464 [place] [phone] Hemphill RBC 3.22 106/ul Critically low 4.20-5.40 [facility] Comment on above: Performed By: #### C BC ####[facility] Ufgmgjojru8885 [place] [phone]. Lizandro Hemphill WBC 12.5 103/ul Critically high 4.0-11.0 The [facility] Comment on above: Performed By: #### C BC ####[facility] Vhvnbcigax0904 [place] [phone]. Lizandro Hemphill BASO # 0.0 103/ul Normal 0.0-0.1 [facility] Comment on above: Performed By: #### C BC ####[facility] Uvzjmekxap6972 [place] [phone]. Lizandro Hemphill Basophils/100 WBC (Bld) 0.2 % Normal 0.2-2.0 [facility] Comment on above: Performed By: #### C BC ####[facility] Erlcumyola4987 [place] [address]Dr. Lizandro Hemphill EO # 0.0 103/ul Normal 0.0-0.7 [facility] Comment on above: Performed By: #### C BC ####[facility] Oecuxhdqbx2993 [place] [phone]. Lizandor Hemphill Eosinophils/100 WBC (Bld) 0.0 % Critically low 0.9-7.0 [facility] Comment on above: Performed By: #### C BC ####[facility] Reyktzjsla8597 [place] [phone]. Lizandro Hemphill Erythrocyte distribution width (RBC) [Ratio] 16.2 % Critically high 11.0-15.0 [facility] Comment on above: Performed By: #### C BC ####[facility] Fkscurqnjx9733 [place] [phone]. Lizandro Hemphill Hematocrit (Bld) [Volume fraction] 26.3 % Critically low 36.0-48.0 [facility] Comment on above: Performed By: #### C BC ####[facility] Jsirieibyw8[address] [place], [place] [id number]. Lizandro Hemphill Hemoglobin (Bld) [Mass/Vol] 8.9 g/dL Critically low 12.0-16.0 [facility] Comment on above: Performed By: #### C BC ####[facility] Myxvoawnnb5984 [place] [address]DrCiro Hemphill IG # 0.08 10e3/ul Critically high 0.00-0.03 [facility] Comment on above: Performed By: #### C BC ####[facility] Jjzbkohjod3734 [place] [address]DrCiro Hemphill IG % 0.8 % Critically high 0.0-0.5 [facility] Comment on above: Performed By: #### C BC ####[facility] Zrkmromtln4766 [place] [address]DrCiro Hemphill LYMPH # 0.9 103/ul Critically low 1.2-3.8 [facility] Comment on above: Performed By: #### C BC ####[facility] Llywngpnwt4108 [place] [address]DrCiro Hemphill Lymphocytes/100 WBC (Bld) 8.8 % Critically low 20.5-60.0 [facility] Comment on above: Performed By: #### C BC ####[facility] Qhkxzhjuwm6105 [place] [address]DrCiro Hemphill MANUAL DIFF REQ NO Normal [facility] Comment on above: Performed By: #### C BC ####[facility] Fwtsqtopqr1664 [place] [address]DrCiro Hemphill MCH (RBC) [Entitic mass] 30.1 pg Normal 26.7-34.0 [facility] Comment on above: Performed By: #### C BC ####[facility] Nmmqnzjzrh7196 [place] [address]DrCiro Hemphill MCHC (RBC) [Mass/Vol] 33.8 g/dL Normal 29.9-35.2 [facility] Comment on above: Performed By: #### C BC ####[facility] Acmjlcmalc2618 [place] [address]DrCiro Hemphill MCV (RBC) [Entitic vol] 88.9 fL Normal 81.0-99.0 [facility] Comment on above: Performed By: #### C BC ####[facility] Cbnmrsxrvc8573 [place] [address]DrCiro Hemphill MONO # 1.0 103/ul Critically high 0.3-0.8 [facility] Comment on above: Performed By: #### C BC ####[facility] Ocpzrickmv5182 [place] [address]DrCiro Hemphill Monocytes/100 WBC (Bld) 10.1 % Normal 1.7-12.0 [facility] Comment on above: Performed By: #### C BC ####[facility] Wvnuluwdsa59[address] [place], [place] [address]Dr. Lizandro Hemphill NEUT # 8.1 103/ul Critically high 1.4-6.5 [facility] Comment on above: Performed By: #### C BC ####[facility] Cjtsuawxqq3437[address] [place], [place] [address]Dr. Lizandro Hemphill Neutrophils/100 WBC (Bld) 80.1 % Critically high 43.0-75.0 [facility] Comment on above: Performed By: #### C BC ####[facility] Vdcbozmpne101[address] [place], [place] [address]DrCiro Hemphill Platelet mean volume (Bld) [Entitic vol] 10.5 fL Normal 9.5-13.5 [facility] Comment on above: Performed By: #### C BC ####[facility] Sgnuotvxya8651 [place] [phone]. iLzandro Hemphill PLT 189 103/ul Normal 150-450 [facility] Comment on above: Performed By: #### C BC ####[facility] Njwbvyyhgp16[address] [place], [place] [id number]. Lizandro Hemphill RBC 2.96 106/ul Critically low 4.20-5.40 [facility] Comment on above: Performed By: #### C BC ####[facility] Frbycvynau4734[address] [place], [place] [id number]. Lizandro Hemphill WBC 10.1 103/ul Normal 4.0-11.0 [facility] Comment on above: Performed By: #### C BC ####[facility] Jmhfgrphsa8740 [place] [address]Dr. Lizandro Hemphill PROF 14(COMP METB)on 022 Albumin [Mass/Vol] 2.6 g/dL Critically low 3.4-5.0 [facility] Comment on above: Performed By: #### C MP ####[facility] Obnqbzqimd9387 [place] [address]Dr. Lizandro Hemphill Albumin/Globulin [Mass ratio] 0.9 {ratio} Normal [facility] Comment on above: Performed By: #### C MP ####[facility] Crmkrzqkei676[address] [place], [place] [address]Dr. Lizandro Hemphill ALP [Catalytic activity/Vol] 62 U/L Normal 46-116 [facility] Comment on above: Performed By: #### C MP ####[facility] Uvvkgspspa8175[address] [place], [place] [address]Dr. Lizandro Hemphill ALT [Catalytic activity/Vol] 22 U/L Normal 14-59 [facility] Comment on above: Performed By: #### C MP ####[facility] Jhpasphfnr697[address] [place], [place] [address]Dr. Lizandro Hemphill Anion gap [Moles/Vol] 10.7 mmol/L Normal [facility] Comment on above: Performed By: #### C MP ####[facility] Nsuhygzwhc5929[address] [place], [place] [address]Dr. Lizandro Hemphill AST [Catalytic activity/Vol] 26 U/L Normal 15-37 [facility] Comment on above: Performed By: #### C MP ####[facility] Fxnwdpanuv1332[address] [place], [place] [address]Dr. Lizandro Hemphill Bilirubin [Mass/Vol] 0.2 mg/dL Normal 0.2-1.0 [facility] Comment on above: Performed By: #### C MP ####[facility] Uhjxcdovjt963186 [address] [place], [place] [address]Dr. Lizandro Hemphill Calcium [Mass/Vol] 7.6 mg/dL Critically low 8.5-10.1 [facility] Comment on above: Performed By: #### C MP ####[facility] Cazznwzpmi1132 [place] [address]Dr. Lizandro Hemphill Chloride [Moles/Vol] 109 mmol/L Critically high 98-107 [facility] Comment on above: Performed By: #### C MP ####[facility] Dbkxqmlnda3941 [place] [address]Dr. Shanikaannie Joby CO2 [Moles/Vol] 25.0 mmol/L Normal 21.0-32.0 [facility] Comment on above: Performed By: #### C MP ####[facility] Iezuspqpce01[address] [place], [place] [address]Dr. Lizandro Hemphill Creatinine [Mass/Vol] 0.75 mg/dL Normal 0.55-1.02 [facility] Comment on above: Performed By: #### C MP ####[facility] Nzvccygakv6545[address] [place], [place] [address]Dr. Shanikaannie Joby EGFR-AF SOMALI >60 Normal >=60 [facility] Comment on above: Performed By: #### C MP ####[facility] Ccsnwzuboz2857[address] [place], [place] [address]Dr. Shanikaannie Joby EGFR-NON AF SOMALI >60 Normal >=60 [facility] Comment on above: Performed By: #### C MP ####[facility] Aoqfrxvqrk316[address] [place], [place] [address]Dr. Lizandro Hemphill Globulin (S) [Mass/Vol] 2.8 g/dL Normal [facility] Comment on above: Performed By: #### C MP ####[facility] Larwmwvduu5190[address] [place], [place] [address]Dr. Lizandro Hemphill Glucose [Mass/Vol] 121 mg/dL Critically high 74-106 [facility] Comment on above: Performed By: #### C MP ####[facility] Vqfytebvix0727[address] [place], [place] [address]Dr. Lizandro Hemphill Potassium [Moles/Vol] 3.7 mmol/L Normal 3.5-5.1 [facility] Comment on above: Performed By: #### C MP ####[facility] Hcxjlfflxz6998 [place] [address]Dr. Lizandro Hemphill Protein [Mass/Vol] 5.4 g/dL Critically low 6.4-8.2 [facility] Comment on above: Performed By: #### C MP ####[facility] Bfhpumomxo3515[address] [place], [place] [address]Dr. Lizandro Hemphill Sodium [Moles/Vol] 141 mmol/L Normal 136-145 [facility] Comment on above: Performed By: #### C MP ####[facility] Zhgjzbxktn318[address] [place], [place] [address]Dr. Lizandro Hemphill Urea nitrogen [Mass/Vol] 18.0 mg/dL Normal 7.0-18.0 [facility] Comment on above: Performed By: #### C MP ####[facility] Rjarqlzmux275[address] [place], [place] [address]Dr. Lizandro Hemphill Urea nitrogen/Creatinin e [Mass ratio] 24.0 mg/mg Normal [facility] Comment on above: Performed By: #### C MP ####[facility] Iokbfrzsbx3209[address] [place], [place] [address]Dr. Lizandro Hemphill PROTIMEon 01-26-2022 INR Coag (PPP) [Relative time] 1.91 {INR} Normal [facility] Comment on above: Performed By: #### P TT, PT ####[facility] Yjghmawcbg26[address] [place], [place] [address]Dr. Lizandro Hemphill INR GUIDELINES SEE BELOW Normal [facility] Comment on above: Result Comment: GUEVARA RED INR: 2.0 - 3.0 CONDITIONS NOT LISTED BELOW 2.5 - 3.5 FOR PROSTHETIC HEART VALVE REPLACEMENT 2.5 - 3.5 RECURRENT THROMBOSIS Performed By: #### P TT, PT ####[facility] Rajqgyeztm1828[address] [place], [place] [address]Dr. Lizandro Hemphill PT Coag (PPP) [Time] 19.8 s Critically high 9.0-11.6 [facility] Comment on above: Performed By: #### P TT, PT ####[facility] Fqlwrjcgpq2067 [place] [address]Dr. Lizandro Hemphill PTTon 01-26-2022 aPTT Coag (Bld) [Time] 27.9 s Normal 22.3-36.2 [facility] Comment on above: Performed By: #### P TT, PT ####[facility] Zntewqslri1434[address] [place], [place] [address]Dr. Lizandro Hemphill AMYLASEon 01-25-2022 Amylase [Catalytic activity/Vol] 82 U/L Normal 25-115 [facility] Comment on above: Performed By: #### A MY, LIPA, BNP, HSTROPN, CMP ####[facility] Snxdjhdrcs020[address] [place], [place] [address]Dr. Lizandro Hemphill BNPon 01-25-2022 Natriuretic peptide B (Bld) [Mass/Vol] 152.0 pg/mL Normal <=900.0 [facility] Comment on above: Performed By: #### A MY, LIPA, BNP, HSTROPN, CMP ####[facility] Kzjkercupq964[address] [place], [place] [address]Dr. Lizandro Hemphill CBC AUTO DIFFon 01-25-2022 BASO # 0.0 103/ul Normal 0.0-0.1 [facility] Comment on above: Performed By: #### C BC ####[facility] Sateuvkuwt1707[address] [place], [place] [address]Dr. Lizandro Hemphill Basophils/100 WBC (Bld) 0.3 % Normal 0.2-2.0 [facility] Comment on above: Performed By: #### C BC ####[facility] Gertxjbbed6444[address] [place], [place] [address]Dr. Lizandro Hemphill EO # 0.0 103/ul Normal 0.0-0.7 [facility] Comment on above: Performed By: #### C BC ####[facility] Ypwrfrkmsa1811[address] [place], [place] [address]Dr. Lizandro Hemphill Eosinophils/100 WBC (Bld) 0.0 % Critically low 0.9-7.0 [facility] Comment on above: Performed By: #### C BC ####[facility] Lmfnhlylvs3381 [place] [address]Dr. Lizandro Hemphill Erythrocyte distribution width (RBC) [Ratio] 17.6 % Critically high 11.0-15.0 [facility] Comment on above: Performed By: #### C BC ####[facility] Qogactqcns9265 [place] [address]Dr. Lizandro Hemphill Hematocrit (Bld) [Volume fraction] 16.8 % Critically low 36.0-48.0 [facility] Comment on above: Performed By: #### C BC ####[facility] Uzenqohcwe253[address] [place], [place] [address]Dr. Lizandro Hemphill Hemoglobin (Bld) [Mass/Vol] 5.7 g/dL Critically low 12.0-16.0 [facility] Comment on above: Performed By: #### C BC ####[facility] Wklavutiau9610[address] [place], [place] [address]Dr. Lizandro Joby IG # 0.11 10e3/ul Critically high 0.00-0.03 [facility] Comment on above: Performed By: #### C BC ####[facility] Juebofztim640[address] [place], [place] [address]Dr. Lizandro Joby IG % 0.9 % Critically high 0.0-0.5 [facility] Comment on above: Performed By: #### C BC ####[facility] Hqgaodmhqd49[address] [place], [place] [address]Dr. Lizandro Hemphill LYMPH # 0.7 103/ul Critically low 1.2-3.8 [facility] Comment on above: Performed By: #### C BC ####[facility] Ksxchuswfq[address] [place], [place] [address]Dr. Lizandro Joby Lymphocytes/100 WBC (Bld) 5.7 % Critically low 20.5-60.0 [facility] Comment on above: Performed By: #### C BC ####[facility] Wepbuzdqbu234[address] [place], [place] [address]Dr. Shanikaannie Hemphill MANUAL DIFF REQ NO Normal [facility] Comment on above: Performed By: #### C BC ####[facility] Qjkkaewtyr3500 [place] [id number]. Lizandro Joby MCH (RBC) [Entitic mass] 29.5 pg Normal 26.7-34.0 [facility] Comment on above: Performed By: #### C BC ####[facility] Jjlqohbsac2611 [place] [id number]. Lizandro Joby MCHC (RBC) [Mass/Vol] 33.9 g/dL Normal 29.9-35.2 [facility] Comment on above: Performed By: #### C BC ####[facility] Zjfvakwkpd9900 [place] [address]Dr. Shanikaannie Hemphill MCV (RBC) [Entitic vol] 87.0 fL Normal 81.0-99.0 [facility] Comment on above: Performed By: #### C BC ####[facility] Qfaqainbna215[address] [place], [place] [address]Dr. Lizandro Hemphill MONO # 0.1 103/ul Critically low 0.3-0.8 [facility] Comment on above: Performed By: #### C BC ####[facility] [id number] [place], [place] [address]Dr. Lizandro Hemphill Monocytes/100 WBC (Bld) 0.9 % Critically low 1.7-12.0 [facility] Comment on above: Performed By: #### C BC ####[facility] [id number] [place], [place] [address]Dr. Lizandro Hemphill NEUT # 10.7 103/ul Critically high 1.4-6.5 The [facility] Comment on above: Performed By: #### C BC ####[facility] Nvtpvmegqu[address] [place], [place] [address]Dr. Lizandro Hemphill Neutrophils/100 WBC (Bld) 92.2 % Critically high 43.0-75.0 [facility] Comment on above: Performed By: #### C BC ####[facility] Mkyltrhehe[address] [place], [place] [address]Dr. Lizandro Hemphill Platelet mean volume (Bld) [Entitic vol] 10.7 fL Normal 9.5-13.5 [facility] Comment on above: Performed By: #### C BC ####[facility] Mhgurynclh9136 [place] [id number]. Lizandro Hemphill PLT 217 103/ul Normal 150-450 [facility] Comment on above: Performed By: #### C BC ####[facility] Haqgvwyiaa3475 [place] [id number]. Lizandro Hemphill RBC 1.93 106/ul Critically low 4.20-5.40 [facility] Comment on above: Performed By: #### C BC ####[facility] Fkdzwrlyrx5623 [place] [id number]. Lizandro Hemphill WBC 11.6 103/ul Critically high 4.0-11.0 The [facility] Comment on above: Performed By: #### C BC ####[facility] Jayholbske[address] [place], [place] [id number]. Lizandro Hemphill BASO # 0.1 103/ul Normal 0.0-0.1 [facility] Comment on above: Performed By: #### C BC ####[facility] Xpwcibubej9490 [place] [id number]. Lizandro Hemphill Basophils/100 WBC (Bld) 0.6 % Normal 0.2-2.0 [facility] Comment on above: Performed By: #### C BC ####[facility] Hbudzgokah6660 [place] [id number]. Lizandro Hemphill EO # 0.0 103/ul Normal 0.0-0.7 [facility] Comment on above: Performed By: #### C BC ####[facility] Qhzolinykf[address] [place], [place] [id number]. Lizandro Hemphill Eosinophils/100 WBC (Bld) 0.3 % Critically low 0.9-7.0 [facility] Comment on above: Performed By: #### C BC ####[facility] Wknmdrbfbk3[address] [place], [place] [id number]. Lizandro Hemphill Erythrocyte distribution width (RBC) [Ratio] 17.4 % Critically high 11.0-15.0 [facility] Comment on above: Performed By: #### C BC ####[facility] Jcqmqntdwt4036 [place] [address]Dr. Lizandro Hemphill Hematocrit (Bld) [Volume fraction] 17.1 % Critically low 36.0-48.0 [facility] Comment on above: Performed By: #### C BC ####[facility] Teqadheqjv7477 [place] [address]Dr. Lizandro Hemhpill Hemoglobin (Bld) [Mass/Vol] 5.7 g/dL Critically low 12.0-16.0 [facility] Comment on above: Performed By: #### C BC ####[facility] Ljtmabcpkb2917 [place] [address]Dr. Lizandro Hemphill IG # 0.10 10e3/ul Critically high 0.00-0.03 [facility] Comment on above: Performed By: #### C BC ####[facility] Xcxaelkrdv[address] [place], [place] [address]Dr. Lizandro Hepmhill IG % 0.9 % Critically high 0.0-0.5 [facility] Comment on above: Performed By: #### C BC ####[facility] Viuuolugjj[address] [place], [place] [address]Dr. Lizandro Hemphill LYMPH # 1.6 103/ul Normal 1.2-3.8 [facility] Comment on above: Performed By: #### C BC ####[facility] Cawvvkmzeb[address] [place], [place] [address]DrCiro Lizandro Hemphill Lymphocytes/100 WBC (Bld) 14.4 % Critically low 20.5-60.0 [facility] Comment on above: Performed By: #### C BC ####[facility] Wvpqkdjtfb0759 [place] [address]Dr. Lizandro Hemphill MANUAL DIFF REQ NO Normal [facility] Comment on above: Performed By: #### C BC ####[facility] Tyetjvoawh0555 [place] [address]Dr. Lizandro Hemphill MCH (RBC) [Entitic mass] 29.2 pg Normal 26.7-34.0 [facility] Comment on above: Performed By: #### C BC ####[facility] Csphowdngl6189 [place] [id number]. Lizandro Joby MCHC (RBC) [Mass/Vol] 33.3 g/dL Normal 29.9-35.2 [facility] Comment on above: Performed By: #### C BC ####[facility] Hyoqxkanrb2338 [place] [id number] Lizandro Joby MCV (RBC) [Entitic vol] 87.7 fL Normal 81.0-99.0 [facility] Comment on above: Performed By: #### C BC ####[facility] Tedmqltzom4545 [place] [id number]. Lizandro Hemphill MONO # 0.9 103/ul Critically high 0.3-0.8 [facility] Comment on above: Performed By: #### C BC ####[facility] Cctwnxejmq4497 [place] [address]Dr. Lizandro Hemphill Monocytes/100 WBC (Bld) 8.1 % Normal 1.7-12.0 [facility] Comment on above: Performed By: #### C BC ####[facility] Spdhaschgj60[address] [place], [place] [id number]. Shanikaannie Joby NEUT # 8.5 103/ul Critically high 1.4-6.5 [facility] Comment on above: Performed By: #### C BC ####[facility] Dnfxpsrxdg7885 [place] [phone]. Lizandro Hemphill Neutrophils/100 WBC (Bld) 75.7 % Critically high 43.0-75.0 [facility] Comment on above: Performed By: #### C BC ####[facility] Iddwoazenq2502 [place] [phone] Hemphill Platelet mean volume (Bld) [Entitic vol] 10.9 fL Normal 9.5-13.5 [facility] Comment on above: Performed By: #### C BC ####[facility] Kmwmowciep5826 [place] [id number] Hemphill PLT 232 103/ul Normal 150-450 [facility] Comment on above: Performed By: #### C BC ####[facility] Wqhcwdzfci2426 [place] [phone]. Lizandro Hemphill RBC 1.95 106/ul Critically low 4.20-5.40 [facility] Comment on above: Performed By: #### C BC ####[facility] Uwpixkvpzw4459 [place] [phone]. Lizandro Hemphill WBC 11.3 103/ul Critically high 4.0-11.0 The [facility] Comment on above: Performed By: #### C BC ####[facility] Wkctxkzrwy0461 [place] [address]Dr. Lizandro Hemphill CBC W MANUAL DIFFon 01-26-20 22 ANISOCYTOSIS SLIGHT Normal [facility] Comment on above: Performed By: #### C BCMAN ####[facility] Lpiqiksfyl0270 [place] [address]Dr. Lizandro Hemphill ATYPICAL LYMPH # Normal The [facility] Comment on above: Performed By: #### C BCMAN ####[facility] Wzccclenys[address] [place], [place] [address]Dr. Lizandro Hemphill ATYPICAL LYMPH % Normal The [facility] Comment on above: Performed By: #### C BCMAN ####[facility] Mwmwhsozpw[address] [place], [place] [address]Dr. Lizandro Hemphill BAND # 0.1 103/ul Normal 0.0-0.3 [facility] Comment on above: Performed By: #### C BCMAN ####[facility] Kvahwlbgyc1954 [place] [address]Dr. Lizandro Hemphill BAND % 1 % Normal 0-5 [facility] Comment on above: Performed By: #### C BCMAN ####[facility] Hvehviwgxq[address] [place], [place] [address]Dr. Lizandro Hemphill BASOM # 0.00 103/ul Normal 0.00-0.10 [facility] Comment on above: Performed By: #### C BCMAN ####[facility] Zfnxlumuuk9[address] [place], [place] [address]Dr. Lizandro Joby BASOM % 0.0 % Critically low 0.2-2.0 The [facility] Comment on above: Performed By: #### C BCMAN ####[facility] Hofydmlnlj8946 [place] [address]Dr. Lizandro Hemphill BLAST # Normal [facility] Comment on above: Performed By: #### C BCMAN ####[facility] Strxpemxcx5862 [place] [phone]. Lizandro Hemphill BLAST % Normal [facility] Comment on above: Performed By: #### C BCMAN ####[facility] Jipzutnxrr7776 [place] [address]Dr. Lizandro Hemphill CORRECTED WBC Normal 4.0-11.0 [facility] Comment on above: Performed By: #### C BCMARÍA ####[facility] Mykubgpapb[address] [place], [place] [address]Dr. Lizandro Hemphill EOS # 0.00 103/ul Normal 0.00-0.70 [facility] Comment on above: Performed By: #### C BCMAN ####[facility] Kbmqrrtztp[address] [place], [place] [address]Dr. Lizandro Hemphill EOS% 0.0 % Critically low 0.9-7.0 The [facility] Comment on above: Performed By: #### C BCMARÍA ####[facility] Bykfodmqdx[address] [place], [place] [address]Dr. Lizandro Hemphill HCT 28.0 % Critically low 36.0-48.0 [facility] Comment on above: Performed By: #### C BCMAN ####[facility] Egqgonklpa[address] [place], [place] [address]Dr. Lizandro Hemphill HGB 9.6 g/dl Critically low 12.0-16.0 The [facility] Comment on above: Performed By: #### C BCMAN ####[facility] Rlilzhbjqu9[address] [place], [place] [address]Dr. Lizandro Hemphill LYMPHM # 0.77 103/ul Critically low 1.20-3.80 [facility] Comment on above: Performed By: #### C BCMAN ####[facility] Wmirlstiuu7507 [place], [place] [address]Qq. Lizandro Hemphill LYMPHM% 8.0 % Critically low 20.5-60.0 The [facility] Comment on above: Performed By: #### C DERRELL ####[facility] Kzqwvqslle4443 [place] [phone]. Lizandro Hemphill MCH 30.3 pg Normal 26.7-34.0 [facility] Comment on above: Performed By: #### C DERRELL ####[facility] Eabkjgwwax0605 [place] [phone]. Lizandro Hemphill MCHC 34.3 g/dl Normal 29.9-35.2 [facility] Comment on above: Performed By: #### C DERRELL ####[facility] Zklwuqcvnj5430 [place] [phone]. Lizandro Hemphill MCV 88.3 fL Normal 81.0-99.0 [facility] Comment on above: Performed By: #### C DERRELL ####[facility] Yrgmmvpbue6515 [place] [phone]. Lizandro Hemphill METAMYELOCYTE # Normal [facility] Comment on above: Performed By: #### C DERRELL ####[facility] Cpzqlgotrc9296 [place] [phone]. Lizandro Hemphill METAMYELOCYTE % Normal [facility] Comment on above: Performed By: #### C DERRELL ####[facility] Vopwrikljw1076 [place] [phone]. Lizandro Hemphill MONOM# 0.10 103/ul Critically low 0.30-0.80 [facility] Comment on above: Performed By: #### C DERRELL ####[facility] Fliiadzbit4230 [place] [phone]. Lizandro Hemphill MONOM% 1.0 % Critically low 1.7-12.0 [facility] Comment on above: Performed By: #### C DERRELL ####[facility] Mamvnrvjyo1695 [place] [phone]. Lizandro Hemphill MPV 10.7 fL Normal 9.5-13.5 [facility] Comment on above: Performed By: #### C DERRELL ####[facility] Xqhcmkjoxe2643 [place], [place] [address]Do. Lizandro Hemphill MYELOCYTE # Normal [facility] Comment on above: Performed By: #### C DERRELL ####[facility] Hlsbtaxubk4109 [place], [place] [address]Nz. Lizandro Hemphill MYELOCYTE % Normal [facility] Comment on above: Performed By: #### C DERRELL ####[facility] Fpjtyopmks8506 [place] [phone]. Lizandro Hemphill NRBC Normal [facility] Comment on above: Performed By: #### C DERRELL ####[facility] Tyljhhgqeg4394 [place] [phone]. Lizandro Hemphill PLT 196 103/ul Normal 150-450 [facility] Comment on above: Performed By: #### C DERRELL ####[facility] Fsydlgllnj[address] [place], [place] [address]Dr. Lizandro Hemphill RBC 3.17 106/ul Critically low 4.20-5.40 [facility] Comment on above: Performed By: #### C DERRELL ####[facility] Amzgbftpyt7021 [place] [phone]. Lizandro Hemphill RDW 16.0 % Critically high 11.0-15.0 [facility] Comment on above: Performed By: #### C DERRELL ####[facility] Qknntloplo3890 [place] [phone]. Lizandro Hemphill SEG # 8.64 103/ul Critically high 1.40-6.50 The [facility] Comment on above: Performed By: #### C DERRELL ####[facility] Xmylgvlzpa9168 [place] [phone]. Lizandro Hemphill SEG % 90.0 % Critically high 43.0-75.0 [facility] Comment on above: Performed By: #### C DERRELL ####[facility] Uqfmtegksy2518 [place] [phone]. Lizandro Hemphill WBC 9.6 103/ul Normal 4.0-11.0 [facility] Comment on above: Performed By: #### C BCMAN ####[facility] Keocjbkxng9224 [place] [phone]. Lizandro Hemphill CT HEAD WO CONon 01-25-2022 CT HEAD WO CON Normal The [facility] CULTURE URINEon 01-25-2022 CULTURE URINE Culture Observations : NO GROWTH. Normal [facility] Comment on above: Performed By: #### U RCX ####[facility] Dullhhgkkc9870 [place] [id number]. Lizandro Hemphill Covid-19 PCR (CVDTBH)on SARS-CoV-2 (COVID-19) RNA VERITO+probe Ql (Unsp spec) Not detected Normal NOT DETECTED [facility] Comment on above: Result Comment: When diagnostic [...] for this test is supported by the [place] of Health and Human Service's declaration that [...] be used). Performed By: #### C VDTBH ####[facility] Hiwtdxuevx8024 [place], [place] [address]Es. Lizandro Hemphill FERRITINon 01-25-2022 Ferritin [Mass/Vol] 26.0 ng/mL Normal 8.0-252.0 [facility] Comment on above: Performed By: #### F ETIBC, FERR, B12FOL ####[facility] Hhekwnwnlw2776 [place] [id number]. Lizandro Hemphill IRON AND TIBCon 01-25-2022 % SATURATION 2.5 % Normal [facility] Comment on above: Performed By: #### F ETIBC, FERR, B12FOL ####[facility] Nzeohmxjdo2198 [place] [address]Dr. Lizandro Hemphill Iron [Mass/Vol] 9.0 ug/dL Critically low 50.0-170.0 [facility] Comment on above: Performed By: #### F ETIBC, FERR, B12FOL ####[facility] Zyzipvhehh2485 [place] [address]Dr. Lizandro Hemphill TIBC DIRECT 356.0 ug/dL Normal 250.0-450.0 [facility] Comment on above: Performed By: #### F ETIBC, FERR, B12FOL ####[facility] Uqmklbqnfb0655 [place] [address]Dr. Lizandro Hemphill LIPASEon 01-25-2022 Lipase [Catalytic activity/Vol] 129.0 U/L Normal 73.0-393.0 [facility] Comment on above: Performed By: #### A MY, LIPA, BNP, HSTROPN, CMP ####[facility] Rwesiwkvcd2663 [place] [address]Dr. Lizandro Hemphill PROF 14(COMP METB)on 022 Albumin [Mass/Vol] 3.1 g/dL Critically low 3.4-5.0 [facility] Comment on above: Performed By: #### A MY, LIPA, BNP, HSTROPN, CMP ####[facility] Usvethonhk1413 [place] [address]Dr. Lizandro Hemphill Albumin/Globulin [Mass ratio] 1.1 {ratio} Normal [facility] Comment on above: Performed By: #### A MY, LIPA, BNP, HSTROPN, CMP ####[facility] Cviccgjohh5239 [place] [address]Dr. Lizandro Hemphill ALP [Catalytic activity/Vol] 69 U/L Normal 46-116 [facility] Comment on above: Performed By: #### A MY, LIPA, BNP, HSTROPN, CMP ####[facility] Fydwahaxso7412 [place] [address]Dr. Lizandro Hemphill ALT [Catalytic activity/Vol] 24 U/L Normal 14-59 [facility] Comment on above: Performed By: #### A MY, LIPA, BNP, HSTROPN, CMP ####[facility] Eaxwboqdru0044 [place] [address]Dr. Lizandro Hemphill Anion gap [Moles/Vol] 15.6 mmol/L Normal [facility] Comment on above: Performed By: #### A MY, LIPA, BNP, HSTROPN, CMP ####[facility] Fetfkypdji6356 [place] [address]Dr. Lizandro Hemphill AST [Catalytic activity/Vol] 23 U/L Normal 15-37 [facility] Comment on above: Performed By: #### A MY, LIPA, BNP, HSTROPN, CMP ####[facility] Tcopbnxgls7590 [place] [address]Dr. Lizandro Hemphill Bilirubin [Mass/Vol] 0.2 mg/dL Normal 0.2-1.0 [facility] Comment on above: Performed By: #### A MY, LIPA, BNP, HSTROPN, CMP ####[facility] Skdmqruatp6697 [place] [address]Dr. Lizandro Hemphill Calcium [Mass/Vol] 9.2 mg/dL Normal 8.5-10.1 [facility] Comment on above: Performed By: #### A MY, LIPA, BNP, HSTROPN, CMP ####[facility] Tndufirwog1956 [place] [address]Dr. Lizandro Hemphill Chloride [Moles/Vol] 104 mmol/L Normal 98-107 [facility] Comment on above: Performed By: #### A MY, LIPA, BNP, HSTROPN, CMP ####[facility] Gsztouejxf0786 [place] [address]Dr. Lizandro Hemphill CO2 [Moles/Vol] 22.9 mmol/L Normal 21.0-32.0 The [facility] Comment on above: Performed By: #### A MY, LIPA, BNP, HSTROPN, CMP ####[facility] Ierwoyorpp4460 [place] [address]Dr. Lizandro Hemphill Creatinine [Mass/Vol] 1.09 mg/dL Critically high 0.55-1.02 [facility] Comment on above: Performed By: #### A MY, LIPA, BNP, HSTROPN, CMP ####[facility] Tdkguupror9652 [place] [address]Dr. Lizandro Hemphill EGFR-AF SOMALI >60 Normal >=60 The [facility] Comment on above: Performed By: #### A MY, LIPA, BNP, HSTROPN, CMP ####[facility] R[address]rjwqrvv[address] [place], [place] [address]Dr. Lizandro Hemphill EGFR-NON AF SOMALI 51 mL/min/1.73m2 Critically low >=60 [facility] Comment on above: Performed By: #### A MY, LIPA, BNP, HSTROPN, CMP ####[facility] Tuzmmkhkdp1903 [place] [address]Dr. Lizandro Hemphill Globulin (S) [Mass/Vol] 2.9 g/dL Normal [facility] Comment on above: Performed By: #### A MY, LIPA, BNP, HSTROPN, CMP ####[facility] Wliehsvkru6980 [place] [address]Dr. Lizandro Hemphill Glucose [Mass/Vol] 112 mg/dL Critically high 74-106 [facility] Comment on above: Performed By: #### A MY, LIPA, BNP, HSTROPN, CMP ####[facility] Cfypptoudh9741 [place] [address]Dr. Lizandro Hemphill Potassium [Moles/Vol] 3.5 mmol/L Normal 3.5-5.1 [facility] Comment on above: Performed By: #### A MY, LIPA, BNP, HSTROPN, CMP ####[facility] Jqwpqkuije7182 [place] [address]Dr. Lizandro Hemphill Protein [Mass/Vol] 6.0 g/dL Critically low 6.4-8.2 [facility] Comment on above: Performed By: #### A MY, LIPA, BNP, HSTROPN, CMP ####[facility] Bzmjgnggvv6696 [place] [address]Dr. Lizandro Hemphill Sodium [Moles/Vol] 139 mmol/L Normal 136-145 [facility] Comment on above: Performed By: #### A MY, LIPA, BNP, HSTROPN, CMP ####[facility] Rwcnqeergd5778 [place] [address]Dr. Lizandro Hemphill Urea nitrogen [Mass/Vol] 30.0 mg/dL Critically high 7.0-18.0 [facility] Comment on above: Performed By: #### A MY, LIPA, BNP, HSTROPN, CMP ####[facility] Nxvojjhivz3970 [place] [address]Dr. Lizandro Hemphill Urea nitrogen/Creatinin e [Mass ratio] 27.5 mg/mg Normal [facility] Comment on above: Performed By: #### A MY, LIPA, BNP, HSTROPN, CMP ####[facility] Ibsxardmpo9111 [place] [address]Dr. Lizandro Hemphill PROTIMEon 01-25-2022 INR Coag (PPP) [Relative time] 1.48 {INR} Normal [facility] Comment on above: Performed By: #### P TT, PT ####[facility] Btzhdpdkga0335 [place] [address]Dr. Lizandro Hemphill INR GUIDELINES SEE BELOW Normal [facility] Comment on above: Result Comment: GUEVARA RED INR: 2.0 - 3.0 CONDITIONS NOT LISTED BELOW 2.5 - 3.5 FOR PROSTHETIC HEART VALVE REPLACEMENT 2.5 - 3.5 RECURRENT THROMBOSIS Performed By: #### P TT, PT ####[facility] Wkoztmflwh[address] [place], [place] [address]Dr. Lizandro Hemphill PT Coag (PPP) [Time] 15.6 s Critically high 9.0-11.6 [facility] Comment on above: Performed By: #### P TT, PT ####[facility] Zjmiffwllb9274 [place] [address]Dr. Lizandro Hemphill PTTon 01-25-2022 aPTT Coag (Bld) [Time] 24.9 s Normal 22.3-36.2 [facility] Comment on above: Performed By: #### P TT, PT ####[facility] Sbajyqcdux6133 [place] [address]Dr. Lizandro Hemphill TROPONIN, HIGH SENSITIVITYon 01-25-2022 HSTROP 8.4 pg/mL Normal 4.0-51.3 [facility] Comment on above: Result Comment: CUT- OFF POINTS HAVE BEEN ESTABLISHED BASED ON THE FOURTH UNIVERSAL DEFINITIONS OF MYOCARDIALINFARCTION. THE UPPER REFERENCE LIMIT (URL) OF TROPONIN, DEFINED THE 99TH PERCENTILE OFcTnI DISTRIBUTION IN A REFERENCE POPULATION, HAS BEEN CONFIRMED THE DECISION THRESHOLDFOR [place] DIAGNOSIS. Performed By: #### A MY, LIPA, BNP, HSTROPN, CMP ####[facility] Ehqrawwexm[address] [place], [place] [address]Dr. Lizandro Hemphill TYPE AND SCREENon 01-25-2022 TYPE AND SCREEN Negative Normal [facility] Comment on above: Performed By: #### T NS ####[facility] Rgzmvqnwtn64[address] [place], [place] [address]Dr. Lizandro Hemphill VIT B12 AND FOLATEon 022 Cobalamin (Vitamin B12) [Mass/Vol] 394.0 pg/mL Normal 193.0-986.0 [facility] Comment on above: Performed By: #### F ETIBC, FERR, B12FOL ####[facility] Mbftmsnlif9779 [place] [address]Dr. Lizandro Hemphill FOLATE 18.00 ng/mL Normal 8.60-58.90 [facility] Comment on above: Performed By: #### F ETIBC, FERR, B12FOL ####[facility] Mbawsyitkz[address] [place], [place] [address]Dr. Lizandro Hemphill XR CHEST 1 Von 01-25-2022 XR CHEST 1 V Normal [facility] PROTIMEon 01-17-2022 INR Coag (PPP) [Relative time] {INR} Normal [facility] Comment on above: Performed By: #### P T ####[facility] Fzhjogxgze9490 [place], [place] [address]Wl. Lizandro Hemphill INR GUIDELINES SEE BELOW Normal [facility] Comment on above: Result Comment: GUEVARA RED INR: 2.0 - 3.0 CONDITIONS NOT LISTED BELOW 2.5 - 3.5 FOR PROSTHETIC HEART VALVE REPLACEMENT 2.5 - 3.5 RECURRENT THROMBOSIS Performed By: #### P T ####[facility] Xllvyxcxgq8692 [place] [id number] Hemphill PT Coag (PPP) [Time] 9.6 s Normal 9.0-11.6 [facility] Comment on above: Performed By: #### P T ####[facility] Wmawgvqcpa8980 [place] [id number] Hemphill Covid-19 PCR (CVDTBH)on 12-25 SARS-CoV-2 (COVID-19) RNA VERITO+probe Ql (Unsp spec) Not detected Normal NOT DETECTED [facility] Comment on above: Result Comment: This test is not yet approved or cleared by the [place] FDA. When there are no FDA-approved or cleared tests available, and other criteria are met, FDA can make tests available under an emergency access mechanism called an Emergency Use Authorization (EUA). The EUA for this test is supported by the [place] of Health and Human Service's (HHS's) declaration [...] with SARS-CoV-2. Performed By: #### C VDTBH ####[facility] Mfldrmwkly7295 [place] [id number] Hemphill PROTIMEon 09-13-2022 INR Coag (PPP) [Relative time] {INR} Normal [facility] Comment on above: Performed By: #### P T ####[facility] Jpjhwdgnrb1788 [place] [address]DrCiro Hemphill INR GUIDELINES SEE BELOW Normal [facility] Comment on above: Result Comment: GUEVARA RED INR: 2.0 - 3.0 CONDITIONS NOT LISTED BELOW 2.5 - 3.5 FOR PROSTHETIC HEART VALVE REPLACEMENT 2.5 - 3.5 RECURRENT THROMBOSIS Performed By: #### P T ####[facility] Bbchkfihqk2630 [place] [id number] Hemphill PT Coag (PPP) [Time] 9.5 s Normal 9.0-11.6 [facility] Comment on above: Performed By: #### P T ####[facility] Hgzuhpztar9311 [place] [address]DrCiro Hemphill Covid-19 PCR (CVDTB)on SARS-CoV-2 (COVID-19) RNA VERITO+probe Ql (Unsp spec) Not detected Normal NOT DETECTED [facility] Comment on above: Result Comment: This test is not yet approved or cleared by the [place] FDA. When there are no FDA-approved or cleared tests available, and other criteria are met, FDA can make tests available under an emergency access mechanism called an Emergency Use Authorization (EUA). The EUA for this test is supported by the [place] of Health and Human Service's (HHS's) declaration [...] with SARS-CoV-2. Performed By: #### C VDTBH ####[facility] Orxxacpdjx0459 [place] [address]DrCiro Bone Hemphill CBC AUTO DIFFon 10-31-2021 BASO # 0.1 103/ul Normal 0.0-0.1 [facility] Comment on above: Performed By: #### C BC ####[facility] Sdfltemaop7776 [place] [address]Dr. Lizandro Hemphill Basophils/100 WBC (Bld) 0.7 % Normal 0.2-2.0 [facility] Comment on above: Performed By: #### C BC ####[facility] Lykfuvjjlc4043 [place] [address]Dr. Lizandro Hemphill EO # 0.1 103/ul Normal 0.0-0.7 [facility] Comment on above: Performed By: #### C BC ####[facility] Ywjcmyqqex7396 [place] [address]Dr. Lizadnro Joby Eosinophils/100 WBC (Bld) 0.7 % Critically low 0.9-7.0 [facility] Comment on above: Performed By: #### C BC ####[facility] Mtqmnsrpxw[address] [place], [place] [address]Dr. Lizandro Hemphill Erythrocyte distribution width (RBC) [Ratio] 17.5 % Critically high 11.0-15.0 [facility] Comment on above: Performed By: #### C BC ####[facility] Pnlagcdhpv1275 [place] [address]Dr. Lizandro Hemphill Hematocrit (Bld) [Volume fraction] 39.6 % Normal 36.0-48.0 [facility] Comment on above: Performed By: #### C BC ####[facility] [id number] [place] [address]Dr. Lizandro Hemphill Hemoglobin (Bld) [Mass/Vol] 12.6 g/dL Normal 12.0-16.0 [facility] Comment on above: Performed By: #### C BC ####[facility] [id number] [place] [address]Dr. Lizandro Joby IG # 0.04 [id number] Critically high 0.00-0.[address] [facility] Comment on above: Performed By: #### C BC ####[facility] [address] [place] [id number]. Lizandro Hemphill IG % 0.4 % Normal 0.0-0.5 [facility] Comment on above: Performed By: #### C BC ####[facility] Ypcfhckrpx6959 [place], [place] [address]Gx. Lizandro Hemphill LYMPH # 1.8 103/ul Normal 1.2-3.8 [facility] Comment on above: Performed By: #### C BC ####[facility] Iwjefwpctj1423 [place] [id number]. Lizandro Hemphill Lymphocytes/100 WBC (Bld) 17.4 % Critically low 20.5-60.0 [facility] Comment on above: Performed By: #### C BC ####[facility] Exlnqrfqel2796 [place] [id number]. Lizandro Hemphill MANUAL DIFF REQ NO Normal [facility] Comment on above: Performed By: #### C BC ####[facility] Mfbypezgdb8101 [place] [id number]. Lizandro Hemphill MCH (RBC) [Entitic mass] 26.9 pg Normal 26.7-34.0 [facility] Comment on above: Performed By: #### C BC ####[facility] Sdbchjplzx8069 [place] [id number]. Lizandro Hemphill MCHC (RBC) [Mass/Vol] 31.8 g/dL Normal 29.9-35.2 [facility] Comment on above: Performed By: #### C BC ####[facility] Wdcmitydar6112 [place] [id number]. Lizandro Hemphill MCV (RBC) [Entitic vol] 84.6 fL Normal 81.0-99.0 [facility] Comment on above: Performed By: #### C BC ####[facility] Vvcegyptxy7486 [place] [id number]. Lizandro Joby MONO # 0.9 103/ul Critically high 0.3-0.8 [facility] Comment on above: Performed By: #### C BC ####[facility] Nfsyfmfrgk6582 [place] [id number]. Lizandro Hemphill Monocytes/100 WBC (Bld) 8.5 % Normal 1.7-12.0 [facility] Comment on above: Performed By: #### C BC ####[facility] Ubenjtmabf2769 [place] [id number]. Lizandro Hemphill NEUT # 7.5 103/ul Critically high 1.4-6.5 [facility] Comment on above: Performed By: #### C BC ####[facility] Bbyjkptitu4433 [place] [id number]. Lizandro Hemphill Neutrophils/100 WBC (Bld) 72.3 % Normal 43.0-75.0 [facility] Comment on above: Performed By: #### C BC ####[facility] Gxoapohyzx5851 [place] [address]Dr. Lizandro Hemphill Platelet mean volume (Bld) [Entitic vol] 10.6 fL Normal 9.5-13.5 [facility] Comment on above: Performed By: #### C BC ####[facility] Cnktegroyp3247 [place] [id number]. Lizandro Hemphill PLT 356 103/ul Normal 150-450 [facility] Comment on above: Performed By: #### C BC ####[facility] Pfnxlttzll1359 [place] [id number]. Lizandro Hemphill RBC 4.68 106/ul Normal 4.20-5.40 [facility] Comment on above: Performed By: #### C BC ####[facility] Qxgbnpjidx7404 [place] [id number]. Lizandro Hemphill WBC 10.4 103/ul Normal 4.0-11.0 [facility] Comment on above: Performed By: #### C BC ####[facility] Apkcxkfasx6[address] [place] [address]. Liz[address] Hem[address] CT HEAD WO CONon 10-31-2021 CT HEAD WO CON Normal [facility] PROF CHEM 8 (BAS METB)on Anion gap [Moles/Vol] 13.0 mmol/L Normal [facility] Comment on above: Performed By: #### H STROPN, BMP ####[facility] Clcdhqjfan7200 [place] [address]Dr. Lizandro Hemphill Calcium [Mass/Vol] 9.4 mg/dL Normal 8.5-10.1 [facility] Comment on above: Performed By: #### H STROPN, BMP ####[facility] Ontzyimaar0981 [place] [address]Dr. Lizandro Hemphill Chloride [Moles/Vol] 104 mmol/L Normal 98-107 [facility] Comment on above: Performed By: #### H STROPN, BMP ####[facility] Tnyddhiyea5954 [place] [address]Dr. Lizandro Hemphill CO2 [Moles/Vol] 25.7 mmol/L Normal 21.0-32.0 The [facility] Comment on above: Performed By: #### H STROPN, BMP ####[facility] Iwhvexeuac7[address] [place], [place] [address]Dr. Lizandro Hemphill Creatinine [Mass/Vol] 0.82 mg/dL Normal 0.55-1.02 [facility] Comment on above: Performed By: #### H STROMERY, BMP ####[facility] Jjbwetrecl11[address] [place], [place] [address]Dr. Lizandro Hemphill EGFR-AF SOMALI >60 Normal >=60 The [facility] Comment on above: Performed By: #### H STROPN, BMP ####[facility] Tmgkjmbocd5229 [place] [address]Dr. Lizandro Hemphill EGFR-NON AF SOMALI >60 Normal >=60 [facility] Comment on above: Performed By: #### H STROPN, BMP ####[facility] Etslupheyk0537 [place] [address]Dr. Lizandro Hemphill Glucose [Mass/Vol] 105 mg/dL Normal 74-106 [facility] Comment on above: Performed By: #### H STROPN, BMP ####[facility] Zzixkpahod6472 [place] [address]Dr. Lizandro Hemphill Potassium [Moles/Vol] 3.7 mmol/L Normal 3.5-5.1 [facility] Comment on above: Performed By: #### H RICARDO, ELSA ####[facility] Ihwuqzpuys3899 [place] [address]Dr. Lizandro Hemphill Sodium [Moles/Vol] 139 mmol/L Normal 136-145 [facility] Comment on above: Performed By: #### H RICARDO, ELSA ####[facility] Qocsjycsey3729 [place] [address]Dr. Lizandro Hemphill Urea nitrogen [Mass/Vol] 15.0 mg/dL Normal 7.0-18.0 [facility] Comment on above: Performed By: #### H RICARDO, ELSA ####[facility] Bekdaggaon4[address] [place], [place] [address]Dr. Lizandro Hemphill Urea nitrogen/Creatinin e [Mass ratio] 18.3 mg/mg Normal [facility] Comment on above: Performed By: #### H RICARDO, ELSA ####[facility] Kwfjlkjdlf420[address] [place], [place] [address]Dr. Lizandro Hemphill PROTIMEon 10-31-2021 INR Coag (PPP) [Relative time] 1.35 {INR} Normal [facility] Comment on above: Performed By: #### P T ####[facility] Ujipnbatcr45[address] [place], [place] [address]Dr. Lizandro Hemphill INR GUIDELINES SEE BELOW Normal [facility] Comment on above: Result Comment: GUEVARA RED INR: 2.0 - 3.0 CONDITIONS NOT LISTED BELOW 2.5 - 3.5 FOR PROSTHETIC HEART VALVE REPLACEMENT 2.5 - 3.5 RECURRENT THROMBOSIS Performed By: #### P T ####[facility] Rviykphxte3801[address] [place], [place] [address]Dr. Lizandro Hemphill PT Coag (PPP) [Time] 14.3 s Critically high 9.0-11.6 [facility] Comment on above: Performed By: #### P T ####[facility] Jdbaiovwne9424[address] [place], [place] [address]Dr. Lizandro Hemphill TROPONIN, HIGH SENSITIVITYon 10-31-2021 HSTROP 4.9 pg/mL Normal 4.0-51.3 [facility] Comment on above: Result Comment: CUT- OFF POINTS HAVE BEEN ESTABLISHED BASED ON THE FOURTH UNIVERSAL DEFINITIONS OF MYOCARDIALINFARCTION. THE UPPER REFERENCE LIMIT (URL) OF TROPONIN, DEFINED THE 99TH PERCENTILE OFcTnI DISTRIBUTION IN A REFERENCE POPULATION, HAS BEEN CONFIRMED THE DECISION THRESHOLDFOR W[place] DIAGNOSIS. Performed By: #### H STROPN, BMP ####[facility] Dnnkxxoeag4869[address] [place], [place] [address]Dr. Lizandro Hemphill CBC AUTO DIFFon 10-30-2021 BASO # 0.1 103/ul Normal 0.0-0.1 [facility] Comment on above: Performed By: #### C BC ####[facility] Luxvkusowh940[address] [place], [place] [address]DrCiro Hemphill Basophils/100 WBC (Bld) 0.8 % Normal 0.2-2.0 [facility] Comment on above: Performed By: #### C BC ####[facility] Timbvbybzr7449[address] [place], [place] [address]DrCiro Hemphill EO # 0.0 103/ul Normal 0.0-0.7 [facility] Comment on above: Performed By: #### C BC ####[facility] Seyzixovbg548[address] [place], [place] [address]Dr. Lizandro Hemphill Eosinophils/100 WBC (Bld) 0.4 % Critically low 0.9-7.0 [facility] Comment on above: Performed By: #### C BC ####[facility] Avmzuxjtbk235[address] [place], [place] [address]Dr. Lizandro Hemphill Erythrocyte distribution width (RBC) [Ratio] 17.4 % Critically high 11.0-15.0 [facility] Comment on above: Performed By: #### C BC ####[facility] Chwxsobjnx3222[address] [place], [place] [address]DrCiro Hemphill Hematocrit (Bld) [Volume fraction] 39.7 % Normal 36.0-48.0 [facility] Comment on above: Performed By: #### C BC ####[facility] Umgycdtxxt6825[address] [place], [place] [address]DrCiro Hemphill Hemoglobin (Bld) [Mass/Vol] 12.7 g/dL Normal 12.0-16.0 [facility] Comment on above: Performed By: #### C BC ####[facility] Ndshjwruyn2727 [place] [address]DrCiro Hemphill IG # 0.06 10e3/ul Critically high 0.00-0.03 [facility] Comment on above: Performed By: #### C BC ####[facility] Oihqwdwzln4381 [place] [address]DrCiro Hemphill IG % 0.5 % Normal 0.0-0.5 [facility] Comment on above: Performed By: #### C BC ####[facility] Pwjldbjdki75[address] [place], [place] [address]DrCiro Hemphill LYMPH # 1.8 103/ul Normal 1.2-3.8 [facility] Comment on above: Performed By: #### C BC ####[facility] Wgeekgrcpi125[address] [place], [place] [address]DrCiro Hemphill Lymphocytes/100 WBC (Bld) 16.1 % Critically low 20.5-60.0 [facility] Comment on above: Performed By: #### C BC ####[facility] Aoggeedspq1189[address] [place], [place] [address]DrCiro Hemphill MANUAL DIFF REQ NO Normal [facility] Comment on above: Performed By: #### C BC ####[facility] Atzvnwertl0350[address] [place], [place] [address]DrCiro Hemphill MCH (RBC) [Entitic mass] 27.3 pg Normal 26.7-34.0 [facility] Comment on above: Performed By: #### C BC ####[facility] Arnmqtgsig756[address] [place], [place] [address]DrCiro Hemphill MCHC (RBC) [Mass/Vol] 32.0 g/dL Normal 29.9-35.2 [facility] Comment on above: Performed By: #### C BC ####[facility] Krpzwjuxhg5959[address] [place], [place] [address]DrCiro Hemphill MCV (RBC) [Entitic vol] 85.4 fL Normal 81.0-99.0 [facility] Comment on above: Performed By: #### C BC ####[facility] Tiiwsykesw675[address] [place], [place] [address]DrCiro Lizandro Hemphill MONO # 1.2 103/ul Critically high 0.3-0.8 [facility] Comment on above: Performed By: #### C BC ####[facility] Hezvlhgsfo5595[address] [place], [place] [address]DrCiro Lizandro Hemphill Monocytes/100 WBC (Bld) 10.9 % Normal 1.7-12.0 [facility] Comment on above: Performed By: #### C BC ####[facility] Arwnrxxunr3595[address] [place], [place] [address]DrCiro Lizandro Hemphill NEUT # 7.8 103/ul Critically high 1.4-6.5 [facility] Comment on above: Performed By: #### C BC ####[facility] Hkxzbwrqnv700[address] [place], [place] [address]Dr. Lizandro Joby Neutrophils/100 WBC (Bld) 71.3 % Normal 43.0-75.0 [facility] Comment on above: Performed By: #### C BC ####[facility] Bdsnnkgbkb8250[address] [place], [place] [address]DrCiro Lizandro Joby Platelet mean volume (Bld) [Entitic vol] 10.4 fL Normal 9.5-13.5 [facility] Comment on above: Performed By: #### C BC ####[facility] Jxccfcujbe2649[address] [place], [place] [address]Dr. Shanikaannie Joby PLT 324 103/ul Normal 150-450 [facility] Comment on above: Performed By: #### C BC ####[facility] Otpstcdnbz619[address] [place], [place] [address]DrCiro Vossannie Joby RBC 4.65 106/ul Normal 4.20-5.40 [facility] Comment on above: Performed By: #### C BC ####[facility] Smspwwzdok3955[address] [place], [place] [address]DrCiro Hemphill WBC 11.0 103/ul Normal 4.0-11.0 [facility] Comment on above: Performed By: #### C BC ####[facility] Qmgmfvpqvw8180[address] [place], [place] [address]Dr. Lizandro Hemphill PROF CHEM 8 (BAS METB)on Anion gap [Moles/Vol] 14.3 mmol/L Normal [facility] Comment on above: Performed By: #### B MP ####[facility] Sxtyiwdunl6218[address] [place], [place] [address]Dr. Lizandro Hemphill Calcium [Mass/Vol] 9.1 mg/dL Normal 8.5-10.1 [facility] Comment on above: Performed By: #### B MP ####[facility] Lxztjdwppg3560[address] [place], [place] [address]Dr. Lizandro Hemphill Chloride [Moles/Vol] 104 mmol/L Normal 98-107 [facility] Comment on above: Performed By: #### B MP ####[facility] Uwhvedgesw0811[address] [place], [place] [address]Dr. Lizandro Hemphill CO2 [Moles/Vol] 26.7 mmol/L Normal 21.0-32.0 The [facility] Comment on above: Performed By: #### B MP ####[facility] Lylrytwago33[address] [place], [place] [address]Dr. Lizandro Hemphill Creatinine [Mass/Vol] 0.91 mg/dL Normal 0.55-1.02 [facility] Comment on above: Performed By: #### B MP ####[facility] Dvakonyyqh4289[address] [place], [place] [address]Dr. Lizandro Hemphill EGFR-AF SOMALI >60 Normal >=60 The [facility] Comment on above: Performed By: #### B MP ####[facility] Qdwirsqvvg7360[address] [place], [place] [address]Dr. Lizandro Hemphill EGFR-NON AF SOMALI >60 Normal >=60 [facility] Comment on above: Performed By: #### B MP ####[facility] Bwcuvriyzp5007[address] [place], [place] [address]Dr. Lizandro Hemphill Glucose [Mass/Vol] 119 mg/dL Critically high 74-106 [facility] Comment on above: Performed By: #### B MP ####[facility] Jdxabnculb4743 [place] [address]Dr. Lizandro Hemphill Potassium [Moles/Vol] 4.0 mmol/L Normal 3.5-5.1 [facility] Comment on above: Performed By: #### B MP ####[facility] Khmidxheyc2497[address] [place], [place] [address]Dr. Lizandro Hemphill Sodium [Moles/Vol] 141 mmol/L Normal 136-145 [facility] Comment on above: Performed By: #### B MP ####[facility] Vqtkswatda701[address] [place], [place] [address]Dr. Lizandro Hemphill Urea nitrogen [Mass/Vol] 18.0 mg/dL Normal 7.0-18.0 [facility] Comment on above: Performed By: #### B MP ####[facility] Rykkvhfijn6927[address] [place], [place] [address]Dr. Lizandro Hemphill Urea nitrogen/Creatinin e [Mass ratio] 19.8 mg/mg Normal [facility] Comment on above: Performed By: #### B MP ####[facility] Jdcvrkoiqi995[address] [place], [place] [address]Dr. Lizandro Hemphill CULTURE URINEon 10-27-2021 CULTURE URINE Normal [facility] Comment on above: Performed By: #### U RCX ####[facility] Iswcdwvemr6840[address] [place], [place] [address]Dr. Lizandro Hemphill PROTIMEon 10-25-2021 INR Coag (PPP) [Relative time] 1.09 {INR} Normal [facility] Comment on above: Performed By: #### P T ####[facility] Iaawdgutsb869[address] [place], [place] [address]Dr. Lizadnro Hemphill INR GUIDELINES SEE BELOW Normal [facility] Comment on above: Result Comment: GUEVARA RED INR: 2.0 - 3.0 CONDITIONS NOT LISTED BELOW 2.5 - 3.5 FOR PROSTHETIC HEART VALVE REPLACEMENT 2.5 - 3.5 RECURRENT THROMBOSIS Performed By: #### P T ####[facility] Vscnwgqzti7927 [place] [address]Dr. Lizandro Hemphill PT Coag (PPP) [Time] 11.7 s Critically high 9.0-11.6 [facility] Comment on above: Performed By: #### P T ####[facility] Dliobegknr766[address] [place], [place] [address]Dr. Lizandro Hemphill CBC AUTO DIFFon 10-21-2021 BASO # 0.1 103/ul Normal 0.0-0.1 [facility] Comment on above: Performed By: #### C BC ####[facility] Jeoulpinst9525[address] [place], [place] [address]Dr. Lizandro Hemphlil Basophils/100 WBC (Bld) 1.2 % Normal 0.2-2.0 [facility] Comment on above: Performed By: #### C BC ####[facility] Xvnarowlup438[address] [place], [place] [address]Dr. Lizandro Hemphill EO # 0.2 103/ul Normal 0.0-0.7 [facility] Comment on above: Performed By: #### C BC ####[facility] Uxjuwauenr7640[address] [place], [place] [address]Dr. Lizandro Hemphill Eosinophils/100 WBC (Bld) 4.5 % Normal 0.9-7.0 [facility] Comment on above: Performed By: #### C BC ####[facility] Ingqsonwvl71968[address] [place], [place] [address]Dr. Lizandro Hemphill Erythrocyte distribution width (RBC) [Ratio] 17.0 % Critically high 11.0-15.0 [facility] Comment on above: Performed By: #### C BC ####[facility] Msoxfpizdw786[address] [place], [place] [address]Dr. Lizandro Hemphill Hematocrit (Bld) [Volume fraction] 34.8 % Critically low 36.0-48.0 [facility] Comment on above: Performed By: #### C BC ####[facility] Zfdhjbmegr44[address] [place], [place] [address]Dr. Lizandro Hemphill Hemoglobin (Bld) [Mass/Vol] 11.3 g/dL Critically low 12.0-16.0 [facility] Comment on above: Performed By: #### C BC ####[facility] Llfamorzea5513 [place] [address]Dr. Lizandro Hemphill IG # 0.01 10e3/ul Normal 0.00-0.03 [facility] Comment on above: Performed By: #### C BC ####[facility] Ojmpxjmzkv2820 [place] [address]Dr. Lizandro Hemphill IG % 0.2 % Normal 0.0-0.5 [facility] Comment on above: Performed By: #### C BC ####[facility] Ziqfanqdft6249 [place] [address]Dr. Lizandro Hemphill LYMPH # 1.6 103/ul Normal 1.2-3.8 [facility] Comment on above: Performed By: #### C BC ####[facility] Yoknsersxy1968 [place] [address]Dr. Lizandro Hemphill Lymphocytes/100 WBC (Bld) 33.1 % Normal 20.5-60.0 [facility] Comment on above: Performed By: #### C BC ####[facility] Rlkbgyvrlw9919 [place] [address]Dr. Lizandro Hemphill MANUAL DIFF REQ NO Normal [facility] Comment on above: Performed By: #### C BC ####[facility] Mahgxnicxc4649 [place] [address]Dr. Lizandro Hemphill MCH (RBC) [Entitic mass] 28.0 pg Normal 26.7-34.0 [facility] Comment on above: Performed By: #### C BC ####[facility] Vofooevudt3847 [place] [address]Dr. Lizandro Hemphill MCHC (RBC) [Mass/Vol] 32.5 g/dL Normal 29.9-35.2 [facility] Comment on above: Performed By: #### C BC ####[facility] Acpmjhfeeb8867 [place] [address]Dr. Lizandro Hemphill MCV (RBC) [Entitic vol] 86.4 fL Normal 81.0-99.0 [facility] Comment on above: Performed By: #### C BC ####[facility] Xlxtclofok9072 [place] [id number]. Lizandro Hemphill MONO # 0.7 103/ul Normal 0.3-0.8 [facility] Comment on above: Performed By: #### C BC ####[facility] Rvndqzzese9069 [place] [id number]. Lizandro Hemphill Monocytes/100 WBC (Bld) 14.3 % Critically high 1.7-12.0 [facility] Comment on above: Performed By: #### C BC ####[facility] Jxnwehnugf0558 [place] [id number]. Lizandro Hemphill NEUT # 2.3 103/ul Normal 1.4-6.5 [facility] Comment on above: Performed By: #### C BC ####[facility] Jjvojhoenp3525 [place] [address]Dr. Lizandro Hemphill Neutrophils/100 WBC (Bld) 46.7 % Normal 43.0-75.0 [facility] Comment on above: Performed By: #### C BC ####[facility] Haxomwwujr1778 [place] [phone]. Lizandro Hemphill Platelet mean volume (Bld) [Entitic vol] 10.9 fL Normal 9.5-13.5 [facility] Comment on above: Performed By: #### C BC ####[facility] Itgeillpds6076 [place] [phone]. Lizandro Hemphill PLT 213 103/ul Normal 150-450 [facility] Comment on above: Performed By: #### C BC ####[facility] Vfvixjlzhb6671 [place] [phone]. Lizandro Hemphill RBC 4.03 106/ul Critically low 4.20-5.40 [facility] Comment on above: Performed By: #### C BC ####[facility] Affetkttag1538 [place] [phone]. Lizandro Hemphill WBC 4.9 103/ul Normal 4.0-11.0 [facility] Comment on above: Performed By: #### C BC ####[facility] Aocwsgflvc7424 [place] [phone]. Lizandro Joby CRPon 10-21-2021 CRP [Mass/Vol] mg/L Normal <=1.0 [facility] [place] Comment on above: Performed By: #### C RP, CMP ####[facility] Bpgryvicgz0462 [place] [phone]. Lizandro Joby Covid-19 PCR (CVDTB)on 09-24 SARS-CoV-2 (COVID-19) RNA VERITO+probe Ql (Unsp spec) Not detected Normal NOT DETECTED [facility] Comment on above: Result Comment: This test is not yet approved or cleared by the [place] FDA. When there are no FDA-approved or cleared tests available, and other criteria are met, FDA can make tests available under an emergency access mechanism called an Emergency Use Authorization (EUA). The EUA for this test is supported by the [place] of Health and Human Service's (HHS's) declaration [...] with SARS-CoV-2. Performed By: #### C VDTBH ####[facility] Traphqlczv4529 [place] [phone]. Lizandro Hemphill PROF 14(COMP METB)on 022 Albumin [Mass/Vol] 2.7 g/dL Critically low 3.4-5.0 [facility] Comment on above: Performed By: #### C RP, CMP ####[facility] Ipqecgsfbd4236 [place] [phone]. Lizandro Hemphill Albumin/Globulin [Mass ratio] 0.8 {ratio} Normal [facility] Comment on above: Performed By: #### C RP, CMP ####[facility] Hhocuqxdaw6202 [place] [phone]. Lizandro Hemphill ALP [Catalytic activity/Vol] 86 U/L Normal 46-116 [facility] Comment on above: Performed By: #### C RP, CMP ####[facility] Fqbgwnwpsi6446 [place] [phone]. Lizandro Hemphill ALT [Catalytic activity/Vol] 23 U/L Normal 14-59 [facility] Comment on above: Performed By: #### C RP, CMP ####[facility] Lfgpsejcwt8384 [place] [phone]. Lizandro Hemphill Anion gap [Moles/Vol] 10.8 mmol/L Normal [facility] Comment on above: Performed By: #### C RP, CMP ####[facility] Mqfbootuih1388 [place] [phone]. Lizandro Hemphill AST [Catalytic activity/Vol] 25 U/L Normal 15-37 [facility] Comment on above: Performed By: #### C RP, CMP ####[facility] Lnyyhobzak1247 [place] [phone]. Lizandro Hemphill Bilirubin [Mass/Vol] 0.1 mg/dL Critically low 0.2-1.0 [facility] Comment on above: Performed By: #### C RP, CMP ####[facility] Yjzziaxmkt3536 [place] [phone]. Lizandro Hemphill Calcium [Mass/Vol] 8.0 mg/dL Critically low 8.5-10.1 [facility] Comment on above: Performed By: #### C RP, CMP ####[facility] Doixqxpzhk0696 [place] [phone]. Lizandro Joby Chloride [Moles/Vol] 107 mmol/L Normal 98-107 [facility] Comment on above: Performed By: #### C RP, CMP ####[facility] Kxjzpgajyi2507 [place] [phone]. Lizandro Hemphill CO2 [Moles/Vol] 26.7 mmol/L Normal 21.0-32.0 [facility] Comment on above: Performed By: #### C RP, CMP ####[facility] Fuvzuaptcu9888 [place] [phone]. Lizandro Hemphill Creatinine [Mass/Vol] 0.80 mg/dL Normal 0.55-1.02 [facility] Comment on above: Performed By: #### C RP, CMP ####[facility] Ffolhbmepr6563 [place] [phone]. Lizandro Hemphill EGFR-AF SOMALI >60 Normal >=60 [facility] Comment on above: Performed By: #### C RP, CMP ####[facility] Gcapieiynv0803 [place] [phone]. Lizandro Hemphill EGFR-NON AF SOMALI >60 Normal >=60 [facility] Comment on above: Performed By: #### C RP, CMP ####[facility] Fakcdnndmk6804 [place] [phone]. Lizandro Hemphill Globulin (S) [Mass/Vol] 3.2 g/dL Normal [facility] Comment on above: Performed By: #### C RP, CMP ####[facility] Oonhxhsepc1069 [place] [phone]. Lizandro Hemphill Glucose [Mass/Vol] 108 mg/dL Critically high 74-106 [facility] Comment on above: Performed By: #### C RP, CMP ####[facility] Fmzstupszo8310 [place] [phone]. Lizandro Hemphill Potassium [Moles/Vol] 3.5 mmol/L Normal 3.5-5.1 [facility] Comment on above: Performed By: #### C RP, CMP ####[facility] Ysqkvpkggf6079 [place] [phone]. Lizandro Hemphill Protein [Mass/Vol] 5.9 g/dL Critically low 6.4-8.2 [facility] Comment on above: Performed By: #### C RP, CMP ####[facility] Hwqicbqdkv4513 [place] [phone]. Lizandro Hemphill Sodium [Moles/Vol] 141 mmol/L Normal 136-145 [facility] Comment on above: Performed By: #### C RP, CMP ####[facility] Rsthjvlfzx2269 [place] [address]Dr. Lizandro Hemphill Urea nitrogen [Mass/Vol] 9.0 mg/dL Normal 7.0-18.0 [facility] Comment on above: Performed By: #### C RP, CMP ####[facility] Rtxbacrwra3067 [place] [address]Dr. Lizandro Hemphill Urea nitrogen/Creatinin e [Mass ratio] 11.2 mg/mg Normal [facility] Comment on above: Performed By: #### C RP, CMP ####[facility] Ftdpkxqzyi3992 [place] [address]Dr. Lizandro Hemphill PROTIMEon 10-21-2021 INR Coag (PPP) [Relative time] 2.13 {INR} Normal [facility] Comment on above: Performed By: #### P T ####[facility] Hrbj[address]hd[address] [place], [place] [address]Dr. Lizandro Hemphill INR GUIDELINES SEE BELOW Normal [facility] Comment on above: Result Comment: GUEVARA RED INR: 2.0 - 3.0 CONDITIONS NOT LISTED BELOW 2.5 - 3.5 FOR PROSTHETIC HEART VALVE REPLACEMENT 2.5 - 3.5 RECURRENT THROMBOSIS Performed By: #### P T ####[facility] Pmcgsetpgx7[address] [place], [place] [address]Dr. Lizandro Hemphill PT Coag (PPP) [Time] 21.9 s Critically high 9.0-11.6 [facility] Comment on above: Performed By: #### P T ####[facility] [id number] [place], [place] [address]Dr. Lizandro Hemphill CBC AUTO DIFFon 10-20-2021 BASO # 0.1 103/ul Normal 0.0-0.1 [facility] Comment on above: Performed By: #### C BC ####[facility] Asedexwqxx[address] [place] [address]Dr. Lizandro Hemphill Basophils/100 WBC (Bld) 1.3 % Normal 0.2-2.0 [facility] Comment on above: Performed By: #### C BC ####[facility] Euwjhfprrx5[address] [place] [address]Dr. Lizandro Hemphill EO # 0.2 103/ul Normal 0.0-0.7 [facility] Comment on above: Performed By: #### C BC ####[facility] Kdwcwjpjjd0534 [place] [address]Dr. Lizandro Hemphill Eosinophils/100 WBC (Bld) 3.3 % Normal 0.9-7.0 [facility] Comment on above: Performed By: #### C BC ####[facility] Xctutmzsdm8438 [place] [address]Dr. Lizandro Hemphill Erythrocyte distribution width (RBC) [Ratio] 17.1 % Critically high 11.0-15.0 [facility] Comment on above: Performed By: #### C BC ####[facility] Wrwwsoijgd[address] [place], [place] [address]Dr. Lizandro Hemphill Hematocrit (Bld) [Volume fraction] 35.4 % Critically low 36.0-48.0 [facility] Comment on above: Performed By: #### C BC ####[facility] Qnnshambgr44[address] [place], [place] [address]Dr. Lizandro Hemphill Hemoglobin (Bld) [Mass/Vol] 11.1 g/dL Critically low 12.0-16.0 [facility] Comment on above: Result Comment: Repe ated to verify result Performed By: #### C BC ####[facility] Qdzesggbms[address] [place], [place] [address]Dr. Lizandro Hemphill IG # 0.01 10e3/ul Normal 0.00-0.03 [facility] Comment on above: Performed By: #### C BC ####[facility] Tigerzjjwz9330[address] [place], [place] [address]Dr. Lizandro Hemphill IG % 0.2 % Normal 0.0-0.5 [facility] Comment on above: Performed By: #### C BC ####[facility] Yumfljnsii[address] [place], [place] [address]Dr. Lizandro Hemphill LYMPH # 1.1 103/ul Critically low 1.2-3.8 [facility] Comment on above: Performed By: #### C BC ####[facility] Bmibosckiz1722 [place] [address]Dr. Lizandro Hemphill Lymphocytes/100 WBC (Bld) 25.1 % Normal 20.5-60.0 [facility] Comment on above: Performed By: #### C BC ####[facility] Aivnkwnsfv9[address] [place] [address]Dr. Lizandro Hemphill MANUAL DIFF REQ NO Normal [facility] Comment on above: Performed By: #### C BC ####[facility] Fwycqzicjr5380 [place] [address]Dr. Lizandro Hemphill MCH (RBC) [Entitic mass] 27.3 pg Normal 26.7-34.0 [facility] Comment on above: Performed By: #### C BC ####[facility] Ntlcbpeshw[address] [place], [place] [address]Dr. Lizandro Hemphill MCHC (RBC) [Mass/Vol] 31.4 g/dL Normal 29.9-35.2 [facility] Comment on above: Performed By: #### C BC ####[facility] Aiykzdnoyz[address] [place], [place] [address]DrCiro Hemphill MCV (RBC) [Entitic vol] 87.0 fL Normal 81.0-99.0 [facility] Comment on above: Performed By: #### C BC ####[facility] Iyiyrmobpo0904 [place] [address]Dr. Lizandro Hemphill MONO # 0.7 103/ul Normal 0.3-0.8 [facility] Comment on above: Performed By: #### C BC ####[facility] Wmoxuqoaqs205[address] [place], [place] [address]Dr. Lizandro Hemphill Monocytes/100 WBC (Bld) 16.0 % Critically high 1.7-12.0 [facility] Comment on above: Performed By: #### C BC ####[facility] Jpgvmhrfai0350[address] [place], [place] [address]DrCiro Hemphill NEUT # 2.4 103/ul Normal 1.4-6.5 [facility] Comment on above: Performed By: #### C BC ####[facility] Fzlzurcpqe4771 [place] [address]Dr. Lizandro Hemphill Neutrophils/100 WBC (Bld) 54.1 % Normal 43.0-75.0 [facility] Comment on above: Performed By: #### C BC ####[facility] Rttlgohvnr5498 [place] [address]Dr. Lizandro Hemphill Platelet mean volume (Bld) [Entitic vol] 10.4 fL Normal 9.5-13.5 [facility] Comment on above: Performed By: #### C BC ####[facility] Zbkjfirpsi87[address] [place], [place] [address]Dr. Lizandro Hemphill PLT 202 103/ul Normal 150-450 [facility] Comment on above: Performed By: #### C BC ####[facility] Grjuhxgwip[address] [place], [place] [address]Dr. Lizandro Hemphill RBC 4.07 106/ul Critically low 4.20-5.40 [facility] Comment on above: Performed By: #### C BC ####[facility] Dgssdrxlga1964[address] [place], [place] [address]Dr. Lizandro Hemphill WBC 4.5 103/ul Normal 4.0-11.0 [facility] Comment on above: Performed By: #### C BC ####[facility] Npzenjloba96[address] [place], [place] [address]Dr. Lizandro Hemphill BASO # 0.1 103/ul Normal 0.0-0.1 [facility] Comment on above: Performed By: #### C BC ####[facility] Ghgrwqutaa6[address] [place], [place] [id number]. Lizandro Hemphill Basophils/100 WBC (Bld) 1.3 % Normal 0.2-2.0 [facility] Comment on above: Performed By: #### C BC ####[facility] Vecferqtwl030[address] [place], [place] [address]Dr. Lizandro Hemphill EO # 0.1 103/ul Normal 0.0-0.7 [facility] Comment on above: Performed By: #### C BC ####[facility] Uyklhyopeq5437 [place] [address]Dr. Lizandro Hemphill Eosinophils/100 WBC (Bld) 2.6 % Normal 0.9-7.0 [facility] Comment on above: Performed By: #### C BC ####[facility] Mkbxwvzycf5580 [place] [address]Dr. Lizandro Hemphill Erythrocyte distribution width (RBC) [Ratio] 17.1 % Critically high 11.0-15.0 [facility] Comment on above: Performed By: #### C BC ####[facility] Spdusvvqnw8855[address] [place], [place] [address]Dr. Lizandro Hemphill Hematocrit (Bld) [Volume fraction] 27.6 % Critically low 36.0-48.0 [facility] Comment on above: Performed By: #### C BC ####[facility] Fxxtwpfobx7516[address] [place], [place] [address]Dr. Lizandro Hemphill Hemoglobin (Bld) [Mass/Vol] 8.9 g/dL Critically low 12.0-16.0 [facility] Comment on above: Result Comment: joann carrizales notified Performed By: #### C BC ####[facility] Rrgrveshjx10[address] [place], [place] [address]Dr. Lizandro Hemphill IG # 0.01 10e3/ul Normal 0.00-0.03 [facility] Comment on above: Performed By: #### C BC ####[facility] Sdomofxlwo2575[address] [place], [place] [address]Dr. Lizandro Hemphill IG % 0.2 % Normal 0.0-0.5 [facility] Comment on above: Performed By: #### C BC ####[facility] Qxbgkvtcls[address] [place], [place] [address]Dr. Lizandro Hemphill LYMPH # 1.8 103/ul Normal 1.2-3.8 [facility] Comment on above: Performed By: #### C BC ####[facility] Wgxjpnckxb95[address] [place], [place] [address]Dr. Lizandro Hemphill Lymphocytes/100 WBC (Bld) 32.2 % Normal 20.5-60.0 [facility] Comment on above: Performed By: #### C BC ####[facility] Xbakyuvmgo8664 [place] [address]DrCiro Hemphill MANUAL DIFF REQ NO Normal [facility] Comment on above: Performed By: #### C BC ####[facility] Tzbfntcult7126 [place] [address]DrCiro Hemphill MCH (RBC) [Entitic mass] 27.8 pg Normal 26.7-34.0 [facility] Comment on above: Performed By: #### C BC ####[facility] Cvkfadtegu0050[address] [place], [place] [address]DrCiro Hemphill MCHC (RBC) [Mass/Vol] 32.2 g/dL Normal 29.9-35.2 [facility] Comment on above: Performed By: #### C BC ####[facility] Dekufmebnt04[address] [place], [place] [address]DrCiro Hemphill MCV (RBC) [Entitic vol] 86.3 fL Normal 81.0-99.0 [facility] Comment on above: Performed By: #### C BC ####[facility] Kixqxdagqo813[address] [place], [place] [address]DrCiro Hemphill MONO # 0.7 103/ul Normal 0.3-0.8 [facility] Comment on above: Performed By: #### C BC ####[facility] Kgbablkalk766[address] [place], [place] [address]DrCiro Hemphill Monocytes/100 WBC (Bld) 13.0 % Critically high 1.7-12.0 [facility] Comment on above: Performed By: #### C BC ####[facility] Vwslenshme0465[address] [place], [place] [address]DrCiro Hemphill NEUT # 2.8 103/ul Normal 1.4-6.5 [facility] Comment on above: Performed By: #### C BC ####[facility] Grwfpobtpn0917[address] [place], [place] [address]DrCiro Hemphill Neutrophils/100 WBC (Bld) 50.7 % Normal 43.0-75.0 [facility] Comment on above: Performed By: #### C BC ####[facility] Auenrotydz5092 [place] [address]Dr. Lizandro Hemphill Platelet mean volume (Bld) [Entitic vol] 11.0 fL Normal 9.5-13.5 [facility] Comment on above: Performed By: #### C BC ####[facility] Mcuuhcoqzn9397 [place] [address]Dr. Lizandro Hemphill PLT 241 103/ul Normal 150-450 [facility] Comment on above: Performed By: #### C BC ####[facility] Oryabsgxgf3505 [place] [address]Dr. Lizandro Hemphill RBC 3.20 106/ul Critically low 4.20-5.40 [facility] Comment on above: Performed By: #### C BC ####[facility] Sqtbcvpewb9159 [place] [address]Dr. Lizandro Hemphill WBC 5.5 103/ul Normal 4.0-11.0 [facility] Comment on above: Performed By: #### C BC ####[facility] Wsietuekus4303 [place] [address]DrCiro Hemphill CRPon 10-20-2021 CRP [Mass/Vol] mg/L Normal <=1.0 [facility] Comment on above: Performed By: #### C RP, CMP ####[facility] Pqnwfubffn1444[address] [place], [place] [address]DrCiro Hemphill PROF 14(COMP METB)on 022 Albumin [Mass/Vol] 2.5 g/dL Critically low 3.4-5.0 [facility] Comment on above: Performed By: #### C RP, CMP ####[facility] Pktgvspkaf712[address] [place], [place] [address]Dr. Lizandro Hemphill Albumin/Globulin [Mass ratio] 0.9 {ratio} Normal [facility] Comment on above: Performed By: #### C RP, CMP ####[facility] Hwsyasmbgn8395[address] [place], [place] [address]Dr. Lizandro Hemphill ALP [Catalytic activity/Vol] 85 U/L Normal 46-116 [facility] Comment on above: Performed By: #### C RP, CMP ####[facility] Figpwwmfti5721 [place] [address]Dr. Lizandro Hemphill ALT [Catalytic activity/Vol] 26 U/L Normal 14-59 [facility] Comment on above: Performed By: #### C RP, CMP ####[facility] Wafsedksyp44[address] [place], [place] [address]Dr. Lizandro Hemphill Anion gap [Moles/Vol] 10.8 mmol/L Normal [facility] Comment on above: Performed By: #### C RP, CMP ####[facility] Fyzdflkqqf201[address] [place], [place] [address]Dr. Lizandro Hemphill AST [Catalytic activity/Vol] 39 U/L Critically high 15-37 [facility] Comment on above: Performed By: #### C RP, CMP ####[facility] Avplkfdpgv73[address] [place], [place] [address]Dr. Lizandro Hemphill Bilirubin [Mass/Vol] 0.2 mg/dL Normal 0.2-1.0 [facility] Comment on above: Performed By: #### C RP, CMP ####[facility] Sfnrkbaewn499[address] [place], [place] [address]Dr. Lizandro Hemphill Calcium [Mass/Vol] 7.6 mg/dL Critically low 8.5-10.1 [facility] Comment on above: Performed By: #### C RP, CMP ####[facility] Omxpavxmqo7[address] [place], [place] [address]Dr. Lizandro Hemphill Chloride [Moles/Vol] 111 mmol/L Critically high 98-107 [facility] Comment on above: Performed By: #### C RP, CMP ####[facility] Tctmhpccun708[address] [place], [place] [address]Dr. Lizandro Hemphill CO2 [Moles/Vol] 24.6 mmol/L Normal 21.0-32.0 The [facility] Comment on above: Performed By: #### C RP, CMP ####[facility] Hpotapcxnx4726 [place] [address]Dr. Lizandro Hemphill Creatinine [Mass/Vol] 0.72 mg/dL Normal 0.55-1.02 [facility] Comment on above: Performed By: #### C RP, CMP ####[facility] Qzsrmdadxu3210 [place] [address]Dr. Lizandro Hemphill EGFR-AF SOMALI >60 Normal >=60 The [facility] Comment on above: Performed By: #### C RP, CMP ####[facility] Wgrbspgltt4179 [place] [address]Dr. Lizandro Hemphill EGFR-NON AF SOMALI >60 Normal >=60 [facility] Comment on above: Performed By: #### C RP, CMP ####[facility] Qjbseuhfdr2038[address] [place], [place] [address]Dr. Lizandro Hemphill Globulin (S) [Mass/Vol] 2.9 g/dL Normal [facility] Comment on above: Performed By: #### C RP, CMP ####[facility] Iaiqyxpzpg69[address] [place], [place] [address]Dr. Lizandro Hemphill Glucose [Mass/Vol] 99 mg/dL Normal 74-106 [facility] Comment on above: Performed By: #### C RP, CMP ####[facility] Cfkuvxylnc8607[address] [place], [place] [address]Dr. Lizandro Hemphill Potassium [Moles/Vol] 3.4 mmol/L Critically low 3.5-5.1 [facility] Comment on above: Performed By: #### C RP, CMP ####[facility] Ibtyizcfve2532[address] [place], [place] [address]Dr. Lizandro Hemphill Protein [Mass/Vol] 5.4 g/dL Critically low 6.4-8.2 [facility] Comment on above: Performed By: #### C RP, CMP ####[facility] Cmfoklirez023[address] [place], [place] [address]Dr. Lizandro eHmphill Sodium [Moles/Vol] 143 mmol/L Normal 136-145 [facility] Comment on above: Performed By: #### C RP, CMP ####[facility] Tykprgaauh2371 [place] [address]Dr. Lizandro Joby Urea nitrogen [Mass/Vol] 9.0 mg/dL Normal 7.0-18.0 [facility] Comment on above: Performed By: #### C RP, CMP ####[facility] Modqvfsonf9390 [place] [address]Dr. Lizandro Hemphill Urea nitrogen/Creatinin e [Mass ratio] 12.5 mg/mg Normal [facility] Comment on above: Performed By: #### C RP, CMP ####[facility] Ffvovoksbq9623 [place] [address]Dr. Lizandro Hemphill PROTIMEon 10-20-2021 INR Coag (PPP) [Relative time] 1.94 {INR} Normal [facility] Comment on above: Performed By: #### P T ####[facility] Xejciisefe7475[address] [place], [place] [address]Dr. Lizandro Hemphill INR GUIDELINES SEE BELOW Normal [facility] Comment on above: Result Comment: GUEVARA RED INR: 2.0 - 3.0 CONDITIONS NOT LISTED BELOW 2.5 - 3.5 FOR PROSTHETIC HEART VALVE REPLACEMENT 2.5 - 3.5 RECURRENT THROMBOSIS Performed By: #### P T ####[facility] Dcwsfdznre49[address] [place], [place] [address]Dr. Lizandro Hemphill PT Coag (PPP) [Time] 20.1 s Critically high 9.0-11.6 [facility] Comment on above: Performed By: #### P T ####[facility] Tizaxzjhfw60[address] [place], [place] [address]Dr. Lizandro Hemphill US NEEL DOP LEG BILon 022 US NEEL DOP LEG CROW Normal [facility] CBC AUTO DIFFon 10-19-2021 BASO # 0.1 103/ul Normal 0.0-0.1 [facility] Comment on above: Performed By: #### C BC ####[facility] Zunaylkqzt325[address] [place], [place] [address]Dr. Lizandro Hemphill Basophils/100 WBC (Bld) 1.4 % Normal 0.2-2.0 [facility] Comment on above: Performed By: #### C BC ####[facility] Eidscyybhy9137 [place] [address]Dr. Lizandro Hemphill EO # 0.2 103/ul Normal 0.0-0.7 [facility] Comment on above: Performed By: #### C BC ####[facility] Beivdphevb1126 [place] [address]Dr. Lizandro Hemphill Eosinophils/100 WBC (Bld) 3.3 % Normal 0.9-7.0 [facility] Comment on above: Performed By: #### C BC ####[facility] Dorccszhrl719[address] [place], [place] [address]Dr. Lizandro Hemphill Erythrocyte distribution width (RBC) [Ratio] 17.0 % Critically high 11.0-15.0 [facility] Comment on above: Performed By: #### C BC ####[facility] Ccsodmqors4733[address] [place], [place] [address]Dr. Lizandro Hemphill Hematocrit (Bld) [Volume fraction] 38.2 % Normal 36.0-48.0 [facility] Comment on above: Performed By: #### C BC ####[facility] Tpnclfbhsn6[address] [place], [place] [address]Dr. Lizandro Hemphill Hemoglobin (Bld) [Mass/Vol] 12.2 g/dL Normal 12.0-16.0 [facility] Comment on above: Performed By: #### C BC ####[facility] Gkzzvhjopm2835[address] [place], [place] [address]Dr. Lizandro Hemphill IG # 0.01 10e3/ul Normal 0.00-0.03 [facility] Comment on above: Performed By: #### C BC ####[facility] Mfrkggsetd574[address] [place], [place] [address]Dr. Lizandro Hemphill IG % 0.2 % Normal 0.0-0.5 [facility] Comment on above: Performed By: #### C BC ####[facility] Rlmmbhlmak26[address] [place], [place] [address]Dr. Lizandro Hemphill LYMPH # 1.7 103/ul Normal 1.2-3.8 [facility] Comment on above: Performed By: #### C BC ####[facility] Bxmwddyfvw3720 [place] [id number]. Lizandro Hemphill Lymphocytes/100 WBC (Bld) 32.2 % Normal 20.5-60.0 [facility] Comment on above: Performed By: #### C BC ####[facility] Ddrbsoekxb3951 [place] [id number]. Shanikaannie Hemphill MANUAL DIFF REQ NO Normal [facility] Comment on above: Performed By: #### C BC ####[facility] Kjjvfwhwpa2534 [place] [id number]. Lizandro oJby MCH (RBC) [Entitic mass] 27.4 pg Normal 26.7-34.0 [facility] Comment on above: Performed By: #### C BC ####[facility] Wvnjmdpsgt99[address] [place], [place] [id number]. Lizandro Joby MCHC (RBC) [Mass/Vol] 31.9 g/dL Normal 29.9-35.2 [facility] Comment on above: Performed By: #### C BC ####[facility] Mpcsumfper2245 [place] [id number]. Lizandro Joby MCV (RBC) [Entitic vol] 85.7 fL Normal 81.0-99.0 [facility] Comment on above: Performed By: #### C BC ####[facility] Tpndscmqup25[address] [place], [place] [address]Dr. Lizandro Joby MONO # 0.6 103/ul Normal 0.3-0.8 [facility] Comment on above: Performed By: #### C BC ####[facility] Vtahwczxfn88[address] [place], [place] [address]Dr. Shanikaannie Hemphill Monocytes/100 WBC (Bld) 12.5 % Critically high 1.7-12.0 [facility] Comment on above: Performed By: #### C BC ####[facility] Hravlcabpe39[address] [place], [place] [address]Dr. Lizandro Hemphill NEUT # 2.6 103/ul Normal 1.4-6.5 [facility] Comment on above: Performed By: #### C BC ####[facility] Whhmxfvjcv7783 [place] [address]Dr. Lizandro Hemphill Neutrophils/100 WBC (Bld) 50.4 % Normal 43.0-75.0 [facility] Comment on above: Performed By: #### C BC ####[facility] Piqfwtgxyo7322 [place] [id number]. Lizandro Hemphill Platelet mean volume (Bld) [Entitic vol] 10.4 fL Normal 9.5-13.5 [facility] Comment on above: Performed By: #### C BC ####[facility] Dlewybhjmj0762 [place] [address]Dr. Lizandro Hemphill PLT 238 103/ul Normal 150-450 [facility] Comment on above: Performed By: #### C BC ####[facility] Qqhhpvygff[address] [place], [place] [address]Dr. Lizandro Hemphill RBC 4.46 106/ul Normal 4.20-5.40 [facility] Comment on above: Performed By: #### C BC ####[facility] Fmndewuofm09[address] [place], [place] [id number]. Lizandro Hemphill WBC 5.1 103/ul Normal 4.0-11.0 [facility] Comment on above: Performed By: #### C BC ####[facility] Xojafypxek93[address] [place], [place] [address]Dr. Lizandro Hemphill CRPon 10-19-2021 CRP [Mass/Vol] mg/L Normal <=1.0 [facility] Comment on above: Performed By: #### C MP, CRP ####[facility] Lhnsrdycrt45[address] [place], [place] [id number]. Lizandro Hemphill H PYLORI ANTIBODY IGGon 09-24 H. PYLORI IGG ABS 0.24 Index Value Normal 0.00-0.79 [facility] Comment on above: Result Comment: Nega tive <0.80 Equivocal 0.80 - 0.89 Positive >0.89 Performed By: #### H PYLLC ####[facility] Xvlnrqtgjr[address] [place], [place] [address]Dr. Lizandro Hemphill PROF 14(COMP METB)on 022 Albumin [Mass/Vol] 2.9 g/dL Critically low 3.4-5.0 [facility] Comment on above: Performed By: #### C MP, CRP ####[facility] Dtyqqjycfy7341 [place] [address]Dr. Lizandro Hemphill Albumin/Globulin [Mass ratio] 0.9 {ratio} Normal [facility] Comment on above: Performed By: #### C MP, CRP ####[facility] Huupivrhqr4690 [place] [address]Dr. Lizandro Hemphill ALP [Catalytic activity/Vol] 100 U/L Normal 46-116 [facility] Comment on above: Performed By: #### C MP, CRP ####[facility] Vazlycicsf1397 [place] [address]Dr. Lizandro Hemphill ALT [Catalytic activity/Vol] 24 U/L Normal 14-59 [facility] Comment on above: Performed By: #### C MP, CRP ####[facility] Xcftsprlpy0289 [place] [address]Dr. Lizandro Hemphill Anion gap [Moles/Vol] 11.6 mmol/L Normal [facility] Comment on above: Performed By: #### C MP, CRP ####[facility] Zmwmdatapl1680 [place] [address]Dr. Lizandro Hemphill AST [Catalytic activity/Vol] 29 U/L Normal 15-37 [facility] Comment on above: Performed By: #### C MP, CRP ####[facility] Zhtlghleei6167 [place] [address]Dr. Lizandro Hemphill Bilirubin [Mass/Vol] 0.3 mg/dL Normal 0.2-1.0 [facility] Comment on above: Performed By: #### C MP, CRP ####[facility] Pbvlhpbtoj3336 [place] [address]Dr. Lizandro Hemphill Calcium [Mass/Vol] 8.0 mg/dL Critically low 8.5-10.1 [facility] Comment on above: Performed By: #### C MP, CRP ####[facility] Agxhfasosm8000 [place] [id number]. Lizandro Hemphill Chloride [Moles/Vol] 107 mmol/L Normal 98-107 [facility] Comment on above: Performed By: #### C MP, CRP ####[facility] Rnmmbiccyk7490 [place] [id number]. Lizandro Hmephill CO2 [Moles/Vol] 22.9 mmol/L Normal 21.0-32.0 The [facility] Comment on above: Performed By: #### C MP, CRP ####[facility] Nbowzmcgjj6162 [place] [id number]. Lizandro Hemphill Creatinine [Mass/Vol] 0.65 mg/dL Normal 0.55-1.02 [facility] Comment on above: Performed By: #### C MP, CRP ####[facility] Hlvphuilbi5800 [place] [address]Dr. Lizandro Hemphill EGFR-AF SOMALI >60 Normal >=60 The [facility] Comment on above: Performed By: #### C MP, CRP ####[facility] Xtrielxeba4123 [place] [id number]. Lizandro Hemphill EGFR-NON AF SOMALI >60 Normal >=60 [facility] Comment on above: Performed By: #### C MP, CRP ####[facility] Ujkrjgulme6115 [place] [address]Dr. Lizandro Hemphill Globulin (S) [Mass/Vol] 3.4 g/dL Normal [facility] Comment on above: Performed By: #### C MP, CRP ####[facility] Yehnsxloyc8483 [place] [id number]. Lizandro Hemphill Glucose [Mass/Vol] 93 mg/dL Normal 74-106 [facility] Comment on above: Performed By: #### C MP, CRP ####[facility] Mdqhusxfgz1279 [place] [address]Dr. Lizandro Hemphill Potassium [Moles/Vol] 3.5 mmol/L Normal 3.5-5.1 [facility] Comment on above: Performed By: #### C MP, CRP ####[facility] Fxgfdrgqev2557 [place] [address]Dr. Lizandro Hemphill Protein [Mass/Vol] 6.3 g/dL Critically low 6.4-8.2 [facility] Comment on above: Performed By: #### C MP, CRP ####[facility] Xanpjgntle5286 [place] [address]Dr. Lizandro Hemphill Sodium [Moles/Vol] 138 mmol/L Normal 136-145 [facility] Comment on above: Performed By: #### C MP, CRP ####[facility] Dmotadakqb4921 [place] [address]Dr. Lizandro Hemphill Urea nitrogen [Mass/Vol] 10.0 mg/dL Normal 7.0-18.0 [facility] Comment on above: Performed By: #### C MP, CRP ####[facility] Uhgdrzjhhq8[address] [place], [place] [address]Dr. Lizandro Hemphill Urea nitrogen/Creatinin e [Mass ratio] 15.4 mg/mg Normal [facility] Comment on above: Performed By: #### C MP, CRP ####[facility] Zseztmqsva67[address] [place], [place] [address]Dr. Lizandro Hemphill PROTIMEon 10-19-2021 INR Coag (PPP) [Relative time] 2.03 {INR} Normal [facility] Comment on above: Performed By: #### P T ####[facility] Gbtrkphpyw[address] [place], [place] [address]Dr. Lizandro Hemphill INR GUIDELINES SEE BELOW Normal [facility] Comment on above: Result Comment: GUEVARA RED INR: 2.0 - 3.0 CONDITIONS NOT LISTED BELOW 2.5 - 3.5 FOR PROSTHETIC HEART VALVE REPLACEMENT 2.5 - 3.5 RECURRENT THROMBOSIS Performed By: #### P T ####[facility] Jfikcghyrj[address] [place], [place] [address]Dr. Lizandro Hemphill PT Coag (PPP) [Time] 20.9 s Critically high 9.0-11.6 [facility] Comment on above: Performed By: #### P T ####[facility] [id number] [place], [place] [address]Dr. Lizandro Hemphill AMMONIAon 10-18-2021 Ammonia (P) [Moles/Vol] 21 umol/L Normal 11-32 [facility] Comment on above: Performed By: #### A MM ####[facility] [id number] [place], [place] [address]Dr. Lizandro Hemphill AMYLASEon 10-18-2021 Amylase [Catalytic activity/Vol] 86 U/L Normal 25-115 [facility] Comment on above: Performed By: #### A MY, CMP, LIPA, BNP, CRP ####[facility] Rzfanmdpbl[address] [place] [address]Dr. Lizandro Hemphill BNPon 10-18-2021 Natriuretic peptide B (Bld) [Mass/Vol] 157.0 pg/mL Normal <=900.0 [facility] Comment on above: Performed By: #### A MY, CMP, LIPA, BNP, CRP ####[facility] Bbxdwuouvj[address] [place], [place] [address]Dr. Lizandro Hemphill CBC AUTO DIFFon 10-18-2021 BASO # 0.1 103/ul Normal 0.0-0.1 [facility] Comment on above: Performed By: #### C BC ####[facility] Bfnkpnftui[address] [place], [place] [address]Dr. Lizandro Hemphill Basophils/100 WBC (Bld) 1.0 % Normal 0.2-2.0 [facility] Comment on above: Performed By: #### C BC ####[facility] Ixapaeqfek37[address] [place], [place] [address]Dr. Lizandro Hemphill EO # 0.1 103/ul Normal 0.0-0.7 [facility] Comment on above: Performed By: #### C BC ####[facility] Dchwgslmqm[address] [place], [place] [address]Dr. Lizandro Hemphill Eosinophils/100 WBC (Bld) 1.0 % Normal 0.9-7.0 [facility] Comment on above: Performed By: #### C BC ####[facility] Xynuxqglzt597[address] [place], [place] [address]Dr. Lizandro Hemphill Erythrocyte distribution width (RBC) [Ratio] 16.8 % Critically high 11.0-15.0 [facility] Comment on above: Performed By: #### C BC ####[facility] Aumvkndchc[address] [place] [address]Dr. Lizandro Hemphill Hematocrit (Bld) [Volume fraction] 42.3 % Normal 36.0-48.0 [facility] Comment on above: Performed By: #### C BC ####[facility] Psmeggrure4[address] [place] [address]Dr. Lizandro Hemphill Hemoglobin (Bld) [Mass/Vol] 13.4 g/dL Normal 12.0-16.0 [facility] Comment on above: Performed By: #### C BC ####[facility] Tlkcrpybra[address] [place], [place] [address]Dr. Lizandro Hemphill IG # 0.02 10e3/ul Normal 0.00-0.03 [facility] Comment on above: Performed By: #### C BC ####[facility] Zkhqnmxugn746[address] [place], [place] [address]Dr. Lizandro Hemphill IG % 0.3 % Normal 0.0-0.5 [facility] Comment on above: Performed By: #### C BC ####[facility] Ustpzyvfkh766[address] [place], [place] [address]Dr. Lizandro Hemphill LYMPH # 1.5 103/ul Normal 1.2-3.8 [facility] Comment on above: Performed By: #### C BC ####[facility] Dvdfxiqhlu24[address] [place], [place] [address]Dr. Lizandro Hemphill Lymphocytes/100 WBC (Bld) 19.0 % Critically low 20.5-60.0 [facility] Comment on above: Performed By: #### C BC ####[facility] Ydpxfjhbyv10[address] [place], [place] [address]Dr. Lizandro Joby MANUAL DIFF REQ NO Normal [facility] Comment on above: Performed By: #### C BC ####[facility] Fttyeoowdl5067[address] [place], [place] [address]Dr. Lizandro Joby MCH (RBC) [Entitic mass] 27.2 pg Normal 26.7-34.0 [facility] Comment on above: Performed By: #### C BC ####[facility] Ijuabualzs34[address] [place] [address]DrCiro Hemphill MCHC (RBC) [Mass/Vol] 31.7 g/dL Normal 29.9-35.2 [facility] Comment on above: Performed By: #### C BC ####[facility] Raruxumvwg959[address] [place], [place] [address]DrCiro Hemphill MCV (RBC) [Entitic vol] 85.8 fL Normal 81.0-99.0 [facility] Comment on above: Performed By: #### C BC ####[facility] Whyclzlnen[address] [place], [place] [address]DrCiro Hemphill MONO # 0.8 103/ul Normal 0.3-0.8 [facility] Comment on above: Performed By: #### C BC ####[facility] Vsxhkusyat46[address] [place], [place] [address]DrCiro Hemphill Monocytes/100 WBC (Bld) 9.9 % Normal 1.7-12.0 [facility] Comment on above: Performed By: #### C BC ####[facility] Yasctzxwuz0911[address] [place], [place] [address]DrCiro Hemphill NEUT # 5.4 103/ul Normal 1.4-6.5 [facility] Comment on above: Performed By: #### C BC ####[facility] Racnjffeae687[address] [place], [place] [address]DrCiro Hemphill Neutrophils/100 WBC (Bld) 68.8 % Normal 43.0-75.0 [facility] Comment on above: Performed By: #### C BC ####[facility] Kabuitftul0497[address] [place], [place] [address]DrCiro Hemphill Platelet mean volume (Bld) [Entitic vol] 10.5 fL Normal 9.5-13.5 [facility] Comment on above: Performed By: #### C BC ####[facility] Tqafmteeaz3[address] [place], [place] [address]Dr. Lizandro Hemphill PLT 254 103/ul Normal 150-450 [facility] Comment on above: Performed By: #### C BC ####[facility] Clytjhiuzw44[address] [place] [id number]. Lizandro Hemphill RBC 4.93 106/ul Normal 4.20-5.40 [facility] Comment on above: Performed By: #### C BC ####[facility] Jpfuczppxo63[address] [place] [id number]. Lizandro Hemphill WBC 7.8 103/ul Normal 4.0-11.0 [facility] Comment on above: Performed By: #### C BC ####[facility] Ckytmhjvep[address] [place] [address]Dr. Lizandro Hemphill CRPon 10-18-2021 CRP [Mass/Vol] mg/L Normal <=1.0 [facility] [place] Comment on above: Performed By: #### A MY, CMP, LIPA, BNP, CRP ####[facility] Xecwbbeywd[address] [place] [address]Dr. Liz[address] Hem[address] CT ABD/PELVIS WO CONon 10-18 CT ABD/PELVIS WO CON Normal [facility] CULTURE BLOODon 10-18-2021 Microscopic examination of blood, culture Culture Observations: NO GROWTH AT 5 DAYS. Normal [facility] Comment on above: Performed By: #### B LDCX2 ####[facility] Wspkobdjmi18[address] [place] [address]Dr. Lizandro Hemphill Microscopic examination of blood, culture Culture Observations: NO GROWTH AT 5 DAYS. Normal [facility] Comment on above: Performed By: #### B LDCX1 ####[facility] Ykwlqahocw[address] [place] [address]Dr. Lizandro Hemphill [facility]on [facility]-24 SARS-CoV-2 (COVID-19) RNA VERITO+probe Ql (Unsp spec) Not detected Normal NOT DETECTED [facility] Comment on above: Result Comment: When diagnostic [...] for this test is supported by the [place] of Health and Human Service's declaration that [...] be used). Performed By: #### C VDTBH ####[facility] Tzeyfszwhr[address] [place], [place] [address]Dr. Lizandro Hemphill GI PANEL (PCR)on 10-18-2021 Adenovirus F 40/41 Not detected Normal NOT DETECTED [facility] Comment on above: Performed By: #### G IPANEL ####[facility] Ysapmsdjoc0525[address] [place], [place] [address]Dr. Lizandro Hemphill Astrovirus Not detected Normal NOT DETECTED [facility] Comment on above: Performed By: #### G IPANEL ####[facility] Ejmjbsddsy8689[address] [place], [place] [address]Dr. Lizandro Hemphill C. Diff toxin A/B Not detected Normal NOT DETECTED [facility] Comment on above: Performed By: #### G IPANEL ####[facility] Rzhczgjmja4220[address] [place], [place] [address]Dr. Lizandro Hemphill Campylobacter Not detected Normal NOT DETECTED The [facility] Comment on above: Performed By: #### G IPANEL ####[facility] Yorpkbwruz1090[address] [place], [place] [address]Dr. Lizandro Hemphill Cryptosporidium Not detected Normal NOT DETECTED [facility] Comment on above: Performed By: #### G IPANEL ####[facility] Otxdpxpuhh15[address] [place], [place] [address]Dr. Lizandro Hemphill Cyclos. Cayetanensis Not detected Normal NOT DETECTED [facility] Comment on above: Performed By: #### G IPANEL ####[facility] Crzjdnryax14[address] [place], [place] [address]Dr. Shanikaannie Hemphill E. Coli O157 Not Applicable Normal Not Applicable [facility] Comment on above: Performed By: #### G IPANEL ####[facility] Blnrkesczn[address] [place], [place] [address]Dr. Shanikaannie Hemphill E. histolytica Not detected Normal NOT DETECTED [facility] Comment on above: Performed By: #### G IPANEL ####[facility] Izhjvdbrqi5969[address] [place], [place] [address]Dr. Lizandro [facility] EAEC Not detected Normal NOT DETECTED [facility] Comment on above: Performed By: #### G IPANEL ####[facility] Sdvvxyjrrg59[address] [place], [place] [address]Dr. Shanikaannie Hemphill EIEC Not detected Normal NOT DETECTED [facility] Comment on above: Performed By: #### G IPANEL ####[facility] Rbhpqkebkg425[address] [place], [place] [address]Dr. Shanikaannie Hemphill EPEC Not detected Normal NOT DETECTED [facility] Comment on above: Performed By: #### G IPANEL ####[facility] Yonuptdcyi4637[address] [place], [place] [address]Dr. annie Hemphill ETEC Not detected Normal NOT DETECTED [facility] Comment on above: Performed By: #### G IPANEL ####[facility] Arerjuifwh9923[address] [place], [place] [address]Dr. Lizandro Hemphill G. Lamblia Not detected Normal NOT DETECTED [facility] Comment on above: Performed By: #### G IPANEL ####[facility] Rhyswkxhdb35[address] [place], [place] [address]Dr. Lizandro Hemphill GIPANEL CONTROLS PASSED Normal The [facility] Comment on above: Performed By: #### G IPANEL ####[facility] Lflbbxktje055[address] [place], [place] [address]Dr. Lizandro Hemphill GIPNL CARIE HEADER GI PANEL BACTERIA Normal T [facility] Comment on above: Performed By: #### G IPANEL ####[facility] Pehlxltsuu34[address] [place] [address]Dr. Lizandro Joby [facility] PANEL DIARRHEAGEN IC E.COLI / SHIGELLA Normal [facility] Comment on above: Performed By: #### G IPANEL ####[facility] Rgwuhmxbgv996[address] [place], [place] [address]Dr. Lizandro Hemphill GIPNLHD INFO SEE BELOW Normal [facility] Comment on above: Result Comment: EAEC - Enteroaggregative E. Coli EPEC- Enteropathogenic E. Coli ETEC- Enterotoxigenic E. Coli lt/st STEC- Shigella-like toxin-producing E. Coli stx1/stx2 EIEC- Shigella/Enteroinvasive E. Coli Performed By: #### G IPANEL ####[facility] Maydotpnlz2223[address] [place], [place] [address]Dr. Lizandro Hemphill GIPNLHD PARASITES GI PANEL PARASITES Normal [facility] Comment on above: Performed By: #### G IPANEL ####[facility] Vsdjgcaidc86[address] [place], [place] [address]Dr. Shanikaannie Hemphill GIPHD VIRUS GI PANEL VIRUSES Normal [facility] Comment on above: Performed By: #### G IPANEL ####[facility] Pquqrnkmis0764[address] [place], [place] [address]Dr. Lizandro Hemphill Norovirus GI/GII Not detected Normal NOT DETECTED [facility] Comment on above: Performed By: #### G IPANEL ####[facility] Ckwzbhviab668[address] [place], [place] [address]Dr. Lizandro Hemphill P. Shigelloides Not detected Normal NOT DETECTED [facility] Comment on above: Performed By: #### G IPANEL ####[facility] Ebclwlbagn779[address] [place], [place] [address]Dr. Lizandro Hemphill Rotavirus A Not detected Normal NOT DETECTED [facility] Comment on above: Performed By: #### G IPANEL ####[facility] Cwvptytufw084[address] [place], [place] [address]Dr. Lizandro Hemphill Salmonella Not detected Normal NOT DETECTED [facility] Comment on above: Performed By: #### G IPANEL ####[facility] Iizvfcuukk026[address] [place], [place] [address]Dr. Lizandro Hemphill Sapovirus Not detected Normal NOT DETECTED [facility] Comment on above: Performed By: #### G IPANEL ####[facility] Cgnemjqzay495[address] [place], [place] [address]Dr. Lizandro Hemphill STEC Not detected Normal NOT DETECTED [facility] Comment on above: Performed By: #### G IPANEL ####[facility] Uarejcdzns0145[address] [place], [place] [address]Dr. Lizandro Hemphill Vibrio Not detected Normal NOT DETECTED [facility] Comment on above: Performed By: #### G IPANEL ####[facility] Vsctqanckr449[address] [place], [place] [address]Dr. Lizandro Hemphill Vibrio Cholera Not detected Normal NOT DETECTED [facility] Comment on above: Performed By: #### G IPANEL ####[facility] Ppathjzkua809[address] [place], [place] [address]Dr. Lizandro Hemphill Y. Enterocolitica Not detected Normal NOT DETECTED [facility] Comment on above: Performed By: #### G IPANEL ####[facility] Llmjucxwke9067[address] [place], [place] [address]Dr. Lizandro Hemphill LACTATE/LACTIC ACIDon 2021 Lactate [Moles/Vol] 1.1 mmol/L Normal 0.4-1.9 [facility] Comment on above: Performed By: #### L ACT ####[facility] Juhlaaqdij1007[address] [place], [place] [address]Dr. Lizandro Hemphill LIPASEon 10-18-2021 Lipase [Catalytic activity/Vol] 151.0 U/L Normal 73.0-393.0 [facility] Comment on above: Performed By: #### A MY, CMP, LIPA, BNP, CRP ####[facility] Amejovzkqt8964[address] [place], [place] [address]Dr. Lizandro Joby PROF 14(COMP METB)on 022 Albumin [Mass/Vol] 3.7 g/dL Normal 3.4-5.0 [facility] Comment on above: Performed By: #### A MY, CMP, LIPA, BNP, CRP ####[facility] Euyecavlel[address] [place] [address]Dr. Lizandro Hemphill Albumin/Globulin [Mass ratio] 0.9 {ratio} Normal [facility] Comment on above: Performed By: #### A MY, CMP, LIPA, BNP, CRP ####[facility] Levstzgigf9[address] [place] [address]Dr. Lizandro Hemphill ALP [Catalytic activity/Vol] 114 U/L Normal 46-116 [facility] Comment on above: Performed By: #### A MY, CMP, LIPA, BNP, CRP ####[facility] Kvppsutlft62[address] [place], [place] [address]Dr. Lizandro Hemphill ALT [Catalytic activity/Vol] 26 U/L Normal 14-59 [facility] Comment on above: Performed By: #### A MY, CMP, LIPA, BNP, CRP ####[facility] Qmldnnopye300[address] [place], [place] [address]Dr. Lizandro Hemphill Anion gap [Moles/Vol] 13.7 mmol/L Normal [facility] Comment on above: Performed By: #### A MY, CMP, LIPA, BNP, CRP ####[facility] Mnwznoxsgz10[address] [place], [place] [address]Dr. Lizandro Hemphill AST [Catalytic activity/Vol] 30 U/L Normal 15-37 [facility] Comment on above: Performed By: #### A MY, CMP, LIPA, BNP, CRP ####[facility] Karaafqhcg207[address] [place], [place] [address]Dr. Lizandro Hemphill Bilirubin [Mass/Vol] 0.3 mg/dL Normal 0.2-1.0 [facility] Comment on above: Performed By: #### A MY, CMP, LIPA, BNP, CRP ####[facility] Rsisbcuynp2247[address] [place], [place] [address]Dr. Lizandro Hemphill Calcium [Mass/Vol] 9.1 mg/dL Normal 8.5-10.1 [facility] Comment on above: Performed By: #### A MY, CMP, LIPA, BNP, CRP ####[facility] Nudgmluagg14[address] [place] [address]Dr. Lizandro Hemphill Chloride [Moles/Vol] 102 mmol/L Normal 98-107 [facility] Comment on above: Performed By: #### A MY, CMP, LIPA, BNP, CRP ####[facility] Qylkopridd9532[address] [place], [place] [address]Dr. Lizandro Hemphill CO2 [Moles/Vol] 26.9 mmol/L Normal 21.0-32.0 The [facility] Comment on above: Performed By: #### A MY, CMP, LIPA, BNP, CRP ####[facility] Xzihnvkosu807[address] [place], [place] [address]Dr. Lizandro Hemphill Creatinine [Mass/Vol] 0.79 mg/dL Normal 0.55-1.02 [facility] Comment on above: Performed By: #### A MY, CMP, LIPA, BNP, CRP ####[facility] Ejmznmmlbt47[address] [place], [place] [address]Dr. Lizandro Hemphill EGFR-AF SOMALI >60 Normal >=60 The [facility] Comment on above: Performed By: #### A MY, CMP, LIPA, BNP, CRP ####[facility] Ovciszlflt670[address] [place], [place] [address]Dr. Lizandro Hemphill EGFR-NON AF SOMALI >60 Normal >=60 [facility] Comment on above: Performed By: #### A MY, CMP, LIPA, BNP, CRP ####[facility] Wpsflnobvw75[address] [place], [place] [address]Dr. Lizandro Hemphill Globulin (S) [Mass/Vol] 4.0 g/dL Normal [facility] Comment on above: Performed By: #### A MY, CMP, LIPA, BNP, CRP ####[facility] Xhctoihvau[address] [place], [place] [address]Dr. Lizandro Hemphill Glucose [Mass/Vol] 96 mg/dL Normal 74-106 [facility] Comment on above: Performed By: #### A MY, CMP, LIPA, BNP, CRP ####[facility] Sgnqraplux[address] [place] [address]Dr. Lizandro Hemphill Potassium [Moles/Vol] 3.6 mmol/L Normal 3.5-5.1 [facility] Comment on above: Performed By: #### A MY, CMP, LIPA, BNP, CRP ####[facility] Prousedhdp5[address] [place] [address]Dr. Lizandro Hemphill Protein [Mass/Vol] 7.7 g/dL Normal 6.4-8.2 [facility] Comment on above: Performed By: #### A MY, CMP, LIPA, BNP, CRP ####[facility] Huaznhdkok[address] [place] [address]Dr. Lizandro Hemphill Sodium [Moles/Vol] 139 mmol/L Normal 136-145 [facility] Comment on above: Performed By: #### A MY, CMP, LIPA, BNP, CRP ####[facility] Cckygekmcu0621 [place] [address]Dr. Lizandro Hemphill Urea nitrogen [Mass/Vol] 15.0 mg/dL Normal 7.0-18.0 [facility] Comment on above: Performed By: #### A MY, CMP, LIPA, BNP, CRP ####[facility] Bsdfzejwqj3[address] [place] [address]Dr. Lizandro Hemphill Urea nitrogen/Creatinin e [Mass ratio] 19.0 mg/mg Normal [facility] Comment on above: Performed By: #### A MY, CMP, LIPA, BNP, CRP ####[facility] Hguicoijyv8[address] [place] [address]Dr. Lizandro Hemphill PROTIMEon 10-18-2021 INR Coag (PPP) [Relative time] 1.66 {INR} Normal [facility] Comment on above: Performed By: #### P T, PTT ####[facility] Cxbxqrtufj07[address] [place] [address]Dr. Lizandro Hemphill INR GUIDELINES SEE BELOW Normal [facility] Comment on above: Result Comment: GUEVARA RED INR: 2.0 - 3.0 CONDITIONS NOT LISTED BELOW 2.5 - 3.5 FOR PROSTHETIC HEART VALVE REPLACEMENT 2.5 - 3.5 RECURRENT THROMBOSIS Performed By: #### P T, PTT ####[facility] Tzqcuvkuvg[address] [place], [place] [address]Dr. Lizandro Hemphill PT Coag (PPP) [Time] 17.3 s Critically high 9.0-11.6 [facility] Comment on above: Performed By: #### P T, PTT ####[facility] Dyzwceeyhx[address] [place], [place] [address]Dr. Lizandro Hemphill PTTon 10-18-2021 aPTT Coag (Bld) [Time] 38.3 s Critically high 22.3-36.2 [facility] Comment on above: Performed By: #### P T, PTT ####[facility] Mfqdarkirw887[address] [place], [place] [address]Dr. Lizandro Hemphill UA RANDOM W/MICROSCOPICon BACTERIA TRACE Abnormal NONE SEEN [facility] Comment on above: Performed By: #### U AMIC ####[facility] Majntafcuh67[address] [place], [place] [address]Dr. Lizandro Hemphill Bilirubin Ql (U) Negative Normal NEGATIVE The [facility] Comment on above: Performed By: #### U AMIC ####[facility] Zbqmdzvize46[address] [place], [place] [address]Dr. Lizandro Hemphill CAST NONE SEEN Normal NONE SEEN [facility] Comment on above: Performed By: #### U AMIC ####[facility] Fgjffqtpxt[address] [place], [place] [address]Dr. Lizandro Hemphill Clarity (U) CLEAR Normal CLEAR [facility] Comment on above: Performed By: #### U AMIC ####[facility] Kcukbwzqwy[address] [place], [place] [address]Dr. Lizandro Hemphill Color (U) LT. YELLOW Normal YELLOW [facility] Comment on above: Performed By: #### U AMIC ####[facility] Irudbuzddf250[address] [place], [place] [address]Dr. Lizandro Hemphill Crystals LM Nom (Urine sed) NONE SEEN Normal NONE SEEN [facility] Comment on above: Performed By: #### U AMIC ####[facility] Mnrruhljkc4216[address] [place], [place] [address]Dr. Lizandro Hemphill Epithelial cells LM Ql (Urine sed) RARE Normal NONE SEEN /RARE [facility] Comment on above: Performed By: #### U AMIC ####[facility] Trvxgjbaaw35[address] [place] [address]Dr. Lizandro Hemphill Glucose Ql (U) Negative Normal NEGATIVE [facility] Comment on above: Performed By: #### U AMIC ####[facility] Jxrywzkvua1628 [place] [address]Dr. Lizandro Hemphill Hemoglobin Ql (U) Negative Normal NEGATIVE The [facility] Comment on above: Performed By: #### U AMIC ####[facility] Jpiadvowvc8757 [place] [address]Dr. Lizandro Hemphill Ketones Ql (U) Negative Normal NEGATIVE [facility] Comment on above: Performed By: #### U AMIC ####[facility] Eqarsgwjjp5936 [place] [address]Dr. Lizandro Hemphill LEUKOCYTES Negative Normal NEGATIVE [facility] Comment on above: Performed By: #### U AMIC ####[facility] Ymbiiotkoh[address] [place], [place] [address]Dr. Lizandro Hemphill MUCOUS NONE SEEN Normal NONE SEEN [facility] Comment on above: Performed By: #### U AMIC ####[facility] Yjzwqlxwhc[address] [place], [place] [address]Dr. Lizandro Hemphill Nitrite Ql (U) Negative Normal NEGATIVE [facility] Comment on above: Performed By: #### U AMIC ####[facility] Knmlmsrzut[address] [place], [place] [address]Dr. Lizandro Hemphill pH (U) 6.5 [pH] Normal 5-9 [facility] Comment on above: Performed By: #### U AMIC ####[facility] Jaalfecdcx[address] [place], [place] [address]Dr. Lizandro Hemphill RBC NONE SEEN Abnormal 0-2 [facility] Comment on above: Performed By: #### U AMIC ####[facility] Xngiamhnrx78[address] [place] [address]Dr. Lizandro Hemphill SPEC GRAVITY <=1.005 Abnormal 1.005-<=1.025 [facility] Comment on above: Performed By: #### U AMIC ####[facility] Ckhjfprmkc9934 [place] [id number]. Shanikaannie Joby UA PROTEIN Negative Normal NEGATIVE/ TRACE [facility] Comment on above: Performed By: #### U AMIC ####[facility] Txczrqekvm3356 [place], [place] [address]Dq. Lizandro Hemphill Urobilinogen Qn (U) 0.2 {Cassy'U}/dL Normal 0.2 - 1.0 [facility] Comment on above: Performed By: #### U AMIC ####[facility] Iursnhjugx9[address] [place] [address]Dr. Lizandro Hemphill WBC 0-2 Abnormal NONE SEEN [facility] Comment on above: Performed By: #### U AMIC ####[facility] Eqaqbnzkdw7179 [place] [id number]. Lizandro Hemphill Ambulatory Visit Summaryon 0 09-27-2021 Ambulatory Visit Summary YESSENIA POWERDean Perera :1960 Visit Date:09/27/2021 Ambulatory Visit Instructions Your Care Team Attending Physician - KARYN COE, Alessia Lr Primary Care Physician - Noni COE, Ezekiel This Is Your Medications List [...] Sinus tachycardia Varicose veins of legs Normal [facility] PROTIMEon 09-20-2021 INR Coag (PPP) [Relative time] {INR} Normal [facility] Comment on above: Performed By: #### P T ####[facility] Ujrxgjakba22[address] [place] [address]Dr. Lizandro Hemphill INR GUIDELINES SEE BELOW Normal [facility] Comment on above: Result Comment: GUEVARA RED INR: 2.0 - 3.0 CONDITIONS NOT LISTED BELOW 2.5 - 3.5 FOR PROSTHETIC HEART VALVE REPLACEMENT 2.5 - 3.5 RECURRENT THROMBOSIS Performed By: #### P T ####[facility] Qoibivdrnw72[address] [place] [address]Dr. Lizandro Hemphill PT Coag (PPP) [Time] 9.7 s Normal 9.0-11.6 [facility] Comment on above: Performed By: #### P T ####[facility] Hfeheuzate22[address] [place] [address]Dr. Lizandro Hemphill Covid-19 PCR (CVDTB)on 08-25 SARS-CoV-2 (COVID-19) RNA VERITO+probe Ql (Unsp spec) Not detected Normal NOT DETECTED [facility] Comment on above: Result Comment: When diagnostic [...] for this test is supported by the [place] of Health and Human Service's declaration that [...] longer be used). Performed By: #### C [facility] ####[facility] Oforkgroyt0805 [place], [place] [address]Cr. Lizandro Hemphill Physician Referralon 022 Physician Referral [phone] [id number] Normal [facility] GI Letteron 12-31-2017 GI Letter [facility] Fax:Division [phone] gy Clinic Phone:[facility] [phone] [facility] Fax:[place] [phone] [address]XM: Patient Name: Feroz Power MR #: [id number] Date of : 1960 Date of Service:12/28/2017Tatiana Murphy Jr, D.O.[address] Murphy:I had the pleasure of seeing [...] M.D.Date Trans: 12/30/2017 04:04 A/mmoRevised: 12/31/2017 07:52 A/paCopy/[id number]_[id number]: Ezekiel Deras M.D. [address] [address] Tatiana Murphy Jr, D.O. [address] [place], [place] [id number] [facility] Operative Reporton 8 Operative Report MR#: [id number] [facility] Pt. Name: Feroz Power Room #: 0C Discharge Date: Birthdate: 1960 OPERATIVE REPORTDATE OF SURGERY: 09/17/2017SURGEON: Jermaine Hernández M.D.CUSTOMER SUCCESS ADVOCATE: Sussy Prince M.D.PREOPERATIVE DIAGNOSIS: Left wrist extensor [...] 09:03 A Jermaine Hernández M.D.Date Dict: 09/17/2017/10:36 Nathalie Hernández M.D.Date Trans: 09/17/2017 01:02 P/Devante_JN:[id number] c: Ezekiel Deras M.D. [address] [place] [id number] Normal [facility] POC GLUCOSE LABon 09-17-2017 Glucose mass conc 74 mg/dL Normal 70-100 [facility] Comment on above: Performed By: #### [id number] ####[facility] Vital Signs Date Time Vital Sign Value Performing Clinician Adai dulce 09-27-2021 15:12-0400 Blood Pressure Location [facility] [employer] [facility] Plix 09-27-2021 15:12-0400 Diastolic blood pressure 76 mm[Hg] [employer] [facility] 09-27-2021 15:12-0400 Heart rate 68 /min [employer] [facility] 09-27-2021 15:12-0400 Respiratory rate 16 /min [facility] [employer] 09-27-2021 15:12-0400 Systolic blood pressure 116 mm[Hg] [employer] [facility] [employer] [facility] Encounters Encounter Date Encounter Type Care Provider Facility Start: 11-20-2022 ambulatory ALESSIA Doyle [facility] Start: 09-29-2022 End: 09-30-2022 ambulatory TENNILLE LARA [facility] Start: 08-09-2022 End: 08-10-[address] EZEKIEL DERAS . Facility:[facility] Start: 07-30-2022 End: 07-31-2022 Evaluation and management of inpatient DR EZEKIEL DERAS . Facility:[facility] Start: 07-24-2022 End: 08-23-2022 ambulatory SHAIKH Alistair SINGH Facility:[facility] Start: 07-13-2022 ambulatory MARCELA BRUNOOSIELCLARISSE . Facility:[facility] Start: 06-27-2022 End: 06-28-2022 Evaluation and management of inpatient DR EZEKIEL DERAS . Facility:[facility] Start: 06-27-2022 ambulatory MARCELA BRUNOOSIELCLARISSE . Facility:[facility] Start: 06-26-2022 End: 07-21-2022 ambulatory Alistair FRANCISCO Facility:[facility] Start: 06-13-2022 End: 06-14-2022 ambulatory MARCELA BRUNOOSIELCLARISSE . Facility:[facility] Start: 05-29-2022 End: 05-31-2022 Evaluation [...] laboratory examination DR FELIX MALCOLM . [facility] Start: 01-17-2022 End: 01-17-[address] FELIX [...] laboratory examination DR EZEKIEL DERAS . [facility] Start: 10-25-2021 End: 10-25-[address] FELIX MALCOLM . Facility:[facility] Start: 10-24-2021 End: 11-23-2021 ambulatory SHAIKH Alistair SINGH Facility:[facility] Start: 10-21-2021 End: 10-22-[address] FELIX MALCOLM . Facility: Start: 10-20-2021 End: 10-21-2021 Evaluation and management of inpatient DR EZEKIEL DERAS . Facility: Start: 10-06-2021 End: 10-07-2021 ambulatory REBECCA NUNES . Facility: Start: 09-27-2021 End: 09-27-2021 Patient encounter procedure Alessia BOSS General Surgery [facility] [place] Start: 09-23-2021 End: 10-21-2021 ambulatory Alistair FRANCISCO Facility: Start: 09-20-2021 End: 09-20-[address] EZEKIEL DERAS . Facility: Start: 09-16-2021 End: 09-17-[address] EZEKIEL DERAS . Facility: Start: 09-15-[address] EZEKIEL DERAS . Facili ty: Start: 12-28-2017 End: 12-29-2017 Patient encounter CHRISTOPHER VALENCIA Facility:[facility] Start: 10-25-2017 End: 11-24-2017 Patient encounter MICHAEL HERNÁNDEZ Facility:[facility] Start: 09-17-2017 End: 09-18-2017 Patient encounter MICHAEL HERNÁNDEZ Facility:[facility] Procedures Date Procedure Procedure Detail Performing Clinician Start: 11-20-2022 Follow-up visit Follow-up ALESSIA WHITE Start: 05-29-2022 Insertion of Infusion Device into [...] AGUSTO RON Start: 09-17-2017 REPAIR FOREARM TENDON/MUSCLE ABDULALUIS EM [place] USTAPHA Appendectomy Alessia BOSS Cervical arthrodesis Alessia HAL Comment on above: C5-C8 Cholecystectomy Alessia HAL History of operative procedure on knee Alessia BOSS Structure of ligamen t of ankle joint (body structure) Alessia HAL Total abdominal hyst erectomy with bilateral salpingo-oophorectomy Alessia HAL Payers Date Payer Category Payer [employer] others) [id number] 2017 [employer] [id number] 1961 Unknown [id number] 2.16.840.1.153702.3.579.2.647 1961 Unknown [id number] 2.16.840.1.764850.3.579.2.647 1961 Unknown [id number] 2.16.840.1.804355.3.579.2.647 1961 Unknown [id number] 2.16.840.1.901618.3.579.2.593 1961 Unknown [id number] 2.16.840.1.961796.3.579.2.593 1961 Unknown [id number] 2.16.840.1.605713.3.579.2.593 1961 Unknown [id number] 2.16.840.1.053502.3.579.2.593 1961 Unknown [id number] 2.16.840.1.445625.3.579.2.593 1961 Unknown [id number] 2.16.840.1.336979.3.579.2.593 1961 Unknown [id number] 2.16.840.1.307258.3.579.2.593 1961 Unknown [id number] 2.16.840.1.346943.3.579.2.593 1961 Unknown [id number] 2.16.840.1.127688.3.579.2.593 1961 Unknown [id number] 2.16.840.1.589629.3.579.2.593 1961 Unknown [id number] 2.16.840.1.241186.3.579.2.593 1961 Unknown [id number] 2.16.840.1.016740.3.579.2.593 1961 Unknown [id number] 2.16.840.1.931655.3.579.2.593 1961 Unknown [id number] 2.16.840.1.243113.3.579.2.593 1961 Unknown [id number] 2.16.840.1.825693.3.579.2.593 1961 Unknown [id number] 2.16.840.1.003957.3.579.2.593 1961 Unknown [id number] 2.16.840.1.044862.3.579.2.593 1961 Unknown [id number] 2.16.840.1.717962.3.579.2.593 1961 Unknown [id number] 2.16.840.1.838595.3.579.2.593 1961 Unknown [id number] 2.16.840.1.096390.3.579.2.593 1961 Unknown [id number] 2.16.840.1.050456.3.579.2.593 1961 Unknown [id number] 2.16.840.1.585563.3.579.2.593 1961 Unknown [id number] 2.16.840.1.488314.3.579.2.593 1961 Unknown [id number] 2.16.840.1.460249.3.579.2.593 1961 Unknown [id number] 2.16.840.1.275478.3.579.2.593 1961 Unknown [id number] 2.16.840.1.089630.3.579.2.593 1961 Unknown [id number] 2.16.840.1.205976.3.579.2.593 1961 Unknown [id number] 2.16.840.1.094988.3.579.2.593 1961 Unknown [id number] 2.16.840.1.917537.3.579.2.593 1961 Unknown [id number] 2.16.840.1.608215.3.579.2.593 1961 Unknown [id number] 2.16.840.1.988941.3.579.2.593 1961 Unknown [id number] 2.16.840.1.013691.3.579.2.593 1961 Unknown [id number] 2.16.840.1.300396.3.579.2.593 1961 Unknown [id number] 2.16.840.1.859795.3.579.2.593 1961 Unknown [id number] 2.16.840.1.887386.3.579.2.593 1961 Unknown [id number] 2.16.840.1.799798.3.579.2.593 1961 Unknown [id number] 2.16.840.1.687645.3.579.2.593 1961 Unknown [id number] 2.16.840.1.124191.3.579.2.593 1961 Unknown [id number] 2.16.840.1.499625.3.579.2.593 1961 Unknown [id number] 2.16.840.1.948332.3.579.2.593 1961 Unknown [id number] 2.16.840.1.603996.3.579.2.593 1961 Unknown [id number] 2.16.840.1.784781.3.579.2.593 1961 Unknown [id number] 2.16.840.1.463968.3.579.2.593 1961 Unknown [id number] 2.16.840.1.094274.3.579.2.593 1961 Unknown [id number] 2.16.840.1.425540.3.579.2.593 1961 Unknown [id number] 2.16.840.1.670958.3.579.2.593 1961 Unknown [id number] 2.16.840.1.253412.3.579.2.1286 1959 [facility] and others) [id number] 1958 Medicare [id number] 1958 Self-pay [id number] Social History Date Type Detail Facility Start: 09-27-2021 Tobacco smoking status Never s moked tobacco (finding) General [facility] Tobacco smoking status Never [facility] [place] Sex Assigned At Female Genera l [facility] Functional Status Date Assessment Result Facility 09-27-2021 Functional Status N/A [facility] Clinical Note 09-29-2022 Note Date & Type Note Facility 09-29-2022 Note Called pt to [facility] consultation for Cervical Stenosis. Pt states that she was seen in the ED on 09/27 and is scheduled for surgery on 10/[address] Valenzuela. [facility] Consultation note 06-13-2022 Note Date & Type Note Facility 06-13-2022 Note [facility] Consultation note 01-05-2022 Note Date & Type Note Facility 01-05-2022 Note [facility] Consultation note 11-17-2021 Note Date & Type Note Facility 11-17-2021 Note [facility] Clinical Note 10-10-2021 Note Date [...] (at bedtime), PRN (more content not included)... [facility] Comment on above: Result Comment: Elec tronically Signed By: KARYN COE, Alessia Silverman\Date and Time Signed: 10/10/21 10:36 EDT Consultation note 10-06-2021 Note Date & Type Note Facility 10-06-2021 Note [facility] Evaluation + Plan note Note Date & Type Note Facility Evaluation + Plan note No data available for this section [facility] Discharge instructions Note Date & Type Note Facility Hospital Discharge instructions No data available for this section General [facility] [place] Progress note Note Date & Type Note Facility Progress note No data available for this section General [facility] [place] Summary Purpose Family History No Family History Records FoundNo Family History Records FoundNo Family History Records FoundNo Family History Records FoundNo Family History Records Found Advance Directives No Advanced Directives Records FoundNo Advanced Directives Records FoundNo Advanced Directives Records FoundNo Advanced Directives Records FoundNo Advanced Directives Records Found Procedure Findings [id number] [...] section and content) DATE CREATED AUTHOR 01/27/2018 [facility] DATE CREATED AUTHOR AUTHOR'S ORGANIZ ATION 10/14/2021 [facility] DATE CREATED AUTHOR AUTHOR'S ORGANIZ ATION 09/01/2022 [facility] DATE CREATED AUTHOR AUTHOR'S ORGANIZ ATION 10/27/2022 [facility] DATE CREATED AUTHOR AUTHOR'S ORGANIZ ATION 07/28/2023 [facility] Care Team (unrecognized sect ion and content) Personnel Name: Ezekiel Deras MD Address: [address] [place] [address] FOR RECORDS PERTAINING TO PATIENTS WHO ARE [...] BE BASED ON THE PRIMARY CLINICAL RECORDS. [facility]. provides no warranty or guarantee of the accuracy or completeness of information in this document.
[2023-09-06 08:24] LABS: Estimated GFR (African America >60 (>=60); Estimated GFR (Non-African Ame >60 (>=60)
--- NOTE | 2023-09-06 09:49 | CT_ITS ---
[address] [address] Patient Name: FEROZ DUTTA MRN: [id number] date: 1960 Sex: F Assigned Patient Location: CT Current Patient Location: Accession/Order Number: [id number] Exam Date: 09/06/2023 09:40 Report Date: 09/07/2023 10:37 At the request of: SILVESTRE ROSAS Procedure: CT angio chest EXAMINATION: CT angio chest HISTORY: Aortic Atherosclerosis, Peripheral Artery Disease I73.9 COMPARISON: No relevant comparison available. TECHNIQUE: Multi-planar CT images were created with IV contrast. Axial, Coronal, and Sagittal images. Dose reduction techniques were achieved by using automated exposure control and/or adjustment of mA and/or kV according to patient size and/or use of iterative reconstruction technique. FINDINGS: LUNGS: No visible pulmonary disease. PLEURA: No mass, effusion, or pneumothorax. VASCULATURE: Normal postcontrast opacification of the central pulmonary arterial tree with no filling defects to suggest a pulmonary embolus CATE: No mass or adenopathy. MEDIASTINUM: No mass or adenopathy. CARDIAC: No enlargement, pericardial thickening, or significant calcification. AORTA: No aneurysm or dissection. CHEST WALL: No mass or axillary adenopathy. BONES: No bone lesion or fracture. Anterior posterior cervical fusion LIMITED ABDOMEN: Multiple surgical clips the gallbladder fossa likely from prior cholecystectomy. IVC filter partially visualized OTHER: Negative. CT/CT angio chest IMPRESSION: No aortic aneurysm or dissection No central pulmonary thromboembolic disease Electronically authenticated by: TATIANA NOBLE Date: 09/07/2023 10:37
== END 2023-09-06 07:35 | disposition home or self-care (01) ==
LOC: CT 07:35
PROVIDERS: PCP Family Medicine; Visit Provider Student in an Organized Health Care Education/Training Program
DX: I73.9 Peripheral vascular disease, unspecified (principal)
CPT/HCPCS: 36415; 71275; 82565; Q9967

== ENCOUNTER 2023-09-24 11:32 | Outpatient (RCR) | payer MEDICARE, OTHER, SELFPAY | END 2023-10-24 09:57 | disposition home or self-care (01) | LOC: MM 11:32 | PROVIDERS: PCP Family Medicine; Visit Provider Internal Medicine | DX: Z51.81 Encounter for therapeutic drug level monitoring (principal); Z79.01 Long term (current) use of anticoagulants; I82.409 Acute embolism and thrombosis of unspecified deep veins of unspecified lower extremity | CPT/HCPCS: 85610; G0463 ==

== ENCOUNTER 2023-10-25 00:22 | Outpatient (RCR) | payer MEDICARE, OTHER, SELFPAY | END 2023-11-23 09:54 | disposition home or self-care (01) | LOC: MM 00:22 | PROVIDERS: PCP Family Medicine; Visit Provider Internal Medicine | DX: Z51.81 Encounter for therapeutic drug level monitoring (principal); Z79.01 Long term (current) use of anticoagulants; I82.409 Acute embolism and thrombosis of unspecified deep veins of unspecified lower extremity ==

== ENCOUNTER 2023-11-23 10:34 | Inpatient (IN) | payer MEDICARE, OTHER, SELFPAY ==
[2023-11-23] VITALS (13 sets, daily range): BP systolic 114–162; BP diastolic 71–104; PULSE 84–96; TEMP 36.6–36.9; O2SAT 91–100; BMI 22.7
--- NOTE | 2023-11-23 10:37 | ECG_ITS ---
[facility] Test Date: 2023-11-23 Pat Name: FEROZ DUTTA Department: Room: - Gender: Female [employer]: : 1960 Requested By: EZEKIEL CHENEY Order Number: [id number] Reading MD: EZEKIEL CHENEY Measurements Intervals [place] Rate: 90 P: 56 ID: [id number] QRS: -6 QRSD: 92 T: 52 QT: 350 QTc: 398 Interpretive Statements 1100 Sinus rhythm 2420 RSR (QR) in lead V1/V2, consistent with right ventricular conduction delay 9130 borderline ECG Compared to ECG 04/18/2023 10:03:08 No significant changes Electronically Signed On 11-24-2023 7:20:34 EDT by EZEKIEL CHENEY
--- NOTE | 2023-11-23 10:54 | CT_ITS ---
The [address] [address] Patient Name: FEROZ DUTTA MRN: [id number] date: 1960 Sex: F Assigned Patient Location: ER Current Patient Location: ER Accession/Order Number: [id number] Exam Date: 11/23/2023 11:46 Report Date: 11/23/2023 12:21 At the request of: JENNIFER BROWN Procedure: CT abdomen pelvis wo con EXAM: CT abdomen pelvis wo con HISTORY: abd pain hx of pancreatitis COMPARISON: CT abdomen and pelvis 2023. TECHNIQUE: Axial soft tissue windows of the abdomen and pelvis with coronal and sagittal reformats. CT dose reduction technique was used including Automated Exposure Control. . Findings: Lack of intravenous contrast limits evaluation. ABDOMEN: Stable low-attenuation lesion within segment 6 of the liver. The gallbladder is surgically absent. The spleen, pancreas, and adrenal glands are unremarkable. Unremarkable right kidney. Within the lower pole of the left kidney there is a nonobstructing 0.3 cm stone. No renal collecting system or ureteral dilatation. Evaluation of the bowel is limited given the absence of oral contrast. No bowel obstruction. The appendix is not definitely identified. The aorta is normal caliber. IVC filter. Bilateral common iliac veins stents. No enlarged abdominal lymph nodes or free abdominal fluid. Pelvis: Unremarkable bladder. The uterus is surgically absent. No enlarged pelvic lymph nodes or free pelvic fluid. No aggressive sclerotic or lytic osseous lesion. Mild degenerative spondylosis. CT/CT abdomen pelvis wo con IMPRESSION: 1. Nonobstructing left renal stone. 2. Other nonemergent findings, as above. Electronically authenticated by: RODRI MTZ Date: 11/23/2023 12:21
--- NOTE | 2023-11-23 10:58 | ED.ABDPAIN1 ---
HPI - Abdominal Pain General Chief Complaint: Abdominal Pain Stated Complaint: ABDOMINAL PAIN, BACK PAIN, CLINIC REFERRAL Time Seen by Provider: 11/23/23 10:36 Source: patient Mode of arrival: Wheelchair Limitations: no limitations History of Present Illness HPI narrative: The patient history of acute pancreatitis as well as diverticulitis as well, presenting to us being sent from her primary care doctor office for abdominal pain that been going on at least for the last 7 days, abdominal pain associated with diarrhea and nausea and vomiting, the pain is in the lower abdomen , and she mentioned also having lower back pain that is new usually whenever she is doing some laundry or moving The patient denies any chest pain or fever or cough or any shortness of breath Upon arrival the patient requested pain medication as well as nausea medication Related Data Home Medications ?Medication ?Instructions ?Recorded ?Confirmed cyclobenzaprine 10 mg tablet 20 mg PO BEDTIME 12/14/22 11/23/23 temazepam 30 mg capsule 30 mg PO BEDTIME 12/14/22 11/23/23 hydroxyzine pamoate 25 mg capsule 25 mg PO Q6H PRN anxiety 01/17/23 11/23/23 (Vistaril) amlodipine 5 mg tablet 5 mg PO DAILY 06/01/23 11/23/23 warfarin 4 mg tablet 4 mg PO DAILY 06/01/23 11/23/23 Previous Rx's ?Medication ?Instructions ?Recorded omeprazole 40 mg capsule,delayed 40 mg PO QD 30 days #30 caps 12/17/22 release hyoscyamine sulfate 0.125 mg 0.125 mg PO Q6H PRN abdominal pain 06/01/23 sublingual tablet (Levsin/SL) #20 tabs nabumetone 750 mg tablet 750 mg PO BID PRN pain #8 tabs 06/01/23 promethazine 25 mg tablet 25 mg PO Q6H PRN nausea and 06/01/23 vomiting #14 tabs Allergies Allergy/AdvReac Type Severity Reaction Status Date / Time prochlorperazine Allergy Intermediate Unknown Verified 11/23/23 10:40 [From Compazine] Iodinated Contrast Media AdvReac Severe Anaphylaxis Verified 11/23/23 10:40 ivp Allergy Severe Rash Uncoded 11/23/23 10:40 Review of Systems ROS Status of ROS 10 or more systems reviewed and unremarkable except as noted in history and below [facility] Medical History (Updated 11/23/23 @ 12:33 by Jade Shine MD) Acute pancreatitis ?K85.90 - Acute pancreatitis without necrosis or infection, unspecified (ICD-10) Gastritis ?K29.70 - Gastritis, unspecified, without bleeding (ICD-10) Intractable abdominal pain ?R10.9 - Unspecified abdominal pain (ICD-10) [place] filter in place ?Z95.828 - Presence of other vascular implants and grafts (ICD-10) Diverticulitis ?K57.92 - Diverticulitis of intestine, part unspecified, without perforation or abscess without bleeding (ICD-10) Gastroenteritis ?K52.9 - Noninfective gastroenteritis and colitis, unspecified (ICD-10) Stroke ?I63.9 - Cerebral infarction, unspecified (ICD-10) Migraine ?G43.909 - Migraine, unspecified, not intractable, without status migrainosus (ICD-10) Fibromyalgia syndrome ?M79.7 - Fibromyalgia (ICD-10) Thoracic outlet syndrome ?G54.0 - Brachial plexus disorders (ICD-10) Protein S deficiency ?D68.59 - Other primary thrombophilia (ICD-10) Surgical History (Updated 12/14/22 @ 10:46 by Vangie Mason) H/O neck surgery ?Z98.890 - Other specified postprocedural states (ICD-10) H/O: hysterectomy ?Z90.710 - Acquired absence of both cervix and uterus (ICD-10) H/O knee surgery ?Z98.890 - Other specified postprocedural states (ICD-10) History of ankle surgery ?Z98.890 - Other specified postprocedural states (ICD-10) Hx of appendectomy ?Z90.49 - Acquired absence of other specified parts of digestive tract (ICD-10) Family History (Updated 12/14/22 @ 10:47 by Vangie Mason) Father Family history of cancer Mother Family history of cancer Sister Family history of cancer Brother Family history of diabetes mellitus Social History (Updated 12/14/22 @ 10:49 by Vangie Mason) Within the past year, how often did you have a drink containing alcohol: never Within the past year, how many standard drinks containing alcohol did you have on a typical day: 1 or 2 Within the past year, how often did you have six or more drinks on one occasion: never Total score: 0 Score interpretation: A score less than 3 is consistent with normal alcohol consumption. Smoking status: Never smoker Non-prescribed substance use: denies use Previous occupational history: disabled Highest level of school completed/degree received: Associate degree: occupational, technical, vocational program Are you now , , , , never or living with a partner: In a typical week, how many times do you talk on the telephone with family, friends, or neighbors: twice per week How often do you get together with friends or relatives: once per week How often do you attend moravian or jain services: 4 or more times per year Do you belong to any clubs or organizations such as moravian groups unions, fraternal or athletic groups, or school groups: no Total score: 2 Score interpretation: A score of greater than or equal to 2 indicates the lowest level of social isolation. Little interest or pleasure in doing things: not at all Feeling down, depressed, or hopeless: not at all Feel stressed/tense/nervous/anxious/difficulty sleeping: only a little Gender Identity: female Exam Narrative Exam Narrative: Nurses notes and vital signs reviewed and patient is not hypoxic. General: Well-appearing and in no apparent distress. Skin: Warm, dry, no pallor noted. No rash. Head: Normocephalic, atraumatic. Neck: Supple, non-tender. Eye: Pupils are equal, round and EOMI. No scleral icterus. Ears, Nose, Mouth, and Throat: TM are clear, no nasal mucosal hypertrophy. Oral mucosa is moist, no posterior oropharynx erythema, uvula is mid-line Cardiovascular: Regular Rate and Rhythm without murmur, gallop or rub. Respiratory: No accessory muscle use or respiratory distress. Lungs are clear to auscultation, no wheezing, rales or rhonchi Chest Wall: no tenderness Back: No midline thoracic or lumbar vertebral tenderness. No CVA tenderness Musculoskeletal: normal ROM, no calf or popliteal tenderness, no lower extremity edema/swelling GI: Abdomen is soft, non-distended. Normal bowel sounds. No masses appreciated. Suprapubic discomfort ,no rebound, guarding, or rigidity noted. Neurological: A&O x4. No cranial nerve dysfunction observed. No truncal ataxia. Moves all extremities. Sensation intact. Psychiatric: Cooperative and interactive. Normal mood and affect. Constitutional Vital Signs, click to edit/add: Last Vital Signs Temp 97.9 F 11/23/23 10:40 Pulse 90 11/23/23 12:18 Resp 16 11/23/23 11:30 BP 134/104 H 11/23/23 12:18 Pulse Ox 100 11/23/23 12:18 O2 Del Method Room Air 11/23/23 10:40 Course Vital Signs Vital signs: Vital Signs Temperature 97.9 F 11/23/23 10:40 Pulse Rate 96 H 11/23/23 10:40 Respiratory Rate 18 11/23/23 10:40 Blood Pressure 143/90 H 11/23/23 10:40 Pulse Oximetry 98 11/23/23 10:40 Oxygen Delivery Method Room Air 11/23/23 10:40 Temperature 97.9 F 11/23/23 10:40 Pulse Rate 90 11/23/23 12:18 Respiratory Rate 16 11/23/23 11:30 Blood Pressure 134/104 H 11/23/23 12:18 Pulse Oximetry 100 11/23/23 12:18 Oxygen Delivery Method Room Air 11/23/23 10:40 MDM - Abdominal Pain MDM Narrative Medical decision making narrative: Patient EKG showing sinus rhythm with a heart rate of [address] elevation or depression CBC showed no acute pathology with the CHEM is showing elevated BUN and potassium 3.2 CAT scan of the abdomen pelvis shows a kidney stone with no obstruction Patient presenting to us with gastroenteritis symptoms in addition to the kidney stone in the dehydration symptoms that she is coming with the patient will be admitted for observation Patient was treated with Zofran and Dilaudid IV Patient case was discussed with Dr. Deras and he will be admitting her for dehydration Lab Data Labs: Lab Results 11/23/23 11/23/23 Range/Units 10:02 11:45 WBC 7.4 (4.0-11.0) 10^3/uL RBC 3.97 L (4.20-5.40) 10^6/uL Hgb 12.6 (12.0-16.0) g/dL Hct 37.3 (36.0-48.0) % MCV 94.0 (81.0-99.0) fL MCH 31.7 (26.7-34.0) pg MCHC 33.8 (29.9-35.2) g/dL RDW 14.0 (11.0-15.0) % Plt Count 292 (150-450) 10^3/uL MPV 10.3 (9.5-13.5) fL Neut % (Auto) 65.7 (43.0-75.0) % Lymph % (Auto) 19.7 L (20.5-60.0) % Jennings % (Auto) 12.3 H (1.7-12.0) % Eos % (Auto) 1.1 (0.9-7.0) % Baso % (Auto) 0.9 (0.2-2.0) % Neut # (Auto) 4.9 (1.4-6.5) 10^3/uL Lymph # (Auto) 1.5 (1.2-3.8) 10^3/uL Jennings # (Auto) 0.9 H (0.3-0.8) 10^3/uL Eos # (Auto) 0.1 (0.0-0.7) 10^3/uL Baso # (Auto) 0.1 (0.0-0.1) 10^3/uL Abs Immat Gran (auto) 0.02 (0.00-0.03) 10^3/uL Imm/Tot Granulo (auto) 0.3 (0.0-0.5) % PT 14.0 H (9.0-11.6) sec INR 1.36 Sodium 139 (136-145) mmol/L Potassium 3.2 L (3.5-5.1) mmol/L Chloride 101 (98-107) mmol/L Carbon Dioxide 25.5 (21.0-32.0) mmol/L Anion Gap 15.7 BUN 20.0 H (7.0-18.0) mg/dL Creatinine 0.92 (0.55-1.02) mg/dL Est GFR ( Amer) >60 (>=60) Est GFR (Non-Af Amer) >60 (>=60) BUN/Creatinine Ratio 21.7 Glucose 82 (74-106) mg/dL Calcium 9.0 (8.5-10.1) mg/dL Total Bilirubin 0.5 (0.2-1.0) mg/dL AST 33 (15-37) U/L ALT 36 (14-59) U/L Alkaline Phosphatase 146 H (46-116) U/L Troponin I High Sens 5.1 (4.0-51.3) pg/mL Total Protein 7.4 (6.4-8.2) g/dL Albumin 3.6 (3.4-5.0) g/dL Globulin 3.8 g/dL Albumin/Globulin Ratio 0.9 Lipase 46.0 (16.0-77.0) U/L Urine Color Lt. yellow (YELLOW) Urine Clarity Clear (CLEAR) Urine pH 5.5 (5.0-9.0) Ur Specific [place] <=1.005 A (1.005-1.025) Urine Protein Negative (NEG/TRACE) mg/dL Urine Glucose (UA) Negative (NEGATIVE) mg/dL Urine Ketones Negative (NEGATIVE) mg/dL Urine Occult Blood Negative (NEGATIVE) Urine Nitrite Negative (NEGATIVE) Urine Bilirubin Negative (NEGATIVE) Urine Urobilinogen 0.2 (0.2-1.0) EU/dL Ur Leukocyte Esterase Negative (NEGATIVE) Discharge Plan Discharge Chief Complaint: Abdominal Pain Clinical Impression: Acute dehydration, Abdominal pain, Kidney calculi, Acute hypokalemia Patient Disposition: Admitted as Observation Time of Disposition Decision: 12:33
[2023-11-23 11:09] LABS: Basophils Absolute Auto 0.1 10^3/uL (0.0-0.1); Basophils Percent Auto 0.9 % (0.2-2.0); Eosinophils Absolute Auto 0.1 10^3/uL (0.0-0.7); Eosinophils Percent Auto 1.1 % (0.9-7.0); Hematocrit 37.3 % (36.0-48.0); Hemoglobin 12.6 g/dL (12.0-16.0); Immature Granulocytes Abs Auto 0.02 10^3/uL (0.00-0.03); Immature Granulocytes Pct Auto 0.3 % (0.0-0.5); Lymphocytes Absolute Auto 1.5 10^3/uL (1.2-3.8); Lymphocytes Percent Auto 19.7 % (20.5-60.0); Mean Corpuscular HGB Conc 33.8 g/dL (29.9-35.2); Mean Corpuscular Hemoglobin 31.7 pg (26.7-34.0); Mean Platelet Volume 10.3 fL (9.5-13.5); Monocytes Absolute Auto 0.9 10^3/uL (0.3-0.8); Monocytes Percent Auto 12.3 % (1.7-12.0); Neutrophils Absolute Auto 4.9 10^3/uL (1.4-6.5); Neutrophils Percent Auto 65.7 % (43.0-75.0); Platelet Count 292 10^3/uL (150-450); Red Blood Count 3.97 10^6/uL (4.20-5.40); White Blood Count 7.4 10^3/uL (4.0-11.0)
[2023-11-23 11:27] LABS: Alanine Aminotransferase 36 U/L (14-59); Albumin Globulin Ratio 0.9; Albumin Level 3.6 g/dL (3.4-5.0); Alkaline Phosphatase 146 U/L (46-116); Anion Gap 15.7; Aspartate Amino Transferase 33 U/L (15-37); BUN Creatinine Ratio 21.7; Bilirubin Total 0.5 mg/dL (0.2-1.0); Carbon Dioxide 25.5 mmol/L (21.0-32.0); Chloride 101 mmol/L (98-107); Estimated GFR (African America >60 (>=60); Estimated GFR (Non-African Ame >60 (>=60); Globulin 3.8 g/dL; Glucose 82 mg/dL (74-106); INR 1.36; Potassium 3.2 mmol/L (3.5-5.1); Sodium 139 mmol/L (136-145); Total Protein 7.4 g/dL (6.4-8.2); Troponin I High Sensitivity 5.1 pg/mL (4.0-51.3)
[2023-11-23] MEDS: 0.9 % SODIUM CHLORIDE 1,000 ML 1000 ML IV (11:38)
[2023-11-23] MEDS: KETOROLAC TROMETHAMINE 30 MG/ML VIAL 15 MG IVP (11:39)
[2023-11-23] MEDS: HYDROMORPHONE HCL 0.5 MG/0.5 ML SYRINGE 0.25 MG IV ×2 (11:39→12:37)
[2023-11-23] MEDS: ONDANSETRON PF 4 MG/2 ML VIAL IV ×3 (11:39→21:11)
[2023-11-23 11:53] LABS: Bilirubin Urine NEGATIVE (NEGATIVE); Blood Urine NEGATIVE (NEGATIVE); Clarity Urine CLEAR (CLEAR); Color Urine LT. YELLOW (YELLOW); Glucose Urine UA NEGATIVE (NEGATIVE); Ketones Urine NEGATIVE (NEGATIVE); Leukocyte Esterase Urine NEGATIVE (NEGATIVE); Nitrite Urine NEGATIVE (NEGATIVE); Protein Urine NEGATIVE (NEG/TRACE); Specific Gravity Urine <=1.005 (1.005-1.025); Urobilinogen Urine 0.2 EU/dL (0.2-1.0); pH Urine 5.5 (5.0-9.0)
[2023-11-23 11:55] LABS: Urine Microscopic Indicated NO
--- NOTE | 2023-11-23 12:55 | P.HP_ITS ---
HPI H&P: HPI History of Present Illness Chief complaint: ABDOMINAL PAIN, BACK PAIN, CLINIC REFERRAL Narrative: Patient was seen and evaluated in the office, increasing abdominal pain. Consistent with her history of diverticulitis. Recurrent emesis. Unable to do direct admission. In ER found to have significant dehydration with elevated BUN, low potassium, concentrated urine, CT scan without evidence of diverticulitis but unable to do with contrast. When I saw patient she was resting uncomfortably in the bed, secondary to pain, Opioid HPI Opioid Management Most Recent Pain and Opioid Data: Last Pain Scale 10 11/23/23 12:37 Last Pain Intensity 5 01/18/23 09:14 Last MAR Pain Assessment 11/23/23 12:37 Review of Systems ROS Status of ROS 10 or more systems reviewed and unremark able except as noted in history and below [facility] Medical History (Updated 11/23/23 @ 12:33 by Jade Shine MD) Acute pancreatitis ?K85.90 - Acute pancreatitis without necrosis or infection, unspecified (ICD- 10) Gastritis ?K29.70 - Gastritis, unspecified, without bleeding (ICD-10) Intractable abdominal pain ?R10.9 - Unspecified abdominal pain (ICD-10) Ida filter in place ?Z95.828 - Presence of other vascular implants and grafts (ICD-10) Diverticulitis ?K57.92 - Diverticulitis of intestine, part unspecified, without perforation or abscess without bleeding (ICD-10) Gastroenteritis ?K52.9 - Noninfective gastroenteritis and colitis, unspecified (ICD-10) Stroke ?I63.9 - Cerebral infarction, unspecified (ICD-10) Migraine ?G43.909 - Migraine, unspecified, not intractable, without status migrainosus (ICD-10) Fibromyalgia syndrome ?M79.7 - Fibromyalgia (ICD-10) Thoracic outlet syndrome ?G54.0 - Brachial plexus disorders (ICD-10) Protein S deficiency ?D68.59 - Other primary thrombophilia (ICD-10) Surgical History (Updated 12/14/22 @ 10:46 by Vangie Mason) H/O neck surgery ?Z98.890 - Other specified postprocedural states (ICD-10) H/O: hysterectomy ?Z90.710 - Acquired absence of both cervix and uterus (ICD-10) H/O knee surgery ?Z98.890 - Other specified postprocedural states (ICD-10) History of ankle surgery ?Z98.890 - Other specified postprocedural states (ICD-10) Hx of appendectomy ?Z90.49 - Acquired absence of other specified parts of digestive tract (ICD- 10) Family History (Updated 12/14/22 @ 10:47 by Vangie Mason) Father Family history of cancer Mother Family history of cancer Sister Family history of cancer Brother Family history of diabetes mellitus Social History (Updated 12/14/22 @ 10:49 by Vangie Mason) Within the past year, how often did you have a drink containing alcohol: never Within the past year, how many standard drinks containing alcohol did you have on a typical day: 1 or 2 Within the past year, how often did you have six or more drinks on one occasion: never Total score: 0 Score interpretation: A score less than 3 is consistent with normal alcohol consumption. Smoking status: Never smoker Non-prescribed substance use: denies use Previous occupational history: disabled Highest level of school completed/degree received: Associate degree: occupational, technical, vocational program Are you now , , , , never or living with a partner: In a typical week, how many times do you talk on the telephone with family, friends, or neighbors: twice per week How often do you get together with friends or relatives: once per week How often do you attend rastafari or episcopalian services: 4 or more times per year Do you belong to any clubs or organizations such as rastafari groups unions, fraternal or athletic groups, or school groups: no Total score: 2 Score interpretation: A score of greater than or equal to 2 indicates the lowest level of social isolation. Little interest or pleasure in doing things: not at all Feeling down, depressed, or hopeless: not at all Feel stressed/tense/nervous/anxious/difficulty sleeping: only a little Gender Identity: female Meds Home Medications and Allergies Home Medications ?Medication ?Instructions ?Recorded ?Confirmed ?Type cyclobenzaprine 10 mg tablet 20 mg PO BEDTIME 12/14/22 11/23/23 History temazepam 30 mg capsule 30 mg PO BEDTIME 12/14/22 11/23/23 History omeprazole 40 mg capsule,delayed 40 mg PO QD 30 days #30 caps 12/17/22 11/23/23 Rx release hydroxyzine pamoate 25 mg capsule 25 mg PO Q6H PRN anxiety 01/17/23 11/23/23 History (Vistaril) amlodipine 5 mg tablet 5 mg PO DAILY 06/01/23 11/23/23 History hyoscyamine sulfate 0.125 mg 0.125 mg PO Q6H PRN abdominal pain 06/01/23 11/23/23 Rx sublingual tablet (Levsin/SL) #20 tabs nabumetone 750 mg tablet 750 mg PO BID PRN pain #8 tabs 06/01/23 11/23/23 Rx promethazine 25 mg tablet 25 mg PO Q6H PRN nausea and 06/01/23 11/23/23 Rx vomiting #14 tabs warfarin 4 mg tablet 4 mg PO DAILY 06/01/23 11/23/23 History Allergies Allergy/AdvReac Type Severity Reaction Status Date / Time prochlorperazine Allergy Intermediate Unknown Verified 11/23/23 10:40 [From Compazine] Iodinated Contrast Media AdvReac Severe Anaphylaxis Verified 11/23/23 10:40 ivp Allergy Severe Rash Uncoded 11/23/23 10:40 Exam Constitutional Vital Signs, click to edit/add: Last Vital Signs Temp 97.9 F 11/23/23 10:40 Pulse 90 11/23/23 12:18 Resp 16 11/23/23 11:30 BP 134/104 H 11/23/23 12:18 Pulse Ox 100 11/23/23 12:18 O2 Del Method Room Air 11/23/23 10:40 Documenting provider has reviewed patient's vital signs: yes Common normals: apparent distress Lymph Lymphatic: no lymphadenopathy noted Respiratory Common normals: normal respiratory effort and no retractions Cardio Common normals: regular rate and regular rhythm GI Common normals: Normal to inspection, nondistended, normoactive bowel sounds present and soft to palpation; tender (Tenderness left lower quadrant) Neuro Common normals: oriented x3, CN's II-XII intact bilaterally and moves all extremities Results Labs Labs: Short CBC 11/23/23 Range/Units 10:02 WBC 7.4 (4.0-11.0) 10^3/uL Hgb 12.6 (12.0-16.0) g/dL Hct 37.3 (36.0-48.0) % Plt Count 292 (150-450) 10^3/uL BMP 11/23/23 10:02 Sodium 139 Potassium 3.2 L Chloride 101 Carbon Dioxide 25.5 BUN 20.0 H Creatinine 0.92 Glucose 82 Calcium 9.0 Liver Function 11/23/23 Range/Units 10:02 Total Bilirubin 0.5 (0.2-1.0) mg/dL AST 33 (15-37) U/L ALT 36 (14-59) U/L Alkaline Phosphatase 146 H (46-116) U/L Albumin 3.6 (3.4-5.0) g/dL Urine 11/23/23 Range/Units 11:45 Urine Color Lt. yellow (YELLOW) Urine Clarity Clear (CLEAR) Urine pH 5.5 (5.0-9.0) Ur Specific Ed[place] <=1.005 A (1.005-1.025) Urine Protein Negative (NEG/TRACE) mg/dL Urine Glucose (UA) Negative (NEGATIVE) mg/dL Assessment and Plan Assessment and Plan (1) Acute hypokalemia: (2) Kidney calculi: (3) Abdominal pain: (4) Acute dehydration: Plan Admission findings: Patient with failed outpatient treatment home medications of Phenergan and Levsin. Unable to improve nausea vomiting secondary to acute diverticulitis. Unable to documented on CT scan secondary to no IV contrast or oral contrast. Patient medical workup and treatment of same with significant elevation in her BUN and a decrease in her potassium consistent with dehydration Left lower quad abdominal pain consistent with diverticulitis-start Zosyn, Levsin, Phenergan for nausea., Demerol for pain control, she has had elevation in her liver function test with Dilaudid in the past. Not at lower doses Acute dehydration-IV fluids, serial labs in AM Hypokalemia-supplement, as needed, check on labs in AM Protein S deficiency-continue with Coumadin, monitor labs daily, likely to increase with IV antibiotics Renal calculi-nonobstructing, check on urine sample Insomnia-continue with home medications Admission status: Will place patient observation initially, medically necessary treatment will likely span 1 midnight. In the past she has had difficult times with controlling pain with diverticulitis, requiring 3 to 4-day hospitalization, started off as observation, but medically necessary treatment may span 2 midnights will change status tomorrow.
[2023-11-23 13:19] LABS: Amphetamine Screen Urine NEGATIVE (NEGATIVE); Barbiturates Screen Urine NEGATIVE (NEGATIVE); Benzodiazepines Screen Urine NEGATIVE (NEGATIVE); Buprenorphine Screen Urine NEGATIVE (NEGATIVE); Cannabinoid Screen Urine NEGATIVE (NEGATIVE); Cocaine Screen Urine NEGATIVE (NEGATIVE); Methadone Screen Urine NEGATIVE (NEGATIVE); Methamphetamines Screen Urine NEGATIVE (NEGATIVE); Opiate Screen Urine NEGATIVE (NEGATIVE); Oxycodone Screen Urine NEGATIVE (NEGATIVE); Phencyclidine Screen Urine NEGATIVE (NEGATIVE); Tricyclic Antidepressant Urine POSITIVE (NEGATIVE)
[2023-11-23 13:25] LABS: Lactate/Lactic Acid 1.6 mmol/L (0.4-2.0)
[2023-11-23] MEDS: PANTOPRAZOLE SODIUM 40 MG VIAL IV (14:26)
[2023-11-23] MEDS: 0.9 % SODIUM CHLORIDE 1,000 ML 100 ML IV (14:26)
[2023-11-23] MEDS: PIPERACILLIN SODIUM/TAZOBACTAM 3.375 GM in 0.9 % SODIUM CHLORIDE 50 ML IV ×2 (14:26→21:20)
[2023-11-23] MEDS: MEPERIDINE HCL/PF 25 MG/ML VIAL 6.25 MG IVP ×2 (14:27→21:11)
[2023-11-23] MEDS: WARFARIN SODIUM 4 MG TABLET PO (16:14)
[2023-11-23] MEDS: HYDROXYZINE PAMOATE 25 MG CAPSULE PO ×2 (16:14→23:49)
[2023-11-23] MEDS: CYCLOBENZAPRINE HCL 10 MG TABLET 20 MG PO (21:10)
[2023-11-23] MEDS: TEMAZEPAM 15 MG CAPSULE 30 MG PO (21:10)
[2023-11-24] VITALS (14 sets, daily range): BP systolic 101–155; BP diastolic 62–85; PULSE 73–94; TEMP 36.5–36.7; O2SAT 92–98
[2023-11-24] MEDS: MEPERIDINE HCL/PF 25 MG/ML VIAL 6.25 MG IVP ×5 (03:28→21:57)
[2023-11-24] MEDS: ONDANSETRON PF 4 MG/2 ML VIAL IV ×5 (03:28→21:58)
[2023-11-24] MEDS: 0.9 % SODIUM CHLORIDE 1,000 ML 100 ML IV ×2 (03:34→17:38)
[2023-11-24] MEDS: PIPERACILLIN SODIUM/TAZOBACTAM 3.375 GM in 0.9 % SODIUM CHLORIDE 50 ML IV ×3 (05:51→21:58)
[2023-11-24 06:07] LABS: Basophils Absolute Auto 0.1 10^3/uL (0.0-0.1); Basophils Percent Auto 1.3 % (0.2-2.0); Eosinophils Absolute Auto 0.2 10^3/uL (0.0-0.7); Eosinophils Percent Auto 3.8 % (0.9-7.0); Hemoglobin 10.7 g/dL (12.0-16.0); Lymphocytes Percent Auto 20.8 % (20.5-60.0); Mean Corpuscular HGB Conc 33.4 g/dL (29.9-35.2); Mean Corpuscular Hemoglobin 31.8 pg (26.7-34.0); Mean Platelet Volume 10.4 fL (9.5-13.5); Monocytes Absolute Auto 0.6 10^3/uL (0.3-0.8); Neutrophils Absolute Auto 2.9 10^3/uL (1.4-6.5); Neutrophils Percent Auto 61.1 % (43.0-75.0); Platelet Count 260 10^3/uL (150-450); Red Blood Count 3.37 10^6/uL (4.20-5.40); Red Cell Distribution Width 14.1 % (11.0-15.0); White Blood Count 4.8 10^3/uL (4.0-11.0)
[2023-11-24 06:27] LABS: Alanine Aminotransferase 76 U/L (14-59); Albumin Globulin Ratio 0.9; Albumin Level 2.7 g/dL (3.4-5.0); Alkaline Phosphatase 142 U/L (46-116); Anion Gap 9.1; Aspartate Amino Transferase 86 U/L (15-37); BUN Creatinine Ratio 17.8; Bilirubin Total 0.5 mg/dL (0.2-1.0); Carbon Dioxide 29.4 mmol/L (21.0-32.0); Chloride 106 mmol/L (98-107); Estimated GFR (African America >60 (>=60); Estimated GFR (Non-African Ame >60 (>=60); Glucose 93 mg/dL (74-106); Potassium 3.5 mmol/L (3.5-5.1); Sodium 141 mmol/L (136-145); Total Protein 5.7 g/dL (6.4-8.2)
[2023-11-24 06:34] LABS: INR 1.36
[2023-11-24] MEDS: PANTOPRAZOLE SODIUM 40 MG VIAL IV (09:27)
--- NOTE | 2023-11-24 09:46 | P.PN_ITS ---
Progress Note: Subjective Subjective Interval history: Pain increased overnight. Exam Constitutional Vital Signs, click to edit/add: Last Vital Signs Temp 98.1 F 11/24/23 07:46 Pulse 85 11/24/23 07:46 Resp 16 11/24/23 08:00 BP 144/77 H 11/24/23 07:46 Pulse Ox 95 11/24/23 08:00 O2 Del Method Room Air 11/24/23 07:46 Documenting provider has reviewed patient's vital signs: yes Common normals: apparent distress Lymph Lymphatic: no lymphadenopathy noted Respiratory Common normals: normal respiratory effort and no retractions Cardio Common normals: regular rate and regular rhythm GI Common normals: Normal to inspection, nondistended, normoactive bowel sounds present and soft to palpation; tender (Tenderness left lower quadrant -also upper abdomen today.) Neuro Common normals: oriented x3, CN's II-XII intact bilaterally and moves all extremities Progress Note: Objective Labs Labs: Short CBC 11/23/23 11/24/23 Range/Units 10:02 05:00 WBC 7.4 4.8 (4.0-11.0) 10^3/uL Hgb 12.6 10.7 L (12.0-16.0) g/dL Hct 37.3 32.0 L (36.0-48.0) % Plt Count 292 260 (150-450) 10^3/uL BMP 11/23/23 11/24/23 10:02 05:00 Sodium 139 141 Potassium 3.2 L 3.5 Chloride 101 106 Carbon Dioxide 25.5 29.4 BUN 20.0 H 13.0 Creatinine 0.92 0.73 Glucose 82 93 Calcium 9.0 8.0 L Liver Function 11/23/23 11/24/23 Range/Units 10:02 05:00 Total Bilirubin 0.5 0.5 (0.2-1.0) mg/dL AST 33 86 H (15-37) U/L ALT 36 76 H (14-59) U/L Alkaline Phosphatase 146 H 142 H (46-116) U/L Albumin 3.6 2.7 L (3.4-5.0) g/dL Urine 11/23/23 Range/Units 11:45 Urine Color Lt. yellow (YELLOW) Urine Clarity Clear (CLEAR) Urine pH 5.5 (5.0-9.0) Ur Specific [place]kean <=1.005 A (1.005-1.025) Urine Protein Negative (NEG/TRACE) mg/dL Urine Glucose (UA) Negative (NEGATIVE) mg/dL Progress Note: A&P Assessment and Plan (1) Acute hypokalemia: (2) Kidney calculi: (3) Abdominal pain: (4) Acute dehydration: Plan Admission findings: Patient with failed outpatient treatment home medications of Phenergan and Levsin. Unable to improve nausea vomiting secondary to acute diverticulitis. Unable to documented on CT scan secondary to no IV contrast or oral contrast. Patient medical workup and treatment of same with significant elevation in her BUN and a decrease in her potassium consistent with dehydration Left lower quad abdominal pain consistent with diverticulitis-continue current antibiotics. Acute pancreatitis-elevated lipase this morning. Also elevated liver function tests. Change patient to n.p.o. status. Consider repeating CT scan versus ultrasound tomorrow. Will need to be premedicated so holding off on that for to day. Acute dehydration-dehydration appears improved today. Hypokalemia-supplement, as needed, check on labs in AM Protein S deficiency-continue with Coumadin, maintain oral Coumadin today. Renal calculi-nonobstructing, check on urine sample Insomnia-continue with home medications Admission status: Plan was to have patient likely discharged home today. Pain is worse. Now with pancreatitis and elevated liver function test-medically necessary treatment will span 2 midnights. Inpatient status.
[2023-11-24] MEDS: WARFARIN SODIUM 4 MG TABLET 8 MG PO (17:38)
[2023-11-25] VITALS (15 sets, daily range): BP systolic 112–130; BP diastolic 62–75; PULSE 77–96; TEMP 36.6–36.8; O2SAT 92–99
[2023-11-25] MEDS: MEPERIDINE HCL/PF 25 MG/ML VIAL 6.25 MG IVP ×6 (02:07→22:43)
[2023-11-25] MEDS: ONDANSETRON PF 4 MG/2 ML VIAL IV ×6 (02:07→22:44)
[2023-11-25] MEDS: 0.9 % SODIUM CHLORIDE 1,000 ML 100 ML IV (03:14)
[2023-11-25] MEDS: PIPERACILLIN SODIUM/TAZOBACTAM 3.375 GM in 0.9 % SODIUM CHLORIDE 50 ML IV ×3 (05:13→21:21)
[2023-11-25 06:21] LABS: Basophils Absolute Auto 0.1 10^3/uL (0.0-0.1); Eosinophils Absolute Auto 0.2 10^3/uL (0.0-0.7); Eosinophils Percent Auto 4.4 % (0.9-7.0); Hematocrit 35.1 % (36.0-48.0); Hemoglobin 11.6 g/dL (12.0-16.0); Immature Granulocytes Abs Auto 0.01 10^3/uL (0.00-0.03); Immature Granulocytes Pct Auto 0.2 % (0.0-0.5); Lymphocytes Absolute Auto 1.2 10^3/uL (1.2-3.8); Mean Corpuscular Hemoglobin 31.4 pg (26.7-34.0); Mean Corpuscular Volume 94.9 fL (81.0-99.0); Mean Platelet Volume 10.3 fL (9.5-13.5); Monocytes Absolute Auto 0.7 10^3/uL (0.3-0.8); Monocytes Percent Auto 14.4 % (1.7-12.0); Neutrophils Absolute Auto 2.8 10^3/uL (1.4-6.5); Platelet Count 285 10^3/uL (150-450)
[2023-11-25 06:25] LABS: INR 1.58
[2023-11-25 06:31] LABS: Alanine Aminotransferase 64 U/L (14-59); Albumin Globulin Ratio 0.8; Alkaline Phosphatase 157 U/L (46-116); Anion Gap 9.8; Aspartate Amino Transferase 52 U/L (15-37); BUN Creatinine Ratio 8.1; Bilirubin Total 0.4 mg/dL (0.2-1.0); Calcium 8.4 mg/dL (8.5-10.1); Carbon Dioxide 29.5 mmol/L (21.0-32.0); Chloride 104 mmol/L (98-107); Estimated GFR (African America >60 (>=60); Estimated GFR (Non-African Ame >60 (>=60); Globulin 3.6 g/dL; Glucose 81 mg/dL (74-106); Potassium 3.3 mmol/L (3.5-5.1); Sodium 140 mmol/L (136-145); Total Protein 6.6 g/dL (6.4-8.2)
[2023-11-25] MEDS: PANTOPRAZOLE SODIUM 40 MG VIAL IV (08:29)
--- NOTE | 2023-11-25 08:49 | PC.NURSE ---
Nurse Vangie notified of pts SpO2 bouncing around in the mid to high 80% range then quickly going to 96-98%. Nurse states pts probably moving around,. Nurse notified and encouraged to check on pt and placement of SpO2 monitor.
--- NOTE | 2023-11-25 09:49 | P.PN_ITS ---
Progress Note: Subjective Subjective Interval history: Abdominal pain somewhat better but nausea vomiting persisting Exam Constitutional Vital Signs, click to edit/add: Last Vital Signs Temp 97.9 F 11/25/23 08:00 Pulse 96 H 11/25/23 08:00 Resp 18 11/25/23 08:00 BP 127/73 11/25/23 08:00 Pulse Ox 98 11/25/23 08:26 O2 Del Method Room Air 11/25/23 08:00 Documenting provider has reviewed patient's vital signs: yes Common normals: apparent distress (Just mild distress this morning overall appears somewhat improved) Lymph Lymphatic: no lymphadenopathy noted Respiratory Common normals: normal respiratory effort and no retractions Cardio Common normals: regular rate and regular rhythm GI Common normals: Normal to inspection, nondistended, normoactive bowel sounds present and soft to palpation; tender (Tenderness persisting but improved) Neuro Common normals: oriented x3, CN's II-XII intact bilaterally and moves all extremities Progress Note: Objective Labs Labs: Short CBC 11/25/23 Range/Units 06:00 WBC 5.0 (4.0-11.0) 10^3/uL Hgb 11.6 L (12.0-16.0) g/dL Hct 35.1 L (36.0-48.0) % Plt Count 285 (150-450) 10^3/uL BMP 11/25/23 06:00 Sodium 140 Potassium 3.3 L Chloride 104 Carbon Dioxide 29.5 BUN 6.0 L Creatinine 0.74 Glucose 81 Calcium 8.4 L Liver Function 11/25/23 Range/Units 06:00 Total Bilirubin 0.4 (0.2-1.0) mg/dL AST 52 H (15-37) U/L ALT 64 H (14-59) U/L Alkaline Phosphatase 157 H (46-116) U/L Albumin 3.0 L (3.4-5.0) g/dL Progress Note: A&P Assessment and Plan (1) Acute hypokalemia: (2) Kidney calculi: (3) Abdominal pain: (4) Acute dehydration: Plan Admission findings: Patient with failed outpatient treatment home medications of Phenergan and Levsin. Unable to improve nausea vomiting secondary to acute diverticulitis. Unable to documented on CT scan secondary to no IV contrast or oral contrast. Patient medical workup and treatment of same with significant elevation in her BUN and a decrease in her potassium consistent with dehydration Left lower quad abdominal pain consistent with diverticulitis-continue current antibiotics. White blood cell count remains normal, maintain current antibiotics 1 more day Acute pancreatitis-amylase lipase improved liver function test still elevated but improved. Will advance diet. If she can tolerate eating today should we can discharge her safely home tomorrow. Acute dehydration-dehydration appears improved today. Hypokalemia-supplement, continue to supplement Protein S deficiency-continue with Coumadin, maintain oral Coumadin today.- Spending Renal calculi-nonobstructing, check on urine sample Insomnia-continue with home medications Admission status: Plan was to have patient likely discharged home today. Patient developed pancreatitis on day 2. Better today. But not improved to the point that she can tolerate eating. Highly likely she would just return, we will keep 1 additional day of discharge tomorrow if can remain stable and eat some
[2023-11-25] MEDS: AMLODIPINE BESYLATE 5 MG TABLET PO (10:54)
[2023-11-25] MEDS: HYDROXYZINE PAMOATE 25 MG CAPSULE PO (10:58)
[2023-11-25] MEDS: GABAPENTIN 100 MG CAPSULE PO ×2 (14:05→21:21)
[2023-11-25 14:13] LABS: Internal Control Within Normal Limits; Occult Blood Positive
[2023-11-25] MEDS: WARFARIN SODIUM 4 MG TABLET PO (18:20)
[2023-11-25] MEDS: AMITRIPTYLINE HCL 10 MG TABLET 20 MG PO (21:21)
[2023-11-25] MEDS: CYCLOBENZAPRINE HCL 10 MG TABLET 20 MG PO (21:21)
[2023-11-26] VITALS: O2SAT 92
[2023-11-26 02:00] VITALS: O2SAT 95
[2023-11-26] MEDS: MEPERIDINE HCL/PF 25 MG/ML VIAL 6.25 MG IVP ×2 (03:16→08:15)
[2023-11-26] MEDS: ONDANSETRON PF 4 MG/2 ML VIAL IV ×2 (03:16→08:16)
[2023-11-26 04:00] VITALS: BP 130/78; PULSE 80; TEMP 36.6; O2SAT 93; O2SAT 97
[2023-11-26] MEDS: PIPERACILLIN SODIUM/TAZOBACTAM 3.375 GM in 0.9 % SODIUM CHLORIDE 50 ML IV (05:42)
[2023-11-26] MEDS: GABAPENTIN 100 MG CAPSULE PO (05:42)
[2023-11-26 05:58] LABS: Basophils Absolute Auto 0.1 10^3/uL (0.0-0.1); Basophils Percent Auto 0.9 % (0.2-2.0); Eosinophils Absolute Auto 0.3 10^3/uL (0.0-0.7); Eosinophils Percent Auto 5.5 % (0.9-7.0); Hematocrit 34.7 % (36.0-48.0); Hemoglobin 11.5 g/dL (12.0-16.0); Immature Granulocytes Abs Auto 0.01 10^3/uL (0.00-0.03); Immature Granulocytes Pct Auto 0.2 % (0.0-0.5); Lymphocytes Absolute Auto 1.3 10^3/uL (1.2-3.8); Lymphocytes Percent Auto 23.1 % (20.5-60.0); Mean Corpuscular HGB Conc 33.1 g/dL (29.9-35.2); Mean Corpuscular Hemoglobin 31.6 pg (26.7-34.0); Mean Corpuscular Volume 95.3 fL (81.0-99.0); Mean Platelet Volume 10.2 fL (9.5-13.5); Monocytes Absolute Auto 0.7 10^3/uL (0.3-0.8); Monocytes Percent Auto 12.1 % (1.7-12.0); Neutrophils Absolute Auto 3.4 10^3/uL (1.4-6.5); Neutrophils Percent Auto 58.2 % (43.0-75.0); Platelet Count 279 10^3/uL (150-450); Red Blood Count 3.64 10^6/uL (4.20-5.40); Red Cell Distribution Width 14.3 % (11.0-15.0); White Blood Count 5.8 10^3/uL (4.0-11.0)
[2023-11-26 06:00] VITALS: O2SAT 91
[2023-11-26 06:09] LABS: INR 2.16; Prothrombin Time 21.2 sec (9.0-11.6)
[2023-11-26 06:13] LABS: Alanine Aminotransferase 50 U/L (14-59); Albumin Globulin Ratio 0.9; Albumin Level 2.9 g/dL (3.4-5.0); Alkaline Phosphatase 143 U/L (46-116); Anion Gap 9.2; Aspartate Amino Transferase 34 U/L (15-37); BUN Creatinine Ratio 9.9; Bilirubin Total 0.3 mg/dL (0.2-1.0); Calcium 8.2 mg/dL (8.5-10.1); Carbon Dioxide 30.3 mmol/L (21.0-32.0); Chloride 104 mmol/L (98-107); Estimated GFR (African America >60 (>=60); Estimated GFR (Non-African Ame >60 (>=60); Globulin 3.4 g/dL; Glucose 86 mg/dL (74-106); Potassium 3.5 mmol/L (3.5-5.1); Sodium 140 mmol/L (136-145); Total Protein 6.3 g/dL (6.4-8.2)
[2023-11-26 07:57] VITALS: O2SAT 91
[2023-11-26] MEDS: AMLODIPINE BESYLATE 5 MG TABLET PO (08:15)
[2023-11-26] MEDS: PANTOPRAZOLE SODIUM 40 MG VIAL IV (08:15)
[2023-11-26 08:20] VITALS: BP 143/77; PULSE 91; TEMP 36.8; O2SAT 94
--- OUTSIDE RECORDS SUMMARY | 2023-11-26 08:53 | XMS_ITS | CCD ---
Author Organization [facility] Care Team Providers Care Hotel Assistant Manager Name Role Phone SHAD, ABDULAZIM Unavailable Unavailable SHAD, ABDULAZIM Unavailable Unavailable HOY, EZEKIEL Unavailable Unavailable HOY, EZEKIEL Unavailable Unavailable VT Unavailable Unavailable SHAD, ABDULAZIM Unavailable Unavailable VT Unavailable Unavailable AGUSTO RON Unavailable Unavailable SHAD, ABDULAZIM Unavailable Unavailable SHAD, ABDULAZIM Unavailable Unavailable SHAD, ABDULAZIM Unavailable Unavailable HOY, EZEKIEL Unavailable Unavailable NAWRAS, ALI T Unavailable Unavailable NAWRAS, ALI T Unavailable Unavailable HOY, EZEKIEL Unavailable Unavailable HOY, EZEKIEL Unavailable Unavailable VT Unavailable Unavailable NAWRAS, ALI T Unavailable Unavailable VT Unavailable Unavailable AGUSTO RON Unavailable Unavailable Ezekiel Deras Primary Care Physician DR EZEKIEL TELLO Attending Unavailable NONI ., DR FALCON Admitting Unavailable DR EZEKIEL TELLO Primary Care Unavailable KOBE CHOUDHARY Attending Unavailable KOBE CHOUDHARY Admitting Unavailable MARLON ARREOLA Consulting Unavailable DR EZEKIEL TELLO Primary Care Unavailable KOBE CHOUDHARY Consulting Unavailable DR BRUCE HILL Consulting Unavailable ZECHARIAH MCDONALD Admitting Unavailable ZECHARIAH MCDONALD Attending Unavailable DR EZEKIEL TELLO Primary Care Unavailable DR RENATO CANO Consulting Unavailable JANNETH, DR SARAH Doyle Admitting Unavailrom LAGUNAS, DR SARAH Doyle Attending UnavailDR EZEKIEL Crw[place]ord Primary Care Unavailable JENIFER SAPP Attending Unavailable JENIFER SAPP Admitting Unavailable JENIFER SAPP Consulting Unavailable DR EZEKIEL TELLO Primary Care Unavailable STEVE BENÍTEZ Consulting Unavailable DR EZEKIEL TELLO Attending Unavailable DR EZEKIEL TELLO Primary Care Unavailable DR EZEKIEL TELLO Admitting Unavailable DR EZEKIEL TELLO Consulting Unavailable JANNETH, DR SARAH Doyle Consulting Unavailrom HILL, DR BRUCE Lr Consulting Unavailable EZEKIEL DAVIDSON Consulting Unavailable LINAU, SOLO Consulting Unavailable JANIE QUIJANO Consulting Unavailable [...] Consulting Unavailable VICK ., ALICIA Consulting Unavailable OJHN, MARGARITA Consulting Unavailable FILIPPONE, KALEY Consulting Unavailable [...] HOY ., DR FALCON Consulting Unavailable GONZÁLES .DR BEVERLY Consulting Unavailable WEST, DR TATIANA Mcdonough Consulting [...] ., NARENDRANATH Admitting Tawny vailable LAKSHMIPATHY ., NARENDCASSANDRAATH Attending Tawny [...] Unavailable HOY ., DR FALCON Consulting Unavailable SERGIO, DR BRUCE Lr Consulting Unavailable DES .REBECCA [...] DR FARNSWORTH Attending Unavailable MARKER ., DR FARSNWORTH Admitting Unavailable HOY ., DR FALCON Primary [...] ., NARENDRANATH Consulting Tawny vailable LAKSHMIPATHY ., MARCELA Attending Tawny vailable HOY ., DR FALCON Primary Care Unavailable LAKSHMIPATHY ., MARCELA Admitting Tawny vailable HOY ., DR FALCON Primary Care Unavailable MALCOLM ., DR FELIX Rahman Attending Unavailable MALCOLM ., DR FELIX Rahman Admitting Unavailable MALCOLM ., DR FELIX Rahman Consulting Unavailable MALCOLM ., DR FELIX Rahman Admitting Unavailable MALCOLM ., DR FELIX Rahman Attending Unavailable MALCOLM ., DR FELIX Rahman Consulting Unavailable HOY ., DR FALCON Primary Care Unavailable TENNILLE LARA Referring Unavailable ALISON, MOHAMED F Attending Unavailable ALISON, MOHAMED F Referring Unavailable HOY, EZEKIEL M Primary Care Unavailable ALESSIA WHITE Attending Unavailable HOY, EZEKIEL M Referring Unavailable HOY, EZEKIEL M Primary Care Unavailable ALISON, MOHAMED F Attending Unavailable HOY, EZEKIEL M Referring Unavailable HOY, EZEKIEL M Primary Care Unavailable HOY, EZEKIEL M Referring Unavailable HOY, EZEKIEL M Primary Care Unavailable ALISON, MOHAMED F Attending Unavailable HOY, EZEKIEL M Referring Unavailable HOY, EZEKIEL M Primary Care Unavailable SUKI YOUNGER Attending Unavailable ALISON, MOHAMED F Referring Unavailable HOY, EZEKIEL M Primary Care Unavailable Allergies Allergy Classification Reported Allergen(s) Allergy Type Date of Onset Reaction(s) Facility Baclofen (1 source) Baclofen; Translations: [BACLOFEN] Drug Allergy 08-29-19 [facility] Cephalosporins (antibiotic) (1 source) cefdinir; Translations: [CEFDINIR] Drug Allergy 08-29-19 [facility] Lincosamides (antibiotic) (1 source) Clindamycin; Translations: [CLINDAMYCIN] Drug Allergy 08-29-19 [facility] Opioid Agonists (1 source) Morphine; Translations: [MORPHINE] Drug Allergy 09-28-19 [facility] Prochlorperazine (1 source) Prochlorperazine; Translations: [PROCHLORPERAZINE] Drug Allergy 10-14-19 [facility] Unclassified (3 sources) IODINATED CONTRAST MEDIA; Translations: [IODINATED CONTRAST MEDIA] Propensity to adverse reactions to drug (disorder) 10-14-19 [facility] (6 sources) morphine; Translations: [MORPHINE] Drug Allergy 08-05-19 Anaphylaxis (disorder) [facility] Repository (4 sources) prochlorperazine Drug Allergy 02-04-20 09 [facility] Repository (4 sources) Iodinated Contrast Media - IV Dye Drug allergy (disorder) 02-04-20 09 AOF [facility] Repository (3 sources) Baclofen; Translations: [baclofen] Drug Allergy 08-29-19 Anaphylaxis (disorder) [facility] Work Phone: (3 sources) cefdinir; Translations: [cefdinir] Drug Allergy 08-29-19 [facility] (disorder) [facility] Work Phone: (1 source) Contrast media; Translations: [contrast media (iodine-based)] Drug allergy Anaphylaxis (disorder) [facility] Work Phone: (3 sources) Prochlorperazine; Translations: [prochlorperazine] Drug Allergy 10-14-19 18 [facility] (disorder) [facility] Work Phone: (2 sources) Clindamycin Drug Allergy 10-05-19 17 [place] Repository (2 sources) Dihydroergotamine Drug Allergy 07-13-19 21 [facility] Repository (1 source) HYDROmorphone Drug Allergy 05-11-19 [facility] Repository (1 source) Valproate Drug Allergy [facility] Repository (1 source) ALLERGIES NOT ON FILE; Translations: [ALLERGIES NOT ON FILE] Propensity to adverse reactions (disorder) [facility] Repository (2 sources) Clindamycin; Translations: [CLINDAMYCIN] Drug Allergy 08-29-19 [facility] Medications Current Medications Medication Drug Class(es) Dates Sig (Normalized) Sig (Original) albuterol 0.83 mg/ml inhalation solution (1 source) beta2-Adrenergic Agonist Start: 09-23-2021 take 2.5 mg by inhalation four times daily albuterol 0.083% Inh Elvira 3 mL 2.5 mg, 3 mL, NEB, QID, Refill(s) 0 Start Date: 09/23/21 Status: Ordered amylase [id number] unt / lipase 05678 unt / protease 16795 unt delayed release oral capsule (1 source) [...] disease (3 sources) Atherosclerotic heart disease of [place] coronary artery without angina pectoris; Translations: [Coronary [...] 09-23-2021 Chronic Other aftercare (1 source) Other extermination inspector (current) drug therapy; Translations: [OTH PRISON CURRENT DRUG THERAPY] Onset: 3 Episodic Other aftercare (1 source) assisted (current) use of anticoagulants; Translations: [PIZZA BAKER CURRNT USE ANTICOAGULANTS] Onset: 3 Episodic Other aftercare (5 sources) Encounter for therapeutic drug level monitoring; Translations: [ENC THERAPEUTC DRUG LEVL MONITORING] Onset: 3 Episodic Other circulatory disease (1 source) Stricture of artery; Translations: [Stricture of artery] Onset: 4 Chronic Other circulatory disease (2 sources) Personal history of transient ischemic attack (TIA), and cerebral infarction without residual deficits; Translations: [PRSNL HX OF TIA (TIA), AND CEREB INFRC W/O RESID DEFICITS] Onset: 8 Episodic Other circulatory disease (1 source) Orthostatic hypotension 09-23-2021 Episodic Other connective tissue disease (3 sources) Fibromyalgia; Translations: [FIBROMYALGIA] Onset: 8 Episodic Other connective tissue disease (2 sources) Pain in right hand; Translations: [Pain in right hand] Onset: 4 Episodic Other connective tissue disease (2 sources) Pain in left hand; Translations: [Pain in left hand] Onset: 4 Episodic Other gastrointestinal disorders (1 source) Irritable [...] Onset: 3 Episodic Peripheral and visceral atherosclerosis (3 sources) Peripheral vascular disease, unspecified; Translations: [Peripheral vascular disease] Onset: 3 09-23-2021 Chronic Phlebitis; thrombophlebitis and thromboembolism (8 sources) H/O: Deep vein thrombosis; Translations: [Personal [...] BOTH CERVIX AND UTERUS] Onset: 3 Episodic Residual codes; unclassified (1 source) Pain, unspecified; Translations: [Pain, unspecified] Onset: 4 Episodic Spondylosis; intervertebral disc disorders; other back [...] PAIN, UNSPECIFIED] Onset: 2 Unclassified (1 source) Arm Swelling Onset: 4 Unclassified (1 source) testing follow up Onset: 4 Unclassified (1 source) Post-op Peripheral Arterial Bypass Onset: 4 Unclassified (1 source) Error Onset: 3 Varicose [...] Range Facility 36on 10-26-2022 36 Call to [facility] rené martin pt status and was told she had DC to home 10/19. Couldn't confirm that her line was removed. Call to pt and she verified IV was removed upon discharge from [facility]. Normal [facility] 36on 10-10-2022 36 Opat received. Order s confirmed with Analilia at [facility] for meds, labs and EOT. Transferred to [facility] for a follow appt to be scheduled. Normal [facility] CT CHEST WO CONon 08-09-2022 CT CHEST WO CON Normal [facility] NM BONE SC WH BODYon 023 NM BONE SC WH BODY Normal [facility] CBC AUTO DIFFon 07-31-2022 BASO # 0.1 103/ul Normal 0.0-0.1 [facility] Comment on above: Performed By: #### C BC ####[facility] [address] [place] [address]Dr. Lizandro Hemphill Basophils/100 WBC (Bld) 1.3 % Normal 0.2-2.0 [facility] Comment on above: Performed By: #### C BC ####[facility] [address] [place], [place] [address]Dr. Lizandro Hemphill EO # 0.2 103/ul Normal 0.0-0.7 [facility] Comment on above: Performed By: #### C BC ####[facility] Pbpknltysv[address] [place], [place] [address]Dr. Lizandro Hemphill Eosinophils/100 WBC (Bld) 2.4 % Normal 0.9-7.0 [facility] Comment on above: Performed By: #### C BC ####[facility] K[address] [place], [place] [address]Dr. Lizandro Hemphill Erythrocyte distribution width (RBC) [Ratio] 19.4 % Critically high 11.0-15.0 [facility] Comment on above: Performed By: #### C BC ####[facility] E[address]vpw[address] [place], [place] [address]Dr. Lizandro Hemphill Hematocrit (Bld) [Volume fraction] 39.6 % Normal 36.0-48.0 [facility] Comment on above: Performed By: #### C BC ####[facility] F[address]ib[address] [place], [place] [address]Dr. Lizandro Hemphill Hemoglobin (Bld) [Mass/Vol] 12.4 g/dL Normal 12.0-16.0 [facility] Comment on above: Performed By: #### C BC ####[facility] [address] [place], [place] [address]DrCiro Hemphill IG # 0.02 10e3/ul Normal 0.00-0.03 [facility] Comment on above: Performed By: #### C BC ####[facility] Fav[address]dsksq[address] [place], [place] [address]Dr. Lizandro Hemphill IG % 0.3 % Normal 0.0-0.5 [place] Comment on above: Performed By: #### C BC ####[facility] [address]xwb[address] [place] [address]DrCiro Hemphill LYMPH # 1.1 103/ul Critically low 1.2-3.8 [facility] Comment on above: Performed By: #### C BC ####[facility] Fbssraobmx[address] [place] [address]DrCiro Hemphill Lymphocytes/100 WBC (Bld) 15.3 % Critically low 20.5-60.0 [facility] Comment on above: Performed By: #### C BC ####[facility] [address] [place], [place] [address]DrCiro Hemphill MANUAL DIFF REQ NO Normal [facility] Comment on above: Performed By: #### C BC ####[facility] [address]rospmdf[address] [place] [address]DrCiro Hemphill MCH (RBC) [Entitic mass] 28.6 pg Normal 26.7-34.0 [facility] Comment on above: Performed By: #### C BC ####[facility] [address] [place], [place] [address]DrCiro Shanikaannie Hemphill MCHC (RBC) [Mass/Vol] 31.3 g/dL Normal 29.9-35.2 [facility] Comment on above: Performed By: #### C BC ####[facility] [address] [place], [place] [address]DrCiro Hemphill MCV (RBC) [Entitic vol] 91.5 fL Normal 81.0-99.0 [facility] Comment on above: Performed By: #### C BC ####[facility] [address] [place], [place] [address]DrCiro Hemphill MONO # 0.7 103/ul Normal 0.3-0.8 [facility] Comment on above: Performed By: #### C BC ####[facility] Ghq[address] [place], [place] [address]DrCiro Hemphill Monocytes/100 WBC (Bld) 10.5 % Normal 1.7-12.0 [facility] Comment on above: Performed By: #### C BC ####[facility] [address]vx[address] [place] [id number]. Lizandro Hemphill NEUT # 5.0 103/ul Normal 1.4-6.5 [facility] Comment on above: Performed By: #### C BC ####[facility] [address]hwoxmafis[address] [place] [id number]. Lizandro Hemphill Neutrophils/100 WBC (Bld) 70.2 % Normal 43.0-75.0 [facility] Comment on above: Performed By: #### C BC ####[facility] Eqqgexpomz4085 [place] [id number]. Lizandro Hemphill Platelet mean volume (Bld) [Entitic vol] 10.5 fL Normal 9.5-13.5 [facility] Comment on above: Performed By: #### C BC ####[facility] [address]qezuvmeqj[address] [place] [id number]. Lizandro Hemphill PLT 294 103/ul Normal 150-450 [facility] Comment on above: Performed By: #### C BC ####[facility] Cnuzovyoxw5985 [place] [id number]. Lizandro Hemphill RBC 4.33 106/ul Normal 4.20-5.40 [facility] Comment on above: Performed By: #### C BC ####[facility] Gsinbwvilz[address] [place] [id number]. Lizandro Hemphill WBC 7.1 103/ul Normal 4.0-11.0 [facility] Comment on above: Performed By: #### C BC ####[facility] Xctmmljizv16[address] [place] [id number]. Lizandro Hemphill CT HIP LT WO CONon 3 CT HIP LT WO CON Normal [facility] CT KNEE LT WO CONon 08-01-[address] KNEE LT WO CON Normal The [facility] PROF 14(COMP METB)on 023 Albumin [Mass/Vol] 3.0 g/dL Critically low 3.4-5.0 Th [facility] Comment on above: Performed By: #### C MP ####[facility] [address]af[address]ci[address] [place] [address]Dr. Lizandro Joby Albumin/Globulin [Mass ratio] 0.8 {ratio} Normal [place] Comment on above: Performed By: #### C MP ####[facility] Orxhigfibm[address] [place] [address]Dr. Lizandro Joby ALP [Catalytic activity/Vol] 163 U/L Critically high 46-116 [place] Comment on above: Performed By: #### C MP ####[facility] Mmbxdfvbjy6519 [place] [address]Dr. Lizandro Joby ALT [Catalytic activity/Vol] 76 U/L Critically high 14-59 [place] Comment on above: Performed By: #### C MP ####[facility] Vwtiaeqkvi[address] [place] [address]Dr. Shanikaannie Joby Anion gap [Moles/Vol] 10.8 mmol/L Normal [place] Comment on above: Performed By: #### C MP ####[facility] Olfsuok[address]ef[address] [place], [place] [address]Dr. Lizandro Joby AST [Catalytic activity/Vol] 79 U/L Critically high 15-37 [place] Comment on above: Performed By: #### C MP ####[facility] [address] [place], [place] [address]Dr. Lizandro Hemphill Bilirubin [Mass/Vol] 0.1 mg/dL Critically low 0.2-1.0 [place] Comment on above: Performed By: #### C MP ####[facility] [address] [place], [place] [address]Dr. Lizandro Hemphill Calcium [Mass/Vol] 9.2 mg/dL Normal 8.5-10.1 [facility] Comment on above: Performed By: #### C MP ####[facility] [address] [place], [place] [address]Dr. Lizandro Hemphill Chloride [Moles/Vol] 105 mmol/L Normal 98-107 [place] Comment on above: Performed By: #### C MP ####[facility] Meyhlwoxaj[address] [place] [address]Dr. Lizandro Hemphill CO2 [Moles/Vol] 29.1 mmol/L Normal 21.0-32.0 [facility] Comment on above: Performed By: #### C MP ####[facility] Jbxlxumeek[address] [place] [address]Dr. Lizandro Hemphill Creatinine [Mass/Vol] 0.74 mg/dL Normal 0.55-1.02 [facility] Comment on above: Performed By: #### C MP ####[facility] Sjyeiwseos[address] [place] [address]Dr. Lizandro Hemphill EGFR-AF CITIZEN OF [place] >60 Normal >=60 [facility] Comment on above: Performed By: #### C MP ####[facility] [address]zss[address]tt[address] [place] [address]Dr. Lizandro Hemphill EGFR-NON AF CITIZEN OF [place] >60 Normal >=60 [facility] Comment on above: Performed By: #### C MP ####[facility] Icytashmgt7175 [place] [address]Dr. Lizandro Hemphill Globulin (S) [Mass/Vol] 3.9 g/dL Normal [facility] Comment on above: Performed By: #### C MP ####[facility] Lospfrroey74[address] [place] [address]Dr. Lizandro Hemphill Glucose [Mass/Vol] 96 mg/dL Normal 74-106 [facility] Comment on above: Performed By: #### C MP ####[facility] Cixnuntkqx[address] [place] [address]Dr. Lizandro Hemphill Potassium [Moles/Vol] 3.9 mmol/L Normal 3.5-5.1 [facility] Comment on above: Performed By: #### C MP ####[facility] Ebsctrvvry[address] [place] [address]Dr. Lizandro Hemphill Protein [Mass/Vol] 6.9 g/dL Normal 6.4-8.2 [facility] Comment on above: Performed By: #### C MP ####[facility] Fopqzenxjr0705 [place] [id number]. Lizandro Hemphill Sodium [Moles/Vol] 141 mmol/L Normal 136-145 [facility] Comment on above: Performed By: #### C MP ####[facility] Yfmqtvlbui[address]25 [place] [address]Dr. Lizandro Hemphill Urea nitrogen [Mass/Vol] 13.0 mg/dL Normal 7.0-18.0 [place] Comment on above: Performed By: #### C MP ####[facility] Vmwfjiibpo[address]404 [place] [address]Dr. Lizandro Hemphill Urea nitrogen/Creatinin e [Mass ratio] 17.6 mg/mg Normal [place] Comment on above: Performed By: #### C MP ####[facility] Knwjigoean[address] [place] [address]Dr. Lizandro Hemphill PROTIMEon 07-31-2022 INR Coag (PPP) [Relative time] 1.56 {INR} Normal [place] Comment on above: Performed By: #### P T, PTT ####[facility] Xqyabsfpwe[address] [place] [address]Dr. Lizandro Hemphill INR GUIDELINES SEE BELOW Normal [facility] Comment on above: Result Comment: GUEVARA RED INR: 2.0 - 3.0 CONDITIONS NOT LISTED BELOW 2.5 - 3.5 FOR PROSTHETIC HEART VALVE REPLACEMENT 2.5 - 3.5 RECURRENT THROMBOSIS Performed By: #### P T, PTT ####[facility] Qobyfenf[address] [place], [place] [address]Dr. Lizandro Hemphill PT Coag (PPP) [Time] 16.1 s Critically high 9.0-11.6 [facility] Comment on above: Performed By: #### P T, PTT ####[facility] Savjzweimk[address] [place] [address]Dr. Lizandro Hemphill PTTon 07-31-2022 aPTT Coag (Bld) [Time] 30.4 s Normal 22.3-36.2 [place] Comment on above: Performed By: #### P T, PTT ####[facility] Puxvfbsike[address]46 [place] [phone]. Lizandro Hemphill CBC AUTO DIFFon 07-30-2022 BASO # 0.1 103/ul Normal 0.0-0.1 [facility] Comment on above: Performed By: #### C BC ####[facility] Zixmzoyser3347 [place] [id number]. Shanikaannie Hemphill Basophils/100 WBC (Bld) 1.1 % Normal 0.2-2.0 [facility] Comment on above: Performed By: #### C BC ####[facility] [address] [place], [place] [address]Dr. Shanikaannie Hemphill EO # 0.1 103/ul Normal 0.0-0.7 [facility] Comment on above: Performed By: #### C BC ####[facility] [address]vtoeld[address] [place], [place] [address]Dr. Lizandro Hemphill Eosinophils/100 WBC (Bld) 2.7 % Normal 0.9-7.0 [facility] Comment on above: Performed By: #### C BC ####[facility] Z[address]pe[address]ps[address] [place], [place] [address]Dr. Lizandro Hemphill Erythrocyte distribution width (RBC) [Ratio] 19.5 % Critically high 11.0-15.0 [facility] Comment on above: Performed By: #### C BC ####[facility] [address]abnrre[address] [place], [place] [address]Dr. Lizandro Hemphill Hematocrit (Bld) [Volume fraction] 34.5 % Critically low 36.0-48.0 [facility] Comment on above: Performed By: #### C BC ####[facility] [address] [place], [place] [address]Dr. Shanikaannie Hemphill Hemoglobin (Bld) [Mass/Vol] 10.8 g/dL Critically low 12.0-16.0 [facility] Comment on above: Performed By: #### C BC ####[facility] X[address]ocv[address] [place], [place] [address]Dr. Lizandro Hemphill IG # 0.02 10e3/ul Normal 0.00-0.03 [facility] Comment on above: Performed By: #### C BC ####[facility] Tlajcqsfpu18[address] [place] [id number]. Lizandro Hemphill IG % 0.4 % Normal 0.0-0.5 [place] Comment on above: Performed By: #### C BC ####[facility] Vaqkgqxwwd1410 [place] [id number]. Lizandro Hemphill LYMPH # 1.0 103/ul Critically low 1.2-3.8 [facility] Comment on above: Performed By: #### C BC ####[facility] Xyrfansxgj8646 [place] [id number]. Lizandro Hemphill Lymphocytes/100 WBC (Bld) 19.2 % Critically low 20.5-60.0 [place] Comment on above: Performed By: #### C BC ####[facility] [address]veezaqw[address] [place] [address]Dr. Lizandro Hemphill MANUAL DIFF REQ NO Normal [facility] Comment on above: Performed By: #### C BC ####[facility] Hdsegpanhu13[address] [place] [id number]. Shanikaannie Hemphill MCH (RBC) [Entitic mass] 28.5 pg Normal 26.7-34.0 [place] Comment on above: Performed By: #### C BC ####[facility] Elxongqsar[address]42 [place] [id number]. Lizandro Hemphill MCHC (RBC) [Mass/Vol] 31.3 g/dL Normal 29.9-35.2 [place] Comment on above: Performed By: #### C BC ####[facility] Oxwqyefebd6537 [place] [id number]. Lizandro Hemphill MCV (RBC) [Entitic vol] 91.0 fL Normal 81.0-99.0 [facility] Comment on above: Performed By: #### C BC ####[facility] Qvbxeeszut[address] [place] [address]Dr. Lizandro Hemphill MONO # 0.7 103/ul Normal 0.3-0.8 [place] Comment on above: Performed By: #### C BC ####[facility] Lgunvlabtr6908 [place] [id number]. Lizandro Hemphill Monocytes/100 WBC (Bld) 12.5 % Critically high 1.7-12.0 [place] Comment on above: Performed By: #### C BC ####[facility] Pgbpmcdytb8[address] [place] [id number]. Lizandro Hemphill NEUT # 3.4 103/ul Normal 1.4-6.5 [place] Comment on above: Performed By: #### C BC ####[facility] Tfqxkaoihw7032 [place] [id number]. Lizandro Hemphill Neutrophils/100 WBC (Bld) 64.1 % Normal 43.0-75.0 [place] Comment on above: Performed By: #### C BC ####[facility] Kocxjj[address]ler6[address] [place] [id number]. Lizandro Hemphill Platelet mean volume (Bld) [Entitic vol] 10.9 fL Normal 9.5-13.5 [place] Comment on above: Performed By: #### C BC ####[facility] Tlakcfgyzq6587 [place] [id number]. Lizandro Hemphill PLT 284 103/ul Normal 150-450 [place] Comment on above: Performed By: #### C BC ####[facility] Xztpjmugwi6517 [place] [phone]. Lizandro Hemphill RBC 3.79 106/ul Critically low 4.20-5.[address] [facility] Comment on above: Performed By: #### C BC ####[facility] Kqjwekvdnq0086 [place] [id number]. Lizandro Hemphill WBC 5.3 103/ul Normal 4.0-11.0 [place] Comment on above: Performed By: #### C BC ####[facility] Azopdegrwq5408 [place] [id number]. Lizandro Hemphill LIVER PROFILEon 07-30-2022 Albumin [Mass/Vol] 2.9 g/dL Critically low 3.4-5.0 [facility] Comment on above: Performed By: #### L IVER ####[facility] Ffpvvbyama2601 [place] [id number]. Lizandro Hemphill Albumin/Globulin [Mass ratio] 0.8 {ratio} Normal [place] Comment on above: Performed By: #### L IVER ####[facility] Qyiybsuevm2583 [place] [id number]. Lizandro Hemphill ALP [Catalytic activity/Vol] 164 U/L Critically high 46-116 [place] Comment on above: Performed By: #### L IVER ####[facility] Quntipnwnv9381 [place] [id number]. Lziandro Hemphill ALT [Catalytic activity/Vol] 91 U/L Critically high 14-59 [place] Comment on above: Performed By: #### L IVER ####[facility] Ecoyqvrcxi54[address] [place] [address]Dr. Lizandro Hemphill AST [Catalytic activity/Vol] 113 U/L Critically high 15-37 [place] Comment on above: Performed By: #### L IVER ####[facility] Teqvkaubbd0060 [place] [id number]. Lizandro Hemphill BILI, CONJUGATED 0.1 mg/dL Normal 0.0-0.2 [facility] Comment on above: Performed By: #### L IVER ####[facility] Pttumixbhx[address] [place], [place] [id number]. Lizandro Hemphill Bilirubin [Mass/Vol] 0.2 mg/dL Normal 0.2-1.0 [place] Comment on above: Performed By: #### L IVER ####[facility] Ufnzakmswk4826 [place] [id number]. Lizandro Hemphill Globulin (S) [Mass/Vol] 3.7 g/dL Normal [place] Comment on above: Performed By: #### L IVER ####[facility] Flmojeyudp8974 [place] [id number]. Lizandro Hemphill Protein [Mass/Vol] 6.6 g/dL Normal 6.4-8.2 [facility] Comment on above: Performed By: #### L IVER ####[facility] Iqnfcxijzo5262 [place] [address]Dr. Lizandro Hemphill PROF 14(COMP METB)on 023 Albumin [Mass/Vol] 2.8 g/dL Critically low 3.4-5.[address] [facility] Comment on above: Performed By: #### C MP ####[facility] Klbjpbjomq7086 [place] [address]Dr. Lizandro Hemphill Albumin/Globulin [Mass ratio] 0.8 {ratio} Normal [place] Comment on above: Performed By: #### C MP ####[facility] Zaydwybjdj19[address] [place], [place] [address]Dr. Lizandro Hemphill ALP [Catalytic activity/Vol] 157 U/L Critically high 46-116 [place] Comment on above: Performed By: #### C MP ####[facility] Zglkwzwjqh5[address] [place], [place] [address]Dr. Lizandro Hemphill ALT [Catalytic activity/Vol] 106 U/L Critically high 14-59 [place] Comment on above: Performed By: #### C MP ####[facility] Hlaseuoacq2846[address] [place], [place] [address]Dr. Lizandro Hemphill Anion gap [Moles/Vol] 10.4 mmol/L Normal [place] Comment on above: Performed By: #### C MP ####[facility] Zafqxuegdk17[address] [place], [place] [address]Dr. Lizandro Hemphill AST [Catalytic activity/Vol] 171 U/L Critically high 15-37 [place] Comment on above: Performed By: #### C MP ####[facility] Sykuilmvxm6[address] [place], [place] [address]Dr. Lizandro Hemphill Bilirubin [Mass/Vol] 0.3 mg/dL Normal 0.2-1.0 [place] Comment on above: Performed By: #### C MP ####[facility] Ivpdjzepde6455[address] [place], [place] [address]Dr. Lizandro Hemphill Calcium [Mass/Vol] 8.2 mg/dL Critically low 8.5-10.[address] [facility] Comment on above: Performed By: #### C MP ####[facility] Hgwucvhehj6479 [place] [address]Dr. Lizandro Hemphill Chloride [Moles/Vol] 107 mmol/L Normal 98-107 [place] Comment on above: Performed By: #### C MP ####[facility] Kpjqtkbkwd0350 [place] [address]Dr. Lizandro Hemphill CO2 [Moles/Vol] 27.4 mmol/L Normal 21.0-32.0 [facility] Comment on above: Performed By: #### C MP ####[facility] Ricfwhobcs9347 [place] [address]Dr. Lizandro Hemphill Creatinine [Mass/Vol] 0.74 mg/dL Normal 0.55-1.02 [place] Comment on above: Performed By: #### C MP ####[facility] Hngtplpgjn3873 [place] [address]Dr. Lizandro Hemphill EGFR-AF [place]IZ[place] >60 Normal >=60 [facility] Comment on above: Performed By: #### C MP ####[facility] Wytcornsdd1334 [place] [address]Dr. Lizandro Hemphill EGFR-NON AF [place]IZ[place] >60 Normal >=60 [place] Comment on above: Performed By: #### C MP ####[facility] Korbrhvijv9748 [place] [address]Dr. Lizandro Hemphill Globulin (S) [Mass/Vol] 3.4 g/dL Normal [place] Comment on above: Performed By: #### C MP ####[facility] Oflmhhpgwf5871 [place] [address]Dr. Lizandro Hemphill Glucose [Mass/Vol] 123 mg/dL Critically high 74-106 [facility] Comment on above: Performed By: #### C MP ####[facility] Qchsscjzwy4235 [place] [address]Dr. Lizandro Hemphill Potassium [Moles/Vol] 3.8 mmol/L Normal 3.5-5.1 [place] Comment on above: Performed By: #### C MP ####[facility] Jthpesnsfb4744 [place] [address]Dr. Lizandro Hemphill Protein [Mass/Vol] 6.2 g/dL Critically low 6.4-8.[address] [facility] Comment on above: Performed By: #### C MP ####[facility] Ktxwffqgpy9295 [place] [address]Dr. Lizandro Hemphill Sodium [Moles/Vol] 141 mmol/L Normal 136-145 [facility] Comment on above: Performed By: #### C MP ####[facility] Zhkskjtqka9557 [place] [address]Dr. Lizandro Hemphill Urea nitrogen [Mass/Vol] 14.0 mg/dL Normal 7.0-18.0 [place] Comment on above: Performed By: #### C MP ####[facility] Eyqzkijzih09[address] [place], [place] [address]Dr. Lizandro Hemphill Urea nitrogen/Creatinin e [Mass ratio] 18.9 mg/mg Normal [place] Comment on above: Performed By: #### C MP ####[facility] Tgxhzafihf5064[address] [place], [place] [address]Dr. Lizandro Hemphill PROTIMEon 07-30-2022 INR Coag (PPP) [Relative time] 1.08 {INR} Normal [place] Comment on above: Performed By: #### P T, PTT ####[facility] Ggcvecjfdb6[address] [place], [place] [address]Dr. Lizandro Hemphill INR GUIDELINES SEE BELOW Normal [facility] Comment on above: Result Comment: GUEVARA RED INR: 2.0 - 3.0 CONDITIONS NOT LISTED BELOW 2.5 - 3.5 FOR PROSTHETIC HEART VALVE REPLACEMENT 2.5 - 3.5 RECURRENT THROMBOSIS Performed By: #### P T, PTT ####[facility] Kttaqgyggp9440[address] [place], [place] [address]Dr. Lizandro Hemphill PT Coag (PPP) [Time] 11.4 s Normal 9.0-11.6 [place] Comment on above: Performed By: #### P T, PTT ####[facility] Oecbtxoamu[address] [place] [address]Dr. Lizandro Hemphill PTTon 07-30-2022 aPTT Coag (Bld) [Time] 29.3 s Normal 22.3-36.2 [facility] Comment on above: Performed By: #### P T, PTT ####[facility] Jamrjpedrw32[address] [place], [place] [address]Dr. Lizandro Hemphill UA RANDOM W/MICROSCOPICon BACTERIA NONE SEEN Normal NONE SEEN [facility] Comment on above: Performed By: #### U AMIC ####[facility] Nbmvlhqfin065[address] [place], [place] [address]Dr. Lizandro Hemphill Bilirubin Ql (U) Negative Normal NEGATIVE [facility] Comment on above: Performed By: #### U AMIC ####[facility] Nerbcieqbh4156[address] [place], [place] [address]Dr. Lizandro Hemphill CAST NONE SEEN Normal NONE SEEN [place] Comment on above: Performed By: #### U AMIC ####[facility] Euttfstpkv265[address] [place], [place] [address]Dr. Lizandro Hemphill Clarity (U) CLEAR Normal CLEAR [facility] Comment on above: Performed By: #### U AMIC ####[facility] Lxfsstegjj7099[address] [place], [place] [address]Dr. Lizandro Hemphill Color (U) LT. YELLOW Normal YELLOW [facility] Comment on above: Performed By: #### U AMIC ####[facility] Urzheuxuth[address] [place], [place] [address]Dr. Lizandro Hemphill Crystals LM Nom (Urine sed) NONE SEEN Normal NONE SEEN [facility] Comment on above: Performed By: #### U AMIC ####[facility] Tejggducmi9358[address] [place], [place] [address]Dr. Lizandro Hemphill Epithelial cells LM Ql (Urine sed) NONE SEEN Normal NONE SEEN /RARE [facility] Comment on above: Performed By: #### U AMIC ####[facility] Slxieaqkri1608[address] [place], [place] [address]Dr. Lizandro Hemphill Glucose Ql (U) 100 mg/dl Abnormal NEGATIVE [facility] Comment on above: Performed By: #### U AMIC ####[facility] Odyynblnls4056 [place] [address]Dr. Lizandro Hemphill Hemoglobin Ql (U) Negative Normal NEGATIVE The [facility] Comment on above: Performed By: #### U AMIC ####[facility] Kzzykxemfa0697 [place] [address]Dr. Shanikaannie Hemphill Ketones Ql (U) TRACE Abnormal NEGATIVE [facility] Comment on above: Performed By: #### U AMIC ####[facility] Bbztwvebmv345[address] [place], [place] [address]Dr. Lizandro Hemphill LEUKOCYTES Negative Normal NEGATIVE [facility] Comment on above: Performed By: #### U AMIC ####[facility] Trtchyhoth265[address] [place], [place] [address]Dr. Lizandro Hemphill MUCOUS NONE SEEN Normal NONE SEEN [facility] Comment on above: Performed By: #### U AMIC ####[facility] Nutrszbogc6796[address] [place], [place] [address]Dr. Lizandro Joby Nitrite Ql (U) Negative Normal NEGATIVE [facility] Comment on above: Performed By: #### U AMIC ####[facility] Fxzfdqccnx3586[address] [place], [place] [address]Dr. Lizandro Joby pH (U) 7.0 [pH] Normal 5-9 [facility] Comment on above: Performed By: #### U AMIC ####[facility] Funmhijxul8385[address] [place], [place] [address]Dr. Lizandro Hemphill RBC NONE SEEN Abnormal 0-2 [facility] Comment on above: Performed By: #### U AMIC ####[facility] Abftwpevdg274[address] [place], [place] [address]Dr. Lizandro Hemphill SPEC GRAVITY 1.015 Normal 1.005-<=1.[address] [facility] Comment on above: Performed By: #### U AMIC ####[facility] Aztzdweiax[address] [place], [place] [address]Dr. Lizandro Hemphill UA PROTEIN Negative Normal NEGATIVE/ TRACE [facility] Comment on above: Performed By: #### U AMIC ####[facility] Aqniemzmib1571 [place] [id number]. Shanikaannie Hemphill Urobilinogen Qn (U) 0.2 {Cassy'U}/dL Normal 0.2 - 1.0 [facility] Comment on above: Performed By: #### U AMIC ####[facility] Hxjojykcxk1621 [place] [id number]. Lizandro Hemphill WBC NONE SEEN Normal NONE SEEN [facility] Comment on above: Performed By: #### U AMIC ####[facility] Mcioybsvvu3136[address] [place], [place] [address]Dr. Lizandro Hemphill CBC AUTO DIFFon 07-29-2022 BASO # 0.1 103/ul Normal 0.0-0.1 [facility] Comment on above: Performed By: #### C BC ####[facility] Hneplegbaq7[address] [place], [place] [address]Dr. Lizandro Hemphill Basophils/100 WBC (Bld) 0.8 % Normal 0.2-2.0 [facility] Comment on above: Performed By: #### C BC ####[facility] Opymwjauil17[address] [place], [place] [address]Dr. Lizandro Hemphill EO # 0.0 103/ul Normal 0.0-0.7 [facility] Comment on above: Performed By: #### C BC ####[facility] Tltxyjqhnw3566[address] [place], [place] [address]Dr. Lizandro Hemphill Eosinophils/100 WBC (Bld) 0.5 % Critically low 0.9-7.0 [facility] Comment on above: Performed By: #### C BC ####[facility] Ippqzyhtac439[address] [place], [place] [address]Dr. Lizandro Hemphill Erythrocyte distribution width (RBC) [Ratio] 19.2 % Critically high 11.0-15.0 [facility] Comment on above: Performed By: #### C BC ####[facility] Umrbszqprx69[address] [place], [place] [address]Dr. Lizandro Hemphill Hematocrit (Bld) [Volume fraction] 40.4 % Normal 36.0-48.0 [facility] Comment on above: Performed By: #### C BC ####[facility] Uzljjgswne6723 [place] [id number]. Lizandro Hemphill Hemoglobin (Bld) [Mass/Vol] 12.3 g/dL Normal 12.0-16.0 [place] Comment on above: Performed By: #### C BC ####[facility] Jimjenyznz0787 [place] [id number]. Lizandro Hemphill IG # 0.02 10e3/ul Normal 0.00-0.03 [facility] Comment on above: Performed By: #### C BC ####[facility] Pyjipjbxum5763 [place] [address]Dr. Lizandro Hemphill IG % 0.2 % Normal 0.0-0.5 [place] Comment on above: Performed By: #### C BC ####[facility] Wcygdtcjbq7416 [place] [address]Dr. Lizandro Hemphill LYMPH # 1.3 103/ul Normal 1.2-3.8 [facility] Comment on above: Performed By: #### C BC ####[facility] Pqadqqpgil8457 [place] [address]Dr. Lizandro Hemphill Lymphocytes/100 WBC (Bld) 14.9 % Critically low 20.5-60.0 [place] Comment on above: Performed By: #### C BC ####[facility] Ukdopbwnjx0238 [place] [id number]. Lizandro Hemphill MANUAL DIFF REQ NO Normal [facility] Comment on above: Performed By: #### C BC ####[facility] Cxuvppykaj8951 [place] [id number]. Lizandro Hemphill MCH (RBC) [Entitic mass] 28.1 pg Normal 26.7-34.0 [facility] Comment on above: Performed By: #### C BC ####[facility] Gijgiwhllq1089 [place] [id number]. Lizandro Hemphill MCHC (RBC) [Mass/Vol] 30.4 g/dL Normal 29.9-35.2 [facility] Comment on above: Performed By: #### C BC ####[facility] Voveotcdgs2750 [place] [id number]. Lizandro Hemphill MCV (RBC) [Entitic vol] 92.2 fL Normal 81.0-99.0 [place] Comment on above: Performed By: #### C BC ####[facility] Wsjgvdoxlb8564 [place] [id number]. Lizandro Hemphill MONO # 0.7 103/ul Normal 0.3-0.8 [facility] Comment on above: Performed By: #### C BC ####[facility] Ctommuqhws5226 [place] [id number]. Lizandro Hemphill Monocytes/100 WBC (Bld) 8.2 % Normal 1.7-12.0 [place] Comment on above: Performed By: #### C BC ####[facility] Jxgwgqcnfg12[address] [place], [place] [address]Dr. Lizandro Hemphill NEUT # 6.6 103/ul Critically high 1.4-6.[address] [facility] Comment on above: Performed By: #### C BC ####[facility] Flcbsidrwj15[address] [place], [place] [address]Dr. Lizandro Hemphill Neutrophils/100 WBC (Bld) 75.4 % Critically high 43.0-75.0 [facility] Comment on above: Performed By: #### C BC ####[facility] Yhyufmmnwx799[address] [place], [place] [address]Dr. Lizandro Hemphill Platelet mean volume (Bld) [Entitic vol] 10.4 fL Normal 9.5-13.5 [facility] Comment on above: Performed By: #### C BC ####[facility] Wgkqjgomfn[address] [place], [place] [address]Dr. Lizandro Hemphill PLT 316 103/ul Normal 150-450 [facility] Comment on above: Performed By: #### C BC ####[facility] Zakfxjknlj39[address] [place], [place] [address]Dr. Lizandro Joby RBC 4.38 106/ul Normal 4.20-5.40 [facility] Comment on above: Performed By: #### C BC ####[facility] Ohjcqklgzg3126 [place] [address]Dr. Lizandro Hemphill WBC 8.8 103/ul Normal 4.0-11.0 [place] Comment on above: Performed By: #### C BC ####[facility] Skssfrgcvw1208 [place] [address]Dr. Lizandro Hemphill LACTATE/LACTIC ACIDon 2022 Lactate [Moles/Vol] 1.0 mmol/L Normal 0.4-2.0 [place] Comment on above: Performed By: #### L ACT ####[facility] Ieoqlvsgym3168 [place] [address]Dr. Lizandro Hemphill PROF 14(COMP METB)on 023 Albumin [Mass/Vol] 3.6 g/dL Normal 3.4-5.0 [facility] Comment on above: Performed By: #### C MP ####[facility] Xwtoduafar64[address] [place], [place] [address]Dr. Lizandro Hemphill Albumin/Globulin [Mass ratio] 0.9 {ratio} Normal [place] Comment on above: Performed By: #### C MP ####[facility] Hsyoslqfsg3872 [place] [address]Dr. Lizandro Hemphill ALP [Catalytic activity/Vol] 132 U/L Critically high 46-116 [place] Comment on above: Performed By: #### C MP ####[facility] Ueictzrqgd2242 [place] [address]Dr. Lizandro Hemphill ALT [Catalytic activity/Vol] 26 U/L Normal 14-59 [facility] Comment on above: Performed By: #### C MP ####[facility] Xgkuzrfetf8444 [place] [address]Dr. Lizandro Hemphill Anion gap [Moles/Vol] 17.7 mmol/L Normal [place] Comment on above: Performed By: #### C MP ####[facility] Fzegddrkkp6802 [place] [address]Dr. Lizandro Hemphill AST [Catalytic activity/Vol] 36 U/L Normal 15-37 [place] Comment on above: Performed By: #### C MP ####[facility] Ynakhmrmcw8510 [place] [address]Dr. Lizandro Hemphill Bilirubin [Mass/Vol] 0.4 mg/dL Normal 0.2-1.0 [place] Comment on above: Performed By: #### C MP ####[facility] Knxkfazcbf4526 [place] [address]Dr. Lizandro Hemphill Calcium [Mass/Vol] 9.2 mg/dL Normal 8.5-10.1 [facility] Comment on above: Performed By: #### C MP ####[facility] Okzgpwuocj5716[address] [place], [place] [address]Dr. Lizandro Hemphill Chloride [Moles/Vol] 102 mmol/L Normal 98-107 [place] Comment on above: Performed By: #### C MP ####[facility] Upxjysvapu1154[address] [place], [place] [address]Dr. Lizandro Hemphill CO2 [Moles/Vol] 20.1 mmol/L Critically low 21.0-32.0 [place] Comment on above: Performed By: #### C MP ####[facility] Szwomqfrau6[address] [place], [place] [address]Dr. Lizandro Hemphill Creatinine [Mass/Vol] 1.00 mg/dL Normal 0.55-1.02 [place] Comment on above: Performed By: #### C MP ####[facility] Dbluqptrvr4[address] [place], [place] [address]Dr. Lizandro Hemphill EGFR-AF [place] >60 Normal >=60 [facility] Comment on above: Performed By: #### C MP ####[facility] Fqnoiccnpi032[address] [place], [place] [address]Dr. Lizandro Hemphill EGFR-NON AF [place]IZ[place] 57 mL/min/1.73m2 Critically low >=60 [place] Comment on above: Performed By: #### C MP ####[facility] Sofitbxbss4[address] [place], [place] [address]Dr. Lizandro Hemphill Globulin (S) [Mass/Vol] 4.1 g/dL Normal [place] Comment on above: Performed By: #### C MP ####[facility] Vvxaxomgyb1183 [place] [address]Dr. Lizandro Hemphill Glucose [Mass/Vol] 79 mg/dL Normal 74-106 [facility] Comment on above: Performed By: #### C MP ####[facility] Gjdagqsihp4714 [place] [address]Dr. Lizandro Hemphill Potassium [Moles/Vol] 2.6 mmol/L Critically low 3.5-5.1 [place] Comment on above: Performed By: #### C MP ####[facility] Ccxtmlfmfi20[address] [place], [place] [address]Dr. Lizandro Hemphill Protein [Mass/Vol] 7.7 g/dL Normal 6.4-8.2 [facility] Comment on above: Performed By: #### C MP ####[facility] Lurqkftdnj3130[address] [place], [place] [address]Dr. Lizandro Hemphill Sodium [Moles/Vol] 126 mmol/L Critically low 136-[address] [facility] Comment on above: Performed By: #### C MP ####[facility] Accxbiiysh2669[address] [place], [place] [address]Dr. Lizandro Joby Urea nitrogen [Mass/Vol] 15.0 mg/dL Normal 7.0-18.0 [place] Comment on above: Performed By: #### C MP ####[facility] Muhnqdwrmn044[address] [place], [place] [address]Dr. Lizandro Hemphill Urea nitrogen/Creatinin e [Mass ratio] 15.0 mg/mg Normal [place] Comment on above: Performed By: #### C MP ####[facility] Qakvbqwkcs44[address] [place], [place] [address]Dr. Lizandro Hemphill PROTIMEon 07-29-2022 INR Coag (PPP) [Relative time] 0.99 {INR} Normal [place] Comment on above: Performed By: #### P T, PTT ####[facility] Zizmqhqsza90[address] [place], [place] [address]Dr. Lizandro Hemphill INR GUIDELINES SEE BELOW Normal [facility] Comment on above: Result Comment: GUEVARA RED INR: 2.0 - 3.0 CONDITIONS NOT LISTED BELOW 2.5 - 3.5 FOR PROSTHETIC HEART VALVE REPLACEMENT 2.5 - 3.5 RECURRENT THROMBOSIS Performed By: #### P T, PTT ####[facility] Falhtcoxpb4[address] [place], [place] [address]Dr. Lizandro Hemphill PT Coag (PPP) [Time] 10.5 s Normal 9.0-11.6 [facility] Comment on above: Performed By: #### P T, PTT ####[facility] Ewzsxvyoqd9065[address] [place], [place] [address]Dr. Lizandro Hemphill PTTon 07-29-2022 aPTT Coag (Bld) [Time] 29.1 s Normal 22.3-36.2 [facility] Comment on above: Performed By: #### P T, PTT ####[facility] Kgdcsszywd504[address] [place], [place] [address]Dr. Lizandro Hemphill XR KNEE LT 4V or >on 023 XR KNEE LT 4V or > Normal The [facility] XR PELVIS 1_2 VIEWSon 2022 XR PELVIS 1_2 VIEWS Normal [facility] CBC AUTO DIFFon 06-28-2022 BASO # 0.0 103/ul Normal 0.0-0.1 [facility] Comment on above: Performed By: #### C BC ####[facility] Gwtzmhrrhu47[address] [place], [place] [address]Dr. Lizandro Hemphill Basophils/100 WBC (Bld) 0.2 % Normal 0.2-2.0 [facility] Comment on above: Performed By: #### C BC ####[facility] Afejhrbgsi[address] [place], [place] [address]Dr. Lizandro Hemphill EO # 0.0 103/ul Normal 0.0-0.7 [facility] Comment on above: Performed By: #### C BC ####[facility] Amxfgeatja7543[address] [place], [place] [address]Dr. Lizandro Hemphill Eosinophils/100 WBC (Bld) 0.0 % Critically low 0.9-7.0 [facility] Comment on above: Performed By: #### C BC ####[facility] Irqxwpzjep8614 [place] [address]Dr. Lizandro Hemphill Erythrocyte distribution width (RBC) [Ratio] 19.2 % Critically high 11.0-15.0 [place] Comment on above: Performed By: #### C BC ####[facility] Prkvfxtsyq7354[address] [place], [place] [address]Dr. Lizandro Hemphill Hematocrit (Bld) [Volume fraction] 34.1 % Critically low 36.0-48.0 [place] Comment on above: Performed By: #### C BC ####[facility] Rvxwqbjbvc[address] [place], [place] [address]Dr. Lizandro Hemphill Hemoglobin (Bld) [Mass/Vol] 10.7 g/dL Critically low 12.0-16.0 [place] Comment on above: Performed By: #### C BC ####[facility] Jicrzvgaoi[address] [place], [place] [address]Dr. Lizandro Hemphill IG # 0.02 10e3/ul Normal 0.00-0.03 [place] Comment on above: Performed By: #### C BC ####[facility] Jifsdzyhoi[address] [place], [place] [address]Dr. Lizandro Hemphill IG % 0.3 % Normal 0.0-0.5 [place] Comment on above: Performed By: #### C BC ####[facility] Crvsyzvduv[address] [place], [place] [address]Dr. Lizandro Hemphill LYMPH # 0.4 103/ul Critically low 1.2-3.8 [facility] Comment on above: Performed By: #### C BC ####[facility] Xxxtbpwyjg938[address] [place], [place] [address]Dr. Lizandro Hemphill Lymphocytes/100 WBC (Bld) 6.5 % Critically low 20.5-60.0 [place] Comment on above: Performed By: #### C BC ####[facility] Fpazabfrgl14[address] [place], [place] [address]Dr. Lizandro Hemphill MANUAL DIFF REQ YES Normal The [facility] Comment on above: Result Comment: Prev iously reported as: NO On 06/28/2022 05:01 By KD3 Performed By: #### C BC ####[facility] Owjetandmr6206 [place] [address]DrCiro Hemphill MCH (RBC) [Entitic mass] 27.2 pg Normal 26.7-34.0 [place] Comment on above: Performed By: #### C BC ####[facility] Wnzyqujlax[address] [place], [place] [address]DrCiro Hemphill MCHC (RBC) [Mass/Vol] 31.4 g/dL Normal 29.9-35.2 [facility] Comment on above: Performed By: #### C BC ####[facility] Bhfcmgnbak97[address] [place], [place] [address]DrCiro Hemphill MCV (RBC) [Entitic vol] 86.8 fL Normal 81.0-99.0 [place] Comment on above: Performed By: #### C BC ####[facility] Itvyothpdk34[address] [place], [place] [address]DrCiro Hemphill MONO # 0.0 103/ul Critically low 0.3-0.8 [facility] Comment on above: Performed By: #### C BC ####[facility] Eltjhxeprj47[address] [place], [place] [address]DrCiro Hemphill Monocytes/100 WBC (Bld) 0.5 % Critically low 1.7-12.0 [place] Comment on above: Performed By: #### C BC ####[facility] Doljndemnk[address] [place], [place] [address]DrCiro Hemphill NEUT # 5.6 103/ul Normal 1.4-6.5 [facility] Comment on above: Performed By: #### C BC ####[facility] Xawvaiaeyp[address] [place], [place] [address]DrCiro Hemphill Neutrophils/100 WBC (Bld) 92.5 % Critically high 43.0-75.0 [facility] Comment on above: Performed By: #### C BC ####[facility] Nvbxghcndo9[address] [place], [place] [address]DrCiro Hemphill Platelet mean volume (Bld) [Entitic vol] 10.5 fL Normal 9.5-13.5 [facility] Comment on above: Performed By: #### C BC ####[facility] Tyfzgfhgvh3948 [place] [address]Dr. Lizandro Hemphill PLT 213 103/ul Normal 150-450 [facility] Comment on above: Performed By: #### C BC ####[facility] Ggtxxmffki7242 [place] [address]Dr. Lizandro Hemphill RBC 3.93 106/ul Critically low 4.20-5.[address] [facility] Comment on above: Performed By: #### C BC ####[facility] Tqtobqtbgn616[address] [place], [place] [address]Dr. Lizandro Hemphill WBC 6.0 103/ul Normal 4.0-11.0 [facility] Comment on above: Performed By: #### C BC ####[facility] Zleckavepf9[address] [place], [place] [address]Dr. Lizandro Hemphill CBC W MANUAL DIFFon 06-29-19 23 ATYPICAL LYMPH # Normal [facility] Comment on above: Performed By: #### C BCMAN ####[facility] Fqysmqrpnt2983[address] [place], [place] [address]Dr. Lizandro Hemphill ATYPICAL LYMPH % Normal [facility] Comment on above: Performed By: #### C BCMAN ####[facility] Pzpsyvoclp3230[address] [place], [place] [address]Dr. Lizandro Hemphill BAND # 0.0 103/ul Normal 0.0-0.3 [facility] Comment on above: Performed By: #### C BCMAN ####[facility] Uomobhcugg6067 [place] [address]Dr. Lizandro Hemphill BAND % 0 % Normal 0-5 [facility] Comment on above: Performed By: #### C BCMAN ####[facility] Qgzmfhaxji8444[address] [place], [place] [address]Dr. Lizandro Joby BASOM # 0.00 103/ul Normal 0.00-0.10 [facility] Comment on above: Performed By: #### C BCMAN ####[facility] Thcsxlouva4761 [place] [id number]. Lizandro Hemphill BASOM % 0.0 % Critically low 0.2-2.0 [facility] Comment on above: Performed By: #### C BCMAN ####[facility] Ncpfaqlbzm2772 [place] [id number]. Lizandro Hemphill BLAST # Normal [facility] Comment on above: Performed By: #### C BCMARÍA ####[facility] Ylrzcqrhqo2405 [place] [id number]. Lizandro Hemphill BLAST % Normal [facility] Comment on above: Performed By: #### C BCMARÍA ####[facility] Hypaennccs4188 [place] [address]Dr. Lizandro Hemphill CORRECTED WBC Normal 4.0-11.0 The [facility] Comment on above: Performed By: #### C DERRELL ####[facility] Rsxpulzcqx6905[address] [place], [place] [address]Dr. Lizandro Hemphill EOS # 0.00 103/ul Normal 0.00-0.70 [place] Comment on above: Performed By: #### C BCMARÍA ####[facility] Bqfpriemkw6825[address] [place], [place] [address]Dr. Lizandro Hemphill EOS% 0.0 % Critically low 0.9-7.0 [facility] Comment on above: Performed By: #### C BCMARÍA ####[facility] Hjwjcyqigk3476 [place] [address]Dr. Lizandro Hemphill HCT 34.1 % Critically low 36.0-48.0 [facility] Comment on above: Performed By: #### C BCMARÍA ####[facility] Ujsfiqcffp0998 [place] [address]Dr. Lizandro Hemphill HGB 10.7 g/dl Critically low 12.0-16.0 [facility] Comment on above: Performed By: #### C BCMARÍA ####[facility] Lwedoelmmw8450[address] [place], [place] [address]Dr. Lizandro Hemphill LYMPHM # 0.54 103/ul Critically low 1.20-3.80 [facility] Comment on above: Performed By: #### C DERRELL ####[facility] Knfalvtdyv3948 [place] [address]Dr. Lizandro Hemphill LYMPHM% 9.0 % Critically low 20.5-60.0 [facility] Comment on above: Performed By: #### C DERRELL ####[facility] Ocrvioedpi9996 [place] [address]Dr. Lizandro Hemphill MCH 27.2 pg Normal 26.7-34.0 [place] Comment on above: Performed By: #### C DERRELL ####[facility] Kbmqoaiceg3737 [place] [address]Dr. Lizandro Hemphill MCHC 31.4 g/dl Normal 29.9-35.2 [facility] Comment on above: Performed By: #### C DERRELL ####[facility] Rtbhblhxvj6[address] [place], [place] [address]Dr. Lizandro Hemphill MCV 86.8 fL Normal 81.0-99.0 [facility] Comment on above: Performed By: #### C DERRELL ####[facility] Kvbzrdptsg[address] [place], [place] [address]Dr. Lizandro Hemphill METAMYELOCYTE # Normal [facility] Comment on above: Performed By: #### C DERRELL ####[facility] Qkwidaysxq237[address] [place], [place] [address]Dr. Lizandro Hemphill METAMYELOCYTE % Normal [facility] Comment on above: Performed By: #### C DERRELL ####[facility] Quwlfzfjey2639 [place] [address]Dr. Lizandro Hemphill MONOM# 0.12 103/ul Critically low 0.30-0.[address] [facility] Comment on above: Performed By: #### C DERRELL ####[facility] Mmsorxxzqf2657 [place] [address]Dr. Lizandro Hemphill MONOM% 2.0 % Normal 1.7-12.0 [place] Comment on above: Performed By: #### C DERRELL ####[facility] Bpcywgmrkq9005 [place], [place] [address]Wl. Lizandro Hemphill MPV 10.5 fL Normal 9.5-13.5 [facility] Comment on above: Performed By: #### C BCMAN ####[facility] Iraybzevsk4885 [place], [place] [address]Wp. Lizandro Hemphill MYELOCYTE # Normal [facility] Comment on above: Performed By: #### C DERRELL ####[facility] Zrggwozdpt8163 [place], [place] [address]De. Lizandro Hemphill MYELOCYTE % Normal [facility] Comment on above: Performed By: #### C DERRELL ####[facility] Sluhlbongo8557 [place] [id number]. Lizandro Hemphill NRBC Normal [facility] Comment on above: Performed By: #### C DERRELL ####[facility] Chbcmrqqgs6457 [place] [id number]. Lizandro Hemphill PLT 213 103/ul Normal 150-450 [facility] Comment on above: Performed By: #### C DERRELL ####[facility] Iheffbadgf7161 [place], [place] [address]Fz. Lizandro Hemphill RBC 3.93 106/ul Critically low 4.20-5.[address] [facility] Comment on above: Performed By: #### C DERRELL ####[facility] Hnrtyqcuie8432 [place] [id number]. Lizandro Hemphill RDW 19.2 % Critically high 11.0-15.[address] [facility] Comment on above: Performed By: #### C DERRELL ####[facility] Uagnlyuhzc8196 [place] [phone]. Lizandro Hemphill SEG # 5.34 103/ul Normal 1.40-6.50 [facility] Comment on above: Performed By: #### C DERRELL ####[facility] Kfafqrjyfq0526 [place] [id number]. Lizandro Hemphill SEG % 89.0 % Critically high 43.0-75.[address] [facility] Comment on above: Performed By: #### C DERRELL ####[facility] Yndnfiaowf0478 [place] [id number]. Lizandro Hemphill WBC 6.0 103/ul Normal 4.0-11.0 [place] Comment on above: Performed By: #### C BCMAN ####[facility] Bcpnjfnlsk3886 [place] [address]Dr. Lizandro Hemphill CRPon 06-28-2022 CRP 0.1 mg/dL Normal <=1.0 [place] Comment on above: Performed By: #### C RP, CMP ####[facility] Ralhxyalcl5408 [place] [address]Dr. Lizandro Hemphill PROF 14(COMP METB)on 023 Albumin [Mass/Vol] 2.8 g/dL Critically low 3.4-5.0 [facility] e [facility] Comment on above: Performed By: #### C RP, CMP ####[facility] Fomzayenan5[address] [place], [place] [address]Dr. Lizandro Hemphill Albumin/Globulin [Mass ratio] 0.8 {ratio} Normal [place] Comment on above: Performed By: #### C RP, CMP ####[facility] Tlhzxbqexm0325 [place] [address]Dr. Lizandro Hemphill ALP [Catalytic activity/Vol] 129 U/L Critically high 46-116 [place] Comment on above: Performed By: #### C RP, CMP ####[facility] Ifqamsaiwb3972 [place] [address]Dr. Lizandro Hemphill ALT [Catalytic activity/Vol] 47 U/L Normal 14-59 [place] Comment on above: Performed By: #### C RP, CMP ####[facility] Siujrbmkfc5141 [place] [address]Dr. Lizandro Hemphill Anion gap [Moles/Vol] 11.7 mmol/L Normal [place] Comment on above: Performed By: #### C RP, CMP ####[facility] Skhewufvgp7149 [place] [address]Dr. Lizandro Hemphill AST [Catalytic activity/Vol] 13 U/L Critically low 15-37 [place] Comment on above: Performed By: #### C RP, CMP ####[facility] Oamyhojcfj5049 [place] [address]Dr. Lizandro Hemphill Bilirubin [Mass/Vol] 0.1 mg/dL Critically low 0.2-1.0 [place] Comment on above: Performed By: #### C RP, CMP ####[facility] Bwbwomieaz2168[address] [place], [place] [address]Dr. Lizandro Hemphill Calcium [Mass/Vol] 8.3 mg/dL Critically low 8.5-10.[address] [facility] Comment on above: Performed By: #### C RP, CMP ####[facility] Rgeecpetyt7669[address] [place], [place] [address]Dr. Lizandro Hemphill Chloride [Moles/Vol] 106 mmol/L Normal 98-107 [place] Comment on above: Performed By: #### C RP, CMP ####[facility] Bivlyzrkxj2487[address] [place], [place] [address]Dr. Lizandro Hemphill CO2 [Moles/Vol] 26.0 mmol/L Normal 21.0-32.0 [facility] Comment on above: Performed By: #### C RP, CMP ####[facility] Pifkwicyde8133[address] [place], [place] [address]Dr. Lizandro Hemphill Creatinine [Mass/Vol] 0.80 mg/dL Normal 0.55-1.02 [place] Comment on above: Performed By: #### C RP, CMP ####[facility] Nwybbzxnek060[address] [place], [place] [address]Dr. Lizandro Hemphill EGFR-AF CITIZEN OF [place] >60 Normal >=60 [facility] Comment on above: Performed By: #### C RP, CMP ####[facility] Xuptjmxmea7986[address] [place], [place] [address]Dr. Lizandro Hemphill EGFR-NON AF CITIZEN OF [place] >60 Normal >=60 [place] Comment on above: Performed By: #### C RP, CMP ####[facility] Vnqnlzgtvr1188[address] [place], [place] [address]Dr. Lizandro Hemphill Globulin (S) [Mass/Vol] 3.4 g/dL Normal [place] Comment on above: Performed By: #### C RP, CMP ####[facility] Etjxrnszxu5936 [place] [address]Dr. Lizandro Hemphill Glucose [Mass/Vol] 164 mg/dL Critically high 74-106 [facility] Comment on above: Performed By: #### C RP, CMP ####[facility] Ptbcgwaqrx2280 [place] [address]Dr. Lizandro Joby Potassium [Moles/Vol] 3.5 mmol/L Normal 3.5-5.1 [place] Comment on above: Performed By: #### C RP, CMP ####[facility] Fbfywzmexx750[address] [place], [place] [address]Dr. Lizandro Hemphill Protein [Mass/Vol] 6.2 g/dL Critically low 6.4-8.[address] [facility] Comment on above: Performed By: #### C RP, CMP ####[facility] Cwocwhvodw6327[address] [place], [place] [address]Dr. Lizandro Hemphill Sodium [Moles/Vol] 140 mmol/L Normal 136-145 [facility] Comment on above: Performed By: #### C RP, CMP ####[facility] Oqzrhhpxxp7068[address] [place], [place] [address]Dr. Lizandro Hemphill Urea nitrogen [Mass/Vol] 13.0 mg/dL Normal 7.0-18.0 [place] Comment on above: Performed By: #### C RP, CMP ####[facility] Pbmvljggac209[address] [place], [place] [address]Dr. Lizandro Hemphill Urea nitrogen/Creatinin e [Mass ratio] 16.2 mg/mg Normal [place] Comment on above: Performed By: #### C RP, CMP ####[facility] Rvbclssafr880[address] [place], [place] [address]Dr. Lizandro Hemphill PROTIMEon 06-28-2022 INR Coag (PPP) [Relative time] 1.39 {INR} Normal [place] Comment on above: Performed By: #### P T ####[facility] Uqbsbyrlsz1280[address] [place], [place] [address]Dr. Lizandro Hemphill INR GUIDELINES SEE BELOW Normal [facility] Comment on above: Result Comment: GUEVARA RED INR: 2.0 - 3.0 CONDITIONS NOT LISTED BELOW 2.5 - 3.5 FOR PROSTHETIC HEART VALVE REPLACEMENT 2.5 - 3.5 RECURRENT THROMBOSIS Performed By: #### P T ####[facility] Ogqymhgial2813 [place] [address]Dr. Lizandro Hemphill PT Coag (PPP) [Time] 14.5 s Critically high 9.0-11.6 [place] Comment on above: Performed By: #### P T ####[facility] Boqmotykuf5739[address] [place], [place] [address]Dr. Lizandro Hemphill CBC AUTO DIFFon 06-27-2022 BASO # 0.1 103/ul Normal 0.0-0.1 [place] Comment on above: Performed By: #### C BC ####[facility] Xmkfdqfgtl4255[address] [place], [place] [address]Dr. Lizandro Hemphill Basophils/100 WBC (Bld) 1.1 % Normal 0.2-2.0 [place] Comment on above: Performed By: #### C BC ####[facility] Mvwiinxsjx3019[address] [place], [place] [address]Dr. Lizandro Hemphill EO # 0.1 103/ul Normal 0.0-0.7 [place] Comment on above: Performed By: #### C BC ####[facility] Mwhvstiwjv4339[address] [place], [place] [address]Dr. Lizandro Hemphill Eosinophils/100 WBC (Bld) 1.3 % Normal 0.9-7.0 [facility] Comment on above: Performed By: #### C BC ####[facility] Gedovsryjp6796[address] [place], [place] [address]Dr. Lizandro Hemphill Erythrocyte distribution width (RBC) [Ratio] 19.8 % Critically high 11.0-15.0 [place] Comment on above: Performed By: #### C BC ####[facility] Mjzdmpekgz9750[address] [place], [place] [address]Dr. Lizandro Hemphill Hematocrit (Bld) [Volume fraction] 34.4 % Critically low 36.0-48.0 [place] Comment on above: Performed By: #### C BC ####[facility] Pisuxbsxfc2783 [place] [address]Dr. Lizandro Hemphill Hemoglobin (Bld) [Mass/Vol] 11.1 g/dL Critically low 12.0-16.0 [place] Comment on above: Performed By: #### C BC ####[facility] Xbuqosyhhi1193 [place] [address]Dr. Lizandro Hemphill IG # 0.01 10e3/ul Normal 0.00-0.03 [place] Comment on above: Performed By: #### C BC ####[facility] Utgtxilrev8479[address] [place], [place] [address]Dr. Lizandro Hemphill IG % 0.2 % Normal 0.0-0.5 [place] Comment on above: Performed By: #### C BC ####[facility] Jjxipxbqiv6987[address] [place], [place] [address]Dr. Lizandro Hemphill LYMPH # 1.3 103/ul Normal 1.2-3.8 [facility] Comment on above: Performed By: #### C BC ####[facility] Zhjxlygnda5429[address] [place], [place] [address]Dr. Lizandro Hemphill Lymphocytes/100 WBC (Bld) 24.6 % Normal 20.5-60.0 [place] Comment on above: Performed By: #### C BC ####[facility] Emtqrrypyc882[address] [place], [place] [address]Dr. Lizandro Hemphill MANUAL DIFF REQ NO Normal [facility] Comment on above: Performed By: #### C BC ####[facility] Jasexbfecr[address] [place], [place] [address]Dr. Lizandro Hemphill MCH (RBC) [Entitic mass] 27.4 pg Normal 26.7-34.0 [facility] Comment on above: Performed By: #### C BC ####[facility] Wtpvghppyh0426[address] [place], [place] [address]Dr. Lizandro Hemphill MCHC (RBC) [Mass/Vol] 32.3 g/dL Normal 29.9-35.2 [facility] Comment on above: Performed By: #### C BC ####[facility] Zqaguebqnv2576 [place] [id number]. Lizandro Hemphill MCV (RBC) [Entitic vol] 84.9 fL Normal 81.0-99.0 [place] Comment on above: Performed By: #### C BC ####[facility] Kwzgycohfz1131 [place] [id number]. Lizandro Hemphill MONO # 0.8 103/ul Normal 0.3-0.8 [place] Comment on above: Performed By: #### C BC ####[facility] Uodkzdwfvv4772 [place] [address]Dr. Lizandro Hemphill Monocytes/100 WBC (Bld) 13.9 % Critically high 1.7-12.0 [place] Comment on above: Performed By: #### C BC ####[facility] Lkddvhnafg3154[address] [place], [place] [address]Dr. Lizandro Hemphill NEUT # 3.2 103/ul Normal 1.4-6.5 [place] Comment on above: Performed By: #### C BC ####[facility] Dtxlsrtfhg8217[address] [place], [place] [address]Dr. Lizandro Hemphill Neutrophils/100 WBC (Bld) 58.9 % Normal 43.0-75.0 [facility] Comment on above: Performed By: #### C BC ####[facility] Vlegegnvmb0425[address] [place], [place] [address]Dr. Lizandro Hemphill Platelet mean volume (Bld) [Entitic vol] 10.6 fL Normal 9.5-13.5 [facility] Comment on above: Performed By: #### C BC ####[facility] Aynsikqnrf[address] [place], [place] [address]Dr. Lizandro Hemphill PLT 228 103/ul Normal 150-450 [facility] Comment on above: Performed By: #### C BC ####[facility] Pocxyowfeg9012 [place] [id number]. Shanikaannie Joby RBC 4.05 106/ul Critically low 4.20-5.40 [facility] Comment on above: Performed By: #### C BC ####[facility] Ohgxsgsrxa3929 [place] [address]Dr. Lizandro Hemphill WBC 5.4 103/ul Normal 4.0-11.0 [place] Comment on above: Performed By: #### C BC ####[facility] Dpctkhatcq0795 [place] [address]Dr. Lizandro Hemphill CRPon 06-27-2022 CRP [Mass/Vol] mg/L Normal <=1.0 [facility] Comment on above: Performed By: #### C RP, CMP ####[facility] Hjcxcuobvy9371 [place] [address]Dr. Lizandro Hemphill PROF 14(COMP METB)on 023 Albumin [Mass/Vol] 2.9 g/dL Critically low 3.4-5.0 [facility] Comment on above: Performed By: #### C RP, CMP ####[facility] Sqevdunafg5280[address] [place], [place] [address]Dr. Lizandro Hemphill Albumin/Globulin [Mass ratio] 0.9 {ratio} Normal [place] Comment on above: Performed By: #### C RP, CMP ####[facility] Cjpeojuevd050[address] [place], [place] [address]Dr. Lizandro Hemphill ALP [Catalytic activity/Vol] 144 U/L Critically high 46-116 [place] Comment on above: Performed By: #### C RP, CMP ####[facility] Idvzngiyfv7457 [place] [address]Dr. Lizandro Hemphill ALT [Catalytic activity/Vol] 52 U/L Normal 14-59 [place] Comment on above: Performed By: #### C RP, CMP ####[facility] Qwzsntllza3239 [place] [address]Dr. Lizandro Hemphill Anion gap [Moles/Vol] 11.5 mmol/L Normal [place] Comment on above: Performed By: #### C RP, CMP ####[facility] Ccsccdduvi9328 [place] [address]Dr. Lizandro Hemphill AST [Catalytic activity/Vol] 26 U/L Normal 15-37 [place] Comment on above: Performed By: #### C RP, CMP ####[facility] Vzefvzztzn2654[address] [place], [place] [address]Dr. Lizandro Hemphill Bilirubin [Mass/Vol] 0.3 mg/dL Normal 0.2-1.0 [place] Comment on above: Performed By: #### C RP, CMP ####[facility] Stflwqalgi9104[address] [place], [place] [address]Dr. Lizandro Hemphill Calcium [Mass/Vol] 8.4 mg/dL Critically low 8.5-10.[address] [facility] Comment on above: Performed By: #### C RP, CMP ####[facility] Bvbcfdumoz7277[address] [place], [place] [address]Dr. Lizandro Hemphill Chloride [Moles/Vol] 106 mmol/L Normal 98-107 [facility] Comment on above: Performed By: #### C RP, CMP ####[facility] Ghluoazvdj5028[address] [place], [place] [address]Dr. Lizandro Hemphill CO2 [Moles/Vol] 28.2 mmol/L Normal 21.0-32.0 [facility] Comment on above: Performed By: #### C RP, CMP ####[facility] Udreqlzeyd3447[address] [place], [place] [address]Dr. Lizandro Hemphill Creatinine [Mass/Vol] 0.72 mg/dL Normal 0.55-1.02 [place] Comment on above: Performed By: #### C RP, CMP ####[facility] Vyskmlrpzu043[address] [place], [place] [address]Dr. Lizandro Joby EGFR-AF CITIZ[place] >60 Normal >=60 [facility] Comment on above: Performed By: #### C RP, CMP ####[facility] Ahxvggujxt9705[address] [place], [place] [address]Dr. Shanikaannie Joby EGFR-NON AF CITIZ[place] OF [place] >60 Normal >=60 [place] Comment on above: Performed By: #### C RP, CMP ####[facility] Ghdvuzasdg1083[address] [place], [place] [address]Dr. Lizandro Hemphill Globulin (S) [Mass/Vol] 3.3 g/dL Normal [place] Comment on above: Performed By: #### C RP, CMP ####[facility] Njassbtnhh3110[address] [place], [place] [address]Dr. Lizandro Hemphill Glucose [Mass/Vol] 89 mg/dL Normal 74-106 [facility] Comment on above: Performed By: #### C RP, CMP ####[facility] Ahzjrqrcpy9768[address] [place], [place] [address]Dr. Lizandro Hemphill Potassium [Moles/Vol] 3.7 mmol/L Normal 3.5-5.1 [place] Comment on above: Performed By: #### C RP, CMP ####[facility] Xidqcljxho119[address] [place], [place] [address]Dr. Shanikaannie Hemphill Protein [Mass/Vol] 6.2 g/dL Critically low 6.4-8.[address] [facility] Comment on above: Performed By: #### C RP, CMP ####[facility] Fglyhpbktm58[address] [place], [place] [address]Dr. Lizandro Hemphill Sodium [Moles/Vol] 142 mmol/L Normal 136-145 [facility] Comment on above: Performed By: #### C RP, CMP ####[facility] Fwnlvtzqnz6665[address] [place], [place] [address]Dr. Lizandro Hemphill Urea nitrogen [Mass/Vol] 13.0 mg/dL Normal 7.0-18.0 [place] Comment on above: Performed By: #### C RP, CMP ####[facility] Vhccqpyudw776[address] [place], [place] [address]Dr. Shanikaannie Joby Urea nitrogen/Creatinin e [Mass ratio] 18.1 mg/mg Normal [place] Comment on above: Performed By: #### C RP, CMP ####[facility] Heqynaddsp8967[address] [place], [place] [address]Dr. Lizandro Hemphill PROTIMEon 06-27-2022 INR Coag (PPP) [Relative time] 1.20 {INR} Normal [place] Comment on above: Performed By: #### P T ####[facility] Kwipwefhwf[address] [place], [place] [address]DrCiro Hemphill INR GUIDELINES SEE BELOW Normal [facility] Comment on above: Result Comment: GUEVARA RED INR: 2.0 - 3.0 CONDITIONS NOT LISTED BELOW 2.5 - 3.5 FOR PROSTHETIC HEART VALVE REPLACEMENT 2.5 - 3.5 RECURRENT THROMBOSIS Performed By: #### P T ####[facility] Mfcsvtiipl95[address] [place], [place] [address]DrCiro Hemphill PT Coag (PPP) [Time] 12.6 s Critically high 9.0-11.6 [place] Comment on above: Performed By: #### P T ####[facility] Nwwhyqremj88[address] [place], [place] [address]DrCiro Hemphill AMYLASEon 06-26-2022 Amylase [Catalytic activity/Vol] 73 U/L Normal 25-115 [place] Comment on above: Performed By: #### C MP, ALICIA, LIPA ####[facility] Wvksngqcvl5[address] [place], [place] [address]DrCiro Hemphill CBC AUTO DIFFon 06-26-2022 BASO # 0.1 103/ul Normal 0.0-0.1 [place] Comment on above: Performed By: #### C BC ####[facility] Rxhecpktki5536[address] [place], [place] [address]DrCiro Hemphill Basophils/100 WBC (Bld) 0.9 % Normal 0.2-2.0 [facility] Comment on above: Performed By: #### C BC ####[facility] Ihuxtbqzmf9[address] [place], [place] [address]DrCiro Hemphill EO # 0.0 103/ul Normal 0.0-0.7 [facility] Comment on above: Performed By: #### C BC ####[facility] Njofadmtgu08[address] [place], [place] [address]DrCiro Hemphill Eosinophils/100 WBC (Bld) 0.1 % Critically low 0.9-7.0 [place] Comment on above: Performed By: #### C BC ####[facility] Uspfnhadxa3526[address] [place], [place] [address]DrCiro Hemphill Erythrocyte distribution width (RBC) [Ratio] 19.8 % Critically high 11.0-15.0 [facility] Comment on above: Performed By: #### C BC ####[facility] Obyrrojvyv49[address] [place] [address]Dr. Lizandro Hemphill Hematocrit (Bld) [Volume fraction] 39.1 % Normal 36.0-48.0 [facility] Comment on above: Performed By: #### C BC ####[facility] Yqsnitrmnz475[address] [place], [place] [address]Dr. Lizandro Joby Hemoglobin (Bld) [Mass/Vol] 12.6 g/dL Normal 12.0-16.0 [facility] Comment on above: Performed By: #### C BC ####[facility] Xkurvsltof032[address] [place], [place] [address]Dr. Lizandro Hemphill IG # 0.04 10e3/ul Critically high 0.00-0.03 [facility] Comment on above: Performed By: #### C BC ####[facility] Gtnrosirky6499[address] [place], [place] [address]Dr. Shanikaannie Hemphill IG % 0.5 % Normal 0.0-0.5 [place] Comment on above: Performed By: #### C BC ####[facility] Jzhqnyusrv101[address] [place], [place] [address]Dr. Lizandro Hemphill LYMPH # 1.0 103/ul Critically low 1.2-3.8 [facility] Comment on above: Performed By: #### C BC ####[facility] Culpclrcdy7184[address] [place], [place] [address]Dr. Lizandro Hemphill Lymphocytes/100 WBC (Bld) 12.9 % Critically low 20.5-60.0 [facility] Comment on above: Performed By: #### C BC ####[facility] Assdaireef8625[address] [place], [place] [address]DrCiro Hemphill MANUAL DIFF REQ NO Normal The [facility] Comment on above: Performed By: #### C BC ####[facility] Mpzzrlbnwj1066[address] [place], [place] [address]Dr. Lizandro Hemphill MCH (RBC) [Entitic mass] 27.2 pg Normal 26.7-34.0 [facility] Comment on above: Performed By: #### C BC ####[facility] Ftjudqhpxh98[address] [place] [address]Dr. Lizandro Hemphill MCHC (RBC) [Mass/Vol] 32.2 g/dL Normal 29.9-35.2 [facility] Comment on above: Performed By: #### C BC ####[facility] Fjigcddnmv499[address] [place], [place] [address]Dr. Lizandro Joby MCV (RBC) [Entitic vol] 84.3 fL Normal 81.0-99.0 [facility] Comment on above: Performed By: #### C BC ####[facility] Kbtuwmqwjx9964[address] [place], [place] [address]DrCiro Hemphill MONO # 0.8 103/ul Normal 0.3-0.8 [facility] Comment on above: Performed By: #### C BC ####[facility] Xxcfpsahsm349[address] [place], [place] [address]Dr. Shanikaannie Hemphill Monocytes/100 WBC (Bld) 10.2 % Normal 1.7-12.0 [facility] Comment on above: Performed By: #### C BC ####[facility] Iwcktiwpmf3086[address] [place], [place] [address]Dr. Lizandro Hemphill NEUT # 5.9 103/ul Normal 1.4-6.5 [facility] Comment on above: Performed By: #### C BC ####[facility] Ifdydkppux0549[address] [place], [place] [address]Dr. Shanikaannie Hemphill Neutrophils/100 WBC (Bld) 75.4 % Critically high 43.0-75.0 [facility] Comment on above: Performed By: #### C BC ####[facility] Syokvyuhbp095[address] [place], [place] [address]Dr. Lizandro Joby Platelet mean volume (Bld) [Entitic vol] 10.2 fL Normal 9.5-13.5 [facility] Comment on above: Performed By: #### C BC ####[facility] Fbeyzxxhhx3044 [place], [place] [address]Vh. Lizandro Hemphill PLT 253 103/ul Normal 150-450 [facility] Comment on above: Performed By: #### C BC ####[facility] Giokijmfus8248 [place], [place] [address]Ey. Lizandro Hemphill RBC 4.64 106/ul Normal 4.20-5.40 [facility] Comment on above: Performed By: #### C BC ####[facility] Kafasahzzn8863 [place], [place] [address]Ns. Lizandro Hemphill WBC 7.8 103/ul Normal 4.0-11.0 [facility] Comment on above: Performed By: #### C BC ####[facility] Agumcmikou3296 [place], [place] [address]T[address]. Liz[address] Hem[address] CT ABD/PELVIS WO CONon 06-26 CT ABD/PELVIS WO CON Normal [facility] Covid-19 PCR (CVDTBH)on SARS-CoV-2 (COVID-19) RNA VERITO+probe Ql (Unsp spec) Not detected Normal NOT DETECTED [facility] Comment on above: Result Comment: When [...] for this test is supported by the [place] of Health and Human Service's declaration that [...] be used). Performed By: #### C VDTBH ####[facility] Bkvfwkzjur7[address] [place] [id number]. Lizandro Hemphill ER URINE PROFILEon 3 Bilirubin Ql (U) Negative Normal NEGATIVE [facility] Comment on above: Performed By: #### E RUR ####[facility] Ekqlzcmpxy4694[address] [place], [place] [address]Dr. Shanikaannie Hemphill Clarity (U) CLEAR Normal CLEAR [facility] Comment on above: Performed By: #### E RUR ####[facility] Mndovbwlon1055[address] [place], [place] [address]Dr. Shanikaannie Hemphill Color (U) LT. YELLOW Normal YELLOW [place] Comment on above: Performed By: #### E RUR ####[facility] Ujtwikdevy1778[address] [place], [place] [address]Dr. Lizandro Hemphill ERUAHD A micrscopic examina tion will be performed if indicated. Normal [facility] Comment on above: Performed By: #### E RUR ####[facility] Wqnxmbxevf5108[address] [place], [place] [address]Dr. Shanikaannie Joby Glucose Ql (U) Negative Normal NEGATIVE [facility] Comment on above: Performed By: #### E RUR ####[facility] Xxzzaknlmk9694[address] [place], [place] [address]Dr. Lizandro Hemphill Hemoglobin Ql (U) Negative Normal NEGATIVE [facility] Comment on above: Performed By: #### E RUR ####[facility] Uvfslnbpkz0416[address] [place], [place] [address]Dr. Lizandro Hemphill Ketones Ql (U) Negative Normal NEGATIVE [facility] Comment on above: Performed By: #### E RUR ####[facility] Jywyutdehr060[address] [place], [place] [address]Dr. Lizandro Hemphill LEUKOCYTES Negative Normal NEGATIVE [place] Comment on above: Performed By: #### E RUR ####[facility] Sshzpsvkuv0865[address] [place], [place] [address]Dr. Lizandro Hemphill Nitrite Ql (U) Negative Normal NEGATIVE [facility] Comment on above: Performed By: #### E RUR ####[facility] Kcpdeirgck6849[address] [place], [place] [address]Dr. Lizandro Hemphill pH (U) 7.5 [pH] Normal 5-9 [facility] Comment on above: Performed By: #### E RUR ####[facility] Eozdmtofsv3515 [place] [address]Dr. Shanikaannie Joby SPEC GRAVITY 1.010 Normal 1.005-<=1.[address] [facility] Comment on above: Performed By: #### E RUR ####[facility] Nqodxvatnw1603[address] [place], [place] [address]Dr. Lizandro Hemphill UA PROTEIN Negative Normal NEGATIVE/ TRACE [facility] Comment on above: Performed By: #### E RUR ####[facility] Cxmhmubgvl3547[address] [place], [place] [address]Dr. Lizandro Hemphill UR MICRO IND NOT INDICATED Normal [facility] Comment on above: Performed By: #### E RUR ####[facility] Mvqbpntsbq674[address] [place], [place] [address]Dr. Lizandro Hemphill Urobilinogen Qn (U) 0.2 {Cassy'U}/dL Normal 0.2 - 1.0 [place] Comment on above: Performed By: #### E RUR ####[facility] Dmnaamzgyn7728[address] [place], [place] [address]Dr. Lizandro Hemphill LACTATE/LACTIC ACIDon 2022 Lactate [Moles/Vol] 1.3 mmol/L Normal 0.4-2.0 [facility] Comment on above: Performed By: #### L ACT ####[facility] Gienqagbpy8950[address] [place], [place] [address]Dr. Lizandro Hemphill LIPASEon 06-26-2022 Lipase [Catalytic activity/Vol] 161.0 U/L Normal 73.0-393.0 [facility] Comment on above: Performed By: #### C ALICIA AVILA LIPA ####[facility] Srqarfkshf2989[address] [place], [place] [address]Dr. Lizandro Hemphill PROF 14(COMP METB)on 023 Albumin [Mass/Vol] 3.9 g/dL Normal 3.4-5.0 The [facility] Comment on above: Performed By: #### C MARGARITA ALICIA, LIPA ####[facility] Xbruudnssb58[address] [place] [address]Dr. Lizandro Joby Albumin/Globulin [Mass ratio] 1.0 {ratio} Normal [place] Comment on above: Performed By: #### C MP, ALICIA, LIPA ####[facility] Uxceemggpw33[address] [place] [address]Dr. Lizandro Joby ALP [Catalytic activity/Vol] 177 U/L Critically high 46-116 [place] Comment on above: Performed By: #### C MP, ALICIA, LIPA ####[facility] Hrqdfewgeo8135 [place] [address]Dr. Lizandro Hemphill ALT [Catalytic activity/Vol] 83 U/L Critically high 14-59 [place] Comment on above: Performed By: #### C MP, ALICIA, LIPA ####[facility] Qcqcawpctx4627 [place] [address]Dr. Lizandro Hemphill Anion gap [Moles/Vol] 10.7 mmol/L Normal [place] Comment on above: Performed By: #### C MP, ALICIA, LIPA ####[facility] Xcfezkjuat4165[address] [place], [place] [address]Dr. Shanikaannie Hemphill AST [Catalytic activity/Vol] 53 U/L Critically high 15-37 [place] Comment on above: Performed By: #### C MP, ALICIA, LIPA ####[facility] Dbycwbtnkp0780 [place] [address]Dr. Lizandro Hemphill Bilirubin [Mass/Vol] 0.4 mg/dL Normal 0.2-1.0 [place] Comment on above: Performed By: #### C MP, ALICIA, LIPA ####[facility] Drxjfofrwr4133 [place] [address]Dr. Lizandro Hemphill Calcium [Mass/Vol] 11.2 mg/dL Critically high 8.5-10.1 [facility] Comment on above: Performed By: #### C MP, ALICIA, LIPA ####[facility] Urglmfdwvn3[address] [place] [address]Dr. Lizandro Hemphill Chloride [Moles/Vol] 101 mmol/L Normal 98-107 [facility] Comment on above: Performed By: #### C ALICIA AVILA, LIPA ####[facility] Bmhgbukpho64[address] [place] [address]Dr. Lizandro Hemphill CO2 [Moles/Vol] 29.5 mmol/L Normal 21.0-32.0 [facility] Comment on above: Performed By: #### C MARGARITA ALICIA, LIPA ####[facility] Ekjnlmnvlm74[address] [place] [address]Dr. Lizandro Hemphill Creatinine [Mass/Vol] 0.79 mg/dL Normal 0.55-1.02 [facility] Comment on above: Performed By: #### C ALICIA AVILA LIPA ####[facility] Gldqtaskat67[address] [place] [address]Dr. Lizandro Hemphill EGFR-AF CITIZEN OF [place] >60 Normal >=60 [facility] Comment on above: Performed By: #### C ALICIA AVILA, LIPA ####[facility] Aqqmwzxboo6785 [place] [address]Dr. Lizandro Hemphill EGFR-NON AF CITIZEN OF [place] >60 Normal >=60 [facility] Comment on above: Performed By: #### C ALICIA AVILA, LIPA ####[facility] Ajlqipvugk2312[address] [place], [place] [address]Dr. Lizandro Hemphill Globulin (S) [Mass/Vol] 4.0 g/dL Normal [place] Comment on above: Performed By: #### C ALICIA AVILA, LIPA ####[facility] Jwwldrnxhd3962 [place] [address]Dr. Lizandro Hemphill Glucose [Mass/Vol] 96 mg/dL Normal 74-106 The [facility] Comment on above: Performed By: #### C ALICIA AVILA, LIPA ####[facility] Qolurbqccf6398[address] [place], [place] [address]Dr. Lizandro Hemphill Potassium [Moles/Vol] 4.2 mmol/L Normal 3.5-5.1 [facility] Comment on above: Performed By: #### C MARGARITA ALICIA, LIPA ####[facility] Hyqcbibpsz[address] [place], [place] [address]Dr. Lizandro Hemphill Protein [Mass/Vol] 7.9 g/dL Normal 6.4-8.2 The [facility] Comment on above: Performed By: #### C ALICIA AVILA LIPA ####[facility] Usjjunnwyh2520 [place] [address]Dr. Lizandro Hemphill Sodium [Moles/Vol] 137 mmol/L Normal 136-145 The [facility] Comment on above: Performed By: #### C ALICIA AVILA LIPA ####[facility] Hdghdxqcsn1402 [place] [address]Dr. Lizandro Hemphill Urea nitrogen [Mass/Vol] 27.0 mg/dL Critically high 7.0-18.0 [facility] Comment on above: Performed By: #### C ALICIA AVILA LIPA ####[facility] Pnnpygfods3121 [place] [address]Dr. Lizandro Hemphill Urea nitrogen/Creatinin e [Mass ratio] 34.2 mg/mg Normal [facility] Comment on above: Performed By: #### C ALICIA AVILA LIPA ####[facility] Dbvlxpctul9368 [place] [address]Dr. Lizandro Hemphill PROTIMEon 06-26-2022 INR Coag (PPP) [Relative time] 1.07 {INR} Normal [facility] Comment on above: Performed By: #### P T ####[facility] Jusarvbevx3550[address] [place], [place] [address]Dr. Lizandro Hemphill INR GUIDELINES SEE BELOW Normal [facility] Comment on above: Result Comment: GUEVARA RED INR: 2.0 - 3.0 CONDITIONS NOT LISTED BELOW 2.5 - 3.5 FOR PROSTHETIC HEART VALVE REPLACEMENT 2.5 - 3.5 RECURRENT THROMBOSIS Performed By: #### P T ####[facility] Pfwevpasci9908[address] [place], [place] [address]Dr. Lizandro Hemphill PT Coag (PPP) [Time] 11.3 s Normal 9.0-11.6 [facility] Comment on above: Performed By: #### P T ####[facility] Yjawevglgv130[address] [place], [place] [address]Dr. Lizandro Hemphill INR Coag (PPP) [Relative time] 0.96 {INR} Normal [facility] Comment on above: Performed By: #### P T ####[facility] Ggufxvsdsx7793[address] [place], [place] [address]DrCiro Hemphill INR GUIDELINES SEE BELOW Normal [facility] Comment on above: Result Comment: GUEVARA RED INR: 2.0 - 3.0 CONDITIONS NOT LISTED BELOW 2.5 - 3.5 FOR PROSTHETIC HEART VALVE REPLACEMENT 2.5 - 3.5 RECURRENT THROMBOSIS Performed By: #### P T ####[facility] Ymzjzbruma204140 [address] [place], [place] [address]Dr. Lizandro Hemphill PT Coag (PPP) [Time] 10.2 s Normal 9.0-11.6 [facility] Comment on above: Performed By: #### P T ####[facility] Rxbdgfmowu838140 [address] [place], [place] [address]Dr. Lizandro Hemphill C. DIFF PCRon 05-31-2022 C. DIFFICILE PCR Negative Normal NEGATIVE [facility] Comment on above: Performed By: #### C DIFPOC ####[facility] Wgsfkoopev3810[address] [place], [place] [address]DrCiro Hemphill CBC AUTO DIFFon 05-31-2022 BASO # 0.0 103/ul Normal 0.0-0.1 [facility] Comment on above: Performed By: #### C BC ####[facility] Jxxsmdnnqn3153[address] [place], [place] [address]DrCiro Hemphill Basophils/100 WBC (Bld) 0.2 % Normal 0.2-2.0 [facility] Comment on above: Performed By: #### C BC ####[facility] Aauozkbkwd5712[address] [place], [place] [address]DrCiro Hemphill EO # 0.0 103/ul Normal 0.0-0.7 [facility] Comment on above: Performed By: #### C BC ####[facility] Nbeujwanre027[address] [place], [place] [address]DrCiro Hemphill Eosinophils/100 WBC (Bld) 0.1 % Critically low 0.9-7.0 [facility] Comment on above: Performed By: #### C BC ####[facility] Tnksfhszhb1452 [place] [address]Dr. Lizandro Hemphill Erythrocyte distribution width (RBC) [Ratio] 19.2 % Critically high 11.0-15.0 [place] Comment on above: Performed By: #### C BC ####[facility] Fxwjmyipvx749240 [address] [place], [place] [address]Dr. Lizandro Hemphill Hematocrit (Bld) [Volume fraction] 31.1 % Critically low 36.0-48.0 [place] Comment on above: Performed By: #### C BC ####[facility] Wweweixniq2538[address] [place], [place] [address]Dr. Lizandro Hemphill Hemoglobin (Bld) [Mass/Vol] 10.1 g/dL Critically low 12.0-16.0 [place] Comment on above: Performed By: #### C BC ####[facility] Zumvmfjxes9698[address] [place], [place] [address]DrCiro Hemphill IG # 0.07 10e3/ul Critically high 0.00-0.03 [facility] Comment on above: Performed By: #### C BC ####[facility] Aoiqxcolje8927[address] [place], [place] [address]DrCiro Hemphill IG % 0.6 % Critically high 0.0-0.5 [facility] Comment on above: Performed By: #### C BC ####[facility] Ffhatdhjst617[address] [place], [place] [address]DrCiro Hemphill LYMPH # 0.6 103/ul Critically low 1.2-3.8 [facility] Comment on above: Performed By: #### C BC ####[facility] Cdfzryigda022[address] [place], [place] [address]DrCiro Hemphill Lymphocytes/100 WBC (Bld) 5.1 % Critically low 20.5-60.0 [place] Comment on above: Performed By: #### C BC ####[facility] Kmavdmeypn8937[address] [place], [place] [address]DrCiro Hemphill MANUAL DIFF REQ NO Normal The [facility] Comment on above: Performed By: #### C BC ####[facility] Xzjjguijgf1737 [place] [address]Dr. Lizandro Hemphill MCH (RBC) [Entitic mass] 27.8 pg Normal 26.7-34.0 [place] Comment on above: Performed By: #### C BC ####[facility] Mpyvquguxe5126 [place] [address]Dr. Lizandro Hemphill MCHC (RBC) [Mass/Vol] 32.5 g/dL Normal 29.9-35.2 [facility] Comment on above: Performed By: #### C BC ####[facility] Bifambxlzp4725 [place] [address]Dr. Lizandro Hemphill MCV (RBC) [Entitic vol] 85.7 fL Normal 81.0-99.0 [facility] Comment on above: Performed By: #### C BC ####[facility] Zraozxzusi484[address] [place], [place] [address]DrCiro Hemphill MONO # 0.9 103/ul Critically high 0.3-0.[address] [facility] Comment on above: Performed By: #### C BC ####[facility] Afovctrumh3674[address] [place], [place] [address]DrCiro Hemphill Monocytes/100 WBC (Bld) 7.4 % Normal 1.7-12.0 [facility] Comment on above: Performed By: #### C BC ####[facility] Rtwxtmvafw2194[address] [place], [place] [address]DrCiro Hemphill NEUT # 10.5 103/ul Critically high 1.4-6.5 [facility] Comment on above: Performed By: #### C BC ####[facility] Prwlmogttm1804[address] [place], [place] [address]DrCiro Hemphill Neutrophils/100 WBC (Bld) 86.6 % Critically high 43.0-75.0 [facility] Comment on above: Performed By: #### C BC ####[facility] Rxeadrhjam3587[address] [place], [place] [address]DrCiro Hemphill Platelet mean volume (Bld) [Entitic vol] 10.9 fL Normal 9.5-13.5 [facility] Comment on above: Performed By: #### C BC ####[facility] Gxoqflvjdx5564 [place] [address]Dr. Lizandro Hemphill PLT 230 103/ul Normal 150-450 [facility] Comment on above: Performed By: #### C BC ####[facility] Xdewrjwklx3040 [place] [address]Dr. Lizandro Hemphill RBC 3.63 106/ul Critically low 4.20-5.[address] [facility] Comment on above: Performed By: #### C BC ####[facility] Igdesfyjaq5689[address] [place], [place] [address]Dr. Lizandro Hemphill WBC 12.1 103/ul Critically high 4.0-11.0 [facility] Comment on above: Performed By: #### C BC ####[facility] Bcypkmioyc5784[address] [place], [place] [address]Dr. Shanikaannie Joby GI PANEL (PCR)on 05-31-2022 Adenovirus F 40/41 Not detected Normal NOT DETECTED [facility] Comment on above: Performed By: #### G IPANEL ####[facility] Piacjejglj178[address] [place], [place] [address]Dr. Lizandro Hemphill Astrovirus Not detected Normal NOT DETECTED [facility] Comment on above: Performed By: #### G IPANEL ####[facility] Osfbrutayf5947[address] [place], [place] [address]Dr. Lizandro Hemphill C. Diff toxin A/B Not detected Normal NOT DETECTED [facility] Comment on above: Performed By: #### G IPANEL ####[facility] Fxiptisryi1663[address] [place], [place] [address]Dr. Lizandro Hemphill Campylobacter Not detected Normal NOT DETECTED The [facility] Comment on above: Performed By: #### G IPANEL ####[facility] Ggrcrizsjl0025[address] [place], [place] [address]Dr. Lizandro Hemphill Cryptosporidium Not detected Normal NOT DETECTED The [facility] Comment on above: Performed By: #### G IPANEL ####[facility] Mqhwqtkqgc1131 [place] [address]Dr. Lizandro Hemphill Cyclos. Cayetanensis Not detected Normal NOT DETECTED [facility] Comment on above: Performed By: #### G IPANEL ####[facility] Yzndwafbbr8804[address] [place], [place] [address]Dr. Lizandro Hemphill E. Coli O157 Not Applicable Normal Not Applicable [facility] Comment on above: Performed By: #### G IPANEL ####[facility] Uxarbopkzh4306[address] [place], [place] [address]Dr. Lizandro Hemphill E. histolytica Not detected Normal NOT DETECTED The [facility] Comment on above: Performed By: #### G IPANEL ####[facility] Ubvldtmigo1830[address] [place], [place] [address]Dr. Lizandro Hemphill EAEC Not detected Normal NOT DETECTED [facility] Comment on above: Performed By: #### G IPANEL ####[facility] Gnpyfebfuh785[address] [place], [place] [address]Dr. Lizandro Hemphill EIEC Not detected Normal NOT DETECTED [facility] Comment on above: Performed By: #### G IPANEL ####[facility] Ayglexkovw292[address] [place], [place] [address]Dr. Lizandro Hemphill EPEC Not detected Normal NOT DETECTED [facility] Comment on above: Performed By: #### G IPANEL ####[facility] Iochxnwqkv8780[address] [place], [place] [address]Dr. Lizandro Hemphill ETEC Not detected Normal NOT DETECTED [facility] Comment on above: Performed By: #### G IPANEL ####[facility] Zycbwvkbwv0512[address] [place], [place] [address]Dr. Lizandro Hemphill G. Lamblia Not detected Normal NOT DETECTED [facility] Comment on above: Performed By: #### G IPANEL ####[facility] Hzbqtuftak3965[address] [place], [place] [address]Dr. Lizandro Hemphill GIPANEL CONTROLS PASSED Normal [facility] Comment on above: Performed By: #### G IPANEL ####[facility] Kejfnqvjvt4498[address] [place], [place] [address]Dr. Lizandro [facility] HEAD[facility] GI PANEL BACTERIA Normal T [facility] Comment on above: Performed By: #### G IPANEL ####[facility] Cxblavtlyn8464 [place] [id number]. Lizandro Joby MAGALLONHD ECOLI GI PANEL DIARRHEAGEN IC E.COLI / SHIGELLA Normal [facility] Comment on above: Performed By: #### G IPANEL ####[facility] Clxozwdymn9065[address] [place], [place] [address]Dr. Shanikaannie Hemphill GIPNLHD INFO SEE BELOW Normal [facility] Comment on above: Result Comment: EAEC - Enteroaggregative E. Coli EPEC- Enteropathogenic E. Coli ETEC- Enterotoxigenic E. Coli lt/st STEC- Shigella-like toxin-producing E. Coli stx1/stx2 EIEC- Shigella/Enteroinvasive E. Coli Performed By: #### G IPANEL ####[facility] Cpraighroh260[address] [place], [place] [address]Dr. Lizandro MAGALLONHD PARASITES GI PANEL PARASITES Normal [facility] Comment on above: Performed By: #### G IPANEL ####[facility] Fpydpnensw4896[address] [place], [place] [address]Dr. Lizandro Hemphill GIPHD VIRUS GI PANEL VIRUSES Normal The [facility] Comment on above: Performed By: #### G IPANEL ####[facility] Lkeabgqvhz032[address] [place], [place] [address]Dr. Lizandro Hemphill Norovirus GI/GII Not detected Normal NOT DETECTED [facility] Comment on above: Performed By: #### G IPANEL ####[facility] Vangveuhxh8[address] [place], [place] [address]Dr. Lizandro Hemphill P. Shigelloides Not detected Normal NOT DETECTED [facility] Comment on above: Performed By: #### G IPANEL ####[facility] Zijknngljt8324[address] [place], [place] [address]Dr. Lizandro Hemphill Rotavirus A Not detected Normal NOT DETECTED The [facility] Comment on above: Performed By: #### G IPANEL ####[facility] Ncaafgcoxs[address] [place], [place] [address]Dr. Lizandro Hemphill Salmonella Not detected Normal NOT DETECTED [facility] Comment on above: Performed By: #### G IPANEL ####[facility] Xbovgtbsle3756[address] [place], [place] [address]Dr. Lizandro Hemphill Sapovirus Not detected Normal NOT DETECTED [facility] Comment on above: Performed By: #### G IPANEL ####[facility] Xcfjmfpezw9375[address] [place], [place] [address]Dr. Lizandro Hemphill STEC Not detected Normal NOT DETECTED [facility] Comment on above: Performed By: #### G IPANEL ####[facility] Htppgoisfe5516[address] [place], [place] [address]Dr. Lizandro Hemphill Vibrio Not detected Normal NOT DETECTED [facility] Comment on above: Performed By: #### G IPANEL ####[facility] Iedumtvcni3330[address] [place], [place] [address]Dr. Lizandro Hemphill Vibrio Cholera Not detected Normal NOT DETECTED The [facility] Comment on above: Performed By: #### G IPANEL ####[facility] Nwrpodczek97[address] [place], [place] [address]Dr. Lizandro Hemphill Y. Enterocolitica Not detected Normal NOT DETECTED [place] Comment on above: Performed By: #### G IPANEL ####[facility] Schxrayhzi1683[address] [place], [place] [address]Dr. Lizandro Hemphill PROF 14(COMP METB)on 023 Albumin [Mass/Vol] 2.4 g/dL Critically low 3.4-5.[address] [facility] Comment on above: Performed By: #### C MP ####[facility] Tscesgpzit7866[address] [place], [place] [address]Dr. Lizandro Hemphill Albumin/Globulin [Mass ratio] 0.9 {ratio} Normal [place] Comment on above: Performed By: #### C MP ####[facility] Wgitcibpmr249[address] [place], [place] [address]Dr. Lizandro Hemphill ALP [Catalytic activity/Vol] 77 U/L Normal 46-116 [place] Comment on above: Performed By: #### C MP ####[facility] Prccgwdbpv6986 [place] [id number]. Lizandro Hemphill ALT [Catalytic activity/Vol] 20 U/L Normal 14-59 [facility] Comment on above: Performed By: #### C MP ####[facility] Zewkmsmbzh8025 [place] [id number]. Lizandro Hemphill Anion gap [Moles/Vol] 10.9 mmol/L Normal [place] Comment on above: Performed By: #### C MP ####[facility] Wrhrwitzvk2510 [place] [id number]. Lizandro Hemphill AST [Catalytic activity/Vol] 15 U/L Normal 15-37 [facility] Comment on above: Performed By: #### C MP ####[facility] Ypqrvxwtqk8109 [place] [address]Dr. Lizandro Hemphill Bilirubin [Mass/Vol] 0.2 mg/dL Normal 0.2-1.0 [facility] Comment on above: Performed By: #### C MP ####[facility] Iofvjjteyy3264 [place] [id number]. Lizandro Hemphill Calcium [Mass/Vol] 7.8 mg/dL Critically low 8.5-10.[address] [facility] Comment on above: Performed By: #### C MP ####[facility] Nnkgcyvqvz1674 [place] [id number]. Lizandro Hemphill Chloride [Moles/Vol] 106 mmol/L Normal 98-107 [facility] Comment on above: Performed By: #### C MP ####[facility] Buqxmdbrkd6872 [place] [id number]. Lizandro Hemphill CO2 [Moles/Vol] 25.3 mmol/L Normal 21.0-32.0 The [facility] Comment on above: Performed By: #### C MP ####[facility] Bqlhgoslqa4744 [place] [id number]. Lizandro Hemphill Creatinine [Mass/Vol] 1.07 mg/dL Critically high 0.55-1.02 [place] Comment on above: Performed By: #### C MP ####[facility] Ogifnusmly1003 [place] [id number]. Lizandro Hemphill EGFR-AF CITIZ[place] OF [place] >60 Normal >=60 [facility] Comment on above: Performed By: #### C MP ####[facility] Dninqtwgsm1209 [place] [address]Dr. Lizandro Hemphill EGFR-NON AF [place]IZEN OF [place] 52 mL/min/1.73m2 Critically low >=60 [place] Comment on above: Performed By: #### C MP ####[facility] Uenuvqxnic5017 [place] [address]Dr. Lizandro Hemphill Globulin (S) [Mass/Vol] 2.8 g/dL Normal [place] Comment on above: Performed By: #### C MP ####[facility] Rqqskvstwl6838 [place] [address]Dr. Lizandro Hemphill Glucose [Mass/Vol] 254 mg/dL Critically high 74-106 [facility] Comment on above: Performed By: #### C MP ####[facility] Dupwezmknh6049 [place] [address]Dr. Lizandro Hemphill Potassium [Moles/Vol] 3.2 mmol/L Critically low 3.5-5.1 [place] Comment on above: Performed By: #### C MP ####[facility] Niscteseel4098[address] [place], [place] [address]Dr. Lizandro Hemphill Protein [Mass/Vol] 5.2 g/dL Critically low 6.4-8.[address] [facility] Comment on above: Performed By: #### C MP ####[facility] Wjhftwigvd1099 [place] [address]Dr. Lizandro Hemphill Sodium [Moles/Vol] 139 mmol/L Normal 136-145 [facility] Comment on above: Performed By: #### C MP ####[facility] Fwrjphewjl888[address] [place], [place] [address]Dr. Lizandro Hemphill Urea nitrogen [Mass/Vol] 9.0 mg/dL Normal 7.0-18.0 [place] Comment on above: Performed By: #### C MP ####[facility] Vkomjwislh3375[address] [place], [place] [address]Dr. Lizandro Hemphill Urea nitrogen/Creatinin e [Mass ratio] 8.4 mg/mg Normal [facility] Comment on above: Performed By: #### C MP ####[facility] Sdijkgdwlh3686[address] [place], [place] [address]DrCiro Hemphill PROTIMEon 05-31-2022 INR Coag (PPP) [Relative time] 1.94 {INR} Normal [facility] Comment on above: Performed By: #### P T ####[facility] Yflkhjajew328[address] [place], [place] [address]DrCiro Hemphill INR GUIDELINES SEE BELOW Normal [facility] Comment on above: Result Comment: GUEVARA RED INR: 2.0 - 3.0 CONDITIONS NOT LISTED BELOW 2.5 - 3.5 FOR PROSTHETIC HEART VALVE REPLACEMENT 2.5 - 3.5 RECURRENT THROMBOSIS Performed By: #### P T ####[facility] Kiteqceydu7177[address] [place], [place] [address]DrCiro Hemphill PT Coag (PPP) [Time] 19.8 s Critically high 9.0-11.6 [facility] Comment on above: Performed By: #### P T ####[facility] Ogpnbdzwjz4127[address] [place], [place] [address]DrCiro Hemphill CBC AUTO DIFFon 05-30-2022 BASO # 0.0 103/ul Normal 0.0-0.1 [facility] Comment on above: Performed By: #### C BC ####[facility] Uauwnneetw3598[address] [place], [place] [address]DrCiro Hemphill Basophils/100 WBC (Bld) 0.3 % Normal 0.2-2.0 [facility] Comment on above: Performed By: #### C BC ####[facility] Qbomcrdlcp9076[address] [place], [place] [address]DrCiro Hemphill EO # 0.0 103/ul Normal 0.0-0.7 [facility] Comment on above: Performed By: #### C BC ####[facility] Bpxsmqjtfk5550[address] [place], [place] [address]DrCiro Hemphill Eosinophils/100 WBC (Bld) 0.0 % Critically low 0.9-7.0 [facility] Comment on above: Performed By: #### C BC ####[facility] Haxkgbihvu2613 [place] [address]Dr. Lizandro Hemphill Erythrocyte distribution width (RBC) [Ratio] 19.2 % Critically high 11.0-15.0 [place] Comment on above: Performed By: #### C BC ####[facility] Baoszolzqi4774[address] [place], [place] [address]Dr. Lizandro Hemphill Hematocrit (Bld) [Volume fraction] 35.5 % Critically low 36.0-48.0 [facility] Comment on above: Performed By: #### C BC ####[facility] Iuxihdaoiy4626[address] [place], [place] [address]Dr. Lizandro Hemphill Hemoglobin (Bld) [Mass/Vol] 11.3 g/dL Critically low 12.0-16.0 [place] Comment on above: Performed By: #### C BC ####[facility] Hotjeoznah9497[address] [place], [place] [address]Dr. Lizandro Hemphill IG # 0.03 10e3/ul Normal 0.00-0.03 [facility] Comment on above: Performed By: #### C BC ####[facility] Iclnaibddv260[address] [place], [place] [address]Dr. Lizandro Hemphill IG % 0.4 % Normal 0.0-0.5 [facility] Comment on above: Performed By: #### C BC ####[facility] Wzgrencanc1101[address] [place], [place] [address]Dr. Lizandro Hemphill LYMPH # 0.3 103/ul Critically low 1.2-3.8 [facility] Comment on above: Performed By: #### C BC ####[facility] Ztyezwsrlm1067[address] [place], [place] [address]Dr. Lizandro Hemphill Lymphocytes/100 WBC (Bld) 3.9 % Critically low 20.5-60.0 [facility] Comment on above: Performed By: #### C BC ####[facility] Eobpsdxcmz822640 [address] [place], [place] [address]Dr. Shanikaannie Hemphill MANUAL DIFF REQ NO Normal The [facility] Comment on above: Performed By: #### C BC ####[facility] Nucjyizgar1970 [place] [address]Dr. Lizandro Joby MCH (RBC) [Entitic mass] 26.9 pg Normal 26.7-34.0 [facility] Comment on above: Performed By: #### C BC ####[facility] Wwevxkhplu024[address] [place], [place] [address]Dr. Lizandro Joby MCHC (RBC) [Mass/Vol] 31.8 g/dL Normal 29.9-35.2 [facility] Comment on above: Performed By: #### C BC ####[facility] Wmhijtylhf6674 [place] [address]Dr. Shanikaannie Hemphill MCV (RBC) [Entitic vol] 84.5 fL Normal 81.0-99.0 [facility] Comment on above: Performed By: #### C BC ####[facility] Bhxwtspnyk8467[address] [place], [place] [address]Dr. Lizandro Hemphill MONO # 0.1 103/ul Critically low 0.3-0.8 [facility] Comment on above: Performed By: #### C BC ####[facility] Suyrulofka9911[address] [place], [place] [address]Dr. Lizandro Hemphill Monocytes/100 WBC (Bld) 1.0 % Critically low 1.7-12.0 [facility] Comment on above: Performed By: #### C BC ####[facility] Uqmslgbqpl3149[address] [place], [place] [address]DrCiro Hemphill NEUT # 6.5 103/ul Normal 1.4-6.5 [facility] Comment on above: Performed By: #### C BC ####[facility] Ueatajhrby7785[address] [place], [place] [address]DrCiro Hemphill Neutrophils/100 WBC (Bld) 94.4 % Critically high 43.0-75.0 [facility] Comment on above: Performed By: #### C BC ####[facility] Abwnetasgg1424[address] [place], [place] [address]Dr. Lizandro Hemphill Platelet mean volume (Bld) [Entitic vol] 10.3 fL Normal 9.5-13.5 [place] Comment on above: Performed By: #### C BC ####[facility] Pdvwhnnlll5445 [place] [address]Dr. Shanikaannie Joby PLT 248 103/ul Normal 150-450 [place] Comment on above: Performed By: #### C BC ####[facility] Lphukwqqat7628 [place] [address]Dr. Lizandro Hemphill RBC 4.20 106/ul Normal 4.20-5.40 [place] Comment on above: Performed By: #### C BC ####[facility] Xszbiwcorf7772 [place] [address]Dr. Lizandro Hemphill WBC 6.9 103/ul Normal 4.0-11.0 [place] Comment on above: Performed By: #### C BC ####[facility] Wnmyxpzgbh9377 [place] [address]Dr[address] CT ABD/PELV W CONon 05-31-[address] ABD/PELV W CON Normal [facility] PRBC LEUKOREDUCEDon 05-31-19 23 PRBC LEUKOREDUCED Normal [facility] Comment on above: Performed By: #### P RBC ####[facility] Rbgsgmkecn1087 [place] [address]Dr. Lizandro Hemphill PROF 14(COMP METB)on 023 Albumin [Mass/Vol] 2.8 g/dL Critically low 3.4-5.[address] [facility] Comment on above: Performed By: #### C MP ####[facility] Mrbmpmduvn2570 [place] [address]Dr. Lizandor Hemphill Albumin/Globulin [Mass ratio] 0.8 {ratio} Normal [place] Comment on above: Performed By: #### C MP ####[facility] Qpgibehojx6401 [place] [address]Dr. Lizandro Hemphill ALP [Catalytic activity/Vol] 100 U/L Normal 46-116 [place] Comment on above: Performed By: #### C MP ####[facility] Ndxgxzxche1086 [place] [id number]. Lizandro Hemphill ALT [Catalytic activity/Vol] 28 U/L Normal 14-59 [place] Comment on above: Performed By: #### C MP ####[facility] Pkeyuhrcxr4380 [place] [id number]. Lizandro Hemphill Anion gap [Moles/Vol] 11.5 mmol/L Normal [place] Comment on above: Performed By: #### C MP ####[facility] Fdvwypvqvd4369 [place] [id number]. Lizandro Hemphill AST [Catalytic activity/Vol] 23 U/L Normal 15-37 [place] Comment on above: Performed By: #### C MP ####[facility] Sgphgtuqhf0150[address] [place], [place] [address]Dr. Lizandro Hemphill Bilirubin [Mass/Vol] 0.3 mg/dL Normal 0.2-1.0 [place] Comment on above: Performed By: #### C MP ####[facility] Lpvjljxzym0481 [place] [address]Dr. Lizandro Hemphill Calcium [Mass/Vol] 8.4 mg/dL Critically low 8.5-10.[address] [facility] Comment on above: Performed By: #### C MP ####[facility] Ollrubtzks[address] [place], [place] [address]Dr. Lizandro Hemphill Chloride [Moles/Vol] 105 mmol/L Normal 98-107 [facility] Comment on above: Performed By: #### C MP ####[facility] Crvwtmxzps5226 [place] [id number]. Lizandro Hemphill CO2 [Moles/Vol] 30.5 mmol/L Normal 21.0-32.0 [facility] Comment on above: Performed By: #### C MP ####[facility] Pbkcibwtob[address] [place], [place] [address]Dr. Lizandro Hemphill Creatinine [Mass/Vol] 0.93 mg/dL Normal 0.55-1.02 [place] Comment on above: Performed By: #### C MP ####[facility] Qoltnlnhfe1551 [place] [id number]. Lizandro Hemphill EGFR-AF [place] >60 Normal >=60 [facility] Comment on above: Performed By: #### C MP ####[facility] Urgcvjnjne0868 [place] [id number]. Lizandro Hemphill EGFR-NON AF [place]IZ[place] >60 Normal >=60 [place] Comment on above: Performed By: #### C MP ####[facility] Canhbexpno5488 [place] [address]Dr. Lizandro Hemphill Globulin (S) [Mass/Vol] 3.4 g/dL Normal [place] Comment on above: Performed By: #### C MP ####[facility] Hgflzvzkhh1640 [place] [address]Dr. Lizandro Hemphill Glucose [Mass/Vol] 177 mg/dL Critically high 74-106 [facility] Comment on above: Performed By: #### C MP ####[facility] Llzhjgxmpi5152 [place] [address]Dr. Lizandro Hemphill Potassium [Moles/Vol] 4.0 mmol/L Normal 3.5-5.1 [place] Comment on above: Performed By: #### C MP ####[facility] Yyixiriqoj9683 [place] [address]Dr. Lizandro Hemphill Protein [Mass/Vol] 6.2 g/dL Critically low 6.4-8.2 [facility] Comment on above: Performed By: #### C MP ####[facility] Wrpqyzuqdg6151 [place] [address]Dr. Lizandro Hemphill Sodium [Moles/Vol] 143 mmol/L Normal 136-145 [facility] Comment on above: Performed By: #### C MP ####[facility] Lvvncreixc5759[address] [place], [place] [address]Dr. Lizandro Hemphill Urea nitrogen [Mass/Vol] 10.0 mg/dL Normal 7.0-18.0 [place] Comment on above: Performed By: #### C MP ####[facility] Atsuiymbxq7706[address] [place], [place] [address]Dr. Lizandro Hemphill Urea nitrogen/Creatinin e [Mass ratio] 10.8 mg/mg Normal [facility] Comment on above: Performed By: #### C MP ####[facility] Cozvyrrqzo476[address] [place], [place] [address]DrCiro Hemphill PROTIMEon 05-30-2022 INR Coag (PPP) [Relative time] 1.24 {INR} Normal [facility] Comment on above: Performed By: #### P T ####[facility] Tqyihqnnin6004[address] [place], [place] [address]DrCiro Hemphill INR GUIDELINES SEE BELOW Normal [facility] Comment on above: Result Comment: GUEVARA RED INR: 2.0 - 3.0 CONDITIONS NOT LISTED BELOW 2.5 - 3.5 FOR PROSTHETIC HEART VALVE REPLACEMENT 2.5 - 3.5 RECURRENT THROMBOSIS Performed By: #### P T ####[facility] Ijeqxudfcn5528[address] [place], [place] [address]DrCiro Hemphill PT Coag (PPP) [Time] 13.0 s Critically high 9.0-11.6 [facility] Comment on above: Performed By: #### P T ####[facility] Mhxupokwwx7501[address] [place], [place] [address]DrCiro Hemphill CBC AUTO DIFFon 05-29-2022 BASO # 0.0 103/ul Normal 0.0-0.1 [facility] Comment on above: Performed By: #### C BC ####[facility] Cfatgmrhad958[address] [place], [place] [address]DrCiro Hemphill Basophils/100 WBC (Bld) 0.3 % Normal 0.2-2.0 [facility] Comment on above: Performed By: #### C BC ####[facility] Exvzrqfxmd1426[address] [place], [place] [address]DrCiro Hemphill EO # 0.1 103/ul Normal 0.0-0.7 [facility] Comment on above: Performed By: #### C BC ####[facility] Bnnalqdkim4779[address] [place], [place] [address]DrCiro Hemphill Eosinophils/100 WBC (Bld) 0.6 % Critically low 0.9-7.0 [facility] Comment on above: Performed By: #### C BC ####[facility] Szreqklvve2912[address] [place], [place] [address]Dr. Lizandro Hemphill Erythrocyte distribution width (RBC) [Ratio] 19.1 % Critically high 11.0-15.0 [place] Comment on above: Performed By: #### C BC ####[facility] Iphdczilhx6658[address] [place], [place] [address]Dr. Lizandro Hemphill Hematocrit (Bld) [Volume fraction] 34.1 % Critically low 36.0-48.0 [facility] Comment on above: Performed By: #### C BC ####[facility] Tjiwyaxiif254[address] [place], [place] [address]Dr. Lizandro Hemphill Hemoglobin (Bld) [Mass/Vol] 10.9 g/dL Critically low 12.0-16.0 [place] Comment on above: Performed By: #### C BC ####[facility] Kpbunjgmdf330[address] [place], [place] [address]Dr. Lizandro Hemphill IG # 0.04 10e3/ul Critically high 0.00-0.03 [facility] Comment on above: Performed By: #### C BC ####[facility] Wfodxzgkjz1605[address] [place], [place] [address]Dr. Lizandro Hemphill IG % 0.5 % Normal 0.0-0.5 [place] Comment on above: Performed By: #### C BC ####[facility] Mbhepfokgl2880[address] [place], [place] [address]Dr. Lizandro Hemphill LYMPH # 0.9 103/ul Critically low 1.2-3.8 [facility] Comment on above: Performed By: #### C BC ####[facility] Soteljsxqg8813[address] [place], [place] [address]Dr. Lizandro Hemphill Lymphocytes/100 WBC (Bld) 10.5 % Critically low 20.5-60.0 [facility] Comment on above: Performed By: #### C BC ####[facility] Lxrrogable7935[address] [place], [place] [address]Dr. Shanikaannie Hemphill MANUAL DIFF REQ NO Normal [facility] Comment on above: Performed By: #### C BC ####[facility] Kbgnwwyhtr9697 [place] [address]Dr. Lizandro Hemphill MCH (RBC) [Entitic mass] 26.7 pg Normal 26.7-34.0 [facility] Comment on above: Performed By: #### C BC ####[facility] Aevkmejmtl0699 [place] [address]Dr. Lizandro Joby MCHC (RBC) [Mass/Vol] 32.0 g/dL Normal 29.9-35.2 [facility] Comment on above: Performed By: #### C BC ####[facility] Gyugphwval8039 [place] [address]Dr. Lizandro Joby MCV (RBC) [Entitic vol] 83.6 fL Normal 81.0-99.0 [facility] Comment on above: Performed By: #### C BC ####[facility] Eiugnjipmd4027 [place] [address]Dr. Lizandro Joby MONO # 0.9 103/ul Critically high 0.3-0.[address] [facility] Comment on above: Performed By: #### C BC ####[facility] Wwujrpbpak0488 [place] [address]Dr. Shanikaannie Hemphill Monocytes/100 WBC (Bld) 10.1 % Normal 1.7-12.0 [facility] Comment on above: Performed By: #### C BC ####[facility] Ufthokldjn8678 [place] [address]Dr. Lizandro Hemphill NEUT # 6.9 103/ul Critically high 1.4-6.[address] [facility] Comment on above: Performed By: #### C BC ####[facility] Gxlkoqppxq9667 [place] [address]Dr. Lizandro Hemphill Neutrophils/100 WBC (Bld) 78.0 % Critically high 43.0-75.0 [facility] Comment on above: Performed By: #### C BC ####[facility] Yvhbjrhmld0060 [place] [address]Dr. Lizandro Hemphill Platelet mean volume (Bld) [Entitic vol] 11.3 fL Normal 9.5-13.5 [place] Comment on above: Performed By: #### C BC ####[facility] Amriejkgbq0273 [place] [address]Dr. Lizandro Hemphill PLT 196 103/ul Normal 150-450 [place] Comment on above: Performed By: #### C BC ####[facility] Kyocneegxd0299 [place] [address]Dr. Lizandro Hemphill RBC 4.08 106/ul Critically low 4.20-5.40 [facility] Comment on above: Performed By: #### C BC ####[facility] Owditvoanx324[address] [place], [place] [address]Dr. Lizandro Hemphill WBC 8.8 103/ul Normal 4.0-11.0 [place] Comment on above: Performed By: #### C BC ####[facility] Kdmeigdlxr4347[address] [place], [place] [address]Dr. Lizandro Hemphill CT ABD/PELVIS WO CONon 05-29 CT ABD/PELVIS WO CON Normal [facility] CULTURE URINEon 05-29-2022 CULTURE URINE Culture Observations : NO GROWTH. Normal [facility] Comment on above: Performed By: #### U RCX ####[facility] Ligxtdpuxt2229[address] [place], [place] [address]Dr. Lizandro Hemphill PROF 14(COMP METB)on 023 Albumin [Mass/Vol] 2.8 g/dL Critically low 3.4-5.0 [facility] Comment on above: Performed By: #### C MP ####[facility] Sckdcqjfbk082[address] [place], [place] [address]Dr. Lizandro Hemphill Albumin/Globulin [Mass ratio] 0.9 {ratio} Normal [place] Comment on above: Performed By: #### C MP ####[facility] Ivxnnegmgt844[address] [place], [place] [address]Dr. Lizandro Hemphill ALP [Catalytic activity/Vol] 97 U/L Normal 46-116 [place] Comment on above: Performed By: #### C MP ####[facility] Zbtuabchvl5513 [place] [id number]. Lizandro Hemphill ALT [Catalytic activity/Vol] 32 U/L Normal 14-59 [place] Comment on above: Performed By: #### C MP ####[facility] Dhzixpvrqu3602 [place] [id number]. Lizandro Hemphill Anion gap [Moles/Vol] 10.6 mmol/L Normal [place] Comment on above: Performed By: #### C MP ####[facility] Zoitevtehr5482 [place] [id number]. Lizandro Hemphill AST [Catalytic activity/Vol] 32 U/L Normal 15-37 [place] Comment on above: Performed By: #### C MP ####[facility] Fuqykadilg9[address] [place], [place] [address]Dr. Lizandro Hemphill Bilirubin [Mass/Vol] 0.4 mg/dL Normal 0.2-1.0 [place] Comment on above: Performed By: #### C MP ####[facility] Vnegkqphuw[address] [place], [place] [address]Dr. Lizandro Hemphill Calcium [Mass/Vol] 8.3 mg/dL Critically low 8.5-10.[address] [facility] Comment on above: Performed By: #### C MP ####[facility] Abiqxgyozv9701[address] [place], [place] [address]Dr. Lizandro Hemphill Chloride [Moles/Vol] 103 mmol/L Normal 98-107 [facility] Comment on above: Performed By: #### C MP ####[facility] Nbeimutoej[address] [place], [place] [address]Dr. Lizandro Hemphill CO2 [Moles/Vol] 31.5 mmol/L Normal 21.0-32.0 [facility] Comment on above: Performed By: #### C MP ####[facility] Dcufuxoagm84[address] [place], [place] [address]Dr. Lizandro Hem[place]ill Creatinine [Mass/Vol] 0.83 mg/dL Normal 0.55-1.02 [place] Comment on above: Performed By: #### C MP ####[facility] [address]jpexmin[address] [place] [id number]. Lizandro Hemphill EGFR-AF CITIZEN OF [place] >60 Normal >=60 [facility] Comment on above: Performed By: #### C MP ####[facility] Zrnlhlhnbq4026 [place] [id number]. Lizandro Hemphill EGFR-NON AF CITIZEN OF [place] >60 Normal >=60 [place] Comment on above: Performed By: #### C MP ####[facility] Fdaokpmnau[address] [place] [address]Dr. Lizandro Hemphill Globulin (S) [Mass/Vol] 3.2 g/dL Normal [place] Comment on above: Performed By: #### C MP ####[facility] Ypgyncyapu26[address] [place] [address]Dr. Lizandro Hemphill Glucose [Mass/Vol] 120 mg/dL Critically high 74-106 [facility] Comment on above: Performed By: #### C MP ####[facility] Wqoyybjgit57[address] [place] [address]Dr. Lizandro Hemphill Potassium [Moles/Vol] 3.1 mmol/L Critically low 3.5-5.1 [place] Comment on above: Performed By: #### C MP ####[facility] Dboodmqafs99[address] [place], [place] [address]Dr. Lizandro Hemphill Protein [Mass/Vol] 6.0 g/dL Critically low 6.4-8.[address] [facility] Comment on above: Performed By: #### C MP ####[facility] Mgztonxltw29[address] [place] [address]Dr. Lizandro Hemphill Sodium [Moles/Vol] 142 mmol/L Normal 136-145 [facility] Comment on above: Performed By: #### C MP ####[facility] Kqsooagpgw55[address] [place], [place] [address]Dr. Lizandro Hemphill Urea nitrogen [Mass/Vol] 8.0 mg/dL Normal 7.0-18.0 [place] Comment on above: Performed By: #### C MP ####[facility] Aftzmhrfcv46[address] [place] [address]Dr. Lizandro Hemphill Urea nitrogen/Creatinin e [Mass ratio] 9.6 mg/mg Normal [facility] Comment on above: Performed By: #### C MP ####[facility] Bnhosuqhya35[address] [place], [place] [address]DrCiro Hemphill PROTIMEon 05-29-2022 INR Coag (PPP) [Relative time] 1.11 {INR} Normal [facility] Comment on above: Performed By: #### P T ####[facility] Phxrjveieo1812[address] [place], [place] [address]Dr. Lizandro Hemphill INR GUIDELINES SEE BELOW Normal The [facility] Comment on above: Result Comment: GUEVARA RED INR: 2.0 - 3.0 CONDITIONS NOT LISTED BELOW 2.5 - 3.5 FOR PROSTHETIC HEART VALVE REPLACEMENT 2.5 - 3.5 RECURRENT THROMBOSIS Performed By: #### P T ####[facility] Nfrkkkarmh495[address] [place], [place] [address]Dr. Lizandro Hemphill PT Coag (PPP) [Time] 11.7 s Critically high 9.0-11.6 [facility] Comment on above: Performed By: #### P T ####[facility] Bhnwuilwih83[address] [place], [place] [address]DrCiro Hemphill UA RANDOM W/MICROSCOPICon BACTERIA NONE SEEN Normal NONE SEEN [facility] Comment on above: Performed By: #### U AMIC ####[facility] Jmxybrsocl100[address] [place], [place] [address]DrCiro Hemphill Bilirubin Ql (U) Negative Normal NEGATIVE The [facility] Comment on above: Performed By: #### U AMIC ####[facility] Mkmsuoaxjk837[address] [place], [place] [address]DrCiro Hemphill CAST NONE SEEN Normal NONE SEEN [facility] Comment on above: Performed By: #### U AMIC ####[facility] Yfwtuokktg6318[address] [place], [place] [address]DrCiro Hemphill Clarity (U) CLEAR Normal CLEAR [facility] Comment on above: Performed By: #### U AMIC ####[facility] Vkvvkcnews2566 [place] [id number]. Lizandro eHmphill Color (U) LT. YELLOW Normal YELLOW [facility] Comment on above: Performed By: #### U AMIC ####[facility] Ofpzjroxrh6549 [place] [id number]. Lizandro Hemphill Crystals LM Nom (Urine sed) NONE SEEN Normal NONE SEEN [facility] Comment on above: Performed By: #### U AMIC ####[facility] Ritrfhmbxn7598 [place] [phone]. Lizandro Hemphill Epithelial cells LM Ql (Urine sed) NONE SEEN Normal NONE SEEN /RARE [facility] Comment on above: Performed By: #### U AMIC ####[facility] Caczuxfffd59[address] [place] [address]Dr. Lizandro Hemphill Glucose Ql (U) Negative Normal NEGATIVE [facility] Comment on above: Performed By: #### U AMIC ####[facility] Opzowropgf4567[address] [place], [place] [address]Dr. Yilan Hemphill Hemoglobin Ql (U) Negative Normal NEGATIVE The [facility] Comment on above: Performed By: #### U AMIC ####[facility] Sogqyodwye2869[address] [place], [place] [address]Dr. Lizandro Hemphill Ketones Ql (U) Negative Normal NEGATIVE [facility] Comment on above: Performed By: #### U AMIC ####[facility] Gagbghgdqg79[address] [place] [address]Dr. Yilan Hemphill LEUKOCYTES Negative Normal NEGATIVE [facility] Comment on above: Performed By: #### U AMIC ####[facility] Cbmdswnqph6142 [place] [id number]. Yilan Hemphill MUCOUS NONE SEEN Normal NONE SEEN [facility] Comment on above: Performed By: #### U AMIC ####[facility] Ntpvqgnwcc5817 [place] [address]Dr. Yilan Hemphill Nitrite Ql (U) Negative Normal NEGATIVE [facility] Comment on above: Performed By: #### U AMIC ####[facility] Mxvtlfwmko5671 [place] [address]Dr. Lizandro Hemphill pH (U) 7.5 [pH] Normal 5-9 [facility] Comment on above: Performed By: #### U AMIC ####[facility] Egeqznchmu0779 [place] [address]Dr. Lizandro Hemphill RBC NONE SEEN Abnormal 0-2 [facility] Comment on above: Performed By: #### U AMIC ####[facility] Peiiurppxb238[address] [place], [place] [address]Dr. Lizandro Hemphill SPEC GRAVITY 1.010 Normal 1.005-<=1.[address] [facility] Comment on above: Performed By: #### U AMIC ####[facility] Smdobehkvi1786[address] [place], [place] [address]Dr. Lizandro Hemphill UA PROTEIN Negative Normal NEGATIVE/ TRACE [facility] Comment on above: Performed By: #### U AMIC ####[facility] Fopiddhxcq7185[address] [place], [place] [address]Dr. Lizandro Hemphill Urobilinogen Qn (U) 0.2 {Cassy'U}/dL Normal 0.2 - 1.0 [facility] Comment on above: Performed By: #### U AMIC ####[facility] Kudshffrbj[address] [place], [place] [address]Dr. Lizandro Hemphill WBC NONE SEEN Normal NONE SEEN [facility] Comment on above: Performed By: #### U AMIC ####[facility] Shhckreixj1811[address] [place], [place] [address]Dr. Lizandro Hemphill CBC AUTO DIFFon 05-28-2022 BASO # 0.0 103/ul Normal 0.0-0.1 [facility] Comment on above: Performed By: #### C BC ####[facility] Tpkqgodtuc2737[address] [place], [place] [address]Dr. Lizandro Hemphill Basophils/100 WBC (Bld) 0.6 % Normal 0.2-2.0 [facility] Comment on above: Performed By: #### C BC ####[facility] Qbkozetpow6469[address] [place], [place] [address]Dr. Lizandro Hemphill EO # 0.0 103/ul Normal 0.0-0.7 [facility] Comment on above: Performed By: #### C BC ####[facility] Ejxrhchiqm4378 [place] [address]Dr. Lizandro Joby Eosinophils/100 WBC (Bld) 0.6 % Critically low 0.9-7.0 [facility] Comment on above: Performed By: #### C BC ####[facility] Lguirynwii4583[address] [place], [place] [address]Dr. Lizandro Hemphill Erythrocyte distribution width (RBC) [Ratio] 18.6 % Critically high 11.0-15.0 [facility] Comment on above: Performed By: #### C BC ####[facility] Nglhucptph126[address] [place], [place] [address]Dr. Lizandro Hemphill Hematocrit (Bld) [Volume fraction] 31.6 % Critically low 36.0-48.0 [place] Comment on above: Performed By: #### C BC ####[facility] Ltlvvuowix5828[address] [place], [place] [address]Dr. Lizandro Hemphill Hemoglobin (Bld) [Mass/Vol] 10.2 g/dL Critically low 12.0-16.0 [facility] Comment on above: Performed By: #### C BC ####[facility] Zkdjlidrke023[address] [place], [place] [address]Dr. Lizandro Hemphill IG # 0.03 10e3/ul Normal 0.00-0.03 [facility] Comment on above: Performed By: #### C BC ####[facility] Kwfktgpljh6808[address] [place], [place] [address]Dr. Lizandro Hemphill IG % 0.4 % Normal 0.0-0.5 [facility] Comment on above: Performed By: #### C BC ####[facility] Qwwjvafndx5713[address] [place], [place] [address]DrCiro Hemphill LYMPH # 0.9 103/ul Critically low 1.2-3.8 [facility] Comment on above: Performed By: #### C BC ####[facility] Joseluxnul3423[address] [place], [place] [address]DrCiro Hemphill Lymphocytes/100 WBC (Bld) 12.6 % Critically low 20.5-60.0 [facility] Comment on above: Performed By: #### C BC ####[facility] Oszgjcrmpo0699 [place] [address]DrCiro Hemphill MANUAL DIFF REQ NO Normal The [facility] Comment on above: Performed By: #### C BC ####[facility] Hsqhpbvkgv4909 [place] [address]DrCiro Hemphill MCH (RBC) [Entitic mass] 26.7 pg Normal 26.7-34.0 [facility] Comment on above: Performed By: #### C BC ####[facility] Mzyrdiiult7490[address] [place], [place] [address]DrCiro Hemphill MCHC (RBC) [Mass/Vol] 32.3 g/dL Normal 29.9-35.2 [facility] Comment on above: Performed By: #### C BC ####[facility] Qbmxlcnime8068[address] [place], [place] [address]DrCiro Hemphill MCV (RBC) [Entitic vol] 82.7 fL Normal 81.0-99.0 [facility] Comment on above: Performed By: #### C BC ####[facility] Rdnlmnjayr5504[address] [place], [place] [address]DrCiro Hemphill MONO # 0.7 103/ul Normal 0.3-0.8 [facility] Comment on above: Performed By: #### C BC ####[facility] Uxuhmlmven1401[address] [place], [place] [address]DrCiro Hemphill Monocytes/100 WBC (Bld) 10.2 % Normal 1.7-12.0 [facility] Comment on above: Performed By: #### C BC ####[facility] Jnrglzdbjy535[address] [place], [place] [address]DrCiro Hemphill NEUT # 5.4 103/ul Normal 1.4-6.5 [facility] Comment on above: Performed By: #### C BC ####[facility] Kjnlivbupq176[address] [place], [place] [address]Dr. Lizandro Hemphill Neutrophils/100 WBC (Bld) 75.6 % Critically high 43.0-75.0 [place] Comment on above: Performed By: #### C BC ####[facility] Khmrdljntq7631 [place] [address]DrCiro Vossannie Joby Platelet mean volume (Bld) [Entitic vol] 10.4 fL Normal 9.5-13.5 [place] Comment on above: Performed By: #### C BC ####[facility] Zvzfsqmbzj657[address] [place], [place] [address]DrCiro Hemphill PLT 260 103/ul Normal 150-450 [facility] Comment on above: Performed By: #### C BC ####[facility] Vawrvptkkb4976[address] [place], [place] [address]DrCiro Hemphill RBC 3.82 106/ul Critically low 4.20-5.[address] [facility] Comment on above: Performed By: #### C BC ####[facility] Cyqalqlpef2056[address] [place], [place] [address]DrCiro Hemphill WBC 7.2 103/ul Normal 4.0-11.0 [place] Comment on above: Performed By: #### C BC ####[facility] Neozkffygj3433[address] [place], [place] [address]Dr. Lizandro Hemphill ER URINE PROFILEon 3 Bilirubin Ql (U) Negative Normal NEGATIVE [facility] Comment on above: Performed By: #### E RUR ####[facility] Aisaflosqq7706[address] [place], [place] [address]Dr. Lizandro Hemphill Clarity (U) CLEAR Normal CLEAR [facility] Comment on above: Performed By: #### E RUR ####[facility] Kzdtgvjvoq9023[address] [place], [place] [address]DrCiro Hemphill Color (U) LT. YELLOW Normal YELLOW [facility] Comment on above: Performed By: #### E RUR ####[facility] Ykaoydqzei214[address] [place], [place] [address]DrCiro Hemphill ERUAHD A micrscopic examina tion will be performed if indicated. Normal [facility] Comment on above: Performed By: #### E RUR ####[facility] Rajiniddpa8495 [place] [address]Dr. Lizandro Hemphill Glucose Ql (U) Negative Normal NEGATIVE [facility] Comment on above: Performed By: #### E RUR ####[facility] Lupkatoiaj2915[address] [place], [place] [address]Dr. Lizandro Hemphill Hemoglobin Ql (U) Negative Normal NEGATIVE The [facility] Comment on above: Performed By: #### E RUR ####[facility] Xjuzbzshvh5986[address] [place], [place] [address]Dr. Lizandro Hemphill Ketones Ql (U) Negative Normal NEGATIVE [facility] Comment on above: Performed By: #### E RUR ####[facility] Wovwqdfmna087[address] [place], [place] [address]Dr. Lizandro Hemphill LEUKOCYTES Negative Normal NEGATIVE [place] Comment on above: Performed By: #### E RUR ####[facility] Yniaapqjrn4275[address] [place], [place] [address]Dr. Lizandro Hemphill Nitrite Ql (U) Negative Normal NEGATIVE [facility] Comment on above: Performed By: #### E RUR ####[facility] Ftoyccrlts5135[address] [place], [place] [address]Dr. Lizandro Hemphill pH (U) 6.5 [pH] Normal 5-9 [place] Comment on above: Performed By: #### E RUR ####[facility] Mxrnxogifp324[address] [place], [place] [address]Dr. Lizandro Hemphill SPEC GRAVITY <=1.005 Abnormal 1.005-<=1.[address] [facility] Comment on above: Performed By: #### E RUR ####[facility] Duimtwmlai7733[address] [place], [place] [address]Dr. Lizandro Hemphill UA PROTEIN Negative Normal NEGATIVE/ TRACE [facility] Comment on above: Performed By: #### E RUR ####[facility] Nqiwdysvad585[address] [place], [place] [address]Dr. Shanikaannie Hemphill UR MICRO IND NOT INDICATED Normal [facility] Comment on above: Performed By: #### E RUR ####[facility] Ezxwqwsvpe0257 [place] [address]Dr. Lizandro Hemphill Urobilinogen Qn (U) 0.2 {Cassy'U}/dL Normal 0.2 - 1.0 [facility] Comment on above: Performed By: #### E RUR ####[facility] Htefcpaphf8818[address] [place], [place] [address]Dr. Lizandro Hemphill GI PANEL (PCR)on 05-28-2022 Adenovirus F 40/41 Not detected Normal NOT DETECTED [facility] Comment on above: Performed By: #### G IPANEL ####[facility] Qrfghunivj1726[address] [place], [place] [address]Dr. Lizandro Hemphill Astrovirus Not detected Normal NOT DETECTED [facility] Comment on above: Performed By: #### G IPANEL ####[facility] Hlnvpvpelo0103[address] [place], [place] [address]Dr. Lizandro Hemphill C. Diff toxin A/B Not detected Normal NOT DETECTED [facility] Comment on above: Performed By: #### G IPANEL ####[facility] Nfqaolmaye3903[address] [place], [place] [address]Dr. Lizandro Hemphill Campylobacter Not detected Normal NOT DETECTED The [facility] Comment on above: Performed By: #### G IPANEL ####[facility] Ihtgtazvfv9913[address] [place], [place] [address]Dr. Lizandro Hemphill Cryptosporidium Not detected Normal NOT DETECTED The [facility] Comment on above: Performed By: #### G IPANEL ####[facility] Sgihtfrvxg6901[address] [place], [place] [address]Dr. Lizandro Hemphill Cyclos. Cayetanensis Not detected Normal NOT DETECTED [facility] Comment on above: Performed By: #### G IPANEL ####[facility] Aswpppgute8664[address] [place], [place] [address]Dr. Lizandro Hemphill E. Coli O157 Not Applicable Normal Not Applicable [facility] Comment on above: Performed By: #### G IPANEL ####[facility] Mhfvyirtnh494[address] [place], [place] [address]Dr. Lizandro Hemphill E. histolytica Not detected Normal NOT DETECTED [facility] Comment on above: Performed By: #### G IPANEL ####[facility] Bqortsgxeq0362 [place] [address]Dr. Shanikaannie Hemphill EAEC Not detected Normal NOT DETECTED [facility] Comment on above: Performed By: #### G IPANEL ####[facility] Yhlrrrqwyr717[address] [place], [place] [address]Dr. Lizandro Hemphill EIEC Not detected Normal NOT DETECTED [facility] Comment on above: Performed By: #### G IPANEL ####[facility] Ivqevpahug1999[address] [place], [place] [address]Dr. [facility] EPEC Not detected Normal NOT DETECTED [facility] Comment on above: Performed By: #### G IPANEL ####[facility] Sygrqeirzy[address] [place], [place] [address]Dr. Lizandro Hemphill ETEC Not detected Normal NOT DETECTED [facility] Comment on above: Performed By: #### G IPANEL ####[facility] Gxrjjtbwvb092[address] [place], [place] [address]Dr. Lizandro Hemphill G. Lamblia Not detected Normal NOT DETECTED [facility] Comment on above: Performed By: #### G IPANEL ####[facility] Soryccvpls213[address] [place], [place] [address]Dr. Lizandro [facility]L CONTROLS PASSED Normal [facility] Comment on above: Performed By: #### G IPANEL ####[facility] Esmxratwns24[address] [place], [place] [address]Dr. Lizandro Hemphill [facility] CARIE HEADER GI PANEL BACTERIA Normal T [facility] Comment on above: Performed By: #### G IPANEL ####[facility] Pmpcmxumuw567[address] [place], [place] [address]Dr. Lizandro Hem[facility]ill [facility] PAN[facility] DIARRHEAGEN IC E.COLI / SHIGELLA Normal [place] Comment on above: Performed By: #### G IPANEL ####[facility] Lrxbdumxko8194[address] [place], [place] [address]Dr. Lizandro [facility]curablesNLHD INFO SEE BELOW Normal [facility] Comment on above: Result Comment: EAEC - Enteroaggregative E. Coli EPEC- Enteropathogenic E. Coli ETEC- Enterotoxigenic E. Coli lt/st STEC- Shigella-like toxin-producing E. Coli stx1/stx2 EIEC- Shigella/Enteroinvasive E. Coli Performed By: #### G IPANEL ####[facility] Fnltsrzsin7090 [place] [address]Dr. Lizandro Hemphill GIPNLHD PARASITES GI PANEL PARASITES Normal [facility] Comment on above: Performed By: #### G IPANEL ####[facility] Ndymssrmdn6086[address] [place], [place] [address]Dr. Lizandro Hemphill GIPNLHD VIRUS GI PANEL VIRUSES Normal The [facility] Comment on above: Performed By: #### G IPANEL ####[facility] Haxkxxnsqq5555[address] [place], [place] [address]Dr. Lizandro Hemphill Norovirus GI/GII Not detected Normal NOT DETECTED [facility] Comment on above: Performed By: #### G IPANEL ####[facility] Jpyqlxwuqw758[address] [place], [place] [address]Dr. Lizandro Hemphill P. Shigelloides Not detected Normal NOT DETECTED The [facility] Comment on above: Performed By: #### G IPANEL ####[facility] Xbwvacjzls7147[address] [place], [place] [address]Dr. Lizandro Hemphill Rotavirus A Not detected Normal NOT DETECTED [facility] Comment on above: Performed By: #### G IPANEL ####[facility] Dltxsfxpim129[address] [place], [place] [address]Dr. Shanikaannie Hemphill Salmonella Not detected Normal NOT DETECTED [facility] Comment on above: Performed By: #### G IPANEL ####[facility] Cagvdlkcoc1397[address] [place], [place] [address]Dr. Lizandro Hemphill Sapovirus Not detected Normal NOT DETECTED [facility] Comment on above: Performed By: #### G IPANEL ####[facility] Bghxbomhdk6937[address] [place], [place] [address]Dr. Shanikaannie Hemphill STEC Not detected Normal NOT DETECTED [facility] Comment on above: Performed By: #### G IPANEL ####[facility] Oiwlpaompd9599 [place] [address]Dr. Lizandro Hemphill Vibrio Not detected Normal NOT DETECTED [facility] Comment on above: Performed By: #### G IPANEL ####[facility] Ujwwafemrm0545 [place] [address]Dr. Lizandro Hemphill Vibrio Cholera Not detected Normal NOT DETECTED The [facility] Comment on above: Performed By: #### G IPANEL ####[facility] Xobyjylujh[address] [place] [address]Dr. Lizandro Hemphill Y. Enterocolitica Not detected Normal NOT DETECTED [facility] Comment on above: Performed By: #### G IPANEL ####[facility] Sfyzxtdlvo7786[address] [place], [place] [address]Dr. Lizandro Hemphill OCC BLD IMMUNOASSAYon 2022 OCCULT BLOOD Negative Normal NEGATIVE [facility] Comment on above: Performed By: #### O GREGORIO ####[facility] Ffuyamucts2089[address] [place], [place] [address]Dr. Lizandro Hemphill PROF 14(COMP METB)on 023 Albumin [Mass/Vol] 2.7 g/dL Critically low 3.4-5.[address] [facility] Comment on above: Performed By: #### C MP ####[facility] Almmarxixt839[address] [place], [place] [address]Dr. Lizandro Hemphill Albumin/Globulin [Mass ratio] 1.0 {ratio} Normal [place] Comment on above: Performed By: #### C MP ####[facility] Nbwcigsxdy4541 [place] [address]Dr. Lizandro Hemphill ALP [Catalytic activity/Vol] 93 U/L Normal 46-116 [place] Comment on above: Performed By: #### C MP ####[facility] Bvuiwjbpdj8986[address] [place], [place] [address]Dr. Lizandro Hemphill ALT [Catalytic activity/Vol] 38 U/L Normal 14-59 [place] Comment on above: Performed By: #### C MP ####[facility] Fubmliyswg8518[address] [place], [place] [address]Dr. Lizandro Hemphill Anion gap [Moles/Vol] 10.9 mmol/L Normal [place] Comment on above: Performed By: #### C MP ####[facility] Uoxxqkswmd0167[address] [place], [place] [address]Dr. Lizandro Hemphill AST [Catalytic activity/Vol] 44 U/L Critically high 15-37 [place] Comment on above: Performed By: #### C MP ####[facility] Wuktamsuup7606[address] [place], [place] [address]Dr. Lizandro Hemphill Bilirubin [Mass/Vol] 0.2 mg/dL Normal 0.2-1.0 [facility] Comment on above: Performed By: #### C MP ####[facility] Tnhptlmmyq1687[address] [place], [place] [address]Dr. Lizandro Hemphill Calcium [Mass/Vol] 8.0 mg/dL Critically low 8.5-10.[address] [facility] Comment on above: Performed By: #### C MP ####[facility] Xnraprorph9336[address] [place], [place] [address]Dr. Lizandro Joby Chloride [Moles/Vol] 107 mmol/L Normal 98-107 [facility] Comment on above: Performed By: #### C MP ####[facility] Wqqqjhqqxm6095[address] [place], [place] [address]Dr. Lizandro Hemphill CO2 [Moles/Vol] 27.4 mmol/L Normal 21.0-32.0 [facility] Comment on above: Performed By: #### C MP ####[facility] Xvcmxcqaly6677[address] [place], [place] [address]Dr. Lizandro Joby Creatinine [Mass/Vol] 0.90 mg/dL Normal 0.55-1.02 [facility] Comment on above: Performed By: #### C MP ####[facility] Iemuilsxrc7969[address] [place], [place] [address]Dr. Lizandro Joby EGFR-AF CITIZEN OF [place] >60 Normal >=60 [facility] Comment on above: Performed By: #### C MP ####[facility] Pvoefdqnbk17[address] [place], [place] [address]Dr. Lizandro Hemphill EGFR-NON AF CITIZEN OF [place] >60 Normal >=60 [place] Comment on above: Performed By: #### C MP ####[facility] Pxcvefzdbp4672 [place] [address]Dr. Lizandro Hemphill Globulin (S) [Mass/Vol] 2.6 g/dL Normal [place] Comment on above: Performed By: #### C MP ####[facility] Vapqxkodxw[address] [place] [address]Dr. Lizandro Hemphill Glucose [Mass/Vol] 131 mg/dL Critically high 74-106 [facility] Comment on above: Performed By: #### C MP ####[facility] Wolnqsnpzf[address] [place] [address]Dr. Lizandro Hemphill Potassium [Moles/Vol] 3.3 mmol/L Critically low 3.5-5.1 [place] Comment on above: Performed By: #### C MP ####[facility] Lyseczkyns[address] [place], [place] [address]Dr. Lizandro Hemphill Protein [Mass/Vol] 5.3 g/dL Critically low 6.4-8.2 [facility] Comment on above: Performed By: #### C MP ####[facility] Lxylsgwvpc112[address] [place], [place] [address]Dr. Lizandro Hemphill Sodium [Moles/Vol] 142 mmol/L Normal 136-145 [facility] Comment on above: Performed By: #### C MP ####[facility] Oawwlvmuhb694[address] [place], [place] [address]Dr. Lizandro Hemphill Urea nitrogen [Mass/Vol] 12.0 mg/dL Normal 7.0-18.0 [place] Comment on above: Performed By: #### C MP ####[facility] Nthsmiqojg036[address] [place], [place] [address]Dr. Lizandro Hemphill Urea nitrogen/Creatinin e [Mass ratio] 13.3 mg/mg Normal [place] Comment on above: Performed By: #### C MP ####[facility] Kcxyvbkows[address] [place], [place] [address]Dr. Lizandro Joby PROTIMEon 05-28-2022 INR Coag (PPP) [Relative time] 1.10 {INR} Normal [facility] Comment on above: Performed By: #### P T ####[facility] Dxfcxvqkgt1223[address] [place], [place] [address]DrCiro Hemphill INR GUIDELINES SEE BELOW Normal [facility] Comment on above: Result Comment: GUEVARA RED INR: 2.0 - 3.0 CONDITIONS NOT LISTED BELOW 2.5 - 3.5 FOR PROSTHETIC HEART VALVE REPLACEMENT 2.5 - 3.5 RECURRENT THROMBOSIS Performed By: #### P T ####[facility] Pbvnjfuokw3527[address] [place], [place] [address]DrCiro Hemphill PT Coag (PPP) [Time] 11.6 s Normal 9.0-11.6 [facility] Comment on above: Performed By: #### P T ####[facility] Iwbgcrskuw838[address] [place], [place] [address]Dr. Lizandro Hemphlil XR ABD FLAT UP_PA Allen 05-28 XR ABD FLAT UP_PA CH Normal [facility] CBC AUTO DIFFon 05-27-2022 BASO # 0.1 103/ul Normal 0.0-0.1 [facility] Comment on above: Performed By: #### C BC ####[facility] Xnomelsegx6833[address] [place], [place] [address]DrCiro Hemphill Basophils/100 WBC (Bld) 0.9 % Normal 0.2-2.0 [facility] Comment on above: Performed By: #### C BC ####[facility] Tukzfgxqth2444[address] [place], [place] [address]DrCrio Hemphill EO # 0.0 103/ul Normal 0.0-0.7 [facility] Comment on above: Performed By: #### C BC ####[facility] Ajiirtdjsg279[address] [place], [place] [address]DrCiro Hemphill Eosinophils/100 WBC (Bld) 0.8 % Critically low 0.9-7.0 [facility] Comment on above: Performed By: #### C BC ####[facility] Xctwitkaja4424[address] [place], [place] [address]DrCiro Hemphill Erythrocyte distribution width (RBC) [Ratio] 18.6 % Critically high 11.0-15.0 [facility] Comment on above: Performed By: #### C BC ####[facility] Khfvvfwqjx58[address] [place] [address]Dr. Lizandro Hemphill Hematocrit (Bld) [Volume fraction] 33.0 % Critically low 36.0-48.0 [facility] Comment on above: Performed By: #### C BC ####[facility] Tknpvqynpk904140 [address] [place], [place] [address]Dr. Shanikaannie Hemphill Hemoglobin (Bld) [Mass/Vol] 10.8 g/dL Critically low 12.0-16.0 [facility] Comment on above: Performed By: #### C BC ####[facility] Rnvxdvzxpu888840 [address] [place], [place] [address]Dr. Lizandro Hemphill IG # 0.01 10e3/ul Normal 0.00-0.03 [facility] Comment on above: Performed By: #### C BC ####[facility] Kjojeyxauk0969[address] [place], [place] [address]Dr. Lizandro Hemphill IG % 0.2 % Normal 0.0-0.5 [facility] Comment on above: Performed By: #### C BC ####[facility] Usixklbubp8187[address] [place], [place] [address]DrCiro Hemphill LYMPH # 0.9 103/ul Critically low 1.2-3.8 [facility] Comment on above: Performed By: #### C BC ####[facility] Allrinkovo0813[address] [place], [place] [address]DrCiro Hemphill Lymphocytes/100 WBC (Bld) 16.5 % Critically low 20.5-60.0 [facility] Comment on above: Performed By: #### C BC ####[facility] Ugcgibvnep3126[address] [place], [place] [address]DrCiro Hemphill MANUAL DIFF REQ NO Normal [facility] Comment on above: Performed By: #### C BC ####[facility] Gunjeboiod2401[address] [place], [place] [address]DrCiro Hemphill MCH (RBC) [Entitic mass] 27.3 pg Normal 26.7-34.0 [facility] Comment on above: Performed By: #### C BC ####[facility] Hsbswwealx[address] [place] [address]Dr. Lizandro Hemphill MCHC (RBC) [Mass/Vol] 32.7 g/dL Normal 29.9-35.2 [facility] Comment on above: Performed By: #### C BC ####[facility] Iudhsabsph0016[address] [place], [place] [address]Dr. Lizandro Joby MCV (RBC) [Entitic vol] 83.5 fL Normal 81.0-99.0 [facility] Comment on above: Performed By: #### C BC ####[facility] Ffyngzxeyf567[address] [place], [place] [address]DrCiro Lizandro Joby MONO # 0.7 103/ul Normal 0.3-0.8 [facility] Comment on above: Performed By: #### C BC ####[facility] Jkksnwuska0989[address] [place], [place] [address]Dr. Shanikaannie Hemphill Monocytes/100 WBC (Bld) 13.7 % Critically high 1.7-12.0 [facility] Comment on above: Performed By: #### C BC ####[facility] Zlgxunsqqs253440 [address] [place], [place] [address]Dr. Lizandro Hemphill NEUT # 3.6 103/ul Normal 1.4-6.5 [facility] Comment on above: Performed By: #### C BC ####[facility] Cgtnaogsny6779[address] [place], [place] [address]Dr. Lizandro Joby Neutrophils/100 WBC (Bld) 67.9 % Normal 43.0-75.0 [facility] Comment on above: Performed By: #### C BC ####[facility] Kbhgpafgcm1485[address] [place], [place] [address]DrCiro Lizandro Hemphill Platelet mean volume (Bld) [Entitic vol] 10.4 fL Normal 9.5-13.5 [facility] Comment on above: Performed By: #### C BC ####[facility] Dxq[address]kcfm6[address] [place] [id number]. Lizandro Hemphill PLT 270 103/ul Normal 150-450 [facility] Comment on above: Performed By: #### C BC ####[facility] Hpveatehot85[address] [place] [id number]. Lizandro Hemphill RBC 3.95 106/ul Critically low 4.20-5.[address] [facility] Comment on above: Performed By: #### C BC ####[facility] Cqmnfnwnua25[address] [place], [place] [address]Dr. Lizandro Hemphill WBC 5.3 103/ul Normal 4.0-11.0 [facility] Comment on above: Performed By: #### C BC ####[facility] Zzusgubezi7359[address] [place], [place] [address]Dr. Lizandro Hemphill BASO # 0.1 103/ul Normal 0.0-0.1 [facility] Comment on above: Performed By: #### C BC ####[facility] Njvyptcaaf0705[address] [place], [place] [address]Dr. Lizandro Joby Basophils/100 WBC (Bld) 1.0 % Normal 0.2-2.0 [facility] Comment on above: Performed By: #### C BC ####[facility] Vxokrycfms2432[address] [place], [place] [address]DrCiro Lizandro Joby EO # 0.1 103/ul Normal 0.0-0.7 [facility] Comment on above: Performed By: #### C BC ####[facility] Lzkflesmta76[address] [place], [place] [address]Dr. Lizandro Joby Eosinophils/100 WBC (Bld) 1.0 % Normal 0.9-7.0 [facility] Comment on above: Performed By: #### C BC ####[facility] Nlrsdkwmcl224240 [address] [place], [place] [address]Dr. Lizandro Joby Erythrocyte distribution width (RBC) [Ratio] 20.0 % Critically high 11.0-15.0 [facility] Comment on above: Performed By: #### C BC ####[facility] Odifhajilr7346[address] [place], [place] [address]DrCiro Hemphill Hematocrit (Bld) [Volume fraction] 24.0 % Critically low 36.0-48.0 [facility] Comment on above: Performed By: #### C BC ####[facility] Pvjfqxtyhu9805[address] [place], [place] [address]DrCiro Hemphill Hemoglobin (Bld) [Mass/Vol] 7.4 g/dL Critically low 12.0-16.0 [facility] Comment on above: Performed By: #### C BC ####[facility] Kolxdttoyt4044[address] [place], [place] [address]DrCiro Hemphill IG # 0.01 10e3/ul Normal 0.00-0.03 [facility] Comment on above: Performed By: #### C BC ####[facility] Lxqdprsand11[address] [place], [place] [address]DrCiro Hemphill IG % 0.2 % Normal 0.0-0.5 [place] Comment on above: Performed By: #### C BC ####[facility] Nxckxrlvvv9344[address] [place], [place] [address]DrCiro Hemphill LYMPH # 1.0 103/ul Critically low 1.2-3.8 [facility] Comment on above: Performed By: #### C BC ####[facility] Iyqkfuczyq6758[address] [place], [place] [address]DrCiro Hemphill Lymphocytes/100 WBC (Bld) 20.3 % Critically low 20.5-60.0 [facility] Comment on above: Performed By: #### C BC ####[facility] Ltrccdgwqc8540[address] [place], [place] [address]DrCiro Hemphill MANUAL DIFF REQ NO Normal [facility] Comment on above: Performed By: #### C BC ####[facility] Dpzkfuoidt6124[address] [place], [place] [address]DrCiro Hemphill MCH (RBC) [Entitic mass] 25.3 pg Critically low 26.7-34.0 [facility] Comment on above: Performed By: #### C BC ####[facility] Ttkutdeucr1409[address] [place], [place] [address]DrCiro Hemphill MCHC (RBC) [Mass/Vol] 30.8 g/dL Normal 29.9-35.2 [facility] Comment on above: Performed By: #### C BC ####[facility] [address]kdazbb4[address] [place] [id number]. Lizandro Joby MCV (RBC) [Entitic vol] 81.9 fL Normal 81.0-99.0 [facility] Comment on above: Performed By: #### C BC ####[facility] Wlxgkwsbgj100[address] [place], [place] [address]DrCiro Hemphill MONO # 0.6 103/ul Normal 0.3-0.8 [facility] Comment on above: Performed By: #### C BC ####[facility] Eeuntnjkdw2067[address] [place], [place] [address]DrCiro Hemphill Monocytes/100 WBC (Bld) 12.8 % Critically high 1.7-12.0 [facility] Comment on above: Performed By: #### C BC ####[facility] Vemkzaygtv5254[address] [place], [place] [address]Dr. Lizandro Hemphill NEUT # 3.2 103/ul Normal 1.4-6.5 [facility] Comment on above: Performed By: #### C BC ####[facility] Mqfulmyooh7798[address] [place], [place] [address]Dr. Lizandro Hemphill Neutrophils/100 WBC (Bld) 64.7 % Normal 43.0-75.0 [facility] Comment on above: Performed By: #### C BC ####[facility] Bgufzohsgg1765[address] [place], [place] [address]Dr. Lizandro Hemphill Platelet mean volume (Bld) [Entitic vol] 10.2 fL Normal 9.5-13.5 [facility] Comment on above: Performed By: #### C BC ####[facility] Pqfrsbkadn935[address] [place], [place] [address]Dr. Lizandro Hemphill PLT 301 103/ul Normal 150-450 [facility] Comment on above: Performed By: #### C BC ####[facility] Haahpwtuyu4016[address] [place], [place] [address]Dr. Lizandro Hemphill RBC 2.93 106/ul Critically low 4.20-5.[address] [facility] Comment on above: Performed By: #### C BC ####[facility] Rxbnouncnb9044 [place] [id number]. Lizandro Hemphill WBC 4.9 103/ul Normal 4.0-11.0 [facility] Comment on above: Performed By: #### C BC ####[facility] Ozbydlkkjj8495 [place] [id number]. Lizandro Hemphill BASO # 0.0 103/ul Normal 0.0-0.1 [facility] Comment on above: Performed By: #### C BC ####[facility] Fhwozsnvnp1165[address] [place], [place] [address]Dr. Lizandro Hemphill Basophils/100 WBC (Bld) 0.9 % Normal 0.2-2.0 [facility] Comment on above: Performed By: #### C BC ####[facility] Mxqfqzsfua6036[address] [place], [place] [address]Dr. Lizandro Hemphill EO # 0.0 103/ul Normal 0.0-0.7 [facility] Comment on above: Performed By: #### C BC ####[facility] Hgcybuddeu9666[address] [place], [place] [address]Dr. Lizandro Hemphill Eosinophils/100 WBC (Bld) 0.7 % Critically low 0.9-7.0 [facility] Comment on above: Performed By: #### C BC ####[facility] Qlqsrkthmp87[address] [place], [place] [address]Dr. Lizandro Hemphill Erythrocyte distribution width (RBC) [Ratio] 20.1 % Critically high 11.0-15.0 [facility] Comment on above: Performed By: #### C BC ####[facility] Mztujyfgle[address] [place], [place] [address]DrCiro Lizandro Hemphill Hematocrit (Bld) [Volume fraction] 23.6 % Critically low 36.0-48.0 [facility] Comment on above: Performed By: #### C BC ####[facility] Bkxrivfsyq18[address] [place], [place] [address]Dr. Lizandro Hemphill Hemoglobin (Bld) [Mass/Vol] 7.3 g/dL Critically low 12.0-16.0 [facility] Comment on above: Result Comment: Flui ds given Performed By: #### C BC ####[facility] Vshdkojvbl24[address] [place] [address]Dr. Lizandro Hemphill IG # 0.01 10e3/ul Normal 0.00-0.03 [facility] Comment on above: Performed By: #### C BC ####[facility] Exfdgffbvg4173 [place] [address]Dr. Lizandro Hemphill IG % 0.2 % Normal 0.0-0.5 [facility] Comment on above: Performed By: #### C BC ####[facility] Gshkeokzvm7[address] [place] [address]Dr. Lizandro Hemphill LYMPH # 1.0 103/ul Critically low 1.2-3.8 [facility] Comment on above: Performed By: #### C BC ####[facility] Cjgztrerod2258 [place] [address]Dr. Lizandro Hemphill Lymphocytes/100 WBC (Bld) 22.8 % Normal 20.5-60.0 [facility] Comment on above: Performed By: #### C BC ####[facility] Bqjhbfyevd6651 [place] [address]Dr. Lizandro Hemphill MANUAL DIFF REQ NO Normal [facility] Comment on above: Performed By: #### C BC ####[facility] Eurfddjqhg0353 [place] [address]Dr. Lizandro Hemphill MCH (RBC) [Entitic mass] 25.3 pg Critically low 26.7-34.0 [facility] Comment on above: Performed By: #### C BC ####[facility] Mpclzhkxax7504 [place] [address]Dr. Lizandro Hemphill MCHC (RBC) [Mass/Vol] 30.9 g/dL Normal 29.9-35.2 [facility] Comment on above: Performed By: #### C BC ####[facility] Ktzjsskcbl4912 [place] [id number]. Lizandro Hemphill MCV (RBC) [Entitic vol] 81.9 fL Normal 81.0-99.0 [facility] Comment on above: Performed By: #### C BC ####[facility] Bqgmcqihix1326 [place] [address]Dr. Lizandro Hemphill MONO # 0.6 103/ul Normal 0.3-0.8 [facility] Comment on above: Performed By: #### C BC ####[facility] Rzjpylrjme0750 [place] [address]Dr. Lizandro Hemphill Monocytes/100 WBC (Bld) 12.3 % Critically high 1.7-12.0 [facility] Comment on above: Performed By: #### C BC ####[facility] Kesskmfzoa9580[address] [place], [place] [address]Dr. Lizandro Hemphill NEUT # 2.9 103/ul Normal 1.4-6.5 [facility] Comment on above: Performed By: #### C BC ####[facility] Noljzxwifb2000[address] [place], [place] [address]Dr. Lizandro Hemphill Neutrophils/100 WBC (Bld) 63.1 % Normal 43.0-75.0 [facility] Comment on above: Performed By: #### C BC ####[facility] Gepomjppwr7813[address] [place], [place] [address]Dr. Lizandro Hemphill Platelet mean volume (Bld) [Entitic vol] 10.6 fL Normal 9.5-13.5 [facility] Comment on above: Performed By: #### C BC ####[facility] Qryythfala323[address] [place], [place] [address]Dr. Lizandro Hemphill PLT 305 103/ul Normal 150-450 [facility] Comment on above: Performed By: #### C BC ####[facility] Jauciwvnah37[address] [place], [place] [address]Dr. Lizandro Hemphill RBC 2.88 106/ul Critically low 4.20-5.[address] [facility] Comment on above: Performed By: #### C BC ####[facility] Tvnjrqkgnr0000[address] [place], [place] [address]Dr. Lizandro Hemphill WBC 4.6 103/ul Normal 4.0-11.0 [place] Comment on above: Performed By: #### C BC ####[facility] Hnogvcrdvz220[address] [place] [address]Dr. Lizandro Hemphill PROF 14(COMP METB)on 023 Albumin [Mass/Vol] 2.7 g/dL Critically low 3.4-5.[address] [facility] Comment on above: Performed By: #### C MP ####[facility] Ngblbropln1240 [place] [address]Dr. Lizandro Hemphill Albumin/Globulin [Mass ratio] 1.0 {ratio} Normal [place] Comment on above: Performed By: #### C MP ####[facility] Plhdgglgex1507 [place] [address]Dr. Lizandro Hemphill ALP [Catalytic activity/Vol] 75 U/L Normal 46-116 [place] Comment on above: Performed By: #### C MP ####[facility] Pmzhkbnpwj9204 [place] [address]Dr. Lizandro Hemphill ALT [Catalytic activity/Vol] 11 U/L Critically low 14-59 [place] Comment on above: Performed By: #### C MP ####[facility] Yqsqzdkwth9262 [place] [address]Dr. Lizandro Hemphill Anion gap [Moles/Vol] 13.9 mmol/L Normal [place] Comment on above: Performed By: #### C MP ####[facility] Jbggvathkl6515 [place] [address]Dr. Lizandro Hemphill AST [Catalytic activity/Vol] 23 U/L Normal 15-37 [facility] Comment on above: Performed By: #### C MP ####[facility] Olimwnmbfu2188[address] [place], [place] [address]Dr. Lizandro Hemphill Bilirubin [Mass/Vol] 0.5 mg/dL Normal 0.2-1.0 [facility] Comment on above: Performed By: #### C MP ####[facility] Nfphoochqo9785[address] [place], [place] [address]Dr. Lizandro Hemphill Calcium [Mass/Vol] 8.3 mg/dL Critically low 8.5-10.1 Th [facility] Comment on above: Performed By: #### C MP ####[facility] Erqhwwyiyp6703 [place] [address]Dr. Lizandro Hemphill Chloride [Moles/Vol] 107 mmol/L Normal 98-107 [place] Comment on above: Performed By: #### C MP ####[facility] Kspboogcbf032[address] [place], [place] [address]Dr. Lizandro Hemphill CO2 [Moles/Vol] 26.4 mmol/L Normal 21.0-32.0 [facility] Comment on above: Performed By: #### C MP ####[facility] Hjqpxsuxby4380[address] [place], [place] [address]Dr. Lizandro Hemphill Creatinine [Mass/Vol] 1.47 mg/dL Critically high 0.55-1.02 [place] Comment on above: Performed By: #### C MP ####[facility] Kwydhonbnv665[address] [place], [place] [address]Dr. Lizandro Hemphill EGFR-AF CITIZEN OF [place] 44 mL/min/1.73m2 Critically low >=60 [place] Comment on above: Performed By: #### C MP ####[facility] Ysipfyjojp1089[address] [place], [place] [address]Dr. Lizandro Hemphlil EGFR-NON AF CITIZEN OF [place] 36 mL/min/1.73m2 Critically low >=60 [place] Comment on above: Performed By: #### C MP ####[facility] Lyfszlkjgb5826[address] [place], [place] [address]Dr. Lizandro Hemphill Globulin (S) [Mass/Vol] 2.8 g/dL Normal [place] Comment on above: Performed By: #### C MP ####[facility] Nlkdsgckua6304[address] [place], [place] [address]Dr. Lizandro Hemphill Glucose [Mass/Vol] 122 mg/dL Critically high 74-106 [facility] Comment on above: Performed By: #### C MP ####[facility] Lceowkonai5639[address] [place], [place] [address]Dr. Lizandro Hemphill Potassium [Moles/Vol] 3.3 mmol/L Critically low 3.5-5.1 [place] Comment on above: Performed By: #### C MP ####[facility] Ovatyshyif4584 [place] [address]Dr. Lizandro Hemphill Protein [Mass/Vol] 5.5 g/dL Critically low 6.4-8.[address] [facility] Comment on above: Performed By: #### C MP ####[facility] Tmmuknvlxx7249 [place] [address]Dr. Lizandro Hemphill Sodium [Moles/Vol] 144 mmol/L Normal 136-145 [facility] Comment on above: Performed By: #### C MP ####[facility] Tptkpcqraj8388[address] [place], [place] [address]Dr. Lizandro Hemphill Urea nitrogen [Mass/Vol] 19.0 mg/dL Critically high 7.0-18.0 [place] Comment on above: Performed By: #### C MP ####[facility] Svdrwtdfki9425[address] [place], [place] [address]Dr. Lizandro Hemphill Urea nitrogen/Creatinin e [Mass ratio] 12.9 mg/mg Normal [place] Comment on above: Performed By: #### C MP ####[facility] Fdvphnzwlk1432[address] [place], [place] [address]Dr. Shanikaannie Hemphill PROTIMEon 05-27-2022 INR Coag (PPP) [Relative time] 1.18 {INR} Normal [place] Comment on above: Performed By: #### P T ####[facility] Jefivhcckz099[address] [place], [place] [address]Dr. Lizandro Hemphill INR GUIDELINES SEE BELOW Normal [facility] Comment on above: Result Comment: GUEVARA RED INR: 2.0 - 3.0 CONDITIONS NOT LISTED BELOW 2.5 - 3.5 FOR PROSTHETIC HEART VALVE REPLACEMENT 2.5 - 3.5 RECURRENT THROMBOSIS Performed By: #### P T ####[facility] Rzdgfepsqi2947[address] [place], [place] [address]Dr. Lizandro Hemphill PT Coag (PPP) [Time] 12.4 s Critically high 9.0-11.6 [place] Comment on above: Performed By: #### P T ####[facility] Htgsefnlpw1215 [place] [address]Dr. Lizandro Hemphill TYPE AND SCREENon 05-27-2022 TYPE AND SCREEN Negative Normal [facility] Comment on above: Performed By: #### T NS ####[facility] Gvaajyqimb25[address] [place], [place] [address]Dr. Lizandro Hemphill CBC AUTO DIFFon 05-26-2022 BASO # 0.1 103/ul Normal 0.0-0.1 [place] Comment on above: Performed By: #### C BC ####[facility] Suglxjitye[address] [place], [place] [address]Dr. Lizandro Hemphill Basophils/100 WBC (Bld) 0.6 % Normal 0.2-2.0 [place] Comment on above: Performed By: #### C BC ####[facility] Saayacrnoa58[address] [place], [place] [address]Dr. Lizandro Hemphill EO # 0.0 103/ul Normal 0.0-0.7 [facility] Comment on above: Performed By: #### C BC ####[facility] Zafjaiejxi9954[address] [place], [place] [address]Dr. Lizandro Hemphill Eosinophils/100 WBC (Bld) 0.2 % Critically low 0.9-7.0 [place] Comment on above: Performed By: #### C BC ####[facility] Mgheyllrtq3656[address] [place], [place] [address]Dr. Lizandro Hemphill Erythrocyte distribution width (RBC) [Ratio] 20.1 % Critically high 11.0-15.0 [facility] Comment on above: Performed By: #### C BC ####[facility] Ugxmpxursm2656[address] [place], [place] [address]Dr. Lizandro Hemphill Hematocrit (Bld) [Volume fraction] 31.2 % Critically low 36.0-48.0 [place] Comment on above: Performed By: #### C BC ####[facility] Fkltbbijki[address] [place], [place] [address]DrCiro Hemphill Hemoglobin (Bld) [Mass/Vol] 9.8 g/dL Critically low 12.0-16.0 [facility] Comment on above: Performed By: #### C BC ####[facility] Iepehbvhmh7212 [place] [address]DrCiro Hemphill IG # 0.03 10e3/ul Normal 0.00-0.03 [facility] Comment on above: Performed By: #### C BC ####[facility] Mhemmyvoiw[address] [place], [place] [address]DrCiro Hemphill IG % 0.3 % Normal 0.0-0.5 [facility] Comment on above: Performed By: #### C BC ####[facility] Ptctxhdpjd[address] [address] [place], [place] [address]DrCrio Hemphill LYMPH # 1.4 103/ul Normal 1.2-3.8 [facility] Comment on above: Performed By: #### C BC ####[facility] Myopugsyei[address] [place], [place] [address]DrCiro Hemphill Lymphocytes/100 WBC (Bld) 15.1 % Critically low 20.5-60.0 [place] Comment on above: Performed By: #### C BC ####[facility] Gqgpsqielm[address] [place], [place] [address]DrCiro Hemphill MANUAL DIFF REQ NO Normal [facility] Comment on above: Performed By: #### C BC ####[facility] Cvqowmiwdu07[address] [place], [place] [address]DrCiro Hemphill MCH (RBC) [Entitic mass] 25.1 pg Critically low 26.7-34.0 [facility] Comment on above: Performed By: #### C BC ####[facility] Reirqghqxm[address] [place], [place] [address]DrCiro Hemphill MCHC (RBC) [Mass/Vol] 31.4 g/dL Normal 29.9-35.2 [facility] Comment on above: Performed By: #### C BC ####[facility] Ckdffpmwfd66[address] [place], [place] [address]DrCiro Hemphill MCV (RBC) [Entitic vol] 79.8 fL Critically low 81.0-99.0 [facility] Comment on above: Performed By: #### C BC ####[facility] Vadmogdrcd[address] [place] [address] Lizandro Hemphill MONO # 1.0 103/ul Critically high 0.3-0.[address] [facility] Comment on above: Performed By: #### C BC ####[facility] Asieyjdism4[address] [place], [place] [address]DrCiro Lizandro Hemphill Monocytes/100 WBC (Bld) 11.5 % Normal 1.7-12.0 [facility] Comment on above: Performed By: #### C BC ####[facility] Hdfubocicb[address] [place], [place] [address]DrCiro Lizandro Hemphill NEUT # 6.5 103/ul Normal 1.4-6.5 [facility] Comment on above: Performed By: #### C BC ####[facility] Ukhhtltyoa47[address] [place], [place] [address]DrCiro Lizandro Hemphill Neutrophils/100 WBC (Bld) 72.3 % Normal 43.0-75.0 [facility] Comment on above: Performed By: #### C BC ####[facility] Xhgbkctwoq13[address] [place], [place] [address]DrCiro Lizandro Hemphill Platelet mean volume (Bld) [Entitic vol] 10.2 fL Normal 9.5-13.5 [facility] Comment on above: Performed By: #### C BC ####[facility] Qyikcfzsfn9[address] [place], [place] [address]DrCiro Lizandro Hemphill PLT 395 103/ul Normal 150-450 [facility] Comment on above: Performed By: #### C BC ####[facility] Lcwdojnncn94[address] [place], [place] [address]DrCiro Lizandro Joby RBC 3.91 106/ul Critically low 4.20-5.[address] [facility] Comment on above: Performed By: #### C BC ####[facility] Uscleblomj[address] [place], [place] [address]Dr. Lizandro Hemphill WBC 9.0 103/ul Normal 4.0-11.0 [place] Comment on above: Performed By: #### C BC ####[facility] [address]nclirlboh[address] [place] [id number]. Lizandro Hemphill CPKon 05-26-2022 CK [Catalytic activity/Vol] 260 U/L Critically high 26-192 [facility] Comment on above: Performed By: #### L IPA, CMP, CK, HSTROPN ####[facility] Qfovazssfo5[address] [place] [id number]. Lizandro Hemphill Covid-19 PCR (CVDTB)on SARS-CoV-2 (COVID-19) RNA VERITO+probe Ql (Unsp spec) Not detected Normal NOT DETECTED [facility] Comment on above: Result Comment: When [...] for this test is supported by the [place] of Health and Human Service's declaration that [...] be used). Performed By: #### C VDTBH ####[facility] Kplgkeuxbe15[address] [place] [id number]. Lizandro Hemphill LIPASEon 05-26-2022 Lipase [Catalytic activity/Vol] 258.0 U/L Normal 73.0-393.0 [place] Comment on above: Performed By: #### L IPA, CMP, CK, HSTROPN ####[facility] Zdqfndawju75[address] [place] [address]Dr. Lizandro Hemphill PH VENOUS BLOODon 05-26-2022 PCO2 VENOUS 28.2 mmHg Critically low 40.0-52.[address] [facility] Comment on above: Performed By: #### P HVEN ####[facility] Siywmysvcy4[address] [place] [address]Dr. Lizandro Hemphill pH VENOUS 7.554 Critically high 7.330-7.430 [facility] Comment on above: Performed By: #### P HVEN ####[facility] Kenitlrebh[address] [place] [address]Dr. Lizandro Hemphill PROF 14(COMP METB)on 023 Albumin [Mass/Vol] 3.8 g/dL Normal 3.4-5.0 [facility] Comment on above: Performed By: #### L IPA, CMP, CK, HSTROPN ####[facility] Ibgieijats3243 [place] [address]Dr. Lizandro Hemphill Albumin/Globulin [Mass ratio] 1.0 {ratio} Normal [place] Comment on above: Performed By: #### L IPA, CMP, CK, HSTROPN ####[facility] Jwmawsplbj0428 [place] [address]Dr. Lizandro Hemphill ALP [Catalytic activity/Vol] 115 U/L Normal 46-116 [facility] Comment on above: Performed By: #### L IPA, CMP, CK, HSTROPN ####[facility] Setxbskhes2813 [place] [address]Dr. Lizandro Hemphill ALT [Catalytic activity/Vol] 36 U/L Normal 14-59 [facility] Comment on above: Performed By: #### L IPA, CMP, CK, HSTROPN ####[facility] Vdbutflgyo8429 [place] [address]Dr. Lizandro Hemphill Anion gap [Moles/Vol] 15.9 mmol/L Normal [place] Comment on above: Performed By: #### L IPA, CMP, CK, HSTROPN ####[facility] Zvllkhubgx0407 [place] [address]Dr. Lizandro Hemphill AST [Catalytic activity/Vol] 46 U/L Critically high 15-37 [place] Comment on above: Performed By: #### L IPA, CMP, CK, HSTROPN ####[facility] Ecentavkjg3101 [place] [address]Dr. Lizandro Hemphill Bilirubin [Mass/Vol] 0.4 mg/dL Normal 0.2-1.0 [place] Comment on above: Performed By: #### L IPA, CMP, CK, HSTROPN ####[facility] Gyrmfjdhxt8694 [place] [address]Dr. Lizandro Hemphill Calcium [Mass/Vol] 9.5 mg/dL Normal 8.5-10.1 [facility] Comment on above: Performed By: #### L IPA, CMP, CK, HSTROPN ####[facility] Hdgohwfozp9473 [place] [address]Dr. Lizandro Hemphill Chloride [Moles/Vol] 104 mmol/L Normal 98-107 [place] Comment on above: Performed By: #### L IPA, CMP, CK, HSTROPN ####[facility] Xqiiycmvbp[address] [place], [place] [address]Dr. Lizandro Hemphill CO2 [Moles/Vol] 24.7 mmol/L Normal 21.0-32.0 [facility] Comment on above: Performed By: #### L IPA, CMP, CK, HSTROPN ####[facility] Nomzhbzeyu9[address] [place], [place] [address]Dr. Lizandro Hemphill Creatinine [Mass/Vol] 1.12 mg/dL Critically high 0.55-1.02 [place] Comment on above: Performed By: #### L IPA, CMP, CK, HSTROPN ####[facility] Yuyjmciggl20[address] [place] [address]Dr. Lizandro Hemphill EGFR-AF [place]IZ[place] 60 mL/min/1.73m2 Normal >=60 [facility] Comment on above: Performed By: #### L IPA, CMP, CK, HSTROPN ####[facility] Yzsracleup4[address] [place] [address]Dr. Lizandro Hemphill EGFR-NON AF CITIZEN OF [place] 50 mL/min/1.73m2 Critically low >=60 [facility] Comment on above: Performed By: #### L IPA, CMP, CK, HSTROPN ####[facility] Adrvggmluo6854 [place] [address]Dr. Lizandro Hemphill Globulin (S) [Mass/Vol] 3.8 g/dL Normal [facility] Comment on above: Performed By: #### L IPA, CMP, CK, HSTROPN ####[facility] Xxhwsmtbpu3024 [place] [address]Dr. Lizandro Hemphill Glucose [Mass/Vol] 92 mg/dL Normal 74-106 [facility] Comment on above: Performed By: #### L IPA, CMP, CK, HSTROPN ####[facility] Kdknuwqkll98[address] [place] [address]Dr. Lizandro Hemphill Potassium [Moles/Vol] 3.6 mmol/L Normal 3.5-5.1 [facility] Comment on above: Performed By: #### L IPA, CMP, CK, HSTROPN ####[facility] Yyqmfsthpn9915 [place] [address]Dr. Lizandro Hemphill Protein [Mass/Vol] 7.6 g/dL Normal 6.4-8.2 [facility] Comment on above: Performed By: #### L IPA, CMP, CK, HSTROPN ####[facility] Qnhaeoaxgw4714 [place] [address]Dr. Lizandro Hemphill Sodium [Moles/Vol] 141 mmol/L Normal 136-145 [facility] Comment on above: Performed By: #### L IPA, CMP, CK, HSTROPN ####[facility] Ewuoboamlp9910 [place] [address]Dr. Lizandro Hemphill Urea nitrogen [Mass/Vol] 22.0 mg/dL Critically high 7.0-18.0 [facility] Comment on above: Performed By: #### L IPA, CMP, CK, HSTROPN ####[facility] Qmkzkqzzqd2625 [place] [address]Dr. Lizandro Hemphill Urea nitrogen/Creatinin e [Mass ratio] 19.6 mg/mg Normal [facility] Comment on above: Performed By: #### L IPA, CMP, CK, HSTROPN ####[facility] Zqpmltjrmp76[address] [place] [address]Dr. Lizandro Hemphill TROPONIN, HIGH SENSITIVITYon 05-26-2022 HSTROP 8.9 pg/mL Normal 4.0-51.3 [facility] Comment on above: Result Comment: CUT- OFF POINTS HAVE BEEN ESTABLISHED BASED ON THE FOURTH UNIVERSAL DEFINITIONS OF MYOCARDIALINFARCTION. THE UPPER REFERENCE LIMIT (URL) OF TROPONIN, DEFINED THE 99TH PERCENTILE OFcTnI DISTRIBUTION IN A REFERENCE POPULATION, HAS BEEN CONFIRMED THE DECISION THRESHOLDFOR MS DIAGNOSIS. Performed By: #### L IPA, CMP, CK, HSTROPN ####[facility] Ieaqmmgjmf26[address] [place] [address]Dr. Lizandro Hemphill XR CHEST 1 Von 05-26-2022 XR CHEST 1 V Normal [facility] TROPONIN, HIGH SENSITIVITYon 05-23-2022 HSTROP 9.8 pg/mL Normal 4.0-51.3 [facility] Comment on above: Result Comment: CUT- OFF POINTS HAVE BEEN ESTABLISHED BASED ON THE FOURTH UNIVERSAL DEFINITIONS OF MYOCARDIALINFARCTION. THE UPPER REFERENCE LIMIT (URL) OF TROPONIN, DEFINED THE 99TH PERCENTILE OFcTnI DISTRIBUTION IN A REFERENCE POPULATION, HAS BEEN CONFIRMED THE DECISION THRESHOLDFOR MS DIAGNOSIS. Performed By: #### H STROPN ####[facility] Hzgwntguqc8450 [place] [address]Dr. Lizandro Hemphill CBC AUTO DIFFon 05-22-2022 BASO # 0.1 103/ul Normal 0.0-0.1 [place] Comment on above: Performed By: #### C BC ####[facility] Izeypjxcue67[address] [place] [address]Dr. Lizandro Hemphill Basophils/100 WBC (Bld) 0.9 % Normal 0.2-2.0 [place] Comment on above: Performed By: #### C BC ####[facility] Aoigbxqgup35[address] [place], [place] [address]Dr. Lizandro Hemphill EO # 0.0 103/ul Normal 0.0-0.7 [place] Comment on above: Performed By: #### C BC ####[facility] Fszncxyxmx9536 [place] [address]Dr. Lizandro Hemphill Eosinophils/100 WBC (Bld) 0.1 % Critically low 0.9-7.0 [place] Comment on above: Performed By: #### C BC ####[facility] Qzvpcccwny5[address] [place], [place] [address]Dr. Lizandro Hemphill Erythrocyte distribution width (RBC) [Ratio] 19.3 % Critically high 11.0-15.0 [place] Comment on above: Performed By: #### C BC ####[facility] Lgiyzvzmts14[address] [place], [place] [address]Dr. Lizandro Hemphill Hematocrit (Bld) [Volume fraction] 31.1 % Critically low 36.0-48.0 [place] Comment on above: Performed By: #### C BC ####[facility] Fpqmiucvnj1030[address] [place], [place] [address]Dr. Lizandro Hemphill Hemoglobin (Bld) [Mass/Vol] 9.8 g/dL Critically low 12.0-16.0 [place] Comment on above: Performed By: #### C BC ####[facility] Kvcoahcnxw6744[address] [place], [place] [address]Dr. Lizandro Hemphill IG # 0.04 10e3/ul Critically high 0.00-0.03 [facility] Comment on above: Performed By: #### C BC ####[facility] Zgsuzyrqkw936[address] [place], [place] [address]Dr. Lizandro Hemphill IG % 0.4 % Normal 0.0-0.5 [facility] Comment on above: Performed By: #### C BC ####[facility] Dymzlmngqs34[address] [place], [place] [address]Dr. Lizandro Hemphill LYMPH # 1.5 103/ul Normal 1.2-3.8 [facility] Comment on above: Performed By: #### C BC ####[facility] Hdndnccclg8326[address] [place], [place] [address]Dr. Lizandro Hemphill Lymphocytes/100 WBC (Bld) 15.1 % Critically low 20.5-60.0 [place] Comment on above: Performed By: #### C BC ####[facility] Jcidtfvwwi4442 [place] [address]DrCiro Hemphill MANUAL DIFF REQ NO Normal [facility] Comment on above: Performed By: #### C BC ####[facility] Tokhjuswin8797 [place] [address]DrCiro Hemphill MCH (RBC) [Entitic mass] 24.7 pg Critically low 26.7-34.0 [facility] Comment on above: Performed By: #### C BC ####[facility] Ejgvuiglbo32[address] [place], [place] [address]DrCiro Hemphill MCHC (RBC) [Mass/Vol] 31.5 g/dL Normal 29.9-35.2 [facility] Comment on above: Performed By: #### C BC ####[facility] Rlxutcdejt55[address] [place], [place] [address]DrCiro Hemphill MCV (RBC) [Entitic vol] 78.3 fL Critically low 81.0-99.0 [facility] Comment on above: Performed By: #### C BC ####[facility] Wjjperhxjj5164[address] [place], [place] [address]DrCiro Hemphill MONO # 1.1 103/ul Critically high 0.3-0.[address] [facility] Comment on above: Performed By: #### C BC ####[facility] Mbkvjydigt124[address] [place], [place] [address]DrCiro Hemphill Monocytes/100 WBC (Bld) 11.4 % Normal 1.7-12.0 [facility] Comment on above: Performed By: #### C BC ####[facility] Kxhfeinuzf58[address] [place], [place] [address]DrCiro Hemphill NEUT # 7.1 103/ul Critically high 1.4-6.[address] [facility] Comment on above: Performed By: #### C BC ####[facility] Iueemwpdio18[address] [place], [place] [address]DrCiro Hemphill Neutrophils/100 WBC (Bld) 72.1 % Normal 43.0-75.0 [place] Comment on above: Performed By: #### C BC ####[facility] Oamjvzamif6[address] [place] [address]Dr. Lizandro Hemphill Platelet mean volume (Bld) [Entitic vol] 10.3 fL Normal 9.5-13.5 [place] Comment on above: Performed By: #### C BC ####[facility] Gnkbpjbswb2551 [place] [address]Dr. Lizandro Hemphill PLT 491 103/ul Critically high 150-[address] [facility] Comment on above: Performed By: #### C BC ####[facility] Jvtbdkfmji4030 [place] [address]Dr. Lizandro Hemphill RBC 3.97 106/ul Critically low 4.20-5.[address] [facility] Comment on above: Performed By: #### C BC ####[facility] Mckcxywtav9446 [place] [address]Dr. Lizandro Hemphill WBC 9.8 103/ul Normal 4.0-11.0 [facility] Comment on above: Performed By: #### C BC ####[facility] Aacxcewznh39[address] [place] [address]Dr. Lizandro Hemphill D-DIMERon 05-22-2022 D-DIMER 0.37 mg/L FEU Normal <=0.59 [facility] Comment on above: Performed By: #### D DIM ####[facility] Rxkdfqrzlt6[address] [place], [place] [address]Dr. Lizandro Hemphill D-DIMER COMMENTS SEE BELOW Normal [facility] Comment on above: Result Comment: Incr [...] generalized hospitalization. Performed By: #### D DIM ####[facility] Tzqczzszog6492 [place] [address]Dr. Lizandro Hemphill LACTATE/LACTIC ACIDon 2022 Lactate [Moles/Vol] 2.7 mmol/L Critically high 0.4-1.9 [place] Comment on above: Performed By: #### L ACT ####[facility] Hyimvqlboj[address] [place], [place] [address]Dr. Lizandro Hemphill PROF 14(COMP METB)on 023 Albumin [Mass/Vol] 4.1 g/dL Normal 3.4-5.0 [facility] Comment on above: Performed By: #### C MARGARITA HSTROPN ####[facility] Ymookzeffn5[address] [place] [address]Dr. Lizandro Hemphill Albumin/Globulin [Mass ratio] 1.1 {ratio} Normal [place] Comment on above: Performed By: #### C MARGARITA HSTROPN ####[facility] Etxpvpddjh17[address] [place], [place] [address]Dr. Lizandro Hemphill ALP [Catalytic activity/Vol] 142 U/L Critically high 46-116 [place] Comment on above: Performed By: #### C MARGARITA HSTROPN ####[facility] Viffcdnrkx0812 [place] [address]Dr. Lizandro Hemphill ALT [Catalytic activity/Vol] 37 U/L Normal 14-59 [facility] Comment on above: Performed By: #### C MARGARITA HSTROPN ####[facility] Qtrbncwdkw3027 [place] [address]Dr. Lizandro Hemphill Anion gap [Moles/Vol] 20.2 mmol/L Normal [place] Comment on above: Performed By: #### C MARGARITA HSTROPN ####[facility] Yddwhbkvde0041 [place] [address]Dr. Lizandro Hemphill AST [Catalytic activity/Vol] 38 U/L Critically high 15-37 [place] Comment on above: Performed By: #### C MARGARITA, HSTROPN ####[facility] Oohatzfvjg4515 [place] [address]Dr. Shanikaannie Hemphill Bilirubin [Mass/Vol] 0.5 mg/dL Normal 0.2-1.0 [facility] Comment on above: Performed By: #### C MP, HSTROPN ####[facility] Rhuiyssqwx3201 [place] [address]Dr. Lizandro Hemphill Calcium [Mass/Vol] 10.0 mg/dL Normal 8.5-10.1 [facility] Comment on above: Performed By: #### C MP, HSTROPN ####[facility] Vbdfwznhpw5898 [place] [address]Dr. Lizandro Hemphill Chloride [Moles/Vol] 99 mmol/L Normal 98-107 [place] Comment on above: Performed By: #### C MP, HSTROPN ####[facility] Mwmsxmpdas54[address] [place], [place] [address]Dr. Lizandro Hemphill CO2 [Moles/Vol] 21.8 mmol/L Normal 21.0-32.0 [facility] Comment on above: Performed By: #### C MP, HSTROPN ####[facility] Ikdfszssab7[address] [place], [place] [address]Dr. Lizandro Hemphill Creatinine [Mass/Vol] 1.19 mg/dL Critically high 0.55-1.02 [place] Comment on above: Performed By: #### C MP, HSTROPN ####[facility] Mvhurdrlvq7[address] [place], [place] [address]Dr. Lizandro Hemphill EGFR-AF CITIZ[place] OF [place] 56 mL/min/1.73m2 Critically low >=60 [facility] Comment on above: Performed By: #### C MP, HSTROPN ####[facility] Sqdugwhgdv8[address] [place], [place] [address]Dr. Lizandro Hemphill EGFR-NON AF [place]IZEN OF [place] 46 mL/min/1.73m2 Critically low >=60 [facility] Comment on above: Performed By: #### C MP, HSTROPN ####[facility] Ixebxsbjwr5[address] [place], [place] [address]Dr. Lizandro Hemphill Globulin (S) [Mass/Vol] 3.8 g/dL Normal [place] Comment on above: Performed By: #### C MARGARITA, HSTROPN ####[facility] Iitoswehjm4555 [place] [address]Dr. Lizandro Hemphill Glucose [Mass/Vol] 107 mg/dL Critically high 74-106 [facility] Comment on above: Performed By: #### C MARGARITA, HSTROPN ####[facility] Azkmtbxclx9971 [place] [address]Dr. Lizandro Hemphill Potassium [Moles/Vol] 4.0 mmol/L Normal 3.5-5.1 [facility] Comment on above: Performed By: #### C MARGARITA, HSTROPN ####[facility] Xuxfwpgxia0916 [place] [address]Dr. Lizandro Hemphill Protein [Mass/Vol] 7.9 g/dL Normal 6.4-8.2 [facility] Comment on above: Performed By: #### C MARGARITA, HSTROPN ####[facility] Pnmaewrsbp4[address] [place], [place] [address]Dr. Lizandro Hemphill Sodium [Moles/Vol] 137 mmol/L Normal 136-145 [facility] Comment on above: Performed By: #### C MARGARITA, HSTROPN ####[facility] Useurvlykw0333 [place] [address]Dr. Lizandro Hemphill Urea nitrogen [Mass/Vol] 20.0 mg/dL Critically high 7.0-18.0 [place] Comment on above: Performed By: #### C MARGARITA, HSTROPN ####[facility] Rpvytnbnxz1614 [place] [address]Dr. Lizandro Hemphill Urea nitrogen/Creatinin e [Mass ratio] 16.8 mg/mg Normal [facility] Comment on above: Performed By: #### C MP, HSTROPN ####[facility] Uvadktfnoc1760 [place] [address]Dr. Lizandro Hemphill TROPONIN, HIGH SENSITIVITYon 05-22-2022 HSTROP 10.2 pg/mL Normal 4.0-51.3 [facility] Comment on above: Result Comment: CUT- OFF POINTS HAVE BEEN ESTABLISHED BASED ON THE FOURTH UNIVERSAL DEFINITIONS OF MYOCARDIALINFARCTION. THE UPPER REFERENCE LIMIT (URL) OF TROPONIN, DEFINED THE 99TH PERCENTILE OFcTnI DISTRIBUTION IN A REFERENCE POPULATION, HAS BEEN CONFIRMED THE DECISION THRESHOLDFOR MS DIAGNOSIS. Performed By: #### C MP, HSTROPN ####[facility] Bzathfzbdo[address] [place], [place] [address]Dr. Lizandro Hemphill XR CHEST 1 Von 05-22-2022 XR CHEST 1 V Normal [facility] CBC AUTO DIFFon 05-06-2022 BASO # 0.1 103/ul Normal 0.0-0.1 [facility] Comment on above: Performed By: #### C BC ####[facility] Jxptkufiet99[address] [place], [place] [address]Dr. Lizandro Hemphill Basophils/100 WBC (Bld) 0.9 % Normal 0.2-2.0 [facility] Comment on above: Performed By: #### C BC ####[facility] Bxmwexkcbb27[address] [place], [place] [address]Dr. Lizandro Hemphill EO # 0.1 103/ul Normal 0.0-0.7 [facility] Comment on above: Performed By: #### C BC ####[facility] Kawdvslesu05[address] [place], [place] [address]Dr. Shanikaannie Hemphill Eosinophils/100 WBC (Bld) 0.9 % Normal 0.9-7.0 [facility] Comment on above: Performed By: #### C BC ####[facility] Mxhyeezhpf12[address] [place], [place] [address]Dr. Lizandro Hemphill Erythrocyte distribution width (RBC) [Ratio] 18.9 % Critically high 11.0-15.0 [facility] Comment on above: Performed By: #### C BC ####[facility] Ijguennwrr[address] [place], [place] [address]Dr. Lizandro Hemphill Hematocrit (Bld) [Volume fraction] 27.0 % Critically low 36.0-48.0 [facility] Comment on above: Performed By: #### C BC ####[facility] Ypuualoduv0828 [place] [id number]. Lizandro Hemphill Hemoglobin (Bld) [Mass/Vol] 8.2 g/dL Critically low 12.0-16.0 [facility] Comment on above: Performed By: #### C BC ####[facility] Tobtfomedc4623 [place] [id number]. Lizandro Hemphill IG # 0.01 10e3/ul Normal 0.00-0.03 [facility] Comment on above: Performed By: #### C BC ####[facility] Depjrjtzwe3153 [place] [address]Dr. Lizandro Joby IG % 0.2 % Normal 0.0-0.5 [facility] Comment on above: Performed By: #### C BC ####[facility] Gqthgevftr9475 [place] [address]Dr. Shanikaannie Joby LYMPH # 1.1 103/ul Critically low 1.2-3.8 [facility] Comment on above: Performed By: #### C BC ####[facility] Ujdhsbhyjm4074 [place] [address]Dr. Lizandro Joby Lymphocytes/100 WBC (Bld) 17.0 % Critically low 20.5-60.0 [facility] Comment on above: Performed By: #### C BC ####[facility] Gbgytmuxch4939 [place] [address]Dr. Lizandro Joby MANUAL DIFF REQ NO Normal [facility] Comment on above: Performed By: #### C BC ####[facility] Wqucrbcsar0724 [place] [address]Dr. Lizandro Joby MCH (RBC) [Entitic mass] 25.8 pg Critically low 26.7-34.0 [facility] Comment on above: Performed By: #### C BC ####[facility] [address]uxxdliyh[address] [place], [place] [address]Dr. Lizandro Joby MCHC (RBC) [Mass/Vol] 30.4 g/dL Normal 29.9-35.2 [facility] Comment on above: Performed By: #### C BC ####[facility] Kaxivcpksm7979 [place] [id number]. Lizandro Hemphill MCV (RBC) [Entitic vol] 84.9 fL Normal 81.0-99.0 [facility] Comment on above: Performed By: #### C BC ####[facility] Onypnrgrdm4750 [place] [id number]. Lizandro Hemphill MONO # 0.7 103/ul Normal 0.3-0.8 [facility] Comment on above: Performed By: #### C BC ####[facility] Fcfxzllsca1157 [place] [id number]. Lizandro Hemphill Monocytes/100 WBC (Bld) 11.6 % Normal 1.7-12.0 [facility] Comment on above: Performed By: #### C BC ####[facility] Reqdnmlvaz25[address] [place] [id number]. Lizandro Hemphill NEUT # 4.4 103/ul Normal 1.4-6.5 [facility] Comment on above: Performed By: #### C BC ####[facility] Ityepviszj3590 [place] [id number]. Lizandro Hemphill Neutrophils/100 WBC (Bld) 69.4 % Normal 43.0-75.0 [facility] Comment on above: Performed By: #### C BC ####[facility] Pglkvsdpdv9888 [place] [id number]. Lizandro Hemphill Platelet mean volume (Bld) [Entitic vol] 10.8 fL Normal 9.5-13.5 [facility] Comment on above: Performed By: #### C BC ####[facility] Zyeklxijss8220 [place] [id number]. Lizandro Hemphill PLT 291 103/ul Normal 150-450 [facility] Comment on above: Performed By: #### C BC ####[facility] Nycmgotzfd4757 [place] [id number]. Lizandro Hemphill RBC 3.18 106/ul Critically low 4.20-5.[address] [facility] Comment on above: Performed By: #### C BC ####[facility] Dkrghwbepv95[address] [place] [address]Dr. Lizandro Joby WBC 6.4 103/ul Normal 4.0-11.0 [place] Comment on above: Performed By: #### C BC ####[facility] Nasvafrnct[address] [place], [place] [address]Dr. Lizandro Hemphill PROF 14(COMP METB)on 023 Albumin [Mass/Vol] 2.4 g/dL Critically low 3.4-5.0 [facility] Comment on above: Performed By: #### C MP ####[facility] Pjotpgfxsd[address] [place], [place] [address]Dr. Lizandro Hemphill Albumin/Globulin [Mass ratio] 0.8 {ratio} Normal [place] Comment on above: Performed By: #### C MP ####[facility] Ckkqncmepv80[address] [place], [place] [address]Dr. Lizandro Hemphill ALP [Catalytic activity/Vol] 121 U/L Critically high 46-116 [place] Comment on above: Performed By: #### C MP ####[facility] Tiyukwxbqf2624[address] [place], [place] [address]Dr. Lizandro Hemphill ALT [Catalytic activity/Vol] 17 U/L Normal 14-59 [place] Comment on above: Performed By: #### C MP ####[facility] Ewslplujhf3785[address] [place], [place] [address]Dr. Lizandro Hemphill Anion gap [Moles/Vol] 10.9 mmol/L Normal [place] Comment on above: Performed By: #### C MP ####[facility] Rjzuobjrsn8711[address] [place], [place] [address]Dr. Shanikaannie Hemphill AST [Catalytic activity/Vol] 23 U/L Normal 15-37 [place] Comment on above: Performed By: #### C MP ####[facility] Znxqxagatf2599[address] [place], [place] [address]Dr. Lizandro Hemphill Bilirubin [Mass/Vol] 0.2 mg/dL Normal 0.2-1.0 [place] Comment on above: Performed By: #### C MP ####[facility] Omdfenrmef6[address] [place] [address]Dr. Lizandro Hemphill Calcium [Mass/Vol] 8.3 mg/dL Critically low 8.5-10.1 [facility] Comment on above: Performed By: #### C MP ####[facility] Cvzzdublxx4648 [place] [address]Dr. Lizandro Hemphill Chloride [Moles/Vol] 106 mmol/L Normal 98-107 [place] Comment on above: Performed By: #### C MP ####[facility] Hepuucsvni0136[address] [place], [place] [address]Dr. Lizandro Hemphill CO2 [Moles/Vol] 26.7 mmol/L Normal 21.0-32.0 [facility] Comment on above: Performed By: #### C MP ####[facility] Rokvezwuaq045[address] [place], [place] [address]Dr. Lizandro Hemphill Creatinine [Mass/Vol] 0.88 mg/dL Normal 0.55-1.02 [place] Comment on above: Performed By: #### C MP ####[facility] Zagyybcvij813[address] [place], [place] [address]Dr. Lizandro Hemphill EGFR-AF CITIZ[place] >60 Normal >=60 [facility] Comment on above: Performed By: #### C MP ####[facility] Xjiligvmnv9564[address] [place], [place] [address]Dr. Lizandro Hemphill EGFR-NON AF CITIZ[place] OF [place] >60 Normal >=60 [place] Comment on above: Performed By: #### C MP ####[facility] Pbprqazrdo9586[address] [place], [place] [address]Dr. Lizandro Hemphill Globulin (S) [Mass/Vol] 3.0 g/dL Normal [place] Comment on above: Performed By: #### C MP ####[facility] Bcoypxflos9246[address] [place], [place] [address]Dr. Lizandro Joby Glucose [Mass/Vol] 101 mg/dL Normal 74-106 [facility] Comment on above: Performed By: #### C MP ####[facility] Liwltmzyrb6395[address] [place], [place] [address]Dr. Lizandro Hemphill Potassium [Moles/Vol] 3.6 mmol/L Normal 3.5-5.1 [place] Comment on above: Performed By: #### C MP ####[facility] Ojgzcihgqd9566 [place] [address]Dr. Lizandro Hemphill Protein [Mass/Vol] 5.4 g/dL Critically low 6.4-8.2 [facility] Comment on above: Performed By: #### C MP ####[facility] Nfuxytsuwx7808[address] [place], [place] [address]Dr. Lizandro Hemphill Sodium [Moles/Vol] 140 mmol/L Normal 136-145 [facility] Comment on above: Performed By: #### C MP ####[facility] Qiywjkshwz4120[address] [place], [place] [address]Dr. Lizandro Hemphill Urea nitrogen [Mass/Vol] 11.0 mg/dL Normal 7.0-18.0 [place] Comment on above: Performed By: #### C MP ####[facility] Fyxkjufrxt3447[address] [place], [place] [address]Dr. Lizandro Hemphill Urea nitrogen/Creatinin e [Mass ratio] 12.5 mg/mg Normal [place] Comment on above: Performed By: #### C MP ####[facility] Psqzisrtyf736[address] [place], [place] [address]DrCiro Hemphill PROTIMEon 05-06-2022 INR Coag (PPP) [Relative time] 1.49 {INR} Normal [place] Comment on above: Performed By: #### P T ####[facility] Ktxtzinffy9885[address] [place], [place] [address]Dr. Lizandro Hemphill INR GUIDELINES SEE BELOW Normal [facility] Comment on above: Result Comment: GUEVARA RED INR: 2.0 - 3.0 CONDITIONS NOT LISTED BELOW 2.5 - 3.5 FOR PROSTHETIC HEART VALVE REPLACEMENT 2.5 - 3.5 RECURRENT THROMBOSIS Performed By: #### P T ####[facility] Ncltrxfawc9877[address] [place], [place] [address]Dr. Lizandro Hemphill PT Coag (PPP) [Time] 15.4 s Critically high 9.0-11.6 [place] Comment on above: Performed By: #### P T ####[facility] Wkcltdupur85[address] [place] [address]Dr. Lizandro Joby CBC AUTO DIFFon 05-05-2022 BASO # 0.0 103/ul Normal 0.0-0.1 [place] Comment on above: Performed By: #### C BC ####[facility] Smdcvyqmxq8612[address] [place], [place] [address]Dr. Lizandro Hemphill Basophils/100 WBC (Bld) 0.6 % Normal 0.2-2.0 [facility] Comment on above: Performed By: #### C BC ####[facility] Rotahfofza4124[address] [place], [place] [address]Dr. Lizandro Hemphill EO # 0.0 103/ul Normal 0.0-0.7 [facility] Comment on above: Performed By: #### C BC ####[facility] Lcuczhqydv4843[address] [place], [place] [address]Dr. Lizandro Hemphill Eosinophils/100 WBC (Bld) 0.6 % Critically low 0.9-7.0 [place] Comment on above: Performed By: #### C BC ####[facility] Dtsuahbnpc[address] [place], [place] [address]Dr. Shanikaannie Hemphill Erythrocyte distribution width (RBC) [Ratio] 19.1 % Critically high 11.0-15.0 [place] Comment on above: Performed By: #### C BC ####[facility] Grfbpzpmyy611[address] [place], [place] [address]Dr. Lizandro Hemphill Hematocrit (Bld) [Volume fraction] 29.6 % Critically low 36.0-48.0 [facility] Comment on above: Performed By: #### C BC ####[facility] Zmgvynixzj5133[address] [place], [place] [address]Dr. Lizandro Hemphill Hemoglobin (Bld) [Mass/Vol] 9.1 g/dL Critically low 12.0-16.0 [place] Comment on above: Performed By: #### C BC ####[facility] Fpwpyksyyc917[address] [place], [place] [address]Dr. Lizandro Hemphill IG # 0.04 10e3/ul Critically high 0.00-0.03 [facility] Comment on above: Performed By: #### C BC ####[facility] Wvpkpqumtr99[address] [place] [address]Dr. Lizandro Hemphill IG % 0.6 % Critically high 0.0-0.5 [facility] Comment on above: Performed By: #### C BC ####[facility] Mlwmknpbre4160 [place] [address]DrCiro Hemphill LYMPH # 1.1 103/ul Critically low 1.2-3.8 [facility] Comment on above: Performed By: #### C BC ####[facility] Dykoqihmxv8236 [place] [address]DrCiro Hemphill Lymphocytes/100 WBC (Bld) 17.8 % Critically low 20.5-60.0 [place] Comment on above: Performed By: #### C BC ####[facility] Abubchxewv9228[address] [place], [place] [address]Dr. Lizandro Hemphill MANUAL DIFF REQ NO Normal [facility] Comment on above: Performed By: #### C BC ####[facility] Twqvlpaste4121 [place] [address]Dr. Lizandro Hemphill MCH (RBC) [Entitic mass] 26.7 pg Normal 26.7-34.0 [place] Comment on above: Performed By: #### C BC ####[facility] Vvbuqilcpg6042 [place] [address]Dr. Lizandro Hemphill MCHC (RBC) [Mass/Vol] 30.7 g/dL Normal 29.9-35.2 [facility] Comment on above: Performed By: #### C BC ####[facility] Cjertfugiu95[address] [place], [place] [address]DrCiro Hemphill MCV (RBC) [Entitic vol] 86.8 fL Normal 81.0-99.0 [place] Comment on above: Performed By: #### C BC ####[facility] Xvrqswfmwj3408[address] [place], [place] [address]DrCiro Hemphill MONO # 0.8 103/ul Normal 0.3-0.8 [facility] Comment on above: Performed By: #### C BC ####[facility] Bykfjtbxge7403 [place] [address]DrCiro Lizandro Hemphill Monocytes/100 WBC (Bld) 12.2 % Critically high 1.7-12.0 [place] Comment on above: Performed By: #### C BC ####[facility] Xwttjtflwj4909 [place] [address]Dr. Lizandro Hemphill NEUT # 4.3 103/ul Normal 1.4-6.5 [facility] Comment on above: Performed By: #### C BC ####[facility] Evdwbwtnzd5256 [place] [address]DrCiro Lizandro Hemphill Neutrophils/100 WBC (Bld) 68.2 % Normal 43.0-75.0 [place] Comment on above: Performed By: #### C BC ####[facility] Pvlervouym6069[address] [place], [place] [address]DrCiro Lizandro Hemphill Platelet mean volume (Bld) [Entitic vol] 10.2 fL Normal 9.5-13.5 [facility] Comment on above: Performed By: #### C BC ####[facility] Qruginhgky106[address] [place], [place] [address]Dr. Lizandro Hemphill PLT 305 103/ul Normal 150-450 [facility] Comment on above: Performed By: #### C BC ####[facility] Grbnxijqmg5321 [place] [address]DrCiro Lizandro Hemphill RBC 3.41 106/ul Critically low 4.20-5.[address] [facility] Comment on above: Performed By: #### C BC ####[facility] Werdkljnvd2772 [place] [address]Dr. Lizandro Hemphill WBC 6.3 103/ul Normal 4.0-11.0 [facility] Comment on above: Performed By: #### C BC ####[facility] Kqlnjubrbw2457 [place] [address]DrCiro Hemphill PROF 14(COMP METB)on 02-10-2 023 Albumin [Mass/Vol] 2.3 g/dL Critically low 3.4-5.[address] [facility] Comment on above: Performed By: #### C MP ####[facility] Yzfbpspjny9296 [place] [address]Dr. Lizandro Hemphill Albumin/Globulin [Mass ratio] 0.8 {ratio} Normal [place] Comment on above: Performed By: #### C MP ####[facility] Alvwkhawja9[address] [place] [address]Dr. Lizandro Hemphill ALP [Catalytic activity/Vol] 121 U/L Critically high 46-116 [place] Comment on above: Performed By: #### C MP ####[facility] Pbluhchawx2533[address] [place], [place] [address]Dr. Liznadro Hemphill ALT [Catalytic activity/Vol] 19 U/L Normal 14-59 [place] Comment on above: Performed By: #### C MP ####[facility] Xkbbuxglil2079[address] [place], [place] [address]Dr. Lizandro Hemphill Anion gap [Moles/Vol] 13.4 mmol/L Normal [place] Comment on above: Performed By: #### C MP ####[facility] Lznxovitii6259[address] [place], [place] [address]Dr. Lizandro Hemphill AST [Catalytic activity/Vol] 30 U/L Normal 15-37 [place] Comment on above: Performed By: #### C MP ####[facility] Murdjcwitq5660[address] [place], [place] [address]Dr. Lizandro Hemphill Bilirubin [Mass/Vol] 0.1 mg/dL Critically low 0.2-1.0 [place] Comment on above: Performed By: #### C MP ####[facility] Ucxynsfjsy987[address] [place], [place] [address]Dr. Lizandro Hemphill Calcium [Mass/Vol] 7.9 mg/dL Critically low 8.5-10.[address] [facility] Comment on above: Performed By: #### C MP ####[facility] Hfqlodiqdu1785[address] [place], [place] [address]Dr. Lizandro Hemphill Chloride [Moles/Vol] 107 mmol/L Normal 98-107 [place] Comment on above: Performed By: #### C MP ####[facility] Nugtijcaqs[address] [place] [address]Dr. Lizandro Joby CO2 [Moles/Vol] 22.7 mmol/L Normal 21.0-32.0 [facility] Comment on above: Performed By: #### C MP ####[facility] Zizvxiskfv0180 [place] [address]Dr. Shanikaannie Hemphill Creatinine [Mass/Vol] 1.37 mg/dL Critically high 0.55-1.02 [place] Comment on above: Performed By: #### C MP ####[facility] Debdvgatev4910[address] [place], [place] [address]Dr. Shanikaannie Joby EGFR-AF [place]IZ[place] 48 mL/min/1.73m2 Critically low >=60 [place] Comment on above: Performed By: #### C MP ####[facility] Zydqdmiokc4768[address] [place], [place] [address]Dr. Lizandro Hemphill EGFR-NON AF [place]IZ[place] 39 mL/min/1.73m2 Critically low >=60 [place] Comment on above: Performed By: #### C MP ####[facility] Voqzseuloo6394[address] [place], [place] [address]Dr. Lizandro Hemphill Globulin (S) [Mass/Vol] 2.9 g/dL Normal [place] Comment on above: Performed By: #### C MP ####[facility] Hblxriaybc5943 [place] [address]Dr. Lizandro Hemphill Glucose [Mass/Vol] 120 mg/dL Critically high 74-106 [facility] Comment on above: Performed By: #### C MP ####[facility] Rztnrtrkpw9657[address] [place], [place] [address]Dr. Lizandro Hemphill Potassium [Moles/Vol] 4.1 mmol/L Normal 3.5-5.1 [place] Comment on above: Performed By: #### C MP ####[facility] Lydxrrdxul866[address] [place], [place] [address]Dr. Lizandro Hemphill Protein [Mass/Vol] 5.2 g/dL Critically low 6.4-8.2 [facility] Comment on above: Performed By: #### C MP ####[facility] Xlilmosmxe0190 [place] [address]Dr. Lizandro Hemphill Sodium [Moles/Vol] 139 mmol/L Normal 136-145 [facility] Comment on above: Performed By: #### C MP ####[facility] Xbcbsinwvj0086[address] [place], [place] [address]Dr. Lizandro Hemphill Urea nitrogen [Mass/Vol] 19.0 mg/dL Critically high 7.0-18.0 [place] Comment on above: Performed By: #### C MP ####[facility] Yiszyvixcc0679[address] [place], [place] [address]Dr. Lizandro Hemphill Urea nitrogen/Creatinin e [Mass ratio] 13.9 mg/mg Normal [place] Comment on above: Performed By: #### C MP ####[facility] Ntqdsebfzh0314[address] [place], [place] [address]Dr. Lizandro Hemphill PROTIMEon 05-05-2022 INR Coag (PPP) [Relative time] 1.07 {INR} Normal [place] Comment on above: Performed By: #### P T ####[facility] Utzburpafv2789[address] [place], [place] [address]Dr. Lizandro Hemphill INR GUIDELINES SEE BELOW Normal [facility] Comment on above: Result Comment: GUEVARA RED INR: 2.0 - 3.0 CONDITIONS NOT LISTED BELOW 2.5 - 3.5 FOR PROSTHETIC HEART VALVE REPLACEMENT 2.5 - 3.5 RECURRENT THROMBOSIS Performed By: #### P T ####[facility] Hfeietuiet[address] [place], [place] [address]Dr. Lizandro Hemphill PT Coag (PPP) [Time] 11.3 s Normal 9.0-11.6 [place] Comment on above: Performed By: #### P T ####[facility] Biibjhmsta[address] [place], [place] [address]DrCiro Hemphill CBC AUTO DIFFon 05-04-2022 BASO # 0.1 103/ul Normal 0.0-0.1 [place] Comment on above: Performed By: #### C BC ####[facility] Rsouhsgdwt7564 [place] [id number]. Lizandro Hemphill Basophils/100 WBC (Bld) 1.2 % Normal 0.2-2.0 [facility] Comment on above: Performed By: #### C BC ####[facility] Luediqueqi[address] [place], [place] [address]Dr. Lizandro Hemphill EO # 0.0 103/ul Normal 0.0-0.7 [facility] Comment on above: Performed By: #### C BC ####[facility] Hzjtpyiepk7509[address] [place], [place] [address]Dr. Lizandro Hemphill Eosinophils/100 WBC (Bld) 0.5 % Critically low 0.9-7.0 [facility] Comment on above: Performed By: #### C BC ####[facility] Geqccmskoi237[address] [place], [place] [address]Dr. Lizandro Hemphill Erythrocyte distribution width (RBC) [Ratio] 18.8 % Critically high 11.0-15.0 [place] Comment on above: Performed By: #### C BC ####[facility] Audvhgiusz827[address] [place], [place] [address]Dr. Lizandro Hemphill Hematocrit (Bld) [Volume fraction] 26.6 % Critically low 36.0-48.0 [facility] Comment on above: Performed By: #### C BC ####[facility] Gjmldtnrdw13[address] [place], [place] [address]Dr. Lizandro Hemphill Hemoglobin (Bld) [Mass/Vol] 8.2 g/dL Critically low 12.0-16.0 [facility] Comment on above: Performed By: #### C BC ####[facility] Evnbhovsjv534[address] [place], [place] [address]Dr. Lizandro Joby IG # 0.02 10e3/ul Normal 0.00-0.03 [facility] Comment on above: Performed By: #### C BC ####[facility] Hybkrrfenp4450[address] [place], [place] [address]Dr. Lizandro Hemphill IG % 0.4 % Normal 0.0-0.5 [place] Comment on above: Performed By: #### C BC ####[facility] Lptcywrqqs9979 [place] [id number]. Lizandro Joby LYMPH # 1.4 103/ul Normal 1.2-3.8 [place] Comment on above: Performed By: #### C BC ####[facility] Lrzzkbhgqb6054 [place] [id number]. Shanikaannie Hemphill Lymphocytes/100 WBC (Bld) 24.5 % Normal 20.5-60.0 [place] Comment on above: Performed By: #### C BC ####[facility] Arjicrbxdl7433 [place] [id number]. Lizandro Hemphill MANUAL DIFF REQ NO Normal [facility] Comment on above: Performed By: #### C BC ####[facility] Kiygywjgyg4392 [place] [id number]. Lizandro Hemphill MCH (RBC) [Entitic mass] 26.4 pg Critically low 26.7-34.0 [place] Comment on above: Performed By: #### C BC ####[facility] Pllvvzexof1129 [place] [id number]. Shanikaannie Hemphill MCHC (RBC) [Mass/Vol] 30.8 g/dL Normal 29.9-35.2 [facility] Comment on above: Performed By: #### C BC ####[facility] Wokuiqunxz0483 [place] [id number] Hemphill MCV (RBC) [Entitic vol] 85.5 fL Normal 81.0-99.0 [place] Comment on above: Performed By: #### C BC ####[facility] Niclqvmpeu0242 [place] [id number] Hemphill MONO # 0.7 103/ul Normal 0.3-0.8 [place] Comment on above: Performed By: #### C BC ####[facility] Mgsxrfyhux5949 [place] [id number]. Lizandro Hemphill Monocytes/100 WBC (Bld) 12.1 % Critically high 1.7-12.0 [place] Comment on above: Performed By: #### C BC ####[facility] Eezdgkznqo4174 [place] [address]Dr. Lizandro Hemphill NEUT # 3.5 103/ul Normal 1.4-6.5 [place] Comment on above: Performed By: #### C BC ####[facility] Wobpskyshm1846 [place] [id number]. Lizandro Hemphill Neutrophils/100 WBC (Bld) 61.3 % Normal 43.0-75.0 [place] Comment on above: Performed By: #### C BC ####[facility] Ziccrgnrzj8088 [place] [address]Dr. Lizandro Hemphill Platelet mean volume (Bld) [Entitic vol] 10.8 fL Normal 9.5-13.5 [place] Comment on above: Performed By: #### C BC ####[facility] Mufumnlhau6165 [place] [address]Dr. Lizandro Hemphill PLT 309 103/ul Normal 150-450 [place] Comment on above: Performed By: #### C BC ####[facility] Sovvjohbfi5726 [place] [address]Dr. Lizandro Hemphill RBC 3.11 106/ul Critically low 4.20-5.40 [facility] Comment on above: Performed By: #### C BC ####[facility] Vpzrnyokxn3111 [place] [address]Dr. Lizandro Hemphill WBC 5.6 103/ul Normal 4.0-11.0 [facility] Comment on above: Performed By: #### C BC ####[facility] Qrhwrtxhmy2534 [place] [id number]. Lizandro Hemphill CT ABD/PELVIS WO CONon 05-04 CT ABD/PELVIS WO CON Normal [facility] PROF 14(COMP METB)on 023 Albumin [Mass/Vol] 2.7 g/dL Critically low 3.4-5.0 [facility] Comment on above: Performed By: #### C MP ####[facility] Zjwcoqockk5128 [place] [address]Dr. Lizandro Hemphill Albumin/Globulin [Mass ratio] 0.9 {ratio} Normal [place] Comment on above: Performed By: #### C MP ####[facility] Wtwtgcayti[address] [place], [place] [address]Dr. Lizandro Hemphill ALP [Catalytic activity/Vol] 122 U/L Critically high 46-116 [place] Comment on above: Performed By: #### C MP ####[facility] Zbzfcmvcor3599[address] [place], [place] [address]Dr. Lizandro Hemphill ALT [Catalytic activity/Vol] 23 U/L Normal 14-59 [place] Comment on above: Performed By: #### C MP ####[facility] Hktpedklcd1770[address] [place], [place] [address]Dr. Lizandro Hemphill Anion gap [Moles/Vol] 11.9 mmol/L Normal [place] Comment on above: Performed By: #### C MP ####[facility] Irnfchqast3515[address] [place], [place] [address]Dr. Lizandro Hemphill AST [Catalytic activity/Vol] 26 U/L Normal 15-37 [facility] Comment on above: Performed By: #### C MP ####[facility] Smwupipczt6[address] [place], [place] [address]Dr. Lizandro Hemphill Bilirubin [Mass/Vol] 0.3 mg/dL Normal 0.2-1.0 [place] Comment on above: Performed By: #### C MP ####[facility] Dzszwryrby5404[address] [place], [place] [address]Dr. Lizandro Hemphill Calcium [Mass/Vol] 8.4 mg/dL Critically low 8.5-10.1 [facility] Comment on above: Performed By: #### C MP ####[facility] Gxbtkglhca5260[address] [place], [place] [address]Dr. Lizandro Hemphill Chloride [Moles/Vol] 106 mmol/L Normal 98-107 [facility] Comment on above: Performed By: #### C MP ####[facility] Vnkjqupfhq450[address] [place], [place] [address]Dr. Lizandro Hemphill CO2 [Moles/Vol] 26.2 mmol/L Normal 21.0-32.0 [facility] Comment on above: Performed By: #### C MP ####[facility] Hcxdkijeyp8475 [place] [address]Dr. Lizandro Joby Creatinine [Mass/Vol] 1.43 mg/dL Critically high 0.55-1.02 [place] Comment on above: Performed By: #### C MP ####[facility] Filqqbequz6354 [place] [address]Dr. Lizandro Hemphill EGFR-AF [place] 45 mL/min/1.73m2 Critically low >=60 [place] Comment on above: Performed By: #### C MP ####[facility] Sxpipgibje00[address] [place], [place] [address]Dr. Lizandro Hemphill EGFR-NON AF [place]IZ[place] 37 mL/min/1.73m2 Critically low >=60 [place] Comment on above: Performed By: #### C MP ####[facility] Zvedufdfuy[address] [place], [place] [address]Dr. Lizandro Hemphill Globulin (S) [Mass/Vol] 2.9 g/dL Normal [place] Comment on above: Performed By: #### C MP ####[facility] Vlyhtrworb[address] [place], [place] [address]Dr. Lizandro Hemphill Glucose [Mass/Vol] 101 mg/dL Normal 74-106 [facility] Comment on above: Performed By: #### C MP ####[facility] Smucooximo[address] [place], [place] [address]Dr. Lizandro Hemphill Protein [Mass/Vol] 5.6 g/dL Critically low 6.4-8.[address] [facility] Comment on above: Performed By: #### C MP ####[facility] Zporzlzuwg8[address] [place], [place] [address]Dr. Lizandro Hemphill Sodium [Moles/Vol] 140 mmol/L Normal 136-145 [facility] Comment on above: Performed By: #### C MP ####[facility] Uemaolodno[address] [place], [place] [id number]. Lizandro Hemphill Urea nitrogen [Mass/Vol] 14.0 mg/dL Normal 7.0-18.0 [place] Comment on above: Performed By: #### C MP ####[facility] Olbkj[address]obi[address] [place], [place] [address]Dr. Lizandro Hemphill Urea nitrogen/Creatinin e [Mass ratio] 9.8 mg/mg Normal [place] Comment on above: Performed By: #### C MP ####[facility] Jlwrdnwujr[address] [place], [place] [address]Dr. Lizandro Hemphill PROTIMEon 05-04-2022 INR Coag (PPP) [Relative time] 1.01 {INR} Normal [place] Comment on above: Performed By: #### P T ####[facility] Inykjjhayq[address] [place], [place] [address]DrCiro Hemphill INR GUIDELINES SEE BELOW Normal [facility] Comment on above: Result Comment: GUEVARA RED INR: 2.0 - 3.0 CONDITIONS NOT LISTED BELOW 2.5 - 3.5 FOR PROSTHETIC HEART VALVE REPLACEMENT 2.5 - 3.5 RECURRENT THROMBOSIS Performed By: #### P T ####[facility] Foclnmisqs[address] [place], [place] [address]Dr. Lizandro Hemphill PT Coag (PPP) [Time] 10.7 s Normal 9.0-11.6 [place] Comment on above: Performed By: #### P T ####[facility] Seiachhlis[address] [place], [place] [address]Dr. Lizandro Hemphill AMMONIAon 05-03-2022 Ammonia (P) [Moles/Vol] 27 umol/L Normal 11-32 [facility] Comment on above: Performed By: #### A MM ####[facility] Mvjibwwqla[address] [place], [place] [address]Dr. Lizandro Hemphill AMYLASEon 05-03-2022 Amylase [Catalytic activity/Vol] 68 U/L Normal 25-115 [place] Comment on above: Performed By: #### M G, CMP, ALICIA, LIPA ####[facility] Dnmnukzwij4[address] [place], [place] [address]Dr. Lizandro Hemphill CBC AUTO DIFFon 05-03-2022 BASO # 0.1 103/ul Normal 0.0-0.1 [facility] Comment on above: Performed By: #### C BC ####[facility] Pobffitruf[address] [place] [address]Dr. Lizandro Hemphill Basophils/100 WBC (Bld) 1.1 % Normal 0.2-2.0 [facility] Comment on above: Performed By: #### C BC ####[facility] Jzqmhmseqj3043 [place] [address]Dr. Lizandro Hemphill EO # 0.0 103/ul Normal 0.0-0.7 [facility] Comment on above: Performed By: #### C BC ####[facility] Ifouksozjj[address] [place], [place] [address]Dr. Lziandro Hemphill Eosinophils/100 WBC (Bld) 0.4 % Critically low 0.9-7.0 [facility] Comment on above: Performed By: #### C BC ####[facility] Mmbghyglio[address] [place], [place] [address]Dr. Lizandro Hemphill Erythrocyte distribution width (RBC) [Ratio] 18.7 % Critically high 11.0-15.0 [facility] Comment on above: Performed By: #### C BC ####[facility] Amebuuuker[address] [place] [address]Dr. Lizandro Hemphill Hematocrit (Bld) [Volume fraction] 31.0 % Critically low 36.0-48.0 [facility] Comment on above: Performed By: #### C BC ####[facility] Zvtmahzync17[address] [place], [place] [address]Dr. Lizandro Hemphill Hemoglobin (Bld) [Mass/Vol] 9.4 g/dL Critically low 12.0-16.0 [facility] Comment on above: Performed By: #### C BC ####[facility] Qlybhzyfir66[address] [place] [address]Dr. Lizandro Hemphill IG # 0.02 10e3/ul Normal 0.00-0.03 [facility] Comment on above: Performed By: #### C BC ####[facility] Sihkbzoacw27[address] [place] [id number]. Shanikaannie Hemphill IG % 0.3 % Normal 0.0-0.5 [facility] Comment on above: Performed By: #### C BC ####[facility] Xbreruptjz3798 [place] [address]Dr. Lizandro Joby LYMPH # 1.6 103/ul Normal 1.2-3.8 [facility] Comment on above: Performed By: #### C BC ####[facility] Mrdoikvzsv5279 [place] [address]Dr. Shanikaannie Hemphill Lymphocytes/100 WBC (Bld) 21.2 % Normal 20.5-60.0 [facility] Comment on above: Performed By: #### C BC ####[facility] Ykegznhpep20[address] [place] [address]Dr. Shanikaannie Hemphill MANUAL DIFF REQ NO Normal [facility] Comment on above: Performed By: #### C BC ####[facility] Yleniztoxe0595 [place] [address]Dr. Lizandro Hemphill MCH (RBC) [Entitic mass] 26.0 pg Critically low 26.7-34.0 [facility] Comment on above: Performed By: #### C BC ####[facility] Htsxqzkkva[address] [place], [place] [address]Dr. Lizandro Hemphill MCHC (RBC) [Mass/Vol] 30.3 g/dL Normal 29.9-35.2 [facility] Comment on above: Performed By: #### C BC ####[facility] Ugqpvnchzj2389 [place] [address]Dr. Lizandro Joby MCV (RBC) [Entitic vol] 85.9 fL Normal 81.0-99.0 [facility] Comment on above: Performed By: #### C BC ####[facility] Rbbhuwowka[address] [place], [place] [address]Dr. Lizandro Hemphill MONO # 0.7 103/ul Normal 0.3-0.8 [facility] Comment on above: Performed By: #### C BC ####[facility] H[address]fe[address] [place] [id number]. Lizandro Hemphill Monocytes/100 WBC (Bld) 9.5 % Normal 1.7-12.0 [facility] Comment on above: Performed By: #### C BC ####[facility] Ajemkxlqcz3592 [place] [id number]. Lizandro Hemphill NEUT # 5.1 103/ul Normal 1.4-6.5 [facility] Comment on above: Performed By: #### C BC ####[facility] Jmrebtqglh4[address] [place] [address]Dr. Lizandro Hemphill Neutrophils/100 WBC (Bld) 67.5 % Normal 43.0-75.0 [facility] Comment on above: Performed By: #### C BC ####[facility] Iuypenpbhf2506 [place] [address]Dr. Lizandro Hemphill Platelet mean volume (Bld) [Entitic vol] 10.1 fL Normal 9.5-13.5 [facility] Comment on above: Performed By: #### C BC ####[facility] Wnkqdvokac[address] [place], [place] [address]Dr. Lizandro Hemphill PLT 404 103/ul Normal 150-450 [facility] Comment on above: Performed By: #### C BC ####[facility] Ioqqshtswv[address] [place], [place] [address]Dr. Lizandro Hemphill RBC 3.61 106/ul Critically low 4.20-5.[address] [facility] Comment on above: Performed By: #### C BC ####[facility] Hhamwwkxnp3256 [place] [id number]. Lizandro Hemphill WBC 7.6 103/ul Normal 4.0-11.0 [facility] Comment on above: Performed By: #### C BC ####[facility] Ihwfiazwzx8641 [place] [id number]. Lizandro Hemphill CULTURE BLOODon 05-03-2022 Microscopic examination of blood, culture Culture Observations: NO GROWTH AT 5 DAYS. Normal [facility] Comment on above: Performed By: #### B LDCX2 ####[facility] Rgloepxaqq[address] [place] [address]Pv. Lizandro Hemphill Microscopic examination of blood, culture Culture Observations: NO GROWTH AT 5 DAYS. Normal [facility] Comment on above: Performed By: #### B LDCX1 ####[facility] Cfjfqzgjmt9312 [place] [id number]. Lizandro Hemphill CULTURE URINEon 05-03-2022 CULTURE URINE Culture Observations : NO GROWTH. Normal [facility] Comment on above: Performed By: #### U RCX ####[facility] Yidgzfuvmm[address] [place] [address]Dr. Lizandro Hemphill Covid-19 PCR (CVDTBH)on SARS-CoV-2 (COVID-19) RNA VERITO+probe Ql (Unsp spec) Not detected Normal NOT DETECTED [facility] Comment on above: Result Comment: When [...] for this test is supported by the [place] of Health and Human Service's declaration that [...] be used). Performed By: #### C VDTBH ####[facility] Jxpbbdujli3903 [place] [address]Dr. Lizandro Hemphill LACTATE/LACTIC ACIDon 2022 Lactate [Moles/Vol] 0.9 mmol/L Normal 0.4-1.9 [place] Comment on above: Performed By: #### L ACT ####[facility] Wqqhgdckux[address] [place], [place] [address]Dr. Lizandro Hemphill LIPASEon 05-03-2022 Lipase [Catalytic activity/Vol] 105.0 U/L Normal 73.0-393.0 [place] Comment on above: Performed By: #### M G, CMP, ALICIA, LIPA ####[facility] Tezmfxmxgq5[address] [place] [address]Dr. Lizandro Hemphill MAGNESIUMon 05-03-2022 Magnesium [Mass/Vol] 1.8 mg/dL Normal 1.8-2.4 [place] Comment on above: Performed By: #### M G, CMP, ALICIA, LIPA ####[facility] Yvsvevifub3646 [place] [address]Dr. Lizandro Hemphill PROF 14(COMP METB)on 023 Albumin [Mass/Vol] 3.4 g/dL Normal 3.4-5.0 [facility] Comment on above: Performed By: #### M G, CMP, ALICIA, LIPA ####[facility] Rvjvgbtkuf34[address] [place] [address]Dr. Lizandro Hemphill Albumin/Globulin [Mass ratio] 1.0 {ratio} Normal [place] Comment on above: Performed By: #### M G, CMP, ALICIA, LIPA ####[facility] Jijvooiscr[address] [place], [place] [address]Dr. Lizandro Hemphill ALP [Catalytic activity/Vol] 154 U/L Critically high 46-116 [facility] Comment on above: Performed By: #### M G, CMP, ALICIA, LIPA ####[facility] Cmpygbsjkr1897 [place] [address]Dr. Lizandro Hemphill ALT [Catalytic activity/Vol] 25 U/L Normal 14-59 [facility] Comment on above: Performed By: #### M G, CMP, ALICIA, LIPA ####[facility] Frepsiaqid6375 [place] [address]Dr. Lizandro Hemphill Anion gap [Moles/Vol] 13.2 mmol/L Normal [place] Comment on above: Performed By: #### M G, CMP, ALICIA, LIPA ####[facility] Xylopmrwbj6179 [place] [address]Dr. Lizandro Hemphill AST [Catalytic activity/Vol] 28 U/L Normal 15-37 [facility] Comment on above: Performed By: #### M G, CMP, ALICIA, LIPA ####[facility] Sabviohpdl5[address] [place] [address]Dr. Lizandro Hemphill Bilirubin [Mass/Vol] 0.4 mg/dL Normal 0.2-1.0 [place] Comment on above: Performed By: #### M G, CMP, ALICIA, LIPA ####[facility] Dnfjdosfiw8561 [place] [address]Dr. Lizandro Hemphill Calcium [Mass/Vol] 9.0 mg/dL Normal 8.5-10.1 [facility] Comment on above: Performed By: #### M G, CMP, ALICIA, LIPA ####[facility] Mhvxgfnguw0438 [place] [address]Dr. Lizandro Hemphill Chloride [Moles/Vol] 104 mmol/L Normal 98-107 [facility] Comment on above: Performed By: #### M G, CMP, ALICIA, LIPA ####[facility] Vgicgdizfo4770 [place] [address]Dr. Lizandro Hemphill CO2 [Moles/Vol] 26.3 mmol/L Normal 21.0-32.0 [facility] Comment on above: Performed By: #### M G, CMP, ALICIA, LIPA ####[facility] Vcjnrvwlph8626 [place] [address]Dr. Lizandro Hemphill Creatinine [Mass/Vol] 0.73 mg/dL Normal 0.55-1.02 [facility] Comment on above: Performed By: #### M G, CMP, ALICIA, LIPA ####[facility] Ksdnbsehbc3217 [place] [address]Dr. Lizandro Hemphill EGFR-AF CITIZEN OF [place] >60 Normal >=60 [facility] Comment on above: Performed By: #### M G, CMP, ALICIA, LIPA ####[facility] Sumnwgkdwq5506 [place] [address]Dr. Lizandro Hemphill EGFR-NON AF CITIZEN OF [place] >60 Normal >=60 [facility] Comment on above: Performed By: #### M G, CMP, ALICIA, LIPA ####[facility] Oobcanfjty1368 [place] [address]Dr. Lizandro Hemphill Globulin (S) [Mass/Vol] 3.5 g/dL Normal [place] Comment on above: Performed By: #### M G, CMP, ALICIA, LIPA ####[facility] Crnpyomaii0465 [place] [address]Dr. Shanikalan Hemphill Glucose [Mass/Vol] 87 mg/dL Normal 74-106 [facility] Comment on above: Performed By: #### M G, CMP, ALICIA, LIPA ####[facility] Okrfviomgs7028 [place] [address]Dr. Lizandro Hemphill Potassium [Moles/Vol] 3.5 mmol/L Normal 3.5-5.1 [facility] Comment on above: Performed By: #### M G, CMP, ALICIA, LIPA ####[facility] Ypfynnmwph2863 [place] [address]Dr. Shanikalan Hemphill Protein [Mass/Vol] 6.9 g/dL Normal 6.4-8.2 [facility] Comment on above: Performed By: #### M G, CMP, ALICIA, LIPA ####[facility] Kpmuykibbd5838 [place] [address]Dr. Shanikalan Hemphill Sodium [Moles/Vol] 140 mmol/L Normal 136-145 [facility] Comment on above: Performed By: #### M G, CMP, ALICIA, LIPA ####[facility] Qicztcumif3660 [place] [address]Dr. Shanikalan Hemphill Urea nitrogen [Mass/Vol] 12.0 mg/dL Normal 7.0-18.0 [facility] Comment on above: Performed By: #### M G, CMP, ALICIA, LIPA ####[facility] Apzavjftqx6601 [place] [address]Dr. Shanikalan Hemphill Urea nitrogen/Creatinin e [Mass ratio] 16.4 mg/mg Normal [facility] Comment on above: Performed By: #### M G, CMP, ALICIA, LIPA ####[facility] Eveywokksy[address] [place] [address]Dr. Lizandro Hemphill PROTIMEon 05-03-2022 INR Coag (PPP) [Relative time] 0.97 {INR} Normal [facility] Comment on above: Performed By: #### P TT, PT ####[facility] Wfgmhxgtur[address] [place], [place] [address]Dr. Lizandro Hemphill INR GUIDELINES SEE BELOW Normal [facility] Comment on above: Result Comment: GUEVARA RED INR: 2.0 - 3.0 CONDITIONS NOT LISTED BELOW 2.5 - 3.5 FOR PROSTHETIC HEART VALVE REPLACEMENT 2.5 - 3.5 RECURRENT THROMBOSIS Performed By: #### P TT, PT ####[facility] Ohfabgxwfe[address] [place], [place] [address]Dr. Lizandro Hemphill PT Coag (PPP) [Time] 10.3 s Normal 9.0-11.6 [facility] Comment on above: Performed By: #### P TT, PT ####[facility] Kfkpbgtais[address] [place], [place] [address]Dr. Lizandro Hemphill PTTon 05-03-2022 aPTT Coag (Bld) [Time] 27.1 s Normal 22.3-36.2 [facility] Comment on above: Performed By: #### P TT, PT ####[facility] Twwrwuzlym[address] [place], [place] [address]Dr. Lizandro Hemphill UA RANDOM W/MICROSCOPICon BACTERIA NONE SEEN Normal NONE SEEN [facility] Comment on above: Performed By: #### U AMIC ####[facility] Vvzhhmdnuo99[address] [place], [place] [address]Dr. Lizandro Hemphill Bilirubin Ql (U) Negative Normal NEGATIVE [facility] Comment on above: Performed By: #### U AMIC ####[facility] Qlolijgljh77[address] [place], [place] [address]Dr. Lizandro Hemphill CAST NONE SEEN Normal NONE SEEN [facility] Comment on above: Performed By: #### U AMIC ####[facility] Prafbytpiw5[address] [place], [place] [address]Dr. Lizandro Hemphill Clarity (U) CLEAR Normal CLEAR [facility] Comment on above: Performed By: #### U AMIC ####[facility] Mhegndedkl[address] [place], [place] [address]Dr. Lizandro Hemphill Color (U) LT. YELLOW Normal YELLOW [facility] Comment on above: Performed By: #### U AMIC ####[facility] Utgxwxlhrh9611 [place] [address]Dr. Lizandro Hemphill Crystals LM Nom (Urine sed) NONE SEEN Normal NONE SEEN [facility] Comment on above: Performed By: #### U AMIC ####[facility] Sjeoyrlwym[address] [place], [place] [address]Dr. Lizandro Hemphill Epithelial cells LM Ql (Urine sed) NONE SEEN Normal NONE SEEN /RARE [facility] Comment on above: Performed By: #### U AMIC ####[facility] Hwufzltubn[address] [place], [place] [address]Dr. Lizandro Hemphill Glucose Ql (U) Negative Normal NEGATIVE [facility] Comment on above: Performed By: #### U AMIC ####[facility] Xffqnpgvzr27[address] [place], [place] [address]Dr. Lizandro Hemphill Hemoglobin Ql (U) Negative Normal NEGATIVE [facility] Comment on above: Performed By: #### U AMIC ####[facility] Mozlrcnpdf[address] [place], [place] [address]Dr. Lizandro Hemphill Ketones Ql (U) 15 mg/dl Abnormal NEGATIVE [facility] Comment on above: Performed By: #### U AMIC ####[facility] Evnlbjspdj8[address] [place], [place] [address]Dr. Lizandro Hemphill LEUKOCYTES Negative Normal NEGATIVE [facility] Comment on above: Performed By: #### U AMIC ####[facility] Eibmqbqcbs8[address] [place], [place] [address]Dr. Lizandro Hemphill MUCOUS NONE SEEN Normal NONE SEEN [place] Comment on above: Performed By: #### U AMIC ####[facility] Jrvajvrwdm079[address] [place], [place] [address]Dr. Lizandro Hemphill Nitrite Ql (U) Negative Normal NEGATIVE [facility] Comment on above: Performed By: #### U AMIC ####[facility] Ylqvsnvnee5911 [place] [address]Dr. Lizandro Hemphill pH (U) 7.0 [pH] Normal 5-9 [place] Comment on above: Performed By: #### U AMIC ####[facility] Qngqytccwa9911 [place] [address]Dr. Lizandro Hemphill RBC 0-2 Normal 0-2 [place] Comment on above: Performed By: #### U AMIC ####[facility] Fqncdorszt1718 [place] [address]Dr. Lizandro Hemphill SPEC GRAVITY 1.010 Normal 1.005-<=1.025 [facility] Comment on above: Performed By: #### U AMIC ####[facility] Fjtocwswyx90[address] [place], [place] [address]Dr. Lizandro Hemphill UA PROTEIN Negative Normal NEGATIVE/ TRACE [facility] Comment on above: Performed By: #### U AMIC ####[facility] Ceqtonxijm[address] [place], [place] [address]Dr. Lizandro Hemphill Urobilinogen Qn (U) 0.2 {Cassy'U}/dL Normal 0.2 - 1.0 [place] Comment on above: Performed By: #### U AMIC ####[facility] Ggiepcqjzt22[address] [place], [place] [address]Dr. Lizandro Hemphill WBC NONE SEEN Normal NONE SEEN [facility] Comment on above: Performed By: #### U AMIC ####[facility] Amxhbbskru4947[address] [place], [place] [address]Dr. Lizandro Hemphill XR ABD FLAT UP_PA Allen 05-03 XR ABD FLAT UP_PA CH Normal [facility] CBC AUTO DIFFon 04-13-2022 BASO # 0.1 103/ul Normal 0.0-0.1 [facility] Comment on above: Performed By: #### C BC ####[facility] Rmwbvpgbts[address] [place], [place] [address]Dr. Lizandro Hemphill Basophils/100 WBC (Bld) 0.7 % Normal 0.2-2.0 [facility] Comment on above: Performed By: #### C BC ####[facility] Fayaihyxfs20[address] [place], [place] [address]Dr. Lizandro Hemphill EO # 0.0 103/ul Normal 0.0-0.7 [facility] Comment on above: Performed By: #### C BC ####[facility] Pogiuwllhz15[address] [place], [place] [address]Dr. Lizandro Hemphill Eosinophils/100 WBC (Bld) 0.3 % Critically low 0.9-7.0 [facility] Comment on above: Performed By: #### C BC ####[facility] Sbfaupbxjz7147[address] [place], [place] [address]Dr. Lizandro Hemphill Erythrocyte distribution width (RBC) [Ratio] 18.2 % Critically high 11.0-15.0 [facility] Comment on above: Performed By: #### C BC ####[facility] Hignoywlhc50[address] [place], [place] [address]Dr. Lizandro Hemphill Hematocrit (Bld) [Volume fraction] 32.1 % Critically low 36.0-48.0 [place] Comment on above: Performed By: #### C BC ####[facility] Ujiugewszw[address] [place], [place] [address]Dr. Lizandro Hemphill Hemoglobin (Bld) [Mass/Vol] 10.2 g/dL Critically low 12.0-16.0 [facility] Comment on above: Performed By: #### C BC ####[facility] Dvbhtjnkvv[address] [place], [place] [address]Dr. Lizandro Hemphill IG # 0.03 10e3/ul Normal 0.00-0.03 [facility] Comment on above: Performed By: #### C BC ####[facility] Laenezxvds48[address] [place], [place] [address]DrCiro Hemphill IG % 0.3 % Normal 0.0-0.5 [facility] Comment on above: Performed By: #### C BC ####[facility] Rdkcqqcmpu39[address] [place], [place] [address]Dr. Lizandro Hemphill LYMPH # 1.2 103/ul Normal 1.2-3.8 [facility] Comment on above: Performed By: #### C BC ####[facility] Qlhhxitrrw5560 [place] [address]DrCiro Shanikaannie Hemphill Lymphocytes/100 WBC (Bld) 10.4 % Critically low 20.5-60.0 [facility] Comment on above: Performed By: #### C BC ####[facility] Luethbqrrj1623 [place] [address]DrCiro Hemphill MANUAL DIFF REQ NO Normal [facility] Comment on above: Performed By: #### C BC ####[facility] Jzlotfyzdh8255 [place] [address]DrCiro Hemphill MCH (RBC) [Entitic mass] 26.4 pg Critically low 26.7-34.0 [facility] Comment on above: Performed By: #### C BC ####[facility] Efuobjmjng9940 [place] [address]DrCiro Hemphill MCHC (RBC) [Mass/Vol] 31.8 g/dL Normal 29.9-35.2 [facility] Comment on above: Performed By: #### C BC ####[facility] [address]gbsjmi[address] [place], [place] [address]DrCiro Hemphill MCV (RBC) [Entitic vol] 83.2 fL Normal 81.0-99.0 [facility] Comment on above: Performed By: #### C BC ####[facility] Cnnhxcwpjq5927 [place] [address]DrCiro Hemphill MONO # 1.0 103/ul Critically high 0.3-0.[address] [facility] Comment on above: Performed By: #### C BC ####[facility] Htnvghiigv2783 [place] [address]DrCiro Hemphill Monocytes/100 WBC (Bld) 9.0 % Normal 1.7-12.0 [facility] Comment on above: Performed By: #### C BC ####[facility] Rlrgbqxflr[address] [place], [place] [address]Dr. Lizandro Hemphill NEUT # 9.0 103/ul Critically high 1.4-6.[address] [facility] Comment on above: Performed By: #### C BC ####[facility] Fnomvepnrc8610 [place] [address]Dr. Lizandro Hemphill Neutrophils/100 WBC (Bld) 79.3 % Critically high 43.0-75.0 [facility] Comment on above: Performed By: #### C BC ####[facility] Qhxxkbiyqo8389 [place] [address]Dr. Lizandro Hemphill Platelet mean volume (Bld) [Entitic vol] 10.8 fL Normal 9.5-13.5 [facility] Comment on above: Performed By: #### C BC ####[facility] Dpxxvrcjfj7460 [place] [address]Dr. Lizandro Hemphill PLT 364 103/ul Normal 150-450 [facility] Comment on above: Performed By: #### C BC ####[facility] Fheopchnoq2270 [place] [address]Dr. Lizandro Hemphill RBC 3.86 106/ul Critically low 4.20-5.[address] [facility] Comment on above: Performed By: #### C BC ####[facility] Gmfpiuseop8506 [place] [address]Dr. Lizandro Hemphill WBC 11.4 103/ul Critically high 4.0-11.0 [facility] Comment on above: Performed By: #### C BC ####[facility] Oyidrlnsfo39[address] [place] [address]Dr[address] CT ABD/PELVIS WO CONon 04-13 CT ABD/PELVIS WO CON Normal [facility] PROF CHEM 8 (BAS METB)on Anion gap [Moles/Vol] 12.4 mmol/L Normal [facility] Comment on above: Performed By: #### B MP ####[facility] Euwdiafxnl1997 [place] [address]Dr. Lizandro Hemphill Calcium [Mass/Vol] 9.1 mg/dL Normal 8.5-10.1 [facility] Comment on above: Performed By: #### B MP ####[facility] Ipkpmpxibc7175 [place] [address]Dr. Lizandro Hemphill Chloride [Moles/Vol] 103 mmol/L Normal 98-107 [place] Comment on above: Performed By: #### B MP ####[facility] Axhyhhxhgx7712 [place] [address]Dr. Lizandro Joby CO2 [Moles/Vol] 28.1 mmol/L Normal 21.0-32.0 [facility] Comment on above: Performed By: #### B MP ####[facility] Kdyhapzqcq8783 [place] [address]Dr. Lizandro Hemphill Creatinine [Mass/Vol] 1.08 mg/dL Critically high 0.55-1.02 [place] Comment on above: Performed By: #### B MP ####[facility] Henhbojhsa8351 [place] [address]Dr. Shanikaannie Joby EGFR-AF CITIZEN OF [place] >60 Normal >=60 [facility] Comment on above: Performed By: #### B MP ####[facility] Jsddtsaljn[address] [place], [place] [address]Dr. Shanikaannie Joby EGFR-NON AF CITIZEN [place] 52 mL/min/1.73m2 Critically low >=60 [place] Comment on above: Performed By: #### B MP ####[facility] Vxfnxwvozh9[address] [place] [address]Dr. Lizandro Hemphill Glucose [Mass/Vol] 120 mg/dL Critically high 74-106 [facility] Comment on above: Performed By: #### B MP ####[facility] Lqsxthgwuu19[address] [place] [address]Dr. Lizandro Hemphill Potassium [Moles/Vol] 3.5 mmol/L Normal 3.5-5.1 [facility] Comment on above: Performed By: #### B MP ####[facility] Gearntekkw8070 [place] [address]Dr. Lizandro Hemphill Sodium [Moles/Vol] 140 mmol/L Normal 136-145 [facility] Comment on above: Performed By: #### B MP ####[facility] Umwzladdpi24[address] [place], [place] [address]Dr. Lizandro Hemphill Urea nitrogen [Mass/Vol] 24.0 mg/dL Critically high 7.0-18.0 [facility] Comment on above: Performed By: #### B MP ####[facility] Zovopbqbey[address] [place], [place] [address]Dr. Lizandro Hemphill Urea nitrogen/Creatinin e [Mass ratio] 22.2 mg/mg Normal [facility] Comment on above: Performed By: #### B MP ####[facility] Bgplfutefa[address] [place], [place] [address]Dr. Lizandro Hemphill XR ANKLE RT MIN 3 VIEWSon XR ANKLE RT MIN 3 VIEWS Normal [facility] PRBC LEUKOREDUCEDon 03-23-20 PRBC LEUKOREDUCED Normal [facility] Comment on above: Performed By: #### P RBC ####[facility] Ipzrmqzsja[address] [place], [place] [address]Dr. Lizandro Hemphill CBC AUTO DIFFon 03-07-2022 BASO # 0.1 103/ul Normal 0.0-0.1 [facility] Comment on above: Performed By: #### C BC ####[facility] Hhhsibspep17[address] [place], [place] [address]Dr. Lizandro Hemphill Basophils/100 WBC (Bld) 1.1 % Normal 0.2-2.0 [facility] Comment on above: Performed By: #### C BC ####[facility] Uxxubuvlqf80[address] [place], [place] [address]Dr. Lizandro Hemphill EO # 0.1 103/ul Normal 0.0-0.7 [facility] Comment on above: Performed By: #### C BC ####[facility] Cfjeosxdpx16[address] [place], [place] [address]Dr. Lizandro Hemphill Eosinophils/100 WBC (Bld) 0.8 % Critically low 0.9-7.0 [facility] Comment on above: Performed By: #### C BC ####[facility] Axdcqkklck7[address] [place], [place] [address]Dr. Lizandro Hemphill Erythrocyte distribution width (RBC) [Ratio] 15.9 % Critically high 11.0-15.0 [place] Comment on above: Performed By: #### C BC ####[facility] Oaofrkyhkr7317 [place] [address]Dr. Lizandro Hemphill Hematocrit (Bld) [Volume fraction] 31.0 % Critically low 36.0-48.0 [place] Comment on above: Performed By: #### C BC ####[facility] Jfrbpbnutf7415 [place] [address]Dr. Shanikaannie Hemphill Hemoglobin (Bld) [Mass/Vol] 10.1 g/dL Critically low 12.0-16.0 [facility] Comment on above: Performed By: #### C BC ####[facility] Ikbgeeennf64[address] [place], [place] [address]Dr. Lizandro Hemphill IG # 0.04 10e3/ul Critically high 0.00-0.03 [facility] Comment on above: Performed By: #### C BC ####[facility] Rfedgadghd[address] [place], [place] [address]Dr. Lizandro Hemphill IG % 0.4 % Normal 0.0-0.5 [place] Comment on above: Performed By: #### C BC ####[facility] Uahsyarevo2[address] [place], [place] [address]Dr. Lizandro Hemphill LYMPH # 1.3 103/ul Normal 1.2-3.8 [facility] Comment on above: Performed By: #### C BC ####[facility] Genwqxwgch4188[address] [place], [place] [address]Dr. Lizandro Hemphill Lymphocytes/100 WBC (Bld) 13.7 % Critically low 20.5-60.0 [facility] Comment on above: Performed By: #### C BC ####[facility] Tozajtxiuz26[address] [place], [place] [address]Dr. Lizandro Hemphill MANUAL DIFF REQ NO Normal The [facility] Comment on above: Performed By: #### C BC ####[facility] Dqmacnowkt1940[address] [place], [place] [address]Dr. Lizandro Hemphill MCH (RBC) [Entitic mass] 28.6 pg Normal 26.7-34.0 [facility] Comment on above: Performed By: #### C BC ####[facility] Aicimohnfj9329 [place] [id number]. Lizandro Hemphill MCHC (RBC) [Mass/Vol] 32.6 g/dL Normal 29.9-35.2 [facility] Comment on above: Performed By: #### C BC ####[facility] Ddwcsnrtee2656 [place] [address]Dr. Lizandro Hemphill MCV (RBC) [Entitic vol] 87.8 fL Normal 81.0-99.0 [facility] Comment on above: Performed By: #### C BC ####[facility] Tlhrpyttgx18[address] [place], [place] [address]DrCiro Lizandro Hemphill MONO # 0.7 103/ul Normal 0.3-0.8 [facility] Comment on above: Performed By: #### C BC ####[facility] Bvsztomngp[address] [place], [place] [address]Dr. Lizandro Hemphill Monocytes/100 WBC (Bld) 7.7 % Normal 1.7-12.0 [facility] Comment on above: Performed By: #### C BC ####[facility] Lyrmspnyaz[address] [place], [place] [address]Dr. Lizandro Hemphill NEUT # 7.2 103/ul Critically high 1.4-6.[address] [facility] Comment on above: Performed By: #### C BC ####[facility] Xnaycggaer[address] [place], [place] [address]DrCiro Lizandro Joby Neutrophils/100 WBC (Bld) 76.3 % Critically high 43.0-75.0 [facility] Comment on above: Performed By: #### C BC ####[facility] Lpjoshtslq8206[address] [place], [place] [address]Dr. Lizandro Hemphill Platelet mean volume (Bld) [Entitic vol] 10.3 fL Normal 9.5-13.5 [facility] Comment on above: Performed By: #### C BC ####[facility] Yelohcaggj2516 [place] [id number]. Lizandro Hemphill PLT 382 103/ul Normal 150-450 [facility] Comment on above: Performed By: #### C BC ####[facility] Abfssvnmoh9650 [place] [id number]. Lizandro Hemphill RBC 3.53 106/ul Critically low 4.20-5.40 [facility] Comment on above: Performed By: #### C BC ####[facility] Lnjrxpvbwv5977 [place] [id number]. Lizandro Hemphill WBC 9.4 103/ul Normal 4.0-11.0 [place] Comment on above: Performed By: #### C BC ####[facility] Ojazforgsg3247 [place] [id number]. Lizandro Hemphill LIVER PROFILEon 03-07-2022 Albumin [Mass/Vol] 2.8 g/dL Critically low 3.4-5.0 [facility] Comment on above: Performed By: #### B MP, LIVER ####[facility] Wxdzuegsgy8854 [place] [id number]. Lizandro Hemphill Albumin/Globulin [Mass ratio] 0.8 {ratio} Normal [place] Comment on above: Performed By: #### B MP, LIVER ####[facility] Buddvhwtur4310 [place] [id number]. Lizandro Hemphill ALP [Catalytic activity/Vol] 108 U/L Normal 46-116 [facility] Comment on above: Performed By: #### B MP, LIVER ####[facility] Zlmqfqyltt7030 [place] [id number]. Lizandro Hemphill ALT [Catalytic activity/Vol] 36 U/L Normal 14-59 [facility] Comment on above: Performed By: #### B MP, LIVER ####[facility] Rlzbenitaf4374 [place] [id number]. Lizandro Hemphill AST [Catalytic activity/Vol] 29 U/L Normal 15-37 [facility] Comment on above: Performed By: #### B MP, LIVER ####[facility] Bqdkljnuus2490 [place] [address]Dr. Lizandro Hemphill BILI, CONJUGATED 0.1 mg/dL Normal 0.0-0.2 [facility] Comment on above: Performed By: #### B MP, LIVER ####[facility] Cckbeytpnv9521 [place] [address]Dr. Lizandro Hemphill Bilirubin [Mass/Vol] 0.2 mg/dL Normal 0.2-1.0 [facility] Comment on above: Performed By: #### B MP, LIVER ####[facility] Giruuxvili[address] [place], [place] [address]Dr. Lizandro Hemphill Globulin (S) [Mass/Vol] 3.6 g/dL Normal [facility] Comment on above: Performed By: #### B MP, LIVER ####[facility] Tzyahvaiga7[address] [place], [place] [address]Dr. Lizandro Hemphill Protein [Mass/Vol] 6.4 g/dL Normal 6.4-8.2 [facility] Comment on above: Performed By: #### B MP, LIVER ####[facility] Wzixtmtvzp3[address] [place], [place] [address]Dr. Lizandro Hemphill PROF CHEM 8 (BAS METB)on Anion gap [Moles/Vol] 10.2 mmol/L Normal [facility] Comment on above: Performed By: #### B MP, LIVER ####[facility] Dzjxpvlfhh69[address] [place], [place] [address]Dr. Lizandro Hemphill Calcium [Mass/Vol] 8.7 mg/dL Normal 8.5-10.1 [facility] Comment on above: Performed By: #### B MP, LIVER ####[facility] Rsgisgcrhl[address] [place], [place] [address]Dr. Lizandro Hemphill Chloride [Moles/Vol] 104 mmol/L Normal 98-107 [facility] Comment on above: Performed By: #### B MP, LIVER ####[facility] Ykkvcwqxrq1827[address] [place], [place] [address]Dr. Lizandro Hemphill CO2 [Moles/Vol] 27.8 mmol/L Normal 21.0-32.0 [facility] Comment on above: Performed By: #### B MP, LIVER ####[facility] Titmgqivuk6690 [place] [id number]. Lizandro Hemphill Creatinine [Mass/Vol] 0.72 mg/dL Normal 0.55-1.02 [facility] Comment on above: Performed By: #### B MP, LIVER ####[facility] Mlckvdyxpe6631 [place] [phone]. Lizandro Hemphill EGFR-AF CITIZEN [place] >60 Normal >=60 [facility] Comment on above: Performed By: #### B MP, LIVER ####[facility] Zhbpodmqoi2486 [place] [phone]. Lizandro Hemphill EGFR-NON AF CITIZEN [place] >60 Normal >=60 [facility] Comment on above: Performed By: #### B MP, LIVER ####[facility] Fhohiwcaef2272 [place] [phone]. Lizandro Hemphill Glucose [Mass/Vol] 97 mg/dL Normal 74-106 [facility] Comment on above: Performed By: #### B MP, LIVER ####[facility] Vgznruktfy5784 [place] [phone]. Lizandro Hemphill Potassium [Moles/Vol] 4.0 mmol/L Normal 3.5-5.1 [facility] Comment on above: Performed By: #### B MP, LIVER ####[facility] Onmhhgtiaz2804 [place] [phone]. Lizandro Hemphill Sodium [Moles/Vol] 138 mmol/L Normal 136-145 [facility] Comment on above: Performed By: #### B MP, LIVER ####[facility] Jdglmonxaw6388 [place] [phone]. Lizandro Hemphill Urea nitrogen [Mass/Vol] 13.0 mg/dL Normal 7.0-18.0 [facility] Comment on above: Performed By: #### B MP, LIVER ####[facility] Xeiqkfleay0737 [place] [phone]. Shanikaannie Hemphill Urea nitrogen/Creatinin e [Mass ratio] 18.1 mg/mg Normal [facility] Comment on above: Performed By: #### B MP, LIVER ####[facility] Flfsdxhcab1665 [place] [address]Dr. Lizandro Joby PROTIMEon 03-07-2022 INR Coag (PPP) [Relative time] 0.94 {INR} Normal [facility] Comment on above: Performed By: #### P T ####[facility] Gslzbktkrp[address] [place], [place] [address]Dr. Lizandro Hemphill INR GUIDELINES SEE BELOW Normal [facility] Comment on above: Result Comment: GUEVAR[place] RED INR: 2.0 - 3.0 CONDITIONS NOT LISTED BELOW 2.5 - 3.5 FOR PROSTHETIC HEART VALVE REPLACEMENT 2.5 - 3.5 RECURRENT THROMBOSIS Performed By: #### P T ####[facility] Anjwputyuw7[address] [place], [place] [address]Dr. Lizandro Hemphill PT Coag (PPP) [Time] 10.2 s Normal 9.0-11.6 [facility] Comment on above: Performed By: #### P T ####[facility] Fxshqnnnyv8[address] [place], [place] [address]Dr. Shanikaannie Hemphill CBC AUTO DIFFon 03-06-2022 BASO # 0.1 103/ul Normal 0.0-0.1 [place] Comment on above: Performed By: #### C BC ####[facility] Utvehakgac[address] [place], [place] [address]Dr. Lizandro Hemphill Basophils/100 WBC (Bld) 0.6 % Normal 0.2-2.0 [facility] Comment on above: Performed By: #### C BC ####[facility] Djjjaeuoge1756[address] [place], [place] [address]Dr. Lizandro Hemphill EO # 0.2 103/ul Normal 0.0-0.7 [facility] Comment on above: Performed By: #### C BC ####[facility] Hbeptsnkiv9[address] [place], [place] [address]Dr. Lizandro Hemphill Eosinophils/100 WBC (Bld) 1.4 % Normal 0.9-7.0 [facility] Comment on above: Performed By: #### C BC ####[facility] Oslwsxykcx7288 [place] [phone]. Lizandro Hemphill Erythrocyte distribution width (RBC) [Ratio] 16.1 % Critically high 11.0-15.0 [place] Comment on above: Performed By: #### C BC ####[facility] Jjyjpbdmcw0424 [place] [address]Dr. Lizandro Hemphill Hematocrit (Bld) [Volume fraction] 28.7 % Critically low 36.0-48.0 [facility] Comment on above: Performed By: #### C BC ####[facility] Guphzyntvp8103 [place] [address]Dr. Lizandro Hemphill Hemoglobin (Bld) [Mass/Vol] 9.3 g/dL Critically low 12.0-16.0 [place] Comment on above: Performed By: #### C BC ####[facility] Xwdxvdtpbt9[address] [place], [place] [address]Dr. Lizandro Hemphill IG # 0.03 10e3/ul Normal 0.00-0.03 [place] Comment on above: Performed By: #### C BC ####[facility] Uqrhtwubye5200 [place] [address]Dr. Lizandro Hemphill IG % 0.3 % Normal 0.0-0.5 [place] Comment on above: Performed By: #### C BC ####[facility] Xddwlsvmnt9825 [place] [address]Dr. Lizandro Hemphill LYMPH # 1.5 103/ul Normal 1.2-3.8 [facility] Comment on above: Performed By: #### C BC ####[facility] Vpddodbnqg9773 [place] [address]Dr. Lizandro Hemphill Lymphocytes/100 WBC (Bld) 13.4 % Critically low 20.5-60.0 [facility] Comment on above: Performed By: #### C BC ####[facility] Ihpyscxwnp3293 [place] [address]Dr. Lizandro Hemphill MANUAL DIFF REQ NO Normal [facility] Comment on above: Performed By: #### C BC ####[facility] Ooldwioflx9677 [place] [phone]. Lizandro Hemphill MCH (RBC) [Entitic mass] 28.5 pg Normal 26.7-34.0 [facility] Comment on above: Performed By: #### C BC ####[facility] Gqeogphgkc4460 [place] [phone]. Lizandro Hemphill MCHC (RBC) [Mass/Vol] 32.4 g/dL Normal 29.9-35.2 [facility] Comment on above: Performed By: #### C BC ####[facility] Uhuluaycpy3344 [place] [phone]. Lizandro Hemphill MCV (RBC) [Entitic vol] 88.0 fL Normal 81.0-99.0 [facility] Comment on above: Performed By: #### C BC ####[facility] Mogqemjnxl44[address] [place], [place] [address]Dr. Lizandro Hemphill MONO # 0.9 103/ul Critically high 0.3-0.[address] [facility] Comment on above: Performed By: #### C BC ####[facility] Aavceiiles2863[address] [place], [place] [address]Dr. Shanikaannie Hemphill Monocytes/100 WBC (Bld) 8.7 % Normal 1.7-12.0 [facility] Comment on above: Performed By: #### C BC ####[facility] Eipyjigzdd0085[address] [place], [place] [address]Dr. Lizandro Hemphill NEUT # 8.2 103/ul Critically high 1.4-6.[address] [facility] Comment on above: Performed By: #### C BC ####[facility] Apswktvdld[address] [place], [place] [address]Dr. Lizandro Hemphill Neutrophils/100 WBC (Bld) 75.6 % Critically high 43.0-75.0 [facility] Comment on above: Performed By: #### C BC ####[facility] Pohyumqkrm[address] [place], [place] [address]Dr. Lizandro Hemphill Platelet mean volume (Bld) [Entitic vol] 10.4 fL Normal 9.5-13.5 [facility] Comment on above: Performed By: #### C BC ####[facility] Wtijdeyptq3025 [place] [phone]. Lizandro Hemphill PLT 351 103/ul Normal 150-450 [place] Comment on above: Performed By: #### C BC ####[facility] Fgcltxzcrd1240 [place], [place] [address]Tk. Lizandro Hemphill RBC 3.26 106/ul Critically low 4.20-5.40 [facility] Comment on above: Performed By: #### C BC ####[facility] Zfsqaaiuei7840 [place] [phone]. Lizandro Hemphill WBC 10.9 103/ul Normal 4.0-11.0 [place] Comment on above: Performed By: #### C BC ####[facility] Xjpcjcfine9251 [place] [address]. [address] Hem[address] CT HIP LT WO CONon CT HIP LT WO CON Normal [facility] LIVER PROFILEon 03-06-2022 Albumin [Mass/Vol] 2.6 g/dL Critically low 3.4-5.0 [facility] Comment on above: Performed By: #### ELSA VERA ####[facility] Ptsnkwbjbs4963[address] [place], [place] [address]Dr. Lizandro Hemphill Albumin/Globulin [Mass ratio] 0.8 {ratio} Normal [facility] Comment on above: Performed By: #### Diana SCHMIDT BMP ####[facility] Wiiilxbuwl5706 [place] [phone]. Lizandro Hemphill ALP [Catalytic activity/Vol] 99 U/L Normal 46-116 [facility] Comment on above: Performed By: #### ELSA VERA ####[facility] Dylqymfgay8466 [place] [address]Dr. Lizandro Hemphill ALT [Catalytic activity/Vol] 36 U/L Normal 14-59 [place] Comment on above: Performed By: #### Diana SCHMIDT BMP ####[facility] Syzjdcpjxx1197 [place] [address]Dr. Lizandro Hemphill AST [Catalytic activity/Vol] 38 U/L Critically high 15-37 [place] Comment on above: Performed By: #### L IVRAUL, BMP ####[facility] Nezscyqihi6740[address] [place], [place] [address]Dr. Lizandro Hemphill BILI, CONJUGATED 0.0 mg/dL Normal 0.0-0.2 [facility] Comment on above: Performed By: #### L IVRAUL, BMP ####[facility] Pdobottrbt2050[address] [place], [place] [address]Dr. Lizandro Hemphill Bilirubin [Mass/Vol] 0.1 mg/dL Critically low 0.2-1.0 [place] Comment on above: Performed By: #### L IVRAUL, BMP ####[facility] Qyxejcmuno1504[address] [place], [place] [address]Dr. Lizandro Hemphill Globulin (S) [Mass/Vol] 3.4 g/dL Normal [place] Comment on above: Performed By: #### L IVRAUL, BMP ####[facility] Sahkpmwsca27[address] [place], [place] [address]Dr. Lizandro Hemphill Protein [Mass/Vol] 6.0 g/dL Critically low 6.4-8.2 [facility] Comment on above: Performed By: #### L IVRAUL, BMP ####[facility] Vxynzofdok7[address] [place], [place] [address]Dr. Lizandro Hemphill PROF CHEM 8 (BAS METB)on Anion gap [Moles/Vol] 11.1 mmol/L Normal [place] Comment on above: Performed By: #### L IVER, BMP ####[facility] Wudadgzgiv[address] [place], [place] [address]Dr. Lizandro Hemphill Calcium [Mass/Vol] 8.4 mg/dL Critically low 8.5-10.1 [facility] Comment on above: Performed By: #### L IVER, BMP ####[facility] Hxbxauyvwt4[address] [place], [place] [address]Dr. Lizandro Hemphill Chloride [Moles/Vol] 105 mmol/L Normal 98-107 [place] Comment on above: Performed By: #### L IVER, BMP ####[facility] Piaaspohji8416 [place] [phone]. Lizandro Hemphill CO2 [Moles/Vol] 26.6 mmol/L Normal 21.0-32.0 [facility] Comment on above: Performed By: #### L IVER, BMP ####[facility] Jvsdkwpmhj8443 [place] [phone]. Lizandro Hemphill Creatinine [Mass/Vol] 0.74 mg/dL Normal 0.55-1.02 [facility] Comment on above: Performed By: #### L IVER, BMP ####[facility] Gbdvdnahip5871 [place] [phone]. Lizandro Hemphill EGFR-AF CITIZ[place] OF [place] >60 Normal >=60 [facility] Comment on above: Performed By: #### L IVER, BMP ####[facility] Zytoddkemi6253 [place] [id number]. Shanikaannie Hemphill EGFR-NON AF CITIZEN OF [place] >60 Normal >=60 [facility] Comment on above: Performed By: #### L IVER, BMP ####[facility] Wqbctqrdzq1991 [place] [phone]. Lizandro Hemphill Glucose [Mass/Vol] 104 mg/dL Normal 74-106 [facility] Comment on above: Performed By: #### L IVER, BMP ####[facility] Cypeeeyvmq5212 [place] [phone]. Lizandro Hemphill Potassium [Moles/Vol] 3.7 mmol/L Normal 3.5-5.1 [facility] Comment on above: Performed By: #### L IVER, BMP ####[facility] Lklmvltbvu2473 [place] [phone]. Shanikaannie Hemphill Sodium [Moles/Vol] 139 mmol/L Normal 136-145 [facility] Comment on above: Performed By: #### L IVER, BMP ####[facility] Aqvnvohujt4433 [place] [address]Dr. Lizandro Hemphill Urea nitrogen [Mass/Vol] 13.0 mg/dL Normal 7.0-18.0 [place] Comment on above: Performed By: #### L ELSA SCHMIDT ####[facility] Cdaeqyxxys6522 [place] [address]Dr. Lizandro Hemphill Urea nitrogen/Creatinin e [Mass ratio] 17.6 mg/mg Normal [facility] Comment on above: Performed By: #### L ROXANA BMP ####[facility] Wjislpxngc9469 [place] [address]Dr. Lizandro Hemphill PROTIMEon 03-06-2022 INR Coag (PPP) [Relative time] {INR} Normal [facility] Comment on above: Performed By: #### P T ####[facility] Xepnckqvba59[address] [place], [place] [address]Dr. Lizandro Hemphill INR GUIDELINES SEE BELOW Normal [facility] Comment on above: Result Comment: GUEVARA RED INR: 2.0 - 3.0 CONDITIONS NOT LISTED BELOW 2.5 - 3.5 FOR PROSTHETIC HEART VALVE REPLACEMENT 2.5 - 3.5 RECURRENT THROMBOSIS Performed By: #### P T ####[facility] Spkfvrezrq[address] [place], [place] [address]Dr. Lizandro Hemphill PT Coag (PPP) [Time] 9.7 s Normal 9.0-11.6 [facility] Comment on above: Performed By: #### P T ####[facility] Pbnruoyomg23[address] [place], [place] [address]Dr. Lizandro Hemphill CBC AUTO DIFFon 03-05-2022 BASO # 0.1 103/ul Normal 0.0-0.1 [facility] Comment on above: Performed By: #### C BC ####[facility] Oxoiygnoaf[address] [place], [place] [address]Dr. Lizandro Hemphill Basophils/100 WBC (Bld) 0.8 % Normal 0.2-2.0 [facility] Comment on above: Performed By: #### C BC ####[facility] Wnrzbaczrc[address] [place], [place] [address]Dr. Lizandro Hemphill EO # 0.1 103/ul Normal 0.0-0.7 [facility] Comment on above: Performed By: #### C BC ####[facility] Rfwpaukynn9291 [place] [id number]. Lizandro Hemphill Eosinophils/100 WBC (Bld) 1.1 % Normal 0.9-7.0 [place] Comment on above: Performed By: #### C BC ####[facility] Bubaepttph9751 [place] [address]Dr. Lizandro Hemphill Erythrocyte distribution width (RBC) [Ratio] 15.8 % Critically high 11.0-15.0 [place] Comment on above: Performed By: #### C BC ####[facility] Qpizrtfvmq7[address] [place], [place] [address]Dr. Lizandro Hemphill Hematocrit (Bld) [Volume fraction] 25.6 % Critically low 36.0-48.0 [place] Comment on above: Performed By: #### C BC ####[facility] Allakvmebs7[address] [place], [place] [address]Dr. Lizandro Hemphill Hemoglobin (Bld) [Mass/Vol] 8.6 g/dL Critically low 12.0-16.0 [place] Comment on above: Performed By: #### C BC ####[facility] Gdzlnmkvsy64[address] [place], [place] [address]Dr. Lizandro Hemphill IG # 0.05 10e3/ul Critically high 0.00-0.03 [facility] Comment on above: Performed By: #### C BC ####[facility] Tccnveyapd[address] [place], [place] [address]Dr. Lizandro Hemphill IG % 0.6 % Critically high 0.0-0.[address] [facility] Comment on above: Performed By: #### C BC ####[facility] Clussjhtlz[address] [place], [place] [address]Dr. Lizandro Hemphill LYMPH # 1.2 103/ul Normal 1.2-3.8 [facility] Comment on above: Performed By: #### C BC ####[facility] Jtokvbtewn5[address] [place], [place] [address]Dr. Lizandro Hemphill Lymphocytes/100 WBC (Bld) 14.4 % Critically low 20.5-60.0 [place] Comment on above: Performed By: #### C BC ####[facility] Wuwtfhwmgs8464 [place] [id number]. Lizandro Hemphill MANUAL DIFF REQ NO Normal [facility] Comment on above: Performed By: #### C BC ####[facility] Ohldflaehv0951 [place] [id number]. Lizandro Hemphill MCH (RBC) [Entitic mass] 29.1 pg Normal 26.7-34.0 [place] Comment on above: Performed By: #### C BC ####[facility] Mghmjtgbwn9828 [place] [id number]. Lizandro Hemphill MCHC (RBC) [Mass/Vol] 33.6 g/dL Normal 29.9-35.2 [facility] Comment on above: Performed By: #### C BC ####[facility] Osafukkdyy[address] [place], [place] [address]Dr. Lizandro Hemphill MCV (RBC) [Entitic vol] 86.5 fL Normal 81.0-99.0 [place] Comment on above: Performed By: #### C BC ####[facility] Bagdcecsiv[address] [place], [place] [address]Dr. Lizandro Hemphill MONO # 0.7 103/ul Normal 0.3-0.8 [place] Comment on above: Performed By: #### C BC ####[facility] Bltgngplsc[address] [place], [place] [address]Dr. Lizandro Hemphill Monocytes/100 WBC (Bld) 8.2 % Normal 1.7-12.0 [facility] Comment on above: Performed By: #### C BC ####[facility] Nqctvtknli3[address] [place], [place] [address]Dr. Lizandro Hemphill NEUT # 6.3 103/ul Normal 1.4-6.5 [facility] Comment on above: Performed By: #### C BC ####[facility] Gjtgsdbioh25[address] [place], [place] [address]Dr. Lizandro Hemphill Neutrophils/100 WBC (Bld) 74.9 % Normal 43.0-75.0 [facility] Comment on above: Performed By: #### C BC ####[facility] Zadtjbhmev4930 [place] [id number]. Lizandro Hemphill Platelet mean volume (Bld) [Entitic vol] 9.8 fL Normal 9.5-13.5 [place] Comment on above: Performed By: #### C BC ####[facility] Yorxhagqyh2663 [place] [id number]. Lizandro Hemphill PLT 331 103/ul Normal 150-450 [place] Comment on above: Performed By: #### C BC ####[facility] Dcyrituzvs3097 [place] [id number]. Lizandro Hemphill RBC 2.96 106/ul Critically low 4.20-5.40 [facility] Comment on above: Performed By: #### C BC ####[facility] Rpvecabjmr7641 [place] [id number]. Shanikaannie Joby WBC 8.5 103/ul Normal 4.0-11.0 [place] Comment on above: Performed By: #### C BC ####[facility] Zvysvnhfxl4688 [place] [id number]. Shanikaannie Hemphill LIVER PROFILEon 03-05-2022 Albumin [Mass/Vol] 2.4 g/dL Critically low 3.4-5.0 [facility] Comment on above: Performed By: #### Diana SCHMIDT BMP ####[facility] Guqpsjqagk9445 [place] [id number]. Lizandro Hemphill Albumin/Globulin [Mass ratio] 0.8 {ratio} Normal [place] Comment on above: Performed By: #### Diana SCHMIDT BMP ####[facility] Ntlgyvlmrt0649 [place] [phone]. Lizandro Hemphill ALP [Catalytic activity/Vol] 88 U/L Normal 46-116 [place] Comment on above: Performed By: #### L ROXANA BMP ####[facility] Cbqnhbnies1478 [place] [id number]. Lizandro Hemphill ALT [Catalytic activity/Vol] 35 U/L Normal 14-59 [place] Comment on above: Performed By: #### L IVER, BMP ####[facility] Ooainlrxeo4623 [place] [address]Dr. Lizandro Hemphill AST [Catalytic activity/Vol] 41 U/L Critically high 15-37 [place] Comment on above: Performed By: #### L IVER, BMP ####[facility] Irspyilgst2340 [place] [address]Dr. Lizandro Hemphill BILI, CONJUGATED 0.1 mg/dL Normal 0.0-0.2 [facility] Comment on above: Performed By: #### L IVRAUL, BMP ####[facility] Hssmbavcle6006 [place] [address]Dr. Lizandro Hemphill Bilirubin [Mass/Vol] 0.1 mg/dL Critically low 0.2-1.0 [place] Comment on above: Performed By: #### L IVRAUL, BMP ####[facility] Hphcbsdlll[address] [place], [place] [address]Dr. Lizandro Hemphill Globulin (S) [Mass/Vol] 3.1 g/dL Normal [place] Comment on above: Performed By: #### L IVRAUL, BMP ####[facility] Itdxkwmksc5[address] [place], [place] [address]Dr. Lizandro Hemphill Protein [Mass/Vol] 5.5 g/dL Critically low 6.4-8.[address] [facility] Comment on above: Performed By: #### L IVRAUL, BMP ####[facility] Nbyyfnnqwl17[address] [place], [place] [address]Dr. Lizandro Hemphill OCC BLD IMMUNOASSAYon 2021 OCCULT BLOOD Positive Abnormal NEGATIVE [place] Comment on above: Performed By: #### O GREGORIO ####[facility] Oilbuhpxxi[address] [place], [place] [address]Dr. Lizandro Hemphill PROF CHEM 8 (BAS METB)on Anion gap [Moles/Vol] 11.2 mmol/L Normal [place] Comment on above: Performed By: #### L IVER, BMP ####[facility] Wnmrcuekcj3425[address] [place], [place] [address]Dr. Lizandro Hemphill Calcium [Mass/Vol] 7.7 mg/dL Critically low 8.5-10.1 Th [facility] Comment on above: Performed By: #### Diana SCHMIDT, BMP ####[facility] Nqhbdjysun5035 [place] [address]Dr. Lizandro Hemphill Chloride [Moles/Vol] 108 mmol/L Critically high 98-107 [place] Comment on above: Performed By: #### Diana SCHMIDT, BMP ####[facility] Xdqhkuvleb2860 [place] [address]Dr. Lizandro Hemphill CO2 [Moles/Vol] 25.4 mmol/L Normal 21.0-32.0 [facility] Comment on above: Performed By: #### Diana SCHMIDT, BMP ####[facility] Ecqolrhnme57[address] [place], [place] [address]Dr. Lizandro Hemphill Creatinine [Mass/Vol] 0.62 mg/dL Normal 0.55-1.02 [place] Comment on above: Performed By: #### Diana SCHMIDT, BMP ####[facility] Wdehwokwgi1043 [place] [address]Dr. Lizandro Hemphill EGFR-AF CITIZ[place] >60 Normal >=60 [facility] Comment on above: Performed By: #### Diana SCHMIDT, BMP ####[facility] Wjsrcevabx17[address] [place], [place] [address]Dr. Lizandro Hemphill EGFR-NON AF CITIZEN OF [place] >60 Normal >=60 [place] Comment on above: Performed By: #### Diana SCHMIDT, BMP ####[facility] Siylzuorqh8458 [place] [address]Dr. Lizandro Hemphill Glucose [Mass/Vol] 115 mg/dL Critically high 74-106 [facility] Comment on above: Performed By: #### Diana SCHMIDT, BMP ####[facility] Nmxjgcewgy5592 [place] [address]Dr. Lizandro Hemphill Potassium [Moles/Vol] 3.6 mmol/L Normal 3.5-5.1 [place] Comment on above: Performed By: #### Diana SCHMIDT, BMP ####[facility] Eytpkwzvyn7551 [place] [address]Dr. Lizandro Hemphill Sodium [Moles/Vol] 141 mmol/L Normal 136-145 The [facility] Comment on above: Performed By: #### L ELSA SCHMIDT ####[facility] Wtpkrrojhp1851 [place] [address]Dr. Lizandro Hemphill Urea nitrogen [Mass/Vol] 9.0 mg/dL Normal 7.0-18.0 [place] Comment on above: Performed By: #### L ELSA SCHMIDT ####[facility] Zieofcobnp1547 [place] [address]Dr. Lizandro Hemphill Urea nitrogen/Creatinin e [Mass ratio] 14.5 mg/mg Normal [place] Comment on above: Performed By: #### L ELSA SCHMIDT ####[facility] Hjlqfiniue[address] [place], [place] [address]Dr. Lizandro Hemphill PROTIMEon 03-05-2022 INR Coag (PPP) [Relative time] 0.93 {INR} Normal [place] Comment on above: Performed By: #### P T ####[facility] Gshxdxpooo9960[address] [place], [place] [address]Dr. Lizandro Hemphill INR GUIDELINES SEE BELOW Normal [facility] Comment on above: Result Comment: GUEVARA RED INR: 2.0 - 3.0 CONDITIONS NOT LISTED BELOW 2.5 - 3.5 FOR PROSTHETIC HEART VALVE REPLACEMENT 2.5 - 3.5 RECURRENT THROMBOSIS Performed By: #### P T ####[facility] Dzwmgfhppa[address] [place], [place] [address]Dr. Lizandro Hemphill PT Coag (PPP) [Time] 10.1 s Normal 9.0-11.6 [place] Comment on above: Performed By: #### P T ####[facility] Qyqvtbbqkh1440[address] [place], [place] [address]DrCiro Hemphill CBC AUTO DIFFon 03-04-2022 BASO # 0.1 103/ul Normal 0.0-0.1 [place] Comment on above: Performed By: #### C BC ####[facility] Fswfcgyvbr48[address] [place], [place] [address]Dr. Lizandro Hemphill Basophils/100 WBC (Bld) 0.8 % Normal 0.2-2.0 [facility] Comment on above: Performed By: #### C BC ####[facility] Szgtcfglgh1743 [place] [address]Dr. Lizandro Hemphill EO # 0.1 103/ul Normal 0.0-0.7 [facility] Comment on above: Performed By: #### C BC ####[facility] Nyyqdeocox[address] [place], [place] [address]Dr. Lizandro Hemphill Eosinophils/100 WBC (Bld) 0.6 % Critically low 0.9-7.0 [facility] Comment on above: Performed By: #### C BC ####[facility] Txwklxavja37[address] [place], [place] [address]Dr. Lizandro Hemphill Erythrocyte distribution width (RBC) [Ratio] 15.3 % Critically high 11.0-15.0 [place] Comment on above: Performed By: #### C BC ####[facility] Noqxkhdkvz55[address] [place], [place] [address]Dr. Lizandro Hemphill Hematocrit (Bld) [Volume fraction] 30.5 % Critically low 36.0-48.0 [facility] Comment on above: Performed By: #### C BC ####[facility] Pgjwvjhsfy[address] [place], [place] [address]Dr. Lizandro Hemphill Hemoglobin (Bld) [Mass/Vol] 10.3 g/dL Critically low 12.0-16.0 [facility] Comment on above: Performed By: #### C BC ####[facility] Owcqqcbfjm2[address] [place], [place] [address]Dr. Lizandro Hemphill IG # 0.05 10e3/ul Critically high 0.00-0.[address] [facility] Comment on above: Performed By: #### C BC ####[facility] Qtaeszjpji9532 [place] [address]Dr. Lizandro Hemphill IG % 0.5 % Normal 0.0-0.5 [facility] Comment on above: Performed By: #### C BC ####[facility] Dqifcjbrqa0653 [place] [id number]. Lizandro Joby LYMPH # 1.7 103/ul Normal 1.2-3.8 [facility] Comment on above: Performed By: #### C BC ####[facility] Buowaeqfmb2358 [place] [id number]. Lizandro Hemphill Lymphocytes/100 WBC (Bld) 16.1 % Critically low 20.5-60.0 [facility] Comment on above: Performed By: #### C BC ####[facility] Ofuaiyofzn3915 [place] [id number]. Lizandro Joby MANUAL DIFF REQ NO Normal [facility] Comment on above: Performed By: #### C BC ####[facility] Zrvbdtwezd1292 [place] [phone]. Lizandro Joby MCH (RBC) [Entitic mass] 28.5 pg Normal 26.7-34.0 [facility] Comment on above: Performed By: #### C BC ####[facility] Peynrsmlaf0659 [place] [address]Dr. Lizandro Hemphill MCHC (RBC) [Mass/Vol] 33.8 g/dL Normal 29.9-35.2 [facility] Comment on above: Performed By: #### C BC ####[facility] Ktatlwdyxq4610 [place] [id number]. Lizandro Joby MCV (RBC) [Entitic vol] 84.5 fL Normal 81.0-99.0 [facility] Comment on above: Performed By: #### C BC ####[facility] Xquykompbc3775 [place] [phone]. Lizandro Joby MONO # 0.7 103/ul Normal 0.3-0.8 [facility] Comment on above: Performed By: #### C BC ####[facility] Pfodljemhg1765 [place] [id number]. Lizandro Joby Monocytes/100 WBC (Bld) 7.1 % Normal 1.7-12.0 [facility] Comment on above: Performed By: #### C BC ####[facility] Rwukdpqydd8263 [place] [id number]. Lizandro Hemphill NEUT # 7.8 103/ul Critically high 1.4-6.[address] [facility] Comment on above: Performed By: #### C BC ####[facility] Awhhhgqeup7552 [place] [phone]. Lizandro Hemphill Neutrophils/100 WBC (Bld) 74.9 % Normal 43.0-75.0 [facility] Comment on above: Performed By: #### C BC ####[facility] Ptxihpwpff6894 [place] [phone]. Lizandro Hemphill Platelet mean volume (Bld) [Entitic vol] 9.6 fL Normal 9.5-13.5 [facility] Comment on above: Performed By: #### C BC ####[facility] Awxagpgaxg5942 [place] [id number]. Lizandro Hemphill PLT 374 103/ul Normal 150-450 [facility] Comment on above: Performed By: #### C BC ####[facility] Vgcltarhpm8457 [place] [id number]. Lizandro Hemphill RBC 3.61 106/ul Critically low 4.20-5.[address] [facility] Comment on above: Performed By: #### C BC ####[facility] Gpfquvvpnu2277 [place] [id number]. Lizandro Hemphill WBC 10.4 103/ul Normal 4.0-11.0 [facility] Comment on above: Performed By: #### C BC ####[facility] Pswdkiqgkd7872 [place] [id number]. Lizandro Hemphill BASO # 0.1 103/ul Normal 0.0-0.1 [facility] Comment on above: Performed By: #### C BC ####[facility] Prtbjieooi8526 [place] [phone]. Lizandro Hemphill Basophils/100 WBC (Bld) 0.8 % Normal 0.2-2.0 [facility] Comment on above: Performed By: #### C BC ####[facility] Gdxanjeowr[address] [place], [place] [address]Dr. Lizandro Hemphill EO # 0.1 103/ul Normal 0.0-0.7 [facility] Comment on above: Performed By: #### C BC ####[facility] Lyccnaxtql6056 [place] [address]Dr. Lizandro Hemphill Eosinophils/100 WBC (Bld) 0.6 % Critically low 0.9-7.0 [facility] Comment on above: Performed By: #### C BC ####[facility] Oahhcbelra7773 [place] [address]Dr. Lizandro Hemphill Erythrocyte distribution width (RBC) [Ratio] 15.1 % Critically high 11.0-15.0 [facility] Comment on above: Performed By: #### C BC ####[facility] Vgdtgqyumm3209 [place] [address]Dr. Lizandro Hemphill Hematocrit (Bld) [Volume fraction] 25.7 % Critically low 36.0-48.0 [facility] Comment on above: Performed By: #### C BC ####[facility] Fynvucgjxo[address] [place], [place] [address]Dr. Lizandro Hemphill Hemoglobin (Bld) [Mass/Vol] 8.4 g/dL Critically low 12.0-16.0 [facility] Comment on above: Result Comment: aurora mcclendon given Performed By: #### C BC ####[facility] Inrxbamxwc8541 [place] [address]Dr. Lizandro Hemphill IG # 0.07 10e3/ul Critically high 0.00-0.[address] [facility] Comment on above: Performed By: #### C BC ####[facility] Xihssdohuo5034 [place] [address]Dr. Lizandro Hemphill IG % 0.6 % Critically high 0.0-0.[address] [facility] Comment on above: Performed By: #### C BC ####[facility] Wcwmwpbhdf4013 [place] [address]Dr. Shanikaannie Hemphill LYMPH # 1.5 103/ul Normal 1.2-3.8 [facility] Comment on above: Performed By: #### C BC ####[facility] Efdirzkgmo7379 [place] [phone]. Lizandro Joby Lymphocytes/100 WBC (Bld) 13.3 % Critically low 20.5-60.0 [facility] Comment on above: Performed By: #### C BC ####[facility] Bmhdlrlmpe2932 [place] [phone]. Shanikaannie Hemphill MANUAL DIFF REQ NO Normal [facility] Comment on above: Performed By: #### C BC ####[facility] Yrnpwenagj3233 [place] [phone]. Shanikaannie Hemphill MCH (RBC) [Entitic mass] 28.4 pg Normal 26.7-34.0 [facility] Comment on above: Performed By: #### C BC ####[facility] Amevsdcqgc4266 [place] [address]Dr. Lizandro Joby MCHC (RBC) [Mass/Vol] 32.7 g/dL Normal 29.9-35.2 [facility] Comment on above: Performed By: #### C BC ####[facility] Rovuuhwmgi6560 [place] [phone]. Lizandro Joby MCV (RBC) [Entitic vol] 86.8 fL Normal 81.0-99.0 [facility] Comment on above: Performed By: #### C BC ####[facility] Kmhfohdoso0894 [place] [phone]. Lizandro Hemphill MONO # 0.9 103/ul Critically high 0.3-0.[address] [facility] Comment on above: Performed By: #### C BC ####[facility] Icjjckxesq3448 [place] [phone]. Lizandro Hemphill Monocytes/100 WBC (Bld) 8.2 % Normal 1.7-12.0 [facility] Comment on above: Performed By: #### C BC ####[facility] Uebsugpugq[address] [place], [place] [address]Dr. Lizandro Hemphill NEUT # 8.7 103/ul Critically high 1.4-6.[address] [facility] Comment on above: Performed By: #### C BC ####[facility] Jnaqjypitn7266 [place] [phone]. Lizandro Hemphill Neutrophils/100 WBC (Bld) 76.5 % Critically high 43.0-75.0 [place] Comment on above: Performed By: #### C BC ####[facility] Ugggsbcqdw6826 [place] [phone]. Lizandro Hemphill Platelet mean volume (Bld) [Entitic vol] 10.2 fL Normal 9.5-13.5 [place] Comment on above: Performed By: #### C BC ####[facility] Gbdfuimcjb9749 [place] [phone]. Lizandro Hemphill PLT 287 103/ul Normal 150-450 [facility] Comment on above: Performed By: #### C BC ####[facility] Ligubkiqhx0274 [place] [phone]. Lizandro Hemphill RBC 2.96 106/ul Critically low 4.20-5.[address] [facility] Comment on above: Performed By: #### C BC ####[facility] Lyzyomlnqp[address] [place], [place] [address]Dr. Lizandro Hemphill WBC 11.4 103/ul Critically high 4.0-11.0 [facility] Comment on above: Performed By: #### C BC ####[facility] Ngngmvfipx6715 [place] [phone]. Lizandro Hemphill CT ABD/PELVIS WO CONon 03-04 CT ABD/PELVIS WO CON Normal [facility] PROF CHEM 8 (BAS METB)on Anion gap [Moles/Vol] 12.4 mmol/L Normal [facility] Comment on above: Performed By: #### B MP ####[facility] Irghufoukl[address] [place], [place] [address]Dr. Lizandro Hemphill Calcium [Mass/Vol] 8.0 mg/dL Critically low 8.5-10.[address] [facility] Comment on above: Performed By: #### B MP ####[facility] Xdmzdsmkil39[address] [place], [place] [address]Dr. Lizandro Hemphill Chloride [Moles/Vol] 106 mmol/L Normal 98-107 [facility] Comment on above: Performed By: #### B MP ####[facility] Syauhmvrdq5277 [place] [address]Dr. Lizandro Hemphill CO2 [Moles/Vol] 24.3 mmol/L Normal 21.0-32.0 [facility] Comment on above: Performed By: #### B MP ####[facility] Wlqdhlhzgp8103 [place] [address]Dr. Lizandro Hemphill Creatinine [Mass/Vol] 0.85 mg/dL Normal 0.55-1.02 [facility] Comment on above: Performed By: #### B MP ####[facility] Oymudtaite5[address] [place], [place] [address]Dr. Shanikaannie Hemphill EGFR-AF [place] >60 Normal >=60 [facility] Comment on above: Performed By: #### B MP ####[facility] Vjejalgacv[address] [place], [place] [address]Dr. Lizandro Joby EGFR-NON AF CITIZEN OF [place] >60 Normal >=60 [facility] Comment on above: Performed By: #### B MP ####[facility] Wbqrlcyezj877[address] [place], [place] [address]Dr. Lizandro Joby Glucose [Mass/Vol] 91 mg/dL Normal 74-106 The [facility] Comment on above: Performed By: #### B MP ####[facility] Bckraocidn6[address] [place], [place] [address]Dr. Lizandro Joby Potassium [Moles/Vol] 3.7 mmol/L Normal 3.5-5.1 [facility] Comment on above: Performed By: #### B MP ####[facility] Lyqbbpewzu2154 [place] [address]Dr. Lizandro Hemphill Sodium [Moles/Vol] 139 mmol/L Normal 136-145 The [facility] Comment on above: Performed By: #### B MP ####[facility] Kzbttzlbeg35[address] [place], [place] [address]Dr. Lizandro Hemphill Urea nitrogen [Mass/Vol] 24.0 mg/dL Critically high 7.0-18.0 [facility] Comment on above: Performed By: #### B MP ####[facility] Viscmcjfqx0045 [place] [address]Dr. Lizandro Hemphill Urea nitrogen/Creatinin e [Mass ratio] 28.2 mg/mg Normal [facility] Comment on above: Performed By: #### B MP ####[facility] Hxgluidmri9766[address] [place], [place] [address]Dr. Lizandro Hemphill PROTIMEon 03-04-2022 INR Coag (PPP) [Relative time] 1.08 {INR} Normal [facility] Comment on above: Performed By: #### P T ####[facility] Zgaynlyakr69[address] [place], [place] [address]Dr. Lizandro Hemphill INR GUIDELINES SEE BELOW Normal [facility] Comment on above: Result Comment: GUEVARA RED INR: 2.0 - 3.0 CONDITIONS NOT LISTED BELOW 2.5 - 3.5 FOR PROSTHETIC HEART VALVE REPLACEMENT 2.5 - 3.5 RECURRENT THROMBOSIS Performed By: #### P T ####[facility] Lhrjasywox[address] [place], [place] [address]Dr. Lizandro Hemphill PT Coag (PPP) [Time] 11.6 s Normal 9.0-11.6 [facility] Comment on above: Performed By: #### P T ####[facility] Lbdydvqpef7424[address] [place], [place] [address]Dr. Lizandro Hemphill BNPon 03-03-2022 Natriuretic peptide B (Bld) [Mass/Vol] 71.0 pg/mL Normal <=900.0 [facility] Comment on above: Performed By: #### H STROPN, LIPA, BNP, CMP ####[facility] Uozcqkeaxw[address] [place], [place] [address]Dr. Lizandro Hemphill CBC AUTO DIFFon 03-03-2022 BASO # 0.1 103/ul Normal 0.0-0.1 [facility] Comment on above: Performed By: #### C BC ####[facility] Kegxowbkgj9[address] [place], [place] [address]DrCiro Hemphill Basophils/100 WBC (Bld) 0.7 % Normal 0.2-2.0 [place] Comment on above: Performed By: #### C BC ####[facility] Fzfigmzcrn9565 [place] [address]DrCiro Hemphill EO # 0.0 103/ul Normal 0.0-0.7 [facility] Comment on above: Performed By: #### C BC ####[facility] Bneloqkfea80[address] [place], [place] [address]DrCiro Hemphill Eosinophils/100 WBC (Bld) 0.2 % Critically low 0.9-7.0 [place] Comment on above: Performed By: #### C BC ####[facility] Glknhxtnbn66[address] [place], [place] [address]Dr. Lizandro Hemphill Erythrocyte distribution width (RBC) [Ratio] 16.3 % Critically high 11.0-15.0 [place] Comment on above: Performed By: #### C BC ####[facility] Gsshldjlxt[address] [place], [place] [address]DrCiro Hemphill Hematocrit (Bld) [Volume fraction] 17.3 % Critically low 36.0-48.0 [place] Comment on above: Performed By: #### C BC ####[facility] Hjimwqpwst7[address] [place], [place] [address]DrCiro Hemphill Hemoglobin (Bld) [Mass/Vol] 6.2 g/dL Critically low 12.0-16.0 [place] Comment on above: Performed By: #### C BC ####[facility] Rmxuwqcvhu8[address] [place], [place] [address]DrCiro Hemphill IG # 0.09 10e3/ul Critically high 0.00-0.03 [facility] Comment on above: Performed By: #### C BC ####[facility] Viglkpympx34[address] [place], [place] [address]DrCiro Hemphill IG % 0.7 % Critically high 0.0-0.[address] [facility] Comment on above: Performed By: #### C BC ####[facility] Jlyvxpkcis[address] [place], [place] [address]DrCiro Hemphill LYMPH # 2.2 103/ul Normal 1.2-3.8 [facility] Comment on above: Performed By: #### C BC ####[facility] Aimyiipjqj9450 [place] [address]Dr. Lizandro Hemphill Lymphocytes/100 WBC (Bld) 16.1 % Critically low 20.5-60.0 [place] Comment on above: Performed By: #### C BC ####[facility] [facility] [address]pgpnpzjjg[address] [place] [address]Dr. Lizandro Hemphill MANUAL DIFF REQ NO Normal [facility] Comment on above: Performed By: #### C BC ####[facility] Nqmeyjrtug[address] [place], [place] [address]Dr. Lizandro Hemphill MCH (RBC) [Entitic mass] 30.0 pg Normal 26.7-34.0 [facility] Comment on above: Performed By: #### C BC ####[facility] Fhflibkjcr25[address] [place], [place] [address]Dr. Lizandro Hemphill MCHC (RBC) [Mass/Vol] 35.8 g/dL Critically high 29.9-35.2 [facility] Comment on above: Performed By: #### C BC ####[facility] Llnbsupcee63[address] [place], [place] [address]Dr. Lizandro Hemphill MCV (RBC) [Entitic vol] 83.6 fL Normal 81.0-99.0 [facility] Comment on above: Performed By: #### C BC ####[facility] Fkoomvtcpl1404[address] [place], [place] [address]Dr. Lizandro Hemphill MONO # 1.0 103/ul Critically high 0.3-0.[address] [facility] Comment on above: Performed By: #### C BC ####[facility] Kqyhrgcucr56[address] [place], [place] [address]Dr. Lizandro Hemphill Monocytes/100 WBC (Bld) 7.2 % Normal 1.7-12.0 [facility] Comment on above: Performed By: #### C BC ####[facility] Xayydlutui8[address] [place], [place] [address]Dr. Lizandro Hemphill NEUT # 10.3 103/ul Critically high 1.4-6.5 [facility] Comment on above: Performed By: #### C BC ####[facility] Yvxwqmryds0178 [place] [address]Dr. Lizandro Hemphill Neutrophils/100 WBC (Bld) 75.1 % Critically high 43.0-75.0 [facility] Comment on above: Performed By: #### C BC ####[facility] Dhtacwidul2943 [place] [address]Dr. Lizandro Hemphill Platelet mean volume (Bld) [Entitic vol] 10.0 fL Normal 9.5-13.5 [facility] Comment on above: Performed By: #### C BC ####[facility] Ysksnmjrsn125[address] [place], [place] [address]Dr. Lizandro Hemphill PLT 412 103/ul Normal 150-450 [facility] Comment on above: Performed By: #### C BC ####[facility] Yctwefkpfd11[address] [place], [place] [address]Dr. Lizandro Hemphill RBC 2.07 106/ul Critically low 4.20-5.[address] [facility] Comment on above: Performed By: #### C BC ####[facility] Vswrmytxkl1754[address] [place], [place] [address]Dr. Lizandro Hemphill WBC 13.7 103/ul Critically high 4.0-11.0 [facility] Comment on above: Performed By: #### C BC ####[facility] Ylbaxlawnb5[address] [place], [place] [address]Dr. Lizandro Hemphill BASO # 0.1 103/ul Normal 0.0-0.1 [facility] Comment on above: Performed By: #### C BC ####[facility] Dxghuzmojk7427[address] [place], [place] [address]Dr. Lizandro Hemphill Basophils/100 WBC (Bld) 0.6 % Normal 0.2-2.0 [facility] Comment on above: Performed By: #### C BC ####[facility] Bajpxhnfgy9[address] [place], [place] [address]Dr. Lizandro Joby EO # 0.0 103/ul Normal 0.0-0.7 [place] Comment on above: Performed By: #### C BC ####[facility] Ydbjwzuijz1596 [place] [address]Dr. Shanikaannie Joby Eosinophils/100 WBC (Bld) 0.2 % Critically low 0.9-7.0 [place] Comment on above: Performed By: #### C BC ####[facility] Aantrtatri19[address] [place], [place] [address]Dr. Lizandro Hemphill Erythrocyte distribution width (RBC) [Ratio] 16.4 % Critically high 11.0-15.0 [place] Comment on above: Performed By: #### C BC ####[facility] Qryljslxng6575[address] [place], [place] [address]Dr. Lizandro Hemphill Hematocrit (Bld) [Volume fraction] 19.1 % Critically low 36.0-48.0 [place] Comment on above: Performed By: #### C BC ####[facility] Avkhthhizg5583[address] [place], [place] [address]Dr. Lizandro Hemphill Hemoglobin (Bld) [Mass/Vol] 6.3 g/dL Critically low 12.0-16.0 [place] Comment on above: Performed By: #### C BC ####[facility] Vxgeyvmtyj2475[address] [place], [place] [address]Dr. Lizandro Hemphill IG # 0.09 10e3/ul Critically high 0.00-0.03 [facility] Comment on above: Performed By: #### C BC ####[facility] Eygtosacdz95[address] [place], [place] [address]Dr. Lizandro Hemphill IG % 0.6 % Critically high 0.0-0.[address] [facility] Comment on above: Performed By: #### C BC ####[facility] Ksgzvveydh2913[address] [place], [place] [address]DrCiro Hemphill LYMPH # 1.7 103/ul Normal 1.2-3.8 [facility] Comment on above: Performed By: #### C BC ####[facility] Gyhhstfoce4876[address] [place], [place] [address]DrCiro Hemphill Lymphocytes/100 WBC (Bld) 11.9 % Critically low 20.5-60.0 [facility] Comment on above: Performed By: #### C BC ####[facility] Uwnggiznec0411 [place] [address]DrCiro Hemphill MANUAL DIFF REQ NO Normal [facility] Comment on above: Performed By: #### C BC ####[facility] Ankhhqnxgm7978 [place] [address]DrCiro Hemphill MCH (RBC) [Entitic mass] 28.4 pg Normal 26.7-34.0 [facility] Comment on above: Performed By: #### C BC ####[facility] Zmvycwnfhb[address] [place], [place] [address]DrCiro Hemphill MCHC (RBC) [Mass/Vol] 33.0 g/dL Normal 29.9-35.2 [facility] Comment on above: Performed By: #### C BC ####[facility] Aecnqtyydz5346[address] [place], [place] [address]DrCiro Hemphill MCV (RBC) [Entitic vol] 86.0 fL Normal 81.0-99.0 [facility] Comment on above: Performed By: #### C BC ####[facility] Hzjyyvttko5929[address] [place], [place] [address]DrCior Hemphill MONO # 0.9 103/ul Critically high 0.3-0.[address] [facility] Comment on above: Performed By: #### C BC ####[facility] Ruottkicno4210[address] [place], [place] [address]DrCiro Hemphill Monocytes/100 WBC (Bld) 6.1 % Normal 1.7-12.0 [facility] Comment on above: Performed By: #### C BC ####[facility] Lrnqxljuos1714[address] [place], [place] [address]DrCiro Hemphill NEUT # 11.7 103/ul Critically high 1.4-6.5 [facility] Comment on above: Performed By: #### C BC ####[facility] Jnakknclpj528[address] [place], [place] [address]DrCiro Hemphill Neutrophils/100 WBC (Bld) 80.6 % Critically high 43.0-75.0 [facility] Comment on above: Performed By: #### C BC ####[facility] Hvqorswrbi0138 [place], [place] [address]Db. Lizandro Hemphill Platelet mean volume (Bld) [Entitic vol] 10.1 fL Normal 9.5-13.5 [facility] Comment on above: Performed By: #### C BC ####[facility] Lqmssxvqcx9261 [place], [place] [address]Aq. Lizandro Hemphill PLT 449 103/ul Normal 150-450 [facility] Comment on above: Performed By: #### C BC ####[facility] Vosabmunpi9618 [place], [place] [address]Il. Lizandro Hemphill RBC 2.22 106/ul Critically low 4.20-5.[address] [facility] Comment on above: Performed By: #### C BC ####[facility] Zmqdypiclc1462 [place], [place] [address]Rg. Lizandro Hemphill WBC 14.6 103/ul Critically high 4.0-11.0 [facility] Comment on above: Performed By: #### C BC ####[facility] Iynpohkiua9798 [place], [place] [address]Az. Lizandro Hemphill Covid-19 PCR ([facility])on SARS-CoV-2 (COVID-19) RNA VERITO+probe Ql (Unsp spec) Not detected Normal NOT DETECTED [facility] Comment on above: Result Comment: When [...] for this test is supported by the [place] of Health and Human Service's declaration that [...] be used). Performed By: #### C VDTBH ####[facility] Avgdodatng8409 [place] [address]Dr. Lizandro Hemphill LACTATE/LACTIC ACIDon 2021 Lactate [Moles/Vol] 1.4 mmol/L Normal 0.4-1.9 [place] Comment on above: Performed By: #### L ACT ####[facility] Qzydguhlsy4[address] [place], [place] [address]Dr. Lizandro Hemphill Lactate [Moles/Vol] 2.0 mmol/L Critically high 0.4-1.9 [place] Comment on above: Performed By: #### L ACT ####[facility] Gpheymvhjf[address] [place], [place] [address]Dr. Lizandro Hemphill LIPASEon 03-03-2022 Lipase [Catalytic activity/Vol] 135.0 U/L Normal 73.0-393.0 [place] Comment on above: Performed By: #### H STROPN, LIPA, BNP, CMP ####[facility] Mvkpwykltq4475 [place] [address]Dr. Lizandro Hemphill PROF 14(COMP METB)on 022 Albumin [Mass/Vol] 2.8 g/dL Critically low 3.4-5.[address] [facility] Comment on above: Performed By: #### H STROPN, LIPA, BNP, CMP ####[facility] Oqlbwhtssy3630 [place] [address]Dr. Lizandro Hemphill Albumin/Globulin [Mass ratio] 0.9 {ratio} Normal [place] Comment on above: Performed By: #### H STROPN, LIPA, BNP, CMP ####[facility] Nmrhfypueb0546 [place] [address]Dr. Lizandro Hemphill ALP [Catalytic activity/Vol] 96 U/L Normal 46-116 [place] Comment on above: Performed By: #### H STROPN, LIPA, BNP, CMP ####[facility] Kytndrdjnl5939 [place] [address]Dr. Lizandro Hemphill ALT [Catalytic activity/Vol] 44 U/L Normal 14-59 [place] Comment on above: Performed By: #### H STROPN, LIPA, BNP, CMP ####[facility] Gxbltuwmdf3005 [place] [address]Dr. Lizandro Hemphill Anion gap [Moles/Vol] 14.6 mmol/L Normal [place] Comment on above: Performed By: #### H STROPN, LIPA, BNP, CMP ####[facility] Heamvridpt9190[address] [place], [place] [address]Dr. Lizandro Hemphill AST [Catalytic activity/Vol] 46 U/L Critically high 15-37 [place] Comment on above: Performed By: #### H STROPN, LIPA, BNP, CMP ####[facility] Gcsigporwf67[address] [place], [place] [address]Dr. Lizandro Hemphill Bilirubin [Mass/Vol] 0.2 mg/dL Normal 0.2-1.0 [place] Comment on above: Performed By: #### H STROPN, LIPA, BNP, CMP ####[facility] Plomffgejh9[address] [place], [place] [address]Dr. Lizandro Hemphill Calcium [Mass/Vol] 8.8 mg/dL Normal 8.5-10.1 [facility] Comment on above: Performed By: #### H STROPN, LIPA, BNP, CMP ####[facility] Eyvxawmsrw8352 [place] [address]Dr. Lizandro Hemphill Chloride [Moles/Vol] 105 mmol/L Normal 98-107 [facility] Comment on above: Performed By: #### H STROPN, LIPA, BNP, CMP ####[facility] Qghtahztko30[address] [place], [place] [address]Dr. Lizandro Hemphill CO2 [Moles/Vol] 22.9 mmol/L Normal 21.0-32.0 [facility] Comment on above: Performed By: #### H STROPN, LIPA, BNP, CMP ####[facility] Qtyhizrgbl9201 [place] [address]Dr. Lizandro Hemphill Creatinine [Mass/Vol] 1.07 mg/dL Critically high 0.55-1.02 [place] Comment on above: Performed By: #### H STROPN, LIPA, BNP, CMP ####[facility] Mqauaeggtw26[address] [place] [address]Dr. Lizandro Hemphill EGFR-AF [place] 63 mL/min/1.73m2 Normal >=60 [facility] Comment on above: Performed By: #### H STROPN, LIPA, BNP, CMP ####[facility] Vgvpruokaj2506 [place] [address]Dr. Lizandro Hemphill EGFR-NON AF CITIZEN OF [place] 52 mL/min/1.73m2 Critically low >=60 [place] Comment on above: Performed By: #### H STROPN, LIPA, BNP, CMP ####[facility] Ohcaiqggrb48[address] [place] [address]Dr. Lizandro Hemphill Globulin (S) [Mass/Vol] 3.1 g/dL Normal [place] Comment on above: Performed By: #### H STROPN, LIPA, BNP, CMP ####[facility] Tscmvimfhm5869 [place] [address]Dr. Lizandro Hemphill Glucose [Mass/Vol] 123 mg/dL Critically high 74-106 [facility] Comment on above: Performed By: #### H STROPN, LIPA, BNP, CMP ####[facility] Npreiojcii0497 [place] [address]Dr. Lizandro Hemphill Potassium [Moles/Vol] 3.5 mmol/L Normal 3.5-5.1 [place] Comment on above: Performed By: #### H STROPN, LIPA, BNP, CMP ####[facility] Neyhjcnbpb8619 [place] [address]Dr. Lizandro Hemphill Protein [Mass/Vol] 5.9 g/dL Critically low 6.4-8.[address] [facility] Comment on above: Performed By: #### H STROPN, LIPA, BNP, CMP ####[facility] Wlqlznffvg7886 [place] [address]Dr. Lizandro Hemphill Sodium [Moles/Vol] 139 mmol/L Normal 136-145 [facility] Comment on above: Result Comment: kennedy sly lipemic sample Performed By: #### H STROPN, LIPA, BNP, CMP ####[facility] Bdzzkeodhv1684 [place] [address]Dr. Lizandro Hemphill Urea nitrogen [Mass/Vol] 37.0 mg/dL Critically high 7.0-18.0 [place] Comment on above: Performed By: #### H STROPN, LIPA, BNP, CMP ####[facility] Gjpanjnvoi7651 [place] [address]Dr. Lizandro Hemphill Urea nitrogen/Creatinin e [Mass ratio] 34.6 mg/mg Normal [place] Comment on above: Performed By: #### H STROPN, LIPA, BNP, CMP ####[facility] Lblmdmrehv[address] [place], [place] [address]Dr. Lizandro Hemphill PROTIMEon 03-03-2022 INR Coag (PPP) [Relative time] 1.18 {INR} Normal [place] Comment on above: Performed By: #### P T ####[facility] Ulbqmbdbyq5[address] [place], [place] [address]Dr. Lizandro Hemphill INR GUIDELINES SEE BELOW Normal [facility] Comment on above: Result Comment: GUEVARA RED INR: 2.0 - 3.0 CONDITIONS NOT LISTED BELOW 2.5 - 3.5 FOR PROSTHETIC HEART VALVE REPLACEMENT 2.5 - 3.5 RECURRENT THROMBOSIS Performed By: #### P T ####[facility] Lkcvepneyb8078 [place] [address]Dr. Lizandro Hemphill PT Coag (PPP) [Time] 12.6 s Critically high 9.0-11.6 [place] Comment on above: Performed By: #### P T ####[facility] Kedwurahee[address] [place], [place] [address]Dr. Lizandro Hemphill INR Coag (PPP) [Relative time] 1.22 {INR} Normal [facility] Comment on above: Performed By: #### P T, PTT ####[facility] Ufgjmznxuv9843 [place] [id number]. Lizandro Hemphill INR GUIDELINES SEE BELOW Normal [facility] Comment on above: Result Comment: GUEVARA RED INR: 2.0 - 3.0 CONDITIONS NOT LISTED BELOW 2.5 - 3.5 FOR PROSTHETIC HEART VALVE REPLACEMENT 2.5 - 3.5 RECURRENT THROMBOSIS Performed By: #### P T, PTT ####[facility] Juzdstlweu2285 [place] [id number]. Lizandro Hemphill PT Coag (PPP) [Time] 13.0 s Critically high 9.0-11.6 [facility] Comment on above: Performed By: #### P T, PTT ####[facility] Miczihgirb3643 [place] [address]Dr. Lizandro Hemphill PTTon 03-03-2022 aPTT Coag (Bld) [Time] 23.1 s Normal 22.3-36.2 [facility] Comment on above: Performed By: #### P T, PTT ####[facility] Ptsaokuekk0869 [place] [address]Dr. Lizandro Hemphill TROPONIN, HIGH SENSITIVITYon 03-03-2022 HSTROP 7.5 pg/mL Normal 4.0-51.3 [facility] Comment on above: Result Comment: CUT- OFF POINTS HAVE BEEN ESTABLISHED BASED ON THE FOURTH UNIVERSAL DEFINITIONS OF MYOCARDIALINFARCTION. THE UPPER REFERENCE LIMIT (URL) OF TROPONIN, DEFINED THE 99TH PERCENTILE OFcTnI DISTRIBUTION IN A REFERENCE POPULATION, HAS BEEN CONFIRMED THE DECISION THRESHOLDFOR MS DIAGNOSIS. Performed By: #### H STROPN, LIPA, BNP, CMP ####[facility] Gqpwbbiwwo2003 [place] [id number]. Lizandro Hemphill TYPE AND SCREENon 03-03-2022 TYPE AND SCREEN Negative Normal [facility] Comment on above: Performed By: #### T NS ####[facility] Tztjeiaczh5527 [place] [id number]. Shanikaannie Joby CT HIP LT WO CONon 2 CT HIP LT WO CON Normal [facility] XR HIP LT 2 3V W PELVISon XR HIP LT 2 3V W PELVIS Normal [facility] CT CSPINE WO CONon 2 CT CSPINE WO CON Normal [facility] PRBC LEUKOREDUCEDon 02-03-20 22 PRBC LEUKOREDUCED Normal The [facility] Comment on above: Performed By: #### P RBC ####[facility] Kphvftngks3597 [place] [address]Dr. Lizandro Hemphill US VENOUS DOPPLER L Monyt US VENOUS DOPPLER L ARM Normal [facility] CBC AUTO DIFFon 01-27-2022 BASO # 0.1 103/ul Normal 0.0-0.1 [facility] Comment on above: Performed By: #### C BC ####[facility] Nfjbgvjckq8[address] [place], [place] [address]Dr. Lizandro Hemphill Basophils/100 WBC (Bld) 0.5 % Normal 0.2-2.0 [facility] Comment on above: Performed By: #### C BC ####[facility] Pscunlhffi7112[address] [place], [place] [address]Dr. Lizandro Hemphill EO # 0.1 103/ul Normal 0.0-0.7 [facility] Comment on above: Performed By: #### C BC ####[facility] Jsgkaqnmvd0[address] [place], [place] [address]Dr. Lizandro Hemphill Eosinophils/100 WBC (Bld) 1.1 % Normal 0.9-7.0 [facility] Comment on above: Performed By: #### C BC ####[facility] Jrrsizlvpf4[address] [place], [place] [address]Dr. Lizandro Hemphill Erythrocyte distribution width (RBC) [Ratio] 16.9 % Critically high 11.0-15.0 [facility] Comment on above: Performed By: #### C BC ####[facility] Ifucuivnmv836[address] [place], [place] [address]Dr. Lizandro Hemphill Hematocrit (Bld) [Volume fraction] 27.9 % Critically low 36.0-48.0 [facility] Comment on above: Performed By: #### C BC ####[facility] Tgbfdwsxmi1445 [place] [id number]. Lizandro Hemphill Hemoglobin (Bld) [Mass/Vol] 9.1 g/dL Critically low 12.0-16.0 [facility] Comment on above: Performed By: #### C BC ####[facility] Vjgzzikegm9068 [place] [id number]. Lizandro Hemphill IG # 0.05 10e3/ul Critically high 0.00-0.[address] [facility] Comment on above: Performed By: #### C BC ####[facility] Xcjjchdsea0111 [place] [id number]. Lizandro Hemphill IG % 0.5 % Normal 0.0-0.5 [facility] Comment on above: Performed By: #### C BC ####[facility] Qogddkxbgk3226 [place] [address]Dr. Lizandro Hemphill LYMPH # 1.9 103/ul Normal 1.2-3.8 [facility] Comment on above: Performed By: #### C BC ####[facility] Kwprotvvwz3745 [place] [address]Dr. Lizandro Hemphill Lymphocytes/100 WBC (Bld) 20.2 % Critically low 20.5-60.0 [facility] Comment on above: Performed By: #### C BC ####[facility] Hwprlgojam2314 [place] [address]Dr. Lizandro Hemphill MANUAL DIFF REQ NO Normal [facility] Comment on above: Performed By: #### C BC ####[facility] Vdnanrxyhi7513 [place] [id number]. Lizandro Hemphill MCH (RBC) [Entitic mass] 29.7 pg Normal 26.7-34.0 [facility] Comment on above: Performed By: #### C BC ####[facility] Kaodzuabal9900 [place] [address]Dr. Lizandro Hemphill MCHC (RBC) [Mass/Vol] 32.6 g/dL Normal 29.9-35.2 [facility] Comment on above: Performed By: #### C BC ####[facility] Muuyvaivsn7690 [place] [id number]. Lizandro Hemphill MCV (RBC) [Entitic vol] 91.2 fL Normal 81.0-99.0 [facility] Comment on above: Performed By: #### C BC ####[facility] Iaubryduwl1601 [place] [id number]. Lizandro Hemphill MONO # 1.0 103/ul Critically high 0.3-0.[address] [facility] Comment on above: Performed By: #### C BC ####[facility] Vreivjkncq2980 [place] [address]Dr. Lizandro Hemphill Monocytes/100 WBC (Bld) 10.9 % Normal 1.7-12.0 [facility] Comment on above: Performed By: #### C BC ####[facility] Appqitrksp4138[address] [place], [place] [address]Dr. Lizandro Hemphill NEUT # 6.2 103/ul Normal 1.4-6.5 [facility] Comment on above: Performed By: #### C BC ####[facility] Tjkbirsenu36[address] [place], [place] [address]Dr. Lizandro Hemphill Neutrophils/100 WBC (Bld) 66.8 % Normal 43.0-75.0 [facility] Comment on above: Performed By: #### C BC ####[facility] Rfljqqqcka9823 [place] [address]Dr. Lizandro Hemphill Platelet mean volume (Bld) [Entitic vol] 11.0 fL Normal 9.5-13.5 [facility] Comment on above: Performed By: #### C BC ####[facility] Asapbdegbh4414 [place] [id number]. Lizandro Hemphill PLT 189 103/ul Normal 150-450 [facility] Comment on above: Performed By: #### C BC ####[facility] Ihgeoiyslu[address] [place], [place] [address]Dr. Lizandro Hemphill RBC 3.06 106/ul Critically low 4.20-5.[address] [facility] Comment on above: Performed By: #### C BC ####[facility] Wlatbaqdph5307 [place] [address]Dr. Shanikaannie Joby WBC 9.3 103/ul Normal 4.0-11.0 [place] Comment on above: Performed By: #### C BC ####[facility] Qkgmmgvhhy5827 [place] [address]Dr. Lizandro Hemphill PROF 14(COMP METB)on 022 Albumin [Mass/Vol] 2.7 g/dL Critically low 3.4-5.0 Th e [facility] Comment on above: Performed By: #### C MP ####[facility] Evdqjmdqnd3956 [place] [address]Dr. Lizandro Hemphill Albumin/Globulin [Mass ratio] 0.9 {ratio} Normal [place] Comment on above: Performed By: #### C MP ####[facility] Xaemcpmbdy6[address] [place], [place] [address]Dr. Lizandro Hemphill ALP [Catalytic activity/Vol] 63 U/L Normal 46-116 [facility] Comment on above: Performed By: #### C MP ####[facility] Oggkmgmxxz789[address] [place], [place] [address]Dr. Lizandro Hemphill ALT [Catalytic activity/Vol] 27 U/L Normal 14-59 [place] Comment on above: Performed By: #### C MP ####[facility] Gykxkfuttp9465[address] [place], [place] [address]Dr. Lizandro Hemphill Anion gap [Moles/Vol] 8.5 mmol/L Normal [facility] Comment on above: Performed By: #### C MP ####[facility] Ybdlrwzpfz776[address] [place], [place] [address]Dr. Shanikaannie Hemphill AST [Catalytic activity/Vol] 33 U/L Normal 15-37 [facility] Comment on above: Performed By: #### C MP ####[facility] Vohakbyhtk3539[address] [place], [place] [address]Dr. Lizandro Hemphill Bilirubin [Mass/Vol] 0.2 mg/dL Normal 0.2-1.0 [facility] Comment on above: Performed By: #### C MP ####[facility] Avcyntzsvn2005[address] [place], [place] [address]Dr. Lizandro Hemphill Calcium [Mass/Vol] 7.9 mg/dL Critically low 8.5-10.1 Th e [facility] Comment on above: Performed By: #### C MP ####[facility] Shbcracvqy0109 [place] [address]Dr. Lizandro Hemphill Chloride [Moles/Vol] 102 mmol/L Normal 98-107 [facility] Comment on above: Performed By: #### C MP ####[facility] Cmkppxhycm2801 [place] [address]Dr. Lizandro Hemphill CO2 [Moles/Vol] 26.5 mmol/L Normal 21.0-32.0 [facility] Comment on above: Performed By: #### C MP ####[facility] Fqumzxuwym54[address] [place], [place] [address]Dr. Lizandro Joby Creatinine [Mass/Vol] 0.99 mg/dL Normal 0.55-1.02 [place] Comment on above: Performed By: #### C MP ####[facility] Plujjhmkmn48[address] [place], [place] [address]Dr. Lizandro Hemphill EGFR-AF CITIZ[place] >60 Normal >=60 [facility] Comment on above: Performed By: #### C MP ####[facility] Rldxzipdob67[address] [place], [place] [address]Dr. Lizandro Joby EGFR-NON AF CITIZEN OF [place] 57 mL/min/1.73m2 Critically low >=60 [facility] Comment on above: Performed By: #### C MP ####[facility] Jvnlwtosie[address] [place], [place] [address]Dr. Lizandro Joby Globulin (S) [Mass/Vol] 2.9 g/dL Normal [facility] Comment on above: Performed By: #### C MP ####[facility] Vbyjuljprb[address] [address] [place], [place] [address]Dr. Lizandro Joby Glucose [Mass/Vol] 86 mg/dL Normal 74-106 The [facility] Comment on above: Performed By: #### C MP ####[facility] Igxgwsrpvm[address] [place], [place] [address]Dr. Lizandro Hemphill Potassium [Moles/Vol] 4.0 mmol/L Normal 3.5-5.1 The [facility] Comment on above: Performed By: #### C MP ####[facility] Cdzywopzyh40[address] [place], [place] [address]Dr. Lizandro Hemphill Protein [Mass/Vol] 5.6 g/dL Critically low 6.4-8.2 Th e [facility] Comment on above: Performed By: #### C MP ####[facility] Yuktkpknqj25[address] [place], [place] [address]Dr. Lizandro Hemphill Sodium [Moles/Vol] 133 mmol/L Critically low 136-[address] [facility] Comment on above: Performed By: #### C MP ####[facility] Zuxhejygzo3[address] [place], [place] [address]Dr. Lizandro Hemphill Urea nitrogen [Mass/Vol] 23.0 mg/dL Critically high 7.0-18.0 [place] Comment on above: Performed By: #### C MP ####[facility] Txltppgykp5580[address] [place], [place] [address]Dr. Lizandro Hemphill Urea nitrogen/Creatinin e [Mass ratio] 23.2 mg/mg Normal [place] Comment on above: Performed By: #### C MP ####[facility] Ouklinzeyn2325[address] [place], [place] [address]Dr. Lizandro Hemphill PROTIMEon 01-27-2022 INR Coag (PPP) [Relative time] 1.23 {INR} Normal The [facility] Comment on above: Performed By: #### P T, PTT ####[facility] Dgvsnwgnif9[address] [place], [place] [address]Dr. Lizandro Hemphill INR GUIDELINES SEE BELOW Normal The [facility] Comment on above: Result Comment: GUEVARA RED INR: 2.0 - 3.0 CONDITIONS NOT LISTED BELOW 2.5 - 3.5 FOR PROSTHETIC HEART VALVE REPLACEMENT 2.5 - 3.5 RECURRENT THROMBOSIS Performed By: #### P T, PTT ####[facility] Bmgbvilnck39[address] [place], [place] [address]Dr. Lizandro Hemphill PT Coag (PPP) [Time] 13.1 s Critically high 9.0-11.6 The [facility] Comment on above: Performed By: #### P T, PTT ####[facility] Yngldazuvl[address] [place], [place] [address]Dr. Lizandro Hemphill PTTon 01-27-2022 aPTT Coag (Bld) [Time] 22.9 s Normal 22.3-36.2 The [facility] Comment on above: Performed By: #### P T, PTT ####[facility] Xvnluwlmvf1612[address] [place], [place] [address]Dr. Lizandro Hemphill CBC AUTO DIFFon 01-26-2022 BASO # 0.1 103/ul Normal 0.0-0.1 The [facility] Comment on above: Performed By: #### C BC ####[facility] Nfniwbduph9335[address] [place], [place] [address]Dr. Lizandro Hemphill Basophils/100 WBC (Bld) 0.4 % Normal 0.2-2.0 The [facility] Comment on above: Performed By: #### C BC ####[facility] Ipivgasgnc[address] [place], [place] [address]Dr. Lizandro Hemphill EO # 0.0 103/ul Normal 0.0-0.7 The [facility] Comment on above: Performed By: #### C BC ####[facility] Xvzsjpsbjw94[address] [place], [place] [address]Dr. Lizandro Hemphill Eosinophils/100 WBC (Bld) 0.2 % Critically low 0.9-7.0 The [facility] Comment on above: Performed By: #### C BC ####[facility] Vbiisxlzku4838[address] [place], [place] [address]Dr. Lizandro Hemphill Erythrocyte distribution width (RBC) [Ratio] 16.7 % Critically high 11.0-15.0 The [facility] Comment on above: Performed By: #### C BC ####[facility] Kkysztcwfy57[address] [place], [place] [address]Dr. Shanikaannie Joby Hematocrit (Bld) [Volume fraction] 28.9 % Critically low 36.0-48.0 The [facility] Comment on above: Performed By: #### C BC ####[facility] [address]zo[address] [place] [id number]. Lizandro Hemphill Hemoglobin (Bld) [Mass/Vol] 9.5 g/dL Critically low 12.0-16.0 The [facility] Comment on above: Performed By: #### C BC ####[facility] Kwcqppdfsm3001 [place] [id number]. Lizandro Hemphill IG # 0.06 10e3/ul Critically high 0.00-0.03 [facility] Comment on above: Performed By: #### C BC ####[facility] Ezllykpdix[address] [place] [address]Dr. Lizandro Hemphill IG % 0.5 % Normal 0.0-0.5 The [facility] Comment on above: Performed By: #### C BC ####[facility] Chrsfktlnz3[address] [place] [address]Dr. Lizandro Hemphill LYMPH # 1.7 103/ul Normal 1.2-3.8 The [facility] Comment on above: Performed By: #### C BC ####[facility] Uyioxvfcxr72[address] [place] [address]Dr. Lizandro Hemphill Lymphocytes/100 WBC (Bld) 13.4 % Critically low 20.5-60.0 The [facility] Comment on above: Performed By: #### C BC ####[facility] Efxytsjuru75[address] [place] [address]Dr. Lizandro Hemphill MANUAL DIFF REQ NO Normal The [facility] Comment on above: Performed By: #### C BC ####[facility] Clijomhquw33[address] [place] [address]Dr. Lizandro Hemphill MCH (RBC) [Entitic mass] 29.5 pg Normal 26.7-34.0 The [facility] Comment on above: Performed By: #### C BC ####[facility] Idstxpdgft1723 [place] [address]Dr. Lizandro Hemphill MCHC (RBC) [Mass/Vol] 32.9 g/dL Normal 29.9-35.2 The [facility] Comment on above: Performed By: #### C BC ####[facility] Gyxmvzazqr4511 [place] [id number]. Lizandro Hemphill MCV (RBC) [Entitic vol] 89.8 fL Normal 81.0-99.0 The [facility] Comment on above: Performed By: #### C BC ####[facility] Wyiqntizkz0114 [place] [id number]. Lizandro Hemphill MONO # 1.3 103/ul Critically high 0.3-0.[address] [facility] Comment on above: Performed By: #### C BC ####[facility] Hccasgdsew[address] [place], [place] [address]Dr. Lizandro Hemphill Monocytes/100 WBC (Bld) 10.5 % Normal 1.7-12.0 The [facility] Comment on above: Performed By: #### C BC ####[facility] Adudyuotch87[address] [place], [place] [address]Dr. Lizandro Hemphill NEUT # 9.4 103/ul Critically high 1.4-6.[address] [facility] Comment on above: Performed By: #### C BC ####[facility] Ppdtxtvwwb[address] [place], [place] [address]Dr. Lizandro Hemphill Neutrophils/100 WBC (Bld) 75.0 % Normal 43.0-75.0 The [facility] Comment on above: Performed By: #### C BC ####[facility] Kniautafpt[address] [place], [place] [address]Dr. Lizandro Hemphill Platelet mean volume (Bld) [Entitic vol] 10.4 fL Normal 9.5-13.5 The [facility] Comment on above: Performed By: #### C BC ####[facility] Iejfwthdzg334[address] [place], [place] [address]Dr. Lizandro Hemphill PLT 211 103/ul Normal 150-450 The [facility] Comment on above: Performed By: #### C BC ####[facility] Xvkdjredfl1928[address] [place], [place] [address]Dr. Lizandro Hemphill RBC 3.22 106/ul Critically low 4.20-5.[address] [facility] Comment on above: Performed By: #### C BC ####[facility] Dgicfzbeec4326 [place] [id number]. Lizandro Hemphill WBC 12.5 103/ul Critically high 4.0-11.0 The [facility] Comment on above: Performed By: #### C BC ####[facility] Rmhezmoljg6215 [place] [id number]. Lizandro Hemphill BASO # 0.0 103/ul Normal 0.0-0.1 The [facility] Comment on above: Performed By: #### C BC ####[facility] Uxyavstgti1026[address] [place], [place] [address]Dr. Lizandro Hemphill Basophils/100 WBC (Bld) 0.2 % Normal 0.2-2.0 The [facility] Comment on above: Performed By: #### C BC ####[facility] Iyyrkqecrn50[address] [place], [place] [address]Dr. Lizandro Hemphill EO # 0.0 103/ul Normal 0.0-0.7 The [facility] Comment on above: Performed By: #### C BC ####[facility] Tjaeefksly[address] [place], [place] [address]Dr. Lizandro Hemphill Eosinophils/100 WBC (Bld) 0.0 % Critically low 0.9-7.0 The [facility] Comment on above: Performed By: #### C BC ####[facility] Jfaxthbzqp3232[address] [place], [place] [address]Dr. Lizandro Hemphill Erythrocyte distribution width (RBC) [Ratio] 16.2 % Critically high 11.0-15.0 The [facility] Comment on above: Performed By: #### C BC ####[facility] Yijclreqtn9466[address] [place], [place] [address]Dr. Lizandro Hemphill Hematocrit (Bld) [Volume fraction] 26.3 % Critically low 36.0-48.0 The [facility] Comment on above: Performed By: #### C BC ####[facility] Ipcsmuoamu8[address] [place], [place] [address]Dr. Lizandro Hemphill Hemoglobin (Bld) [Mass/Vol] 8.9 g/dL Critically low 12.0-16.0 The [facility] Comment on above: Performed By: #### C BC ####[facility] Ezhhbgjrjb9738 [place] [id number]. Lizandro Hemphill IG # 0.08 10e3/ul Critically high 0.00-0.03 [facility] Comment on above: Performed By: #### C BC ####[facility] Nmjdvggydx0562 [place] [id number]. Lizandro Hemphill IG % 0.8 % Critically high 0.0-0.[address] [facility] Comment on above: Performed By: #### C BC ####[facility] Wartgcqhtm66[address] [place] [address]Dr. Lizandro Hemphill LYMPH # 0.9 103/ul Critically low 1.2-3.8 [facility] Comment on above: Performed By: #### C BC ####[facility] Otivpzkwbx55[address] [place] [address]Dr. Lizandro Hemphill Lymphocytes/100 WBC (Bld) 8.8 % Critically low 20.5-60.0 [place] Comment on above: Performed By: #### C BC ####[facility] Mgljtpscav4[address] [place] [address]Dr. Lizandro Hemphill MANUAL DIFF REQ NO Normal The [facility] Comment on above: Performed By: #### C BC ####[facility] Gouqjeoldn18[address] [place] [address]Dr. Lizandro Hemphill MCH (RBC) [Entitic mass] 30.1 pg Normal 26.7-34.0 [place] Comment on above: Performed By: #### C BC ####[facility] Pkwamwiemi[address] [place], [place] [address]Dr. Lizandro Hemphill MCHC (RBC) [Mass/Vol] 33.8 g/dL Normal 29.9-35.2 The [facility] Comment on above: Performed By: #### C BC ####[facility] Gsldnfpjki5706 [place] [address]Dr. Lizandro Hemphill MCV (RBC) [Entitic vol] 88.9 fL Normal 81.0-99.0 [place] Comment on above: Performed By: #### C BC ####[facility] Xahiyxsivm1334 [place] [id number]. Lizandro Hemphill MONO # 1.0 103/ul Critically high 0.3-0.[address] [facility] Comment on above: Performed By: #### C BC ####[facility] Sqkgauxgba8831 [place] [id number]. Lizandro Hemphill Monocytes/100 WBC (Bld) 10.1 % Normal 1.7-12.0 The [facility] Comment on above: Performed By: #### C BC ####[facility] Tkyjaarplc3198 [place] [id number]. Lizandro Hemphill NEUT # 8.1 103/ul Critically high 1.4-6.[address] [facility] Comment on above: Performed By: #### C BC ####[facility] Bjlkgwccka[address] [place], [place] [address]Dr. Lizandro Hemphill Neutrophils/100 WBC (Bld) 80.1 % Critically high 43.0-75.0 The [facility] Comment on above: Performed By: #### C BC ####[facility] Kyctscujtl2772 [place] [id number]. Lizandro Hemphill Platelet mean volume (Bld) [Entitic vol] 10.5 fL Normal 9.5-13.5 The [facility] Comment on above: Performed By: #### C BC ####[facility] Rknfydybvt6623 [place] [id number]. Lizandro Hemphill PLT 189 103/ul Normal 150-450 The [facility] Comment on above: Performed By: #### C BC ####[facility] Smyjnwqiuk0573 [place] [id number]. Lizandro Hemphill RBC 2.96 106/ul Critically low 4.20-5.[address] [facility] Comment on above: Performed By: #### C BC ####[facility] Ucyxwoqhbw4725 [place] [id number]. Lizandro Hemphill WBC 10.1 103/ul Normal 4.0-11.0 The [facility] Comment on above: Performed By: #### C BC ####[facility] Mqeoukrbmk0554 [place] [address]Dr. Lizandro Hemphill PROF 14(COMP METB)on 022 Albumin [Mass/Vol] 2.6 g/dL Critically low 3.4-5.0 [facility] Comment on above: Performed By: #### C MP ####[facility] Lerjslwocl7987 [place] [address]Dr. Lizandro Hemphill Albumin/Globulin [Mass ratio] 0.9 {ratio} Normal [place] Comment on above: Performed By: #### C MP ####[facility] Buwtwfsgsz6[address] [place], [place] [address]Dr. Lizandro Hemphill ALP [Catalytic activity/Vol] 62 U/L Normal 46-116 [place] Comment on above: Performed By: #### C MP ####[facility] Jnwxovpmwi15[address] [place], [place] [address]Dr. Lizandro Hemphill ALT [Catalytic activity/Vol] 22 U/L Normal 14-59 [place] Comment on above: Performed By: #### C MP ####[facility] Vaehlzlufd[address] [place], [place] [address]Dr. Lizandro Hemphill Anion gap [Moles/Vol] 10.7 mmol/L Normal [place] Comment on above: Performed By: #### C MP ####[facility] Pqhxfxnlwa47[address] [place], [place] [address]Dr. Lizandro Hemphill AST [Catalytic activity/Vol] 26 U/L Normal 15-37 [place] Comment on above: Performed By: #### C MP ####[facility] Lszzgqcuoe6364[address] [place], [place] [address]Dr. Lizandro Hemphill Bilirubin [Mass/Vol] 0.2 mg/dL Normal 0.2-1.0 [place] Comment on above: Performed By: #### C MP ####[facility] Uctasfamia6364[address] [place], [place] [address]Dr. Lizandro Hemphill Calcium [Mass/Vol] 7.6 mg/dL Critically low 8.5-10.1 [facility] Comment on above: Performed By: #### C MP ####[facility] Aorvbeanph4163 [place] [id number]. Lizandro Hemphill Chloride [Moles/Vol] 109 mmol/L Critically high 98-107 The [facility] Comment on above: Performed By: #### C MP ####[facility] Uxgoeuopqs8716 [place] [id number]. Lizandro Hemphill CO2 [Moles/Vol] 25.0 mmol/L Normal 21.0-32.0 The [facility] Comment on above: Performed By: #### C MP ####[facility] Xozpxcmyfd8345 [place] [id number]. Lizandro Joby Creatinine [Mass/Vol] 0.75 mg/dL Normal 0.55-1.02 The [facility] Comment on above: Performed By: #### C MP ####[facility] Wdamtbmdbs8994 [place] [address]Dr. Lizandro Joby EGFR-AF CITIZEN OF [place] >60 Normal >=60 The [facility] Comment on above: Performed By: #### C MP ####[facility] Ubsyzagnyf8969 [place] [address]Dr. Lizandro Joby EGFR-NON AF CITIZEN OF [place] >60 Normal >=60 The [facility] Comment on above: Performed By: #### C MP ####[facility] Homvpnhsbr4257 [place] [address]Dr. Lizandro Joby Globulin (S) [Mass/Vol] 2.8 g/dL Normal The [facility] Comment on above: Performed By: #### C MP ####[facility] Jyifubkata8495 [place] [id number]. Lizandro Joby Glucose [Mass/Vol] 121 mg/dL Critically high 74-106 [facility] Comment on above: Performed By: #### C MP ####[facility] Iyaikbmisv2075 [place] [address]Dr. Lizandro Hemphill Potassium [Moles/Vol] 3.7 mmol/L Normal 3.5-5.1 The [facility] Comment on above: Performed By: #### C MP ####[facility] Wqhkjiushs[address] [place], [place] [address]Dr. Lizandro Hemphill Protein [Mass/Vol] 5.4 g/dL Critically low 6.4-8.2 Th e [facility] Comment on above: Performed By: #### C MP ####[facility] Cwzksjwihe0095 [place] [address]Dr. Lizandro Hemphill Sodium [Moles/Vol] 141 mmol/L Normal 136-145 [facility] Comment on above: Performed By: #### C MP ####[facility] Iwnaaveqws5749 [place] [address]Dr. Lizandro Hemphill Urea nitrogen [Mass/Vol] 18.0 mg/dL Normal 7.0-18.0 [place] Comment on above: Performed By: #### C MP ####[facility] Eopgkvkpdd5150[address] [place], [place] [address]Dr. Lizandro Hemphill Urea nitrogen/Creatinin e [Mass ratio] 24.0 mg/mg Normal [place] Comment on above: Performed By: #### C MP ####[facility] Xuczoopqqa0138[address] [place], [place] [address]Dr. Lizandor Hemphill PROTIMEon 01-26-2022 INR Coag (PPP) [Relative time] 1.91 {INR} Normal [place] Comment on above: Performed By: #### P TT, PT ####[facility] Ktflzkajeq44[address] [place], [place] [address]Dr. Lizandro Hemphill INR GUIDELINES SEE BELOW Normal [facility] Comment on above: Result Comment: GUEVARA RED INR: 2.0 - 3.0 CONDITIONS NOT LISTED BELOW 2.5 - 3.5 FOR PROSTHETIC HEART VALVE REPLACEMENT 2.5 - 3.5 RECURRENT THROMBOSIS Performed By: #### P TT, PT ####[facility] Jvdqnnopoy1406[address] [place], [place] [address]Dr. Lizandro Hemphill PT Coag (PPP) [Time] 19.8 s Critically high 9.0-11.6 [place] Comment on above: Performed By: #### P TT, PT ####[facility] Wgxxubwjds[address]01[address] [place], [place] [address]Dr. Lizandro Hemphill PTTon 01-26-2022 aPTT Coag (Bld) [Time] 27.9 s Normal 22.3-36.2 The [facility] Comment on above: Performed By: #### P TT, PT ####[facility] Oiyycoxyxf3[address] [place], [place] [address]Dr. Lizandro Hemphill AMYLASEon 01-25-2022 Amylase [Catalytic activity/Vol] 82 U/L Normal 25-115 The [facility] Comment on above: Performed By: #### A MY, LIPA, BNP, HSTROPN, CMP ####[facility] Rehbbkajhd48[address] [place], [place] [address]Dr. Lizandro Hemphill BNPon 01-25-2022 Natriuretic peptide B (Bld) [Mass/Vol] 152.0 pg/mL Normal <=900.0 The [facility] Comment on above: Performed By: #### A MY, LIPA, BNP, HSTROPN, CMP ####[facility] Lisuvmtbts4137[address] [place], [place] [address]Dr. Lizandro Hemphill CBC AUTO DIFFon 01-25-2022 BASO # 0.0 103/ul Normal 0.0-0.1 [place] Comment on above: Performed By: #### C BC ####[facility] Areuuzzgsa5706[address] [place], [place] [address]Dr. Lizandro Hemphill Basophils/100 WBC (Bld) 0.3 % Normal 0.2-2.0 The [facility] Comment on above: Performed By: #### C BC ####[facility] Tcrjcsdvza899[address] [place], [place] [address]Dr. Lizandro Hemphill EO # 0.0 103/ul Normal 0.0-0.7 The [facility] Comment on above: Performed By: #### C BC ####[facility] Lhxcicyrgd9958[address] [place], [place] [address]Dr. Lizandro Hemphill Eosinophils/100 WBC (Bld) 0.0 % Critically low 0.9-7.0 The [facility] Comment on above: Performed By: #### C BC ####[facility] Djrblovvmm108[address] [place], [place] [address]Dr. Lizandro Hemphill Erythrocyte distribution width (RBC) [Ratio] 17.6 % Critically high 11.0-15.0 [place] Comment on above: Performed By: #### C BC ####[facility] Fkeenacstq8007 [place] [address]DrCiro Hemphill Hematocrit (Bld) [Volume fraction] 16.8 % Critically low 36.0-48.0 [place] Comment on above: Performed By: #### C BC ####[facility] Uewfsnpwdo3935[address] [place], [place] [address]DrCiro Hemphill Hemoglobin (Bld) [Mass/Vol] 5.7 g/dL Critically low 12.0-16.0 [place] Comment on above: Performed By: #### C BC ####[facility] Pegowswwox0763[address] [place], [place] [address]DrCiro Hemphill IG # 0.11 10e3/ul Critically high 0.00-0.03 [facility] Comment on above: Performed By: #### C BC ####[facility] Wgjijjiyze[address] [place], [place] [address]DrCiro Hemphill IG % 0.9 % Critically high 0.0-0.5 [facility] Comment on above: Performed By: #### C BC ####[facility] Jwrzbwwdhk132[address] [place], [place] [address]DrCiro Hemphill LYMPH # 0.7 103/ul Critically low 1.2-3.8 [facility] Comment on above: Performed By: #### C BC ####[facility] Mllzxqclmh4[address] [place], [place] [address]DrCiro Hemphill Lymphocytes/100 WBC (Bld) 5.7 % Critically low 20.5-60.0 The [facility] Comment on above: Performed By: #### C BC ####[facility] Orofcqakfb3534[address] [place], [place] [address]DrCiro Hemphill MANUAL DIFF REQ NO Normal The [facility] Comment on above: Performed By: #### C BC ####[facility] Ymcljcqmmf1336[address] [place], [place] [address]DrCiro Hemphill MCH (RBC) [Entitic mass] 29.5 pg Normal 26.7-34.0 The [facility] Comment on above: Performed By: #### C BC ####[facility] Vtfketashv5713 [place] [address]Dr. Lizandro Hemphill MCHC (RBC) [Mass/Vol] 33.9 g/dL Normal 29.9-35.2 [facility] Comment on above: Performed By: #### C BC ####[facility] Rllixtzpvq6156[address] [place], [place] [address]Dr. Lizandro Joby MCV (RBC) [Entitic vol] 87.0 fL Normal 81.0-99.0 [facility] Comment on above: Performed By: #### C BC ####[facility] Vxupiyyjgo4548[address] [place], [place] [address]Dr. Lizandro Hemphill MONO # 0.1 103/ul Critically low 0.3-0.8 [facility] Comment on above: Performed By: #### C BC ####[facility] Txjpycynpa724[address] [place], [place] [address]Dr. Lizandro Hemphill Monocytes/100 WBC (Bld) 0.9 % Critically low 1.7-12.0 The [facility] Comment on above: Performed By: #### C BC ####[facility] Ctwsezfsyy182[address] [place], [place] [address]Dr. Shanikaannie Joby NEUT # 10.7 103/ul Critically high 1.4-6.5 [facility] Comment on above: Performed By: #### C BC ####[facility] Dwkvbajldh9425[address] [place], [place] [address]Dr. Lizandro Hemphill Neutrophils/100 WBC (Bld) 92.2 % Critically high 43.0-75.0 [facility] Comment on above: Performed By: #### C BC ####[facility] Qnjzsdlson2977[address] [place], [place] [address]Dr. Lizandro Hemphill Platelet mean volume (Bld) [Entitic vol] 10.7 fL Normal 9.5-13.5 [facility] Comment on above: Performed By: #### C BC ####[facility] Qdlkfvwwki0473 [place] [id number]. Lizandro Hemphill PLT 217 103/ul Normal 150-450 [facility] Comment on above: Performed By: #### C BC ####[facility] Crogsqnjyr7417 [place] [id number]. Lizandro Hemphill RBC 1.93 106/ul Critically low 4.20-5.[address] [facility] Comment on above: Performed By: #### C BC ####[facility] Nsjtwxroqs[address] [place], [place] [address]Dr. Lizandro Hemphill WBC 11.6 103/ul Critically high 4.0-11.0 [facility] Comment on above: Performed By: #### C BC ####[facility] Merquwmgdi5[address] [place], [place] [address]Dr. Lizandro Hemphill BASO # 0.1 103/ul Normal 0.0-0.1 [facility] Comment on above: Performed By: #### C BC ####[facility] Frubngyacl7864[address] [place], [place] [address]Dr. Lizandro Joby Basophils/100 WBC (Bld) 0.6 % Normal 0.2-2.0 [facility] Comment on above: Performed By: #### C BC ####[facility] Bmnghuwgij[address] [place], [place] [address]DrCiro Lizandro Hemphill EO # 0.0 103/ul Normal 0.0-0.7 [facility] Comment on above: Performed By: #### C BC ####[facility] Bjbuvruntd[address] [place], [place] [address]Dr. Lizandro Joby Eosinophils/100 WBC (Bld) 0.3 % Critically low 0.9-7.0 The [facility] Comment on above: Performed By: #### C BC ####[facility] Hhmtzzaeog[address] [place], [place] [address]DrCiro Lizandro Joby Erythrocyte distribution width (RBC) [Ratio] 17.4 % Critically high 11.0-15.0 [place] Comment on above: Performed By: #### C BC ####[facility] [address]jatlsfeqv[address] [place], [place] [address]DrCiro Hemphill Hematocrit (Bld) [Volume fraction] 17.1 % Critically low 36.0-48.0 [facility] Comment on above: Performed By: #### C BC ####[facility] Mnxbeynbqb8641 [place] [address]DrCiro Hemphill Hemoglobin (Bld) [Mass/Vol] 5.7 g/dL Critically low 12.0-16.0 [facility] Comment on above: Performed By: #### C BC ####[facility] Mprzwxzgkm2983 [place] [address]DrCiro Hemphill IG # 0.10 10e3/ul Critically high 0.00-0.[address] [facility] Comment on above: Performed By: #### C BC ####[facility] Lrartxsqvl7191 [place] [address]DrCiro Hemphill IG % 0.9 % Critically high 0.0-0.[address] [facility] Comment on above: Performed By: #### C BC ####[facility] Bhacwtwuls[address] [place], [place] [address]DrCiro Hemphill LYMPH # 1.6 103/ul Normal 1.2-3.8 [facility] Comment on above: Performed By: #### C BC ####[facility] Oijuttudii0774 [place] [address]DrCiro Hemphill Lymphocytes/100 WBC (Bld) 14.4 % Critically low 20.5-60.0 [facility] Comment on above: Performed By: #### C BC ####[facility] Mkekykkkvp5135 [place] [address]DrCiro Hemphill MANUAL DIFF REQ NO Normal The [facility] Comment on above: Performed By: #### C BC ####[facility] Virpgtvzas[address] [place], [place] [address]DrCiro Hemphill MCH (RBC) [Entitic mass] 29.2 pg Normal 26.7-34.0 [facility] Comment on above: Performed By: #### C BC ####[facility] Vsktzstova[address] [place], [place] [address]DrCiro Hemphill MCHC (RBC) [Mass/Vol] 33.3 g/dL Normal 29.9-35.2 [facility] Comment on above: Performed By: #### C BC ####[facility] Gyzpckgdsq9374 [place] [id number]. Lizandro Hemphill MCV (RBC) [Entitic vol] 87.7 fL Normal 81.0-99.0 [facility] Comment on above: Performed By: #### C BC ####[facility] Grvpzvvdef1724 [place] [id number]. Lizandro Joby MONO # 0.9 103/ul Critically high 0.3-0.[address] [facility] Comment on above: Performed By: #### C BC ####[facility] Xgyfuzesgf9523 [place] [address]Dr. Lizandro Hemphill Monocytes/100 WBC (Bld) 8.1 % Normal 1.7-12.0 [facility] Comment on above: Performed By: #### C BC ####[facility] Npkayoutoh[address] [place], [place] [address]Dr. Shanikaannie Joby NEUT # 8.5 103/ul Critically high 1.4-6.[address] [facility] Comment on above: Performed By: #### C BC ####[facility] Egilvhccam[address] [place], [place] [address]Dr. Lizandro Joby Neutrophils/100 WBC (Bld) 75.7 % Critically high 43.0-75.0 [facility] Comment on above: Performed By: #### C BC ####[facility] Jbeokypyvy4983 [place] [id number]. Lizandro Joby Platelet mean volume (Bld) [Entitic vol] 10.9 fL Normal 9.5-13.5 [facility] Comment on above: Performed By: #### C BC ####[facility] Kbcweguhmn9514 [place] [id number]. Shanikaannie Joby PLT 232 103/ul Normal 150-450 [facility] Comment on above: Performed By: #### C BC ####[facility] Vznelgxgwj[address] [place], [place] [address]Dr. Lizandro Hemphill RBC 1.95 106/ul Critically low 4.20-5.[address] [facility] Comment on above: Performed By: #### C BC ####[facility] Zrlkniwsyh9068 [place] [address]Dr. Lizandro Hemphill WBC 11.3 103/ul Critically high 4.0-11.0 The [facility] Comment on above: Performed By: #### C BC ####[facility] Jlhhtshnip8152 [place] [address]Dr. Lizandro Hemphill CBC W MANUAL DIFFon 01-26-20 22 ANISOCYTOSIS SLIGHT Normal [facility] Comment on above: Performed By: #### C BCMAN ####[facility] Jnlbykuznm[address] [place], [place] [address]Dr. Lizandro Hemphill ATYPICAL LYMPH # Normal The [facility] Comment on above: Performed By: #### C BCMAN ####[facility] Tydipagxzq0277 [place] [address]Dr. Lizandro Hemphill ATYPICAL LYMPH % Normal [facility] Comment on above: Performed By: #### C BCMAN ####[facility] Racifjuymd3793 [place] [address]Dr. Lizandro Hemphill BAND # 0.1 103/ul Normal 0.0-0.3 [facility] Comment on above: Performed By: #### C BCMAN ####[facility] Ruhbxntbdi[address] [place], [place] [address]Dr. Lizandro Hemphill BAND % 1 % Normal 0-5 [facility] Comment on above: Performed By: #### C BCMAN ####[facility] Irmmxhgmoq3139 [place] [address]Dr. Lizandro Hemphill BASOM # 0.00 103/ul Normal 0.00-0.10 [facility] Comment on above: Performed By: #### C BCMAN ####[facility] Pwzozyhdxu2175 [place] [address]Dr. Lizandro Hemphill BASOM % 0.0 % Critically low 0.2-2.0 The [facility] Comment on above: Performed By: #### C BCMAN ####[facility] Bdumookdls3590 [place], [place] [address]Sd. Lizandro Hemphill BLAST # Normal [place] Comment on above: Performed By: #### C BCMAN ####[facility] Pxkorvksbj7898 [place] [id number]. Lizandro Hemphill BLAST % Normal [place] Comment on above: Performed By: #### C BCMAN ####[facility] Scxwaalavq1592 [place] [phone]. Lizandro Hemphill CORRECTED WBC Normal 4.0-11.0 [facility] Comment on above: Performed By: #### C BCMAN ####[facility] Gtqqfbdntm5116 [place] [phone]. Lizandro Hemphill EOS # 0.00 103/ul Normal 0.00-0.70 [place] Comment on above: Performed By: #### C BCMARÍA ####[facility] Fkhsprgmjk0955 [place] [address]Dr. Lizandro Hemphill EOS% 0.0 % Critically low 0.9-7.0 [facility] Comment on above: Performed By: #### C BCMARÍA ####[facility] Ozaitzwcov0928 [place] [id number]. Lizandro Hemphill HCT 28.0 % Critically low 36.0-48.0 [facility] Comment on above: Performed By: #### C BCMARÍA ####[facility] Mrcittyxug9757 [place] [id number]. Lizandro Hemphill HGB 9.6 g/dl Critically low 12.0-16.0 [facility] Comment on above: Performed By: #### C BCMAN ####[facility] Xmyeoraign9352 [place] [phone]. Lizandro Hemphill LYMPHM # 0.77 103/ul Critically low 1.20-3.[address] [facility] Comment on above: Performed By: #### C BCMAN ####[facility] Iyezvvealq4418 [place] [phone]. Lizandro Hemphill LYMPHM% 8.0 % Critically low 20.5-60.0 [facility] Comment on above: Performed By: #### C DERRELL ####[facility] Zvydwtzvlw9929 [place] [phone]. Lizandro Hemphill MCH 30.3 pg Normal 26.7-34.0 [facility] Comment on above: Performed By: #### C DERRELL ####[facility] Elcwbdtgkh4742 [place] [phone]. Lizandro Hemphill MCHC 34.3 g/dl Normal 29.9-35.2 [facility] Comment on above: Performed By: #### C DERRELL ####[facility] Qsswtmeirf1105 [place] [phone]. Lizandro Hemphill MCV 88.3 fL Normal 81.0-99.0 [facility] Comment on above: Performed By: #### C DERRELL ####[facility] Ootflclrle5829 [place] [address]Dr. Lizandro Hemphill METAMYELOCYTE # Normal [facility] Comment on above: Performed By: #### C DERRELL ####[facility] Lxdecykfpk0622 [place] [phone]. Lizandro Hemphill METAMYELOCYTE % Normal [facility] Comment on above: Performed By: #### C DERRELL ####[facility] Psvxceswxl2127 [place] [phone]. Lizandro Hemphill MONOM# 0.10 103/ul Critically low 0.30-0.[address] [facility] Comment on above: Performed By: #### C DERRELL ####[facility] Pnhwidinmm1025 [place] [address]Dr. Lizandro Hemphill MONOM% 1.0 % Critically low 1.7-12.0 [facility] Comment on above: Performed By: #### C DERRELL ####[facility] Xtszeyzicx9105 [place] [address]Dr. Lizandro Hemphill MPV 10.7 fL Normal 9.5-13.5 [facility] Comment on above: Performed By: #### C DERRELL ####[facility] Ojipwnrrny2519 [place] [phone]. Lizandro Hemphill MYELOCYTE # Normal [place] Comment on above: Performed By: #### C BCMARÍA ####[facility] Pwjtnnwejo5881 [place] [phone]. Lizandro Hemphill MYELOCYTE % Normal [facility] Comment on above: Performed By: #### C BCMARÍA ####[facility] Pdljdvoahj1931 [place] [phone]. Lizandro Hemphill NRBC Normal [facility] Comment on above: Performed By: #### C DERRELL ####[facility] Wtnlmgiede1206 [place] [phone]. Lizandro Hemphill PLT 196 103/ul Normal 150-450 [facility] Comment on above: Performed By: #### C DERRELL ####[facility] Bdkusijxps[address] [place], [place] [address]Dr. Lizandro Hemphill RBC 3.17 106/ul Critically low 4.20-5.40 [facility] Comment on above: Performed By: #### C DERRELL ####[facility] Sjvjudnjox1319 [place] [phone]. Lizandro Hemphill RDW 16.0 % Critically high 11.0-15.[address] [facility] Comment on above: Performed By: #### C DERRELL ####[facility] Mugsmaznjh[address] [place], [place] [address]Dr. Lizandro Hemphill SEG # 8.64 103/ul Critically high 1.40-6.50 The [facility] Comment on above: Performed By: #### C DERRELL ####[facility] Vkymmykvrm[address] [place], [place] [address]Dr. Lizandro Hemphill SEG % 90.0 % Critically high 43.0-75.[address] [facility] Comment on above: Performed By: #### C DERRELL ####[facility] Bwbmezauea0513 [place] [phone]. Lizandro Hemphill WBC 9.6 103/ul Normal 4.0-11.0 [facility] Comment on above: Performed By: #### C DERRELL ####[facility] Hytasigmcu2307 [place], [place] [address]Ew. Liz[address] CT HEAD WO CONon 01-25-2022 CT HEAD WO CON Normal The [facility] CULTURE URINEon 01-25-2022 CULTURE URINE Culture Observations : NO GROWTH. Normal [facility] Comment on above: Performed By: #### U RCX ####[facility] Jqqapnkdog6077 [place], [place] [address]Wl. Lizandro Hemphill Covid-19 PCR (CVDTB)on SARS-CoV-2 (COVID-19) RNA VERITO+probe Ql (Unsp spec) Not detected Normal NOT DETECTED [facility] Comment on above: Result Comment: When [...] for this test is supported by the [employer] of Health and Human Service's declaration that [...] be used). Performed By: #### C VDTBH ####[facility] Ambmkalmkz1509 [place], [place] [address]Mj. Lizandro Hemphill FERRITINon 01-25-2022 Ferritin [Mass/Vol] 26.0 ng/mL Normal 8.0-252.0 [facility] Comment on above: Performed By: #### F ETIBC, FERR, B12FOL ####[facility] Mwizteiwbb3626 [place], [place] [address]Yw. Lizandro Hemphill IRON AND TIBCon 01-25-2022 % SATURATION 2.5 % Normal [facility] Comment on above: Performed By: #### F ETIBC, FERR, B12FOL ####[facility] Idymwojruo1593 [place] [id number]. Lizandro Hemphill Iron [Mass/Vol] 9.0 ug/dL Critically low 50.0-170.0 [facility] Comment on above: Performed By: #### F ETIBC, FERR, B12FOL ####[facility] Zdcdeceais4311 [place] [address]Dr. Lizandro Hemphill TIBC DIRECT 356.0 ug/dL Normal 250.0-450.0 [facility] Comment on above: Performed By: #### F ETIBC, FERR, B12FOL ####[facility] Ipmvcrtocv9259 [place] [address]Dr. Lizandro Hemphill LIPASEon 01-25-2022 Lipase [Catalytic activity/Vol] 129.0 U/L Normal 73.0-393.0 [place] Comment on above: Performed By: #### A MY, LIPA, BNP, HSTROPN, CMP ####[facility] Gvvvbxnyxe7710 [place] [address]Dr. Lizandro Hemphill PROF 14(COMP METB)on 022 Albumin [Mass/Vol] 3.1 g/dL Critically low 3.4-5.0 [facility] Comment on above: Performed By: #### A MY, LIPA, BNP, HSTROPN, CMP ####[facility] Hcnxkcimqg7330 [place] [address]Dr. Lizandro Hemphill Albumin/Globulin [Mass ratio] 1.1 {ratio} Normal [place] Comment on above: Performed By: #### A MY, LIPA, BNP, HSTROPN, CMP ####[facility] Blnctperrz9941 [place] [address]Dr. Lizandro Hemphill ALP [Catalytic activity/Vol] 69 U/L Normal 46-116 [place] Comment on above: Performed By: #### A MY, LIPA, BNP, HSTROPN, CMP ####[facility] Cmzwlkalww5780 [place] [address]Dr. Lizandro Hemphill ALT [Catalytic activity/Vol] 24 U/L Normal 14-59 [facility] Comment on above: Performed By: #### A MY, LIPA, BNP, HSTROPN, CMP ####[facility] Cawwpuzwel2493 [place] [address]Dr. Lizandro Hemphill Anion gap [Moles/Vol] 15.6 mmol/L Normal [place] Comment on above: Performed By: #### A MY, LIPA, BNP, HSTROPN, CMP ####[facility] Izpdbaamkh2708 [place] [address]Dr. Lizandro Hemphill AST [Catalytic activity/Vol] 23 U/L Normal 15-37 [facility] Comment on above: Performed By: #### A MY, LIPA, BNP, HSTROPN, CMP ####[facility] Nndxyefxel7123 [place] [address]Dr. Lizandro Hemphill Bilirubin [Mass/Vol] 0.2 mg/dL Normal 0.2-1.0 [place] Comment on above: Performed By: #### A MY, LIPA, BNP, HSTROPN, CMP ####[facility] Jnbpeysffr7301 [place] [address]Dr. Lizandro Hemphill Calcium [Mass/Vol] 9.2 mg/dL Normal 8.5-10.1 [facility] Comment on above: Performed By: #### A MY, LIPA, BNP, HSTROPN, CMP ####[facility] Omvniccvov2267 [place] [address]Dr. Lizandro Hemphill Chloride [Moles/Vol] 104 mmol/L Normal 98-107 [facility] Comment on above: Performed By: #### A MY, LIPA, BNP, HSTROPN, CMP ####[facility] Andfvlraif7501 [place] [address]Dr. Lizandro Hemphill CO2 [Moles/Vol] 22.9 mmol/L Normal 21.0-32.0 [facility] Comment on above: Performed By: #### A MY, LIPA, BNP, HSTROPN, CMP ####[facility] Paudatchbn[address] [place], [place] [address]Dr. Lizandro Hemphill Creatinine [Mass/Vol] 1.09 mg/dL Critically high 0.55-1.02 [place] Comment on above: Performed By: #### A MY, LIPA, BNP, HSTROPN, CMP ####[facility] Qdhnawnsqa3540 [place] [address]Dr. Lizandro Hemphill EGFR-AF CITIZEN OF [place] >60 Normal >=60 [facility] Comment on above: Performed By: #### A MY, LIPA, BNP, HSTROPN, CMP ####[facility] Aeacvyjdvl2692 [place] [address]Dr. Lizandro Hemphill EGFR-NON AF CITIZEN OF [place] 51 mL/min/1.73m2 Critically low >=60 [place] Comment on above: Performed By: #### A MY, LIPA, BNP, HSTROPN, CMP ####[facility] Ripxgboyjh7631 [place] [address]Dr. Lizandro Hemphill Globulin (S) [Mass/Vol] 2.9 g/dL Normal [place] Comment on above: Performed By: #### A MY, LIPA, BNP, HSTROPN, CMP ####[facility] Nilzzmqfit2177 [place] [address]Dr. Lizandro Hemphill Glucose [Mass/Vol] 112 mg/dL Critically high 74-106 [facility] Comment on above: Performed By: #### A MY, LIPA, BNP, HSTROPN, CMP ####[facility] Pzbntwedua9741 [place] [address]Dr. Lizandro Hemphill Potassium [Moles/Vol] 3.5 mmol/L Normal 3.5-5.1 [place] Comment on above: Performed By: #### A MY, LIPA, BNP, HSTROPN, CMP ####[facility] Ttegdugxjh4037 [place] [address]Dr. Lizandro Hemphill Protein [Mass/Vol] 6.0 g/dL Critically low 6.4-8.[address] [facility] Comment on above: Performed By: #### A MY, LIPA, BNP, HSTROPN, CMP ####[facility] Ijhttxgchi1772 [place] [address]Dr. Lizandro Hemphill Sodium [Moles/Vol] 139 mmol/L Normal 136-145 The [facility] Comment on above: Performed By: #### A MY, LIPA, BNP, HSTROPN, CMP ####[facility] Kfpejtwkbv9887 [place] [address]Dr. Lizandro Hemphill Urea nitrogen [Mass/Vol] 30.0 mg/dL Critically high 7.0-18.0 [place] Comment on above: Performed By: #### A MY, LIPA, BNP, HSTROPN, CMP ####[facility] Wvphhlhloc0966 [place] [address]Dr. Lizandro Hemphill Urea nitrogen/Creatinin e [Mass ratio] 27.5 mg/mg Normal [place] Comment on above: Performed By: #### A MY, LIPA, BNP, HSTROPN, CMP ####[facility] Yjtpmqdcii[address] [place], [place] [address]Dr. Lizandro Hemphill PROTIMEon 01-25-2022 INR Coag (PPP) [Relative time] 1.48 {INR} Normal [place] Comment on above: Performed By: #### P TT, PT ####[facility] Dnpkpvkuuv[address] [place], [place] [address]Dr. Lizandro Hemphill INR GUIDELINES SEE BELOW Normal [facility] Comment on above: Result Comment: GUEVARA RED INR: 2.0 - 3.0 CONDITIONS NOT LISTED BELOW 2.5 - 3.5 FOR PROSTHETIC HEART VALVE REPLACEMENT 2.5 - 3.5 RECURRENT THROMBOSIS Performed By: #### P TT, PT ####[facility] Ynascscqcj[address] [place], [place] [address]Dr. Lizandro Hemphill PT Coag (PPP) [Time] 15.6 s Critically high 9.0-11.6 [place] Comment on above: Performed By: #### P TT, PT ####[facility] Wupyrmecnc[address] [place], [place] [address]Dr. Lizandro Hemphill PTTon 01-25-2022 aPTT Coag (Bld) [Time] 24.9 s Normal 22.3-36.2 [facility] Comment on above: Performed By: #### P TT, PT ####[facility] Wmztqdtjzi7564 [place] [address]Dr. Lizandro Hemphill TROPONIN, HIGH SENSITIVITYon 01-25-2022 HSTROP 8.4 pg/mL Normal 4.0-51.3 [facility] Comment on above: Result Comment: CUT- OFF POINTS HAVE BEEN ESTABLISHED BASED ON THE FOURTH UNIVERSAL DEFINITIONS OF MYOCARDIALINFARCTION. THE UPPER REFERENCE LIMIT (URL) OF TROPONIN, DEFINED THE 99TH PERCENTILE OFcTnI DISTRIBUTION IN A REFERENCE POPULATION, HAS BEEN CONFIRMED THE DECISION THRESHOLDFOR MS DIAGNOSIS. Performed By: #### A MY, LIPA, BNP, HSTROPN, CMP ####[facility] Memkqlqaej4298 [place] [address]Dr. Lizandro Hemphill TYPE AND SCREENon 01-25-2022 TYPE AND SCREEN Negative Normal [facility] Comment on above: Performed By: #### T NS ####[facility] Papkhbepue7030 [place] [address]Dr. Lizandro Hemphill VIT B12 AND FOLATEon 022 Cobalamin (Vitamin B12) [Mass/Vol] 394.0 pg/mL Normal 193.0-986.0 [facility] Comment on above: Performed By: #### F ETIBC, FERR, B12FOL ####[facility] Axkshxzvta0478 [place] [address]Dr. Lizandro Hemphill FOLATE 18.00 ng/mL Normal 8.60-58.90 [facility] Comment on above: Performed By: #### F ETIBC, FERR, B12FOL ####[facility] Ordidobbke7267 [place] [address]Dr. Shanikaannie Hemphill XR CHEST 1 Von 01-25-2022 XR CHEST 1 V Normal [facility] PROTIMEon 01-17-2022 INR Coag (PPP) [Relative time] {INR} Normal [facility] Comment on above: Performed By: #### P T ####[facility] Yanfzegcrx0700 [place] [address]Dr. Lizandro Hemphill INR GUIDELINES SEE BELOW Normal [facility] Comment on above: Result Comment: GUEVARA RED INR: 2.0 - 3.0 CONDITIONS NOT LISTED BELOW 2.5 - 3.5 FOR PROSTHETIC HEART VALVE REPLACEMENT 2.5 - 3.5 RECURRENT THROMBOSIS Performed By: #### P T ####[facility] Wvxddvbrln1909 [place], [place] [address]Fe. Lizandro Hemphill PT Coag (PPP) [Time] 9.6 s Normal 9.0-11.6 [place] Comment on above: Performed By: #### P T ####[facility] Qbbpewxiye3657 [place] [id number]. Lizandro Hemphill Covid-19 PCR ([facility])on 12-25 SARS-CoV-2 (COVID-19) RNA VERITO+probe Ql (Unsp spec) Not detected Normal NOT DETECTED [facility] Comment on above: Result Comment: This test is not yet approved or cleared by the [place] FDA. When there are no FDA-approved or cleared tests available, and other criteria are met, FDA can make tests available under an emergency access mechanism called an Emergency Use Authorization (EUA). The EUA for this test is supported by the [place] of Health and Human Service's (HHS's) declaration [...] with SARS-CoV-2. Performed By: #### C VDTBH ####[facility] Vjieiivyoe5515 [place] [id number]. Lizandro Hemphill PROTIMEon 12-06-2021 INR Coag (PPP) [Relative time] {INR} Normal [facility] Comment on above: Performed By: #### P T ####[facility] Tpodisawxz1227 [place], [place] [address]Pq. Lizandro Hemphill INR GUIDELINES SEE BELOW Normal [facility] Comment on above: Result Comment: GUEVARA RED INR: 2.0 - 3.0 CONDITIONS NOT LISTED BELOW 2.5 - 3.5 FOR PROSTHETIC HEART VALVE REPLACEMENT 2.5 - 3.5 RECURRENT THROMBOSIS Performed By: #### P T ####[facility] Nsvmcbcpcv6282 [place] [id number]. Lizandro Hemphill PT Coag (PPP) [Time] 9.5 s Normal 9.0-11.6 [facility] Comment on above: Performed By: #### P T ####[facility] Qwjyyabplt3131 [place] [address]Dr. Lizandro Hemphill Covid-19 PCR ([facility]on SARS-CoV-2 (COVID-19) RNA VERITO+probe Ql (Unsp spec) Not detected Normal NOT DETECTED [facility] Comment on above: Result Comment: This test is not yet approved or cleared by the [place] FDA. When there are no FDA-approved or cleared tests available, and other criteria are met, FDA can make tests available under an emergency access mechanism called an Emergency Use Authorization (EUA). The EUA for this test is supported by the [place] of Health and Human Service's (HHS's) declaration [...] with SARS-CoV-2. Performed By: #### C VDTBH ####[facility] Rivubptobk7328 [place], [place] [address]Jk. Lizandro Hemphill CBC AUTO DIFFon 10-31-2021 BASO # 0.1 103/ul Normal 0.0-0.1 [facility] Comment on above: Performed By: #### C BC ####[facility] Lcsdpthaxj3073 [place] [address]Dr. Lizandro Hemphill Basophils/100 WBC (Bld) 0.7 % Normal 0.2-2.0 [place] Comment on above: Performed By: #### C BC ####[facility] Satfhyofbn3482 [place] [address]Dr. Lizandro Hemphill EO # 0.1 103/ul Normal 0.0-0.7 [facility] Comment on above: Performed By: #### C BC ####[facility] Qgujorijto[address] [place], [place] [address]Dr. Lizandro Hemphill Eosinophils/100 WBC (Bld) 0.7 % Critically low 0.9-7.0 [place] Comment on above: Performed By: #### C BC ####[facility] Muhdaenyva[address] [place], [place] [address]Dr. Lizandro Hemphill Erythrocyte distribution width (RBC) [Ratio] 17.5 % Critically high 11.0-15.0 [place] Comment on above: Performed By: #### C BC ####[facility] Qzrgoxlyhj[address] [place], [place] [address]Dr. Lizandro Hemphill Hematocrit (Bld) [Volume fraction] 39.6 % Normal 36.0-48.0 [place] Comment on above: Performed By: #### C BC ####[facility] Ikhoyisprr[address] [place], [place] [address]Dr. Lizandro Hemphill Hemoglobin (Bld) [Mass/Vol] 12.6 g/dL Normal 12.0-16.0 [facility] Comment on above: Performed By: #### C BC ####[facility] Tdulrowelx[address] [place], [place] [address]Dr. Lizandro Hemphill IG # 0.04 10e3/ul Critically high 0.00-0.03 [facility] Comment on above: Performed By: #### C BC ####[facility] Lyitpxnvtc13[address] [place], [place] [address]Dr. Lizandro Hemphill IG % 0.4 % Normal 0.0-0.5 [place] Comment on above: Performed By: #### C BC ####[facility] Gecrnfbfit7817 [place] [address]Dr. Lizandro Joby LYMPH # 1.8 103/ul Normal 1.2-3.8 [place] Comment on above: Performed By: #### C BC ####[facility] Jnijdvalhx7102 [place] [address]Dr. Lizandro Hemphill Lymphocytes/100 WBC (Bld) 17.4 % Critically low 20.5-60.0 [place] Comment on above: Performed By: #### C BC ####[facility] Wgaacopaiz[address] [place] [address]Dr. Lizandro Hemphill MANUAL DIFF REQ NO Normal [facility] Comment on above: Performed By: #### C BC ####[facility] Dtzpitphqy[address] [place], [place] [address]Dr. Lizandro Hemphill MCH (RBC) [Entitic mass] 26.9 pg Normal 26.7-34.0 [place] Comment on above: Performed By: #### C BC ####[facility] Xiiogtktjb99[address] [place], [place] [address]Dr. Lizandro Hemphill MCHC (RBC) [Mass/Vol] 31.8 g/dL Normal 29.9-35.2 [place] Comment on above: Performed By: #### C BC ####[facility] Ooiyazarzv7[address] [place], [place] [address]Dr. Lizandro Hemphill MCV (RBC) [Entitic vol] 84.6 fL Normal 81.0-99.0 [place] Comment on above: Performed By: #### C BC ####[facility] Ejuxhqvzak[address] [place], [place] [address]DrCiro Hemphill MONO # 0.9 103/ul Critically high 0.3-0.8 [facility] Comment on above: Performed By: #### C BC ####[facility] Raqhqklchz19[address] [place] [address]Dr. Lizandro Hemphill Monocytes/100 WBC (Bld) 8.5 % Normal 1.7-12.0 [facility] Comment on above: Performed By: #### C BC ####[facility] Ujlrgxcuel14[address] [place] [address]Dr. Lizandro Hemphill NEUT # 7.5 103/ul Critically high 1.4-6.[address] [facility] Comment on above: Performed By: #### C BC ####[facility] Yhbvbellqn3254 [place] [address]Dr. Lizandro Hemphill Neutrophils/100 WBC (Bld) 72.3 % Normal 43.0-75.0 [facility] Comment on above: Performed By: #### C BC ####[facility] Bvmfbcgzni0809 [place] [address]Dr. Lizandro Hemphill Platelet mean volume (Bld) [Entitic vol] 10.6 fL Normal 9.5-13.5 The [facility] Comment on above: Performed By: #### C BC ####[facility] Ifzyisyeod14[address] [place], [place] [address]Dr. Lizandro Hemphill PLT 356 103/ul Normal 150-450 [facility] Comment on above: Performed By: #### C BC ####[facility] Xdpaztgcgz7[address] [place], [place] [address]Dr. Lizandro Hemphill RBC 4.68 106/ul Normal 4.20-5.40 The [facility] Comment on above: Performed By: #### C BC ####[facility] Bwwxcwwbsz8316[address] [place], [place] [address]Dr. Lizandro Hemphill WBC 10.4 103/ul Normal 4.0-11.0 The [facility] Comment on above: Performed By: #### C BC ####[facility] Gqgufswuui14[address] [place] [address] HEAD WO CONon 10-31-2021 CT HEAD WO CON Normal [facility] PROF CHEM 8 (BAS METB)on Anion gap [Moles/Vol] 13.0 mmol/L Normal [facility] Comment on above: Performed By: #### H STROPN, BMP ####[facility] Oyiaepqpoj52[address] [place] [address]Dr. Lizandro Hemphill Calcium [Mass/Vol] 9.4 mg/dL Normal 8.5-10.1 The [facility] Comment on above: Performed By: #### H RICARDO, BMP ####[facility] Wzudzfyajs9[address] [place] [address]Dr. Lizandro Hemphill Chloride [Moles/Vol] 104 mmol/L Normal 98-107 The [facility] Comment on above: Performed By: #### H RICARDO, BMP ####[facility] Ujzytbpesn[address] [place], [place] [address]Dr. Lizandro Hemphill CO2 [Moles/Vol] 25.7 mmol/L Normal 21.0-32.0 The [facility] Comment on above: Performed By: #### H RICARDO, BMP ####[facility] Uddlcsqkdh6[address] [place], [place] [address]Dr. Lizandro Hemphill Creatinine [Mass/Vol] 0.82 mg/dL Normal 0.55-1.02 The [facility] Comment on above: Performed By: #### H RICARDO, BMP ####[facility] Jbzbnbhwvy[address] [place], [place] [address]Dr. Lizandro Hemphill EGFR-AF CITIZEN [place] >60 Normal >=60 [facility] Comment on above: Performed By: #### H RICARDO, BMP ####[facility] Nixcttctof9[address] [place], [place] [address]Dr. Lizandro Hemphill EGFR-NON AF CITIZEN OF [place] >60 Normal >=60 [facility] Comment on above: Performed By: #### H RICARDO, BMP ####[facility] Whmsbxvble27[address] [place], [place] [address]Dr. Lizandro Hemphill Glucose [Mass/Vol] 105 mg/dL Normal 74-106 The [facility] Comment on above: Performed By: #### H RICARDO, BMP ####[facility] Ygsmvziuuk2104 [place] [address]Dr. Lizandro Hemphill Potassium [Moles/Vol] 3.7 mmol/L Normal 3.5-5.1 [facility] Comment on above: Performed By: #### H RICARDO, BMP ####[facility] Tcguqquycs05[address] [place] [address]Dr. Lizandro Hemphill Sodium [Moles/Vol] 139 mmol/L Normal 136-145 The [facility] Comment on above: Performed By: #### H RICARDO, BMP ####[facility] Rxixozpbee3233 [place] [address]Dr. Lizandro Hemphill Urea nitrogen [Mass/Vol] 15.0 mg/dL Normal 7.0-18.0 [place] Comment on above: Performed By: #### H RICARDO, BMP ####[facility] Oidwamlomu10[address] [place] [address]Dr. Lizandro Hemphill Urea nitrogen/Creatinin e [Mass ratio] 18.3 mg/mg Normal [place] Comment on above: Performed By: #### H RICARDO, ELSA ####[facility] Zyyiiyurqe45[address] [place] [address]Dr. Lizandro Hemphill PROTIMEon 10-31-2021 INR Coag (PPP) [Relative time] 1.35 {INR} Normal [place] Comment on above: Performed By: #### P T ####[facility] Vqkknxdtdl[address] [place], [place] [address]Dr. Lizandro Hemphill INR GUIDELINES SEE BELOW Normal [facility] Comment on above: Result Comment: GUEVARA RED INR: 2.0 - 3.0 CONDITIONS NOT LISTED BELOW 2.5 - 3.5 FOR PROSTHETIC HEART VALVE REPLACEMENT 2.5 - 3.5 RECURRENT THROMBOSIS Performed By: #### P T ####[facility] Xlxicfzone[address] [place], [place] [address]Dr. Lizandro Hemphill PT Coag (PPP) [Time] 14.3 s Critically high 9.0-11.6 [place] Comment on above: Performed By: #### P T ####[facility] Oztcbmiqtb2156[address] [place], [place] [address]Dr. Lizandro Hemphill TROPONIN, HIGH SENSITIVITYon 10-31-2021 HSTROP 4.9 pg/mL Normal 4.0-51.3 [place] Comment on above: Result Comment: CUT- OFF POINTS HAVE BEEN ESTABLISHED BASED ON THE FOURTH UNIVERSAL DEFINITIONS OF MYOCARDIALINFARCTION. THE UPPER REFERENCE LIMIT (URL) OF TROPONIN, DEFINED THE 99TH PERCENTILE OFcTnI DISTRIBUTION IN A REFERENCE POPULATION, HAS BEEN CONFIRMED THE DECISION THRESHOLDFOR MS DIAGNOSIS. Performed By: #### H RICARDO, BMP ####[facility] Olgvtzjhix5433[address] [place], [place] [address]Dr. Lizandro Hemphill CBC AUTO DIFFon 10-30-2021 BASO # 0.1 103/ul Normal 0.0-0.1 [facility] Comment on above: Performed By: #### C BC ####[facility] Gxjmcbmoku30[address] [place], [place] [address]Dr. Lizandro Hemphill Basophils/100 WBC (Bld) 0.8 % Normal 0.2-2.0 [facility] Comment on above: Performed By: #### C BC ####[facility] Yqdphvwtyh55[address] [place], [place] [address]Dr. Lizandro Hemphill EO # 0.0 103/ul Normal 0.0-0.7 The [facility] Comment on above: Performed By: #### C BC ####[facility] Emfqcyfjdd9[address] [place], [place] [address]Dr. Lizandro Hemphill Eosinophils/100 WBC (Bld) 0.4 % Critically low 0.9-7.0 The [facility] Comment on above: Performed By: #### C BC ####[facility] Sblvjmfbzz[address] [place], [place] [address]Dr. Lizandro Hemphill Erythrocyte distribution width (RBC) [Ratio] 17.4 % Critically high 11.0-15.0 The [facility] Comment on above: Performed By: #### C BC ####[facility] Uqtwpxydhk0439[address] [place], [place] [address]Dr. Lizandro Hemphill Hematocrit (Bld) [Volume fraction] 39.7 % Normal 36.0-48.0 The [facility] Comment on above: Performed By: #### C BC ####[facility] Kridkjwboh34[address] [place], [place] [address]Dr. Lizandro Hemphill Hemoglobin (Bld) [Mass/Vol] 12.7 g/dL Normal 12.0-16.0 [facility] Comment on above: Performed By: #### C BC ####[facility] E[address]ajlwwz5[address] [place] [id number]. Lizandro Hemphill IG # 0.06 10e3/ul Critically high 0.00-0.03 [facility] Comment on above: Performed By: #### C BC ####[facility] Ubqaapvzje8042 [place] [id number]. Lizandro Hemphill IG % 0.5 % Normal 0.0-0.5 [place] Comment on above: Performed By: #### C BC ####[facility] Waoqkbkjbh37[address] [place] [id number]. Lizandro Hemphill LYMPH # 1.8 103/ul Normal 1.2-3.8 The [facility] Comment on above: Performed By: #### C BC ####[facility] Cvhnmbvfai47[address] [place] [address]Dr. Lizandro Hemphill Lymphocytes/100 WBC (Bld) 16.1 % Critically low 20.5-60.0 [place] Comment on above: Performed By: #### C BC ####[facility] Jpgthgzfii8154 [place] [id number]. Lizandro Hemphill MANUAL DIFF REQ NO Normal [facility] Comment on above: Performed By: #### C BC ####[facility] Bwifrxatpy6[address] [place] [id number]. Lizandro Hemphill MCH (RBC) [Entitic mass] 27.3 pg Normal 26.7-34.0 [place] Comment on above: Performed By: #### C BC ####[facility] Jatyykiqet20[address] [place] [id number]. Lizandro Joby MCHC (RBC) [Mass/Vol] 32.0 g/dL Normal 29.9-35.2 [facility] Comment on above: Performed By: #### C BC ####[facility] Zfkvsutxyr8438 [place] [id number]. Lizandro Hemphill MCV (RBC) [Entitic vol] 85.4 fL Normal 81.0-99.0 [place] Comment on above: Performed By: #### C BC ####[facility] Eiowzskmpn9618 [place] [id number]. Lizandro Hemphill MONO # 1.2 103/ul Critically high 0.3-0.[address] [facility] Comment on above: Performed By: #### C BC ####[facility] Elgourxrpd7388 [place] [id number]. Lizandro Hemphill Monocytes/100 WBC (Bld) 10.9 % Normal 1.7-12.0 The [facility] Comment on above: Performed By: #### C BC ####[facility] Wvotnsqcri3691 [place] [id number]. Lizandro Hemphill NEUT # 7.8 103/ul Critically high 1.4-6.[address] [facility] Comment on above: Performed By: #### C BC ####[facility] Rotbivkjlf8745 [place] [address]Dr. Lizandro Hemphill Neutrophils/100 WBC (Bld) 71.3 % Normal 43.0-75.0 [facility] Comment on above: Performed By: #### C BC ####[facility] Vcsbrefvdk50[address] [place], [place] [address]Dr. Lizandro Hemphill Platelet mean volume (Bld) [Entitic vol] 10.4 fL Normal 9.5-13.5 The [facility] Comment on above: Performed By: #### C BC ####[facility] Mmbutrcoyt35[address] [place], [place] [address]Dr. Lizandro Hemphill PLT 324 103/ul Normal 150-450 [facility] Comment on above: Performed By: #### C BC ####[facility] [address]ofntxhbxz[address] [place], [place] [address]Dr. Lizandro Hemphill RBC 4.65 106/ul Normal 4.20-5.40 The [facility] Comment on above: Performed By: #### C BC ####[facility] Qdhfvongyc4738 [place] [id number]. Lizandro Hemphill WBC 11.0 103/ul Normal 4.0-11.0 The [facility] Comment on above: Performed By: #### C BC ####[facility] Lguzrrsepd3675 [place] [address]Dr. Lizandro Hemphill PROF CHEM 8 (BAS METB)on Anion gap [Moles/Vol] 14.3 mmol/L Normal [place] Comment on above: Performed By: #### B MP ####[facility] Lhcbltnisx2038 [place] [address]Dr. Lizandro Hemphill Calcium [Mass/Vol] 9.1 mg/dL Normal 8.5-10.1 [facility] Comment on above: Performed By: #### B MP ####[facility] Urmayldybk2774 [place] [address]Dr. Lizandro Hemphill Chloride [Moles/Vol] 104 mmol/L Normal 98-107 [place] Comment on above: Performed By: #### B MP ####[facility] Ezyeiibfvm[address] [place], [place] [address]Dr. Lizandro Hemphill CO2 [Moles/Vol] 26.7 mmol/L Normal 21.0-32.0 [facility] Comment on above: Performed By: #### B MP ####[facility] Tqnqkbvipe[address] [place], [place] [address]Dr. Lizandro Hemphill Creatinine [Mass/Vol] 0.91 mg/dL Normal 0.55-1.02 [place] Comment on above: Performed By: #### B MP ####[facility] Ujgmcaueio24[address] [place], [place] [address]Dr. Lizandro Hemphill EGFR-AF CITIZ[place] >60 Normal >=60 [facility] Comment on above: Performed By: #### B MP ####[facility] Xoovgdbtmw8023 [place] [address]Dr. Lizandro Hemphill EGFR-NON AF CITIZ[place] OF [place] >60 Normal >=60 [place] Comment on above: Performed By: #### B MP ####[facility] Oujaucobfk7[address] [place], [place] [address]Dr. Lizandro Hemphill Glucose [Mass/Vol] 119 mg/dL Critically high 74-106 [facility] Comment on above: Performed By: #### B MP ####[facility] Wmosnzlhnu3123 [place] [phone]. Lizandro Hemphill Potassium [Moles/Vol] 4.0 mmol/L Normal 3.5-5.1 [place] Comment on above: Performed By: #### B MP ####[facility] Terkkggacu8403 [place] [phone]. Lizandro Hemphill Sodium [Moles/Vol] 141 mmol/L Normal 136-145 [facility] Comment on above: Performed By: #### B MP ####[facility] Covnlvxnwy0841 [place] [id number]. Lizandro Hemphill Urea nitrogen [Mass/Vol] 18.0 mg/dL Normal 7.0-18.0 [place] Comment on above: Performed By: #### B MP ####[facility] Cyeuckuumx3841 [place] [id number]. Lizandro Hemphill Urea nitrogen/Creatinin e [Mass ratio] 19.8 mg/mg Normal [place] Comment on above: Performed By: #### B MP ####[facility] Hhclirobji6939 [place] [phone]. Lizandro Hemphill CULTURE URINEon 10-27-2021 CULTURE URINE Normal [facility] Comment on above: Performed By: #### U RCX ####[facility] Mfwtwpmfav2881 [place] [phone]. Lizandro Hemphill PROTIMEon 10-25-2021 INR Coag (PPP) [Relative time] 1.09 {INR} Normal [facility] Comment on above: Performed By: #### P T ####[facility] Inlysmvmfz2113 [place] [phone]. Lizandro Hemphill INR GUIDELINES SEE BELOW Normal [facility] Comment on above: Result Comment: GUEVARA RED INR: 2.0 - 3.0 CONDITIONS NOT LISTED BELOW 2.5 - 3.5 FOR PROSTHETIC HEART VALVE REPLACEMENT 2.5 - 3.5 RECURRENT THROMBOSIS Performed By: #### P T ####[facility] Umiasbetsa2058 [place] [address]Dr. Lizandro Hemphill PT Coag (PPP) [Time] 11.7 s Critically high 9.0-11.6 [facility] Comment on above: Performed By: #### P T ####[facility] Wkdoxatrza7[address] [place], [place] [address]Dr. Lizandro Joby CBC AUTO DIFFon 10-21-2021 BASO # 0.1 103/ul Normal 0.0-0.1 [facility] Comment on above: Performed By: #### C BC ####[facility] Mypagghhtw3454[address] [place], [place] [address]Dr. Lizandro Hemphill Basophils/100 WBC (Bld) 1.2 % Normal 0.2-2.0 [facility] Comment on above: Performed By: #### C BC ####[facility] Jxbxritulu7106[address] [place], [place] [address]Dr. Lizandro Hemphill EO # 0.2 103/ul Normal 0.0-0.7 [facility] Comment on above: Performed By: #### C BC ####[facility] Rydhvkissn4739[address] [place], [place] [address]Dr. Lizandro Hemphill Eosinophils/100 WBC (Bld) 4.5 % Normal 0.9-7.0 [facility] Comment on above: Performed By: #### C BC ####[facility] Orjbmlumil7[address] [place], [place] [address]Dr. Lizandro Hemphill Erythrocyte distribution width (RBC) [Ratio] 17.0 % Critically high 11.0-15.0 [facility] Comment on above: Performed By: #### C BC ####[facility] Spomnjmobm9980[address] [place], [place] [address]Dr. Lizandro Hemphill Hematocrit (Bld) [Volume fraction] 34.8 % Critically low 36.0-48.0 [facility] Comment on above: Performed By: #### C BC ####[facility] Iyzspfcwus[address] [place], [place] [address]Dr. Lizandro Hemphill Hemoglobin (Bld) [Mass/Vol] 11.3 g/dL Critically low 12.0-16.0 [facility] Comment on above: Performed By: #### C BC ####[facility] Qgayrgecrj0322 [place] [address]Dr. Lizandro Joby IG # 0.01 10e3/ul Normal 0.00-0.03 [facility] Comment on above: Performed By: #### C BC ####[facility] Kgpuduyeol9361 [place] [address]Dr. Lizandro Joby IG % 0.2 % Normal 0.0-0.5 [facility] Comment on above: Performed By: #### C BC ####[facility] Dxceliqczi1890[address] [place], [place] [address]DrCiro Shanikaannie Hemphill LYMPH # 1.6 103/ul Normal 1.2-3.8 [facility] Comment on above: Performed By: #### C BC ####[facility] Mbcvpoelvx30[address] [place], [place] [address]DrCiro Hemphill Lymphocytes/100 WBC (Bld) 33.1 % Normal 20.5-60.0 [facility] Comment on above: Performed By: #### C BC ####[facility] Vpstporyiw[address] [place], [place] [address]DrCiro Shaniakannie Hemphill MANUAL DIFF REQ NO Normal [facility] Comment on above: Performed By: #### C BC ####[facility] Hawnxpesvr5120[address] [place], [place] [address]DrCiro Lizandro Hemphill MCH (RBC) [Entitic mass] 28.0 pg Normal 26.7-34.0 [facility] Comment on above: Performed By: #### C BC ####[facility] Uhbuavbxrc[address] [place], [place] [address]DrCiro Lizandro Joby MCHC (RBC) [Mass/Vol] 32.5 g/dL Normal 29.9-35.2 [facility] Comment on above: Performed By: #### C BC ####[facility] Uydzmzwmua16[address] [place], [place] [address]DrCiro Lizandro Joby MCV (RBC) [Entitic vol] 86.4 fL Normal 81.0-99.0 [facility] Comment on above: Performed By: #### C BC ####[facility] Lqlnmpjrch56[address] [place], [place] [address]Dr. Lizandro Hemphill MONO # 0.7 103/ul Normal 0.3-0.8 [facility] Comment on above: Performed By: #### C BC ####[facility] Ssgqmvbzit4068 [place] [address]Dr. Lizandro Hemphill Monocytes/100 WBC (Bld) 14.3 % Critically high 1.7-12.0 [facility] Comment on above: Performed By: #### C BC ####[facility] Ovffczbftd2934 [place] [address]Dr. Lizandro Hemphill NEUT # 2.3 103/ul Normal 1.4-6.5 [facility] Comment on above: Performed By: #### C BC ####[facility] Jdbmkqpxgh[address] [place], [place] [address]Dr. Lizandro Hemphill Neutrophils/100 WBC (Bld) 46.7 % Normal 43.0-75.0 [facility] Comment on above: Performed By: #### C BC ####[facility] Uunzcektgq[address] [place], [place] [address]Dr. Lizandro Hemphill Platelet mean volume (Bld) [Entitic vol] 10.9 fL Normal 9.5-13.5 [facility] Comment on above: Performed By: #### C BC ####[facility] Dmkjggiviy8[address] [place], [place] [address]Dr. Lizandro Hemphill PLT 213 103/ul Normal 150-450 [facility] Comment on above: Performed By: #### C BC ####[facility] Xnevjjgqom9826[address] [place], [place] [address]Dr. Lizandro Hemphill RBC 4.03 106/ul Critically low 4.20-5.[address] [facility] Comment on above: Performed By: #### C BC ####[facility] Ctrikrxska88[address] [place], [place] [address]Dr. Lizandro Hemphill WBC 4.9 103/ul Normal 4.0-11.0 [facility] Comment on above: Performed By: #### C BC ####[facility] Kvfmgrctcx4[address] [place], [place] [address]Dr. Lizandro Hemphill CRPon 10-21-2021 CRP [Mass/Vol] mg/L Normal <=1.0 [facility] Comment on above: Performed By: #### C RP, CMP ####[facility] Obizhkidpk8515 [place] [address]Dr. Lizandro Joby Covid-19 PCR (CVDTB)on 09-24 SARS-CoV-2 (COVID-19) RNA VERITO+probe Ql (Unsp spec) Not detected Normal NOT DETECTED [facility] Comment on above: Result Comment: This test is not yet approved or cleared by the [place] FDA. When there are no FDA-approved or cleared tests available, and other criteria are met, FDA can make tests available under an emergency access mechanism called an Emergency Use Authorization (EUA). The EUA for this test is supported by the [employer] of Health and Human Service's (HHS's) declaration [...] with SARS-CoV-2. Performed By: #### C VDTBH ####[facility] Xdsoxgxyja5603 [place] [address]Dr. Lizandro Hemphill PROF 14(COMP METB)on 022 Albumin [Mass/Vol] 2.7 g/dL Critically low 3.4-5.0 [facility] e [facility] Comment on above: Performed By: #### C RP, CMP ####[facility] Nfglfxmqgg1512 [place] [address]Dr. Lizandro Hemphill Albumin/Globulin [Mass ratio] 0.8 {ratio} Normal [place] Comment on above: Performed By: #### C RP, CMP ####[facility] Bkibvohoqg72[address] [place], [place] [address]Dr. Lizandro Hemphill ALP [Catalytic activity/Vol] 86 U/L Normal 46-116 [place] Comment on above: Performed By: #### C RP, CMP ####[facility] Cbhzbisldk5544 [place] [address]Dr. Lizandro Hemphill ALT [Catalytic activity/Vol] 23 U/L Normal 14-59 [place] Comment on above: Performed By: #### C RP, CMP ####[facility] Aheytgxmog3544 [place] [address]Dr. Lizandro Hemphill Anion gap [Moles/Vol] 10.8 mmol/L Normal [place] Comment on above: Performed By: #### C RP, CMP ####[facility] Ecefailhng[address] [place], [place] [address]Dr. Lizandro Hemphill AST [Catalytic activity/Vol] 25 U/L Normal 15-37 [place] Comment on above: Performed By: #### C RP, CMP ####[facility] Dqotavtnec48[address] [place], [place] [address]Dr. Lizandro Hemphill Bilirubin [Mass/Vol] 0.1 mg/dL Critically low 0.2-1.0 [place] Comment on above: Performed By: #### C RP, CMP ####[facility] Hnplywbaex[address] [place], [place] [address]Dr. Lizandro Hemphill Calcium [Mass/Vol] 8.0 mg/dL Critically low 8.5-10.1 [facility] Comment on above: Performed By: #### C RP, CMP ####[facility] Zblhksdkmb9164[address] [place], [place] [address]Dr. Lizandro Hemphill Chloride [Moles/Vol] 107 mmol/L Normal 98-107 [facility] Comment on above: Performed By: #### C RP, CMP ####[facility] Bjjhgsfwzq25[address] [place], [place] [address]Dr. Lizandro Hemphill CO2 [Moles/Vol] 26.7 mmol/L Normal 21.0-32.0 [facility] Comment on above: Performed By: #### C RP, CMP ####[facility] Xlchrfnlto6636 [place] [address]Dr. Lizandro Hemphill Creatinine [Mass/Vol] 0.80 mg/dL Normal 0.55-1.02 [place] Comment on above: Performed By: #### C RP, CMP ####[facility] Czjzviuzrr2404 [place] [address]Dr. Lizandro Hemphill EGFR-AF CITIZ[place] >60 Normal >=60 [facility] Comment on above: Performed By: #### C RP, CMP ####[facility] Urtimckjcr1891 [place] [address]Dr. Lizandro Hemphill EGFR-NON AF CITIZEN OF [place] >60 Normal >=60 [place] Comment on above: Performed By: #### C RP, CMP ####[facility] Upnurwufth[address] [place], [place] [address]Dr. Lizandro Hemphill Globulin (S) [Mass/Vol] 3.2 g/dL Normal [place] Comment on above: Performed By: #### C RP, CMP ####[facility] Gxlecrtfzz[address] [place], [place] [address]Dr. Lizandro Hemphill Glucose [Mass/Vol] 108 mg/dL Critically high 74-106 [facility] Comment on above: Performed By: #### C RP, CMP ####[facility] Sfgpgrtmsf[address] [place], [place] [address]Dr. Lizandro Hemphill Potassium [Moles/Vol] 3.5 mmol/L Normal 3.5-5.1 [place] Comment on above: Performed By: #### C RP, CMP ####[facility] Iqgaibukhn9905 [place] [address]Dr. Lizandro Hemphill Protein [Mass/Vol] 5.9 g/dL Critically low 6.4-8.[address] [facility] Comment on above: Performed By: #### C RP, CMP ####[facility] Hfebnniwpf47[address] [place] [address]Dr. Lizandro Hemphill Sodium [Moles/Vol] 141 mmol/L Normal 136-145 [facility] Comment on above: Performed By: #### C RP, CMP ####[facility] Eczijggnpz27[address] [place], [place] [address]Dr. Lizandro Hemphill Urea nitrogen [Mass/Vol] 9.0 mg/dL Normal 7.0-18.0 [facility] Comment on above: Performed By: #### C RP, CMP ####[facility] Skqnploqvg30[address] [place], [place] [address]Dr. Lizandro Hemphill Urea nitrogen/Creatinin e [Mass ratio] 11.2 mg/mg Normal [facility] Comment on above: Performed By: #### C RP, CMP ####[facility] Lfcbrmsopk9[address] [place], [place] [address]Dr. Lizandro Hemphill PROTIMEon 10-21-2021 INR Coag (PPP) [Relative time] 2.13 {INR} Normal [facility] Comment on above: Performed By: #### P T ####[facility] Rhsbbzhvxf8938[address] [place], [place] [address]Dr. Lizandro Hemphill INR GUIDELINES SEE BELOW Normal The [facility] Comment on above: Result Comment: GUEVARA RED INR: 2.0 - 3.0 CONDITIONS NOT LISTED BELOW 2.5 - 3.5 FOR PROSTHETIC HEART VALVE REPLACEMENT 2.5 - 3.5 RECURRENT THROMBOSIS Performed By: #### P T ####[facility] Rkvqcvtiwb29[address] [place], [place] [address]Dr. Lizandro Hemphill PT Coag (PPP) [Time] 21.9 s Critically high 9.0-11.6 The [facility] Comment on above: Performed By: #### P T ####[facility] Fhdrijazzd97[address] [place], [place] [address]DrCiro Hemphill CBC AUTO DIFFon 10-20-2021 BASO # 0.1 103/ul Normal 0.0-0.1 [facility] Comment on above: Performed By: #### C BC ####[facility] Cufagiptuz16[address] [place], [place] [address]DrCiro Hemphill Basophils/100 WBC (Bld) 1.3 % Normal 0.2-2.0 [facility] Comment on above: Performed By: #### C BC ####[facility] Mhvrbgfwuf5[address] [place], [place] [address]Dr. Lizandro Hemphill EO # 0.2 103/ul Normal 0.0-0.7 [facility] Comment on above: Performed By: #### C BC ####[facility] Sxjdfvvxce4352 [place] [address]Dr. Lizandro Hemphill Eosinophils/100 WBC (Bld) 3.3 % Normal 0.9-7.0 [facility] Comment on above: Performed By: #### C BC ####[facility] Gxyyeoaahw5[address] [place] [address]Dr. Lizandro Hemphill Erythrocyte distribution width (RBC) [Ratio] 17.1 % Critically high 11.0-15.0 [facility] Comment on above: Performed By: #### C BC ####[facility] Gksocrulvm[address] [place], [place] [address]Dr. Lizandro Hemphill Hematocrit (Bld) [Volume fraction] 35.4 % Critically low 36.0-48.0 [facility] Comment on above: Performed By: #### C BC ####[facility] Zmpesihljw97[address] [place], [place] [address]Dr. Lizandro Hemphill Hemoglobin (Bld) [Mass/Vol] 11.1 g/dL Critically low 12.0-16.0 The [facility] Comment on above: Result Comment: Repe ated to verify result Performed By: #### C BC ####[facility] Hsgvjxbkaq5687 [place] [address]Dr. Lizandro Hemphill IG # 0.01 10e3/ul Normal 0.00-0.03 [facility] Comment on above: Performed By: #### C BC ####[facility] Vnsbesthpj4448 [place] [address]Dr. Lizandro Hemphill IG % 0.2 % Normal 0.0-0.5 The [facility] Comment on above: Performed By: #### C BC ####[facility] Ovadzrgkln6262 [place] [address]Dr. Lizandro Hemphill LYMPH # 1.1 103/ul Critically low 1.2-3.8 [facility] Comment on above: Performed By: #### C BC ####[facility] Ciqqzewwbd22[address] [place] [id number]. Lizandro Hemphill Lymphocytes/100 WBC (Bld) 25.1 % Normal 20.5-60.0 [facility] Comment on above: Performed By: #### C BC ####[facility] Bhkiiabsik6841 [place] [id number]. Lizandro Joby MANUAL DIFF REQ NO Normal The [facility] Comment on above: Performed By: #### C BC ####[facility] Wabrbwjbre0938 [place] [id number]. Lizandro Joby MCH (RBC) [Entitic mass] 27.3 pg Normal 26.7-34.0 [facility] Comment on above: Performed By: #### C BC ####[facility] Xjiooeeizq9386 [place] [address]Dr. Lizandro Joby MCHC (RBC) [Mass/Vol] 31.4 g/dL Normal 29.9-35.2 [facility] Comment on above: Performed By: #### C BC ####[facility] Kupwmegitd3666 [place] [address]Dr. Lizandro Joby MCV (RBC) [Entitic vol] 87.0 fL Normal 81.0-99.0 [facility] Comment on above: Performed By: #### C BC ####[facility] Iekoobayyc72[address] [place], [place] [address]Dr. Lizandro Joby MONO # 0.7 103/ul Normal 0.3-0.8 [facility] Comment on above: Performed By: #### C BC ####[facility] Hidrbyxvgz5948 [place] [address]Dr. Lizandro Joby Monocytes/100 WBC (Bld) 16.0 % Critically high 1.7-12.0 [facility] Comment on above: Performed By: #### C BC ####[facility] Iofzksdkvu7070 [place] [address]Dr. Shanikaannie Joby NEUT # 2.4 103/ul Normal 1.4-6.5 The [facility] Comment on above: Performed By: #### C BC ####[facility] Npzxykiedc4589 [place] [id number]. Lizandro Hemphill Neutrophils/100 WBC (Bld) 54.1 % Normal 43.0-75.0 [facility] Comment on above: Performed By: #### C BC ####[facility] Utckoxnsez6494 [place] [id number]. Lizandro Hemphill Platelet mean volume (Bld) [Entitic vol] 10.4 fL Normal 9.5-13.5 [facility] Comment on above: Performed By: #### C BC ####[facility] Yohdwtsrsr1266 [place] [id number]. Lizandro Hemphill PLT 202 103/ul Normal 150-450 [facility] Comment on above: Performed By: #### C BC ####[facility] Jpizrudrna6[address] [place] [address]Dr. Lizandro Hemphill RBC 4.07 106/ul Critically low 4.20-5.[address] [facility] Comment on above: Performed By: #### C BC ####[facility] Mvuihadfun5328 [place] [id number]. Lizandro Hemphill WBC 4.5 103/ul Normal 4.0-11.0 [facility] Comment on above: Performed By: #### C BC ####[facility] Juxbobichq4916 [place] [address]Dr. Lizandro Hemphill BASO # 0.1 103/ul Normal 0.0-0.1 [facility] Comment on above: Performed By: #### C BC ####[facility] Iohmiizbvc9548 [place] [id number]. Lizandro Hemphill Basophils/100 WBC (Bld) 1.3 % Normal 0.2-2.0 [facility] Comment on above: Performed By: #### C BC ####[facility] Gcaaoitmqe[address] [place], [place] [address]Dr. Lizandro Hemphill EO # 0.1 103/ul Normal 0.0-0.7 [facility] Comment on above: Performed By: #### C BC ####[facility] Juuznopgnc4[address] [place], [place] [address]Dr. Lizandro Hemphill Eosinophils/100 WBC (Bld) 2.6 % Normal 0.9-7.0 [facility] Comment on above: Performed By: #### C BC ####[facility] Anbkzmclod5311 [place] [address]Dr. Lizandro Hemphill Erythrocyte distribution width (RBC) [Ratio] 17.1 % Critically high 11.0-15.0 [facility] Comment on above: Performed By: #### C BC ####[facility] Fpuvbdugzd459[address] [place], [place] [address]Dr. Lizandro Hemphill Hematocrit (Bld) [Volume fraction] 27.6 % Critically low 36.0-48.0 [facility] Comment on above: Performed By: #### C BC ####[facility] Yyigiwqmsw1739[address] [place], [place] [address]Dr. Lizandro Hemphill Hemoglobin (Bld) [Mass/Vol] 8.9 g/dL Critically low 12.0-16.0 The [facility] Comment on above: Result Comment: joann carrizales notified Performed By: #### C BC ####[facility] Whbvrjdeud5[address] [place], [place] [address]Dr. Lizandro Hemphill IG # 0.01 10e3/ul Normal 0.00-0.03 The [facility] Comment on above: Performed By: #### C BC ####[facility] Szuoqndpin10[address] [place], [place] [address]Dr. Lizandro Hemphill IG % 0.2 % Normal 0.0-0.5 The [facility] Comment on above: Performed By: #### C BC ####[facility] Vvxztobuwn4[address] [place], [place] [address]Dr. Lizandro Hemphill LYMPH # 1.8 103/ul Normal 1.2-3.8 [facility] Comment on above: Performed By: #### C BC ####[facility] Wehcxxvyfr[address] [place], [place] [address]Dr. Lizandro Hemphill Lymphocytes/100 WBC (Bld) 32.2 % Normal 20.5-60.0 [facility] Comment on above: Performed By: #### C BC ####[facility] Nonjyxehgb2358 [place] [id number]. Lizandro Hemphill MANUAL DIFF REQ NO Normal The [facility] Comment on above: Performed By: #### C BC ####[facility] Nrlxiaglut1568 [place] [id number]. Lizandro Hemphill MCH (RBC) [Entitic mass] 27.8 pg Normal 26.7-34.0 [facility] Comment on above: Performed By: #### C BC ####[facility] Zwwudkkmsi9847 [place] [address]Dr. Lizandro Hemphill MCHC (RBC) [Mass/Vol] 32.2 g/dL Normal 29.9-35.2 [facility] Comment on above: Performed By: #### C BC ####[facility] Zrocbbnzbl5231 [place] [address]Dr. Lizandro Hemphill MCV (RBC) [Entitic vol] 86.3 fL Normal 81.0-99.0 [facility] Comment on above: Performed By: #### C BC ####[facility] Lctcpqecbv3587 [place] [phone]. Lizandro Hemphill MONO # 0.7 103/ul Normal 0.3-0.8 [facility] Comment on above: Performed By: #### C BC ####[facility] Joqaqelcgh7918 [place] [address]Dr. Lizandro Hemphill Monocytes/100 WBC (Bld) 13.0 % Critically high 1.7-12.0 [facility] Comment on above: Performed By: #### C BC ####[facility] Qrkvkrsycy0537 [place] [id number]. Lizandro Hemphill NEUT # 2.8 103/ul Normal 1.4-6.5 [facility] Comment on above: Performed By: #### C BC ####[facility] Ysgeqthkrb5591 [place] [address]Dr. Lizandro Hemphill Neutrophils/100 WBC (Bld) 50.7 % Normal 43.0-75.0 [facility] Comment on above: Performed By: #### C BC ####[facility] Gnykoucdug6042 [place] [phone]. Lizandro Hemphill Platelet mean volume (Bld) [Entitic vol] 11.0 fL Normal 9.5-13.5 [place] Comment on above: Performed By: #### C BC ####[facility] Rhpiidqpgm8764 [place] [phone]. Lizandro Hemphill PLT 241 103/ul Normal 150-450 [facility] Comment on above: Performed By: #### C BC ####[facility] Jjkfdbebgp7929 [place] [phone]. Lizandro Hemphill RBC 3.20 106/ul Critically low 4.20-5.40 [facility] Comment on above: Performed By: #### C BC ####[facility] Fasclhndgr1862 [place] [address]Dr. Lizandro Hemphill WBC 5.5 103/ul Normal 4.0-11.0 [place] Comment on above: Performed By: #### C BC ####[facility] Nvpbdioent2599 [place] [address]Dr. Shanikaannie Hemphill CRPon 10-20-2021 CRP [Mass/Vol] mg/L Normal <=1.0 [facility] Comment on above: Performed By: #### C RP, CMP ####[facility] Ihwdawgndi2838 [place] [address]Dr. Lizandro Hemphill PROF 14(COMP METB)on 022 Albumin [Mass/Vol] 2.5 g/dL Critically low 3.4-5.0 [facility] Comment on above: Performed By: #### C RP, CMP ####[facility] Csgdzkovdy6806 [place] [address]Dr. Lizandro Hemphill Albumin/Globulin [Mass ratio] 0.9 {ratio} Normal [place] Comment on above: Performed By: #### C RP, CMP ####[facility] Fazvliogwt8708 [place] [address]Dr. Lizandro Hemphill ALP [Catalytic activity/Vol] 85 U/L Normal 46-116 [place] Comment on above: Performed By: #### C RP, CMP ####[facility] Mmbaifgrcc0241 [place] [id number]. Lizandro Hemphill ALT [Catalytic activity/Vol] 26 U/L Normal 14-59 [place] Comment on above: Performed By: #### C RP, CMP ####[facility] Habpwqehoi6484 [place] [id number]. Lizandro Hemphill Anion gap [Moles/Vol] 10.8 mmol/L Normal [place] Comment on above: Performed By: #### C RP, CMP ####[facility] Egezrzoukw[address] [place], [place] [address]Dr. Lizandro Hemphill AST [Catalytic activity/Vol] 39 U/L Critically high 15-37 [place] Comment on above: Performed By: #### C RP, CMP ####[facility] Ttlbcwhjar69[address] [place], [place] [address]Dr. Lizandro Hemphill Bilirubin [Mass/Vol] 0.2 mg/dL Normal 0.2-1.0 [place] Comment on above: Performed By: #### C RP, CMP ####[facility] Osabmoklzq[address] [place], [place] [address]Dr. Lizandro Hemphill Calcium [Mass/Vol] 7.6 mg/dL Critically low 8.5-10.1 Th e [facility] Comment on above: Performed By: #### C RP, CMP ####[facility] Egjtkweftw9197[address] [place], [place] [address]Dr. Lizandro Hemphill Chloride [Moles/Vol] 111 mmol/L Critically high 98-107 [facility] Comment on above: Performed By: #### C RP, CMP ####[facility] Kkwpaamfsh[address] [place], [place] [address]Dr. Lizandro Hemphill CO2 [Moles/Vol] 24.6 mmol/L Normal 21.0-32.0 [facility] Comment on above: Performed By: #### C RP, CMP ####[facility] Cmhdvkpwtr8[address] [place], [place] [address]Dr. Lizandro Hemphill Creatinine [Mass/Vol] 0.72 mg/dL Normal 0.55-1.02 [place] Comment on above: Performed By: #### C RP, CMP ####[facility] Uosaxnwlym7123 [place] [phone]. Lizandro Hemphill EGFR-AF CITIZEN OF [place] >60 Normal >=60 [facility] Comment on above: Performed By: #### C RP, CMP ####[facility] Cpljcesvqv6435 [place] [phone]. Lizandro Hemphill EGFR-NON AF CITIZEN OF [place] >60 Normal >=60 [place] Comment on above: Performed By: #### C RP, CMP ####[facility] Mrorcgjoer2197 [place] [phone]. Lizandro Hemphill Globulin (S) [Mass/Vol] 2.9 g/dL Normal [place] Comment on above: Performed By: #### C RP, CMP ####[facility] Gqfnbdhxut3583 [place] [address]Dr. Lizandro Hemphill Glucose [Mass/Vol] 99 mg/dL Normal 74-106 [facility] Comment on above: Performed By: #### C RP, CMP ####[facility] Tnmmkqtzpy5813 [place] [phone]. Lizandro Hemphill Potassium [Moles/Vol] 3.4 mmol/L Critically low 3.5-5.1 [place] Comment on above: Performed By: #### C RP, CMP ####[facility] Bkvfceyymp6641 [place] [phone]. Lizandro Hemphill Protein [Mass/Vol] 5.4 g/dL Critically low 6.4-8.[address] [facility] Comment on above: Performed By: #### C RP, CMP ####[facility] Mvrjokdjyq2019 [place] [phone]. Lizandro Hemphill Sodium [Moles/Vol] 143 mmol/L Normal 136-145 [facility] Comment on above: Performed By: #### C RP, CMP ####[facility] Ludypcjwor9686 [place] [phone]. Lizandro Hemphill Urea nitrogen [Mass/Vol] 9.0 mg/dL Normal 7.0-18.0 [place] Comment on above: Performed By: #### C RP, CMP ####[facility] Vxcqurpjbh69[address] [place], [place] [address]DrCiro Hemphill Urea nitrogen/Creatinin e [Mass ratio] 12.5 mg/mg Normal [facility] Comment on above: Performed By: #### C RP, CMP ####[facility] Xsmfcwzgbz167[address] [place], [place] [address]Dr. Lizandro Hemphill PROTIMEon 10-20-2021 INR Coag (PPP) [Relative time] 1.94 {INR} Normal [facility] Comment on above: Performed By: #### P T ####[facility] Qtbzvdmitz282[address] [place], [place] [address]Dr. Lizandro Hemphill INR GUIDELINES SEE BELOW Normal [facility] Comment on above: Result Comment: GUEVARA RED INR: 2.0 - 3.0 CONDITIONS NOT LISTED BELOW 2.5 - 3.5 FOR PROSTHETIC HEART VALVE REPLACEMENT 2.5 - 3.5 RECURRENT THROMBOSIS Performed By: #### P T ####[facility] Pqzpsehedq3196[address] [place], [place] [address]Dr. Lizandro Hemphill PT Coag (PPP) [Time] 20.1 s Critically high 9.0-11.6 [place] Comment on above: Performed By: #### P T ####[facility] Bvjsofrvvl6874[address] [place], [place] [address]Dr. Lizandro Hemphill US NEEL DOP LEG BILon 022 US NEEL DOP LEG CROW Normal The [facility] CBC AUTO DIFFon 10-19-2021 BASO # 0.1 103/ul Normal 0.0-0.1 [facility] Comment on above: Performed By: #### C BC ####[facility] Yahuilavan8667[address] [place], [place] [address]DrCiro Hemphill Basophils/100 WBC (Bld) 1.4 % Normal 0.2-2.0 [facility] Comment on above: Performed By: #### C BC ####[facility] Kknwtugmob80[address] [place], [place] [address]DrCiro Hemphill EO # 0.2 103/ul Normal 0.0-0.7 [facility] Comment on above: Performed By: #### C BC ####[facility] Yckmupuoxw5790[address] [place], [place] [address]Dr. Lizandro Hemphill Eosinophils/100 WBC (Bld) 3.3 % Normal 0.9-7.0 [facility] Comment on above: Performed By: #### C BC ####[facility] Xkqusejtgf8501[address] [place], [place] [address]Dr. Lizandro Hemphill Erythrocyte distribution width (RBC) [Ratio] 17.0 % Critically high 11.0-15.0 [facility] Comment on above: Performed By: #### C BC ####[facility] Gnsortbaua70[address] [place], [place] [address]Dr. Lizandro Hemphill Hematocrit (Bld) [Volume fraction] 38.2 % Normal 36.0-48.0 [facility] Comment on above: Performed By: #### C BC ####[facility] Ypcryqnpjg2353[address] [place], [place] [address]Dr. Lizandro Hemphill Hemoglobin (Bld) [Mass/Vol] 12.2 g/dL Normal 12.0-16.0 [facility] Comment on above: Performed By: #### C BC ####[facility] Hdnexqsvjy3[address] [place], [place] [address]Dr. Lizandro Joby IG # 0.01 10e3/ul Normal 0.00-0.03 [facility] Comment on above: Performed By: #### C BC ####[facility] Gvklifbupi789[address] [place], [place] [address]Dr. Shanikaannie Hemphill IG % 0.2 % Normal 0.0-0.5 [facility] Comment on above: Performed By: #### C BC ####[facility] Tmsbjyomhx[address] [place], [place] [address]DrCiro Hemphill LYMPH # 1.7 103/ul Normal 1.2-3.8 [facility] Comment on above: Performed By: #### C BC ####[facility] Rxdowzgvub[address] [place], [place] [address]DrCiro Hemphill Lymphocytes/100 WBC (Bld) 32.2 % Normal 20.5-60.0 [facility] Comment on above: Performed By: #### C BC ####[facility] Doyvalkvij0959 [place] [address]DrCiro Hemphill MANUAL DIFF REQ NO Normal [facility] Comment on above: Performed By: #### C BC ####[facility] Hbowfpfqnx4452 [place] [address]DrCiro Hemphill MCH (RBC) [Entitic mass] 27.4 pg Normal 26.7-34.0 [facility] Comment on above: Performed By: #### C BC ####[facility] Pqjilsapgy4447[address] [place], [place] [address]DrCiro Hemphill MCHC (RBC) [Mass/Vol] 31.9 g/dL Normal 29.9-35.2 [facility] Comment on above: Performed By: #### C BC ####[facility] Cxisgrcwot6210[address] [place], [place] [address]DrCiro Hemphill MCV (RBC) [Entitic vol] 85.7 fL Normal 81.0-99.0 [facility] Comment on above: Performed By: #### C BC ####[facility] Qqmwyuujqg8[address] [place], [place] [address]DrCiro Hemphill MONO # 0.6 103/ul Normal 0.3-0.8 [facility] Comment on above: Performed By: #### C BC ####[facility] Sqhvawnyts[address] [place], [place] [address]DrCiro Hemphill Monocytes/100 WBC (Bld) 12.5 % Critically high 1.7-12.0 [facility] Comment on above: Performed By: #### C BC ####[facility] Jmxkegoadw3496[address] [place], [place] [address]DrCiro Hemphill NEUT # 2.6 103/ul Normal 1.4-6.5 [facility] Comment on above: Performed By: #### C BC ####[facility] Gvufwfibxv8[address] [place], [place] [address]DrCiro Hemphill Neutrophils/100 WBC (Bld) 50.4 % Normal 43.0-75.0 [place] Comment on above: Performed By: #### C BC ####[facility] Xwtdjnbkfi3501 [place] [address]Dr. Lizandro Hemphill Platelet mean volume (Bld) [Entitic vol] 10.4 fL Normal 9.5-13.5 [place] Comment on above: Performed By: #### C BC ####[facility] Tutrakwmkt0441 [place] [address]Dr. Lizandro Hemphill PLT 238 103/ul Normal 150-450 [facility] Comment on above: Performed By: #### C BC ####[facility] Ibnxqtqbea9354[address] [place], [place] [address]Dr. Lizandro Hemphill RBC 4.46 106/ul Normal 4.20-5.40 [place] Comment on above: Performed By: #### C BC ####[facility] Hepyohrwaf45[address] [place], [place] [address]DrCiro Lizandro Hemphill WBC 5.1 103/ul Normal 4.0-11.0 [place] Comment on above: Performed By: #### C BC ####[facility] Peuydkzsgg2934[address] [place], [place] [address]DrCiro Lizandro Hemphill CRPon 10-19-2021 CRP [Mass/Vol] mg/L Normal <=1.0 [facility] Comment on above: Performed By: #### C MP, CRP ####[facility] Pmftpnkrwg7614[address] [place], [place] [address]DrCiro Lizandro Hemphill H PYLORI ANTIBODY IGGon 09-24 H. PYLORI IGG ABS 0.24 Index Value Normal 0.00-0.79 [facility] Comment on above: Result Comment: Nega tive <0.80 Equivocal 0.80 - 0.89 Positive >0.89 Performed By: #### H PYLLC ####[facility] Pwsghvsief5777 [place] [address]DrCiro Lizandro Joby PROF 14(COMP METB)on 022 Albumin [Mass/Vol] 2.9 g/dL Critically low 3.4-5.[address] [facility] Comment on above: Performed By: #### C MP, CRP ####[facility] Puifdzxcwj9054 [place] [address]Dr. Shanikaannie Joby Albumin/Globulin [Mass ratio] 0.9 {ratio} Normal [place] Comment on above: Performed By: #### C MP, CRP ####[facility] Xssrugueum4341 [place] [address]Dr. Lizandro Hemphill ALP [Catalytic activity/Vol] 100 U/L Normal 46-116 [place] Comment on above: Performed By: #### C MP, CRP ####[facility] Gqndxqecij1413 [place] [address]Dr. Lizandro Hemphill ALT [Catalytic activity/Vol] 24 U/L Normal 14-59 [place] Comment on above: Performed By: #### C MP, CRP ####[facility] Shnqitqydm6934 [place] [address]Dr. Lizandro Hemphill Anion gap [Moles/Vol] 11.6 mmol/L Normal [place] Comment on above: Performed By: #### C MP, CRP ####[facility] Hfpxiyovrc[address] [place], [place] [address]Dr. Lizandro Hemphill AST [Catalytic activity/Vol] 29 U/L Normal 15-37 [place] Comment on above: Performed By: #### C MP, CRP ####[facility] Pcixwfawlq6629 [place] [address]Dr. Lizandro Hemphill Bilirubin [Mass/Vol] 0.3 mg/dL Normal 0.2-1.0 [place] Comment on above: Performed By: #### C MP, CRP ####[facility] Cadfoaeyjx4127 [place] [address]Dr. Lizandro Hemphill Calcium [Mass/Vol] 8.0 mg/dL Critically low 8.5-10.[address] [facility] Comment on above: Performed By: #### C MP, CRP ####[facility] [address]yamzjwwqh[address] [place], [place] [address]Dr. Lizandro Hemphill Chloride [Moles/Vol] 107 mmol/L Normal 98-107 [place] Comment on above: Performed By: #### C MP, CRP ####[facility] Erucotngnp7340 [place] [address]Dr. Lizandro Hemphill CO2 [Moles/Vol] 22.9 mmol/L Normal 21.0-32.0 [facility] Comment on above: Performed By: #### C MP, CRP ####[facility] Nlfiqzmlfz6099 [place] [address]Dr. Lizandro Joby Creatinine [Mass/Vol] 0.65 mg/dL Normal 0.55-1.02 [place] Comment on above: Performed By: #### C MP, CRP ####[facility] [address]vgc[address] [place] [address]Dr. Lizandro Joby EGFR-AF [place]IZ[place] >60 Normal >=60 [facility] Comment on above: Performed By: #### C MP, CRP ####[facility] Gunwwgndtk[address] [place] [address]Dr. Lizandro Joby EGFR-NON AF [place]IZEN [place] >60 Normal >=60 [place] Comment on above: Performed By: #### C MP, CRP ####[facility] Uhqhkeolxa18[address] [place] [address]Dr. Lizandro Joby Globulin (S) [Mass/Vol] 3.4 g/dL Normal [place] Comment on above: Performed By: #### C MP, CRP ####[facility] Phyvkznsau[address] [place] [address]Dr. Lizandro Joby Glucose [Mass/Vol] 93 mg/dL Normal 74-106 [facility] Comment on above: Performed By: #### C MP, CRP ####[facility] Cjpqnrvvta0259 [place] [address]Dr. Shanikaannie Hemphill Potassium [Moles/Vol] 3.5 mmol/L Normal 3.5-5.1 [facility] Comment on above: Performed By: #### C MP, CRP ####[facility] Xpcuthxsqw7[address] [place] [address]Dr. Lizandro Hemphill Protein [Mass/Vol] 6.3 g/dL Critically low 6.4-8.2 [facility] e [facility] Comment on above: Performed By: #### C MP, CRP ####[facility] Oiohcfknhe340[address] [place] [address]Dr. Lizandro Hemphill Sodium [Moles/Vol] 138 mmol/L Normal 136-145 The [facility] Comment on above: Performed By: #### C MP, CRP ####[facility] Oozvcnqcon5[address] [place] [address]Dr. Lizandro Hemphill Urea nitrogen [Mass/Vol] 10.0 mg/dL Normal 7.0-18.0 [place] Comment on above: Performed By: #### C MP, CRP ####[facility] Btgebdggeu[address] [place], [place] [address]Dr. Lizandro Hemphill Urea nitrogen/Creatinin e [Mass ratio] 15.4 mg/mg Normal [place] Comment on above: Performed By: #### C MP, CRP ####[facility] Kedeyuxlkp[address] [place], [place] [address]Dr. Lizandro Hemphill PROTIMEon 10-19-2021 INR Coag (PPP) [Relative time] 2.03 {INR} Normal [place] Comment on above: Performed By: #### P T ####[facility] Hoxfcbkvyk[address] [place], [place] [address]Dr. Lizandro Hemphill INR GUIDELINES SEE BELOW Normal [facility] Comment on above: Result Comment: GUEVARA RED INR: 2.0 - 3.0 CONDITIONS NOT LISTED BELOW 2.5 - 3.5 FOR PROSTHETIC HEART VALVE REPLACEMENT 2.5 - 3.5 RECURRENT THROMBOSIS Performed By: #### P T ####[facility] Kjlkcpavef26[address] [place], [place] [address]Dr. Lizandro Hemphill PT Coag (PPP) [Time] 20.9 s Critically high 9.0-11.6 [facility] Comment on above: Performed By: #### P T ####[facility] Bihaduafpj[address] [place], [place] [address]Dr. Lizandro Hemphill AMMONIAon 10-18-2021 Ammonia (P) [Moles/Vol] 21 umol/L Normal 11-32 [facility] Comment on above: Performed By: #### A MM ####[facility] Qgsdfffnyk[address] [place] [address]Dr. Lizandro Hemphill AMYLASEon 10-18-2021 Amylase [Catalytic activity/Vol] 86 U/L Normal 25-115 [facility] Comment on above: Performed By: #### A MY, CMP, LIPA, BNP, CRP ####[facility] Kotaseutik[address] [place], [place] [address]Dr. Lizandro Hemphill BNPon 10-18-2021 Natriuretic peptide B (Bld) [Mass/Vol] 157.0 pg/mL Normal <=900.0 [facility] Comment on above: Performed By: #### A MY, CMP, LIPA, BNP, CRP ####[facility] Iupndkrbyv3367[address] [place], [place] [address]Dr. Lizandro Hemphill CBC AUTO DIFFon 10-18-2021 BASO # 0.1 103/ul Normal 0.0-0.1 [place] Comment on above: Performed By: #### C BC ####[facility] Cmlconsbwh7[address] [place], [place] [address]Dr. Lizandro Hemphill Basophils/100 WBC (Bld) 1.0 % Normal 0.2-2.0 [facility] Comment on above: Performed By: #### C BC ####[facility] Sfmkcuvmxl[address] [place], [place] [address]Dr. Lizandro Hemphill EO # 0.1 103/ul Normal 0.0-0.7 [facility] Comment on above: Performed By: #### C BC ####[facility] Ywwhavtxwy[address] [place], [place] [address]Dr. Lizandro Hemphill Eosinophils/100 WBC (Bld) 1.0 % Normal 0.9-7.0 [facility] Comment on above: Performed By: #### C BC ####[facility] Ukdazculzn6785[address] [place], [place] [address]Dr. Lizandro Hemphill Erythrocyte distribution width (RBC) [Ratio] 16.8 % Critically high 11.0-15.0 [facility] Comment on above: Performed By: #### C BC ####[facility] Synmvsvbdh29[address] [place] [address]Dr. Lizandro Hemphill Hematocrit (Bld) [Volume fraction] 42.3 % Normal 36.0-48.0 [place] Comment on above: Performed By: #### C BC ####[facility] Qfrylaqnjb7300 [place] [address]Dr. Lizandro Hemphill Hemoglobin (Bld) [Mass/Vol] 13.4 g/dL Normal 12.0-16.0 [place] Comment on above: Performed By: #### C BC ####[facility] Xyvfylzane57[address] [place], [place] [address]Dr. Lizandro Hemphill IG # 0.02 10e3/ul Normal 0.00-0.03 [facility] Comment on above: Performed By: #### C BC ####[facility] Fsxhrtguqm86[address] [place], [place] [address]Dr. Shanikaannie Hemphill IG % 0.3 % Normal 0.0-0.5 [place] Comment on above: Performed By: #### C BC ####[facility] Gdufzketdr8430[address] [place], [place] [address]Dr. Lizandro Joby LYMPH # 1.5 103/ul Normal 1.2-3.8 [facility] Comment on above: Performed By: #### C BC ####[facility] Wqykfuaues8[address] [place], [place] [address]Dr. Shanikaannie Hemphill Lymphocytes/100 WBC (Bld) 19.0 % Critically low 20.5-60.0 [place] Comment on above: Performed By: #### C BC ####[facility] Tjleufmnbk25[address] [place], [place] [address]Dr. Shanikaannie Hemphill MANUAL DIFF REQ NO Normal [facility] Comment on above: Performed By: #### C BC ####[facility] Jzwtgyszlq8[address] [place] [address]Dr. Lizandro Hemphill MCH (RBC) [Entitic mass] 27.2 pg Normal 26.7-34.0 [place] Comment on above: Performed By: #### C BC ####[facility] Eucgcdcznl4830 [place] [id number]. Lizandro Joby MCHC (RBC) [Mass/Vol] 31.7 g/dL Normal 29.9-35.2 [facility] Comment on above: Performed By: #### C BC ####[facility] Zgwjyhqqvc5609 [place] [id number]. Lizandro Hemphill MCV (RBC) [Entitic vol] 85.8 fL Normal 81.0-99.0 [facility] Comment on above: Performed By: #### C BC ####[facility] Qavoyaxgkr76[address] [place], [place] [address]Dr. Lizandro Hemphill MONO # 0.8 103/ul Normal 0.3-0.8 [facility] Comment on above: Performed By: #### C BC ####[facility] Xvnkdvaabn[address] [place], [place] [address]Dr. Lizandro Hemphill Monocytes/100 WBC (Bld) 9.9 % Normal 1.7-12.0 [facility] Comment on above: Performed By: #### C BC ####[facility] Jnukddhcgv[address] [place], [place] [address]Dr. Lizandro Hemphill NEUT # 5.4 103/ul Normal 1.4-6.5 [facility] Comment on above: Performed By: #### C BC ####[facility] Ovfsmritem[address] [place], [place] [address]Dr. Lizandro Hemphill Neutrophils/100 WBC (Bld) 68.8 % Normal 43.0-75.0 [facility] Comment on above: Performed By: #### C BC ####[facility] Ihdvottbdo64[address] [place], [place] [address]Dr. Lizandro Hemphill Platelet mean volume (Bld) [Entitic vol] 10.5 fL Normal 9.5-13.5 [facility] Comment on above: Performed By: #### C BC ####[facility] Kqfcotlxcy[address] [place], [place] [address]Dr. Lizandro Hemphill PLT 254 103/ul Normal 150-450 [facility] Comment on above: Performed By: #### C BC ####[facility] Rfxztehxer1004 [place] [id number]. Lizandro Hemphill RBC 4.93 106/ul Normal 4.20-5.40 [place] Comment on above: Performed By: #### C BC ####[facility] Tq[address]uw[address]zi8132 [place], [place] [address]Zh. Lizandro Hemphill WBC 7.8 103/ul Normal 4.0-11.0 [place] Comment on above: Performed By: #### C BC ####[facility] Iegrqnbbwe0123 [place] [id number]. Lizandro Hemphill CRPon 10-18-2021 CRP [Mass/Vol] mg/L Normal <=1.0 [facility] Comment on above: Performed By: #### A MY, CMP, LIPA, BNP, CRP ####[facility] Qzexyqwqzh4[address] [place] [id number]. Lizandro Hemphill CT ABD/PELVIS WO CONon 10-18 CT ABD/PELVIS WO CON Normal [facility] CULTURE BLOODon 10-18-2021 Microscopic examination of blood, culture Culture Observations: NO GROWTH AT 5 DAYS. Normal [facility] Comment on above: Performed By: #### B LDCX2 ####[facility] Esunifufla[address] [place] [address]Dr. Lizandro Hemphill Microscopic examination of blood, culture Culture Observations: NO GROWTH AT 5 DAYS. Normal [place] Comment on above: Performed By: #### B LDCX1 ####[facility] Ndhsvzijeh7835 [place] [id number]. Lizandro Hemphill Covid-19 PCR (CVDTBH)on 09-24 SARS-CoV-2 (COVID-19) RNA VERITO+probe Ql (Unsp spec) Not detected Normal NOT DETECTED [facility] Comment on above: Result Comment: When [...] for this test is supported by the [employer]'s declaration that [...] be used). Performed By: #### C VDTBH ####[facility] Zilzimirgu[address] [place], [place] [address]Dr. Lizandro Hemphill GI PANEL (PCR)on 10-18-2021 Adenovirus F 40/41 Not detected Normal NOT DETECTED [facility] Comment on above: Performed By: #### G IPANEL ####[facility] Tmozumdchm74[address] [place], [place] [address]Dr. Lizandro Hemphill Astrovirus Not detected Normal NOT DETECTED [facility] Comment on above: Performed By: #### G IPANEL ####[facility] Jupdzmagvo3137[address] [place], [place] [address]Dr. Lizandro Hemphill C. Diff toxin A/B Not detected Normal NOT DETECTED [facility] Comment on above: Performed By: #### G IPANEL ####[facility] Kinplewfcp6557[address] [place], [place] [address]Dr. Lizandro Hemphill Campylobacter Not detected Normal NOT DETECTED [facility] Comment on above: Performed By: #### G IPANEL ####[facility] Whqbinxfwq3465[address] [place], [place] [address]Dr. Lizandro Hemphill Cryptosporidium Not detected Normal NOT DETECTED The [facility] Comment on above: Performed By: #### G IPANEL ####[facility] Dndzqcdxdp15[address] [place], [place] [address]Dr. Lizandro Hemphill Cyclos. Cayetanensis Not detected Normal NOT DETECTED [facility] Comment on above: Performed By: #### G IPANEL ####[facility] Myvqbpphiw[address] [place], [place] [address]Dr. Lizandro Hemphill E. Coli O157 Not Applicable Normal Not Applicable [facility] Comment on above: Performed By: #### G IPANEL ####[facility] Opakdifvvi9213[address] [place], [place] [address]Dr. Lizandro Hemphill E. histolytica Not detected Normal NOT DETECTED The [facility] Comment on above: Performed By: #### G IPANEL ####[facility] Aphjngpabu10[address] [place], [place] [address]Dr. Shanikaannie Hemphill EAEC Not detected Normal NOT DETECTED [facility] Comment on above: Performed By: #### G IPANEL ####[facility] Irevuukiam0023[address] [place], [place] [address]Dr. [facility] EIEC Not detected Normal NOT DETECTED [facility] Comment on above: Performed By: #### G IPANEL ####[facility] Nmbdsrnujf26[address] [place], [place] [address]Dr. [facility] EPEC Not detected Normal NOT DETECTED [facility] Comment on above: Performed By: #### G IPANEL ####[facility] Oagqasncwk1139[address] [place], [place] [address]Dr. [facility] ETEC Not detected Normal NOT DETECTED [facility] Comment on above: Performed By: #### G IPANEL ####[facility] Rntwtfrxbz8637[address] [place], [place] [address]Dr. Shanikaannie Hemphill G. Lamblia Not detected Normal NOT DETECTED [facility] Comment on above: Performed By: #### G IPANEL ####[facility] Agixzhfhbo0432[address] [place], [place] [address]Dr. Lizandro Hemphill GIPANEL CONTROLS PASSED Normal [facility] Comment on above: Performed By: #### G IPANEL ####[facility] Yklcurflig7[address] [place], [place] [address]Dr. Lizandro LEHMANNL CARIE HEADER GI PANEL BACTERIA Normal [facility] Comment on above: Performed By: #### G IPANEL ####[facility] Rmyaxffwnt9984[address] [place], [place] [address]Dr. Lizandro LEHMANNLHD ECOLI GI PANEL DIARRHEAGEN IC E.COLI / SHIGELLA Normal [facility] Comment on above: Performed By: #### G IPANEL ####[facility] Skppmbxkfp26[address] [place] [address]Dr. Lizandro Hemphill GIPNLHD INFO SEE BELOW Normal [facility] Comment on above: Result Comment: EAEC - Enteroaggregative E. Coli EPEC- Enteropathogenic E. Coli ETEC- Enterotoxigenic E. Coli lt/st STEC- Shigella-like toxin-producing E. Coli stx1/stx2 EIEC- Shigella/Enteroinvasive E. Coli Performed By: #### G IPANEL ####[facility] Epomomcfcg847[address] [place], [place] [address]Dr. Lizandro Hemphill GIPNLHD PARASITES GI PANEL PARASITES Normal [facility] Comment on above: Performed By: #### G IPANEL ####[facility] Etazpalvzl[address] [place], [place] [address]Dr. Lizandro Hemphill GIPFRANCESHD VIRUS GI PANEL VIRUSES Normal The [facility] Comment on above: Performed By: #### G IPANEL ####[facility] Ubekkqjmci598[address] [place], [place] [address]Dr. Lizandro Hemphill Norovirus GI/GII Not detected Normal NOT DETECTED [facility] Comment on above: Performed By: #### G IPANEL ####[facility] Mxfsfewotx72[address] [place], [place] [address]Dr. Lizandro Hemphill P. Shigelloides Not detected Normal NOT DETECTED The [facility] Comment on above: Performed By: #### G IPANEL ####[facility] Rrkjujwzoa5194[address] [place], [place] [address]Dr. Lizandro Hemphill Rotavirus A Not detected Normal NOT DETECTED The [facility] Comment on above: Performed By: #### G IPANEL ####[facility] Mwahcqfrgd[address] [place], [place] [address]Dr. Lizandro Hemphill Salmonella Not detected Normal NOT DETECTED [facility] Comment on above: Performed By: #### G IPANEL ####[facility] Ohuzxnqqzk660[address] [place], [place] [address]Dr. Lizandro Hemphill Sapovirus Not detected Normal NOT DETECTED [facility] Comment on above: Performed By: #### G IPANEL ####[facility] Tlhcndjlbq7[address] [place], [place] [address]Dr. Lizandro Hemphill STEC Not detected Normal NOT DETECTED [facility] Comment on above: Performed By: #### G IPANEL ####[facility] Gmqnohzxfw1347[address] [place], [place] [address]Dr. Lizandro Hemphill Vibrio Not detected Normal NOT DETECTED [facility] Comment on above: Performed By: #### G IPANEL ####[facility] Exjqyjypve0[address] [place], [place] [address]Dr. Lizandro Hemphill Vibrio Cholera Not detected Normal NOT DETECTED The [facility] Comment on above: Performed By: #### G IPANEL ####[facility] Obsylqgsok6004[address] [place], [place] [address]Dr. Lizandro Hemphill Y. Enterocolitica Not detected Normal NOT DETECTED [facility] Comment on above: Performed By: #### G IPANEL ####[facility] Bbaxpdkshv[address] [place], [place] [address]Dr. Lizandro Hemphill LACTATE/LACTIC ACIDon 2021 Lactate [Moles/Vol] 1.1 mmol/L Normal 0.4-1.9 [facility] Comment on above: Performed By: #### L ACT ####[facility] Vcmpipkltb8[address] [place], [place] [address]Dr. Lizandro Hemphill LIPASEon 10-18-2021 Lipase [Catalytic activity/Vol] 151.0 U/L Normal 73.0-393.0 [place] Comment on above: Performed By: #### A MY, CMP, LIPA, BNP, CRP ####[facility] Odsrjwvrhj25[address] [place], [place] [address]Dr. Lizandro Hemphill PROF 14(COMP METB)on 022 Albumin [Mass/Vol] 3.7 g/dL Normal 3.4-5.0 The [facility] Comment on above: Performed By: #### A MY, CMP, LIPA, BNP, CRP ####[facility] Wpmeyohxhi156[address] [place], [place] [address]Dr. Lizandro Hemphill Albumin/Globulin [Mass ratio] 0.9 {ratio} Normal [place] Comment on above: Performed By: #### A MY, CMP, LIPA, BNP, CRP ####[facility] Iovynnisvl7210 [place] [address]Dr. Lizandro Hemphill ALP [Catalytic activity/Vol] 114 U/L Normal 46-116 [facility] Comment on above: Performed By: #### A MY, CMP, LIPA, BNP, CRP ####[facility] Fzgwvuyvnz18[address] [place] [address]Dr. Lizandro Hemphill ALT [Catalytic activity/Vol] 26 U/L Normal 14-59 [facility] Comment on above: Performed By: #### A MY, CMP, LIPA, BNP, CRP ####[facility] Wvwyegjquh7128 [place] [address]Dr. Lizandro Hemphill Anion gap [Moles/Vol] 13.7 mmol/L Normal [place] Comment on above: Performed By: #### A MY, CMP, LIPA, BNP, CRP ####[facility] Fcsdwhqfbb[address] [place], [place] [address]Dr. Lizandro Hemphill AST [Catalytic activity/Vol] 30 U/L Normal 15-37 [facility] Comment on above: Performed By: #### A MY, CMP, LIPA, BNP, CRP ####[facility] Rbwlwitqna0480 [place] [address]Dr. Lizandro Hemphill Bilirubin [Mass/Vol] 0.3 mg/dL Normal 0.2-1.0 [place] Comment on above: Performed By: #### A MY, CMP, LIPA, BNP, CRP ####[facility] Yfcniijdol3315 [place] [address]Dr. Lizandro Hemphill Calcium [Mass/Vol] 9.1 mg/dL Normal 8.5-10.1 The [facility] Comment on above: Performed By: #### A MY, CMP, LIPA, BNP, CRP ####[facility] Zbywhsvezp4934 [place] [address]Dr. Lizandro Hemphill Chloride [Moles/Vol] 102 mmol/L Normal 98-107 [facility] Comment on above: Performed By: #### A MY, CMP, LIPA, BNP, CRP ####[facility] Txuyfcyyll09[address] [place] [address]Dr. Lizandro Hemphill CO2 [Moles/Vol] 26.9 mmol/L Normal 21.0-32.0 The [facility] Comment on above: Performed By: #### A MY, CMP, LIPA, BNP, CRP ####[facility] Vnfvzuncvo7641 [place] [address]Dr. Lizandro Hemphill Creatinine [Mass/Vol] 0.79 mg/dL Normal 0.55-1.02 [facility] Comment on above: Performed By: #### A MY, CMP, LIPA, BNP, CRP ####[facility] Xnqnhwymdq6951 [place] [address]Dr. Lizandro Hemphill EGFR-AF [place]IZ[place] >60 Normal >=60 [facility] Comment on above: Performed By: #### A MY, CMP, LIPA, BNP, CRP ####[facility] Pahrgpaneo[address] [place] [address]Dr. Lizandro Hemphill EGFR-NON AF [place]IZ[place] OF [place] >60 Normal >=60 [facility] Comment on above: Performed By: #### A MY, CMP, LIPA, BNP, CRP ####[facility] Lobbdlbjci0632 [place] [address]Dr. Lizandro Hemphill Globulin (S) [Mass/Vol] 4.0 g/dL Normal [facility] Comment on above: Performed By: #### A MY, CMP, LIPA, BNP, CRP ####[facility] Dpjpmnkujl8787 [place] [address]Dr. Lizandro Hemphill Glucose [Mass/Vol] 96 mg/dL Normal 74-106 The [facility] Comment on above: Performed By: #### A MY, CMP, LIPA, BNP, CRP ####[facility] Dysqqydqfc0659 [place] [address]Dr. Lizandro Hemphill Potassium [Moles/Vol] 3.6 mmol/L Normal 3.5-5.1 [facility] Comment on above: Performed By: #### A MY, CMP, LIPA, BNP, CRP ####[facility] Fjudsxvpbg8511 [place] [address]Dr. Shanikaannie Hemphill Protein [Mass/Vol] 7.7 g/dL Normal 6.4-8.2 [facility] Comment on above: Performed By: #### A MY, CMP, LIPA, BNP, CRP ####[facility] Dezlbbywkj0788 [place] [address]Dr. Lizandro Hemphill Sodium [Moles/Vol] 139 mmol/L Normal 136-145 The [facility] Comment on above: Performed By: #### A MY, CMP, LIPA, BNP, CRP ####[facility] Tzmnwdyffq224[address] [place], [place] [address]Dr. Lizandro Hemphill Urea nitrogen [Mass/Vol] 15.0 mg/dL Normal 7.0-18.0 [place] Comment on above: Performed By: #### A MY, CMP, LIPA, BNP, CRP ####[facility] Aucfcmofpi39[address] [place], [place] [address]Dr. Lizandro Hemphill Urea nitrogen/Creatinin e [Mass ratio] 19.0 mg/mg Normal [facility] Comment on above: Performed By: #### A MY, CMP, LIPA, BNP, CRP ####[facility] Hdwlhczvdq[address] [place], [place] [address]Dr. Lizandro Hemphill PROTIMEon 10-18-2021 INR Coag (PPP) [Relative time] 1.66 {INR} Normal [facility] Comment on above: Performed By: #### P T, PTT ####[facility] Ackiwhtgxl5160[address] [place], [place] [address]Dr. Lizandro Hemphill INR GUIDELINES SEE BELOW Normal [facility] Comment on above: Result Comment: GUEVARA RED INR: 2.0 - 3.0 CONDITIONS NOT LISTED BELOW 2.5 - 3.5 FOR PROSTHETIC HEART VALVE REPLACEMENT 2.5 - 3.5 RECURRENT THROMBOSIS Performed By: #### P T, PTT ####[facility] Tagpoknpkz77[address] [place], [place] [address]Dr. Lizandro Hemphill PT Coag (PPP) [Time] 17.3 s Critically high 9.0-11.6 [facility] Comment on above: Performed By: #### P T, PTT ####[facility] Ayxbgkrols6910[address] [place], [place] [address]Dr. Lizandro Hemphill PTTon 10-18-2021 aPTT Coag (Bld) [Time] 38.3 s Critically high 22.3-36.2 [facility] Comment on above: Performed By: #### P T, PTT ####[facility] Cbqdvfcivy87[address] [place], [place] [address]Dr. Lizandro Hemphill UA RANDOM W/MICROSCOPICon BACTERIA TRACE Abnormal NONE SEEN [facility] Comment on above: Performed By: #### U AMIC ####[facility] Qqthtnarwd8[address] [place], [place] [address]Dr. Lizandro Hemphill Bilirubin Ql (U) Negative Normal NEGATIVE The [facility] Comment on above: Performed By: #### U AMIC ####[facility] Axcvectazg8[address] [place], [place] [address]Dr. Lizandro Hemphill CAST NONE SEEN Normal NONE SEEN [facility] Comment on above: Performed By: #### U AMIC ####[facility] Xsriepsfsa[address] [place], [place] [address]Dr. Lizandro Hemphill Clarity (U) CLEAR Normal CLEAR [facility] Comment on above: Performed By: #### U AMIC ####[facility] Pmtguuymun7[address] [place], [place] [address]Dr. Lizandro Hemphill Color (U) LT. YELLOW Normal YELLOW [facility] Comment on above: Performed By: #### U AMIC ####[facility] Qhpebnygfj15[address] [place], [place] [address]Dr. Lizandro Hemphill Crystals LM Nom (Urine sed) NONE SEEN Normal NONE SEEN [facility] Comment on above: Performed By: #### U AMIC ####[facility] Vvbppkoetb[address] [place], [place] [address]Dr. Lizandro Hemphill Epithelial cells LM Ql (Urine sed) RARE Normal NONE SEEN /RARE [facility] Comment on above: Performed By: #### U AMIC ####[facility] Vgeiupfgso8475 [place] [address]Dr. Lizandro Hemphill Glucose Ql (U) Negative Normal NEGATIVE [facility] Comment on above: Performed By: #### U AMIC ####[facility] Zpxertdpft9354 [place] [address]Dr. Lizandro Hemphill Hemoglobin Ql (U) Negative Normal NEGATIVE The [facility] Comment on above: Performed By: #### U AMIC ####[facility] Ifgseoxqes1943 [place] [address]Dr. Lizandro Hemphill Ketones Ql (U) Negative Normal NEGATIVE [facility] Comment on above: Performed By: #### U AMIC ####[facility] [address] [place], [place] [address]Dr. Lizandro Hemphill LEUKOCYTES Negative Normal NEGATIVE [facility] Comment on above: Performed By: #### U AMIC ####[facility] Gi[address] [place], [place] [address]Dr. Lizandro Hemphill MUCOUS NONE SEEN Normal NONE SEEN [facility] Comment on above: Performed By: #### U AMIC ####[facility] [address] [place], [place] [address]Dr. Lizandro Hemphill Nitrite Ql (U) Negative Normal NEGATIVE [facility] Comment on above: Performed By: #### U AMIC ####[facility] [address] [place], [place] [address]Dr. Lizandro Hemphill pH (U) 6.5 [pH] Normal 5-9 [facility] Comment on above: Performed By: #### U AMIC ####[facility] [address] [place], [place] [address]Dr. Lizandro Hemphill RBC NONE SEEN Abnormal 0-2 [facility] Comment on above: Performed By: #### U AMIC ####[facility] Fatf[address]vq[address] [place], [place] [address]Dr. Lizandro Hemphill SPEC GRAVITY <=1.005 Abnormal 1.005-<=1.[address] [facility] Comment on above: Performed By: #### U AMIC ####[facility] [address] [place], [place] [address]Gz. Lizandro Hemphill UA PROTEIN Negative Normal NEGATIVE/ TRACE [facility] Comment on above: Performed By: #### U AMIC ####[facility] Ghqrbfkbcg7815 [place], [place] [address]Xf. Lizandro Hemphill Urobilinogen Qn (U) 0.2 {Cassy'U}/dL Normal 0.2 - 1.0 [facility] Comment on above: Performed By: #### U AMIC ####[facility] [address] [place], [place] [address]Gs. Lizandro Hemphill WBC 0-2 Abnormal NONE SEEN [facility] Comment on above: Performed By: #### U AMIC ####[facility] [address] [place] [address]Dr. Lizandro Hemphill Ambulatory Visit Summaryon 0 09-27-2021 Ambulatory Visit Summary POWERYESSENIA LAURENDean Perera :1960 Visit Date:09/27/2021 Ambulatory Visit Instructions [...] Sinus tachycardia Varicose veins of legs Normal [facility] PROTIMEon 09-20-2021 INR Coag (PPP) [Relative time] {INR} Normal [facility] Comment on above: Performed By: #### P T ####[facility] [address] [place] [id number]. Lizandro Hemphill INR GUIDELINES SEE BELOW Normal [facility] Comment on above: Result Comment: GUEVARA RED INR: 2.0 - 3.0 CONDITIONS NOT LISTED BELOW 2.5 - 3.5 FOR PROSTHETIC HEART VALVE REPLACEMENT 2.5 - 3.5 RECURRENT THROMBOSIS Performed By: #### P T ####[facility] [address] [place] [address]DrCiro Hemphill PT Coag (PPP) [Time] 9.7 s Normal 9.0-11.6 [facility] Comment on above: Performed By: #### P T ####[facility] [address] [place] [address]Dr. Lizandro Hemphill Covid-19 PCR ([facility]on 08-25 SARS-CoV-2 (COVID-19) RNA VERITO+probe Ql (Unsp spec) Not detected Normal NOT DETECTED [facility] Comment on above: Result Comment: When [...] for this test is supported by the Urban [employer] of Health and Human Service's declaration that [...] longer be used). Performed By: #### C [facility] ####[facility] [address] [place], [place] [address]Vr. Lizandro Hemphill Physician Referralon 022 Physician Referral [phone] [id number]:127 Normal [facility] GI Letteron 12-31-2017 GI Letter [facility] Fax:Division of [phone] gy Clinic Phone:[facility] [phone] [facility] Fax:[place] [phone] [place], [place] [address]UJ: Patient Name: Feroz Power MR #: [id number] Date of : 1960 Date of Service:12/28/2017Tatiana Murphy Jr, D.O.[id number] Dr. Murphy:I had the pleasure of seeing [...] P Christopher Valencia M.D.Date Dict: 12/29/2017/02:03 P/Christopher Valecnia M.D.Date Trans: 12/30/2017 04:04 A/mmoRevised: 12/31/2017 07:52 A/paCopy/[id number]: Ezekiel Deras M.D. [address] [address] Tatiana Murphy Jr, D.O. [address] [place], [place] [id number] [facility] Operative Reporton 8 Operative Report MR#: [id number] [facility] Pt. Name: Feroz Power Room #: 0C Discharge Date: Birthdate: 1960 OPERATIVE REPORTDATE OF SURGERY: 09/17/2017SURGEON: Jermaine Hernández M.D.SIFTER OPERATOR: Ssusy Prince M.D.PREOPERATIVE DIAGNOSIS: Left wrist extensor carpi [...] 09/17/2017/10:36 Ruiz/Jermaine Hernández M.D.Date Trans: 09/17/2017 01:02 PCameron_JN:[id number] c: Ezekiel Deras M.D. [address], [facility] Ruiz [facility] [address] Normal [facility] POC GLUCOSE LABon 09-17-2017 Glucose mass conc 74 mg/dL Normal 70-100 [facility] Comment on above: Performed By: #### 8 5499 ####[facility] Vital Signs Date Time Vital Sign Value Performing Clinician Faci lity 09-27-2021 15:12-0400 Blood Pressure Location [facility] 09-27-2021 15:12-0400 Diastolic blood pressure 76 mm[Hg] [facility] 09-27-2021 15:12-0400 Heart rate 68 /min [facility] 09-27-2021 15:12-0400 Respiratory rate 16 /min [facility] 09-27-2021 15:12-0400 Systolic blood pressure 116 mm[Hg] [facility]ieMobili[facility] Encounters Encounter Date Encounter Type Care Provider Facility Start: 09-19-2023 End: 09-19-2023 ambulatory SUKI ROBLERO V [facility] Start: 09-13-2023 End: 09-13-2023 ambulatory [facility] Start: 09-08-2023 ambulatory EZEKIEL Chowdhury Radha [facility] Start: 09-07-2023 End: 09-07-2023 ambulatory [facility] Start: 08-23-2023 ambulatory [facility] Start: 11-20-2022 ambulatory ALESSIA WHITE [facility] Start: 09-29-2022 End: 09-30-2022 ambulatory [facility] Start: 08-09-2022 End: 08-10-[address] EZEKIEL DERAS . Facility:[facility]1 Start: 07-30-2022 End: 07-31-2022 Evaluation and management of inpatient DR EZEKIEL DERAS . Facility:[facility] Start: 07-24-2022 End: 08-23-2022 ambulatory SHAIKH Alistair SINGH Facility:[facility] Start: 07-13-2022 ambulatory MARCELA GHOSH . Facility:[facility] Start: 06-27-2022 End: 06-28-2022 Evaluation and management of inpatient DR EZEKIEL DERAS . Facility:[facility] Start: 06-27-2022 ambulatory MARCELA GHOSH . Facility:[facility] Start: 06-26-2022 End: 07-21-2022 ambulatory SHAIKH Alistair SINGH Facility:[facility] Start: 06-13-2022 End: 06-14-2022 ambulatory MARCELA GHOSH . Facility:[facility] Start: 05-29-2022 End: 05-31-2022 Evaluation and management of inpatient DR EZEKIEL DERAS . Facility:[facility] Start: 05-24-2022 End: 06-23-2022 ambulatory SHAIKH Alistair SINGH Facility:[facility] Start: 05-22-2022 End: 05-23-[address] DAJA GÓMEZ . Facility:[facility] Start: 05-03-2022 End: 05-06-[address] EZEKIEL DERAS . Facility:[facility] Start: 04-27-2022 ambulatory REBECCA NUNES . Facility:H 1 Start: 04-26-2022 End: 05-24-2022 ambulatory SHAIKH Alistair FAWMARCELA Facility:[facility] Start: 04-13-2022 End: 04-13-2022 ambulatory MARLON ARREOLA Facility:[facility] Start: 03-27-2022 End: 04-26-2022 ambulatory SHAIKH Alistair FABILLY Facility:[facility] Start: 03-09-2022 ambulatory REBECCA NUNES . [...] preprocedural laboratory examination DR FELIX MALCOLM . [place] Start: 01-17-2022 End: 01-17-[address] FELIX [...] Start: 10-30-2021 End: 10-30-[address] RENATO HAY . Facility:[facility] Start: 10-26-2021 Encounter for preprocedural laboratory examination DR EZEKIEL DERAS . [facility] Start: 10-25-2021 End: 10-25-[address] [...] Patient encounter procedure Alessia BOSS General [facility]/Vanessa [facility] Start: 09-23-2021 End: 10-21-2021 ambulatory SHAIKH Alistair SINGH Facility: Start: 09-20-2021 End: 09-20-[address] EZEKIEL DERAS . Facility: Start: 09-16-2021 End: 09-17-[address] EZEKIEL DERSA . Facility: Start: 09-15-[address] EZEKIEL DERAS . Facili ty: Start: 12-28-2017 End: 12-29-2017 Patient encounter CHRISTOPHER VALENCIA Facility:[facility] Start: 10-25-2017 End: 11-24-2017 Patient encounter MICHAEL HERNÁNDEZ Facility:[facility] Start: 09-17-2017 End: 09-18-2017 Patient encounter MICHAEL HERNÁNDEZ Facility:[facility] Procedures Date Procedure Procedure Detail Performing Clinician Start: 11-20-2022 Follow-up visit Follow-up ALESSIA WHITE Start: 05-29-2022 Insertion of Infusion Device into Upper Vein, Percutaneous Approach DR EZEKEIL DERAS . Start: 05-27-2022 Insertion of Infusion [...] 12-28-2017 Esophagogastroduodenoscopy [EGD] with closed biopsy CHRISTOPHER Dean ERIK Start: 09-17-2017 ANESTH LOWER ARM SURGERY AGUSTO RON Start: 09-17-2017 REPAIR FOREARM TENDON/MUSCLE ABDULAZIM M USTAPHA Appendectomy [facility] Cervical arthrodesis [facility] Comment on above: C5-C8 Cholecystectomy [facility] History of operative procedure on knee [facility] Structure of ligamen t of ankle joint (body structure) [facility] Total abdominal hyst erectomy with bilateral salpingo-oophorectomy [facility] Payers Date Payer Category Payer [employer] [id number] 2017 [employer] [id number] 1960 Unknown [id number] 2.16.840.1.940833.3.579.2.647 1960 Unknown [id number] 2.16.840.1.078026.3.579.2.647 1960 Unknown [id number] 2.16.840.1.922486.3.579.2.647 1960 Unknown [id number] 2.16.840.1.649367.3.579.2.593 1960 Unknown [id number] 2.16.840.1.662350.3.579.2.593 1961 Unknown [id number] 2.16.840.1.777801.3.579.2.593 1961 Unknown [id number] 2.16.840.1.086818.3.579.2.593 1961 Unknown [id number] 2.16.840.1.039419.3.579.2.593 1961 Unknown [id number] 2.16.840.1.643268.3.579.2.593 1961 Unknown [id number] 2.16.840.1.651318.3.579.2.593 1961 Unknown [id number] 2.16.840.1.906816.3.579.2.593 1961 Unknown [id number] 2.16.840.1.647224.3.579.2.593 1961 Unknown [id number] 2.16.840.1.532452.3.579.2.593 1961 Unknown [id number] 2.16.840.1.541899.3.579.2.593 1961 Unknown [id number] 2.16.840.1.390142.3.579.2.593 1961 Unknown [id number] 2.16.840.1.242816.3.579.2.593 1961 Unknown [id number] 2.16.840.1.128322.3.579.2.593 1961 Unknown [id number] 2.16.840.1.977805.3.579.2.593 1961 Unknown [id number] 2.16.840.1.765386.3.579.2.593 1961 Unknown [id number] 2.16.840.1.691800.3.579.2.593 1961 Unknown [id number] 2.16.840.1.239853.3.579.2.593 1961 Unknown [id number] 2.16.840.1.016512.3.579.2.593 1961 Unknown [id number] 2.16.840.1.955736.3.579.2.593 1961 Unknown [id number] 2.16.840.1.086784.3.579.2.593 1961 Unknown [id number] 2.16.840.1.700185.3.579.2.593 1961 Unknown [id number] 2.16.840.1.291373.3.579.2.593 1961 Unknown [id number] 2.16.840.1.736717.3.579.2.593 1961 Unknown [id number] 2.16.840.1.682387.3.579.2.593 1961 Unknown [id number] 2.16.840.1.212024.3.579.2.593 1961 Unknown [id number] 2.16.840.1.291716.3.579.2.593 1961 Unknown [id number] 2.16.840.1.054406.3.579.2.593 1961 Unknown [id number] 2.16.840.1.446096.3.579.2.593 1961 Unknown [id number] 2.16.840.1.220477.3.579.2.593 1961 Unknown [id number] 2.16.840.1.710101.3.579.2.593 1961 Unknown [id number] 2.16.840.1.169447.3.579.2.593 1961 Unknown [id number] 2.16.840.1.167693.3.579.2.593 1961 Unknown [id number] 2.16.840.1.436491.3.579.2.593 1961 Unknown [id number] 2.16.840.1.725334.3.579.2.593 1961 Unknown [id number] 2.16.840.1.715385.3.579.2.593 1961 Unknown [id number] 2.16.840.1.794258.3.579.2.593 1961 Unknown [id number] 2.16.840.1.439989.3.579.2.593 1961 Unknown [id number] 2.16.840.1.770624.3.579.2.593 1961 Unknown [id number] 2.16.840.1.591443.3.579.2.593 1961 Unknown [id number] 2.16.840.1.668235.3.579.2.593 1961 Unknown [id number] 2.16.840.1.795214.3.579.2.593 1961 Unknown [id number] 2.16.840.1.173052.3.579.2.593 1961 Unknown [id number] 2.16.840.1.837501.3.579.2.593 1961 Unknown [id number] 2.16.840.1.248195.3.579.2.593 1961 Unknown [id number] 2.16.840.1.379331.3.579.2.593 1961 Unknown [id number] 2.16.840.1.292927.3.579.2.1286 1961 Unknown [id number] 2.16.840.1.728778.3.579.2.1286 1961 Unknown [id number] 2.16.840.1.601936.3.579.2.1286 1961 Unknown [id number] 2.16.840.1.753612.3.579.2.1286 1961 Unknown [id number] 2.16.840.1.222913.3.579.2.1286 1961 Unknown [id number] 2.16.840.1.326908.3.579.2.1286 1958 [employer] ( [employer] others) [id number] 1958 Medicare [id number] 1958 Self-pay [id number] Social History Date Type Detail Facility Start: 09-27-2021 Tobacco smoking status Never s moked tobacco (finding) [facility] Tobacco smoking status Never Gener al [facility] Sex Assigned At Female Genera l [facility] Functional Status Date Assessment Result Facility 09-27-2021 Functional Status N/A [facility] Clinical Note 09-29-2022 Note Date & Type Note Facility 09-29-2022 Note Called pt to schedchula e consultation for Cervical Stenosis. Pt states that she was seen in the ED on 09/27 and is scheduled for surgery on 10/[address] Valenzuela[address] [facility] Consultation note 06-13-2022 Note Date & Type Note Facility 06-13-2022 Note [facility] Consultation note 01-05-2022 Note Date & Type Note Facility 01-05-2022 Note [facility] Consultation note 11-17-2021 Note Date & Type Note Facility 11-17-2021 Note [facility] Clinical Note 10-10-2021 Note Date [...] (at bedtime), PRN (more content not included)... [facility] Comment on above: Result Comment: Elec tronically Signed By: KARYN COE, Alessia Silverman\Date and Time Signed: 10/10/21 10:36 EDT Consultation note 10-06-2021 Note Date & Type Note Facility 10-06-2021 Note [facility] pital Evaluation + Plan note Note Date & Type Note Facility Evaluation + Plan note No data available for this section [facility] Discharge instructions Note Date & Type Note Facility Hospital Discharge instructions No data available for this section [facility] Progress note Note Date & Type Note Facility Progress note No data available for this section [facility] Summary Purpose Family History No Family History [...] Directives Records Found Procedure Findings Note MR#: [id number] Pt. Name: Feroz Power Surgery Date: [...] and content) DATE CREATED AUTHOR 01/27/2018 [facility] DATE CREATED AUTHOR AUTHOR'S ORGANIZ ATION 10/14/2021 [facility] DATE CREATED AUTHOR AUTHOR'S ORGANIZ ATION 09/01/2022 [facility] DATE CREATED AUTHOR AUTHOR'S ORGANIZ ATION 10/27/2022 [facility] DATE CREATED AUTHOR AUTHOR'S ORGANIZ ATION 09/08/2023 [facility] DATE CREATED AUTHOR AUTHOR'S ORGANIZ ATION 09/13/2023 [facility] DATE CREATED AUTHOR AUTHOR'S ORGANIZ ATION 09/20/2023 [facility] Care Team (unrecognized sect ion and content) Personnel Name: Ezekiel Deras MD Address: [address] [place] [address] FOR RECORDS PERTAINING TO PATIENTS WHO ARE [...] BE BASED ON THE PRIMARY CLINICAL RECORDS. [facility] [facility]. provides no warranty or guarantee of the accuracy or completeness of information in this document.
--- NOTE | 2023-11-26 09:12 | P.DS_ITS ---
DS: Providers Provider Date of admission: 11/23/23 12:55 Primary care physician: Travis Deras MD Consults: 11/23/23 12:47 Consult to Pharmacy Routine Consulting Provider: Reason for consultation: Please [place] me when Med Rec is Updated Has provider been notified: No DS: Diagnosis Discharge Diagnosis (1) Acute hypokalemia: (2) Kidney calculi: (3) Abdominal pain: (4) Acute dehydration: Plan Admission findings: Patient with failed outpatient treatment home medications of Phenergan and Levsin. Unable to improve nausea vomiting secondary to acute diverticulitis. Unable to documented on CT scan secondary to no IV contrast or oral contrast. Patient medical workup and treatment of same with significant elevation in her BUN and a decrease in her potassium consistent with dehydration Left lower quad abdominal pain consistent with diverticulitis-the time of discharge Acute pancreatitis-resolved at the time of discharge Acute dehydration-resolved at the time of discharge Hypokalemia-resolved at the time of discharge Protein S deficiency-improving at the time of discharge Renal calculi-nonobstructing, check on urine sample Insomnia-continue with home medications Admission status: Plan was to have patient likely discharged home today. Patient developed pancreatitis on day 2. Better today. But not improved to the point that she can tolerate eating. Highly likely she would just return, we will keep 1 additional day of discharge tomorrow if can remain stable and eat some DS: Summary Hospital Course Hospital Course: Patient was seen and evaluated in the office with increasing abdominal pain consistent with her previous history of diverticulitis. Patient was referred to ER, direct admission is not available, ER evaluation in a noncontrasted study did not show the diverticulitis. But unlikely to without the contrast. Patient with contrast allergy, patient was treated with IV antibiotics and pain control, symptoms progressed and the following morning she had elevation in her amylase and lipase with elevation of liver function test consistent with acute pancreatitis. Medications were adjusted, she was n.p.o. for for all of day 2 and into day 3 of the hospitalization, her amylase and lipase did improve we advanced her diet yesterday. Her amylase and lipase have stayed improved, her liver function is improved, her abdominal pain is improved. At this point she is medically stable for discharge to home. Follow-up with me in the office in the next 2 to 3 days. Medications see list. Status at Discharge Overall status at discharge: patient is not back to baseline Time Spent with Patient Time attestation: Total time spent providing and/or coordinating discharge services: Time spent: greater than 30 minutes Exam Constitutional Vital Signs, click to edit/add: Last Vital Signs Temp 98.2 F 11/26/23 08:20 Pulse 91 H 11/26/23 08:20 Resp 18 11/26/23 08:20 BP 143/77 H 11/26/23 08:20 Pulse Ox 94 L 11/26/23 08:20 O2 Del Method Room Air 11/26/23 08:20 Documenting provider has reviewed patient's vital signs: yes Common normals: apparent distress (Just mild distress this morning overall appears somewhat improved) Lymph Lymphatic: no lymphadenopathy noted Respiratory Common normals: normal respiratory effort and no retractions Cardio Common normals: regular rate and regular rhythm GI Common normals: Normal to inspection, nondistended, normoactive bowel sounds present and soft to palpation; tender (Minimal tenderness much improved from admission) Neuro Common normals: oriented x3, CN's II-XII intact bilaterally and moves all extremities DS: Data Data Completed and Pending Labs on day of discharge: Labs from last 24 hours 11/26/23 11/25/23 05:40 11:05 WBC 5.8 RBC 3.64 L Hgb 11.5 L Hct 34.7 L MCV 95.3 MCH 31.6 MCHC 33.1 RDW 14.3 Plt Count 279 MPV 10.2 Neut % (Auto) 58.2 Lymph % (Auto) 23.1 [place] % (Auto) 12.1 H Eos % (Auto) 5.5 Baso % (Auto) 0.9 Neut # (Auto) 3.4 Lymph # (Auto) 1.3 [place] # (Auto) 0.7 Eos # (Auto) 0.3 Baso # (Auto) 0.1 Abs Immat Gran (auto) 0.01 Imm/Tot Granulo (auto) 0.2 PT 21.2 H INR 2.16 Sodium 140 Potassium 3.5 Chloride 104 Carbon Dioxide 30.3 Anion Gap 9.2 BUN 9.0 Creatinine 0.91 Est GFR ( Amer) >60 Est GFR (Non-Af Amer) >60 BUN/Creatinine Ratio 9.9 Glucose 86 Calcium 8.2 L Total Bilirubin 0.3 AST 34 ALT 50 Alkaline Phosphatase 143 H Total Protein 6.3 L Albumin 2.9 L Globulin 3.4 Albumin/Globulin Ratio 0.9 Lipase 52.0 Stool Occult Blood Positive A Discharge Plan Discharge Disposition: Home, Self-Care Discharge Medications: New promethazine 25 mg tablet 25 mg PO Q6H PRN (Reason: nausea and vomiting) Qty: 30 11RF amoxicillin-pot clavulanate 875-125 mg tablet 1 tab PO Q12H Qty: 10 0RF Continued hydroxyzine pamoate [Vistaril] 25 mg capsule 25 mg PO Q6H PRN (Reason: anxiety) amlodipine 5 mg tablet 5 mg PO DAILY warfarin 4 mg tablet 4 mg PO DAILY cyclobenzaprine 10 mg tablet 20 mg PO BEDTIME temazepam 30 mg capsule 30 mg PO BEDTIME amitriptyline 10 mg tablet 20 mg PO QPM Patient Comments: DAILY AT 8 PM gabapentin 100 mg capsule 100 mg PO TID Activity: resume usual activities as tolerated Diet: advance to your usual diet Print Language: Uzbek Patient Instructions: Pancreatitis (DC), Hypokalemia (DC), Acute Nausea and Vomiting (DC), Abdominal Pain (DC) Forms: Portal Instructions Follow Up Appointments: Follow up with Dr. Deras in 7-10 days. [phone] Discharge Date/Time: 11/26/23 10:18
[2023-11-26] MEDS: HYDROXYZINE PAMOATE 25 MG CAPSULE PO (09:39)
--- NOTE | 2023-11-27 14:46 | CM.DCFOLLOWU ---
1st attempt. No answer
--- NOTE | 2023-11-28 14:47 | CM.DCFOLLOWU ---
Phone number provided has been changed or disconnected
[2023-11-30 14:09] LABS: Summary Report (Summary) FINAL (.)
== END 2023-11-26 10:18 | disposition home or self-care (01) | DRG 439 ==
LOC: ER 12:39 → MS 11-26 09:08
PROVIDERS: Admitting Provider Family Medicine; Emergency Provider Emergency Medicine; PCP Family Medicine; Visit Provider Family Medicine
DX: K85.90 Acute pancreatitis without necrosis or infection, unspecified (principal); D68.59 Other primary thrombophilia; K57.92 Diverticulitis of intestine, part unspecified, without perforation or abscess without bleeding; E86.0 Dehydration; E87.6 Hypokalemia; N20.0 Calculus of kidney; Z79.01 Long term (current) use of anticoagulants; M79.7 Fibromyalgia; Z86.73 Personal history of transient ischemic attack (TIA), and cerebral infarction without residual deficits; Z90.710 Acquired absence of both cervix and uterus; Z95.828 Presence of other vascular implants and grafts; G47.00 Insomnia, unspecified; Z91.041 Radiographic dye allergy status
CPT/HCPCS: 36410; 36415; 74176; 80053; 80307; 80326; 80331; 80334; 80337; 80338; 80341; 80344; 80346; 80348; 80353; 80354; 80355; 80357; 80358; 80359; 80360; 80361; 80364; 80365; 80366; 80367; 80368; 80370; 80371; 80372; 80373; 80377; 81001; 81003; 82570; 83605; 83690; 83992; 84484; 85025; 85610; 93005; 94667; 94668; 94761; 96361; 96365; 96366; 96375; 96376; 99285; C1887; G0328; G0378; J1170; J1885; J2175; J2405; J2543; Q0177

== ENCOUNTER 2023-11-26 01:32 | Outpatient (RCR) | payer MEDICARE, OTHER, SELFPAY | END 2023-12-24 23:55 | disposition home or self-care (01) | LOC: MM 01:32 | PROVIDERS: PCP Family Medicine; Visit Provider Internal Medicine | DX: Z51.81 Encounter for therapeutic drug level monitoring (principal); Z79.01 Long term (current) use of anticoagulants; I82.409 Acute embolism and thrombosis of unspecified deep veins of unspecified lower extremity ==

== ENCOUNTER 2023-12-25 02:43 | Outpatient (RCR) | payer MEDICARE, OTHER, SELFPAY | END 2024-01-24 23:44 | disposition home or self-care (01) | LOC: MM 02:43 | PROVIDERS: PCP Family Medicine; Visit Provider Internal Medicine | DX: Z51.81 Encounter for therapeutic drug level monitoring (principal); Z79.01 Long term (current) use of anticoagulants; I82.409 Acute embolism and thrombosis of unspecified deep veins of unspecified lower extremity ==

== ENCOUNTER 2024-01-25 12:36 | Outpatient (RCR) | payer MEDICARE, OTHER, SELFPAY | END 2024-02-23 23:59 | disposition home or self-care (01) | LOC: MM 12:36 | PROVIDERS: PCP Family Medicine; Visit Provider Internal Medicine | DX: Z51.81 Encounter for therapeutic drug level monitoring (principal); Z79.01 Long term (current) use of anticoagulants; I82.409 Acute embolism and thrombosis of unspecified deep veins of unspecified lower extremity ==

== ENCOUNTER 2024-02-25 04:41 | Outpatient (RCR) | payer MEDICARE, OTHER, SELFPAY | END 2024-03-25 09:22 | disposition home or self-care (01) | LOC: MM 04:41 | PROVIDERS: PCP Family Medicine; Visit Provider Internal Medicine | DX: Z51.81 Encounter for therapeutic drug level monitoring (principal); Z79.01 Long term (current) use of anticoagulants; I82.409 Acute embolism and thrombosis of unspecified deep veins of unspecified lower extremity ==

== ENCOUNTER 2024-03-27 01:00 | Outpatient (RCR) | payer MEDICARE, OTHER, SELFPAY | END 2024-04-25 14:41 | disposition home or self-care (01) | LOC: MM 01:00 | PROVIDERS: PCP Family Medicine; Visit Provider Internal Medicine | DX: Z51.81 Encounter for therapeutic drug level monitoring (principal); Z79.01 Long term (current) use of anticoagulants; I82.409 Acute embolism and thrombosis of unspecified deep veins of unspecified lower extremity ==

== ENCOUNTER 2024-04-28 02:26 | Outpatient (RCR) | payer MEDICARE, OTHER, SELFPAY | END 2024-05-23 13:38 | disposition home or self-care (01) | LOC: MM 02:26 | PROVIDERS: PCP Family Medicine; Visit Provider Internal Medicine | DX: Z51.81 Encounter for therapeutic drug level monitoring (principal); Z79.01 Long term (current) use of anticoagulants; I82.409 Acute embolism and thrombosis of unspecified deep veins of unspecified lower extremity ==

== ENCOUNTER 2024-05-25 07:35 | Outpatient (RCR) | payer MEDICARE, OTHER, SELFPAY | END 2024-06-20 13:17 | disposition home or self-care (01) | LOC: MM 07:35 | PROVIDERS: PCP Family Medicine; Visit Provider Internal Medicine | DX: Z51.81 Encounter for therapeutic drug level monitoring (principal); Z79.1 Long term (current) use of non-steroidal anti-inflammatories (NSAID) ==

== ENCOUNTER 2024-06-17 11:15 | Emergency (ER) | payer MEDICARE, OTHER, SELFPAY ==
[2024-06-17 11:19] VITALS: BP 128/86; PULSE 99; TEMP 36.9; O2SAT 98; BMI 22.7
--- NOTE | 2024-06-17 11:39 | ED.GENADUL1 ---
HPI HPI - General Adult General Chief complaint: Shortness of Breath/Dyspnea Stated complaint: SENT BY [facility] Time Seen by Provider: 06/17/24 11:18 Source: patient Mode of arrival: walk-in Limitations: no limitations History of Present Illness HPI narrative: Patient states 4 days ago she woke up with respiratory symptoms, cough and congestion and became dizzy. She fell striking her chest wall against the floor. She went to [facility] ER. Imaging of the chest did not report any fractures. She was placed on steroids and her PCP has added inhalers and antibiotics. She reports worsening symptoms today with difficulty breathing some hoarseness of voice and sharp left-sided chest pain when she breathes or moves. Related Data Home Medications ?Medication ?Instructions ?Recorded ?Confirmed cyclobenzaprine 10 mg tablet 20 mg PO BEDTIME 12/14/22 11/23/23 temazepam 30 mg capsule 30 mg PO BEDTIME 12/14/22 11/23/23 hydroxyzine pamoate 25 mg capsule 25 mg PO Q6H PRN anxiety 01/17/23 11/23/23 (Vistaril) amlodipine 5 mg tablet 5 mg PO DAILY 06/01/23 11/23/23 warfarin 4 mg tablet 4 mg PO DAILY 06/01/23 11/23/23 amitriptyline 10 mg tablet 20 mg PO QPM 11/23/23 11/23/23 gabapentin 100 mg capsule 100 mg PO TID 11/23/23 11/23/23 Previous Rx's ?Medication ?Instructions ?Recorded amoxicillin 875 mg-potassium 1 tab PO Q12H #10 tabs 11/26/23 clavulanate 125 mg tablet promethazine 25 mg tablet 25 mg PO Q6H PRN nausea and 11/26/23 vomiting #30 tabs lidocaine 5 % topical patch 1 patch topical DAILY #10 ea 06/17/24 Allergies Allergy/AdvReac Type Severity Reaction Status Date / Time prochlorperazine (From Allergy Intermediate Unknown Verified 06/17/24 11:23 Compazine) Iodinated Contrast Media AdvReac Severe Anaphylaxis Verified 06/17/24 11:23 ivp Allergy Severe Rash Uncoded 11/23/23 10:40 Opioid HPI Opioid Management Most Recent Opioid Data: Last Pain Scale 6 11/26/23 09:44 11/26/23 Last Pain Intensity 5 01/18/23 09:14 01/18/23 Last ORT Total Score 0 11/23/23 14:43 11/23/23 Last ORT Risk Category Low Risk 11/23/23 14:43 11/23/23 Urine Drug Screen Interp Final (.) 11/23/23 11:45 11/23/23 Ur Phencyclidine Scrn Negative (NEGATIVE) 11/23/23 11:45 11/23/23 Review of Systems ROS Status of ROS 10 or more systems reviewed and unremarkable except as noted in history and below [facility] Medical History Acute hypokalemia ?E87.6 - Hypokalemia (ICD-10) Kidney calculi ?N20.0 - Calculus of kidney (ICD-10) Abdominal pain ?R10.9 - Unspecified abdominal pain (ICD-10) Acute dehydration ?E86.0 - Dehydration (ICD-10) Acute pancreatitis ?K85.90 - Acute pancreatitis without necrosis or infection, unspecified (ICD-10) Gastritis ?K29.70 - Gastritis, unspecified, without bleeding (ICD-10) Intractable abdominal pain ?R10.9 - Unspecified abdominal pain (ICD-10) [place] filter in place ?Z95.828 - Presence of other vascular implants and grafts (ICD-10) Diverticulitis ?K57.92 - Diverticulitis of intestine, part unspecified, without perforation or abscess without bleeding (ICD-10) Gastroenteritis ?K52.9 - Noninfective gastroenteritis and colitis, unspecified (ICD-10) Stroke ?I63.9 - Cerebral infarction, unspecified (ICD-10) Migraine ?G43.909 - Migraine, unspecified, not intractable, without status migrainosus (ICD-10) Fibromyalgia syndrome ?M79.7 - Fibromyalgia (ICD-10) Thoracic outlet syndrome ?G54.0 - Brachial plexus disorders (ICD-10) Protein S deficiency ?D68.59 - Other primary thrombophilia (ICD-10) Surgical History H/O neck surgery ?Z98.890 - Other specified postprocedural states (ICD-10) H/O: hysterectomy ?Z90.710 - Acquired absence of both cervix and uterus (ICD-10) H/O knee surgery ?Z98.890 - Other specified postprocedural states (ICD-10) History of ankle surgery ?Z98.890 - Other specified postprocedural states (ICD-10) Hx of appendectomy ?Z90.49 - Acquired absence of other specified parts of digestive tract (ICD-10) Family History Father Family history of cancer Mother Family history of cancer Sister Family history of cancer Brother Family history of diabetes mellitus Social History Within the past year, how often did you have a drink containing alcohol: never Within the past year, how many standard drinks containing alcohol did you have on a typical day: 1 or 2 Within the past year, how often did you have six or more drinks on one occasion: never Total score: 0 Score interpretation: A score less than 3 is consistent with normal alcohol consumption. Smoking status: Never smoker Non-prescribed substance use: denies use Previous occupational history: disabled Highest level of school completed/degree received: Associate degree: occupational, technical, vocational program Are you now , , , , never or living with a partner: In a typical week, how many times do you talk on the telephone with family, friends, or neighbors: twice per week How often do you get together with friends or relatives: once per week How often do you attend yarsanism or faith services: 4 or more times per year Do you belong to any clubs or organizations such as yarsanism groups unions, fraternal or athletic groups, or school groups: no Total score: 2 Score interpretation: A score of greater than or equal to 2 indicates the lowest level of social isolation. Little interest or pleasure in doing things: not at all Feeling down, depressed, or hopeless: not at all Feel stressed/tense/nervous/anxious/difficulty sleeping: only a little Gender Identity: female Exam Narrative Exam Narrative: Patient has some inspiratory high-pitched sounds vital signs are stable and she is oxygenating well. HEENT exam is normal to inspection. Auscultation lungs reveals a few scattered rhonchi. Heart had regular rhythm S1-S2 normal. Abdomen was soft and benign. Extremities warm and dry there is no unilateral leg swelling or calf tenderness. Speech and mentation are clear and intact. There is no facial asymmetry and she moves all extremities actively. Constitutional Vital Signs, click to edit/add: Last Vital Signs Temp 98.4 F 06/17/24 11:19 Pulse 90 06/17/24 12:04 Resp 24 H 06/17/24 12:03 BP 128/86 06/17/24 11:19 Pulse Ox 98 06/17/24 12:04 O2 Del Method Room Air 06/17/24 12:04 Course Vital Signs Vital signs: Vital Signs Temperature 98.4 F 06/17/24 11:19 Pulse Rate 99 H 06/17/24 11:19 Respiratory Rate 26 H 06/17/24 11:19 Blood Pressure 128/86 06/17/24 11:19 Pulse Oximetry 98 06/17/24 11:19 Oxygen Delivery Method Room Air 06/17/24 11:19 Temperature 98.4 F 06/17/24 11:19 Pulse Rate 90 06/17/24 12:04 Respiratory Rate 24 H 06/17/24 12:03 Blood Pressure 128/86 06/17/24 11:19 Pulse Oximetry 98 06/17/24 12:04 Oxygen Delivery Method Room Air 06/17/24 12:04 Medical Decision Making MDM Narrative Medical decision making narrative: I have reviewed the patient's workup that was done at [facility]. CT scan of the chest was negative for acute findings old left-sided rib fractures are reported. Chest x-ray today does not show any acute findings. Patient was treated with a racemic epinephrine aerosol treatment and that seemed to help her upper airway sounds. She is on steroids, Tessalon, antibiotics and albuterol inhaler at home and I have advised her to continue that. At this time there is no indication to admit her to the hospital and I discussed this with the hospitalist. I am prescribing lidocaine 5% patch for her to use over the left chest wall where she hurts and to seek follow-up with her PCP in the next 2 or 3 days. She may return anytime for worsening symptoms. Discharge Plan Discharge Chief Complaint: Shortness of Breath/Dyspnea Clinical Impression: Chest wall pain Acute bronchitis Qualifiers: Bronchitis organism: unspecified organism Qualified Code(s): J20.9 - Acute bronchitis, unspecified Patient Disposition: Home, Self-Care Time of Disposition Decision: 14:52 Condition: Fair Mode of Transportation: Private Vehicle Prescriptions / Home Meds: New lidocaine 5 % adhesive patch,medicated 1 patch topical DAILY Qty: 10 0RF Rx Instructions: leave on most painful area for up to 12 hrs No Action hydroxyzine pamoate [Vistaril] 25 mg capsule 25 mg PO Q6H PRN (Reason: anxiety) amlodipine 5 mg tablet 5 mg PO DAILY warfarin 4 mg tablet 4 mg PO DAILY cyclobenzaprine 10 mg tablet 20 mg PO BEDTIME temazepam 30 mg capsule 30 mg PO BEDTIME amitriptyline 10 mg tablet 20 mg PO QPM Patient Comments: DAILY AT 8 PM gabapentin 100 mg capsule 100 mg PO TID promethazine 25 mg tablet 25 mg PO Q6H PRN (Reason: nausea and vomiting) Qty: 30 11RF amoxicillin-pot clavulanate 875-125 mg tablet 1 tab PO Q12H Qty: 10 0RF Print Language: Colombian Instructions: Acute Bronchitis (ED), Chest Wall Pain (ED) Additional Instructions: Apply heating pad to affected area. Lidocaine patch as prescribed. Continue current medications. Follow-up with your physician in the next 2 or 3 days. Return for worsening symptoms. Referrals: Travis Deras MD [Primary Care Provider] - 1 week
[2024-06-17 12:03] VITALS: PULSE 90; O2SAT 99
[2024-06-17] MEDS: RACEPINEPHRINE HCL 11.25 MG, SODIUM CHLORIDE FOR INHALATION 3 ML IH (12:03)
[2024-06-17 12:04] VITALS: PULSE 90; O2SAT 98
[2024-06-17] MEDS: KETOROLAC TROMETHAMINE 30 MG/ML VIAL IM (13:13)
[2024-06-17] MEDS: ONDANSETRON 4 MG RAPDIS TABLET SL (13:13)
== END 2024-06-17 15:03 | disposition home or self-care (01) ==
PROVIDERS: Emergency Provider Emergency Medicine; PCP Family Medicine
DX: R07.89 Other chest pain (principal); J20.9 Acute bronchitis, unspecified; R06.02 Shortness of breath; Z90.710 Acquired absence of both cervix and uterus; Z90.49 Acquired absence of other specified parts of digestive tract; Z79.899 Other long term (current) drug therapy
CPT/HCPCS: 71046; 94640; 96372; 99284; J1885; Q0162

== ENCOUNTER 2024-06-18 10:52 | Outpatient (OUT) | payer MEDICARE, OTHER, SELFPAY ==
[2024-06-18 11:22] LABS: Basophils Percent Auto 0.1 % (0.2-2.0); Eosinophils Percent Auto 0.1 % (0.9-7.0); Hematocrit 35.2 % (36.0-48.0); Immature Granulocytes Abs Auto 0.04 10^3/uL (0.00-0.03); Immature Granulocytes Pct Auto 0.3 % (0.0-0.5); Lymphocytes Absolute Auto 0.7 10^3/uL (1.2-3.8); Mean Corpuscular HGB Conc 34.1 g/dL (29.9-35.2); Mean Corpuscular Hemoglobin 32.2 pg (26.7-34.0); Mean Corpuscular Volume 94.4 fL (81.0-99.0); Mean Platelet Volume 10.4 fL (9.5-13.5); Monocytes Absolute Auto 0.2 10^3/uL (0.3-0.8); Monocytes Percent Auto 1.6 % (1.7-12.0); Neutrophils Absolute Auto 11.2 10^3/uL (1.4-6.5); Neutrophils Percent Auto 91.9 % (43.0-75.0); Platelet Count 308 10^3/uL (150-450); Red Blood Count 3.73 10^6/uL (4.20-5.40); White Blood Count 12.2 10^3/uL (4.0-11.0)
[2024-06-18 11:44] LABS: Alanine Aminotransferase 30 U/L (14-59); Albumin Globulin Ratio 0.8; Albumin Level 3.2 g/dL (3.4-5.0); Alkaline Phosphatase 141 U/L (46-116); Anion Gap 16.3; Aspartate Amino Transferase 26 U/L (15-37); BUN Creatinine Ratio 24.2; Bilirubin Total 0.2 mg/dL (0.2-1.0); Calcium 8.7 mg/dL (8.5-10.1); Carbon Dioxide 20.8 mmol/L (21.0-32.0); Chloride 101 mmol/L (98-107); Estimated GFR (African America >60 (>=60 mL/min/1.73m^2); Estimated GFR (Non-African Ame 57 (>=60 mL/min/1.73m^2); Globulin 3.8 g/dL; Glucose 177 mg/dL (74-106); Potassium 4.1 mmol/L (3.5-5.1); Sodium 134 mmol/L (136-145); Troponin I High Sensitivity 4.2 pg/mL (4.0-51.3)
[2024-06-18 11:54] LABS: Lactate/Lactic Acid 2.5 mmol/L (0.4-2.0)
== END 2024-06-18 10:53 | disposition home or self-care (01) ==
LOC: LAB 10:54
PROVIDERS: PCP Family Medicine; Visit Provider Family Medicine
DX: D64.9 Anemia, unspecified (principal); R00.0 Tachycardia, unspecified; I10 Essential (primary) hypertension; R07.9 Chest pain, unspecified
CPT/HCPCS: 36415; 80053; 83605; 83880; 84484; 85025

== ENCOUNTER 2024-06-18 13:48 | Inpatient (IN) | payer MEDICARE, OTHER, SELFPAY ==
[2024-06-18] VITALS (9 sets, daily range): BP systolic 136–168; BP diastolic 75–85; PULSE 84–114; TEMP 36.9–37.2; O2SAT 92–100; BMI 22.7; BMI 22.1
[2024-06-18 15:09] LABS: Basophils Percent Auto 0.1 % (0.2-2.0); Eosinophils Percent Auto 0.2 % (0.9-7.0); Hematocrit 37.1 % (36.0-48.0); Hemoglobin 12.6 g/dL (12.0-16.0); Immature Granulocytes Abs Auto 0.06 10^3/uL (0.00-0.03); Immature Granulocytes Pct Auto 0.5 % (0.0-0.5); Lymphocytes Absolute Auto 0.9 10^3/uL (1.2-3.8); Lymphocytes Percent Auto 7.4 % (20.5-60.0); Mean Corpuscular Hemoglobin 31.9 pg (26.7-34.0); Mean Corpuscular Volume 93.9 fL (81.0-99.0); Mean Platelet Volume 10.5 fL (9.5-13.5); Monocytes Absolute Auto 0.1 10^3/uL (0.3-0.8); Monocytes Percent Auto 0.9 % (1.7-12.0); Neutrophils Absolute Auto 10.7 10^3/uL (1.4-6.5); Neutrophils Percent Auto 90.9 % (43.0-75.0); Platelet Count 336 10^3/uL (150-450); Red Blood Count 3.95 10^6/uL (4.20-5.40); Red Cell Distribution Width 13.8 % (11.0-15.0); White Blood Count 11.8 10^3/uL (4.0-11.0)
[2024-06-18] MEDS: HYDROMORPHONE HCL 0.5 MG/0.5 ML SYRINGE IVP (15:16)
[2024-06-18] MEDS: ONDANSETRON PF 4 MG/2 ML VIAL IV (15:17)
[2024-06-18 15:23] LABS: Influenza Virus A Antigen Negative; Influenza Virus B Antigen Negative; Internal Control Within Normal Limits; SARS-CoV-2 Ag NEGATIVE (NEGATIVE)
[2024-06-18 15:36] LABS: Alanine Aminotransferase 31 U/L (14-59); Albumin Globulin Ratio 0.8; Albumin Level 3.4 g/dL (3.4-5.0); Alkaline Phosphatase 151 U/L (46-116); Anion Gap 17.8; Aspartate Amino Transferase 26 U/L (15-37); BUN Creatinine Ratio 19.6; Bilirubin Total 0.3 mg/dL (0.2-1.0); Calcium 9.1 mg/dL (8.5-10.1); Chloride 101 mmol/L (98-107); Estimated GFR (African America 60 (>=60 mL/min/1.73m^2); Estimated GFR (Non-African Ame 49 (>=60 mL/min/1.73m^2); Globulin 4.2 g/dL; Glucose 169 mg/dL (74-106); Potassium 3.8 mmol/L (3.5-5.1); Sodium 136 mmol/L (136-145); Total Protein 7.6 g/dL (6.4-8.2)
[2024-06-18 15:38] LABS: Lactate/Lactic Acid 4.4 mmol/L (0.4-2.0)
[2024-06-18] MEDS: HYDROCODONE BIT/HOMATROP 5 MG/1.5 MG TABLET 1 TAB PO (15:41)
--- NOTE | 2024-06-18 15:55 | ED_ITS ---
HPI HPI - General Adult General Chief complaint: Shortness of Breath/Dyspnea Stated complaint: ABNORMAL LABS - SENT BY HOY Time Seen by Provider: 06/18/24 14:28 Source: patient Mode of arrival: walk-in Limitations: no limitations History of Present Illness HPI narrative: Patient presents to ED complaining of cough and shortness of breath. She was sent over by her physician after outpatient labs showed an elevated lactate at 2.5. She has been dealing with a cough and rib pain. She was on Augmentin outpatient but has not been getting any better. She also reports feeling dehydrated and weak and having a lot of pain with her coughing. She is that she is able to anything up with cough and. She is alert and oriented mildly hypertensive no hypoxia here. She is at 100% on room air. Answering questions appropriately. She is also in a boot from tripping and falling recently she broke her toe. Related Data Home Medications ?Medication ?Instructions ?Recorded ?Confirmed cyclobenzaprine 10 mg tablet 20 mg PO BEDTIME 12/14/22 11/23/23 temazepam 30 mg capsule 30 mg PO BEDTIME 12/14/22 11/23/23 hydroxyzine pamoate 25 mg capsule 25 mg PO Q6H PRN anxiety 01/17/23 11/23/23 (Vistaril) amlodipine 5 mg tablet 5 mg PO DAILY 06/01/23 11/23/23 warfarin 4 mg tablet 4 mg PO DAILY 06/01/23 11/23/23 amitriptyline 10 mg tablet 20 mg PO QPM 11/23/23 11/23/23 gabapentin 100 mg capsule 100 mg PO TID 11/23/23 11/23/23 Previous Rx's ?Medication ?Instructions ?Recorded amoxicillin 875 mg-potassium 1 tab PO Q12H #10 tabs 11/26/23 clavulanate 125 mg tablet promethazine 25 mg tablet 25 mg PO Q6H PRN nausea and 11/26/23 vomiting #30 tabs lidocaine 5 % topical patch 1 patch topical DAILY #10 ea 06/17/24 Allergies Allergy/AdvReac Type Severity Reaction Status Date / Time cefaclor (From Ceclor) Allergy Severe Hives Verified 06/18/24 14:11 prochlorperazine (From Allergy Intermediate Unknown Verified 06/18/24 14:11 Compazine) Iodinated Contrast Media AdvReac Severe Anaphylaxis Verified 06/18/24 14:11 ivp Allergy Severe Rash Uncoded 06/18/24 14:11 Opioid HPI Opioid Management Most Recent Opioid Data: Last Pain Scale 6 11/26/23 09:44 11/26/23 Last Pain Intensity 5 01/18/23 09:14 01/18/23 Last ORT Total Score 0 11/23/23 14:43 11/23/23 Last ORT Risk Category Low Risk 11/23/23 14:43 11/23/23 Urine Drug Screen Interp Final (.) 11/23/23 11:45 4 Ur Phencyclidine Scrn Negative (NEGATIVE) 11/23/23 11:45 10/26 Review of Systems ROS Status of ROS 10 or more systems reviewed and unremark able except as noted in history and below [facility] Medical History Acute hypokalemia ?E87.6 - Hypokalemia (ICD-10) Kidney calculi ?N20.0 - Calculus of kidney (ICD-10) Abdominal pain ?R10.9 - Unspecified abdominal pain (ICD-10) Acute dehydration ?E86.0 - Dehydration (ICD-10) Acute pancreatitis ?K85.90 - Acute pancreatitis without necrosis or infection, unspecified (ICD- 10) Gastritis ?K29.70 - Gastritis, unspecified, without bleeding (ICD-10) Intractable abdominal pain ?R10.9 - Unspecified abdominal pain (ICD-10) [place] filter in place ?Z95.828 - Presence of other vascular implants and grafts (ICD-10) Diverticulitis ?K57.92 - Diverticulitis of intestine, part unspecified, without perforation or abscess without bleeding (ICD-10) Gastroenteritis ?K52.9 - Noninfective gastroenteritis and colitis, unspecified (ICD-10) Stroke ?I63.9 - Cerebral infarction, unspecified (ICD-10) Migraine ?G43.909 - Migraine, unspecified, not intractable, without status migrainosus (ICD-10) Fibromyalgia syndrome ?M79.7 - Fibromyalgia (ICD-10) Thoracic outlet syndrome ?G54.0 - Brachial plexus disorders (ICD-10) Protein S deficiency ?D68.59 - Other primary thrombophilia (ICD-10) Surgical History H/O neck surgery ?Z98.890 - Other specified postprocedural states (ICD-10) H/O: hysterectomy ?Z90.710 - Acquired absence of both cervix and uterus (ICD-10) H/O knee surgery ?Z98.890 - Other specified postprocedural states (ICD-10) History of ankle surgery ?Z98.890 - Other specified postprocedural states (ICD-10) Hx of appendectomy ?Z90.49 - Acquired absence of other specified parts of digestive tract (ICD- 10) Family History Father Family history of cancer Mother Family history of cancer Sister Family history of cancer Brother Family history of diabetes mellitus Social History Within the past year, how often did you have a drink containing alcohol: never Within the past year, how many standard drinks containing alcohol did you have on a typical day: 1 or 2 Within the past year, how often did you have six or more drinks on one occasion: never Total score: 0 Score interpretation: A score less than 3 is consistent with normal alcohol consumption. Smoking status: Never smoker Non-prescribed substance use: denies use Previous occupational history: disabled Highest level of school completed/degree received: Associate degree: occupational, technical, vocational program Are you now , , , , never or living with a partner: In a typical week, how many times do you talk on the telephone with family, friends, or neighbors: twice per week How often do you get together with friends or relatives: once per week How often do you attend pentecostalism or jehovah's witness services: 4 or more times per year Do you belong to any clubs or organizations such as pentecostalism groups unions, fraternal or athletic groups, or school groups: no Total score: 2 Score interpretation: A score of greater than or equal to 2 indicates the lowest level of social isolation. Little interest or pleasure in doing things: not at all Feeling down, depressed, or hopeless: not at all Feel stressed/tense/nervous/anxious/difficulty sleeping: only a little Gender Identity: female Exam Narrative Exam Narrative: Time Seen: [] Vital Signs: [Per nurse's notes.] General: [Alert] Skin: [Warm, dry, no rash.] Head: [Normocephalic, atraumatic.] Neck: [Supple, trachea midline.] Eye: [Pupils are equal, round and reactive to light, extraocular movements are intact, normal conjunctiva.] Ears, nose, mouth and throat: oral mucosa moist. Cardiovascular: [Regular rate and rhythm, no murmur.] Respiratory: [Diminished breath sounds bilateral bases mild wheezing respirations are non-labored, breath sounds are equal.] Gastrointestinal: [Soft, nontender, non distended, normal bowel sounds.] MSK: 5 out of 5 muscle strength x 4 extremities no calf pain or edema Lymphatics: [No lymphadenopathy.] Psychiatric: [Cooperative, appropriate mood & affect.] Neurological: [Alert and oriented to person, place, time, and situation, no focal neurological deficit observed.] Constitutional Vital Signs, click to edit/add: Last Vital Signs Pulse 92 H 06/18/24 14:12 Resp 20 06/18/24 14:12 BP 164/78 H 06/18/24 14:12 Pulse Ox 100 06/18/24 14:12 O2 Del Method Room Air 06/18/24 14:12 Course Vital Signs Vital signs: Vital Signs Pulse Rate 92 H 06/18/24 14:12 Respiratory Rate 20 06/18/24 14:12 Blood Pressure 164/78 H 06/18/24 14:12 Pulse Oximetry 100 06/18/24 14:12 Oxygen Delivery Method Room Air 06/18/24 14:12 Pulse Rate 92 H 06/18/24 14:12 Respiratory Rate 20 06/18/24 14:12 Blood Pressure 164/78 H 06/18/24 14:12 Pulse Oximetry 100 06/18/24 14:12 Oxygen Delivery Method Room Air 06/18/24 14:12 Medical Decision Making [facility] Narrative Medical decision making narrative: Patient's lactate has now increased to 4.5. Patient was given IV fluids and IV antibiotics. Chest x-ray does not show pneumonia but her symptoms fit pneumonia and her lactate is elevated. Patient was given pain and nausea medication at her request. I spoke to Dr. Deras who will admit the patient for further care. Patient is comfortable with care plan for admission. Differential Diagnosis Differential Diagnosis: Pneumonia, sepsis, elevated lactate Medical Records Medical records reviewed: Yes I reviewed the patient's medical records Lab Data Lab results reviewed: Yes I reviewed the patient's lab results Labs: Lab Results 06/18/24 06/18/24 Range/Units 14:55 15:00 WBC 11.8 H (4.0-11.0) 10^3/uL RBC 3.95 L (4.20-5.40) 10^6/uL Hgb 12.6 (12.0-16.0) g/dL Hct 37.1 (36.0-48.0) % MCV 93.9 (81.0-99.0) fL MCH 31.9 (26.7-34.0) pg MCHC 34.0 (29.9-35.2) g/dL RDW 13.8 (11.0-15.0) % Plt Count 336 (150-450) 10^3/uL MPV 10.5 (9.5-13.5) fL Neut % (Auto) 90.9 H (43.0-75.0) % Lymph % (Auto) 7.4 L (20.5-60.0) % Sandoval % (Auto) 0.9 L (1.7-12.0) % Eos % (Auto) 0.2 L (0.9-7.0) % Baso % (Auto) 0.1 L (0.2-2.0) % Neut # (Auto) 10.7 H (1.4-6.5) 10^3/uL Lymph # (Auto) 0.9 L (1.2-3.8) 10^3/uL Sandoval # (Auto) 0.1 L (0.3-0.8) 10^3/uL Eos # (Auto) 0.0 (0.0-0.7) 10^3/uL Baso # (Auto) 0.0 (0.0-0.1) 10^3/uL Abs Immat Gran (auto) 0.06 H (0.00-0.03) 10^3/uL Imm/Tot Granulo (auto) 0.5 (0.0-0.5) % Sodium 136 (136-145) mmol/L Potassium 3.8 (3.5-5.1) mmol/L Chloride 101 (98-107) mmol/L Carbon Dioxide 21.0 (21.0-32.0) mmol/L Anion Gap 17.8 BUN 22.0 H (7.0-18.0) mg/dL Creatinine 1.12 H (0.55-1.02) mg/dL Est GFR ( Amer) 60 (>=60 mL/min/1.73m^2) Est GFR (Non-Af Amer) 49 L (>=60 mL/min/1.73m^2) BUN/Creatinine Ratio 19.6 Glucose 169 H (74-106) mg/dL Lactate 4.4 H* (0.4-2.0) mmol/L Calcium 9.1 (8.5-10.1) mg/dL Total Bilirubin 0.3 (0.2-1.0) mg/dL AST 26 (15-37) U/L ALT 31 (14-59) U/L Alkaline Phosphatase 151 H (46-116) U/L Total Protein 7.6 (6.4-8.2) g/dL Albumin 3.4 (3.4-5.0) g/dL Globulin 4.2 g/dL Albumin/Globulin Ratio 0.8 Influenza Type A Ag Negative Influenza Type B Ag Negative SARS-CoV-2 Ag (CV2AG) Negative (NEGATIVE) Imaging Data Chest x-ray: Attestation: I have reviewed the pertinent imaging results. Discharge Plan Discharge Chief Complaint: Shortness of Breath/Dyspnea Clinical Impression: Pneumonia, Elevated serum lactate dehydrogenase (LDH) Patient Disposition: Admitted As Inpatient Time of Disposition Decision: 15:54 Condition: Fair
[2024-06-18] MEDS: 0.9 % SODIUM CHLORIDE 1,000 ML 1000 ML IV (16:02)
[2024-06-18] MEDS: LEVOFLOXACIN IN DEXTROSE 5 % 750 MG/150 ML PREMIX 100 MG IV (16:03)
--- NOTE | 2024-06-18 17:48 | P.HP_ITS ---
HPI H&P: HPI History of Present Illness Chief complaint: Pneumonia elevated lactate Narrative: Patient was seen and evaluated in the office yesterday, increasing cough and wheezing after being seen in the emergency room and placed on doxycycline. Significant wheeze and shortness of breath in the office so referred to ER, given aerosol treatments was better and sent home, chest x-ray clear, obtained labs this morning and had a positive lactate and leukocytosis, checked in with patient and she was feeling worse or referred back to the ER, in ER workup found to have a further newly elevated lactic level, leukocytosis, dyspnea, tachycardia and patient is admitted for workup and treatment of same When I saw patient up on the medical surgical floor, resting very uncomfortably in bed, a labored breathing and moderate conversational dyspnea Opioid HPI Opioid Management Most Recent Pain and Opioid Data: Last Pain Scale 10 06/18/24 17:22 06/18/24 Last Pain Intensity 5 01/18/23 09:14 01/18/23 Last Pain Assessment 06/18/24 17:22 Last ORT Total Score 0 11/23/23 14:43 11/23/23 Last ORT Risk Category Low Risk 11/23/23 14:43 11/23/23 Urine Drug Screen Interp Final (.) 11/23/23 11:45 4 Ur Phencyclidine Scrn Negative (NEGATIVE) 11/23/23 11:45 10/26 Review of Systems ROS Status of ROS 10 or more systems reviewed and unremark able except as noted in history and [facility] History (Updated 06/18/24 @ 17:52 by Travis Deras MD) Acute hypokalemia ?E87.6 - Hypokalemia (ICD-10) Kidney calculi ?N20.0 - Calculus of kidney (ICD-10) Abdominal pain ?R10.9 - Unspecified abdominal pain (ICD-10) Acute dehydration ?E86.0 - Dehydration (ICD-10) Acute pancreatitis ?K85.90 - Acute pancreatitis without necrosis or infection, unspecified (ICD- 10) Gastritis ?K29.70 - Gastritis, unspecified, without bleeding (ICD-10) Intractable abdominal pain ?R10.9 - Unspecified abdominal pain (ICD-10) [place] filter in place ?Z95.828 - Presence of other vascular implants and grafts (ICD-10) Diverticulitis ?K57.92 - Diverticulitis of intestine, part unspecified, without perforation or abscess without bleeding (ICD-10) Gastroenteritis ?K52.9 - Noninfective gastroenteritis and colitis, unspecified (ICD-10) Stroke ?I63.9 - Cerebral infarction, unspecified (ICD-10) Migraine ?G43.909 - Migraine, unspecified, not intractable, without status migrainosus (ICD-10) Fibromyalgia syndrome ?M79.7 - Fibromyalgia (ICD-10) Thoracic outlet syndrome ?G54.0 - Brachial plexus disorders (ICD-10) Protein S deficiency ?D68.59 - Other primary thrombophilia (ICD-10) Surgical History H/O neck surgery ?Z98.890 - Other specified postprocedural states (ICD-10) H/O: hysterectomy ?Z90.710 - Acquired absence of both cervix and uterus (ICD-10) H/O knee surgery ?Z98.890 - Other specified postprocedural states (ICD-10) History of ankle surgery ?Z98.890 - Other specified postprocedural states (ICD-10) Hx of appendectomy ?Z90.49 - Acquired absence of other specified parts of digestive tract (ICD- 10) Family History Father Family history of cancer Mother Family history of cancer Sister Family history of cancer Brother Family history of diabetes mellitus Social History Within the past year, how often did you have a drink containing alcohol: never Within the past year, how many standard drinks containing alcohol did you have on a typical day: 1 or 2 Within the past year, how often did you have six or more drinks on one occasion: never Total score: 0 Score interpretation: A score less than 3 is consistent with normal alcohol consumption. Smoking status: Never smoker Non-prescribed substance use: denies use Previous occupational history: disabled Highest level of school completed/degree received: Associate degree: occupational, technical, vocational program Are you now , , , , never or living with a partner: In a typical week, how many times do you talk on the telephone with family, fri ends, or neighbors: twice per week How often do you get together with friends or relatives: once per week How often do you attend faith or confucianism services: 4 or more times per year Do you belong to any clubs or organizations such as faith groups unions, fraternal or athletic groups, or school groups: no Total score: 2 Score interpretation: A score of greater than or equal to 2 indicates the lowest level of social isolation. Little interest or pleasure in doing things: not at all Feeling down, depressed, or hopeless: not at all Feel stressed/tense/nervous/anxious/difficulty sleeping: only a little Gender Identity: female Meds Home Medications and Allergies Home Medications ?Medication ?Instructions ?Recorded ?Confirmed ?Type cyclobenzaprine 10 mg tablet 20 mg PO BEDTIME 12/14/22 06/18/24 History temazepam 30 mg capsule 30 mg PO BEDTIME 12/14/22 06/18/24 History hydroxyzine pamoate 25 mg capsule 25 mg PO Q6H PRN anxiety 01/17/23 06/18/24 History (Vistaril) amlodipine 5 mg tablet 5 mg PO DAILY 06/01/23 06/18/24 History amitriptyline 10 mg tablet 10 mg PO QPM 11/23/23 06/18/24 History promethazine 25 mg tablet 25 mg PO Q6H PRN nausea and 11/26/23 06/18/24 Rx vomiting #30 tabs albuterol sulfate 90 mcg/actuation 2 puff inhalation Q4H PRN 06/18/24 06/18/24 History aerosol inhaler shortness of breath or wheezing benzonatate 100 mg capsule 100 mg PO Q8H PRN cough 06/18/24 06/18/24 History celecoxib 200 mg capsule 200 mg PO BID 06/18/24 06/18/24 History doxycycline monohydrate 100 mg 100 mg PO BID 06/18/24 06/18/24 History capsule gabapentin 300 mg capsule 300 mg PO QPM 06/18/24 06/18/24 History levofloxacin 750 mg tablet 750 mg PO DAILY 06/18/24 06/18/24 History prednisone 20 mg tablet 60 mg PO DAILY 06/18/24 06/18/24 History warfarin 5 mg tablet (Jantoven) 10 mg PO DAILY 06/18/24 06/18/24 History Allergies Allergy/AdvReac Type Severity Reaction Status Date / Time cefaclor (From Ceclor) Allergy Severe Hives Verified 06/18/24 14:11 prochlorperazine (From Allergy Intermediate Unknown Verified 06/18/24 14:11 Compazine) Iodinated Contrast Media AdvReac Severe Anaphylaxis Verified 06/18/24 14:11 ivp Allergy Severe Rash Uncoded 06/18/24 14:11 Exam Constitutional Vital Signs, click to edit/add: Last Vital Signs Temp 98.9 F 06/18/24 17:22 Pulse 84 06/18/24 17:22 Resp 18 06/18/24 17:22 BP 168/82 H 06/18/24 17:22 Pulse Ox 95 06/18/24 17:22 O2 Del Method Room Air 06/18/24 17:22 Documenting provider has reviewed patient's vital signs: yes Common normals: apparent distress (Moderate conversational dyspnea) Chest Common normals: inspection of chest normal; palpation of chest abnormal (Positive chest wall tenderness) Respiratory Common normals: abnormal respiratory effort (Moderate conversational dyspnea) and not clear to ascultation bilaterally Auscultation: rhonchi and wheezes Cardio Common normals: regular rhythm; irregular rate Rate: tachycardic GI Common normals: Normal to inspection, nondistended, normoactive bowel sounds present, soft to palpation and non-tender Results Labs Labs: Short CBC 06/18/24 Range/Units 15:00 WBC 11.8 H (4.0-11.0) 10^3/uL Hgb 12.6 (12.0-16.0) g/dL Hct 37.1 (36.0-48.0) % Plt Count 336 (150-450) 10^3/uL BMP 06/18/24 15:00 Sodium 136 Potassium 3.8 Chloride 101 Carbon Dioxide 21.0 BUN 22.0 H Creatinine 1.12 H Glucose 169 H Calcium 9.1 Liver Function 06/18/24 Range/Units 15:00 Total Bilirubin 0.3 (0.2-1.0) mg/dL AST 26 (15-37) U/L ALT 31 (14-59) U/L Alkaline Phosphatase 151 H (46-116) U/L Albumin 3.4 (3.4-5.0) g/dL Assessment and Plan Assessment and Plan (1) Chest wall pain: (2) Acute bronchitis: Qualifiers: Bronchitis organism: unspecified organism Qualified Code(s): J20.9 - Acute bronchitis, unspecified (3) Acute dehydration: (4) Protein S deficiency: Plan Admission findings: Sinus tachycardia, respiratory distress, significant elevated blood pressure, leukocytosis and lactic acidosis due to acute bronchitis resulting in severe sepsis with failed outpatient treatment Acute bronchitis leading to severe sepsis with acute exacerbation of asthma- given IV fluids in ER, will continue maintenance fluids overnight, IV antibiotics, patient has a allergy to cefdinir so with canceled the Rocephin and go with Zosyn and levofloxacin to double cover due to the sepsis and failed outpatient treatment, steroids and frequent aerosol treatments, try to obtain sputum culture Hypertension-elevated currently will do as needed hydralazine, may need further treatment but suspect fixing the above should help Chest wall pain - high-sensitivity troponin is negative, pain is reproducible-patient has a allergy to morphine and Dilaudid due to elevated liver function test, low-dose Demerol eating continue with her Celebrex despite being on Coumadin Protein S deficiency-maintain Coumadin, check INR Acute kidney injury stage II-IV fluids as outlined above-baseline creatinine earlier this year was 0.66, admission creatinine 1.12 which is 169.7% above baseline, with decreased urine output in the last 12 hours resulting in acute kidney injury stage II Insomnia-continue with home medications Generalized anxiety disorder-continue with home medications Low back pain-continue with home medications Admission findings, failed outpatient treatment, seen in the office once in ER x 2, ER evaluation shows severe sepsis without shock, medically necessary treatment will span 2 midnights. Inpatient status
[2024-06-18 18:14] LABS: PCO2 VBG 33.6 mmHg (40.0-52.0); pH VBG 7.458 (7.330-7.430)
[2024-06-18] MEDS: HYDROXYZINE PAMOATE 25 MG CAPSULE PO (18:14)
[2024-06-18] MEDS: MEPERIDINE HCL/PF 25 MG/ML VIAL 12.5 MG IVP (18:14)
[2024-06-18] MEDS: 0.9 % SODIUM CHLORIDE 1,000 ML 125 ML IV (18:15)
[2024-06-18 18:16] LABS: INR 1.02; Prothrombin Time 10.8 sec (9.0-11.6)
[2024-06-18] MEDS: WARFARIN SODIUM 5 MG TABLET 10 MG PO (18:24)
[2024-06-18 18:36] LABS: Lactate/Lactic Acid 2.6 mmol/L (0.4-2.0)
[2024-06-18 18:39] LABS: Magnesium 1.5 mg/dL (1.8-2.4)
[2024-06-18] MEDS: IPRATROPIUM/ALBUTEROL SULFATE 3 ML AMPUL.NEB IH ×2 (19:40→23:29)
[2024-06-18] MEDS: BENZONATATE 100 MG CAPSULE 200 MG PO (20:00)
[2024-06-18] MEDS: GABAPENTIN 300 MG CAPSULE PO (20:01)
[2024-06-18] MEDS: PIPERACILLIN SODIUM/TAZOBACTAM 3.375 GM in 0.9 % SODIUM CHLORIDE 50 ML IV (20:01)
[2024-06-18] MEDS: METHYLPREDNISOLONE SOD SUCC PF 125 MG/2 ML VIAL IVP (20:01)
[2024-06-18] MEDS: AMITRIPTYLINE HCL 10 MG TABLET PO (20:01)
[2024-06-18] MEDS: CYCLOBENZAPRINE HCL 10 MG TABLET 20 MG PO (21:34)
[2024-06-18] MEDS: CELECOXIB 200 MG CAPSULE PO (21:34)
[2024-06-18] MEDS: VALACYCLOVIR HCL 500 MG TABLET 1000 MG PO (21:34)
[2024-06-18] MEDS: TEMAZEPAM 15 MG CAPSULE 30 MG PO (21:35)
[2024-06-18] MEDS: LIDOCAINE VISCOUS 2% 15 ML SOLUTION PO (23:03)
[2024-06-18] MEDS: GUAIFENESIN 200 MG/DEXTROMETHORPHAN 20 MG 10 ML UNIT DOSE CUP PO (23:03)
[2024-06-18] MEDS: BUDESONIDE 0.5 MG/2 ML AMPULE NEB IH (23:29)
[2024-06-19] VITALS (19 sets, daily range): BP systolic 131–169; BP diastolic 64–86; PULSE 92–110; TEMP 36.6–36.9; O2SAT 87–100
[2024-06-19] MEDS: 0.9 % SODIUM CHLORIDE 1,000 ML 125 ML IV (02:42)
[2024-06-19] MEDS: METHYLPREDNISOLONE SOD SUCC PF 125 MG/2 ML VIAL IVP ×4 (02:42→20:04)
[2024-06-19] MEDS: HYDROXYZINE PAMOATE 25 MG CAPSULE PO ×3 (02:43→21:26)
[2024-06-19] MEDS: IPRATROPIUM/ALBUTEROL SULFATE 3 ML AMPUL.NEB IH ×2 (03:48→07:01)
[2024-06-19] MEDS: BENZONATATE 100 MG CAPSULE 200 MG PO ×3 (04:05→20:04)
[2024-06-19] MEDS: PIPERACILLIN SODIUM/TAZOBACTAM 3.375 GM in 0.9 % SODIUM CHLORIDE 50 ML IV ×3 (04:07→20:04)
[2024-06-19] MEDS: ONDANSETRON PF 4 MG/2 ML VIAL IV ×6 (06:03→22:28)
[2024-06-19] MEDS: MEPERIDINE HCL/PF 25 MG/ML VIAL 12.5 MG IVP ×6 (06:03→22:27)
[2024-06-19] MEDS: GUAIFENESIN 200 MG/DEXTROMETHORPHAN 20 MG 10 ML UNIT DOSE CUP PO ×4 (06:15→20:05)
[2024-06-19 06:21] LABS: Basophils Percent Auto 0.1 % (0.2-2.0); Hematocrit 32.9 % (36.0-48.0); Hemoglobin 11.1 g/dL (12.0-16.0); Immature Granulocytes Abs Auto 0.06 10^3/uL (0.00-0.03); Immature Granulocytes Pct Auto 0.6 % (0.0-0.5); Lymphocytes Absolute Auto 0.6 10^3/uL (1.2-3.8); Lymphocytes Percent Auto 6.5 % (20.5-60.0); Mean Corpuscular HGB Conc 33.7 g/dL (29.9-35.2); Mean Corpuscular Hemoglobin 32.3 pg (26.7-34.0); Mean Corpuscular Volume 95.6 fL (81.0-99.0); Mean Platelet Volume 10.5 fL (9.5-13.5); Monocytes Absolute Auto 0.1 10^3/uL (0.3-0.8); Monocytes Percent Auto 1.4 % (1.7-12.0); Neutrophils Percent Auto 91.4 % (43.0-75.0); Platelet Count 279 10^3/uL (150-450); Red Blood Count 3.44 10^6/uL (4.20-5.40); Red Cell Distribution Width 14.1 % (11.0-15.0); White Blood Count 9.9 10^3/uL (4.0-11.0)
[2024-06-19 06:24] LABS: Anion Gap 15.5; BUN Creatinine Ratio 11.9; Carbon Dioxide 22.8 mmol/L (21.0-32.0); Chloride 106 mmol/L (98-107); Estimated GFR (African America >60 (>=60 mL/min/1.73m^2); Estimated GFR (Non-African Ame 51 (>=60 mL/min/1.73m^2); Glucose 184 mg/dL (74-106); Potassium 3.3 mmol/L (3.5-5.1); Sodium 141 mmol/L (136-145)
[2024-06-19 06:30] LABS: Calcium 7.9 mg/dL (8.5-10.1)
--- NOTE | 2024-06-19 08:07 | P.PN_ITS ---
Progress Note: Subjective Subjective Interval history: Patient does feel somewhat better today but still significant dyspnea with any activity and significant cough throughout the evaluation Exam Constitutional Vital Signs, click to edit/add: Last Vital Signs Temp 98.5 F 06/19/24 08:04 Pulse 107 H 06/19/24 08:04 Resp 20 06/19/24 08:04 BP 136/81 06/19/24 08:04 Pulse Ox 100 06/19/24 08:04 O2 Del Method Room Air 06/19/24 08:04 O2 Flow Rate 2 06/19/24 03:48 Documenting provider has reviewed patient's vital signs: yes Common normals: apparent distress (Mild to moderate conversational dyspnea) Chest Common normals: inspection of chest normal; palpation of chest abnormal (Positive chest wall tenderness) Respiratory Common normals: abnormal respiratory effort (Mild to moderate conversational dyspnea) and not clear to ascultation bilaterally Auscultation: rhonchi and wheezes (Still pretty tight) Cardio Common normals: regular rhythm; irregular rate Rate: tachycardic (Heart rate more elevated today) GI Common normals: Normal to inspection, nondistended, normoactive bowel sounds present, soft to palpation and non-tender Progress Note: Objective Labs Labs: Short CBC 06/18/24 06/19/24 Range/Units 15:00 05:53 WBC 11.8 H 9.9 (4.0-11.0) 10^3/uL Hgb 12.6 11.1 L (12.0-16.0) g/dL Hct 37.1 32.9 L (36.0-48.0) % Plt Count 336 279 (150-450) 10^3/uL BMP 06/18/24 06/19/24 15:00 05:53 Sodium 136 141 Potassium 3.8 3.3 L Chloride 101 106 Carbon Dioxide 21.0 22.8 BUN 22.0 H 13.0 Creatinine 1.12 H 1.09 H Glucose 169 H 184 H Calcium 9.1 7.9 L Liver Function 06/18/24 Range/Units 15:00 Total Bilirubin 0.3 (0.2-1.0) mg/dL AST 26 (15-37) U/L ALT 31 (14-59) U/L Alkaline Phosphatase 151 H (46-116) U/L Albumin 3.4 (3.4-5.0) g/dL Progress Note: A&P Assessment and Plan (1) Chest wall pain: (2) Acute bronchitis: Qualifiers: Bronchitis organism: unspecified organism Qualified Code(s): J20.9 - Acute bronchitis, unspecified (3) Acute dehydration: (4) Protein S deficiency: Plan Admission findings: Sinus tachycardia, respiratory distress, significant elevated blood pressure, leukocytosis and lactic acidosis due to acute bronchitis resulting in severe sepsis with failed outpatient treatment Acute bronchitis leading to severe sepsis with acute exacerbation of asthma-LOC today, good urinary output, continue with aerosol treatments but changed to Xopenex secondary to tachycardia Cold sore-started oral agents yesterday, will start topical treatment today Hypertension-improved Chest wall pain -persisting but improved Protein S deficiency-maintain Coumadin, check INR Acute kidney injury stage II-IV fluids as outlined above-baseline creatinine earlier this year was 0.66, admission creatinine 1.12 which is 169.7% above baseline-slightly proved today Insomnia-continue with home medications Hypokalemia-supplement Hyperglycemia-secondary to steroids, will continue to monitor Generalized anxiety disorder-continue with home medications Low back pain-continue with home medications Admission findings, failed outpatient treatment, seen in the office once in ER x 2, ER evaluation shows severe sepsis without shock, medically necessary treatment will span 2 midnights. Inpatient status ?
[2024-06-19] MEDS: CELECOXIB 200 MG CAPSULE PO ×2 (08:32→20:05)
[2024-06-19] MEDS: VALACYCLOVIR HCL 500 MG TABLET 1000 MG PO ×2 (08:33→20:05)
--- NOTE | 2024-06-19 08:34 | CM.NOTE ---
Important Message From Medicare discussed with pt, pt verbalizes understanding and signs paper. Original given to pt and copy placed in pt's chart.
[2024-06-19] MEDS: AMLODIPINE BESYLATE 5 MG TABLET PO (08:37)
[2024-06-19] MEDS: POTASSIUM CHLORIDE 10 MEQ ER TABLET PO ×2 (08:37→20:05)
--- NOTE | 2024-06-19 10:01 | SWNOTE1 ---
SW had order that pt needs SNF and wants SW to look in to [facility]. SW did speak with therapy and OT recommended SNF. ROGELIO has sent email to Laura and Mary at [facility] to see if they have an opening.
--- NOTE | 2024-06-19 10:05 | SWNOTE1 ---
SW heard back from [facility] and they do have a bed open. SW to send referral. Referral sent to [facility]. Referral included face sheet, ED note, H&P, provider notes, case management report,nursing notes, diagnostic imaging, med list, and OT notes.
--- NOTE | 2024-06-19 10:53 | SWNOTE1 ---
[facility] is able to accept when pt is medically stable.
[2024-06-19] MEDS: IPRATROPIUM BROMIDE 0.5 MG/2.5 ML VIAL.NEB IH ×4 (11:14→23:30)
[2024-06-19] MEDS: BUDESONIDE 0.5 MG/2 ML AMPULE NEB IH ×2 (11:14→23:30)
[2024-06-19] MEDS: LEVALBUTEROL HCL 0.63 MG/3 ML VIAL.NEB IH ×4 (11:14→23:31)
[2024-06-19] MEDS: LIDOCAINE VISCOUS 2% 15 ML SOLUTION PO ×2 (14:13→18:35)
[2024-06-19] MEDS: LEVOFLOXACIN IN DEXTROSE 5 % 750 MG/150 ML PREMIX 100 MG IV (17:00)
[2024-06-19] MEDS: WARFARIN SODIUM 5 MG TABLET 10 MG PO (17:05)
[2024-06-19] MEDS: AMITRIPTYLINE HCL 10 MG TABLET PO (20:04)
[2024-06-19] MEDS: GABAPENTIN 300 MG CAPSULE PO (20:04)
[2024-06-19] MEDS: CYCLOBENZAPRINE HCL 10 MG TABLET 20 MG PO (20:06)
[2024-06-19] MEDS: TEMAZEPAM 15 MG CAPSULE 30 MG PO (21:26)
[2024-06-20] VITALS (21 sets, daily range): BP systolic 123–157; BP diastolic 68–89; PULSE 82–110; TEMP 35–37.1; O2SAT 84–100
[2024-06-20] MEDS: METHYLPREDNISOLONE SOD SUCC PF 125 MG/2 ML VIAL IVP ×4 (03:29→19:35)
[2024-06-20] MEDS: GUAIFENESIN 200 MG/DEXTROMETHORPHAN 20 MG 10 ML UNIT DOSE CUP PO ×4 (03:30→21:12)
[2024-06-20] MEDS: BENZONATATE 100 MG CAPSULE 200 MG PO ×3 (03:30→19:35)
[2024-06-20] MEDS: ONDANSETRON PF 4 MG/2 ML VIAL IV ×6 (03:30→23:42)
[2024-06-20] MEDS: PIPERACILLIN SODIUM/TAZOBACTAM 3.375 GM in 0.9 % SODIUM CHLORIDE 50 ML IV ×3 (03:30→19:36)
[2024-06-20] MEDS: MEPERIDINE HCL/PF 25 MG/ML VIAL 12.5 MG IVP ×6 (03:30→23:42)
[2024-06-20] MEDS: LIDOCAINE VISCOUS 2% 15 ML SOLUTION PO ×3 (03:49→18:41)
[2024-06-20] MEDS: HYDROXYZINE PAMOATE 25 MG CAPSULE PO ×3 (03:49→21:12)
[2024-06-20] MEDS: IPRATROPIUM BROMIDE 0.5 MG/2.5 ML VIAL.NEB IH ×6 (03:53→23:37)
[2024-06-20] MEDS: LEVALBUTEROL HCL 0.63 MG/3 ML VIAL.NEB IH ×6 (03:54→23:37)
[2024-06-20 06:14] LABS: Basophils Percent Auto 0.1 % (0.2-2.0); Hematocrit 31.2 % (36.0-48.0); Hemoglobin 10.4 g/dL (12.0-16.0); Immature Granulocytes Abs Auto 0.14 10^3/uL (0.00-0.03); Immature Granulocytes Pct Auto 0.7 % (0.0-0.5); Lymphocytes Absolute Auto 0.8 10^3/uL (1.2-3.8); Lymphocytes Percent Auto 3.9 % (20.5-60.0); Mean Corpuscular HGB Conc 33.3 g/dL (29.9-35.2); Mean Corpuscular Hemoglobin 31.4 pg (26.7-34.0); Mean Corpuscular Volume 94.3 fL (81.0-99.0); Mean Platelet Volume 10.5 fL (9.5-13.5); Monocytes Absolute Auto 0.5 10^3/uL (0.3-0.8); Monocytes Percent Auto 2.4 % (1.7-12.0); Neutrophils Absolute Auto 19.9 10^3/uL (1.4-6.5); Neutrophils Percent Auto 92.9 % (43.0-75.0); Platelet Count 258 10^3/uL (150-450); Red Blood Count 3.31 10^6/uL (4.20-5.40); Red Cell Distribution Width 14.4 % (11.0-15.0); White Blood Count 21.4 10^3/uL (4.0-11.0)
[2024-06-20 06:26] LABS: BUN Creatinine Ratio 14.7; Carbon Dioxide 26.5 mmol/L (21.0-32.0); Chloride 107 mmol/L (98-107); Estimated GFR (African America >60 (>=60 mL/min/1.73m^2); Estimated GFR (Non-African Ame 60 (>=60 mL/min/1.73m^2); Glucose 178 mg/dL (74-106); Potassium 3.5 mmol/L (3.5-5.1); Sodium 144 mmol/L (136-145)
--- NOTE | 2024-06-20 07:54 | P.PN_ITS ---
Progress Note: Subjective Subjective Interval history: Still with persistent cough and shortness of breath Exam Constitutional Vital Signs, click to edit/add: Last Vital Signs Temp 98.1 F 06/20/24 07:36 Pulse 103 H 06/20/24 07:36 Resp 22 H 06/20/24 07:36 BP 157/89 H 06/20/24 07:36 Pulse Ox 99 06/20/24 07:41 O2 Del Method Room Air 06/20/24 07:41 O2 Flow Rate 2 06/19/24 23:30 Documenting provider has reviewed patient's vital signs: yes Common normals: apparent distress (Mild to moderate conversational dyspnea- unchanged) Chest Common normals: inspection of chest normal; palpation of chest abnormal (Positive chest wall tenderness) Respiratory Common normals: abnormal respiratory effort (Mild to moderate conversational dyspnea-unchanged) and not clear to ascultation bilaterally Auscultation: rhonchi and wheezes (Unchanged from previous day) Cardio Common normals: regular rhythm; irregular rate Rate: tachycardic (Heart rate more elevated today) GI Common normals: Normal to inspection, nondistended, normoactive bowel sounds present, soft to palpation and non-tender Progress Note: Objective Labs Labs: Short CBC 06/20/24 Range/Units 06:02 WBC 21.4 H (4.0-11.0) 10^3/uL Hgb 10.4 L (12.0-16.0) g/dL Hct 31.2 L (36.0-48.0) % Plt Count 258 (150-450) 10^3/uL BMP 06/20/24 06:02 Sodium 144 Potassium 3.5 Chloride 107 Carbon Dioxide 26.5 BUN 14.0 Creatinine 0.95 Glucose 178 H Calcium 8.0 L Progress Note: A&P Assessment and Plan (1) Chest wall pain: (2) Acute bronchitis: Qualifiers: Bronchitis organism: unspecified organism Qualified Code(s): J20.9 - Acute bronchitis, unspecified (3) Acute dehydration: (4) Protein S deficiency: Plan Admission findings: Sinus tachycardia, respiratory distress, significant elevated blood pressure, leukocytosis and lactic acidosis due to acute bronchitis resulting in severe sepsis with failed outpatient treatment Acute bronchitis leading to severe sepsis with acute exacerbation of asthma- still with significant dyspnea, has not received as needed Xopenex treatments, will encourage that to try to break the wheezing cycle, add 1 dose of magnesium IV today Cold sore-started oral agents yesterday, will start topical treatment today Hypertension-improved Chest wall pain -improving Protein S deficiency-maintain Coumadin, check INR Acute kidney injury stage II-IV fluids as outlined above-baseline creatinine earlier this year was 0.66, admission creatinine 1.12 which is 169.7% above baseline-slightly proved today Insomnia-continue with home medications Hypokalemia-supplement Hyperglycemia-secondary to steroids, will continue to monitor Generalized anxiety disorder-continue with home medications Low back pain-continue with home medications, cleared for rehab possibly tomorrow Admission findings, failed outpatient treatment, seen in the office once in ER x 2, ER evaluation shows severe sepsis without shock, medically necessary treatment will span 2 midnights. Inpatient status ?
[2024-06-20] MEDS: VALACYCLOVIR HCL 500 MG TABLET 1000 MG PO ×2 (08:03→21:12)
[2024-06-20] MEDS: MONTELUKAST SODIUM 10 MG TABLET PO (08:03)
[2024-06-20] MEDS: CETIRIZINE HCL 10 MG TABLET PO (08:03)
[2024-06-20] MEDS: POTASSIUM CHLORIDE 10 MEQ ER TABLET PO ×2 (08:03→21:12)
[2024-06-20] MEDS: GUAIFENESIN 600 MG TAB.ER.12H PO ×2 (08:03→21:12)
[2024-06-20] MEDS: CELECOXIB 200 MG CAPSULE PO ×2 (08:04→21:12)
[2024-06-20] MEDS: AMLODIPINE BESYLATE 5 MG TABLET PO (08:04)
[2024-06-20] MEDS: MAGNESIUM SULFATE IN WATER 2 GM/50 ML PREMIX IV (08:12)
--- NOTE | 2024-06-20 08:49 | SWNOTE1 ---
SW completed HENS online, likely discharge over the weekend to [facility].
[2024-06-20 09:06] LABS: INR 2.99; Prothrombin Time 28.4 sec (9.0-11.6)
--- NOTE | 2024-06-20 09:15 | SWNOTE1 ---
SW spoke to pt about possibility of discharge over the weekend and [facility] not being able to assist with transport on the weekend. Pt voiced if she does discharge tomorrow, her sister can transport. If she does not discharge until Sunday, she will have to call her friend and see if she can transport. SW let her know the only other option we have would be ambulance transport and pt would likely get a bill. Pt voiced understanding and will call her friend.
[2024-06-20] MEDS: AZITHROMYCIN 500 MG in 0.9 % SODIUM CHLORIDE 250 ML 250 MG IV (09:25)
--- NOTE | 2024-06-20 10:20 | PC.NURSE ---
[id number] see midline insertion for documentation
[2024-06-20] MEDS: BUDESONIDE 0.5 MG/2 ML AMPULE NEB IH ×2 (10:53→23:37)
--- NOTE | 2024-06-20 11:00 | PT.DAILY ---
Physical Therapy Daily Note PT Daily Note/Assess Start: 06/19/24 10:59 Freq: Status: Active Protocol: Document 06/20/24 10:10 QUITA (Rec: 06/20/24 11:00 QUITA [id number]) Physical Therapy Daily Note/Assessment Time In/Time Out Time In 10:10 Time Out 10:28 Subjective Subjective Patient reports 9/10 pain today but is feeling better than yesterday with less pain in the chest. Therapeutic Exercise Time Therapeutic Exercise 8 Minutes (minutes) Therapeutic Exercise 0 Units Therapeutic Exercise Treatment Therapeutic Exercise GS x 10 Treatment QS x 10 AAROM SLR x 10 Heel slides x 10 Therapeutic Activity Time Therapeutic Activity 10 Minutes (minutes) Therapeutic Activity 1 Units Therapeutic Activity Treatment Bed Mobility Ability Minimum Assist Chair Transfer Standby Assistance Ability Therapeutic Activity Patient ambulated 88 feet with RW MIN A with assistance Comments required for IV pole. Patient was able to bring LE off bed but required head of bed to be completely elevated with MIN A from therapist to sit up. Total Physical Therapy Time Total Therapy 18 Minutes Total Physical 1 Therapy Units Summary Daily Note Summary Patient demonstrates increased distance with ambulation to 88 feet with RW MIN A and assistance required for IV pole. VC given for breathing techniques due to increased pain with ambulation. Patient in chair with call light in reach and all needs met post treatment.
--- NOTE | 2024-06-20 12:06 | SWNOTE1 ---
SW stopped back in and spoke with pt. She stated she spoke with her friend and her friend can transport her Sunday if she does not discharge tomorrow. If she does discharge tomorrow, her sister in law will transport. Pt is going to [facility]. ROGELIO took packet to the floor. [facility] is aware of discharge over the weekend.
--- NOTE | 2024-06-20 12:39 | SWNOTE1 ---
Updated PT/OT, physician note, labs, and vitals sent to Laura at [facility].
[2024-06-20] MEDS: 0.9 % SODIUM CHLORIDE 250 ML 10 ML IV (14:31)
[2024-06-20] MEDS: LEVOFLOXACIN IN DEXTROSE 5 % 750 MG/150 ML PREMIX 100 MG IV (15:37)
[2024-06-20] MEDS: WARFARIN SODIUM 5 MG TABLET 10 MG PO (17:21)
[2024-06-20] MEDS: GABAPENTIN 300 MG CAPSULE PO (19:35)
[2024-06-20] MEDS: AMITRIPTYLINE HCL 10 MG TABLET PO (19:35)
[2024-06-20] MEDS: TEMAZEPAM 15 MG CAPSULE 30 MG PO (21:12)
[2024-06-20] MEDS: CYCLOBENZAPRINE HCL 10 MG TABLET 20 MG PO (21:12)
[2024-06-21] VITALS (19 sets, daily range): BP systolic 124–152; BP diastolic 73–81; PULSE 86–106; TEMP 36.4–36.9; O2SAT 91–100
[2024-06-21] MEDS: METHYLPREDNISOLONE SOD SUCC PF 125 MG/2 ML VIAL IVP ×4 (02:58→19:53)
[2024-06-21] MEDS: GUAIFENESIN 200 MG/DEXTROMETHORPHAN 20 MG 10 ML UNIT DOSE CUP PO ×4 (02:58→21:20)
[2024-06-21] MEDS: PIPERACILLIN SODIUM/TAZOBACTAM 3.375 GM in 0.9 % SODIUM CHLORIDE 50 ML IV ×3 (03:00→19:53)
[2024-06-21] MEDS: BENZONATATE 100 MG CAPSULE 200 MG PO ×3 (03:00→19:53)
[2024-06-21] MEDS: ONDANSETRON PF 4 MG/2 ML VIAL IV ×5 (03:44→19:53)
[2024-06-21] MEDS: MEPERIDINE HCL/PF 25 MG/ML VIAL 12.5 MG IVP ×5 (03:44→19:53)
[2024-06-21] MEDS: IPRATROPIUM BROMIDE 0.5 MG/2.5 ML VIAL.NEB IH ×6 (03:51→23:54)
[2024-06-21] MEDS: LEVALBUTEROL HCL 0.63 MG/3 ML VIAL.NEB IH ×6 (03:51→23:54)
[2024-06-21 06:14] LABS: Basophils Percent Auto 0.2 % (0.2-2.0); Eosinophils Percent Auto 0.1 % (0.9-7.0); Hematocrit 30.5 % (36.0-48.0); Immature Granulocytes Abs Auto 0.28 10^3/uL (0.00-0.03); Immature Granulocytes Pct Auto 1.6 % (0.0-0.5); Lymphocytes Absolute Auto 0.8 10^3/uL (1.2-3.8); Lymphocytes Percent Auto 4.3 % (20.5-60.0); Mean Corpuscular HGB Conc 32.8 g/dL (29.9-35.2); Mean Corpuscular Hemoglobin 31.1 pg (26.7-34.0); Mean Corpuscular Volume 94.7 fL (81.0-99.0); Mean Platelet Volume 10.3 fL (9.5-13.5); Monocytes Absolute Auto 0.5 10^3/uL (0.3-0.8); Neutrophils Percent Auto 90.8 % (43.0-75.0); Platelet Count 248 10^3/uL (150-450); Red Blood Count 3.22 10^6/uL (4.20-5.40); Red Cell Distribution Width 14.6 % (11.0-15.0); White Blood Count 17.6 10^3/uL (4.0-11.0)
[2024-06-21 06:30] LABS: Anion Gap 12.2; BUN Creatinine Ratio 19.1; Calcium 7.8 mg/dL (8.5-10.1); Carbon Dioxide 29.1 mmol/L (21.0-32.0); Chloride 106 mmol/L (98-107); Estimated GFR (African America >60 (>=60 mL/min/1.73m^2); Estimated GFR (Non-African Ame >60 (>=60 mL/min/1.73m^2); Glucose 181 mg/dL (74-106); Potassium 3.3 mmol/L (3.5-5.1); Sodium 144 mmol/L (136-145)
[2024-06-21 06:53] LABS: Prothrombin Time 86.4 sec (9.0-11.6)
--- NOTE | 2024-06-21 09:21 | P.PN_ITS ---
Progress Note: Subjective Subjective Interval history: Patient somewhat improved today, cough is definitely less today Exam Constitutional Vital Signs, click to edit/add: Last Vital Signs Temp 97.9 F 06/21/24 04:00 Pulse 98 H 06/21/24 08:03 Resp 18 06/21/24 04:00 BP 141/74 06/21/24 04:00 Pulse Ox 100 06/21/24 08:03 O2 Del Method Room Air 06/21/24 07:40 O2 Flow Rate 2 06/21/24 00:07 Documenting provider has reviewed patient's vital signs: yes Common normals: apparent distress (Mild to moderate conversational dyspnea- unchanged) Chest Common normals: inspection of chest normal; palpation of chest abnormal (Positive chest wall tenderness) Respiratory Common normals: abnormal respiratory effort (Mild conversational dyspnea- improved) and not clear to ascultation bilaterally Auscultation: rhonchi and wheezes (Much improved today, minimal wheeze) Cardio Common normals: regular rhythm; irregular rate Rate: tachycardic (Heart rate more elevated today) GI Common normals: Normal to inspection, nondistended, normoactive bowel sounds present, soft to palpation and non-tender Progress Note: Objective Labs Labs: Short CBC 06/21/24 Range/Units 06:06 WBC 17.6 H (4.0-11.0) 10^3/uL Hgb 10.0 L (12.0-16.0) g/dL Hct 30.5 L (36.0-48.0) % Plt Count 248 (150-450) 10^3/uL BMP 06/21/24 06:06 Sodium 144 Potassium 3.3 L Chloride 106 Carbon Dioxide 29.1 BUN 17.0 Creatinine 0.89 Glucose 181 H Calcium 7.8 L Progress Note: A&P Assessment and Plan (1) Chest wall pain: (2) Acute bronchitis: Qualifiers: Bronchitis organism: unspecified organism Qualified Code(s): J20.9 - Acute bronchitis, unspecified (3) Acute dehydration: (4) Protein S deficiency: Plan Admission findings: Sinus tachycardia, respiratory distress, significant elevated blood pressure, leukocytosis and lactic acidosis due to acute bronchitis resulting in severe sepsis with failed outpatient treatment Acute bronchitis leading to severe sepsis with acute exacerbation of asthma- finally improved today, wheeze persisting but much improved from previous day Cold sore-started oral agents yesterday, will start topical treatment today Hypertension-improved Chest wall pain -improving Protein S deficiency-maintain Coumadin, check INR Acute kidney injury stage II-IV fluids as outlined above-baseline creatinine earlier this year was 0.66, admission creatinine 1.12 which is 169.7% above baseline-slightly proved today Insomnia-continue with home medications Hypokalemia-supplement Hyperglycemia-secondary to steroids, will continue to monitor Generalized anxiety disorder-continue with home medications Low back pain-continue with home medications, cleared for rehab possibly tomorrow Admission findings, failed outpatient treatment, seen in the office once in ER x 2, ER evaluation shows severe sepsis without shock, medically necessary treatment will span 2 midnights. Inpatient status ?
[2024-06-21] MEDS: PHYTONADIONE (VIT K1) 10 MG/ML AMPUL 5 MG PO (09:41)
[2024-06-21] MEDS: AZITHROMYCIN 500 MG in 0.9 % SODIUM CHLORIDE 250 ML 250 MG IV (09:41)
--- NOTE | 2024-06-21 09:41 | PT.DAILY ---
Physical Therapy Daily Note PT Daily Note/Assess Start: 06/19/24 10:59 Freq: Status: Active Protocol: Document 06/21/24 09:37 JASON (Rec: 06/21/24 09:41 JASON [id number]) Physical Therapy Daily Note/Assessment Time In/Time Out Time In 09:10 Time Out 09:23 Pain In Pain N/A Pain Out Pain N/A Subjective Subjective Pt supine upon arrival. agrees to PT. Needs assistance donning CAM boot for amb. Therapeutic Activity Time Therapeutic Activity 10 Minutes (minutes) Therapeutic Activity 1 Units Therapeutic Activity Treatment Bed Mobility Ability Minimum Assist Chair Transfer Minimum Assist Ability Therapeutic Activity Supine>sit Pipe to advance upper body due to L flank Comments pain. Sits EOB unsupported without LOB while CAM boot is donned. Pt sit>stand Pipe on R side. Pt amb 80' with RW, CGA for safety. SHort step length noticed and deep breathing performed for pain control with amb. Pt returned to room to restroom. Pt able to doff gown. Set up needed for upper body bathing while pt using restroom. Pt requires assistance for washing her back, R underarm, and periarea. Pt sit>stand from toilet Pipe . Pt amb 5' with RW to sink to wash hands - no LOB. Pt returned to bed with Pipe for LEs for sit>supine transfer. Remains supine with call light in reach and needs met. Total Physical Therapy Time Total Therapy 10 Minutes Total Physical 1 Therapy Units Summary Daily Note Summary Min decrease in gait ability today due to high pain and coughing spell.
[2024-06-21] MEDS: AMLODIPINE BESYLATE 5 MG TABLET PO (09:42)
[2024-06-21] MEDS: GUAIFENESIN 600 MG TAB.ER.12H PO ×2 (09:42→21:20)
[2024-06-21] MEDS: CETIRIZINE HCL 10 MG TABLET PO (09:42)
[2024-06-21] MEDS: CELECOXIB 200 MG CAPSULE PO ×2 (09:42→21:20)
[2024-06-21] MEDS: MONTELUKAST SODIUM 10 MG TABLET PO (09:42)
[2024-06-21] MEDS: POTASSIUM CHLORIDE 10 MEQ ER TABLET PO ×2 (09:42→21:20)
[2024-06-21] MEDS: VALACYCLOVIR HCL 500 MG TABLET 1000 MG PO ×2 (09:42→21:20)
[2024-06-21] MEDS: BUDESONIDE 0.5 MG/2 ML AMPULE NEB IH ×2 (11:47→23:54)
[2024-06-21] MEDS: HYDROXYZINE PAMOATE 25 MG CAPSULE PO ×2 (12:18→21:20)
--- NOTE | 2024-06-21 14:48 | PC.NURSE ---
pt ambulated in hallway with walker assisted by this RN. pt ambulates well, returns to room without difficulty. pt back to bed with side rails up X4 bed alarm on, call light in reach, water pitcher filled and in reach. pt denies any other needs at this time.
[2024-06-21] MEDS: LIDOCAINE VISCOUS 2% 15 ML SOLUTION PO (14:55)
[2024-06-21] MEDS: LEVOFLOXACIN IN DEXTROSE 5 % 750 MG/150 ML PREMIX 100 MG IV (15:45)
[2024-06-21] MEDS: 0.9 % SODIUM CHLORIDE 250 ML 10 ML IV (19:52)
[2024-06-21] MEDS: AMITRIPTYLINE HCL 10 MG TABLET PO (19:53)
[2024-06-21] MEDS: GABAPENTIN 300 MG CAPSULE PO (19:53)
[2024-06-21] MEDS: TEMAZEPAM 15 MG CAPSULE 30 MG PO (21:20)
[2024-06-21] MEDS: CYCLOBENZAPRINE HCL 10 MG TABLET 20 MG PO (21:20)
[2024-06-22] VITALS (10 sets, daily range): BP systolic 119–161; BP diastolic 65–89; PULSE 92–112; TEMP 36.4–36.9; O2SAT 91–98
[2024-06-22] MEDS: BENZONATATE 100 MG CAPSULE 200 MG PO ×2 (03:08→12:34)
[2024-06-22] MEDS: PIPERACILLIN SODIUM/TAZOBACTAM 3.375 GM in 0.9 % SODIUM CHLORIDE 50 ML IV (03:08)
[2024-06-22] MEDS: GUAIFENESIN 200 MG/DEXTROMETHORPHAN 20 MG 10 ML UNIT DOSE CUP PO ×2 (03:08→08:14)
[2024-06-22] MEDS: METHYLPREDNISOLONE SOD SUCC PF 125 MG/2 ML VIAL IVP ×2 (03:08→08:14)
[2024-06-22] MEDS: IPRATROPIUM BROMIDE 0.5 MG/2.5 ML VIAL.NEB IH ×3 (03:57→11:34)
[2024-06-22] MEDS: LEVALBUTEROL HCL 0.63 MG/3 ML VIAL.NEB IH ×3 (03:57→11:34)
[2024-06-22] MEDS: MEPERIDINE HCL/PF 25 MG/ML VIAL 12.5 MG IVP ×4 (04:02→12:34)
[2024-06-22] MEDS: ONDANSETRON PF 4 MG/2 ML VIAL IV ×4 (04:02→12:34)
[2024-06-22 06:27] LABS: Basophils Percent Auto 0.2 % (0.2-2.0); Hematocrit 30.7 % (36.0-48.0); Hemoglobin 10.4 g/dL (12.0-16.0); Immature Granulocytes Abs Auto 0.32 10^3/uL (0.00-0.03); Immature Granulocytes Pct Auto 2.6 % (0.0-0.5); Lymphocytes Absolute Auto 0.9 10^3/uL (1.2-3.8); Lymphocytes Percent Auto 6.9 % (20.5-60.0); Mean Corpuscular HGB Conc 33.9 g/dL (29.9-35.2); Mean Corpuscular Hemoglobin 31.8 pg (26.7-34.0); Mean Corpuscular Volume 93.9 fL (81.0-99.0); Mean Platelet Volume 10.5 fL (9.5-13.5); Monocytes Absolute Auto 0.4 10^3/uL (0.3-0.8); Monocytes Percent Auto 3.5 % (1.7-12.0); Neutrophils Absolute Auto 10.8 10^3/uL (1.4-6.5); Neutrophils Percent Auto 86.8 % (43.0-75.0); Platelet Count 254 10^3/uL (150-450); Red Blood Count 3.27 10^6/uL (4.20-5.40); Red Cell Distribution Width 14.4 % (11.0-15.0); White Blood Count 12.5 10^3/uL (4.0-11.0)
[2024-06-22 06:38] LABS: INR 1.79; Prothrombin Time 17.9 sec (9.0-11.6)
[2024-06-22 06:42] LABS: Anion Gap 13.4; BUN Creatinine Ratio 19.5; Calcium 7.7 mg/dL (8.5-10.1); Carbon Dioxide 29.5 mmol/L (21.0-32.0); Chloride 105 mmol/L (98-107); Estimated GFR (African America >60 (>=60 mL/min/1.73m^2); Estimated GFR (Non-African Ame >60 (>=60 mL/min/1.73m^2); Glucose 150 mg/dL (74-106); Sodium 145 mmol/L (136-145)
[2024-06-22 06:45] LABS: Potassium 2.9 mmol/L (3.5-5.1)
[2024-06-22] MEDS: AZITHROMYCIN 500 MG in 0.9 % SODIUM CHLORIDE 250 ML 250 MG IV (08:13)
[2024-06-22] MEDS: CELECOXIB 200 MG CAPSULE PO (08:13)
[2024-06-22] MEDS: HYDROXYZINE PAMOATE 25 MG CAPSULE PO (08:14)
[2024-06-22] MEDS: CETIRIZINE HCL 10 MG TABLET PO (08:14)
[2024-06-22] MEDS: GUAIFENESIN 600 MG TAB.ER.12H PO (08:14)
[2024-06-22] MEDS: VALACYCLOVIR HCL 500 MG TABLET 1000 MG PO (08:14)
[2024-06-22] MEDS: MONTELUKAST SODIUM 10 MG TABLET PO (08:14)
[2024-06-22] MEDS: AMLODIPINE BESYLATE 5 MG TABLET PO (08:14)
[2024-06-22] MEDS: POTASSIUM CHLORIDE 10 MEQ ER TABLET PO (08:14)
--- NOTE | 2024-06-22 10:02 | P.DS_ITS ---
DS: Providers Provider Date of admission: 06/18/24 17:06 Primary care physician: Travis Deras MD Consults: 06/18/24 17:38 Consult to Pharmacy Routine Consulting Provider: Reason for consultation: Please [place] me when Med Rec is Updated Has provider been notified: No 06/19/24 08:00 Consult to Embedded Systems Software Developer Routine Reason for consult:: Usp Other reason:: wants to see about [facility] 06/19/24 08:01 Occupational Therapy Eval and Treat Routine Reason for consultation: placement Physical Therapy Eval and Treat Routine Reason for consultation: placement Has provider been notified: No DS: Diagnosis Discharge Diagnosis (1) Chest wall pain: (2) Acute bronchitis: Qualifiers: Bronchitis organism: unspecified organism Qualified Code(s): J20.9 - Acute bronchitis, unspecified (3) Acute dehydration: (4) Protein S deficiency: Plan Admission findings: Sinus tachycardia, respiratory distress, significant elevated blood pressure, leukocytosis and lactic acidosis due to acute bronchitis resulting in severe sepsis with failed outpatient treatment Acute bronchitis leading to severe sepsis with acute exacerbation of asthma- finally improved today, wheeze persisting but much improved from previous day Cold sore-started oral agents yesterday, will start topical treatment today Hypertension-improved Chest wall pain -improving Protein S deficiency-maintain Coumadin, check INR Acute kidney injury stage II-IV fluids as outlined above-baseline creatinine earlier this year was 0.66, admission creatinine 1.12 which is 169.7% above baseline-slightly proved today Insomnia-continue with home medications Hypokalemia-supplement Hyperglycemia-secondary to steroids, will continue to monitor Generalized anxiety disorder-continue with home medications Low back pain-continue with home medications, cleared for rehab possibly tomorrow Admission findings, failed outpatient treatment, seen in the office once in ER x 2, ER evaluation shows severe sepsis without shock, medically necessary treatment will span 2 midnights. Inpatient status 15:00 DS: Summary Hospital Course Hospital Course: Patient was seen and evaluated in the emergency room after failed outpatient treatment with Sinus tachycardia, respiratory distress, significant elevated blood pressure, leukocytosis and lactic acidosis due to acute bronchitis resulting in severe sepsis with failed outpatient treatment, with placed on steroids, IV antibiotics, frequent aerosol treatments at 1 point she was requiring aerosol treatments every 2 hours, wheezing improved yesterday and is essentially resolved today, dyspnea also much improved, patient still with significant weakness and should be transferred to rehab and is an excellent rehabilitation candidate, she will follow-up with me in the office postdischarge and medications see list Time Spent with Patient Time attestation: Total time spent providing and/or coordinating discharge services: Exam Constitutional Vital Signs, click to edit/add: Last Vital Signs Temp 98.4 F 06/22/24 09:51 Pulse 112 H 06/22/24 09:51 Resp 18 06/22/24 04:02 BP 119/65 06/22/24 09:51 Pulse Ox 96 06/22/24 09:51 O2 Del Method Room Air 06/22/24 07:35 O2 Flow Rate 2 06/21/24 00:07 Documenting provider has reviewed patient's vital signs: yes Common normals: no apparent distress (No significant respiratory distress) Chest Common normals: inspection of chest normal; palpation of chest abnormal (Positive chest wall tenderness) Respiratory Common normals: normal respiratory effort (No significant respiratory distress); not clear to ascultation bilaterally Auscultation: rhonchi (Much improved); no wheezes (Resolved) Cardio Common normals: regular rhythm; irregular rate Rate: tachycardic (Heart rate more elevated today) GI Common normals: Normal to inspection, nondistended, normoactive bowel sounds present, soft to palpation and non-tender DS: Data Data Completed and Pending Labs on day of discharge: Labs from last 24 hours 06/22/24 06:00 WBC 12.5 H RBC 3.27 L Hgb 10.4 L Hct 30.7 L MCV 93.9 MCH 31.8 MCHC 33.9 RDW 14.4 Plt Count 254 MPV 10.5 Neut % (Auto) 86.8 H Lymph % (Auto) 6.9 L [place] % (Auto) 3.5 Eos % (Auto) 0.0 L Baso % (Auto) 0.2 Neut # (Auto) 10.8 H Lymph # (Auto) 0.9 L [place] # (Auto) 0.4 Eos # (Auto) 0.0 Baso # (Auto) 0.0 Abs Immat Gran (auto) 0.32 H Imm/Tot Granulo (auto) 2.6 H PT 17.9 H INR 1.79 Sodium 145 Potassium 2.9 L* Chloride 105 Carbon Dioxide 29.5 Anion Gap 13.4 BUN 17.0 Creatinine 0.87 Est GFR ( Amer) >60 Est GFR (Non-Af Amer) >60 BUN/Creatinine Ratio 19.5 Glucose 150 H Calcium 7.7 L Preliminary micro results at discharge 06/18/24 15:00 Blood Culture Result 2 - Preliminary Blood NO GROWTH AT 36-48 HOURS. FINAL TO FOLLOW. 06/18/24 14:50 Blood Culture Result 1 - Preliminary Blood NO GROWTH AT 36-48 HOURS. FINAL TO FOLLOW. Discharge Plan Discharge Disposition: Xfer SNF Condition: Fair Discharge Medications: New cetirizine 10 mg Tablet 10 mg PO QD Qty: 60 0RF dextromethorphan-guaifenesin 10-100 mg/5 mL Syrup 10 ml PO Q6H Qty: 1000 0RF valacyclovir 500 mg Tablet 1,000 mg PO BID Qty: 14 0RF benzonatate 100 mg Capsule 200 mg PO Q8H Qty: 14 0RF warfarin [Jantoven] 5 mg Tablet 5 mg PO Q24H Qty: 30 0RF guaifenesin [Mucus Relief ER] 600 mg Tablet Extended Release 12hr 600 mg PO Q12H Qty: 60 0RF prednisone 10 mg tablet 50 mg PO DAILY Qty: 47 0RF Rx Instructions: 5/day for 3 days. 4/day for 3 days, 3/day for 3 days, 2/day for 3 days, 1/day for 3 days, 1/2 /day for 4 days levofloxacin 500 mg tablet 500 mg PO DAILY Qty: 10 0RF Continued hydroxyzine pamoate [Vistaril] 25 mg capsule 25 mg PO Q6H PRN (Reason: anxiety) amlodipine 5 mg tablet 5 mg PO DAILY celecoxib 200 mg capsule 200 mg PO BID benzonatate 100 mg capsule 100 mg PO Q8H PRN (Reason: cough) gabapentin 300 mg capsule 300 mg PO QPM Rx Instructions: at 8pm levofloxacin 750 mg tablet 750 mg PO DAILY Rx Instructions: 06/17/24-06/26/24 albuterol sulfate 90 mcg/actuation HFA aerosol inhaler 2 puff INHALATION Q4H PRN (Reason: shortness of breath or wheezing) warfarin [Jantoven] 5 mg tablet 10 mg PO DAILY cyclobenzaprine 10 mg tablet 20 mg PO BEDTIME temazepam 30 mg capsule 30 mg PO BEDTIME amitriptyline 10 mg tablet 10 mg PO QPM Patient Comments: DAILY AT 8 PM promethazine 25 mg tablet 25 mg PO Q6H PRN (Reason: nausea and vomiting) Qty: 30 11RF Discontinued prednisone 20 mg tablet 60 mg PO DAILY Patient Comments: 06/17/24-06/22/24 doxycycline monohydrate 100 mg capsule 100 mg PO BID Rx Instructions: 06/14/24-06/23/24 Print Language: Guamanian Document Design Specialist/Head Kiln Operator Instructions: Discharge to [facility] Forms: Portal Instructions
[2024-06-22] MEDS: POTASSIUM CHLORIDE 40 MEQ in 0.9 % SODIUM CHLORIDE 250 ML 67.5 MEQ IV (10:12)
--- NOTE | 2024-06-22 10:12 | PC.NURSE ---
Dr. Deras notified that pts ride will be here at noon and would only get half of iv potassium replacement. He okay'ed that.
--- NOTE | 2024-06-22 10:36 | PC.NURSE ---
procedure writer clarified with Dr. Deras that he was not sending patient to rehab facility with pain meds, Dr. Deras confirmed.
[2024-06-22] MEDS: BUDESONIDE 0.5 MG/2 ML AMPULE NEB IH (11:34)
--- NOTE | 2024-06-22 11:39 | PC.NURSE ---
nurse attempted to call report to [facility], no one would nut picker the phone. Will try again shortly
--- NOTE | 2024-06-22 13:02 | PC.NURSE ---
report given to suzanne at [facility], all questions answered
== END 2024-06-22 13:05 | DRG 872 ==
LOC: ER 15:54 → MS 17:08
PROVIDERS: Admitting Provider Family Medicine; Emergency Provider Emergency Medicine; PCP Family Medicine; Visit Provider Family Medicine
DX: A41.9 Sepsis, unspecified organism (principal); D68.59 Other primary thrombophilia; J45.901 Unspecified asthma with (acute) exacerbation; N17.9 Acute kidney failure, unspecified; E87.20 Acidosis, unspecified; J20.9 Acute bronchitis, unspecified; R65.20 Severe sepsis without septic shock; R07.89 Other chest pain; R06.02 Shortness of breath; Z90.710 Acquired absence of both cervix and uterus; Z90.49 Acquired absence of other specified parts of digestive tract; Z79.899 Other long term (current) drug therapy; D64.9 Anemia, unspecified; I10 Essential (primary) hypertension; E86.0 Dehydration; R06.03 Acute respiratory distress; R74.02 Elevation of levels of lactic acid dehydrogenase [LDH]; Z79.01 Long term (current) use of anticoagulants; G47.00 Insomnia, unspecified; F41.1 Generalized anxiety disorder; M54.50 Low back pain, unspecified; B00.9 Herpesviral infection, unspecified; E87.6 Hypokalemia; R73.9 Hyperglycemia, unspecified; T38.0X5A Adverse effect of glucocorticoids and synthetic analogues, initial encounter; Z86.73 Personal history of transient ischemic attack (TIA), and cerebral infarction without residual deficits; R06.00 Dyspnea, unspecified
CPT/HCPCS: 36410; 36415; 71046; 80048; 80053; 82800; 83605; 83735; 83880; 84484; 85025; 85610; 87040; 87070; 87205; 87804; 87811; 94640; 94667; 94668; 94761; 96365; 96372; 96375; 97161; 97165; 97530; 97535; 99284; 99285; C1887; J0456; J1171; J1885; J2175; J2405; J2543; J2919; J3430; J3475; J3480; Q0162; Q0177

== ENCOUNTER 2024-06-24 05:48 | Outpatient (RCR) | payer MEDICARE, OTHER, SELFPAY | END 2024-07-23 16:21 | disposition home or self-care (01) | LOC: MM 05:48 | PROVIDERS: PCP Family Medicine; Visit Provider Internal Medicine | DX: Z51.81 Encounter for therapeutic drug level monitoring (principal); Z79.01 Long term (current) use of anticoagulants ==

== ENCOUNTER 2024-07-24 04:42 | Outpatient (RCR) | payer MEDICARE, OTHER, SELFPAY | END 2024-08-23 07:09 | disposition home or self-care (01) | LOC: MM 04:42 | PROVIDERS: PCP Family Medicine; Visit Provider Internal Medicine | DX: Z51.81 Encounter for therapeutic drug level monitoring (principal); Z79.01 Long term (current) use of anticoagulants | CPT/HCPCS: 85610; G0463 ==

== ENCOUNTER 2024-08-19 11:25 | Outpatient (OUT) | payer MEDICARE, OTHER, SELFPAY | END 2024-08-19 11:26 | disposition home or self-care (01) | LOC: US 11:26 | PROVIDERS: PCP Family Medicine; Visit Provider Family Medicine | DX: R60.0 Localized edema (principal); R60.9 Edema, unspecified | CPT/HCPCS: 93970 ==

== ENCOUNTER 2024-08-24 08:18 | Outpatient (RCR) | payer MEDICARE, OTHER, SELFPAY | END 2024-09-18 15:03 | disposition home or self-care (01) | LOC: MM 08:18 | PROVIDERS: PCP Family Medicine; Visit Provider Internal Medicine | DX: Z51.81 Encounter for therapeutic drug level monitoring (principal); Z79.01 Long term (current) use of anticoagulants | CPT/HCPCS: 85610; G0463 ==

== ENCOUNTER 2024-09-23 02:28 | Outpatient (RCR) | payer MEDICARE, OTHER, SELFPAY | END 2024-10-23 16:43 | disposition home or self-care (01) | LOC: MM 02:28 | PROVIDERS: PCP Family Medicine; Visit Provider Internal Medicine | DX: Z51.81 Encounter for therapeutic drug level monitoring (principal); Z79.01 Long term (current) use of anticoagulants ==

== ENCOUNTER 2024-10-24 00:14 | Outpatient (RCR) | payer MEDICARE, OTHER, SELFPAY | END 2024-11-20 12:59 | disposition home or self-care (01) | LOC: MM 00:14 | PROVIDERS: PCP Family Medicine; Visit Provider Internal Medicine | DX: Z51.81 Encounter for therapeutic drug level monitoring (principal); Z79.01 Long term (current) use of anticoagulants ==

== ENCOUNTER 2024-11-24 01:52 | Outpatient (RCR) | payer MEDICARE, OTHER, SELFPAY | END 2024-12-23 15:22 | disposition home or self-care (01) | LOC: MM 01:52 | PROVIDERS: PCP Family Medicine; Visit Provider Internal Medicine | DX: Z51.81 Encounter for therapeutic drug level monitoring (principal); Z79.01 Long term (current) use of anticoagulants; I82.409 Acute embolism and thrombosis of unspecified deep veins of unspecified lower extremity ==

== ENCOUNTER 2024-12-24 04:33 | Outpatient (RCR) | payer MEDICARE, OTHER, SELFPAY | END 2025-01-23 23:59 | disposition home or self-care (01) | LOC: MM 04:33 | PROVIDERS: PCP Family Medicine; Visit Provider Internal Medicine | DX: Z51.81 Encounter for therapeutic drug level monitoring (principal); Z79.01 Long term (current) use of anticoagulants ==

== ENCOUNTER 2024-12-28 09:02 | Emergency (ER) | payer MEDICARE, OTHER, SELFPAY ==
[2024-12-28] VITALS (23 sets, daily range): BP systolic 126–155; BP diastolic 72–87; PULSE 88–106; TEMP 36.9; O2SAT 82–100; BMI 22.7
--- NOTE | 2024-12-28 09:19 | ECG_ITS ---
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 Measurements Intervals [place] Rate: 98 P: 65 OK: 148 QRS: 15 QRSD: 86 T: 62 QT: 330 QTc: 386 Interpretive Statements 1100 Sinus rhythm 9110 normal ECG Compared to ECG 11/23/2023 10:44:16 No significant changes Electronically Signed On 12-28-2024 13:30:23 EDT by SAMPSON MOE M.D.
--- NOTE | 2024-12-28 09:29 | XR_ITS ---
The [address] [address] Patient Name: FEROZ DUTTA MRN: [id number] date: 1960 Sex: F Assigned Patient Location: ED.MAIN Current Patient Location: ED.MAIN Accession/Order Number: [id number] Exam Date: 12/28/2024 10:25 Report Date: 12/28/2024 10:46 At the request of: JENNIFER BROWN MD Procedure: XR abdomen 1V KUB: CLINICAL INFORMATION: Epigastric abdominal pain. COMPARISON: CT 11/23/2023 FINDINGS: Post cholecystomy clips, IVC filter and vascular stents are noted. No bowel obstruction or free air. Osseous structures demonstrate degenerative change. XR/XR abdomen 1V IMPRESSION: No acute process. Impression dictated by: David Aj Jr., D.OCiro 12/28/2024 10:46 AM Dictation Location: [employer] Electronically authenticated by: [id number] Y Date: 12/28/2024 10:46
[2024-12-28] MEDS: 0.9 % SODIUM CHLORIDE 1,000 ML 500 ML IV (09:46)
[2024-12-28] MEDS: KETOROLAC TROMETHAMINE 30 MG/ML VIAL 15 MG IVP (09:51)
[2024-12-28] MEDS: FAMOTIDINE/PF 20 MG/2 ML VIAL IV (09:53)
[2024-12-28] MEDS: DIPHENHYDRAMINE HCL 50 MG/ML VIAL 25 MG IVP (09:56)
--- OUTSIDE RECORDS SUMMARY | 2024-12-28 09:59 | XMS_ITS | CCD ---
Author Organization [facility] Care Team Providers Care Senior Compensation Consultant Name Role Phone SHAD, ABDULAZIM Unavailable Unavailable SHAD, ABDULAZIM Unavailable Unavailable HOY, EZEKIEL Unavailable Unavailable HOY, EZEKIEL Unavailable Unavailable RI Unavailable Unavailable SHAD, ABDULAZIM Unavailable Unavailable RI Unavailable Unavailable AGUSTO RON Unavailable Unavailable SHAD, ABDULAZIM Unavailable Unavailable SHAD, ABDULAZIM Unavailable Unavailable SHAD, ABDULAZIM Unavailable Unavailable HOY, EZEKIEL Unavailable Unavailable NAWRAS, ALI T Unavailable Unavailable NAWRAS, ALI T Unavailable Unavailable HOY, EZEKIEL Unavailable Unavailable HOY, EZEKIEL Unavailable Unavailable RI Unavailable Unavailable NAWRAS, ALI T Unavailable Unavailable RI Unavailable Unavailable AGUSTO RON Unavailable Unavailable Ezekiel Cheney Primary Care Physician DR EZEKIEL TELLO Attending Unavailable NONI Tanner, DR FALCON Admitting Unavailable DR EZEKIEL TELLO Primary Care Unavailable KOBE CHOUDHARY Attending Unavailable KOBE CHOUDHARY Admitting Unavailable MARLON ARREOLA Consulting Unavailable DR EZEKIEL TELLO Primary Care Unavailable KOBE CHOUDHARY Consulting Unavailable DR BRUCE HILL Consulting Unavailable ZECHARIAH MCDONALD Admitting Unavailable ZECHARIAH MCDONALD Attending Unavailable DR EZEKIEL TELLO Primary Care Unavailable DR RENATO CANO Consulting Unavailable DR MOI LAGUNAS Admitting Unavailrom LAGUNAS, DR MOI Doyle Attending UnavailDR EZEKIEL Crawford Primary Care Unavailable JENIFER SAPP Attending Unavailable JENIFER SAPP Admitting Unavailable JENIFER SAPP Consulting Unavailable DR EZEKIEL TELLO Primary Care Unavailable STEVE BENÍTEZ Consulting Unavailable DR EZEKIEL TELLO Attending Unavailable DR EZEKIEL TELLO Primary Care Unavailable DR EZEKIEL TELLO Admitting Unavailable DR EZEKIEL TELLO Consulting Unavailable JANNETH DR MOI Doyle Consulting Unavailrom HILL, DR BRUCE Lr Consulting Unavailable READER, EZEKIEL Consulting Unavailable UNLU, SOLO Consulting Unavailable HEMYLES, [...] FALCON Primary Care Unavailable HOY ., DR FACLON Consulting Unavailable WEST, DR TATIANA Mcdonough Consulting [...] Unavailable PAY ., DR WHITAKER Consulting Unavailable DERTERESA DIETRICH Consulting Unavailable MALCOLM ., DR FELIX Rahman [...] YUN ., DR FELIX Rahman Attending Unavailable YUN ., DR FELIX Rahman Admitting Unavailable HOY [...] Unavailable MARKER ., DR FARNSWORTH Consulting Unavailable NEWLETA, LISA Consulting Unavailable HOY ., DR FALCON [...] LARA Referring Unavailable ALESSIA WHITE Attending Unavailable HOY, EZEKIEL M Referring Unavailable HOY, EZEKIEL M Primary Care Unavailable LISET HUTSON Attending Unavailable HOY, EZEKIEL M Referring Unavailable HOY, EZEKIEL M Primary Care Unavailable HOY, EZEKIEL M Referring Unavailable HOY, EZEKIEL M Primary Care Unavailable LISET HUTSON Attending Unavailable HOY, EZEKIEL M Referring Unavailable HOY, EZEKIEL M Primary Care Unavailable Ezekiel Cheney MD Primary Care Provider Ezekiel Cheney MD Primary Care Provider [phone] Ezekiel Cheney MD Primary Care Provider [phone] Ezekiel Cheney MD Primary Care Provider [phone] SUKI YOUNGER Attending Unavailable HOY, EZEKIEL M Referring Unavailable HOY, EZEKIEL M Primary Care Unavailable SHENDGE V, SUKI Attending Unavailable HOY, EZEKIEL M Referring Unavailable HOY, EZEKIEL M Primary Care Unavailable SHENDGE V, SUKI Attending Unavailable HOY, EZEKIEL M Referring Unavailable HOY, EZEKIEL M Primary Care Unavailable SHENDGE V, SUKI Attending Unavailable HOY, EZEKIEL M Referring Unavailable HOY, EZEKIEL M Primary Care Unavailable Ezekiel Cheney MD Primary Care Provider [phone] HOY, EZEKIEL M Primary Care Unavailable KALEY KNOWLES Attending Unavailable HOY, EZEKIEL M Referring Unavailable HOY, EZEKIEL M Primary Care Unavailable HOY, EZEKIEL M Primary Care Unavailable SAMPSON NG Attending Unavailable SHENDGE V, SUKI Referring Unavailable HOY, EZEKIEL M Primary Care Unavailable HOY, EZEKIEL M Primary Care Unavailable CHELSEA KAPLAN Admitting Unavailable CHELSEA KAPLAN Attending Unavailable HOY, EZEKIEL M Primary Care Unavailable KASHMIR AVILA Attending Unavailable HOY, EZEKIEL M Primary Care Unavailable MARLON LEE Attending Unavailable BRAD SHEARER Referring Unavailable SHADI DUARTE Attending Unavailable BRAD SHEARER Referring Unavailable SHADI DUARTE Referring Unavailable JR. AMADOR GEORGE C Attending Unavaila anirudh AMADOR JR., GEORGE C Referring Unavaila SHADI Oneil Attending Unavailable MOSES CROCKETT Attending Unavailable SHADI DUARTE Referring Unavailable SHADI DUARTE Referring Unavailable DEE SHARP Attending Unavailable SHADI DUARTE Attending Unavailable SHADI DUARTE Referring Unavailable BRITNEY SEN Attending Unavailable SHADI DUARTE Referring Unavailable BRITNEY SEN Attending Unavailable SHADI DUARTE Referring Unavailable Allergies Allergy Classification Reported Allergen(s) Allergy Type Date of Onset Reaction(s) Facility (20 sources) morphine; Translations: [MORPHINE] Drug Allergy 08-05-19 18 Anaphylaxis (disorder), Unknown, Itching [facility] Repository (4 sources) prochlorperazine Drug Allergy 02-04-[address] [facility] Repository (4 sources) Iodinated Contrast Media - IV Dye Drug allergy (disorder) 02-04-[address] [facility] Repository (8 sources) Baclofen; Translations: [baclofen] Drug Allergy 06-05-20 23 Anaphylaxis (disorder), Anaphylaxis [facility] [place] (8 sources) cefdinir; Translations: [cefdinir] Drug Allergy 08-29-19 23 Weal (disorder), Hives [facility] [place] (20 sources) Contrast media; Translations: [contrast media (iodine-based)] Drug allergy 10-14-19 18 Anaphylaxis (disorder), Unknown [facility] [place] (20 sources) Prochlorperazine; Translations: [prochlorperazine] Drug Allergy 03-13-20 14 Weal (disorder), Unknown [facility] [place] (2 sources) Clindamycin Drug Allergy 10-05-19 17 [facility] Repository (2 sources) Dihydroergotamine Drug Allergy 07-13-19 21 [facility] Repository (1 source) HYDROmorphone Drug Allergy 05-11-19 22 [facility] Repository (1 source) Valproate Drug Allergy [facility] Repository (1 source) ALLERGIES NOT ON FILE; Translations: [ALLERGIES NOT ON FILE] Propensity to adverse reactions (disorder) [facility] Repository (20 sources) Clindamycin; Translations: [CLINDAMYCIN] Drug Allergy 08-29-19 23 Unknown, [facility] Repository (3 sources) IODINATED CONTRAST MEDIA; Translations: [IODINATED CONTRAST MEDIA] Propensity to adverse reactions to drug (disorder) 10-14-19 18 [facility] Repository (20 sources) Baclofen Drug Allergy 08-29-19 23 [facility] (20 sources) cefdinir Drug Allergy 08-29-19 23 Unknown [facility] Healthcare Medications Current Medications Medication Drug Class(es) Dates Sig (Normalized) Sig (Original) acetaminophen 325 mg oral tablet (4 sources) Start: 11-08-2022 take 2 tablets by mouth every six hours acetaminophen (TYLENOL) 325 mg tablet Take 2 tablets (650 mg total) by mouth every 6 (six) hours. 30 tablet 11/08/2022 Active [id number] 200 actuat albuterol 0.09 mg/actuat metered dose inhaler (6 sources) beta2-Adrenergic Agonist Start: 06-14-2024 take 2 puff(s) by inhalation every four hours as needed for wheezing albuterol (PROVENTIL HFA;VENTOLIN HFA) 90 mcg/actuation inhaler Indications: Bronchitis Inhale 2 puffs every 4 (four) hours as needed for wheezing. 59.5 g 06/14/2024 Active Start: 09-23-2021 take 2.5 mg by inhal ation four times daily albuterol 0.083% Inh Elvira 3 mL 2.5 mg, 3 mL, NEB, QID, Refill(s) 0 Start Date: 09/23/21 Status: Ordered End: 12-25-2023 albuterol (2.5 MG/3ML) 0.083 % nebulizer solution albuterol sulfate 2.5 mg/3 mL (0.083 %) solution for nebulization 12/25/2023 Discontinued (Therapy completed) alendronic acid 70 mg oral tablet (5 sources) Bisphosphonate take 1 tablet by mouth in the morning alendronate (FOSAMAX) 70 mg tablet Take 1 tablet (70 mg total) by mouth every 7 days. In a.m. with water on empty stomach, nothing else by mouth and remain upright for 30min Active End: 12-25-2023 take 1 tablet by mouth every week alendronate (Fosamax) 70 MG tablet Fosamax 70 mg tablet Take 1 tablet every week by oral route. 12/25/2023 Discontinued (Therapy completed) aluminum hydroxide 40 mg/ml / magnesium hydroxide 40 mg/ml oral suspension (3 sources) End: 12-25-2023 aluminum-magnesium hydroxide 200-200 MG/5ML suspension Take by mouth every 6 (six) hours if needed for heartburn. 12/25/2023 Discontinued (Therapy completed) amitriptyline hydrochloride 10 mg oral tablet (12 sources) Tricyclic Antidepressant Start: 04-09-2024 End: 11-04-2024 amitriptyline (ELAVIL) 10 mg tablet Indications: Fibromyalgia Take one tablet at bedtime 30 tablet 5 11/04/2024 Active Start: 03-27-2024 End: 04-09-2024 take 2 tablets by mouth once daily amitriptyline (ELAVIL) 10 mg tablet Indications: Fibromyalgia Take 2 tablets (20 mg total) by mouth nightly for 30 days. 60 tablet 03/27/2024 04/09/2024 Discontinued (Reorder) amLODIPine 5 mg oral tablet (7 sources) Dihydropyridine Calcium Channel Cecil Start: 07-13-2022 End: 12-25-2023 amLODIPine (Norvasc) 5 MG tablet 07/13/2022 12/25/2023 Discontinued (Therapy completed) amylase [id number] unt / lipase [id number] unt / protease [id number] unt delayed release oral capsule (1 source) Start: 09-23-2021 take 1 capsule by mouth three times daily Creon 24,000 units oral delayed release capsule = 1 cap(s), Oral, TID, Refills(s) 0 Start Date: 09/23/21 Status: Ordered benzonatate 100 mg oral capsule (2 sources) Non-narcotic Antitussive Start: 06-14-2024 take 1 capsule by mouth three times daily as needed for cough benzonatate (TESSALON PERLES) 100 mg capsule Indications: Displaced fracture of distal phalanx of left great toe, initial encounter for closed fracture Take 1 capsule (100 mg total) by mouth 3 (three) times a day as needed for cough. 21 capsule 06/14/2024 Active bisacodyl 5 mg delayed release oral tablet (2 sources) Stimulant Laxative Start: 10-08-2022 take 1 tablet by mouth once daily as needed for constipation bisacodyL (DULCOLAX) 5 mg EC tablet Take 1 tablet (5 mg total) by mouth daily as needed for constipation. 30 tablet 10/08/2022 Active calcium carbonate 500 mg chewable tablet (3 sources) End: 12-25-2023 calcium carbonate (Tums) 500 MG chewable tablet Chew 500 mg in the morning. 12/25/2023 Discontinued (Therapy completed) celecoxib 200 mg oral capsule (12 sources) Nonsteroidal Anti-inflammatory Drug Start: 09-23-2021 End: 11-04-2024 take 1 capsule by mouth in the morning, then take 1 capsule by mouth at bedtime celecoxib (CeleBREX) 200 mg capsule Indications: Fibromyalgia Take 1 capsule (200 mg total) by mouth in the morning and 1 capsule (200 mg total) before bedtime. 30 capsule 11/04/2024 Active cetirizine hydrochloride 10 mg oral tablet (4 sources) Histamine-1 Receptor Antagonist take 1 tablet by mouth in the morning cetirizine (ZyrTEC) 10 mg tablet Indications: allergic rhinitis Take 1 tablet (10 mg total) by mouth in the morning. Indications: inflammation of the nose due to an allergy. Active cyclobenzaprine hydrochloride 10 mg oral tablet (20 sources) Muscle Relaxant Start: 04-24-2024 End: 11-04-2024 cyclobenzaprine (FLEXERIL) 10 mg tablet Indications: Fibromyalgia Take one tablet at bedtime 30 tablet 5 11/04/2024 Active Start: 04-18-2024 cyclobenzaprin e (FLEXERIL) 10 mg tablet Indications: Fibromyalgia Take one tablet at bedtime 30 tablet 5 04/18/2024 Active Start: 08-02-2022 End: 04-18-2024 take 1 tablet by mouth three times daily as needed cyclobenzaprine (Flexeril) 10 MG tablet Take 10 mg by mouth 3 (three) times a day as needed. 08/02/2022 Active cyproheptadine hydrochloride 4 mg oral tablet (1 source) Start: 09-23-2021 take 1 tablet by mouth at bedtime cyproheptadine 4 mg Tab 4 mg = 1 tab(s), Oral, Bedtime, Refills(s) 0 Start Date: 09/23/21 Status: Ordered dextromethorphan hydrobromide 2 mg/ml / guaiFENesin 20 mg/ml oral solution (2 sources) Uncompetitive H-piztml-S-aspartat e Receptor Antagonist, Sigma-1 Agonist Start: 03-03-2023 take 5 mL by mouth every four hours as needed for cough dextromethorphan-gu aiFENesin (ROBITUSSIN-DM) 10-100 mg/5 mL liquid Take 5 mL by mouth every 4 (four) hours as needed for cough. 236 mL 5 03/03/2023 Active dicyclomine hydrochloride 20 mg oral tablet (5 sources) Anticholinergic Start: 09-23-2021 take 1 tablet by mouth three times daily dicyclomine 20 mg Tab 20 mg = 1 tab(s), Oral, TID, Refills(s) 0 Start Date: 09/23/21 Status: Ordered diphenhydrAMINE hydrochloride 25 mg oral capsule (4 sources) Histamine-1 Receptor Antagonist Start: 08-24-2023 take 2 capsules by mouth every six hours as needed diphenhydrAMINE (BenadryL) 25 mg capsule Indications: Contrast media allergy Take 2 capsules (50 mg total) by mouth every 6 (six) hours as needed for allergies (contrast allergy follow prep giving in DrCiro office). 1 capsule 08/24/2023 Active doxepin hydrochloride 10 mg oral capsule (3 sources) Tricyclic Antidepressant End: 12-25-2023 take 1 capsule by mouth at bedtime doxepin (SINEquan) 10 MG capsule Take 10 mg by mouth at bedtime. 12/25/2023 Discontinued (Therapy completed) ferrous sulfate 325 mg delayed release oral tablet (1 source) Start: 09-23-2021 take 1 tablet by mouth three times daily ferrous sulfate 325 mg oral enteric coated tablet 325 mg = 1 tab(s), Oral, TID, Refills(s) 0 Start Date: 09/23/21 Status: Ordered gabapentin 300 mg oral capsule (20 sources) Anti-epileptic Agent Start: 03-27-2024 End: 11-04-2024 take 1 capsule by mouth in the evening gabapentin (NEURONTIN) 300 mg capsule Indications: Fibromyalgia TAKE 1 CAPSULE BY MOUTH AT 8 PM 30 capsule 5 11/04/2024 Active Start: 09-23-2021 take 5 capsules by m outh three times daily gabapentin 100 mg Cap 500 mg = 5 cap(s), Oral, TID, Refills(s) 0 Start Date: 09/23/21 Status: Ordered gabapentin (Neur ontin) 300 MG capsule 100 mg Active gabapentin (Neur ontin) 300 MG capsule gabapentin 300 mg capsule Active hydrOXYzine pamoate 25 mg oral capsule (20 sources) Antihistamine Start: 09-23-2021 take 1 capsule by mouth four times daily hydrOXYzine pamoate 25 mg Cap 25 mg = 1 cap(s), Oral, QID, Refills(s) 0 Start Date: 09/23/21 Status: Ordered hydrOXYzine HCl (Atarax) 25 MG tablet Take by mouth. Active hyoscyamine sulfate 0.125 mg oral tablet (20 sources) End: 12-04-2024 take 1 tablet by mouth every four hours as needed hyoscyamine (Anaspaz,Levsin) 0.125 MG tablet Take 0.125 mg by mouth every 4 (four) hours if needed for cramping. 12/04/2024 Discontinued (Therapy completed) ibuprofen 800 mg oral tablet (5 sources) Nonsteroidal Anti-inflammatory Drug Start: 03-11-2024 End: 04-10-2024 take 1 tablet by mouth in the morning, then take 1 tablet by mouth in the evening, then take 1 tablet by mouth at bedtime ibuprofen 800 MG tablet Indications: Acute left ankle pain , Sprain of anterior talofibular ligament of left ankle, initial encounter Take 1 tablet (800 mg) by mouth in the morning and 1 tablet (800 mg) in the evening and 1 tablet (800 mg) before bedtime. 90 tablet 03/11/2024 04/10/2024 Active levETIRAcetam 500 mg oral tablet (4 sources) Start: 11-08-2022 take 1 tablet by mouth in the morning, then take 1 tablet by mouth at bedtime levETIRAcetam (KEPPRA) 500 mg tablet Take 1 tablet (500 mg total) by mouth in the morning and 1 tablet (500 mg total) before bedtime. seizures. 11/08/2022 Active melatonin 10 mg oral capsule (1 source) Start: 09-23-2021 take 1 capsule by mouth once daily at bedtime Melatonin 10 mg oral capsule 10 mg = 1 cap(s), Oral, Once a day (at bedtime), Refills(s) 0 Start Date: 09/23/21 Status: Ordered ondansetron 4 mg disintegrating oral tablet (6 sources) Serotonin-3 Receptor Antagonist Start: 04-22-2024 take 1 tablet by mouth every eight hours as needed for nausea ondansetron ODT (ZOFRAN ODT) 4 mg disintegrating tablet Dissolve 1 tablet (4 mg total) on tongue every 8 (eight) hours as needed for nausea for up to 10 doses. 10 tablet 04/22/2024 Active Start: 09-23-2021 take 1 tablet by aneudy th four times daily ondansetron 4 mg Dis Tab 4 mg = 1 tab(s), Oral, QID, Refills(s) 0 Start Date: 09/23/21 Status: Ordered End: 12-25-2023 ondansetron (Zofran) 4 MG ta blet ondansetron HCl 4 mg tablet 12/25/2023 Discontinued (Therapy completed) pantoprazole 40 mg delayed release oral tablet (2 sources) Proton Pump Inhibitor take 1 tablet by mouth in the morning pantoprazole (PROTONIX) 40 mg EC tablet Indications: gastroesophageal reflux disease Take 1 tablet (40 mg total) by mouth in the morning. Indications: gastroesophageal reflux disease. Active Miralax (1 source) Osmotic Laxative Start: 09-24-19 take 17 g by mouth once daily MiraLax 17 gm, Oral, Daily, Refill(s) 0 Start Date: 09/23/21 Status: Ordered predniSONE 50 mg oral tablet (8 sources) Start: 04-25-19 take 1 tablet by mouth in the morning predniSONE (DELTASONE) 50 mg tablet Take 1 tablet (50 mg total) by mouth in the morning. 5 tablet 06/14/2024 Active Start: 08-24-2023 take 1 tablet by aneudy th three times daily predniSONE (DELTASONE) 50 mg tablet Take 1 tablet (50 mg total) by mouth 3 (three) times a day. 3 tablet 09/05/2023 Active promethazine hydrochloride 12.5 mg oral tablet (20 sources) Phenothiazine Start: 11-08-2022 take 1 tablet by mouth every four hours as needed for nausea and vomiting promethazine (PHENERGAN) 12.5 mg tablet Take 1 tablet (12.5 mg total) by mouth every 4 (four) hours as needed for nausea or vomiting. 30 tablet 11/08/2022 Active promethazine (Ph energan) 25 MG tablet promethazine 25 mg tablet Active sucralfate 1000 mg oral tablet (3 sources) Aluminum Complex Start: 09-23-2021 sucralfate 1 g Tab 1 gm = 1 tab(s), Oral, QIDACHS, Refills(s) 0 Start Date: 09/23/21 Status: Ordered take 1 tablet by mouth at bedtim e sucralfate (CARAFATE) 1 gram tablet Indications: gastroesophageal reflux disease Take 1 tablet (1 g total) by mouth in the morning and 1 tablet (1 g total) at noon and 1 tablet (1 g total) in the evening and 1 tablet (1 g total) before bedtime. Indications: gastroesophageal reflux disease. Active SUMAtriptan 50 mg oral tablet (2 sources) Serotonin-1b and Serotonin-1d Receptor Agonist Start: 04-24-2024 SUMAtriptan (IMITREX) 50 mg tablet Take 1 tablet (50 mg total) by mouth once as needed for migraine. May repeat in 2 hours if unresolved. Do not exceed 200 mg in 24 hours. 9 tablet 04/24/2024 Active temazepam 30 mg oral capsule (20 sources) Benzodiazepine Start: 09-23-2021 take 1 capsule by [...] Refills(s) 0 Start Date: 09/23/21 Status: Ordered topiramate 100 mg oral tablet (4 sources) take 1 tablet by mouth once daily topiramate (TOPAMAX) 100 mg tablet Indications: migraine prevention Take 1 tablet (100 mg total) by mouth nightly Indications: migraine prevention. Active traZODone hydrochloride 50 mg oral tablet (1 source) Serotonin Reuptake Inhibitor Start: 09-23-2021 take 1 tablet by mouth once daily at bedtime traZODONE 50 mg Tab 50 mg = 1 tab(s), Oral, Once a day (at bedtime), Refills(s) 0 Start Date: 09/23/21 Status: Ordered valACYclovir 1000 mg oral tablet (3 sources) Herpesvirus Nucleoside Analog DNA Polymerase Inhibitor, Herpes Simplex Virus Nucleoside Analog DNA Polymerase Inhibitor, Herpes Zoster Virus Nucleoside Analog DNA Polymerase Inhibitor End: 12-25-2023 valACYclovir (Valtrex) 1 g tablet Take by mouth 2 (two) times a day. 12/25/2023 Discontinued (Therapy completed) warfarin sodium 5 mg oral tablet (20 sources) Vitamin K Antagonist Start: 09-23-2021 take 1 tablet by mouth once daily in the evening warfarin (COUMADIN) 5 mg tablet Take 1 tablet (5 mg total) by mouth in the evening. Everyday but Sunday Only taking 4 mg . 04/24/2024 Active take 1 tablet by mouth every wee k warfarin (COUMADIN) 10 mg tablet Take 1 tablet (10 mg total) by mouth once a week. SUNDAY Active Completed/Discontinued Medications Medication Drug Class(es) Dates Sig (Normalized) Sig (Original) potassium chloride 20 meq extended release oral tablet (1 source) Start: 09-23-2021 take 1 tablet by mouth three times daily potassium chloride 20 mEq ER Tab 20 mEq = 1 tab(s), Oral, TID, Refills(s) 0 Start Date: 09/23/21 Status: Ordered traMADol hydrochloride 50 mg oral tablet (13 sources) Opioid Agonist Start: 12-25-2023 End: 02-10-2024 take 1 tablet by mouth every six hours for pain traMADol (Ultram) 50 MG tablet Indications: Acute left ankle pain , Closed nondisplaced fracture of lateral malleolus of left fibula with routine healing Take 1 tablet (50 mg) by mouth every 6 (six) hours if needed for severe pain for up to 4 days 15 tablet 02/06/2024 02/10/2024 Problems Active Problems Problem Classification Problem Date Documented Da te Episodic/Chronic Abdominal hernia (1 source) Diaphragmatic hernia without obstruction or gangrene; Translations: [DIAPH HERNIA W/O OBST/GANGRENE] Onset: 3 Episodic Abdominal pain (4 sources) Generalized abdominal pain; Translations: [Unspecified abdominal pain] Onset: 3 Episodic Acute and unspecified renal failure (1 source) Acute kidney failure, unspecified; Translations: [ACUTE KIDNEY FAILURE UNSPECIFIED] Onset: 3 Episodic Acute cerebrovascular disease (20 sources) Cerebral infarction; Translations: [Cerebral infarction, unspecified] Onset: 3 08-28-2022 Chronic Acute posthemorrhagic anemia (5 sources) Acute posthemorrhagic anemia; Translations: [ACUTE POSTHEMORRHAGIC ANEMIA] Onset: 2 Episodic Administrative/social admission (2 sources) Patient encounter status; Translations: [Other specified counseling] 04-18-2024 Episodic Anxiety disorders (20 sources) Other specified anxiety disorders; Translations: [Anxiety] Onset: 3 08-28-2022 Chronic Asthma (20 sources) Unspecified asthma, uncomplicated; Translations: [Asthma] Onset: 3 08-28-2022 Chronic Biliary tract disease (1 source) Other [...] disease 09-23-2021 Chronic Coagulation and hemorrhagic disorders (20 sources) Protein S deficiency disease; Translations: [Other primary thrombophilia] Onset: 3 09-23-2021 Chronic Coronary atherosclerosis and other heart disease (20 sources) Atherosclerotic heart disease of [place] coronary artery without angina pectoris; Translations: [Coronary atherosclerosis] Onset: 3 09-23-2021 Chronic Deficiency and other anemia (20 sources) Anemia due to blood loss; Translations: [Iron deficiency anemia secondary to blood loss (chronic)] Onset: 3 08-28-2022 Chronic Deficiency and other anemia (1 source) Iron deficiency anemia 09-23-2021 Episodic Deficiency and other anemia (1 source) Iron deficiency anemia, unspecified; Translations: [IRON DEFICIENCY ANEMIA UNSPECIFIED] Onset: 3 Episodic Diverticulosis and diverticulitis (20 sources) Diverticulitis of large intestine without perforation or abscess without bleeding; Translations: [Diverticulitis of large intestine without perforation or abscess with bleeding] Onset: 2 Chronic E Codes: Fall (1 source) Unspecified fall, initial encounter; Translations: [UNSPECIFIED FALL INITIAL ENCOUNTER] Onset: 3 Episodic E Codes: Fall (1 source) Fall Onset: 4 Epilepsy; convulsions (1 source) Seizure disorder 09-23-2021 Episodic Esophageal disorders (20 sources) Gastroesophageal reflux disease; Translations: [Gastro-esophageal reflux disease without esophagitis] Onset: 3 09-23-2021 Chronic Essential hypertension (7 sources) Essential (primary) hypertension; Translations: [Hypertensive disorder] Onset: 2 Chronic Fever of unknown origin (1 source) Fever, unspecified; Translations: [FEVER UNSPECIFIED] Onset: 3 Episodic Fluid and electrolyte disorders (3 sources) Hypo-osmolality and hyponatremia; Translations: [Hypokalemia] Onset: 3 Episodic Genitourinary congenital anomalies (20 sources) Polycystic kidney, unspecified; Translations: [Multiple renal cysts] Onset: 3 08-28-2022 Chronic Headache; including migraine (20 sources) Migraine; Translations: [Migraine, unspecified, not intractable, without status migrainosus] Onset: 8 09-23-2021 Chronic Headache; including migraine (5 sources) Headache; including migraine; Translations: [HEADACHE UNSPECIFIED] Onset: 2 Joint disorders and dislocations; trauma-related (20 sources) Derangement of left knee; Translations: [Unspecified internal derangement of left knee] Onset: 3 08-28-2022 Chronic Miscellaneous mental health disorders (20 sources) Chronic insomnia; Translations: [Psychophysiologic insomnia] Onset: 3 08-28-2022 Chronic Noninfectious gastroenteritis (1 source) Noninfective gastroenteritis and colitis, unspecified; Translations: [NONINFECTIVE GE AND COLITIS UNS] Onset: 3 Episodic Osteoarthritis (20 sources) Unspecified osteoarthritis, unspecified site; Translations: [Osteoarthritis] Onset: 3 08-28-2022 Chronic Osteoporosis (20 sources) Age-related osteoporosis without current pathological fracture; Translations: [Osteoporosis] Onset: 8 09-23-2021 Chronic Other aftercare (1 source) Other intermediate designer (current) drug therapy; Translations: [OTH ETL DEVELOPER CURRENT DRUG THERAPY] Onset: 3 Episodic Other aftercare (1 source) 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; Translations: [ETL DEVELOPER CURRNT USE ANTICOAGULANTS] Onset: 3 Episodic Other aftercare (6 sources) Encounter for therapeutic drug level monitoring; Translations: [ENC THERAPEUTC DRUG LEVL MONITORING] Onset: 3 Episodic Other circulatory disease (1 source) Stricture of artery; Translations: [Stricture of artery] Onset: 4 Chronic Other circulatory disease (4 sources) Subclavian artery stenosis; Translations: [Stricture of artery] Onset: 4 08-23-2023 Chronic Other circulatory disease (2 sources) Personal history of transient ischemic attack (TIA), and cerebral infarction without residual deficits; Translations: [PRSNL HX OF TIA (TIA), AND CEREB INFRC W/O RESID DEFICITS] Onset: 8 Episodic Other circulatory disease (1 source) Orthostatic hypotension 09-23-2021 Episodic Other gastrointestinal disorders (1 source) Irritable [...] History of viral hepatitis 09-23-2021 Episodic Other liver diseases (1 source) Elevated liver enzymes level; Translations: [Abnormal levels of other serum enzymes] 04-09-2024 Episodic Other lower respiratory disease (1 source) [...] [OTHER SPECIFIED MONONEUROPATHIES] Onset: 3 Chronic Other nervous system disorders (20 sources) Brachial plexus disorder; Translations: [Brachial plexus disorders] Onset: 3 08-28-2022 Chronic Other nervous system disorders (20 sources) Chronic pain syndrome; Translations: [Chronic pain syndrome] Onset: 3 08-28-2022 Chronic Other non-traumatic joint disorders (3 sources) Pain in left knee; Translations: [PAIN IN LEFT KNEE] Onset: 3 Episodic Other non-traumatic joint disorders (20 sources) Acute ankle pain; Translations: [Pain in left ankle and joints of left foot] Onset: 4 12-25-2023 Episodic Other nutritional; endocrine; and metabolic disorders (1 source) Hypocalcemia; Translations: [HYPOCALCEMIA] Onset: 3 Chronic Other nutritional; endocrine; and metabolic disorders (20 sources) Hypercalcemia; Translations: [Hypercalcemia] Onset: 3 08-28-2022 Chronic Other skin disorders (4 sources) Localized swelling, mass and lump, trunk; Translations: [LOCALIZD SWELLING MASS AND LUMP TRUNK] Onset: 3 Episodic Pancreatic disorders (4 sources) Other chronic pancreatitis; Translations: [OTHER CHRONIC PANCREATITIS] Onset: 8 Chronic Pathological fracture (1 source) Pathological fracture, right hand, initial encounter for fracture; Translations: [PATH FX RT HAND INITIAL ENCOUNTER] Onset: 3 Episodic Peripheral and visceral atherosclerosis (20 sources) Peripheral vascular disease, unspecified; Translations: [Peripheral vascular disease] Onset: 3 09-23-2021 Chronic Phlebitis; thrombophlebitis and thromboembolism (7 sources) H/O: Deep vein thrombosis; Translations: [Personal history of other venous thrombosis and embolism] Onset: 3 09-23-2021 Episodic Residual codes; unclassified (20 sources) Obstructive sleep apnea syndrome; Translations: [Obstructive sleep apnea (adult) (pediatric)] Onset: 3 09-23-2021 Chronic Residual codes; unclassified (1 source) Acquired absence [...] Spondylosis; intervertebral disc disorders; other back problems (20 sources) Cervical spondylosis; Translations: [Spondylosis without myelopathy or radiculopathy, lumbar region] Onset: 2 09-23-2021 Chronic Sprains and strains (7 sources) Sprain of talofibular ligament of left ankle; Translations: [Sprain of other ligament of left ankle, initial encounter] Onset: 5 03-11-2024 Episodic Unclassified (2 sources) Unknown / UNK(Unknown) [...] 4 Unclassified (1 source) Error Onset: 3 Unclassified (1 source) Nose Bleed Onset: 5 Unclassified (1 source) Left Ankle Pain Onset: 4 Varicose veins of lower extremity (1 source) Varicose veins of lower extremity 09-23-2021 Episodic Past or Other Problems Problem Classification Problem Date Documented Da te Episodic/Chronic Allergic reactions (1 source) Radiographic dye allergy status; Translations: [Radiographic dye allergy status] Onset: 5 Episodic Biliary tract disease (20 sources) Chronic cholecystitis; Translations: [Chronic cholecystitis] Onset: 3 08-28-2022 Episodic Chronic obstructive pulmonary disease and bronchiectasis (1 source) Bronchitis, not specified as acute or chronic; Translations: [Bronchitis, not specified as acute or chronic] Onset: 5 Episodic Conditions associated with dizziness or vertigo (4 sources) Dizziness and giddiness; Translations: [Dizziness] Onset: 2 04-23-2024 Episodic Deficiency and other anemia (4 sources) Anemia, unspecified; Translations: [ANEMIA UNSPECIFIED] Onset: 2 Episodic Diseases of mouth; excluding dental (20 sources) Aphthous ulceration of skin and/or mucous membrane; Translations: [Recurrent oral aphthae] Onset: 3 08-28-2022 Episodic E Codes: Overexertion (1 source) Slipping, tripping and stumbling without falling due to stepping into hole or opening, initial encounter; Translations: [SLIP STUMBL NO FALL STEP HOLE INIT] Onset: 3 Episodic Fracture of lower limb (20 sources) Closed fracture of lateral malleolus; Translations: [Nondisplaced fracture of lateral malleolus of left fibula, initial encounter for closed fracture] Onset: 4 12-25-2023 Episodic Gastrointestinal hemorrhage (1 source) Gastrointestinal hemorrhage, unspecified; Translations: [GASTROINTESTINAL HEMORRHAGE UNS] Onset: 2 Episodic Genitourinary symptoms and ill-defined conditions (6 sources) Personal history of urinary (tract) infections; Translations: [Disorder of urinary system, unspecified] Onset: 3 11-17-2022 Episodic Headache; including migraine (4 sources) Headache; Translations: [Headache] Onset: 3 03-01-2023 Episodic Mood disorders (4 sources) Mood disorders Onset: 3 03-01-2023 Nausea and vomiting (5 sources) Nausea with vomiting, unspecified; Translations: [Vomiting, unspecified] Onset: 2 Episodic Nonspecific chest pain (5 sources) Other chest pain; Translations: [Chest pain, unspecified] Onset: 2 Episodic Other aftercare (4 sources) Long-term current use of anticoagulant; Translations: [correction (current) use of anticoagulants] Onset: 3 03-03-2023 Episodic Other circulatory disease (1 source) Hypotension, unspecified; Translations: [HYPOTENSION UNSPECIFIED] Onset: 2 Episodic Other connective tissue disease (4 sources) Fibromyalgia; Translations: [FIBROMYALGIA] Onset: 8 Episodic Other connective tissue disease (3 sources) Other enthesopathies, not elsewhere classified; Translations: [OTHER ENTHESOPATHIES, NOT ELSEWHERE CLASSIFIED] Onset: 8 Episodic Other connective tissue disease (1 source) Other muscle spasm; Translations: [OTHER MUSCLE SPASM] Onset: 3 Episodic Other connective tissue disease (1 source) Arthrodesis status; Translations: [ARTHRODESIS STATUS] Onset: 2 Episodic Other connective tissue disease (3 sources) Pain in right hand; Translations: [Pain in right hand] Onset: 4 Episodic Other connective tissue disease (3 sources) Pain in left hand; Translations: [Pain in left hand] Onset: 4 Episodic Other connective tissue disease (20 sources) Fibromyalgia; Translations: [Fibromyalgia] Onset: 3 08-28-2022 Episodic Other connective tissue disease (5 sources) Pain of bilateral hands; Translations: [Pain in right hand] Onset: 4 09-13-2023 Episodic Other diseases of veins and lymphatics (20 sources) Disorder of vein; Translations: [Disorder of vein, unspecified] Onset: 4 08-28-2022 Episodic Other female genital disorders (4 sources) Stenosis of cervix; Translations: [Stricture and stenosis of cervix uteri] Onset: 3 11-03-2022 Episodic Other gastrointestinal disorders (20 sources) Constipation; Translations: [Constipation, unspecified] Onset: 3 08-28-2022 Episodic Other injuries and conditions due to external causes (4 sources) Unspecified injury of right ankle, initial encounter; Translations: [UNSPECIFIED INJURY RT ANKLE INITIAL] Onset: 3 Episodic Other injuries and conditions due to external causes (1 source) History of falling; Translations: [HISTORY OF FALLING] Onset: 2 Episodic Other injuries and conditions due to external causes (1 source) Unspecified injury of head, initial encounter; Translations: [Unspecified injury of head, initial encounter] Onset: 5 Episodic Other liver diseases (2 sources) Abnormal levels of other serum enzymes; Translations: [Abnormal levels of other serum enzymes] Onset: 5 Episodic Other lower respiratory disease (1 source) Hyperventilation; Translations: [HYPERVENTILATION] Onset: 3 Episodic Other nervous system disorders (20 sources) Abnormal gait; Translations: [Unspecified abnormalities of gait and mobility] Onset: 3 08-28-2022 Episodic Other non-traumatic joint disorders (4 sources) Other instability, left wrist; Translations: [OTHER INSTABILITY, LEFT WRIST] Onset: 8 Episodic Other non-traumatic joint disorders (4 sources) Pain in left hip; Translations: [PAIN IN LEFT HIP] Onset: 2 Episodic Other non-traumatic joint disorders (20 sources) Instability of joint; Translations: [Other instability, unspecified joint] Onset: 8 08-28-2022 Episodic Other non-traumatic joint disorders (1 source) Ankle pain Onset: 4 Episodic Other screening for suspected conditions (not mental disorders or infectious disease) (4 sources) Other specified abnormal findings of blood chemistry; Translations: [Deviation of international normalized ratio from target range] Onset: 3 04-23-2024 Episodic Pneumonia (except that caused by tuberculosis or sexually transmitted disease) (20 sources) Pneumonia due to methicillin susceptible Staphylococcus aureus; Translations: [Pneumonia due to Methicillin susceptible Staphylococcus aureus] Onset: 8 08-28-2022 Episodic Residual codes; unclassified (20 sources) Insomnia; Translations: [Insomnia, unspecified] Onset: 3 09-23-2021 Episodic Residual codes; unclassified (1 source) Personal [...] edema; Translations: [LOCALIZED EDEMA] Onset: 2 Episodic Residual codes; unclassified (20 sources) Altered mental status; Translations: [Altered mental status, unspecified] Onset: 8 08-28-2022 Episodic Residual codes; unclassified (20 sources) Edema of lower extremity; Translations: [Localized edema] Onset: 3 08-28-2022 Episodic Spondylosis; intervertebral disc disorders; other back problems (20 sources) Cervical radiculopathy; Translations: [Lumbar radiculopathy] Onset: 2 09-23-2021 Episodic Superficial injury; contusion (7 sources) Contusion of left hip, initial encounter; Translations: [Contusion of left ankle] Onset: 3 02-06-2024 Episodic Unclassified (1 source) LOW BACK PAIN, UNSPECIFIED; Translations: [LOW BACK PAIN, UNSPECIFIED] Onset: 2 Unclassified (2 sources) Sprain of talofibular ligament of right ankle 12-25-2024 Results Test Name Value Interpretation Reference Range Facility XR Ankle - right 3 [facility] 1 Imaging Result: 12/25/2024: AP, LAT and oblique of the right ankle demonstrate no acute fracture or dislocation. There is decreased talar joint space but no obvious osteophyte formation. Impression: no acute findings of right ankle. [facility] Radiology Study observation (narrative) [facility] XR ANKLE RT MIN 3 VWSon 09- XR ANKLE RT MIN 3 VWS XR ANKLE RT MIN 3 VWS XR ANKLE RT MIN 3 VWS Clinical history:fall pain Comparison: None. Impression: No ankle joint effusion. No fracture or dislocation. Alignment and mineralization appear to be within normal limits. No definitive acute osseous abnormality. Finalized by Alessia Bah MD on 12/02/2024 2:02 PM Normal [facility] XR FOOT RT MIN 3 VWSon 12-02 XR FOOT RT MIN 3 VWS XR FOOT RT MIN 3 VWS XR FOOT RT MIN 3 VWS INDICATION: fall, pain COMPARISON: None FINDINGS: No acute fracture or dislocation. Dystrophic calcification adjacent to the lateral malleolar tip; dedicated ankle series reported separately. Degenerative changes of the midfoot and forefoot with joint space loss and subchondral sclerosis. IMPRESSION: No definitive acute osseous abnormality. Finalized by Alessia Mcguire MD on 12/02/2024 2:03 PM Normal [facility] CT CHEST WO CONTon 5 CT CHEST WO CONT CT CHEST WO CONT History: Midsternal and left chest wall pain after fall. Shortness of breath Exam/Technique: Noncontrast chest CT with multiplanar reconstructions. Computer aided detection for pulmonary nodules was performed utilizing [email or web address].solutions software. Comparison: Chest CTA from 09/06/2023 Findings: No active pulmonary or pleural abnormalities are displayed. Mild coronary artery calcification demonstrated. With evaluation compromised by lack of contrast no gross hilar or mediastinal mass lesions or other additional mediastinal abnormalities are demonstrated. No recent fractures are displayed on bone windows from this study. Old healed fractures of the left sixth and seventh ribs are demonstrated. No other abnormalities are displayed in the chest wall. The portions of upper abdominal organs included display no significant abnormalities on these noncontrast images. Status post cholecystectomy. IMPRESSION: * No acute abnormalities demonstrated. All CT scans at this facility use dose modulation, iterative reconstruction, and/or weight based dosing when appropriate to reduce radiation dose to as low as reasonably achievable. Finalized by Moi Bedoya MD on 06/14/2024 12:06 PM Normal [facility] XR TOE LT GREAT TOE MIN 2 VW Son 06-14-2024 XR TOE LT GREAT TOE MIN 2 VWS XR TOE LT GREAT TOE MIN 2 VWS XR TOE LT GREAT TOE MIN 2 VWS Clinical history:injury acute foot pain. Toe pain. Comparison: None. Findings: Oblique mildly displaced fracture of the base of the first proximal phalanx. Bipartite medial sesamoid. Impression: Oblique mildly displaced fracture of the base of the first proximal phalanx with articular extension. Finalized by Alessia Bah MD on 06/14/2024 11:53 AM Normal [facility] CBC AND AUTO DIFFon 04-24-19 25 ABSOLUTE BASOPHIL 0.1 X10E9/L Normal 0.0-0.2 [facility] Comment on above: Performed By: #### C BCA, 1988-5, 28204-4, C34, 15412-0, ENAP, 00747-9, DEO, B2G #### [facility] ([id number]) [address], [address] [place] [address] #### NAIFA #### [facility] ([id number]) [address] [place] [address] ABSOLUTE NEUTROPHIL 2.5 X10E9/L Normal 1.5-6.6 [facility] Comment on above: Performed By: #### C BCA, 1987-07, , C34, 36033-3, ENAP, 20094-1, DEO, B2G #### [facility] ([id number]) [address], [address] [place] [address] #### NAIFA #### [facility] ([id number]) [address] [place] [address] Basophils/100 WBC (Bld) 1.1 % Normal [facility] Comment on above: Performed By: #### C BCA, 1987-07, , C34, 15592-6, ENAP, 32328-6, DEO, B2G #### [facility] ([id number]) [address], [address] [place] [address] #### NAIFA #### [facility] ([id number]) [address] [place] [address] Eosinophils (Bld) [#/Vol] 0.3 10*3/uL Normal 0.0-0.4 [facility] Comment on above: Performed By: #### C BCA, 1987-07, , C34, 93366-3, ENAP, 70343-1, DEO, B2G #### [facility] ([id number]) [address], [address] [place] [address] #### NAIFA #### [facility] ([id number]) [address] [place] [address]92 Eosinophils/100 WBC (Bld) 6.1 % Normal [facility] Comment on above: Performed By: #### C BCA, 1987-07, , C34, 84557-7, ENAP, 52007-0, DEO, B2G #### [facility] ([id number]) [address], [address] [place] [address] #### NAIFA #### [facility] ([id number]) [address] [place] [address] Erythrocyte distribution width (RBC) [Ratio] 14.3 % Normal 11.5-15.0 [facility] Comment on above: Performed By: #### C BCA, 1987-07, 98039-3, C34, 64213-6, ENAP, 28197-8, DEO, B2G #### [facility] ([id number]) [address], [address] [place] [address] #### NAIFA #### [facility] ([id number]) [address] [place] [address] Hematocrit (Bld) [Volume fraction] 33.9 % Low 35-47 [facility] Comment on above: Performed By: #### C ERMELINDA, 1987-07, , C34, 87223-0, ENAP, 48613-4, DEO, B2G #### [facility] ([id number]) [address], [address] [place] [address] #### NAIFA #### [facility] ([id number]) [address] [place] [address] Hemoglobin (Bld) [Mass/Vol] 11.2 g/dL Low 11.7-15.5 [facility] Comment on above: Performed By: #### C ERMELINDA, 1987-07, 08043-4, C34, 36666-2, ENAP, 72835-2, DEO, B2G #### [facility] ([id number]) [address], [address] [place] [address] #### NAIFA #### [facility] ([id number]) [address] [place] [address] Lymphocytes (Bld) [#/Vol] 1.6 10*3/uL Normal 1.0-3.5 [facility] Comment on above: Performed By: #### C BCA, 1987-07, 81896-3, C34, 53607-7, ENAP, 30091-8, DEO, B2G #### [facility] ([id number]) [address], [address] [place] [address] #### NAIFA #### [facility] ([id number]) [address] [place] [address] Lymphocytes/100 WBC (Bld) 30.8 % Normal [facility] Comment on above: Performed By: #### C ERMELINDA, 1987-07, 19716-3, C34, 27945-7, ENAP, 00156-0, DEO, B2G #### [facility] ([id number]) [address], [address] [place] [address] #### NAIFA #### [facility] ([id number]) [address] [place] [address]285 MCH (RBC) [Entitic mass] 31.9 pg Normal 27-34 [facility] Comment on above: Performed By: #### C ERMELINDA, 1987-07, 33937-8, C34, 35950-1, ENAP, 97295-1, DEO, B2G #### [facility] ([id number]) [address], [address] [place] [address] #### NAIFA #### [facility] ([id number]) [address] [place] [address]16 MCHC (RBC) [Mass/Vol] 33.1 g/dL Normal 32-36 [facility] Comment on above: Performed By: #### C ERMELINDA, 1987-07, 80853-5, C34, 92949-3, ENAP, 29634-4, DOE, B2G #### [facility] ([id number]) [address], [address] [place] [address] #### NAIFA #### [facility] ([id number]) [address] [place] [address]4532 MCV (RBC) [Entitic vol] 96 fL Normal 80-100 [facility] Comment on above: Performed By: #### C ERMELINDA, 1987-07, 81188-5, C34, 18906-9, ENAP, 78861-6, DEO, B2G #### [facility] ([id number]) [address], [address] [place] [address] #### NAIFA #### [facility] ([id number]) [address] [place] [address] Monocytes (Bld) [#/Vol] 0.7 10*3/uL Normal 0-0.9 [facility] Comment on above: Performed By: #### C ERMELINDA, 1987-07, 51166-6, C34, 37655-9, ENAP, 93909-2, DEO, B2G #### [facility] ([id number]) [address], [address] [place] [address] #### NAIFA #### [facility] ([id number]) [address] [place] [address]87 Monocytes/100 WBC (Bld) 14.2 % Normal [facility] Comment on above: Performed By: #### C ERMELINDA, 1987-07, 71571-0, C34, 77207-7, ENAP, 69114-4, DEO, B2G #### [facility] ([id number]) [address], [address] [place] [address] #### NAIFA #### [facility] ([id number]) [address] [place] [address] Neutrophils/100 WBC (Bld) 47.8 % Normal [facility] Comment on above: Performed By: #### C BCA, 1987-07, 84375-2, C34, 24870-4, ENAP, 80197-9, DEO, B2G #### [facility] ([id number]) [address], [address] [place] [address] #### NAIFA #### [facility] ([id number]) [address] [place] [address] 11872 Platelet mean volume (Bld) [Entitic vol] 8.9 fL Normal 7-12 [facility] Comment on above: Performed By: #### C ERMELINDA, 1987-07, 65160-0, C34, 56696-6, ENAP, 17215-1, DEO, B2G #### [facility] ([id number]) [address], [address] [address] #### NAIFA #### [facility] ([id number]) [address] [place] [address]102 Platelets (Bld) [#/Vol] 261 10*3/uL Normal 150-450 [facility] Comment on above: Performed By: #### C ERMELINDA, 1987-07, 02911-8, C34, 22138-9, ENAP, 18954-6, DEO, B2G #### [facility] ([id number]) [address], [facility] [address] [place] [address] #### NAIFA #### [facility] ([id number]) [address] [place] [address] 18173 RBC COUNT 3.52 X10E12/L Low 3.80-5.20 [facility] Comment on above: Performed By: #### C ERMELINDA, 1987-07, 04032-6, C34, 62279-9, ENAP, 33659-6, DEO, B2G #### [facility] ([id number]) [address], [address] [place] [address] #### NAIFA #### [facility] ([id number]) [address] [place] [address] 16080 WBC (Bld) [#/Vol] 5.3 10*3/uL Normal 4.0-11.0 [facility] Comment on above: Performed By: #### C BCA, 1987-07, 46407-0, C34, 65497-7, ENAP, 28141-8, DEO, B2G #### [facility] ([id number]) [address], [address] [place] [address] #### NAIFA #### [facility] ([id number]) [address] [place] [address] COMPREHENSIVE METABOLIC PANE David 04-24-2024 Albumin [Mass/Vol] 3.2 g/dL Normal 3.2-5.3 [facility] Comment on above: Performed By: #### C BCA, 1987-07, 10456-2, C34, 54645-0, ENAP, 46877-9, DEO, B2G #### [facility] ([id number]) [address], [address] [place] [address] #### NAIFA #### [facility] ([id number]) [address] [place] [address] 88751 ALP [Catalytic activity/Vol] 105 U/L Normal 39-130 [facility] Comment on above: Performed By: #### C BCA, 1987-07, 30560-3, C34, 54622-0, ENAP, 16889-2, DEO, B2G #### [facility] ([id number]) [address], [address] [place] [address] #### NAIFA #### [facility] ([id number]) [address] [place] [address] 69118 ALT [Catalytic activity/Vol] 16 U/L Normal 0-31 [facility] Comment on above: Performed By: #### C BCA, 1987-07, 87956-9, C34, 31265-4, ENAP, 03398-6, DEO, B2G #### [facility] ([id number]) [address], [address] [place] [address] #### NAIFA #### [facility] ([id number]) [address] [place] [address] 11580 Anion gap [Moles/Vol] 7 mmol/L Normal 5-15 [facility] Comment on above: Performed By: #### C BCA, 1987-07, 37062-6, C34, 58974-5, ENAP, 06817-6, DEO, B2G #### [facility] ([id number]) [address], [address] [place] [address] #### NAIFA #### [facility] ([id number]) [address] [place] [address] 52552 AST [Catalytic activity/Vol] 22 U/L Normal 0-41 [facility] Comment on above: Performed By: #### C BCA, 1987-07, 89118-3, C34, 39603-0, ENAP, 34196-2, DEO, B2G #### [facility] ([id number]) [address], [address] [place] [address] #### NAIFA #### [facility] ([id number]) [address] [place] [address] 11791 Bilirubin [Mass/Vol] 0.2 mg/dL Low 0.3-1.2 [facility] Comment on above: Performed By: #### C BCA, 1987-07, 78342-0, C34, 21403-0, ENAP, 92739-2, DEO, B2G #### [facility] ([id number]) [address], [address] [place] [address] #### NAIFA #### [facility] [facility] ([id number]) [address] [place] [address] 03065 Calcium [Mass/Vol] 8.3 mg/dL Low 8.5-10.5 [facility] Comment on above: Performed By: #### C BCA, 1987-07, 57233-3, C34, 10516-3, ENAP, 85800-4, DEO, B2G #### [facility] ([id number]) [address], [address] [place] [address] #### NAIFA #### [facility] ([id number]) [address] [place] [address] 33954 Chloride [Moles/Vol] 106 mmol/L Normal 98-109 [facility] Comment on above: Performed By: #### C BCA, 1987-07, 03370-7, C34, 58783-6, ENAP, 34396-4, DEO, B2G #### [facility] ([id number]) [address], [address] [place] [address] #### NAIFA #### [facility] ([id number]) [address] [place] [address] 25162 CO2 [Moles/Vol] 22 mmol/L Normal 22-32 [facility] Comment on above: Performed By: #### C BCA, 1987-07, 60211-0, C34, 51197-3, ENAP, 24980-1, DEO, B2G #### [facility] ([id number]) [address], [address] [place] [address] #### NAIFA #### [facility] ([id number]) [address] [place] [address] 55352 Creatinine [Mass/Vol] 0.75 mg/dL Normal 0.40-1.00 [facility] Comment on above: Result Comment: METH OD TRACEABLE TO IDMS STANDARD Performed By: #### C ERMELINDA, 1987-07, 36141-6, C34, 74862-2, ENAP, 29051-5, DEO, B2G #### [facility] ([id number]) [address], [address] [place] [address] #### NAIFA #### [facility] ([id number]) [address] [place] [address] 12653 GFR/1.73 sq M.predicted among non-blacks MDRD (S/P/Bld) [Vol rate/Area] 90 mL/min/{1.73_m2} Normal >59 [facility] Comment on above: Result Comment: Reported eGFR is based on the CKD-EPI 2020 equation that does not use a race coefficient. Performed By: #### C ERMELINDA, 1987-07, 40852-6, C34, 93150-1, ENAP, 18482-6, DEO, B2G #### [facility] ([id number]) [address] [place] [address] #### NACLARITZAA #### [facility] ([id number]) [address] [place] [address] 90218 Glucose [Mass/Vol] 93 mg/dL Normal 65-99 [facility] Comment on above: Performed By: #### C ERMELINDA, 1987-07, 64341-9, C34, 81778-7, ENAP, 39450-7, DEO, B2G #### [facility] ([id number]) [address], [address] [place] [address] #### NAIFA #### [facility] ([id number]) [address] [place] [address] 05281 Potassium [Moles/Vol] 3.9 mmol/L Normal 3.5-5.0 [facility] Comment on above: Performed By: #### C BCA, 1987-07, 93262-9, C34, 79290-9, ENAP, 34035-2, DEO, B2G #### [facility] ([id number]) [address], [address] [place] [address] #### NAIFA #### [facility] ([id number]) [address] [place] [address] 77317 Protein [Mass/Vol] 6.0 g/dL Normal 6.0-8.0 [facility] Comment on above: Performed By: #### C BCA, 1987-07, 27160-6, C34, 88967-1, ENAP, 14113-1, DEO, B2G #### [facility] ([id number]) [address], [address] [place] [address] #### NAIFA #### [facility] ([id number]) [address] [place] [address] 09417 Sodium [Moles/Vol] 135 mmol/L Normal 134-146 [facility] Comment on above: Performed By: #### C BCA, 1987-07, 92579-0, C34, 61796-3, ENAP, 86654-7, DEO, B2G #### [facility] ([id number]) [address], [address] [place] [address] #### NAIFA #### [facility] ([id number]) [address] [place] [address] 41883 Urea nitrogen [Mass/Vol] 17 mg/dL Normal 5-27 [facility] Comment on above: Performed By: #### C BCA, 1987-07, 78251-3, C34, 43872-2, ENAP, 72057-8, DEO, B2G #### [facility] ([id number]) [address], [address] [place] [address] #### NAIFA #### [facility] ([id number]) [address] [place] [address] 53830 MAGNESIUMon 04-24-2024 Magnesium [Mass/Vol] 1.9 mg/dL Normal 1.8-2.6 [facility] Comment on above: Performed By: #### C BCA, 1987-07, 41352-8, C34, 27482-9, ENAP, 62166-4, DEO, B2G #### [facility] ([id number]) [address], [address] [place] [address] #### NACLARITZAA #### [facility] ([id number]) [address] [place] [address] 51640 PROTIME AND INRon 04-24-2024 INR Coag (PPP) [Relative time] 1.1 {INR} Normal 0.8-1.1 [facility] Comment on above: Performed By: #### C ERMELINDA, 1987-07, 29185-7, C34, 29193-0, ENAP, 80413-7, DEO, B2G #### [facility] ([id number]) [address], [address] [place] [address] #### NAHASMUKH #### [facility] ([id number]) [address] [place] [address] 56386 PT Coag (PPP) [Time] 13.3 s High 9.8-13.2 [facility] Comment on above: Result Comment: NEW REFERENCE RANGE Performed By: #### C BCA, 1987-07, 15320-9, C34, 12384-1, ENAP, 65605-8, DEO, B2G #### [facility] ([id number]) [address], [address] [place] [address] #### NAIFA #### [facility] ([id number]) [address] [place] [address] 72569 CBC AND AUTO DIFFon 04-23-19 ABSOLUTE BASOPHIL 0.1 X10E9/L Normal 0.0-0.2 [facility] Comment on above: Performed By: #### C ERMELINDA, 1987-07, , C34, 34552-3, ENAP, 23709-6, DEO, B2G #### [facility] ([id number]) [address], [address] [place] [address] #### NAIFA #### [facility] ([id number]) [address] [place] [address] 31455 ABSOLUTE NEUTROPHIL 2.5 X10E9/L Normal 1.5-6.6 [facility] Comment on above: Performed By: #### C ERMELINDA, 1987-07, , C34, 17154-0, ENAP, 74309-5, DEO, B2G #### [facility] ([id number]) [address], [address] [place] [address] #### NAIFA #### [facility] ([id number]) [address] [place] [address] 95380 Basophils/100 WBC (Bld) 1.2 % Normal [facility] Comment on above: Performed By: #### C ERMELINDA, 1987-07, , C34, 51044-6, ENAP, 72089-2, DEO, B2G #### [facility] ([id number]) [address], [address] [place] [address] #### NAIFA #### [facility] ([id number]) [address] [place] [address] 43947 Eosinophils (Bld) [#/Vol] 0.2 10*3/uL Normal 0.0-0.4 [facility] Comment on above: Performed By: #### Tracy WADSWORTH, 1987-07, 04085-3, C34, 44695-6, ENAP, 29163-5, DEO, B2G #### [facility] ([id number]) [address], [address] [place] [address] #### NAIFA #### [facility] ([id number]) [address] [place] [address] 66165 Eosinophils/100 WBC (Bld) 3.5 % Normal [facility] Comment on above: Performed By: #### C BCA, 1987-07, , C34, 68622-3, ENAP, 87752-4, DEO, B2G #### [facility] ([id number]) [address], [address] [place] [address] #### NAIFA #### [facility] ([id number]) [address] [place] [address] 15174 Erythrocyte distribution width (RBC) [Ratio] 14.2 % Normal 11.5-15.0 [facility] Comment on above: Performed By: #### C BCA, 1987-07, , C34, 69930-1, ENAP, 80856-4, DEO, B2G #### [facility] ([id number]) [address], [address] [place] [address] #### NAIFA #### [facility] ([id number]) [address] [place] [address] 57814 Hematocrit (Bld) [Volume fraction] 36.7 % Normal 35-47 [facility] Comment on above: Performed By: #### C BCA, 1987-07, 72664-0, C34, 33655-2, ENAP, 31591-1, DEO, B2G #### [facility] ([id number]) [address], [address] [place] [address] #### NAIFA #### [facility] ([id number]) [address] [place] [address] Hemoglobin (Bld) [Mass/Vol] 12.4 g/dL Normal 11.7-15.5 [facility] Comment on above: Performed By: #### C ERMELINDA, 1987-07, 53935-1, C34, 41419-0, ENAP, 91785-0, DEO, B2G #### [facility] ([id number]) [address], [address] [place] [address] #### NAIFA #### [facility] ([id number]) [address] [place] [address] 13504 Lymphocytes (Bld) [#/Vol] 2.1 10*3/uL Normal 1.0-3.5 [facility] Comment on above: Performed By: #### C ERMELINDA, 1987-07, , C34, 78750-2, ENAP, 13393-7, DEO, B2G #### [facility] ([id number]) [address] [facility], [address] [place] [address] #### NAIFA #### [facility] ([id number]) [address] [place] [address] 93096 Lymphocytes/100 WBC (Bld) 37.6 % Normal [facility] Comment on above: Performed By: #### C ERMELINDA, 1987-07, 54623-8, C34, 10102-1, ENAP, 94523-0, DEO, B2G #### [facility] ([id number]) [address], [address] [place] [address] #### NAIFA #### [facility] ([id number]) [address] [place] [address] 44965 MCH (RBC) [Entitic mass] 31.7 pg Normal 27-34 [facility] Comment on above: Performed By: #### Tracy WADSWORTH, 1987-07, 47130-9, C34, 07361-1, ENAP, 45239-6, DEO, B2G #### [facility] ([id number]) [address], [address] [place] [address] #### NAHASMUKH #### [facility] ([id number]) [address] [place] [address] 03666 MCHC (RBC) [Mass/Vol] 33.6 g/dL Normal 32-36 [facility] Comment on above: Performed By: #### C BCA, 1987-07, 81748-6, C34, 00881-0, ENAP, 84560-6, DEO, B2G #### [facility] ([id number]) [address], [address] [place] [address] #### NAIFRuiz #### [facility] ([id number]) [address] [place] [address] 85656 MCV (RBC) [Entitic vol] 94 fL Normal 80-100 [facility] Comment on above: Performed By: #### C BCA, 1987-07, , C34, 76513-8, ENAP, 43265-9, DEO, B2G #### [facility] ([id number]) [address], [address] [place] [address] #### NAIFA #### [facility] ([id number]) [address] [place] [address] 49372 Monocytes (Bld) [#/Vol] 0.7 10*3/uL Normal 0-0.9 [facility] Comment on above: Performed By: #### C BCA, 1987-07, 40178-1, C34, 56743-5, ENAP, 21963-6, DEO, B2G #### [facility] ([id number]) [address], [address] [place] [address] #### NAIFA #### [facility] ([id number]) [address] [place] [address] 38744 Monocytes/100 WBC (Bld) 13.0 % Normal [facility] Comment on above: Performed By: #### C ERMELINDA, 1987-07, 28209-0, C34, 46348-5, ENAP, 18680-5, DEO, B2G #### [facility] ([id number]) [address], [address] [place] [address] #### NAIFA #### [facility] ([id number]) [address] [place] [address] 71980 Neutrophils/100 WBC (Bld) 44.7 % Normal [facility] Comment on above: Performed By: #### C ERMELINDA, 1987-07, 94545-7, C34, 63421-9, ENAP, 51230-5, DEO, B2G #### [facility] ([id number]) [address] [facility], [address] [place] [address] #### NAIFA #### [facility] ([id number]) [address] [place] [address] 39502 Platelet mean volume (Bld) [Entitic vol] 9.0 fL Normal 7-12 [facility] Comment on above: Performed By: #### C ERMELINDA, 1987-07, , C34, 22013-0, ENAP, 27527-1, DEO, B2G #### [facility] ([id number]) [address], [address] [place] [address] #### NAIFA #### [facility] ([id number]) [address] [place] [address] 69665 Platelets (Bld) [#/Vol] 291 10*3/uL Normal 150-450 [facility] Comment on above: Performed By: #### Tracy WADSWORTH, 1987-07, 56888-0, C34, 96290-0, ENAP, 39973-2, DEO, B2G #### [facility] ([id number]) [address], [address] [place] [address] #### NAIFA #### [facility] ([id number]) [address] [place] [address] 37399 RBC COUNT 3.90 X10E12/L Normal 3.80-5.20 [facility] Comment on above: Performed By: #### C BCA, 1987-07, 65263-6, C34, 85550-2, ENAP, 90644-1, DEO, B2G #### [facility] ([id number]) [address] [place] [address] #### NAIFA #### [facility] ([id number]) [address] [place] [address] 99703 WBC (Bld) [#/Vol] 5.6 10*3/uL Normal 4.0-11.0 [facility] Comment on above: Performed By: #### C BCA, 1987-07, 30226-3, C34, 88742-9, ENAP, 96972-0, DEO, B2G #### [facility] ([id number]) [address] [place] [address] #### NAIFA #### [facility] ([id number]) [address] [place] [address] 97945 COMPREHENSIVE METABOLIC PANE David 04-23-2024 Albumin [Mass/Vol] 3.9 g/dL Normal 3.2-5.3 [facility] Comment on above: Performed By: #### C BCA, 1987-07, 20595-2, C34, 22231-9, ENAP, 97942-3, DEO, B2G #### [facility] ([id number]) [address], [address] [place] [address] #### NAIFA #### [facility] ([id number]) [address] [place] [address] 75586 ALP [Catalytic activity/Vol] 123 U/L Normal 39-130 [facility] Comment on above: Performed By: #### C BCA, 1987-07, 55951-8, C34, 49453-7, ENAP, 08099-0, DEO, B2G #### [facility] ([id number]) [address] [facility], [address] [place] [address] #### NAIFA #### [facility] ([id number]) [address] [place] [address] 75541 ALT [Catalytic activity/Vol] 19 U/L Normal 0-31 [facility] Comment on above: Performed By: #### C BCA, 1987-07, 18242-9, C34, 10589-6, ENAP, 28715-9, DEO, B2G #### [facility] ([id number]) [address] [facility], [address] [place] [address] #### NAIFA #### [facility] ([id number]) [address] [place] [address] 80677 Anion gap [Moles/Vol] 10 mmol/L Normal 5-15 [facility] Comment on above: Performed By: #### C BCA, 1987-07, 06251-8, C34, 69870-0, ENAP, 46127-2, DEO, B2G #### [facility] ([id number]) [address] [facility], [address] [place] [address] #### NAIFA #### [facility] ([id number]) [address] [place] [address] 20614 AST [Catalytic activity/Vol] 31 U/L Normal 0-41 [facility] Comment on above: Performed By: #### C BCA, 1987-07, 69873-2, C34, 56549-7, ENAP, 78611-2, DEO, B2G #### [facility] ([id number]) [address], [address] [place] [address] #### NAIFA #### [facility] ([id number]) [address] [place] [address] 87878 Bilirubin [Mass/Vol] 0.7 mg/dL Normal 0.3-1.2 [facility] Comment on above: Performed By: #### C BCA, 1987-07, 29919-8, C34, 33604-6, ENAP, 50187-0, DEO, B2G #### [facility] ([id number]) [address], [address] [place] [address] #### NAIFA #### [facility] ([id number]) [address] [place] [address] 57152 Calcium [Mass/Vol] 8.7 mg/dL Normal 8.5-10.5 [facility] Comment on above: Performed By: #### C BCA, 1987-07, 30427-9, C34, 10478-4, ENAP, 52263-6, DEO, B2G #### [facility] ([id number]) [address], [address] [place] [address] #### NAIFA #### [facility] ([id number]) [address] [place] [address] 51732 Chloride [Moles/Vol] 104 mmol/L Normal 98-109 [facility] Comment on above: Performed By: #### C BCA, 1987-07, 33664-8, C34, 84213-5, ENAP, 58247-8, DEO, B2G #### [facility] ([id number]) [address], [address] [place] [address] #### NAIFA #### [facility] ([id number]) [address] [place] [address] 06798 CO2 [Moles/Vol] 23 mmol/L Normal 22-32 [facility] Comment on above: Performed By: #### C BCA, 1987-07, 42051-0, C34, 10228-7, ENAP, 41060-0, DEO, B2G #### [facility] ([id number]) [address], [address] [address] #### NAIFA #### [facility] ([id number]) [address] [place] [address] 33435 Creatinine [Mass/Vol] 1.08 mg/dL High 0.40-1.00 [facility] Comment on above: Result Comment: METH OD TRACEABLE TO IDMS STANDARD Performed By: #### C BCA, 1987-07, 91328-7, C34, 45491-9, ENAP, 30441-0, DEO, B2G #### [facility] ([id number]) [address] [address] #### NAIFA #### [facility] ([id number]) [address] [place] [address] 86273 GFR/1.73 sq M.predicted among non-blacks MDRD (S/P/Bld) [Vol rate/Area] 58 mL/min/{1.73_m2} Low >59 [facility] Comment on above: Result Comment: Reported eGFR is based on the CKD-EPI 2020 equation that does not use a race coefficient. Performed By: #### C BCA, 1987-07, 05715-1, C34, 01695-9, ENAP, 08518-8, DEO, B2G #### [facility] ([id number]) [address], [address] [address] #### NAIFA #### [facility] ([id number]) [address] [place] [address] 93816 Glucose [Mass/Vol] 91 mg/dL Normal 65-99 [facility] Comment on above: Performed By: #### C BCA, 1987-07, 72040-7, C34, 34391-3, ENAP, 21959-2, DEO, B2G #### [facility] ([id number]) [address] [facility], [address] [place] [address] #### NAIFA #### [facility] ([id number]) [address] [place] [address] 62634 Potassium [Moles/Vol] 4.4 mmol/L Normal 3.5-5.0 [facility] Comment on above: Performed By: #### C BCA, 1987-07, 66007-3, C34, 61732-9, ENAP, 93992-1, DEO, B2G #### [facility] ([id number]) [address] [facility], [address] [place] [address] #### NAIFA #### [facility] ([id number]) [address] [place] [address] 54473 Protein [Mass/Vol] 6.8 g/dL Normal 6.0-8.0 [facility] Comment on above: Performed By: #### C BCA, 1987-07, 74203-1, C34, 54679-6, ENAP, 34651-5, DEO, B2G #### [facility] ([id number]) [address] [facility], [address] [place] [address] #### NAIFA #### [facility] ([id number]) [address] [place] [address] 38976 Sodium [Moles/Vol] 137 mmol/L Normal 134-146 [facility] Comment on above: Performed By: #### C BCA, 1987-07, 92653-5, C34, 41505-4, ENAP, 36343-1, DEO, B2G #### [facility] ([id number]) [address], [address] [place] [address] #### NAIFA #### [facility] ([id number]) [address] [place] [address] Urea nitrogen [Mass/Vol] 16 mg/dL Normal 5-27 [facility] Comment on above: Performed By: #### C BCA, 1987-07, 06725-1, C34, 15996-9, ENAP, 02423-8, DEO, B2G #### [facility] ([id number]) [address], [address] [place] [address] #### NAIFA #### [facility] ([id number]) [address] [place] [address] CT CERVICAL SPINE WO CONTon 04-23-2024 CT CERVICAL SPINE WO CONT CT CERVICAL SPINE WO CONT STUDY: CT CERVICAL SPINE WO CONT INDICATION: Neck pain, acute, prior cervical surgery. TECHNIQUE: * CT of the cervical spine, was performed without intravenous contrast. Coronal & sagittal MPR images were generated and reviewed. * All CT scans at this facility use dose modulation, iterative reconstruction, and/or weight based dosing when appropriate to reduce radiation dose to as low as reasonably achievable. FINDINGS: No evidence of acute fracture or traumatic malalignment. C5-C7 anterior cervical discectomy and fusion. Posterior fusion at C4-T1 with associated laminectomy changes. Prevertebral, paraspinal soft tissues are broadly unremarkable accounting for artifact from the hardware. Bony neuroforaminal stenosis at C5-C6 and to a lesser extent C6-C7. Bony spinal canal stenosis is not well assessed the level of the fusion hardware. Biapical pleural-parenchymal scarring. IMPRESSION: * No evidence of acute fracture or traumatic malalignment. Finalized by Tam Rogers on 04/23/2024 1:21 PM Normal [facility] HGB AND HCTon 04-23-2024 Hematocrit (Bld) [Volume fraction] 34.0 % Low 35-47 [facility] Comment on above: Performed By: #### C ERMELINDA, 1987-07, 33249-2, C34, 38793-6, ENAP, 88851-1, DEO, B2G #### [facility] ([id number]) [address] [place] [address] #### NAIFA #### [facility] ([id number]) [address] [place] [address] 78406 Hemoglobin (Bld) [Mass/Vol] 11.3 g/dL Low 11.7-15.5 [facility] Comment on above: Performed By: #### C ERMELINDA, 1986-07, 34205-3, C34, 79291-6, ENAP, 06418-6, DEO, B2G #### [facility] ([id number]) [address], [address] [place] [address] #### NAIFA #### [facility] ([id number]) [address] [place] [address] MAGNESIUMon 04-23-2024 Magnesium [Mass/Vol] 2.0 mg/dL Normal 1.8-2.6 [facility] Comment on above: Performed By: #### C ERMELINDA, 1986-07, 18301-9, C34, 02062-8, ENAP, 11213-6, DEO, B2G #### [facility] ([id number]) [address], [address] [place] [address] #### NAIFA #### [facility] ([id number]) [address] [place] [address] PROTIME AND INRon 04-23-2024 INR Coag (PPP) [Relative time] 1.1 {INR} Normal 0.8-1.1 [facility] Comment on above: Performed By: #### Tracy WADSWORTH, 1986-07, 00083-4, C34, 54188-6, ENAP, 42050-5, DEO, B2G #### [facility] ([id number]) [address], [facility] [address] [place] [address] #### NAIFA #### [facility] ([id number]) [address] [place] [address] PT Coag (PPP) [Time] 13.0 s Normal 9.8-13.2 [facility] Comment on above: Result Comment: NEW REFERENCE RANGE Performed By: #### C ERMELINDA, 1986-07, 98611-4, C34, 45900-2, ENAP, 34405-3, DEO, B2G #### [facility] ([id number]) [address], [address] [address] #### NAIFA #### [facility] ([id number]) [address] [place] [address] CBC AND AUTO DIFFon 04-22-19 25 ABSOLUTE BASOPHIL 0.1 X10E9/L Normal 0.0-0.2 [facility] Comment on above: Performed By: #### C ERMELINDA, 1986-07, 61697-6, C34, 92402-7, ENAP, 04827-3, DEO, B2G #### [facility] ([id number]) [address], [facility] [address] [place] [address] #### NAIFA #### [facility] ([id number]) [address] [place] [address] ABSOLUTE NEUTROPHIL 4.4 X10E9/L Normal 1.5-6.6 [facility] Comment on above: Performed By: #### C ERMELINDA, 1986-07, 97699-0, C34, 44043-8, ENAP, 03828-3, DEO, B2G #### [facility] ([id number]) [address], [address] [place] [address] #### NAIFA #### [facility] ([id number]) [address] [place] [address]807 Basophils/100 WBC (Bld) 1.1 % Normal [facility] Comment on above: Performed By: #### C BCA, 1986-07, 59907-0, C34, 02065-8, ENAP, 98328-9, DEO, B2G #### [facility] ([id number]) [address], [address] [place] [address] #### NAIFA #### [facility] ([id number]) [address] [place] [address]64 Eosinophils (Bld) [#/Vol] 0.1 10*3/uL Normal 0.0-0.4 [facility] Comment on above: Performed By: #### C ERMELINDA, 1986-07, 36371-1, C34, 75055-5, ENAP, 29892-3, DEO, B2G #### [facility] ([id number]) [address], [address] [place] [address] #### NAIFA #### [facility] ([id number]) [address] [place] [address]006 Eosinophils/100 WBC (Bld) 1.7 % Normal [facility] Comment on above: Performed By: #### C ERMELINDA, 1986-07, 66835-2, C34, 53297-1, ENAP, 62772-7, DEO, B2G #### [facility] ([id number]) [address], [address] [place] [address] #### NAIFA #### [facility] ([id number]) [address] [place] [address] 69162 Erythrocyte distribution width (RBC) [Ratio] 14.3 % Normal 11.5-15.0 [facility] Comment on above: Performed By: #### C BCA, 1986-07, 52399-2, C34, 74198-4, ENAP, 25413-8, DEO, B2G #### [facility] ([id number]) [address], [address] [place] [address] #### NAIFA #### [facility] ([id number]) [address] [place] [address]61 Hematocrit (Bld) [Volume fraction] 38.0 % Normal 35-47 [facility] Comment on above: Performed By: #### C ERMELINDA, 1986-07, 37216-4, C34, 61020-6, ENAP, 48219-6, DEO, B2G #### [facility] ([id number]) [address], [address] [place] [address] #### NAIFA #### [facility] ([id number]) [address] [place] [address] [address] Hemoglobin (Bld) [Mass/Vol] 12.7 g/dL Normal 11.7-15.5 [facility] Comment on above: Performed By: #### C ERMELINDA, 1987-07, , C34, 44973-3, ENAP, 97084-9, DEO, B2G #### [facility] ([id number]) [address], [address] [place] [address] #### NAIFA #### [facility] ([id number]) [address] [place] [address] Lymphocytes (Bld) [#/Vol] 2.6 10*3/uL Normal 1.0-3.5 [facility] Comment on above: Performed By: #### C ERMELINDA, 1986-07, 11910-2, C34, 85328-5, ENAP, 38694-8, DEO, B2G #### [facility] ([id number]) [address], [address] [place] [address] #### NAIFA #### [facility] ([id number]) [address] [place] [address] 26357 Lymphocytes/100 WBC (Bld) 33.1 % Normal [facility] Comment on above: Performed By: #### C BCA, 1987-07, 43871-0, C34, 22207-1, ENAP, 52232-2, DEO, B2G #### [facility] ([id number]) [address] [facility], [address] [place] [address] #### NAIFRuiz #### [facility] ([id number]) [address] [place] [address] 03016 MCH (RBC) [Entitic mass] 31.7 pg Normal 27-34 [facility] Comment on above: Performed By: #### C BCA, 1987-07, 03672-1, C34, 87326-3, ENAP, 08579-6, DEO, B2G #### [facility] ([id number]) [address] [facility], [address] [place] [address] #### NAIFA #### [facility] ([id number]) [address] [place] [address]997 MCHC (RBC) [Mass/Vol] 33.6 g/dL Normal 32-36 [facility] Comment on above: Performed By: #### C BCA, 1987-07, 21765-5, C34, 41417-6, ENAP, 96196-1, DEO, B2G #### [facility] ([id number]) [address], [address] [place] [address] #### NAIFA #### [facility] ([id number]) [address] [place] [address]60 MCV (RBC) [Entitic vol] 94 fL Normal 80-100 [facility] Comment on above: Performed By: #### C ERMELINDA, 1986-07, 58568-8, C34, 84076-7, ENAP, 01472-7, DEO, B2G #### [facility] ([id number]) [address], [address] [place] [address] #### NAIFA #### [facility] ([id number]) [address] [place] [address] Monocytes (Bld) [#/Vol] 0.7 10*3/uL Normal 0-0.9 [facility] Comment on above: Performed By: #### C ERMELINDA, 1987-07, 10035-4, C34, 79662-9, ENAP, 23680-0, DEO, B2G #### [facility] ([id number]) [address], [address] [place] [address] #### NAIFA #### [facility] ([id number]) [address] [place] [address]61 Monocytes/100 WBC (Bld) 9.1 % Normal [facility] Comment on above: Performed By: #### C ERMELINDA, 1986-07, 33024-5, C34, 58006-7, ENAP, 68401-9, DEO, B2G #### [facility] ([id number]) [address], [address] [place] [address] #### NAIFA #### [facility] ([id number]) [address] [place] [address]49 Neutrophils/100 WBC (Bld) 55.0 % Normal [facility] Comment on above: Performed By: #### C ERMELINDA, 1987-07, 51691-0, C34, 75303-5, ENAP, 05225-5, DEO, B2G #### [facility] ([id number]) [address], [address] [place] [address] #### NAIFA #### [facility] ([id number]) [address] [place] [address] 69474 Platelet mean volume (Bld) [Entitic vol] 8.9 fL Normal 7-12 [facility] Comment on above: Performed By: #### C BCA, 1987-07, 24797-1, C34, 70095-1, ENAP, 01360-6, DEO, B2G #### [facility] ([id number]) [address], [address] [place] [address] #### NAIFA #### [facility] ([id number]) [address] [place] [address] 38821 Platelets (Bld) [#/Vol] 326 10*3/uL Normal 150-450 [facility] Comment on above: Performed By: #### C ERMELINDA, 1987-07, 95975-1, C34, 83108-8, ENAP, 29701-3, DEO, B2G #### [facility] ([id number]) [address], [address] [place] [address] #### NAIFA #### [facility] ([id number]) [address] [place] [address] 53067 RBC COUNT 4.02 X10E12/L Normal 3.80-5.20 [facility] Comment on above: Performed By: #### C ERMELINDA, 1986-07, 84142-2, C34, 05918-0, ENAP, 78207-8, DEO, B2G #### [facility] ([id number]) [address], [address] [place] [address] #### NAIFA #### [facility] ([id number]) [address] [place] [address] 25628 WBC (Bld) [#/Vol] 7.9 10*3/uL Normal 4.0-11.0 [facility] Comment on above: Performed By: #### C BCA, 1987-07, 80474-1, C34, 31632-2, ENAP, 92202-7, DEO, B2G #### [facility] ([id number]) [address], [address] [place] [address] #### NAIFA #### [facility] ([id number]) [address] [place] [address] COMPREHENSIVE METABOLIC PANE David 04-22-2024 Albumin [Mass/Vol] 4.2 g/dL Normal 3.2-5.3 [facility] Comment on above: Performed By: #### C BCA, 1987-07, 07953-6, C34, 10865-8, ENAP, 01678-4, DEO, B2G #### [facility] ([id number]) [address], [address] [place] [address] #### NAIFA #### [facility] ([id number]) [address] [place] [address] 06512 ALP [Catalytic activity/Vol] 137 U/L High 39-130 [facility] Comment on above: Performed By: #### C BCA, 1987-07, 53536-5, C34, 88426-2, ENAP, 48382-9, DEO, B2G #### [facility] ([id number]) [address], [address] [place] [address] #### NAIFA #### [facility] ([id number]) [address] [place] [address] 22892 ALT [Catalytic activity/Vol] 22 U/L Normal 0-31 [facility] Comment on above: Performed By: #### C BCA, 1987-07, 89253-0, C34, 13866-5, ENAP, 25388-5, DEO, B2G #### [facility] ([id number]) [address], [address] [place] [address] #### NAIFA #### [facility] ([id number]) [address] [place] [address]30 Anion gap [Moles/Vol] 14 mmol/L Normal 5-15 [facility] Comment on above: Performed By: #### C BCA, 1987-07, 23318-5, C34, 68902-4, ENAP, 76404-0, DEO, B2G #### [facility] ([id number]) [address], [address] [place] [address] #### NAIFA #### [facility] ([id number]) [address] [place] [address] 44255 AST [Catalytic activity/Vol] 32 U/L Normal 0-41 [facility] Comment on above: Performed By: #### C BCA, 1987-07, 04190-9, C34, 83522-4, ENAP, 45709-4, DEO, B2G #### [facility] ([id number]) [address], [address] [place] [address] #### NAIFA #### [facility] ([id number]) [address] [place] [address] 27022 Bilirubin [Mass/Vol] 0.5 mg/dL Normal 0.3-1.2 [facility] Comment on above: Performed By: #### C BCA, 1987-07, 48556-5, C34, 83201-5, ENAP, 77580-4, DEO, B2G #### [facility] ([id number]) [address], [address] [place] [address] #### NAIFA #### [facility] ([id number]) [address] [place] [address] 74100 Calcium [Mass/Vol] 9.4 mg/dL Normal 8.5-10.5 [facility] Comment on above: Performed By: #### C BCA, 1987-07, 22931-6, C34, 46926-7, ENAP, 48566-3, DEO, B2G #### [facility] ([id number]) [address] [facility], [address] [place] [address] #### NAIFA #### [facility] ([id number]) [address] [place] [address] 05006 Chloride [Moles/Vol] 102 mmol/L Normal 98-109 [facility] Comment on above: Performed By: #### C BCA, 1987-07, , C34, 52763-1, ENAP, 02181-6, DEO, B2G #### [facility] ([id number]) [address] [facility], [address] [place] [address] #### NAIFA #### [facility] ([id number]) [address] [place] [address] 83790 CO2 [Moles/Vol] 21 mmol/L Low 22-32 [facility] Comment on above: Performed By: #### C BCA, 1987-07, , C34, 48997-6, ENAP, 36515-4, DEO, B2G #### [facility] ([id number]) [address] [facility], [address] [place] [address] #### NAIFA #### [facility] ([id number]) [address] [place] [address] 16525 Creatinine [Mass/Vol] 0.74 mg/dL Normal 0.40-1.00 [facility] Comment on above: Result Comment: METH OD TRACEABLE TO IDMS STANDARD Performed By: #### C BCA, 1987-07, 03089-9, C34, 31059-6, ENAP, 20880-5, DEO, B2G #### [facility] ([id number]) [address], [address] [place] [address] #### NAIFA #### [facility] ([id number]) [address] [place] [address] 29368 eGFR (CKD-EPI) NON-RACE DEPENDENT >90 Normal >59 [facility] Comment on above: Result Comment: Reported eGFR is based on the CKD-EPI 2020 equation that does not use a race coefficient. Performed By: #### C BCA, 1987-07, , C34, 88787-8, ENAP, 62486-1, DEO, B2G #### [facility] ([id number]) [address], [address] [place] [address] #### NAIFA #### [facility] ([id number]) [address] [place] [address] 43376 Glucose [Mass/Vol] 95 mg/dL Normal 65-99 [facility] Comment on above: Performed By: #### C BCA, 1987-07, , C34, 09497-7, ENAP, 52707-1, DEO, B2G #### [facility] ([id number]) [address], [address] [place] [address] #### NAIFA #### [facility] ([id number]) [address] [place] [address] 57742 Potassium [Moles/Vol] 3.5 mmol/L Normal 3.5-5.0 [facility] Comment on above: Performed By: #### C BCA, 1987-07, , C34, 59820-6, ENAP, 27643-4, DEO, B2G #### [facility] ([id number]) [address], [address] [place] [address] #### NAIFA #### [facility] ([id number]) [address] [place] [address] 71078 Protein [Mass/Vol] 7.7 g/dL Normal 6.0-8.0 [facility] Comment on above: Performed By: #### C BCA, 1987-07, 39638-9, C34, 49842-7, ENAP, 82800-7, DEO, B2G #### [facility] ([id number]) [address] [facility], [address] [place] [address] #### NAIFA #### [facility] ([id number]) [address] [place] [address] 20163 Sodium [Moles/Vol] 137 mmol/L Normal 134-146 [facility] Comment on above: Performed By: #### C BCA, 1987-07, 63061-0, C34, 64176-2, ENAP, 37394-2, DEO, B2G #### [facility] ([id number]) [address] [facility], [address] [place] [address] #### NAIFA #### [facility] ([id number]) [address] [place] [address] 46783 Urea nitrogen [Mass/Vol] 16 mg/dL Normal 5-27 [facility] Comment on above: Performed By: #### C BCA, 1987-07, 02840-5, C34, 47933-9, ENAP, 66078-0, DEO, B2G #### [facility] ([id number]) [address] [facility], [address] [place] [address] #### NAIFA #### [facility] ([id number]) [address] [place] [address] BRAIN WO CONTon CT BRAIN WO CONT CT BRAIN WO CONT Examination: Noncontrast brain CT Date of Exam:04/22/2024 Clinical History:Trauma head pain Comparison:02/28/2023 Procedure: Multi-detector CT performed through the brain without IV contrast. Automatic exposure control (AEC) was utilized. Findings: There is no intracranial hemorrhage, extra-axial fluid collection, mass effect, or hydrocephalus. Sandoval-white matter differentiation is appropriate. Infarcts may be occult on CT, but grossly no acute infarct identified There is no midline shift. No fracture identified. The sinuses are clear. IMPRESSION: 1. No acute findings. All CT scans at this facility use dose modulation, iterative reconstruction, and/or weight based dosing when appropriate to reduce radiation dose to as low as reasonably achievable. Finalized by Mikael Griffith MD on 04/22/2024 5:00 PM Normal [facility] CT FACIAL BONES WO CONTon CT FACIAL BONES WO CONT CT FACIAL BONES WO CONT CT FACIAL BONES WO CONT: 04/22/2024 PROVIDED HISTORY: * 63 years old Female * Facial trauma, blunt; Struck in the nose by her dog on Coumadin headache COMPARISON: CT brain 02/28/2023 TECHNIQUE: 1. Axial CT of the maxillofacial structures were acquired. Multiplanar reformats were created and reviewed. Examination performed without the administration of intravenous contrast. 2. All CT scans at this facility use dose modulation, iterative reconstruction, and/or weight based dosing when appropriate to reduce radiation dose to as low as reasonably achievable. FINDINGS: Suboptimal examination due to motion degradation as well as artifact from dental hardware. No acute fracture, with relative preservation of the pterygoid plates, zygoma, orbital ugalde, maxillary ugalde, lamina papyracea, nasal bones, and mandible. Well-aerated paranasal sinuses. Mild bowing and spurring of the nasal septum. Unremarkable temporomandibular joints. No deep dental caries or periapical lucencies. Unremarkable skull base. Postsurgical changes of the visualized spine. Orbits are unremarkable for technique. Unremarkable soft tissues of the face and neck. Visualized mucosal spaces are unremarkable, within limitations of motion artifact. Hypoplastic mastoid air cells and middle ear cavities are well-aerated. IMPRESSION: No acute traumatic sequelae. Finalized by Davidson Medel MD on 04/22/2024 4:57 PM Normal [facility] PROTIME AND INRon 04-22-2024 INR Coag (PPP) [Relative time] 1.0 {INR} Normal 0.8-1.1 [facility] Comment on above: Performed By: #### C ERMELINDA, 1986-07, , C34, 59216-3, ENAP, 40204-3, DEO, B2G #### [facility] ([id number]) [address], [address] [place] [address] #### NAIFA #### [facility] ([id number]) [address] [place] [address] 96829 PT Coag (PPP) [Time] 11.7 s Normal 9.8-13.2 [facility] Comment on above: Result Comment: NEW REFERENCE RANGE Performed By: #### C ERMELINDA, 1986-07, , C34, 45260-1, ENAP, 38814-9, DEO, B2G #### [facility] ([id number]) [address], [address] [place] [address] #### NAIFA #### [facility] ([id number]) [address] [place] [address] 42789 THYROID PROFILEon 04-22-2024 Free T4 [Mass/Vol] 0.88 ng/dL Normal 0.61-1.60 [facility] Comment on above: Performed By: #### Trayc WADSWORTH, 1986-07, , C34, 66625-6, ENAP, 69724-0, DEO, B2G #### [facility] ([id number]) [address] [place] [address] #### NAIFA #### [facility] ([id number]) [address] [place] [address] 10859 TSH 2.41 uIU/mL Normal 0.49-4.67 [facility] Comment on above: Performed By: #### Tracy WADSWORTH, 1986-07, 19668-2, C34, 03453-4, ENAP, 45464-0, DEO, B2G #### [facility] ([id number]) [address], [address] [place] [address] #### NAIFA #### [facility] ([id number]) [address] [place] [address] 57153 aPTT Coag (PPP) [Time]on aPTT Coag (Bld) [Time] 31 s Normal 26-37 [facility] Comment on above: Result Comment: NEW REFERENCE RANGE Performed By: #### C BCA, 1986-07, 73127-6, C34, 80182-3, ENAP, 73632-6, DEO, B2G #### [facility] ([id number]) [address], [address] [address] #### NAIFA #### [facility] ([id number]) [address] [place] [address] 72551 LIVER PANELon 04-17-2024 Albumin [Mass/Vol] 4.5 g/dL Normal 3.2-5.3 [facility] Comment on above: Performed By: #### C BCA, 1987-07, 77075-2, C34, 50320-0, ENAP, 66466-4, DEO, B2G #### [facility] ([id number]) [address], [address] [place] [address] #### NAIFA #### [facility] ([id number]) [address] [place] [address] 37205 ALP [Catalytic activity/Vol] 135 U/L High 39-130 [facility] Comment on above: Performed By: #### C BCA, 1987-07, 63161-5, C34, 79041-8, ENAP, 34493-7, DEO, B2G #### [facility] ([id number]) [address], [address] [place] [address] #### NAIFA #### [facility] ([id number]) [address] [place] [address] 09414 ALT [Catalytic activity/Vol] 18 U/L Normal 0-31 [facility] Comment on above: Performed By: #### C BCA, 1987-07, 94315-1, C34, 05592-6, ENAP, 44367-9, DEO, B2G #### [facility] ([id number]) [address], [address] [place] [address] #### NAIFA #### [facility] ([id number]) [address] [place] [address] 92017 AST [Catalytic activity/Vol] 29 U/L Normal 0-41 [facility] Comment on above: Performed By: #### C BCA, 1987-07, 47562-2, C34, 90974-2, ENAP, 97472-7, DEO, B2G #### [facility] ([id number]) [address], [address] [place] [address] #### NAIFA #### [facility] ([id number]) [address] [place] [address] 04545 Bilirubin [Mass/Vol] 0.3 mg/dL Normal 0.3-1.2 [facility] Comment on above: Performed By: #### C BCA, 1987-07, 14026-0, C34, 33746-8, ENAP, 47971-2, DEO, B2G #### [facility] ([id number]) [address] [place] [address] #### NAIFA #### [facility] ([id number]) [address] [place] [address] 83395 Bilirubin.direct [Mass/Vol] 0.1 mg/dL Normal 0.0-0.4 [facility] Comment on above: Performed By: #### C BCA, 1986-07, 24701-4, C34, 24372-6, ENAP, 33557-1, DEO, B2G #### [facility] ([id number]) [address], [address] [place] [address] #### NAIFA #### [facility] ([id number]) [address] [place] [address] Protein [Mass/Vol] 7.7 g/dL Normal 6.0-8.0 [facility] Comment on above: Performed By: #### C BCA, 1987-07, 01146-6, C34, 92762-3, ENAP, 35331-2, DEO, B2G #### [facility] ([id number]) [address] [facility], [address] [place] [address] #### NAIFA #### [facility] ([id number]) [address] [place] [address] XR Ankle - left 3 [facility] Result: AP Lateral and oblique: No acute fracture or dislocation: Previous avulsion fracture to distal tip of fibula appears well healed. No effusion Impression: No acute bony process left ankle [facility] Radiology Study observation (narrative) [facility] XR ANKLE LT MIN 3 VWSon 11-0 XR ANKLE LT MIN 3 VWS XR ANKLE LT MIN 3 VWS History: Pain after injury Exam/Technique: Frontal lateral and oblique views of the left ankle were obtained. Comparison: 12/14/2023 Findings: The previously described fracture from the tip of the lateral malleolus is again seen and is unchanged. The remainder the visualized osseous structures are intact. Ankle mortise is normal in appearance. There is been a reduction in the soft tissue swelling seen on the prior study. IMPRESSION: Stable appearance of the nondisplaced fracture from the tip of the lateral malleolus. Otherwise normal left ankle. Finalized by Tatiana Russo MD on 02/01/2024 10:08 PM Normal [facility] XR Ankle - left 3 [facility] Result: AP lateral and mortise view of left ankle showed a significant increase in callus formation to the distal fibular fracture compared to prior x-rays. Talus is well centered in the talar dome and ankle mortise was well preserved without instability. There was no acute bony process including but not limited to displacement of current fracture and/or fracture. Impression: Healing fracture left distal fibula [facility] Radiology Study observation (narrative) [facility] ANTI CARDIOLIPIN AB IGG IGA IGMon 12-25-2023 DEO IgA <2.0 Normal 0-19.9 [facility] Comment on above: Performed By: #### C ERMELINDA, 1986-07, 55823-4, C34, 73792-5, ENAP, 17675-6, DEO, B2G #### [facility] ([id number]) [address] [facility], [address] [place] [address] #### NAIFA #### [facility] ([id number]) [address] [place] [address] 14725 DEO IgG <1.6 Normal 0-19.9 [facility] Comment on above: Performed By: #### Tracy WADSWORTH, 1986-07, 40415-2, C34, 26820-0, ENAP, 00551-1, DEO, B2G #### [facility] ([id number]) [address] [facility], [address] [place] [address] #### NAIFA #### [facility] ([id number]) [address] [place] [address] 51731 DEO IgM <1.5 Normal 0-19.9 [facility] Comment on above: Performed By: #### Tracy WADSWORTH, 1986-07, 90691-7, C34, 00677-1, ENAP, 64794-4, DEO, B2G #### [facility] ([id number]) [address] [facility] [facility], [address] [place] [address] #### NAIFA #### [facility] ([id number]) [address] [place] [address] 93911 Antinuclear AB, HE-p Substra te, (JEISON by IFA)on 12-25-2023 Antinuclear Ab, HEp-2 Substrate, S Negative Normal <1:80 (Negative) [facility] Comment on above: Result Comment: NOTE ADDITIONAL INFORMATION Method: Immunofluorescence using HEp-2 cellular substrate. Test Performed by: [facility] [address] [place] [address] Assembly Machine Offbearer: Bhargav Larson Ph.D.; CLIA# [id number] Performed By: #### C BCA, 1986-07, 81289-7, C34, 40057-2, ENAP, 64652-4, DEO, B2G #### [facility] ([id number]) [address] [place] [address], [address] [address] #### NAIFA #### [facility] ([id number]) [address] [place] [address] 95634 BETA-2 GP1 AB PANELon 2023 BETA-2 GP1 IgA <2.0 Normal 0.0-19.9 [facility] Comment on above: Performed By: #### C BCA, 1986-07, 33212-7, C34, 01014-5, ENAP, 47297-2, DEO, B2G #### [facility] ([id number]) [address] [place] [address], [address] [place] [address] #### NAIFA #### [facility] ([id number]) [address] [place] [address] 19854 BETA-2 GP1 IgG <1.4 Normal 0.0-19.9 [facility] Comment on above: Performed By: #### C BCA, 1987-07, 33458-4, C34, 03144-4, ENAP, 87211-2, DEO, B2G #### [facility] ([id number]) [address], [address] [place] [address] #### NAIFA #### [facility] ([id number]) [address] [place] [address] 15577 BETA-2 GP1 IgM <1.5 Normal 0.0-19.9 [facility] Comment on above: Performed By: #### C ERMELINDA, 1987-07, 01326-3, C34, 64716-0, ENAP, 18882-3, DEO, B2G #### [facility] ([id number]) [address], [address] [place] [address] #### NAIFA #### [facility] ([id number]) [address] [place] [address]191 CBC AND AUTO DIFFon 12-25-19 24 ABSOLUTE BASOPHIL 0.1 X10E9/L Normal 0.0-0.2 [facility] Comment on above: Performed By: #### C ERMELINDA, 1987-07, 35345-6, C34, 41872-8, ENAP, 24656-2, DEO, B2G #### [facility] ([id number]) [address], [address] [place] [address] #### NAIFA #### [facility] ([id number]) [address] [place] [address]129 ABSOLUTE NEUTROPHIL 5.9 X10E9/L Normal 1.5-6.6 [facility] Comment on above: Performed By: #### C BCA, 1987-07, 08944-4, C34, 16812-8, ENAP, 28848-0, DEO, B2G #### [facility] ([id number]) [address], [address] [place] [address] #### NAIFA #### [facility] ([id number]) [address] [place] [address] 53360 Basophils/100 WBC (Bld) 0.7 % Normal [facility] Comment on above: Performed By: #### C BCA, 1987-07, 94719-6, C34, 69588-4, ENAP, 50142-3, DEO, B2G #### [facility] ([id number]) [address] [facility], [address] [place] [address] #### NAIFA #### [facility] ([id number]) [address] [place] [address] 38390 Eosinophils (Bld) [#/Vol] 0.2 10*3/uL Normal 0.0-0.4 [facility] Comment on above: Performed By: #### C ERMELINDA, 1987-07, 19398-7, C34, 66373-2, ENAP, 73350-1, DEO, B2G #### [facility] ([id number]) [address] [facility], [address] [place] [address] #### NAIFA #### [facility] ([id number]) [address] [place] [address] 79749 Eosinophils/100 WBC (Bld) 2.0 % Normal [facility] Comment on above: Performed By: #### C ERMELINDA, 1987-07, 60472-0, C34, 03174-2, ENAP, 40319-9, DEO, B2G #### [facility] ([id number]) [address], [address] [place] [address] #### NAIFA #### [facility] ([id number]) [address] [place] [address] 74952 Erythrocyte distribution width (RBC) [Ratio] 14.7 % Normal 11.5-15.0 [facility] Comment on above: Performed By: #### C BCA, 1987-07, 43646-8, C34, 46599-8, ENAP, 37186-4, DEO, B2G #### [facility] ([id number]) [address], [address] [place] [address] #### NAIFA #### [facility] ([id number]) [address] [place] [address] 20550 Hematocrit (Bld) [Volume fraction] 36.7 % Normal 35-47 [facility] Comment on above: Performed By: #### C ERMELINDA, 1987-07, 47306-4, C34, 83859-5, ENAP, 73194-4, DEO, B2G #### [facility] ([id number]) [address], [address] [place] [address] #### NAIFA #### [facility] ([id number]) [address] [place] [address] 56716 Hemoglobin (Bld) [Mass/Vol] 12.0 g/dL Normal 11.7-15.5 [facility] Comment on above: Performed By: #### C ERMELINDA, 1987-07, , C34, 21789-7, ENAP, 01616-7, DEO, B2G #### [facility] ([id number]) [address], [address] [place] [address] #### NAIFA #### [facility] ([id number]) [address] [place] [address] 03272 Lymphocytes (Bld) [#/Vol] 1.7 10*3/uL Normal 1.0-3.5 [facility] Comment on above: Performed By: #### C ERMELINDA, 1987-07, 55557-4, C34, 61683-1, ENAP, 96355-0, DEO, B2G #### [facility] ([id number]) [address], [address] [place] [address] #### NAIFA #### [facility] ([id number]) [address] [place] [address] 74555 Lymphocytes/100 WBC (Bld) 20.0 % Normal [facility] Comment on above: Performed By: #### C BCA, 1987-07, 52125-4, C34, 01378-6, ENAP, 87632-2, DEO, B2G #### [facility] ([id number]) [address], [address] [place] [address] #### NAIFA #### [facility] ([id number]) [address] [place] [address] 66402 MCH (RBC) [Entitic mass] 31.9 pg Normal 27-34 [facility] Comment on above: Performed By: #### C BCA, 1987-07, 17956-2, C34, 38472-0, ENAP, 11404-1, DEO, B2G #### [facility] ([id number]) [address], [address] [place] [address] #### NAIFA #### [facility] ([id number]) [address] [place] [address] 27981 MCHC (RBC) [Mass/Vol] 32.8 g/dL Normal 32-36 [facility] Comment on above: Performed By: #### C BCA, 1987-07, 21273-6, C34, 96166-2, ENAP, 42107-8, DEO, B2G #### [facility] ([id number]) [address], [address] [place] [address] #### NAIFA #### [facility] ([id number]) [address] [place] [address] 48218 MCV (RBC) [Entitic vol] 97 fL Normal 80-100 [facility] Comment on above: Performed By: #### C ERMELINDA, 1987-07, 76798-3, C34, 88313-0, ENAP, 45601-7, DEO, B2G #### [facility] ([id number]) [address], [address] [place] [address] #### NAIFA #### [facility] ([id number]) [address] [place] [address] 23330 Monocytes (Bld) [#/Vol] 0.8 10*3/uL Normal 0-0.9 [facility] Comment on above: Performed By: #### C ERMELINDA, 1987-07, , C34, 51897-8, ENAP, 30082-2, DEO, B2G #### [facility] ([id number]) [address], [address] [place] [address] #### NAIFA #### [facility] ([id number]) [address] [place] [address] 77459 Monocytes/100 WBC (Bld) 9.0 % Normal [facility] Comment on above: Performed By: #### C ERMELINDA, 1987-07, 67637-1, C34, 60331-4, ENAP, 54474-5, DEO, B2G #### [facility] ([id number]) [address], [address] [place] [address] #### NAIFA #### [facility] ([id number]) [address] [place] [address] 24215 Neutrophils/100 WBC (Bld) 68.3 % Normal [facility] Comment on above: Performed By: #### C ERMELINDA, 1987-07, 22111-8, C34, 39483-8, ENAP, 86006-8, DEO, B2G #### [facility] ([id number]) [address], [address] [place] [address] #### NAIFA #### [facility] ([id number]) [address] [place] [address] 42052 Platelet mean volume (Bld) [Entitic vol] 9.5 fL Normal 7-12 [facility] Comment on above: Performed By: #### C BCA, 1987-07, 79734-0, C34, 80656-2, ENAP, 35941-5, DEO, B2G #### [facility] ([id number]) [address], [address] [place] [address] #### NAIFA #### [facility] ([id number]) [address] [place] [address] 10466 Platelets (Bld) [#/Vol] 267 10*3/uL Normal 150-450 [facility] Comment on above: Performed By: #### C ERMELINDA, 1987-07, 80101-5, C34, 86931-4, ENAP, 00547-8, DEO, B2G #### [facility] ([id number]) [address], [address] [place] [address] #### NAIFA #### [facility] ([id number]) [address] [place] [address] 61981 RBC COUNT 3.77 X10E12/L Low 3.80-5.20 [facility] Comment on above: Performed By: #### C ERMELINDA, 1987-07, 27405-6, C34, 16370-5, ENAP, 44608-2, DEO, B2G #### [facility] ([id number]) [address], [address] [place] [address] #### NAIFA #### [facility] ([id number]) [address] [place] [address] 81123 WBC (Bld) [#/Vol] 8.6 10*3/uL Normal 4.0-11.0 [facility] Comment on above: Performed By: #### C BCA, 1987-07, 15696-0, C34, 59413-8, ENAP, 15239-1, DEO, B2G #### [facility] ([id number]) [address], [address] [place] [address] #### NAIFA #### [facility] ([id number]) [address] [place] [address] 24303 COMPLEMENT PROFILEon 024 COMPLEMENT C3 159 mg/dL Normal 86-184 [facility] Comment on above: Performed By: #### C BCA, 1987-07, 12761-9, C34, 80397-8, ENAP, 29223-6, DEO, B2G #### [facility] ([id number]) [address], [address] [place] [address] #### NAIFA #### [facility] ([id number]) [address] [place] [address] 52926 COMPLEMENT C4 49 mg/dL High 16-47 [facility] Comment on above: Performed By: #### C ERMELINDA, 1987-07, 99132-8, C34, 02417-3, ENAP, 34448-0, DEO, B2G #### [facility] ([id number]) [address], [address] [place] [address] #### NAIFA #### [facility] ([id number]) [address] [place] [address] 43745 CRP [Mass/Vol]on 12-25-2023 C REACTIVE PROTEIN 1.0 mg/dL High 0.000-0.744 [facility] Comment on above: Performed By: #### C BCA, 1987-07, 18595-9, C34, 63143-7, ENAP, 96126-0, DEO, B2G #### [facility] ([id number]) [address], [address] [place] [address] #### NAIFA #### [facility] ([id number]) [address] [place] [address] 35735 JANNA PANELon 12-25-2023 ANTI-STEPHEN AB IGG <0.2 Normal <1.0 [facility] Comment on above: Performed By: #### C BCA, 1987-07, 26925-2, C34, 05772-4, ENAP, 06853-1, DEO, B2G #### [facility] ([id number]) [address], [address] [place] [address] #### NAIFA #### [facility] ([id number]) [address] [place] [address] 15949 JO1 ANTIBODY <0.2 Normal <1.0 [facility] Comment on above: Performed By: #### C BCA, 1987-07, 74365-0, C34, 21070-9, ENAP, 57404-4, DEO, B2G #### [facility] ([id number]) [address], [address] [place] [address] #### NAIFA #### [facility] ([id number]) [address] [place] [address] 82636 HERB GROWER ANTIBODY IGG <0.2 Normal <1.0 [facility] Comment on above: Performed By: #### C BCA, 1987-07, 99824-8, C34, 43247-2, ENAP, 22626-9, DEO, B2G #### [facility] ([id number]) [address], [address] [place] [address] #### NAIFA #### [facility] ([id number]) [address] [place] [address] 03011 SCL 70 ANTIBODY <0.2 Normal <1.0 [facility] Comment on above: Performed By: #### C ERMELINDA, 1987-07, 51544-7, C34, 02258-3, ENAP, 32003-9, DEO, B2G #### [facility] ([id number]) [address], [address] [place] [address] #### NAIFA #### [facility] ([id number]) [address] [place] [address] 41009 SSA ANTIBODY <0.2 Normal <1.0 [facility] Comment on above: Performed By: #### C ERMELINDA, 1987-07, , C34, 97529-0, ENAP, 90762-0, DEO, B2G #### [facility] ([id number]) [address], [address] [place] [address] #### NAIFA #### [facility] ([id number]) [address] [place] [address] 05435 SSB ANTIBODY <0.2 Normal <1.0 [facility] Comment on above: Performed By: #### C ERMELINDA, 1987-07, , C34, 39690-7, ENAP, 70321-1, DEO, B2G #### [facility] ([id number]) [address], [address] [place] [address] #### NAIFA #### [facility] ([id number]) [address] [place] [address] 11391 ESR Photometric method (Bld) [Velocity]on 12-25-2023 ESR, ERYTHROCYTE SEDIMENTATION RATE 53 mm/h High 0-30 [facility] Comment on above: Performed By: #### C ERMELINDA, 1987-07, 51028-8, C34, 75656-3, ENAP, 60218-3, DEO, B2G #### [facility] ([id number]) [address] [place] [address], [address] [place] [address] #### NAIFA #### [facility] ([id number]) [address] [place] [address] 12516 Neutrophil cytoplasmic Ab pa paula IF (S)on 12-25-2023 c-ANCA Negative Normal Negative [facility] Comment on above: Performed By: #### C BCA, 1987-07, 83420-6, C34, 89681-9, ENAP, 43136-7, DEO, B2G #### [facility] ([id number]) [address] [place] [address] #### NAIFA #### [facility] ([id number]) [address] [place] [address] 69039 p-ANCA Negative Normal Negative [facility] Comment on above: Result Comment: NOTE Negative for cANCA and pANCA patterns by immunofluorescence. ADDITIONAL INFORMATION This test was developed and its performance characteristics determined by [facility] in a manner consistent with CLIA requirements. This test has not been cleared or approved by the U.S. Food and Drug Administration. Test Performed by: [facility] [place] [place] [address] Assembly Machine Offbearer: Bhargav Larsno Ph.D.; CLIA# [id number] Performed By: #### C BCA, 1987-07, 93320-3, C34, 87595-9, ENAP, 76514-8, DEO, B2G #### [facility] ([id number]) [address] [place] [address], [address] [place] [address] #### NAIFA #### [facility] ([id number]) [address] [place] [address] 95961 No Panel Informationon 12-24 MAGNO Brown 12/25/2023 12:07 PM Cast / Splint / Fx Date/Time: 12/25/2023 11:59 AM Performed by: MAGNO Brown Authorized by: MAGNO Brown Consent given by: patient Timeout: Immediately prior to procedure a time out was called to verify the correct patient, procedure, equipment, application support intern and site/side marked as required Injury Location details: left ankle Fracture type: lateral malleolus fracture Pre-procedure assessment neurovascularly intact Range of motion: normal Procedure Manipulation performed? no manipulation performed Immobilization: splint Splint/Brace type: cam boot Post-procedure assessment neurovascularly intact Range of motion: unchanged Patient tolerance: patient tolerated the procedure well with no immediate complications Comments A left L4361 Walking Boot, Pneumatic and/or Vacuum, With or Without Joints, Prefabricated, Off the Shelf was dispensed and applied at this visit. Due to the patient's diagnosis and related symptoms this is medically necessary for treatment. The function of this device is to restrict and limit motion, provide stabilization, immobilization, and compression to the affected area. The goals and function-of this device were explained in detail to the patient. Upon gait analysis, the device appeared to be fitting well and the patient states that the device is comfortable at this time. The patient was shown and told in detail how to properly wear and care for the device. They were able to apply the device properly themselves and able to ambulate without distress. At the time the device was dispensed, it was suitable for the condition and was not substandard. No guarantees were given and precautions were reviewed. Written instructions and warranty information was given along with the list of the current Durable Medical Equipment Supplier Guidelines. The patient was given a patient education sheet regarding signs and symptoms of a DVT and was instructed to call the doctor immediately if they experience any symptoms. [facility] Rheumatoid factor Nephelomet ry Qn (S)on 12-25-2023 RHEUMATOID FACTOR 11 IU/mL Normal <20 [facility] Comment on above: Performed By: #### C BCA, 1988-5, 24436-3, C34, 18052-0, ENAP, 23591-2, DEO, B2G #### [facility] ([id number]) [address] [place] [address] #### NAIFA #### [facility] ([id number]) [address] [place] [address] 64583 URINALYSISon 12-25-2023 Bilirubin Ql (U) Negative Normal NEG [facility] Comment on above: Performed By: #### C ERMELINDA, 1987-07, 44628-2, C34, 06123-2, ENAP, 57448-7, DEO, B2G #### [facility] ([id number]) [address], [address] [place] [address] #### NAIFA #### [facility] ([id number]) [address] [place] [address] 83384 BLOOD/HGB Negative Normal NEG [facility] Comment on above: Performed By: #### C ERMELINDA, 1987-07, , C34, 48983-2, ENAP, 07204-3, DEO, B2G #### [facility] ([id number]) [address], [address] [place] [address] #### NAIFA #### [facility] ([id number]) [address] [place] [address] 06068 CA OXALATE CRYSTALS PRESENT Abnormal NONE [facility] Comment on above: Performed By: #### C ERMELINDA, 1987-07, , C34, 92082-9, ENAP, 04499-3, DEO, B2G #### [facility] ([id number]) [address], [address] [place] [address] #### NAIFA #### [facility] ([id number]) [address] [place] [address] 06316 Color (U) YELLOW Normal YELLOW [facility] Comment on above: Performed By: #### C ERMELINDA, 1987-07, 60835-6, C34, 47529-6, ENAP, 50479-5, DEO, B2G #### [facility] ([id number]) [address], [address] [place] [address] #### NAIFA #### [facility] ([id number]) [address] [place] [address] 61353 Glucose Ql (U) Negative Normal NEG [facility] Comment on above: Performed By: #### C BCA, 1987-07, 51377-9, C34, 44640-8, ENAP, 83184-5, DEO, B2G #### [facility] ([id number]) [address], [address] [place] [address] #### NAIFA #### [facility] ([id number]) [address] [place] [address] 34592 Hyaline casts LM Ql (Urine sed) 1 /lpf Normal 0-2 [facility] Comment on above: Performed By: #### C BCA, 1987-07, 30320-5, C34, 93324-9, ENAP, 19654-9, DEO, B2G #### [facility] ([id number]) [address], [address] [place] [address] #### NAIFA #### [facility] ([id number]) [address] [place] [address] 93922 Ketones Ql (U) Negative Normal NEG [facility] Comment on above: Performed By: #### C BCA, 1987-07, 95819-2, C34, 09237-6, ENAP, 84649-5, DEO, B2G #### [facility] ([id number]) [address], [address] [place] [address] #### NAIFA #### [facility] ([id number]) [address] [place] [address] 77676 Leukocyte esterase Test strip Ql (U) Negative Normal NEG [facility] Comment on above: Performed By: #### C BCA, 1987-07, 19398-9, C34, 23726-6, ENAP, 27692-9, DEO, B2G #### [facility] ([id number]) [address], [address] [place] [address] #### NAIFA #### [facility] ([id number]) [address] [place] [address] 96794 MUCOUS PRESENT Abnormal NONE [facility] Comment on above: Performed By: #### C ERMELINDA, 1987-07, 69485-9, C34, 13479-2, ENAP, 55868-6, DEO, B2G #### [facility] ([id number]) [address], [address] [place] [address] #### NAIFA #### [facility] ([id number]) [address] [place] [address] 15602 Nitrite Ql (U) Negative Normal NEG [facility] Comment on above: Performed By: #### C ERMELINDA, 1987-07, , C34, 92821-0, ENAP, 70186-0, DEO, B2G #### [facility] ([id number]) [address], [address] [place] [address] #### NAIFA #### [facility] ([id number]) [address] [place] [address] 65664 pH (U) 6.0 [pH] Normal 5.0-8.5 [facility] Comment on above: Performed By: #### C ERMELINDA, 1987-07, 15107-1, C34, 73817-4, ENAP, 74495-2, DEO, B2G #### [facility] ([id number]) [address], [address] [place] [address] #### NAIFA #### [facility] ([id number]) [address] [place] [address] 18382 Protein Ql (U) Trace Abnormal NEG [facility] Comment on above: Performed By: #### C ERMELINDA, 1987-07, 82309-8, C34, 16408-8, ENAP, 89089-8, DEO, B2G #### [facility] ([id number]) [address], [address] [place] [address] #### NAIFA #### [facility] ([id number]) [address] [place] [address] 92706 R.B.CELLS <1 Normal 0-5 [facility] Comment on above: Performed By: #### C ERMELINDA, 1987-07, , C34, 22731-6, ENAP, 32893-2, DEO, B2G #### [facility] ([id number]) [address], [address] [place] [address] #### NAIFA #### [facility] ([id number]) [address] [place] [address] 43704 Specific gravity (U) [Rel density] 1.029 Normal 1.003-1.035 [facility] Comment on above: Performed By: #### C ERMELINDA, 1987-07, , C34, 03297-7, ENAP, 87858-6, DEO, B2G #### [facility] ([id number]) [address], [address] [place] [address] #### NAIFA #### [facility] ([id number]) [address] [place] [address] 25436 SQUAMOUS EPITHELIUM <1 Normal 0-5 [facility] Comment on above: Performed By: #### C BCA, 1987-07, , C34, 43530-9, ENAP, 65225-7, DEO, B2G #### [facility] ([id number]) [address], [address] [place] [address] #### NAIFA #### [facility] ([id number]) [address] [place] [address] 93033 TURBIDITY CLEAR Normal CLEAR [facility] Comment on above: Performed By: #### C BCA, 1987-07, 82282-4, C34, 16494-3, ENAP, 35436-0, DEO, B2G #### [facility] ([id number]) [address] [facility], [address] [place] [address] #### NAIFA #### [facility] ([id number]) [address] [place] [address] 60216 Urobilinogen (U) [Mass/Vol] mg/dL Normal <1.1 [facility] Comment on above: Performed By: #### C BCA, 1987-07, 52954-4, C34, 90450-9, ENAP, 44955-8, DEO, B2G #### [facility] ([id number]) [address] [place] [address] #### NAIFA #### [facility] ([id number]) [address] [place] [address] 61912 W.B.CELLS 2 /hpf Normal 0-5 [facility] Comment on above: Performed By: #### C BCA, 1987-07, 85479-9, C34, 55803-2, ENAP, 56490-9, DEO, B2G #### [facility] ([id number]) [address] [facility], [address] [place] [address] #### NAIFA #### [facility] ([id number]) [address] [place] [address] 86057 dRVVT/dRVVT.excess phospholi pid Coag (PPP) [Ratio]on 12-25-2023 DIL[facility] Negative Normal [facility] Comment on above: Performed By: #### C BCA, 1988-5, 77656-5, C34, 81137-8, ENAP, 85552-2, DEO, B2G #### [facility] ([id number]) [address] [facility], [address] [place] [address] #### NAIFA #### [facility] ([id number]) [address] [facility] [place] [address] XR ANKLE LT MIN 3 VWSon 11-25 XR ANKLE LT MIN 3 VWS XR ANKLE LT MIN 3 VWS XR ANKLE LT MIN 3 VWS HISTORY: Acute ankle pain COMPARISON: None. FINDINGS: Acute nondisplaced lateral malleolar fracture. Associated soft tissue swelling. Ankle mortise appears congruent. IMPRESSION: * Nondisplaced lateral malleolar fracture. Approved by Resident Amol Gallegos DO on 12/22/2023 12:31 PM IAlessia have personally reviewed the image(s) and agree with and/or edited the report Finalized by Alessia Mcmahon on 12/22/2023 12:34 PM Normal [facility] 36on 10-26-2022 [facility] told [facility] DC to home 10/19. Couldn't confirm that her line was removed. Call to pt and she verified IV was removed upon discharge from [place]. Normal [facility] 36on 10-10-2022 36 Opat received. Order s confirmed with Analilia at [facility] for meds, labs and EOT. Transferred to [facility] for a follow appt to be scheduled. Normal [facility] CT CHEST WO CONon 08-09-2022 CT CHEST WO CON Normal [facility] NM BONE SC WH BODYon 023 NM BONE SC WH BODY Normal [facility] CBC AUTO DIFFon 07-31-2022 BASO # 0.1 103/ul Normal 0.0-0.1 [facility] Comment on above: Performed By: #### C BC ####[facility] [address] [place] [place] [address]Dr. Lizandro Hemphill Basophils/100 WBC (Bld) 1.3 % Normal 0.2-2.0 [facility] Comment on above: Performed By: #### C BC ####[facility] [address] [place], [place] [address]Dr. Shanikaannie Joby EO # 0.2 103/ul Normal 0.0-0.7 [facility] Comment on above: Performed By: #### C BC ####[facility] [address] [place], [place] [address]Dr. Lizandro Hemphill Eosinophils/100 WBC (Bld) 2.4 % Normal 0.9-7.0 [facility] Comment on above: Performed By: #### C BC ####[facility] [address] [place], [place] [address]Dr. Lizandro Joby Erythrocyte distribution width (RBC) [Ratio] 19.4 % Critically high 11.0-15.0 [facility] Comment on above: Performed By: #### C BC ####[facility] [address] [place], [place] [address]Dr. Lizandro Hemphill Hematocrit (Bld) [Volume fraction] 39.6 % Normal 36.0-48.0 [facility] Comment on above: Performed By: #### C BC ####[facility] [address] [place], [place] [address]Dr. Lizandro Hemphill Hemoglobin (Bld) [Mass/Vol] 12.4 g/dL Normal 12.0-16.0 [facility] Comment on above: Performed By: #### C BC ####[facility] [address] [place], [place] [address]Dr. Lizandro Hemphill IG # 0.02 10e3/ul Normal 0.00-0.03 [facility] Comment on above: Performed By: #### C BC ####[facility] [address] [place], [place] [address]Dr. Lizandro Hemphill IG % 0.3 % Normal 0.0-0.5 [facility] Comment on above: Performed By: #### C BC ####[facility] [address] [place] [place] [address]DrCiro Hemphill LYMPH # 1.1 103/ul Critically low 1.2-3.8 [facility] Comment on above: Performed By: #### C BC ####[facility] [address] [place] [place] [address]DrCiro Hemphill Lymphocytes/100 WBC (Bld) 15.3 % Critically low 20.5-60.0 [facility] Comment on above: Performed By: #### C BC ####[facility] [address] [place], [place] [address]DrCiro Hemphill MANUAL DIFF REQ NO Normal [facility] Comment on above: Performed By: #### C BC ####[facility] [address] [place] [address]DrCiro Hemphill MCH (RBC) [Entitic mass] 28.6 pg Normal 26.7-34.0 [facility] Comment on above: Performed By: #### C BC ####[facility] [address] [place], [place] [address]DrCiro Hemphill MCHC (RBC) [Mass/Vol] 31.3 g/dL Normal 29.9-35.2 [facility] Comment on above: Performed By: #### C BC ####[facility] [address] [place], [place] [address]DrCiro Hemphill MCV (RBC) [Entitic vol] 91.5 fL Normal 81.0-99.0 [facility] Comment on above: Performed By: #### C BC ####[facility] [address] [place], [place] [address]DrCiro Hemphill MONO # 0.7 103/ul Normal 0.3-0.8 [facility] Comment on above: Performed By: #### C BC ####[facility] [facility] [address] [place], [place] [address]DrCiro Hemphill Monocytes/100 WBC (Bld) 10.5 % Normal 1.7-12.0 [facility] Comment on above: Performed By: #### C BC ####[facility] Xkcdvhnoxu3056 [place] [address]Dr. Lizandro Hemphill NEUT # 5.0 103/ul Normal 1.4-6.5 [facility] Comment on above: Performed By: #### C BC ####[facility] Semrpfmlqa5073 [place] [address]Dr. Lizandro Hemphill Neutrophils/100 WBC (Bld) 70.2 % Normal 43.0-75.0 [facility] Comment on above: Performed By: #### C BC ####[facility] Pvhdlkbcgv6080 [place] [address]Dr. Lizandro Hemphill Platelet mean volume (Bld) [Entitic vol] 10.5 fL Normal 9.5-13.5 [facility] Comment on above: Performed By: #### C BC ####[facility] Tqcaekipfz3884 [place] [address]Dr. Lizandro Hemphill PLT 294 103/ul Normal 150-450 [facility] Comment on above: Performed By: #### C BC ####[facility] Bueqindztf1387 [place] [id number]. Lizandro Hemphill RBC 4.33 106/ul Normal 4.20-5.40 [facility] Comment on above: Performed By: #### C BC ####[facility] Wononsevdh4820 [place] [id number]. Lizandro Hemphill WBC 7.1 103/ul Normal 4.0-11.0 [facility] Comment on above: Performed By: #### C BC ####[facility] Ysfswqgvld4514 [place] [address]. Lizandro Hemphill CT HIP LT WO CONon 3 CT HIP LT WO CON Normal [facility] CT KNEE LT WO CONon 08-01-[address] KNEE LT WO CON Normal [facility] PROF 14(COMP METB)on 023 Albumin [Mass/Vol] 3.0 g/dL Critically low 3.4-5.0 Th e [facility] Comment on above: Performed By: #### C MP ####[facility] Jqdtksguot9320 [place] [address]Dr. Lizandro Joby Albumin/Globulin [Mass ratio] 0.8 {ratio} Normal [facility] Comment on above: Performed By: #### C MP ####[facility] Gujcqfuzcr4258 [place] [address]Dr. Lizandro Joby ALP [Catalytic activity/Vol] 163 U/L Critically high 46-116 [facility] Comment on above: Performed By: #### C MP ####[facility] Jocqcgeqkv8407 [place] [address]Dr. Lizandro Joby ALT [Catalytic activity/Vol] 76 U/L Critically high 14-59 [facility] Comment on above: Performed By: #### C MP ####[facility] Cdetpyefrk4733 [place] [address]Dr. Lizandro Hemphill Anion gap [Moles/Vol] 10.8 mmol/L Normal [facility] Comment on above: Performed By: #### C MP ####[facility] Evlyzzoavz5393 [place] [address]Dr. Lizandro Joby AST [Catalytic activity/Vol] 79 U/L Critically high 15-37 [facility] Comment on above: Performed By: #### C MP ####[facility] Iayqzkqpyj[address] [place], [place] [address]Dr. Lizandro Hemphill Bilirubin [Mass/Vol] 0.1 mg/dL Critically low 0.2-1.0 [facility] Comment on above: Performed By: #### C MP ####[facility] Ehipleicyx3496 [place] [id number]. Lizandro Hemphill Calcium [Mass/Vol] 9.2 mg/dL Normal 8.5-10.1 [facility] Comment on above: Performed By: #### C MP ####[facility] Yssfvczfin4541 [place] [address]Dr. Lizandro Hemphill Chloride [Moles/Vol] 105 mmol/L Normal 98-107 [facility] Comment on above: Performed By: #### C MP ####[facility] Cocoqlplwo1207 [place] [address]Dr. Lizandro Hemphill CO2 [Moles/Vol] 29.1 mmol/L Normal 21.0-32.0 [facility] Comment on above: Performed By: #### C MP ####[facility] Aayudanmmu8848 [place] [address]Dr. Lizandro Hemphill Creatinine [Mass/Vol] 0.74 mg/dL Normal 0.55-1.02 [facility] Comment on above: Performed By: #### C MP ####[facility] Lmjpowvsew8511 [place] [address]Dr. Lizandro Hemphill EGFR-AF ARMENIAN >60 Normal >=60 [facility] Comment on above: Performed By: #### C MP ####[facility] Vcvrddvtrl9777 [place] [address]Dr. Lizandro Hemphill EGFR-NON AF ARMENIAN >60 Normal >=60 [facility] Comment on above: Performed By: #### C MP ####[facility] Qrnovudfxb1717 [place] [address]Dr. Lizandro Hemphill Globulin (S) [Mass/Vol] 3.9 g/dL Normal [facility] Comment on above: Performed By: #### C MP ####[facility] Vklzowcskc8701 [place] [address]Dr. Lizandro Hemphill Glucose [Mass/Vol] 96 mg/dL Normal 74-106 [facility] Comment on above: Performed By: #### C MP ####[facility] Syfxyzzuyd3809 [place] [address]Dr. Lizandro Hemphill Potassium [Moles/Vol] 3.9 mmol/L Normal 3.5-5.1 [facility] Comment on above: Performed By: #### C MP ####[facility] Cleylojkxg1786 [place] [address]Dr. Lizandro Hemphill Protein [Mass/Vol] 6.9 g/dL Normal 6.4-8.2 [facility] Comment on above: Performed By: #### C MP ####[facility] Mammdwahsf3712 [place] [address]Dr. Lizandro Hemphill Sodium [Moles/Vol] 141 mmol/L Normal 136-145 [facility] Comment on above: Performed By: #### C MP ####[facility] Gifdgclnqh7622 [place] [address]Dr. Lizandro Hemphill Urea nitrogen [Mass/Vol] 13.0 mg/dL Normal 7.0-18.0 [facility] Comment on above: Performed By: #### C MP ####[facility] Otbdugjhel3650 [place] [address]Dr. Lizandro Hemphill Urea nitrogen/Creatinin e [Mass ratio] 17.6 mg/mg Normal [facility] Comment on above: Performed By: #### C MP ####[facility] Cfdxacixlw7471 [place] [address]Dr. Lizandro eHmphill PROTIMEon 07-31-2022 INR Coag (PPP) [Relative time] 1.56 {INR} Normal [facility] Comment on above: Performed By: #### P T, PTT ####[facility] Oitxsuknry[address] [place], [place] [address]Dr. Lizandro Hemphill INR GUIDELINES SEE BELOW Normal [facility] Comment on above: Result Comment: GUEVARA RED INR: 2.0 - 3.0 CONDITIONS NOT LISTED BELOW 2.5 - 3.5 FOR PROSTHETIC HEART VALVE REPLACEMENT 2.5 - 3.5 RECURRENT THROMBOSIS Performed By: #### P T, PTT ####[facility] Suzltjhbyx[address] [place], [place] [address]Dr. Lizandro Hemphill PT Coag (PPP) [Time] 16.1 s Critically high 9.0-11.6 [facility] Comment on above: Performed By: #### P T, PTT ####[facility] Jjjrjolxcf[address] [place], [place] [address]Dr. Lizandro Hemphill PTTon 07-31-2022 aPTT Coag (Bld) [Time] 30.4 s Normal 22.3-36.2 [facility] Comment on above: Performed By: #### P T, PTT ####[facility] Jkfgwavrth5756 [place] [id number]. Lizandro Joby CBC AUTO DIFFon 07-30-2022 BASO # 0.1 103/ul Normal 0.0-0.1 [facility] Comment on above: Performed By: #### C BC ####[facility] Iiptkjjsxl0246 [place] [id number]. Lizandro Hemphill Basophils/100 WBC (Bld) 1.1 % Normal 0.2-2.0 [facility] Comment on above: Performed By: #### C BC ####[facility] Zicjuhxrxa[address] [place], [place] [address]Dr. Lizandro Hemphill EO # 0.1 103/ul Normal 0.0-0.7 [facility] Comment on above: Performed By: #### C BC ####[facility] Kazozgijhu[address] [place], [place] [address]Dr. Lizandro Hemphill Eosinophils/100 WBC (Bld) 2.7 % Normal 0.9-7.0 [facility] Comment on above: Performed By: #### C BC ####[facility] Sahokrgcwx[address] [place], [place] [address]Dr. Shanikaannie Hemphill Erythrocyte distribution width (RBC) [Ratio] 19.5 % Critically high 11.0-15.0 [facility] Comment on above: Performed By: #### C BC ####[facility] Ofhcqfhudt[address] [place], [place] [address]Dr. Lizandro Hemphill Hematocrit (Bld) [Volume fraction] 34.5 % Critically low 36.0-48.0 [facility] Comment on above: Performed By: #### C BC ####[facility] Ecdckhozyg[address] [place], [place] [address]Dr. Lizandro Hemphill Hemoglobin (Bld) [Mass/Vol] 10.8 g/dL Critically low 12.0-16.0 [facility] Comment on above: Performed By: #### C BC ####[facility] Ikoymuipne[address] [place], [place] [address]Dr. Lizandro Hemphill IG # 0.02 10e3/ul Normal 0.00-0.03 [facility] Comment on above: Performed By: #### C BC ####[facility] Winabujkvu4186 [place] [id number]. Lizandro Hemphill IG % 0.4 % Normal 0.0-0.5 [facility] Comment on above: Performed By: #### C BC ####[facility] Ztuzzfozdr9839 [place] [id number]. Lizandro Hemphill LYMPH # 1.0 103/ul Critically low 1.2-3.8 [facility] Comment on above: Performed By: #### C BC ####[facility] Zkdymnrqpb9110 [place] [id number]. Lizandro Hemphill Lymphocytes/100 WBC (Bld) 19.2 % Critically low 20.5-60.0 [facility] Comment on above: Performed By: #### C BC ####[facility] Zpjokothwd2734 [place] [address]Dr. Lizandro Hemphill MANUAL DIFF REQ NO Normal [facility] Comment on above: Performed By: #### C BC ####[facility] Wlqwvscpef9243 [place] [id number]. Lizandro Hemphill MCH (RBC) [Entitic mass] 28.5 pg Normal 26.7-34.0 [facility] Comment on above: Performed By: #### C BC ####[facility] Ogwhkzitkh1918 [place] [id number]. Lizandro Hemphill MCHC (RBC) [Mass/Vol] 31.3 g/dL Normal 29.9-35.2 [facility] Comment on above: Performed By: #### C BC ####[facility] Ofefjgkbos0394 [place] [id number] Hemphill MCV (RBC) [Entitic vol] 91.0 fL Normal 81.0-99.0 [facility] Comment on above: Performed By: #### C BC ####[facility] Eincygwbgu3080 [place] [address]DrCiro Hemphill MONO # 0.7 103/ul Normal 0.3-0.8 [facility] Comment on above: Performed By: #### C BC ####[facility] Gkumhuewux7838 [place] [id number]. Lizandro Hemphill Monocytes/100 WBC (Bld) 12.5 % Critically high 1.7-12.0 [facility] Comment on above: Performed By: #### C BC ####[facility] Ndvaxdsizm7430 [place] [id number]. Lizandro Hemphill NEUT # 3.4 103/ul Normal 1.4-6.5 [facility] Comment on above: Performed By: #### C BC ####[facility] Nnlzgpgpxx6351 [place] [id number]. Lizandro Hemphill Neutrophils/100 WBC (Bld) 64.1 % Normal 43.0-75.0 [facility] Comment on above: Performed By: #### C BC ####[facility] Vsttzfrrwo3102 [place] [id number]. Lizandro Hemphill Platelet mean volume (Bld) [Entitic vol] 10.9 fL Normal 9.5-13.5 [facility] Comment on above: Performed By: #### C BC ####[facility] Jdextytrrn1846 [place] [id number]. Lizandro Hemphill PLT 284 103/ul Normal 150-450 [facility] Comment on above: Performed By: #### C BC ####[facility] Vuhzxjtvdl5061 [place] [id number]. Lizandro Hemphill RBC 3.79 106/ul Critically low 4.20-5.40 [facility] Comment on above: Performed By: #### C BC ####[facility] Dysheuljhh2440 [place] [id number]. Lizandro Hemphill WBC 5.3 103/ul Normal 4.0-11.0 [facility] Comment on above: Performed By: #### C BC ####[facility] Ysxkddwego1291 [place] [id number]. Lizandro Hemphill LIVER PROFILEon 07-30-2022 Albumin [Mass/Vol] 2.9 g/dL Critically low 3.4-5.0 [facility] Comment on above: Performed By: #### L IVER ####[facility] Mocwfsmezm9149 [place] [id number]. Lizandro Hemphill Albumin/Globulin [Mass ratio] 0.8 {ratio} Normal [facility] Comment on above: Performed By: #### L IVER ####[facility] Ysubttzwbm1035 [place] [id number]. Lizandro Hemphill ALP [Catalytic activity/Vol] 164 U/L Critically high 46-116 [facility] Comment on above: Performed By: #### L IVER ####[facility] Ouhtmqwzvd2500 [place] [id number]. Lizandro Hemphill ALT [Catalytic activity/Vol] 91 U/L Critically high 14-59 [facility] Comment on above: Performed By: #### L IVER ####[facility] Xlmvoofpwo0035 [place] [id number]. Lizandro Hemphill AST [Catalytic activity/Vol] 113 U/L Critically high 15-37 [facility] Comment on above: Performed By: #### L IVER ####[facility] Wvmeoueskd2693 [place] [phone]. Lizandro Hemphill BILI, CONJUGATED 0.1 mg/dL Normal 0.0-0.2 [facility] Comment on above: Performed By: #### L IVER ####[facility] Rvwmphtpuc0315 [place] [id number]. Lizandro Hemphill Bilirubin [Mass/Vol] 0.2 mg/dL Normal 0.2-1.0 [facility] Comment on above: Performed By: #### L IVER ####[facility] Ryfydlnmkk3901 [place] [id number]. Lizandro Hemphill Globulin (S) [Mass/Vol] 3.7 g/dL Normal [facility] Comment on above: Performed By: #### L IVER ####[facility] Gmfqzorbyk5007 [place] [id number]. Lizandro Hemphill Protein [Mass/Vol] 6.6 g/dL Normal 6.4-8.2 [facility] Comment on above: Performed By: #### L IVER ####[facility] Jnfyjfchtw4662 [place] [address]DrCiro Hemphill PROF 14(COMP METB)on 023 Albumin [Mass/Vol] 2.8 g/dL Critically low 3.4-5.0 Th [facility] Comment on above: Performed By: #### C MP ####[facility] Gesflcyszn0044 [place] [address]Dr. Lizandro Hemphill Albumin/Globulin [Mass ratio] 0.8 {ratio} Normal [facility] Comment on above: Performed By: #### C MP ####[facility] Tdsfezegdb8260 [place] [address]Dr. Lizandro Hemphill ALP [Catalytic activity/Vol] 157 U/L Critically high 46-116 [facility] Comment on above: Performed By: #### C MP ####[facility] Qrgnnpsior4199 [place] [address]Dr. Lizandro Hemphill ALT [Catalytic activity/Vol] 106 U/L Critically high 14-59 [facility] Comment on above: Performed By: #### C MP ####[facility] Ibbeffduab[address] [place], [place] [address]Dr. Lizandro Hemphill Anion gap [Moles/Vol] 10.4 mmol/L Normal [facility] Comment on above: Performed By: #### C MP ####[facility] Mpvbqfcydv2[address] [place], [place] [address]Dr. Lizandro Hemphill AST [Catalytic activity/Vol] 171 U/L Critically high 15-37 [facility] Comment on above: Performed By: #### C MP ####[facility] Xzjuwoshmd1306 [place] [address]Dr. Lizandro Hemphill Bilirubin [Mass/Vol] 0.3 mg/dL Normal 0.2-1.0 [facility] Comment on above: Performed By: #### C MP ####[facility] Pmwuqucrxs[address] [place], [place] [address]Dr. Lizandro Hemphill Calcium [Mass/Vol] 8.2 mg/dL Critically low 8.5-10.1 e [facility] Comment on above: Performed By: #### C MP ####[facility] Ivpnfbbrxa8290 [place] [address]Dr. Lizandro Hemphill Chloride [Moles/Vol] 107 mmol/L Normal 98-107 [facility] Comment on above: Performed By: #### C MP ####[facility] Zcpslwrdac6077 [place] [address]Dr. Lizandro Hemphill CO2 [Moles/Vol] 27.4 mmol/L Normal 21.0-32.0 [facility] Comment on above: Performed By: #### C MP ####[facility] Ugremjlvyf5180 [place] [address]Dr. Lizandro Hemphill Creatinine [Mass/Vol] 0.74 mg/dL Normal 0.55-1.02 [facility] Comment on above: Performed By: #### C MP ####[facility] Kvmuvfkgmp7[address] [place], [place] [address]Dr. Lizandro Hemphill EGFR-AF ARMENIAN >60 Normal >=60 [facility] Comment on above: Performed By: #### C MP ####[facility] Orzqyjghih3503 [place] [address]Dr. Lizandro Hemphill EGFR-NON AF ARMENIAN >60 Normal >=60 [facility] Comment on above: Performed By: #### C MP ####[facility] Zoyyrniprx[address] [place], [place] [address]Dr. Lizandro Hemphill Globulin (S) [Mass/Vol] 3.4 g/dL Normal [facility] Comment on above: Performed By: #### C MP ####[facility] Evtwkgelch5371 [place] [address]Dr. Lizandro Hemphill Glucose [Mass/Vol] 123 mg/dL Critically high 74-106 T [facility] Comment on above: Performed By: #### C MP ####[facility] Hsjlxsbzll4410 [place] [address]Dr. Lizandro Hemphill Potassium [Moles/Vol] 3.8 mmol/L Normal 3.5-5.1 [facility] Comment on above: Performed By: #### C MP ####[facility] Caxffuzgkl6757 [place] [address]Dr. Lizandro Hemphill Protein [Mass/Vol] 6.2 g/dL Critically low 6.4-8.2 Th [facility] Comment on above: Performed By: #### C MP ####[facility] Puqjfzzsiv0111 [place] [address]Dr. Lizandro Hemphill Sodium [Moles/Vol] 141 mmol/L Normal 136-145 [facility] Comment on above: Performed By: #### C MP ####[facility] Ytifihumjm8011 [place] [address]Dr. Lizandro Hemphill Urea nitrogen [Mass/Vol] 14.0 mg/dL Normal 7.0-18.0 [facility] Comment on above: Performed By: #### C MP ####[facility] Edfufoajle99[address] [place], [place] [address]Dr. Lizandro Hemphill Urea nitrogen/Creatinin e [Mass ratio] 18.9 mg/mg Normal [facility] Comment on above: Performed By: #### C MP ####[facility] Tfwopdbcop4[address] [place], [place] [address]Dr. Lizandro Hemphill PROTIMEon 07-30-2022 INR Coag (PPP) [Relative time] 1.08 {INR} Normal [facility] Comment on above: Performed By: #### P T, PTT ####[facility] Rejchhsiee[address] [place], [place] [address]Dr. Lizandro Hemphill INR GUIDELINES SEE BELOW Normal [facility] Comment on above: Result Comment: GUEVARA RED INR: 2.0 - 3.0 CONDITIONS NOT LISTED BELOW 2.5 - 3.5 FOR PROSTHETIC HEART VALVE REPLACEMENT 2.5 - 3.5 RECURRENT THROMBOSIS Performed By: #### P T, PTT ####[facility] Xajmtxpwfi15[address] [place], [place] [address]Dr. Lizandro Hemphill PT Coag (PPP) [Time] 11.4 s Normal 9.0-11.6 [facility] Comment on above: Performed By: #### P T, PTT ####[facility] Uuvipapqfj8[address] [place], [place] [address]Dr. Lizandro Hemphill PTTon 07-30-2022 aPTT Coag (Bld) [Time] 29.3 s Normal 22.3-36.2 [facility] Comment on above: Performed By: #### P T, PTT ####[facility] Qkghcipbjv6[address] [place], [place] [address]Dr. Lizandro Hemphill UA RANDOM W/MICROSCOPICon BACTERIA NONE SEEN Normal NONE SEEN [facility] Comment on above: Performed By: #### U AMIC ####[facility] Xgbabsjueo2924[address] [place], [place] [address]Dr. Lizandro Hemphill Bilirubin Ql (U) Negative Normal NEGATIVE [facility] Comment on above: Performed By: #### U AMIC ####[facility] Cuetclrskf05[address] [place], [place] [address]Dr. Lizandro Hemphill CAST NONE SEEN Normal NONE SEEN [facility] Comment on above: Performed By: #### U AMIC ####[facility] Jpbsbyubvx25[address] [place], [place] [address]Dr. Lizandro Hemphill Clarity (U) CLEAR Normal CLEAR [facility] Comment on above: Performed By: #### U AMIC ####[facility] Gwahlwoiti7396[address] [place], [place] [address]Dr. Lizandro Hemphill Color (U) LT. YELLOW Normal YELLOW [facility] Comment on above: Performed By: #### U AMIC ####[facility] Qyvzvoczfd9[address] [place], [place] [address]Dr. Lizandro Hemphill Crystals LM Nom (Urine sed) NONE SEEN Normal NONE SEEN [facility] Comment on above: Performed By: #### U AMIC ####[facility] Ijbsbowvnc75[address] [place], [place] [address]Dr. Lizandro Hemphill Epithelial cells LM Ql (Urine sed) NONE SEEN Normal NONE SEEN /RARE [facility] Comment on above: Performed By: #### U AMIC ####[facility] Koieboaxjk20[address] [place], [place] [address]Dr. Lizandro Hemphill Glucose Ql (U) 100 mg/dl Abnormal NEGATIVE [facility] Comment on above: Performed By: #### U AMIC ####[facility] Krhhqayoaf5747 [place] [address]Dr. Lizandro Hemphill Hemoglobin Ql (U) Negative Normal NEGATIVE [facility] Comment on above: Performed By: #### U AMIC ####[facility] Vbzrjiaitm4137 [place] [address]Dr. Lizandro Hemphill Ketones Ql (U) TRACE Abnormal NEGATIVE [facility] Comment on above: Performed By: #### U AMIC ####[facility] Wrraiquvmn[address] [place], [place] [address]Dr. Lizandro Hemphill LEUKOCYTES Negative Normal NEGATIVE [facility] Comment on above: Performed By: #### U AMIC ####[facility] Rjqqciodaa89[address] [place], [place] [address]Dr. Lizandro Hemphill MUCOUS NONE SEEN Normal NONE SEEN [facility] Comment on above: Performed By: #### U AMIC ####[facility] Inkitwovuz8888[address] [place], [place] [address]Dr. Lizandro Hemphill Nitrite Ql (U) Negative Normal NEGATIVE [facility] Comment on above: Performed By: #### U AMIC ####[facility] Obgphjnvnm182[address] [place], [place] [address]Dr. Lizandro Hemphill pH (U) 7.0 [pH] Normal 5-9 [facility] Comment on above: Performed By: #### U AMIC ####[facility] Aojrgtveqc4552[address] [place], [place] [address]Dr. Lizandro Hemphill RBC NONE SEEN Abnormal 0-2 [facility] Comment on above: Performed By: #### U AMIC ####[facility] Dkeovbnjdw840[address] [place], [place] [address]Dr. Lizandro Hemphill SPEC GRAVITY 1.015 Normal 1.005-<=1.025 [facility] Comment on above: Performed By: #### U AMIC ####[facility] Kcxkrpclhk3227[address] [place], [place] [address]Dr. Lizandro Hemphill UA PROTEIN Negative Normal NEGATIVE/ TRACE [facility] Comment on above: Performed By: #### U AMIC ####[facility] Jnwrtlnanf4371 [place] [id number]. Lizandro Joby Urobilinogen Qn (U) 0.2 {Cassy'U}/dL Normal 0.2 - 1.0 [facility] Comment on above: Performed By: #### U AMIC ####[facility] Xcblmxxxqx8848 [place] [id number]. Lizandro Hemphill WBC NONE SEEN Normal NONE SEEN [facility] Comment on above: Performed By: #### U AMIC ####[facility] Wxzxsuywws2149 [place] [address]Dr. Lizandro Hemphill CBC AUTO DIFFon 07-29-2022 BASO # 0.1 103/ul Normal 0.0-0.1 [facility] Comment on above: Performed By: #### C BC ####[facility] Jcrxyfiuhz[address] [place], [place] [address]Dr. Lizandro Hemphill Basophils/100 WBC (Bld) 0.8 % Normal 0.2-2.0 [facility] Comment on above: Performed By: #### C BC ####[facility] Lkrfalgycq[address] [place], [place] [address]Dr. Lizandro Hemphill EO # 0.0 103/ul Normal 0.0-0.7 [facility] Comment on above: Performed By: #### C BC ####[facility] Lxgmywltfn6[address] [place], [place] [address]Dr. Lizandro Hemphill Eosinophils/100 WBC (Bld) 0.5 % Critically low 0.9-7.0 [facility] Comment on above: Performed By: #### C BC ####[facility] Kwheelmdtk5[address] [place], [place] [address]Dr. Lizandro Hemphill Erythrocyte distribution width (RBC) [Ratio] 19.2 % Critically high 11.0-15.0 [facility] Comment on above: Performed By: #### C BC ####[facility] Zdghflaqir[address] [place], [place] [address]Dr. Lizandro Hem[place]ill Hematocrit (Bld) [Volume fraction] 40.4 % Normal 36.0-48.0 [facility] Comment on above: Performed By: #### C BC ####[facility] Shoivxfwkt4[address] [place] [id number]. Lizandro Hemphill Hemoglobin (Bld) [Mass/Vol] 12.3 g/dL Normal 12.0-16.0 [facility] Comment on above: Performed By: #### C BC ####[facility] Wnjduzlduy7868 [place] [id number]. Lizandro Hemphill IG # 0.02 10e3/ul Normal 0.00-0.03 [facility] Comment on above: Performed By: #### C BC ####[facility] Xokszbjwjw033[address] [place] [address]Dr. Lizandro Joby IG % 0.2 % Normal 0.0-0.5 [facility] Comment on above: Performed By: #### C BC ####[facility] Npgdhjynvt9099 [place] [address]Dr. Lizandro Joby LYMPH # 1.3 103/ul Normal 1.2-3.8 [facility] Comment on above: Performed By: #### C BC ####[facility] Rngzzpejvr8433 [place] [id number]. Lizandro Joby Lymphocytes/100 WBC (Bld) 14.9 % Critically low 20.5-60.0 [facility] Comment on above: Performed By: #### C BC ####[facility] Jvqektlljy4980 [place] [id number]. Lizandro oJby MANUAL DIFF REQ NO Normal [facility] Comment on above: Performed By: #### C BC ####[facility] Vcwjagajyj6207 [place] [id number]. Lizandro Joby MCH (RBC) [Entitic mass] 28.1 pg Normal 26.7-34.0 [facility] Comment on above: Performed By: #### C BC ####[facility] Ljcwpheuhb9701 [place] [id number]. Lizandro Joby MCHC (RBC) [Mass/Vol] 30.4 g/dL Normal 29.9-35.2 [facility] Comment on above: Performed By: #### C BC ####[facility] Nrhsdbngqj2409 [place] [id number]. Lizandro Hemphill MCV (RBC) [Entitic vol] 92.2 fL Normal 81.0-99.0 [facility] Comment on above: Performed By: #### C BC ####[facility] Cgmwuihyko5807 [place] [id number]. Lizandro Hemphill MONO # 0.7 103/ul Normal 0.3-0.8 [facility] Comment on above: Performed By: #### C BC ####[facility] Dtpmaoqsud6417 [place] [id number]. Lizandro Hemphill Monocytes/100 WBC (Bld) 8.2 % Normal 1.7-12.0 [facility] Comment on above: Performed By: #### C BC ####[facility] Ggvueixzsk[address] [place], [place] [id number]. Lizandro Hepmhill NEUT # 6.6 103/ul Critically high 1.4-6.5 [facility] Comment on above: Performed By: #### C BC ####[facility] Airbnstiak[address] [place], [place] [id number]. Lizandro Hemphill Neutrophils/100 WBC (Bld) 75.4 % Critically high 43.0-75.0 [facility] Comment on above: Performed By: #### C BC ####[facility] Ovixxftqtn[address] [place], [place] [id number]. Lizandro Joby Platelet mean volume (Bld) [Entitic vol] 10.4 fL Normal 9.5-13.5 [facility] Comment on above: Performed By: #### C BC ####[facility] Nzgeznyrdm7[address] [place], [place] [id number]. Lizandro Joby PLT 316 103/ul Normal 150-450 [facility] Comment on above: Performed By: #### C BC ####[facility] Oyqwyjeyyf[address] [place], [place] [address]Dr. Shanikaannie Joby RBC 4.38 106/ul Normal 4.20-5.40 [facility] Comment on above: Performed By: #### C BC ####[facility] Gdwrgnyein8986 [place] [address]Dr. Lizandro Hemphill WBC 8.8 103/ul Normal 4.0-11.0 [facility] Comment on above: Performed By: #### C BC ####[facility] Mscxojekim4484 [place] [address]Dr. Lizandro Hemphill LACTATE/LACTIC ACIDon 2022 Lactate [Moles/Vol] 1.0 mmol/L Normal 0.4-2.0 [facility] Comment on above: Performed By: #### L ACT ####[facility] Fqouxnaage7716 [place] [address]Dr. Lizandro Hemphill PROF 14(COMP METB)on 023 Albumin [Mass/Vol] 3.6 g/dL Normal 3.4-5.0 [facility] Comment on above: Performed By: #### C MP ####[facility] Cibsrjlmox[address] [place], [place] [address]Dr. Lizandro Hemphill Albumin/Globulin [Mass ratio] 0.9 {ratio} Normal [facility] Comment on above: Performed By: #### C MP ####[facility] Eurztgznhp38[address] [place], [place] [address]Dr. Lizandro Hemphill ALP [Catalytic activity/Vol] 132 U/L Critically high 46-116 [facility] Comment on above: Performed By: #### C MP ####[facility] Wtknkkzsdp9495 [place] [address]Dr. Lizandro Hemphill ALT [Catalytic activity/Vol] 26 U/L Normal 14-59 [facility] Comment on above: Performed By: #### C MP ####[facility] Gvwkqhnayh3424 [place] [address]Dr. Lizandro Hemphill Anion gap [Moles/Vol] 17.7 mmol/L Normal [facility] Comment on above: Performed By: #### C MP ####[facility] Lddmaarctu8266 [place] [address]Dr. Lizandro Hemphill AST [Catalytic activity/Vol] 36 U/L Normal 15-37 [facility] Comment on above: Performed By: #### C MP ####[facility] Gsqjeheujm4717 [place] [address]Dr. Lizandro Hemphill Bilirubin [Mass/Vol] 0.4 mg/dL Normal 0.2-1.0 [facility] Comment on above: Performed By: #### C MP ####[facility] Mqyixkfwpk8516 [place] [id number]. Lziandro Hemphill Calcium [Mass/Vol] 9.2 mg/dL Normal 8.5-10.1 [facility] Comment on above: Performed By: #### C MP ####[facility] Tmxprcvfxb5[address] [place], [place] [address]Dr. Lizandro Hemphill Chloride [Moles/Vol] 102 mmol/L Normal 98-107 [facility] Comment on above: Performed By: #### C MP ####[facility] Eoojxinwjt039[address] [place], [place] [address]Dr. Lizandro Hemphill CO2 [Moles/Vol] 20.1 mmol/L Critically low 21.0-32.0 [facility] Comment on above: Performed By: #### C MP ####[facility] Mbxhkaoszc300[address] [place], [place] [address]Dr. Lizandro Hemphill Creatinine [Mass/Vol] 1.00 mg/dL Normal 0.55-1.02 [facility] Comment on above: Performed By: #### C MP ####[facility] Smnreoycjo3346[address] [place], [place] [address]Dr. Lizandro Hemphill EGFR-AF ARMENIAN >60 Normal >=60 [facility] Comment on above: Performed By: #### C MP ####[facility] Iuqgjuppre956[address] [place], [place] [id number]. Lizandro Hemphill EGFR-NON AF ARMENIAN 57 mL/min/1.73m2 Critically low >=60 [facility] Comment on above: Performed By: #### C MP ####[facility] Nhaavaphaz87[address] [place], [place] [address]Dr. Lizandro Hemphill Globulin (S) [Mass/Vol] 4.1 g/dL Normal [facility] Comment on above: Performed By: #### C MP ####[facility] Udodoezcjv3317 [place] [address]Dr. Lizandro Hemphill Glucose [Mass/Vol] 79 mg/dL Normal 74-106 [facility] Comment on above: Performed By: #### C MP ####[facility] Mpsrebhmsg1099 [place] [address]Dr. Lizandro Hemphill Potassium [Moles/Vol] 2.6 mmol/L Critically low 3.5-5.1 [facility] Comment on above: Performed By: #### C MP ####[facility] Ljotbqeope5395 [place] [address]Dr. Shanikaannie Hemphill Protein [Mass/Vol] 7.7 g/dL Normal 6.4-8.2 [facility] Comment on above: Performed By: #### C MP ####[facility] Hbrqcufuop45[address] [place], [place] [address]Dr. Lizandro Hemphill Sodium [Moles/Vol] 126 mmol/L Critically low 136-145 [facility] Comment on above: Performed By: #### C MP ####[facility] Sgwjsrooad294[address] [place], [place] [address]Dr. Shanikaannie Hemphill Urea nitrogen [Mass/Vol] 15.0 mg/dL Normal 7.0-18.0 [facility] Comment on above: Performed By: #### C MP ####[facility] Owkvqmugos9905[address] [place], [place] [address]Dr. Lizandro Hemphill Urea nitrogen/Creatinin e [Mass ratio] 15.0 mg/mg Normal [facility] Comment on above: Performed By: #### C MP ####[facility] Tqzsbtmvtd1905 [place] [address]Dr. Lizandro Hemphill PROTIMEon 07-29-2022 INR Coag (PPP) [Relative time] 0.99 {INR} Normal [facility] Comment on above: Performed By: #### P T, PTT ####[facility] Mfmczvcduq739[address] [place], [place] [address]Dr. Lizandro Hemphill INR GUIDELINES SEE BELOW Normal [facility] Comment on above: Result Comment: GUEVARA RED INR: 2.0 - 3.0 CONDITIONS NOT LISTED BELOW 2.5 - 3.5 FOR PROSTHETIC HEART VALVE REPLACEMENT 2.5 - 3.5 RECURRENT THROMBOSIS Performed By: #### P T, PTT ####[facility] Ampvdhfvvu50[address] [place], [place] [address]Dr. Lizandro Hemphill PT Coag (PPP) [Time] 10.5 s Normal 9.0-11.6 [facility] Comment on above: Performed By: #### P T, PTT ####[facility] Bwdqxgszdz06[address] [place], [place] [address]Dr. Lizandro Hemphill PTTon 07-29-2022 aPTT Coag (Bld) [Time] 29.1 s Normal 22.3-36.2 [facility] Comment on above: Performed By: #### P T, PTT ####[facility] Uvbwinansl380[address] [place], [place] [address]Dr. Lizandro Hemphill XR KNEE LT 4V or >on XR KNEE LT 4V or > Normal [facility] XR PELVIS 1_2 VIEWSon 2022 XR PELVIS 1_2 VIEWS Normal [facility] CBC AUTO DIFFon 06-28-2022 BASO # 0.0 103/ul Normal 0.0-0.1 [facility] Comment on above: Performed By: #### C BC ####[facility] Lxllphsnca0044[address] [place], [place] [address]Dr. Lizandro Hemphill Basophils/100 WBC (Bld) 0.2 % Normal 0.2-2.0 [facility] Comment on above: Performed By: #### C BC ####[facility] Vciezzzktn8174[address] [place], [place] [address]Dr. Lizandro Hemphill EO # 0.0 103/ul Normal 0.0-0.7 [facility] Comment on above: Performed By: #### C BC ####[facility] Kymsduitcz3415[address] [place], [place] [address]Dr. Lizandro Hemphill Eosinophils/100 WBC (Bld) 0.0 % Critically low 0.9-7.0 [facility] Comment on above: Performed By: #### C BC ####[facility] Sujuccylky2949 [place] [address]Dr. Lizandro Hemphill Erythrocyte distribution width (RBC) [Ratio] 19.2 % Critically high 11.0-15.0 [facility] Comment on above: Performed By: #### C BC ####[facility] Wkusdyycmj2108 [place] [address]Dr. Lizandro Hemphill Hematocrit (Bld) [Volume fraction] 34.1 % Critically low 36.0-48.0 [facility] Comment on above: Performed By: #### C BC ####[facility] Zvogphgige[address] [place], [place] [address]Dr. Lizandro Hemphill Hemoglobin (Bld) [Mass/Vol] 10.7 g/dL Critically low 12.0-16.0 [facility] Comment on above: Performed By: #### C BC ####[facility] Tgdwxpkvzz6987[address] [place], [place] [address]Dr. Lizandro Hemphill IG # 0.02 10e3/ul Normal 0.00-0.03 [facility] Comment on above: Performed By: #### C BC ####[facility] Scuxitzxpi1358[address] [place], [place] [address]Dr. Lizandro Hemphill IG % 0.3 % Normal 0.0-0.5 [facility] Comment on above: Performed By: #### C BC ####[facility] Opceioglvo[address] [place], [place] [address]Dr. Lizandro Hemphill LYMPH # 0.4 103/ul Critically low 1.2-3.8 [facility] Comment on above: Performed By: #### C BC ####[facility] Cnwjyntjdb[address] [place], [place] [address]Dr. Lizandro Hemphill Lymphocytes/100 WBC (Bld) 6.5 % Critically low 20.5-60.0 [facility] Comment on above: Performed By: #### C BC ####[facility] Ytgctmlyyb4442[address] [place], [place] [address]Dr. Lizandro Hemphill MANUAL DIFF REQ YES Normal [facility] Comment on above: Result Comment: Prev iously reported as: NO On 06/28/2022 05:01 By KD3 Performed By: #### C BC ####[facility] Dyykmshanl5552[address] [place], [place] [address]DrCiro Hemhpill MCH (RBC) [Entitic mass] 27.2 pg Normal 26.7-34.0 [facility] Comment on above: Performed By: #### C BC ####[facility] Jqxkwepenb902[address] [place], [place] [address]Dr. Lizandro Hemphill MCHC (RBC) [Mass/Vol] 31.4 g/dL Normal 29.9-35.2 [facility] Comment on above: Performed By: #### C BC ####[facility] Wclecabchf018[address] [place], [place] [address]DrCiro Hemphill MCV (RBC) [Entitic vol] 86.8 fL Normal 81.0-99.0 [facility] Comment on above: Performed By: #### C BC ####[facility] Ujqpreezks9512[address] [place], [place] [address]DrCiro Hemphill MONO # 0.0 103/ul Critically low 0.3-0.8 [facility] Comment on above: Performed By: #### C BC ####[facility] Oiogqvapwp13[address] [place], [place] [address]DrCiro Hemphill Monocytes/100 WBC (Bld) 0.5 % Critically low 1.7-12.0 [facility] Comment on above: Performed By: #### C BC ####[facility] Jiegzhfgqz6174[address] [place], [place] [address]DrCiro Hemphill NEUT # 5.6 103/ul Normal 1.4-6.5 [facility] Comment on above: Performed By: #### C BC ####[facility] Bdsgazkied385[address] [place], [place] [address]DrCiro Hemphill Neutrophils/100 WBC (Bld) 92.5 % Critically high 43.0-75.0 [facility] Comment on above: Performed By: #### C BC ####[facility] Fhebtsptdu8876[address] [place], [place] [address]DrCiro Hemphill Platelet mean volume (Bld) [Entitic vol] 10.5 fL Normal 9.5-13.5 [facility] Comment on above: Performed By: #### C BC ####[facility] Nyeglkgqtq4319 [place] [address]Dr. Lizandro Hemphill PLT 213 103/ul Normal 150-450 [facility] Comment on above: Performed By: #### C BC ####[facility] Ckkqnadgpj5541 [place] [address]Dr. Lizandro Hemphill RBC 3.93 106/ul Critically low 4.20-5.40 [facility] Comment on above: Performed By: #### C BC ####[facility] Ldivdufnpz039[address] [place], [place] [address]Dr. Lizandro Hemphill WBC 6.0 103/ul Normal 4.0-11.0 [facility] Comment on above: Performed By: #### C BC ####[facility] Ensybcgtzy155[address] [place], [place] [address]Dr. Lizandro Hemphill CBC W MANUAL DIFFon 06-29-19 23 ATYPICAL LYMPH # Normal [facility] Comment on above: Performed By: #### C DERRELL ####[facility] Xodqyssyxi[address] [place], [place] [address]Dr. Lizandro Hemphill ATYPICAL LYMPH % Normal [facility] Comment on above: Performed By: #### C BCMAN ####[facility] Iplqxmlhch8[address] [place], [place] [address]Dr. Lizandro Hemphill BAND # 0.0 103/ul Normal 0.0-0.3 [facility] Comment on above: Performed By: #### C BCMAN ####[facility] Qudeearfgz6472 [place] [address]Dr. Lizandro Hemphill BAND % 0 % Normal 0-5 [facility] Comment on above: Performed By: #### C BCMAN ####[facility] Jceonbryen1979 [place] [address]Dr. Lizandro Joby BASOM # 0.00 103/ul Normal 0.00-0.10 [facility] Comment on above: Performed By: #### C DERRELL ####[facility] Ufeibsmugx3702 [place] [id number]. Lizandro Hemphill BASOM % 0.0 % Critically low 0.2-2.0 [facility] Comment on above: Performed By: #### C BCMARÍA ####[facility] Rdpbrdsxgn7185 [place] [id number]. Lizandro Hemphill BLAST # Normal [facility] Comment on above: Performed By: #### C BCMARÍA ####[facility] Twuebujdao1007 [place] [address]Dr. Lizandro Hemphill BLAST % Normal [facility] Comment on above: Performed By: #### C BCMARÍA ####[facility] Vparjjmrpq47[address] [place], [place] [address]Dr. Lizandro Hemphill CORRECTED WBC Normal 4.0-11.0 [facility] Comment on above: Performed By: #### C DERRELL ####[facility] Lruxjfxizl9[address] [place], [place] [address]Dr. Lizandro Hemphill EOS # 0.00 103/ul Normal 0.00-0.70 [facility] Comment on above: Performed By: #### C BCMARÍA ####[facility] Dnlijcmqja9424[address] [place], [place] [address]Dr. Lizandro Hemphill EOS% 0.0 % Critically low 0.9-7.0 [facility] Comment on above: Performed By: #### C DERRELL ####[facility] Fqfserqonz1764[address] [place], [place] [address]Dr. Lizandro Hemphill HCT 34.1 % Critically low 36.0-48.0 [facility] Comment on above: Performed By: #### C BCMARÍA ####[facility] Smfmzojdbc7675[address] [place], [place] [address]Dr. Lizandro Hemphill HGB 10.7 g/dl Critically low 12.0-16.0 [facility] Comment on above: Performed By: #### C BCMARÍA ####[facility] Vnjkvcijdu8014[address] [place], [place] [address]Dr. Lizandro Hemphill LYMPHM # 0.54 103/ul Critically low 1.20-3.80 [facility] Comment on above: Performed By: #### C DERRELL ####[facility] Fnufenfvwp2438 [place] [address]Dr. Lizandro Hemphill LYMPHM% 9.0 % Critically low 20.5-60.0 [facility] Comment on above: Performed By: #### C DERRELL ####[facility] Qtmlfqjbgs9350 [place] [address]Dr. Lizandro Hemphill MCH 27.2 pg Normal 26.7-34.0 [facility] Comment on above: Performed By: #### C DERRELL ####[facility] Xmbbyiyggm61[address] [place], [place] [address]Dr. Lizandro Hemphill MCHC 31.4 g/dl Normal 29.9-35.2 [facility] Comment on above: Performed By: #### C DERRELL ####[facility] Buynpomrck7[address] [place], [place] [address]Dr. Lizandro Hemphill MCV 86.8 fL Normal 81.0-99.0 [facility] Comment on above: Performed By: #### C DERRELL ####[facility] Juiuvieloh9[address] [place], [place] [address]Dr. Lizandro Hemphill METAMYELOCYTE # Normal [facility] Comment on above: Performed By: #### C DERRELL ####[facility] Fxzbjmrasj[address] [place], [place] [address]Dr. Lizandro Hemphill METAMYELOCYTE % Normal [facility] Comment on above: Performed By: #### C DERRELL ####[facility] Avkkradtww96[address] [place], [place] [address]Dr. Lizandro Hemphill MONOM# 0.12 103/ul Critically low 0.30-0.80 [facility] Comment on above: Performed By: #### C DERRELL ####[facility] Kyvakbhcio4808 [place] [address]Dr. Lizandro Hemphill MONOM% 2.0 % Normal 1.7-12.0 [facility] Comment on above: Performed By: #### C DERRELL ####[facility] Bkzfgdzhov4047 [place] [id number]. Lizandro Hemphill MPV 10.5 fL Normal 9.5-13.5 [facility] Comment on above: Performed By: #### C DERRELL ####[facility] Wqufqcpcbo4251 [place], [place] [address]Gn. Lizandro Hemphill MYELOCYTE # Normal [facility] Comment on above: Performed By: #### C DERRELL ####[facility] Ltkghntdov8063 [place] [id number]. Lizandro Hemphill MYELOCYTE % Normal [facility] Comment on above: Performed By: #### C DERRELL ####[facility] Hpaqkeljaf5334 [place] [id number]. Lizandro Hemphill NRBC Normal [facility] Comment on above: Performed By: #### C DERRELL ####[facility] Gyaaigofym6632 [place] [id number]. Lizandro Hemphill PLT 213 103/ul Normal 150-450 [facility] Comment on above: Performed By: #### C DERRELL ####[facility] Ziiihkllld7065 [place] [id number]. Lizandro Hemphill RBC 3.93 106/ul Critically low 4.20-5.40 [facility] Comment on above: Performed By: #### C DERRELL ####[facility] Wuttjgjwkb9969 [place] [id number]. Lizandro Hemphill RDW 19.2 % Critically high 11.0-15.0 [facility] Comment on above: Performed By: #### C DERRELL ####[facility] Sztvplobij8466 [place] [id number]. Lizandro Hemphill SEG # 5.34 103/ul Normal 1.40-6.50 [facility] Comment on above: Performed By: #### C DERRELL ####[facility] Falmuhbmmv0378 [place] [id number]. Lizandro Hemphill SEG % 89.0 % Critically high 43.0-75.0 [facility] Comment on above: Performed By: #### C DERRELL ####[facility] Yjhulqzopr7347 [place] [id number]. Lizandro Hemphill WBC 6.0 103/ul Normal 4.0-11.0 [facility] Comment on above: Performed By: #### C DERRELL ####[facility] Sbpaepqwxp8877 [place] [id number]. Lizandro Hemphill CRPon 06-28-2022 CRP 0.1 mg/dL Normal <=1.0 [facility] Comment on above: Performed By: #### C RP, CMP ####[facility] Slxuduwedr2725 [place] [address]Dr. Lizandro Hemphill PROF 14(COMP METB)on 023 Albumin [Mass/Vol] 2.8 g/dL Critically low 3.4-5.0 Th e [facility] Comment on above: Performed By: #### C RP, CMP ####[facility] Gauhvdooiz5271 [place] [address]Dr. Lizandro Hemphill Albumin/Globulin [Mass ratio] 0.8 {ratio} Normal [facility] Comment on above: Performed By: #### C RP, CMP ####[facility] Fzwjboprqs1337 [place] [address]Dr. Lizandro Hemphill ALP [Catalytic activity/Vol] 129 U/L Critically high 46-116 [facility] Comment on above: Performed By: #### C RP, CMP ####[facility] Egzluqkevb6607 [place] [address]Dr. Lizandro Hemphill ALT [Catalytic activity/Vol] 47 U/L Normal 14-59 [facility] Comment on above: Performed By: #### C RP, CMP ####[facility] Uwdkscmldg9071 [place] [address]Dr. Lizandro Hemphill Anion gap [Moles/Vol] 11.7 mmol/L Normal [facility] Comment on above: Performed By: #### C RP, CMP ####[facility] Jmerqqzjmp6355 [place] [address]Dr. Lizandro Hemphill AST [Catalytic activity/Vol] 13 U/L Critically low 15-37 [facility] Comment on above: Performed By: #### C RP, CMP ####[facility] Jnaikbohan0956 [place] [address]Dr. Lizandro Hemphill Bilirubin [Mass/Vol] 0.1 mg/dL Critically low 0.2-1.0 [facility] Comment on above: Performed By: #### C RP, CMP ####[facility] Aunvydqqrv6[address] [place], [place] [address]Dr. Lizandro Hemphill Calcium [Mass/Vol] 8.3 mg/dL Critically low 8.5-10.1 [facility] Comment on above: Performed By: #### C RP, CMP ####[facility] Ryufixvxgg0[address] [place], [place] [address]Dr. Lizandro Hemphill Chloride [Moles/Vol] 106 mmol/L Normal 98-107 [facility] Comment on above: Performed By: #### C RP, CMP ####[facility] Phyvmxysnr4[address] [place], [place] [address]Dr. Lizandro Hemphill CO2 [Moles/Vol] 26.0 mmol/L Normal 21.0-32.0 [facility] Comment on above: Performed By: #### C RP, CMP ####[facility] Qdxxkugeza65[address] [place], [place] [address]Dr. Lizandro Hemphill Creatinine [Mass/Vol] 0.80 mg/dL Normal 0.55-1.02 [facility] Comment on above: Performed By: #### C RP, CMP ####[facility] Uvvnxkdnge10[address] [place], [place] [address]Dr. Lizandro Hemphill EGFR-AF ARMENIAN >60 Normal >=60 [facility] Comment on above: Performed By: #### C RP, CMP ####[facility] Dgbrdjlery[address] [place], [place] [address]Dr. Lizandro Hemphill EGFR-NON AF ARMENIAN >60 Normal >=60 [facility] Comment on above: Performed By: #### C RP, CMP ####[facility] Tmnkuwsjej75[address] [place], [place] [address]Dr. Lizandro Hemphill Globulin (S) [Mass/Vol] 3.4 g/dL Normal [facility] Comment on above: Performed By: #### C RP, CMP ####[facility] S[address]xaevuhh[address] [place] [address]Dr. Lizandro Hemphill Glucose [Mass/Vol] 164 mg/dL Critically high 74-106 [facility] Comment on above: Performed By: #### C RP, CMP ####[facility] Uyqyoodvfv[address] [place] [address]Dr. Lizandro Hemphill Potassium [Moles/Vol] 3.5 mmol/L Normal 3.5-5.1 [facility] Comment on above: Performed By: #### C RP, CMP ####[facility] Tlcfudzjnb[address] [place] [address]Dr. Lizandro Hemphill Protein [Mass/Vol] 6.2 g/dL Critically low 6.4-8.2 [facility] Comment on above: Performed By: #### C RP, CMP ####[facility] Lmhztitl[address] [place], [place] [address]Dr. Lizandro Hemphill Sodium [Moles/Vol] 140 mmol/L Normal 136-145 [facility] Comment on above: Performed By: #### C RP, CMP ####[facility] Zcdxqzpptu[address] [place], [place] [address]Dr. Lizandro Hemphill Urea nitrogen [Mass/Vol] 13.0 mg/dL Normal 7.0-18.0 [facility] Comment on above: Performed By: #### C RP, CMP ####[facility] Ofntxwprqa[address] [place], [place] [address]Dr. Lizandro Hemphill Urea nitrogen/Creatinin e [Mass ratio] 16.2 mg/mg Normal [facility] Comment on above: Performed By: #### C RP, CMP ####[facility] Cbcyhgcnwj35[address] [place] [address]Dr. Lizandro Hemphill PROTIMEon 06-28-2022 INR Coag (PPP) [Relative time] 1.39 {INR} Normal [facility] Comment on above: Performed By: #### P T ####[facility] Irgrgvneog[address] [place], [place] [address]Dr. Lizandro Hemphill INR GUIDELINES SEE BELOW Normal [facility] Comment on above: Result Comment: GUEVARA RED INR: 2.0 - 3.0 CONDITIONS NOT LISTED BELOW 2.5 - 3.5 FOR PROSTHETIC HEART VALVE REPLACEMENT 2.5 - 3.5 RECURRENT THROMBOSIS Performed By: #### P T ####[facility] Fxphhyzdcs95[address] [place] [id number] Hemphill PT Coag (PPP) [Time] 14.5 s Critically high 9.0-11.6 [facility] Comment on above: Performed By: #### P T ####[facility] Thnuynrxdb[address] [place], [place] [address]DrCiro Hemphill CBC AUTO DIFFon 06-27-2022 BASO # 0.1 103/ul Normal 0.0-0.1 [facility] Comment on above: Performed By: #### C BC ####[facility] Peabjmvexz[address] [place], [place] [address]DrCiro Hemphill Basophils/100 WBC (Bld) 1.1 % Normal 0.2-2.0 [facility] Comment on above: Performed By: #### C BC ####[facility] Ecsyhnbajq64[address] [place], [place] [address]Dr. Lizandro Hemphill EO # 0.1 103/ul Normal 0.0-0.7 [facility] Comment on above: Performed By: #### C BC ####[facility] Nkygscdflv97[address] [place], [place] [address]Dr. Lizandro Hemphill Eosinophils/100 WBC (Bld) 1.3 % Normal 0.9-7.0 [facility] Comment on above: Performed By: #### C BC ####[facility] Ymfjkqzlfs[address] [place], [place] [address]DrCiro Hemphill Erythrocyte distribution width (RBC) [Ratio] 19.8 % Critically high 11.0-15.0 [facility] Comment on above: Performed By: #### C BC ####[facility] Oukerdfkmk[address] [place], [place] [address]DrCiro Hemphill Hematocrit (Bld) [Volume fraction] 34.4 % Critically low 36.0-48.0 [facility] Comment on above: Performed By: #### C BC ####[facility] Xiwwdtwrlw22[address] [place] [address]Dr. Lizandro Hemphill Hemoglobin (Bld) [Mass/Vol] 11.1 g/dL Critically low 12.0-16.0 [facility] Comment on above: Performed By: #### C BC ####[facility] Bdhowvjhzn4408 [place] [address]Dr. Lizandro Hemphill IG # 0.01 10e3/ul Normal 0.00-0.03 [facility] Comment on above: Performed By: #### C BC ####[facility] Bzqzfoqapk5384 [place] [address]Dr. Lizandro Hemphill IG % 0.2 % Normal 0.0-0.5 [facility] Comment on above: Performed By: #### C BC ####[facility] Zsqtoxyjlz4[address] [place], [place] [address]Dr. Lizandro Hemphill LYMPH # 1.3 103/ul Normal 1.2-3.8 [facility] Comment on above: Performed By: #### C BC ####[facility] Tilxjgujqo69[address] [place], [place] [address]Dr. Lizandro Hemphill Lymphocytes/100 WBC (Bld) 24.6 % Normal 20.5-60.0 [facility] Comment on above: Performed By: #### C BC ####[facility] Maiutpefab[address] [place] [address]Dr. Lizandro Hemphill MANUAL DIFF REQ NO Normal [facility] Comment on above: Performed By: #### C BC ####[facility] Ofdyipvvlb7024 [place] [address]Dr. Lizandro Hemphill MCH (RBC) [Entitic mass] 27.4 pg Normal 26.7-34.0 [facility] Comment on above: Performed By: #### C BC ####[facility] Odtfpacjay4720 [place] [address]Dr. Lizandro Hemphill MCHC (RBC) [Mass/Vol] 32.3 g/dL Normal 29.9-35.2 [facility] Comment on above: Performed By: #### C BC ####[facility] Ntsiovdxlf4032 [place] [id number]. Lizandro Hemphill MCV (RBC) [Entitic vol] 84.9 fL Normal 81.0-99.0 [facility] Comment on above: Performed By: #### C BC ####[facility] Bhhwjjmhej4212 [place] [id number]. Lizandro Hemphill MONO # 0.8 103/ul Normal 0.3-0.8 [facility] Comment on above: Performed By: #### C BC ####[facility] Gxvrvjdfct6754 [place] [address]Dr. Lizandro Hemphill Monocytes/100 WBC (Bld) 13.9 % Critically high 1.7-12.0 [facility] Comment on above: Performed By: #### C BC ####[facility] Ahfgbpfifr[address] [place], [place] [address]Dr. Lizandro Hemphill NEUT # 3.2 103/ul Normal 1.4-6.5 [facility] Comment on above: Performed By: #### C BC ####[facility] Trkiqkxast28[address] [place], [place] [address]Dr. Lizandro Hemphill Neutrophils/100 WBC (Bld) 58.9 % Normal 43.0-75.0 [facility] Comment on above: Performed By: #### C BC ####[facility] Oyzwdfpsvi6174 [place] [address]Dr. Lizandro Hemphill Platelet mean volume (Bld) [Entitic vol] 10.6 fL Normal 9.5-13.5 [facility] Comment on above: Performed By: #### C BC ####[facility] Eotldafslo[address] [place], [place] [id number]. Lizandro Hemphill PLT 228 103/ul Normal 150-450 [facility] Comment on above: Performed By: #### C BC ####[facility] Zafcylhfgj5314 [place] [id number]. Shanikaannie Joby RBC 4.05 106/ul Critically low 4.20-5.40 [facility] Comment on above: Performed By: #### C BC ####[facility] Fmdspxmfnd3693 [place] [address]Dr. Lizandro Hemphill WBC 5.4 103/ul Normal 4.0-11.0 [facility] Comment on above: Performed By: #### C BC ####[facility] Tjttvuvbgi6190 [place] [address]Dr. Lizandro Hemphill CRPon 06-27-2022 CRP [Mass/Vol] mg/L Normal <=1.0 [facility] Comment on above: Performed By: #### C RP, CMP ####[facility] Slrvhlxnxx0545 [place] [address]Dr. Lizandro Hemphill PROF 14(COMP METB)on 023 Albumin [Mass/Vol] 2.9 g/dL Critically low 3.4-5.0 [facility] Comment on above: Performed By: #### C RP, CMP ####[facility] Bwzqpiftnm2394 [place] [address]Dr. Lizandro Hemphill Albumin/Globulin [Mass ratio] 0.9 {ratio} Normal [facility] Comment on above: Performed By: #### C RP, CMP ####[facility] Iwcqstgkft3587 [place] [address]Dr. Lizandro Hemphill ALP [Catalytic activity/Vol] 144 U/L Critically high 46-116 [facility] Comment on above: Performed By: #### C RP, CMP ####[facility] Ezivmjytll2870 [place] [address]Dr. Lizandro Hemphill ALT [Catalytic activity/Vol] 52 U/L Normal 14-59 [facility] Comment on above: Performed By: #### C RP, CMP ####[facility] Lgnfhnspkp0195 [place] [address]Dr. Lizandro Hemphill Anion gap [Moles/Vol] 11.5 mmol/L Normal [facility] Comment on above: Performed By: #### C RP, CMP ####[facility] Pnmwgjacgy8143 [place] [address]Dr. Lizandro Hemphill AST [Catalytic activity/Vol] 26 U/L Normal 15-37 [facility] Comment on above: Performed By: #### C RP, CMP ####[facility] Eahqlkuusl70[address] [place], [place] [address]Dr. Lizandro Hemphill Bilirubin [Mass/Vol] 0.3 mg/dL Normal 0.2-1.0 [facility] Comment on above: Performed By: #### C RP, CMP ####[facility] Krztwxsfmj8[address] [place], [place] [address]Dr. Lizandro Hemphill Calcium [Mass/Vol] 8.4 mg/dL Critically low 8.5-10.1 Th [facility] Comment on above: Performed By: #### C RP, CMP ####[facility] Zigygqpnbt36[address] [place], [place] [address]Dr. Shanikaannie Hemphill Chloride [Moles/Vol] 106 mmol/L Normal 98-107 [facility] Comment on above: Performed By: #### C RP, CMP ####[facility] Adzuoqwxzm7986[address] [place], [place] [address]Dr. Lizandro Hemphill CO2 [Moles/Vol] 28.2 mmol/L Normal 21.0-32.0 [facility] Comment on above: Performed By: #### C RP, CMP ####[facility] Eitlcniovk23[address] [place], [place] [address]Dr. Lizandro Hemphill Creatinine [Mass/Vol] 0.72 mg/dL Normal 0.55-1.02 [facility] Comment on above: Performed By: #### C RP, CMP ####[facility] Uzshlbxirl6[address] [place], [place] [address]Dr. Shanikaannie Joby EGFR-AF ARMENIAN >60 Normal >=60 [facility] Comment on above: Performed By: #### C RP, CMP ####[facility] Ocwzdpejid[address] [place], [place] [address]Dr. Lizandro Hemphill EGFR-NON AF ARMENIAN >60 Normal >=60 [facility] Comment on above: Performed By: #### C RP, CMP ####[facility] Ephbrlaohz1338[address] [place], [place] [address]Dr. Lizandro Hemphill Globulin (S) [Mass/Vol] 3.3 g/dL Normal [facility] Comment on above: Performed By: #### C RP, CMP ####[facility] Besucrqbjf203[address] [place], [place] [address]Dr. Lizandro Hemphill Glucose [Mass/Vol] 89 mg/dL Normal 74-106 [facility] Comment on above: Performed By: #### C RP, CMP ####[facility] Bijiiwpysh1437[address] [place], [place] [address]Dr. Lizandro Hemphill Potassium [Moles/Vol] 3.7 mmol/L Normal 3.5-5.1 [facility] Comment on above: Performed By: #### C RP, CMP ####[facility] Cglpobgkna64[address] [place], [place] [address]Dr. Lizandro Hemphill Protein [Mass/Vol] 6.2 g/dL Critically low 6.4-8.2 [facility] Comment on above: Performed By: #### C RP, CMP ####[facility] Izedpfygtv1613[address] [place], [place] [address]Dr. Lizandro Hemphill Sodium [Moles/Vol] 142 mmol/L Normal 136-145 [facility] Comment on above: Performed By: #### C RP, CMP ####[facility] Mgzdhvrtvg60[address] [place], [place] [address]Dr. Lizandro Hemphill Urea nitrogen [Mass/Vol] 13.0 mg/dL Normal 7.0-18.0 [facility] Comment on above: Performed By: #### C RP, CMP ####[facility] Nxpkkzujmb3432[address] [place], [place] [address]Dr. Lizandro Hemphill Urea nitrogen/Creatinin e [Mass ratio] 18.1 mg/mg Normal [facility] Comment on above: Performed By: #### C RP, CMP ####[facility] Lnfssjqmtf260[address] [place], [place] [address]Dr. Shanikaannie Joby PROTIMEon 06-27-2022 INR Coag (PPP) [Relative time] 1.20 {INR} Normal [facility] Comment on above: Performed By: #### P T ####[facility] Swgydkozyf4[address] [place], [place] [address]DrCiro Hemphill INR GUIDELINES SEE BELOW Normal [facility] Comment on above: Result Comment: GUEVARA RED INR: 2.0 - 3.0 CONDITIONS NOT LISTED BELOW 2.5 - 3.5 FOR PROSTHETIC HEART VALVE REPLACEMENT 2.5 - 3.5 RECURRENT THROMBOSIS Performed By: #### P T ####[facility] Pjircrcwtj7[address] [place], [place] [address]Dr. Lizandro Hemphill PT Coag (PPP) [Time] 12.6 s Critically high 9.0-11.6 [facility] Comment on above: Performed By: #### P T ####[facility] Axuudejbjg0824[address] [place], [place] [address]DrCiro Hemphill AMYLASEon 06-26-2022 Amylase [Catalytic activity/Vol] 73 U/L Normal 25-115 [facility] Comment on above: Performed By: #### C MP, ALICIA, LIPA ####[facility] Uegncyoywg[address] [place], [place] [address]DrCiro Hemphill CBC AUTO DIFFon 06-26-2022 BASO # 0.1 103/ul Normal 0.0-0.1 [facility] Comment on above: Performed By: #### C BC ####[facility] Gxkhusaoch[address] [place], [place] [address]Dr. Lizandro Hemphill Basophils/100 WBC (Bld) 0.9 % Normal 0.2-2.0 [facility] Comment on above: Performed By: #### C BC ####[facility] Gfhzkwuqwb4[address] [place], [place] [address]DrCiro Hemphill EO # 0.0 103/ul Normal 0.0-0.7 [facility] Comment on above: Performed By: #### C BC ####[facility] Qevqncvvmv80[address] [place], [place] [address]DrCiro Hemphill Eosinophils/100 WBC (Bld) 0.1 % Critically low 0.9-7.0 [facility] Comment on above: Performed By: #### C BC ####[facility] Wqxuptuyjm1764[address] [place], [place] [address]DrCiro Hemphill Erythrocyte distribution width (RBC) [Ratio] 19.8 % Critically high 11.0-15.0 [facility] Comment on above: Performed By: #### C BC ####[facility] Ndxypvfiyy05[address] [place] [address]Dr. Lizandro Hemphill Hematocrit (Bld) [Volume fraction] 39.1 % Normal 36.0-48.0 [facility] Comment on above: Performed By: #### C BC ####[facility] Tizrbpeuwu55[address] [place] [address]Dr. Lizandro Hemphill Hemoglobin (Bld) [Mass/Vol] 12.6 g/dL Normal 12.0-16.0 [facility] Comment on above: Performed By: #### C BC ####[facility] Anviuoxjqx8668 [place] [address]Dr. Lizandro Joby IG # 0.04 10e3/ul Critically high 0.00-0.03 [facility] Comment on above: Performed By: #### C BC ####[facility] Orvfngwwmr[address] [place], [place] [address]Dr. Shanikaannie Hemphill IG % 0.5 % Normal 0.0-0.5 [facility] Comment on above: Performed By: #### C BC ####[facility] Vzkouwmbms5220 [place] [address]Dr. Lizandro Joby LYMPH # 1.0 103/ul Critically low 1.2-3.8 [facility] Comment on above: Performed By: #### C BC ####[facility] Qfjqtjsnmp34[address] [place], [place] [address]DrCiro Shanikaannie Hemphill Lymphocytes/100 WBC (Bld) 12.9 % Critically low 20.5-60.0 [facility] Comment on above: Performed By: #### C BC ####[facility] Bbrnbtnrza6[address] [place], [place] [address]DrCiro Shanikaannie Hemphill MANUAL DIFF REQ NO Normal [facility] Comment on above: Performed By: #### C BC ####[facility] Zgpxurgzkc[address] [place], [place] [address]Dr. Lizandro Hemphill MCH (RBC) [Entitic mass] 27.2 pg Normal 26.7-34.0 [facility] Comment on above: Performed By: #### C BC ####[facility] Tuzvmphzhe2[address] [place] [address]Dr. Lizandro Hemphill MCHC (RBC) [Mass/Vol] 32.2 g/dL Normal 29.9-35.2 [facility] Comment on above: Performed By: #### C BC ####[facility] Vovylmgphz[address]22[address] [place], [place] [address]Dr. Lizandro Hemphill MCV (RBC) [Entitic vol] 84.3 fL Normal 81.0-99.0 [facility] Comment on above: Performed By: #### C BC ####[facility] Wasuhsrhxe[address] [place], [place] [address]Dr. Lizandro Joby MONO # 0.8 103/ul Normal 0.3-0.8 [facility] Comment on above: Performed By: #### C BC ####[facility] Sdhvcpdgow88[address] [place], [place] [address]Dr. Lizandro Joby Monocytes/100 WBC (Bld) 10.2 % Normal 1.7-12.0 [facility] Comment on above: Performed By: #### C BC ####[facility] Fajcpjgkks6[address] [place], [place] [address]Dr. Lizandro Hemphill NEUT # 5.9 103/ul Normal 1.4-6.5 [facility] Comment on above: Performed By: #### C BC ####[facility] Ljxvhdmleo[address] [place], [place] [address]Dr. Lizandro Joby Neutrophils/100 WBC (Bld) 75.4 % Critically high 43.0-75.0 [facility] Comment on above: Performed By: #### C BC ####[facility] Kzphcfawfp10[address] [place], [place] [address]Dr. Lizandro Hemphill Platelet mean volume (Bld) [Entitic vol] 10.2 fL Normal 9.5-13.5 [facility] Comment on above: Performed By: #### C BC ####[facility] Uqxac[address]uc7907 [place], [place] [address]Jz. Lizandro Hemphill PLT 253 103/ul Normal 150-450 [facility] Comment on above: Performed By: #### C BC ####[facility] Samvidmgcz2983 [place], [place] [address]Oy. Lizandro Hemphill RBC 4.64 106/ul Normal 4.20-5.40 [facility] Comment on above: Performed By: #### C BC ####[facility] Vurgturaiv8245 [place], [place] [address]Ct. Lizandro Hemphill WBC 7.8 103/ul Normal 4.0-11.0 [facility] Comment on above: Performed By: #### C BC ####[facility] Udhphrvxnx9500 [place], [place] [address]Cf. Liz[address] CT ABD/PELVIS WO CONon 06-26 CT ABD/PELVIS WO CON Normal [facility] Covid-19 PCR (CVDTB)on SARS-CoV-2 (COVID-19) RNA VERITO+probe Ql (Unsp spec) Not detected Normal NOT DETECTED [facility] Comment on above: Result Comment: When [...] for this test is supported by the [place] of [employer] and [employer] Service's declaration that [...] be used). Performed By: #### C VDTBH ####[facility] Ctejgfeikd53[address] [place] [id number]. Lizandro Hemphill ER URINE PROFILEon 3 Bilirubin Ql (U) Negative Normal NEGATIVE [facility] Comment on above: Performed By: #### E RUR ####[facility] Hwzhkrbsor7[address] [place], [place] [address]Dr. Lizandro Hemphill Clarity (U) CLEAR Normal CLEAR [facility] Comment on above: Performed By: #### E RUR ####[facility] Kxopbwzclt[address] [place], [place] [address]Dr. Shanikaannie Hemphill Color (U) LT. YELLOW Normal YELLOW [facility] Comment on above: Performed By: #### E RUR ####[facility] Npuptsuvyw18[address] [place], [place] [address]Dr. Lizandro Hemphill ERUAHD A micrscopic examina tion will be performed if indicated. Normal [facility] Comment on above: Performed By: #### E RUR ####[facility] Srtalgjxmc94[address] [place], [place] [address]Dr. Shanikaannie Joby Glucose Ql (U) Negative Normal NEGATIVE [facility] Comment on above: Performed By: #### E RUR ####[facility] Haldgbalaq[address] [place], [place] [address]Dr. Lizandro Hemphill Hemoglobin Ql (U) Negative Normal NEGATIVE [facility] Comment on above: Performed By: #### E RUR ####[facility] Egqipbqxje064[address] [place], [place] [address]Dr. Lizandro Hemphill Ketones Ql (U) Negative Normal NEGATIVE [facility] Comment on above: Performed By: #### E RUR ####[facility] Izblprouio3032[address] [place], [place] [address]Dr. Lizandro Hemphill LEUKOCYTES Negative Normal NEGATIVE [facility] Comment on above: Performed By: #### E RUR ####[facility] Owudoifxvt4215[address] [place], [place] [address]Dr. Lizandro Hemphill Nitrite Ql (U) Negative Normal NEGATIVE [facility] Comment on above: Performed By: #### E RUR ####[facility] Ykxkqsaxdr[address] [place], [place] [address]Dr. Lizandro Hemphill pH (U) 7.5 [pH] Normal 5-9 [facility] Comment on above: Performed By: #### E RUR ####[facility] Hooewkopjv4[address] [place] [address]Dr. Lizandro Hemphill SPEC GRAVITY 1.010 Normal 1.005-<=1.025 [facility] Comment on above: Performed By: #### E RUR ####[facility] Tpzzlqliwr[address] [place], [place] [address]Dr. Lizandro Hemphill UA PROTEIN Negative Normal NEGATIVE/ TRACE [facility] Comment on above: Performed By: #### E RUR ####[facility] Myxbcmrzfh7[address] [place], [place] [address]Dr. Lizandro Hemphill UR MICRO IND NOT INDICATED Normal [facility] Comment on above: Performed By: #### E RUR ####[facility] Urvqneyput8033[address] [place], [place] [address]Dr. Lizandro Hemphill Urobilinogen Qn (U) 0.2 {Cassy'U}/dL Normal 0.2 - 1.0 [facility] Comment on above: Performed By: #### E RUR ####[facility] Whkenwxfzq7[address] [place], [place] [address]Dr. Lizandro Hemphill LACTATE/LACTIC ACIDon 2022 Lactate [Moles/Vol] 1.3 mmol/L Normal 0.4-2.0 [facility] Comment on above: Performed By: #### L ACT ####[facility] Plggrbnvqn63[address] [place], [place] [address]Dr. Lizandro Hemphill LIPASEon 06-26-2022 Lipase [Catalytic activity/Vol] 161.0 U/L Normal 73.0-393.0 [facility] Comment on above: Performed By: #### C ALICIA AVILA LIPA ####[facility] Izlbsgqfih[address] [place], [place] [address]Dr. Lizandro Hemphill PROF 14(COMP METB)on 023 Albumin [Mass/Vol] 3.9 g/dL Normal 3.4-5.0 [facility] Comment on above: Performed By: #### C ALICIA AVILA LIPA ####[facility] Zrqoboivmr2153 [place] [address]Dr. Lizandro Hemphill Albumin/Globulin [Mass ratio] 1.0 {ratio} Normal [facility] Comment on above: Performed By: #### C MP, ALICIA, LIPA ####[facility] Lyzfxrbjhs[address] [place] [address]Dr. Lizandro Joby ALP [Catalytic activity/Vol] 177 U/L Critically high 46-116 [facility] Comment on above: Performed By: #### C MP, ALICIA, LIPA ####[facility] Gzlglqoeki8[address] [place] [address]Dr. Shanikaannie Hemphill ALT [Catalytic activity/Vol] 83 U/L Critically high 14-59 [facility] Comment on above: Performed By: #### C MP, ALICIA, LIPA ####[facility] Bdqjnnjyay4[address] [place], [place] [address]Dr. Lizandro Hemphill Anion gap [Moles/Vol] 10.7 mmol/L Normal [facility] Comment on above: Performed By: #### C MP, ALICIA, LIPA ####[facility] Fvmfxhkhrh[address] [place], [place] [address]Dr. Shanikaannie Hemphill AST [Catalytic activity/Vol] 53 U/L Critically high 15-37 [facility] Comment on above: Performed By: #### C MP, ALICIA, LIPA ####[facility] Sfrwuzvgqo[address] [place], [place] [address]Dr. Lizandro Hemphill Bilirubin [Mass/Vol] 0.4 mg/dL Normal 0.2-1.0 [facility] Comment on above: Performed By: #### C MP, ALICIA, LIPA ####[facility] Wfoyenujgx8[address] [place] [address]Dr. Lizandro Hemphill Calcium [Mass/Vol] 11.2 mg/dL Critically high 8.5-10.1 [facility] Comment on above: Performed By: #### C MP, ALICIA, LIPA ####[facility] Jtblurdgmz[address] [place], [place] [address]Dr. Lizandro Hemphill Chloride [Moles/Vol] 101 mmol/L Normal 98-107 [facility] Comment on above: Performed By: #### C ALICIA AVILA, LIPA ####[facility] Tljptmufth[address] [place] [address]Dr. Lizandro Hemphill CO2 [Moles/Vol] 29.5 mmol/L Normal 21.0-32.0 [facility] Comment on above: Performed By: #### C MARGARITA ALICIA, LIPA ####[facility] [address]rs[address] [place] [address]Dr. Lizandro Hemphill Creatinine [Mass/Vol] 0.79 mg/dL Normal 0.55-1.02 [facility] Comment on above: Performed By: #### C ALICIA AVILA, LIPA ####[facility] [address] [place] [address]Dr. Lizandro Hemphill EGFR-AF ARMENIAN >60 Normal >=60 [facility] Comment on above: Performed By: #### C ALICIA AVILA, LIPA ####[facility] Gljlxyxdra[address] [place] [address]Dr. Lizandro Hemphill EGFR-NON AF ARMENIAN >60 Normal >=60 [facility] Comment on above: Performed By: #### C ALICIA AVILA, LIPA ####[facility] Ykdkobmpeq[address] [place] [address]Dr. Lizandro Hemphill Globulin (S) [Mass/Vol] 4.0 g/dL Normal [facility] Comment on above: Performed By: #### C ALICIA AVILA, LIPA ####[facility] Quvptgrzso[address] [place] [address]Dr. Lizandro Hemphill Glucose [Mass/Vol] 96 mg/dL Normal 74-106 [facility] Comment on above: Performed By: #### C ALICIA AVILA, LIPA ####[facility] Fqcdgkmomq[address] [place] [address]Dr. Lizandro Hemphill Potassium [Moles/Vol] 4.2 mmol/L Normal 3.5-5.1 [facility] Comment on above: Performed By: #### C MARGARITA ALICIA, LIPA ####[facility] Rzohvicqub[address] [place] [address]Dr. Lizandro Hemphill Protein [Mass/Vol] 7.9 g/dL Normal 6.4-8.2 [facility] Comment on above: Performed By: #### C ALICIA AVILA LIPA ####[facility] Vbumfugmnq32[address] [place] [address]Dr. Lizandro Hemphill Sodium [Moles/Vol] 137 mmol/L Normal 136-145 [facility] Comment on above: Performed By: #### C ALICIA AVILA LIPA ####[facility] Jvunyylkgn[address] [place] [address]Dr. Lizandro Hemphill Urea nitrogen [Mass/Vol] 27.0 mg/dL Critically high 7.0-18.0 [facility] Comment on above: Performed By: #### C ALICIA AVILA LIPA ####[facility] Lfxahdwwss[address] [place], [place] [address]Dr. Lizandro Hemphill Urea nitrogen/Creatinin e [Mass ratio] 34.2 mg/mg Normal [facility] Comment on above: Performed By: #### C ALICIA AVILA LIPA ####[facility] Gkrbnttiwm[address] [place] [address]Dr. Lizandro Hemphill PROTIMEon 06-26-2022 INR Coag (PPP) [Relative time] 1.07 {INR} Normal [facility] Comment on above: Performed By: #### P T ####[facility] Wkdlbjgbqu[address] [place], [place] [address]Dr. Lizandro Hemphill INR GUIDELINES SEE BELOW Normal [facility] Comment on above: Result Comment: GUEVARA RED INR: 2.0 - 3.0 CONDITIONS NOT LISTED BELOW 2.5 - 3.5 FOR PROSTHETIC HEART VALVE REPLACEMENT 2.5 - 3.5 RECURRENT THROMBOSIS Performed By: #### P T ####[facility] Aifijdzvqm[address] [place], [place] [address]Dr. Lizandro Hemphill PT Coag (PPP) [Time] 11.3 s Normal 9.0-11.6 [facility] Comment on above: Performed By: #### P T ####[facility] Milxpftmsi119[address] [place], [place] [address]DrCiro Hemphill INR Coag (PPP) [Relative time] 0.96 {INR} Normal [facility] Comment on above: Performed By: #### P T ####[facility] Slnshmikpr5[address] [place] [address]DrCiro Hemphill INR GUIDELINES SEE BELOW Normal [facility] Comment on above: Result Comment: GUEVARA RED INR: 2.0 - 3.0 CONDITIONS NOT LISTED BELOW 2.5 - 3.5 FOR PROSTHETIC HEART VALVE REPLACEMENT 2.5 - 3.5 RECURRENT THROMBOSIS Performed By: #### P T ####[facility] Gbgpougylv95[address] [place] [address]Dr. Lizandro Hemphill PT Coag (PPP) [Time] 10.2 s Normal 9.0-11.6 [facility] Comment on above: Performed By: #### P T ####[facility] Ejjabyorsu0123[address] [place], [place] [address]DrCiro Hemphill C. DIFF PCRon 05-31-2022 C. DIFFICILE PCR Negative Normal NEGATIVE [facility] Comment on above: Performed By: #### C DIFPOC ####[facility] Vepmiwpgxm5[address] [place], [place] [address]DriCro Hemphill CBC AUTO DIFFon 05-31-2022 BASO # 0.0 103/ul Normal 0.0-0.1 [facility] Comment on above: Performed By: #### C BC ####[facility] Rakoxuiarn[address] [place], [place] [address]DrCiro Hemphill Basophils/100 WBC (Bld) 0.2 % Normal 0.2-2.0 [facility] Comment on above: Performed By: #### C BC ####[facility] Xglgsfkkev09[address] [place] [address]DrCiro Hemphill EO # 0.0 103/ul Normal 0.0-0.7 [facility] Comment on above: Performed By: #### C BC ####[facility] Dqqdbiofze5426[address] [place], [place] [address]DrCiro Hemphill Eosinophils/100 WBC (Bld) 0.1 % Critically low 0.9-7.0 [facility] Comment on above: Performed By: #### C BC ####[facility] Pqczqubgwt6[address] [place] [address]Dr. Lizandro Hemphill Erythrocyte distribution width (RBC) [Ratio] 19.2 % Critically high 11.0-15.0 [facility] Comment on above: Performed By: #### C BC ####[facility] Fuomvjgsco43[address] [place] [address]Dr. Lizandro Hemphill Hematocrit (Bld) [Volume fraction] 31.1 % Critically low 36.0-48.0 [facility] Comment on above: Performed By: #### C BC ####[facility] Begiuinwci3314[address] [place], [place] [address]Dr. Lizandro Hemphill Hemoglobin (Bld) [Mass/Vol] 10.1 g/dL Critically low 12.0-16.0 [facility] Comment on above: Performed By: #### C BC ####[facility] Lycftwwpgn40[address] [place], [place] [address]DrCiro Hemphill IG # 0.07 10e3/ul Critically high 0.00-0.03 [facility] Comment on above: Performed By: #### C BC ####[facility] Tgocugcruu8[address] [place], [place] [address]DrCiro Hemphill IG % 0.6 % Critically high 0.0-0.5 [facility] Comment on above: Performed By: #### C BC ####[facility] Mdhlcrkqed5109[address] [place], [place] [address]DrCiro Hemphill LYMPH # 0.6 103/ul Critically low 1.2-3.8 [facility] Comment on above: Performed By: #### C BC ####[facility] Dzrcpjcmex[address] [place], [place] [address]DrCiro Hemphill Lymphocytes/100 WBC (Bld) 5.1 % Critically low 20.5-60.0 [facility] Comment on above: Performed By: #### C BC ####[facility] Wjbhefwiwq7168[address] [place], [place] [address]Dr. Lizandro Hemphill MANUAL DIFF REQ NO Normal [facility] Comment on above: Performed By: #### C BC ####[facility] Hnnsrxgtsl09[address] [place] [address]DrCiro Hemphill MCH (RBC) [Entitic mass] 27.8 pg Normal 26.7-34.0 [facility] Comment on above: Performed By: #### C BC ####[facility] Xcivefsfwz95[address] [place], [place] [address]DrCiro Hemphill MCHC (RBC) [Mass/Vol] 32.5 g/dL Normal 29.9-35.2 [facility] Comment on above: Performed By: #### C BC ####[facility] Khqhspbhis4139[address] [place], [place] [address]DrCiro Hemphill MCV (RBC) [Entitic vol] 85.7 fL Normal 81.0-99.0 [facility] Comment on above: Performed By: #### C BC ####[facility] Lemqmichks8911[address] [place], [place] [address]DrCiro Hemphill MONO # 0.9 103/ul Critically high 0.3-0.8 [facility] Comment on above: Performed By: #### C BC ####[facility] Exqwqxqcyx05[address] [place], [place] [address]DrCiro Hemphill Monocytes/100 WBC (Bld) 7.4 % Normal 1.7-12.0 [facility] Comment on above: Performed By: #### C BC ####[facility] Vaehsqaera8887[address] [place], [place] [address]DrCiro Hemphill NEUT # 10.5 103/ul Critically high 1.4-6.5 [facility] Comment on above: Performed By: #### C BC ####[facility] Nqbhkxbnve2214[address] [place], [place] [address]DrCiro Hemphill Neutrophils/100 WBC (Bld) 86.6 % Critically high 43.0-75.0 [facility] Comment on above: Performed By: #### C BC ####[facility] Kgphekddgy[address] [place], [place] [address]DrCiro Hemphill Platelet mean volume (Bld) [Entitic vol] 10.9 fL Normal 9.5-13.5 [facility] Comment on above: Performed By: #### C BC ####[facility] Fsnvqrccvg6[address] [place] [address]Dr. Lizandro Hemphill PLT 230 103/ul Normal 150-450 [facility] Comment on above: Performed By: #### C BC ####[facility] Xsgxjjkwcx9[address] [place] [address]Dr. Shanikaannie Hemphill RBC 3.63 106/ul Critically low 4.20-5.40 [facility] Comment on above: Performed By: #### C BC ####[facility] Bmoxmtvfgo9575[address] [place], [place] [address]Dr. Shanikaannie Hemphill WBC 12.1 103/ul Critically high 4.0-11.0 [facility] Comment on above: Performed By: #### C BC ####[facility] Bhknvvbysr3528[address] [place], [place] [address]Dr. Lizandro Hemphill GI PANEL (PCR)on 05-31-2022 Adenovirus F 40/41 Not detected Normal NOT DETECTED [facility] Comment on above: Performed By: #### G IPANEL ####[facility] Cirauivlqz38[address] [place], [place] [address]Dr. Lizandro Hemphill Astrovirus Not detected Normal NOT DETECTED [facility] Comment on above: Performed By: #### G IPANEL ####[facility] Fdtvmocnop8378[address] [place], [place] [address]Dr. Lizandro Hemphill C. Diff toxin A/B Not detected Normal NOT DETECTED [facility] Comment on above: Performed By: #### G IPANEL ####[facility] Thkutvrsid5584[address] [place], [place] [address]Dr. Lizandro Hemphill Campylobacter Not detected Normal NOT DETECTED [facility] Comment on above: Performed By: #### G IPANEL ####[facility] Tcriatxgmz176[address] [place], [place] [address]Dr. Lizandro Hemphill Cryptosporidium Not detected Normal NOT DETECTED [facility] Comment on above: Performed By: #### G IPANEL ####[facility] Quzntfougx5[address] [place] [id number]. Lizandro Hemphill Cyclos. Cayetanensis Not detected Normal NOT DETECTED [facility] Comment on above: Performed By: #### G IPANEL ####[facility] Ancvbuebjs0575[address] [place], [place] [address]Dr. Lizandro Hemphill E. Coli O157 Not Applicable Normal Not Applicable [facility] Comment on above: Performed By: #### G IPANEL ####[facility] Ihiineiurm23[address] [place], [place] [address]Dr. Lizandro Hemphill E. histolytica Not detected Normal NOT DETECTED [facility] Comment on above: Performed By: #### G IPANEL ####[facility] Prevrqxmwy0787[address] [place], [place] [address]Dr. Lizandro Hemphill EAEC Not detected Normal NOT DETECTED [facility] Comment on above: Performed By: #### G IPANEL ####[facility] Hqqqqexcfe737[address] [place], [place] [address]Dr. Lizandro Hemphill EIEC Not detected Normal NOT DETECTED [facility] Comment on above: Performed By: #### G IPANEL ####[facility] Orjdiilzzm[address] [place], [place] [address]Dr. Lizandro Hemphill EPEC Not detected Normal NOT DETECTED [facility] Comment on above: Performed By: #### G IPANEL ####[facility] Vgeuchlvzm3896[address] [place], [place] [address]Dr. Lizandro Hemphill ETEC Not detected Normal NOT DETECTED [facility] Comment on above: Performed By: #### G IPANEL ####[facility] Vbjljovprz3923[address] [place], [place] [address]Dr. Lizandro Hemphill G. Lamblia Not detected Normal NOT DETECTED [facility] Comment on above: Performed By: #### G IPANEL ####[facility] Htgeqcfwrh[address] [place], [place] [address]Dr. Lizandro Hemphill GIPANEL CONTROLS PASSED Normal [facility] Comment on above: Performed By: #### G IPANEL ####[facility] Zmdqwieqwa9578[address] [place], [place] [address]Dr. Lizandro MAGALLON CARIE HEADER GI PANEL BACTERIA Normal T [facility] Comment on above: Performed By: #### G IPANEL ####[facility] Nmyfmlwkon9[address] [place] [address]Dr. Lizandro Joby MAGALLONHD ECOLI GI PANEL DIARRHEAGEN IC E.COLI / SHIGELLA Normal [facility] Comment on above: Performed By: #### G IPANEL ####[facility] Wvukgnnuuq4899[address] [place], [place] [address]Dr. Shanikaannie Joby GIPFRANCESHD INFO SEE BELOW Normal [facility] Comment on above: Result Comment: EAEC - Enteroaggregative E. Coli EPEC- Enteropathogenic E. Coli ETEC- Enterotoxigenic E. Coli lt/st STEC- Shigella-like toxin-producing E. Coli stx1/stx2 EIEC- Shigella/Enteroinvasive E. Coli Performed By: #### G IPANEL ####[facility] Yfwupipmyf232[address] [place], [place] [address]Dr. Lizandro Hemphill GIPFRANCESHD PARASITES GI PANEL PARASITES Normal [facility] Comment on above: Performed By: #### G IPANEL ####[facility] Dykmluyive0424[address] [place], [place] [address]Dr. Lizandro Hemphill GIPFRANCESHD VIRUS GI PANEL VIRUSES Normal [facility] Comment on above: Performed By: #### G IPANEL ####[facility] Mrbfsbnuhn2988[address] [place], [place] [address]Dr. Lizandro Hemphill Norovirus GI/GII Not detected Normal NOT DETECTED [facility] Comment on above: Performed By: #### G IPANEL ####[facility] Dtpkaqtfci0435[address] [place], [place] [address]Dr. Lizandro Hemphill P. Shigelloides Not detected Normal NOT DETECTED [facility] Comment on above: Performed By: #### G IPANEL ####[facility] Oviztvoawl7412[address] [place], [place] [address]Dr. Lizandro Hemphill Rotavirus A Not detected Normal NOT DETECTED [facility] Comment on above: Performed By: #### G IPANEL ####[facility] Ipvdrsvepy[address] [place], [place] [id number]. Shanikaannie Hemphill Salmonella Not detected Normal NOT DETECTED [facility] Comment on above: Performed By: #### G IPANEL ####[facility] Fbqtzsnaps3534[address] [place], [place] [address]Dr. Lizandro Hemphill Sapovirus Not detected Normal NOT DETECTED [facility] Comment on above: Performed By: #### G IPANEL ####[facility] Pfqmfsuzew8848[address] [place], [place] [address]Dr. Lizandro Hemphill STEC Not detected Normal NOT DETECTED [facility] Comment on above: Performed By: #### G IPANEL ####[facility] Mgzvhlvfth7395[address] [place], [place] [address]Dr. Lizandro Hemphill Vibrio Not detected Normal NOT DETECTED [facility] Comment on above: Performed By: #### G IPANEL ####[facility] Wuedddfdra3056[address] [place], [place] [address]Dr. Lizandro Hemphill Vibrio Cholera Not detected Normal NOT DETECTED [facility] Comment on above: Performed By: #### G IPANEL ####[facility] Vfymbkysmg024[address] [place], [place] [address]Dr. Lizandro Hemphill Y. Enterocolitica Not detected Normal NOT DETECTED [facility] Comment on above: Performed By: #### G IPANEL ####[facility] Bvngdryqfy0914[address] [place], [place] [address]Dr. Lizandro Hemphill PROF 14(COMP METB)on 023 Albumin [Mass/Vol] 2.4 g/dL Critically low 3.4-5.0 Th [facility] Comment on above: Performed By: #### C MP ####[facility] Vezodzeavr[address] [place], [place] [address]Dr. Lizandro Hemphill Albumin/Globulin [Mass ratio] 0.9 {ratio} Normal [facility] Comment on above: Performed By: #### C MP ####[facility] Kporxxiqka[address] [place], [place] [address]Dr. Lizandro Hemphill ALP [Catalytic activity/Vol] 77 U/L Normal 46-116 [facility] Comment on above: Performed By: #### C MP ####[facility] Njmmsapyff67[address] [place] [id number]. Lizandro Hemphill ALT [Catalytic activity/Vol] 20 U/L Normal 14-59 [facility] Comment on above: Performed By: #### C MP ####[facility] Pwdeiynxxh5[address] [place] [id number]. Lizandro Hemphill Anion gap [Moles/Vol] 10.9 mmol/L Normal [facility] Comment on above: Performed By: #### C MP ####[facility] Igzkgxyvke5940 [place] [id number]. Lizandro Hemphill AST [Catalytic activity/Vol] 15 U/L Normal 15-37 [facility] Comment on above: Performed By: #### C MP ####[facility] Dpospbkuif3303 [place] [address]Dr. Lizandro Hemphill Bilirubin [Mass/Vol] 0.2 mg/dL Normal 0.2-1.0 [facility] Comment on above: Performed By: #### C MP ####[facility] Ecfeuenckc8[address] [place] [phone]. Lizandro Hemphill Calcium [Mass/Vol] 7.8 mg/dL Critically low 8.5-10.1 Th [facility] Comment on above: Performed By: #### C MP ####[facility] Aslqzvhhlw[address] [place], [place] [address]Dr. Lizandro Hemphill Chloride [Moles/Vol] 106 mmol/L Normal 98-107 [facility] Comment on above: Performed By: #### C MP ####[facility] Vlytufhnfn1744 [place] [id number]. Lizandro Hemphill CO2 [Moles/Vol] 25.3 mmol/L Normal 21.0-32.0 [facility] Comment on above: Performed By: #### C MP ####[facility] Ehxrlylwxl29[address] [place] [id number]. Lizandro Hemphill Creatinine [Mass/Vol] 1.07 mg/dL Critically high 0.55-1.02 [facility] Comment on above: Performed By: #### C MP ####[facility] Yfqzxhukkr22[address] [place] [phone]. Lizandro Hemphill EGFR-AF ARMENIAN >60 Normal >=60 [facility] Comment on above: Performed By: #### C MP ####[facility] Aywpeqvjuv37[address] [place] [address]Dr. Lizandro Hemphill EGFR-NON AF ARMENIAN 52 mL/min/1.73m2 Critically low >=60 [facility] Comment on above: Performed By: #### C MP ####[facility] Htnrcwkgtk7535 [place] [address]Dr. Lizandro Hemphill Globulin (S) [Mass/Vol] 2.8 g/dL Normal [facility] Comment on above: Performed By: #### C MP ####[facility] Xposxtlied9934 [place] [address]Dr. Lizandro Hemphill Glucose [Mass/Vol] 254 mg/dL Critically high 74-106 [facility] Comment on above: Performed By: #### C MP ####[facility] Cqvlkaxvgw[address] [place], [place] [address]Dr. Lizandro Hemphill Potassium [Moles/Vol] 3.2 mmol/L Critically low 3.5-5.1 [facility] Comment on above: Performed By: #### C MP ####[facility] Cxubhvpavn1247[address] [place], [place] [address]Dr. Lizandro Hemphill Protein [Mass/Vol] 5.2 g/dL Critically low 6.4-8.2 [facility] Comment on above: Performed By: #### C MP ####[facility] Oknojnnnyv[address] [place] [address]Dr. Lizandro Hemphill Sodium [Moles/Vol] 139 mmol/L Normal 136-145 [facility] Comment on above: Performed By: #### C MP ####[facility] Zadyhznxfu4147[address] [place], [place] [address]Dr. Lizandro Hemphill Urea nitrogen [Mass/Vol] 9.0 mg/dL Normal 7.0-18.0 [facility] Comment on above: Performed By: #### C MP ####[facility] Kiicapwdvf0175[address] [place], [place] [address]Dr. Lizandro Hemphill Urea nitrogen/Creatinin e [Mass ratio] 8.4 mg/mg Normal [facility] Comment on above: Performed By: #### C MP ####[facility] Aobkqdrsnb[address] [place], [place] [address]DrCiro Hemphill PROTIMEon 05-31-2022 INR Coag (PPP) [Relative time] 1.94 {INR} Normal [facility] Comment on above: Performed By: #### P T ####[facility] Jqlxzpptvg1729[address] [place], [place] [address]Dr. Lizandro Hemphill INR GUIDELINES SEE BELOW Normal [facility] Comment on above: Result Comment: GUEVARA RED INR: 2.0 - 3.0 CONDITIONS NOT LISTED BELOW 2.5 - 3.5 FOR PROSTHETIC HEART VALVE REPLACEMENT 2.5 - 3.5 RECURRENT THROMBOSIS Performed By: #### P T ####[facility] Icvfuazwmd508[address] [place], [place] [address]DrCiro Hemphill PT Coag (PPP) [Time] 19.8 s Critically high 9.0-11.6 [facility] Comment on above: Performed By: #### P T ####[facility] Ahuvfxxtbr17[address] [place], [place] [address]DrCiro Hemphill CBC AUTO DIFFon 05-30-2022 BASO # 0.0 103/ul Normal 0.0-0.1 [facility] Comment on above: Performed By: #### C BC ####[facility] Gjqxllqhxm[address] [place], [place] [address]DrCiro Hemphill Basophils/100 WBC (Bld) 0.3 % Normal 0.2-2.0 [facility] Comment on above: Performed By: #### C BC ####[facility] Rctsklpyrl3652[address] [place], [place] [address]DrCiro Hemphill EO # 0.0 103/ul Normal 0.0-0.7 [facility] Comment on above: Performed By: #### C BC ####[facility] Sdaicexjrg1885[address] [place], [place] [address]DrCiro Hemphill Eosinophils/100 WBC (Bld) 0.0 % Critically low 0.9-7.0 [facility] Comment on above: Performed By: #### C BC ####[facility] Vvjntnkmro6662[address] [place], [place] [address]Dr. Lizandro Hemphill Erythrocyte distribution width (RBC) [Ratio] 19.2 % Critically high 11.0-15.0 [facility] Comment on above: Performed By: #### C BC ####[facility] Iinldraaho3174[address] [place], [place] [address]Dr. Lizandro Hemphill Hematocrit (Bld) [Volume fraction] 35.5 % Critically low 36.0-48.0 [facility] Comment on above: Performed By: #### C BC ####[facility] Uspgrqhfdg1036[address] [place], [place] [address]Dr. Lizandro Hemphill Hemoglobin (Bld) [Mass/Vol] 11.3 g/dL Critically low 12.0-16.0 [facility] Comment on above: Performed By: #### C BC ####[facility] Lmxfmcwwwf6637[address] [place], [place] [address]Dr. Lizandro Hemphill IG # 0.03 10e3/ul Normal 0.00-0.03 [facility] Comment on above: Performed By: #### C BC ####[facility] Jlrapqsjcd3168[address] [place], [place] [address]Dr. Lizandro Hemphill IG % 0.4 % Normal 0.0-0.5 [facility] Comment on above: Performed By: #### C BC ####[facility] Hhvyrbemql4[address] [place], [place] [address]Dr. Lizandro Hemphill LYMPH # 0.3 103/ul Critically low 1.2-3.8 [facility] Comment on above: Performed By: #### C BC ####[facility] Mgoayuaqry7167[address] [place], [place] [address]Dr. Lizandro Hemphill Lymphocytes/100 WBC (Bld) 3.9 % Critically low 20.5-60.0 [facility] Comment on above: Performed By: #### C BC ####[facility] [address]wzpsxlhy[address] [place], [place] [id number]. Shanikaannie Hemphill MANUAL DIFF REQ NO Normal [facility] Comment on above: Performed By: #### C BC ####[facility] W[address]qlrxkif[address] [place] [address]Dr. Lizandro Joby MCH (RBC) [Entitic mass] 26.9 pg Normal 26.7-34.0 [facility] Comment on above: Performed By: #### C BC ####[facility] Nnrehsqwyt[address] [place], [place] [address]Dr. Lizandro Joby MCHC (RBC) [Mass/Vol] 31.8 g/dL Normal 29.9-35.2 [facility] Comment on above: Performed By: #### C BC ####[facility] Trmwkdwuey[address] [place], [place] [address]Dr. Lizandro Joby MCV (RBC) [Entitic vol] 84.5 fL Normal 81.0-99.0 [facility] Comment on above: Performed By: #### C BC ####[facility] Nymcxflmkq[address] [place], [place] [address]Dr. Lizandro Joby MONO # 0.1 103/ul Critically low 0.3-0.8 [facility] Comment on above: Performed By: #### C BC ####[facility] Mljfnfmlea[address] [place], [place] [address]Dr. Lizandro Hemphill Monocytes/100 WBC (Bld) 1.0 % Critically low 1.7-12.0 [facility] Comment on above: Performed By: #### C BC ####[facility] Hsapyyrely033[address] [place], [place] [address]Dr. Lizandro Hemphill NEUT # 6.5 103/ul Normal 1.4-6.5 [facility] Comment on above: Performed By: #### C BC ####[facility] Mjohanpjhi79[address] [place], [place] [address]Dr. Lizandro Hemphill Neutrophils/100 WBC (Bld) 94.4 % Critically high 43.0-75.0 [facility] Comment on above: Performed By: #### C BC ####[facility] Qxcpzopprq1506 [place] [address]Dr. Lizandro Hemphill Platelet mean volume (Bld) [Entitic vol] 10.3 fL Normal 9.5-13.5 [facility] Comment on above: Performed By: #### C BC ####[facility] Ujuryzohsn8483 [place] [address]Dr. Lizandro Hemphill PLT 248 103/ul Normal 150-450 [facility] Comment on above: Performed By: #### C BC ####[facility] Udzyfvszzo8835 [place] [address]Dr. Lizandro Hemphill RBC 4.20 106/ul Normal 4.20-5.40 [facility] Comment on above: Performed By: #### C BC ####[facility] Adcrzatzta[address] [place], [place] [address]Dr. Lizandro Hemphill WBC 6.9 103/ul Normal 4.0-11.0 [facility] Comment on above: Performed By: #### C BC ####[facility] Bukhapkgor25[address] [place], [place] [address]Dr. Lizandro Hemphill CT ABD/PELV W CONon 05-31-[address] ABD/PELV W CON Normal [facility] PRBC LEUKOREDUCEDon 05-31-19 23 PRBC LEUKOREDUCED Normal [facility] Comment on above: Performed By: #### P RBC ####[facility] Gpagkuhmsu[address] [place], [place] [address]Dr. Lizandro Hemphill PROF 14(COMP METB)on 023 Albumin [Mass/Vol] 2.8 g/dL Critically low 3.4-5.0 Th e [facility] Comment on above: Performed By: #### C MP ####[facility] Rzqlobhwpy7218[address] [place], [place] [address]Dr. Lizandro Hemphill Albumin/Globulin [Mass ratio] 0.8 {ratio} Normal [facility] Comment on above: Performed By: #### C MP ####[facility] Xnwfwhjcgc1827[address] [place], [place] [address]Dr. Lizandro Hemphill ALP [Catalytic activity/Vol] 100 U/L Normal 46-116 [facility] Comment on above: Performed By: #### C MP ####[facility] Hamxricmlq0386 [place] [id number]. Lizandro Hemphill ALT [Catalytic activity/Vol] 28 U/L Normal 14-59 [facility] Comment on above: Performed By: #### C MP ####[facility] Jnabpdywvq0532 [place] [id number]. Lizandro Hemphill Anion gap [Moles/Vol] 11.5 mmol/L Normal [facility] Comment on above: Performed By: #### C MP ####[facility] Kfwrulvyfu7783 [place] [id number]. Lizandro Hemphill AST [Catalytic activity/Vol] 23 U/L Normal 15-37 [facility] Comment on above: Performed By: #### C MP ####[facility] Nxjbqyanil5279[address] [place], [place] [address]Dr. Lizandro Hemphill Bilirubin [Mass/Vol] 0.3 mg/dL Normal 0.2-1.0 [facility] Comment on above: Performed By: #### C MP ####[facility] Nqvnifryyx4593[address] [place], [place] [address]Dr. Lizandro Hemphill Calcium [Mass/Vol] 8.4 mg/dL Critically low 8.5-10.1 [facility] Comment on above: Performed By: #### C MP ####[facility] Pswzchlvqw400[address] [place], [place] [address]Dr. Lizandro Hemphill Chloride [Moles/Vol] 105 mmol/L Normal 98-107 [facility] Comment on above: Performed By: #### C MP ####[facility] Rtuoqaofeu7[address] [place], [place] [id number]. Lizandro Hemphill CO2 [Moles/Vol] 30.5 mmol/L Normal 21.0-32.0 [facility] Comment on above: Performed By: #### C MP ####[facility] Enrlcfbmlm396[address] [place], [place] [id number]. Lizandro Hemphill Creatinine [Mass/Vol] 0.93 mg/dL Normal 0.55-1.02 [facility] Comment on above: Performed By: #### C MP ####[facility] Gpbjzofdhw1546 [place] [id number]. Lizandro Hemphill EGFR-AF ARMENIAN >60 Normal >=60 [facility] Comment on above: Performed By: #### C MP ####[facility] Dzstuvfnkr1130 [place] [id number]. Lizandro Hemphill EGFR-NON AF ARMENIAN >60 Normal >=60 [facility] Comment on above: Performed By: #### C MP ####[facility] Ruoebkehdn5921 [place] [address]Dr. Lizandro Hemphill Globulin (S) [Mass/Vol] 3.4 g/dL Normal [facility] Comment on above: Performed By: #### C MP ####[facility] Jhzlmeezeu4556 [place] [address]Dr. Lizandro Hemphill Glucose [Mass/Vol] 177 mg/dL Critically high 74-106 [facility] Comment on above: Performed By: #### C MP ####[facility] Ydgcovmhil9594 [place] [address]Dr. Lizandro Hemphill Potassium [Moles/Vol] 4.0 mmol/L Normal 3.5-5.1 [facility] Comment on above: Performed By: #### C MP ####[facility] Ssgnskbbgn4832[address] [place], [place] [address]Dr. Lizandro Hemphill Protein [Mass/Vol] 6.2 g/dL Critically low 6.4-8.2 [facility] Comment on above: Performed By: #### C MP ####[facility] Kdfvyahqiq6329 [place] [address]Dr. Lizandro Hemphill Sodium [Moles/Vol] 143 mmol/L Normal 136-145 [facility] Comment on above: Performed By: #### C MP ####[facility] Wvkdyuilff9073 [place] [address]Dr. Lizandro Hemphill Urea nitrogen [Mass/Vol] 10.0 mg/dL Normal 7.0-18.0 [facility] Comment on above: Performed By: #### C MP ####[facility] Lzjtvlqetf4082[address] [place], [place] [address]Dr. Lizandro Hemphill Urea nitrogen/Creatinin e [Mass ratio] 10.8 mg/mg Normal [facility] Comment on above: Performed By: #### C MP ####[facility] Uyruwtxpdw7356[address] [place], [place] [address]DrCiro Hemphill PROTIMEon 05-30-2022 INR Coag (PPP) [Relative time] 1.24 {INR} Normal [facility] Comment on above: Performed By: #### P T ####[facility] Qsicfzcqho9952[address] [place], [place] [address]Dr. Lizandro Hemphill INR GUIDELINES SEE BELOW Normal [facility] Comment on above: Result Comment: GUEVARA RED INR: 2.0 - 3.0 CONDITIONS NOT LISTED BELOW 2.5 - 3.5 FOR PROSTHETIC HEART VALVE REPLACEMENT 2.5 - 3.5 RECURRENT THROMBOSIS Performed By: #### P T ####[facility] Lzuqawllbv3102[address] [place], [place] [address]DrCiro Hemphill PT Coag (PPP) [Time] 13.0 s Critically high 9.0-11.6 [facility] Comment on above: Performed By: #### P T ####[facility] Jtcaoyyfep4232[address] [place], [place] [address]DrCiro Hemphill CBC AUTO DIFFon 05-29-2022 BASO # 0.0 103/ul Normal 0.0-0.1 [facility] Comment on above: Performed By: #### C BC ####[facility] Vaiiridfct1324[address] [place], [place] [address]DrCiro Hemphill Basophils/100 WBC (Bld) 0.3 % Normal 0.2-2.0 [facility] Comment on above: Performed By: #### C BC ####[facility] Vdlshmrcnn8657[address] [place], [place] [address]DrCiro Hemphill EO # 0.1 103/ul Normal 0.0-0.7 [facility] Comment on above: Performed By: #### C BC ####[facility] Ibjflwwhrp[address] [place], [place] [address]DrCiro Hemphill Eosinophils/100 WBC (Bld) 0.6 % Critically low 0.9-7.0 [facility] Comment on above: Performed By: #### C BC ####[facility] Dkbujilizr9748[address] [place], [place] [address]Dr. Lizandro Hemphill Erythrocyte distribution width (RBC) [Ratio] 19.1 % Critically high 11.0-15.0 [facility] Comment on above: Performed By: #### C BC ####[facility] Tyozcfipfs5455[address] [place], [place] [address]Dr. Lizandro Hemphill Hematocrit (Bld) [Volume fraction] 34.1 % Critically low 36.0-48.0 [facility] Comment on above: Performed By: #### C BC ####[facility] Ypuasbhvbg9917[address] [place], [place] [address]Dr. Lizandro Hemphill Hemoglobin (Bld) [Mass/Vol] 10.9 g/dL Critically low 12.0-16.0 [facility] Comment on above: Performed By: #### C BC ####[facility] Mhwpfbrykg9[address] [place], [place] [address]Dr. Lizandro Hemphill IG # 0.04 10e3/ul Critically high 0.00-0.03 [facility] Comment on above: Performed By: #### C BC ####[facility] Ijqvcgmbly6047[address] [place], [place] [address]Dr. Lizandro Hemphill IG % 0.5 % Normal 0.0-0.5 [facility] Comment on above: Performed By: #### C BC ####[facility] Mjekwtwlkd[address] [place], [place] [address]Dr. Lizandro Hemphill LYMPH # 0.9 103/ul Critically low 1.2-3.8 [facility] Comment on above: Performed By: #### C BC ####[facility] Rggzppsgdb89[address] [place], [place] [address]Dr. Lizandro Hemphill Lymphocytes/100 WBC (Bld) 10.5 % Critically low 20.5-60.0 [facility] Comment on above: Performed By: #### C BC ####[facility] Imupiabbdg8752 [place] [address]Dr. Lizandro Joby MANUAL DIFF REQ NO Normal [facility] Comment on above: Performed By: #### C BC ####[facility] Dnqhitadha1821 [place] [address]Dr. Lizandro Hemphill MCH (RBC) [Entitic mass] 26.7 pg Normal 26.7-34.0 [facility] Comment on above: Performed By: #### C BC ####[facility] Rcprveadyk877[address] [place], [place] [address]Dr. Lizandro Joby MCHC (RBC) [Mass/Vol] 32.0 g/dL Normal 29.9-35.2 [facility] Comment on above: Performed By: #### C BC ####[facility] Xqeivfvxrp997[address] [place], [place] [address]Dr. Shanikaannie Hemphill MCV (RBC) [Entitic vol] 83.6 fL Normal 81.0-99.0 [facility] Comment on above: Performed By: #### C BC ####[facility] Rfmxgpeuhh2528[address] [place], [place] [address]Dr. Lizandro Joby MONO # 0.9 103/ul Critically high 0.3-0.8 [facility] Comment on above: Performed By: #### C BC ####[facility] Uysgezxfns9129[address] [place], [place] [address]Dr. Shanikaannie Hemphill Monocytes/100 WBC (Bld) 10.1 % Normal 1.7-12.0 [facility] Comment on above: Performed By: #### C BC ####[facility] Dspqmpgugx734[address] [place], [place] [address]Dr. Shanikaannie Joby NEUT # 6.9 103/ul Critically high 1.4-6.5 [facility] Comment on above: Performed By: #### C BC ####[facility] Xfncfxgwtq2057[address] [place], [place] [address]Dr. Lizandro Hemphill Neutrophils/100 WBC (Bld) 78.0 % Critically high 43.0-75.0 [facility] Comment on above: Performed By: #### C BC ####[facility] Mzulukzzkr3794 [place] [address]Dr. Lizandro Hemphill Platelet mean volume (Bld) [Entitic vol] 11.3 fL Normal 9.5-13.5 [facility] Comment on above: Performed By: #### C BC ####[facility] Onckymmpvw7715 [place] [address]Dr. Shanikaannie Hemphill PLT 196 103/ul Normal 150-450 [facility] Comment on above: Performed By: #### C BC ####[facility] Janoqodyhi4178 [place] [address]Dr. Lizandro Hemphill RBC 4.08 106/ul Critically low 4.20-5.40 [facility] Comment on above: Performed By: #### C BC ####[facility] Xtzhflngrb7[address] [place], [place] [address]Dr. Lizandro Hemphill WBC 8.8 103/ul Normal 4.0-11.0 [facility] Comment on above: Performed By: #### C BC ####[facility] Imxulaqtkm5718[address] [place], [place] [address]Dr. Lizandro Hemphill CT ABD/PELVIS WO CONon 05-29 CT ABD/PELVIS WO CON Normal [facility] CULTURE URINEon 05-29-2022 CULTURE URINE Culture Observations : NO GROWTH. Normal [facility] Comment on above: Performed By: #### U RCX ####[facility] Tpbyeyfypp228[address] [place], [place] [address]Dr. Lizandro Hemphill PROF 14(COMP METB)on 023 Albumin [Mass/Vol] 2.8 g/dL Critically low 3.4-5.0 Th [facility] Comment on above: Performed By: #### C MP ####[facility] Pyvvffubsm0088[address] [place], [place] [address]Dr. Liznadro Hemphill Albumin/Globulin [Mass ratio] 0.9 {ratio} Normal [facility] Comment on above: Performed By: #### C MP ####[facility] Ufsoiwafuo2524 [place] [address]Dr. Lizandro Hemphill ALP [Catalytic activity/Vol] 97 U/L Normal 46-116 [facility] Comment on above: Performed By: #### C MP ####[facility] Ugniiiopbh9029 [place] [phone]. Lizandro Hemphill ALT [Catalytic activity/Vol] 32 U/L Normal 14-59 [facility] Comment on above: Performed By: #### C MP ####[facility] Diqvvfygzw3407 [place] [id number]. Lizandro Hemphill Anion gap [Moles/Vol] 10.6 mmol/L Normal [facility] Comment on above: Performed By: #### C MP ####[facility] Emfvwxobfi9258 [place] [address]Dr. Lizandro Hemphill AST [Catalytic activity/Vol] 32 U/L Normal 15-37 [facility] Comment on above: Performed By: #### C MP ####[facility] Wnritcqopg9137[address] [place], [place] [address]Dr. Lizandro Hemphill Bilirubin [Mass/Vol] 0.4 mg/dL Normal 0.2-1.0 [facility] Comment on above: Performed By: #### C MP ####[facility] Cbtahzonay4099[address] [place], [place] [address]Dr. Lizandro Hemphill Calcium [Mass/Vol] 8.3 mg/dL Critically low 8.5-10.1 Th [facility] Comment on above: Performed By: #### C MP ####[facility] Xyohmhsmct9608[address] [place], [place] [address]Dr. Lizandro Hemphill Chloride [Moles/Vol] 103 mmol/L Normal 98-107 [facility] Comment on above: Performed By: #### C MP ####[facility] Shlpchhgdr[address] [place], [place] [id number]. Lizandro Hemphill CO2 [Moles/Vol] 31.5 mmol/L Normal 21.0-32.0 [facility] Comment on above: Performed By: #### C MP ####[facility] Bxibscqvio2[address] [place], [place] [id number]. Lizandro Hemphill Creatinine [Mass/Vol] 0.83 mg/dL Normal 0.55-1.02 [facility] Comment on above: Performed By: #### C MP ####[facility] Ddqcptxbqt8590 [place] [phone]. Lizandro Hemphill EGFR-AF ARMENIAN >60 Normal >=60 [facility] Comment on above: Performed By: #### C MP ####[facility] Ivusrzggzx7705 [place] [phone]. Lizandro Hemphill EGFR-NON AF ARMENIAN >60 Normal >=60 [facility] Comment on above: Performed By: #### C MP ####[facility] Hdabhweiyj1814 [place] [id number]. Lizandro Hemphill Globulin (S) [Mass/Vol] 3.2 g/dL Normal [facility] Comment on above: Performed By: #### C MP ####[facility] Cmdjaubpbz2574 [place] [address]Dr. Lizandro Hemphill Glucose [Mass/Vol] 120 mg/dL Critically high 74-106 [facility] Comment on above: Performed By: #### C MP ####[facility] Dbbmxtaaub3813 [place] [id number]. Lizandro Hemphill Potassium [Moles/Vol] 3.1 mmol/L Critically low 3.5-5.1 [facility] Comment on above: Performed By: #### C MP ####[facility] Dqdzwizewt9139 [place] [id number]. Lizandro Hemphill Protein [Mass/Vol] 6.0 g/dL Critically low 6.4-8.2 [facility] Comment on above: Performed By: #### C MP ####[facility] Mdxkfwkgqc8635 [place] [id number]. Lizandro Hemphill Sodium [Moles/Vol] 142 mmol/L Normal 136-145 [facility] Comment on above: Performed By: #### C MP ####[facility] Teinanfvyd4017 [place] [id number]. Lizandro Hemphill Urea nitrogen [Mass/Vol] 8.0 mg/dL Normal 7.0-18.0 [facility] Comment on above: Performed By: #### C MP ####[facility] Qimsvhsatu8389[address] [place], [place] [address]Dr. Lizandro Hemphill Urea nitrogen/Creatinin e [Mass ratio] 9.6 mg/mg Normal [facility] Comment on above: Performed By: #### C MP ####[facility] Jjvijguoxe0484[address] [place], [place] [address]Dr. Lizandro Hemphill PROTIMEon 05-29-2022 INR Coag (PPP) [Relative time] 1.11 {INR} Normal [facility] Comment on above: Performed By: #### P T ####[facility] Xhnjmlpgma7837[address] [place], [place] [address]Dr. Lizandro Hemphill INR GUIDELINES SEE BELOW Normal [facility] Comment on above: Result Comment: GUEVARA RED INR: 2.0 - 3.0 CONDITIONS NOT LISTED BELOW 2.5 - 3.5 FOR PROSTHETIC HEART VALVE REPLACEMENT 2.5 - 3.5 RECURRENT THROMBOSIS Performed By: #### P T ####[facility] Iembuclewn7084[address] [place], [place] [address]Dr. Lizandro Hemphill PT Coag (PPP) [Time] 11.7 s Critically high 9.0-11.6 [facility] Comment on above: Performed By: #### P T ####[facility] Tbtaftvkaa2383[address] [place], [place] [address]Dr. Lizandro Hemphill UA RANDOM W/MICROSCOPICon BACTERIA NONE SEEN Normal NONE SEEN [facility] Comment on above: Performed By: #### U AMIC ####[facility] Ylqldnjobd3873[address] [place], [place] [address]Dr. Lizandro Hemphill Bilirubin Ql (U) Negative Normal NEGATIVE [facility] Comment on above: Performed By: #### U AMIC ####[facility] Ujnbtdzrrh2985[address] [place], [place] [address]Dr. Lizandro Hemphill CAST NONE SEEN Normal NONE SEEN [facility] Comment on above: Performed By: #### U AMIC ####[facility] Zjafnjaqmn618[address] [place], [place] [address]Dr. Lizandro Hemphill Clarity (U) CLEAR Normal CLEAR [facility] Comment on above: Performed By: #### U AMIC ####[facility] Nxrnsxmwrj4708 [place] [id number]. Yilan Hemphill Color (U) LT. YELLOW Normal YELLOW [facility] Comment on above: Performed By: #### U AMIC ####[facility] Utxwypsieo3625 [place] [id number]. Yilan Hemphill Crystals LM Nom (Urine sed) NONE SEEN Normal NONE SEEN [facility] Comment on above: Performed By: #### U AMIC ####[facility] Uoxzcjqbce5465 [place] [address]Dr. Yilan Hemphill Epithelial cells LM Ql (Urine sed) NONE SEEN Normal NONE SEEN /RARE [facility] Comment on above: Performed By: #### U AMIC ####[facility] Dfkigijcqv2167 [place] [address]Dr. Yilan Hemphill Glucose Ql (U) Negative Normal NEGATIVE [facility] Comment on above: Performed By: #### U AMIC ####[facility] Lbdoaaxjdq7075[address] [place], [place] [address]Dr. Yilan Hemphill Hemoglobin Ql (U) Negative Normal NEGATIVE [facility] Comment on above: Performed By: #### U AMIC ####[facility] Oohnmeufso1763[address] [place], [place] [address]Dr. Yilan Hemphill Ketones Ql (U) Negative Normal NEGATIVE [facility] Comment on above: Performed By: #### U AMIC ####[facility] Kibrotewxz9833 [place] [address]Dr. Yilan Hemphill LEUKOCYTES Negative Normal NEGATIVE [facility] Comment on above: Performed By: #### U AMIC ####[facility] Prsarfkftn4963 [place] [address]Dr. Yilan Hemphill MUCOUS NONE SEEN Normal NONE SEEN [facility] Comment on above: Performed By: #### U AMIC ####[facility] Wbexhhhiba4604 [place] [address]Dr. Yilan Hemphill Nitrite Ql (U) Negative Normal NEGATIVE [facility] Comment on above: Performed By: #### U AMIC ####[facility] Zqvbdkpmdb5727[address] [place], [place] [address]Dr. Lizandro Hemphill pH (U) 7.5 [pH] Normal 5-9 [facility] Comment on above: Performed By: #### U AMIC ####[facility] Widvryezlk9336[address] [place], [place] [address]Dr. Lizandro Hemphill RBC NONE SEEN Abnormal 0-2 [facility] Comment on above: Performed By: #### U AMIC ####[facility] Lmfxcuetcx8148[address] [place], [place] [address]Dr. Lizandro Hemphill SPEC GRAVITY 1.010 Normal 1.005-<=1.025 [facility] Comment on above: Performed By: #### U AMIC ####[facility] Csggljolov6696[address] [place], [place] [address]Dr. Lizandro Hemphill UA PROTEIN Negative Normal NEGATIVE/ TRACE [facility] Comment on above: Performed By: #### U AMIC ####[facility] Hlkmtvdsfk0005[address] [place], [place] [address]Dr. Lizandro Hemphill Urobilinogen Qn (U) 0.2 {Cassy'U}/dL Normal 0.2 - 1.0 [facility] Comment on above: Performed By: #### U AMIC ####[facility] Wawzskcyrb9599[address] [place], [place] [address]Dr. Lizandro Hemphill WBC NONE SEEN Normal NONE SEEN [facility] Comment on above: Performed By: #### U AMIC ####[facility] Vqfptdejqp6914[address] [place], [place] [address]Dr. Lizandro Hemphill CBC AUTO DIFFon 05-28-2022 BASO # 0.0 103/ul Normal 0.0-0.1 [facility] Comment on above: Performed By: #### C BC ####[facility] Cuxxfcampb4907[address] [place], [place] [address]Dr. Lizandro Hemphill Basophils/100 WBC (Bld) 0.6 % Normal 0.2-2.0 [facility] Comment on above: Performed By: #### C BC ####[facility] Wghesuriee2338[address] [place], [place] [address]Dr. Lizandro Hemphill EO # 0.0 103/ul Normal 0.0-0.7 [facility] Comment on above: Performed By: #### C BC ####[facility] Eegoqarjip3784 [place] [address]Dr. Shanikaannie Hemphill Eosinophils/100 WBC (Bld) 0.6 % Critically low 0.9-7.0 [facility] Comment on above: Performed By: #### C BC ####[facility] Gvahdautal2[address] [place], [place] [address]Dr. Lizandro Hemphill Erythrocyte distribution width (RBC) [Ratio] 18.6 % Critically high 11.0-15.0 [facility] Comment on above: Performed By: #### C BC ####[facility] Xbytrghpkk[address] [place], [place] [address]Dr. Lizandro Hemphill Hematocrit (Bld) [Volume fraction] 31.6 % Critically low 36.0-48.0 [facility] Comment on above: Performed By: #### C BC ####[facility] Vrgbtjeqnx[address] [place], [place] [address]Dr. Lizandro Hemphill Hemoglobin (Bld) [Mass/Vol] 10.2 g/dL Critically low 12.0-16.0 [facility] Comment on above: Performed By: #### C BC ####[facility] Dohpkubglk65[address] [place], [place] [address]Dr. Lizandro Hemphill IG # 0.03 10e3/ul Normal 0.00-0.03 [facility] Comment on above: Performed By: #### C BC ####[facility] Uvxbjkwxnv1536[address] [place], [place] [address]Dr. Lizandro Hemphill IG % 0.4 % Normal 0.0-0.5 [facility] Comment on above: Performed By: #### C BC ####[facility] Ktqbsmajba[address] [place], [place] [address]Dr. Lizandro Hemphill LYMPH # 0.9 103/ul Critically low 1.2-3.8 [facility] Comment on above: Performed By: #### C BC ####[facility] Crdnobgfcv39[address] [place], [place] [address]Dr. Lizandro Hemphill Lymphocytes/100 WBC (Bld) 12.6 % Critically low 20.5-60.0 [facility] Comment on above: Performed By: #### C BC ####[facility] Gyzkqgstct4080 [place] [address]DrCiro Hemphill MANUAL DIFF REQ NO Normal [facility] Comment on above: Performed By: #### C BC ####[facility] Psmhbvsndc6825 [place] [address]Dr. Lizandro Hemphill MCH (RBC) [Entitic mass] 26.7 pg Normal 26.7-34.0 [facility] Comment on above: Performed By: #### C BC ####[facility] Kxctjqhytd[address] [place], [place] [address]Dr. Lizandro Hemphill MCHC (RBC) [Mass/Vol] 32.3 g/dL Normal 29.9-35.2 [facility] Comment on above: Performed By: #### C BC ####[facility] Qpasndpfvm5782[address] [place], [place] [address]DrCiro Hemphill MCV (RBC) [Entitic vol] 82.7 fL Normal 81.0-99.0 [facility] Comment on above: Performed By: #### C BC ####[facility] Gjxlbidzus25[address] [place], [place] [address]DrCiro Hemphill MONO # 0.7 103/ul Normal 0.3-0.8 [facility] Comment on above: Performed By: #### C BC ####[facility] Yvvymtzfkn01[address] [place], [place] [address]DrCiro Hemphill Monocytes/100 WBC (Bld) 10.2 % Normal 1.7-12.0 [facility] Comment on above: Performed By: #### C BC ####[facility] Oxiumzdzfg5807[address] [place], [place] [address]DrCiro Hemphill NEUT # 5.4 103/ul Normal 1.4-6.5 [facility] Comment on above: Performed By: #### C BC ####[facility] Urpjksnbho3664[address] [place], [place] [address]DrCiro Hemphill Neutrophils/100 WBC (Bld) 75.6 % Critically high 43.0-75.0 [facility] Comment on above: Performed By: #### C BC ####[facility] Qtthcqxwli9758[address] [place], [place] [address]Dr. Lizandro Hemphill Platelet mean volume (Bld) [Entitic vol] 10.4 fL Normal 9.5-13.5 [facility] Comment on above: Performed By: #### C BC ####[facility] Cwfifmigsu422[address] [place], [place] [address]Dr. Shanikaannie Joby PLT 260 103/ul Normal 150-450 [facility] Comment on above: Performed By: #### C BC ####[facility] Qeyjcbqibi8369[address] [place], [place] [address]Dr. Lizandro Hemphill RBC 3.82 106/ul Critically low 4.20-5.40 [facility] Comment on above: Performed By: #### C BC ####[facility] Phoyviblup2745[address] [place], [place] [address]Dr. Shanikaannie Joby WBC 7.2 103/ul Normal 4.0-11.0 [facility] Comment on above: Performed By: #### C BC ####[facility] Vmbcjctzau[address] [place], [place] [address]DrCiro Vossannie Joby ER URINE PROFILEon 3 Bilirubin Ql (U) Negative Normal NEGATIVE [facility] Comment on above: Performed By: #### E RUR ####[facility] Iyacqupyew[address] [place], [place] [address]DrCiro Hemphill Clarity (U) CLEAR Normal CLEAR [facility] Comment on above: Performed By: #### E RUR ####[facility] Dajainszdc3358[address] [place], [place] [address]DrCiro Hemphill Color (U) LT. YELLOW Normal YELLOW [facility] Comment on above: Performed By: #### E RUR ####[facility] Irokibtuil3076[address] [place], [place] [address]DrCiro Hemphill ERUAHD A micrscopic examina tion will be performed if indicated. Normal [facility] Comment on above: Performed By: #### E RUR ####[facility] F[address] [place] [address]Dr. Lizandro Hemphill Glucose Ql (U) Negative Normal NEGATIVE [facility] Comment on above: Performed By: #### E RUR ####[facility] Risndawkdq12[address] [place] [address]Dr. Lizandro Hemphill Hemoglobin Ql (U) Negative Normal NEGATIVE [facility] Comment on above: Performed By: #### E RUR ####[facility] Pumceaaeno8905[address] [place], [place] [address]Dr. Lizandro Hemphill Ketones Ql (U) Negative Normal NEGATIVE [facility] Comment on above: Performed By: #### E RUR ####[facility] Ebqplbwpym3837[address] [place], [place] [address]Dr. Lizandro Hemphill LEUKOCYTES Negative Normal NEGATIVE [facility] Comment on above: Performed By: #### E RUR ####[facility] Dkkgloqdbs8963[address] [place], [place] [address]Dr. Lizandro Hemphill Nitrite Ql (U) Negative Normal NEGATIVE [facility] Comment on above: Performed By: #### E RUR ####[facility] Lgtljqsruu9385[address] [place], [place] [address]Dr. Lizandro Hemphill pH (U) 6.5 [pH] Normal 5-9 [facility] Comment on above: Performed By: #### E RUR ####[facility] Dshcbaagwr5974[address] [place], [place] [address]Dr. Lizandro Hemphill SPEC GRAVITY <=1.005 Abnormal 1.005-<=1.025 [facility] Comment on above: Performed By: #### E RUR ####[facility] Wwouopehqw2915[address] [place], [place] [address]Dr. Lizandro Hemphill UA PROTEIN Negative Normal NEGATIVE/ TRACE [facility] Comment on above: Performed By: #### E RUR ####[facility] Pcbhvtkpnr5[address] [place], [place] [address]Dr. Shanikaannie Joby UR MICRO IND NOT INDICATED Normal [facility] Comment on above: Performed By: #### E RUR ####[facility] Mpgfedrndx9447[address] [place], [place] [address]Dr. Lizandro Hemphill Urobilinogen Qn (U) 0.2 {Cassy'U}/dL Normal 0.2 - 1.0 [facility] Comment on above: Performed By: #### E RUR ####[facility] Dlkstxehws044[address] [place], [place] [address]Dr. Lizandro Hemphill GI PANEL (PCR)on 05-28-2022 Adenovirus F 40/41 Not detected Normal NOT DETECTED [facility] Comment on above: Performed By: #### G IPANEL ####[facility] Ckdjlorper3868[address] [place], [place] [address]Dr. Lizandro Hemphill Astrovirus Not detected Normal NOT DETECTED [facility] Comment on above: Performed By: #### G IPANEL ####[facility] Iycrwtvadd0657[address] [place], [place] [address]Dr. Lizandro Hemphill C. Diff toxin A/B Not detected Normal NOT DETECTED [facility] Comment on above: Performed By: #### G IPANEL ####[facility] Ilmwzetpyy7447[address] [place], [place] [address]Dr. Lizandro Hemphill Campylobacter Not detected Normal NOT DETECTED [facility] Comment on above: Performed By: #### G IPANEL ####[facility] Fuajlseytc7758[address] [place], [place] [address]Dr. Lizandro Hemphill Cryptosporidium Not detected Normal NOT DETECTED [facility] Comment on above: Performed By: #### G IPANEL ####[facility] Rrvptesfzg1293[address] [place], [place] [address]Dr. Lizandro Hemphill Cyclos. Cayetanensis Not detected Normal NOT DETECTED [facility] Comment on above: Performed By: #### G IPANEL ####[facility] Nodsnvniie233[address] [place], [place] [address]Dr. Lizandro Hemphill E. Coli O157 Not Applicable Normal Not Applicable [facility] Comment on above: Performed By: #### G IPANEL ####[facility] Bnqtgahufc8728[address] [place], [place] [address]Dr. Lizandro Hemphill E. histolytica Not detected Normal NOT DETECTED [facility] Comment on above: Performed By: #### G IPANEL ####[facility] Awuwloujlx080[address] [place], [place] [address]Dr. Shanikaannie Hemphill EAEC Not detected Normal NOT DETECTED [facility] Comment on above: Performed By: #### G IPANEL ####[facility] Lxtojzgrdc712[address] [place], [place] [address]Dr. Shanikaannie Hemphill EIEC Not detected Normal NOT DETECTED [facility] Comment on above: Performed By: #### G IPANEL ####[facility] Zitulhakzn912[address] [place], [place] [address]Dr. Lizandro Hemphill EPEC Not detected Normal NOT DETECTED [facility] Comment on above: Performed By: #### G IPANEL ####[facility] Davdrkcyxa6848[address] [place], [place] [address]Dr. Lizandro Hemphill ETEC Not detected Normal NOT DETECTED [facility] Comment on above: Performed By: #### G IPANEL ####[facility] Mhltholryt9304[address] [place], [place] [address]Dr. Shanikaannie Hemphill G. Lamblia Not detected Normal NOT DETECTED [facility] Comment on above: Performed By: #### G IPANEL ####[facility] Cnbemqifxm668[address] [place], [place] [address]Dr. Lizandro LEHMANANEL CONTROLS PASSED Normal [facility] Comment on above: Performed By: #### G IPANEL ####[facility] Lpgkmlaqeg9266[address] [place], [place] [address]Dr. Lizandro LEHMANNL CARIE HEADER GI PANEL BACTERIA Normal T [facility] Comment on above: Performed By: #### G IPANEL ####[facility] Skapalbmmi864[address] [place], [place] [address]Dr. Lizandro LEHMANNLHD ECOLI GI PANEL DIARRHEAGEN IC E.COLI / SHIGELLA Normal [facility] Comment on above: Performed By: #### G IPANEL ####[facility] Kqcvaerzzu4814[address] [place], [place] [address]Dr. Lizandro LEHMANNLHD INFO SEE BELOW Normal [facility] Comment on above: Result Comment: EAEC - Enteroaggregative E. Coli EPEC- Enteropathogenic E. Coli ETEC- Enterotoxigenic E. Coli lt/st STEC- Shigella-like toxin-producing E. Coli stx1/stx2 EIEC- Shigella/Enteroinvasive E. Coli Performed By: #### G IPANEL ####[facility] Duukyscfvf537[address] [place], [place] [address]Dr. Lizandro Hemphill GIPNLHD PARASITES GI PANEL PARASITES Normal [facility] Comment on above: Performed By: #### G IPANEL ####[facility] Ooyfmgvxtz4201[address] [place], [place] [address]Dr. Lizandro Hemphill GIPNLHD VIRUS GI PANEL VIRUSES Normal [facility] Comment on above: Performed By: #### G IPANEL ####[facility] Qdixureief946[address] [place], [place] [address]Dr. Lizandro Hemphill Norovirus GI/GII Not detected Normal NOT DETECTED [facility] Comment on above: Performed By: #### G IPANEL ####[facility] Tdfyswdlrc824[address] [place], [place] [address]Dr. Lizandro Hemphill P. Shigelloides Not detected Normal NOT DETECTED [facility] Comment on above: Performed By: #### G IPANEL ####[facility] Jsicynkedb6578[address] [place], [place] [address]Dr. Lizandro Hemphill Rotavirus A Not detected Normal NOT DETECTED [facility] Comment on above: Performed By: #### G IPANEL ####[facility] Xjxmfkncxw69[address] [place], [place] [address]Dr. Lizandro Hemphill Salmonella Not detected Normal NOT DETECTED [facility] Comment on above: Performed By: #### G IPANEL ####[facility] Gsewfbiyzj917714 [address] [place], [place] [address]Dr. Lizandro Hemphill Sapovirus Not detected Normal NOT DETECTED [facility] Comment on above: Performed By: #### G IPANEL ####[facility] Zkjqglkzyy417[address] [place], [place] [address]Dr. Shanikaannie Hemphill STEC Not detected Normal NOT DETECTED [facility] Comment on above: Performed By: #### G IPANEL ####[facility] Mdlgfynxvz[address] [place] [address]Dr. Lizandro Hemphill Vibrio Not detected Normal NOT DETECTED [facility] Comment on above: Performed By: #### G IPANEL ####[facility] Jkxgqdtuwt2914 [place] [address]Dr. Lizandro Hemphill Vibrio Cholera Not detected Normal NOT DETECTED [facility] Comment on above: Performed By: #### G IPANEL ####[facility] Kdnuivqaul4240 [place] [address]Dr. Lizandro Hemphill Y. Enterocolitica Not detected Normal NOT DETECTED [facility] Comment on above: Performed By: #### G IPANEL ####[facility] Nvbgmxexgw8825[address] [place], [place] [address]Dr. Lizandro Hemphill OCC BLD IMMUNOASSAYon 2022 OCCULT BLOOD Negative Normal NEGATIVE [facility] Comment on above: Performed By: #### O GREGORIO ####[facility] Ngsbqenflv8512[address] [place], [place] [address]Dr. Lizandro Hemphill PROF 14(COMP METB)on 023 Albumin [Mass/Vol] 2.7 g/dL Critically low 3.4-5.0 [facility] Comment on above: Performed By: #### C MP ####[facility] Nscfqqvthl1187[address] [place], [place] [address]Dr. Lizandro Hemphill Albumin/Globulin [Mass ratio] 1.0 {ratio} Normal [facility] Comment on above: Performed By: #### C MP ####[facility] Yylwsawrke9865[address] [place], [place] [address]Dr. Lizandro Hemphill ALP [Catalytic activity/Vol] 93 U/L Normal 46-116 [facility] Comment on above: Performed By: #### C MP ####[facility] Uvwkqmhjdr2013[address] [place], [place] [address]Dr. Lizandro Hemphill ALT [Catalytic activity/Vol] 38 U/L Normal 14-59 [facility] Comment on above: Performed By: #### C MP ####[facility] Ihuiwyqnhc6326[address] [place], [place] [address]Dr. Lizandro Hemphill Anion gap [Moles/Vol] 10.9 mmol/L Normal [facility] Comment on above: Performed By: #### C MP ####[facility] Snioznosxt029[address] [place], [place] [address]Dr. Lizandro Hemphill AST [Catalytic activity/Vol] 44 U/L Critically high 15-37 [facility] Comment on above: Performed By: #### C MP ####[facility] Avflkvwrpg295[address] [place], [place] [address]Dr. Lizandro Hemphill Bilirubin [Mass/Vol] 0.2 mg/dL Normal 0.2-1.0 [facility] Comment on above: Performed By: #### C MP ####[facility] Oyrkjnascb7213[address] [place], [place] [address]Dr. Lizandro Hemhpill Calcium [Mass/Vol] 8.0 mg/dL Critically low 8.5-10.1 [facility] Comment on above: Performed By: #### C MP ####[facility] Jthviczthv3916[address] [place], [place] [address]Dr. Lizandro Joby Chloride [Moles/Vol] 107 mmol/L Normal 98-107 [facility] Comment on above: Performed By: #### C MP ####[facility] Ehpszweuaf8574[address] [place], [place] [address]Dr. Lizandro Joby CO2 [Moles/Vol] 27.4 mmol/L Normal 21.0-32.0 [facility] Comment on above: Performed By: #### C MP ####[facility] Ektnabhelh2489[address] [place], [place] [address]Dr. Lizandro Joby Creatinine [Mass/Vol] 0.90 mg/dL Normal 0.55-1.02 [facility] Comment on above: Performed By: #### C MP ####[facility] Olzcdsmron6938[address] [place], [place] [address]Dr. Shanikaannie Joby EGFR-AF ARMENIAN >60 Normal >=60 [facility] Comment on above: Performed By: #### C MP ####[facility] Hlokezqupy8274[address] [place], [place] [address]Dr. Lizandro Hemphill EGFR-NON AF ARMENIAN >60 Normal >=60 [facility] Comment on above: Performed By: #### C MP ####[facility] Yinouzzuhg4[address] [place] [address]Dr. Lizandro Hemphill Globulin (S) [Mass/Vol] 2.6 g/dL Normal [facility] Comment on above: Performed By: #### C MP ####[facility] Igslqansye14[address] [place] [address]Dr. Lizandro Hemphill Glucose [Mass/Vol] 131 mg/dL Critically high 74-106 [facility] Comment on above: Performed By: #### C MP ####[facility] Hzzbefebdo7782[address] [place], [place] [address]Dr. Lizandro Hemphill Potassium [Moles/Vol] 3.3 mmol/L Critically low 3.5-5.1 [facility] Comment on above: Performed By: #### C MP ####[facility] Kbsizsoyvg4823[address] [place], [place] [address]Dr. Lizandro Hemphill Protein [Mass/Vol] 5.3 g/dL Critically low 6.4-8.2 [facility] Comment on above: Performed By: #### C MP ####[facility] Qcrwgnzhem8876[address] [place], [place] [address]Dr. Lizandro Hemphill Sodium [Moles/Vol] 142 mmol/L Normal 136-145 [facility] Comment on above: Performed By: #### C MP ####[facility] Buwcnoasum7235[address] [place], [place] [address]Dr. Lizandro Hemphill Urea nitrogen [Mass/Vol] 12.0 mg/dL Normal 7.0-18.0 [facility] Comment on above: Performed By: #### C MP ####[facility] Tfcikhannm36[address] [place], [place] [address]Dr. Lizandro Joby Urea nitrogen/Creatinin e [Mass ratio] 13.3 mg/mg Normal [facility] Comment on above: Performed By: #### C MP ####[facility] Owfnypuptr8855[address] [place], [place] [address]Dr. Shanikaannie Joby PROTIMEon 05-28-2022 INR Coag (PPP) [Relative time] 1.10 {INR} Normal [facility] Comment on above: Performed By: #### P T ####[facility] Fmenpwxfql7332[address] [place], [place] [address]Dr. Lizandro Hemphill INR GUIDELINES SEE BELOW Normal [facility] Comment on above: Result Comment: GUEVARA RED INR: 2.0 - 3.0 CONDITIONS NOT LISTED BELOW 2.5 - 3.5 FOR PROSTHETIC HEART VALVE REPLACEMENT 2.5 - 3.5 RECURRENT THROMBOSIS Performed By: #### P T ####[facility] Fphmjxeslk6057[address] [place], [place] [address]Dr. Lizandro Hemphill PT Coag (PPP) [Time] 11.6 s Normal 9.0-11.6 [facility] Comment on above: Performed By: #### P T ####[facility] Zltcnmmoer5973[address] [place], [place] [address]Dr. Lizandro Hemphill XR ABD FLAT UP_PA Allen 05-28 XR ABD FLAT UP_PA CH Normal [facility] CBC AUTO DIFFon 05-27-2022 BASO # 0.1 103/ul Normal 0.0-0.1 [facility] Comment on above: Performed By: #### C BC ####[facility] Wcqbdwngdj8929[address] [place], [place] [address]Dr. Lizandro Hemphill Basophils/100 WBC (Bld) 0.9 % Normal 0.2-2.0 [facility] Comment on above: Performed By: #### C BC ####[facility] Bzpmnmhcqz337[address] [place], [place] [address]DrCiro Hemphill EO # 0.0 103/ul Normal 0.0-0.7 [facility] Comment on above: Performed By: #### C BC ####[facility] Hwubmbyjhm9[address] [place], [place] [address]Dr. Lizandro Hemphill Eosinophils/100 WBC (Bld) 0.8 % Critically low 0.9-7.0 [facility] Comment on above: Performed By: #### C BC ####[facility] Wolizdfmfo5601[address] [place], [place] [address]Dr. Lizandro Hemphill Erythrocyte distribution width (RBC) [Ratio] 18.6 % Critically high 11.0-15.0 [facility] Comment on above: Performed By: #### C BC ####[facility] [address]evmjeoyrd[address] [place] [address]Dr. Lizandro Hemphill Hematocrit (Bld) [Volume fraction] 33.0 % Critically low 36.0-48.0 [facility] Comment on above: Performed By: #### C BC ####[facility] [address]wcuivpbu23[address] [place] [address]Dr. Lizandro Hemphill Hemoglobin (Bld) [Mass/Vol] 10.8 g/dL Critically low 12.0-16.0 [facility] Comment on above: Performed By: #### C BC ####[facility] Wahucvxxrr0708[address] [place], [place] [address]Dr. Lizandro Hemphill IG # 0.01 10e3/ul Normal 0.00-0.03 [facility] Comment on above: Performed By: #### C BC ####[facility] Nynbfixwrr9215[address] [place], [place] [address]Dr. Shanikaannie Hemphill IG % 0.2 % Normal 0.0-0.5 [facility] Comment on above: Performed By: #### C BC ####[facility] Rsevpcxvwn7704[address] [place], [place] [address]Dr. Lizandro Joby LYMPH # 0.9 103/ul Critically low 1.2-3.8 [facility] Comment on above: Performed By: #### C BC ####[facility] Foaunczdno813[address] [place], [place] [address]Dr. Shanikaannie Hemphill Lymphocytes/100 WBC (Bld) 16.5 % Critically low 20.5-60.0 [facility] Comment on above: Performed By: #### C BC ####[facility] Enqzshxejp5256[address] [place], [place] [address]Dr. Lizandro Hemphill MANUAL DIFF REQ NO Normal [facility] Comment on above: Performed By: #### C BC ####[facility] Mtdqzisezi1845[address] [place], [place] [address]Dr. Lizandro Hemphill MCH (RBC) [Entitic mass] 27.3 pg Normal 26.7-34.0 [facility] Comment on above: Performed By: #### C BC ####[facility] [address]okbegwn[address] [place] [id number]. Lizandro Hemphill MCHC (RBC) [Mass/Vol] 32.7 g/dL Normal 29.9-35.2 [facility] Comment on above: Performed By: #### C BC ####[facility] Qnomfiognk55[address] [place] [address]Dr. Lizandro Hemphill MCV (RBC) [Entitic vol] 83.5 fL Normal 81.0-99.0 [facility] Comment on above: Performed By: #### C BC ####[facility] Lksetuayfz166[address] [place], [place] [address]Dr. Lizandro Hemphill MONO # 0.7 103/ul Normal 0.3-0.8 [facility] Comment on above: Performed By: #### C BC ####[facility] Shqgfwpifi4855[address] [place], [place] [address]Dr. Lizandro Hemphill Monocytes/100 WBC (Bld) 13.7 % Critically high 1.7-12.0 [facility] Comment on above: Performed By: #### C BC ####[facility] Frjozptlit6509[address] [place], [place] [address]Dr. Lizandro Hemphill NEUT # 3.6 103/ul Normal 1.4-6.5 [facility] Comment on above: Performed By: #### C BC ####[facility] Hgargrlaqt8329[address] [place], [place] [address]Dr. Lizandro Joby Neutrophils/100 WBC (Bld) 67.9 % Normal 43.0-75.0 [facility] Comment on above: Performed By: #### C BC ####[facility] Woghfaotjb4200[address] [place], [place] [address]Dr. Lizandro Hemphill Platelet mean volume (Bld) [Entitic vol] 10.4 fL Normal 9.5-13.5 [facility] Comment on above: Performed By: #### C BC ####[facility] Wuijqzbpmn35[address] [place] [id number]. Lizandro Hemphill PLT 270 103/ul Normal 150-450 [facility] Comment on above: Performed By: #### C BC ####[facility] Tkglphccju7188 [place] [id number]. Lizandro Hemphill RBC 3.95 106/ul Critically low 4.20-5.40 [facility] Comment on above: Performed By: #### C BC ####[facility] Rwpbzvntvs5324 [place] [id number]. Lizandro Hemphill WBC 5.3 103/ul Normal 4.0-11.0 [facility] Comment on above: Performed By: #### C BC ####[facility] Rgzngracsm3986[address] [place], [place] [address]Dr. Lizandro Hemphill BASO # 0.1 103/ul Normal 0.0-0.1 [facility] Comment on above: Performed By: #### C BC ####[facility] Yviyrnjfjm8412[address] [place], [place] [address]Dr. Lizandro Hemphill Basophils/100 WBC (Bld) 1.0 % Normal 0.2-2.0 [facility] Comment on above: Performed By: #### C BC ####[facility] Cdzvrolkdf13[address] [place], [place] [address]Dr. Lizandro Hemphill EO # 0.1 103/ul Normal 0.0-0.7 [facility] Comment on above: Performed By: #### C BC ####[facility] Bvbudxvakq[address] [place], [place] [id number]. Lizandro Hemphill Eosinophils/100 WBC (Bld) 1.0 % Normal 0.9-7.0 [facility] Comment on above: Performed By: #### C BC ####[facility] Ltixmawtqb3477[address] [place], [place] [address]DrCiro Lizandro Hemphill Erythrocyte distribution width (RBC) [Ratio] 20.0 % Critically high 11.0-15.0 [facility] Comment on above: Performed By: #### C BC ####[facility] Edjcerfwvt[address] [place], [place] [address]DrCiro Hemphill Hematocrit (Bld) [Volume fraction] 24.0 % Critically low 36.0-48.0 [facility] Comment on above: Performed By: #### C BC ####[facility] [address]aljus[address] [place] [address]DrCiro Hemphill Hemoglobin (Bld) [Mass/Vol] 7.4 g/dL Critically low 12.0-16.0 [facility] Comment on above: Performed By: #### C BC ####[facility] [address]sbpvoi[address] [place] [address]DrCiro Hemphill IG # 0.01 10e3/ul Normal 0.00-0.03 [facility] Comment on above: Performed By: #### C BC ####[facility] Rwkhvpgexk[address] [place] [address]DrCiro Hemphill IG % 0.2 % Normal 0.0-0.5 [facility] Comment on above: Performed By: #### C BC ####[facility] [facility] [address] [place], [place] [address]DrCiro Hemphill LYMPH # 1.0 103/ul Critically low 1.2-3.8 [facility] Comment on above: Performed By: #### C BC ####[facility] Zynajq[address]st[address] [place], [place] [address]DrCiro Hemphill Lymphocytes/100 WBC (Bld) 20.3 % Critically low 20.5-60.0 [facility] Comment on above: Performed By: #### C BC ####[facility] Byybrvsnca[address] [place], [place] [address]DrCiro Hemphill MANUAL DIFF REQ NO Normal [facility] Comment on above: Performed By: #### C BC ####[facility] Yqvzwnemqk[address] [place], [place] [address]DrCiro Hemphill MCH (RBC) [Entitic mass] 25.3 pg Critically low 26.7-34.0 [facility] Comment on above: Performed By: #### C BC ####[facility] Smfktnuhta[address] [place], [place] [address]DrCiro Hemphill MCHC (RBC) [Mass/Vol] 30.8 g/dL Normal 29.9-35.2 [facility] Comment on above: Performed By: #### C BC ####[facility] Gr[address]ciweep[address] [place] [address]Dr. Lizandro Hemphill MCV (RBC) [Entitic vol] 81.9 fL Normal 81.0-99.0 [facility] Comment on above: Performed By: #### C BC ####[facility] Bjopkigayg[address] [place], [place] [address]Dr. Lizandro Hemphill MONO # 0.6 103/ul Normal 0.3-0.8 [facility] Comment on above: Performed By: #### C BC ####[facility] Zpstfaqcxd8[address] [place], [place] [address]Dr. Lizandro Hemphill Monocytes/100 WBC (Bld) 12.8 % Critically high 1.7-12.0 [facility] Comment on above: Performed By: #### C BC ####[facility] Npkrqbwkmv[address] [place], [place] [address]Dr. Lizandro Hemphill NEUT # 3.2 103/ul Normal 1.4-6.5 [facility] Comment on above: Performed By: #### C BC ####[facility] Fowuqypoza[address] [place], [place] [address]Dr. Lizandro Hemphill Neutrophils/100 WBC (Bld) 64.7 % Normal 43.0-75.0 [facility] Comment on above: Performed By: #### C BC ####[facility] Btchgobhyb[address] [place], [place] [address]Dr. Lizandro Hemphill Platelet mean volume (Bld) [Entitic vol] 10.2 fL Normal 9.5-13.5 [facility] Comment on above: Performed By: #### C BC ####[facility] Usnktexckn[address] [place], [place] [address]Dr. Lizandro Hemphill PLT 301 103/ul Normal 150-450 [facility] Comment on above: Performed By: #### C BC ####[facility] Rirdaedzwp3[address] [place], [place] [address]Dr. Lizandro Hemphill RBC 2.93 106/ul Critically low 4.20-5.40 [facility] Comment on above: Performed By: #### C BC ####[facility] Vqcwzxuean55[address] [place] [id number]. Lizandro Hemphill WBC 4.9 103/ul Normal 4.0-11.0 [facility] Comment on above: Performed By: #### C BC ####[facility] Lqjntcuanq5926 [place] [id number]. Lizandro Hemphill BASO # 0.0 103/ul Normal 0.0-0.1 [facility] Comment on above: Performed By: #### C BC ####[facility] Zgaoihtumx20[address] [place] [address]Dr. Lizandro Hemphill Basophils/100 WBC (Bld) 0.9 % Normal 0.2-2.0 [facility] Comment on above: Performed By: #### C BC ####[facility] Izpvycuami6[address] [place] [address]Dr. Lizandro Hemphill EO # 0.0 103/ul Normal 0.0-0.7 [facility] Comment on above: Performed By: #### C BC ####[facility] Zeoqtksruu[address] [place], [place] [address]Dr. Lizandro Hemphill Eosinophils/100 WBC (Bld) 0.7 % Critically low 0.9-7.0 [facility] Comment on above: Performed By: #### C BC ####[facility] Uylhplqorp56[address] [place] [address]Dr. Lizandro Hemphill Erythrocyte distribution width (RBC) [Ratio] 20.1 % Critically high 11.0-15.0 [facility] Comment on above: Performed By: #### C BC ####[facility] Aqcxbbindx[address] [place], [place] [address]Dr. Lizandro Hemphill Hematocrit (Bld) [Volume fraction] 23.6 % Critically low 36.0-48.0 [facility] Comment on above: Performed By: #### C BC ####[facility] Iphzmiwogo[address] [place], [place] [address]Dr. Lizandro Hemphill Hemoglobin (Bld) [Mass/Vol] 7.3 g/dL Critically low 12.0-16.0 [facility] Comment on above: Result Comment: Flui ds given Performed By: #### C BC ####[facility] Jqtqlowvqs[address] [place] [id number]. Lizandro Hemphill IG # 0.01 10e3/ul Normal 0.00-0.03 [facility] Comment on above: Performed By: #### C BC ####[facility] Mmizuewsih9912 [place] [address]Dr. Lizandro Hemphill IG % 0.2 % Normal 0.0-0.5 [facility] Comment on above: Performed By: #### C BC ####[facility] Oeiptbuyui67[address] [place] [address]Dr. Lizandro Hemphill LYMPH # 1.0 103/ul Critically low 1.2-3.8 [facility] Comment on above: Performed By: #### C BC ####[facility] Tqlmmdxkks7478 [place] [address]Dr. Lizandro Hemphill Lymphocytes/100 WBC (Bld) 22.8 % Normal 20.5-60.0 [facility] Comment on above: Performed By: #### C BC ####[facility] Wipeyeechd20[address] [place] [address]Dr. Lizandro Hemphill MANUAL DIFF REQ NO Normal [facility] Comment on above: Performed By: #### C BC ####[facility] Zirlvmpvax2665 [place] [address]Dr. Lizandro Hemphill MCH (RBC) [Entitic mass] 25.3 pg Critically low 26.7-34.0 [facility] Comment on above: Performed By: #### C BC ####[facility] Bgefqbihjp[address] [place] [address]Dr. Lizandro Hemphill MCHC (RBC) [Mass/Vol] 30.9 g/dL Normal 29.9-35.2 [facility] Comment on above: Performed By: #### C BC ####[facility] Oudjbbwhik45[address] [place] [address]Dr. Lizandro Hemphill MCV (RBC) [Entitic vol] 81.9 fL Normal 81.0-99.0 [facility] Comment on above: Performed By: #### C BC ####[facility] Bwqzxnhbyt2856 [place] [address]Dr. Lizandro Hemphill MONO # 0.6 103/ul Normal 0.3-0.8 [facility] Comment on above: Performed By: #### C BC ####[facility] Lbenxusaer4153 [place] [address]Dr. Lizandro Hemphill Monocytes/100 WBC (Bld) 12.3 % Critically high 1.7-12.0 [facility] Comment on above: Performed By: #### C BC ####[facility] Xgfotuciqa9832[address] [place], [place] [address]Dr. Lizandro Hemphill NEUT # 2.9 103/ul Normal 1.4-6.5 [facility] Comment on above: Performed By: #### C BC ####[facility] Nqemscpbvb2274[address] [place], [place] [address]Dr. Lizandro Hemphill Neutrophils/100 WBC (Bld) 63.1 % Normal 43.0-75.0 [facility] Comment on above: Performed By: #### C BC ####[facility] Vouzmadbfq67[address] [place], [place] [address]Dr. Lizandro Hemphill Platelet mean volume (Bld) [Entitic vol] 10.6 fL Normal 9.5-13.5 [facility] Comment on above: Performed By: #### C BC ####[facility] Lmwnarruim0[address] [place], [place] [address]Dr. Lizandro Hemphill PLT 305 103/ul Normal 150-450 [facility] Comment on above: Performed By: #### C BC ####[facility] Stdyydsjjp[address] [place], [place] [address]Dr. Lizandro Hemphill RBC 2.88 106/ul Critically low 4.20-5.40 [facility] Comment on above: Performed By: #### C BC ####[facility] Hozcbbkrmu8[address] [place], [place] [address]Dr. Lizandro Hemphill WBC 4.6 103/ul Normal 4.0-11.0 [facility] Comment on above: Performed By: #### C BC ####[facility] Qaboazszny64[address] [place] [address]Dr. Lizandro Hemphill PROF 14(COMP METB)on 023 Albumin [Mass/Vol] 2.7 g/dL Critically low 3.4-5.0 Th e [facility] Comment on above: Performed By: #### C MP ####[facility] Hrtjfggyio9[address] [place] [address]Dr. Lizandro Hemphill Albumin/Globulin [Mass ratio] 1.0 {ratio} Normal [facility] Comment on above: Performed By: #### C MP ####[facility] Pweffzihep8783 [place] [address]Dr. Lizandro Hemphill ALP [Catalytic activity/Vol] 75 U/L Normal 46-116 [facility] Comment on above: Performed By: #### C MP ####[facility] Ifjctdxkvt3279 [place] [address]Dr. Lizandro Hemphill ALT [Catalytic activity/Vol] 11 U/L Critically low 14-59 [facility] Comment on above: Performed By: #### C MP ####[facility] Sraspbwkcf7329 [place] [address]Dr. Lizandro Hemphill Anion gap [Moles/Vol] 13.9 mmol/L Normal [facility] Comment on above: Performed By: #### C MP ####[facility] Fsmsbkhiip1433 [place] [address]Dr. Lizandro Hemphill AST [Catalytic activity/Vol] 23 U/L Normal 15-37 [facility] Comment on above: Performed By: #### C MP ####[facility] Isrmnegltl9625 [place] [address]Dr. Lizandro Hemphill Bilirubin [Mass/Vol] 0.5 mg/dL Normal 0.2-1.0 [facility] Comment on above: Performed By: #### C MP ####[facility] Oscnrunrrh4580 [place] [address]Dr. Lizanrdo Hemphill Calcium [Mass/Vol] 8.3 mg/dL Critically low 8.5-10.1 Th e [facility] Comment on above: Performed By: #### C MP ####[facility] Ktgavopdyt119[address] [place] [address]Dr. Lizandro Joby Chloride [Moles/Vol] 107 mmol/L Normal 98-107 [facility] Comment on above: Performed By: #### C MP ####[facility] Qbonvqxhyf5[address] [place], [place] [address]Dr. Lizandro Hemphill CO2 [Moles/Vol] 26.4 mmol/L Normal 21.0-32.0 [facility] Comment on above: Performed By: #### C MP ####[facility] Hjojsooeho4239[address] [place], [place] [address]Dr. Shanikaannie Joby Creatinine [Mass/Vol] 1.47 mg/dL Critically high 0.55-1.02 [facility] Comment on above: Performed By: #### C MP ####[facility] Yvmuifzvqz65[address] [place], [place] [address]Dr. Lizandro Joby EGFR-AF ARMENIAN 44 mL/min/1.73m2 Critically low >=60 [facility] Comment on above: Performed By: #### C MP ####[facility] Nguylsivyk85[address] [place], [place] [address]Dr. Lizandro Joby EGFR-NON AF ARMENIAN 36 mL/min/1.73m2 Critically low >=60 [facility] Comment on above: Performed By: #### C MP ####[facility] Iolqyzbwgw9626 [place] [address]Dr. Lizandro Hemphill Globulin (S) [Mass/Vol] 2.8 g/dL Normal [facility] Comment on above: Performed By: #### C MP ####[facility] Kndbyreejh5738[address] [place], [place] [address]Dr. Lizandro Hemphill Glucose [Mass/Vol] 122 mg/dL Critically high 74-106 [facility] Comment on above: Performed By: #### C MP ####[facility] Ylefravfqc1325[address] [place], [place] [address]Dr. Lizandro Hemphill Potassium [Moles/Vol] 3.3 mmol/L Critically low 3.5-5.1 [facility] Comment on above: Performed By: #### C MP ####[facility] Esycmhsptx9481 [place] [address]Dr. Lizandro Hemphill Protein [Mass/Vol] 5.5 g/dL Critically low 6.4-8.2 Th [facility] Comment on above: Performed By: #### C MP ####[facility] Jgwtepqvip6676 [place] [address]Dr. Lizandro Hemphill Sodium [Moles/Vol] 144 mmol/L Normal 136-145 [facility] Comment on above: Performed By: #### C MP ####[facility] Hgcfdirvlb5936[address] [place], [place] [address]Dr. Lizandro Hemphill Urea nitrogen [Mass/Vol] 19.0 mg/dL Critically high 7.0-18.0 [facility] Comment on above: Performed By: #### C MP ####[facility] Xapbcvgeqm[address] [place], [place] [address]Dr. Lizandro Hemphill Urea nitrogen/Creatinin e [Mass ratio] 12.9 mg/mg Normal [facility] Comment on above: Performed By: #### C MP ####[facility] Mjgsvqapbr9[address] [place], [place] [address]Dr. Lizandro Hemphill PROTIMEon 05-27-2022 INR Coag (PPP) [Relative time] 1.18 {INR} Normal [facility] Comment on above: Performed By: #### P T ####[facility] Chvecnhpps[address] [place], [place] [address]Dr. Lizandro Hemphill INR GUIDELINES SEE BELOW Normal [facility] Comment on above: Result Comment: GUEVARA RED INR: 2.0 - 3.0 CONDITIONS NOT LISTED BELOW 2.5 - 3.5 FOR PROSTHETIC HEART VALVE REPLACEMENT 2.5 - 3.5 RECURRENT THROMBOSIS Performed By: #### P T ####[facility] Okknzakjtf9365[address] [place], [place] [address]Dr. Lizandro Hemphill PT Coag (PPP) [Time] 12.4 s Critically high 9.0-11.6 [facility] Comment on above: Performed By: #### P T ####[facility] Biyeuzvxub6932[address] [place], [place] [address]Dr. Lizandro Hemphill TYPE AND SCREENon 05-27-2022 TYPE AND SCREEN Negative Normal [facility] Comment on above: Performed By: #### T NS ####[facility] Ojxyyesiwt4739[address] [place], [place] [address]Dr. Lizandro Hemphill CBC AUTO DIFFon 05-26-2022 BASO # 0.1 103/ul Normal 0.0-0.1 [facility] Comment on above: Performed By: #### C BC ####[facility] Cjdacdjjst[address] [place], [place] [address]Dr. Lizandro Hemphill Basophils/100 WBC (Bld) 0.6 % Normal 0.2-2.0 [facility] Comment on above: Performed By: #### C BC ####[facility] Vjwtpmpuqa034[address] [place], [place] [address]Dr. Lizandro Hemphill EO # 0.0 103/ul Normal 0.0-0.7 [facility] Comment on above: Performed By: #### C BC ####[facility] Uxqepvxdht5248[address] [place], [place] [address]Dr. Lizandro Hemphill Eosinophils/100 WBC (Bld) 0.2 % Critically low 0.9-7.0 [facility] Comment on above: Performed By: #### C BC ####[facility] Hptmekcnxy0554[address] [place], [place] [address]Dr. Lizandro Hemphill Erythrocyte distribution width (RBC) [Ratio] 20.1 % Critically high 11.0-15.0 [facility] Comment on above: Performed By: #### C BC ####[facility] Ywivcwsakd787[address] [place], [place] [address]Dr. Lizandro Hemphill Hematocrit (Bld) [Volume fraction] 31.2 % Critically low 36.0-48.0 [facility] Comment on above: Performed By: #### C BC ####[facility] Lsvxzlmbwk9135[address] [place], [place] [address]Dr. Lizandro Hemphill Hemoglobin (Bld) [Mass/Vol] 9.8 g/dL Critically low 12.0-16.0 [facility] Comment on above: Performed By: #### C BC ####[facility] Fjlzuhkfyr57[address] [place] [address]DrCiro Hemphill IG # 0.03 10e3/ul Normal 0.00-0.03 [facility] Comment on above: Performed By: #### C BC ####[facility] Xzlcfxekmt[address] [place], [place] [address]DrCiro Hemphill IG % 0.3 % Normal 0.0-0.5 [facility] Comment on above: Performed By: #### C BC ####[facility] Mrxsdqobmt556[address] [place], [place] [address]DrCiro Hemphill LYMPH # 1.4 103/ul Normal 1.2-3.8 [facility] Comment on above: Performed By: #### C BC ####[facility] Uknwtpfzma[address] [place], [place] [address]DrCiro Hemphill Lymphocytes/100 WBC (Bld) 15.1 % Critically low 20.5-60.0 [facility] Comment on above: Performed By: #### C BC ####[facility] Vghddvlgsg[address] [place], [place] [address]DrCiro Hemphill MANUAL DIFF REQ NO Normal [facility] Comment on above: Performed By: #### C BC ####[facility] Tpgatlhnzj9165[address] [place], [place] [address]DrCiro Hemphill MCH (RBC) [Entitic mass] 25.1 pg Critically low 26.7-34.0 [facility] Comment on above: Performed By: #### C BC ####[facility] Vwxqtdnozo2497[address] [place], [place] [address]DrCiro Hemphill MCHC (RBC) [Mass/Vol] 31.4 g/dL Normal 29.9-35.2 [facility] Comment on above: Performed By: #### C BC ####[facility] Affsfnwsqq6401[address] [place], [place] [address]DrCiro Hemphill MCV (RBC) [Entitic vol] 79.8 fL Critically low 81.0-99.0 [facility] Comment on above: Performed By: #### C BC ####[facility] Uevisqqyjw956[address] [place], [place] [address]DrCiro Hemphill MONO # 1.0 103/ul Critically high 0.3-0.8 [facility] Comment on above: Performed By: #### C BC ####[facility] Dwoovoqkxk1727[address] [place], [place] [address]DrCiro Lizandro Joby Monocytes/100 WBC (Bld) 11.5 % Normal 1.7-12.0 [facility] Comment on above: Performed By: #### C BC ####[facility] Gpwrtuztlo597[address] [place], [place] [address]DrCiro Lizandro Hemphill NEUT # 6.5 103/ul Normal 1.4-6.5 [facility] Comment on above: Performed By: #### C BC ####[facility] Jzkfnqxxyf5209[address] [place], [place] [address]DrCiro Lizandro Joby Neutrophils/100 WBC (Bld) 72.3 % Normal 43.0-75.0 [facility] Comment on above: Performed By: #### C BC ####[facility] Vadalsgufl6433[address] [place], [place] [address]DrCiro Lizandro Joby Platelet mean volume (Bld) [Entitic vol] 10.2 fL Normal 9.5-13.5 [facility] Comment on above: Performed By: #### C BC ####[facility] Ntelkmqvqp145[address] [place], [place] [address]DrCiro Vossannie Joby PLT 395 103/ul Normal 150-450 [facility] Comment on above: Performed By: #### C BC ####[facility] Vwfzewrdjk8[address] [place], [place] [address]DrCiro Vossannie Joby RBC 3.91 106/ul Critically low 4.20-5.40 [facility] Comment on above: Performed By: #### C BC ####[facility] Hahwyyaehn55[address] [place], [place] [address]DrCiro Hemphill WBC 9.0 103/ul Normal 4.0-11.0 [facility] Comment on above: Performed By: #### C BC ####[facility] Xukcggspsl5356 [place] [id number]. Lizandro Hemphill CPKon 05-26-2022 CK [Catalytic activity/Vol] 260 U/L Critically high 26-192 [facility] Comment on above: Performed By: #### L IPA, CMP, CK, HSTROPN ####[facility] Eofdcppymk5780 [place] [id number]. Lizandro Hemphill [facility]on SARS-CoV-2 (COVID-19) RNA VERITO+probe Ql (Unsp spec) Not detected Normal NOT DETECTED [facility] Comment on above: Result Comment: When [...] for this test is supported by the [place] of [employer] and [employer] Service's declaration that [...] be used). Performed By: #### C VDTBH ####[facility] Myfpdtmhvf2670 [place] [id number]. Lizandro Hemphill LIPASEon 05-26-2022 Lipase [Catalytic activity/Vol] 258.0 U/L Normal 73.0-393.0 [facility] Comment on above: Performed By: #### L IPA, CMP, CK, HSTROPN ####[facility] Cnooyfnkgl4807 [place] [id number]. Lizandro Hemphill PH VENOUS BLOODon 05-26-2022 PCO2 VENOUS 28.2 mmHg Critically low 40.0-52.0 [facility] Comment on above: Performed By: #### P HVEN ####[facility] Stxcnziiyw9055 [place] [address]Dr. Lizandro Hemphill pH VENOUS 7.554 Critically high 7.330-7.430 [facility] Comment on above: Performed By: #### P HVEN ####[facility] Fffvjnztza4004 [place] [address]Dr. Lizandro Hemphill PROF 14(COMP METB)on 023 Albumin [Mass/Vol] 3.8 g/dL Normal 3.4-5.0 [facility] Comment on above: Performed By: #### L IPA, CMP, CK, HSTROPN ####[facility] Gglsujyruo64[address] [place] [address]Dr. Lizandro Hemphill Albumin/Globulin [Mass ratio] 1.0 {ratio} Normal [facility] Comment on above: Performed By: #### L IPA, CMP, CK, HSTROPN ####[facility] Icjreocvfm6585 [place] [address]Dr. Lizandro Hemphill ALP [Catalytic activity/Vol] 115 U/L Normal 46-116 [facility] Comment on above: Performed By: #### L IPA, CMP, CK, HSTROPN ####[facility] Hgexphzupj5382 [place] [address]Dr. Lizandro Hemphill ALT [Catalytic activity/Vol] 36 U/L Normal 14-59 [facility] Comment on above: Performed By: #### L IPA, CMP, CK, HSTROPN ####[facility] Hsyyktmppy[address] [place] [address]Dr. Lizandro Hemphill Anion gap [Moles/Vol] 15.9 mmol/L Normal [facility] Comment on above: Performed By: #### L IPA, CMP, CK, HSTROPN ####[facility] Unkqssqdpy8744 [place] [address]Dr. Lizandro Hemphill AST [Catalytic activity/Vol] 46 U/L Critically high 15-37 [facility] Comment on above: Performed By: #### L IPA, CMP, CK, HSTROPN ####[facility] Fgczqtgwqu4871 [place] [address]Dr. Lizandro Hemphill Bilirubin [Mass/Vol] 0.4 mg/dL Normal 0.2-1.0 [facility] Comment on above: Performed By: #### L IPA, CMP, CK, HSTROPN ####[facility] Ipfbqbnhag57[address] [place], [place] [address]Dr. Lizandro Hemphill Calcium [Mass/Vol] 9.5 mg/dL Normal 8.5-10.1 [facility] Comment on above: Performed By: #### L IPA, CMP, CK, HSTROPN ####[facility] Lvtghrlsen6[address] [place], [place] [address]Dr. Lizandro Hemphill Chloride [Moles/Vol] 104 mmol/L Normal 98-107 [facility] Comment on above: Performed By: #### L IPA, CMP, CK, HSTROPN ####[facility] Ajmblikaeb06[address] [place], [place] [address]Dr. Lizandro Hemphill CO2 [Moles/Vol] 24.7 mmol/L Normal 21.0-32.0 [facility] Comment on above: Performed By: #### L IPA, CMP, CK, HSTROPN ####[facility] Fvtrxslpyd750[address] [place], [place] [address]Dr. Lizandro Hemphill Creatinine [Mass/Vol] 1.12 mg/dL Critically high 0.55-1.02 [facility] Comment on above: Performed By: #### L IPA, CMP, CK, HSTROPN ####[facility] Vcqwywfstg[address] [place], [place] [address]Dr. Lizandro Hemphill EGFR-AF ARMENIAN 60 mL/min/1.73m2 Normal >=60 [facility] Comment on above: Performed By: #### L IPA, CMP, CK, HSTROPN ####[facility] Izvmcivbce9[address] [place], [place] [address]Dr. Lizandro Hemphill EGFR-NON AF ARMENIAN 50 mL/min/1.73m2 Critically low >=60 [facility] Comment on above: Performed By: #### L IPA, CMP, CK, HSTROPN ####[facility] Aqnwqncnjg0208 [place] [address]Dr. Lizandro Hemphill Globulin (S) [Mass/Vol] 3.8 g/dL Normal [facility] Comment on above: Performed By: #### L IPA, CMP, CK, HSTROPN ####[facility] Jukjkmnyyh9[address] [place] [address]Dr. Lizandro Hemphill Glucose [Mass/Vol] 92 mg/dL Normal 74-106 [facility] Comment on above: Performed By: #### L IPA, CMP, CK, HSTROPN ####[facility] Ipugwhzgms[address] [place], [place] [address]Dr. Lizandro Hemphill Potassium [Moles/Vol] 3.6 mmol/L Normal 3.5-5.1 [facility] Comment on above: Performed By: #### L IPA, CMP, CK, HSTROPN ####[facility] Dseroesyou9[address] [place], [place] [address]Dr. Lizandro Hemphill Protein [Mass/Vol] 7.6 g/dL Normal 6.4-8.2 [facility] Comment on above: Performed By: #### L IPA, CMP, CK, HSTROPN ####[facility] Ivcrgwboot[address] [place], [place] [address]Dr. Lizandro Hemphill Sodium [Moles/Vol] 141 mmol/L Normal 136-145 [facility] Comment on above: Performed By: #### L IPA, CMP, CK, HSTROPN ####[facility] Vwfuytvowg[address] [place], [place] [address]Dr. Lizandro Hemphill Urea nitrogen [Mass/Vol] 22.0 mg/dL Critically high 7.0-18.0 [facility] Comment on above: Performed By: #### L IPA, CMP, CK, HSTROPN ####[facility] [address] [place], [place] [address]Dr. Yilan Hemphill Urea nitrogen/Creatinin e [Mass ratio] 19.6 mg/mg Normal [facility] Comment on above: Performed By: #### L IPA, CMP, CK, HSTROPN ####[facility] [address] [place] [address]Dr. Lizandro Hemphill TROPONIN, HIGH SENSITIVITYon 05-26-2022 HSTROP 8.9 pg/mL Normal 4.0-51.3 [facility] Comment on above: Result Comment: CUT- OFF POINTS HAVE BEEN ESTABLISHED BASED ON THE FOURTH UNIVERSAL DEFINITIONS OF MYOCARDIALINFARCTION. THE UPPER REFERENCE LIMIT (URL) OF TROPONIN, DEFINED THE 99TH PERCENTILE OFcTnI DISTRIBUTION IN A REFERENCE POPULATION, HAS BEEN CONFIRMED THE DECISION THRESHOLDFOR [place] DIAGNOSIS. Performed By: #### L IPA, CMP, CK, HSTROPN ####[facility] [address] [place], [place] [address]Dr. Lizandro Hemphill XR CHEST 1 Von 05-26-2022 XR CHEST 1 V Normal [facility] TROPONIN, HIGH SENSITIVITYon 05-23-2022 HSTROP 9.8 pg/mL Normal 4.0-51.3 [facility] Comment on above: Result Comment: CUT- OFF POINTS HAVE BEEN ESTABLISHED BASED ON THE FOURTH UNIVERSAL DEFINITIONS OF MYOCARDIALINFARCTION. THE UPPER REFERENCE LIMIT (URL) OF TROPONIN, DEFINED THE 99TH PERCENTILE OFcTnI DISTRIBUTION IN A REFERENCE POPULATION, HAS BEEN CONFIRMED THE DECISION THRESHOLDFOR [place] DIAGNOSIS. Performed By: #### H STROPN ####[facility] [address]qfs[address]unc[address] [place] [address]Dr. Lizandro Hemphill CBC AUTO DIFFon 05-22-2022 BASO # 0.1 103/ul Normal 0.0-0.1 [facility] Comment on above: Performed By: #### C BC ####[facility] K[address]ht[address] [place] [address]Dr. Lizandro Hemphill Basophils/100 WBC (Bld) 0.9 % Normal 0.2-2.0 [facility] Comment on above: Performed By: #### C BC ####[facility] Xjtaplslgl[address] [place] [address]Dr. Lizandro Hemphill EO # 0.0 103/ul Normal 0.0-0.7 [facility] Comment on above: Performed By: #### C BC ####[facility] Atcryfjycq[address] [place] [address]Dr. Lizandro Joby Eosinophils/100 WBC (Bld) 0.1 % Critically low 0.9-7.0 [facility] Comment on above: Performed By: #### C BC ####[facility] Wpvwem[address] [place], [place] [address]Dr. Lizandro Joby Erythrocyte distribution width (RBC) [Ratio] 19.3 % Critically high 11.0-15.0 [facility] Comment on above: Performed By: #### C BC ####[facility] Xfzpjkuzik[address] [place], [place] [address]Dr. Lizandro Hemphill Hematocrit (Bld) [Volume fraction] 31.1 % Critically low 36.0-48.0 [facility] Comment on above: Performed By: #### C BC ####[facility] Pegpiuqeqk[address] [place], [place] [address]Dr. Lizandro Hemphill Hemoglobin (Bld) [Mass/Vol] 9.8 g/dL Critically low 12.0-16.0 [facility] Comment on above: Performed By: #### C BC ####[facility] M[address]wxe[address] [place], [place] [address]Dr. Shanikaannie Joby IG # 0.04 10e3/ul Critically high 0.00-0.03 [facility] Comment on above: Performed By: #### C BC ####[facility] Euevvspuhg0[address] [place], [place] [address]Dr. Lizandro Hemphill IG % 0.4 % Normal 0.0-0.5 [facility] Comment on above: Performed By: #### C BC ####[facility] Mmlxoalzrd[address] [place], [place] [address]Dr. Lizandro Hemphill LYMPH # 1.5 103/ul Normal 1.2-3.8 [facility] Comment on above: Performed By: #### C BC ####[facility] Nviyyqzrrl[address] [place], [place] [address]DrCiro Hemphill Lymphocytes/100 WBC (Bld) 15.1 % Critically low 20.5-60.0 [facility] Comment on above: Performed By: #### C BC ####[facility] Rexbpkioup[address] [place] [address]DrCiro Hemphill MANUAL DIFF REQ NO Normal [facility] Comment on above: Performed By: #### C BC ####[facility] Zpligcxnpd5[address] [place] [address]DrCiro Hemphill MCH (RBC) [Entitic mass] 24.7 pg Critically low 26.7-34.0 [facility] Comment on above: Performed By: #### C BC ####[facility] Uzlnussqxf[address] [place], [place] [address]DrCiro Hemphill MCHC (RBC) [Mass/Vol] 31.5 g/dL Normal 29.9-35.2 [facility] Comment on above: Performed By: #### C BC ####[facility] Swifezzfmu[address] [place], [place] [address]DrCiro Hemphill MCV (RBC) [Entitic vol] 78.3 fL Critically low 81.0-99.0 [facility] Comment on above: Performed By: #### C BC ####[facility] Obrihrxumn[address] [place], [place] [address]DrCiro Hemphill MONO # 1.1 103/ul Critically high 0.3-0.8 [facility] Comment on above: Performed By: #### C BC ####[facility] Qvyhirrvqc[address] [place], [place] [address]DrCiro Hemphill Monocytes/100 WBC (Bld) 11.4 % Normal 1.7-12.0 [facility] Comment on above: Performed By: #### C BC ####[facility] Fhgorim[address] [place], [place] [address]DrCiro Hemphill NEUT # 7.1 103/ul Critically high 1.4-6.5 [facility] Comment on above: Performed By: #### C BC ####[facility] Bhbebnzlsv[address] [place], [place] [address]Dr. Lizandro Hemphill Neutrophils/100 WBC (Bld) 72.1 % Normal 43.0-75.0 [facility] Comment on above: Performed By: #### C BC ####[facility] Sskbomtdxc0242 [place] [address]Dr. Lizandro Hemphill Platelet mean volume (Bld) [Entitic vol] 10.3 fL Normal 9.5-13.5 [facility] Comment on above: Performed By: #### C BC ####[facility] Yaerfmyynv[address] [place] [address]Dr. Lizandro Hemphill PLT 491 103/ul Critically high 150-450 [facility] Comment on above: Performed By: #### C BC ####[facility] Lzphssgahj44[address] [place] [address]Dr. Lizandro Hemphill RBC 3.97 106/ul Critically low 4.20-5.40 [facility] Comment on above: Performed By: #### C BC ####[facility] Nvksabeiqn20[address] [place] [address]Dr. Lizandro Hemphill WBC 9.8 103/ul Normal 4.0-11.0 [facility] Comment on above: Performed By: #### C BC ####[facility] Dvzxsfubiv20[address] [place] [id number]. Lizandro Hemphill D-DIMERon 05-22-2022 D-DIMER 0.37 mg/L FEU Normal <=0.59 [facility] Comment on above: Performed By: #### D DIM ####[facility] Ymmpktnsza[address] [place], [place] [address]Dr. Lizandro Hemphill D-DIMER COMMENTS SEE BELOW Normal [facility] Comment on above: Result Comment: [...] generalized hospitalization. Performed By: #### D DIM ####[facility] Jatqjfxldu[address] [place] [address]Dr. Lizandro Hemphill LACTATE/LACTIC ACIDon 2022 Lactate [Moles/Vol] 2.7 mmol/L Critically high 0.4-1.9 [facility] Comment on above: Performed By: #### L ACT ####[facility] Xllyuvidtx[address] [place] [address]Dr. Lizandro Hemphill PROF 14(COMP METB)on 023 Albumin [Mass/Vol] 4.1 g/dL Normal 3.4-5.0 [facility] Comment on above: Performed By: #### C MARGARITA HSTROPN ####[facility] Hapwznqxdy[address] [place] [address]Dr. Lizandro Hemphill Albumin/Globulin [Mass ratio] 1.1 {ratio} Normal [facility] Comment on above: Performed By: #### C MARGARITA HSTROPN ####[facility] Nmmsydawmp[address] [place] [address]Dr. Lizandro Hemphill ALP [Catalytic activity/Vol] 142 U/L Critically high 46-116 [facility] Comment on above: Performed By: #### C MARGARITA HSTROPN ####[facility] Iyoohxlrgi[address] [place] [address]Dr. Lizandro Hemphill ALT [Catalytic activity/Vol] 37 U/L Normal 14-59 [facility] Comment on above: Performed By: #### C MARGARITA HSTROPN ####[facility] Hfttawowke[address] [place] [address]Dr. Lizandro Hemphill Anion gap [Moles/Vol] 20.2 mmol/L Normal [facility] Comment on above: Performed By: #### C MARGARITA HSTROPN ####[facility] Ebawxkhyiu[address] [place] [address]Dr. Lizandro Hemphill AST [Catalytic activity/Vol] 38 U/L Critically high 15-37 [facility] Comment on above: Performed By: #### C MARGARITA HSTROPN ####[facility] Ditccdxjcg6[address] [place] [address]Dr. Lizandro Hemphill Bilirubin [Mass/Vol] 0.5 mg/dL Normal 0.2-1.0 [facility] Comment on above: Performed By: #### C MP, HSTROPN ####[facility] Fryprqvfch[address] [place] [address]Dr. Shanikaannie Hemphill Calcium [Mass/Vol] 10.0 mg/dL Normal 8.5-10.1 [facility] Comment on above: Performed By: #### C MP, HSTROPN ####[facility] Hvicgdrzwf[address] [place] [address]Dr. Shanikaannie Hemphill Chloride [Moles/Vol] 99 mmol/L Normal 98-107 [facility] Comment on above: Performed By: #### C MP, HSTROPN ####[facility] Kyffwjhxyx[address] [place] [address]Dr. Lizandro Hemphill CO2 [Moles/Vol] 21.8 mmol/L Normal 21.0-32.0 [facility] Comment on above: Performed By: #### C MP, HSTROPN ####[facility] Frfrfonmjx17[address] [place] [address]Dr. Shanikaannie Hemphill Creatinine [Mass/Vol] 1.19 mg/dL Critically high 0.55-1.02 [facility] Comment on above: Performed By: #### C MP, HSTROPN ####[facility] Lmczjvgcsi[address] [place] [address]Dr. Lizandro Joby EGFR-AF ARMENIAN 56 mL/min/1.73m2 Critically low >=60 [facility] Comment on above: Performed By: #### C MP, HSTROPN ####[facility] Egtnqvalmx[address] [place] [address]Dr. Shanikaannie Joby EGFR-NON AF ARMENIAN 46 mL/min/1.73m2 Critically low >=60 [facility] Comment on above: Performed By: #### C MP, HSTROPN ####[facility] Cbppmfyqim4[address] [place] [address]Dr. Lizandro Hemphill Globulin (S) [Mass/Vol] 3.8 g/dL Normal [facility] Comment on above: Performed By: #### C MARGARITA, HSTROPN ####[facility] Zvgukepkot65[address] [place] [address]Dr. Lizandro Hemphill Glucose [Mass/Vol] 107 mg/dL Critically high 74-106 [facility] Comment on above: Performed By: #### C MARGARITA, HSTROPN ####[facility] Pvezubwneb25[address] [place] [address]Dr. Lizandro Hemphill Potassium [Moles/Vol] 4.0 mmol/L Normal 3.5-5.1 [facility] Comment on above: Performed By: #### C MARGARITA, HSTROPN ####[facility] Jehxgfmpsm[address] [place], [place] [address]Dr. Lizandro Hemphill Protein [Mass/Vol] 7.9 g/dL Normal 6.4-8.2 [facility] Comment on above: Performed By: #### C MARGARITA, HSTROPN ####[facility] H[address]zptbcb[address] [place], [place] [address]Dr. Lizandro Hemphill Sodium [Moles/Vol] 137 mmol/L Normal 136-145 [facility] Comment on above: Performed By: #### C MARGARITA, HSTROPN ####[facility] Csdybmlmsy[address] [place] [address]Dr. Lizandro Hemphill Urea nitrogen [Mass/Vol] 20.0 mg/dL Critically high 7.0-18.0 [facility] Comment on above: Performed By: #### C MARGARITA, HSTROPN ####[facility] Pydsqobfcd[address] [place] [address]Dr. Lizandro Hemphill Urea nitrogen/Creatinin e [Mass ratio] 16.8 mg/mg Normal [facility] Comment on above: Performed By: #### C MARGARITA, HSTROPN ####[facility] E[address]rlmsfi24[address] [place] [address]Dr. Lizandro Hemphill TROPONIN, HIGH SENSITIVITYon 05-22-2022 HSTROP 10.2 pg/mL Normal 4.0-51.3 [facility] Comment on above: Result Comment: CUT- OFF POINTS HAVE BEEN ESTABLISHED BASED ON THE FOURTH UNIVERSAL DEFINITIONS OF MYOCARDIALINFARCTION. THE UPPER REFERENCE LIMIT (URL) OF TROPONIN, DEFINED THE 99TH PERCENTILE OFcTnI DISTRIBUTION IN A REFERENCE POPULATION, HAS BEEN CONFIRMED THE DECISION THRESHOLDFOR [place] DIAGNOSIS. Performed By: #### C MP, HSTROPN ####[facility] Qboiluyyyv[address] [place] [address]Dr. Lizandro Hemphill XR CHEST 1 Von 05-22-2022 XR CHEST 1 V Normal [facility] CBC AUTO DIFFon 05-06-2022 BASO # 0.1 103/ul Normal 0.0-0.1 [facility] Comment on above: Performed By: #### C BC ####[facility] Fifccqdtio8056 [place] [address]Dr. Lizandro Hemphill Basophils/100 WBC (Bld) 0.9 % Normal 0.2-2.0 [facility] Comment on above: Performed By: #### C BC ####[facility] Mvehwwignu[address] [place], [place] [address]Dr. Lizandro Hemphill EO # 0.1 103/ul Normal 0.0-0.7 [facility] Comment on above: Performed By: #### C BC ####[facility] Nhxmiltzmz22[address] [place] [address]Dr. Lizandro Hemphill Eosinophils/100 WBC (Bld) 0.9 % Normal 0.9-7.0 [facility] Comment on above: Performed By: #### C BC ####[facility] Acaiigwdby64[address] [place] [address]Dr. Lizandro Hemphill Erythrocyte distribution width (RBC) [Ratio] 18.9 % Critically high 11.0-15.0 [facility] Comment on above: Performed By: #### C BC ####[facility] Mzldfssmnp[address] [place] [address]Dr. Lizandro Hemphill Hematocrit (Bld) [Volume fraction] 27.0 % Critically low 36.0-48.0 [facility] Comment on above: Performed By: #### C BC ####[facility] Tjmcswzrpj88[address] [place] [id number]. Lizandro Hemphill Hemoglobin (Bld) [Mass/Vol] 8.2 g/dL Critically low 12.0-16.0 [facility] Comment on above: Performed By: #### C BC ####[facility] Ysngckxrsy300[address] [place] [id number]. Shanikaannie Hemphill IG # 0.01 10e3/ul Normal 0.00-0.03 [facility] Comment on above: Performed By: #### C BC ####[facility] Ixtxfaixqq4401 [place] [id number]. Lizanrdo Hemphill IG % 0.2 % Normal 0.0-0.5 [facility] Comment on above: Performed By: #### C BC ####[facility] Hkipbufary[address] [place] [address]Dr. Shanikaannie Joby LYMPH # 1.1 103/ul Critically low 1.2-3.8 [facility] Comment on above: Performed By: #### C BC ####[facility] Yiumodchhr[address] [place] [address]Dr. Shanikaannie Hemphill Lymphocytes/100 WBC (Bld) 17.0 % Critically low 20.5-60.0 [facility] Comment on above: Performed By: #### C BC ####[facility] Opucbiytdu6[address] [place] [address]Dr. Lizandro Joby MANUAL DIFF REQ NO Normal [facility] Comment on above: Performed By: #### C BC ####[facility] Qvozgaxhff0045 [place] [address]Dr. Lizandro Hemphill MCH (RBC) [Entitic mass] 25.8 pg Critically low 26.7-34.0 [facility] Comment on above: Performed By: #### C BC ####[facility] Xdcmdcyulk7613 [place] [address]Dr. Shanikaannie Joby MCHC (RBC) [Mass/Vol] 30.4 g/dL Normal 29.9-35.2 [facility] Comment on above: Performed By: #### C BC ####[facility] Hskusqoixe2866 [place] [id number]. Lizandro Hemphill MCV (RBC) [Entitic vol] 84.9 fL Normal 81.0-99.0 [facility] Comment on above: Performed By: #### C BC ####[facility] Hjdggdbrow6919 [place] [id number]. Lizandro Hemphill MONO # 0.7 103/ul Normal 0.3-0.8 [facility] Comment on above: Performed By: #### C BC ####[facility] Yjpiauqqju6969 [place] [id number]. Lizandro Hemphill Monocytes/100 WBC (Bld) 11.6 % Normal 1.7-12.0 [facility] Comment on above: Performed By: #### C BC ####[facility] Kvst[address]tsx[address] [place], [place] [id number]. Lizandro Hemphill NEUT # 4.4 103/ul Normal 1.4-6.5 [facility] Comment on above: Performed By: #### C BC ####[facility] Zkecz[address]wdf[address] [place], [place] [address]Dr. Lizandro Hemphill Neutrophils/100 WBC (Bld) 69.4 % Normal 43.0-75.0 [facility] Comment on above: Performed By: #### C BC ####[facility] Pwxuydgenr1518 [place] [id number]. Lizandro Hemphill Platelet mean volume (Bld) [Entitic vol] 10.8 fL Normal 9.5-13.5 [facility] Comment on above: Performed By: #### C BC ####[facility] Jwawwcbunh2307 [place] [id number]. Lizandro Hemphill PLT 291 103/ul Normal 150-450 [facility] Comment on above: Performed By: #### C BC ####[facility] Wfzklqgyty1352 [place] [id number]. Lizandro Hemphill RBC 3.18 106/ul Critically low 4.20-5.40 [facility] Comment on above: Performed By: #### C BC ####[facility] Xptehlnvsg8587 [place] [address]Dr. Lizandro Hemphill WBC 6.4 103/ul Normal 4.0-11.0 [facility] Comment on above: Performed By: #### C BC ####[facility] Thlbsanune18[address] [place] [address]Dr. Lizandro Hemphill PROF 14(COMP METB)on 023 Albumin [Mass/Vol] 2.4 g/dL Critically low 3.4-5.0 [facility] e [facility] Comment on above: Performed By: #### C MP ####[facility] Xkpuabiskc6186 [place] [address]Dr. Lizandro Hemphill Albumin/Globulin [Mass ratio] 0.8 {ratio} Normal [facility] Comment on above: Performed By: #### C MP ####[facility] Lfrlfzapzi[address] [place], [place] [address]Dr. Lizandro Hemphill ALP [Catalytic activity/Vol] 121 U/L Critically high 46-116 [facility] Comment on above: Performed By: #### C MP ####[facility] Nocorvclew[address] [place], [place] [address]Dr. Lizandro Hemphill ALT [Catalytic activity/Vol] 17 U/L Normal 14-59 [facility] Comment on above: Performed By: #### C MP ####[facility] Qlrwkfnpou2[address] [place], [place] [address]Dr. Lizandro Hemphill Anion gap [Moles/Vol] 10.9 mmol/L Normal [facility] Comment on above: Performed By: #### C MP ####[facility] Vglbcdpqdt86[address] [place], [place] [address]Dr. Lizandro Hemphill AST [Catalytic activity/Vol] 23 U/L Normal 15-37 [facility] Comment on above: Performed By: #### C MP ####[facility] Uouyleoadm9[address] [place], [place] [address]Dr. Lizandro Hemphill Bilirubin [Mass/Vol] 0.2 mg/dL Normal 0.2-1.0 [facility] Comment on above: Performed By: #### C MP ####[facility] Shdwzxrfkg4145 [place] [address]Dr. Lizandro Hemphill Calcium [Mass/Vol] 8.3 mg/dL Critically low 8.5-10.1 [facility] Comment on above: Performed By: #### C MP ####[facility] Wqyswjoeor6618 [place] [address]Dr. Lizandro Hemphill Chloride [Moles/Vol] 106 mmol/L Normal 98-107 [facility] Comment on above: Performed By: #### C MP ####[facility] Lflhrdjrsh6712 [place] [address]Dr. Lizandro Hemphill CO2 [Moles/Vol] 26.7 mmol/L Normal 21.0-32.0 [facility] Comment on above: Performed By: #### C MP ####[facility] Loojjfgwvq[address] [place], [place] [address]Dr. Lizandro Hemphill Creatinine [Mass/Vol] 0.88 mg/dL Normal 0.55-1.02 [facility] Comment on above: Performed By: #### C MP ####[facility] Vwotpriiud[address] [place], [place] [address]Dr. Lizandro Hemphill EGFR-AF ARMENIAN >60 Normal >=60 [facility] Comment on above: Performed By: #### C MP ####[facility] Eqpyhoznwc032[address] [place], [place] [address]Dr. Lizandro Hemphill EGFR-NON AF ARMENIAN >60 Normal >=60 [facility] Comment on above: Performed By: #### C MP ####[facility] Aynfhvcstu80[address] [place], [place] [address]Dr. Lizandro Hemphill Globulin (S) [Mass/Vol] 3.0 g/dL Normal [facility] Comment on above: Performed By: #### C MP ####[facility] Krgsoabwom50[address] [place], [place] [address]Dr. Lizandro Joby Glucose [Mass/Vol] 101 mg/dL Normal 74-106 [facility] Comment on above: Performed By: #### C MP ####[facility] Tjgtrjwrml88[address] [place], [place] [address]Dr. Lizandro Joby Potassium [Moles/Vol] 3.6 mmol/L Normal 3.5-5.1 [facility] Comment on above: Performed By: #### C MP ####[facility] Mgzmapscij[address] [place], [place] [address]Dr. Lizandro Hemphill Protein [Mass/Vol] 5.4 g/dL Critically low 6.4-8.2 [facility] Comment on above: Performed By: #### C MP ####[facility] Hsrqorfjtu[address] [place], [place] [address]Dr. Lizandro Hemphill Sodium [Moles/Vol] 140 mmol/L Normal 136-145 [facility] Comment on above: Performed By: #### C MP ####[facility] Bqdeoubqjx[address] [place], [place] [address]Dr. Lizandro Hemphill Urea nitrogen [Mass/Vol] 11.0 mg/dL Normal 7.0-18.0 [facility] Comment on above: Performed By: #### C MP ####[facility] Nuebhbnfsb[address] [place], [place] [address]Dr. Lizandro Hemphill Urea nitrogen/Creatinin e [Mass ratio] 12.5 mg/mg Normal [facility] Comment on above: Performed By: #### C MP ####[facility] Kxmpjwvrjz[address] [place], [place] [address]DrCiro Hemphill PROTIMEon 05-06-2022 INR Coag (PPP) [Relative time] 1.49 {INR} Normal [facility] Comment on above: Performed By: #### P T ####[facility] Nuhhchswxx[address] [place], [place] [address]Dr. Lizandro Hemphill INR GUIDELINES SEE BELOW Normal [facility] Comment on above: Result Comment: GUEVARA RED INR: 2.0 - 3.0 CONDITIONS NOT LISTED BELOW 2.5 - 3.5 FOR PROSTHETIC HEART VALVE REPLACEMENT 2.5 - 3.5 RECURRENT THROMBOSIS Performed By: #### P T ####[facility] Ufikkihjbx[address] [place], [place] [address]Dr. Lizandro Hemphill PT Coag (PPP) [Time] 15.4 s Critically high 9.0-11.6 [facility] Comment on above: Performed By: #### P T ####[facility] Afrseywwwt44[address] [place] [address]Dr. Lizandro Joby CBC AUTO DIFFon 05-05-2022 BASO # 0.0 103/ul Normal 0.0-0.1 [facility] Comment on above: Performed By: #### C BC ####[facility] Cxjjpfipvt[address] [place], [place] [address]Dr. Lizandro Hemphill Basophils/100 WBC (Bld) 0.6 % Normal 0.2-2.0 [facility] Comment on above: Performed By: #### C BC ####[facility] Oqykoifulo[address] [place], [place] [address]Dr. Lizandro Hemphill EO # 0.0 103/ul Normal 0.0-0.7 [facility] Comment on above: Performed By: #### C BC ####[facility] Vzpnxsgfii[address] [place], [place] [address]Dr. Lizandro Hemphill Eosinophils/100 WBC (Bld) 0.6 % Critically low 0.9-7.0 [facility] Comment on above: Performed By: #### C BC ####[facility] S[address]wooetchm[address] [place], [place] [address]Dr. Lizandro Hemphill Erythrocyte distribution width (RBC) [Ratio] 19.1 % Critically high 11.0-15.0 [facility] Comment on above: Performed By: #### C BC ####[facility] Qtyyapmxnl[address] [place], [place] [address]Dr. Lizandro Hemphill Hematocrit (Bld) [Volume fraction] 29.6 % Critically low 36.0-48.0 [facility] Comment on above: Performed By: #### C BC ####[facility] Njmqtbdzkj[address] [place], [place] [address]Dr. Lizandro Hemphill Hemoglobin (Bld) [Mass/Vol] 9.1 g/dL Critically low 12.0-16.0 [facility] Comment on above: Performed By: #### C BC ####[facility] M[address]zmw[address] [place], [place] [address]Dr. Lizandro Hemphill IG # 0.04 10e3/ul Critically high 0.00-0.03 [facility] Comment on above: Performed By: #### C BC ####[facility] Cffjnvsnxz1736 [place] [id number] Hemphill IG % 0.6 % Critically high 0.0-0.5 [facility] Comment on above: Performed By: #### C BC ####[facility] Vuebbbrxsp50[address] [place] [address]DrCiro Hemphill LYMPH # 1.1 103/ul Critically low 1.2-3.8 [facility] Comment on above: Performed By: #### C BC ####[facility] Nisqlfuedz[address] [place], [place] [address]DrCiro Hemphill Lymphocytes/100 WBC (Bld) 17.8 % Critically low 20.5-60.0 [facility] Comment on above: Performed By: #### C BC ####[facility] Bgbqzxkhql[address] [place], [place] [address]DrCiro Hemphill MANUAL DIFF REQ NO Normal [facility] Comment on above: Performed By: #### C BC ####[facility] Gozspbhwvl4[address] [place], [place] [address]DrCiro Hemphill MCH (RBC) [Entitic mass] 26.7 pg Normal 26.7-34.0 [facility] Comment on above: Performed By: #### C BC ####[facility] Abvyqpakcw00[address] [place], [place] [address]DrCiro Hemphill MCHC (RBC) [Mass/Vol] 30.7 g/dL Normal 29.9-35.2 [facility] Comment on above: Performed By: #### C BC ####[facility] Jzimihgomk[address] [place], [place] [address]DrCiro Hemphill MCV (RBC) [Entitic vol] 86.8 fL Normal 81.0-99.0 [facility] Comment on above: Performed By: #### C BC ####[facility] Qijfwzuapd88[address] [place], [place] [address]DrCiro Hemphill MONO # 0.8 103/ul Normal 0.3-0.8 [facility] Comment on above: Performed By: #### C BC ####[facility] Paqbgqziyz3421 [place] [address]Dr. Lizandro Hemphill Monocytes/100 WBC (Bld) 12.2 % Critically high 1.7-12.0 [facility] Comment on above: Performed By: #### C BC ####[facility] Bhpoikzkgl[address] [place] [address]Dr. Lizandro Hemphill NEUT # 4.3 103/ul Normal 1.4-6.5 [facility] Comment on above: Performed By: #### C BC ####[facility] Pepgjbmkwv0067 [place] [address]Dr. Lizandro Hemphill Neutrophils/100 WBC (Bld) 68.2 % Normal 43.0-75.0 [facility] Comment on above: Performed By: #### C BC ####[facility] Dottgcnzgz6725[address] [place], [place] [address]Dr. Lizandro Hemphill Platelet mean volume (Bld) [Entitic vol] 10.2 fL Normal 9.5-13.5 [facility] Comment on above: Performed By: #### C BC ####[facility] Ekdkhehkzy9449[address] [place], [place] [address]Dr. Lizandro Hemphill PLT 305 103/ul Normal 150-450 [facility] Comment on above: Performed By: #### C BC ####[facility] Yhovcrzxak0119 [place] [address]Dr. Lizandro Hemphill RBC 3.41 106/ul Critically low 4.20-5.40 [facility] Comment on above: Performed By: #### C BC ####[facility] Reyhbegplk1688 [place] [address]Dr. Lizandro Hemphill WBC 6.3 103/ul Normal 4.0-11.0 [facility] Comment on above: Performed By: #### C BC ####[facility] Docmfflimq6711 [place] [address]DrCiro Hemphill PROF 14(COMP METB)on 023 Albumin [Mass/Vol] 2.3 g/dL Critically low 3.4-5.0 [facility] Comment on above: Performed By: #### C MP ####[facility] Vwtbmqwumz7302 [place] [address]Dr. Lizandro Hemphill Albumin/Globulin [Mass ratio] 0.8 {ratio} Normal [facility] Comment on above: Performed By: #### C MP ####[facility] Bxcwamainv9796 [place] [address]Dr. Lizandro Hemphill ALP [Catalytic activity/Vol] 121 U/L Critically high 46-116 [facility] Comment on above: Performed By: #### C MP ####[facility] Iwmkvdions7[address] [place], [place] [address]Dr. Lizandro Hemphill ALT [Catalytic activity/Vol] 19 U/L Normal 14-59 [facility] Comment on above: Performed By: #### C MP ####[facility] Hxxlkqheps3043[address] [place], [place] [address]Dr. Lizandro Hemphill Anion gap [Moles/Vol] 13.4 mmol/L Normal [facility] Comment on above: Performed By: #### C MP ####[facility] Fodwgabbos1282[address] [place], [place] [address]Dr. Lizandro Hemphill AST [Catalytic activity/Vol] 30 U/L Normal 15-37 [facility] Comment on above: Performed By: #### C MP ####[facility] Rcnufxtfsa6487[address] [place], [place] [address]Dr. Lizandro Hemphill Bilirubin [Mass/Vol] 0.1 mg/dL Critically low 0.2-1.0 [facility] Comment on above: Performed By: #### C MP ####[facility] Fqvlvrizer8092[address] [place], [place] [address]Dr. Lizandro Hemphill Calcium [Mass/Vol] 7.9 mg/dL Critically low 8.5-10.1 [facility] Comment on above: Performed By: #### C MP ####[facility] Khkeftqcwc1776[address] [place], [place] [address]Dr. Lizandro Hemphill Chloride [Moles/Vol] 107 mmol/L Normal 98-107 [facility] Comment on above: Performed By: #### C MP ####[facility] Mdwpmvbzqn2432 [place] [address]Dr. Lizandro Hemphill CO2 [Moles/Vol] 22.7 mmol/L Normal 21.0-32.0 [facility] Comment on above: Performed By: #### C MP ####[facility] Usqplgyedj6406 [place] [address]Dr. Lizandro Hemphill Creatinine [Mass/Vol] 1.37 mg/dL Critically high 0.55-1.02 [facility] Comment on above: Performed By: #### C MP ####[facility] Tnzlnrkqge6146[address] [place], [place] [address]Dr. Lizandro Hemphill EGFR-AF ARMENIAN 48 mL/min/1.73m2 Critically low >=60 [facility] Comment on above: Performed By: #### C MP ####[facility] Ddlxtjbjpi280[address] [place], [place] [address]Dr. Lizandro Hemphill EGFR-NON AF ARMENIAN 39 mL/min/1.73m2 Critically low >=60 [facility] Comment on above: Performed By: #### C MP ####[facility] Tiubigptyv9[address] [place], [place] [address]Dr. Lizandro Hemphill Globulin (S) [Mass/Vol] 2.9 g/dL Normal [facility] Comment on above: Performed By: #### C MP ####[facility] Mewjfcwzup7719 [place] [address]Dr. Lizandro Hemphill Glucose [Mass/Vol] 120 mg/dL Critically high 74-106 [facility] Comment on above: Performed By: #### C MP ####[facility] Ambuxacldr1275[address] [place], [place] [address]Dr. Lizandro Hemphill Potassium [Moles/Vol] 4.1 mmol/L Normal 3.5-5.1 [facility] Comment on above: Performed By: #### C MP ####[facility] Klhthwdtrl201[address] [place], [place] [address]Dr. Lizandro Hemphill Protein [Mass/Vol] 5.2 g/dL Critically low 6.4-8.2 Th e [facility] Comment on above: Performed By: #### C MP ####[facility] Sfzxdcrtys9360 [place] [address]Dr. Lizandro Hemphill Sodium [Moles/Vol] 139 mmol/L Normal 136-145 [facility] Comment on above: Performed By: #### C MP ####[facility] Xyjffeymjz2160 [place] [address]Dr. Lizandro Hemphill Urea nitrogen [Mass/Vol] 19.0 mg/dL Critically high 7.0-18.0 [facility] Comment on above: Performed By: #### C MP ####[facility] Dumoixjfxo1517[address] [place], [place] [address]Dr. Lizandro Hemphill Urea nitrogen/Creatinin e [Mass ratio] 13.9 mg/mg Normal [facility] Comment on above: Performed By: #### C MP ####[facility] Brmuapdyis6763[address] [place], [place] [address]Dr. Lizandro Hemphill PROTIMEon 05-05-2022 INR Coag (PPP) [Relative time] 1.07 {INR} Normal [facility] Comment on above: Performed By: #### P T ####[facility] Hbdnfkbuku1174[address] [place], [place] [address]Dr. Lizandro Hemphill INR GUIDELINES SEE BELOW Normal [facility] Comment on above: Result Comment: GUEVARA RED INR: 2.0 - 3.0 CONDITIONS NOT LISTED BELOW 2.5 - 3.5 FOR PROSTHETIC HEART VALVE REPLACEMENT 2.5 - 3.5 RECURRENT THROMBOSIS Performed By: #### P T ####[facility] Duinlqkncy280[address] [place], [place] [address]Dr. Lizandro Hemphill PT Coag (PPP) [Time] 11.3 s Normal 9.0-11.6 [facility] Comment on above: Performed By: #### P T ####[facility] Eqlltibbyc8339[address] [place], [place] [address]Dr. Lizandro Hemphill CBC AUTO DIFFon 05-04-2022 BASO # 0.1 103/ul Normal 0.0-0.1 [facility] Comment on above: Performed By: #### C BC ####[facility] Pykbbfrmht7038 [place] [address]Dr. Lizandro Hemphill Basophils/100 WBC (Bld) 1.2 % Normal 0.2-2.0 [facility] Comment on above: Performed By: #### C BC ####[facility] Tclvczkmwa2318[address] [place], [place] [address]Dr. Lizandro Hemphill EO # 0.0 103/ul Normal 0.0-0.7 [facility] Comment on above: Performed By: #### C BC ####[facility] Yywwfjqmei36[address] [place], [place] [address]Dr. Lizandro Hemphill Eosinophils/100 WBC (Bld) 0.5 % Critically low 0.9-7.0 [facility] Comment on above: Performed By: #### C BC ####[facility] Smqloplyfe8404[address] [place], [place] [address]Dr. Lizandro Hemphill Erythrocyte distribution width (RBC) [Ratio] 18.8 % Critically high 11.0-15.0 [facility] Comment on above: Performed By: #### C BC ####[facility] Pyvxdybzdo0786[address] [place], [place] [address]Dr. Lizandro Hemphill Hematocrit (Bld) [Volume fraction] 26.6 % Critically low 36.0-48.0 [facility] Comment on above: Performed By: #### C BC ####[facility] Grytuycgms06[address] [place], [place] [address]Dr. Lizandro Hemphill Hemoglobin (Bld) [Mass/Vol] 8.2 g/dL Critically low 12.0-16.0 [facility] Comment on above: Performed By: #### C BC ####[facility] Zbpyvqxoxl13[address] [place], [place] [address]Dr. Lizandro Hemphill IG # 0.02 10e3/ul Normal 0.00-0.03 [facility] Comment on above: Performed By: #### C BC ####[facility] Xsscedwovv6739[address] [place], [place] [address]Dr. Lizandro Hemphill IG % 0.4 % Normal 0.0-0.5 [facility] Comment on above: Performed By: #### C BC ####[facility] Abbvrzgcot7358 [place] [address]Dr. Lizandro Joby LYMPH # 1.4 103/ul Normal 1.2-3.8 [facility] Comment on above: Performed By: #### C BC ####[facility] Qwiwjbgssh5239 [place] [id number]. Lizandro Hemphill Lymphocytes/100 WBC (Bld) 24.5 % Normal 20.5-60.0 [facility] Comment on above: Performed By: #### C BC ####[facility] Nmkoiytvij4120 [place] [address]DrCiro Hemphill MANUAL DIFF REQ NO Normal [facility] Comment on above: Performed By: #### C BC ####[facility] Lrwjomjrzg0542 [place] [address]Dr. Lizandro Hemphill MCH (RBC) [Entitic mass] 26.4 pg Critically low 26.7-34.0 [facility] Comment on above: Performed By: #### C BC ####[facility] Hkxvvykpgm3037 [place] [address]Dr. Shanikaannie Hemphill MCHC (RBC) [Mass/Vol] 30.8 g/dL Normal 29.9-35.2 [facility] Comment on above: Performed By: #### C BC ####[facility] Rcqffhbufj8371 [place] [id number] Hemphill MCV (RBC) [Entitic vol] 85.5 fL Normal 81.0-99.0 [facility] Comment on above: Performed By: #### C BC ####[facility] Hukafpngwj8468 [place] [id number] Hemphill MONO # 0.7 103/ul Normal 0.3-0.8 [facility] Comment on above: Performed By: #### C BC ####[facility] Uoxqyykotw6389 [place] [id number] Hemphill Monocytes/100 WBC (Bld) 12.1 % Critically high 1.7-12.0 [facility] Comment on above: Performed By: #### C BC ####[facility] Oplxyjnfqi4135 [place] [id number]. Lizandro Hemphill NEUT # 3.5 103/ul Normal 1.4-6.5 [facility] Comment on above: Performed By: #### C BC ####[facility] Irmhlkwhul2836 [place] [id number]. Lizandro Hemphill Neutrophils/100 WBC (Bld) 61.3 % Normal 43.0-75.0 [facility] Comment on above: Performed By: #### C BC ####[facility] Wmglglawfe3667 [place] [address]Dr. Lizandro Hemphill Platelet mean volume (Bld) [Entitic vol] 10.8 fL Normal 9.5-13.5 [facility] Comment on above: Performed By: #### C BC ####[facility] Yrmdzpfsut2201 [place] [address]Dr. Lizandro Hemphill PLT 309 103/ul Normal 150-450 [facility] Comment on above: Performed By: #### C BC ####[facility] Ixqaeazelu6110 [place] [id number]. Lizandro Hemphill RBC 3.11 106/ul Critically low 4.20-5.40 [facility] Comment on above: Performed By: #### C BC ####[facility] Fjvhvfoinv9666 [place] [id number]. Lizandro Hemphill WBC 5.6 103/ul Normal 4.0-11.0 [facility] Comment on above: Performed By: #### C BC ####[facility] Yzeibhsxor2564 [place] [id number]. Lizandro Hemphill CT ABD/PELVIS WO CONon 05-04 CT ABD/PELVIS WO CON Normal [facility] PROF 14(COMP METB)on 023 Albumin [Mass/Vol] 2.7 g/dL Critically low 3.4-5.0 [facility] Comment on above: Performed By: #### C MP ####[facility] Qzynautgic64[address] [place] [address]Dr. Shanikaannie Hemphill Albumin/Globulin [Mass ratio] 0.9 {ratio} Normal [facility] Comment on above: Performed By: #### C MP ####[facility] Tkvlpacbzo2763 [place] [address]Dr. Lizandro Hemphill ALP [Catalytic activity/Vol] 122 U/L Critically high 46-116 [facility] Comment on above: Performed By: #### C MP ####[facility] Eqptbxnpew1915[address] [place], [place] [address]Dr. Lizandro Hemphill ALT [Catalytic activity/Vol] 23 U/L Normal 14-59 [facility] Comment on above: Performed By: #### C MP ####[facility] Qptvdwqini5777[address] [place], [place] [address]Dr. Lizandro Hemphill Anion gap [Moles/Vol] 11.9 mmol/L Normal [facility] Comment on above: Performed By: #### C MP ####[facility] Sjnqvxczjc7509[address] [place], [place] [address]Dr. Lizandro Hemphill AST [Catalytic activity/Vol] 26 U/L Normal 15-37 [facility] Comment on above: Performed By: #### C MP ####[facility] Orvsadczoo336[address] [place], [place] [address]Dr. Lizandro Hemphill Bilirubin [Mass/Vol] 0.3 mg/dL Normal 0.2-1.0 [facility] Comment on above: Performed By: #### C MP ####[facility] Krsrdtzbrt2265[address] [place], [place] [address]Dr. Lizandro Hemphill Calcium [Mass/Vol] 8.4 mg/dL Critically low 8.5-10.1 Th e [facility] Comment on above: Performed By: #### C MP ####[facility] Pesbpoldbc466[address] [place], [place] [address]Dr. Lizandro Hemphill Chloride [Moles/Vol] 106 mmol/L Normal 98-107 [facility] Comment on above: Performed By: #### C MP ####[facility] Yenbuteumm847[address] [place], [place] [address]Dr. Lizandro Hemphill CO2 [Moles/Vol] 26.2 mmol/L Normal 21.0-32.0 [facility] Comment on above: Performed By: #### C MP ####[facility] Xilnomcfjx6051 [place] [address]Dr. Lizandro Hemphill Creatinine [Mass/Vol] 1.43 mg/dL Critically high 0.55-1.02 [facility] Comment on above: Performed By: #### C MP ####[facility] Ewerhomzwm4734[address] [place], [place] [address]Dr. Lizandro Hemphill EGFR-AF ARMENIAN 45 mL/min/1.73m2 Critically low >=60 [facility] Comment on above: Performed By: #### C MP ####[facility] Mbpsxdzfcw3288[address] [place], [place] [address]Dr. Lizandro Hemphill EGFR-NON AF ARMENIAN 37 mL/min/1.73m2 Critically low >=60 [facility] Comment on above: Performed By: #### C MP ####[facility] Gauwcyieka9547[address] [place], [place] [address]Dr. Lizandro Hemphill Globulin (S) [Mass/Vol] 2.9 g/dL Normal [facility] Comment on above: Performed By: #### C MP ####[facility] Mlqrnkwsjh7944[address] [place], [place] [address]Dr. Lizandro Hemphill Glucose [Mass/Vol] 101 mg/dL Normal 74-106 [facility] Comment on above: Performed By: #### C MP ####[facility] Wxekwbaayb0526[address] [place], [place] [address]Dr. Lizandro Hemphill Protein [Mass/Vol] 5.6 g/dL Critically low 6.4-8.2 [facility] Comment on above: Performed By: #### C MP ####[facility] Drgrdiqkzf2397[address] [place], [place] [address]Dr. Lizandro Hemphill Sodium [Moles/Vol] 140 mmol/L Normal 136-145 [facility] Comment on above: Performed By: #### C MP ####[facility] Xavigskjci3969[address] [place], [place] [address]Dr. Lizandro Hemphill Urea nitrogen [Mass/Vol] 14.0 mg/dL Normal 7.0-18.0 [facility] Comment on above: Performed By: #### C MP ####[facility] Fnlpmnnepp215[address] [place], [place] [address]Dr. Lizandro Hemphill Urea nitrogen/Creatinin e [Mass ratio] 9.8 mg/mg Normal [facility] Comment on above: Performed By: #### C MP ####[facility] Efakllyymi[address] [place], [place] [address]Dr. Lizandro Hemphill PROTIMEon 05-04-2022 INR Coag (PPP) [Relative time] 1.01 {INR} Normal [facility] Comment on above: Performed By: #### P T ####[facility] Dwxbkzzyqk2125[address] [place], [place] [address]Dr. Lizandro Hemphill INR GUIDELINES SEE BELOW Normal [facility] Comment on above: Result Comment: GUEVARA RED INR: 2.0 - 3.0 CONDITIONS NOT LISTED BELOW 2.5 - 3.5 FOR PROSTHETIC HEART VALVE REPLACEMENT 2.5 - 3.5 RECURRENT THROMBOSIS Performed By: #### P T ####[facility] Dabgdzuhsg1303[address] [place], [place] [address]Dr. Lizandro Hemphill PT Coag (PPP) [Time] 10.7 s Normal 9.0-11.6 [facility] Comment on above: Performed By: #### P T ####[facility] Youugphwqd4633[address] [place], [place] [address]Dr. Lizandro Hemphill AMMONIAon 05-03-2022 Ammonia (P) [Moles/Vol] 27 umol/L Normal 11-32 [facility] Comment on above: Performed By: #### A MM ####[facility] Lnympybayk6224[address] [place], [place] [address]Dr. Lizandro Hemphill AMYLASEon 05-03-2022 Amylase [Catalytic activity/Vol] 68 U/L Normal 25-115 [facility] Comment on above: Performed By: #### M G, CMP, ALICIA, LIPA ####[facility] Gbmghsamkn740[address] [place], [place] [address]Dr. Lizandro Hemphill CBC AUTO DIFFon 05-03-2022 BASO # 0.1 103/ul Normal 0.0-0.1 [facility] Comment on above: Performed By: #### C BC ####[facility] Yekkuqnwif8964 [place] [address]Dr. Lizandro Hemphill Basophils/100 WBC (Bld) 1.1 % Normal 0.2-2.0 [facility] Comment on above: Performed By: #### C BC ####[facility] Itnpqwkzcn8959[address] [place], [place] [address]Dr. Shanikaannie Hemphill EO # 0.0 103/ul Normal 0.0-0.7 [facility] Comment on above: Performed By: #### C BC ####[facility] Vigynshwfr[address] [place], [place] [address]Dr. Shanikaannie Joby Eosinophils/100 WBC (Bld) 0.4 % Critically low 0.9-7.0 [facility] Comment on above: Performed By: #### C BC ####[facility] Zxjyfypzdv45[address] [place], [place] [address]Dr. Lizandro Hemphill Erythrocyte distribution width (RBC) [Ratio] 18.7 % Critically high 11.0-15.0 [facility] Comment on above: Performed By: #### C BC ####[facility] Orxzwivmgx56[address] [place], [place] [address]Dr. Lizandro Hemphill Hematocrit (Bld) [Volume fraction] 31.0 % Critically low 36.0-48.0 [facility] Comment on above: Performed By: #### C BC ####[facility] Yhrzseqwjr14[address] [place], [place] [address]Dr. Shanikaannie Hemphill Hemoglobin (Bld) [Mass/Vol] 9.4 g/dL Critically low 12.0-16.0 [facility] Comment on above: Performed By: #### C BC ####[facility] Iytctwlzmv6[address] [place] [address]Dr. Shanikaannie Joby IG # 0.02 10e3/ul Normal 0.00-0.03 [facility] Comment on above: Performed By: #### C BC ####[facility] Aqnsjtvjew6888 [place] [id number]. Lizandro Hemphill IG % 0.3 % Normal 0.0-0.5 [facility] Comment on above: Performed By: #### C BC ####[facility] Btjhkhipvg1482 [place] [id number]. Lizandro Joby LYMPH # 1.6 103/ul Normal 1.2-3.8 [facility] Comment on above: Performed By: #### C BC ####[facility] Luhsucyjbx0332 [place] [id number]. Lizandro Joby Lymphocytes/100 WBC (Bld) 21.2 % Normal 20.5-60.0 [facility] Comment on above: Performed By: #### C BC ####[facility] Ueiyeijwgu9[address] [place] [address]Dr. Lizandro Joby MANUAL DIFF REQ NO Normal [facility] Comment on above: Performed By: #### C BC ####[facility] Fvorfqwknc9261 [place] [id number]. Lizandro Hemphill MCH (RBC) [Entitic mass] 26.0 pg Critically low 26.7-34.0 [facility] Comment on above: Performed By: #### C BC ####[facility] Shytovcdxt8229 [place] [address]Dr. Lizandro Hemphill MCHC (RBC) [Mass/Vol] 30.3 g/dL Normal 29.9-35.2 [facility] Comment on above: Performed By: #### C BC ####[facility] Vvhaquozli3785 [place] [address]Dr. Lizandro Hemphill MCV (RBC) [Entitic vol] 85.9 fL Normal 81.0-99.0 [facility] Comment on above: Performed By: #### C BC ####[facility] Wbilndafap8[address] [place], [place] [address]Dr. Shanikaannie Hemphill MONO # 0.7 103/ul Normal 0.3-0.8 [facility] Comment on above: Performed By: #### C BC ####[facility] Fnusnwfqly3459 [place] [id number]. Lizandro Hemphill Monocytes/100 WBC (Bld) 9.5 % Normal 1.7-12.0 [facility] Comment on above: Performed By: #### C BC ####[facility] Vmnqbjsvjd7370 [place] [id number]. Lizandro Hemphill NEUT # 5.1 103/ul Normal 1.4-6.5 [facility] Comment on above: Performed By: #### C BC ####[facility] Cajwjnfrjt0337 [place] [id number]. Lizandro Hemphill Neutrophils/100 WBC (Bld) 67.5 % Normal 43.0-75.0 [facility] Comment on above: Performed By: #### C BC ####[facility] Zijjglbygd1131 [place] [address]Dr. Lizandro Hemphill Platelet mean volume (Bld) [Entitic vol] 10.1 fL Normal 9.5-13.5 [facility] Comment on above: Performed By: #### C BC ####[facility] Cimparkadv7453 [place] [id number]. Lizandro Hemphill PLT 404 103/ul Normal 150-450 [facility] Comment on above: Performed By: #### C BC ####[facility] Jzssdwcwed7303 [place] [id number]. Lizandro Hemphill RBC 3.61 106/ul Critically low 4.20-5.40 [facility] Comment on above: Performed By: #### C BC ####[facility] Dcvrjrmzai6443 [place] [id number]. Lizandro Hemphill WBC 7.6 103/ul Normal 4.0-11.0 [facility] Comment on above: Performed By: #### C BC ####[facility] Qffobeakog9776 [place] [id number]. Lizandro Hemphill CULTURE BLOODon 05-03-2022 Microscopic examination of blood, culture Culture Observations: NO GROWTH AT 5 DAYS. Normal [facility] Comment on above: Performed By: #### B LDCX2 ####[facility] Fbrnfokqmo5[address] [place], [place] [address]Dr. Lizandro Hemphill Microscopic examination of blood, culture Culture Observations: NO GROWTH AT 5 DAYS. Normal [facility] Comment on above: Performed By: #### B LDCX1 ####[facility] Mtoxoopptr[address] [place], [place] [address]Dr. Lizandro Hemphill CULTURE URINEon 05-03-2022 CULTURE URINE Culture Observations : NO GROWTH. Normal [facility] Comment on above: Performed By: #### U RCX ####[facility] K[address] [place], [place] [address]Dr. Lizandro Hemphill Covid-19 PCR (CVDTBH)on SARS-CoV-2 (COVID-19) RNA VERITO+probe Ql (Unsp spec) Not detected Normal NOT DETECTED [facility] Comment on above: Result Comment: When [...] for this test is supported by the [place] of Health and Human Service's declaration that [...] be used). Performed By: #### C VDTBH ####[facility] L[address] [place], [place] [address]Dr. Lizandro Hemphill LACTATE/LACTIC ACIDon 2022 Lactate [Moles/Vol] 0.9 mmol/L Normal 0.4-1.9 [facility] Comment on above: Performed By: #### L ACT ####[facility] Tyqikdiuk[address] [place], [place] [address]Dr. Lizandro Hemphill LIPASEon 05-03-2022 Lipase [Catalytic activity/Vol] 105.0 U/L Normal 73.0-393.0 [facility] Comment on above: Performed By: #### M G, CMP, ALICIA, LIPA ####[facility] [address]ufhpqrc[address] [place] [address]Dr. Lizandro Hemphill MAGNESIUMon 05-03-2022 Magnesium [Mass/Vol] 1.8 mg/dL Normal 1.8-2.4 [facility] Comment on above: Performed By: #### M G, CMP, ALICIA, LIPA ####[facility] Cbxyokxixg[address] [place] [address]Dr. Lizandro Hemphill PROF 14(COMP METB)on 023 Albumin [Mass/Vol] 3.4 g/dL Normal 3.4-5.0 [facility] Comment on above: Performed By: #### M G, CMP, ALICIA, LIPA ####[facility] Ukhrapdzib[address] [place] [address]Dr. Lizandro Hemphill Albumin/Globulin [Mass ratio] 1.0 {ratio} Normal [facility] Comment on above: Performed By: #### M G, CMP, ALICIA, LIPA ####[facility] Rwbcpzhmxj8136 [place] [address]Dr. Lizandro Hemphill ALP [Catalytic activity/Vol] 154 U/L Critically high 46-116 [facility] Comment on above: Performed By: #### M G, CMP, ALICIA, LIPA ####[facility] Drdklubsbc6174 [place] [address]Dr. Lizandro Hemphill ALT [Catalytic activity/Vol] 25 U/L Normal 14-59 [facility] Comment on above: Performed By: #### M G, CMP, ALICIA, LIPA ####[facility] Jynvpafsjh[address] [place] [address]Dr. Lizandro Hemphill Anion gap [Moles/Vol] 13.2 mmol/L Normal [facility] Comment on above: Performed By: #### M G, CMP, ALICIA, LIPA ####[facility] Ykcxfgxgtd20[address] [place] [address]Dr. Lizandro Hemphill AST [Catalytic activity/Vol] 28 U/L Normal 15-37 [facility] Comment on above: Performed By: #### M G, CMP, ALICIA, LIPA ####[facility] Kaebrwucji[address] [place] [address]Dr. Lizandro Hemphill Bilirubin [Mass/Vol] 0.4 mg/dL Normal 0.2-1.0 [facility] Comment on above: Performed By: #### M G, CMP, ALICIA, LIPA ####[facility] Gkqwbevehm70[address] [place] [address]Dr. Lizandro Hemphill Calcium [Mass/Vol] 9.0 mg/dL Normal 8.5-10.1 [facility] Comment on above: Performed By: #### M G, CMP, ALICIA, LIPA ####[facility] Zergckgytu[address] [place] [address]Dr. Lizandro Hemphill Chloride [Moles/Vol] 104 mmol/L Normal 98-107 [facility] Comment on above: Performed By: #### M G, CMP, ALICIA, LIPA ####[facility] Fgomoxmwiq19[address] [place] [address]Dr. Lizandro Hemphill CO2 [Moles/Vol] 26.3 mmol/L Normal 21.0-32.0 [facility] Comment on above: Performed By: #### M G, CMP, ALICIA, LIPA ####[facility] Ekzrwpqilz[address] [place] [address]Dr. Lizandro Hemphill Creatinine [Mass/Vol] 0.73 mg/dL Normal 0.55-1.02 [facility] Comment on above: Performed By: #### M G, CMP, ALICIA, LIPA ####[facility] Wxfpvykuqb78[address] [place] [address]Dr. Lizandro Hemphill EGFR-AF ARMENIAN >60 Normal >=60 [facility] Comment on above: Performed By: #### M G, CMP, ALICIA, LIPA ####[facility] Wzvjmlidtq7447 [place] [address]Dr. Lizandro Hemphill EGFR-NON AF ARMENIAN >60 Normal >=60 [facility] Comment on above: Performed By: #### M G, CMP, ALICIA, LIPA ####[facility] Ytlhjazrzb6164 [place] [address]Dr. Lizandro Hemphill Globulin (S) [Mass/Vol] 3.5 g/dL Normal [facility] Comment on above: Performed By: #### M G, CMP, ALICIA, LIPA ####[facility] Rauswohhri39[address] [place] [address]Dr. Lizandro Hemphill Glucose [Mass/Vol] 87 mg/dL Normal 74-106 [facility] Comment on above: Performed By: #### M G, CMP, ALICIA, LIPA ####[facility] Rvwedeztzl2327 [place] [address]Dr. Lizandro Hemphill Potassium [Moles/Vol] 3.5 mmol/L Normal 3.5-5.1 [facility] Comment on above: Performed By: #### M G, CMP, ALICIA, LIPA ####[facility] Nxppmhirco8424 [place] [address]Dr. Lizandro Hemphill Protein [Mass/Vol] 6.9 g/dL Normal 6.4-8.2 [facility] Comment on above: Performed By: #### M G, CMP, ALICIA, LIPA ####[facility] Rvpsvkfexr9673 [place] [address]Dr. Shanikalan Hemphill Sodium [Moles/Vol] 140 mmol/L Normal 136-145 [facility] Comment on above: Performed By: #### M G, CMP, ALICIA, LIPA ####[facility] Cpgdblvizk6483 [place] [address]Dr. Shanikalan Hemphill Urea nitrogen [Mass/Vol] 12.0 mg/dL Normal 7.0-18.0 [facility] Comment on above: Performed By: #### M G, CMP, ALICIA, LIPA ####[facility] Hhbshekxyc0736 [place] [address]Dr. Lizandro Hemphill Urea nitrogen/Creatinin e [Mass ratio] 16.4 mg/mg Normal [facility] Comment on above: Performed By: #### M G, CMP, ALICIA, LIPA ####[facility] Glwwtukmsh87[address] [place] [address]Dr. Lizandro Hemphill PROTIMEon 05-03-2022 INR Coag (PPP) [Relative time] 0.97 {INR} Normal [facility] Comment on above: Performed By: #### P TT, PT ####[facility] Gmfkzzkfdv26[address] [place] [address]Dr. Lizandro Hemphill INR GUIDELINES SEE BELOW Normal [facility] Comment on above: Result Comment: GUEVARA RED INR: 2.0 - 3.0 CONDITIONS NOT LISTED BELOW 2.5 - 3.5 FOR PROSTHETIC HEART VALVE REPLACEMENT 2.5 - 3.5 RECURRENT THROMBOSIS Performed By: #### P TT, PT ####[facility] Hfiuqcy[address] [place], [place] [address]Dr. Lizandro Hemphill PT Coag (PPP) [Time] 10.3 s Normal 9.0-11.6 [facility] Comment on above: Performed By: #### P TT, PT ####[facility] Flvxaluqit[address] [place], [place] [address]Dr. Lizandro Hemphill PTTon 05-03-2022 aPTT Coag (Bld) [Time] 27.1 s Normal 22.3-36.2 [facility] Comment on above: Performed By: #### P TT, PT ####[facility] Whxfwbjrkk[address] [place], [place] [address]Dr. Lizandro Hemphill UA RANDOM W/MICROSCOPICon BACTERIA NONE SEEN Normal NONE SEEN [facility] Comment on above: Performed By: #### U AMIC ####[facility] Veuysgulbh[address] [place], [place] [address]Dr. Lizandro Hemphill Bilirubin Ql (U) Negative Normal NEGATIVE [facility] Comment on above: Performed By: #### U AMIC ####[facility] Paygvakuhq[address] [place], [place] [address]Dr. Lizandro Hemphill CAST NONE SEEN Normal NONE SEEN [facility] Comment on above: Performed By: #### U AMIC ####[facility] P[address]hejukyfk[address] [place], [place] [address]Dr. Lizandro Hemphill Clarity (U) CLEAR Normal CLEAR [facility] Comment on above: Performed By: #### U AMIC ####[facility] Zohozsvhaa[address] [place], [place] [address]Dr. Lizandro Hemphill Color (U) LT. YELLOW Normal YELLOW [facility] Comment on above: Performed By: #### U AMIC ####[facility] Vmjhafrthz7573 [place] [address]Dr. Lizandro Hemphill Crystals LM Nom (Urine sed) NONE SEEN Normal NONE SEEN [facility] Comment on above: Performed By: #### U AMIC ####[facility] Wbozltnpqf[address] [place], [place] [address]Dr. Lizandro Hemphill Epithelial cells LM Ql (Urine sed) NONE SEEN Normal NONE SEEN /RARE [facility] Comment on above: Performed By: #### U AMIC ####[facility] Nsqviefmre[address] [place], [place] [address]Dr. Lizandro Hemphill Glucose Ql (U) Negative Normal NEGATIVE [facility] Comment on above: Performed By: #### U AMIC ####[facility] Mowmystmxq97[address] [place], [place] [address]Dr. Lizandro Hemphill Hemoglobin Ql (U) Negative Normal NEGATIVE [facility] Comment on above: Performed By: #### U AMIC ####[facility] Rekdosnnzc[address] [place], [place] [address]Dr. Lizandro Hemphill Ketones Ql (U) 15 mg/dl Abnormal NEGATIVE [facility] Comment on above: Performed By: #### U AMIC ####[facility] Ltbtbijkcc[address] [place], [place] [address]Dr. Lizandro Hemphill LEUKOCYTES Negative Normal NEGATIVE [facility] Comment on above: Performed By: #### U AMIC ####[facility] Bfzssjzjij[address] [place], [place] [address]Dr. Lizandro Hemphill MUCOUS NONE SEEN Normal NONE SEEN [facility] Comment on above: Performed By: #### U AMIC ####[facility] Zxzhxadrzw11[address] [place], [place] [address]Dr. Lizandro Hemphill Nitrite Ql (U) Negative Normal NEGATIVE [facility] Comment on above: Performed By: #### U AMIC ####[facility] Hhbzdoqgtj4416 [place] [address]Dr. Lizandro Hemphill pH (U) 7.0 [pH] Normal 5-9 [facility] Comment on above: Performed By: #### U AMIC ####[facility] Bhnjfyswfz3849 [place] [address]Dr. Lizandro Hemphill RBC 0-2 Normal 0-2 [facility] Comment on above: Performed By: #### U AMIC ####[facility] Axsxuwsfwa4517 [place] [address]Dr. Lizandro Hemphill SPEC GRAVITY 1.010 Normal 1.005-<=1.025 [facility] Comment on above: Performed By: #### U AMIC ####[facility] Zdckjpievy[address] [place], [place] [address]Dr. Lizandro Hemphill UA PROTEIN Negative Normal NEGATIVE/ TRACE [facility] Comment on above: Performed By: #### U AMIC ####[facility] Gywrhvqyix[address] [place], [place] [address]Dr. Lizandro Hemphill Urobilinogen Qn (U) 0.2 {Cassy'U}/dL Normal 0.2 - 1.0 [facility] Comment on above: Performed By: #### U AMIC ####[facility] Fhcfmjxmre[address] [place], [place] [address]Dr. Lizandro Hemphill WBC NONE SEEN Normal NONE SEEN [facility] Comment on above: Performed By: #### U AMIC ####[facility] Uyaxzbfdtg1672 [place] [address]Dr. Lizandro Hemphill XR ABD FLAT UP_PA Allen 05-03 XR ABD FLAT UP_PA CH Normal [facility] CBC AUTO DIFFon 04-13-2022 BASO # 0.1 103/ul Normal 0.0-0.1 [facility] Comment on above: Performed By: #### C BC ####[facility] Dxrtstklzr[address] [place], [place] [address]Dr. Lizandro Hemphill Basophils/100 WBC (Bld) 0.7 % Normal 0.2-2.0 [facility] Comment on above: Performed By: #### C BC ####[facility] Cwaxrzcslq4[address] [place], [place] [address]Dr. Lizandro Hemphill EO # 0.0 103/ul Normal 0.0-0.7 [facility] Comment on above: Performed By: #### C BC ####[facility] Ruqfclorxw[address] [place], [place] [address]Dr. Lizandro Hemphill Eosinophils/100 WBC (Bld) 0.3 % Critically low 0.9-7.0 [facility] Comment on above: Performed By: #### C BC ####[facility] Qgvtfbeugw[address] [place], [place] [address]Dr. Lizandro Hemphill Erythrocyte distribution width (RBC) [Ratio] 18.2 % Critically high 11.0-15.0 [facility] Comment on above: Performed By: #### C BC ####[facility] Xrkmzzzddn[address] [place], [place] [address]Dr. Lizandro Hemphill Hematocrit (Bld) [Volume fraction] 32.1 % Critically low 36.0-48.0 [facility] Comment on above: Performed By: #### C BC ####[facility] Udmjktaauu[address] [place], [place] [address]Dr. Lizandro Hemphill Hemoglobin (Bld) [Mass/Vol] 10.2 g/dL Critically low 12.0-16.0 [facility] Comment on above: Performed By: #### C BC ####[facility] Mazazfajkz[address] [place], [place] [address]Dr. Shanikaannie Joby IG # 0.03 10e3/ul Normal 0.00-0.03 [facility] Comment on above: Performed By: #### C BC ####[facility] Fwhyjheqbp01[address] [place], [place] [address]Dr. Lizandro Joby IG % 0.3 % Normal 0.0-0.5 [facility] Comment on above: Performed By: #### C BC ####[facility] Skvthvrsow[address] [place], [place] [address]Dr. Lizandro Hemphill LYMPH # 1.2 103/ul Normal 1.2-3.8 [facility] Comment on above: Performed By: #### C BC ####[facility] Zfagvwcfib7480 [place] [address]Dr. Lizandro Hemphill Lymphocytes/100 WBC (Bld) 10.4 % Critically low 20.5-60.0 [facility] Comment on above: Performed By: #### C BC ####[facility] Ddpvlhxcsv9937 [place] [address]Dr. Lizandro Hemphill MANUAL DIFF REQ NO Normal [facility] Comment on above: Performed By: #### C BC ####[facility] Rzbgwtygor2393 [place] [address]Dr. Lizandro Hemphill MCH (RBC) [Entitic mass] 26.4 pg Critically low 26.7-34.0 [facility] Comment on above: Performed By: #### C BC ####[facility] Dyptfyjaio[address] [place], [place] [address]Dr. Lizandro Hemphill MCHC (RBC) [Mass/Vol] 31.8 g/dL Normal 29.9-35.2 [facility] Comment on above: Performed By: #### C BC ####[facility] Aljnwhopyo[address] [place], [place] [address]Dr. Lizandro Hemphill MCV (RBC) [Entitic vol] 83.2 fL Normal 81.0-99.0 [facility] Comment on above: Performed By: #### C BC ####[facility] Niwzgxcvfe4464 [place] [address]Dr. Lizandro Hemphill MONO # 1.0 103/ul Critically high 0.3-0.8 [facility] Comment on above: Performed By: #### C BC ####[facility] Einyjmvonf[address] [place], [place] [address]Dr. Lizandro Hemphill Monocytes/100 WBC (Bld) 9.0 % Normal 1.7-12.0 [facility] Comment on above: Performed By: #### C BC ####[facility] Ereegcuoij[address] [place], [place] [address]Dr. Lizandro Hemphill NEUT # 9.0 103/ul Critically high 1.4-6.5 [facility] Comment on above: Performed By: #### C BC ####[facility] Faodexqcii0706 [place] [address]Dr. Lizandro Hemphill Neutrophils/100 WBC (Bld) 79.3 % Critically high 43.0-75.0 [facility] Comment on above: Performed By: #### C BC ####[facility] Gqpsfhhtnm6605 [place] [address]Dr. Lizandro Hemphill Platelet mean volume (Bld) [Entitic vol] 10.8 fL Normal 9.5-13.5 [facility] Comment on above: Performed By: #### C BC ####[facility] Euhhwycvpg8405 [place] [address]Dr. Lizandro Hemphill PLT 364 103/ul Normal 150-450 [facility] Comment on above: Performed By: #### C BC ####[facility] Mfulkdyuew6865 [place] [address]Dr. Lizandro Hemphill RBC 3.86 106/ul Critically low 4.20-5.40 [facility] Comment on above: Performed By: #### C BC ####[facility] Xegagroajh89[address] [place] [address]Dr. Lizandro Hemphill WBC 11.4 103/ul Critically high 4.0-11.0 [facility] Comment on above: Performed By: #### C BC ####[facility] Anjlvfwdzf27[address] [place] [address]Dr. Lizandro Hemph[address] CT ABD/PELVIS WO CONon 04-13 CT ABD/PELVIS WO CON Normal [facility] PROF CHEM 8 (BAS METB)on Anion gap [Moles/Vol] 12.4 mmol/L Normal [facility] Comment on above: Performed By: #### B MP ####[facility] Zefbwqavco9[address] [place] [address]Dr. iLzandro Hemphill Calcium [Mass/Vol] 9.1 mg/dL Normal 8.5-10.1 [facility] Comment on above: Performed By: #### B MP ####[facility] Efvrbmyvwr8243 [place] [address]Dr. Lizandro Hemphill Chloride [Moles/Vol] 103 mmol/L Normal 98-107 [facility] Comment on above: Performed By: #### B MP ####[facility] Rphzoxoxnt8862 [place] [address]Dr. Lizandro Hemphill CO2 [Moles/Vol] 28.1 mmol/L Normal 21.0-32.0 [facility] Comment on above: Performed By: #### B MP ####[facility] Loczglwuvq7471 [place] [address]Dr. Lizandro Hemphill Creatinine [Mass/Vol] 1.08 mg/dL Critically high 0.55-1.02 [facility] Comment on above: Performed By: #### B MP ####[facility] Ivcxfrmtvt[address] [place], [place] [address]Dr. Lizandro Joby EGFR-AF ARMENIAN >60 Normal >=60 [facility] Comment on above: Performed By: #### B MP ####[facility] Sgedewwqkf[address] [place], [place] [address]Dr. Lizandro Joby EGFR-NON AF ARMENIAN 52 mL/min/1.73m2 Critically low >=60 [facility] Comment on above: Performed By: #### B MP ####[facility] Emspnuvopn8204 [place] [address]Dr. Lizandro Joby Glucose [Mass/Vol] 120 mg/dL Critically high 74-106 [facility] Comment on above: Performed By: #### B MP ####[facility] Zngrdnucxe9045 [place] [address]Dr. Shanikaannie Hemphill Potassium [Moles/Vol] 3.5 mmol/L Normal 3.5-5.1 [facility] Comment on above: Performed By: #### B MP ####[facility] Wgrqxsdxew4998 [place] [address]Dr. Lizandro Hemphill Sodium [Moles/Vol] 140 mmol/L Normal 136-145 [facility] Comment on above: Performed By: #### B MP ####[facility] Ydfyzpywpb[address] [place], [place] [address]Dr. Lizandro Joby Urea nitrogen [Mass/Vol] 24.0 mg/dL Critically high 7.0-18.0 [facility] Comment on above: Performed By: #### B MP ####[facility] Sncxmgdnat[address] [place], [place] [address]Dr. Lizandro Hemphill Urea nitrogen/Creatinin e [Mass ratio] 22.2 mg/mg Normal [facility] Comment on above: Performed By: #### B MP ####[facility] Uovpiblowe[address] [place], [place] [address]Dr. Lizandro Hemphill XR ANKLE RT MIN 3 VIEWSon XR ANKLE RT MIN 3 VIEWS Normal [facility] PRBC LEUKOREDUCEDon 03-23-20 PRBC LEUKOREDUCED Normal [facility] Comment on above: Performed By: #### P RBC ####[facility] Bkzfpweldn04[address] [place], [place] [address]Dr. Shanikaannie Joby CBC AUTO DIFFon 03-07-2022 BASO # 0.1 103/ul Normal 0.0-0.1 [facility] Comment on above: Performed By: #### C BC ####[facility] Xwfadmolsf[address] [place], [place] [address]Dr. Lizandro Hemphill Basophils/100 WBC (Bld) 1.1 % Normal 0.2-2.0 [facility] Comment on above: Performed By: #### C BC ####[facility] Trfyajgcxv3[address] [place], [place] [address]Dr. Lizandro Hemphill EO # 0.1 103/ul Normal 0.0-0.7 [facility] Comment on above: Performed By: #### C BC ####[facility] Akorosjzqq9[address] [place], [place] [address]Dr. Lizandro Hemphill Eosinophils/100 WBC (Bld) 0.8 % Critically low 0.9-7.0 [facility] Comment on above: Performed By: #### C BC ####[facility] Nrbhyhwxym[address] [place], [place] [address]Dr. Lizandro Joby Erythrocyte distribution width (RBC) [Ratio] 15.9 % Critically high 11.0-15.0 [facility] Comment on above: Performed By: #### C BC ####[facility] Yibdgyblva4323 [place] [address]Dr. Lizandro Hemphill Hematocrit (Bld) [Volume fraction] 31.0 % Critically low 36.0-48.0 [facility] Comment on above: Performed By: #### C BC ####[facility] Sbaavhufav26[address] [place] [address]Dr. Shanikaannie Hemphill Hemoglobin (Bld) [Mass/Vol] 10.1 g/dL Critically low 12.0-16.0 [facility] Comment on above: Performed By: #### C BC ####[facility] Stesjwfrlq7[address] [place], [place] [address]Dr. Lizandro Hemphill IG # 0.04 10e3/ul Critically high 0.00-0.03 [facility] Comment on above: Performed By: #### C BC ####[facility] Cutjiihqpl69[address] [place], [place] [address]Dr. Lizandro Hemphill IG % 0.4 % Normal 0.0-0.5 [facility] Comment on above: Performed By: #### C BC ####[facility] Mexgzqwomo[address] [place], [place] [address]Dr. Lizandro Hemphill LYMPH # 1.3 103/ul Normal 1.2-3.8 [facility] Comment on above: Performed By: #### C BC ####[facility] Ncfpeqdtfh[address] [place], [place] [address]Dr. Lizandro Hemphill Lymphocytes/100 WBC (Bld) 13.7 % Critically low 20.5-60.0 [facility] Comment on above: Performed By: #### C BC ####[facility] Fburnfenya5[address] [place], [place] [address]Dr. Lizandro Hemphill MANUAL DIFF REQ NO Normal [facility] Comment on above: Performed By: #### C BC ####[facility] Fskgtptjlf[address] [place], [place] [address]Dr. Lizandro Hemphill MCH (RBC) [Entitic mass] 28.6 pg Normal 26.7-34.0 [facility] Comment on above: Performed By: #### C BC ####[facility] Vckisaacmb[address] [place] [address]Dr. Lizandro Hemphill MCHC (RBC) [Mass/Vol] 32.6 g/dL Normal 29.9-35.2 [facility] Comment on above: Performed By: #### C BC ####[facility] Rarvgefqij18[address] [place] [address]Dr. Lizandro Hemphill MCV (RBC) [Entitic vol] 87.8 fL Normal 81.0-99.0 [facility] Comment on above: Performed By: #### C BC ####[facility] Ajqtormrwl0809 [place] [address]Dr. Lizandro Hemphill MONO # 0.7 103/ul Normal 0.3-0.8 [facility] Comment on above: Performed By: #### C BC ####[facility] Fhucvpmcgu[address] [place], [place] [address]Dr. Lizandro Hemphill Monocytes/100 WBC (Bld) 7.7 % Normal 1.7-12.0 [facility] Comment on above: Performed By: #### C BC ####[facility] Qaqofiwqex[address] [place] [address]Dr. Lizandro Hemphill NEUT # 7.2 103/ul Critically high 1.4-6.5 [facility] Comment on above: Performed By: #### C BC ####[facility] Qjbyzciyqp16[address] [place] [address]Dr. Lizandro Joby Neutrophils/100 WBC (Bld) 76.3 % Critically high 43.0-75.0 [facility] Comment on above: Performed By: #### C BC ####[facility] [address]zqnpuynmg[address] [place], [place] [address]Dr. Lizandro Hemphill Platelet mean volume (Bld) [Entitic vol] 10.3 fL Normal 9.5-13.5 [facility] Comment on above: Performed By: #### C BC ####[facility] Fkbckjrmjf7356 [place], [place] [address]Ys. Lizandro Hemphill PLT 382 103/ul Normal 150-450 [facility] Comment on above: Performed By: #### C BC ####[facility] Ctcvgauglk2627 [place] [id number]. Lizandro Hemphill RBC 3.53 106/ul Critically low 4.20-5.40 [facility] Comment on above: Performed By: #### C BC ####[facility] Rsngmdalou0731 [place] [id number]. Lizandro Hemphill WBC 9.4 103/ul Normal 4.0-11.0 [facility] Comment on above: Performed By: #### C BC ####[facility] Egxzzasgyb1796 [place] [id number]. Lizandro Hemphill LIVER PROFILEon 03-07-2022 Albumin [Mass/Vol] 2.8 g/dL Critically low 3.4-5.0 [facility] Comment on above: Performed By: #### B MP, LIVER ####[facility] Tczowxgiin9516 [place] [id number]. Lizandro Hemphill Albumin/Globulin [Mass ratio] 0.8 {ratio} Normal [facility] Comment on above: Performed By: #### B MP, LIVER ####[facility] Ueivruvemh3733 [place] [id number]. Lizandro Hemphill ALP [Catalytic activity/Vol] 108 U/L Normal 46-116 [facility] Comment on above: Performed By: #### B MP, LIVER ####[facility] Ujhrhtdypq6694 [place] [id number]. Lizandro Hemphill ALT [Catalytic activity/Vol] 36 U/L Normal 14-59 [facility] Comment on above: Performed By: #### B MP, LIVER ####[facility] Qbjxkwhuqy7572 [place] [id number]. Lizandro Hemphill AST [Catalytic activity/Vol] 29 U/L Normal 15-37 [facility] Comment on above: Performed By: #### B MP, LIVER ####[facility] Eficzwofxq[address] [place], [place] [address]Dr. Lizandro Hemphill BILI, CONJUGATED 0.1 mg/dL Normal 0.0-0.2 [facility] Comment on above: Performed By: #### B MP, LIVER ####[facility] Jmajuozosp[address] [place], [place] [address]Dr. Lizandro Hemphill Bilirubin [Mass/Vol] 0.2 mg/dL Normal 0.2-1.0 [facility] Comment on above: Performed By: #### B MP, LIVER ####[facility] Kavvxejfli[address] [place], [place] [address]Dr. Lizandro Hemphill Globulin (S) [Mass/Vol] 3.6 g/dL Normal [facility] Comment on above: Performed By: #### B MP, LIVER ####[facility] Tkvibppswt12[address] [place], [place] [address]Dr. Lizandro Hemphill Protein [Mass/Vol] 6.4 g/dL Normal 6.4-8.2 [facility] Comment on above: Performed By: #### B MP, LIVER ####[facility] Xmaqxmrmpj[address] [place], [place] [address]Dr. Lizandro Hemphill PROF CHEM 8 (BAS METB)on Anion gap [Moles/Vol] 10.2 mmol/L Normal [facility] Comment on above: Performed By: #### B MP, LIVER ####[facility] Olbuubevml[address] [place], [place] [address]Dr. Lizandro Hemphill Calcium [Mass/Vol] 8.7 mg/dL Normal 8.5-10.1 [facility] Comment on above: Performed By: #### B MP, LIVER ####[facility] Hxuacwmeif[address] [place], [place] [address]Dr. Lizandro Hemphill Chloride [Moles/Vol] 104 mmol/L Normal 98-107 [facility] Comment on above: Performed By: #### B MP, LIVER ####[facility] Ejvofnsjra[address] [place], [place] [address]Dr. Lizandro Hemphill CO2 [Moles/Vol] 27.8 mmol/L Normal 21.0-32.0 [facility] Comment on above: Performed By: #### B MP, LIVER ####[facility] Moxtwoyyng0695 [place] [id number]. Lizandro Hemphill Creatinine [Mass/Vol] 0.72 mg/dL Normal 0.55-1.02 [facility] Comment on above: Performed By: #### B MP, LIVER ####[facility] Tlmprtwoxo0315 [place] [id number]. Lizandro Hemphill EGFR-AF ARMENIAN >60 Normal >=60 [facility] Comment on above: Performed By: #### B MP, LIVER ####[facility] Scwaqzelxr9458 [place] [id number]. Lizandro Hemphill EGFR-NON AF ARMENIAN >60 Normal >=60 [facility] Comment on above: Performed By: #### B MP, LIVER ####[facility] Vfvxpnxtfr1298 [place] [id number]. Lizandro Hemphill Glucose [Mass/Vol] 97 mg/dL Normal 74-106 [facility] Comment on above: Performed By: #### B MP, LIVER ####[facility] Jlozroynmv7073 [place] [id number]. Lizandro Hemphill Potassium [Moles/Vol] 4.0 mmol/L Normal 3.5-5.1 [facility] Comment on above: Performed By: #### B MP, LIVER ####[facility] Yfcahnokdb5315 [place] [id number]. Lizandro Hemphill Sodium [Moles/Vol] 138 mmol/L Normal 136-145 [facility] Comment on above: Performed By: #### B MP, LIVER ####[facility] Pyxulonueu5701 [place] [id number]. Lizandro Hemphill Urea nitrogen [Mass/Vol] 13.0 mg/dL Normal 7.0-18.0 [facility] Comment on above: Performed By: #### B MP, LIVER ####[facility] Ledeiaqyxh4489 [place] [id number]. Lizandro Hemphill Urea nitrogen/Creatinin e [Mass ratio] 18.1 mg/mg Normal [facility] Comment on above: Performed By: #### B MP, LIVER ####[facility] Yyykeyramo8342 [place] [address]Dr. Lizandro Joby PROTIMEon 03-07-2022 INR Coag (PPP) [Relative time] 0.94 {INR} Normal [facility] Comment on above: Performed By: #### P T ####[facility] Sapcqmjumv[address] [place], [place] [address]Dr. Lizandro Hemphill INR GUIDELINES SEE BELOW Normal [facility] Comment on above: Result Comment: GUEVARA RED INR: 2.0 - 3.0 CONDITIONS NOT LISTED BELOW 2.5 - 3.5 FOR PROSTHETIC HEART VALVE REPLACEMENT 2.5 - 3.5 RECURRENT THROMBOSIS Performed By: #### P T ####[facility] Rhcytwxbfv6734[address] [place], [place] [address]Dr. Lizandro Hemphill PT Coag (PPP) [Time] 10.2 s Normal 9.0-11.6 [facility] Comment on above: Performed By: #### P T ####[facility] Owrvmwtdzz6[address] [place], [place] [address]Dr. Shanikaannie Hemphill CBC AUTO DIFFon 03-06-2022 BASO # 0.1 103/ul Normal 0.0-0.1 [facility] Comment on above: Performed By: #### C BC ####[facility] Yduavpkpxi7[address] [place], [place] [address]Dr. Lizandro Hemphill Basophils/100 WBC (Bld) 0.6 % Normal 0.2-2.0 [facility] Comment on above: Performed By: #### C BC ####[facility] Bypcgmdtor[address] [place], [place] [address]Dr. Lizandro Hemphill EO # 0.2 103/ul Normal 0.0-0.7 [facility] Comment on above: Performed By: #### C BC ####[facility] Qoegioriyu67[address] [place], [place] [address]Dr. Lizandro Hemphill Eosinophils/100 WBC (Bld) 1.4 % Normal 0.9-7.0 [facility] Comment on above: Performed By: #### C BC ####[facility] Brxhmvmvdx9140 [place] [address]Dr. Lizandro Hemphill Erythrocyte distribution width (RBC) [Ratio] 16.1 % Critically high 11.0-15.0 [facility] Comment on above: Performed By: #### C BC ####[facility] Ervjnrjidz3102 [place] [address]Dr. Lizandro Hemphill Hematocrit (Bld) [Volume fraction] 28.7 % Critically low 36.0-48.0 [facility] Comment on above: Performed By: #### C BC ####[facility] Jczbgvwvrk57[address] [place], [place] [address]Dr. Lizandro Hemphill Hemoglobin (Bld) [Mass/Vol] 9.3 g/dL Critically low 12.0-16.0 [facility] Comment on above: Performed By: #### C BC ####[facility] Zcocpbihnq14[address] [place], [place] [address]Dr. Lizandro Hemphill IG # 0.03 10e3/ul Normal 0.00-0.03 [facility] Comment on above: Performed By: #### C BC ####[facility] Pxltquzvjf99[address] [place], [place] [address]Dr. Lizandro Hemphill IG % 0.3 % Normal 0.0-0.5 [facility] Comment on above: Performed By: #### C BC ####[facility] Ncclykpubj39[address] [place], [place] [address]Dr. Lizandro Hemphill LYMPH # 1.5 103/ul Normal 1.2-3.8 [facility] Comment on above: Performed By: #### C BC ####[facility] Mmcexecvva6049[address] [place], [place] [address]Dr. Lizandro Hemphill Lymphocytes/100 WBC (Bld) 13.4 % Critically low 20.5-60.0 [facility] Comment on above: Performed By: #### C BC ####[facility] Wsmjgqrhdh5[address] [place], [place] [address]Dr. Lizandro Hemphill MANUAL DIFF REQ NO Normal [facility] Comment on above: Performed By: #### C BC ####[facility] Yuwskegkek3979 [place] [id number]. Lizandro Joby MCH (RBC) [Entitic mass] 28.5 pg Normal 26.7-34.0 [facility] Comment on above: Performed By: #### C BC ####[facility] Zsrtfnpftl2551 [place] [address]Dr. Lizandro Joby MCHC (RBC) [Mass/Vol] 32.4 g/dL Normal 29.9-35.2 [facility] Comment on above: Performed By: #### C BC ####[facility] Firrsvvqjq8806 [place] [id number]. Shanikaannie Hemphill MCV (RBC) [Entitic vol] 88.0 fL Normal 81.0-99.0 [facility] Comment on above: Performed By: #### C BC ####[facility] Aemflprevf[address] [place], [place] [address]Dr. Lizandro Hemphill MONO # 0.9 103/ul Critically high 0.3-0.8 [facility] Comment on above: Performed By: #### C BC ####[facility] Vbfxkqvvep3454 [place] [address]Dr. Lizandro Hemphill Monocytes/100 WBC (Bld) 8.7 % Normal 1.7-12.0 [facility] Comment on above: Performed By: #### C BC ####[facility] Ddvukpnpvc23[address] [place], [place] [address]Dr. Lizandro eHmphill NEUT # 8.2 103/ul Critically high 1.4-6.5 [facility] Comment on above: Performed By: #### C BC ####[facility] Ipiivotksw9[address] [place], [place] [address]Dr. Lizandro Hemphill Neutrophils/100 WBC (Bld) 75.6 % Critically high 43.0-75.0 [facility] Comment on above: Performed By: #### C BC ####[facility] Dnadyijbla6[address] [place], [place] [address]Dr. Lizandro Hemphill Platelet mean volume (Bld) [Entitic vol] 10.4 fL Normal 9.5-13.5 [facility] Comment on above: Performed By: #### C BC ####[facility] Ippcvvicek7152 [place] [id number]. Lizandro Hemphill PLT 351 103/ul Normal 150-450 [facility] Comment on above: Performed By: #### C BC ####[facility] Jepfmohmuf9793 [place], [place] [address]Gm. Shanikaannie Hemphill RBC 3.26 106/ul Critically low 4.20-5.40 [facility] Comment on above: Performed By: #### C BC ####[facility] Igzooryxvz2896 [place] [id number]. Shanikaannie Joby WBC 10.9 103/ul Normal 4.0-11.0 [facility] Comment on above: Performed By: #### C BC ####[facility] Ozetcdvlbp5259 [place] [address]Dr. Lizandro Hemphill CT HIP LT WO CONon 2 CT HIP LT WO CON Normal [facility] LIVER PROFILEon 03-06-2022 Albumin [Mass/Vol] 2.6 g/dL Critically low 3.4-5.0 [facility] Comment on above: Performed By: #### ELSA VERA ####[facility] Kzwrmbdqjq4606 [place] [address]Dr. Lizandro Hemphill Albumin/Globulin [Mass ratio] 0.8 {ratio} Normal [facility] Comment on above: Performed By: #### Diana SCHMIDT BMP ####[facility] Thckyovfhc5174 [place] [address]Dr. Lizandro Hemphill ALP [Catalytic activity/Vol] 99 U/L Normal 46-116 [facility] Comment on above: Performed By: #### ELSA VERA ####[facility] Libsbebkfd[address] [place], [place] [address]Dr. Lizandro Hemphill ALT [Catalytic activity/Vol] 36 U/L Normal 14-59 [facility] Comment on above: Performed By: #### ELSA VERA ####[facility] Cjgkepbzjl9489 [place] [address]Dr. Lizandro Hemphill AST [Catalytic activity/Vol] 38 U/L Critically high 15-37 [facility] Comment on above: Performed By: #### Diana SCHMIDT BMP ####[facility] Ftelmobjzi8[address] [place], [place] [address]Dr. Lizandro Hemphill BILI, CONJUGATED 0.0 mg/dL Normal 0.0-0.2 [facility] Comment on above: Performed By: #### Diana SCHMIDT, BMP ####[facility] Murykmmvir25[address] [place], [place] [address]Dr. Lizandro Hemphill Bilirubin [Mass/Vol] 0.1 mg/dL Critically low 0.2-1.0 [facility] Comment on above: Performed By: #### Diana SCHMIDT, BMP ####[facility] Vxnruuksdz20[address] [place], [place] [address]Dr. Lizandro Hemphill Globulin (S) [Mass/Vol] 3.4 g/dL Normal [facility] Comment on above: Performed By: #### Diana SCHMIDT BMP ####[facility] Gllnbkjput8[address] [place], [place] [address]Dr. Lizandro Hemphill Protein [Mass/Vol] 6.0 g/dL Critically low 6.4-8.2 [facility] Comment on above: Performed By: #### Diana SCHMIDT BMP ####[facility] Ijihhbukib18[address] [place], [place] [address]Dr. Lizandro Hemphill PROF CHEM 8 (BAS METB)on Anion gap [Moles/Vol] 11.1 mmol/L Normal [facility] Comment on above: Performed By: #### Diana SCHMIDT, BMP ####[facility] Telbhnndhu[address] [place], [place] [address]Dr. Lizandro Hemphill Calcium [Mass/Vol] 8.4 mg/dL Critically low 8.5-10.1 [facility] Comment on above: Performed By: #### Diana SCHMIDT, BMP ####[facility] Pcxlmwyzed[address] [place], [place] [address]Dr. Lizandro Hemphill Chloride [Moles/Vol] 105 mmol/L Normal 98-107 [facility] Comment on above: Performed By: #### L IVER, BMP ####[facility] Oaionfqjdn9452 [place] [phone]. Lizandro Hemphill CO2 [Moles/Vol] 26.6 mmol/L Normal 21.0-32.0 [facility] Comment on above: Performed By: #### L IVER, BMP ####[facility] Yrpxcgwhne4402 [place] [id number]. Lizandro Hemphill Creatinine [Mass/Vol] 0.74 mg/dL Normal 0.55-1.02 [facility] Comment on above: Performed By: #### L IVER, BMP ####[facility] Xgglitmzec1626 [place] [id number]. Lizandro Joby EGFR-AF ARMENIAN >60 Normal >=60 [facility] Comment on above: Performed By: #### L IVER, BMP ####[facility] Sanxkdioci4057 [place] [phone]. Lizandro Hemphill EGFR-NON AF ARMENIAN >60 Normal >=60 [facility] Comment on above: Performed By: #### L IVER, BMP ####[facility] Ykhidxkhoy6206 [place] [id number]. Lizandro Hemphill Glucose [Mass/Vol] 104 mg/dL Normal 74-106 [facility] Comment on above: Performed By: #### L IVER, BMP ####[facility] Qytsfcylwh2862 [place] [id number]. Lizandro Hemphill Potassium [Moles/Vol] 3.7 mmol/L Normal 3.5-5.1 [facility] Comment on above: Performed By: #### L IVER, BMP ####[facility] Qonpohhgmi2262 [place] [phone]. Lizandro Hemphill Sodium [Moles/Vol] 139 mmol/L Normal 136-145 [facility] Comment on above: Performed By: #### L IVER, BMP ####[facility] Ulugxcndno8654 [place] [id number]. Lizandro Hemphill Urea nitrogen [Mass/Vol] 13.0 mg/dL Normal 7.0-18.0 [facility] Comment on above: Performed By: #### L ELSA SCHMIDT ####[facility] Kgzlekpmfr5167 [place] [address]Dr. Lizandro Hemphill Urea nitrogen/Creatinin e [Mass ratio] 17.6 mg/mg Normal [facility] Comment on above: Performed By: #### L ROXANA BMP ####[facility] Pujlvyvavp[address] [place] [address]Dr. Lizandro Hemphill PROTIMEon 03-06-2022 INR Coag (PPP) [Relative time] {INR} Normal [facility] Comment on above: Performed By: #### P T ####[facility] Vwouamnsap3[address] [place], [place] [address]Dr. Lizandro Hemphill INR GUIDELINES SEE BELOW Normal [facility] Comment on above: Result Comment: GUEVARA RED INR: 2.0 - 3.0 CONDITIONS NOT LISTED BELOW 2.5 - 3.5 FOR PROSTHETIC HEART VALVE REPLACEMENT 2.5 - 3.5 RECURRENT THROMBOSIS Performed By: #### P T ####[facility] Oaggldulbj5467[address] [place], [place] [address]Dr. Lizandro Hemphill PT Coag (PPP) [Time] 9.7 s Normal 9.0-11.6 [facility] Comment on above: Performed By: #### P T ####[facility] Bsyntckcvj[address] [place], [place] [address]Dr. Lizandro Hemphill CBC AUTO DIFFon 03-05-2022 BASO # 0.1 103/ul Normal 0.0-0.1 [facility] Comment on above: Performed By: #### C BC ####[facility] Xfgypdpzwg2216[address] [place], [place] [address]Dr. Lizandro Hemphill Basophils/100 WBC (Bld) 0.8 % Normal 0.2-2.0 [facility] Comment on above: Performed By: #### C BC ####[facility] Nwssrnaecx56[address] [place], [place] [address]Dr. Lizandro Hemphill EO # 0.1 103/ul Normal 0.0-0.7 [facility] Comment on above: Performed By: #### C BC ####[facility] Grbeqlunuq1532 [place] [id number]. Lizandro Hemphill Eosinophils/100 WBC (Bld) 1.1 % Normal 0.9-7.0 [facility] Comment on above: Performed By: #### C BC ####[facility] Ruyxqtsism1076 [place] [address]Dr. Lizandro Hemphill Erythrocyte distribution width (RBC) [Ratio] 15.8 % Critically high 11.0-15.0 [facility] Comment on above: Performed By: #### C BC ####[facility] Lpdcvatcvv[address] [place], [place] [address]Dr. Lizandro Hemphill Hematocrit (Bld) [Volume fraction] 25.6 % Critically low 36.0-48.0 [facility] Comment on above: Performed By: #### C BC ####[facility] Qwxofdutcb2444[address] [place], [place] [address]Dr. Lizandro Hemphill Hemoglobin (Bld) [Mass/Vol] 8.6 g/dL Critically low 12.0-16.0 [facility] Comment on above: Performed By: #### C BC ####[facility] Qhruxzxphe82[address] [place], [place] [address]Dr. Lizandro Hemphill IG # 0.05 10e3/ul Critically high 0.00-0.03 [facility] Comment on above: Performed By: #### C BC ####[facility] Thukcatncg[address] [place], [place] [address]Dr. Lizandro Hemphill IG % 0.6 % Critically high 0.0-0.5 [facility] Comment on above: Performed By: #### C BC ####[facility] Xmuvtvgzag3723[address] [place], [place] [address]Dr. Lizandro Hemphill LYMPH # 1.2 103/ul Normal 1.2-3.8 [facility] Comment on above: Performed By: #### C BC ####[facility] Xnqbkqjoxo708[address] [place], [place] [address]Dr. Lizandro Hemphill Lymphocytes/100 WBC (Bld) 14.4 % Critically low 20.5-60.0 [facility] Comment on above: Performed By: #### C BC ####[facility] Syrwujfkfk9115 [place] [id number]. Lizandro Hemphill MANUAL DIFF REQ NO Normal [facility] Comment on above: Performed By: #### C BC ####[facility] Mcqnmrirhn5446 [place] [id number]. Lizandro Hemphill MCH (RBC) [Entitic mass] 29.1 pg Normal 26.7-34.0 [facility] Comment on above: Performed By: #### C BC ####[facility] Hwmbakfkzn2559 [place] [id number]. Lizandro Hemphill MCHC (RBC) [Mass/Vol] 33.6 g/dL Normal 29.9-35.2 [facility] Comment on above: Performed By: #### C BC ####[facility] Pucgwmftad[address] [place], [place] [address]Dr. Lizandro Hemphill MCV (RBC) [Entitic vol] 86.5 fL Normal 81.0-99.0 [facility] Comment on above: Performed By: #### C BC ####[facility] Virhsplwoi[address] [place], [place] [id number]. Lizandro Hemphill MONO # 0.7 103/ul Normal 0.3-0.8 [facility] Comment on above: Performed By: #### C BC ####[facility] Lqygqwamqb454[address] [place], [place] [address]Dr. Lizandro Hemphill Monocytes/100 WBC (Bld) 8.2 % Normal 1.7-12.0 [facility] Comment on above: Performed By: #### C BC ####[facility] Jdtwdaotzs[address] [place], [place] [id number]. Lizandro Hemphill NEUT # 6.3 103/ul Normal 1.4-6.5 [facility] Comment on above: Performed By: #### C BC ####[facility] Trtlhdraux[address] [place], [place] [address]Dr. Lizandro Hemphill Neutrophils/100 WBC (Bld) 74.9 % Normal 43.0-75.0 [facility] Comment on above: Performed By: #### C BC ####[facility] Kkburespcg1771 [place] [id number]. Lizandro Hemphill Platelet mean volume (Bld) [Entitic vol] 9.8 fL Normal 9.5-13.5 [facility] Comment on above: Performed By: #### C BC ####[facility] Faqisvedmc4486 [place] [phone]. Shanikaannie Hemphill PLT 331 103/ul Normal 150-450 [facility] Comment on above: Performed By: #### C BC ####[facility] Ynjvyxuavv5278 [place] [phone]. Shanikaannie Hemphill RBC 2.96 106/ul Critically low 4.20-5.40 [facility] Comment on above: Performed By: #### C BC ####[facility] Givjlnzyvk8559 [place] [id number]. Lizandro Hemphill WBC 8.5 103/ul Normal 4.0-11.0 [facility] Comment on above: Performed By: #### C BC ####[facility] Dmacptpbad0731 [place] [id number]. Lizandro Hemphill LIVER PROFILEon 03-05-2022 Albumin [Mass/Vol] 2.4 g/dL Critically low 3.4-5.0 [facility] Comment on above: Performed By: #### Diana SCHMIDT BMP ####[facility] Veaqdftxox7942 [place] [phone]. Shanikaannie Hemphill Albumin/Globulin [Mass ratio] 0.8 {ratio} Normal [facility] Comment on above: Performed By: #### Diana SCHMIDT BMP ####[facility] Kzrzyqtled1556 [place] [phone]. Lizandro Hemphill ALP [Catalytic activity/Vol] 88 U/L Normal 46-116 [facility] Comment on above: Performed By: #### L ROXANA BMP ####[facility] Svcsofvbfo7296 [place] [id number]. Lizandro Hemphill ALT [Catalytic activity/Vol] 35 U/L Normal 14-59 [facility] Comment on above: Performed By: #### L IVER, BMP ####[facility] Xtnkriurde4720 [place] [address]Dr. Lizandro Hemphill AST [Catalytic activity/Vol] 41 U/L Critically high 15-37 [facility] Comment on above: Performed By: #### L IVER, BMP ####[facility] Mtnqublzna2219 [place] [address]Dr. Lizandro Hemphill BILI, CONJUGATED 0.1 mg/dL Normal 0.0-0.2 [facility] Comment on above: Performed By: #### L IVRAUL, BMP ####[facility] Dzmazlrsbr1642 [place] [address]Dr. Lizandro Hemphill Bilirubin [Mass/Vol] 0.1 mg/dL Critically low 0.2-1.0 [facility] Comment on above: Performed By: #### L IVRAUL, BMP ####[facility] Vymehyjrkm[address] [place], [place] [address]DrCiro Hemphill Globulin (S) [Mass/Vol] 3.1 g/dL Normal [facility] Comment on above: Performed By: #### L IVRAUL, BMP ####[facility] Elpmdoiewy[address] [place], [place] [address]Dr. Lizandro Hemphill Protein [Mass/Vol] 5.5 g/dL Critically low 6.4-8.2 [facility] Comment on above: Performed By: #### L IVRAUL, BMP ####[facility] Oekghricvd[address] [place], [place] [address]DrCiro Hemphill OCC BLD IMMUNOASSAYon 2021 OCCULT BLOOD Positive Abnormal NEGATIVE [facility] Comment on above: Performed By: #### O GREGORIO ####[facility] Uzdirvkjgi6[address] [place], [place] [address]DrCiro Hemphill PROF CHEM 8 (BAS METB)on Anion gap [Moles/Vol] 11.2 mmol/L Normal [facility] Comment on above: Performed By: #### L IVRAUL, BMP ####[facility] Sbiddcavgk[address] [place], [place] [address]Dr. Lizandro Hemphill Calcium [Mass/Vol] 7.7 mg/dL Critically low 8.5-10.1 Th e [facility] Comment on above: Performed By: #### Diana SCHMIDT, BMP ####[facility] Anumhzxqbk0073 [place] [address]Dr. Lizandro Hemphill Chloride [Moles/Vol] 108 mmol/L Critically high 98-107 [facility] Comment on above: Performed By: #### Diana SCHMIDT, BMP ####[facility] Wokvjojetg6683 [place] [address]Dr. Lizandro Hemphill CO2 [Moles/Vol] 25.4 mmol/L Normal 21.0-32.0 [facility] Comment on above: Performed By: #### Diana SCHMIDT, BMP ####[facility] Wnebpqpifo79[address] [place], [place] [address]Dr. Lizandro Hemphill Creatinine [Mass/Vol] 0.62 mg/dL Normal 0.55-1.02 [facility] Comment on above: Performed By: #### Diana SCHMIDT, BMP ####[facility] Xybfkbqayd6418 [place] [address]Dr. Lizandro Hemphill EGFR-AF ARMENIAN >60 Normal >=60 [facility] Comment on above: Performed By: #### Diana SCHMIDT, BMP ####[facility] Hsqaffdoyr[address] [place], [place] [address]Dr. Lizandro Hemphill EGFR-NON AF ARMENIAN >60 Normal >=60 [facility] Comment on above: Performed By: #### Diana SCHMIDT, BMP ####[facility] Mozrgdzsvu48[address] [place] [address]Dr. Lizandro Hemphill Glucose [Mass/Vol] 115 mg/dL Critically high 74-106 [facility] Comment on above: Performed By: #### Diana SCHMIDT, BMP ####[facility] Auencwgbcd7636 [place] [address]Dr. Lizandro Hemphill Potassium [Moles/Vol] 3.6 mmol/L Normal 3.5-5.1 [facility] Comment on above: Performed By: #### Diana SCHMIDT, BMP ####[facility] Ifztdymiaj4682 [place] [address]Dr. Lizandro Hemphill Sodium [Moles/Vol] 141 mmol/L Normal 136-145 [facility] Comment on above: Performed By: #### L ELSA SCHMIDT ####[facility] Gyqbtiljfr9450 [place] [address]Dr. Lizandro Hemphill Urea nitrogen [Mass/Vol] 9.0 mg/dL Normal 7.0-18.0 [facility] Comment on above: Performed By: #### L ELSA SCHMIDT ####[facility] Vbcfcagwxz7235 [place] [address]Dr. Lizandro Hemphill Urea nitrogen/Creatinin e [Mass ratio] 14.5 mg/mg Normal [facility] Comment on above: Performed By: #### ELSA VERA ####[facility] Sodkkumdwf0422 [place] [address]Dr. Lizandro Hemphill PROTIMEon 03-05-2022 INR Coag (PPP) [Relative time] 0.93 {INR} Normal [facility] Comment on above: Performed By: #### P T ####[facility] Ppygctbnee[address] [place], [place] [address]Dr. Lizandro Hemphill INR GUIDELINES SEE BELOW Normal [facility] Comment on above: Result Comment: GUEVARA RED INR: 2.0 - 3.0 CONDITIONS NOT LISTED BELOW 2.5 - 3.5 FOR PROSTHETIC HEART VALVE REPLACEMENT 2.5 - 3.5 RECURRENT THROMBOSIS Performed By: #### P T ####[facility] Gwcbtsjkso[address] [place], [place] [address]Dr. Lizandro Hemphill PT Coag (PPP) [Time] 10.1 s Normal 9.0-11.6 [facility] Comment on above: Performed By: #### P T ####[facility] Oexfpygmbf[address] [place], [place] [address]DrCiro Hemphill CBC AUTO DIFFon 03-04-2022 BASO # 0.1 103/ul Normal 0.0-0.1 [facility] Comment on above: Performed By: #### C BC ####[facility] Clrtvevhll[address] [place], [place] [id number]. Lizandro Hemphill Basophils/100 WBC (Bld) 0.8 % Normal 0.2-2.0 [facility] Comment on above: Performed By: #### C BC ####[facility] Faiynlbzgg0856 [place] [address]Dr. Lizandro Hemphill EO # 0.1 103/ul Normal 0.0-0.7 [facility] Comment on above: Performed By: #### C BC ####[facility] Mlbrhdvsss8[address] [place], [place] [address]Dr. Lizandro Hemphill Eosinophils/100 WBC (Bld) 0.6 % Critically low 0.9-7.0 [facility] Comment on above: Performed By: #### C BC ####[facility] Lrepuvemln[address] [place], [place] [address]Dr. Lizandro Hemphill Erythrocyte distribution width (RBC) [Ratio] 15.3 % Critically high 11.0-15.0 [facility] Comment on above: Performed By: #### C BC ####[facility] Oycksvzswl94[address] [place], [place] [address]Dr. Lizandro Hemphill Hematocrit (Bld) [Volume fraction] 30.5 % Critically low 36.0-48.0 [facility] Comment on above: Performed By: #### C BC ####[facility] Byrltuwggt17[address] [place], [place] [address]Dr. Lizandro Hemphill Hemoglobin (Bld) [Mass/Vol] 10.3 g/dL Critically low 12.0-16.0 [facility] Comment on above: Performed By: #### C BC ####[facility] Lgnewtgfzs1191 [place] [address]Dr. Lizandro Joby IG # 0.05 10e3/ul Critically high 0.00-0.03 [facility] Comment on above: Performed By: #### C BC ####[facility] Iuxynqxqlp0782 [place] [address]Dr. Lizandro Hemphill IG % 0.5 % Normal 0.0-0.5 [facility] Comment on above: Performed By: #### C BC ####[facility] Zczljxvgkk1125 [place] [id number]. Lizandro Hemphill LYMPH # 1.7 103/ul Normal 1.2-3.8 [facility] Comment on above: Performed By: #### C BC ####[facility] Bnhemzxeok8341 [place] [id number]. Lizandro Hemphill Lymphocytes/100 WBC (Bld) 16.1 % Critically low 20.5-60.0 [facility] Comment on above: Performed By: #### C BC ####[facility] Eipfphhhor3832 [place] [id number]. Lizandro Joby MANUAL DIFF REQ NO Normal [facility] Comment on above: Performed By: #### C BC ####[facility] Zckooshmke9460 [place] [id number]. Lizandro Hemphill MCH (RBC) [Entitic mass] 28.5 pg Normal 26.7-34.0 [facility] Comment on above: Performed By: #### C BC ####[facility] Etjyqygaqt9236 [place] [id number]. Lizandro Hemphill MCHC (RBC) [Mass/Vol] 33.8 g/dL Normal 29.9-35.2 [facility] Comment on above: Performed By: #### C BC ####[facility] Lyhmnqlmyw7729 [place] [id number]. Lizandro Hemphill MCV (RBC) [Entitic vol] 84.5 fL Normal 81.0-99.0 [facility] Comment on above: Performed By: #### C BC ####[facility] Zycoocbsua7907 [place] [id number]. Lizandro Hemphill MONO # 0.7 103/ul Normal 0.3-0.8 [facility] Comment on above: Performed By: #### C BC ####[facility] Agauhqacdg9456 [place] [id number]. Lizandro Joby Monocytes/100 WBC (Bld) 7.1 % Normal 1.7-12.0 [facility] Comment on above: Performed By: #### C BC ####[facility] Qnseqgemkx4575 [place] [id number]. Lizandro Hemphill NEUT # 7.8 103/ul Critically high 1.4-6.5 [facility] Comment on above: Performed By: #### C BC ####[facility] Bnkelmphlc1146 [place] [id number]. Lizandro Hemphill Neutrophils/100 WBC (Bld) 74.9 % Normal 43.0-75.0 [facility] Comment on above: Performed By: #### C BC ####[facility] Akcobwhzml7169 [place] [address]Dr. Lizandro Hemphill Platelet mean volume (Bld) [Entitic vol] 9.6 fL Normal 9.5-13.5 [facility] Comment on above: Performed By: #### C BC ####[facility] Ijyxllewic3207 [place] [address]Dr. Lizandro Hemphill PLT 374 103/ul Normal 150-450 [facility] Comment on above: Performed By: #### C BC ####[facility] Txljiypuqw2692 [place] [address]Dr. Lizandro Hemphill RBC 3.61 106/ul Critically low 4.20-5.40 [facility] Comment on above: Performed By: #### C BC ####[facility] Nlkjqttbnq1355 [place] [address]Dr. Lizandro Hemphill WBC 10.4 103/ul Normal 4.0-11.0 [facility] Comment on above: Performed By: #### C BC ####[facility] Iyhtqyroob3879 [place] [address]Dr. Lizandro Hemphill BASO # 0.1 103/ul Normal 0.0-0.1 [facility] Comment on above: Performed By: #### C BC ####[facility] Chrulgfctg8944 [place] [address]Dr. Lizandro Hemphill Basophils/100 WBC (Bld) 0.8 % Normal 0.2-2.0 [facility] Comment on above: Performed By: #### C BC ####[facility] Izuwhwacow[address] [place], [place] [address]Dr. Lizandro Hemphill EO # 0.1 103/ul Normal 0.0-0.7 [facility] Comment on above: Performed By: #### C BC ####[facility] Dtutfvgulx0998 [place] [address]Dr. Lizandro Hemphill Eosinophils/100 WBC (Bld) 0.6 % Critically low 0.9-7.0 [facility] Comment on above: Performed By: #### C BC ####[facility] Xvniieeijx9400 [place] [address]Dr. Lizandro Hemphill Erythrocyte distribution width (RBC) [Ratio] 15.1 % Critically high 11.0-15.0 [facility] Comment on above: Performed By: #### C BC ####[facility] Kddwltlhdk3399 [place] [address]Dr. Lizandro Hemphill Hematocrit (Bld) [Volume fraction] 25.7 % Critically low 36.0-48.0 [facility] Comment on above: Performed By: #### C BC ####[facility] Fdbcllswkc[address] [place], [place] [address]Dr. Lizandro Hemphill Hemoglobin (Bld) [Mass/Vol] 8.4 g/dL Critically low 12.0-16.0 [facility] Comment on above: Result Comment: aurora mcclendon given Performed By: #### C BC ####[facility] Lmjraojbpo3690 [place] [address]Dr. Lizandro Hemphill IG # 0.07 10e3/ul Critically high 0.00-0.03 [facility] Comment on above: Performed By: #### C BC ####[facility] Aiyjjwfnib3789 [place] [address]Dr. Lizandro Hemphill IG % 0.6 % Critically high 0.0-0.5 [facility] Comment on above: Performed By: #### C BC ####[facility] Zuqcthwvio6290 [place] [address]Dr. Lizandro Hemphill LYMPH # 1.5 103/ul Normal 1.2-3.8 [facility] Comment on above: Performed By: #### C BC ####[facility] Eegzdhvczu9791 [place] [id number]. Lizandro Hemphill Lymphocytes/100 WBC (Bld) 13.3 % Critically low 20.5-60.0 [facility] Comment on above: Performed By: #### C BC ####[facility] Bkdyudrjck0374 [place] [id number]. Shanikaannie Hemphill MANUAL DIFF REQ NO Normal [facility] Comment on above: Performed By: #### C BC ####[facility] Qecqgcfprp5504 [place] [address]Dr. Lizandro Joby MCH (RBC) [Entitic mass] 28.4 pg Normal 26.7-34.0 [facility] Comment on above: Performed By: #### C BC ####[facility] Xqgzdqxtob[address] [place], [place] [address]Dr. Lizandro Joby MCHC (RBC) [Mass/Vol] 32.7 g/dL Normal 29.9-35.2 [facility] Comment on above: Performed By: #### C BC ####[facility] Fslemvqyba4080 [place] [address]Dr. Lizandro Hemphill MCV (RBC) [Entitic vol] 86.8 fL Normal 81.0-99.0 [facility] Comment on above: Performed By: #### C BC ####[facility] Tkhhsoehjf1092 [place] [address]Dr. Lizandro Hemphill MONO # 0.9 103/ul Critically high 0.3-0.8 [facility] Comment on above: Performed By: #### C BC ####[facility] Eejwidvygc6415 [place] [address]Dr. Shanikaannie Hemphill Monocytes/100 WBC (Bld) 8.2 % Normal 1.7-12.0 [facility] Comment on above: Performed By: #### C BC ####[facility] Qpnkfxqvru[address] [place], [place] [id number]. Lizandro Hemphill NEUT # 8.7 103/ul Critically high 1.4-6.5 [facility] Comment on above: Performed By: #### C BC ####[facility] Bkbfsmkxoj9852 [place] [id number]. Lizandro Hemphill Neutrophils/100 WBC (Bld) 76.5 % Critically high 43.0-75.0 [facility] Comment on above: Performed By: #### C BC ####[facility] Sjevlpysei6638 [place] [id number]. Lizandro Hemphill Platelet mean volume (Bld) [Entitic vol] 10.2 fL Normal 9.5-13.5 [facility] Comment on above: Performed By: #### C BC ####[facility] Djxejvsswi2238 [place] [id number]. Liznadro Hemphill PLT 287 103/ul Normal 150-450 [facility] Comment on above: Performed By: #### C BC ####[facility] Meskvlpckg5423 [place] [id number]. Lizandro Hemphill RBC 2.96 106/ul Critically low 4.20-5.40 [facility] Comment on above: Performed By: #### C BC ####[facility] Rslmwmfkuw[address] [place], [place] [address]Dr. Lizandro Hemphill WBC 11.4 103/ul Critically high 4.0-11.0 [facility] Comment on above: Performed By: #### C BC ####[facility] Yowiibyxlg4214 [place] [id number]. Lizandro Hemphill CT ABD/PELVIS WO CONon 03-04 CT ABD/PELVIS WO CON Normal [facility] PROF CHEM 8 (BAS METB)on Anion gap [Moles/Vol] 12.4 mmol/L Normal [facility] Comment on above: Performed By: #### B MP ####[facility] Kxlcubnsfo01[address] [place], [place] [address]Dr. Lizandro Hemphill Calcium [Mass/Vol] 8.0 mg/dL Critically low 8.5-10.1 [facility] Comment on above: Performed By: #### B MP ####[facility] Ooplujjxod61[address] [place], [place] [address]Dr. Lizandro Hemphill Chloride [Moles/Vol] 106 mmol/L Normal 98-107 [facility] Comment on above: Performed By: #### B MP ####[facility] Sspwejnzdx5190 [place] [address]Dr. Lizandro Joby CO2 [Moles/Vol] 24.3 mmol/L Normal 21.0-32.0 [facility] Comment on above: Performed By: #### B MP ####[facility] Jckrdqbgbl0354 [place] [address]Dr. Shanikaannie Joby Creatinine [Mass/Vol] 0.85 mg/dL Normal 0.55-1.02 [facility] Comment on above: Performed By: #### B MP ####[facility] Jjqmqaiuxr3989[address] [place], [place] [address]Dr. Shanikaannie Joby EGFR-AF ARMENIAN >60 Normal >=60 [facility] Comment on above: Performed By: #### B MP ####[facility] Ymiotnqjzk8166[address] [place], [place] [address]Dr. Lizandro Hemphill EGFR-NON AF ARMENIAN >60 Normal >=60 [facility] Comment on above: Performed By: #### B MP ####[facility] Nzeppbbruz2352[address] [place], [place] [address]Dr. Lizandro Hemphill Glucose [Mass/Vol] 91 mg/dL Normal 74-106 [facility] Comment on above: Performed By: #### B MP ####[facility] Xjvicolfpv6769[address] [place], [place] [address]Dr. Lizandro Hemphill Potassium [Moles/Vol] 3.7 mmol/L Normal 3.5-5.1 [facility] Comment on above: Performed By: #### B MP ####[facility] Qajrftdssd9894 [place] [address]Dr. Lizandro Hemphill Sodium [Moles/Vol] 139 mmol/L Normal 136-145 [facility] Comment on above: Performed By: #### B MP ####[facility] Tyetbdqmzj0846[address] [place], [place] [address]Dr. Lizandro Hemphill Urea nitrogen [Mass/Vol] 24.0 mg/dL Critically high 7.0-18.0 [facility] Comment on above: Performed By: #### B MP ####[facility] Sjhrncftrd2[address] [place], [place] [address]Dr. Lizandro Hemphill Urea nitrogen/Creatinin e [Mass ratio] 28.2 mg/mg Normal [facility] Comment on above: Performed By: #### B MP ####[facility] Nrjcntzwdm34[address] [place], [place] [address]Dr. Lizandro Hemphill PROTIMEon 03-04-2022 INR Coag (PPP) [Relative time] 1.08 {INR} Normal [facility] Comment on above: Performed By: #### P T ####[facility] Elzrcepqzo17[address] [place], [place] [address]Dr. Lizandro Hemphill INR GUIDELINES SEE BELOW Normal [facility] Comment on above: Result Comment: GUEVARA RED INR: 2.0 - 3.0 CONDITIONS NOT LISTED BELOW 2.5 - 3.5 FOR PROSTHETIC HEART VALVE REPLACEMENT 2.5 - 3.5 RECURRENT THROMBOSIS Performed By: #### P T ####[facility] Wyneumklfp6082[address] [place], [place] [address]Dr. Lizandro Hemphill PT Coag (PPP) [Time] 11.6 s Normal 9.0-11.6 [facility] Comment on above: Performed By: #### P T ####[facility] Pfbkkxwpyk[address]02[address] [place], [place] [address]Dr. Lizandro Hemphill BNPon 03-03-2022 Natriuretic peptide B (Bld) [Mass/Vol] 71.0 pg/mL Normal <=900.0 [facility] Comment on above: Performed By: #### H STROPN, LIPA, BNP, CMP ####[facility] Cdpjxbqjpe[address] [place], [place] [address]Dr. Lizandro Hemphill CBC AUTO DIFFon 03-03-2022 BASO # 0.1 103/ul Normal 0.0-0.1 [facility] Comment on above: Performed By: #### C BC ####[facility] Vrfzontkui00[address] [place], [place] [address]DrCiro Hemphill Basophils/100 WBC (Bld) 0.7 % Normal 0.2-2.0 [facility] Comment on above: Performed By: #### C BC ####[facility] Ndxtxycnzu2961 [place] [address]Dr. Lizandro Hemphill EO # 0.0 103/ul Normal 0.0-0.7 [facility] Comment on above: Performed By: #### C BC ####[facility] Frorqhivzf8975[address] [place], [place] [address]Dr. Lizandro Hemphill Eosinophils/100 WBC (Bld) 0.2 % Critically low 0.9-7.0 [facility] Comment on above: Performed By: #### C BC ####[facility] Yvpkxzrqmt526[address] [place], [place] [address]Dr. Lizandro Hemphill Erythrocyte distribution width (RBC) [Ratio] 16.3 % Critically high 11.0-15.0 [facility] Comment on above: Performed By: #### C BC ####[facility] Iedaeockka2189[address] [place], [place] [address]DrCiro Hemphill Hematocrit (Bld) [Volume fraction] 17.3 % Critically low 36.0-48.0 [facility] Comment on above: Performed By: #### C BC ####[facility] Dsxuvdlaso6824[address] [place], [place] [address]DrCiro Hemphill Hemoglobin (Bld) [Mass/Vol] 6.2 g/dL Critically low 12.0-16.0 [facility] Comment on above: Performed By: #### C BC ####[facility] Bpalvmxnfq9825[address] [place], [place] [address]DrCiro Hemphill IG # 0.09 10e3/ul Critically high 0.00-0.03 [facility] Comment on above: Performed By: #### C BC ####[facility] Ievyqhtnyv3437[address] [place], [place] [address]DrCiro Hemphill IG % 0.7 % Critically high 0.0-0.5 [facility] Comment on above: Performed By: #### C BC ####[facility] Rajyzarynk4212[address] [place], [place] [address]Dr. Lizandro Hemphill LYMPH # 2.2 103/ul Normal 1.2-3.8 [facility] Comment on above: Performed By: #### C BC ####[facility] Rsdeztkkjr2271 [place] [address]DrCiro Hemphill Lymphocytes/100 WBC (Bld) 16.1 % Critically low 20.5-60.0 [facility] Comment on above: Performed By: #### C BC ####[facility] Rjpesckjzq3916[address] [place], [place] [address]DrCiro Hemphill MANUAL DIFF REQ NO Normal [facility] Comment on above: Performed By: #### C BC ####[facility] Uewjjlvgco003[address] [place], [place] [address]DrCiro Hemphill MCH (RBC) [Entitic mass] 30.0 pg Normal 26.7-34.0 [facility] Comment on above: Performed By: #### C BC ####[facility] Hzfdldkyib034[address] [place], [place] [address]DrCiro Hemphill MCHC (RBC) [Mass/Vol] 35.8 g/dL Critically high 29.9-35.2 [facility] Comment on above: Performed By: #### C BC ####[facility] Tldxtifitc[address] [place], [place] [address]DrCiro Hemphill MCV (RBC) [Entitic vol] 83.6 fL Normal 81.0-99.0 [facility] Comment on above: Performed By: #### C BC ####[facility] Jodsymixfy14[address] [place], [place] [address]DrCiro Hemphill MONO # 1.0 103/ul Critically high 0.3-0.8 [facility] Comment on above: Performed By: #### C BC ####[facility] Uhtzxwhdrs9544[address] [place], [place] [address]DrCiro Hemphill Monocytes/100 WBC (Bld) 7.2 % Normal 1.7-12.0 [facility] Comment on above: Performed By: #### C BC ####[facility] Beihqjtere99[address] [place], [place] [address]DrCiro Hemphill NEUT # 10.3 103/ul Critically high 1.4-6.5 [facility] Comment on above: Performed By: #### C BC ####[facility] Tlvquditil2093 [place] [id number] Lizandro Hemphill Neutrophils/100 WBC (Bld) 75.1 % Critically high 43.0-75.0 [facility] Comment on above: Performed By: #### C BC ####[facility] Fqysendcxs3387 [place] [address]DrCiro Lizandro Hemphill Platelet mean volume (Bld) [Entitic vol] 10.0 fL Normal 9.5-13.5 [facility] Comment on above: Performed By: #### C BC ####[facility] Fvyslaskka[address] [place], [place] [address]DrCiro Lizandro Hemphill PLT 412 103/ul Normal 150-450 [facility] Comment on above: Performed By: #### C BC ####[facility] Ynbprottfr5046[address] [place], [place] [address]Dr. Lizandro Hemphill RBC 2.07 106/ul Critically low 4.20-5.40 [facility] Comment on above: Performed By: #### C BC ####[facility] Sobncufzqd2014[address] [place], [place] [address]DrCiro Lizandro Hemphill WBC 13.7 103/ul Critically high 4.0-11.0 [facility] Comment on above: Performed By: #### C BC ####[facility] Mkegdmcyki757[address] [place], [place] [address]DrCiro Lizandro Hemphill BASO # 0.1 103/ul Normal 0.0-0.1 [facility] Comment on above: Performed By: #### C BC ####[facility] Iwiojpkizt992[address] [place], [place] [address]DrCiro Lizandro Joby Basophils/100 WBC (Bld) 0.6 % Normal 0.2-2.0 [facility] Comment on above: Performed By: #### C BC ####[facility] Uknjktihci5[address] [place], [place] [address]DrCiro Hemphill EO # 0.0 103/ul Normal 0.0-0.7 [facility] Comment on above: Performed By: #### C BC ####[facility] Fubwfsbylv5800 [place] [address]Dr. Lizandro Hemphill Eosinophils/100 WBC (Bld) 0.2 % Critically low 0.9-7.0 [facility] Comment on above: Performed By: #### C BC ####[facility] Ciuxqsiikf1942[address] [place], [place] [address]Dr. Lizandro Joby Erythrocyte distribution width (RBC) [Ratio] 16.4 % Critically high 11.0-15.0 [facility] Comment on above: Performed By: #### C BC ####[facility] Rnxexodubs027[address] [place], [place] [address]Dr. Lizandro Hemphill Hematocrit (Bld) [Volume fraction] 19.1 % Critically low 36.0-48.0 [facility] Comment on above: Performed By: #### C BC ####[facility] Oeheejnmqb172[address] [place], [place] [address]Dr. Shanikaannie Hemphill Hemoglobin (Bld) [Mass/Vol] 6.3 g/dL Critically low 12.0-16.0 [facility] Comment on above: Performed By: #### C BC ####[facility] Qothnitmzv[address] [place], [place] [address]Dr. Shanikaannie Joby IG # 0.09 10e3/ul Critically high 0.00-0.03 [facility] Comment on above: Performed By: #### C BC ####[facility] Wkhotchyaf49[address] [place], [place] [address]Dr. Lizandro Hemphill IG % 0.6 % Critically high 0.0-0.5 [facility] Comment on above: Performed By: #### C BC ####[facility] Zplhixgudp01[address] [place], [place] [address]Dr. Lizandro Hemphill LYMPH # 1.7 103/ul Normal 1.2-3.8 [facility] Comment on above: Performed By: #### C BC ####[facility] Fvtkbsiorq30[address] [place], [place] [address]DrCiro Hemphill Lymphocytes/100 WBC (Bld) 11.9 % Critically low 20.5-60.0 [facility] Comment on above: Performed By: #### C BC ####[facility] Sgymkkihht0724 [place] [address]DrCiro Hemphill MANUAL DIFF REQ NO Normal [facility] Comment on above: Performed By: #### C BC ####[facility] Rwkkgwwkto9497 [place] [address]DrCiro Hemphill MCH (RBC) [Entitic mass] 28.4 pg Normal 26.7-34.0 [facility] Comment on above: Performed By: #### C BC ####[facility] Ydjzgtvgwv[address] [place], [place] [address]DrCiro Hemphill MCHC (RBC) [Mass/Vol] 33.0 g/dL Normal 29.9-35.2 [facility] Comment on above: Performed By: #### C BC ####[facility] Ymxgogatyf[address] [place], [place] [address]DrCiro Hemphill MCV (RBC) [Entitic vol] 86.0 fL Normal 81.0-99.0 [facility] Comment on above: Performed By: #### C BC ####[facility] Etxibepkus[address] [place], [place] [address]DrCiro Hemphill MONO # 0.9 103/ul Critically high 0.3-0.8 [facility] Comment on above: Performed By: #### C BC ####[facility] Rpgfuihhfe5[address] [address] [place], [place] [address]DrCiro Hemphill Monocytes/100 WBC (Bld) 6.1 % Normal 1.7-12.0 [facility] Comment on above: Performed By: #### C BC ####[facility] Fchjaq[address] [place], [place] [address]DrCiro Hemphill NEUT # 11.7 103/ul Critically high 1.4-6.5 [facility] Comment on above: Performed By: #### C BC ####[facility] Tmrshygyyf[address] [place], [place] [address]DrCiro Hemphill Neutrophils/100 WBC (Bld) 80.6 % Critically high 43.0-75.0 [facility] Comment on above: Performed By: #### C BC ####[facility] Xrjufxddzr9[address] [place] [id number]. Lizandro Hemphill Platelet mean volume (Bld) [Entitic vol] 10.1 fL Normal 9.5-13.5 [facility] Comment on above: Performed By: #### C BC ####[facility] Fwqdjmsuzd6637 [place] [id number]. Lizandro Hemphill PLT 449 103/ul Normal 150-450 [facility] Comment on above: Performed By: #### C BC ####[facility] Bqhhlsijvj2477 [place] [id number]. Lizandro Hemphill RBC 2.22 106/ul Critically low 4.20-5.40 [facility] Comment on above: Performed By: #### C BC ####[facility] Wpjkxgjeei8119 [place] [id number]. Lizandro Hemphill WBC 14.6 103/ul Critically high 4.0-11.0 [facility] Comment on above: Performed By: #### C BC ####[facility] Re[address]xubvu20[address] [place], [place] [address]Vp. Lizandro Hemphill [facility]on SARS-CoV-2 (COVID-19) RNA VERITO+probe Ql (Unsp spec) Not detected Normal NOT DETECTED [facility] Comment on above: Result Comment: When [...] for this test is supported by the Payroll Tax Analyst of Health and Human Service's declaration that [...] be used). Performed By: #### C VDTBH ####[facility] Mwyilnawyg[address] [place] [address]Dr. Lizandro Hemphill LACTATE/LACTIC ACIDon 2021 Lactate [Moles/Vol] 1.4 mmol/L Normal 0.4-1.9 [facility] Comment on above: Performed By: #### L ACT ####[facility] Dnjoaeasrp[address] [place], [place] [address]Dr. Lizandro Hemphill Lactate [Moles/Vol] 2.0 mmol/L Critically high 0.4-1.9 [facility] Comment on above: Performed By: #### L ACT ####[facility] Ltfwfpnhwp[address] [place], [place] [address]Dr. Lizandro Hemphill LIPASEon 03-03-2022 Lipase [Catalytic activity/Vol] 135.0 U/L Normal 73.0-393.0 [facility] Comment on above: Performed By: #### H STROPN, LIPA, BNP, CMP ####[facility] Ycybhptppg[address] [place], [place] [address]Dr. Lizandro Hemphill PROF 14(COMP METB)on 022 Albumin [Mass/Vol] 2.8 g/dL Critically low 3.4-5.0 [facility] Comment on above: Performed By: #### H STROPN, LIPA, BNP, CMP ####[facility] Bfbxnzuldq64[address] [place] [address]Dr. Lizandro Hemphill Albumin/Globulin [Mass ratio] 0.9 {ratio} Normal [facility] Comment on above: Performed By: #### H STROPN, LIPA, BNP, CMP ####[facility] Uioclmqkah0292 [place] [address]Dr. Lizandro Hemphill ALP [Catalytic activity/Vol] 96 U/L Normal 46-116 [facility] Comment on above: Performed By: #### H STROPN, LIPA, BNP, CMP ####[facility] Xuivefbofw[address] [place] [address]Dr. Lizandro Hemphill ALT [Catalytic activity/Vol] 44 U/L Normal 14-59 [facility] Comment on above: Performed By: #### H STROPN, LIPA, BNP, CMP ####[facility] Irrgomnmvf0928 [place] [address]Dr. Lizandro Hemphill Anion gap [Moles/Vol] 14.6 mmol/L Normal [facility] Comment on above: Performed By: #### H STROPN, LIPA, BNP, CMP ####[facility] Nwodvxxuqm[address] [place], [place] [address]Dr. Lizandro Hemphill AST [Catalytic activity/Vol] 46 U/L Critically high 15-37 [facility] Comment on above: Performed By: #### H STROPN, LIPA, BNP, CMP ####[facility] Xsngjhzdau[address] [place], [place] [address]Dr. Lizandro Hemphill Bilirubin [Mass/Vol] 0.2 mg/dL Normal 0.2-1.0 [facility] Comment on above: Performed By: #### H STROPN, LIPA, BNP, CMP ####[facility] Kjndalswtv[address] [place], [place] [address]Dr. Lizandro Hemphill Calcium [Mass/Vol] 8.8 mg/dL Normal 8.5-10.1 [facility] Comment on above: Performed By: #### H STROPN, LIPA, BNP, CMP ####[facility] Hjlhuhctez[address] [place], [place] [address]Dr. Lizandro Hemphill Chloride [Moles/Vol] 105 mmol/L Normal 98-107 [facility] Comment on above: Performed By: #### H STROPN, LIPA, BNP, CMP ####[facility] Zblshponjj004[address] [place], [place] [address]Dr. Lizandro Hemphill CO2 [Moles/Vol] 22.9 mmol/L Normal 21.0-32.0 [facility] Comment on above: Performed By: #### H STROPN, LIPA, BNP, CMP ####[facility] Ftgorzpkie[address] [place] [address]Dr. Lizandro Hemphill Creatinine [Mass/Vol] 1.07 mg/dL Critically high 0.55-1.02 [facility] Comment on above: Performed By: #### H STROPN, LIPA, BNP, CMP ####[facility] Rikqjywfhw8[address] [place] [address]Dr. Lizandro Hemphill EGFR-AF ARMENIAN 63 mL/min/1.73m2 Normal >=60 [facility] Comment on above: Performed By: #### H STROPN, LIPA, BNP, CMP ####[facility] Moiyvktvzp16[address] [place] [address]Dr. Lizandro Hemphill EGFR-NON AF ARMENIAN 52 mL/min/1.73m2 Critically low >=60 [facility] Comment on above: Performed By: #### H STROPN, LIPA, BNP, CMP ####[facility] Wtyxffajqz8701 [place] [address]Dr. Lizandro Hemphill Globulin (S) [Mass/Vol] 3.1 g/dL Normal [facility] Comment on above: Performed By: #### H STROPN, LIPA, BNP, CMP ####[facility] Wagtsqcjck9[address] [place], [place] [address]Dr. Lizandro Hemphill Glucose [Mass/Vol] 123 mg/dL Critically high 74-106 [facility] Comment on above: Performed By: #### H STROPN, LIPA, BNP, CMP ####[facility] Vjdodhkamr7904 [place] [address]Dr. Lizandro Hemphill Potassium [Moles/Vol] 3.5 mmol/L Normal 3.5-5.1 [facility] Comment on above: Performed By: #### H STROPN, LIPA, BNP, CMP ####[facility] Wvvewlzfqq02[address] [place], [place] [address]Dr. Lizandro Hemphill Protein [Mass/Vol] 5.9 g/dL Critically low 6.4-8.2 [facility] Comment on above: Performed By: #### H STROPN, LIPA, BNP, CMP ####[facility] Qqxdoywtyi7987 [place] [address]Dr. Lizandro Hemphill Sodium [Moles/Vol] 139 mmol/L Normal 136-145 [facility] Comment on above: Result Comment: kennedy sly lipemic sample Performed By: #### H STROPN, LIPA, BNP, CMP ####[facility] Bmnsezlnpr9197 [place] [address]Dr. Lizandro Hemphill Urea nitrogen [Mass/Vol] 37.0 mg/dL Critically high 7.0-18.0 [facility] Comment on above: Performed By: #### H STROPN, LIPA, BNP, CMP ####[facility] Cssiqoxolo8666 [place] [address]Dr. Lizandro Hemphill Urea nitrogen/Creatinin e [Mass ratio] 34.6 mg/mg Normal [facility] Comment on above: Performed By: #### H STROPN, LIPA, BNP, CMP ####[facility] Rslznopyxb[address] [place], [place] [address]Dr. Lizandro Hemphill PROTIMEon 03-03-2022 INR Coag (PPP) [Relative time] 1.18 {INR} Normal [facility] Comment on above: Performed By: #### P T ####[facility] Suqwpchxcg[address] [place], [place] [address]Dr. Lizandro Hemphill INR GUIDELINES SEE BELOW Normal [facility] Comment on above: Result Comment: GUEVARA RED INR: 2.0 - 3.0 CONDITIONS NOT LISTED BELOW 2.5 - 3.5 FOR PROSTHETIC HEART VALVE REPLACEMENT 2.5 - 3.5 RECURRENT THROMBOSIS Performed By: #### P T ####[facility] Srduedjius44[address] [place] [address]Dr. Lizandro Hemphill PT Coag (PPP) [Time] 12.6 s Critically high 9.0-11.6 [facility] Comment on above: Performed By: #### P T ####[facility] Rxnoskkzdf1277 [place] [address]Dr. Lizandro Hemphill INR Coag (PPP) [Relative time] 1.22 {INR} Normal [facility] Comment on above: Performed By: #### P T, PTT ####[facility] Ggfsvrnelm9408 [place] [id number]. Lizandro Hemphill INR GUIDELINES SEE BELOW Normal [facility] Comment on above: Result Comment: GUEVARA RED INR: 2.0 - 3.0 CONDITIONS NOT LISTED BELOW 2.5 - 3.5 FOR PROSTHETIC HEART VALVE REPLACEMENT 2.5 - 3.5 RECURRENT THROMBOSIS Performed By: #### P T, PTT ####[facility] Bvlwxiundf8472 [place] [id number]. Lizandro Hemphill PT Coag (PPP) [Time] 13.0 s Critically high 9.0-11.6 [facility] Comment on above: Performed By: #### P T, PTT ####[facility] Uvbdtaxqjy7[address] [place] [address]Dr. Shanikaannie Joby PTTon 03-03-2022 aPTT Coag (Bld) [Time] 23.1 s Normal 22.3-36.2 [facility] Comment on above: Performed By: #### P T, PTT ####[facility] Mputbkrstw9328 [place] [address]Dr. Lizandro Hemphill TROPONIN, HIGH SENSITIVITYon 03-03-2022 HSTROP 7.5 pg/mL Normal 4.0-51.3 [facility] Comment on above: Result Comment: CUT- OFF POINTS HAVE BEEN ESTABLISHED BASED ON THE FOURTH UNIVERSAL DEFINITIONS OF MYOCARDIALINFARCTION. THE UPPER REFERENCE LIMIT (URL) OF TROPONIN, DEFINED THE 99TH PERCENTILE OFcTnI DISTRIBUTION IN A REFERENCE POPULATION, HAS BEEN CONFIRMED THE DECISION THRESHOLDFOR [place] DIAGNOSIS. Performed By: #### H STROPN, LIPA, BNP, CMP ####[facility] Xfwlfrdkrv10[address] [place] [id number]. Lizandro Hemphill TYPE AND SCREENon 03-03-2022 TYPE AND SCREEN Negative Normal [facility] Comment on above: Performed By: #### T NS ####[facility] Nzprovlsav4235 [place] [id number]. Lizandro Hemphill CT HIP LT WO CONon 2 CT HIP LT WO CON Normal [facility] XR HIP LT 2 3V W PELVISon XR HIP LT 2 3V W PELVIS Normal [facility] CT CSPINE WO CONon 2 CT CSPINE WO CON Normal [facility] PRBC LEUKOREDUCEDon 02-03-20 22 PRBC LEUKOREDUCED Normal [facility] Comment on above: Performed By: #### P RBC ####[facility] Juccjovjnu6162 [place] [address]Dr. Lizandro Hemphill US VENOUS DOPPLER L Monty US VENOUS DOPPLER L ARM Normal [facility] CBC AUTO DIFFon 01-27-2022 BASO # 0.1 103/ul Normal 0.0-0.1 [facility] Comment on above: Performed By: #### C BC ####[facility] Kqmjwlwqmq3135 [place] [address]Dr. Lizandro Hemphill Basophils/100 WBC (Bld) 0.5 % Normal 0.2-2.0 [facility] Comment on above: Performed By: #### C BC ####[facility] Bbprxtytfx[address] [place], [place] [address]Dr. Lizandro Hemphill EO # 0.1 103/ul Normal 0.0-0.7 [facility] Comment on above: Performed By: #### C BC ####[facility] Ielfcwdadv7[address] [place], [place] [address]Dr. Lizandro Hemphill Eosinophils/100 WBC (Bld) 1.1 % Normal 0.9-7.0 [facility] Comment on above: Performed By: #### C BC ####[facility] Btsxtilafc3320 [place] [address]Dr. Lizandro Hemphill Erythrocyte distribution width (RBC) [Ratio] 16.9 % Critically high 11.0-15.0 [facility] Comment on above: Performed By: #### C BC ####[facility] Tgdjbulocy[address] [place], [place] [address]Dr. Lizandro Hemphill Hematocrit (Bld) [Volume fraction] 27.9 % Critically low 36.0-48.0 [facility] Comment on above: Performed By: #### C BC ####[facility] Fxjsmkwwgb4890 [place] [id number]. Lizandro Hemphill Hemoglobin (Bld) [Mass/Vol] 9.1 g/dL Critically low 12.0-16.0 [facility] Comment on above: Performed By: #### C BC ####[facility] Ykzlfxfzav8176 [place] [id number]. Lizandro Hemphill IG # 0.05 10e3/ul Critically high 0.00-0.03 [facility] Comment on above: Performed By: #### C BC ####[facility] Bcyxsssupu0077 [place] [address]Dr. Lizandro Hemphill IG % 0.5 % Normal 0.0-0.5 [facility] Comment on above: Performed By: #### C BC ####[facility] Fzbvenhbyl0245 [place] [address]Dr. Lizandro Hemphill LYMPH # 1.9 103/ul Normal 1.2-3.8 [facility] Comment on above: Performed By: #### C BC ####[facility] Ybnuqokpin8288 [place] [address]Dr. Lizandro Hemphill Lymphocytes/100 WBC (Bld) 20.2 % Critically low 20.5-60.0 [facility] Comment on above: Performed By: #### C BC ####[facility] Qirkblrwir[address] [place] [address]Dr. iLzandro Hemphill MANUAL DIFF REQ NO Normal [facility] Comment on above: Performed By: #### C BC ####[facility] Vptyybedim3255 [place] [address]Dr. Lizandro Hemphill MCH (RBC) [Entitic mass] 29.7 pg Normal 26.7-34.0 [facility] Comment on above: Performed By: #### C BC ####[facility] Exzgykrnde8[address] [place], [place] [address]Dr. Lizandro Hemphill MCHC (RBC) [Mass/Vol] 32.6 g/dL Normal 29.9-35.2 [facility] Comment on above: Performed By: #### C BC ####[facility] Aoclqnsanx8397 [place] [id number]. Lizandro Hemphill MCV (RBC) [Entitic vol] 91.2 fL Normal 81.0-99.0 [facility] Comment on above: Performed By: #### C BC ####[facility] Jbtnruewow1977 [place] [id number]. Lizandro Hemphill MONO # 1.0 103/ul Critically high 0.3-0.8 [facility] Comment on above: Performed By: #### C BC ####[facility] Liwckegbgi4431 [place] [id number]. Lizandro Hemphill Monocytes/100 WBC (Bld) 10.9 % Normal 1.7-12.0 [facility] Comment on above: Performed By: #### C BC ####[facility] Qrhmbwiorr86[address] [place], [place] [address]Dr. Lizandro Hemphill NEUT # 6.2 103/ul Normal 1.4-6.5 [facility] Comment on above: Performed By: #### C BC ####[facility] Xvsusiwkfr[address] [place], [place] [address]Dr. Lizandro Hemphill Neutrophils/100 WBC (Bld) 66.8 % Normal 43.0-75.0 [facility] Comment on above: Performed By: #### C BC ####[facility] Iuokquisyg6423 [place] [address]Dr. Lizandro Hemphill Platelet mean volume (Bld) [Entitic vol] 11.0 fL Normal 9.5-13.5 [facility] Comment on above: Performed By: #### C BC ####[facility] Tfjfatcqfe5858 [place] [id number]. Lizandro Hemphill PLT 189 103/ul Normal 150-450 [facility] Comment on above: Performed By: #### C BC ####[facility] Mrjlttbemg7431 [place] [id number]. Lizandro Hemphill RBC 3.06 106/ul Critically low 4.20-5.40 [facility] Comment on above: Performed By: #### C BC ####[facility] Eieeitgcjk6551 [place] [address]Dr. Lizandro Joby WBC 9.3 103/ul Normal 4.0-11.0 [facility] Comment on above: Performed By: #### C BC ####[facility] Saofikhgiz[address] [place], [place] [address]Dr. Lizandro Hemphill PROF 14(COMP METB)on 022 Albumin [Mass/Vol] 2.7 g/dL Critically low 3.4-5.0 [facility] e [facility] Comment on above: Performed By: #### C MP ####[facility] Zqpevmrgxa[address] [place], [place] [address]Dr. Lizandro Hemphill Albumin/Globulin [Mass ratio] 0.9 {ratio} Normal [facility] Comment on above: Performed By: #### C MP ####[facility] Hlghqahuvj1439[address] [place], [place] [address]Dr. Lizandro Hemphill ALP [Catalytic activity/Vol] 63 U/L Normal 46-116 [facility] Comment on above: Performed By: #### C MP ####[facility] Dgvvwzkzaa4766[address] [place], [place] [address]Dr. Lizandro Joby ALT [Catalytic activity/Vol] 27 U/L Normal 14-59 [facility] Comment on above: Performed By: #### C MP ####[facility] Qvdszkvmjv0105[address] [place], [place] [address]Dr. Shanikaannie Joby Anion gap [Moles/Vol] 8.5 mmol/L Normal [facility] Comment on above: Performed By: #### C MP ####[facility] Dfkxmvjakw4359[address] [place], [place] [address]Dr. Shanikaannie Hemphill AST [Catalytic activity/Vol] 33 U/L Normal 15-37 [facility] Comment on above: Performed By: #### C MP ####[facility] Vajzexxwvd[address] [place], [place] [address]Dr. Lizandro Hemphill Bilirubin [Mass/Vol] 0.2 mg/dL Normal 0.2-1.0 [facility] Comment on above: Performed By: #### C MP ####[facility] [address]eq[address]qj[address] [place], [place] [address]Dr. Lizandro Hemphill Calcium [Mass/Vol] 7.9 mg/dL Critically low 8.5-10.1 [facility] Comment on above: Performed By: #### C MP ####[facility] Qrhfebjdrq8420 [place] [address]Dr. Lizandro Hemphill Chloride [Moles/Vol] 102 mmol/L Normal 98-107 [facility] Comment on above: Performed By: #### C MP ####[facility] Pqthrbqnjf3996 [place] [address]Dr. Lizandro Hemphill CO2 [Moles/Vol] 26.5 mmol/L Normal 21.0-32.0 [facility] Comment on above: Performed By: #### C MP ####[facility] Mfbspmrlqz4625[address] [place], [place] [address]Dr. Lizandro Joby Creatinine [Mass/Vol] 0.99 mg/dL Normal 0.55-1.02 [facility] Comment on above: Performed By: #### C MP ####[facility] Bbjbpiyzds6564[address] [place], [place] [address]Dr. Lizandro Joby EGFR-AF ARMENIAN >60 Normal >=60 [facility] Comment on above: Performed By: #### C MP ####[facility] Afukzgnisq4498[address] [place], [place] [address]Dr. Lizandro Joby EGFR-NON AF ARMENIAN 57 mL/min/1.73m2 Critically low >=60 [facility] Comment on above: Performed By: #### C MP ####[facility] Wwdigaazmf9045 [place] [address]Dr. Lizandro Joby Globulin (S) [Mass/Vol] 2.9 g/dL Normal [facility] Comment on above: Performed By: #### C MP ####[facility] Wttsyuavzt1293 [place] [address]Dr. Lizandro Joby Glucose [Mass/Vol] 86 mg/dL Normal 74-106 [facility] Comment on above: Performed By: #### C MP ####[facility] Qzfomrtzkr6[address] [place], [place] [address]Dr. Lizandro Hemphill Potassium [Moles/Vol] 4.0 mmol/L Normal 3.5-5.1 [facility] Comment on above: Performed By: #### C MP ####[facility] Hscvmfrhgv8[address] [place], [place] [address]Dr. Lizandro Hemphill Protein [Mass/Vol] 5.6 g/dL Critically low 6.4-8.2 Th e [facility] Comment on above: Performed By: #### C MP ####[facility] Fdihflyjfx8432[address] [place], [place] [address]Dr. Lizandro Hemphill Sodium [Moles/Vol] 133 mmol/L Critically low 136-145 [facility] Comment on above: Performed By: #### C MP ####[facility] Qbnlkqtayz0984[address] [place], [place] [address]Dr. Lizandro Hemphill Urea nitrogen [Mass/Vol] 23.0 mg/dL Critically high 7.0-18.0 [facility] Comment on above: Performed By: #### C MP ####[facility] Dvsshqawgi8[address] [place], [place] [address]Dr. Lizandro Hemphill Urea nitrogen/Creatinin e [Mass ratio] 23.2 mg/mg Normal [facility] Comment on above: Performed By: #### C MP ####[facility] Zlfnjpscxa3[address] [place], [place] [address]Dr. Lizandro Hemphill PROTIMEon 01-27-2022 INR Coag (PPP) [Relative time] 1.23 {INR} Normal [facility] Comment on above: Performed By: #### P T, PTT ####[facility] Slwnkidcco7366[address] [place], [place] [address]Dr. Lizandro Hemphill INR GUIDELINES SEE BELOW Normal [facility] Comment on above: Result Comment: GUEVARA RED INR: 2.0 - 3.0 CONDITIONS NOT LISTED BELOW 2.5 - 3.5 FOR PROSTHETIC HEART VALVE REPLACEMENT 2.5 - 3.5 RECURRENT THROMBOSIS Performed By: #### P T, PTT ####[facility] Amrotxaxrz[address] [place], [place] [address]Dr. Lizandro Hemphill PT Coag (PPP) [Time] 13.1 s Critically high 9.0-11.6 [facility] Comment on above: Performed By: #### P T, PTT ####[facility] Gyyrltdllw[address] [place] [address]Dr. Lizandro Hemphill PTTon 01-27-2022 aPTT Coag (Bld) [Time] 22.9 s Normal 22.3-36.2 [facility] Comment on above: Performed By: #### P T, PTT ####[facility] Zpabrgitfi3[address] [place], [place] [address]Dr. Lizandro Hemphill CBC AUTO DIFFon 01-26-2022 BASO # 0.1 103/ul Normal 0.0-0.1 [facility] Comment on above: Performed By: #### C BC ####[facility] Riknpqqcie[address] [place], [place] [address]Dr. Lizandro Hemphill Basophils/100 WBC (Bld) 0.4 % Normal 0.2-2.0 [facility] Comment on above: Performed By: #### C BC ####[facility] Iikquargwu09[address] [place], [place] [address]Dr. Lizandro Hemphill EO # 0.0 103/ul Normal 0.0-0.7 [facility] Comment on above: Performed By: #### C BC ####[facility] Symvwxcohs[address] [place], [place] [address]Dr. Shanikaannie Hemphill Eosinophils/100 WBC (Bld) 0.2 % Critically low 0.9-7.0 [facility] Comment on above: Performed By: #### C BC ####[facility] Ksiasmhmvf[address] [place], [place] [address]Dr. Lizandro Hemphill Erythrocyte distribution width (RBC) [Ratio] 16.7 % Critically high 11.0-15.0 [facility] Comment on above: Performed By: #### C BC ####[facility] Tvsllblafn[address] [place], [place] [address]Dr. Lizandro Hemphill Hematocrit (Bld) [Volume fraction] 28.9 % Critically low 36.0-48.0 [facility] Comment on above: Performed By: #### C BC ####[facility] Rfotfimptb1913 [place] [id number]. Lizandro Hemphill Hemoglobin (Bld) [Mass/Vol] 9.5 g/dL Critically low 12.0-16.0 [facility] Comment on above: Performed By: #### C BC ####[facility] Tvfbwqcnji8259 [place] [id number]. Lizandro Hemphill IG # 0.06 10e3/ul Critically high 0.00-0.03 [facility] Comment on above: Performed By: #### C BC ####[facility] Uapxrunhzm0965 [place] [address]Dr. Lizandro Hemphill IG % 0.5 % Normal 0.0-0.5 [facility] Comment on above: Performed By: #### C BC ####[facility] Kptfaukbpu9996 [place] [address]Dr. Lizandro Joby LYMPH # 1.7 103/ul Normal 1.2-3.8 [facility] Comment on above: Performed By: #### C BC ####[facility] Vsrjjjsfgy[address] [place], [place] [address]Dr. Lizandro Hemphill Lymphocytes/100 WBC (Bld) 13.4 % Critically low 20.5-60.0 [facility] Comment on above: Performed By: #### C BC ####[facility] Capbbwlytu9[address] [place] [address]Dr. Lizandro Hemphill MANUAL DIFF REQ NO Normal [facility] Comment on above: Performed By: #### C BC ####[facility] Mjcfgbtvzk[address] [place], [place] [address]Dr. Lizandro Hemphill MCH (RBC) [Entitic mass] 29.5 pg Normal 26.7-34.0 [facility] Comment on above: Performed By: #### C BC ####[facility] Vmbprxzfht[address] [place], [place] [address]Dr. Lizandro Hemphill MCHC (RBC) [Mass/Vol] 32.9 g/dL Normal 29.9-35.2 [facility] Comment on above: Performed By: #### C BC ####[facility] Zsqgoisjyq9088 [place] [id number]. Lizandro Hemphill MCV (RBC) [Entitic vol] 89.8 fL Normal 81.0-99.0 [facility] Comment on above: Performed By: #### C BC ####[facility] Fcahewhcku6711 [place] [id number]. Lizandro Hemphill MONO # 1.3 103/ul Critically high 0.3-0.8 The [facility] Comment on above: Performed By: #### C BC ####[facility] Ivalgzrduq9057 [place] [id number]. Lizandro Hemphill Monocytes/100 WBC (Bld) 10.5 % Normal 1.7-12.0 [facility] Comment on above: Performed By: #### C BC ####[facility] Qmrmeotimr[address] [place], [place] [id number]. Lizandro Hemphill NEUT # 9.4 103/ul Critically high 1.4-6.5 [facility] Comment on above: Performed By: #### C BC ####[facility] Qjsiczegzg177[address] [place], [place] [id number]. Lizandro Hemphill Neutrophils/100 WBC (Bld) 75.0 % Normal 43.0-75.0 [facility] Comment on above: Performed By: #### C BC ####[facility] Nxmsvhrbni82[address] [place], [place] [id number]. Lizandro Hemphill Platelet mean volume (Bld) [Entitic vol] 10.4 fL Normal 9.5-13.5 [facility] Comment on above: Performed By: #### C BC ####[facility] Itlfcsilqw1757 [place] [id number]. Lizandro Hemphill PLT 211 103/ul Normal 150-450 [facility] Comment on above: Performed By: #### C BC ####[facility] Guydxkbekk[address] [place], [place] [address]Dr. Lizandro Hemphill RBC 3.22 106/ul Critically low 4.20-5.40 [facility] Comment on above: Performed By: #### C BC ####[facility] Prdhqjphbn1693 [place] [id number]. Lizandro Hemphill WBC 12.5 103/ul Critically high 4.0-11.0 [facility] Comment on above: Performed By: #### C BC ####[facility] Woxjtroufi9719 [place] [id number]. Lizandro Hemphill BASO # 0.0 103/ul Normal 0.0-0.1 [facility] Comment on above: Performed By: #### C BC ####[facility] Ykdijmsceo0919 [place] [id number]. Lizandro Hemphill Basophils/100 WBC (Bld) 0.2 % Normal 0.2-2.0 [facility] Comment on above: Performed By: #### C BC ####[facility] Twehydqyxh8065 [place] [id number]. Lizandro Hemphill EO # 0.0 103/ul Normal 0.0-0.7 [facility] Comment on above: Performed By: #### C BC ####[facility] Qlinsyulpf5811 [place] [id number]. Lizandro Hemphill Eosinophils/100 WBC (Bld) 0.0 % Critically low 0.9-7.0 [facility] Comment on above: Performed By: #### C BC ####[facility] Ycgquprsjx201[address] [place], [place] [id number]. Lizandro Hemphill Erythrocyte distribution width (RBC) [Ratio] 16.2 % Critically high 11.0-15.0 [facility] Comment on above: Performed By: #### C BC ####[facility] Iqmwtxfpys0125[address] [place], [place] [address]Dr. Lizandro Hemphill Hematocrit (Bld) [Volume fraction] 26.3 % Critically low 36.0-48.0 [facility] Comment on above: Performed By: #### C BC ####[facility] Ksmjspoxhj90[address] [place], [place] [address]Dr. Lizandro Hemphill Hemoglobin (Bld) [Mass/Vol] 8.9 g/dL Critically low 12.0-16.0 [facility] Comment on above: Performed By: #### C BC ####[facility] Wompwexlmw7372 [place] [id number]. Lizandro Hemphill IG # 0.08 10e3/ul Critically high 0.00-0.03 [facility] Comment on above: Performed By: #### C BC ####[facility] Iuslqiqhny8050 [place] [id number]. Lizandro Hemphill IG % 0.8 % Critically high 0.0-0.5 [facility] Comment on above: Performed By: #### C BC ####[facility] Sijmabmuyu53[address] [place] [address]Dr. Lizandro Hemphill LYMPH # 0.9 103/ul Critically low 1.2-3.8 [facility] Comment on above: Performed By: #### C BC ####[facility] Lkhlfoeyop9884 [place] [address]Dr. Shanikaannie Hemphill Lymphocytes/100 WBC (Bld) 8.8 % Critically low 20.5-60.0 [facility] Comment on above: Performed By: #### C BC ####[facility] Wlbklevuto0731 [place] [address]Dr. Lizandro Hemphill MANUAL DIFF REQ NO Normal [facility] Comment on above: Performed By: #### C BC ####[facility] Bxdctjwxeg4887 [place] [address]Dr. Lizandro Hemphill MCH (RBC) [Entitic mass] 30.1 pg Normal 26.7-34.0 [facility] Comment on above: Performed By: #### C BC ####[facility] Nkxsgjniyp[address] [place], [place] [address]Dr. Lizandro Hemphill MCHC (RBC) [Mass/Vol] 33.8 g/dL Normal 29.9-35.2 [facility] Comment on above: Performed By: #### C BC ####[facility] Dyfsspgrmq0865 [place] [address]Dr. Lizandro Hemphill MCV (RBC) [Entitic vol] 88.9 fL Normal 81.0-99.0 [facility] Comment on above: Performed By: #### C BC ####[facility] Yimlxhvevg5509 [place] [id number]. Lizandro Hemphill MONO # 1.0 103/ul Critically high 0.3-0.8 [facility] Comment on above: Performed By: #### C BC ####[facility] Cowxpanqbx2982 [place] [id number]. Lizandro Hemphill Monocytes/100 WBC (Bld) 10.1 % Normal 1.7-12.0 [facility] Comment on above: Performed By: #### C BC ####[facility] Gwrrhymmwy5664 [place] [id number]. Lizandro Hemphill NEUT # 8.1 103/ul Critically high 1.4-6.5 [facility] Comment on above: Performed By: #### C BC ####[facility] Vadnuazgtx7763 [place] [id number]. Lizandro Hemphill Neutrophils/100 WBC (Bld) 80.1 % Critically high 43.0-75.0 [facility] Comment on above: Performed By: #### C BC ####[facility] Meyiasvoic3354 [place] [id number]. Lizandro Hemphill Platelet mean volume (Bld) [Entitic vol] 10.5 fL Normal 9.5-13.5 [facility] Comment on above: Performed By: #### C BC ####[facility] Emfwtvarvp6913 [place] [id number]. Lizandro Hemphill PLT 189 103/ul Normal 150-450 [facility] Comment on above: Performed By: #### C BC ####[facility] Lauzbzumwf2658 [place] [id number]. Lizandro Hemphill RBC 2.96 106/ul Critically low 4.20-5.40 [facility] Comment on above: Performed By: #### C BC ####[facility] Jjaikkoxdc4708 [place] [id number]. Lizandro Hemphill WBC 10.1 103/ul Normal 4.0-11.0 [facility] Comment on above: Performed By: #### C BC ####[facility] Biauunwxgu2972 [place] [address]Dr. Lizandro Hemphill PROF 14(COMP METB)on 022 Albumin [Mass/Vol] 2.6 g/dL Critically low 3.4-5.0 [facility] Comment on above: Performed By: #### C MP ####[facility] Yegeflgfls7352 [place] [address]Dr. Lizandro Hemphill Albumin/Globulin [Mass ratio] 0.9 {ratio} Normal [facility] Comment on above: Performed By: #### C MP ####[facility] Jjoqspszvv4[address] [place], [place] [address]Dr. Lizandro Hemphill ALP [Catalytic activity/Vol] 62 U/L Normal 46-116 [facility] Comment on above: Performed By: #### C MP ####[facility] Imostbugdo732[address] [place], [place] [address]Dr. Lizandro Hemphill ALT [Catalytic activity/Vol] 22 U/L Normal 14-59 [facility] Comment on above: Performed By: #### C MP ####[facility] Wpvvebpfro7396[address] [place], [place] [address]Dr. Lizandro Hemphill Anion gap [Moles/Vol] 10.7 mmol/L Normal [facility] Comment on above: Performed By: #### C MP ####[facility] Tzxospcmvl36[address] [place], [place] [address]Dr. Lizandro Hemphill AST [Catalytic activity/Vol] 26 U/L Normal 15-37 [facility] Comment on above: Performed By: #### C MP ####[facility] Oezxmgsgcf4[address] [place], [place] [address]Dr. Lizandro Hemphill Bilirubin [Mass/Vol] 0.2 mg/dL Normal 0.2-1.0 [facility] Comment on above: Performed By: #### C MP ####[facility] Tyscoetakw[address] [place], [place] [address]Dr. Lizandro Hemphill Calcium [Mass/Vol] 7.6 mg/dL Critically low 8.5-10.1 [facility] Comment on above: Performed By: #### C MP ####[facility] Ahdjckepfx8678 [place] [id number]. Lizandro Hemphill Chloride [Moles/Vol] 109 mmol/L Critically high 98-107 [facility] Comment on above: Performed By: #### C MP ####[facility] Yludgrbwca8610 [place] [id number]. Lizandro Hemphill CO2 [Moles/Vol] 25.0 mmol/L Normal 21.0-32.0 [facility] Comment on above: Performed By: #### C MP ####[facility] Wvmetluvff5871 [place] [address]Dr. Lizandro Hemphill Creatinine [Mass/Vol] 0.75 mg/dL Normal 0.55-1.02 [facility] Comment on above: Performed By: #### C MP ####[facility] Mwawgczoua9420 [place] [address]Dr. Lizandro Hemphill EGFR-AF ARMENIAN >60 Normal >=60 [facility] Comment on above: Performed By: #### C MP ####[facility] Crdavytubp4010 [place] [address]Dr. Lizandro Hemphill EGFR-NON AF ARMENIAN >60 Normal >=60 [facility] Comment on above: Performed By: #### C MP ####[facility] Yfyppmyzvs6099 [place] [address]Dr. Lizandro Hemphill Globulin (S) [Mass/Vol] 2.8 g/dL Normal [facility] Comment on above: Performed By: #### C MP ####[facility] Ztmbueqnen3913 [place] [address]Dr. Lizandro Hemphill Glucose [Mass/Vol] 121 mg/dL Critically high 74-106 [facility] Comment on above: Performed By: #### C MP ####[facility] Mfglxiomum4099[address] [place], [place] [address]Dr. Lizandro Hemphill Potassium [Moles/Vol] 3.7 mmol/L Normal 3.5-5.1 [facility] Comment on above: Performed By: #### C MP ####[facility] Xwoproeyqy46[address] [place], [place] [address]Dr. Lizandro Hemphill Protein [Mass/Vol] 5.4 g/dL Critically low 6.4-8.2 [facility] e [facility] Comment on above: Performed By: #### C MP ####[facility] Neeexplqua3983 [place] [address]Dr. Shanikaannie Hemphill Sodium [Moles/Vol] 141 mmol/L Normal 136-145 [facility] Comment on above: Performed By: #### C MP ####[facility] Jygbrhsmnd6852 [place] [address]Dr. Lizandro Hemphill Urea nitrogen [Mass/Vol] 18.0 mg/dL Normal 7.0-18.0 [facility] Comment on above: Performed By: #### C MP ####[facility] Cpmebyqkez398[address] [place], [place] [address]Dr. Lizandro Hemphill Urea nitrogen/Creatinin e [Mass ratio] 24.0 mg/mg Normal [facility] Comment on above: Performed By: #### C MP ####[facility] Tutzrziyep072[address] [place], [place] [address]Dr. Shanikaannie Joby PROTIMEon 01-26-2022 INR Coag (PPP) [Relative time] 1.91 {INR} Normal [facility] Comment on above: Performed By: #### P TT, PT ####[facility] Oueijalihu475[address] [place], [place] [address]Dr. Lizandro Hemphill INR GUIDELINES SEE BELOW Normal [facility] Comment on above: Result Comment: GUEVARA RED INR: 2.0 - 3.0 CONDITIONS NOT LISTED BELOW 2.5 - 3.5 FOR PROSTHETIC HEART VALVE REPLACEMENT 2.5 - 3.5 RECURRENT THROMBOSIS Performed By: #### P TT, PT ####[facility] Nuqbmmalpk057[address] [place], [place] [address]Dr. Lizandro Hemphill PT Coag (PPP) [Time] 19.8 s Critically high 9.0-11.6 [facility] Comment on above: Performed By: #### P TT, PT ####[facility] Kuvrikpplt2874[address] [place], [place] [address]Dr. Lizandro Hemphill PTTon 01-26-2022 aPTT Coag (Bld) [Time] 27.9 s Normal 22.3-36.2 [facility] Comment on above: Performed By: #### P TT, PT ####[facility] Xrxnkvshid5776[address] [place], [place] [address]Dr. Lizandro Hemphill AMYLASEon 01-25-2022 Amylase [Catalytic activity/Vol] 82 U/L Normal 25-115 [facility] Comment on above: Performed By: #### A MY, LIPA, BNP, HSTROPN, CMP ####[facility] Hhiccxvexk1092[address] [place], [place] [address]Dr. Lizandro Hemphill BNPon 01-25-2022 Natriuretic peptide B (Bld) [Mass/Vol] 152.0 pg/mL Normal <=900.0 [facility] Comment on above: Performed By: #### A MY, LIPA, BNP, HSTROPN, CMP ####[facility] Qhigapjolb47[address] [place], [place] [address]Dr. Lizandro Hemphill CBC AUTO DIFFon 01-25-2022 BASO # 0.0 103/ul Normal 0.0-0.1 [facility] Comment on above: Performed By: #### C BC ####[facility] Mgzzubjlhg7516[address] [place], [place] [address]Dr. Lizandro Hemphill Basophils/100 WBC (Bld) 0.3 % Normal 0.2-2.0 [facility] Comment on above: Performed By: #### C BC ####[facility] Oubbimabtz6625[address] [place], [place] [address]Dr. Lizandro Hemphill EO # 0.0 103/ul Normal 0.0-0.7 [facility] Comment on above: Performed By: #### C BC ####[facility] Cbuzbzwnhp3498[address] [place], [place] [address]Dr. Lizandro Hemphill Eosinophils/100 WBC (Bld) 0.0 % Critically low 0.9-7.0 [facility] Comment on above: Performed By: #### C BC ####[facility] Bqofdedfxq2432[address] [place], [place] [address]Dr. Lizandro Hemphill Erythrocyte distribution width (RBC) [Ratio] 17.6 % Critically high 11.0-15.0 [facility] Comment on above: Performed By: #### C BC ####[facility] Zhxnjjdhmq4482 [place] [address]Dr. Lizandro Hemphill Hematocrit (Bld) [Volume fraction] 16.8 % Critically low 36.0-48.0 [facility] Comment on above: Performed By: #### C BC ####[facility] Cxxywbfzhp1904[address] [place], [place] [address]DrCiro Hemphill Hemoglobin (Bld) [Mass/Vol] 5.7 g/dL Critically low 12.0-16.0 [facility] Comment on above: Performed By: #### C BC ####[facility] Vftekmynny8566[address] [place], [place] [address]Dr. Lizandro Hemphill IG # 0.11 10e3/ul Critically high 0.00-0.03 [facility] Comment on above: Performed By: #### C BC ####[facility] Mtqpfvamyc1758[address] [place], [place] [address]Dr. Lizandro Hemphill IG % 0.9 % Critically high 0.0-0.5 [facility] Comment on above: Performed By: #### C BC ####[facility] Kjpsappdyc5159[address] [place], [place] [address]DrCiro Hemphill LYMPH # 0.7 103/ul Critically low 1.2-3.8 [facility] Comment on above: Performed By: #### C BC ####[facility] Ccceerltme2285[address] [place], [place] [address]DrCiro Hemphill Lymphocytes/100 WBC (Bld) 5.7 % Critically low 20.5-60.0 [facility] Comment on above: Performed By: #### C BC ####[facility] Nvwloxtihq4814[address] [place], [place] [address]DrCiro Hemphill MANUAL DIFF REQ NO Normal [facility] Comment on above: Performed By: #### C BC ####[facility] Rzubzuxcel54[address] [place], [place] [address]DrCiro Hemphill MCH (RBC) [Entitic mass] 29.5 pg Normal 26.7-34.0 [facility] Comment on above: Performed By: #### C BC ####[facility] Imabdeyglu5279 [place] [address]Dr. Lizandro Hemphill MCHC (RBC) [Mass/Vol] 33.9 g/dL Normal 29.9-35.2 [facility] Comment on above: Performed By: #### C BC ####[facility] Xyhcmvmdao9524[address] [place], [place] [address]Dr. Lizandro Joby MCV (RBC) [Entitic vol] 87.0 fL Normal 81.0-99.0 [facility] Comment on above: Performed By: #### C BC ####[facility] Xpaadecflx2256[address] [place], [place] [address]Dr. Lizandro Hemphill MONO # 0.1 103/ul Critically low 0.3-0.8 [facility] Comment on above: Performed By: #### C BC ####[facility] Hjxglwmsbx7613[address] [place], [place] [address]Dr. Lizandro Hemphill Monocytes/100 WBC (Bld) 0.9 % Critically low 1.7-12.0 [facility] Comment on above: Performed By: #### C BC ####[facility] Kxygtzsbho5[address] [place], [place] [address]Dr. Lizandro Hemphill NEUT # 10.7 103/ul Critically high 1.4-6.5 [facility] Comment on above: Performed By: #### C BC ####[facility] Ozeivbmcav8828[address] [place], [place] [address]Dr. Lizandro Hemphill Neutrophils/100 WBC (Bld) 92.2 % Critically high 43.0-75.0 [facility] Comment on above: Performed By: #### C BC ####[facility] Bbmevpudeb5676[address] [place], [place] [address]Dr. Shanikaannie Hemphill Platelet mean volume (Bld) [Entitic vol] 10.7 fL Normal 9.5-13.5 [facility] Comment on above: Performed By: #### C BC ####[facility] Wcjwahrwvg7255 [place] [id number]. Lizandro Hemphill PLT 217 103/ul Normal 150-450 [facility] Comment on above: Performed By: #### C BC ####[facility] Fnzlpjgdfv2930 [place] [id number]. Lizandro Hemphill RBC 1.93 106/ul Critically low 4.20-5.40 [facility] Comment on above: Performed By: #### C BC ####[facility] Camdyvlkxz1847 [place] [id number]. Lizandro Hemphill WBC 11.6 103/ul Critically high 4.0-11.0 [facility] Comment on above: Performed By: #### C BC ####[facility] Gzmndpkvkf8912[address] [place], [place] [address]Dr. Lizandro Hemphill BASO # 0.1 103/ul Normal 0.0-0.1 [facility] Comment on above: Performed By: #### C BC ####[facility] Ythtnbetgz5536[address] [place], [place] [address]Dr. Lizandro Hemphill Basophils/100 WBC (Bld) 0.6 % Normal 0.2-2.0 [facility] Comment on above: Performed By: #### C BC ####[facility] Cnlreyuvwh819[address] [place], [place] [address]Dr. Lizandro Hemphill EO # 0.0 103/ul Normal 0.0-0.7 [facility] Comment on above: Performed By: #### C BC ####[facility] Mphzerwuxn[address] [place], [place] [id number]. Lizandro Hemphill Eosinophils/100 WBC (Bld) 0.3 % Critically low 0.9-7.0 [facility] Comment on above: Performed By: #### C BC ####[facility] Xrprrynymp7485[address] [place], [place] [address]Dr. Lizandro Hemphill Erythrocyte distribution width (RBC) [Ratio] 17.4 % Critically high 11.0-15.0 [facility] Comment on above: Performed By: #### C BC ####[facility] Fsggtsykcs6[address] [place], [place] [address]Dr. Lizandro Hemphill Hematocrit (Bld) [Volume fraction] 17.1 % Critically low 36.0-48.0 [facility] Comment on above: Performed By: #### C BC ####[facility] Gmiowigtwe2864 [place] [address]Dr. Lizandro Hemphill Hemoglobin (Bld) [Mass/Vol] 5.7 g/dL Critically low 12.0-16.0 [facility] Comment on above: Performed By: #### C BC ####[facility] Sfgsypebww4080 [place] [address]Dr. Lizandro Hemphill IG # 0.10 10e3/ul Critically high 0.00-0.03 [facility] Comment on above: Performed By: #### C BC ####[facility] Gctdotbddx9113 [place] [address]Dr. Lizandro Hemphill IG % 0.9 % Critically high 0.0-0.5 [facility] Comment on above: Performed By: #### C BC ####[facility] Dumkgbswen2137 [place] [address]Dr. Lizandro Hemphill LYMPH # 1.6 103/ul Normal 1.2-3.8 [facility] Comment on above: Performed By: #### C BC ####[facility] Nxbhdqnibt1516 [place] [address]DrCiro Hemphill Lymphocytes/100 WBC (Bld) 14.4 % Critically low 20.5-60.0 [facility] Comment on above: Performed By: #### C BC ####[facility] Ctldqlcoeb0685 [place] [address]DrCiro Hemphill MANUAL DIFF REQ NO Normal [facility] Comment on above: Performed By: #### C BC ####[facility] Mlwrtpfqph[address] [place], [place] [address]DrCiro Hemphill MCH (RBC) [Entitic mass] 29.2 pg Normal 26.7-34.0 [facility] Comment on above: Performed By: #### C BC ####[facility] Mkqwvjnywa32[address] [place], [place] [address]Dr. Lizandro Hemphill MCHC (RBC) [Mass/Vol] 33.3 g/dL Normal 29.9-35.2 [facility] Comment on above: Performed By: #### C BC ####[facility] Xkdxqnipci0721 [place] [id number]. Lizandro Hemphill MCV (RBC) [Entitic vol] 87.7 fL Normal 81.0-99.0 [facility] Comment on above: Performed By: #### C BC ####[facility] Cosmimzmye9621 [place] [address]Dr. Lizandro Joby MONO # 0.9 103/ul Critically high 0.3-0.8 [facility] Comment on above: Performed By: #### C BC ####[facility] Joqxjghrou6830 [place] [address]Dr. Lizandro Hemphill Monocytes/100 WBC (Bld) 8.1 % Normal 1.7-12.0 [facility] Comment on above: Performed By: #### C BC ####[facility] Ehpmcljfja7838 [place] [address]Dr. Shanikaannie Joby NEUT # 8.5 103/ul Critically high 1.4-6.5 [facility] Comment on above: Performed By: #### C BC ####[facility] Ojdbaycyek0986 [place] [address]Dr. Lizandro Joby Neutrophils/100 WBC (Bld) 75.7 % Critically high 43.0-75.0 [facility] Comment on above: Performed By: #### C BC ####[facility] Vwppbyxakp8394 [place] [address]Dr. Lizandro Joby Platelet mean volume (Bld) [Entitic vol] 10.9 fL Normal 9.5-13.5 [facility] Comment on above: Performed By: #### C BC ####[facility] Nxkedownaw7992 [place] [id number]. Lizandro Hemphill PLT 232 103/ul Normal 150-450 [facility] Comment on above: Performed By: #### C BC ####[facility] Rxbxmgsvbk3479 [place] [address]Dr. Lizandro Hemphill RBC 1.95 106/ul Critically low 4.20-5.40 [facility] Comment on above: Performed By: #### C BC ####[facility] Bebqxghdfp5179 [place] [address]Dr. Lizandro Hemphill WBC 11.3 103/ul Critically high 4.0-11.0 [facility] Comment on above: Performed By: #### C BC ####[facility] Scabiyrzjj9067 [place] [address]Dr. Lizandro Hemphill CBC W MANUAL DIFFon 01-26-20 22 ANISOCYTOSIS SLIGHT Normal [facility] Comment on above: Performed By: #### C BCMAN ####[facility] Mbaqafscnl[address] [place], [place] [address]Dr. Lizandro Hemphill ATYPICAL LYMPH # Normal [facility] Comment on above: Performed By: #### C BCMAN ####[facility] Uleealvdma9146 [place] [address]Dr. Lizandro Hemphill ATYPICAL LYMPH % Normal [facility] Comment on above: Performed By: #### C BCMAN ####[facility] Gumcetsapo5634 [place] [address]Dr. Lizandro Hemphill BAND # 0.1 103/ul Normal 0.0-0.3 [facility] Comment on above: Performed By: #### C BCMAN ####[facility] Byzzpqzelc12[address] [place], [place] [address]Dr. Lizandro Hemphill BAND % 1 % Normal 0-5 [facility] Comment on above: Performed By: #### C BCMAN ####[facility] Rfgswsasyq7505 [place] [address]Dr. Lizandro Hemphill BASOM # 0.00 103/ul Normal 0.00-0.10 [facility] Comment on above: Performed By: #### C BCMAN ####[facility] Hpytoljjzb5660 [place] [address]Dr. Lizandro Hemphill BASOM % 0.0 % Critically low 0.2-2.0 [facility] Comment on above: Performed By: #### C BCMAN ####[facility] Jvzlehojuc5542 [place], [place] [address]Df. Lizandro Hemphill BLAST # Normal [facility] Comment on above: Performed By: #### C BCMAN ####[facility] Qdlwfsswtf3576 [place] [id number]. Lizandro Hemphill BLAST % Normal [facility] Comment on above: Performed By: #### C BCMAN ####[facility] Iqhjhmstii1735 [place] [id number]. Lizandro Hemphill CORRECTED WBC Normal 4.0-11.0 [facility] [facility] Comment on above: Performed By: #### C BCMAN ####[facility] Nlnfsxegut[address] [place] [address]Dr. Lizandro Hemphill EOS # 0.00 103/ul Normal 0.00-0.70 [facility] Comment on above: Performed By: #### C BCMARÍA ####[facility] Mkfoqnooiz[address] [place] [address]Dr. Lizandro Hemphill EOS% 0.0 % Critically low 0.9-7.0 [facility] Comment on above: Performed By: #### C BCMARÍA ####[facility] Rvfozrxbur[address] [place] [address]Dr. Lizandro Hemphill HCT 28.0 % Critically low 36.0-48.0 [facility] Comment on above: Performed By: #### C BCMARÍA ####[facility] Vxgumezqej58[address] [place] [address]Dr. Lizandro Hemphill HGB 9.6 g/dl Critically low 12.0-16.0 [facility] Comment on above: Performed By: #### C BCMAN ####[facility] Pwfyvszxru07[address] [place] [id number]. Lizandro Hemphill LYMPHM # 0.77 103/ul Critically low 1.20-3.80 [facility] Comment on above: Performed By: #### C BCMAN ####[facility] Cuegtyiarg66[address] [place] [id number]. Lizandro Hemphill LYMPHM% 8.0 % Critically low 20.5-60.0 [facility] Comment on above: Performed By: #### C DERRELL ####[facility] Djxgrbhade1344 [place] [id number]. Lizandro Hemphill MCH 30.3 pg Normal 26.7-34.0 [facility] Comment on above: Performed By: #### C DERRELL ####[facility] Wueqlvvkti5021 [place] [id number]. Lizandro Hemphill MCHC 34.3 g/dl Normal 29.9-35.2 [facility] Comment on above: Performed By: #### C DERRELL ####[facility] Cbbngxhvwb6783 [place] [id number]. Lizandro Hemphill MCV 88.3 fL Normal 81.0-99.0 [facility] Comment on above: Performed By: #### C DERRELL ####[facility] [address]kfteyvw[address] [place], [place] [address]Dr. Lizandro Hemphill METAMYELOCYTE # Normal [facility] Comment on above: Performed By: #### C DERRELL ####[facility] Rwxiouavzo6770 [place] [id number]. Lizandro Hemhpill METAMYELOCYTE % Normal [facility] Comment on above: Performed By: #### C DERRELL ####[facility] Hnthdrmdeg5156 [place] [id number]. Lizandro Hemphill MONOM# 0.10 103/ul Critically low 0.30-0.80 [facility] Comment on above: Performed By: #### C DERRELL ####[facility] Ywprdtaxoj0912 [place] [id number]. Lizandro Hemphill MONOM% 1.0 % Critically low 1.7-12.0 [facility] Comment on above: Performed By: #### C DERRELL ####[facility] Gmwohpsnhn8327 [place] [id number]. Lizandro Hemphill MPV 10.7 fL Normal 9.5-13.5 [facility] Comment on above: Performed By: #### C DERRELL ####[facility] Ochsnssvnu[address] [place], [place] [address]Is. Lizandro Hemphill MYELOCYTE # Normal [facility] Comment on above: Performed By: #### C BCMARÍA ####[facility] Eybpkyswds1052 [place], [place] [address]Rj. Lizandro Hemphill MYELOCYTE % Normal [facility] Comment on above: Performed By: #### C BCMARÍA ####[facility] Nwhsppouco4808 [place] [id number]. Lizandro Hemphill NRBC Normal [facility] Comment on above: Performed By: #### C DERRELL ####[facility] Tdazsypaky7030 [place] [id number]. Lizandro Hemphill PLT 196 103/ul Normal 150-450 [facility] Comment on above: Performed By: #### C DERRELL ####[facility] Lpdwrkqxfo2642 [place] [id number]. Lizandro Hemphill RBC 3.17 106/ul Critically low 4.20-5.40 [facility] Comment on above: Performed By: #### C DERRELL ####[facility] Clmreisfks2336 [place] [id number]. Lizandro Hemphill RDW 16.0 % Critically high 11.0-15.0 [facility] Comment on above: Performed By: #### C DERRELL ####[facility] Lximtrzzan8127 [place] [id number]. Lizandro Hemphill SEG # 8.64 103/ul Critically high 1.40-6.50 [facility] Comment on above: Performed By: #### C BCMARÍA ####[facility] Hnmjhfbten4819 [place] [id number]. Lizandro Hemphill SEG % 90.0 % Critically high 43.0-75.0 [facility] Comment on above: Performed By: #### C DERRELL ####[facility] Kkueciekfv4722 [place] [id number]. Lizandro Hemphill WBC 9.6 103/ul Normal 4.0-11.0 [facility] Comment on above: Performed By: #### C DERRELL ####[facility] Rwheqaxeur7168 [place], [place] [address]Ny. Lizandro [address] CT HEAD WO CONon 01-25-2022 CT HEAD WO CON Normal [facility] CULTURE URINEon 01-25-2022 CULTURE URINE Culture Observations : NO GROWTH. Normal [facility] Comment on above: Performed By: #### U RCX ####[facility] Ghbzgivhxv6723 [place], [place] [address]Uk. Lizandro Hemphill Covid-19 PCR (CVDTB)on SARS-CoV-2 (COVID-19) RNA VERITO+probe Ql (Unsp spec) Not detected Normal NOT DETECTED [facility] Comment on above: Result Comment: When [...] for this test is supported by the Payroll Tax Analyst of Health and Human Service's declaration that [...] be used). Performed By: #### C VDTBH ####[facility] Wvqimpwmnp9790 [place], [place] [address]Qs. Lizandro Hemphill FERRITINon 01-25-2022 Ferritin [Mass/Vol] 26.0 ng/mL Normal 8.0-252.0 [facility] Comment on above: Performed By: #### F ETIBC, FERR, B12FOL ####[facility] Qrydyiluwo0570 [place], [place] [address]Fx. Lizandro Hemphill IRON AND TIBCon 01-25-2022 % SATURATION 2.5 % Normal [facility] Comment on above: Performed By: #### F ETIBC, FERR, B12FOL ####[facility] Grzysfodsg26[address] [place] [address]Dr. Lizandro Hemphill Iron [Mass/Vol] 9.0 ug/dL Critically low 50.0-170.0 [facility] Comment on above: Performed By: #### F ETIBC, FERR, B12FOL ####[facility] Ezrqcnnmie6[address] [place] [address]Dr. Lizandro Hemphill TIBC DIRECT 356.0 ug/dL Normal 250.0-450.0 [facility] Comment on above: Performed By: #### F ETIBC, FERR, B12FOL ####[facility] Sjlwiquqlk93[address] [place] [address]Dr. Lizandro Hemphill LIPASEon 01-25-2022 Lipase [Catalytic activity/Vol] 129.0 U/L Normal 73.0-393.0 [facility] Comment on above: Performed By: #### A MY, LIPA, BNP, HSTROPN, CMP ####[facility] Etukevdlkr[address] [place], [place] [address]Dr. Lizandro Hemphill PROF 14(COMP METB)on 022 Albumin [Mass/Vol] 3.1 g/dL Critically low 3.4-5.0 [facility] Comment on above: Performed By: #### A MY, LIPA, BNP, HSTROPN, CMP ####[facility] Vndmnmxhme04[address] [place] [address]Dr. Lizandro Hemphill Albumin/Globulin [Mass ratio] 1.1 {ratio} Normal [facility] Comment on above: Performed By: #### A MY, LIPA, BNP, HSTROPN, CMP ####[facility] Usrzardwlk0254 [place] [address]Dr. Lizandro Hemphill ALP [Catalytic activity/Vol] 69 U/L Normal 46-116 [facility] Comment on above: Performed By: #### A MY, LIPA, BNP, HSTROPN, CMP ####[facility] Frbnwtxfhz5660 [place] [address]Dr. Lizandro Hemphill ALT [Catalytic activity/Vol] 24 U/L Normal 14-59 [facility] Comment on above: Performed By: #### A MY, LIPA, BNP, HSTROPN, CMP ####[facility] Rbzpgytnaa4058 [place] [address]Dr. Lizandro Hemphill Anion gap [Moles/Vol] 15.6 mmol/L Normal [facility] Comment on above: Performed By: #### A MY, LIPA, BNP, HSTROPN, CMP ####[facility] Jnrdxtovxa[address] [place], [place] [address]Dr. Lizandro Hemphill AST [Catalytic activity/Vol] 23 U/L Normal 15-37 [facility] Comment on above: Performed By: #### A MY, LIPA, BNP, HSTROPN, CMP ####[facility] Knredhlein[address] [place], [place] [address]Dr. Lizandro Hemphill Bilirubin [Mass/Vol] 0.2 mg/dL Normal 0.2-1.0 [facility] Comment on above: Performed By: #### A MY, LIPA, BNP, HSTROPN, CMP ####[facility] Hqpqnrbapn[address] [place], [place] [address]Dr. Lizandro Hemphill Calcium [Mass/Vol] 9.2 mg/dL Normal 8.5-10.1 [facility] Comment on above: Performed By: #### A MY, LIPA, BNP, HSTROPN, CMP ####[facility] Bbstnlvvqr0243 [place] [address]Dr. Lizandro Hemphill Chloride [Moles/Vol] 104 mmol/L Normal 98-107 [facility] Comment on above: Performed By: #### A MY, LIPA, BNP, HSTROPN, CMP ####[facility] Cuyzofmyrt[address] [place], [place] [address]Dr. Lizandro Hemphill CO2 [Moles/Vol] 22.9 mmol/L Normal 21.0-32.0 [facility] Comment on above: Performed By: #### A MY, LIPA, BNP, HSTROPN, CMP ####[facility] Yqisibgcjx2165 [place] [address]Dr. Lizandro Hemphill Creatinine [Mass/Vol] 1.09 mg/dL Critically high 0.55-1.02 [facility] Comment on above: Performed By: #### A MY, LIPA, BNP, HSTROPN, CMP ####[facility] Ncnrzspcfv83[address] [place] [address]Dr. Lizandro Hemphill EGFR-AF ARMENIAN >60 Normal >=60 [facility] Comment on above: Performed By: #### A MY, LIPA, BNP, HSTROPN, CMP ####[facility] Gagdodctev13[address] [place] [address]Dr. Lizandro Hemphill EGFR-NON AF ARMENIAN 51 mL/min/1.73m2 Critically low >=60 [facility] Comment on above: Performed By: #### A MY, LIPA, BNP, HSTROPN, CMP ####[facility] [address]wngkmbo[address] [place], [place] [address]Dr. Lizandro Hemphill Globulin (S) [Mass/Vol] 2.9 g/dL Normal [facility] Comment on above: Performed By: #### A MY, LIPA, BNP, HSTROPN, CMP ####[facility] Iutasddfel5741 [place] [address]Dr. Lizandro Hemphill Glucose [Mass/Vol] 112 mg/dL Critically high 74-106 [facility] Comment on above: Performed By: #### A MY, LIPA, BNP, HSTROPN, CMP ####[facility] Jpubfxixnm[address] [place], [place] [address]Dr. Lizandro Hemphill Potassium [Moles/Vol] 3.5 mmol/L Normal 3.5-5.1 [facility] Comment on above: Performed By: #### A MY, LIPA, BNP, HSTROPN, CMP ####[facility] Jsyxoagocj[address] [place], [place] [address]Dr. Lizandro Hemphill Protein [Mass/Vol] 6.0 g/dL Critically low 6.4-8.2 [facility] Comment on above: Performed By: #### A MY, LIPA, BNP, HSTROPN, CMP ####[facility] Zveyiewotx6981 [place] [address]Dr. Lizandro Hemphill Sodium [Moles/Vol] 139 mmol/L Normal 136-145 [facility] Comment on above: Performed By: #### A MY, LIPA, BNP, HSTROPN, CMP ####[facility] Jpwuccmebx7850 [place] [address]Dr. Lizandro Hemphill Urea nitrogen [Mass/Vol] 30.0 mg/dL Critically high 7.0-18.0 [facility] Comment on above: Performed By: #### A MY, LIPA, BNP, HSTROPN, CMP ####[facility] Vmtubneouy[address] [place], [place] [address]Dr. Lizandro Hemphill Urea nitrogen/Creatinin e [Mass ratio] 27.5 mg/mg Normal [facility] Comment on above: Performed By: #### A MY, LIPA, BNP, HSTROPN, CMP ####[facility] Igdgfihtca[address] [place], [place] [address]Dr. Lizandro Hemphill PROTIMEon 01-25-2022 INR Coag (PPP) [Relative time] 1.48 {INR} Normal [facility] Comment on above: Performed By: #### P TT, PT ####[facility] Kelcvxuyxv[address] [place], [place] [address]Dr. Lizandro Hemphill INR GUIDELINES SEE BELOW Normal [facility] Comment on above: Result Comment: GUEVARA RED INR: 2.0 - 3.0 CONDITIONS NOT LISTED BELOW 2.5 - 3.5 FOR PROSTHETIC HEART VALVE REPLACEMENT 2.5 - 3.5 RECURRENT THROMBOSIS Performed By: #### P TT, PT ####[facility] Bsxelwxgce[address] [place], [place] [address]Dr. Lizandro Hemphill PT Coag (PPP) [Time] 15.6 s Critically high 9.0-11.6 [facility] Comment on above: Performed By: #### P TT, PT ####[facility] Uayvcgjpdb[address] [place], [place] [address]Dr. Lizandro Hemphill PTTon 01-25-2022 aPTT Coag (Bld) [Time] 24.9 s Normal 22.3-36.2 [facility] Comment on above: Performed By: #### P TT, PT ####[facility] Rvwonjliwb3[address] [place] [address]Dr. Lizandro Hemphill TROPONIN, HIGH SENSITIVITYon 01-25-2022 HSTROP 8.4 pg/mL Normal 4.0-51.3 [facility] Comment on above: Result Comment: CUT- OFF POINTS HAVE BEEN ESTABLISHED BASED ON THE FOURTH UNIVERSAL DEFINITIONS OF MYOCARDIALINFARCTION. THE UPPER REFERENCE LIMIT (URL) OF TROPONIN, DEFINED THE 99TH PERCENTILE OFcTnI DISTRIBUTION IN A REFERENCE POPULATION, HAS BEEN CONFIRMED THE DECISION THRESHOLDFOR [place] DIAGNOSIS. Performed By: #### A MY, LIPA, BNP, HSTROPN, CMP ####[facility] Vmhgglwgkw17[address] [place] [address]Dr. Lizandro Hemphill TYPE AND SCREENon 01-25-2022 TYPE AND SCREEN Negative Normal [facility] Comment on above: Performed By: #### T NS ####[facility] Xpknlepmyg8403 [place] [address]Dr. Lizandro Hemphill VIT B12 AND FOLATEon 022 Cobalamin (Vitamin B12) [Mass/Vol] 394.0 pg/mL Normal 193.0-986.0 [facility] Comment on above: Performed By: #### F ETIBC, FERR, B12FOL ####[facility] Zcjidzqhww2327 [place] [address]Dr. Lizandro Hemphill FOLATE 18.00 ng/mL Normal 8.60-58.90 [facility] Comment on above: Performed By: #### F ETIBC, FERR, B12FOL ####[facility] Zsoikcgsnc2298 [place] [address]Dr. Lizandro Hemphill XR CHEST 1 Von 01-25-2022 XR CHEST 1 V Normal [facility] PROTIMEon 01-17-2022 INR Coag (PPP) [Relative time] {INR} Normal [facility] Comment on above: Performed By: #### P T ####[facility] [address]tkgxsfhgb[address] [place], [place] [address]Dr. Lizandro Hemphill INR GUIDELINES SEE BELOW Normal [facility] Comment on above: Result Comment: GUEVARA RED INR: 2.0 - 3.0 CONDITIONS NOT LISTED BELOW 2.5 - 3.5 FOR PROSTHETIC HEART VALVE REPLACEMENT 2.5 - 3.5 RECURRENT THROMBOSIS Performed By: #### P T ####[facility] Ytjvvymnzf8196 [place] [id number]. Lizandro Hemphill PT Coag (PPP) [Time] 9.6 s Normal 9.0-11.6 [facility] Comment on above: Performed By: #### P T ####[facility] Mykxouxlrd17[address] [place] [address]Dr. Lizandro Hemphill Covid-19 PCR ([facility])on 12-25 SARS-CoV-2 (COVID-19) RNA VERITO+probe Ql (Unsp spec) Not detected Normal NOT DETECTED [facility] Comment on above: Result Comment: This test is not yet approved or cleared by the [place] FDA. When there are no FDA-approved or cleared tests available, and other criteria are met, FDA can make tests available under an emergency access mechanism called an Emergency Use Authorization (EUA). The EUA for this test is supported by the [place] of Health and Human Service's (HHS's) declaration [...] with SARS-CoV-2. Performed By: #### C VDTBH ####[facility] Sdfxdyizuq5179 [place] [id number]. Lizandro Hemphill PROTIMEon 12-06-2021 INR Coag (PPP) [Relative time] {INR} Normal [facility] Comment on above: Performed By: #### P T ####[facility] Iqeyzrbuja5210 [place], [place] [address]Rs. Lizandro Hemphill INR GUIDELINES SEE BELOW Normal [facility] Comment on above: Result Comment: GUEVARA RED INR: 2.0 - 3.0 CONDITIONS NOT LISTED BELOW 2.5 - 3.5 FOR PROSTHETIC HEART VALVE REPLACEMENT 2.5 - 3.5 RECURRENT THROMBOSIS Performed By: #### P T ####[facility] Hmhbkrnvrv59[address] [place] [address]Dr. Lizandro Hemphill PT Coag (PPP) [Time] 9.5 s Normal 9.0-11.6 [facility] Comment on above: Performed By: #### P T ####[facility] Hgngmvflif7592 [place] [address]Dr. Lizandro Hemphill [facility]on SARS-CoV-2 (COVID-19) RNA VERITO+probe Ql (Unsp spec) Not detected Normal NOT DETECTED [facility] Comment on above: Result Comment: This test is not yet approved or cleared by the [place] FDA. When there are no FDA-approved or cleared tests available, and other criteria are met, FDA can make tests available under an emergency access mechanism called an Emergency Use Authorization (EUA). The EUA for this test is supported by the [place] of Health and Human Service's (HHS's) declaration [...] with SARS-CoV-2. Performed By: #### C VDTBH ####[facility] Qcqmjqtuah2291 [place] [id number]. Lizandro Hemphill CBC AUTO DIFFon 10-31-2021 BASO # 0.1 103/ul Normal 0.0-0.1 [facility] Comment on above: Performed By: #### C BC ####[facility] Ietpfkghoi0672 [place] [address]Dr. Lizandro Hemphill Basophils/100 WBC (Bld) 0.7 % Normal 0.2-2.0 [facility] Comment on above: Performed By: #### C BC ####[facility] Lhsauyecce9210 [place] [address]Dr. Lizandro Hemphill EO # 0.1 103/ul Normal 0.0-0.7 [facility] Comment on above: Performed By: #### C BC ####[facility] Ugovlyyhze3983 [place] [address]Dr. Lizandro Joby Eosinophils/100 WBC (Bld) 0.7 % Critically low 0.9-7.0 [facility] Comment on above: Performed By: #### C BC ####[facility] Smycxdqjzp[address] [place], [place] [address]Dr. Lizandro Hemphill Erythrocyte distribution width (RBC) [Ratio] 17.5 % Critically high 11.0-15.0 [facility] Comment on above: Performed By: #### C BC ####[facility] Ftqldjlvag[address] [place], [place] [address]Dr. Liznadro Hemphill Hematocrit (Bld) [Volume fraction] 39.6 % Normal 36.0-48.0 [facility] Comment on above: Performed By: #### C BC ####[facility] Uuairvbvcu[address] [place], [place] [address]Dr. Lizandro Hemphill Hemoglobin (Bld) [Mass/Vol] 12.6 g/dL Normal 12.0-16.0 [facility] Comment on above: Performed By: #### C BC ####[facility] Uczjcooxud[address] [place], [place] [address]Dr. Lizandro Joby IG # 0.04 10e3/ul Critically high 0.00-0.03 [facility] Comment on above: Performed By: #### C BC ####[facility] Gjuqtzhder[address] [place], [place] [address]Dr. Yiannie Hemphill IG % 0.4 % Normal 0.0-0.5 [facility] Comment on above: Performed By: #### C BC ####[facility] Uuhhrxvrfw9253 [place] [address]Dr. Lizandro Joby LYMPH # 1.8 103/ul Normal 1.2-3.8 [facility] Comment on above: Performed By: #### C BC ####[facility] Nniwuuffbt7542 [place] [address]Dr. Shanikaannie Hemphill Lymphocytes/100 WBC (Bld) 17.4 % Critically low 20.5-60.0 [facility] Comment on above: Performed By: #### C BC ####[facility] Cbyorcdzre3793 [place] [address]Dr. Lizandro Hemphill MANUAL DIFF REQ NO Normal [facility] Comment on above: Performed By: #### C BC ####[facility] Eweubmrhki2[address] [place], [place] [address]Dr. Lizandro Hemphill MCH (RBC) [Entitic mass] 26.9 pg Normal 26.7-34.0 [facility] Comment on above: Performed By: #### C BC ####[facility] Zsmhhhxsvi[address] [place], [place] [address]Dr. Lizandro Joby MCHC (RBC) [Mass/Vol] 31.8 g/dL Normal 29.9-35.2 [facility] Comment on above: Performed By: #### C BC ####[facility] Uwtmhfyxeb[address] [place], [place] [address]Dr. Lizandro Hemphill MCV (RBC) [Entitic vol] 84.6 fL Normal 81.0-99.0 [facility] Comment on above: Performed By: #### C BC ####[facility] Hiujcahrcw[address] [place], [place] [address]DrCiro Hemphill MONO # 0.9 103/ul Critically high 0.3-0.8 [facility] Comment on above: Performed By: #### C BC ####[facility] Tpgxqsssbj[address] [place], [place] [address]Dr. Lizandro Hemphill Monocytes/100 WBC (Bld) 8.5 % Normal 1.7-12.0 [facility] Comment on above: Performed By: #### C BC ####[facility] Rzlaztjbfl2848 [place] [address]Dr. Lizandro Hemphill NEUT # 7.5 103/ul Critically high 1.4-6.5 [facility] Comment on above: Performed By: #### C BC ####[facility] Rewhvghkah3822 [place] [address]Dr. Lizandro Hemphill Neutrophils/100 WBC (Bld) 72.3 % Normal 43.0-75.0 [facility] Comment on above: Performed By: #### C BC ####[facility] Spmdtujwsk2558 [place] [address]Dr. Lizandro Hemphill Platelet mean volume (Bld) [Entitic vol] 10.6 fL Normal 9.5-13.5 [facility] Comment on above: Performed By: #### C BC ####[facility] Ikekctnrsz8603 [place] [address]Dr. Lizandro Hemphill PLT 356 103/ul Normal 150-450 [facility] Comment on above: Performed By: #### C BC ####[facility] Vwkugsougi[address] [place], [place] [address]Dr. Lizandro Hemphill RBC 4.68 106/ul Normal 4.20-5.40 [facility] Comment on above: Performed By: #### C BC ####[facility] Zkvzofmuis[address] [place], [place] [address]Dr. Lizandro Hemphill WBC 10.4 103/ul Normal 4.0-11.0 [facility] Comment on above: Performed By: #### C BC ####[facility] Zcondtchai[address] [place] [address]Dr. Liz[address] Hem[address] CT HEAD WO CONon 10-31-2021 CT HEAD WO CON Normal [facility] PROF CHEM 8 (BAS METB)on Anion gap [Moles/Vol] 13.0 mmol/L Normal [facility] Comment on above: Performed By: #### H STROPN, BMP ####[facility] Wmetfgvevf6894 [place] [id number]. Lizandro Hemphill Calcium [Mass/Vol] 9.4 mg/dL Normal 8.5-10.1 [facility] Comment on above: Performed By: #### H RICARDO, BMP ####[facility] Fivmdfpeck1862 [place] [id number]. Lizandro Hemphill Chloride [Moles/Vol] 104 mmol/L Normal 98-107 [facility] Comment on above: Performed By: #### H RICARDO, BMP ####[facility] Dowpkojvqr7542 [place] [address]Dr. Lizandro Hemphill CO2 [Moles/Vol] 25.7 mmol/L Normal 21.0-32.0 [facility] Comment on above: Performed By: #### H RICRADO, BMP ####[facility] Y[address]vot[address] [place], [place] [address]Dr. Lizandro Hemphill Creatinine [Mass/Vol] 0.82 mg/dL Normal 0.55-1.02 [facility] Comment on above: Performed By: #### H RICARDO, BMP ####[facility] Bralfnmodl[address] [place], [place] [address]Dr. Lizandro Hemphill EGFR-AF ARMENIAN >60 Normal >=60 [facility] Comment on above: Performed By: #### H RICARDO, BMP ####[facility] [address]yasdaxela[address] [place], [place] [address]Dr. Lizandro Hemphill EGFR-NON AF ARMENIAN >60 Normal >=60 [facility] Comment on above: Performed By: #### H STROMERY, BMP ####[facility] Cbvvptpvdy2114 [place] [id number]. Lizandro Hemphill Glucose [Mass/Vol] 105 mg/dL Normal 74-106 [facility] Comment on above: Performed By: #### H RICARDO, BMP ####[facility] Ifogkeopiu5262 [place] [address]Dr. Lizandro Hemphill Potassium [Moles/Vol] 3.7 mmol/L Normal 3.5-5.1 [facility] Comment on above: Performed By: #### H STROMERY, BMP ####[facility] Pdzqvidhqo0462 [place] [address]Dr. Lizandro Hemphill Sodium [Moles/Vol] 139 mmol/L Normal 136-145 [facility] Comment on above: Performed By: #### H RICARDO, BMP ####[facility] Jjwsestiid66[address] [place] [address]Dr. Lizandro Hemphill Urea nitrogen [Mass/Vol] 15.0 mg/dL Normal 7.0-18.0 [facility] [facility] Comment on above: Performed By: #### H RICARDO, BMP ####[facility] Norhxvbepm[address] [place] [address]Dr. Lizandro Hemphill Urea nitrogen/Creatinin e [Mass ratio] 18.3 mg/mg Normal [facility] Comment on above: Performed By: #### H RICARDO, ELSA ####[facility] Zsephaujbw92[address] [place] [address]Dr. Lizandro Hemphill PROTIMEon 10-31-2021 INR Coag (PPP) [Relative time] 1.35 {INR} Normal [facility] Comment on above: Performed By: #### P T ####[facility] Gwlrngej[address] [place], [place] [address]Dr. Lizandro Hemphill INR GUIDELINES SEE BELOW Normal [facility] Comment on above: Result Comment: GUEVARA RED INR: 2.0 - 3.0 CONDITIONS NOT LISTED BELOW 2.5 - 3.5 FOR PROSTHETIC HEART VALVE REPLACEMENT 2.5 - 3.5 RECURRENT THROMBOSIS Performed By: #### P T ####[facility] Bxixrrvitt[address] [place], [place] [address]Dr. Lizandro Hemphill PT Coag (PPP) [Time] 14.3 s Critically high 9.0-11.6 [facility] Comment on above: Performed By: #### P T ####[facility] Bszbgqenht[address] [place], [place] [address]Dr. Lizandro Hemphill TROPONIN, HIGH SENSITIVITYon 10-31-2021 HSTROP 4.9 pg/mL Normal 4.0-51.3 [facility] Comment on above: Result Comment: CUT- OFF POINTS HAVE BEEN ESTABLISHED BASED ON THE FOURTH UNIVERSAL DEFINITIONS OF MYOCARDIALINFARCTION. THE UPPER REFERENCE LIMIT (URL) OF TROPONIN, DEFINED THE 99TH PERCENTILE OFcTnI DISTRIBUTION IN A REFERENCE POPULATION, HAS BEEN CONFIRMED THE DECISION THRESHOLDFOR [place] DIAGNOSIS. Performed By: #### H RICARDO, BMP ####[facility] Rztgwpifyy76[address] [place] [address]Dr. Lizandro Joby CBC AUTO DIFFon 10-30-2021 BASO # 0.1 103/ul Normal 0.0-0.1 [facility] Comment on above: Performed By: #### C BC ####[facility] Nkgxopwvze[address] [place], [place] [address]Dr. Lizandro Hemphill Basophils/100 WBC (Bld) 0.8 % Normal 0.2-2.0 [facility] Comment on above: Performed By: #### C BC ####[facility] Ydhocjjnes[address] [place], [place] [address]Dr. Lizandro Hemphill EO # 0.0 103/ul Normal 0.0-0.7 [facility] Comment on above: Performed By: #### C BC ####[facility] Rrdegzwvjv[address] [place], [place] [address]Dr. Lizandro Hemphill Eosinophils/100 WBC (Bld) 0.4 % Critically low 0.9-7.0 [facility] Comment on above: Performed By: #### C BC ####[facility] Cdycqozswb[address] [place], [place] [address]Dr. Lizandro Hemphill Erythrocyte distribution width (RBC) [Ratio] 17.4 % Critically high 11.0-15.0 [facility] Comment on above: Performed By: #### C BC ####[facility] Jsdkfxktml84[address] [place], [place] [address]Dr. Lizandro Hemphill Hematocrit (Bld) [Volume fraction] 39.7 % Normal 36.0-48.0 [facility] Comment on above: Performed By: #### C BC ####[facility] Wbziehmzbc[address] [place], [place] [address]Dr. Lizandro Hemphill Hemoglobin (Bld) [Mass/Vol] 12.7 g/dL Normal 12.0-16.0 [facility] Comment on above: Performed By: #### C BC ####[facility] Kkdmqkqecn44[address] [place] [id number]. Shanikaannie Joby IG # 0.06 10e3/ul Critically high 0.00-0.03 [facility] Comment on above: Performed By: #### C BC ####[facility] Oiafbqumrn6986 [place] [id number]. Lizandro Hemphill IG % 0.5 % Normal 0.0-0.5 [facility] Comment on above: Performed By: #### C BC ####[facility] Rcippblixe8237 [place] [address]Dr. Lizandro Hemphill LYMPH # 1.8 103/ul Normal 1.2-3.8 [facility] Comment on above: Performed By: #### C BC ####[facility] Xcyvewfonr6237 [place] [address]Dr. Lizandro Hemphill Lymphocytes/100 WBC (Bld) 16.1 % Critically low 20.5-60.0 [facility] Comment on above: Performed By: #### C BC ####[facility] Mzactmgcto6841 [place] [id number]. Lizandro Hemphill MANUAL DIFF REQ NO Normal [facility] Comment on above: Performed By: #### C BC ####[facility] Nkgvzfpubs2542 [place] [id number]. Lizandro Hemphill MCH (RBC) [Entitic mass] 27.3 pg Normal 26.7-34.0 [facility] Comment on above: Performed By: #### C BC ####[facility] Pnwjterrdd3001 [place] [id number]. Lizandro Hemphill MCHC (RBC) [Mass/Vol] 32.0 g/dL Normal 29.9-35.2 [facility] Comment on above: Performed By: #### C BC ####[facility] Mfbzhcxyum2041 [place] [id number]. Lizandro Hemphill MCV (RBC) [Entitic vol] 85.4 fL Normal 81.0-99.0 [facility] Comment on above: Performed By: #### C BC ####[facility] Hfzocwtpor6243 [place] [id number]. Lizandro Hemphill MONO # 1.2 103/ul Critically high 0.3-0.8 [facility] Comment on above: Performed By: #### C BC ####[facility] Ihqjqardvb5142 [place] [id number]. Lizandro Hemphill Monocytes/100 WBC (Bld) 10.9 % Normal 1.7-12.0 [facility] Comment on above: Performed By: #### C BC ####[facility] Wsgkiadqpt6618 [place] [id number]. Lizandro Hemphill NEUT # 7.8 103/ul Critically high 1.4-6.5 [facility] Comment on above: Performed By: #### C BC ####[facility] Yibwuebwhu[address] [place], [place] [address]Dr. Lizandro Hemphill Neutrophils/100 WBC (Bld) 71.3 % Normal 43.0-75.0 [facility] Comment on above: Performed By: #### C BC ####[facility] Qxygsalnvk7[address] [place], [place] [address]Dr. Lizandro Hemphill Platelet mean volume (Bld) [Entitic vol] 10.4 fL Normal 9.5-13.5 [facility] Comment on above: Performed By: #### C BC ####[facility] Lbhflruqbe1461 [place] [address]Dr. Lizandro Hemphill PLT 324 103/ul Normal 150-450 [facility] Comment on above: Performed By: #### C BC ####[facility] Vrkruxlbml[address] [place], [place] [id number]. Lizandro Hemphill RBC 4.65 106/ul Normal 4.20-5.40 [facility] Comment on above: Performed By: #### C BC ####[facility] Sykiqutzjs8992 [place] [id number]. Lizandro Hemphill WBC 11.0 103/ul Normal 4.0-11.0 [facility] Comment on above: Performed By: #### C BC ####[facility] Tyctvymtuz5721 [place] [address]Dr. Lizandro Hemphill PROF CHEM 8 (BAS METB)on Anion gap [Moles/Vol] 14.3 mmol/L Normal [facility] Comment on above: Performed By: #### B MP ####[facility] Ahnwextsxk1757 [place] [address]Dr. Lizandro Hemphill Calcium [Mass/Vol] 9.1 mg/dL Normal 8.5-10.1 [facility] Comment on above: Performed By: #### B MP ####[facility] Cqbxmcxyuj3103 [place] [address]Dr. Lizandro Hemphill Chloride [Moles/Vol] 104 mmol/L Normal 98-107 [facility] Comment on above: Performed By: #### B MP ####[facility] Agqpzbnbiy[address] [place], [place] [address]Dr. Lizandro Hemphill CO2 [Moles/Vol] 26.7 mmol/L Normal 21.0-32.0 [facility] Comment on above: Performed By: #### B MP ####[facility] Tihncfukzs[address] [place], [place] [address]Dr. Lizandro Hemphill Creatinine [Mass/Vol] 0.91 mg/dL Normal 0.55-1.02 [facility] Comment on above: Performed By: #### B MP ####[facility] Kitnhmpnwq8814[address] [place], [place] [address]Dr. Lizandro Hemphill EGFR-AF ARMENIAN >60 Normal >=60 [facility] Comment on above: Performed By: #### B MP ####[facility] Erbfmcyvvk5257 [place] [address]Dr. Lizandro Hemphill EGFR-NON AF ARMENIAN >60 Normal >=60 [facility] Comment on above: Performed By: #### B MP ####[facility] Skiwxvtvnv023[address] [place], [place] [address]Dr. Lizandro Hemphill Glucose [Mass/Vol] 119 mg/dL Critically high 74-106 [facility] Comment on above: Performed By: #### B MP ####[facility] Lsmvgpiurq5119 [place] [id number]. Lizandro Hemphill Potassium [Moles/Vol] 4.0 mmol/L Normal 3.5-5.1 [facility] Comment on above: Performed By: #### B MP ####[facility] Txujhioiyv0162 [place] [id number]. Lizandro Hemphill Sodium [Moles/Vol] 141 mmol/L Normal 136-145 [facility] Comment on above: Performed By: #### B MP ####[facility] Rybvanxbaf2437 [place] [id number]. Lizandro Hemphill Urea nitrogen [Mass/Vol] 18.0 mg/dL Normal 7.0-18.0 [facility] Comment on above: Performed By: #### B MP ####[facility] Pxutlaurix9573 [place] [address]Dr. Lizandro Hemphill Urea nitrogen/Creatinin e [Mass ratio] 19.8 mg/mg Normal [facility] Comment on above: Performed By: #### B MP ####[facility] Grsicqewqa4099 [place] [id number]. Lizandro Hepmhill CULTURE URINEon 10-27-2021 CULTURE URINE Normal [facility] Comment on above: Performed By: #### U RCX ####[facility] Ssfnpyjwyc0544 [place] [id number]. Lizandro Hemphill PROTIMEon 10-25-2021 INR Coag (PPP) [Relative time] 1.09 {INR} Normal [facility] Comment on above: Performed By: #### P T ####[facility] Ibrfitaxrq0682 [place] [address]Dr. Lizandro Hemphill INR GUIDELINES SEE BELOW Normal [facility] Comment on above: Result Comment: GUEVARA RED INR: 2.0 - 3.0 CONDITIONS NOT LISTED BELOW 2.5 - 3.5 FOR PROSTHETIC HEART VALVE REPLACEMENT 2.5 - 3.5 RECURRENT THROMBOSIS Performed By: #### P T ####[facility] Kwfbrhaozt[address] [place], [place] [address]Dr. Lizandro Hemphill PT Coag (PPP) [Time] 11.7 s Critically high 9.0-11.6 [facility] Comment on above: Performed By: #### P T ####[facility] Sdexoxzofm[address] [place], [place] [address]Dr. Lizandro Hemphill CBC AUTO DIFFon 10-21-2021 BASO # 0.1 103/ul Normal 0.0-0.1 [facility] Comment on above: Performed By: #### C BC ####[facility] Oaatpraheo[address] [place], [place] [address]Dr. Lizandro Hemphill Basophils/100 WBC (Bld) 1.2 % Normal 0.2-2.0 [facility] Comment on above: Performed By: #### C BC ####[facility] Bwudqlxdwt14[address] [place], [place] [address]Dr. Lizandro Hemphill EO # 0.2 103/ul Normal 0.0-0.7 [facility] Comment on above: Performed By: #### C BC ####[facility] Rxnmcvdciv[address] [place], [place] [address]Dr. Lizandro Hemphill Eosinophils/100 WBC (Bld) 4.5 % Normal 0.9-7.0 [facility] Comment on above: Performed By: #### C BC ####[facility] Pqmcvzgwid1924[address] [place], [place] [address]Dr. Lizandro Hemphill Erythrocyte distribution width (RBC) [Ratio] 17.0 % Critically high 11.0-15.0 [facility] Comment on above: Performed By: #### C BC ####[facility] Bldvkfnxtc8[address] [place], [place] [address]Dr. Lizandro Hemphill Hematocrit (Bld) [Volume fraction] 34.8 % Critically low 36.0-48.0 [facility] Comment on above: Performed By: #### C BC ####[facility] Robtzdeuxk39[address] [place], [place] [address]Dr. Lizandro Hemphill Hemoglobin (Bld) [Mass/Vol] 11.3 g/dL Critically low 12.0-16.0 [facility] Comment on above: Performed By: #### C BC ####[facility] Rgjparnjrx1180 [place] [id number]. Lizandro Hemphill IG # 0.01 10e3/ul Normal 0.00-0.03 [facility] Comment on above: Performed By: #### C BC ####[facility] Iibxisutkb2276 [place] [address]Dr. Lizandro Hemphill IG % 0.2 % Normal 0.0-0.5 [facility] Comment on above: Performed By: #### C BC ####[facility] Omeolkbted4794 [place] [address]Dr. Lizandro Joby LYMPH # 1.6 103/ul Normal 1.2-3.8 [facility] Comment on above: Performed By: #### C BC ####[facility] Svfgrraief2435 [place] [address]Dr. Lizandro Hemphill Lymphocytes/100 WBC (Bld) 33.1 % Normal 20.5-60.0 [facility] Comment on above: Performed By: #### C BC ####[facility] Xzzrrasnlb6236 [place] [address]Dr. Shanikaannie Hemphill MANUAL DIFF REQ NO Normal [facility] Comment on above: Performed By: #### C BC ####[facility] Hgacvctiru9131 [place] [address]Dr. Lizandro Hemphill MCH (RBC) [Entitic mass] 28.0 pg Normal 26.7-34.0 [facility] Comment on above: Performed By: #### C BC ####[facility] Fdyjgjjiyp5519 [place] [address]Dr. Lizandro Hemphill MCHC (RBC) [Mass/Vol] 32.5 g/dL Normal 29.9-35.2 [facility] Comment on above: Performed By: #### C BC ####[facility] Efujqpwpxw[address] [place], [place] [address]Dr. Lizandro Hemphill MCV (RBC) [Entitic vol] 86.4 fL Normal 81.0-99.0 [facility] Comment on above: Performed By: #### C BC ####[facility] Eadwollejb[address] [place], [place] [id number]. Lizandro Hemphill MONO # 0.7 103/ul Normal 0.3-0.8 [facility] Comment on above: Performed By: #### C BC ####[facility] Cmehdwqvey2602 [place] [address]Dr. Lizandro Hemphill Monocytes/100 WBC (Bld) 14.3 % Critically high 1.7-12.0 [facility] Comment on above: Performed By: #### C BC ####[facility] Xtejcsroki3659 [place] [address]Dr. Lizandro Hemphill NEUT # 2.3 103/ul Normal 1.4-6.5 [facility] Comment on above: Performed By: #### C BC ####[facility] Cnaefxlcvr7374 [place] [address]Dr. Lizandro Hemphill Neutrophils/100 WBC (Bld) 46.7 % Normal 43.0-75.0 [facility] Comment on above: Performed By: #### C BC ####[facility] Ungotxlrym5729 [place] [address]Dr. Lizandro Hemphill Platelet mean volume (Bld) [Entitic vol] 10.9 fL Normal 9.5-13.5 [facility] Comment on above: Performed By: #### C BC ####[facility] Xvwrvmoimn3142 [place] [address]Dr. Lizandro Hemphill PLT 213 103/ul Normal 150-450 [facility] Comment on above: Performed By: #### C BC ####[facility] Hpvrgootqg0160 [place] [id number]. Lizandro Hemphill RBC 4.03 106/ul Critically low 4.20-5.40 [facility] Comment on above: Performed By: #### C BC ####[facility] Ojalsyvmhv3347 [place] [id number]. Lizandro Hemphill WBC 4.9 103/ul Normal 4.0-11.0 [facility] Comment on above: Performed By: #### C BC ####[facility] Bbpwgfoorh[address] [place], [place] [address]Dr. Lizandro Hemphill CRPon 10-21-2021 CRP [Mass/Vol] mg/L Normal <=1.0 [facility] Comment on above: Performed By: #### C RP, CMP ####[facility] Msgavzcitq7408 [place], [place] [address]Ju. Lizandro Hemphill Covid-19 PCR (CVDTBH)on 09-24 SARS-CoV-2 (COVID-19) RNA VERITO+probe Ql (Unsp spec) Not detected Normal NOT DETECTED [facility] Comment on above: Result Comment: This test is not yet approved or cleared by the [place] FDA. When there are no FDA-approved or cleared tests available, and other criteria are met, FDA can make tests available under an emergency access mechanism called an Emergency Use Authorization (EUA). The EUA for this test is supported by the Payroll Tax Analyst of Health and Human Service's (HHS's) declaration [...] with SARS-CoV-2. Performed By: #### C VDTBH ####[facility] Xozliczzmg3184 [place] [id number] Lizandro Joby PROF 14(COMP METB)on 022 Albumin [Mass/Vol] 2.7 g/dL Critically low 3.4-5.0 Th e [facility] Comment on above: Performed By: #### C RP, CMP ####[facility] Ccbvatmrcu7457 [place] [address]Dr. Lizandro Joby Albumin/Globulin [Mass ratio] 0.8 {ratio} Normal [facility] Comment on above: Performed By: #### C RP, CMP ####[facility] Wldpjswtbw7675 [place] [address]Dr. Lizandro Hemphill ALP [Catalytic activity/Vol] 86 U/L Normal 46-116 [facility] Comment on above: Performed By: #### C RP, CMP ####[facility] Mckwbefujk0877 [place] [address]Dr. Lizandro Hemphill ALT [Catalytic activity/Vol] 23 U/L Normal 14-59 [facility] Comment on above: Performed By: #### C RP, CMP ####[facility] Johizombxz7204 [place] [address]Dr. Lizandro Hemphill Anion gap [Moles/Vol] 10.8 mmol/L Normal [facility] Comment on above: Performed By: #### C RP, CMP ####[facility] Rmooyybwms[address] [place], [place] [address]Dr. Lizandro Hemphill AST [Catalytic activity/Vol] 25 U/L Normal 15-37 [facility] Comment on above: Performed By: #### C RP, CMP ####[facility] Epvkyuclid9[address] [place], [place] [address]Dr. Lizandro Hemphill Bilirubin [Mass/Vol] 0.1 mg/dL Critically low 0.2-1.0 [facility] Comment on above: Performed By: #### C RP, CMP ####[facility] Gqadyizbge45[address] [place], [place] [address]Dr. Lizandro Hemphill Calcium [Mass/Vol] 8.0 mg/dL Critically low 8.5-10.1 [facility] Comment on above: Performed By: #### C RP, CMP ####[facility] Pxdynrxyyx7396 [place] [address]Dr. Lizandro Hemphill Chloride [Moles/Vol] 107 mmol/L Normal 98-107 [facility] Comment on above: Performed By: #### C RP, CMP ####[facility] Yfmmbirnal7427 [place] [address]Dr. Lizandro Hemphill CO2 [Moles/Vol] 26.7 mmol/L Normal 21.0-32.0 [facility] Comment on above: Performed By: #### C RP, CMP ####[facility] Jorbnqrhlo8424 [place] [address]Dr. Lizandro Hemphill Creatinine [Mass/Vol] 0.80 mg/dL Normal 0.55-1.02 [facility] Comment on above: Performed By: #### C RP, CMP ####[facility] Ryshhuicvo6941 [place] [address]Dr. Lizandro Hemphill EGFR-AF ARMENIAN >60 Normal >=60 [facility] Comment on above: Performed By: #### C RP, CMP ####[facility] Odbacvwiiw9201 [place] [address]Dr. Lizandro Hemphill EGFR-NON AF ARMENIAN >60 Normal >=60 [facility] Comment on above: Performed By: #### C RP, CMP ####[facility] Pqjgbjdago7[address] [place], [place] [address]Dr. Lizandro Hemphill Globulin (S) [Mass/Vol] 3.2 g/dL Normal [facility] Comment on above: Performed By: #### C RP, CMP ####[facility] Upueklmthw4386[address] [place], [place] [address]Dr. Lizandro Hemphill Glucose [Mass/Vol] 108 mg/dL Critically high 74-106 [facility] Comment on above: Performed By: #### C RP, CMP ####[facility] Mncbsrvexx36[address] [place], [place] [address]Dr. Lizandro Hemphill Potassium [Moles/Vol] 3.5 mmol/L Normal 3.5-5.1 [facility] Comment on above: Performed By: #### C RP, CMP ####[facility] Ifyumigifc05[address] [place], [place] [address]Dr. Lizandro Hemphill Protein [Mass/Vol] 5.9 g/dL Critically low 6.4-8.2 Th [facility] Comment on above: Performed By: #### C RP, CMP ####[facility] Hqbhvyhzgh26[address] [place], [place] [address]Dr. Lizandro Hemphill Sodium [Moles/Vol] 141 mmol/L Normal 136-145 [facility] Comment on above: Performed By: #### C RP, CMP ####[facility] Pvifokokng5[address] [place], [place] [address]Dr. Lizandro Hemphill Urea nitrogen [Mass/Vol] 9.0 mg/dL Normal 7.0-18.0 [facility] Comment on above: Performed By: #### C RP, CMP ####[facility] Wycnuaurcc4733 [place] [address]Dr. Lizandro Hemphill Urea nitrogen/Creatinin e [Mass ratio] 11.2 mg/mg Normal [facility] Comment on above: Performed By: #### C RP, CMP ####[facility] Uzphmdvzcr8964[address] [place], [place] [address]Dr. Lizandro Hemphill PROTIMEon 10-21-2021 INR Coag (PPP) [Relative time] 2.13 {INR} Normal [facility] Comment on above: Performed By: #### P T ####[facility] Iaiaxwersx9974[address] [place], [place] [address]Dr. Lizandro Hemphill INR GUIDELINES SEE BELOW Normal [facility] Comment on above: Result Comment: GUEVARA RED INR: 2.0 - 3.0 CONDITIONS NOT LISTED BELOW 2.5 - 3.5 FOR PROSTHETIC HEART VALVE REPLACEMENT 2.5 - 3.5 RECURRENT THROMBOSIS Performed By: #### P T ####[facility] Ctfnvyagql[address] [place], [place] [address]Dr. Lizandro Hemphill PT Coag (PPP) [Time] 21.9 s Critically high 9.0-11.6 [facility] Comment on above: Performed By: #### P T ####[facility] Brysabaivo[address] [place], [place] [address]Dr. Lizandro Hemphill CBC AUTO DIFFon 10-20-2021 BASO # 0.1 103/ul Normal 0.0-0.1 [facility] Comment on above: Performed By: #### C BC ####[facility] Gughvdmdpb55[address] [place], [place] [address]Dr. Lizandro Hemphill Basophils/100 WBC (Bld) 1.3 % Normal 0.2-2.0 [facility] Comment on above: Performed By: #### C BC ####[facility] Ufudanhxxn36[address] [place], [place] [address]Dr. Lizandro Hemphill EO # 0.2 103/ul Normal 0.0-0.7 [facility] Comment on above: Performed By: #### C BC ####[facility] Qxpgnoxitw4092 [place] [address]Dr. Lizandro Hemphill Eosinophils/100 WBC (Bld) 3.3 % Normal 0.9-7.0 [facility] Comment on above: Performed By: #### C BC ####[facility] Ridwupaibq7188 [place] [address]Dr. Lizandro Hemphill Erythrocyte distribution width (RBC) [Ratio] 17.1 % Critically high 11.0-15.0 [facility] Comment on above: Performed By: #### C BC ####[facility] Crrozxxcfm[address] [place], [place] [address]Dr. Lizandro Hemphill Hematocrit (Bld) [Volume fraction] 35.4 % Critically low 36.0-48.0 [facility] Comment on above: Performed By: #### C BC ####[facility] Rmkklulxsa[address] [place], [place] [address]Dr. Lizandro Hemphill Hemoglobin (Bld) [Mass/Vol] 11.1 g/dL Critically low 12.0-16.0 [facility] Comment on above: Result Comment: Repe ated to verify result Performed By: #### C BC ####[facility] Gdfqxtygnd39[address] [place], [place] [address]Dr. Lizandro Hemphill IG # 0.01 10e3/ul Normal 0.00-0.03 [facility] Comment on above: Performed By: #### C BC ####[facility] Cacqbkvlvq2431 [place] [address]Dr. Lizandro Hemphill IG % 0.2 % Normal 0.0-0.5 [facility] Comment on above: Performed By: #### C BC ####[facility] Kpssuhycig4952 [place] [address]Dr. Lizandro Hemphill LYMPH # 1.1 103/ul Critically low 1.2-3.8 [facility] Comment on above: Performed By: #### C BC ####[facility] Dqldiyukno6939 [place] [id number]. Lizandro Hemphill Lymphocytes/100 WBC (Bld) 25.1 % Normal 20.5-60.0 [facility] Comment on above: Performed By: #### C BC ####[facility] Luplmcgove8414 [place] [id number]. Lizandro Hemphill MANUAL DIFF REQ NO Normal [facility] Comment on above: Performed By: #### C BC ####[facility] Yloujjewes0735 [place] [id number]. Lizandro Hemphill MCH (RBC) [Entitic mass] 27.3 pg Normal 26.7-34.0 [facility] Comment on above: Performed By: #### C BC ####[facility] Yquxfcrpxv9989 [place] [id number]. Lizandro Hemphill MCHC (RBC) [Mass/Vol] 31.4 g/dL Normal 29.9-35.2 [facility] Comment on above: Performed By: #### C BC ####[facility] Ypkokjvsxu1293 [place] [id number]. Lizandro Hemphill MCV (RBC) [Entitic vol] 87.0 fL Normal 81.0-99.0 [facility] Comment on above: Performed By: #### C BC ####[facility] Fmteklsnby6567 [place] [id number]. Lizandro Joby MONO # 0.7 103/ul Normal 0.3-0.8 [facility] Comment on above: Performed By: #### C BC ####[facility] Eifcoyxyqw6700 [place] [id number]. Lizandro Hemphill Monocytes/100 WBC (Bld) 16.0 % Critically high 1.7-12.0 [facility] Comment on above: Performed By: #### C BC ####[facility] Tqqdcluvji1975 [place] [id number]. Lizandro Hemphill NEUT # 2.4 103/ul Normal 1.4-6.5 [facility] Comment on above: Performed By: #### C BC ####[facility] Dbcdrmfwaf1699 [place] [id number]. Lizandro Hemphill Neutrophils/100 WBC (Bld) 54.1 % Normal 43.0-75.0 [facility] Comment on above: Performed By: #### C BC ####[facility] Oneqhbtmjj5911 [place] [id number]. Lizandro Hemphill Platelet mean volume (Bld) [Entitic vol] 10.4 fL Normal 9.5-13.5 [facility] Comment on above: Performed By: #### C BC ####[facility] Gealirwqyf9177 [place] [id number]. Lizandro Hemphill PLT 202 103/ul Normal 150-450 [facility] Comment on above: Performed By: #### C BC ####[facility] Zuwqwutrhs6725 [place] [address]Dr. Lizandro Hemphill RBC 4.07 106/ul Critically low 4.20-5.40 [facility] Comment on above: Performed By: #### C BC ####[facility] Kmmkaffuoq[address] [place], [place] [address]Dr. Lizandro Hemphill WBC 4.5 103/ul Normal 4.0-11.0 [facility] Comment on above: Performed By: #### C BC ####[facility] Lijpwyqhmp[address] [place], [place] [address]Dr. Lizandro Hemphill BASO # 0.1 103/ul Normal 0.0-0.1 [facility] Comment on above: Performed By: #### C BC ####[facility] Snkphxcvju8320 [place] [address]Dr. Lizandro Hemphill Basophils/100 WBC (Bld) 1.3 % Normal 0.2-2.0 [facility] Comment on above: Performed By: #### C BC ####[facility] Lyfxmpaahu3[address] [place], [place] [address]Dr. Lizandro Hemphill EO # 0.1 103/ul Normal 0.0-0.7 [facility] Comment on above: Performed By: #### C BC ####[facility] Smecqsdill[address] [place], [place] [id number]. Lizandro Hemphill Eosinophils/100 WBC (Bld) 2.6 % Normal 0.9-7.0 [facility] Comment on above: Performed By: #### C BC ####[facility] Uitpkakinf9571 [place] [address]Dr. Lizandro Hemphill Erythrocyte distribution width (RBC) [Ratio] 17.1 % Critically high 11.0-15.0 [facility] Comment on above: Performed By: #### C BC ####[facility] Ccmvzqfyed[address] [place], [place] [address]Dr. Lizandro Hemphill Hematocrit (Bld) [Volume fraction] 27.6 % Critically low 36.0-48.0 [facility] Comment on above: Performed By: #### C BC ####[facility] Exmoarjsue64[address] [place], [place] [address]Dr. Lizandro Hemphill Hemoglobin (Bld) [Mass/Vol] 8.9 g/dL Critically low 12.0-16.0 [facility] Comment on above: Result Comment: joann carrizales notified Performed By: #### C BC ####[facility] Saarenxytg[address] [place], [place] [address]Dr. Lizandro Hemphill IG # 0.01 10e3/ul Normal 0.00-0.03 [facility] Comment on above: Performed By: #### C BC ####[facility] Ywhhtjcolt[address] [place], [place] [address]Dr. Lizandro Hemphill IG % 0.2 % Normal 0.0-0.5 [facility] Comment on above: Performed By: #### C BC ####[facility] Maskxhuunr9217[address] [place], [place] [address]Dr. Lizandro Hemphill LYMPH # 1.8 103/ul Normal 1.2-3.8 [facility] Comment on above: Performed By: #### C BC ####[facility] Ggfjqjonmk[address] [place], [place] [address]Dr. Lizandro Hemphill Lymphocytes/100 WBC (Bld) 32.2 % Normal 20.5-60.0 [facility] Comment on above: Performed By: #### C BC ####[facility] Itapxapeev5070 [place] [id number]. Lizandro Hemphill MANUAL DIFF REQ NO Normal [facility] Comment on above: Performed By: #### C BC ####[facility] Leqdqovvqp1330 [place] [id number]. Lizandro Hemphill MCH (RBC) [Entitic mass] 27.8 pg Normal 26.7-34.0 [facility] Comment on above: Performed By: #### C BC ####[facility] Lfqfxrwngg9540 [place] [id number]. Lizandro Hemphill MCHC (RBC) [Mass/Vol] 32.2 g/dL Normal 29.9-35.2 [facility] Comment on above: Performed By: #### C BC ####[facility] Wcwpkqddge[address] [place], [place] [address]Dr. Lizandro Hemphill MCV (RBC) [Entitic vol] 86.3 fL Normal 81.0-99.0 [facility] Comment on above: Performed By: #### C BC ####[facility] Nfpqcqvimz5459 [place] [id number]. Lizandro Hemphill MONO # 0.7 103/ul Normal 0.3-0.8 [facility] Comment on above: Performed By: #### C BC ####[facility] Zudjscqgla[address] [place], [place] [address]Dr. Lizandro Hemphill Monocytes/100 WBC (Bld) 13.0 % Critically high 1.7-12.0 [facility] Comment on above: Performed By: #### C BC ####[facility] Dikyebvnjn0[address] [place], [place] [id number]. Lizandro Hemphill NEUT # 2.8 103/ul Normal 1.4-6.5 [facility] Comment on above: Performed By: #### C BC ####[facility] Qoykdzbzws8[address] [place], [place] [address]Dr. Lizandro Hemphill Neutrophils/100 WBC (Bld) 50.7 % Normal 43.0-75.0 [facility] Comment on above: Performed By: #### C BC ####[facility] Pljiiyakbz4930 [place] [id number]. Lizandro Hemphill Platelet mean volume (Bld) [Entitic vol] 11.0 fL Normal 9.5-13.5 [facility] Comment on above: Performed By: #### C BC ####[facility] Sutacwsxcg5747 [place] [id number]. Lizandro Hemphill PLT 241 103/ul Normal 150-450 [facility] Comment on above: Performed By: #### C BC ####[facility] Eeugrfonjf2149 [place] [id number]. Lizandro Hemphill RBC 3.20 106/ul Critically low 4.20-5.40 [facility] Comment on above: Performed By: #### C BC ####[facility] Lgrbxlzymo1145 [place] [id number]. Lizandro Hemphill WBC 5.5 103/ul Normal 4.0-11.0 [facility] Comment on above: Performed By: #### C BC ####[facility] Wpbfqaxdqq6603 [place] [address]Dr. Shanikaannie Hemphill CRPon 10-20-2021 CRP [Mass/Vol] mg/L Normal <=1.0 [facility] Comment on above: Performed By: #### C RP, CMP ####[facility] Mgqcclkwoq7520 [place] [address]Dr. Lizandro Hemphill PROF 14(COMP METB)on 022 Albumin [Mass/Vol] 2.5 g/dL Critically low 3.4-5.0 [facility] Comment on above: Performed By: #### C RP, CMP ####[facility] Lkizkxicon2477 [place] [address]Dr. Lizandro Hemphill Albumin/Globulin [Mass ratio] 0.9 {ratio} Normal [facility] Comment on above: Performed By: #### C RP, CMP ####[facility] Njzortnvrp4104 [place] [address]Dr. Lizandro Hemphill ALP [Catalytic activity/Vol] 85 U/L Normal 46-116 [facility] Comment on above: Performed By: #### C RP, CMP ####[facility] Vtkhonoqnm0333 [place] [id number]. Lizandro Hemphill ALT [Catalytic activity/Vol] 26 U/L Normal 14-59 [facility] Comment on above: Performed By: #### C RP, CMP ####[facility] Nexrbmlihg8147 [place] [id number]. Lizandro Hemphill Anion gap [Moles/Vol] 10.8 mmol/L Normal [facility] Comment on above: Performed By: #### C RP, CMP ####[facility] Kujxcpcsxc6892 [place] [id number]. Lizandro Hemphill AST [Catalytic activity/Vol] 39 U/L Critically high 15-37 [facility] Comment on above: Performed By: #### C RP, CMP ####[facility] Rpuavjxxhj[address] [place], [place] [id number]. Lizandro Hemphill Bilirubin [Mass/Vol] 0.2 mg/dL Normal 0.2-1.0 [facility] Comment on above: Performed By: #### C RP, CMP ####[facility] [address]nyzvazqx[address] [place], [place] [id number]. Lizandro Hemphill Calcium [Mass/Vol] 7.6 mg/dL Critically low 8.5-10.1 [facility] Comment on above: Performed By: #### C RP, CMP ####[facility] Ahygwhdcvu6459 [place] [id number]. Lizandro Hemphill Chloride [Moles/Vol] 111 mmol/L Critically high 98-107 [facility] Comment on above: Performed By: #### C RP, CMP ####[facility] Roaglxmjrs9754 [place] [id number]. Lizandro Hemphill CO2 [Moles/Vol] 24.6 mmol/L Normal 21.0-32.0 [facility] Comment on above: Performed By: #### C RP, CMP ####[facility] Pdmeslxkvs9401 [place] [id number]. Lizandro Hemphill Creatinine [Mass/Vol] 0.72 mg/dL Normal 0.55-1.02 [facility] Comment on above: Performed By: #### C RP, CMP ####[facility] Ynrlagzwpf1096 [place] [id number]. Lizandro Hemphill EGFR-AF ARMENIAN >60 Normal >=60 [facility] Comment on above: Performed By: #### C RP, CMP ####[facility] Wesqejjeut6387 [place] [id number]. Lizandro Hemphill EGFR-NON AF ARMENIAN >60 Normal >=60 [facility] Comment on above: Performed By: #### C RP, CMP ####[facility] Leegggjdnp7908 [place] [id number]. Lizandro Hemphill Globulin (S) [Mass/Vol] 2.9 g/dL Normal [facility] Comment on above: Performed By: #### C RP, CMP ####[facility] Dwccwuxicb7467 [place] [address]Dr. Lizandro Hemphill Glucose [Mass/Vol] 99 mg/dL Normal 74-106 [facility] Comment on above: Performed By: #### C RP, CMP ####[facility] Ulnkhyndbm6914 [place] [id number]. Lizandro Hemphill Potassium [Moles/Vol] 3.4 mmol/L Critically low 3.5-5.1 [facility] Comment on above: Performed By: #### C RP, CMP ####[facility] Dhxhgyscgb3678 [place] [id number]. Lizandro Hemphill Protein [Mass/Vol] 5.4 g/dL Critically low 6.4-8.2 [facility] Comment on above: Performed By: #### C RP, CMP ####[facility] Bqbgzbecby3414 [place] [address]Dr. Lizandro Hemphill Sodium [Moles/Vol] 143 mmol/L Normal 136-145 [facility] Comment on above: Performed By: #### C RP, CMP ####[facility] Jjkzafqpve2347 [place] [id number]. Lizandro Hemphill Urea nitrogen [Mass/Vol] 9.0 mg/dL Normal 7.0-18.0 [facility] Comment on above: Performed By: #### C RP, CMP ####[facility] Uutezzpgpj89[address] [place], [place] [address]DrCiro Hemphill Urea nitrogen/Creatinin e [Mass ratio] 12.5 mg/mg Normal [facility] Comment on above: Performed By: #### C RP, CMP ####[facility] Moybvnkrad2664[address] [place], [place] [address]DrCiro Hemphill PROTIMEon 10-20-2021 INR Coag (PPP) [Relative time] 1.94 {INR} Normal [facility] Comment on above: Performed By: #### P T ####[facility] Vhltbjrdyw[address] [place], [place] [address]DrCiro Hemphill INR GUIDELINES SEE BELOW Normal [facility] Comment on above: Result Comment: GUEVARA RED INR: 2.0 - 3.0 CONDITIONS NOT LISTED BELOW 2.5 - 3.5 FOR PROSTHETIC HEART VALVE REPLACEMENT 2.5 - 3.5 RECURRENT THROMBOSIS Performed By: #### P T ####[facility] Vuuxfqsjjd996[address] [place], [place] [address]DriCro Hemphill PT Coag (PPP) [Time] 20.1 s Critically high 9.0-11.6 [facility] Comment on above: Performed By: #### P T ####[facility] Ollyzvfmsb4[address] [place], [place] [address]DrCiro Hemphill US NEEL DOP LEG BILon 022 US NEEL DOP LEG CROW Normal The [facility] CBC AUTO DIFFon 10-19-2021 BASO # 0.1 103/ul Normal 0.0-0.1 [facility] Comment on above: Performed By: #### C BC ####[facility] Tqndnszxro187[address] [place], [place] [address]DrCiro Hemphill Basophils/100 WBC (Bld) 1.4 % Normal 0.2-2.0 [facility] Comment on above: Performed By: #### C BC ####[facility] Qjylojujvc3892[address] [place], [place] [address]DrCiro Hemphill EO # 0.2 103/ul Normal 0.0-0.7 [facility] Comment on above: Performed By: #### C BC ####[facility] Oezilcgwwp4522[address] [place], [place] [address]Dr. Lizandro Joby Eosinophils/100 WBC (Bld) 3.3 % Normal 0.9-7.0 [facility] Comment on above: Performed By: #### C BC ####[facility] Kkrczkthwa[address] [place], [place] [address]Dr. Lizandro Hemphill Erythrocyte distribution width (RBC) [Ratio] 17.0 % Critically high 11.0-15.0 [facility] Comment on above: Performed By: #### C BC ####[facility] Ewqvvshehv674[address] [place], [place] [address]Dr. Lizandro Hemphill Hematocrit (Bld) [Volume fraction] 38.2 % Normal 36.0-48.0 [facility] Comment on above: Performed By: #### C BC ####[facility] Dvekadcriy4633[address] [place], [place] [address]Dr. Lizandro Hemphill Hemoglobin (Bld) [Mass/Vol] 12.2 g/dL Normal 12.0-16.0 [facility] Comment on above: Performed By: #### C BC ####[facility] Ptfjwfhsdk9[address] [place], [place] [address]Dr. Lizandro Hemphill IG # 0.01 10e3/ul Normal 0.00-0.03 [facility] Comment on above: Performed By: #### C BC ####[facility] Uwvgpppuzt2506[address] [place], [place] [address]Dr. Lizandro Hemphill IG % 0.2 % Normal 0.0-0.5 [facility] Comment on above: Performed By: #### C BC ####[facility] Taqfneeyhg470[address] [place], [place] [address]DrCiro Hemphill LYMPH # 1.7 103/ul Normal 1.2-3.8 [facility] Comment on above: Performed By: #### C BC ####[facility] Dpcdgmqaja3978[address] [place], [place] [address]Dr. Lizandro Hemphill Lymphocytes/100 WBC (Bld) 32.2 % Normal 20.5-60.0 [facility] Comment on above: Performed By: #### C BC ####[facility] Kcytghgjba4984 [place] [address]DrCiro Hemphill MANUAL DIFF REQ NO Normal [facility] Comment on above: Performed By: #### C BC ####[facility] Gpgfnsajtx2601 [place] [address]DrCiro Hemphill MCH (RBC) [Entitic mass] 27.4 pg Normal 26.7-34.0 [facility] Comment on above: Performed By: #### C BC ####[facility] Pbcjkwqnnx0546 [place] [address]DrCiro Hemphill MCHC (RBC) [Mass/Vol] 31.9 g/dL Normal 29.9-35.2 [facility] Comment on above: Performed By: #### C BC ####[facility] Slwtcltbro5644[address] [place], [place] [address]DrCiro Hemphill MCV (RBC) [Entitic vol] 85.7 fL Normal 81.0-99.0 [facility] Comment on above: Performed By: #### C BC ####[facility] Amgquixgxq4072[address] [place], [place] [address]DrCiro Hemphill MONO # 0.6 103/ul Normal 0.3-0.8 [facility] Comment on above: Performed By: #### C BC ####[facility] Peenfaneqn204[address] [place], [place] [address]DrCiro Hemphill Monocytes/100 WBC (Bld) 12.5 % Critically high 1.7-12.0 [facility] Comment on above: Performed By: #### C BC ####[facility] Mbkumaoqsw9[address] [place], [place] [address]DrCiro Hemphill NEUT # 2.6 103/ul Normal 1.4-6.5 [facility] Comment on above: Performed By: #### C BC ####[facility] Npdqjigarn7192[address] [place], [place] [address]DrCiro Hemphill Neutrophils/100 WBC (Bld) 50.4 % Normal 43.0-75.0 [facility] Comment on above: Performed By: #### C BC ####[facility] Ugksrimele7141 [place] [address]Dr. Lizandro Hemphill Platelet mean volume (Bld) [Entitic vol] 10.4 fL Normal 9.5-13.5 [facility] Comment on above: Performed By: #### C BC ####[facility] Vtphozbjgr6609 [place] [address]Dr. Lizandro Hemphill PLT 238 103/ul Normal 150-450 [facility] Comment on above: Performed By: #### C BC ####[facility] Ivxmivelar2494[address] [place], [place] [address]Dr. Lizandro Hemphill RBC 4.46 106/ul Normal 4.20-5.40 [facility] Comment on above: Performed By: #### C BC ####[facility] Jrbnkmvwut1963[address] [place], [place] [address]Dr. Lizandro Hemphill WBC 5.1 103/ul Normal 4.0-11.0 [facility] Comment on above: Performed By: #### C BC ####[facility] Anhaurselx2906[address] [place], [place] [address]DrCiro Lizandro Hemphill CRPon 10-19-2021 CRP [Mass/Vol] mg/L Normal <=1.0 [facility] Comment on above: Performed By: #### C MP, CRP ####[facility] Uyciitdpwu8738[address] [place], [place] [address]Dr. Lizandro Hemphill H PYLORI ANTIBODY IGGon 09-24 H. PYLORI IGG ABS 0.24 Index Value Normal 0.00-0.79 [facility] Comment on above: Result Comment: Nega tive <0.80 Equivocal 0.80 - 0.89 Positive >0.89 Performed By: #### H PYLLC ####[facility] Rgalbxuuti8907 [place] [address]DrCiro Lizandro Hemphill PROF 14(COMP METB)on 022 Albumin [Mass/Vol] 2.9 g/dL Critically low 3.4-5.0 [facility] Comment on above: Performed By: #### C MP, CRP ####[facility] Lxhfxleffb7051 [place] [address]Dr. Shanikaannie Joby Albumin/Globulin [Mass ratio] 0.9 {ratio} Normal [facility] Comment on above: Performed By: #### C MP, CRP ####[facility] Brssjyrqxf6359 [place] [address]Dr. Lizandro Hemphill ALP [Catalytic activity/Vol] 100 U/L Normal 46-116 [facility] Comment on above: Performed By: #### C MP, CRP ####[facility] Msgskeelvr5555 [place] [address]Dr. Lizandro Hemphill ALT [Catalytic activity/Vol] 24 U/L Normal 14-59 [facility] Comment on above: Performed By: #### C MP, CRP ####[facility] Xepalnxuqs0899[address] [place], [place] [address]Dr. Lizandro Hemphill Anion gap [Moles/Vol] 11.6 mmol/L Normal [facility] Comment on above: Performed By: #### C MP, CRP ####[facility] Pyomwnrkni6227[address] [place], [place] [address]Dr. Lizandro Hemphill AST [Catalytic activity/Vol] 29 U/L Normal 15-37 [facility] Comment on above: Performed By: #### C MP, CRP ####[facility] Xwpvlrvmzj[address] [place], [place] [address]Dr. Lizandro Hemphill Bilirubin [Mass/Vol] 0.3 mg/dL Normal 0.2-1.0 [facility] Comment on above: Performed By: #### C MP, CRP ####[facility] Csjdgnudtj9340 [place] [address]Dr. Lizandro Hemphill Calcium [Mass/Vol] 8.0 mg/dL Critically low 8.5-10.1 Th [facility] Comment on above: Performed By: #### C MP, CRP ####[facility] Xxeeuevekp997[address] [place], [place] [address]Dr. Lizandro Hemphill Chloride [Moles/Vol] 107 mmol/L Normal 98-107 [facility] Comment on above: Performed By: #### C MP, CRP ####[facility] Eyhgklweyd4215 [place] [address]Dr. Lizandro Hemphill CO2 [Moles/Vol] 22.9 mmol/L Normal 21.0-32.0 [facility] Comment on above: Performed By: #### C MP, CRP ####[facility] Zmfqcnmouo8464 [place] [address]Dr. Lizandro Hemphill Creatinine [Mass/Vol] 0.65 mg/dL Normal 0.55-1.02 [facility] Comment on above: Performed By: #### C MP, CRP ####[facility] Yjexzjaevj8339 [place] [address]Dr. Lizandro Hemphill EGFR-AF ARMENIAN >60 Normal >=60 [facility] Comment on above: Performed By: #### C MP, CRP ####[facility] Cyusngdmua8352 [place] [address]Dr. Lizandro Hemphill EGFR-NON AF ARMENIAN >60 Normal >=60 [facility] Comment on above: Performed By: #### C MP, CRP ####[facility] Zehjlvjunv7197 [place] [address]Dr. Lizandro Hemphill Globulin (S) [Mass/Vol] 3.4 g/dL Normal [facility] Comment on above: Performed By: #### C MP, CRP ####[facility] Ujjhpsrpgp8981 [place] [address]Dr. Lizandro Hemphill Glucose [Mass/Vol] 93 mg/dL Normal 74-106 [facility] Comment on above: Performed By: #### C MP, CRP ####[facility] Tgnpgwhszp8378 [place] [address]Dr. Lizandro Hemphill Potassium [Moles/Vol] 3.5 mmol/L Normal 3.5-5.1 [facility] Comment on above: Performed By: #### C MP, CRP ####[facility] Ehnthvcnji5708 [place] [address]Dr. Lizandro Hemphill Protein [Mass/Vol] 6.3 g/dL Critically low 6.4-8.2 Th e [facility] Comment on above: Performed By: #### C MP, CRP ####[facility] Bwoojtzzuv5383 [place] [address]Dr. Lizandro Hemphill Sodium [Moles/Vol] 138 mmol/L Normal 136-145 [facility] Comment on above: Performed By: #### C MP, CRP ####[facility] Vdcqxvghnn4323 [place] [address]Dr. Lizandro Hemphill Urea nitrogen [Mass/Vol] 10.0 mg/dL Normal 7.0-18.0 [facility] Comment on above: Performed By: #### C MP, CRP ####[facility] Hzztxxugfk24[address] [place], [place] [address]Dr. Lizandro Hemphill Urea nitrogen/Creatinin e [Mass ratio] 15.4 mg/mg Normal [facility] Comment on above: Performed By: #### C MP, CRP ####[facility] Mfvppbplbz98[address] [place], [place] [address]Dr. Lizandro Hemphill PROTIMEon 10-19-2021 INR Coag (PPP) [Relative time] 2.03 {INR} Normal [facility] Comment on above: Performed By: #### P T ####[facility] Kiulccvbtu3[address] [place], [place] [address]Dr. Lizandro Hemphill INR GUIDELINES SEE BELOW Normal [facility] Comment on above: Result Comment: GUEVARA RED INR: 2.0 - 3.0 CONDITIONS NOT LISTED BELOW 2.5 - 3.5 FOR PROSTHETIC HEART VALVE REPLACEMENT 2.5 - 3.5 RECURRENT THROMBOSIS Performed By: #### P T ####[facility] Ktuhvrwhkt[address] [place], [place] [address]Dr. Lizandro Hemphill PT Coag (PPP) [Time] 20.9 s Critically high 9.0-11.6 [facility] Comment on above: Performed By: #### P T ####[facility] Waoizftiei6524[address] [place], [place] [address]Dr. Lizandro Hemphill AMMONIAon 10-18-2021 Ammonia (P) [Moles/Vol] 21 umol/L Normal 11-32 [facility] Comment on above: Performed By: #### A MM ####[facility] Mxutjlkvmb12[address] [place], [place] [address]Dr. Lizandro Hemphill AMYLASEon 10-18-2021 Amylase [Catalytic activity/Vol] 86 U/L Normal 25-115 [facility] Comment on above: Performed By: #### A MY, CMP, LIPA, BNP, CRP ####[facility] Ostmdgdtrp020[address] [place], [place] [address]Dr. Lizandro Hemphill BNPon 10-18-2021 Natriuretic peptide B (Bld) [Mass/Vol] 157.0 pg/mL Normal <=900.0 [facility] Comment on above: Performed By: #### A MY, CMP, LIPA, BNP, CRP ####[facility] Wvunxbkmsx95[address] [place], [place] [address]Dr. Lizandro Hemphill CBC AUTO DIFFon 10-18-2021 BASO # 0.1 103/ul Normal 0.0-0.1 [facility] Comment on above: Performed By: #### C BC ####[facility] Cceeavhpey[address] [place], [place] [address]Dr. Lizandro Hemphill Basophils/100 WBC (Bld) 1.0 % Normal 0.2-2.0 [facility] Comment on above: Performed By: #### C BC ####[facility] Pbcsiucxci4[address] [place], [place] [address]Dr. Lizandro Hemphill EO # 0.1 103/ul Normal 0.0-0.7 [facility] Comment on above: Performed By: #### C BC ####[facility] [address] [place], [place] [address]Dr. Lizandro Hemphill Eosinophils/100 WBC (Bld) 1.0 % Normal 0.9-7.0 [facility] Comment on above: Performed By: #### C BC ####[facility] Ulifxpdnii89[address] [place], [place] [address]Dr. Lizandro Hemphill Erythrocyte distribution width (RBC) [Ratio] 16.8 % Critically high 11.0-15.0 [facility] Comment on above: Performed By: #### C BC ####[facility] [address]vfd[address]iuzi[address] [place] [address]Dr. Lizandro Hemphill Hematocrit (Bld) [Volume fraction] 42.3 % Normal 36.0-48.0 [facility] Comment on above: Performed By: #### C BC ####[facility] Rjehwzovjb98[address] [place] [address]Dr. Lizandro Hemphill Hemoglobin (Bld) [Mass/Vol] 13.4 g/dL Normal 12.0-16.0 [facility] Comment on above: Performed By: #### C BC ####[facility] Pwugfclzam[address] [place], [place] [address]Dr. Lizandro Hemphill IG # 0.02 10e3/ul Normal 0.00-0.03 [facility] Comment on above: Performed By: #### C BC ####[facility] Cvncgvhnpq[address] [place], [place] [address]Dr. Shanikaannie Hemphill IG % 0.3 % Normal 0.0-0.5 [facility] Comment on above: Performed By: #### C BC ####[facility] Zdrifoqtpi14[address] [place], [place] [address]Dr. Lizandro Joby LYMPH # 1.5 103/ul Normal 1.2-3.8 [facility] Comment on above: Performed By: #### C BC ####[facility] Vazjokofej[address] [place], [place] [address]Dr. Lizandro Joby Lymphocytes/100 WBC (Bld) 19.0 % Critically low 20.5-60.0 [facility] Comment on above: Performed By: #### C BC ####[facility] Ohdwiumnfl[address] [place], [place] [address]Dr. Shanikaannie Hemphill MANUAL DIFF REQ NO Normal [facility] Comment on above: Performed By: #### C BC ####[facility] Wkajmoszaf67[address] [place], [place] [address]Dr. Lizandro Joby MCH (RBC) [Entitic mass] 27.2 pg Normal 26.7-34.0 [facility] Comment on above: Performed By: #### C BC ####[facility] Nbwfmtcvib5337 [place] [id number]. Lizandro Joby MCHC (RBC) [Mass/Vol] 31.7 g/dL Normal 29.9-35.2 [facility] Comment on above: Performed By: #### C BC ####[facility] Skuooscbis8935 [place] [id number]. Lizandro Hemphill MCV (RBC) [Entitic vol] 85.8 fL Normal 81.0-99.0 [facility] Comment on above: Performed By: #### C BC ####[facility] Efdgwnfofm8[address] [place], [place] [address]Dr. Lizandro Hemphill MONO # 0.8 103/ul Normal 0.3-0.8 [facility] Comment on above: Performed By: #### C BC ####[facility] Dkwgcdpsuh88[address] [place], [place] [address]Dr. Lizandro Hemphill Monocytes/100 WBC (Bld) 9.9 % Normal 1.7-12.0 [facility] Comment on above: Performed By: #### C BC ####[facility] Zspcxplawy67[address] [place], [place] [address]Dr. Lizandro Hemphill NEUT # 5.4 103/ul Normal 1.4-6.5 [facility] Comment on above: Performed By: #### C BC ####[facility] Qyhnhpnpzv[address] [place], [place] [address]Dr. Lizandro Hemphill Neutrophils/100 WBC (Bld) 68.8 % Normal 43.0-75.0 [facility] Comment on above: Performed By: #### C BC ####[facility] Hqhetratye[address] [place], [place] [address]Dr. Lizandro Hemphill Platelet mean volume (Bld) [Entitic vol] 10.5 fL Normal 9.5-13.5 [facility] Comment on above: Performed By: #### C BC ####[facility] Kxljoilgci0[address] [place], [place] [address]Dr. Lizandro Hemphill PLT 254 103/ul Normal 150-450 [facility] Comment on above: Performed By: #### C BC ####[facility] Nizmmbjqkr[address] [place], [place] [address]Pe. Lizandro Hemphill RBC 4.93 106/ul Normal 4.20-5.40 [facility] Comment on above: Performed By: #### C BC ####[facility] Zcgjxbwsuh8844 [place], [place] [address]Lx. Lizandro Hemphill WBC 7.8 103/ul Normal 4.0-11.0 [facility] Comment on above: Performed By: #### C BC ####[facility] Rrdyknnvjo3713 [place] [id number]. Lizandro Hemphill CRPon 10-18-2021 CRP [Mass/Vol] mg/L Normal <=1.0 [facility] Comment on above: Performed By: #### A MY, CMP, LIPA, BNP, CRP ####[facility] Lumdhakhto[address] [place] [id number]. Lizandro Hemphill CT ABD/PELVIS WO CONon 10-18 CT ABD/PELVIS WO CON Normal [facility] CULTURE BLOODon 10-18-2021 Microscopic examination of blood, culture Culture Observations: NO GROWTH AT 5 DAYS. Normal [facility] Comment on above: Performed By: #### B LDCX2 ####[facility] Mlphnrnljv6582 [place] [id number]. Lizandro Hemphill Microscopic examination of blood, culture Culture Observations: NO GROWTH AT 5 DAYS. Normal [facility] Comment on above: Performed By: #### B LDCX1 ####[facility] Qdaimrykwg3605 [place] [id number]. Lizandro Hemphill Covid-19 PCR (CVDTBH)on 09-24 SARS-CoV-2 (COVID-19) RNA VERITO+probe Ql (Unsp spec) Not detected Normal NOT DETECTED [facility] Comment on above: Result Comment: When [...] for this test is supported by the Payroll Tax Analyst of Health and Human Service's declaration that [...] be used). Performed By: #### C VDTBH ####[facility] Youctovgho[address] [place], [place] [address]Dr. Lizandro Hemphill GI PANEL (PCR)on 10-18-2021 Adenovirus F 40/41 Not detected Normal NOT DETECTED [facility] Comment on above: Performed By: #### G IPANEL ####[facility] Kehttcuhri[address] [place], [place] [address]Dr. Lizandro Hemphill Astrovirus Not detected Normal NOT DETECTED [facility] Comment on above: Performed By: #### G IPANEL ####[facility] Dvczvkaqlu85[address] [place], [place] [address]Dr. Lizandro Hemphill C. Diff toxin A/B Not detected Normal NOT DETECTED [facility] Comment on above: Performed By: #### G IPANEL ####[facility] Mjwltbiavf[address] [place], [place] [address]Dr. Lizandro Hemphill Campylobacter Not detected Normal NOT DETECTED [facility] Comment on above: Performed By: #### G IPANEL ####[facility] Wdqyuuleeg6443[address] [place], [place] [address]Dr. Lizandro Hemphill Cryptosporidium Not detected Normal NOT DETECTED [facility] Comment on above: Performed By: #### G IPANEL ####[facility] Xaxnfdbnlf[address] [place], [place] [address]Dr. Lizandro Hemphill Cyclos. Cayetanensis Not detected Normal NOT DETECTED [facility] Comment on above: Performed By: #### G IPANEL ####[facility] Ptizixmilr[address] [place], [place] [address]Dr. Lizandro Hemphill E. Coli O157 Not Applicable Normal Not Applicable [facility] Comment on above: Performed By: #### G IPANEL ####[facility] Axwtltkonw[address]39[address] [place], [place] [address]Dr. Lizandro Hemphill E. histolytica Not detected Normal NOT DETECTED [facility] Comment on above: Performed By: #### G IPANEL ####[facility] Ahhjfllpta027[address] [place], [place] [address]Dr. Shanikaannie Hemphill EAEC Not detected Normal NOT DETECTED [facility] Comment on above: Performed By: #### G IPANEL ####[facility] Amtyttfsuf9013[address] [place], [place] [address]Dr. Lizandro Hemphill EIEC Not detected Normal NOT DETECTED [facility] Comment on above: Performed By: #### G IPANEL ####[facility] Cfcvxfqgtf24[address] [place], [place] [address]Dr. [facility] EPEC Not detected Normal NOT DETECTED [facility] Comment on above: Performed By: #### G IPANEL ####[facility] Vtdmtdgzcr[address] [place], [place] [address]Dr. [facility] ETEC Not detected Normal NOT DETECTED [facility] Comment on above: Performed By: #### G IPANEL ####[facility] Mnpcgknikq9[address] [place], [place] [address]Dr. Shanikaannie Hemphill G. Lamblia Not detected Normal NOT DETECTED [facility] Comment on above: Performed By: #### G IPANEL ####[facility] Jqbcagtcki8857[address] [place], [place] [address]Dr. Lizandro Hemphill GIPANEL CONTROLS PASSED Normal [facility] Comment on above: Performed By: #### G IPANEL ####[facility] Bhdjuopnqv0002[address] [place], [place] [address]Dr. Lizandro LEHMANNL CARIE HEADER GI PANEL BACTERIA Normal [facility] Comment on above: Performed By: #### G IPANEL ####[facility] Cvfcuchppn1118[address] [place], [place] [address]Dr. Lizandro LEHMANNLHD ECOLI GI PANEL DIARRHEAGEN IC E.COLI / SHIGELLA Normal [facility] Comment on above: Performed By: #### G IPANEL ####[facility] Jszolxecap[address] [place], [place] [address]Dr. Lizandro Hemphill GIPNLHD INFO SEE BELOW Normal [facility] Comment on above: Result Comment: EAEC - Enteroaggregative E. Coli EPEC- Enteropathogenic E. Coli ETEC- Enterotoxigenic E. Coli lt/st STEC- Shigella-like toxin-producing E. Coli stx1/stx2 EIEC- Shigella/Enteroinvasive E. Coli Performed By: #### G IPANEL ####[facility] Ciktqcnfgq0913[address] [place], [place] [address]Dr. Lizandro Hemphill GIPNLHD PARASITES GI PANEL PARASITES Normal [facility] Comment on above: Performed By: #### G IPANEL ####[facility] Orhxulbdfj07[address] [place], [place] [address]Dr. Lizandro Hemphill GIPFRANCESHD VIRUS GI PANEL VIRUSES Normal [facility] Comment on above: Performed By: #### G IPANEL ####[facility] Hrdgqdlcfh8384[address] [place], [place] [address]Dr. Lizandro Hemphill Norovirus GI/GII Not detected Normal NOT DETECTED [facility] Comment on above: Performed By: #### G IPANEL ####[facility] Qniuqddnph48[address] [place], [place] [address]Dr. Lizandro Hemphill P. Shigelloides Not detected Normal NOT DETECTED [facility] Comment on above: Performed By: #### G IPANEL ####[facility] Qhrgbbegmk7876[address] [place], [place] [address]Dr. Lizandro Hemphill Rotavirus A Not detected Normal NOT DETECTED [facility] Comment on above: Performed By: #### G IPANEL ####[facility] Nbgqhcnyms6[address] [place], [place] [address]Dr. Lizandro Hemphill Salmonella Not detected Normal NOT DETECTED [facility] Comment on above: Performed By: #### G IPANEL ####[facility] Syfmnwdhpt033[address] [place], [place] [address]Dr. Lizandro Hemphill Sapovirus Not detected Normal NOT DETECTED [facility] Comment on above: Performed By: #### G IPANEL ####[facility] Xmauyzstfo0[address] [place], [place] [address]Dr. Lizandro Hemphill STEC Not detected Normal NOT DETECTED [facility] Comment on above: Performed By: #### G IPANEL ####[facility] Wplgjzvddf[address] [place], [place] [address]Dr. Lizandro Hemphill Vibrio Not detected Normal NOT DETECTED [facility] Comment on above: Performed By: #### G IPANEL ####[facility] Werluehkcd[address] [place], [place] [address]Dr. Lizandro Hemphill Vibrio Cholera Not detected Normal NOT DETECTED [facility] Comment on above: Performed By: #### G IPANEL ####[facility] Xxklivzehb27[address] [place], [place] [address]Dr. Lizandro Hemphill Y. Enterocolitica Not detected Normal NOT DETECTED [facility] Comment on above: Performed By: #### G IPANEL ####[facility] Edzdqwdcse87[address] [place], [place] [address]Dr. Lizandro Hemphill LACTATE/LACTIC ACIDon 2021 Lactate [Moles/Vol] 1.1 mmol/L Normal 0.4-1.9 [facility] Comment on above: Performed By: #### L ACT ####[facility] Icoxbmkitu69[address] [place], [place] [address]Dr. Lizandro Hemphill LIPASEon 10-18-2021 Lipase [Catalytic activity/Vol] 151.0 U/L Normal 73.0-393.0 [facility] Comment on above: Performed By: #### A MY, CMP, LIPA, BNP, CRP ####[facility] Aovsvehefq[address] [place], [place] [address]Dr. Lizandro Hemphill PROF 14(COMP METB)on 022 Albumin [Mass/Vol] 3.7 g/dL Normal 3.4-5.0 [facility] Comment on above: Performed By: #### A MY, CMP, LIPA, BNP, CRP ####[facility] Jsaozlgami9914[address] [place], [place] [address]Dr. Lizandro Hemphill Albumin/Globulin [Mass ratio] 0.9 {ratio} Normal [facility] Comment on above: Performed By: #### A MY, CMP, LIPA, BNP, CRP ####[facility] [address]xrfw[address] [place] [address]Dr. Lizandro Hemphill ALP [Catalytic activity/Vol] 114 U/L Normal 46-116 [facility] Comment on above: Performed By: #### A MY, CMP, LIPA, BNP, CRP ####[facility] Qydtnjwxrz4236 [place] [address]Dr. Lizandro Hemphill ALT [Catalytic activity/Vol] 26 U/L Normal 14-59 [facility] Comment on above: Performed By: #### A MY, CMP, LIPA, BNP, CRP ####[facility] Ntkgbipqki[address] [place] [address]Dr. Lizandro Hemphill Anion gap [Moles/Vol] 13.7 mmol/L Normal [facility] Comment on above: Performed By: #### A MY, CMP, LIPA, BNP, CRP ####[facility] Iihvmlzisf14[address] [place], [place] [address]Dr. Lizandro Hemphill AST [Catalytic activity/Vol] 30 U/L Normal 15-37 [facility] Comment on above: Performed By: #### A MY, CMP, LIPA, BNP, CRP ####[facility] Oiaoifjfrt15[address] [place] [address]Dr. Lizandro Hemphill Bilirubin [Mass/Vol] 0.3 mg/dL Normal 0.2-1.0 [facility] Comment on above: Performed By: #### A MY, CMP, LIPA, BNP, CRP ####[facility] Obszmpcsit8[address] [place] [address]Dr. Lizandro Hemphill Calcium [Mass/Vol] 9.1 mg/dL Normal 8.5-10.1 [facility] Comment on above: Performed By: #### A MY, CMP, LIPA, BNP, CRP ####[facility] Sevbtmohrv360[address] [place] [address]Dr. Lizandro Hemphill Chloride [Moles/Vol] 102 mmol/L Normal 98-107 [facility] Comment on above: Performed By: #### A MY, CMP, LIPA, BNP, CRP ####[facility] Wkpiawlkus[address] [place] [address]Dr. Lizandro Hemphill CO2 [Moles/Vol] 26.9 mmol/L Normal 21.0-32.0 [facility] Comment on above: Performed By: #### A MY, CMP, LIPA, BNP, CRP ####[facility] Lcisoynyna39[address] [place] [address]Dr. Lizandro Hemphill Creatinine [Mass/Vol] 0.79 mg/dL Normal 0.55-1.02 [facility] Comment on above: Performed By: #### A MY, CMP, LIPA, BNP, CRP ####[facility] Txkjpxnkom[address] [place] [address]Dr. Lizandro Hemphlil EGFR-AF ARMENIAN >60 Normal >=60 [facility] Comment on above: Performed By: #### A MY, CMP, LIPA, BNP, CRP ####[facility] Ttpejyeixm7[address] [place] [address]Dr. Lizandro Hemphill EGFR-NON AF ARMENIAN >60 Normal >=60 [facility] Comment on above: Performed By: #### A MY, CMP, LIPA, BNP, CRP ####[facility] Hlyxdozbxd0696 [place] [address]Dr. Lizandro Hemphill Globulin (S) [Mass/Vol] 4.0 g/dL Normal [facility] Comment on above: Performed By: #### A MY, CMP, LIPA, BNP, CRP ####[facility] Knvadxdsbh45[address] [place] [address]Dr. Lizandro Hemphill Glucose [Mass/Vol] 96 mg/dL Normal 74-106 [facility] Comment on above: Performed By: #### A MY, CMP, LIPA, BNP, CRP ####[facility] Pgetmtfogy6[address] [place] [address]Dr. Lizandro Hemphill Potassium [Moles/Vol] 3.6 mmol/L Normal 3.5-5.1 [facility] Comment on above: Performed By: #### A MY, CMP, LIPA, BNP, CRP ####[facility] Jhywuvcyao475[address] [place] [address]Dr. Lizandro Hemphill Protein [Mass/Vol] 7.7 g/dL Normal 6.4-8.2 [facility] Comment on above: Performed By: #### A MY, CMP, LIPA, BNP, CRP ####[facility] Cfmrbmpges75[address] [place] [address]Dr. Lizandro Hemphill Sodium [Moles/Vol] 139 mmol/L Normal 136-145 [facility] Comment on above: Performed By: #### A MY, CMP, LIPA, BNP, CRP ####[facility] Fvzaosboze[address] [place], [place] [address]Dr. Lizandro Hemphill Urea nitrogen [Mass/Vol] 15.0 mg/dL Normal 7.0-18.0 [facility] Comment on above: Performed By: #### A MY, CMP, LIPA, BNP, CRP ####[facility] Ynzzhmhicb0[address] [place], [place] [address]Dr. Lizandro Hemphill Urea nitrogen/Creatinin e [Mass ratio] 19.0 mg/mg Normal [facility] Comment on above: Performed By: #### A MY, CMP, LIPA, BNP, CRP ####[facility] Wehytwtrzy9[address] [place], [place] [address]Dr. Lizandro Hemphill PROTIMEon 10-18-2021 INR Coag (PPP) [Relative time] 1.66 {INR} Normal [facility] Comment on above: Performed By: #### P T, PTT ####[facility] Ufxblritcm55[address] [place], [place] [address]Dr. Lizandro Hemphill INR GUIDELINES SEE BELOW Normal [facility] Comment on above: Result Comment: GUEVARA RED INR: 2.0 - 3.0 CONDITIONS NOT LISTED BELOW 2.5 - 3.5 FOR PROSTHETIC HEART VALVE REPLACEMENT 2.5 - 3.5 RECURRENT THROMBOSIS Performed By: #### P T, PTT ####[facility] Jrpsqvghjr6306[address] [place], [place] [address]Dr. Lizandro Hemphill PT Coag (PPP) [Time] 17.3 s Critically high 9.0-11.6 [facility] Comment on above: Performed By: #### P T, PTT ####[facility] Onoevtnitg[address] [place], [place] [address]Dr. Lizandro Hemphill PTTon 10-18-2021 aPTT Coag (Bld) [Time] 38.3 s Critically high 22.3-36.2 [facility] Comment on above: Performed By: #### P T, PTT ####[facility] Zfzerfoehi[address] [place], [place] [address]Dr. Lizandro Hemphill UA RANDOM W/MICROSCOPICon BACTERIA TRACE Abnormal NONE SEEN [facility] Comment on above: Performed By: #### U AMIC ####[facility] Ulgzolmqri[address] [place], [place] [address]Dr. Lizandro Hemphill Bilirubin Ql (U) Negative Normal NEGATIVE [facility] Comment on above: Performed By: #### U AMIC ####[facility] Zjrxharram4[address] [place], [place] [address]Dr. Lizandro Hemphill CAST NONE SEEN Normal NONE SEEN [facility] Comment on above: Performed By: #### U AMIC ####[facility] Nxqofkzaze6[address] [place], [place] [address]Dr. Lizandro Hemphill Clarity (U) CLEAR Normal CLEAR [facility] Comment on above: Performed By: #### U AMIC ####[facility] Suybmiilzo3562[address] [place], [place] [address]Dr. Lizandro Hemphill Color (U) LT. YELLOW Normal YELLOW [facility] Comment on above: Performed By: #### U AMIC ####[facility] Jgvylyndcr4214[address] [place], [place] [address]Dr. Lizandro Hemphill Crystals LM Nom (Urine sed) NONE SEEN Normal NONE SEEN [facility] Comment on above: Performed By: #### U AMIC ####[facility] Dcbgkmkcab0[address] [place], [place] [address]Dr. Lizandro Hemphill Epithelial cells LM Ql (Urine sed) RARE Normal NONE SEEN /RARE [facility] Comment on above: Performed By: #### U AMIC ####[facility] Olh[address]yzxcu[address] [place] [address]Dr. Lizandro Hemphill Glucose Ql (U) Negative Normal NEGATIVE [facility] Comment on above: Performed By: #### U AMIC ####[facility] Hwynmmbocb15[address] [place] [address]Dr. Lizandro Hemphill Hemoglobin Ql (U) Negative Normal NEGATIVE [facility] Comment on above: Performed By: #### U AMIC ####[facility] Ddjsyzghxc5[address] [place] [address]Dr. Lizandro Hemphill Ketones Ql (U) Negative Normal NEGATIVE [facility] Comment on above: Performed By: #### U AMIC ####[facility] Xybqttpobr24[address] [place], [place] [address]Dr. Lizandro Hemphill LEUKOCYTES Negative Normal NEGATIVE [facility] Comment on above: Performed By: #### U AMIC ####[facility] Oyxxxcfwzh[address] [place], [place] [address]Dr. Lizandro Hemphill MUCOUS NONE SEEN Normal NONE SEEN [facility] Comment on above: Performed By: #### U AMIC ####[facility] Azpqrngasv074[address] [place], [place] [address]Dr. Lizandro Hemphill Nitrite Ql (U) Negative Normal NEGATIVE [facility] Comment on above: Performed By: #### U AMIC ####[facility] Zlwszkeeyz[address] [place], [place] [address]Dr. Lizandro Hemphill pH (U) 6.5 [pH] Normal 5-9 [facility] Comment on above: Performed By: #### U AMIC ####[facility] Awjgqehaof[address] [place], [place] [address]Dr. Lizandro Hemphill RBC NONE SEEN Abnormal 0-2 [facility] Comment on above: Performed By: #### U AMIC ####[facility] Gnabmowahs[address] [place], [place] [address]Dr. Shanikaannie Hemphill SPEC GRAVITY <=1.005 Abnormal 1.005-<=1.025 [facility] Comment on above: Performed By: #### U AMIC ####[facility] Nsyzaektru[address] [place] [id number]. Lizandro Hemphill UA PROTEIN Negative Normal NEGATIVE/ TRACE [facility] Comment on above: Performed By: #### U AMIC ####[facility] Khhbrecuha9034 [place] [id number]. Lizandro Hemphill Urobilinogen Qn (U) 0.2 {Cassy'U}/dL Normal 0.2 - 1.0 [facility] Comment on above: Performed By: #### U AMIC ####[facility] Vqhcxgbhgw6373 [place] [id number]. Lizandro Hemphill WBC 0-2 Abnormal NONE SEEN [facility] Comment on above: Performed By: #### U AMIC ####[facility] [address]sg[address]qsf[address] [place] [address]Dr. Lizandro Hemphill Ambulatory Visit Summaryon 0 09-27-2021 Ambulatory Visit Summary FEROZ DUTTA :1960 Visit Date:09/27/2021 Ambulatory Visit Instructions Your [...] Sinus tachycardia Varicose veins of legs Normal [facility] PROTIMEon 09-20-2021 INR Coag (PPP) [Relative time] {INR} Normal [facility] Comment on above: Performed By: #### P T ####[facility] [address]qfbsosex[address] [place] [address]Dr. Lizandro Hemphill INR GUIDELINES SEE BELOW Normal [facility] Comment on above: Result Comment: GUEVARA RED INR: 2.0 - 3.0 CONDITIONS NOT LISTED BELOW 2.5 - 3.5 FOR PROSTHETIC HEART VALVE REPLACEMENT 2.5 - 3.5 RECURRENT THROMBOSIS Performed By: #### P T ####[facility] Jdzkipdqpp[address] [place] [address]DrCiro Hemphill PT Coag (PPP) [Time] 9.7 s Normal 9.0-11.6 [facility] Comment on above: Performed By: #### P T ####[facility] Mdcbdqnqdn[address] [place], [place] [address]Dr. Lizandro Hemphill Covid-19 PCR (CVDTB)on 08-25 SARS-CoV-2 (COVID-19) RNA VERITO+probe Ql (Unsp spec) Not detected Normal NOT DETECTED [facility] Comment on above: Result Comment: When [...] for this test is supported by the Payroll Tax Analyst of Health and Human Service's declaration that [...] used). Performed By: #### C [facility] ####[facility] [address]tb[address]kt[address] [place], [place] [address]ZqCiro Hemphill Physician Referralon 022 Physician Referral [id number] Normal [facility] GI Letteron 12-31-2017 GI Letter [facility] Academic Fax:Division of [phone] Phone:[facility] [phone] [facility] Fax:[place] [phone] [place], [place] [address]RQ: Patient Name: Feroz Dutta MR #: [id number] Date of : 1960 Date of Service:12/28/2017Tatiana Murphy Jr, D.O.[id number] Dr. Murphy:I had the pleasure of seeing your patient, Feroz Dutta in our endoscopyunit for history of recurrent [...] M.D.Date Trans: 12/30/2017 04:04 A/mmoRevised: 12/31/2017 07:52 A/paCopy/[id number]: Ezekiel Cheney M.D. [address] [address] Tatiana Murphy Jr, D.O. [address] [place], [place] [id number] [facility] Operative Reporton 8 Operative Report MR#: [id number] [facility] Pt. Name: Feroz Dutta Room #: 0C Discharge Date: Birthdate: 1960 OPERATIVE REPORTDATE OF SURGERY: 09/17/2017SURGEON: Jermaine Hernández M.D.FINAL EXPENSE AGENT: Sussy Prince M.D.PREOPERATIVE DIAGNOSIS: Left wrist extensor [...] 09/17/2017/10:36 Ruiz/Jermaine Hernández M.D.Date Trans: 09/17/2017 01:02 P/Devante_[id number] c: Ezekiel Cheney M.D. [address], [facility] [address] [facility] POC GLUCOSE LABon 09-17-2017 Glucose mass conc 74 mg/dL Normal 70-[address] [facility] Comment on above: Performed By: #### [id number] ####[facility] [place] [address], [facility] Vital Signs Date Time Vital Sign Value Performing Clinician Facility 12-04-2024 10:59-0400 Body height 157.5 cm Marlon Lee NP Work Phone: [facility] 12-04-2024 10:59-0400 Body mass index (BMI) [Ratio] 22.13 kg/m2 Marlon Lee NP Work Phone: [facility] 12-04-2024 10:59-0400 Body weight 54.88 kg Marlon Lee NP Work Phone: [facility] 04-09-2024 14:17-0500 Body height 157.5 cm Suki Shendge V, PA Work Phone: [facility] 04-09-2024 14:17-0500 Body mass index (BMI) [Ratio] 22.5 kg/m2 Suki Shendge V, PA Work Phone: [facility] 04-09-2024 14:17-0500 Body weight 55.79 kg Suki Shendge V, PA Work Phone: [facility] 04-09-2024 14:17-0500 Diastolic blood pressure 94 mm[Hg] Suki Shendge V, PA Work Phone: [facility] 04-09-2024 14:17-0500 Heart rate 73 /min Suki Shendge V, PA Work Phone: [facility] 04-09-2024 14:17-0500 Respiratory rate 16 /min Suki Shendge V, PA Work Phone: [facility] 04-09-2024 14:17-0500 Systolic blood pressure 132 mm[Hg] Suki Shendge V, PA Work Phone: [facility] 02-06-2024 10:33-0500 Body height 157.5 cm Shadi Duarte PA Work Phone: [facility] 02-06-2024 10:33-0500 Body mass index (BMI) [Ratio] 22.86 kg/m2 Shadi Duarte PA Work Phone: [facility] 02-06-2024 10:33-0500 Body weight 56.7 kg Shadi Duarte PA Work Phone: [facility] 12-25-2023 10:57-0400 Body height 157.5 cm Shadi Duarte PA Work Phone: [facility] 12-25-2023 10:57-0400 Body mass index (BMI) [Ratio] 22.68 kg/m2 Shadi Duarte PA Work Phone: [facility] 12-25-2023 10:57-0400 Body weight 56.25 kg Shadi Duarte PA Work Phone: [facility] 09-27-2021 15:12-0400 Blood Pressure Location Alessia KARYN [facility] [place] 09-27-2021 15:12-0400 Diastolic blood pressure 76 mm[Hg] Alessia HAL [facility] [place] 09-27-2021 15:12-0400 Heart rate 68 /min Alessia HAL [facility] [place] 09-27-2021 15:12-0400 Respiratory rate 16 /min Alessia HAL [facility] [place] 09-27-2021 15:12-0400 Systolic blood pressure 116 mm[Hg] Alessia HAL [facility] [place] Encounters Encounter Date Encounter Type Care Provider Facility Start: 12-25-2024 End: 12-25-2024 Office outpatient visit 15 minutes Marlon Lee NP Work Phone: [facility] Comment on above: Acute right ankle pa in; Sprain of anterior talofibular ligament of right ankle, initial encounter Start: 12-25-2024 End: 12-25-2024 Bamboo flowsheet Marlon Lee [employer] WORK[employer] Work Phone: [facility] Start: 12-25-2024 End: 12-25-2024 Bamboo flowsheet Marlon Lee [employer] WORK[employer] Work Phone: [facility] Start: 12-04-2024 End: 12-04-2024 Bamboo flowsheet Marlon Lee [employer] WORK[employer] Work Phone: [facility] Start: 12-04-2024 End: 12-04-2024 Bamboo flowsheet Marlon Lee [employer] WORKER Work Phone: [facility] Start: 12-04-2024 End: 12-04-2024 Office outpatient visit 15 minutes Marlon Lee [employer] WORK[employer] Work Phone: [facility] Comment on above: Sprain of anterior t alofibular ligament of right ankle, initial encounter (Primary Dx); Acute right ankle pain Start: 12-04-2024 End: 12-04-2024 ambulatory MARLON LEE Not Available Start: 12-02-2024 End: 12-02-2024 Emergency department patient visit EZEKIEL [place] [facility] Start: 12-01-2024 End: 12-01-2024 Telephone encounter Leta AGUAYO [facility] Start: 11-04-2024 End: 11-04-2024 Office outpatient visit 25 minutes Suki KIRAN Work Phone: [facility] Comment on above: Fibromyalgia (Primar y Dx); Medication monitoring encounter; Bilateral hand pain Start: 11-04-2024 End: 11-04-2024 ambulatory [facility] Start: 06-14-2024 End: 06-14-2024 Emergency department patient visit [facility] Start: 04-22-2024 End: 04-24-2024 ambulatory [facility] Start: 04-18-2024 End: 04-18-2024 Office outpatient visit 15 minutes Suki KIRAN Work Phone: [facility] Comment on above: Fibromyalgia (Primar y Dx); Encounter for medication counseling Start: 04-18-2024 End: 04-18-2024 ambulatory [facility] Start: 04-17-2024 End: 04-17-2024 [facility] Start: 04-09-2024 End: 04-09-2024 ambulatory [facility] Start: 04-09-2024 End: 04-09-2024 Office outpatient visit 25 minutes Suki Callahan PA Work Phone: [facility] Comment on above: Fibromyalgia (Primar y Dx); Primary osteoarthritis of both first carpometacarpal joints; Elevated liver enzymes Start: 03-13-2024 End: 03-13-2024 Bamboo flowsheet Britney Tattersall ENTOMOLOGY TEACHER [facility] Start: 03-13-2024 End: 03-13-2024 Bamboo flowsheet Britney Tattersall ENTOMOLOGY TEACHER [facility] Start: 03-13-2024 End: 03-13-2024 ambulatory Britney Tattersall ENTOMOLOGY TEACHER [facility] Comment on above: Acute left ankle ovidio n (Primary Dx); Closed nondisplaced fracture of lateral malleolus of left fibula with routine healing Start: 03-11-2024 End: 03-11-2024 Bamboo flowsheet Shadi Duarte PA Work Phone: [facility] Start: 03-11-2024 End: 03-11-2024 Bamboo flowskenyon KIRAN Work Phone: [facility] Start: 03-11-2024 End: 03-11-2024 Postop follow up visit related to original px Shadi KIRAN Work Phone: [facility] Comment on above: Acute left ankle ovidio n (Primary Dx); Closed nondisplaced fracture of lateral malleolus of left fibula with routine healing; Sprain of anterior talofibular ligament of left ankle, initial encounter Start: 03-11-2024 End: 03-11-2024 ambulatory Britney Sen ENTOMOLOGY TEACHER [facility] Comment on above: Acute left ankle ovidio n (Primary Dx); Closed nondisplaced fracture of lateral malleolus of left fibula with routine healing Start: 02-28-2024 End: 02-28-2024 Bamboo flowsheet Britney Bakeralli ENTOMOLOGY TEACHER [facility] Start: 02-28-2024 End: 02-28-2024 Bamboo flowsheet Britney Bakeralli ENTOMOLOGY TEACHER [facility] Start: 02-28-2024 End: 02-28-2024 ambulatory Dee Sharp PT Work Phone: [facility] Comment on above: Acute left ankle ovidio n (Primary Dx); Closed nondisplaced fracture of lateral malleolus of left fibula with routine healing Start: 02-20-2024 End: 02-20-2024 Bamboo flowsheet Moses Crockett PT Work Phone: [facility] Start: 02-20-2024 End: 02-20-2024 Bamboo flowsheet Moses J Jaime PT Work Phone: [facility] Start: 02-20-2024 End: 02-20-2024 ambulatory Moses Crockett PT Work Phone: [facility] Comment on above: Acute left ankle ovidio n (Primary Dx); Closed nondisplaced fracture of lateral malleolus of left fibula with routine healing Start: 02-06-2024 End: 02-06-2024 Bamboo flowskenyon KIRAN Work Phone: [facility] Start: 02-06-2024 End: 02-06-2024 Bamboo flowsheet Shadi KIRAN Work Phone: [facility] Start: 02-06-2024 End: 02-06-2024 Postop follow up visit related to original px Shadi KIRAN Work Phone: [facility] Comment on above: Acute left ankle ovidio n (Primary Dx); Closed nondisplaced fracture of lateral malleolus of left fibula with routine healing; Contusion of left ankle, initial encounter Start: 02-06-2024 End: 02-06-2024 ambulatory SHADI DUARTE Not Available Start: 02-01-2024 End: 02-01-2024 Emergency department patient visit [facility] Start: 01-21-2024 End: 01-21-2024 Bamboo flowskenyon Amador DO Work Phone: [facility] Start: 01-21-2024 End: 01-21-2024 Bamboo flowskenyon Molina Stepcherise DO Work Phone: [facility] Start: 01-21-2024 End: 01-21-2024 Postop follow up visit related to original px Jr. Sampson Amador DO Work Phone: [facility] Comment on above: Acute left ankle ovidio n (Primary Dx); Closed nondisplaced fracture of lateral malleolus of left fibula with routine healing Start: 01-21-2024 End: 01-21-2024 ambulatory SAMPSON DUMONT Not Available Start: 12-27-2023 End: 12-27-2023 ambulatory [facility] Start: 12-25-2023 End: 12-25-2023 Bamboo flowsheet Shadi KIRAN Work Phone: [facility] Start: 12-25-2023 End: 12-25-2023 Bamboo flowsheet Shadi KIRAN Work Phone: [facility] Start: 12-25-2023 End: 12-25-2023 ambulatory [place] [facility] Start: 12-25-2023 End: 12-25-2023 Office outpatient visit 15 minutes Shadi Duarte PA Work Phone: [facility] Comment on above: Acute left ankle ovidio n (Primary Dx); Closed nondisplaced fracture of lateral malleolus of left fibula, initial encounter Start: 12-25-2023 End: 12-25-2023 ambulatory SHADI DUARTE Not Available Start: 12-22-2023 End: 12-22-2023 Emergency department patient visit [facility] Start: 09-13-2023 End: 09-13-2023 ambulatory [facility] Start: 09-08-2023 ambulatory [facility] Start: 08-23-2023 ambulatory [facility] Start: 11-20-2022 ambulatory ALESSIA Doyle [facility] Start: 09-29-2022 End: 09-30-2022 ambulatory [facility] Start: 08-09-2022 End: 08-10-[address] EZEKIEL CHENEY . Facility:[facility]1 Start: 07-30-2022 End: 07-31-2022 Evaluation and management of inpatient DR EZEKIEL CHENEY . Facility:[facility] Start: 07-24-2022 End: 08-23-2022 ambulatory SHAIKH Alistair SINGH Facility:[facility]1 Start: 07-13-2022 ambulatory NARENDJEIMY LAKSHMIPATHY . Facility:[facility]1 Start: 06-27-2022 End: 06-28-2022 Evaluation and management of inpatient DR EZEKIEL CHENEY . Facility:[facility]1 Start: 06-27-2022 ambulatory NARENDJEIMY CAMARENASHMIPATHY . Facility:[facility]1 Start: 06-26-2022 End: 07-21-2022 ambulatory SHAIKH Alistair SINGH Facility:[facility]1 Start: 06-13-2022 End: 06-14-2022 ambulatory NARENDRANATH LAKSHMIPATHY . Facility:[facility]1 Start: 05-29-2022 End: 05-31-2022 Evaluation and management of inpatient DR EZEKIEL CHENEY . Facility:[facility]1 Start: 05-24-2022 End: 06-23-2022 ambulatory SHAIKH Alistair SINGH Facility:[facility]1 Start: 05-22-2022 End: 05-23-[address] DAJA GÓMEZ . Facility:[facility]1 Start: 05-03-2022 End: 05-06-[address] EZEKIEL CHENEY . Facility:[facility]1 Start: 04-27-2022 ambulatory REBECCA NUNES . Facility:H 1 Start: 04-26-2022 End: 05-24-2022 ambulatory SHAIKH Alistair SINGH Facility:[facility]1 Start: 04-13-2022 End: 04-13-2022 ambulatory MARLON ARREOLA Facility:[facility]1 Start: 03-27-2022 End: 04-26-2022 ambulatory SHAIKH Alistair SINGH Facility:[facility]1 Start: 03-09-2022 ambulatory REBECCA NUNES . Facility:H 1 Start: 03-03-2022 End: 03-07-[address] EZEKIEL CHENEY . Facility:[facility]1 Start: 03-01-2022 End: 03-01-2022 ambulatory KOBE MCCORMACK . Facility:[facility]1 Start: 02-23-2022 End: 03-26-2022 ambulatory SHAIKH Alistair SINGH Facility:H1 Start: 02-21-2022 End: 02-21-[address] BRUCE HILL Facility:H1 Start: 02-20-2022 End: 02-20-[address] MOI LAGUNAS Facility:[facility]1 Start: 02-01-2022 End: 02-02-[address] EZEKIEL CHENEY . Facility:[facility]1 Start: 01-25-2022 End: 01-27-2022 Evaluation and management of inpatient DR EZEKIEL CHENEY . Facility:[facility]1 Start: 01-24-2022 End: 02-22-2022 ambulatory SHAIKH Alistair SINGH Facility:[facility]1 Start: 01-18-2022 Encounter for preprocedural laboratory examination DR FELIX MALCOLM . [facility] Start: 01-17-2022 End: 01-17-[address] [...] SINGH Facility:H1 Start: 11-19-[address] EZEKIEL CHENEY . Facili ty:H1 Start: 11-17-2021 End: 11-18-2021 ambulatory REBECCA NUNES . Facility:[facility]1 Start: 10-31-2021 End: 10-31-2021 ambulatory JENIFER SAPP Facility:[facility]1 Start: 10-30-2021 End: 10-30-[address] RENATO DOMINGUEZ . Facility:[facility]1 Start: 10-26-2021 Encounter for preprocedural laboratory examination DR EZEKIEL CHENEY . [facility] Start: 10-25-2021 End: 10-25-[address] FELIX MALCOLM . Facility:[facility]1 Start: 10-24-2021 End: 11-23-2021 ambulatory SHAIKH Alistair SINGH Facility:[facility]1 Start: 10-21-2021 End: 10-22-[address] FELIX MALCOLM . Facility:[facility]1 Start: 10-20-2021 End: 10-21-2021 Evaluation and management of inpatient DR EZEKIEL CHENEY . Facility:[facility]1 Start: 10-06-2021 End: 10-07-2021 ambulatory REBECCA NUNES . Facility:[facility]1 Start: 09-27-2021 End: 09-27-2021 Patient encounter procedure Alessia BOSS General Surgery [facility] Start: 09-23-2021 End: 10-21-2021 ambulatory SHAIKH Alistair FRANCISCO Facility: Start: 09-20-2021 End: 09-20-[address] EZEKIEL CHENEY . Facility: Start: 09-16-2021 End: 09-17-[address] EZEKIEL CHENEY . Facility: Start: 09-15-[address] EZEKIEL CHENEY . Facili ty: Start: 12-28-2017 End: 12-29-2017 Patient encounter CHRISTOPHER VALENCIA Facility:[facility] Start: 10-25-2017 End: 11-24-2017 Patient encounter MICHAEL REAAPHA Facility:[facility] Start: 09-17-2017 End: 09-18-2017 Patient encounter ABDULAZIM SHAD Facility:[facility] Procedures Date Procedure Procedure Detail Performing Clinician Start: 12-25-2024 Radex ankle complete minimum 3 views Marlon Lee [employer] WORK[employer] Work Phone: Start: 04-09-2024 Follow-up visit Follow-up SUKI CALLAHAN V Start: 03-11-2024 Radex ankle complete minimum 3 views Shadi Duarte PA Work Phone: Start: 01-21-2024 Radex ankle complete minimum 3 views Jr. Sampson Amador DO Work Phone: Start: 12-25-2023 Cyclic citrullinated peptide antibody EZEKIEL CHENEY Comment on above: Result Comment: Interpretation-------- <3 Negative >=3 Positive Performed By: #### C BCA, 1988-5, 64304-0, C34, 96738-4, ENAP, 75091-0, DEO, B2G #### [facility] ([id number]) [address] [place] [address], [address] [place] [address] #### NAIFA #### [facility] ([id number]) [address] [place] [address], [place] [address] Start: 12-25-2023 CAST / SPLINT / FX Shadi KIRAN Work Phone: Start: 03-01-2023 Adult depression screening assessment MAGNO Pearce Work Phone: Start: 11-20-2022 Follow-up visit Follow-up ALESSIA WHITE Start: 05-29-2022 Insertion of Infusion Device into Upper Vein, Percutaneous Approach DR EZEKIEL CHENEY . Start: 05-27-2022 Insertion of Infusion Device into Right Basilic Vein, Percutaneous Approach DR EZEKIEL CHENEY . Start: 05-27-2022 Transfusion of Nonautologous Red Blood Cells into Central Vein, Percutaneous Approach DR EZEKIEL CHENEY . Start: 01-25-2022 Transfusion of Nonautologous Red Blood Cells into Peripheral Vein, Percutaneous Approach DR EZEKIEL CHENEY . Start: 12-28-2017 ANES UPR GI NDSC PX NOS AGUSTO RON Start: 12-28-2017 Esophagogastroduodenoscopy [EGD] with closed biopsy CHRISTOPHER VALENCIA Start: 09-17-2017 ANESTH LOWER ARM SURGERY AGUSTO RON Start: 09-17-2017 REPAIR FOREARM TENDON/MUSCLE ABDULAZIM M USTAPHA Appendectomy Alessia BOSS Cervical arthrodesis Alessia BOSS Comment on above: C5-C8 Cholecystectomy Alessia HAL History of operative procedure on knee Alessia HAL Structure of ligamen t of ankle joint (body structure) Alessia HAL Total abdominal hyst erectomy with bilateral salpingo-oophorectomy Alessia HAL Plan of Treatment Date Care Activity Detail Author Start: 12-21-2033 DTaP,Tdap and Td Vaccines (2 - Td or Tdap) DTaP,Tdap and Td Vaccines (2 - Td or Tdap) [facility] Start: 11-04-2025 Tobacco Screening [facility]ening [facility] Start: 05-07-2025 End: 05-07-2025 Telemedicine consultation with patient 05/07/2025 2:15 PM EST Telemedicine [facility], A Department of [facility] [address] [facility] [address] [place] [address] Suki Callahan PA [address] [facility] [place] [address] [facility] Start: 04-24-2025 Adult BMI Screening Adult BMI Screen ing [facility] Start: 04-22-2025 Tobacco Screening Tobacco Screening [facility] Start: 04-18-2025 Tobacco Screening Tobacco Screening [facility] Start: 04-09-2025 Adult BMI Screening Adult BMI Screen ing [facility] Start: 04-09-2025 Tobacco Screening Tobacco Screening [facility] Start: 02-04-2025 End: 11-04-2025 Creatinine includes GFR, serum Creatinine includes GFR, serum Lab Routine Medication monitoring encounter Expected: 02/04/2025 (Approximate), Expires: 11/04/2025 [facility] Comment on above: Expected: 02/04/2025 (Approximate), Expires: 11/04/2025 Start: 01-15-2025 End: 01-15-2025 Patient encounter procedure 01/15/2025 2:15 PM EDT Office Visit [facility] [address] [place] [id number] Marlon Lee, [employer] WORKER [address] [place] [address] [facility] Start: 12-25-2024 End: 12-25-2024 Patient encounter procedure [facility] Comment on above: Arrived Start: 12-25-2024 End: 12-25-2025 MR Ankle - right WO contrast MR ankle right wo IV contrast Imaging Routine Sprain of anterior talofibular ligament of right ankle, initial encounter Expected: 12/25/2024 (Approximate), Expires: 12/25/2025 [facility] Work Phone: Comment on above: Expected: 12/25/2024 (Approximate), Expires: 12/25/2025 Start: 12-04-2024 End: 12-04-2024 Patient encounter procedure 12/04/2024 11:00 AM EDT Office Visit [facility] [address] [facility] [place] [phone] Marlon Lee NP [address] [place], [place] [id number] Arrived [facility] Comment on above: Arrived Start: 11-24-2024 COVID-19 Vaccine () COVID-19 Vaccine () [facility] [employer] [facility] Start: 11-24-2024 Influenza vaccination [facility] Start: 11-04-2024 End: 11-04-2025 XR Hand - left 3 Views X-ray hand left minimum 3 views Imaging Routine Bilateral hand pain Expected: 11/04/2024, Expires: 11/04/2025 [employer] Work Phone: Comment on above: Expected: 11/04/2024 , Expires: 11/04/2025 Start: 11-04-2024 End: 11-04-2025 XR Hand - right 3 Views X-ray hand right minimum 3 views Imaging Routine Bilateral hand pain Expected: 11/04/2024, Expires: 11/04/2025 [facility] Comment on above: Expected: 11/04/2024 , Expires: 11/04/2025 Start: 10-16-2024 End: 10-16-2024 Patient encounter procedure 10/16/2024 12:45 PM EDT Office Visit [facility] [address] [place] [phone] Suki Callahan PA [address] [address] [facility] Start: 07-02-2024 End: 07-02-2024 Patient encounter procedure 07/02/2024 1:30 PM EDT Office Visit [facility] [address] [address] [place] [address] [place] [address] [address] [place] [address] [facility] Start: 04-18-2024 End: 04-18-2024 Telemedicine consultation with patient 04/18/2024 9:30 AM EST Telemedicine [facility] [address] [place] [phone] [place] [address] [place] [address] [address] [place] [address] [facility] Start: 04-09-2024 End: 04-09-2025 Hepatic function 2000 panel - Serum or Plasma Hepatic function panel Lab Routine Elevated liver enzymes Expected: 04/09/2024 (Approximate), Expires: 04/09/2025 [facility] Work Phone: Comment on above: Expected: 04/09/2024 (Approximate), Expires: 04/09/2025 Start: 04-08-2024 End: 04-08-2024 Patient encounter procedure 04/08/2024 10:45 AM EST Office Visit [facility] [address] [place] [address] Shadi Duarte PA [address] [address] [facility] Start: 03-13-2024 End: 03-13-2024 ambulatory [facility] Comment on above: Arrived Start: 03-11-2024 End: 03-11-2024 ambulatory [facility] Start: 03-11-2024 End: 03-11-2024 Patient encounter procedure [facility] Comment on above: Acute left ankle ovidio n (Primary Dx); Closed nondisplaced fracture of lateral malleolus of left fibula with routine healing Start: 03-06-2024 End: 03-06-2024 ambulatory 03/06/2024 12:00 PM EST Treatment [facility] [address] [place] [phone] Deya Farnsworth, ENTOMOLOGY TEACHER [address] [place] [address] [facility] Start: 03-04-2024 End: 03-04-2024 ambulatory 03/04/2024 12:00 PM EST Treatment [facility] [address] [place] [phone] Deya Farnsworth, ENTOMOLOGY TEACHER [address] [place] [address] [facility] Start: 03-04-2024 End: 03-04-2024 Patient encounter procedure 03/04/2024 11:15 AM EST Office Visit [facility] [address] [place] [address] Jr. Sampson Amador, DO [address] [address] [facility] Start: 03-01-2024 Depression Screening Depression [facility] Start: 02-28-2024 End: 02-28-2024 ambulatory [facility] Comment on above: Arrived Start: 02-26-2024 End: 02-26-2024 ambulatory 02/26/2024 5:30 PM EST Treatment [facility] [address] [place] [phone] Deya Farnsworth, ENTOMOLOGY TEACHER [address] [place] [address] [facility] Start: 02-20-2024 End: 02-20-2024 ambulatory [facility] Comment on above: Arrived Start: 01-21-2024 End: 01-21-2024 Patient encounter procedure 01/21/2024 2:00 PM EDT Office Visit [facility] [address] [place] [address] Jr. Sampson Amador DO [address] [facility] [address] [place] [address] Arrived [facility] Comment on above: Arrived Start: 01-15-2024 End: 01-15-2024 Patient encounter procedure 01/15/2024 1:30 PM EDT Office Visit [facility] [address] [place] [address] Shadi Duarte, PA [address] [facility] [address] [place] [address] [facility] Start: 12-25-2023 End: 12-25-2023 Patient encounter procedure 12/25/2023 10:45 AM EDT Office Visit [facility] [address] [place] [address] Shadi Duarte PA [address] [facility] [facility], [place] [address] [place] [address] Acute left ankle pain (Primary Dx); Closed nondisplaced fracture of lateral malleolus of left fibula, initial encounter [facility] Comment on above: Acute left ankle ovidio n (Primary Dx); Closed nondisplaced fracture of lateral malleolus of left fibula, initial encounter Start: 11-25-2023 COVID-19 Vaccine ( season) COVID-19 Vaccine ( season) [facility] Start: 11-25-2023 Influenza vaccination [facility] Start: 10-03-2023 Screening for malign ant neoplasm of colon [facility] Start: 12-13-2011 Administration of varicella zoster vaccine Zoster (Shingles) Vaccine (1 of 2) [facility] Start: 2001 Screening for malign ant neoplasm of breast Mammogram [facility] Start: 12-13-1991 Screening for malign ant neoplasm of cervix [facility] Start: 1982 Screening for malign ant neoplasm of cervix Pap Smear [facility] Start: 1961 Screening for malign ant neoplasm of colon [facility] Start: 1961 Statin Use: Cardiovascular Statin Use: Cardiovascular [facility] XR Tibia and Fibula - left 2 Views XR tibia fibula 2 views left Imaging Routine Closed nondisplaced fracture of lateral malleolus of left fibula, initial encounter 12/25/2023 11:21 AM EDT [facility] Work Phone: Immunizations Immunization Date Immunization Notes Care Provider Fa shahana 12-22-2023 tetanus toxoid, redu eve diphtheria toxoid, and acellular pertussis vaccine, adsorbed MAGNO Pearce Work Phone: [facility] 10-09-2022 tuberculin skin test ; purified protein derivative solution, intradermal MAGNO Pearce Work Phone: [facility] 03-26-2021 influenza, injectabl e, quadrivalent, preservative free Shadi KIRAN Work Phone: [facility] 03-26-2021 influenza virus vaccine, unspecified formulation Shadi KIRAN Work Phone: [facility] 09-22-2020 Pfizer Purple Cap SARS-CoV-2 Vaccination Shadi KIRAN Work Phone: [facility] 08-24-2020 Pfizer Purple Cap SARS-CoV-2 Vaccination Shadi KIRAN Work Phone: [facility] 05-14-2020 influenza, injectabl e, quadrivalent, preservative free Shadi KIRAN Work Phone: [facility] 12-31-2019 Influenza, injectabl e, Madin Mesha Canine Kidney, preservative free, quadrivalent Shadi KIRAN Work Phone: [facility] 11-25-2019 influenza, seasonal, injectable Shadi KIRAN Work Phone: [facility] 04-26-2017 influenza, injectabl e, quadrivalent, preservative free Shadi KIRAN Work Phone: [facility] Payers Date Payer Category Payer [employer] ( and others) FOR LIFE [id number] 2021-Present [address] [place] [address] [id number] 2020 () [id number] 2020 [employer] ( and others) [id number] 2019 Medicare [id number]. [id number] 2017 [employer] ( and others) [id number] 1961 Unknown [id number] 2.16.840.1.927138.3.579.2. 647 1961 Unknown [id number] 2.16.840.1.105620.3.579.2. 647 1961 Unknown [id number] 2.16.840.1.539042.3.579.2. 647 1961 Unknown [id number] 2.16.840.1.110474.3.579.2. 593 1961 Unknown [id number] 2.16.840.1.622687.3.579.2. 593 1961 Unknown [id number] 2.16.840.1.396921.3.579.2. 593 1961 Unknown [id number] 2.16.840.1.738532.3.579.2. 593 1961 Unknown [id number] 2.16.840.1.326743.3.579.2. 593 1961 Unknown [id number] 2.16.840.1.883036.3.579.2. 593 1961 Unknown [id number] 2.16.840.1.166466.3.579.2. 593 1961 Unknown [id number] 2.16.840.1.663039.3.579.2. 593 1961 Unknown [id number] 2.16.840.1.469524.3.579.2. 593 1961 Unknown [id number] 2.16.840.1.925532.3.579.2. 593 1961 Unknown [id number] 2.16.840.1.636614.3.579.2. 593 1961 Unknown [id number] 2.16.840.1.776266.3.579.2. 593 1961 Unknown [id number] 2.16.840.1.290041.3.579.2. 593 1961 Unknown [id number] 2.16.840.1.717443.3.579.2. 593 1961 Unknown [id number] 2.16.840.1.728300.3.579.2. 593 1961 Unknown [id number] 2.16.840.1.722160.3.579.2. 593 1961 Unknown [id number] 2.16.840.1.924710.3.579.2. 593 1961 Unknown [id number] 2.16.840.1.875219.3.579.2. 593 1961 Unknown [id number] 2.16.840.1.139358.3.579.2. 593 1961 Unknown [id number] 2.16.840.1.414969.3.579.2. 593 1961 Unknown [id number] 2.16.840.1.149736.3.579.2. 593 1961 Unknown [id number] 2.16.840.1.255773.3.579.2. 593 1961 Unknown [id number] 2.16.840.1.511059.3.579.2. 593 1961 Unknown [id number] 2.16.840.1.543476.3.579.2. 593 1961 Unknown [id number] 2.16.840.1.534066.3.579.2. 593 1961 Unknown [id number] 2.16.840.1.897417.3.579.2. 593 1961 Unknown [id number] 2.16.840.1.085991.3.579.2. 593 1961 Unknown [id number] 2.16.840.1.508889.3.579.2. 593 1961 Unknown [id number] 2.16.840.1.092303.3.579.2. 593 1961 Unknown [id number] 2.16.840.1.242406.3.579.2. 593 1961 Unknown [id number] 2.16.840.1.155182.3.579.2. 593 1961 Unknown [id number] 2.16.840.1.049453.3.579.2. 593 1961 Unknown [id number] 2.16.840.1.445922.3.579.2. 593 1961 Unknown [id number] 2.16.840.1.181985.3.579.2. 593 1961 Unknown [id number] 2.16.840.1.428461.3.579.2. 593 1961 Unknown [id number] 2.16.840.1.452898.3.579.2. 593 1961 Unknown [id number] 2.16.840.1.278841.3.579.2. 593 1961 Unknown [id number] 2.16.840.1.753041.3.579.2. 593 1961 Unknown [id number] 2.16.840.1.597378.3.579.2. 593 1961 Unknown [id number] 2.16.840.1.250348.3.579.2. 593 1961 Unknown [id number] 2.16.840.1.282429.3.579.2. 593 1961 Unknown [id number] 2.16.840.1.503218.3.579.2. 593 1961 Unknown [id number] 2.16.840.1.282418.3.579.2. 593 1961 Unknown [id number] 2.16.840.1.497845.3.579.2. 593 1961 Unknown [id number] 2.16.840.1.923201.3.579.2. 593 1961 Unknown [id number] 2.16.840.1.217358.3.579.2. 593 1961 Unknown [id number] 2.16.840.1.079935.3.579.2. 1286 1961 Unknown [id number] 2.16.840.1.195062.3.579.2. 128 1961 Unknown [id number] 2.16.840.1.532769.3.579.2. 128 1961 Unknown [id number] 2.16.840.1.243837.3.579.2. 128 1961 Unknown [id number] 2.16.840.1.024219.3.579.2. 128 1961 Unknown [id number] 2.16.840.1.726376.3.579.2. 1286 1961 Unknown [id number] 2.16.840.1.137164.3.579.2. 1285 1961 Unknown [id number] 2.16.840.1.250343.3.579.2. 1285 1961 Unknown [id number] 2.16.840.1.433866.3.579.2. 1285 1961 Unknown [id number] 2.16.840.1.479868.3.579.2. 1285 1961 Unknown [id number] 2.16.840.1.560488.3.579.2. 1285 1961 Unknown [id number] 2.16.840.1.442440.3.579.2. 1285 1961 Unknown [id number] 2.16.840.1.186285.3.579.2. 1285 1961 Unknown [id number] 2.16.840.1.623118.3.579.2. 1285 1961 Unknown [id number] 2.16.840.1.337756.3.579.2. 1285 1961 Unknown [id number] 2.16.840.1.743060.3.579.2. 1258 1961 Unknown [id number] 2.16.840.1.913526.3.579.2. 1258 1961 Unknown [id number] 2.16.840.1.011456.3.579.2. 1258 1961 Unknown [id number] 2.16.840.1.283870.3.579.2. 1258 1961 Unknown [id number] 2.16.840.1.735413.3.579.2. 1258 1961 Unknown [id number] 2.16.840.1.776205.3.579.2. 1259 1961 Unknown [id number] 2.16.840.1.432219.3.579.2. 9 1961 Unknown [id number] 2.16.840.1.207017.3.579.2. 9 1961 Unknown [id number] 2.16.840.1.603325.3.579.2. 1258 1961 Unknown [id number] 2.16.840.1.811457.3.579.2. 1258 1961 Unknown [id number] 2.16.840.1.632471.3.579.2. 1258 1961 Unknown [id number] 2.16.840.1.046224.3.579.2. 1259 1958 Department [facility] ([facility] and others) [id number] 1958 Medicare [id number] 1958 Self-pay [id number] Social History Date Type Detail Facility Start: 09-27-2021 End: 12-25-2023 Tobacco smoking status Never smoked tobacco (finding) [facility] Tobacco smoking status Never [facility] Start: 12-25-2023 End: 12-25-2024 Sex Assigned At Female [facility] Start: 08-28-2022 Tobacco smoking stat [facility] Tobacco smoking consumption unknown [facility] Start: 09-07-2023 Alcoholic beverage intake Defer [facility] Start: 1960 Sex assigned at Not on file [facility] Start: 10-27-2022 End: 12-25-2023 Tobacco use and exposure Smokeless tobacco non-user [facility] Start: 12-25-2023 End: 12-25-2024 Alcoholic beverage intake Ex-drinker (finding) [facility] Start: 12-25-2023 End: 12-25-2024 History of Social function [facility] Start: 04-09-2024 End: 11-04-2024 Alcoholic beverage intake Current non-drinker of alcohol (finding) [facility] How often to you hav e a drink containing alcohol? Monthly or less [facility] How many standard drinks containing alcohol do you have on a typical day? 1 or 2 [facility] [employer] [facility] How often do you hav e 6 or more drinks on 1 occasion? Never [facility] [employer] Start: 10-18-2017 Alcohol Comment special occasions [employer] [facility] Start: 10-29-2014 Sex Female (finding) [facility] [employer] [facility] Has the [employer], [employer], or water [employer] threatened to shut off services in your home in past 12Mo No [facility] [employer] [facility] Medical Equipment Procedure Code Equipment Code Equipment Origin al Text Equipment Identifier Dates Graft Bn Cllr Demineralize Fbr Xl Mariano Vivigen Frmbl Rpl [id number] - [id number] Start: 11-03-2022 Cap Lck Quartex Spne Thrd Rpl Special [id number] - [id number] Start: 11-03-2022 Alvin Spnl Quartex 60mm 4mm Crv Ns Lf - [id number] Start: 11-03-2022 Screw Bn 12mm 3. 5mm Pa Spne Quartex Ns Lf - [id number] Start: 11-03-2022 Screw Bn 28mm 4m m Pa Spne Quartex Ns Lf - [id number] Start: 11-03-2022 Screw Bn 26mm 4m m Pa Spne Quartex Ns Lf - [id number] Start: 11-03-2022 Goals Date Patient Goal Desired Activity /State Personal health goal Comment on above: Formatting of this n ote might be different from the original. Evaluation of progress towards goal: go to rehab Personal health goal Comment on above: Formatting of this n ote might be different from the original. Evaluation of progress towards goal: Plan to return home with son. Personal health goal Comment on above: Formatting of this n ote might be different from the original. Evaluation of progress towards goal: Home with self care Functional Status Date Assessment Result Facility 09-27-2021 Functional Status N/A [facility] Clinical Notes 10-06-2021 to 12-25-2024 Marlon Lee, BANDAR - 12/25/2024 3:00 PM EDKatherine Lee, BANDAR - 12/04/2024 11:00 AM EDTTelephone Encounter - Leta Cabrera, RMA - 12/01/2024 11:26 AM EDMAGNO Arriaga - 11/04/2024 12:45 PM EDT Note Date & Type Note Facility 12-25-2024 History of Present illness Narrative Images from the original note were not included. HISTORY OF PRESENT ILLNESS: EST PT Feroz Dutta is an 64 y.o. @ female. (EST PT) RT FOOT/ANKLE PAIN - 12/02/24 (3 WKS 2 DAYS) XRAY TODAY RT ANKLE [facility] 12/25/24 XRAY RT FOOT/RT ANKLE [facility] 12/02/24 PARTIAL WB IN CAM BOOT WITH CRUTCHES. PAIN MOSTLY LATERAL BUT CAN BE DIFFUSE. +TYL AND MOTRIN. +ICE. INTERMITTENT N/T. +SWELLING. +WAKES AT HS. MEMO: 12/02/24, PT STEPPED IN A HOLE AT HOME- WENT TO [facility] ER TX; XRAY/HYDROCODONE/ABRAHAN WRAP/CRUTCHES ALLERGIES: Allergies Allergen Reactions Baclofen Other Reaction(s): mental confusion Cefdinir Unknown Clindamycin Unknown Iodinated Contrast Media Unknown Morphine Unknown Prochlorperazine Unknown HOME MEDICATIONS: Current Outpatient Medications Medication Instructions amitriptyline (Elavil) 10 MG tablet Oral, Nightly celecoxib (CELEBREX) 200 mg, Oral, 2 times daily cyclobenzaprine (FLEXERIL) 10 mg, Oral, 3 times daily PRN gabapentin (NEURONTIN) 100 mg hydrOXYzine HCl (Atarax) 25 MG tablet Oral promethazine (Phenergan) 25 MG tablet promethazine 25 mg tablet temazepam (Restoril) 30 MG capsule Every 24 hours warfarin (COUMADIN) 5 mg, Oral, Daily RT PHYSICAL EXAM: Right Ankle Exam Tenderness The patient is experiencing tenderness in the ATF (anterior ankle). Swelling: moderate Range of Motion Dorsiflexion: 0 Plantar flexion: 10 Right ankle inversion: unable to test due to pain. Muscle Strength Right ankle normal muscle strength: 4-/5. Tests Anterior drawer: negative Other Erythema: absent Right ankle sensation: dullness in foot. Pulse: present Comments: NWB using crutches and CAM boot Vitals: There is no height or weight on file to calculate BMI. Tobacco Use: Low Risk (12/25/2024) Patient History Smoking Tobacco Use: Never Smokeless Tobacco Use: Never Passive Exposure: Not on file Alcohol Use: Not At Risk (03/01/2023) Received from [employer] AUDIT-C Frequency of Alcohol Consumption: Monthly or less Average Number of Drinks: 1 or 2 Frequency of Binge Drinking: Never IMAGING: XR ankle 3+ views right Imaging Result: 12/25/2024: AP, LAT and oblique of the right ankle demonstrate no acute fracture or dislocation. There is decreased talar joint space but no obvious osteophyte formation. Impression: no acute findings of right ankle. Procedures Orders Placed This Encounter Procedures XR ankle 3+ views right Reason for exam:: pain MR ankle right wo IV contrast MRI RT ankle w/o at [facility]. Orbits if needed. Please contact patient to schedule. Standing Status: Future Expected Date: 12/25/2024 Expiration Date: 12/25/2025 Reason for exam:: Rule out fracture of RT ankle ASSESSMENT: ICD-10-CM 1. Acute right ankle pain M25.571 XR ankle 3+ views right 2. Sprain of anterior talofibular ligament of right ankle, initial encounter S93.491A MR ankle right wo IV contrast PLAN: Patient has had no relief since last appointment and is unable to put weight on ankle during exam today. I recommend she have MRI of the right ankle to rule out occult fracture or ligament injury. Continue in CAM boot and be WBAT. Follow up in 2 weeks for RCK. Questions answered in laymen terms at the bedside. The diagnosis, home exercise plan and any ongoing restrictions/ recommendations reviewed. If unable to be reached in office, I recommend evaluation at nearest Emergency Room if any symptoms worsened or new symptoms develop for requiring urgent evaluation. documented in this encounter [facility] 12-04-2024 History of Present illness Narrative Images from the original note were not included. HISTORY OF PRESENT ILLNESS: EST PT Feroz Dutta is an 63 y.o. @ female. EST PT WITH NEW C/O RT FOOT/ANKLE PAIN - PT STEPPED IN A HOLE AT HOME 12/02/24 (2DAYS AGO)- WENT TO [facility] ER TX; XRAY/HYDROCODONE/ABRAHAN WRAP/CRUTCHES XRAY RT FOOT/RT ANKLE 12/02/24 [facility], PT CONTINUES NWB WITH CRUTCHES- PAIN LATERAL ANKLE- PT NOTES ANTERIOR ANKLE PAIN WELL- PT NOTED SWELLING/BRUISING INITIALLY- PAIN CAN BE SHARP STABBING PAIN- SWELLING HAS IMPROVED- PT ICES/ELEVATES ALLERGIES: Allergies Allergen Reactions Baclofen Other Reaction(s): mental confusion Cefdinir Unknown Clindamycin Unknown Iodinated Contrast Media Unknown Morphine Unknown Prochlorperazine Unknown HOME MEDICATIONS: Current Outpatient Medications Medication Instructions amitriptyline (Elavil) 10 MG tablet Oral, Nightly celecoxib (CELEBREX) 200 mg, Oral, 2 times daily cyclobenzaprine (FLEXERIL) 10 mg, Oral, 3 times daily PRN gabapentin (NEURONTIN) 100 mg hydrOXYzine HCl (Atarax) 25 MG tablet Oral promethazine (Phenergan) 25 MG tablet promethazine 25 mg tablet temazepam (Restoril) 30 MG capsule Every 24 hours warfarin (COUMADIN) 5 mg, Oral, Daily RT PHYSICAL EXAM: Right Ankle Exam Tenderness The patient is experiencing tenderness in the ATF (anterior ankle). Swelling: moderate Range of Motion Dorsiflexion: 0 Plantar flexion: 10 Right ankle inversion: unable to test due to pain. Muscle Strength Right ankle normal muscle strength: 4-/5. Tests Anterior drawer: negative Other Erythema: absent Right ankle sensation: dullness in foot. Pulse: present Comments: NWB using crutches Vitals: Body mass index is 22.13 kg/m . Tobacco Use: Low Risk (12/04/2024) Patient History Smoking Tobacco Use: Never Smokeless Tobacco Use: Never Passive Exposure: Not on file Alcohol Use: Not At Risk (03/01/2023) Received from [employer] AUDIT-C Frequency of Alcohol Consumption: Monthly or less Average Number of Drinks: 1 or 2 Frequency of Binge Drinking: Never IMAGING: XR ANKLE RT MIN 3 VWS Clinical history:fall pain Comparison: None. Impression: No ankle joint effusion. No fracture or dislocation. Alignment and mineralization appear to be within normal limits. No definitive acute osseous abnormality. Finalized by Alessia Bah MD on 12/02/2024 2:02 PM Procedures No orders of the defined types were placed in this encounter. ASSESSMENT: ICD-10-CM 1. Sprain of anterior talofibular ligament of right ankle, initial encounter S93.491A 2. Acute right ankle pain M25.571 PLAN: I reviewed xray findings with patient which showed no acute fracture or dislocation. Most of her pain is around her lateral malleolus and specifically her ATFL. She does have some anterior ankle pain as well. As patient is unable to put weight into her right lower extremity I recommend she be placed in CAM boot and be WBAT. She will follow up in 3 weeks for RCK and xray if still painful. A right L4361 Walking Boot, Pneumatic and/or Vacuum, With or Without Joints, Prefabricated, Off the Shelf was dispensed and applied at this visit. Due to the patient's diagnosis and related symptoms this is medically necessary for treatment. The function of this device is to restrict and limit motion, provide stabilization, immobilization, and compression to the affected area. The goals and function-of this device were explained in detail to the patient. Upon gait analysis, the device appeared to be fitting well and the patient states that the device is comfortable at this time. The patient was shown and told in detail how to properly wear and care for the device. They were able to apply the device properly themselves and able to ambulate without distress. At the time the device was dispensed, it was suitable for the condition and was not substandard. No guarantees were given and precautions were reviewed. Written instructions and warranty information was given along with the list of the current Durable Medical Equipment Supplier Guidelines. The patient was given a patient education sheet regarding signs and symptoms of a DVT and was instructed to call the doctor immediately if they experience any symptoms. Questions answered in laymen terms at the bedside. The diagnosis, home exercise plan and any ongoing restrictions/ recommendations reviewed. If unable to be reached in office, I recommend evaluation at nearest Emergency Room if any symptoms worsened or new symptoms develop for requiring urgent evaluation. documented in this encounter [facility] 12-01-2024 Miscellaneous Notes Patient called in stating she was seen by telehealth on 11/04/2024 she was prescribe Celebrex but only for a 15 days script. Patient states she normal gets a 60 day prescription. Patient wants to know is she only taking medication for 15 days or to continue with previous script. We had discussed the increased risk of bleeding because she is on blood thinner and combining any NSAID with that ca do that She might have forgotten that I had given her a short term script for increasing hand pain Patient advised of message and states she forgot but she understands documented in this encounter [facility] 12-01-2024 Telephone encounter Note Patient called in stating she was seen by telehealth on 11/04/2024 she was prescribe Celebrex but only for a 15 days script. Patient states she normal gets a 60 day prescription. Patient wants to know is she only taking medication for 15 days or to continue with previous script. [facility] 12-01-2024 Telephone encounter Note We had discussed the increased risk of bleeding because she is on blood thinner and combining any NSAID with that ca do that She might have forgotten that I had given her a short term script for increasing hand pain [facility] 12-01-2024 Telephone encounter Note Patient advised of message and states she forgot but she understands [facility] 11-04-2024 History of Present illness Narrative Images from the original note were not included. [address] [address] Date of Service: 11/04/2024 This patient is seen at the request of EZEKIEL CHENEY MD. Chief Complaint: Hands and armpit pain SUBJECTIVE: Fibromyalgia symptoms are stable on amitriptyline, Flexeril, gabapentin Restricted use of because of her being on blood thinners which may potentially increase the risk for bleeding New symptoms: Left hand pain , especially in thumb area, feels swollen. Started about a month ago, no injury Excessive usage makes it worse Feroz Dutta is a 63 y.o. female with protein C deficiency on Coumadin who presents today for evaluation of M79.641, M79.642 (ICD-10-CM) - Bilateral hand pain . This visit was to go over the lab results and to review medication response No significant change in health history Visit history from 04/09/24 Feroz Dutta is a 63 y.o. female with protein C deficiency on Coumadin who presents today for evaluation of M79.641, M79.642 (ICD-10-CM) - Bilateral hand pain . Fibromyalgia symptoms are stable on amitriptyline, Flexeril, gabapentin New symptoms: Hand swelling at night since last two weeks , no other joints bother her Moving around helps with swelling and stiffness. She reports excessive drying of her skin in hands especially in palmar region, excessive redness and cracking of skin. Denies any injury or trauma to her hands In summer of 2022 she did have episodes of elevated liver enzyme and on further questioning she admitted to gastritis and being in the hospital for the same. She has had gallbladder surgery several years ago. Her liver enzymes started trending down by February 2023. Currently she denies any gastrointestinal symptoms. Visit history from 12/27/2023 Fibromyalgia symptoms are stable Elavil 10 mg, gabapentin 300 mg Flexeril 10 mg at bedtime are helping with fibromyalgia symptoms She is tolerating all these medications well without any side effects She had ankle fracture on 12/22/2023 which being treated by orthopedics at [facility] Labs were ordered for her during her last visit in September 13, 2023: Rheumatoid factor, CCP, JEISON, complement, janna panel, antiphospholipid antibodies, ANCA were negative/normal. Her ESR came elevated at 53 while CRP was mildly elevated at 1 Of note her liver enzymes alkaline phosphatase, AST, ALT have been elevated since March 14, 2023 Visit history from 09/19/2023 Feroz Dutta is a 63 y.o. female with protein C deficiency on Coumadin who presents today for evaluation of M79.641, M79.642 (ICD-10-CM) - Bilateral hand pain . This episode started in June 2023 with sharp pain underneath her right armpit. Eventually it did involve left armpit but not as severe as on the right. She describes these pain sensations as burning sensations going down her arms. She also thinks her right upper arm is swollen. Her hands and heels also feel swollen. She has had chronic aches and pains in the past but has not had any flares for several years until this particular episode. She has been comprehensively evaluated by vascular surgery by Dr. Liset Hutson for arterial and venous occlusive disease. She had ultrasound and CT angiogram which were normal. He referred her to our office for concerns of rheumatological disorder. Previous/current meds Flexeril-- to help her with pain Elavil -- to help with pain Denies personal or family history of psoriasis, rheumatoid arthri, lupus. Dad did have history of gout Current Outpatient Medications Medication Sig Dispense Refill acetaminophen (TYLENOL) 325 mg tablet Take 2 tablets (650 mg total) by mouth every 6 (six) hours. 30 tablet 0 albuterol (PROVENTIL HFA;VENTOLIN HFA) 90 mcg/actuation inhaler Inhale 2 puffs every 4 (four) hours as needed for wheezing. 59.5 g 0 amitriptyline (ELAVIL) 10 mg tablet Take one tablet at bedtime 30 tablet 5 amLODIPine (NORVASC) 5 mg tablet Take 1 tablet (5 mg total) by mouth in the morning. Indications: high blood pressure. benzonatate (TESSALON PERLES) 100 mg capsule Take 1 capsule (100 mg total) by mouth 3 (three) times a day as needed for cough. 21 capsule 0 celecoxib (CeleBREX) 200 mg capsule Take 1 capsule (200 mg total) by mouth in the morning and 1 capsule (200 mg total) before bedtime. 30 capsule 0 cetirizine (ZyrTEC) 10 mg tablet Take 1 tablet (10 mg total) by mouth in the morning. Indications: inflammation of the nose due to an allergy. cyclobenzaprine (FLEXERIL) 10 mg tablet Take one tablet at bedtime 30 tablet 5 dicyclomine (BENTYL) 20 mg tablet Take 1 tablet (20 mg total) by mouth 3 (three) times a day Indications: irritable colon. diphenhydrAMINE (BenadryL) 25 mg capsule Take 2 capsules (50 mg total) by mouth every 6 (six) hours as needed for allergies (contrast allergy follow prep giving in Dr. office). 1 capsule 0 gabapentin (NEURONTIN) 300 mg capsule TAKE 1 CAPSULE BY MOUTH AT 8 PM 30 capsule 5 hydrOXYzine (ATARAX) 25 mg tablet Take 1 tablet (25 mg total) by mouth in the morning and 1 tablet (25 mg total) at noon and 1 tablet (25 mg total) in the evening and 1 tablet (25 mg total) before bedtime. Indications: anxious, inflammation of the skin due to an allergy. levETIRAcetam (KEPPRA) 500 mg tablet Take 1 tablet (500 mg total) by mouth in the morning and 1 tablet (500 mg total) before bedtime. seizures. ondansetron ODT (ZOFRAN ODT) 4 mg disintegrating tablet Dissolve 1 tablet (4 mg total) on tongue every 8 (eight) hours as needed for nausea for up to 10 doses. 10 tablet 0 predniSONE (DELTASONE) 50 mg tablet Take 1 tablet (50 mg total) by mouth in the morning. 3 tablet 0 predniSONE (DELTASONE) 50 mg tablet Take 1 tablet (50 mg total) by mouth in the morning. 5 tablet 0 promethazine (PHENERGAN) 12.5 mg tablet Take 1 tablet (12.5 mg total) by mouth every 4 (four) hours as needed for nausea or vomiting. 30 tablet 0 SUMAtriptan (IMITREX) 50 mg tablet Take 1 tablet (50 mg total) by mouth once as needed for migraine. May repeat in 2 hours if unresolved. Do not exceed 200 mg in 24 hours. 9 tablet 0 temazepam (RESTORIL) 30 mg capsule Take 1 capsule (30 mg total) by mouth nightly as needed for sleep Indications: difficulty sleeping. topiramate (TOPAMAX) 100 mg tablet Take 1 tablet (100 mg total) by mouth nightly Indications: migraine prevention. warfarin (COUMADIN) 10 mg tablet Take 1 tablet (10 mg total) by mouth once a week. SUNDAY warfarin (COUMADIN) 5 mg tablet Take 1 tablet (5 mg total) by mouth in the evening. Everyday but Sunday Only taking 4 mg . No current facility-administered medications for this visit. reviewed. Patient Active Problem List Diagnosis Altered mental status MSSA (methicillin susceptible Staphylococcus aureus) pneumonia ([facility]) Intractable migraine without aura and without status migrainosus Cervical spinal stenosis Neck pain with history of cervical spinal surgery Cervical stenosis (uterine cervix) Urologic disorders Headache Chronic anticoagulation Subclavian arterial stenosis Bilateral hand pain Contusion of nose, initial encounter Dizziness Subtherapeutic international normalized ratio (INR) Hypertension reviewed. Past Surgical History: Procedure Laterality Date ANKLE SURGERY Left APPENDECTOMY CHOLECYSTECTOMY HYSTERECTOMY KNEE SURGERY MANDIBLE FRACTURE SURGERY TMJ PLACMENT IVC FILTER bilateral legs POSTERIOR FUSION CERVICAL MULTI LEVEL / C4-T1 AND DISCECTOMY N/A 11/03/2022 Performed by Amol Valenzuela MD at [facility] left arm/wrist reviewed. Social History Tobacco Use Smoking status: Never Smokeless tobacco: Never Vaping Use Vaping status: Never Used Substance Use Topics Alcohol use: No Comment: special occasions Drug use: No reviewed. Past Medical History: Diagnosis Date Asthma Clotting disorder ([facility]) protien S deficiency Deep vein thrombosis ([facility]) Diverticulitis of colon Endometriosis H/O protein S deficiency Headache Headache 02/28/2023 Hypertension IBS (irritable bowel syndrome) MRSA (methicillin resistant Staphylococcus aureus) Seizures ([facility]) Sleep apnea Stroke ([facility]) Syncope 1994, 2011 reviewed. Social History Social History Narrative Merged History Encounter reviewed Family History Problem Relation Age of Onset Kidney disease Mother Cancer Father reviewed. Allergies Allergen Reactions Baclofen Anaphylaxis Other Reaction(s): mental confusion Cefdinir Hives Clindamycin Hives Compazine [Prochlorperazine] Iodinated Contrast Media Morphine Itching Pt. Had in the recent hospitalization and no longer had itching. reviewed. The following portions of the patient's history were reviewed and updated as appropriate: allergies, current medications, past family history, past medical history, past social history, past surgical history and problem list. REVIEW OF SYSTEMS: CONSTITUTIONAL: Admits: [] Weight Loss [] Fever [x] Frequent Night Sweats [x]Fatigue: Started in May 2023, OPHTHALMOLOGIC: Admits: [] Glaucoma [] History or Current Inflammatory Eye Disease [] Cataracts ENT: Admits: [] Oral/Nasal Ulcers [] epistaxis [] Recurrent Sinusitis [] Dry Eyes [x] Dry mouth CARDIOVASCULAR: Admits: [] Chest pain [] Pericarditis/Pleuritis [] Palpitations [x] Edema RESPIRATORY: Admits: [] hemoptysis [] Dyspnea on Exertion [] Cough [] Wheezing GASTROINTESTINAL: Admits: [x] Bloody Stool [] Diarrhea [] Vomitting GENITOURINARY: Admits: [] Blood in urine [] Genital Ulcers [] Burning/pain with urination MUSCULOSKELETAL: Admits: [x] Muscle Pain [x] Joint Pain INTEGUMENTARY: Admits: [x] Skin changes: discoloration [] Sclerodactyly [x] Raynauds [] Photosensitivity [] Alopecia NEUROLOGIC: Admits: [x] Recurrent Headaches [x] Limb Weakness [x] Numbness/Tingling PSYCHIATRIC: Admits: [x] Insomnia: difficulty falling asleep and staying asleep, flexeril and elavil is not helping much with sleep [] Depression [] Anxiety ENDOCRINE: Admits: [] Thyroid abnormalities HEMATOLOGY/LYMPH: Admits: [x] Notable Swollen Lymph Nodes [x] History of Cytopenias: low platelet on one occasion [x] Bruising tendency [x] History of DVT/PE : legs- protein S Def Miscarriages- at 5 months All non checked boxes, patient denies. All other 10 point ROS reviewed and negative. PHYSICAL EXAMINATION: Constitutional: There were no vitals taken for this visit.: reviewed Comfortable, pleasant, no acute distress Eyes: Conjunctiva clear and moist, eyelids without lesions. Extraocular movements fully intact. Ears/Nose/Mouth/Throat: External inspection of ears/nose is normal - no scars, lesions, masses No oral ulcers or lesions on mucosa of inner mouth, tongue. Neck: Symmetrical, tongue midline, no masses, no lymphadenopathy, no thyromegaly Respiratory: Inspiratory and expiratory effort normal. Clear to auscultation bilaterally. No crackles or wheezes. Cardiovascular: Palpation of heart reveals normal PMI. Auscultation: regular rate rhythm, no murmurs/rubs/gallops. Carotid arteries symmetric and 2+. No edema of extremities Gastrointestinal: Soft, nontender, bowel sounds in all quadrants. No hepatosplenomegaly on palpation. Lymphatic: No lymphadenopathy in neck Neurologic: Facial muscles symmetric and of normal strength. Tongue is midline. Dermatologic: Inspection and palpation of skin and subcutaneous tissue of all four extremities without rashes Nailfold capillary exam normal Psychiatric: Normal affect. Judgement/insight intact. Musculoskeletal: bilateral tender trigger points, no obvious synovitis Neck: Full ROM. no swelling, No tenderness, Shoulder: Bilateral full active ROM. no swelling, No tenderness, Elbows: Full ROM. no swelling, No tenderness, Wrists: Full ROM. no swelling, No tenderness, Hands: Bilateral hands show dry cracked skin with erythematous palmar surface , no obvious synovitis Hips: Normal ROM. No swelling, No tenderness, Knees: Normal ROM, no swelling, No tenderness, Feet: Full ROM. no swelling, No tenderness, Ankles: Normal ROM,no swelling, No tenderness, Spine: no tenderness throughout spine, no sacroiliac joint tenderness Physical Exam Labs & Imaging: Labs and Imaging reviewed and discussed with the patient during the visit. Lab Results Component Value Date C3 159 12/25/2023 C4 49 (H) 12/25/2023 Lab Results Component Value Date WBC 5.3 04/24/2024 HGB 11.2 (L) 04/24/2024 HCT 33.9 (L) 04/24/2024 MCV 96 04/24/2024 PLT 261 04/24/2024 Lab Results Component Value Date CREATININE 0.75 04/24/2024 BUN 17 04/24/2024 K 3.9 04/24/2024 CL 106 04/24/2024 CO2 22 04/24/2024 Lab Results Component Value Date ALT 16 04/24/2024 AST 22 04/24/2024 ALKPHOS 105 04/24/2024 Lab Results Component Value Date SEDRATE 53 (H) 12/25/2023 Lab Results Component Value Date CRP 1.0 (H) 12/25/2023 Vas venous duplex upr single left Result Date: 09/07/2023 Narrative: Right: Subclavian vein with spontaneous phasic spectral Doppler waveforms. Left: Internal jugular, axillary, brachial deep veins are compressible. Spontaneous phasic spectral Doppler waveforms in all deep veins including subclavian. Superficial veins are compressible. Conclusions: No evidence of deep (internal jugular, subclavian, axillary, brachial) or superficial thrombosis of the left upper extremity. No evidence of deep vein thrombosis (DVT) of the right subclavian vein. CT angiogram chest Result Date: 09/07/2023 Narrative: [place] [address] CT Scan Report Signed Patient: FEROZ DUTTA MR#: [id number] : 1960 Acct:[id number] Age/Sex: 62 / F ADM Date: 09/06/23 Loc: CT Attending Dr: Liset Hutson M.D. Ordering Physician: Liset Hutson M.D. Date of Service: 09/06/23 Procedure(s): CT angio chest Accession Number(s): [id number] cc: Ezekiel Cheney M.D. [place] [address] Patient Name: FEROZ DUTTA MRN: [id number] date: 1960 Sex: F Assigned Patient Location: CT Current Patient Location: Accession/Order Number: [id number] Exam Date: 09/06/2023 09:40 Report Date: 09/07/2023 10:37 At the request of: LISET HUTSON Procedure: CT angio chest EXAMINATION: CT angio chest HISTORY: Aortic Atherosclerosis, Peripheral Artery Disease I73.9 COMPARISON: No relevant comparison available. TECHNIQUE: Multi-planar CT images were created with IV contrast. Axial, Coronal, and Sagittal images. Dose reduction techniques were achieved by using automated exposure control and/or adjustment of mA and/or kV according to patient size and/or use of iterative reconstruction technique. FINDINGS: LUNGS: No visible pulmonary disease. PLEURA: No mass, effusion, or pneumothorax. VASCULATURE: Normal postcontrast opacification of the central pulmonary arterial tree with no filling defects to suggest a pulmonary embolus CATE: No mass or adenopathy. MEDIASTINUM: No mass or adenopathy. CARDIAC: No enlargement, pericardial thickening, or significant calcification. AORTA: No aneurysm or dissection. CHEST WALL: No mass or axillary adenopathy. BONES: No bone lesion or fracture. Anterior posterior cervical fusion LIMITED ABDOMEN: Multiple surgical clips the gallbladder fossa likely from prior cholecystectomy. IVC filter partially visualized OTHER: Negative. CT/CT angio chest IMPRESSION: No aortic aneurysm or dissection No central pulmonary thromboembolic disease Electronically authenticated by: TATIANA SALINAS Date: 09/07/2023 10:37 Dictated By: Tatiana Salinas M.D. Signed By: 09/07/23 1039 DD/ 1037 TD/TT: Fire Hazard Inspector: ASSESSMENT/PLAN: Feroz Dutta is a 63 y.o. female patient with a history of protein C deficiency, on Coumadin who presents for evaluation of M79.641, M79.642 (ICD-10-CM) - Bilateral hand pain . Patient established care with me on 09/19/2023 ICD-10-CM 1. Fibromyalgia M79.7 2. Medication monitoring encounter Z51.81 3. Bilateral hand pain M79.641 M79.642 Orders Placed This Encounter Procedures X-ray hand left minimum 3 views Standing Status: Future Expected Date: 11/04/2024 Expiration Date: 11/04/2025 Reason for Exam:: Eval OA vs inflammatory arthritis like RA, crystal disease Release to patient via MyChart?: Immediate [1] X-ray hand right minimum 3 views Standing Status: Future Expected Date: 11/04/2024 Expiration Date: 11/04/2025 Reason for Exam:: Evaluate for OA changes versus inflammatory changes such as RA, or crystal disease Release to patient via MyChart?: Immediate [1] Creatinine includes GFR, serum Standing Status: Future Expected Date: 02/04/2025 Expiration Date: 11/04/2025 Release to patient via MyChart?: Immediate [1] Overall impression and plan I explained to patient that there is no evidence of synovitis/synovial hypertrophy during today's exam. Based on history, and clinical exam the likelihood of inflammatory arthritis/or systemic autoimmune disorder is low at this time. Because her ROS was positive for Raynaud's, dry mouth and one miscarriage at 5 months , I would like to order some immunological tests today Her liver enzymes are normal, lab results discussed with patient Patient is on Coumadin, counseled her about interaction of Coumadin with Celebrex and informed her of increased bleeding risk #Elevated ESR Her ESR is elevated at 53 from 12/25/2023 , CRP is mildly elevated. I explained to her that these are nonspecific inflammatory markers that can be elevated due to various reasons. On examination she was able to make the fist comfortably, she does report some hand pain. I would like to repeat the labs in 2 weeks to see the trend if it is going up or down. I also noted elevated liver enzymes since February 2023 and not noted that she has seen GI, consider GI referral: She did not get the labs done during last visit, I recommended her to get the inflammatory markers as well as liver enzymes done today to see they are trending. I will plan further based on the lab results #Fibromyalgia The patient has widespread pain, on both sides of the body, above and below the waist. Patient has multiple associated symptoms with fibromyalgia that include chronic fatigue, chronic sleep disturbances, cognitive disturbances, paresthesia I spent time counseling the patient on fibromyalgia. I explained to the patient that fibromyalgia is a disorder characterized by widespread musculoskeletal pain, accompanied by fatigue, sleep, memory in mood issues. In general it is thought that fibromyalgia symptoms are secondary to overactive nerves, which amplify painful sensations by the way the brain processes the pain signals. I told the patient on functional brain MRIs, we have also seen that fibromyalgia patients have increased blood flow to the somatosensory cortex. I told the patient the good news, is that this syndrome cannot cause any organ dysfunction, and does not lead to accelerated osteoarthritis. Unfortunately, the bad news, is that it can disrupt quality of the life significantly. Main stays of treatment include the following -daily relaxing exercise, start with 10-15 minutes a day and slowly build up -good sleep hygiene -avoid alcohol, cigarettes -practice eating mostly whole foods plant based diet -5-10 minutes of meditation daily -stress management -plan relaxing activities with family and friends #osteoarthritis Explained to the patient that they have osteoarthritis, also synonymous with degenerative arthritis. I explained to them, that this type of arthritis, the cartilage, which is a rubbery material that protect the joints, wears away, which can lead to joint pain, and bone spurs. I told patient, this is the type of arthritis everyone gets, at some point in their life, and the severity can be mild to severe depending on the patient. Wear and tear , previous joint/tendon/ligament injuries, extra weight, genetics, all play a role in osteoarthritis. Explained to the patient, that there are no medications that can reverse cartilage loss. I explained that Maintaining a normal weight, exercise, joint and muscle strengthening, are the best things to help stabilize arthritis. # hand osteoarthritis Provided patient instruction in joint protection techniques: respect pain, balance rest and activity, participate in exercise or activity to maintain strength and range of motion, Discussed the use of thermal agents for relief of pain and stiffness Suggested the use of compression gloves Tylenol 1000 mg TID as needed Voltaren gel is an option Other topical creams to try include Yung-Cannon, Biofreeze Consider buying a paraffin wax kit Discussed pros and cons of steroid injections Treatment - continue elavil 20 mg at bedtime - continue Gabapentin 300 mg at bedtime - Flexeril 10 mg at bedtime - Celebrex only as needed: she is on blood thinners, explained to her that there is a potential to increased risk of bleeding when taken together I have given her 2 weeks supply for increasing thumb pain # medication counseling encounter NSAID potential side effects potential side effects of NSAID's including abnormal kidney function, gastrointestinal pain/heartburn/nausea, potential for gastritis/gastric ulcer with chronic use, tinnitus, rash, increase risk of cardiac events Referral None today Follow up 5-6 months Total time spent with the patient face to face was 20 minutes which included obtaining and reviewing history, performing an exam, educating and counseling the patient, communicating test results to the patient. Preparing to see the patient (reviewing all results, history, medications, my office notes, other physician notes), ordering tests/medications/referrals, documenting in the patient's health record time spent was 10 minutes This note was created with the assistance of a speech recognition program. While intending to generate a timely document that accurately reflects the content of the visit, no guarantee can be provided that every grammatical or spelling mistake has been or will be identified or corrected. Thank you for your understanding. [facility] Suik Callahan PA-C [address] [place] [address] Office [phone] MAGNO Pearce 09/19/23 1250 MAGNO Pearce 12/27/23 1017 MAGNO Pearce 04/09/24 1537 MAGNO Pearce 04/18/24 0938 MAGNO Pearce 11/04/24 1314 documented in this encounter [facility] 04-18-2024 History of Present illness Narrative Images from the original note were not included. [address] [id number] Date of Service: 04/18/2024 This is a new patient and is seen at the request of EZEKIEL CHENEY MD. Chief Complaint: Hands and armpit pain SUBJECTIVE: Feroz Dutta is a 63 y.o. female with protein C deficiency on Coumadin who presents today for evaluation of M79.641, M79.642 (ICD-10-CM) - Bilateral hand pain . This visit was to go over the lab results and to review medication response No significant change in health history Visit history from 04/09/24 Feroz Dutta is a 63 y.o. female with protein C deficiency on Coumadin who presents today for evaluation of M79.641, M79.642 (ICD-10-CM) - Bilateral hand pain . Fibromyalgia symptoms are stable on amitriptyline, Flexeril, gabapentin New symptoms: Hand swelling at night since last two weeks , no other joints bother her Moving around helps with swelling and stiffness. She reports excessive drying of her skin in hands especially in palmar region, excessive redness and cracking of skin. Denies any injury or trauma to her hands In summer of 2022 she did have episodes of elevated liver enzyme and on further questioning she admitted to gastritis and being in the hospital for the same. She has had gallbladder surgery several years ago. Her liver enzymes started trending down by February 2023. Currently she denies any gastrointestinal symptoms. Visit history from 12/27/2023 Fibromyalgia symptoms are stable Elavil 10 mg, gabapentin 300 mg Flexeril 10 mg at bedtime are helping with fibromyalgia symptoms She is tolerating all these medications well without any side effects She had ankle fracture on 12/22/2023 which being treated by orthopedics at [facility] Labs were ordered for her during her last visit in September 13, 2023: Rheumatoid factor, CCP, JEISON, complement, janna panel, antiphospholipid antibodies, ANCA were negative/normal. Her ESR came elevated at 53 while CRP was mildly elevated at 1 Of note her liver enzymes alkaline phosphatase, AST, ALT have been elevated since March 14, 2023 Visit history from 09/19/2023 Freoz Dutta is a 63 y.o. female with protein C deficiency on Coumadin who presents today for evaluation of M79.641, M79.642 (ICD-10-CM) - Bilateral hand pain . This episode started in June 2023 with sharp pain underneath her right armpit. Eventually it did involve left armpit but not as severe as on the right. She describes these pain sensations as burning sensations going down her arms. She also thinks her right upper arm is swollen. Her hands and heels also feel swollen. She has had chronic aches and pains in the past but has not had any flares for several years until this particular episode. She has been comprehensively evaluated by vascular surgery by Dr. Liset Hutson for arterial and venous occlusive disease. She had ultrasound and CT angiogram which were normal. He referred her to our office for concerns of rheumatological disorder. Previous/current meds Flexeril-- to help her with pain Elavil -- to help with pain Denies personal or family history of psoriasis, rheumatoid arthri, lupus. Dad did have history of gout Current Outpatient Medications Medication Sig Dispense Refill acetaminophen (TYLENOL) 325 mg tablet Take 2 tablets (650 mg total) by mouth every 6 (six) hours. 30 tablet 0 alendronate (FOSAMAX) 70 mg tablet Take 1 tablet (70 mg total) by mouth every 7 days. In a.m. with water on empty stomach, nothing else by mouth and remain upright for 30min (Patient not taking: Reported on 04/09/2024) amitriptyline (ELAVIL) 10 mg tablet Take one tablet at bedtime 30 tablet 2 amLODIPine (NORVASC) 5 mg tablet Take 1 tablet (5 mg total) by mouth in the morning. Indications: high blood pressure. bisacodyL (DULCOLAX) 5 mg EC tablet Take 1 tablet (5 mg total) by mouth daily as needed for constipation. 30 tablet 0 celecoxib (CeleBREX) 200 mg capsule Take 1 capsule (200 mg total) by mouth in the morning and 1 capsule (200 mg total) before bedtime. 60 capsule 2 cetirizine (ZyrTEC) 10 mg tablet Take 1 tablet (10 mg total) by mouth in the morning. Indications: inflammation of the nose due to an allergy. (Patient not taking: Reported on 04/09/2024) cyclobenzaprine (FLEXERIL) 10 mg tablet Take one tablet at bedtime 30 tablet 2 dextromethorphan-guaiFENesin (ROBITUSSIN-DM) 10-100 mg/5 mL liquid Take 5 mL by mouth every 4 (four) hours as needed for cough. (Patient not taking: Reported on 04/09/2024) 236 mL 5 dicyclomine (BENTYL) 20 mg tablet Take 1 tablet (20 mg total) by mouth 3 (three) times a day Indications: irritable colon. (Patient not taking: Reported on 04/09/2024) diphenhydrAMINE (BenadryL) 25 mg capsule Take 2 capsules (50 mg total) by mouth every 6 (six) hours as needed for allergies (contrast allergy follow prep giving in Dr. office). 1 capsule 0 gabapentin (NEURONTIN) 300 mg capsule TAKE 1 CAPSULE BY MOUTH AT 8 PM 30 capsule 2 hydrOXYzine (ATARAX) 25 mg tablet Take 1 tablet (25 mg total) by mouth in the morning and 1 tablet (25 mg total) at noon and 1 tablet (25 mg total) in the evening and 1 tablet (25 mg total) before bedtime. Indications: anxious, inflammation of the skin due to an allergy. levETIRAcetam (KEPPRA) 500 mg tablet Take 1 tablet (500 mg total) by mouth in the morning and 1 tablet (500 mg total) before bedtime. seizures. (Patient not taking: Reported on 04/09/2024) pantoprazole (PROTONIX) 40 mg EC tablet Take 1 tablet (40 mg total) by mouth in the morning. Indications: gastroesophageal reflux disease. (Patient not taking: Reported on 04/09/2024) predniSONE (DELTASONE) 50 mg tablet Take 1 tablet (50 mg total) by mouth in the morning. (Patient not taking: Reported on 04/09/2024) 3 tablet 0 predniSONE (DELTASONE) 50 mg tablet Take 1 tablet (50 mg total) by mouth 3 (three) times a day. (Patient not taking: Reported on 04/09/2024) 3 tablet 0 promethazine (PHENERGAN) 12.5 mg tablet Take 1 tablet (12.5 mg total) by mouth every 4 (four) hours as needed for nausea or vomiting. 30 tablet 0 sucralfate (CARAFATE) 1 gram tablet Take 1 tablet (1 g total) by mouth in the morning and 1 tablet (1 g total) at noon and 1 tablet (1 g total) in the evening and 1 tablet (1 g total) before bedtime. Indications: gastroesophageal reflux disease. (Patient not taking: Reported on 04/09/2024) temazepam (RESTORIL) 30 mg capsule Take 1 capsule (30 mg total) by mouth nightly as needed for sleep Indications: difficulty sleeping. topiramate (TOPAMAX) 100 mg tablet Take 1 tablet (100 mg total) by mouth nightly Indications: migraine prevention. (Patient not taking: Reported on 04/09/2024) warfarin (COUMADIN) 10 mg tablet Take 1 tablet (10 mg total) by mouth once a week. SUNDAY (Patient not taking: Reported on 04/09/2024) warfarin (COUMADIN) 5 mg tablet Take 1 tablet (5 mg total) by mouth in the evening. Everyday but sunday. (Patient taking differently: Take 1 tablet (5 mg total) by mouth in the evening. Everyday but Sunday Only taking 4 mg .) No current facility-administered medications for this visit. reviewed. Patient Active Problem List Diagnosis Altered mental status MSSA (methicillin susceptible Staphylococcus aureus) pneumonia ([facility]) Intractable migraine without aura and without status migrainosus Cervical spinal stenosis Neck pain with history of cervical spinal surgery Cervical stenosis (uterine cervix) Urologic disorders Headache Chronic anticoagulation Subclavian arterial stenosis ([facility]) Bilateral hand pain reviewed. Past Surgical History: Procedure Laterality Date ANKLE SURGERY Left APPENDECTOMY CHOLECYSTECTOMY HYSTERECTOMY KNEE SURGERY MANDIBLE FRACTURE SURGERY TMJ PLACMENT IVC FILTER bilateral legs POSTERIOR FUSION CERVICAL MULTI LEVEL / C4-T1 AND DISCECTOMY N/A 11/03/2022 Performed by Amol Valenzuela MD at [facility] left arm/wrist reviewed. Social History Tobacco Use Smoking status: Never Smokeless tobacco: Never Vaping Use Vaping status: Never Used Substance Use Topics Alcohol use: No Comment: special occasions Drug use: No reviewed. Past Medical History: Diagnosis Date Asthma Clotting disorder ([facility]) protien S deficiency Deep vein thrombosis ([facility]) Diverticulitis of colon Endometriosis H/O protein S deficiency Headache Headache 02/28/2023 Hypertension IBS (irritable bowel syndrome) MRSA (methicillin resistant Staphylococcus aureus) Seizures ([facility]) Sleep apnea Stroke ([facility]) Syncope 1994, 2011 reviewed. Social History Social History Narrative Merged History Encounter reviewed Family History Problem Relation Age of Onset Kidney disease Mother Cancer Father reviewed. Allergies Allergen Reactions Baclofen Anaphylaxis Other Reaction(s): mental confusion Cefdinir Hives Clindamycin Hives Compazine [Prochlorperazine] Iodinated Contrast Media Morphine Itching Pt. Had in the recent hospitalization and no longer had itching. reviewed. The following portions of the patient's history were reviewed and updated as appropriate: allergies, current medications, past family history, past medical history, past social history, past surgical history and problem list. REVIEW OF SYSTEMS: CONSTITUTIONAL: Admits: [] Weight Loss [] Fever [x] Frequent Night Sweats [x]Fatigue: Started in May 2023, OPHTHALMOLOGIC: Admits: [] Glaucoma [] History or Current Inflammatory Eye Disease [] Cataracts ENT: Admits: [] Oral/Nasal Ulcers [] epistaxis [] Recurrent Sinusitis [] Dry Eyes [x] Dry mouth CARDIOVASCULAR: Admits: [] Chest pain [] Pericarditis/Pleuritis [] Palpitations [x] Edema RESPIRATORY: Admits: [] hemoptysis [] Dyspnea on Exertion [] Cough [] Wheezing GASTROINTESTINAL: Admits: [x] Bloody Stool [] Diarrhea [] Vomitting GENITOURINARY: Admits: [] Blood in urine [] Genital Ulcers [] Burning/pain with urination MUSCULOSKELETAL: Admits: [x] Muscle Pain [x] Joint Pain INTEGUMENTARY: Admits: [x] Skin changes: discoloration [] Sclerodactyly [x] Raynauds [] Photosensitivity [] Alopecia NEUROLOGIC: Admits: [x] Recurrent Headaches [x] Limb Weakness [x] Numbness/Tingling PSYCHIATRIC: Admits: [x] Insomnia: difficulty falling asleep and staying asleep, flexeril and elavil is not helping much with sleep [] Depression [] Anxiety ENDOCRINE: Admits: [] Thyroid abnormalities HEMATOLOGY/LYMPH: Admits: [x] Notable Swollen Lymph Nodes [x] History of Cytopenias: low platelet on one occasion [x] Bruising tendency [x] History of DVT/PE : legs- protein S Def Miscarriages- at 5 months All non checked boxes, patient denies. All other 10 point ROS reviewed and negative. PHYSICAL EXAMINATION: Constitutional: There were no vitals taken for this visit.: reviewed Comfortable, pleasant, no acute distress Eyes: Conjunctiva clear and moist, eyelids without lesions. Extraocular movements fully intact. Ears/Nose/Mouth/Throat: External inspection of ears/nose is normal - no scars, lesions, masses No oral ulcers or lesions on mucosa of inner mouth, tongue. Neck: Symmetrical, tongue midline, no masses, no lymphadenopathy, no thyromegaly Respiratory: Inspiratory and expiratory effort normal. Clear to auscultation bilaterally. No crackles or wheezes. Cardiovascular: Palpation of heart reveals normal PMI. Auscultation: regular rate rhythm, no murmurs/rubs/gallops. Carotid arteries symmetric and 2+. No edema of extremities Gastrointestinal: Soft, nontender, bowel sounds in all quadrants. No hepatosplenomegaly on palpation. Lymphatic: No lymphadenopathy in neck Neurologic: Facial muscles symmetric and of normal strength. Tongue is midline. Dermatologic: Inspection and palpation of skin and subcutaneous tissue of all four extremities without rashes Nailfold capillary exam normal Psychiatric: Normal affect. Judgement/insight intact. Musculoskeletal: bilateral tender trigger points, no obvious synovitis Neck: Full ROM. no swelling, No tenderness, Shoulder: Bilateral full active ROM. no swelling, No tenderness, Elbows: Full ROM. no swelling, No tenderness, Wrists: Full ROM. no swelling, No tenderness, Hands: Bilateral hands show dry cracked skin with erythematous palmar surface , no obvious synovitis Hips: Normal ROM. No swelling, No tenderness, Knees: Normal ROM, no swelling, No tenderness, Feet: Full ROM. no swelling, No tenderness, Ankles: Normal ROM,no swelling, No tenderness, Spine: no tenderness throughout spine, no sacroiliac joint tenderness Physical Exam Labs & Imaging: Labs and Imaging reviewed and discussed with the patient during the visit. Lab Results Component Value Date C3 159 12/25/2023 C4 49 (H) 12/25/2023 Lab Results Component Value Date WBC 8.6 12/25/2023 HGB 12.0 12/25/2023 HCT 36.7 12/25/2023 MCV 97 12/25/2023 PLT 267 12/25/2023 Lab Results Component Value Date CREATININE 0.80 03/03/2023 BUN 18 03/03/2023 K 4.2 03/03/2023 CL 106 03/03/2023 CO2 23 03/03/2023 Lab Results Component Value Date ALT 18 04/17/2024 AST 29 04/17/2024 ALKPHOS 177 (H) 03/03/2023 Lab Results Component Value Date SEDRATE 53 (H) 12/25/2023 Lab Results Component Value Date CRP 1.0 (H) 12/25/2023 Vas venous duplex upr single left Result Date: 09/07/2023 Narrative: Right: Subclavian vein with spontaneous phasic spectral Doppler waveforms. Left: Internal jugular, axillary, brachial deep veins are compressible. Spontaneous phasic spectral Doppler waveforms in all deep veins including subclavian. Superficial veins are compressible. Conclusions: No evidence of deep (internal jugular, subclavian, axillary, brachial) or superficial thrombosis of the left upper extremity. No evidence of deep vein thrombosis (DVT) of the right subclavian vein. CT angiogram chest Result Date: 09/07/2023 Narrative: The [address] [address] [address] Scan Report Signed Patient: FEROZ DUTTA MR#: [id number] : 1960 Acct:[id number] Age/Sex: 62 / F ADM Date: 09/06/23 Loc: CT Attending Dr: Liset Hutson M.D. Ordering Physician: Liset Hutson M.D. Date of Service: 09/06/23 Procedure(s): CT angio chest Accession Number(s): [id number] cc: Ezekiel Cheney M.D. [address] [address] Patient Name: FEROZ DUTTA MRN: [id number] date: 1960 Sex: F Assigned Patient Location: CT Current Patient Location: Accession/Order Number: [id number] Exam Date: 09/06/2023 09:40 Report Date: 09/07/2023 10:37 At the request of: LISET HUTSON Procedure: CT angio chest EXAMINATION: CT angio chest HISTORY: Aortic Atherosclerosis, Peripheral Artery Disease I73.9 COMPARISON: No relevant comparison available. TECHNIQUE: Multi-planar CT images were created with IV contrast. Axial, Coronal, and Sagittal images. Dose reduction techniques were achieved by using automated exposure control and/or adjustment of mA and/or kV according to patient size and/or use of iterative reconstruction technique. FINDINGS: LUNGS: No visible pulmonary disease. PLEURA: No mass, effusion, or pneumothorax. VASCULATURE: Normal postcontrast opacification of the central pulmonary arterial tree with no filling defects to suggest a pulmonary embolus CATE: No mass or adenopathy. MEDIASTINUM: No mass or adenopathy. CARDIAC: No enlargement, pericardial thickening, or significant calcification. AORTA: No aneurysm or dissection. CHEST WALL: No mass or axillary adenopathy. BONES: No bone lesion or fracture. Anterior posterior cervical fusion LIMITED ABDOMEN: Multiple surgical clips the gallbladder fossa likely from prior cholecystectomy. IVC filter partially visualized OTHER: Negative. CT/CT angio chest IMPRESSION: No aortic aneurysm or dissection No central pulmonary thromboembolic disease Electronically authenticated by: TATIANA SALINAS Date: 09/07/2023 10:37 Dictated By: Tatiana Salinas M.D. Signed By: 09/07/23 1039 DD/ 1037 TD/TT: Fire Hazard Inspector: ASSESSMENT/PLAN: Feroz Dutta is a 63 y.o. female patient with a history of protein C deficiency, on Coumadin who presents for evaluation of M79.641, M79.642 (ICD-10-CM) - Bilateral hand pain . Patient established care with me on 09/19/2023 No diagnosis found. No orders of the defined types were placed in this encounter. Overall impression and plan I explained to patient that there is no evidence of synovitis/synovial hypertrophy during today's exam. Based on history, and clinical exam the likelihood of inflammatory arthritis/or systemic autoimmune disorder is low at this time. Because her ROS was positive for Raynaud's, dry mouth and one miscarriage at 5 months , I would like to order some immunological tests today Her liver enzymes are normal, lab results discussed with patient Patient is on Coumadin, counseled her about interaction of Coumadin with Celebrex and informed her of increased bleeding risk #Elevated ESR Her ESR is elevated at 53 from 12/25/2023 , CRP is mildly elevated. I explained to her that these are nonspecific inflammatory markers that can be elevated due to various reasons. On examination she was able to make the fist comfortably, she does report some hand pain. I would like to repeat the labs in 2 weeks to see the trend if it is going up or down. I also noted elevated liver enzymes since February 2023 and not noted that she has seen GI, consider GI referral: She did not get the labs done during last visit, I recommended her to get the inflammatory markers as well as liver enzymes done today to see they are trending. I will plan further based on the lab results #Fibromyalgia The patient has widespread pain, on both sides of the body, above and below the waist. Patient has multiple associated symptoms with fibromyalgia that include chronic fatigue, chronic sleep disturbances, cognitive disturbances, paresthesia I spent time counseling the patient on fibromyalgia. I explained to the patient that fibromyalgia is a disorder characterized by widespread musculoskeletal pain, accompanied by fatigue, sleep, memory in mood issues. In general it is thought that fibromyalgia symptoms are secondary to overactive nerves, which amplify painful sensations by the way the brain processes the pain signals. I told the patient on functional brain MRIs, we have also seen that fibromyalgia patients have increased blood flow to the somatosensory cortex. I told the patient the good news, is that this syndrome cannot cause any organ dysfunction, and does not lead to accelerated osteoarthritis. Unfortunately, the bad news, is that it can disrupt quality of the life significantly. Main stays of treatment include the following -daily relaxing exercise, start with 10-15 minutes a day and slowly build up -good sleep hygiene -avoid alcohol, cigarettes -practice eating mostly whole foods plant based diet -5-10 minutes of meditation daily -stress management -plan relaxing activities with family and friends #osteoarthritis Explained to the patient that they have osteoarthritis, also synonymous with degenerative arthritis. I explained to them, that this type of arthritis, the cartilage, which is a rubbery material that protect the joints, wears away, which can lead to joint pain, and bone spurs. I told patient, this is the type of arthritis everyone gets, at some point in their life, and the severity can be mild to severe depending on the patient. Wear and tear , previous joint/tendon/ligament injuries, extra weight, genetics, all play a role in osteoarthritis. Explained to the patient, that there are no medications that can reverse cartilage loss. I explained that Maintaining a normal weight, exercise, joint and muscle strengthening, are the best things to help stabilize arthritis. # hand osteoarthritis Provided patient instruction in joint protection techniques: respect pain, balance rest and activity, participate in exercise or activity to maintain strength and range of motion, Discussed the use of thermal agents for relief of pain and stiffness Suggested the use of compression gloves Tylenol 1000 mg TID as needed Voltaren gel is an option Other topical creams to try include Yung-Cannon, Biofreeze Consider buying a paraffin wax kit Discussed pros and cons of steroid injections Treatment - continue elavil 20 mg at bedtime - continue Gabapentin 300 mg at bedtime - Flexeril 10 mg at bedtime - Celebrex only as needed # medication counseling encounter NSAID potential side effects potential side effects of NSAID's including abnormal kidney function, gastrointestinal pain/heartburn/nausea, potential for gastritis/gastric ulcer with chronic use, tinnitus, rash, increase risk of cardiac events Referral None today Follow up 10-11 weeks or sooner based on lab results Total time spent with the patient face to face was 15 minutes which included obtaining and reviewing history, performing an exam, educating and counseling the patient, communicating test results to the patient. Preparing to see the patient (reviewing all results, history, medications, my office notes, other physician notes), ordering tests/medications/referrals, documenting in the patient's health record time spent was 10 minutes This note was created with the assistance of a speech recognition program. While intending to generate a timely document that accurately reflects the content of the visit, no guarantee can be provided that every grammatical or spelling mistake has been or will be identified or corrected. Thank you for your understanding. [facility] Suki Callahan PA-C [address] [address] Office [phone] MAGNO Pearce 09/19/23 1250 MAGNO Pearce 12/27/23 1017 MAGNO Pearce 04/09/24 1537 MAGNO Pearce 04/18/24 0938 documented in this encounter [facility] 04-09-2024 History of Present illness Narrative Images from the original note were not included. [address] [facility] [address] [facility] [id number] Date of Service: 04/09/2024 This is a new patient and is seen at the request of EZEKIEL CHENEY MD. Chief Complaint: Hands and armpit pain SUBJECTIVE: Feroz Dutta is a 63 y.o. female with protein C deficiency on Coumadin who presents today for evaluation of M79.641, M79.642 (ICD-10-CM) - Bilateral hand pain . Fibromyalgia symptoms are stable on amitriptyline, Flexeril, gabapentin New symptoms: Hand swelling at night since last two weeks , no other joints bother her Moving around helps with swelling and stiffness. She reports excessive drying of her skin in hands especially in palmar region, excessive redness and cracking of skin. Denies any injury or trauma to her hands In summer of 2022 she did have episodes of elevated liver enzyme and on further questioning she admitted to gastritis and being in the hospital for the same. She has had gallbladder surgery several years ago. Her liver enzymes started trending down by February 2023. Currently she denies any gastrointestinal symptoms. Visit history from 12/27/2023 Fibromyalgia symptoms are stable Elavil 10 mg, gabapentin 300 mg Flexeril 10 mg at bedtime are helping with fibromyalgia symptoms She is tolerating all these medications well without any side effects She had ankle fracture on 12/22/2023 which being treated by orthopedics at [facility] Labs were ordered for her during her last visit in September 13, 2023: Rheumatoid factor, CCP, JEISON, complement, janna panel, antiphospholipid antibodies, ANCA were negative/normal. Her ESR came elevated at 53 while CRP was mildly elevated at 1 Of note her liver enzymes alkaline phosphatase, AST, ALT have been elevated since March 14, 2023 Visit history from 09/19/2023 Feroz Dutta is a 63 y.o. female with protein C deficiency on Coumadin who presents today for evaluation of M79.641, M79.642 (ICD-10-CM) - Bilateral hand pain . This episode started in June 2023 with sharp pain underneath her right armpit. Eventually it did involve left armpit but not as severe as on the right. She describes these pain sensations as burning sensations going down her arms. She also thinks her right upper arm is swollen. Her hands and heels also feel swollen. She has had chronic aches and pains in the past but has not had any flares for several years until this particular episode. She has been comprehensively evaluated by vascular surgery by Dr. Liset Hutson for arterial and venous occlusive disease. She had ultrasound and CT angiogram which were normal. He referred her to our office for concerns of rheumatological disorder. Previous/current meds Flexeril-- to help her with pain Elavil -- to help with pain Denies personal or family history of psoriasis, rheumatoid arthri, lupus. Dad did have history of gout Current Outpatient Medications Medication Sig Dispense Refill acetaminophen (TYLENOL) 325 mg tablet Take 2 tablets (650 mg total) by mouth every 6 (six) hours. 30 tablet 0 amLODIPine (NORVASC) 5 mg tablet Take 1 tablet (5 mg total) by mouth in the morning. Indications: high blood pressure. bisacodyL (DULCOLAX) 5 mg EC tablet Take 1 tablet (5 mg total) by mouth daily as needed for constipation. 30 tablet 0 diphenhydrAMINE (BenadryL) 25 mg capsule Take 2 capsules (50 mg total) by mouth every 6 (six) hours as needed for allergies (contrast allergy follow prep giving in office). 1 capsule 0 hydrOXYzine (ATARAX) 25 mg tablet Take 1 tablet (25 mg total) by mouth in the morning and 1 tablet (25 mg total) at noon and 1 tablet (25 mg total) in the evening and 1 tablet (25 mg total) before bedtime. Indications: anxious, inflammation of the skin due to an allergy. promethazine (PHENERGAN) 12.5 mg tablet Take 1 tablet (12.5 mg total) by mouth every 4 (four) hours as needed for nausea or vomiting. 30 tablet 0 temazepam (RESTORIL) 30 mg capsule Take 1 capsule (30 mg total) by mouth nightly as needed for sleep Indications: difficulty sleeping. warfarin (COUMADIN) 5 mg tablet Take 1 tablet (5 mg total) by mouth in the evening. Everyday but sunday. (Patient taking differently: Take 1 tablet (5 mg total) by mouth in the evening. Everyday but Sunday Only taking 4 mg .) alendronate (FOSAMAX) 70 mg tablet Take 1 tablet (70 mg total) by mouth every 7 days. In a.m. with water on empty stomach, nothing else by mouth and remain upright for 30min (Patient not taking: Reported on 04/09/2024) amitriptyline (ELAVIL) 10 mg tablet Take one tablet at bedtime 30 tablet 2 celecoxib (CeleBREX) 200 mg capsule Take 1 capsule (200 mg total) by mouth in the morning and 1 capsule (200 mg total) before bedtime. 60 capsule 2 cetirizine (ZyrTEC) 10 mg tablet Take 1 tablet (10 mg total) by mouth in the morning. Indications: inflammation of the nose due to an allergy. (Patient not taking: Reported on 04/09/2024) cyclobenzaprine (FLEXERIL) 10 mg tablet Take one tablet at bedtime 30 tablet 2 dextromethorphan-guaiFENesin (ROBITUSSIN-DM) 10-100 mg/5 mL liquid Take 5 mL by mouth every 4 (four) hours as needed for cough. (Patient not taking: Reported on 04/09/2024) 236 mL 5 dicyclomine (BENTYL) 20 mg tablet Take 1 tablet (20 mg total) by mouth 3 (three) times a day Indications: irritable colon. (Patient not taking: Reported on 04/09/2024) gabapentin (NEURONTIN) 300 mg capsule TAKE 1 CAPSULE BY MOUTH AT 8 PM 30 capsule 2 levETIRAcetam (KEPPRA) 500 mg tablet Take 1 tablet (500 mg total) by mouth in the morning and 1 tablet (500 mg total) before bedtime. seizures. (Patient not taking: Reported on 04/09/2024) pantoprazole (PROTONIX) 40 mg EC tablet Take 1 tablet (40 mg total) by mouth in the morning. Indications: gastroesophageal reflux disease. (Patient not taking: Reported on 04/09/2024) predniSONE (DELTASONE) 50 mg tablet Take 1 tablet (50 mg total) by mouth in the morning. (Patient not taking: Reported on 04/09/2024) 3 tablet 0 predniSONE (DELTASONE) 50 mg tablet Take 1 tablet (50 mg total) by mouth 3 (three) times a day. (Patient not taking: Reported on 04/09/2024) 3 tablet 0 sucralfate (CARAFATE) 1 gram tablet Take 1 tablet (1 g total) by mouth in the morning and 1 tablet (1 g total) at noon and 1 tablet (1 g total) in the evening and 1 tablet (1 g total) before bedtime. Indications: gastroesophageal reflux disease. (Patient not taking: Reported on 04/09/2024) topiramate (TOPAMAX) 100 mg tablet Take 1 tablet (100 mg total) by mouth nightly Indications: migraine prevention. (Patient not taking: Reported on 04/09/2024) warfarin (COUMADIN) 10 mg tablet Take 1 tablet (10 mg total) by mouth once a week. SUNDAY (Patient not taking: Reported on 04/09/2024) No current facility-administered medications for this visit. reviewed. Patient Active Problem List Diagnosis Altered mental status MSSA (methicillin susceptible Staphylococcus aureus) pneumonia ([facility]) Intractable migraine without aura and without status migrainosus Cervical spinal stenosis Neck pain with history of cervical spinal surgery Cervical stenosis (uterine cervix) Urologic disorders Headache Chronic anticoagulation Subclavian arterial stenosis ([facility]) Bilateral hand pain reviewed. Past Surgical History: Procedure Laterality Date ANKLE SURGERY Left APPENDECTOMY CHOLECYSTECTOMY HYSTERECTOMY KNEE SURGERY MANDIBLE FRACTURE SURGERY TMJ PLACMENT IVC FILTER bilateral legs POSTERIOR FUSION CERVICAL MULTI LEVEL / C4-T1 AND DISCECTOMY N/A 11/03/2022 Performed by Amol Valenzuela MD at [facility] left arm/wrist reviewed. Social History Tobacco Use Smoking status: Never Smokeless tobacco: Never Vaping Use Vaping status: Never Used Substance Use Topics Alcohol use: No Comment: special occasions Drug use: No reviewed. Past Medical History: Diagnosis Date Asthma Clotting disorder ([facility]) protien S deficiency Deep vein thrombosis ([facility]) Diverticulitis of colon Endometriosis H/O protein S deficiency Headache Headache 02/28/2023 Hypertension IBS (irritable bowel syndrome) MRSA (methicillin resistant Staphylococcus aureus) Seizures ([facility]) Sleep apnea Stroke ([facility]) Syncope 1994, 2011 reviewed. Social History Social History Narrative Merged History Encounter reviewed Family History Problem Relation Age of Onset Kidney disease Mother Cancer Father reviewed. Allergies Allergen Reactions Baclofen Anaphylaxis Other Reaction(s): mental confusion Cefdinir Hives Clindamycin Hives Compazine [Prochlorperazine] Iodinated Contrast Media Morphine Itching Pt. Had in the recent hospitalization and no longer had itching. reviewed. The following portions of the patient's history were reviewed and updated as appropriate: allergies, current medications, past family history, past medical history, past social history, past surgical history and problem list. REVIEW OF SYSTEMS: CONSTITUTIONAL: Admits: [] Weight Loss [] Fever [x] Frequent Night Sweats [x]Fatigue: Started in May 2023, OPHTHALMOLOGIC: Admits: [] Glaucoma [] History or Current Inflammatory Eye Disease [] Cataracts ENT: Admits: [] Oral/Nasal Ulcers [] epistaxis [] Recurrent Sinusitis [] Dry Eyes [x] Dry mouth CARDIOVASCULAR: Admits: [] Chest pain [] Pericarditis/Pleuritis [] Palpitations [x] Edema RESPIRATORY: Admits: [] hemoptysis [] Dyspnea on Exertion [] Cough [] Wheezing GASTROINTESTINAL: Admits: [x] Bloody Stool [] Diarrhea [] Vomitting GENITOURINARY: Admits: [] Blood in urine [] Genital Ulcers [] Burning/pain with urination MUSCULOSKELETAL: Admits: [x] Muscle Pain [x] Joint Pain INTEGUMENTARY: Admits: [x] Skin changes: discoloration [] Sclerodactyly [x] Raynauds [] Photosensitivity [] Alopecia NEUROLOGIC: Admits: [x] Recurrent Headaches [x] Limb Weakness [x] Numbness/Tingling PSYCHIATRIC: Admits: [x] Insomnia: difficulty falling asleep and staying asleep, flexeril and elavil is not helping much with sleep [] Depression [] Anxiety ENDOCRINE: Admits: [] Thyroid abnormalities HEMATOLOGY/LYMPH: Admits: [x] Notable Swollen Lymph Nodes [x] History of Cytopenias: low platelet on one occasion [x] Bruising tendency [x] History of DVT/PE : legs- protein S Def Miscarriages- at 5 months All non checked boxes, patient denies. All other 10 point ROS reviewed and negative. PHYSICAL EXAMINATION: Constitutional: BP (!) 132/94 Pulse 73 Resp 16 Ht 157.5 cm (5' 2 ) Wt 55.8 kg (123 lb) BMI 22.50 kg/m : reviewed Comfortable, pleasant, no acute distress Eyes: Conjunctiva clear and moist, eyelids without lesions. Extraocular movements fully intact. Ears/Nose/Mouth/Throat: External inspection of ears/nose is normal - no scars, lesions, masses No oral ulcers or lesions on mucosa of inner mouth, tongue. Neck: Symmetrical, tongue midline, no masses, no lymphadenopathy, no thyromegaly Respiratory: Inspiratory and expiratory effort normal. Clear to auscultation bilaterally. No crackles or wheezes. Cardiovascular: Palpation of heart reveals normal PMI. Auscultation: regular rate rhythm, no murmurs/rubs/gallops. Carotid arteries symmetric and 2+. No edema of extremities Gastrointestinal: Soft, nontender, bowel sounds in all quadrants. No hepatosplenomegaly on palpation. Lymphatic: No lymphadenopathy in neck Neurologic: Facial muscles symmetric and of normal strength. Tongue is midline. Dermatologic: Inspection and palpation of skin and subcutaneous tissue of all four extremities without rashes Nailfold capillary exam normal Psychiatric: Normal affect. Judgement/insight intact. Musculoskeletal: bilateral tender trigger points, no obvious synovitis Neck: Full ROM. no swelling, No tenderness, Shoulder: Bilateral full active ROM. no swelling, No tenderness, Elbows: Full ROM. no swelling, No tenderness, Wrists: Full ROM. no swelling, No tenderness, Hands: Bilateral hands show dry cracked skin with erythematous palmar surface , no obvious synovitis Hips: Normal ROM. No swelling, No tenderness, Knees: Normal ROM, no swelling, No tenderness, Feet: Full ROM. no swelling, No tenderness, Ankles: Normal ROM,no swelling, No tenderness, Spine: no tenderness throughout spine, no sacroiliac joint tenderness Physical Exam Labs & Imaging: Labs and Imaging reviewed and discussed with the patient during the visit. Lab Results Component Value Date C3 159 12/25/2023 C4 49 (H) 12/25/2023 Lab Results Component Value Date WBC 8.6 12/25/2023 HGB 12.0 12/25/2023 HCT 36.7 12/25/2023 MCV 97 12/25/2023 PLT 267 12/25/2023 Lab Results Component Value Date CREATININE 0.80 03/03/2023 BUN 18 03/03/2023 K 4.2 03/03/2023 CL 106 03/03/2023 CO2 23 03/03/2023 Lab Results Component Value Date ALT 81 (H) 03/03/2023 AST 48 (H) 03/03/2023 ALKPHOS 177 (H) 03/03/2023 Lab Results Component Value Date SEDRATE 53 (H) 12/25/2023 Lab Results Component Value Date CRP 1.0 (H) 12/25/2023 Vas venous duplex upr single left Result Date: 09/07/2023 Narrative: Right: Subclavian vein with spontaneous phasic spectral Doppler waveforms. Left: Internal jugular, axillary, brachial deep veins are compressible. Spontaneous phasic spectral Doppler waveforms in all deep veins including subclavian. Superficial veins are compressible. Conclusions: No evidence of deep (internal jugular, subclavian, axillary, brachial) or superficial thrombosis of the left upper extremity. No evidence of deep vein thrombosis (DVT) of the right subclavian vein. CT angiogram chest Result Date: 09/07/2023 Narrative: The [address] [address] [address] Scan Report Signed Patient: FEROZ DUTTA MR#: [id number] : 1960 Acct:[id number] Age/Sex: 62 / F ADM Date: 09/06/23 Loc: CT Attending Dr: Liset Hutson M.D. Ordering Physician: Liset Hutson M.D. Date of Service: 09/06/23 Procedure(s): CT angio chest Accession Number(s): [id number] cc: Ezekiel Cheney M.D. [address] [address] Patient Name: FEROZ DUTTA MRN: [id number] date: 1960 Sex: F Assigned Patient Location: CT Current Patient Location: Accession/Order Number: [id number] Exam Date: 09/06/2023 09:40 Report Date: 09/07/2023 10:37 At the request of: LISET HUTSON Procedure: CT angio chest EXAMINATION: CT angio chest HISTORY: Aortic Atherosclerosis, Peripheral Artery Disease I73.9 COMPARISON: No relevant comparison available. TECHNIQUE: Multi-planar CT images were created with IV contrast. Axial, Coronal, and Sagittal images. Dose reduction techniques were achieved by using automated exposure control and/or adjustment of mA and/or kV according to patient size and/or use of iterative reconstruction technique. FINDINGS: LUNGS: No visible pulmonary disease. PLEURA: No mass, effusion, or pneumothorax. VASCULATURE: Normal postcontrast opacification of the central pulmonary arterial tree with no filling defects to suggest a pulmonary embolus CATE: No mass or adenopathy. MEDIASTINUM: No mass or adenopathy. CARDIAC: No enlargement, pericardial thickening, or significant calcification. AORTA: No aneurysm or dissection. CHEST WALL: No mass or axillary adenopathy. BONES: No bone lesion or fracture. Anterior posterior cervical fusion LIMITED ABDOMEN: Multiple surgical clips the gallbladder fossa likely from prior cholecystectomy. IVC filter partially visualized OTHER: Negative. CT/CT angio chest IMPRESSION: No aortic aneurysm or dissection No central pulmonary thromboembolic disease Electronically authenticated by: TATIANA SALINAS Date: 09/07/2023 10:37 Dictated By: Tatiana Salinas M.D. Signed By: 09/07/23 1039 DD/ 1037 TD/TT: Fire Hazard Inspector: ASSESSMENT/PLAN: Feroz Dutta is a 63 y.o. female patient with a history of protein C deficiency, on Coumadin who presents for evaluation of M79.641, M79.642 (ICD-10-CM) - Bilateral hand pain . Patient established care with [facility] on 09/19/2023 ICD-10-CM 1. Fibromyalgia M79.7 2. Primary osteoarthritis of both first carpometacarpal joints M18.0 3. Elevated liver enzymes R74.8 Orders Placed This Encounter Procedures Hepatic function panel Standing Status: Future Standing Expiration Date: 04/09/2025 Order Specific Question: Release to patient via j-Grabhart? Answer: Immediate [1] First appointment in 1-2 weeks video visit 11-12 weeks for med refill Overall impression and plan I explained to patient that there is no evidence of synovitis/synovial hypertrophy during today's exam. Based on history, and clinical exam the likelihood of inflammatory arthritis/or systemic autoimmune disorder is low at this time. Because her ROS was positive for Raynaud's, dry mouth and one miscarriage at 5 months , I would like to order some immunological tests today #Elevated ESR Her ESR is elevated at 53 from 12/25/2023 , CRP is mildly elevated. I explained to her that these are nonspecific inflammatory markers that can be elevated due to various reasons. On examination she was able to make the fist comfortably, she does report some hand pain. I would like to repeat the labs in 2 weeks to see the trend if it is going up or down. I also noted elevated liver enzymes since February 2023 and not noted that she has seen GI, consider GI referral: She did not get the labs done during last visit, I recommended her to get the inflammatory markers as well as liver enzymes done today to see they are trending. I will plan further based on the lab results #Fibromyalgia The patient has widespread pain, on both sides of the body, above and below the waist. Patient has multiple associated symptoms with fibromyalgia that include chronic fatigue, chronic sleep disturbances, cognitive disturbances, paresthesia I spent time counseling the patient on fibromyalgia. I explained to the patient that fibromyalgia is a disorder characterized by widespread musculoskeletal pain, accompanied by fatigue, sleep, memory in mood issues. In general it is thought that fibromyalgia symptoms are secondary to overactive nerves, which amplify painful sensations by the way the brain processes the pain signals. I told the patient on functional brain MRIs, we have also seen that fibromyalgia patients have increased blood flow to the somatosensory cortex. I told the patient the good news, is that this syndrome cannot cause any organ dysfunction, and does not lead to accelerated osteoarthritis. Unfortunately, the bad news, is that it can disrupt quality of the life significantly. Main stays of treatment include the following -daily relaxing exercise, start with 10-15 minutes a day and slowly build up -good sleep hygiene -avoid alcohol, cigarettes -practice eating mostly whole foods plant based diet -5-10 minutes of meditation daily -stress management -plan relaxing activities with family and friends #osteoarthritis Explained to the patient that they have osteoarthritis, also synonymous with degenerative arthritis. I explained to them, that this type of arthritis, the cartilage, which is a rubbery material that protect the joints, wears away, which can lead to joint pain, and bone spurs. I told patient, this is the type of arthritis everyone gets, at some point in their life, and the severity can be mild to severe depending on the patient. Wear and tear , previous joint/tendon/ligament injuries, extra weight, genetics, all play a role in osteoarthritis. Explained to the patient, that there are no medications that can reverse cartilage loss. I explained that Maintaining a normal weight, exercise, joint and muscle strengthening, are the best things to help stabilize arthritis. # hand osteoarthritis Provided patient instruction in joint protection techniques: respect pain, balance rest and activity, participate in exercise or activity to maintain strength and range of motion, Discussed the use of thermal agents for relief of pain and stiffness Suggested the use of compression gloves Tylenol 1000 mg TID as needed Voltaren gel is an option Other topical creams to try include YungUrmilaCannon, Biofreeze Consider buying a paraffin wax kit Discussed pros and cons of steroid injections Treatment - continue elavil 20 mg at bedtime - continue Gabapentin 300 mg at bedtime - Flexeril 10 mg at bedtime Referral None today Follow up 10-11 weeks or sooner based on lab results Total time spent with the patient face to face was 20 minutes which included obtaining and reviewing history, performing an exam, educating and counseling the patient, communicating test results to the patient. Preparing to see the patient (reviewing all results, history, medications, my office notes, other physician notes), ordering tests/medications/referrals, documenting in the patient's health record time spent was 10 minutes This note was created with the assistance of a speech recognition program. While intending to generate a timely document that accurately reflects the content of the visit, no guarantee can be provided that every grammatical or spelling mistake has been or will be identified or corrected. Thank you for your understanding. [facility] Suki Callahan PA-C [address] [place] [address] Office [phone] MAGNO Pearce 09/19/23 1250 MAGNO Pearce 12/27/23 1017 MAGNO Pearce 04/09/24 1537 documented in this encounter [facility] 03-11-2024 History of Present illness Narrative Images from the original note were not included. HISTORY OF PRESENT ILLNESS: FRACTURE VISIT Feroz Dutta is an 63 y.o. @ female EST PT- FX LT ANKLE - PT NOTES SHE WAS UP TO USE BATHROOM 03/09 AND ANKLE GAVE OUT-INCREASED PAIN AND SWELLING. HAS COMPLETED 2 PT VISITS, WAS SICK LAST WEEK PREVIOUS FX S/P LT ANKLE INJURY FX 12/22/23 (11WKS 3DAYS) XRAYS DONE TODAY, 03/11/24 [facility] LT ANKLE 02/01/24 [facility] XRAY LT TIB/FIB EPIC 12/25/23 XRAY LT ANKLE 12/22/23 [facility] PT [facility] 2 VISITS (02/27) PRESENTS IN ASO BRACE. PAIN LATERAL ASPECT- + SWELLING- NOTES PAIN- + LIMPING +TYLENOL/MOTRIN. + ICE PT REPORTS ANKLE WAS DOING WELL AND FELT GOOD IN THERAPY, SHE WAS NOT WEARING BRACE. MEMO: PT STATES SHE WAS WALKING AND HER ANKLE BUCKLED AND SHE FELL 12/22/23. 2ND INJURY 02/01/24 PT PT STATES SHE STEPPED ON A PIECE OF CONCRETE AND IT TIPPED OVER AND HIT HER ANKLE 02/01/24- WENT TO ER TX; XRAYS/NWB/CAST BOOT 3RD INJURY-ANKLE GAVE OUT 03/09 ALLERGIES: Allergies Allergen Reactions Baclofen Other Reaction(s): mental confusion Cefdinir Unknown Clindamycin Unknown Iodinated Contrast Media Unknown Morphine Unknown Prochlorperazine Unknown HOME MEDICATIONS: Current Outpatient Medications Medication Instructions cyclobenzaprine (FLEXERIL) 10 mg, Oral, 3 times daily PRN gabapentin (NEURONTIN) 100 mg hydrOXYzine HCl (Atarax) 25 MG tablet Oral hyoscyamine (ANASPAZ,LEVSIN) 0.125 mg, Oral, Every 4 hours PRN ibuprofen 800 mg, Oral, 3 times daily promethazine (Phenergan) 25 MG tablet promethazine 25 mg tablet temazepam (Restoril) 30 MG capsule Every 24 hours warfarin (COUMADIN) 5 mg, Oral, Daily RT Review of Systems XR ankle 3+ views left Imaging Result: AP Lateral and oblique: No acute fracture or dislocation: Previous avulsion fracture to distal tip of fibula appears well healed. No effusion Impression: No acute bony process left ankle PHYSICAL EXAM: Foot/Ankle Musculoskeletal Exam Gait Antalgic: left Inspection Left Erythema: none Edema: mild Ecchymosis: none Deformity: none Alignment: normal Palpation Left Left foot/ankle palpation is unremarkable. Increased warmth: none Masses: none Crepitus: none Tenderness: present ATFL: moderate Distal fibula: mild Peroneal tendon: mild Palpation additional comments: PROXIMAL FIBULA NOT TENDER, NO PAIN TO 5TH MT BASE OR MID FOOT. NO PAIN TO CALCANEOUS. Range of Motion Left Left foot/ankle range of motion is normal and full. Strength Left Left foot/ankle strength is normal. Peroneals are affected by pain. Strength additional comments: Pt able to dorsiflex and plantar flex without difficulty. Neurovascular Left Left foot/ankle neurovascular exam is normal. Pulses - PT: normal Posterior tibial: 2+ Capillary refill: warm and well-perfused Dorsum foot: normal Lateral foot: normal Plantar foot: normal Achilles: 2/4 Clonus: normal Special Tests Left Anterior drawer test: negative Talar tilt stress test: negative Special tests additional comments: GROSSLY STABLE. LIMITED EXAM WITH PAIN General Constitutional: appears stated age Labored breathing: no Psychiatric: normal mood and affect Neurological: oriented x3 Skin: intact Lymphadenopathy: none Procedures Orders Placed This Encounter Procedures XR ankle 3+ views left Order Specific Question: Reason for exam: Answer: PAIN ASSESSMENT: ICD-10-CM 1. Acute left ankle pain M25.572 ibuprofen 800 MG tablet 2. Closed nondisplaced fracture of lateral malleolus of left fibula with routine healing S82.65XD XR ankle 3+ views left 3. Sprain of anterior talofibular ligament of left ankle, initial encounter S93.492A ibuprofen 800 MG tablet Assessment & Plan 1. Left ankle pain, likely recurrent sprain, left ankle. Her previous avulsion fracture appears well healed. I do not appreciate a new fracture. Patient was ambulating without her brace when she rerolled her ankle in the middle of the night. Patient admits that she was feeling good prior to this injury and is already 11 weeks out or more from her prior injury. It is recommended that she return to her boot as symptoms improve over the next 3 to 4 days. We would expect her to be able to transition back to her ASO. She may use Motrin for pain along with Tylenol. She is encouraged to take the Motrin with food to limit any side effects. She has an evaluation today with physical therapy, and it is recommended that she keep this appointment to start a baseline for progression. Consider MRI if not improving given prior injury ,High ankle sprain seems unlikely. Discussed fracture care and treatment. Answered all questions. Also discussed risks for non-union/ delay healing and malunion. Questions answered in laymen terms at the bedside. The diagnosis, home exercise plan and any ongoing restrictions/ recommendations reviewed. If unable to be reached in office, I recommend evaluation at nearest Emergency Room if any symptoms worsened or new symptoms develop for requiring urgent evaluation. documented in this encounter [facility] 02-28-2024 History of Present illness Narrative Physical Therapy Physical Therapy Evaluation Visit Patient Name: Feroz Dutta Today's Date: 02/28/2024 Encounter Diagnoses Name Primary? Acute left ankle pain Yes Closed nondisplaced fracture of lateral malleolus of left fibula with routine healing Visit number: 2 Subjective Feroz Dutta 63 y.o. female presents to physical therapy w/ chief c/o L ankle pain. Mechanism of Onset: rolled/fx fib @ lat mal on 12/22/23, then rolled stepping on piece of concrete in yard and hit lat. Ankle 02/01/24 returned to boot short duration, now back in ASO brace. Current deficits: pain, decreased ROM/flexibility, weakness, impaired gait Pain: 7/10 amb into session Location: lat ankle on and below lat mal Aggravating Factors: Wbing, standing, walking, ADLs/self care Relieving factors: rest, brace helps some Imaging: Fx healing well per notes Objective Gait (in ASO): mod antalgic like lacking heel-toe and push off terminal stance L ankle AROM: DF to 0, PF WNL, eversion=WNL, Inversion mod loss apprehension and pulling L ankle strength: DF= 4/5, PF=4-/5, Inversion= 4-/5, eversion 4-/5 MMT Pt quite TTP over ATF lig area. No noted swelling. LEFS= 71% impaired at IE Treatment Interventions Education: HEP education with demonstration with handout and review, Educated on Eval Findings and POC min self care Manual Therapy: STM/massage very gentle lateral ankle due to TTP, gentle PROM/stretching x 5 min Therapeutic Exercise: per BENEDICT grid, ROM, flexibility, strength x 20 min sup Gait Training: prn for improved quality working on heel-toe and push off Neuromuscular re-education: balance/proprioception work as able Modalities: US (50%) 3.0 Mhz, 1.0 w/cm2 x 8 min (lat ankle ligs), ESU IFC x 12 min end of session for pain with ice Assessment/Plan L ankle pain, decreased ROM/flexibility, decreased strength causing impaired gait, increased difficulty with ADLs/self care, decreased QOL Easily irritable symptoms with pain at fracture site and anterior ATF ligament. Able to stretch into 5* DF after talocrural mobes. Ice and e-stim at end of session to decrease pain. Will progress as able. Pt will benefit from skilled PT to address the above impairments for 2x/week for 4-8 weeks pending pt needs/progress I hereby deem this POC medically necessary. Please sign below. Date: documented in this encounter [facility] 02-20-2024 History of Present illness Narrative Images from the original note were not included. Physical Therapy Physical Therapy Evaluation Visit Patient Name: Feroz Dutta Today's Date: 02/20/2024 Encounter Diagnoses Name Primary? Acute left ankle pain Yes Closed nondisplaced fracture of lateral malleolus of left fibula with routine healing Visit number: 1 Subjective Feroz Dutta 63 y.o. female presents to physical therapy w/ chief c/o L ankle pain. Mechanism of Onset: rolled/fx fib @ lat mal on 12/22/23, then rolled stepping on piece of concrete in yard and hit lat. Ankle 02/01/24 returned to boot short duration, now back in ASO brace. Current deficits: pain, decreased ROM/flexibility, weakness, impaired gait Pain: 7/10 amb into session Location: lat ankle on and below lat mal Aggravating Factors: Wbing, standing, walking, ADLs/self care Relieving factors: rest, brace helps some Imaging: Fx healing well per notes Objective Gait (in ASO): mod antalgic like lacking heel-toe and push off terminal stance L ankle AROM: DF to 0, PF WNL, eversion=WNL, Inversion mod loss apprehension and pulling L ankle strength: DF= 4/5, PF=4-/5, Inversion= 4-/5, eversion 4-/5 MMT Pt quite TTP over ATF lig area. No noted swelling. Treatment Interventions Education: HEP education with demonstration with handout and review, Educated on Eval Findings and POC x 5 min self care Manual Therapy: STM/massage very gentle lateral ankle due to TTP, gentle PROM/stretching x 5 min Therapeutic Exercise: per BENEDICT grid, ROM, flexibility, strength x 15 min sup Gait Training: prn for improved quality working on heel-toe and push off Neuromuscular re-education: balance/proprioception work as able Modalities: US (50%) 3.0 Mhz, 1.0 w/cm2 x 8 min (lat ankle ligs), ESU IFC x 10 min end of session for pain. Assessment/Plan L ankle pain, decreased ROM/flexibility, decreased strength causing impaired gait, increased difficulty with ADLs/self care, decreased QOL Patient Goals Short Term Goal #1: pt will demo normalized quality of gait on L LE non-antalgic including up and down steps reciprical pattern Short Term Goal #2: pt will demo L ankle AROM grossly WNL pain free all planes Short Term Goal #3: pt will demo L ankle strenght grissly greater than or equal to 4+/5 MMT all planes Short Term Goal #4: pt will be ind with HEP for maintenance at DC Pt will benefit from skilled PT to address the above impairments for 2x/week for 4-8 weeks pending pt needs/progress I hereby deem this POC medically necessary. Please sign below. Date: documented in this encounter [facility] 02-06-2024 History of Present illness Narrative Images from the original note were not included. HISTORY OF PRESENT ILLNESS: FRACTURE VISIT Feroz Dutta is an 63 y.o. @ female EST PT- POSSIBLY RE-FX LT ANKLE - PT PT STATES SHE STEPPED ON A PIECE OF CONCRETE AND IT TIPPED OVER AND HIT HER ANKLE 02/01/24- WENT TO ER TX; XRAYS/NWB/CAST BOOT PREVIOUS FX S/P LT ANKLE INJURY FX 12/22/23 (6WKS 4DAYS) XRAY LT ANKLE 02/01/24 [facility] XRAY LT TIB/FIB EPIC 12/25/23 XRAY LT ANKLE 12/22/23 [facility] PAIN LATERAL ASPECT- SOME SWELLING- NOTES PAIN- +NORCO ( ER)/TYLENOL MEMO: PT STATES SHE WAS WALKING AND HER ANKLE BUCKLED AND SHE FELL ALLERGIES: Allergies Allergen Reactions Baclofen Other Reaction(s): mental confusion Cefdinir Unknown Clindamycin Unknown Iodinated Contrast Media Unknown Morphine Unknown Prochlorperazine Unknown HOME MEDICATIONS: Current Outpatient Medications Medication Instructions cyclobenzaprine (FLEXERIL) 10 mg, Oral, 3 times daily PRN gabapentin (NEURONTIN) 100 mg hydrOXYzine HCl (Atarax) 25 MG tablet Oral hyoscyamine (ANASPAZ,LEVSIN) 0.125 mg, Oral, Every 4 hours PRN promethazine (Phenergan) 25 MG tablet promethazine 25 mg tablet temazepam (Restoril) 30 MG capsule Every 24 hours traMADol (ULTRAM) 50 mg, Oral, Every 6 hours PRN warfarin (COUMADIN) 5 mg, Oral, Daily RT Review of Systems XR ankle 3+ views left Imaging Result: AP lateral and mortise view of left ankle showed a significant increase in callus formation to the distal fibular fracture compared to prior x-rays. Talus is well centered in the talar dome and ankle mortise was well preserved without instability. There was no acute bony process including but not limited to displacement of current fracture and/or fracture. Impression: Healing fracture left distal fibula XR ankle 3+ views leftOrder: [id number] Narrative History: Pain after injury Exam/Technique: Frontal lateral and oblique views of the left ankle were obtained. Comparison: 12/14/2023 Findings: The previously described fracture from the tip of the lateral malleolus is again seen and is unchanged. The remainder the visualized osseous structures are intact. Ankle mortise is normal in appearance. There is been a reduction in the soft tissue swelling seen on the prior study. IMPRESSION: Stable appearance of the nondisplaced fracture from the tip of the lateral malleolus. Otherwise normal left ankle. Finalized by Tatiana Russo MD on 02/01/2024 10:08 PM PHYSICAL EXAM: Foot/Ankle Musculoskeletal Exam Gait Antalgic: left Assistive device: crutches Gait additional comments: Wearing cam boot today Inspection Left Erythema: none Effusion: mild Edema: mild Ecchymosis: small Deformity: none Alignment: normal Palpation Left Left foot/ankle palpation is unremarkable. Increased warmth: none Masses: none Tenderness: present ATFL: moderate PTFL: moderate Distal fibula: moderate Distal fibula comment: distal tip Proximal fibula comment: none Medial malleolus comment: none Achilles tendon comment: non tender Palpation additional comments: PROXIMAL FIBULA NOT TENDER, NO PAIN TO 5TH MT BASE OR MID FOOT. NO PAIN TO CALCANEOUS. Range of Motion Left Left foot/ankle range of motion is normal and full. Strength Left Left foot/ankle strength is normal. Peroneals are affected by pain. Strength additional comments: NOT AGGRESSIVELY STRESSED, Motors ankle and foot well. Neurovascular Left Left foot/ankle neurovascular exam is normal. Pulses - PT: normal Posterior tibial: 2+ Capillary refill: warm and well-perfused Dorsum foot: normal Lateral foot: normal Plantar foot: normal Achilles: 2/4 Clonus: normal Special Tests Left Anterior drawer test: negative Talar tilt stress test: negative Ann's test: negative Special tests additional comments: GROSSLY STABLE General Constitutional: appears stated age Labored breathing: no Psychiatric: normal mood and affect Neurological: oriented x3 Skin: intact Lymphadenopathy: none Procedures Orders Placed This Encounter Procedures Ambulatory referral to Physical Therapy Standing Status: Future Standing Expiration Date: 08/05/2024 Referral Priority: Routine Referral Type: Consultation Referral Reason: Consult and Treat Referral Location: [facility] Requested Specialty: Physical Therapy Number of Visits Requested: 1 ASSESSMENT: ICD-10-CM 1. Acute left ankle pain M25.572 Ambulatory referral to Physical Therapy traMADol (Ultram) 50 MG tablet 2. Closed nondisplaced fracture of lateral malleolus of left fibula with routine healing S82.65XD Ambulatory referral to Physical Therapy traMADol (Ultram) 50 MG tablet 3. Contusion of left ankle, initial encounter S90.02XA PLAN: Reviewed x-ray from hospital at bedside, no change in position or alignment of prior fracture. Discussed injury, she was wearing her ASO reported having no pain while ambulating until she stepped on uneven concrete, which came up and struck the lateral aspect of her ankle. Recommend boot and crutches for a few days then wean to boot and again wean to ASO as symptoms tolerate. Patient requested pain medicine for bedtime. Formal physical therapy will start in two weeks Time will tell if this incidental injury will affect long-term healing. Discussed fracture care and treatment. Answered all questions. Also discussed risks for non-union/ delay healing and malunion. Questions answered in laymen terms at the bedside. The diagnosis, home exercise plan and any ongoing restrictions/ recommendations reviewed. If unable to be reached in office, I recommend evaluation at nearest Emergency Room if any symptoms worsened or new symptoms develop for requiring urgent evaluation. documented in this encounter [facility] 01-21-2024 History of Present illness Narrative Images from the original note were not included. HISTORY OF PRESENT ILLNESS: FRACTURE VISIT Feroz Dutta is an 63 y.o. @ female EST PT; MOST RECENT VISIT WITH [facility]- S/P LT ANKLE INJURY FX 12/22/23 (4WKS 2DAYS) XRAY LT TIB/FIB EPIC 12/25/23 XRAY LT ANKLE 12/22/23 [facility] C/O THROBBING LATERAL ANKLE- INCREASE SYMPTOMS WITH WB- PT FWB WITH CAST BOOT- +TYLENOL - PT NOTES SOME RT HIP PAIN TODAY FROM WALKING UNEVEN DUE TO CAST BOOT MEMO: PT STATES SHE WAS WALKING AND HER ANKLE BUCKLED AND SHE FELL ALLERGIES: Allergies Allergen Reactions Baclofen Other Reaction(s): mental confusion Cefdinir Unknown Clindamycin Unknown Iodinated Contrast Media Unknown Morphine Unknown Prochlorperazine Unknown HOME MEDICATIONS: Current Outpatient Medications Medication Instructions cyclobenzaprine (FLEXERIL) 10 mg, Oral, 3 times daily PRN gabapentin (NEURONTIN) 100 mg hydrOXYzine HCl (Atarax) 25 MG tablet Oral hyoscyamine (ANASPAZ,LEVSIN) 0.125 mg, Oral, Every 4 hours PRN promethazine (Phenergan) 25 MG tablet promethazine 25 mg tablet temazepam (Restoril) 30 MG capsule Every 24 hours traMADol (Ultram) 50 MG tablet tramadol 50 mg tablet warfarin (COUMADIN) 5 mg, Oral, Daily RT Review of Systems XR ankle 3+ views left Imaging Result: AP lateral and mortise view of left ankle showed a significant increase in callus formation to the distal fibular fracture compared to prior x-rays. Talus is well centered in the talar dome and ankle mortise was well preserved without instability. There was no acute bony process including but not limited to displacement of current fracture and/or fracture. Impression: Healing fracture left distal fibula PHYSICAL EXAM: Foot/Ankle Musculoskeletal Exam Gait Ambulation assistive devices: presents FWB in cam boot. Inspection Left Erythema: none Effusion: mild Edema: mild Ecchymosis: small Deformity: none Alignment: normal Palpation Left Left foot/ankle palpation is unremarkable. Increased warmth: none Masses: none Tenderness: present ATFL: mild CFL: mild Distal fibula: mild Proximal fibula: mild Palpation additional comments: PROXIMAL FIBULA TENDER, NO PAIN TO 5TH MT BASE OR MID FOOT. NO PAIN TO CALCANEOUS. Range of Motion Left Left foot/ankle range of motion is normal and full. Strength Left Left foot/ankle strength is normal. Peroneals are affected by pain. Strength additional comments: NOT AGGRESSIVELY STRESSED Neurovascular Left Left foot/ankle neurovascular exam is normal. Pulses - PT: normal Posterior tibial: 2+ Capillary refill: warm and well-perfused Dorsum foot: normal Lateral foot: normal Plantar foot: normal Achilles: 2/4 Clonus: normal Special Tests Special tests additional comments: GROSSLY STABLE. LIMITED EXAM WITH FRACTURE Procedures Orders Placed This Encounter Procedures XR ankle 3+ views left Order Specific Question: Reason for exam: Answer: PAIN ASSESSMENT: ICD-10-CM 1. Acute left ankle pain M25.572 XR ankle 3+ views left 2. Closed nondisplaced fracture of lateral malleolus of left fibula with routine healing S82.65XD PLAN: We have answered all the patients questions and explained the patients condition, decision making and plan including the risks and benefits associated with said plan in layman''s terms in a language the patient could understand easily. If patient''s symptoms significantly worsen and they cannot get a hold of us or their family physician, we have recommended that the patient proceed to the nearest emergency department (room). Dr. Amador obtained history and examined the patient, I am acting as scribe for Dr. Amador/kevin, PLAN: We have discussed (L) ankle xrays with patient at bedside. After examination today we will gradually wean her out of cam boot with understanding we are recommending that she replace with ASO, with understanding to be out of cam boot by Sunday. We are recommending that she start plantar and dorsiflexion along with clockwise and counter clockwise ankle rotations 10reps 4x/day. We have discussed avoiding motions including, but not limited to : no walking on uneven ground and no standing / walking without a seated break. We have discussed her HEP and restrictions and will see her back in 4 weeks to reassess her left ankle, would only recommend repeat xrays is symptoms worsen. Sampson Amador D.O. documented in this encounter [facility] 12-25-2023 History of Present illness Narrative Associated Order(s): Cast / Splint / Fx Post-Procedure Diagnose(s): Closed nondisplaced fracture of lateral malleolus of left fibula, initial encounter Images from the original note were not included. HISTORY OF PRESENT ILLNESS: EST PT Feroz Dutta is an 63 y.o. @ female. EST PT WITH NEW C/O LT ANKLE INJURY SUSTAINED 12/22/23 (3DAYS); PT STATES SHE WAS WALKING AND HER ANKLE BUCKLED AND SHE FELL- WENT TO ER TX; XRAYS/SPLINT/TRAMADOL XRAY LT TIB/FIB TODAY EPIC 12/25/23 XRAY LT ANKLE 12/22/23 [facility] NWB WITH CRUTCHES - NOTES PAIN LATERAL ANKLE - +SWELLING AND BRUISING ALLERGIES: Allergies Allergen Reactions Baclofen Other Reaction(s): mental confusion Cefdinir Unknown Clindamycin Unknown Iodinated Contrast Media Unknown Morphine Unknown Prochlorperazine Unknown HOME MEDICATIONS: Current Outpatient Medications Medication Instructions cyclobenzaprine (FLEXERIL) 10 mg, Oral, 3 times daily PRN gabapentin (NEURONTIN) 100 mg hydrOXYzine HCl (Atarax) 25 MG tablet Oral hyoscyamine (ANASPAZ,LEVSIN) 0.125 mg, Oral, Every 4 hours PRN promethazine (Phenergan) 25 MG tablet promethazine 25 mg tablet temazepam (Restoril) 30 MG capsule Every 24 hours traMADol (Ultram) 50 MG tablet tramadol 50 mg tablet traMADol (ULTRAM) 50 mg, Oral, Every 6 hours PRN warfarin (COUMADIN) 5 mg, Oral, Daily RT PHYSICAL EXAM: Foot/Ankle Musculoskeletal Exam Gait Antalgic: left Inspection Left Erythema: none Effusion: mild Edema: mild Ecchymosis: small Deformity: none Alignment: normal Palpation Left Left foot/ankle palpation is unremarkable. Increased warmth: none Masses: none Tenderness: present ATFL: moderate CFL: moderate Distal fibula: moderate Proximal fibula: moderate Palpation additional comments: PROXIMAL FIBULA TENDER, NO PAIN TO 5TH MT BASE OR MID FOOT. NO PAIN TO CALCANEOUS. Range of Motion Left Left foot/ankle range of motion is normal and full. Strength Left Left foot/ankle strength is normal. Peroneals are affected by pain. Strength additional comments: NOT AGGRESSIVELY STRESSED Neurovascular Left Left foot/ankle neurovascular exam is normal. Pulses - PT: normal Posterior tibial: 2+ Capillary refill: warm and well-perfused Dorsum foot: normal Lateral foot: normal Plantar foot: normal Achilles: 2/4 Clonus: normal Special Tests Special tests additional comments: GROSSLY STABLE. LIMITED EXAM WITH FRACTURE General Constitutional: appears stated age Labored breathing: no Psychiatric: normal mood and affect Neurological: oriented x3 Skin: intact Lymphadenopathy: none Vitals: Body mass index is 22.68 kg/m . Tobacco Use: Low Risk (12/25/2023) Patient History Smoking Tobacco Use: Never Smokeless Tobacco Use: Never Passive Exposure: Not on file Alcohol Use: Not At Risk (03/01/2023) Received from [employer] Frequency of Alcohol Consumption: Monthly or less Average Number of Drinks: 1 or 2 Frequency of Binge Drinking: Never IMAGING: XR tibia fibula 2 views left Imaging Result: XR ankle 3+ views leftOrder: [id number] Narrative XR ANKLE LT MIN 3 VWS HISTORY: Acute ankle pain COMPARISON: None. FINDINGS: Acute nondisplaced lateral malleolar fracture. Associated soft tissue swelling. Ankle mortise appears congruent. IMPRESSION: * Nondisplaced lateral malleolar fracture. Approved by Resident Amol Gallegos DO on 12/22/2023 12:31 PM Cast / Splint / Fx Date/Time: 12/25/2023 11:59 AM Performed by: MAGNO Brown Authorized by: MAGNO Brown Consent given by: patient Timeout: Immediately prior to procedure a time out was called to verify the correct patient, procedure, equipment, application support intern and site/side marked as required Injury Location details: left ankle Fracture type: lateral malleolus fracture Pre-procedure assessment neurovascularly intact Range of motion: normal Procedure Manipulation performed? no manipulation performed Immobilization: splint Splint/Brace type: cam boot Post-procedure assessment neurovascularly intact Range of motion: unchanged Patient tolerance: patient tolerated the procedure well with no immediate complications Comments A left [id number] Walking Boot, Pneumatic and/or Vacuum, With or Without Joints, Prefabricated, Off the Shelf was dispensed and applied at this visit. Due to the patient's diagnosis and related symptoms this is medically necessary for treatment. The function of this device is to restrict and limit motion, provide stabilization, immobilization, and compression to the affected area. The goals and function-of this device were explained in detail to the patient. Upon gait analysis, the device appeared to be fitting well and the patient states that the device is comfortable at this time. The patient was shown and told in detail how to properly wear and care for the device. They were able to apply the device properly themselves and able to ambulate without distress. At the time the device was dispensed, it was suitable for the condition and was not substandard. No guarantees were given and precautions were reviewed. Written instructions and warranty information was given along with the list of the current Durable Medical Equipment Supplier Guidelines. The patient was given a patient education sheet regarding signs and symptoms of a DVT and was instructed to call the doctor immediately if they experience any symptoms. Orders Placed This Encounter Procedures Cast / Splint / Fx This order was created via procedure documentation XR tibia fibula 2 views left Order Specific Question: Reason for exam: Answer: PAIN ASSESSMENT: ICD-10-CM 1. Acute left ankle pain M25.572 2. Closed nondisplaced fracture of lateral malleolus of left fibula, initial encounter S82.65XA XR tibia fibula 2 views left traMADol (Ultram) 50 MG tablet PLAN: Proximal fibular tenderness. Tib Fib xray discussed. No acute fx.. Xray from ER shows fx distal tip of Fibular.. Recommend NWB with walker and boot, if pain subsides may start to weight bear in boot. Remove to ice and shower.. pt reports known left hip OA, Eversion injury with likely ankle sprain/ fx.. pt thankful. Verbalized compliance with boot , may remove to sleep if needed and skin care. Questions answered in laymen terms at the bedside. The diagnosis, home exercise plan and any ongoing restrictions/ recommendations reviewed. If unable to be reached in office, I recommend evaluation at nearest Emergency Room if any symptoms worsened or new symptoms develop for requiring urgent evaluation. documented in this encounter [facility] 09-29-2022 Note Called pt to [facility] consultation for Cervical Stenosis. Pt states that she was seen in the ED on 09/27 and is scheduled for surgery on 10/[address] [facility] 06-13-2022 Note [facility] 01-05-2022 Note [facility] 11-17-2021 Note [facility] 10-10-2021 Note Chief Complaint consultation for thigh mass HPI Staff 60 year old female presents on consultation from Dr. Cheney for right thigh mass. Reports 6 month [...] (at bedtime), PRN (more content not included)... [facility] Comment on above: Result Comment: Elec tronically Signed By: KARYN COE, Alessia Silverman\Date and Time Signed: 10/10/21 10:36 EDT 10-06-2021 Note [facility] Evaluation + Plan note No data available for this section General Surgery [place] Evaluation note Diagnosis Acute left ankle pain- Primary Closed nondisplaced fracture of lateral malleolus of left fibula, initial encounter [facility] Diagnosis Acute left ankle pain- Primary Closed nondisplaced fracture of lateral malleolus of left fibula with routine healing [facility] Diagnosis Acute left ankle pain- Primary Closed nondisplaced fracture of lateral malleolus of left fibula with routine healing Contusion of left ankle, initial encounter [facility] Diagnosis Acute left ankle pain- Primary Closed nondisplaced fracture of lateral malleolus of left fibula with routine healing [facility] Diagnosis Acute left ankle pain- Primary Closed nondisplaced fracture of lateral malleolus of left fibula with routine healing [facility] Diagnosis Acute left ankle pain- Primary Closed nondisplaced fracture of lateral malleolus of left fibula with routine healing Sprain of anterior talofibular ligament of left ankle, initial encounter [facility] Diagnosis Acute left ankle pain- Primary Closed nondisplaced fracture of lateral malleolus of left fibula with routine healing [facility] Diagnosis Acute left ankle pain- Primary Closed nondisplaced fracture of lateral malleolus of left fibula with routine healing [facility] Diagnosis Subclavian arterial stenosis (CMS-HCC)- Primary PAD (peripheral artery disease) (CMS-HCC) Unspecified peripheral vascular disease Fibromyalgia- Primary Unspecified myalgia and myositis Primary osteoarthritis of both first carpometacarpal joints Elevated liver enzymes Other nonspecific abnormal serum enzyme levels [facility] Diagnosis Subclavian arterial stenosis (CMS-HCC)- Primary PAD (peripheral artery disease) (CMS-HCC) Unspecified peripheral vascular disease Fibromyalgia- Primary Unspecified myalgia and myositis Encounter for medication counseling [facility] Diagnosis Subclavian arterial stenosis- Primary PAD (peripheral artery disease) Unspecified peripheral vascular disease Fibromyalgia- Primary Unspecified myalgia and myositis Medication monitoring encounter Encounter for therapeutic drug monitoring Bilateral hand pain [facility] Diagnosis Sprain of anterior talofibular ligament of right ankle, initial encounter- Primary Acute right ankle pain documented in this encounter [facility]* Diagnosis Acute right ankle pain Sprain of anterior talofibular ligament of right ankle, initial encounter [facility] No data available for this section General Surgery [place] InstructionsNot on filedocumented in this encounter [facility] filedocument[facility]Not on filedocumented in [facility] No data available for this section General Surgery [place] Reason for visit Narrative* Rehabilitation - Outpatient (Routine) - Authorized Specialty Diagnoses / Procedures Referred By Alessia t Referred To Contact Physical Therapy Diagnoses Pain in left ankle and joints of left foot Nondisplaced fracture of lateral malleolus of left fibula, subsequent encounter for closed fracture with routine healing Procedures RI PHYSICAL THERAPY EVALUATION HIGH COMPLEX 45 MINS Shadi Duarte, PA [address] [place] [address] Phone: tel: fax: Moses Crockett, PT [address] [place] [address] Phone: tel: fax: Referral ID Status Reason Start Date Expiration Date V isits Requested Visits Authorized [id number] Authorized 02/06/2024 08/04/2024 30 30 [facility]* Rehabilitation - Outpatient (Routine) - Authorized Specialty Diagnoses / Procedures Referred By Alessia t Referred To Contact Physical Therapy Diagnoses Pain in left ankle and joints of left foot Nondisplaced fracture of lateral malleolus of left fibula, subsequent encounter for closed fracture with routine healing Procedures RI PHYSICAL THERAPY EVALUATION HIGH COMPLEX 45 MINS Shadi Duarte, PA [address] [place] [address] Phone: tel: fax: Moses Crockett, PT [address] [place] [address] Phone: tel: fax: Referral ID Status Reason Start Date Expiration Date V isits Requested Visits Authorized [id number] Authorized 02/06/2024 03/25/2024 30 30 [facility] Healthcare Summary Purpose Family History No Family History Records FoundNo Family History Records FoundNo Family History Records FoundNo Family History Records FoundNo Family History Records FoundNo Family History Records FoundNo Family History Records FoundNo Family History Records Found Advance Directives Date Activated Date Inactivated Comments 03/01/2023 7:18 AM 03/03/2023 6:53 PM Date Activated Date Inactivated Comments 11/03/2022 7:37 PM 11/08/2022 6:59 PM Date Activated Date Inactivated Comments 09/29/2022 1:15 AM 10/08/2022 6:36 PM Date Activated Date Inactivated Comments 10/13/2017 6:44 AM 10/19/2017 8:14 PM Date Activated Date Inactivated Comments 04/22/2024 8:40 PM 04/24/2024 1:02 PM Date Activated Date Inactivated Comments 03/01/2023 7:18 AM 03/03/2023 6:53 PM Date Activated Date Inactivated Comments 11/03/2022 7:37 PM 11/08/2022 6:59 PM Date Activated Date Inactivated Comments 09/29/2022 1:15 AM 10/08/2022 6:36 PM Date Activated Date Inactivated Comments 10/13/2017 6:44 AM 10/19/2017 8:14 PM Procedure Findings Note MR#: [id number] Pt. Name: Feroz Dutta Surgery Date: 12/28/2017 Room #: 0C Date [...] and content) DATE CREATED AUTHOR 01/27/2018 [facility] DATE CREATED AUTHOR AUTHOR'S ORGANIZ ATION 10/14/2021 [facility] DATE CREATED AUTHOR AUTHOR'S ORGANIZ ATION 09/01/2022 [facility] DATE CREATED AUTHOR AUTHOR'S ORGANIZ ATION 10/27/2022 [facility] DATE CREATED AUTHOR AUTHOR'S ORGANIZ ATION 09/13/2023 [facility] DATE CREATED AUTHOR AUTHOR'S ORGANIZ ATION 11/06/2024 [facility] DATE CREATED AUTHOR AUTHOR'S ORGANIZ ATION 12/04/2024 [facility] DATE CREATED AUTHOR AUTHOR'S ORGANIZ ATION 12/06/2024 [facility] dical Specialists [facility] Care Team (unrecognized sect ion and content) Senior Compensation Consultant Relationship Specialty Start Date End Date Ezekiel Cheney MD [address] [place] [address] PCP - General Family Medicine 08/29/22 Senior Compensation Consultant Relationship Specialty Start Date End Date Ezekiel Cheney MD [address] [place] [address] PCP - General Family Medicine 08/29/22 Senior Compensation Consultant Relationship Specialty Start Date End Date Ezekiel Cheney MD [address] [place] [facility] [place] [address] PCP - General Family Medicine 08/29/22 Senior Compensation Consultant Relationship Specialty Start Date End Date Ezekiel Cheney MD [address] [place] [facility] [place] [address] PCP - General Family Medicine 08/29/22 Senior Compensation Consultant Relationship Specialty Start Date End Date Ezekiel Cheney MD [address] [place] [facility] [place] [address] PCP - General Family Medicine 08/29/22 Senior Compensation Consultant Relationship Specialty Start Date End Date Ezekiel Cheney MD [address] [place] [facility] [place] [address] PCP - General Family Medicine 08/29/22 Senior Compensation Consultant Relationship Specialty Start Date End Date Ezekiel Cheney MD [address] [place] [facility] [place] [address] PCP - General Family Medicine 08/29/22 Senior Compensation Consultant Relationship Specialty Start Date End Date Ezekiel Cheney MD [address] [place] [facility] [place] [address] PCP - General Family Medicine 08/29/22 Senior Compensation Consultant Relationship Specialty Start Date End Date Ezekiel Cheney MD [address] [place] [facility] [place] [address] PCP - General Family Medicine 08/29/22 Senior Compensation Consultant Relationship Specialty Start Date End Date Ezekiel Cheney MD [address] [place] [facility] [place] [address] PCP - General Family Medicine 08/29/22 Senior Compensation Consultant Relationship Specialty Start Date End Date Ezekiel Cheney MD [address] [place] [facility] [place] [address] PCP - General Family Medicine 08/29/22 Senior Compensation Consultant Relationship Specialty Start Date End Date Ezekiel Cheney MD [address] [place] [facility] [place] [address] PCP - General Family Medicine 08/29/22 Senior Compensation Consultant Relationship Specialty Start Date End Date Ezekiel Cheney MD PCP - General Family Medicine 12/22/23 Martha Chaula Hematology 10/27/22 Senior Compensation Consultant Relationship Specialty Start Date End Date Ezekiel Cheney MD [address] [facility] [place] [address] PCP - General Family Medicine 04/17/24 Martha Chaula Hematology 10/27/22 Senior Compensation Consultant Relationship Specialty Start Date End Date Ezekiel Cheney MD [address] [facility] [place] [address] PCP - General Family Medicine 04/17/24 Martha Chaula Hematology 10/27/22 Senior Compensation Consultant Relationship Specialty Start Date End Date Ezekiel Cheney MD [address] [facility] [place] [address] PCP - General Family Medicine 04/17/24 Martha Chaula Hematology 10/27/22 Senior Compensation Consultant Relationship Specialty Start Date End Date Ezekiel Cheney MD [address] [place] [address] PCP - General Family Medicine 12/03/24 Senior Compensation Consultant Relationship Specialty Start Date End Date Ezekiel Cheney MD [address] [place] [address] PCP - General [facility] Medicine 12/03/24 Senior Compensation Consultant Relationship Specialty Start Date End Date Ezekiel Cheney MD [address] [place] [address] PCP - General [facility] Medicine 12/03/24 Senior Compensation Consultant Relationship Specialty Start Date End Date Ezekiel Cheney MD [address] [place] [address] PCP - General Family Medicine 12/03/24 Reason for Visit (unrecogniz ed section and content) Reason Comments Pain Specialty Diagnoses / Procedures Referred By Contac t Referred To Contact Orthopaedic Surgery Diagnoses Closed fracture of distal lateral malleolus of left fibula, initial encounter Procedures AMB REFERRAL TO ORTHOPEDIC SURGERY Brad Shearer MD [address] [place] [address] Jr. Sampson Amador, DO [address] [address] Referral ID Status Reason Start Date Expiration Date Visits Re quested Visits Authorized [id number] Closed 12/22/2023 12/21/2024 1 1 Reason Comments Pain Reason Comments Follow-up Return between 10-12 weeksHands swelling at night and dropping things Specialty Diagnoses / Procedures Referred By Contac t Referred To Contact Orthopaedic Surgery Diagnoses Sprain of right ankle, unspecified ligament, initial encounter Procedures 165 ([email or web address]) - Ambulatory referral to Orthopedic Surgery (Non[facility]) Brad Shearer MD [address] [facility] [place] [address] Phone: tel: fax: Jr. Sampson Amador, [address] [facility] [address] [place] [address] Phone: tel: fax: Referral ID Status Reason Start Date Expiration Date Visits Re quested Visits Authorized [id number] Closed 12/02/2024 12/02/2025 1 1 Reason Comments Follow-up FOR RECORDS PERTAINING TO PATIENTS WHO ARE [...] BE BASED ON THE PRIMARY CLINICAL RECORDS. [facility]. provides no warranty or guarantee of the accuracy or completeness of information in this document.
[2024-12-28 10:01] LABS: Hematocrit 38.9 % (36.0-48.0); Hemoglobin 13.1 g/dL (12.0-16.0); Immature Granulocytes Abs Auto 0.01 10^3/uL (0.00-0.03); Immature Granulocytes Pct Auto 0.1 % (0.0-0.5); Lymphocytes Absolute Auto 1.5 10^3/uL (1.2-3.8); Mean Corpuscular HGB Conc 33.7 g/dL (29.9-35.2); Mean Corpuscular Hemoglobin 31.0 pg (26.7-34.0); Mean Corpuscular Volume 92.0 fL (81.0-99.0); Platelet Count 330 10^3/uL (150-450); Red Blood Count 4.23 10^6/uL (4.20-5.40); White Blood Count 7.6 10^3/uL (4.0-11.0)
[2024-12-28 10:14] LABS: INR 2.63; Prothrombin Time 25.3 sec (9.0-11.6)
[2024-12-28 10:21] LABS: Alanine Aminotransferase 28 U/L (14-59); Albumin Globulin Ratio 0.9; Albumin Level 3.8 g/dL (3.4-5.0); Alkaline Phosphatase 125 U/L (46-116); Anion Gap 14.3; Aspartate Amino Transferase 29 U/L (15-37); Blood Urea Nitrogen 16.0 mg/dL (7.0-18.0); Calcium 9.5 mg/dL (8.5-10.1); Carbon Dioxide 26.1 mmol/L (21.0-32.0); Chloride 104 mmol/L (98-107); Estimated GFR (African America >60 (>=60 mL/min/1.73m^2); Estimated GFR (Non-African Ame >60 (>=60 mL/min/1.73m^2); Globulin 4.2 g/dL; Glucose 102 mg/dL (74-106); Potassium 3.4 mmol/L (3.5-5.1); Sodium 141 mmol/L (136-145); Total Protein 8.0 g/dL (6.4-8.2)
--- NOTE | 2024-12-28 10:52 | CT_ITS ---
The [address] [address] Patient Name: FEROZ DUTTA MRN: [id number] date: 1960 Sex: F Assigned Patient Location: ER Current Patient Location: ER Accession/Order Number: [id number] Exam Date: 12/28/2024 11:16 Report Date: 12/28/2024 11:39 At the request of: JENNIFER BROWN MD Procedure: CT abdomen pelvis wo con CT ABDOMEN AND PELVIS WITHOUT INTRAVENOUS CONTRAST: CLINICAL HISTORY: epigastric pain COMPARISON: None TECHNIQUE: Spiral images were obtained through the abdomen and pelvis without intravenous contrast. This CT exam was performed using one or more following dose reduction techniques: Automated exposure control, adjustment of the mA and/or kV according to patient size, or use of iterative reconstruction technique. FINDINGS: Lung Bases: [No acute findings.] Organs:Gallbladder has been removed. Liver spleen pancreas and adrenal glands appear unremarkable. 3 mm stone left kidney. Right kidney appears unremarkable. IVC filter is in place. Aorta appears normal in caliber. Bilateral iliac vein stents are noted.[ GI: Stomach is grossly unremarkable. Small bowel appears nondilated. No acute colonic abnormality.[ Pelvis:[Urinary bladder is grossly unremarkable. Uterus has been removed.] Peritoneum/Retroperitoneum:No free air or free fluid or lymphadenopathy.[ Abd wall/Bones:Abdominal wall demonstrates no acute findings. Osseous structures demonstrate degenerative change.[ CT/CT abdomen pelvis wo con IMPRESSION: No acute findings. Left nephrolithiasis. Impression dictated by: David Aj Jr., DCiroOCiro 12/28/2024 11:39 AM Dictation Location: [employer] Electronically authenticated by: [id number] Y Date: 12/28/2024 11:39
--- NOTE | 2024-12-28 11:08 | ED.ABDPAIN1 ---
HPI - Abdominal Pain General Chief Complaint: Abdominal Pain Stated Complaint: ABDOMINAL PAIN, NAUSEA, VOMITING, DIARRHEA Time Seen by Provider: 12/28/24 09:19 Source: patient Mode of arrival: walk-in Limitations: no limitations History of Present Illness HPI narrative: The patient presented to us with 2 days history of epigastric pain associate with nausea vomiting and diarrhea No blood in stool she noted that she has not been able to keep anything in since yesterday Epigastric pain not radiating Related Data Home Medications ?Medication ?Instructions ?Recorded ?Confirmed cyclobenzaprine 10 mg tablet 20 mg PO BEDTIME 12/14/22 12/28/24 temazepam 30 mg capsule 30 mg PO BEDTIME 12/14/22 12/28/24 hydroxyzine pamoate 25 mg capsule 25 mg PO Q6H PRN anxiety 01/17/23 12/28/24 (Vistaril) amlodipine 5 mg tablet 5 mg PO DAILY 06/01/23 12/28/24 amitriptyline 10 mg tablet 10 mg PO QPM 11/23/23 12/28/24 albuterol sulfate 90 mcg/actuation 2 puff inhalation Q4H PRN 06/18/24 12/28/24 aerosol inhaler shortness of breath or wheezing benzonatate 100 mg capsule 100 mg PO Q8H PRN cough 06/18/24 12/28/24 celecoxib 200 mg capsule 200 mg PO BID 06/18/24 12/28/24 gabapentin 300 mg capsule 300 mg PO QPM 06/18/24 12/28/24 warfarin 5 mg tablet (Jantoven) 10 mg PO DAILY 06/18/24 12/28/24 Previous Rx's ?Medication ?Instructions ?Recorded benzonatate 100 mg capsule 200 mg (2 x 100 mg) PO Q8H #14 caps 06/22/24 cetirizine 10 mg tablet 10 mg PO QD #60 tabs 06/22/24 dextromethorphan-guaifenesin 10 10 ml PO Q6H #1,000 mL 06/22/24 mg-100 mg/5 mL oral syrup warfarin 5 mg tablet (Jantoven) 5 mg PO Q24H #30 tabs 06/22/24 dicyclomine 20 mg tablet 20 mg PO QID PRN abdominal pain 12/28/24 #20 tabs famotidine 20 mg tablet (Pepcid) 20 mg PO BID #20 tabs 12/28/24 ondansetron 4 mg disintegrating 4 mg PO Q8H PRN nausea and 12/28/24 tablet vomiting 48 hours #10 tabs Allergies Allergy/AdvReac Type Severity Reaction Status Date / Time cefaclor (From Ceclor) Allergy Severe Hives Verified 12/28/24 09:08 prochlorperazine (From Allergy Intermediate Unknown Verified 12/28/24 09:08 Compazine) Iodinated Contrast Media AdvReac Severe Anaphylaxis Verified 12/28/24 09:08 ivp Allergy Severe Rash Uncoded 12/28/24 09:08 Review of Systems ROS Status of ROS 10 or more systems reviewed and unremarkable except as noted in history and below [facility] Medical History Acute hypokalemia ?E87.6 - Hypokalemia (ICD-10) Kidney calculi ?N20.0 - Calculus of kidney (ICD-10) Abdominal pain ?R10.9 - Unspecified abdominal pain (ICD-10) Acute dehydration ?E86.0 - Dehydration (ICD-10) Acute pancreatitis ?K85.90 - Acute pancreatitis without necrosis or infection, unspecified (ICD-10) Gastritis ?K29.70 - Gastritis, unspecified, without bleeding (ICD-10) Intractable abdominal pain ?R10.9 - Unspecified abdominal pain (ICD-10) Lusk filter in place ?Z95.828 - Presence of other vascular implants and grafts (ICD-10) Diverticulitis ?K57.92 - Diverticulitis of intestine, part unspecified, without perforation or abscess without bleeding (ICD-10) Gastroenteritis ?K52.9 - Noninfective gastroenteritis and colitis, unspecified (ICD-10) Stroke ?I63.9 - Cerebral infarction, unspecified (ICD-10) Migraine ?G43.909 - Migraine, unspecified, not intractable, without status migrainosus (ICD-10) Fibromyalgia syndrome ?M79.7 - Fibromyalgia (ICD-10) Thoracic outlet syndrome ?G54.0 - Brachial plexus disorders (ICD-10) Protein S deficiency ?D68.59 - Other primary thrombophilia (ICD-10) Surgical History H/O neck surgery ?Z98.890 - Other specified postprocedural states (ICD-10) H/O: hysterectomy ?Z90.710 - Acquired absence of both cervix and uterus (ICD-10) H/O knee surgery ?Z98.890 - Other specified postprocedural states (ICD-10) History of ankle surgery ?Z98.890 - Other specified postprocedural states (ICD-10) Hx of appendectomy ?Z90.49 - Acquired absence of other specified parts of digestive tract (ICD-10) Family History Father Family history of cancer Mother Family history of cancer Sister Family history of cancer Brother Family history of diabetes mellitus Social History (Updated 06/18/24 @ 18:32 by Jennifer Caraballo) Within the past year, how often did you have a drink containing alcohol: never Within the past year, how many standard drinks containing alcohol did you have on a typical day: 1 or 2 Within the past year, how often did you have six or more drinks on one occasion: never Total score: 0 Score interpretation: A score less than 3 is consistent with normal alcohol consumption. Smoking status: Never smoker Second hand tobacco smoke exposure: No Non-prescribed substance use: denies use Previous occupational history: disabled Known occupational exposures/hazards: No Highest level of school completed/degree received: high school graduate Do you want help with school or training: No Are you now , , , , never or living with a partner: In a typical week, how many times do you talk on the telephone with family, friends, or neighbors: twice per week How often do you get together with friends or relatives: once per week How often do you attend sabianist or scientology services: 4 or more times per year Do you belong to any clubs or organizations such as sabianist groups unions, fraternal or athletic groups, or school groups: no Total score: 2 Score interpretation: A score of greater than or equal to 2 indicates the lowest level of social isolation. Little interest or pleasure in doing things: not at all Feeling down, depressed, or hopeless: not at all Feel stressed/tense/nervous/anxious/difficulty sleeping: only a little Due to disability, difficulty making decisions: No Do you think of yourself as: straight/heterosexual Gender Identity: female Exam Narrative Exam Narrative: Nurses notes and vital signs reviewed and patient is not hypoxic. General: Well-appearing and in no apparent distress. Skin: Warm, dry, no pallor noted. No rash. Head: Normocephalic, atraumatic. Neck: Supple, non-tender. Eye: Pupils are equal, round and EOMI. No scleral icterus. Ears, Nose, Mouth, and Throat: TM are clear, no nasal mucosal hypertrophy. Oral mucosa is moist, no posterior oropharynx erythema, uvula is mid-line Cardiovascular: Regular Rate and Rhythm without murmur, gallop or rub. Respiratory: No accessory muscle use or respiratory distress. Lungs are clear to auscultation, no wheezing, rales or rhonchi Chest Wall: no tenderness Back: No midline thoracic or lumbar vertebral tenderness. No CVA tenderness Musculoskeletal: normal ROM, no calf or popliteal tenderness, no lower extremity edema/swelling GI: Abdomen is soft, non-distended. Normal bowel sounds. No masses appreciated. Epigastric tenderness Neurological: A&O x4. No cranial nerve dysfunction observed. No truncal ataxia. Moves all extremities. Sensation intact. Psychiatric: Cooperative and interactive. Normal mood and affect. Constitutional Vital Signs, click to edit/add: Last Vital Signs Temp 98.4 F 12/28/24 09:10 Pulse 93 H 12/28/24 12:40 Resp 20 12/28/24 11:10 BP 136/72 12/28/24 12:32 Pulse Ox 100 12/28/24 12:40 O2 Del Method Room Air 12/28/24 09:10 Course Vital Signs Vital signs: Vital Signs Temperature 98.4 F 12/28/24 09:10 Pulse Rate 101 H 12/28/24 09:10 Respiratory Rate 28 H 12/28/24 09:10 Blood Pressure 126/78 12/28/24 09:10 Pulse Oximetry 100 12/28/24 09:10 Oxygen Delivery Method Room Air 12/28/24 09:10 Temperature 98.4 F 12/28/24 09:10 Pulse Rate 93 H 12/28/24 12:40 Respiratory Rate 20 12/28/24 11:10 Blood Pressure 136/72 12/28/24 12:32 Pulse Oximetry 100 12/28/24 12:40 Oxygen Delivery Method Room Air 12/28/24 09:10 MDM - Abdominal Pain MDM Narrative Medical decision making narrative: Patient EKG showing sinus rhythm with a heart rate of [address] elevation or depression The patient CBC and chemistry showed no acute pathology it was noted that the patient x-ray as well did not show any acute pathology The patient continued to have abdominal pain and she on multiple presentation and evaluation requested that she wants to be admitted because she usually gets admitted for this but she was tolerating p.o. intake and eventually she mentioned that she would just go home with supportive care The patient to continue hydration discharged home with Zofran after the troponin was repeated twice and it was negative Hydration Zofran as well as Pepcid and Bentyl and the patient requested to take Zofran today because she is not able to go get the medication on Sunday Patient provided with Zofran to go home The patient is to follow up with primary care physician in next 2-3 days or to return to the emergency department should any of the signs or symptoms worsen or new symptoms develop. The patient agrees with the following Diagnosis and Treatment plan and the patient will be discharged home. Lab Data Labs: Lab Results 12/28/24 12/28/24 12/28/24 Range/Units 09:40 09:55 11:10 WBC 7.6 (4.0-11.0) 10^3/uL RBC 4.23 (4.20-5.40) 10^6/uL Hgb 13.1 (12.0-16.0) g/dL Hct 38.9 (36.0-48.0) % MCV 92.0 (81.0-99.0) fL MCH 31.0 (26.7-34.0) pg MCHC 33.7 (29.9-35.2) g/dL RDW 14.5 (11.0-15.0) % Plt Count 330 (150-450) 10^3/uL MPV 10.6 (9.5-13.5) fL Neut % (Auto) 69.3 (43.0-75.0) % Lymph % (Auto) 19.1 L (20.5-60.0) % [place] % (Auto) 9.7 (1.7-12.0) % Eos % (Auto) 1.0 (0.9-7.0) % Baso % (Auto) 0.8 (0.2-2.0) % Neut # (Auto) 5.3 (1.4-6.5) 10^3/uL Lymph # (Auto) 1.5 (1.2-3.8) 10^3/uL [place] # (Auto) 0.7 (0.3-0.8) 10^3/uL Eos # (Auto) 0.1 (0.0-0.7) 10^3/uL Baso # (Auto) 0.1 (0.0-0.1) 10^3/uL Abs Immat Gran (auto) 0.01 (0.00-0.03) 10^3/uL Imm/Tot Granulo (auto) 0.1 (0.0-0.5) % PT 25.3 H (9.0-11.6) sec INR 2.63 Sodium 141 (136-145) mmol/L Potassium 3.4 L (3.5-5.1) mmol/L Chloride 104 (98-107) mmol/L Carbon Dioxide 26.1 (21.0-32.0) mmol/L Anion Gap 14.3 BUN 16.0 (7.0-18.0) mg/dL Creatinine 0.74 (0.55-1.02) mg/dL Est GFR ( Amer) >60 (>=60 mL/min/1.73m^2) Est GFR (Non-Af Amer) >60 (>=60 mL/min/1.73m^2) BUN/Creatinine Ratio 21.6 Glucose 102 (74-106) mg/dL Calcium 9.5 (8.5-10.1) mg/dL Total Bilirubin 0.4 (0.2-1.0) mg/dL AST 29 (15-37) U/L ALT 28 (14-59) U/L Alkaline Phosphatase 125 H (46-116) U/L Troponin I High Sens 5.0 5.4 (4.0-51.3) pg/mL Total Protein 8.0 (6.4-8.2) g/dL Albumin 3.8 (3.4-5.0) g/dL Globulin 4.2 g/dL Albumin/Globulin Ratio 0.9 Urine Color (YELLOW) Urine Clarity (CLEAR) Urine pH (5.0-9.0) Ur Specific Parker (1.005-1.025) Urine Protein (NEG/TRACE) mg/dL Urine Glucose (UA) (NEGATIVE) mg/dL Urine Ketones (NEGATIVE) mg/dL Urine Occult Blood (NEGATIVE) Urine Nitrite (NEGATIVE) Urine Bilirubin (NEGATIVE) Urine Urobilinogen (0.2-1.0) EU/dL Ur Leukocyte Esterase (NEGATIVE) 12/28/24 Range/Units 11:28 WBC (4.0-11.0) 10^3/uL RBC (4.20-5.40) 10^6/uL Hgb (12.0-16.0) g/dL Hct (36.0-48.0) % MCV (81.0-99.0) fL MCH (26.7-34.0) pg MCHC (29.9-35.2) g/dL RDW (11.0-15.0) % Plt Count (150-450) 10^3/uL MPV (9.5-13.5) fL Neut % (Auto) (43.0-75.0) % Lymph % (Auto) (20.5-60.0) % [place] % (Auto) (1.7-12.0) % Eos % (Auto) (0.9-7.0) % Baso % (Auto) (0.2-2.0) % Neut # (Auto) (1.4-6.5) 10^3/uL Lymph # (Auto) (1.2-3.8) 10^3/uL [place] # (Auto) (0.3-0.8) 10^3/uL Eos # (Auto) (0.0-0.7) 10^3/uL Baso # (Auto) (0.0-0.1) 10^3/uL Abs Immat Gran (auto) (0.00-0.03) 10^3/uL Imm/Tot Granulo (auto) (0.0-0.5) % PT (9.0-11.6) sec INR Sodium (136-145) mmol/L Potassium (3.5-5.1) mmol/L Chloride (98-107) mmol/L Carbon Dioxide (21.0-32.0) mmol/L Anion Gap BUN (7.0-18.0) mg/dL Creatinine (0.55-1.02) mg/dL Est GFR ( Amer) (>=60 mL/min/1.73m^2) Est GFR (Non-Af Amer) (>=60 mL/min/1.73m^2) BUN/Creatinine Ratio Glucose (74-106) mg/dL Calcium (8.5-10.1) mg/dL Total Bilirubin (0.2-1.0) mg/dL AST (15-37) U/L ALT (14-59) U/L Alkaline Phosphatase (46-116) U/L Troponin I High Sens (4.0-51.3) pg/mL Total Protein (6.4-8.2) g/dL Albumin (3.4-5.0) g/dL Globulin g/dL Albumin/Globulin Ratio Urine Color Lt. yellow (YELLOW) Urine Clarity Clear (CLEAR) Urine pH 7.0 (5.0-9.0) Ur Specific Parker <=1.005 A (1.005-1.025) Urine Protein Negative (NEG/TRACE) mg/dL Urine Glucose (UA) Negative (NEGATIVE) mg/dL Urine Ketones Negative (NEGATIVE) mg/dL Urine Occult Blood Negative (NEGATIVE) Urine Nitrite Negative (NEGATIVE) Urine Bilirubin Negative (NEGATIVE) Urine Urobilinogen 0.2 (0.2-1.0) EU/dL Ur Leukocyte Esterase Negative (NEGATIVE) Discharge Plan Discharge Chief Complaint: Abdominal Pain Clinical Impression: Gastroenteritis Patient Disposition: Home, Self-Care Condition: Good Prescriptions / Home Meds: New famotidine [Pepcid] 20 mg tablet 20 mg PO BID Qty: 20 0RF dicyclomine 20 mg tablet 20 mg PO QID PRN (Reason: abdominal pain) Qty: 20 0RF ondansetron 4 mg tablet,disintegrating 4 mg PO Q8H PRN (Reason: nausea and vomiting) 2 Days Qty: 10 0RF No Action hydroxyzine pamoate [Vistaril] 25 mg capsule 25 mg PO Q6H PRN (Reason: anxiety) amlodipine 5 mg tablet 5 mg PO DAILY celecoxib 200 mg capsule 200 mg PO BID benzonatate 100 mg capsule 100 mg PO Q8H PRN (Reason: cough) gabapentin 300 mg capsule 300 mg PO QPM Rx Instructions: at 8pm albuterol sulfate 90 mcg/actuation HFA aerosol inhaler 2 puff INHALATION Q4H PRN (Reason: shortness of breath or wheezing) warfarin [Jantoven] 5 mg tablet 10 mg PO DAILY cetirizine 10 mg Tablet 10 mg PO QD Qty: 60 0RF dextromethorphan-guaifenesin 10-100 mg/5 mL Syrup 10 ml PO Q6H Qty: 1000 0RF benzonatate 100 mg Capsule 200 mg PO Q8H Qty: 14 0RF warfarin [Jantoven] 5 mg Tablet 5 mg PO Q24H Qty: 30 0RF cyclobenzaprine 10 mg tablet 20 mg PO BEDTIME temazepam 30 mg capsule 30 mg PO BEDTIME amitriptyline 10 mg tablet 10 mg PO QPM Patient Comments: DAILY AT 8 PM Print Language: Nicaraguan Instructions: Gastroenteritis (ED), Acute Nausea and Vomiting (DC), Full Liquid Diet (DC) Referrals: Travis Deras MD [Primary Care Provider, Family Practice] - 1 week Discharge Date/Time: 12/28/24 14:19
[2024-12-28 11:40] LABS: Glucose Urine UA NEGATIVE (NEGATIVE)
[2024-12-28] MEDS: MORPHINE SULFATE 2 MG/ML SYRINGE IV (11:52)
[2024-12-28] MEDS: ONDANSETRON 4 MG RAPDIS TABLET SL (14:13)
== END 2024-12-28 14:19 | disposition home or self-care (01) ==
PROVIDERS: Emergency Provider Emergency Medicine; PCP Family Medicine
DX: K52.9 Noninfective gastroenteritis and colitis, unspecified (principal); Z90.49 Acquired absence of other specified parts of digestive tract
CPT/HCPCS: 36415; 74018; 74176; 80053; 81003; 84484; 85025; 85610; 93005; 96374; 96375; 96376; 99285; J1200; J1885; J2270; J2405; J3490; Q0162

== ENCOUNTER 2025-01-24 | Outpatient (RCR) | payer MEDICARE, OTHER, SELFPAY | END 2025-02-22 23:59 | disposition home or self-care (01) | LOC: MM | PROVIDERS: PCP Family Medicine; Visit Provider Family Medicine | DX: Z51.81 Encounter for therapeutic drug level monitoring (principal); Z79.01 Long term (current) use of anticoagulants ==